=== PATIENT | male | born 1975 | race Caucasian/White ===

== ENCOUNTER 2019-05-01 15:57 | Emergency (ER) | payer MEDICARE, MEDICAID, SELFPAY ==
--- NOTE | 2019-05-01 16:05 | XR_ITS ---
WS: [id number] PORTABLE CHEST HISTORY: cp COMPARISON: 02/21/2019 Large-bore dialysis catheter entering through the RIGHT subclavian vein is similar position as the st udy from 02/22/2019. Tips of the catheter in the proximal to mid SVC. The catheter is retracted but s imilar to the prior study. Lungs are clear and well expanded. No pleural effusion or pneumothorax. Cardiac size: Normal. Mediastinum/Aorta: Normal mediastinum. No osseous abnormality seen. XR/XR chest 1V portable [id number] IMPRESSION: Dialysis catheter terminates in the proximal and mid SVC. No pneumonia.
[2019-05-01 16:11] VITALS: BP 140/74; PULSE 89; RESP 20; TEMP 37.4; O2SAT 91; BMI 41.1
--- NOTE | 2019-05-01 16:26 | ED_ITS ---
Entered by Trinh Fay, acting as scribe for Florencia Null MD May 01, 2019 15:57 HPI - General Adult General: Chief complaint: General Medical Stated complaint: Chest cath problems Time Seen by Provider: 05/01/19 16:10 Source: patient and family Mode of arrival: ambulatory Limitations: no limitations History of Present Illness: HPI narrative: 43-year-old male that states while he was sleeping he broke the hub off of his dialysis catheter in his chest. He states he no longer uses a catheter and uses peritoneal dialysis catheter currently. He states he called his doctor and they recommended to come to have it removed. complaint: need port removed Onset (ago): hour(s) (today) Location: chest Radiation: non-radiation Severity: mild Pain Consistency: constant Relieving factors: none Exacerbating factors: none Associated symptoms: Deny dyspnea, headache(s), nausea, rash or vomiting Treatments prior to arrival: none Review of Systems Const: Denies: fever, chills, body aches or change in appetite Eyes: Denies: blurry vision or eye discomfort ENMT: Denies: throat pain or dental pain Resp: Denies: shortness of breath GI: Denies: abdominal pain, nausea, vomiting or diarrhea : Denies: painful urination Musc: Denies: neck pain or back pain Skin/Breast: Denies: rash Neuro: Denies: headache Psych: Denies: depression Gene/Lymph: Denies: easy bruising All/Imm: Denies: hives PFSH ED PFSH: Statuses (acute, chronic, etc) shown below reflect problem list status as previously entered and may not be historically accurate Social History Smoking and tobacco status: former smoker Physical Exam Const: COMMON NORMALS: no apparent distress, oriented x3 and healthy appearing HENMT: COMMON NORMALS: normocephalic and head/scalp atraumatic HEAD & SCALP: normocephalic and atraumatic Eye: COMMON NORMALS: PERRL and EOMs intact bilaterally PUPIL: Yes PERRL Neck/C-Spine: COMMON NORMALS: full ROM and supple Chest: OTHER: dialysis cathter in place at anterior chest with one hub broken Resp: COMMON NORMALS: normal respiratory effort, no retractions, no use of accessory muscles and clear to auscultation bilaterally AUSCULTATION: clear to auscultation bilaterally Cardio: COMMON NORMALS: regular rate, regular rhythm and no murmurs RATE: regular rate RHYTHM: regular rhythm GI: COMMON NORMALS: normal to inspection, nondistended, normoactive bowel sounds, soft to palpation, non-tender and no masses PALPATION: Yes soft Extremity: COMMON NORMALS: normal to inspection and full ROM Neuro: COMMON NORMALS: oriented x3, moves all extremities and no focal motor deficits Psych: COMMON NORMALS: mental status grossly normal, thought process normal and cooperative THOUGHT PROCESS: normal thought process Skin: COMMON NORMALS: no rashes or lesions noted and no wounds GENERAL SKIN EXAM: no rashes or lesions noted Course ED course: Dialysis catheter right chest was removed. Area was cleaned and 6 cc of lidocaine was used to numb the skin. Hemostats were used to get the cuff of the catheter past the skin and then the catheter was very easily removed. He tolerated the procedure well with no complications. Vital Signs: Vital signs: Vital Signs Temperature 99.3 F 05/01/19 16:11 Pulse Rate 78 05/01/19 16:46 Respiratory Rate 18 05/01/19 16:46 Blood Pressure 158/75 05/01/19 16:46 Pulse Oximetry 98 05/01/19 16:46 MDM - General Adult MDM Narrative: Medical decision making narrative: Patient presents here after breaking the tip off of his dialysis catheter. He has a peritoneal dialysis cath that he now uses and does not need this use anymore. I spoke to Dr. Mcginnis who placed the catheter who recommend just taking it out. I was able to remove without any complications. Patient is well-appearing here and is stable for discharge. Lab Data: Labs: Lab Results 05/01/19 Range/Units 16:26 WBC 11.0 H (4.0-10.0) 10^3/ uL RBC 3.68 L (4.1-5.3) 10^6/u L Hgb 10.4 L (11.7-16.6) g/dL Hct 33.2 L (42.0-52.0) % MCV 90.2 (80-94) fL MCH 28.3 (28.0-34.0) pg MCHC 31.3 (30.0-36.0) g/dL RDW 15.5 H (12.1-15.1) % Plt Count 430 H (130-400) 10^3/c mm MPV 9.2 (7.4-10.4) fL Neut % (Auto) 78.6 % Lymph % (Auto) 7.7 % Early % (Auto) 9.3 % Eos % (Auto) 3.5 % Baso % (Auto) 0.5 % Neut # (Auto) 8.7 H (1.8-7.7) 10^3/u L Lymph # (Auto) 0.9 (0.8-4.8) 10^3/u L Early # (Auto) 1.0 H (0.2-0.9) 10^3/u L Eos # (Auto) 0.4 (0.0-0.8) 10^3/u L Baso # (Auto) 0.1 (0.0-0.1) 10^3/u L Nucleated RBC % (a uto) 0 % Nucleated RBCs # 0.0 /100WBC Imaging Data^: CXR: My impression: no acute abnormality Discharge Plan Discharge Patient Disposition: Home, Self-Care Clinical Impression: Complications, dialysis, catheter, mechanical Qualifiers: Encounter type: initial encounter Qualified Code(s): T82.49XA - Other complication of vascular dialysis catheter, initial encounter Condition: Stable Discharge Orders: Discharge Order (Routine); Ordered 05/01/19 Ordered By: Florencia Null Discharge Diet: Advance as tolerated Discharge Activity: Resume usual activity Patient Instructions: Peritoneal Dialysis Catheter Care (ED) Discharge Date/Time: 05/01/19 16:49 Coding Level of Care Code ED Sport Shoe Spike Assembler for Chg Fwd Exam Problem Focused The documentation recorded by the Sumeet johnson Bridget Annette, accurately reflects the service I personally performed and the decisions made by Tennille blackburn Korby, MD May 01, 2019 15:57
--- NOTE | 2019-05-01 16:29 | XRR_ITS ---
PROCEDURE INFORMATION: Exam: XR Chest, 1 View Exam date and time: 05/01/2019 4:38 PM Age: 43 years old Clinical indication: Device placement; Additional info: Dialysis cath removal TECHNIQUE: Imaging protocol: XR of the chest Views: 1 view. COMPARISON: CR XR chest 1V portable [id number] 05/01/2019 4:07 PM FINDINGS: Lungs: Increased tenting of the right diaphragm with adjacent atelectasis in the right base. The left lung is clear. Pleural space: Unremarkable. No pleural effusion. No pneumothorax. Heart/Mediastinum: Unremarkable. No cardiomegaly. Bones/joints: Unremarkable. XR/XR chest 1V portable [id number] IMPRESSION: Increased right base atelectasis.
[2019-05-01 16:46] VITALS: BP 158/75; PULSE 78; RESP 18; O2SAT 98
[2019-05-01 16:51] LABS: Basophils # 0.1 10^3/uL (0.0-0.1); Basophils % 0.5 %; Eosinophils # 0.4 10^3/uL (0.0-0.8); Eosinophils % 3.5 %; Hematocrit 33.2 % (42.0-52.0); Hemoglobin 10.4 g/dL (11.7-16.6); Lymphocytes # 0.9 10^3/uL (0.8-4.8); Lymphocytes % 7.7 %; Mean Corpuscular HGB Conc 31.3 g/dL (30.0-36.0); Mean Corpuscular Hemoglobin 28.3 pg (28.0-34.0); Mean Corpuscular Volume 90.2 fL (80-94); Mean Platelet Volume 9.2 fL (7.4-10.4); Monocytes % 9.3 %; Neutrophils # 8.7 10^3/uL (1.8-7.7); Neutrophils % 78.6 %; Nucleated Red Blood Cells % 0 %; Platelet Count 430 10^3/cmm (130-400); Red Blood Count 3.68 10^6/uL (4.1-5.3); Red Cell Distribution Width 15.5 % (12.1-15.1)
[2019-05-01 17:44] LABS: Alanine Aminotransferase 18 U/L (0-41); Albumin Level 3.9 g/dL (3.5-5.2); Alkaline Phosphatase 108 IU/L (40-130); Aspartate Amino Transferase 16 U/L (0-40); Blood Urea Nitrogen 77 mg/dL (6-20); Calcium 9.5 mg/dL (8.5-10.5); Carbon Dioxide 23 mmol/L (22-29); Chloride 104 mmol/L (98-107); Globulin 4.1 g/dL (1.3-4.6); Glomerular Filtration Rate 7.8 mL/min (90-130); Glucose 119 mg/dL (74-109); Sodium 141 mmol/L (136-145); Total Bilirubin 0.2 mg/dL (0.15-1.2)
== END 2019-05-01 16:49 | disposition home or self-care (01) ==
PROVIDERS: Emergency Provider Emergency Medicine
DX: T82.49XA Other complication of vascular dialysis catheter, initial encounter (principal); Y84.0 Cardiac catheterization as the cause of abnormal reaction of the patient, or of later complication, without mention of misadventure at the time of the procedure; Z87.891 Personal history of nicotine dependence
CPT/HCPCS: 36415; 71045; 80053; 85025; 99281; 99284

== ENCOUNTER 2019-05-16 11:23 | Outpatient (CLI) | payer MEDICARE, MEDICAID, SELFPAY ==
--- NOTE | 2019-05-16 11:27 | MR_ITS ---
WS: [id number] MRI LEFT KNEE HISTORY: PAIN IN LEFT KNEE COMPARISON: None available. This examination is significantly limited by motion. Patient was unable to remain motionless for this examination. Anterior cruciate ligament: Intact. Posterior cruciate ligament: Intact. Medial collateral ligament: Large amount of fluid surrounding the MCL. No full-thickness tear is iden tified. With this amount of motion partial tear is not excluded. There is more increased fluid at the proximal insertion site which probably represents a partial tear. Posterior lateral corner structures: Intact. Medial menisci: Intact. Normal signal, size and shape. Lateral meniscus: Intact. Normal signal, size and shape. Extensor mechanism: Distal quadriceps tendon and patellar tendons are intact. Fluid and soft tissue: There is a large suprapatellar joint effusion. Mixed signal in the fluid consi stent with hemarthrosis. There is a large amount of soft tissue edema surrounding the knee. No Alonso' s cyst. Osseous and articular structures: Patellofemoral compartment: Patellar is normally positioned. Abnormal signal in the patella. Findings are highly suspicious for patellar fracture without displacement. Abnormal signal extends predominan tly through the inferior medial patella. There is a corresponding marrow signal in the lateral femora l condyle. Patellar retinaculum is torn. Avulsions from the medial surface of the patella. Medial compartment: Small amount of increased signal in the anterior medial femoral condyle. No fract ures. Lateral compartment: Large amount of marrow edema in the lateral femoral condyle extending into the d iaphysis. Additional marrow signal abnormality in the lateral tibial plateau. Cannot exclude fracture involving the lateral tibial plateau based upon the appearance. Also suspicious for cartilage injury . This portion of the knee is significantly limited by motion. MR/MR knee LT wo con* [id number] IMPRESSION: 1. MRI LEFT knee is significantly limited by motion. 2. Marrow edema pattern consistent with transient dislocation of the patella. Acute fracture along the medial inferior patella. 3. Torn medial patellar retinaculum. 4. Suprapatellar hemarthrosis with a large amount of soft tissue edema surroun ding the knee. 5. Large amount of marrow edema in the lateral femoral metaphysis, lateral fem oral condyle and along the tibial plateau surface. 6. Suspicious for fracture involving the lateral tibial plateau with overlying cartilage injury. CT evaluation may be necessary. 7. Partial tear proximal MCL suspected.
== END 2019-05-16 11:24 | disposition home or self-care (01) ==
LOC: RADSHAW 11:23
PROVIDERS: Visit Provider Internal Medicine Nephrology
DX: S82.002A Unspecified fracture of left patella, initial encounter for closed fracture (principal); S83.8X2A Sprain of other specified parts of left knee, initial encounter; X58.XXXA Exposure to other specified factors, initial encounter; R60.9 Edema, unspecified
CPT/HCPCS: 73721

== ENCOUNTER → 2019-06-09 14:53 | Outpatient (BNVA) | payer MEDICARE, MEDICAID, SELFPAY | PROVIDERS: Visit Provider Orthopaedic Surgery | DX: S89.92XA Unspecified injury of left lower leg, initial encounter (principal); X58.XXXA Exposure to other specified factors, initial encounter | CPT/HCPCS: 73560; 73565 ==

== ENCOUNTER 2019-09-08 12:02 | Outpatient (CLI) | payer MEDICARE, MEDICAID, SELFPAY ==
--- NOTE | 2019-09-08 12:12 | XR_ITS ---
WS: [id number] Abdomen series, Flat and upright 09/08/2019 Clinical Data: VISUALIZE PLACEMENT OF PD CATHETER Comparison: None. Findings: No free air is seen beneath the diaphragms. No abnormal intra-abdominal masses or calcifica tions are seen. There is a peritoneal dialysis catheter catheter which appears to be in the central a bdomen. XR/XR abdomen min 2V [id number] Impression: Satisfactory placement of peritoneal dialysis catheter.
== END 2019-09-08 12:03 | disposition home or self-care (01) ==
LOC: RAD 12:06
PROVIDERS: Visit Provider Internal Medicine Nephrology
DX: Z45.2 Encounter for adjustment and management of vascular access device (principal)
CPT/HCPCS: 74019

== ENCOUNTER 2019-09-22 12:06 | Outpatient (CLI) | payer MEDICARE, MEDICAID, SELFPAY ==
--- NOTE | 2019-09-22 12:17 | XRR_ITS ---
PROCEDURE INFORMATION: Exam: XR Abdomen, 2 Views Exam date and time: 09/22/2019 1:12 PM Age: 44 years old Clinical indication: Condition or disease; Kidney or ureter condition; Other: Esrd/dialysis; Prior surgery; Surgery type: Renal dialysis catheter; Additional info: Esrd/dep on renal dialysis/pd catheter obstruction TECHNIQUE: Imaging protocol: XR of the abdomen. Views: 2 Views. COMPARISON: CR XR abdomen min 2V [id number] 09/08/2019 12:19 PM FINDINGS: Gastrointestinal tract: Normal. No bowel dilation. Intraperitoneal space: Normal. No free air. Bones/joints: Unremarkable for age. XR/XR abdomen min 2V [id number] IMPRESSION: No acute findings.
== END 2019-09-22 12:07 | disposition home or self-care (01) ==
LOC: RAD 12:13
PROVIDERS: Visit Provider Internal Medicine Nephrology
DX: Z99.2 Dependence on renal dialysis (principal); T85.691A Other mechanical complication of intraperitoneal dialysis catheter, initial encounter
CPT/HCPCS: 74019

== ENCOUNTER 2019-09-28 08:36 | Day surgery (SDC) | payer MEDICARE, MEDICAID, SELFPAY ==
[2019-09-28] VITALS (12 sets, daily range): BP systolic 120–152; BP diastolic 69–91; PULSE 70–96; RESP 14–22; TEMP 36.2–36.6; O2SAT 92–100
[2019-09-28] MEDS: sodium chloride 0.9% 1,000 ML 30 ML IV (09:03)
--- NOTE | 2019-09-28 09:11 | ANES.PREANE2 ---
Pre-Anesthetic Assessment Pre-Anesthetic Assessment: Height/Weight: Height 1.8 m Weight 120.202 kg Temp Pulse Resp BP Pulse Ox 97.7 F 96 18 120/69 94 09/28/19 08:43 09/28/19 08:43 09/28/19 08:43 09/28/19 08:43 09/28/19 08:43 Preop Diagnosis: Nonfunctioning peritoneal dialysis catheter Proposed Procedure: Operation Date: 09/28/19 09:55 Proposed Procedures p Laparoscopy Diagnostic/17334 [id number] T82.49xa N18.9(Not Applicable) - Jm Mcginnis MD s Peritoneal Catheter Insertion/possible(Not Applicable) - Jm Mcginnis MD s Dialysis Catheter Insertion/possible hemodialysis(Not Applicable) - Jm Mcginnis MD Familial anesthetic complications: None Was Beta Fanny taken within 24 hours: Yes Last intake: Intake Last Liquid Date 09/27/19 Last Liquid Time 23:00 Last Solid Date 09/27/19 Last Solid Time 19:30 Social: Social History: Tobacco and No alcohol Exam: Additional Exam Findings (including area of procedure): wheezes Airway: Cervical ROM: WNL MP: 3 Dentition: Chipped Pulmonary: Pulmonary: None reported CV/HEM: CV/HEM: HTN : : Chronic renal Insufficiency Comments: HTN-induced Hepatic: Hepatic: None reported GI: GI: GERD Metabolic: Metabolic: Morbid obesity Musc/skel: Musc/skel: None reported Neuropsych: Neuropsych: None reported Anesthetic Plan: ASA status: 3 Anesthesia: General Risk of > 500 ml blood loss (7ml/kg in children): No Meds/Allergies Current Medications: Current Medications Generic Name Dose Route Start Last Admin Trade Name Freq PRN Reason Stop Dose Admin Sodium Chloride 1,000 mls @ 30 ml s/hr 09/28/19 08:45 09/28/19 09:03 Sodium Chloride 0.9% IV 09/29/19 08:44 30 mls/hr .Q24H FRANCISCO Administration PFSH Anesthesia PFSH: Medical History (Updated 09/23/19 @ 09:46 by Jm Mcginnis MD) CRF (chronic renal failure) Hypertension Presence of peritoneal dialysis catheter Surgical History (Updated 09/23/19 @ 09:46 by Jm Mcginnis MD) H/O circumcision H/O hand surgery right hand with hardware S/P dialysis catheter insertion Family History Denies family history of Anesthesia complication Bleeding disorder Social History Smoking and tobacco status: former smoker Alcohol intake: never Household members: significant other Marital status: Single Current occupational status: disabled History of recent travel: Yes Details: [place] Out of state: Yes Data Anesthesia Cardiac Studies: No Data to Display
[2019-09-28] MEDS: vancomycin 1,000 MG in sodium chloride 0.9% 250 ML 250 MG IV (09:15)
--- NOTE | 2019-09-28 09:59 | W.PM.OPSUD ---
Surgery/Procedure H&P Update DATE OF PROCEDURE: September 28, 2019 DATE H&P PERFORMED: 09/23/19 H&P UPDATE INFORMATION: I have reviewed H&P completed within last 30 days, I have examined patient prior to procedure and No changes to prior documentation PREOP DIAGNOSIS: Nonfunctioning peritoneal dialysis catheter PLANNED PROCEDURE: Operation Date: 09/28/19 09:55 Proposed Procedures p Laparoscopy Diagnostic/[id number] T82.49xa N18.9(Not Applicable) - Jm Mcginnis MD s Peritoneal Catheter Insertion/possible(Not Applicable) - Jm Mcginnis MD s Dialysis Catheter Insertion/possible hemodialysis(Not Applicable) - Jm Mcgninis MD
[2019-09-28] MEDS: heparin, porcine 1,000 unit/mL INJ 10 mL 1000 UNIT IRRIGATION (11:41)
--- NOTE | 2019-09-28 15:19 | PM.OP ---
Operative Report Date of procedure: September 28, 2019 Pre-op Diagnosis: Nonfunctioning peritoneal dialysis catheter Post-op Diagnosis: Small bowel loop adherent to the peritoneal dialysis catheter resulting in kinking and nonfunctioning of the catheter. Procedure Done: Diagnostic laparoscopy, lysis of adhesions for 40 minutes. Pathology: none sent Surgeon: Jm Mcginnis Anesthesia: MAC and General Estimated blood loss (mL): 25 Condition: stable Disposition: PACU Procedure: The patient was taken the operating room and intubated under general anesthesia after IV antibiotic had been administered. The abdomen was prepped and draped in a sterile manner. Using a 15 blade a 2 cm incision was made in the left upper quadrant and using Veress needle 15 mm of pneumoperitoneum was created. Using Optiview technique the peritoneal cavity was entered, 5 mm port was placed and a 5 mm 30 degrees scope was introduced. 2 separate 5 mm ports were placed in the midclavicular line at the level of the umbilicus and the left lower quadrant under direct visualization. Examination of peritoneal cavity revealed multiple small bowel loops adherent to the peritoneal dialysis catheter as it entered into the peritoneal cavity. Using a combination of laparoscopic scissors and electrocautery, dense adhesions were taken down and small bowel loops were freed up after performing lysis of adhesions for 30 minutes until the catheter was identified. The catheter was dissected free from the surrounding adherent small bowel loops. The catheter was flushed with heparin saline and the small amount of fibrinous material within the catheter which was pushed out using J-wire. After the catheter had been flushed it was attached 100 cc saline bag and there was good inflow and outflow noted. At this point all 3 ports were removed under direct visualization and the skin was closed using 4-0 Monocryl and surgical glue. 0.5% Marcaine was infiltrated at the port sites. The patient was extubated and transferred to recovery room in stable condition.
== END 2019-09-28 13:25 | disposition home or self-care (01) ==
PROVIDERS: Visit Provider Surgery
PROC: (CPT 49320; principal; 2019-09-28 09:55)
DX: T82.49XA Other complication of vascular dialysis catheter, initial encounter (principal); K66.0 Peritoneal adhesions (postprocedural) (postinfection); I10 Essential (primary) hypertension; K21.9 Gastro-esophageal reflux disease without esophagitis; E66.01 Morbid (severe) obesity due to excess calories; Z68.37 Body mass index [BMI] 37.0-37.9, adult; Z87.891 Personal history of nicotine dependence
CPT/HCPCS: 44180; 12345; 94640; 96365; J1644; J2370; J2704; J3010; J3370; J3490; J7030; J7050

== ENCOUNTER 2019-11-08 14:54 | Outpatient (CLI) | payer MEDICARE, MEDICAID, SELFPAY ==
--- NOTE | 2019-11-08 15:00 | XRR_ITS ---
PROCEDURE INFORMATION: Exam: XR Abdomen, 1 View Exam date and time: 11/08/2019 3:19 PM Age: 44 years old Clinical indication: Device placement; Urinary device; Other: Pd catheter obstruction; Patient HX: Unable to obtain history from patient; Additional info: ? Pd catheter obstruction/dependent on renal dialysis TECHNIQUE: Imaging protocol: XR of the abdomen. Views: Frontal supine view of the abdomen. 1 View. COMPARISON: CR XR abdomen min 2V [id number] 09/22/2019 1:00 PM FINDINGS: Tubes, catheters and devices: There is peritoneal dialysis catheter tubing in the right lower abdomen coiled in the pelvis. No disruption or kinking of the tubing is identified. Gastrointestinal tract: Normal. No bowel dilation. Bones/joints: Unremarkable. XR/XR KUB [id number] IMPRESSION: Satisfactory appearance of the peritoneal dialysis catheter tubing.
== END 2019-11-08 14:55 | disposition home or self-care (01) ==
LOC: RAD 14:58
PROVIDERS: Visit Provider Internal Medicine Nephrology
DX: T85.691D Other mechanical complication of intraperitoneal dialysis catheter, subsequent encounter (principal); Z99.2 Dependence on renal dialysis; N18.6 End stage renal disease
CPT/HCPCS: 74018

== ENCOUNTER → 2019-12-05 12:00 | Outpatient (BNVA) | payer MEDICARE, MEDICAID, SELFPAY | PROVIDERS: Visit Provider Internal Medicine | DX: Z11.59 Encounter for screening for other viral diseases (principal) | CPT/HCPCS: 87635 ==

== ENCOUNTER 2019-12-12 08:03 | Day surgery (SDC) | payer MEDICARE, MEDICAID, SELFPAY ==
[2019-12-09 14:20] VITALS: BMI 37.3
[2019-12-12] VITALS (12 sets, daily range): BP systolic 104–220; BP diastolic 63–103; PULSE 54–71; RESP 15–21; TEMP 36.4–37.2; O2SAT 94–100
[2019-12-12] MEDS: sodium chloride 0.9% 1,000 ML 30 ML IV (08:49)
--- NOTE | 2019-12-12 08:50 | W.PM.OPSUD ---
Surgery/Procedure H&P Update DATE OF PROCEDURE: December 12, 2019 DATE H&P PERFORMED: 11/21/19 H&P UPDATE INFORMATION: I have reviewed H&P completed within last 30 days, I have examined patient prior to procedure and No changes to prior documentation PREOP DIAGNOSIS: Nonfunctioning peritoneal dialysis catheter PLANNED PROCEDURE: Operation Date: 12/12/19 09:30 Proposed Procedures p Laparoscopic/open peritoneal dialysis catheter removal(Not Applicable) - Jm Mcginnis MD s Laparoscopic/open peritoneal dialysis catheter placement(Not Applicable) - Jm Mcginnis MD
--- NOTE | 2019-12-12 08:52 | ANES.PREANE2 ---
Pre-Anesthetic Assessment Pre-Anesthetic Assessment: Height/Weight: Height 1.78 m Weight 117.934 kg Temp Pulse Resp BP Pulse Ox 98.9 F 71 16 220/103 98 12/12/19 08:26 12/12/19 08:26 12/12/19 08:26 12/12/19 08:26 12/12/19 08:26 Preop Diagnosis: Nonfunctioning peritoneal dialysis catheter Proposed Procedure: Operation Date: 12/12/19 09:30 Proposed Procedures p Laparoscopic/open peritoneal dialysis catheter removal(Not Applicable) - Jm Mcginnis MD s Laparoscopic/open peritoneal dialysis catheter placement(Not Applicable) - Jm Mcginnis MD Familial anesthetic complications: None Was Beta Fanny taken within 24 hours: Yes Last intake: Intake Last Liquid Date 12/12/19 Last Liquid Time 06:15 Last Solid Date 12/11/19 Last Solid Time 23:30 Social: Social History: Tobacco and No alcohol Exam: Pre-Anes Outpt Exam: alert, oriented x 3, clear to auscultation bilaterally and regular rate & rhythm Airway: Cervical ROM: WNL MP: 4 Dentition: Chipped and Loose (2-3 loose) Additional comments: large neck and tongue CV/HEM: CV/HEM: HTN : : Chronic renal failure GI: GI: GERD Metabolic: Metabolic: DM and Morbid obesity Neuropsych: Neuropsych: None reported Anesthetic Plan: ASA status: 4 Anesthesia: General and MAC Risk of > 500 ml blood loss (7ml/kg in children): No Meds/Allergies Current Medications: Current Medications Generic Name Dose Route Start Last Admin Trade Name Freq PRN Reason Stop Dose Admin Sodium Chloride 1,000 mls @ 30 ml s/hr 12/12/19 08:15 12/12/19 08:49 Sodium Chloride 0.9% IV 12/13/19 08:14 30 mls/hr .Q24H FRANCISCO Administration PFSH Anesthesia PFSH: Medical History (Updated 11/24/19 @ 16:38 by Daly Yeager LPN) CRF (chronic renal failure) Hypertension Presence of peritoneal dialysis catheter Surgical History H/O circumcision H/O hand surgery right hand with hardware S/P dialysis catheter insertion Family History Denies family history of Anesthesia complication Bleeding disorder Social History Smoking and tobacco status: former smoker Alcohol intake: never Household members: significant other Marital status: Single Current occupational status: disabled History of recent travel: Yes Details: [place] Out of state: Yes Data Anesthesia Cardiac Studies: No Data to Display
[2019-12-12 09:48] LABS: Potassium 3.9 mmol/L (3.5-5.1)
[2019-12-12] MEDS: heparin, porcine 1,000 unit/mL INJ 10 mL 10000 UNIT IRRIGATION (11:08)
--- NOTE | 2019-12-12 11:21 | PM.OP ---
Operative Report Date of procedure: December 12, 2019 Pre-op Diagnosis: Nonfunctioning peritoneal dialysis catheter Post-op Diagnosis: Nonfunctioning peritoneal dialysis catheter with significant adhesions around the catheter Procedure Done: Diagnostic laparoscopy with partial removal of existing peritoneal catheter Laparoscopic placement of peritoneal catheter for dialysis Procedure: The patient was taken to the operating room and intubated under general anesthesia after IV antibiotic had been administered. The abdomen was prepped and draped in a sterile manner. Using 15 blade a 1 cm incision was made in the left upper quadrant and a Veress needle introduced to create 15 mm of pneumoperitoneum. Using Optiview technique, a 5 mm port was placed and a 5 mm 30? scope was introduced. Another 5 mm port was placed in the left lower quadrant at the level of the umbilicus and left lower quadrant in the midclavicular line. The existing catheter was noted to be wrapped in omentum and adherent to the colon. Some of the adhesions were taken down but my concern was that it in attempt to free up the catheter there could be small bowel injury and/or bleeding which could result delay restarting his dialysis. The skin incision was therefore extended and the catheter was retracted as much as possible externally and current leaving the distal portion behind. The new pigtail peritoneal dialysis catheter was placed on the abdominal wall and the position marked over the left rectus muscle inferior to the umbilicus, an introducer needle was passed through the abdominal wall to the left of the midline inferior to the umbilicus, guidewire passed through the introducer needle, the needle was removed and a dilator sheath was placed over the guidewire and inner dilator and guidewire was removed. The pigtail catheter was introduced as the peel-away sheath was removed with the tip of the catheter in the pelvis and the cuff within the rectus muscle. The catheter was tunneled proximally to exit in the left upper quadrant. The catheter was attached to a saline bag and there was good inflow and outflow noted. 20 mL of 1:10,000 heparin was injected into the tube. The ports were removed under direct visualization and there was no bleeding from the port sites. The skin at the 5 mm port sites were closed using 4-0 Monocryl and Dermabond. Sterile dressings were applied at the catheter site. The patient was intubated and transferred to recovery room in stable condition.
--- NOTE | 2019-12-12 13:00 | ANE.PACU2 ---
Inpatient post-anesthesia follow up: Airway intact: Yes Vital signs: Temperature 97.7 F Pulse Rate 54 Respiratory Rate 18 Blood Pressure 132/79 Pulse Oximetry 94 Oxygen Delivery Me thod Room Air Oxygen Flow Rate 8 Fraction of Inspir ed Oxygen Hydration adequate: Yes Nausea and vomiting: No Pain level: 3 Mental status: Baseline
== END 2019-12-12 13:20 | disposition home or self-care (01) ==
PROVIDERS: Anesthesiology; Visit Provider Surgery
PROC: (CPT 49324; 2019-12-12 09:30)
PROC: (CPT 49422; 2019-12-12 09:30)
DX: T82.49XA Other complication of vascular dialysis catheter, initial encounter (principal); I12.9 Hypertensive chronic kidney disease with stage 1 through stage 4 chronic kidney disease, or unspecified chronic kidney disease; N18.9 Chronic kidney disease, unspecified; E11.22 Type 2 diabetes mellitus with diabetic chronic kidney disease; E66.01 Morbid (severe) obesity due to excess calories; Z99.2 Dependence on renal dialysis; Z87.891 Personal history of nicotine dependence; Y83.9 Surgical procedure, unspecified as the cause of abnormal reaction of the patient, or of later complication, without mention of misadventure at the time of the procedure; Z68.37 Body mass index [BMI] 37.0-37.9, adult; Z79.82 Long term (current) use of aspirin
CPT/HCPCS: 49324; 12345; 36415; 84132; C1750; J0690; J1644; J2704; J2710; J3010; J3490; J7030

== ENCOUNTER 2020-01-09 08:40 | Emergency (ER) | payer MEDICARE, MEDICAID, SELFPAY ==
[2020-01-09 08:47] VITALS: PULSE 91; RESP 28; TEMP 36.9; BMI 36.0
--- NOTE | 2020-01-09 09:00 | XR_ITS ---
WS: [id number] PORTABLE CHEST HISTORY: syncope COMPARISON: 05/01/2019 Lungs are clear and well expanded. No pleural effusion or pneumothorax. Cardiac size: Normal. Mediastinum/Aorta: Normal mediastinum. No osseous abnormality seen. XR/XR chest 1V portable [id number] IMPRESSION: Unremarkable portable chest.
--- NOTE | 2020-01-09 09:02 | ECG_ITS ---
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 Measurements Intervals [place] Rate: 84 P: 59 NV: 154 QRS: 19 QRSD: 100 T: 145 QT: 411 QTc: 488 Interpretive Statements SINUS RHYTHM MODERATE T-WAVE ABNORMALITY, CONSIDER LATERAL ISCHEMIA [-0.1+ mV T WAVE IN I/aVL/V5/V6] No previous ECG available for comparison Electronically Signed On 01-09-2020 19:49:30 CDT by Qi Brown M.D. [id number]
[2020-01-09 09:06] VITALS: BP 186/105; PULSE 85; RESP 20; O2SAT 95; O2SAT 96
--- NOTE | 2020-01-09 09:06 | W.ED.SOB ---
Documented by User: [email or web address] Fisher 01/09/20 17:17 HPI - SOB/Dyspnea General: Chief Complaint: Shortness of Breath/Dyspnea Stated Complaint: Blood Pressure Time Seen by Provider: 01/09/20 08:56 History of Present Illness: HPI Narrative: 44-year-old male patient presents to the emergency department due to shortness of breath. He reports, panic attack , that started last night. 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 He was sent to the emergency department at the request of his dialysis nurse. Dialysis nurse reports he is noncompliant with peritoneal dialysis, with last peritoneal dialysis treatment 6 weeks ago. Patient states recent peritoneal dialysis replacement approximately 3 weeks ago due to clogging issue. States previous peritoneal dialysis treatment , 01/05/2020. He reports when attempting to hookup to dialysis last night, he developed a panic attack. Denies previous history of anxiety problems, states blood pressure readings at home have ranged 170 over 60s which are normal for him. Patient was hypoxic at time of triage, 88 to 89%. Currently 96% on 2 L nasal cannula. MD elicited complaint: shortness of breath and anxiety Pertinent past history: other (Renal disease) Onset (ago): hour(s) (12) Context: other (Peritoneal dialysis noncompliance) Timing: progressively worsening Severity: moderate Exacerbating factors: lying flat and exertion Relieving factors: rest Known history of: other (Peritoneal dialysis) Associated symptoms: Reports no associated symptoms; Deny abdominal pain, chest congestion, chest pain, diaphoresis, fever(s), hemoptysis, nausea, palpitations or vomiting Treatment prior to arrival: none Review of Systems General: Reports: 10 or more systems reviewed and unremarkable except in HPI and below Const: Reports: fatigue; Denies: fever(s), chills, body aches or diaphoresis Eyes: Denies: blurry vision or eye redness ENMT: Denies: throat pain, dental pain or disequilibrium Card: Denies: chest pain, palpitations or irregular heart rhythm Resp: Reports: dyspnea; Denies: productive cough, non-productive cough, wheezing, pain on inspiration, hemoptysis or chest congestion GI: Denies: abdominal pain, nausea, vomiting or heartburn : Denies: dysuria Musc: Denies: back pain Skin/Breast: Denies: rash or pruritus Neuro: Denies: headache(s), weakness in extremities or behavioral changes Psych: Reports: anxiety and panic attacks (last night); Denies: depression, hopelessness, visual hallucinations, auditory hallucinations, suicidal ideation or homicidal ideation Gene/Lymph: Denies: easy bruising PFSH ED PFSH: Medical History CRF (chronic renal failure) Hypertension Presence of peritoneal dialysis catheter Surgical History H/O circumcision H/O hand surgery right hand with hardware S/P dialysis catheter insertion (12/12/19) Family History Denies family history of Anesthesia complication Bleeding disorder Social History Smoking and tobacco status: former smoker Alcohol intake: never Household members: significant other Marital status: Single Current occupational status: disabled History of recent travel: Yes Details: [place] Out of state: Yes Physical Exam Const: COMMON NORMALS: no acute distress, patient oriented x3, healthy appearing and alert GENERAL APPEARANCE: cooperative, comfortable and well hydrated HENMT: COMMON NORMALS: normocephalic, Normal external nose present and moist oral mucous membranes HEAD & SCALP: normocephalic NOSE: Normal external nose present Eye: COMMON NORMALS: Equal, round and reactive pupils present and EOMs intact bilaterally GENERAL EYE: appearance normal, both eyes and all related structures PUPIL: Yes Equal, round and reactive pupils present Neck/C-Spine: COMMON NORMALS: full ROM and no lymphadenopathy GENERAL: Yes normal visual inspection and Yes trachea midline CERVICAL SPINE: Yes cervical ROM normal Lymph: LYMPHATIC: no lymphadenopathy noted Chest: COMMONS NORMALS: normal inspection of the chest and normal palpation of entire chest wall Resp: COMMON NORMALS: normal respiratory effort and clear to auscultation bilaterally EFFORT & INSPECTION: Yes able to speak in complete sentences AUSCULTATION: clear to auscultation bilaterally Cardio: COMMON NORMALS: regular rate, regular rhythm, S1 normal heart sound present, S2 normal heart sound present and Peripheral pulses 2+ throughout RATE: regular rate RHYTHM: regular rhythm HEART SOUNDS: S1 normal heart sound present and S2 normal heart sound present PERIPHERAL PULSES: Peripheral pulses 2+ throughout GI: COMMON NORMALS: Normal to inspection, nondistended, normoactive bowel sounds present, Soft to palpation and non-tender INSPECTION: Yes normal to inspection PALPATION: Yes Soft to palpation and Yes Other GI palpation findings present (Peritoneal dialysis Catheter located to the left lower quadrant, negative redness, erythema, concerning symptoms of peritonitis) : COMMON NORMALS: Yes no CVA tenderness BLADDER/KIDNEY EXAM: Yes no CVA tenderness Back/Pelvis: COMMON NORMALS: no CVA tenderness and thoracic and lumbar spine normal to inspection Extremity: COMMON NORMALS: normal to inspection and capillary refill normal Neuro: COMMON NORMALS: patient oriented x3 and no focal motor deficits SENSORIUM/ORIENTATION: Yes alert Psych: COMMON NORMALS: mental status grossly normal, Normal thought process present and cooperative APPEARANCE: Yes grossly normal ATTITUDE: Yes calm ACTIVITY/MOTOR BEHAVIOR: Yes appropriate eye contact THOUGHT PROCESS: Normal thought process present THOUGHT CONTENT: Yes Normal thought content present Skin: COMMON NORMALS: no rashes or lesions noted and turgor normal GENERAL SKIN EXAM: no rashes or lesions noted and turgor normal Course Vital Signs: Vital signs: Vital Signs Temperature 98.4 F 01/09/20 08:47 Pulse Rate 83 01/09/20 12:05 Respiratory Rate 19 H 01/09/20 12:05 Blood Pressure 196/98 01/09/20 12:05 Pulse Oximetry 62 L 01/09/20 12:05 MDM - SOB/Dyspnea Lab Data: Labs: Lab Results 01/09/20 01/09/20 01/09/20 Range/Units 09:13 09:13 09:13 WBC 15.0 H (4.0-10.0) 10^3/ uL RBC 3.48 L (4.1-5.3) 10^6/u L Hgb 10.6 L (11.7-16.6) g/dL Hct 33.1 L (42.0-52.0) % MCV 95.1 H (80-94) fL MCH 30.5 (28.0-34.0) pg MCHC 32.0 (30.0-36.0) g/dL RDW 12.7 (12.1-15.1) % Plt Count 439 H (130-400) 10^3/c mm MPV 9.3 (7.4-10.4) fL Neut % (Auto) 81.9 % Lymph % (Auto) 6.6 % [place] % (Auto) 8.4 % Eos % (Auto) 1.7 % Baso % (Auto) 0.6 % Neut # (Auto) 12.30 H (1.8-7.7) 10^3/u L Lymph # (Auto) 1.0 (0.8-4.8) 10^3/u L [place] # (Auto) 1.3 H (0.2-0.9) 10^3/u L Eos # (Auto) 0.3 (0.0-0.8) 10^3/u L Baso # (Auto) 0.1 (0.0-0.1) 10^3/u L Nucleated RBC % (a uto) 0 % Nucleated RBCs # 0.0 /100WBC D-Dimer (0-0.59) ug/mIFE U Specimen Type Sample Site ABG pH (7.35-7.45) ABG pCO2 (35-45) mmHg ABG pO2 (80.0-100.0) mmH g ABG HCO3 (22-26) mmol/L ABG O2 Saturation ABG Base Excess (-2.0-2.0) mmol/ L Shantanu Test A-a O2 Gradient (5-10) mmHg Hematocrit (42-52) % Hgb O2 Saturation (95-100) % Carboxyhemoglobin (0.4-20.1) %THgb Methemoglobin (0.4-1.5) % Total Hemoglobin (14-18) g/dL Ionized Calcium (1.1-1.4) mmol/L O2 Delivery Device O2 Liters/Min % FiO2 % Precision Grinder External ID Sodium 139 (136-145) mmol/L Potassium 4.5 (3.5-5.1) mmol/L Chloride 102 (98-107) mmol/L Carbon Dioxide 20 L (22-29) mmol/L Anion Gap 21.5 H (5-19) BUN 55 H (6-20) mg/dL Creatinine 11.8 H* (0.7-1.2) mg/dL GFR Calculation 4.7 L (90-130) mL/min Glucose 101 (65-115) mg/dL Calculated Osmolal ity 303 H (285-295) mOsm/k g Lactate (0.5-2.2) mmol/L Calcium 9.0 (8.5-10.5) mg/dL Total Bilirubin 0.3 (0.15-1.2) mg/dL AST 10 (0-40) U/L ALT 9 (0-41) U/L Alkaline Phosphata se 99 (40-130) IU/L Troponin T Baselin e 84 H (0-15) ng/L Troponin T [address] [place] (0-15) ng/L Delta Troponin T (0-10) ABS# Total Protein 6.9 (6.6-8.7) g/dL Albumin 3.6 (3.5-5.2) g/dL Globulin 3.3 (1.3-4.6) g/dL Urine Color (Yellow) Urine Appearance (CLEAR) Urine pH (5-7) Ur Specific Gravit y (1.005-1.030) Urine Protein (Negative) Urine Glucose (UA) (Normal) Urine Ketones (Negative) Urine Blood (Negative) Urine Nitrate (Negative) Urine Bilirubin (Negative) Urine Urobilinogen (Negative) mg/dL Ur Leukocyte Juanita ase (Negative) Urine RBC (0-2) /hpf Urine WBC (0-5) /hpf Ur Squamous Epith Cells (0-5) /hpf Amorphous Sediment Urine Bacteria (NONE) /hpf 01/09/20 01/09/20 01/09/20 Range/Units 09:13 09:25 09:39 WBC (4.0-10.0) 10^3/ uL RBC (4.1-5.3) 10^6/u L Hgb (11.7-16.6) g/dL Hct (42.0-52.0) % MCV (80-94) fL MCH (28.0-34.0) pg MCHC (30.0-36.0) g/dL RDW (12.1-15.1) % Plt Count (130-400) 10^3/c mm MPV (7.4-10.4) fL Neut % (Auto) % Lymph % (Auto) % [place] % (Auto) % Eos % (Auto) % Baso % (Auto) % Neut # (Auto) (1.8-7.7) 10^3/u L Lymph # (Auto) (0.8-4.8) 10^3/u L [place] # (Auto) (0.2-0.9) 10^3/u L Eos # (Auto) (0.0-0.8) 10^3/u L Baso # (Auto) (0.0-0.1) 10^3/u L Nucleated RBC % (a uto) % Nucleated RBCs # /100WBC D-Dimer 3.60 H (0-0.59) ug/mIFE U Specimen Type Arterial Sample Site Radial, left ABG pH 7.31 L (7.35-7.45) ABG pCO2 44.4 (35-45) mmHg ABG pO2 73.4 L (80.0-100.0) mmH g ABG HCO3 22.3 (22-26) mmol/L ABG O2 Saturation 96.1 ABG Base Excess -3.9 L (-2.0-2.0) mmol/ L Shantanu Test Pos A-a O2 Gradient 9.1 (5-10) mmHg Hematocrit 32.6 L (42-52) % Hgb O2 Saturation 92.8 L (95-100) % Carboxyhemoglobin 2.3 (0.4-20.1) %THgb Methemoglobin 1.1 (0.4-1.5) % Total Hemoglobin 10.6 L (14-18) g/dL Ionized Calcium 1.2 (1.1-1.4) mmol/L O2 Delivery Device Nc O2 Liters/Min 2.0 % FiO2 28.0 % Precision Grinder External ID Gd Sodium 141.0 (136-145) mmol/L Potassium 4.3 (3.5-5.1) mmol/L Chloride (98-107) mmol/L Carbon Dioxide (22-29) mmol/L Anion Gap (5-19) BUN (6-20) mg/dL Creatinine (0.7-1.2) mg/dL GFR Calculation (90-130) mL/min Glucose 99.0 (65-115) mg/dL Calculated Osmolal ity (285-295) mOsm/k g Lactate 0.5 (0.5-2.2) mmol/L Calcium (8.5-10.5) mg/dL Total Bilirubin (0.15-1.2) mg/dL AST (0-40) U/L ALT (0-41) U/L Alkaline Phosphata se (40-130) IU/L Troponin T Baselin e (0-15) ng/L Troponin T 120 [address] [place] (0-15) ng/L Delta Troponin T (0-10) ABS# Total Protein (6.6-8.7) g/dL Albumin (3.5-5.2) g/dL Globulin (1.3-4.6) g/dL Urine Color (Yellow) Urine Appearance (CLEAR) Urine pH (5-7) Ur Specific Gravit y (1.005-1.030) Urine Protein (Negative) Urine Glucose (UA) (Normal) Urine Ketones (Negative) Urine Blood (Negative) Urine Nitrate (Negative) Urine Bilirubin (Negative) Urine Urobilinogen (Negative) mg/dL Ur Leukocyte Juanita ase (Negative) Urine RBC (0-2) /hpf Urine WBC (0-5) /hpf Ur Squamous Epith Cells (0-5) /hpf Amorphous Sediment Urine Bacteria (NONE) /hpf 01/09/20 01/09/20 Range/Units 10:16 11:20 WBC (4.0-10.0) 10^3/ uL RBC (4.1-5.3) 10^6/u L Hgb (11.7-16.6) g/dL Hct (42.0-52.0) % MCV (80-94) fL MCH (28.0-34.0) pg MCHC (30.0-36.0) g/dL RDW (12.1-15.1) % Plt Count (130-400) 10^3/c mm MPV (7.4-10.4) fL Neut % (Auto) % Lymph % (Auto) % [place] % (Auto) % Eos % (Auto) % Baso % (Auto) % Neut # (Auto) (1.8-7.7) 10^3/u L Lymph # (Auto) (0.8-4.8) 10^3/u L [place] # (Auto) (0.2-0.9) 10^3/u L Eos # (Auto) (0.0-0.8) 10^3/u L Baso # (Auto) (0.0-0.1) 10^3/u L Nucleated RBC % (a uto) % Nucleated RBCs # /100WBC D-Dimer (0-0.59) ug/mIFE U Specimen Type Sample Site ABG pH (7.35-7.45) ABG pCO2 (35-45) mmHg ABG pO2 (80.0-100.0) mmH g ABG HCO3 (22-26) mmol/L ABG O2 Saturation ABG Base Excess (-2.0-2.0) mmol/ L Shantanu Test A-a O2 Gradient (5-10) mmHg Hematocrit (42-52) % Hgb O2 Saturation (95-100) % Carboxyhemoglobin (0.4-20.1) %THgb Methemoglobin (0.4-1.5) % Total Hemoglobin (14-18) g/dL Ionized Calcium (1.1-1.4) mmol/L O2 Delivery Device O2 Liters/Min % FiO2 % Precision Grinder External ID Sodium (136-145) mmol/L Potassium (3.5-5.1) mmol/L Chloride (98-107) mmol/L Carbon Dioxide (22-29) mmol/L Anion Gap (5-19) BUN (6-20) mg/dL Creatinine (0.7-1.2) mg/dL GFR Calculation (90-130) mL/min Glucose (65-115) mg/dL Calculated Osmolal ity (285-295) mOsm/k g Lactate (0.5-2.2) mmol/L Calcium (8.5-10.5) mg/dL Total Bilirubin (0.15-1.2) mg/dL AST (0-40) U/L ALT (0-41) U/L Alkaline Phosphata se (40-130) IU/L Troponin T Baselin e (0-15) ng/L Troponin T [address] [place] 81.79 H (0-15) ng/L Delta Troponin T -2.21 L (0-10) ABS# Total Protein (6.6-8.7) g/dL Albumin (3.5-5.2) g/dL Globulin (1.3-4.6) g/dL Urine Color Yellow (Yellow) Urine Appearance Clear (CLEAR) Urine pH 6 (5-7) Ur Specific Gravit y 1.010 (1.005-1.030) Urine Protein 3+ H (Negative) Urine Glucose (UA) 1+ (Normal) Urine Ketones Negative (Negative) Urine Blood 2+ H (Negative) Urine Nitrate Negative (Negative) Urine Bilirubin Neg (Negative) Urine Urobilinogen Norm (Negative) mg/dL Ur Leukocyte Juanita ase Negative (Negative) Urine RBC Rare (0-2) /hpf Urine WBC 5-10 H (0-5) /hpf Ur Squamous Epith Cells Rare (0-5) /hpf Amorphous Sediment Not Reportable Urine Bacteria 2+ H (NONE) /hpf Imaging Data^: CXR: Radiologist's impression: [address] [address] XRay Report Signed Patient: Venkata Schaefer #: [id number] : 1975Acct#:[id number] Age/Sex: 44 / MADM Date: 01/09/20 Loc: ERRoom/Bed: Attending Dr: Ordering Provider/Ordering MD: Neda More Date of Service: 01/09/20 Procedure(s): XR chest 1V portable [id number] Accession Number(s): [id number] Report Number: [id number] WS: [id number] PORTABLE CHEST HISTORY: syncope COMPARISON: 05/01/2019 Lungs are clear and well expanded. No pleural effusion or pneumothorax. Cardiac size: Normal. Mediastinum/Aorta: Normal mediastinum. No osseous abnormality seen. XR/XR chest 1V portable 52712 IMPRESSION: Unremarkable portable chest. Dictated By:Meagan Mckay DO Signed By:Meagan Mckay DOSigned Date/Time:01/09/20919 DD/ 8 Discharge Plan Discharge Patient Disposition: Left Against Medical Advice Clinical Impression: End stage renal disease, Accelerated hypertension, Suspected 2019-nCoV infection, Hypoxia Condition: Stable Prescriptions: No Action Auryxia 210 mg iron tablet 210 mg PO TID RF: 0 RenaPlex-D 800 mcg-12.5 mg -2,000 unit tablet 1 tab PO DAILY RF: 0 pantoprazole 40 mg tablet,delayed release (DR/EC) 40 mg PO BID RF: 0 metoprolol succinate 50 mg tablet extended release 24 hr 50 mg PO BID RF: 0 nifedipine 60 mg tablet extended release 60 mg PO DAILY RF: 0 escitalopram oxalate 20 mg tablet 20 mg PO BID RF: 0 minoxidil 10 mg tablet 10 mg PO BID RF: 0 furosemide 80 mg tablet 80 mg PO BID RF: 0 metolazone 5 mg Tablet 5 mg PO EVERY OTHER DAY Qty: 0 RF: 0 docusate sodium [Colace] 100 mg capsule 100 mg PO BID Qty: 30 RF: 0 calcitriol 0.5 mcg Capsule 0.5 mcg PO DAILY RF: 0 sodium bicarbonate 650 mg Tablet 1,300 mg PO TID RF: 0 Activity Restrictions/Additional Instructions: You have elected to sign out AMA. Your peritoneal dialysis is no longer working adequately and you require hemodialysis. Additionally you are hypoxic (low oxygen levels). We suspect that you have COVID-19. Recommend that you remain quarantined for the next 14 days. If you worsen you are welcome to return. We have discussed that by refusing to do the recommended cares you are placing your life at risk. These untreated medical conditions may lead to . Discharge Date/Time: 01/09/20 12:06 Coding Level of Care Code ED Windows Consultant for Chg Fwd Exam Comprehensive Documented by User: Edwin Hansen DO 01/09/20 12:07 HPI - SOB/Dyspnea General: Chief Complaint: Shortness of Breath/Dyspnea Stated Complaint: Blood Pressure Time Seen by Provider: 01/09/20 08:56 History of Present Illness: HPI Narrative: 84-year-old male who has end-stage renal disease he evidently is alternated from port peritoneal dialysis and hemodialysis. He felt like he had a hand panic attack today and was dyspneic he did report taking all of his a.m. meds he denies any chest pain or abdominal pain he has had a cough on arrival here he was hypertensive and hypoxic. His hypoxia improved to the mid 90s with 2 L by nasal cannula on room air he was initially in the upper 80s. MD elicited complaint: shortness of breath Pertinent past history: COPD and other (End-stage renal disease hypertension) Onset (ago): hour(s) Severity: moderate Exacerbating factors: exertion Relieving factors: oxygen and rest Known history of: COPD Associated symptoms: Reports chest congestion and cough; Deny abdominal pain, chest pain, diaphoresis, dizziness, extremity pain, fever(s), hemoptysis, lightheadedness, myalgias, nausea, orthopnea, palpitations, paresthesias, polydipsia, polyuria, rash, sense of impending doom, syncope or vomiting Treatment prior to arrival: none Review of Systems Const: Denies: fever(s) or diaphoresis ENMT: Denies: throat pain, ear or mastoid pain, nasal discharge or nasal congestion Card: Denies: chest pain, palpitations, lightheadedness, syncope or orthopnea Resp: Reports: chest congestion; Denies: hemoptysis GI: Denies: abdominal pain, nausea or vomiting : Denies: flank pain, dysuria, urinary frequency or urinary urgency Musc: Denies: extremity pain Skin/Breast: Denies: rash or pruritus Neuro: Denies: dizziness Endo: Denies: polyuria or polydipsia PFSH ED PFSH: Medical History CRF (chronic renal failure) Hypertension Presence of peritoneal dialysis catheter Surgical History H/O circumcision H/O hand surgery right hand with hardware S/P dialysis catheter insertion (12/12/19) Family History Denies family history of Anesthesia complication Bleeding disorder Social History Smoking and tobacco status: former smoker Alcohol intake: never Household members: significant other Marital status: Single Current occupational status: disabled History of recent travel: Yes Details: [place] Out of state: Yes Physical Exam Const: COMMON NORMALS: no acute distress GENERAL APPEARANCE: cooperative and comfortable ORIENTATION/CONSCIOUSNESS: Yes awake, Yes oriented to person, Yes oriented to place and Yes oriented to time HENMT: COMMON NORMALS: normocephalic, atraumatic and hearing grossly normal bilaterally HEAD & SCALP: normocephalic and atraumatic Neck/C-Spine: COMMON NORMALS: no JVD Resp: AUSCULTATION: crackles and diminished lung sounds Cardio: COMMON NORMALS: no JVD, regular rate, regular rhythm and No murmurs present (Cardio) RATE: regular rate RHYTHM: regular rhythm GI: COMMON NORMALS: Soft to palpation and No hepatosplenomegaly present AUSCULTATION: Yes normoactive bowel sounds PALPATION: Yes Soft to palpation, No Tenderness to palpation present (GI), No Guarding due to palpation present (GI) and Yes No hepatosplenomegaly present Extremity: COMMON NORMALS: normal to inspection, capillary refill normal, no clubbing, cyanosis or edema, no calf tenderness and no pedal edema Neuro: SENSORIUM/ORIENTATION: Yes oriented to person, Yes oriented to place and Yes oriented to time Skin: COMMON NORMALS: no rashes or lesions noted GENERAL SKIN EXAM: no rashes or lesions noted Course Vital Signs: Vital signs: Vital Signs Temperature 98.4 F 01/09/20 08:47 Pulse Rate 83 01/09/20 12:05 Respiratory Rate 19 H 01/09/20 12:05 Blood Pressure 196/98 01/09/20 12:05 Pulse Oximetry 62 L 01/09/20 12:05 MDM - SOB/Dyspnea MDM Narrative: Medical decision making narrative: Patient is in acute renal failure and is hypoxic. I recommend that he be admitted for hemodialysis further evaluation of his shortness of breath including the potential for the patient to have COVID-19 infection. Initially both the nurse practitioner and I seen the patient the nurse practitioner had been working him up under my supervision. He was refusing a COVID-19 infection and refusing to be admitted I went to talk to the patient and he continues to refuse. He flat out refuses to listen to any advice that we give him explained to him the rationale for the recommendation. Also explained to him that if he does not get these things treated he may further deteriorate which could lead to he expressed understanding of this and regardless only wishes to have a shot for his blood pressure and wants to leave. Patient will sign out AMA. Lab Data: Labs: Lab Results 01/09/20 01/09/20 01/09/20 Range/Units 09:13 09:13 09:13 WBC 15.0 H (4.0-10.0) 10^3/ uL RBC 3.48 L (4.1-5.3) 10^6/u L Hgb 10.6 L (11.7-16.6) g/dL Hct 33.1 L (42.0-52.0) % MCV 95.1 H (80-94) fL MCH 30.5 (28.0-34.0) pg MCHC 32.0 (30.0-36.0) g/dL RDW 12.7 (12.1-15.1) % Plt Count 439 H (130-400) 10^3/c mm MPV 9.3 (7.4-10.4) fL Neut % (Auto) 81.9 % Lymph % (Auto) 6.6 % [place] % (Auto) 8.4 % Eos % (Auto) 1.7 % Baso % (Auto) 0.6 % Neut # (Auto) 12.30 H (1.8-7.7) 10^3/u L Lymph # (Auto) 1.0 (0.8-4.8) 10^3/u L [place] # (Auto) 1.3 H (0.2-0.9) 10^3/u L Eos # (Auto) 0.3 (0.0-0.8) 10^3/u L Baso # (Auto) 0.1 (0.0-0.1) 10^3/u L Nucleated RBC % (a uto) 0 % Nucleated RBCs # 0.0 /100WBC D-Dimer (0-0.59) ug/mIFE U Specimen Type Sample Site ABG pH (7.35-7.45) ABG pCO2 (35-45) mmHg ABG pO2 (80.0-100.0) mmH g ABG HCO3 (22-26) mmol/L ABG O2 Saturation ABG Base Excess (-2.0-2.0) mmol/ L Shantanu Test A-a O2 Gradient (5-10) mmHg Hematocrit (42-52) % Hgb O2 Saturation (95-100) % Carboxyhemoglobin (0.4-20.1) %THgb Methemoglobin (0.4-1.5) % Total Hemoglobin (14-18) g/dL Ionized Calcium (1.1-1.4) mmol/L O2 Delivery Device O2 Liters/Min % FiO2 % Precision Grinder External ID Sodium 139 (136-145) mmol/L Potassium 4.5 (3.5-5.1) mmol/L Chloride 102 (98-107) mmol/L Carbon Dioxide 20 L (22-29) mmol/L Anion Gap 21.5 H (5-19) BUN 55 H (6-20) mg/dL Creatinine 11.8 H* (0.7-1.2) mg/dL GFR Calculation 4.7 L (90-130) mL/min Glucose 101 (65-115) mg/dL Calculated Osmolal ity 303 H (285-295) mOsm/k g Lactate (0.5-2.2) mmol/L Calcium 9.0 (8.5-10.5) mg/dL Total Bilirubin 0.3 (0.15-1.2) mg/dL AST 10 (0-40) U/L ALT 9 (0-41) U/L Alkaline Phosphata se 99 (40-130) IU/L Troponin T Baselin e 84 H (0-15) ng/L Troponin T [address] [place] (0-15) ng/L Delta Troponin T (0-10) ABS# Total Protein 6.9 (6.6-8.7) g/dL Albumin 3.6 (3.5-5.2) g/dL Globulin 3.3 (1.3-4.6) g/dL Urine Color (Yellow) Urine Appearance (CLEAR) Urine pH (5-7) Ur Specific Gravit y (1.005-1.030) Urine Protein (Negative) Urine Glucose (UA) (Normal) Urine Ketones (Negative) Urine Blood (Negative) Urine Nitrate (Negative) Urine Bilirubin (Negative) Urine Urobilinogen (Negative) mg/dL Ur Leukocyte Juanita ase (Negative) Urine RBC (0-2) /hpf Urine WBC (0-5) /hpf Ur Squamous Epith Cells (0-5) /hpf Amorphous Sediment Urine Bacteria (NONE) /hpf 01/09/20 01/09/20 01/09/20 Range/Units 09:13 09:25 09:39 WBC (4.0-10.0) 10^3/ uL RBC (4.1-5.3) 10^6/u L Hgb (11.7-16.6) g/dL Hct (42.0-52.0) % MCV (80-94) fL MCH (28.0-34.0) pg MCHC (30.0-36.0) g/dL RDW (12.1-15.1) % Plt Count (130-400) 10^3/c mm MPV (7.4-10.4) fL Neut % (Auto) % Lymph % (Auto) % [place] % (Auto) % Eos % (Auto) % Baso % (Auto) % Neut # (Auto) (1.8-7.7) 10^3/u L Lymph # (Auto) (0.8-4.8) 10^3/u L [place] # (Auto) (0.2-0.9) 10^3/u L Eos # (Auto) (0.0-0.8) 10^3/u L Baso # (Auto) (0.0-0.1) 10^3/u L Nucleated RBC % (a uto) % Nucleated RBCs # /100WBC D-Dimer 3.60 H (0-0.59) ug/mIFE U Specimen Type Arterial Sample Site Radial, left ABG pH 7.31 L (7.35-7.45) ABG pCO2 44.4 (35-45) mmHg ABG pO2 73.4 L (80.0-100.0) mmH g ABG HCO3 22.3 (22-26) mmol/L ABG O2 Saturation 96.1 ABG Base Excess -3.9 L (-2.0-2.0) mmol/ L Shantanu Test Pos A-a O2 Gradient 9.1 (5-10) mmHg Hematocrit 32.6 L (42-52) % Hgb O2 Saturation 92.8 L (95-100) % Carboxyhemoglobin 2.3 (0.4-20.1) %THgb Methemoglobin 1.1 (0.4-1.5) % Total Hemoglobin 10.6 L (14-18) g/dL Ionized Calcium 1.2 (1.1-1.4) mmol/L O2 Delivery Device Nc O2 Liters/Min 2.0 % FiO2 28.0 % [employer] External ID Gd Sodium 141.0 (136-145) mmol/L Potassium 4.3 (3.5-5.1) mmol/L Chloride (98-107) mmol/L Carbon Dioxide (22-29) mmol/L Anion Gap (5-19) BUN (6-20) mg/dL Creatinine (0.7-1.2) mg/dL GFR Calculation (90-130) mL/min Glucose 99.0 (65-115) mg/dL Calculated Osmolal ity (285-295) mOsm/k g Lactate 0.5 (0.5-2.2) mmol/L Calcium (8.5-10.5) mg/dL Total Bilirubin (0.15-1.2) mg/dL AST (0-40) U/L ALT (0-41) U/L Alkaline Phosphata se (40-130) IU/L Troponin T Baselin e (0-15) ng/L Troponin T 120 Min [place] (0-15) ng/L Delta Troponin T (0-10) ABS# Total Protein (6.6-8.7) g/dL Albumin (3.5-5.2) g/dL Globulin (1.3-4.6) g/dL Urine Color (Yellow) Urine Appearance (CLEAR) Urine pH (5-7) Ur Specific Gravit y (1.005-1.030) Urine Protein (Negative) Urine Glucose (UA) (Normal) Urine Ketones (Negative) Urine Blood (Negative) Urine Nitrate (Negative) Urine Bilirubin (Negative) Urine Urobilinogen (Negative) mg/dL Ur Leukocyte Juanita ase (Negative) Urine RBC (0-2) /hpf Urine WBC (0-5) /hpf Ur Squamous Epith Cells (0-5) /hpf Amorphous Sediment Urine Bacteria (NONE) /hpf 01/09/20 01/09/20 Range/Units 10:16 11:20 WBC (4.0-10.0) 10^3/ uL RBC (4.1-5.3) 10^6/u L Hgb (11.7-16.6) g/dL Hct (42.0-52.0) % MCV (80-94) fL MCH (28.0-34.0) pg MCHC (30.0-36.0) g/dL RDW (12.1-15.1) % Plt Count (130-400) 10^3/c mm MPV (7.4-10.4) fL Neut % (Auto) % Lymph % (Auto) % [place] % (Auto) % Eos % (Auto) % Baso % (Auto) % Neut # (Auto) (1.8-7.7) 10^3/u L Lymph # (Auto) (0.8-4.8) 10^3/u L [place] # (Auto) (0.2-0.9) 10^3/u L Eos # (Auto) (0.0-0.8) 10^3/u L Baso # (Auto) (0.0-0.1) 10^3/u L Nucleated RBC % (a uto) % Nucleated RBCs # /100WBC D-Dimer (0-0.59) ug/mIFE U Specimen Type Sample Site ABG pH (7.35-7.45) ABG pCO2 (35-45) mmHg ABG pO2 (80.0-100.0) mmH g ABG HCO3 (22-26) mmol/L ABG O2 Saturation ABG Base Excess (-2.0-2.0) mmol/ L Shantanu Test A-a O2 Gradient (5-10) mmHg Hematocrit (42-52) % Hgb O2 Saturation (95-100) % Carboxyhemoglobin (0.4-20.1) %THgb Methemoglobin (0.4-1.5) % Total Hemoglobin (14-18) g/dL Ionized Calcium (1.1-1.4) mmol/L O2 Delivery Device O2 Liters/Min % FiO2 % Precision Grinder External ID Sodium (136-145) mmol/L Potassium (3.5-5.1) mmol/L Chloride (98-107) mmol/L Carbon Dioxide (22-29) mmol/L Anion Gap (5-19) BUN (6-20) mg/dL Creatinine (0.7-1.2) mg/dL GFR Calculation (90-130) mL/min Glucose (65-115) mg/dL Calculated Osmolal ity (285-295) mOsm/k g Lactate (0.5-2.2) mmol/L Calcium (8.5-10.5) mg/dL Total Bilirubin (0.15-1.2) mg/dL AST (0-40) U/L ALT (0-41) U/L Alkaline Phosphata se (40-130) IU/L Troponin T Baselin e (0-15) ng/L Troponin T [address] [place] 81.79 H (0-15) ng/L Delta Troponin T -2.21 L (0-10) ABS# Total Protein (6.6-8.7) g/dL Albumin (3.5-5.2) g/dL Globulin (1.3-4.6) g/dL Urine Color Yellow (Yellow) Urine Appearance Clear (CLEAR) Urine pH 6 (5-7) Ur Specific Gravit y 1.010 (1.005-1.030) Urine Protein 3+ H (Negative) Urine Glucose (UA) 1+ (Normal) Urine Ketones Negative (Negative) Urine Blood 2+ H (Negative) Urine Nitrate Negative (Negative) Urine Bilirubin Neg (Negative) Urine Urobilinogen Norm (Negative) mg/dL Ur Leukocyte Juanita ase Negative (Negative) Urine RBC Rare (0-2) /hpf Urine WBC 5-10 H (0-5) /hpf Ur Squamous Epith Cells Rare (0-5) /hpf Amorphous Sediment Not Reportable Urine Bacteria 2+ H (NONE) /hpf Discharge Plan Discharge Patient Disposition: Left Against Medical Advice Clinical Impression: End stage renal disease, Accelerated hypertension, Suspected 2019-nCoV infection, Hypoxia Condition: Stable Prescriptions: No Action Auryxia 210 mg iron tablet 210 mg PO TID RF: 0 RenaPlex-D 800 mcg-12.5 mg -2,000 unit tablet 1 tab PO DAILY RF: 0 pantoprazole 40 mg tablet,delayed release (DR/EC) 40 mg PO BID RF: 0 metoprolol succinate 50 mg tablet extended release 24 hr 50 mg PO BID RF: 0 nifedipine 60 mg tablet extended release 60 mg PO DAILY RF: 0 escitalopram oxalate 20 mg tablet 20 mg PO BID RF: 0 minoxidil 10 mg tablet 10 mg PO BID RF: 0 furosemide 80 mg tablet 80 mg PO BID RF: 0 metolazone 5 mg Tablet 5 mg PO EVERY OTHER DAY Qty: 0 RF: 0 docusate sodium [Colace] 100 mg capsule 100 mg PO BID Qty: 30 RF: 0 calcitriol 0.5 mcg Capsule 0.5 mcg PO DAILY RF: 0 sodium bicarbonate 650 mg Tablet 1,300 mg PO TID RF: 0 Activity Restrictions/Additional Instructions: You have elected to sign out AMA. Your peritoneal dialysis is no longer working adequately and you require hemodialysis. Additionally you are hypoxic (low oxygen levels). We suspect that you have COVID-19. Recommend that you remain quarantined for the next 14 days. If you worsen you are welcome to return. We have discussed that by refusing to do the recommended cares you are placing your life at risk. These untreated medical conditions may lead to . Discharge Date/Time: 01/09/20 12:06 Coding Level of Care Code ED Windows Consultant for Shilpa Fwd Exam Comprehensive
[2020-01-09 09:34] LABS: Basophils # 0.1 10^3/uL (0.0-0.1); Basophils % 0.6 %; Eosinophils # 0.3 10^3/uL (0.0-0.8); Eosinophils % 1.7 %; Hematocrit 33.1 % (42.0-52.0); Hemoglobin 10.6 g/dL (11.7-16.6); Lymphocytes % 6.6 %; Mean Corpuscular Hemoglobin 30.5 pg (28.0-34.0); Mean Corpuscular Volume 95.1 fL (80-94); Mean Platelet Volume 9.3 fL (7.4-10.4); Monocytes # 1.3 10^3/uL (0.2-0.9); Monocytes % 8.4 %; Neutrophils % 81.9 %; Nucleated Red Blood Cells % 0 %; Platelet Count 439 10^3/cmm (130-400); Red Blood Count 3.48 10^6/uL (4.1-5.3); Red Cell Distribution Width 12.7 % (12.1-15.1)
[2020-01-09 09:39] VITALS: BP 186/105; PULSE 85; RESP 18; O2SAT 95
--- NOTE | 2020-01-09 09:40 | PC.NURSE ---
Lactic drawn from IV site, taken to lab.
[2020-01-09 09:41] LABS: ABG PCO2 44.4 mmHg (35-45); ABG PH Result 7.31 (7.35-7.45); Alveolar-Arterial Oxygen Gradi 9.1 mmHg (5-10); Arterial Blood Gas Hematocrit 32.6 % (42-52); Base Excess ABG -3.9 mmol/L (-2.0-2.0); Blood Gas Allen Test Pos; Blood Gas Operator Identificat GD; Blood Gas Sample Site Radial, left; Blood Gas Sample Type Arterial; Carboxyhemoglobin 2.3 %THgb (0.4-20.1); HCO3 ABG 22.3 mmol/L (22-26); HGB O2 Sat 92.8 % (95-100); Ionized Calcium Level - ABG 1.2 mmol/L (1.1-1.4); Methemoglobin 1.1 % (0.4-1.5); Oxygen Device NC; Oxygen Saturation ABG 96.1; PO2 ABG 73.4 mmHg (80.0-100.0); Potassium Level - ABG 4.3 mmol/L (3.5-5.0); Total Hemoglobin 10.6 g/dL (14-18)
--- NOTE | 2020-01-09 09:41 | PC.NURSE ---
Read and agree with assessment.
[2020-01-09 09:57] LABS: Alanine Aminotransferase 9 U/L (0-41); Albumin Level 3.6 g/dL (3.5-5.2); Alkaline Phosphatase 99 IU/L (40-130); Anion Gap 21.5 (5-19); Aspartate Amino Transferase 10 U/L (0-40); Blood Urea Nitrogen 55 mg/dL (6-20); Carbon Dioxide 20 mmol/L (22-29); Chloride 102 mmol/L (98-107); Globulin 3.3 g/dL (1.3-4.6); Glomerular Filtration Rate 4.7 mL/min (90-130); Glucose 101 mg/dL (65-115); Osmolality Calculated 303 mOsm/kg (285-295); Potassium 4.5 mmol/L (3.5-5.1); Sodium 139 mmol/L (136-145); Total Bilirubin 0.3 mg/dL (0.15-1.2); Total Protein 6.9 g/dL (6.6-8.7)
[2020-01-09 10:00] LABS: Troponin(5th) Baseline 84 ng/L (0-15)
[2020-01-09 10:11] VITALS: BP 172/97; PULSE 79; RESP 18; O2SAT 96
[2020-01-09 10:29] LABS: Lactate (Lactic Acid level) 0.5 mmol/L (0.5-2.2)
--- NOTE | 2020-01-09 11:02 | ECG_ITS ---
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 Measurements Intervals [place] Rate: 80 P: 57 MO: 164 QRS: 22 QRSD: 91 T: 129 QT: 411 QTc: 477 Interpretive Statements SINUS RHYTHM MODERATE T-WAVE ABNORMALITY, CONSIDER LATERAL ISCHEMIA [-0.1+ mV T WAVE IN I/aVL/V5/V6] Compared to ECG 01/09/2020 09:17:39 No significant changes Electronically Signed On 01-09-2020 20:16:43 CDT by Qi Brown M.D. [id number] f
--- NOTE | 2020-01-09 11:04 | PC.NURSE ---
Pt is refusing to be admitted to hospital and COVID swab.
[2020-01-09 11:06] LABS: Bilirubin Urine Neg (Negative); Blood Urine 2+ (Negative); Glucose Urine UA 1+ (Normal); Ketones Urine Negative (Negative); Nitrate Urine Negative (Negative); Protein Urine 3+ (Negative); Urine Appearance Clear (CLEAR); Urine Color Yellow (Yellow); Urobilinogen Urine Norm (Negative); pH Urine 6 (5-7)
[2020-01-09 11:07] LABS: Add Urine Culture? Yes; Add Urine Microscopic? YES; Bacteria Urine 2+ /hpf; Leukocyte Esterase Urine Negative (Negative); RBC Urine RARE /hpf (0-2); Squamous Epithelial Cell Urine RARE /hpf (0-5)
[2020-01-09 11:58] LABS: Troponin 5 2HR 81.79 ng/L (0-15); Troponin 5 2HR Delta -2.21 ABS# (0-10)
[2020-01-09 12:05] VITALS: BP 196/98; PULSE 83; RESP 19; O2SAT 62
== END 2020-01-09 12:06 | disposition left against medical advice (07) ==
PROVIDERS: Nurse Practitioner Family; Emergency Provider Family Medicine
DX: I12.0 Hypertensive chronic kidney disease with stage 5 chronic kidney disease or end stage renal disease (principal); N18.6 End stage renal disease; Z20.828 Contact with and (suspected) exposure to other viral communicable diseases; R09.02 Hypoxemia; Z99.2 Dependence on renal dialysis; Z53.21 Procedure and treatment not carried out due to patient leaving prior to being seen by health care provider
CPT/HCPCS: 12345; 36415; 36600; 71045; 80051; 80053; 81001; 82810; 83605; 83986; 84484; 85025; 85378; 87086; 93005; 99283

== ENCOUNTER → 2020-01-18 13:41 | Outpatient (BNVA) | payer MEDICARE, MEDICAID, SELFPAY | PROVIDERS: Visit Provider Surgery | DX: Z11.59 Encounter for screening for other viral diseases (principal); N18.6 End stage renal disease | CPT/HCPCS: 87635 ==

== ENCOUNTER 2020-01-23 06:33 | Day surgery (SDC) | payer MEDICARE, MEDICAID, SELFPAY ==
--- NOTE | 2020-01-23 | SCC_ITS ---
Procedure Done: Placement of 16 [place]ese 23 cm long AshSplit tunneled hemodialysis catheter in the right internal jugular vein Fluoroscopic guided to the potential for placement of catheter 152.1 seconds of fluoroscopic guidance, for a cumulative dose of - mGy, was provided to Dr. Mcginnis by the radiology department. C-arm images of the chest were saved for the patient's permanent record. [facility]
--- NOTE | 2020-01-23 06:59 | W.PM.OPSUD ---
Surgery/Procedure H&P Update DATE OF PROCEDURE: January 23, 2020 DATE H&P PERFORMED: 01/10/20 H&P UPDATE INFORMATION: I have reviewed H&P completed within last 30 days, I have examined patient prior to procedure and No changes to prior documentation PREOP DIAGNOSIS: End-stage renal disease PLANNED PROCEDURE: Operation Date: 01/23/20 08:15 Proposed Procedures p Hemodialysis Catheter Insertion 68249 N18.6(Not Applicable) - Jm Mcginnis MD
[2020-01-23 07:02] VITALS: BP 209/121; PULSE 74; RESP 16; TEMP 37.4; O2SAT 93
[2020-01-23] MEDS: sodium chloride 0.9% 1,000 ML 30 ML IV ×2 (07:08→11:00)
--- NOTE | 2020-01-23 08:12 | ANES.PREANE2 ---
Pre-Anesthetic Assessment Pre-Anesthetic Assessment: Height/Weight: Height 1.78 m Weight 113.398 kg Temp Pulse Resp BP Pulse Ox 99.4 F 74 16 209/121 93 01/23/20 07:02 01/23/20 07:02 01/23/20 07:02 01/23/20 07:02 01/23/20 07:02 Preop Diagnosis: End-stage renal disease Proposed Procedure: Operation Date: 01/23/20 08:15 Proposed Procedures p Hemodialysis Catheter Insertion [id number] N18.6(Not Applicable) - Jm Mcginnis MD Familial anesthetic complications: None Was Beta Fanny taken within 24 hours: Yes Last intake: Intake Last Liquid Date 01/23/20 Last Liquid Time 05:15 Last Solid Date 01/22/20 Last Solid Time 22:00 Social: Social History: Tobacco and No alcohol Exam: Pre-Anes Outpt Exam: alert, oriented x 3, clear to auscultation bilaterally and regular rate & rhythm Airway: Cervical ROM: WNL MP: 4 Dentition: Loose and Other (missing) Additional comments: large neck CV/HEM: CV/HEM: HTN : : Chronic renal failure GI: GI: GERD Metabolic: Metabolic: DM Anesthetic Plan: ASA status: 4 Anesthesia: MAC Risk of > 500 ml blood loss (7ml/kg in children): No Meds/Allergies Current Medications: Current Medications Generic Name Dose Route Start Last Admin Trade Name Freq PRN Reason Stop Dose Admin Sodium Chloride 1,000 mls @ 30 ml s/hr 01/23/20 07:00 01/23/20 07:08 Sodium Chloride 0.9% IV 01/24/20 06:59 30 mls/hr .Q24H FRANCISCO Administration PFSH Anesthesia PFSH: Medical History (Updated 01/17/20 @ 00:00 by ) CRF (chronic renal failure) Hypertension Presence of peritoneal dialysis catheter Surgical History H/O circumcision H/O hand surgery right hand with hardware S/P dialysis catheter insertion (12/12/19) Family History Denies family history of Anesthesia complication Bleeding disorder Social History Smoking and tobacco status: former smoker Alcohol intake: never Household members: significant other Marital status: Single Current occupational status: disabled History of recent travel: Yes Details: [place] Out of state: Yes Data Anesthesia Cardiac Studies: No Data to Display
--- NOTE | 2020-01-23 09:12 | SC_ITS ---
WS: [id number] Limited AP C-arm image of the right chest is submitted for evaluation. Compared to prior study 2018. A right-sided IJ double lumen dialysis catheter has been placed and probably ends in the expected reg ion of the lower one third of the SVC. The visualized upper right lung appears to be fully expanded. SC/C-arm FL for CVA [id number] IMPRESSION: 1. Right-sided IJ dialysis catheter appearing to be in the expected region of t he lower one third of the SVC.
[2020-01-23] MEDS: vancomycin 1,000 MG in sodium chloride 0.9% 250 ML 250 MG IV (09:21)
[2020-01-23] MEDS: lidocaine 1% INJ 20 mL IM (11:38)
[2020-01-23] MEDS: heparin, porcine 1,000 unit/mL INJ 10 mL 10000 UNIT XX (11:39)
[2020-01-23 11:56] VITALS: BP 131/82; PULSE 73; RESP 16; TEMP 36.3; O2SAT 92
[2020-01-23] MEDS: HYDROcodone-acetaminophen 5-325 mg Tablet 1 TAB PO (12:07)
[2020-01-23 12:10] VITALS: BP 139/88; PULSE 61; RESP 16; TEMP 36.6; O2SAT 94
--- NOTE | 2020-01-23 12:20 | ANE.PACU2 ---
Inpatient post-anesthesia follow up: Airway intact: Yes Vital signs: Temperature 98 F Pulse Rate 61 Respiratory Rate 16 Blood Pressure 139/88 Pulse Oximetry 94 Oxygen Delivery Me thod Room Air Oxygen Flow Rate Fraction of Inspir ed Oxygen Hydration adequate: Yes Nausea and vomiting: No Pain level: 1 Mental status: Baseline
--- NOTE | 2020-01-24 09:10 | PM.OP ---
Operative Report Date of procedure: January 23, 2020 Pre-op Diagnosis: End-stage renal disease requiring hemodialysis Post-op diagnosis: same Procedure Done: Placement of 16 [place] 23 cm long AshSplit tunneled hemodialysis catheter in the right internal jugular vein Fluoroscopic guided to the potential for placement of catheter Ultrasound guidance to access the right internal jugular vein Pathology: none sent Surgeon: Jm Mcginnis Anesthesia: MAC Estimated blood loss (mL): 20 Condition: stable Disposition: PACU Procedure: The patient was taken to the operating room and placed under MAC after IV antibiotic had been administered. The chest and neck were prepped and draped in a sterile manner bilaterally. An ultrasound of the right internal jugular vein revealed patent flow, no thrombus identified. Using introducer needle the internal jugular vein on the right side was accessed and guidewire passed into the right atrium under fluoroscopy. Under fluoroscopy the location for the dialysis catheter was marked. Using 11 blade a skin incision was extended at the vein access site as well as the previously marked location on the right chest wall. The dialysis catheter was attached to the tunneler and passed subcutaneously, exiting at the venous access site. Serial dilators were passed over the guidewire under fluoroscopy. Finally the dilator peel-away sheath was passed over the guidewire and the inner dilator and guidewire was removed and the 23 cm long 16 [place] AshSplit tunneled dialysis catheter was introduced into the right internal jugular vein as the peel-away sheath was removed. The tip of the catheter was noted to be in the right atrium. Both ports of the catheter meri blood and flushed easily. The catheter was sutured to the skin using 2-0 Prolene and the venous access site was closed with 4-0 Monocryl and Dermabond. A total of 5 mL of 1:10,000 heparin was injected into the 2 ports under dialysis catheter. Fluoroscopic guidance and interpretation for passage of guidewire and dilator and placement of catheter in the right atrium.
== END 2020-01-23 12:35 | disposition home or self-care (01) ==
PROVIDERS: Visit Provider Surgery
PROC: (CPT 36558; principal; 2020-01-23 08:15)
DX: N18.6 End stage renal disease (principal); E11.22 Type 2 diabetes mellitus with diabetic chronic kidney disease; I12.0 Hypertensive chronic kidney disease with stage 5 chronic kidney disease or end stage renal disease; K21.9 Gastro-esophageal reflux disease without esophagitis; Z87.891 Personal history of nicotine dependence
CPT/HCPCS: 36558; 12345; 76000; 77001; 96365; C1750; J1644; J2250; J2704; J3370; J3490; J7030; J7050

== ENCOUNTER 2020-04-04 05:33 | Day surgery (SDC) | payer MEDICARE, MEDICAID, SELFPAY ==
[2020-04-03 16:00] VITALS: BMI 33.1
[2020-04-04] VITALS (9 sets, daily range): BP systolic 125–186; BP diastolic 66–87; PULSE 72–77; RESP 15–18; TEMP 37.1–37.6; O2SAT 93–100
[2020-04-04] MEDS: vancomycin 1,000 MG in sodium chloride 0.9% 250 ML 250 MG IV (06:26)
[2020-04-04] MEDS: sodium chloride 0.9% 1,000 ML 30 ML IV (06:27)
--- NOTE | 2020-04-04 06:39 | ANES.PREANE2 ---
Pre-Anesthetic Assessment Pre-Anesthetic Assessment: Height/Weight: Height 1.78 m Weight 104.78 kg Temp Pulse Resp BP Pulse Ox 99.6 F 77 18 186/77 99 04/04/20 06:18 04/04/20 06:18 04/04/20 06:18 04/04/20 06:18 04/04/20 06:18 Preop Diagnosis: nonfunctioning PD catheter Proposed Procedure: Operation Date: 04/04/20 07:10 Proposed Procedures p removal of peritoneal dialysis catheter 75089 n18.9(Not Applicable) - Jm Mcginnis MD Familial anesthetic complications: Anxiety with placement of O2 mask on induction Was Beta Fanny taken within 24 hours: N/A Last intake: Intake Last Liquid Date 04/03/20 Last Liquid Time 20:00 Last Solid Date 04/03/20 Last Solid Time 20:00 Social: Social History: No alcohol and No tobacco Exam: Pre-Anes Outpt Exam: alert, oriented x 3, clear to auscultation bilaterally and regular rate & rhythm Airway: Cervical ROM: WNL MP: 4 Dentition: Chipped, Loose and Other (missing, poor dentition) Additional comments: Very large tongue CV/HEM: CV/HEM: HTN : : Chronic renal failure GI: GI: GERD Metabolic: Metabolic: Morbid obesity Anesthetic Plan: ASA status: 4 Anesthesia: General Risk of > 500 ml blood loss (7ml/kg in children): No Meds/Allergies Current Medications: Current Medications Generic Name Dose Route Start Last Admin Trade Name Freq PRN Reason Stop Dose Admin Vancomycin HCl 1,0 00 mg/ 250 mls @ 250 mls /hr 04/04/20 05:43 04/04/20 06:26 Sodium Chloride IV 04/04/20 06:42 250 mls/hr ONCE ONE Administration Protocol Sodium Chloride 1,000 mls @ 30 ml s/hr 04/04/20 05:45 04/04/20 06:27 Sodium Chloride 0.9% IV 04/05/20 05:44 30 mls/hr .Q24H FRANCISCO Administration PFSH Anesthesia PFSH: Medical History CRF (chronic renal failure) Hypertension Surgical History H/O circumcision H/O hand surgery right hand with hardware Presence of peritoneal dialysis catheter S/P dialysis catheter insertion (12/12/19) Family History Denies family history of Anesthesia complication Bleeding disorder Social History Smoking and tobacco status: former smoker Alcohol intake: never Household members: significant other Marital status: Single Current occupational status: disabled History of recent travel: Yes Details: [place] Out of state: Yes Data Anesthesia Cardiac Studies: No Data to Display
--- NOTE | 2020-04-04 07:00 | P.HP_ITS ---
Same Day Surgery H&P Indication for Procedure/HPI DATE OF PROCEDURE: April 04, 2020 CHIEF COMPLAINT/INDICATIONFOR SURGICAL PROCEDURE: PD catheter removal PREOP DIAGNOSIS: nonfunctioning PD catheter PLANNED PROCEDRUE: Operation Date: 04/04/20 07:10 Proposed Procedures p removal of peritoneal dialysis catheter 99021 n18.9(Not Applicable) - Jm Mcginnis MD Medications/Allergies* Home Medications Medication Instructions Recorded Confirmed Type ferric citrate 210 mg iron tablet 210 mg PO TID 06/09/19 04/04/20 History furosemide 80 mg tablet 80 mg PO BID 06/09/19 04/03/20 History metoprolol succinate 50 mg 50 mg PO BID 06/09/19 04/04/20 History tablet,extended release 24 hr minoxidil 10 mg tablet 10 mg PO BID 06/09/19 04/04/20 History nifedipine 60 mg tablet,extended 60 mg PO DAILY 06/09/19 04/04/20 History release pantoprazole 40 mg tablet,delayed 40 mg PO BID tab 06/09/19 04/03/20 History release vit B,C-folic ac 800 mcg-zinc 12.5 1 tab PO DAILY 06/09/19 04/03/20 History mg-selen-D3 2,000 unit-vit E tablet sodium bicarbonate 1,300 mg PO TID 01/09/20 04/04/20 History ondansetron HCl [Zofran] See Rx Instructions .ROUTE .COMPLEX 01/23/20 04/04/20 History doxazosin 4 mg tablet 4 mg PO DAILY 02/13/20 04/03/20 History lisinopril 40 mg PO DAILY 04/03/20 04/04/20 History Allergies/Adverse Reactions Allergy/AdvReac Type Severity Reaction Status Date / Time Penicillins Allergy ALGY-Hives Verified 04/03/20 15:53 tramadol Allergy ALGY-Hives Verified 04/03/20 15:53 Current Medications: Generic Name Dose Route Start Last Admin Trade Name Freq PRN Reason Stop Dose Admin Sodium Chloride 1,000 mls @ 30 mls/hr 04/04/20 05:45 04/04/20 06:27 Sodium Chloride 0.9% IV 04/05/20 05:44 30 mls/hr .Q24H FRANCISCO Administration Pertinent History/Comorbid Conditions* Medical History (Updated 03/09/20 @ 17:55 by Jm Mcginnis MD) CRF (chronic renal failure) Hypertension Surgical History (Updated 03/09/20 @ 17:55 by Jm Mcginnis MD) H/O circumcision H/O hand surgery right hand with hardware Presence of peritoneal dialysis catheter S/P dialysis catheter insertion (12/12/19) Family History (Updated 09/23/19 @ 09:14 by Daly Yeager LPN) Denies family history of Anesthesia complication Bleeding disorder Social History Smoking and tobacco status: former smoker Alcohol intake: never Household members: significant other Marital status: Single Current occupational status: disabled History of recent travel: Yes Details: [place] Out of state: Yes Pertinent Exam Findings alert, oriented x 3 and regular rate & rhythm Recommendations Surgery/Procedure today Coding Level of Care Code Acute Production Support Developer for Shilpa Phillips
[2020-04-04] MEDS: lidocaine 1% INJ 20 mL IM (07:25)
--- NOTE | 2020-04-04 07:32 | SUR.OPER ---
0728 Dialysis catheter removed entirely and inspected by Dr. Mcginnis. Placed in [facility].
--- NOTE | 2020-04-04 07:52 | PM.OP ---
Operative Report Date of procedure: April 04, 2020 Pre-op Diagnosis: nonfunctioning PD catheter currently on hemodialysis Post-op Findings: Nonfunctioning peritoneal dialysis catheter Procedure Done: Removal of peritoneal dialysis catheter Surgeon: Jm Mcginnis Anesthesia: General Condition: stable Disposition: PACU Procedure: The patient was taken to the operating room and intubated under general anesthesia after IV antibiotic had been administered. The abdomen was prepped and draped in a sterile manner. Using a 15 blade a 2 cm incision was made to the left and inferior to the umbilicus over the left rectus muscle on the existing catheter entry site scar. Subcutaneous tissue was divided using electrocautery and the peritoneal dialysis catheter was identified in the subcutaneous tunnel. Using electrocautery the catheter was dissected from the anterior rectus sheath and the cuff was freed and the distal portion of the catheter was removed from the peritoneal cavity. The catheter was cut at the site of entry into the skin and the tunneled portion was removed after the cuff had been dissected free from the surrounding adhesions. The defect in the anterior rectus sheath was closed using [id number] 0 Vicryl suture. The wound was irrigated with saline and subcutaneous tissues were approximated using interrupted 3-0 Vicryl suture and skin was closed using running subcuticular 4-0 Monocryl suture and surgical glue. The patient was extubated and transferred to recovery room in stable condition.
--- NOTE | 2020-04-04 07:53 | SUR.PHASEI ---
PT TO PACU SLEEPY WITH GOOD RESP NOTED VSS ABD LARGE SOFT WITH EXOFIN TO MID ABD SITE AND BANDAID TO LT LOWER ABD SITE
--- NOTE | 2020-04-04 08:23 | SUR.PHASEI ---
0815 PT TO OPS MORE AWAKE DRINKING COKE WITH NO DIFFICULTY VSS.
[2020-04-04] MEDS: HYDROcodone-acetaminophen 5-325 mg Tablet 1 TAB PO (08:53)
--- NOTE | 2020-04-04 16:08 | ANE.PACU2 ---
Inpatient post-anesthesia follow up: Airway intact: Yes Vital signs: Temperature 99.2 F Pulse Rate 72 Respiratory Rate 18 Blood Pressure 142/78 Pulse Oximetry 94 Oxygen Delivery Me thod Room Air Oxygen Flow Rate 8 Fraction of Inspir ed Oxygen Hydration adequate: Yes Nausea and vomiting: No Pain level: 3 Mental status: Baseline
== END 2020-04-04 09:10 | disposition home or self-care (01) ==
PROVIDERS: Visit Provider Surgery
PROC: (CPT 49422; principal; 2020-04-04 07:00)
DX: T85.611A Breakdown (mechanical) of intraperitoneal dialysis catheter, initial encounter (principal); F41.9 Anxiety disorder, unspecified; I10 Essential (primary) hypertension; K21.9 Gastro-esophageal reflux disease without esophagitis; E66.01 Morbid (severe) obesity due to excess calories; Z68.31 Body mass index [BMI] 31.0-31.9, adult; Z87.891 Personal history of nicotine dependence
CPT/HCPCS: 49422; 12345; J2250; J2704; J3010; J3370; J3490; J7030; J7050

== ENCOUNTER → 2020-08-01 10:46 | Outpatient (BNVA) | payer MEDICARE, MEDICAID, SELFPAY | PROVIDERS: PCP Nurse Practitioner Family; Visit Provider Nurse Practitioner Family | DX: I10 Essential (primary) hypertension (principal); E55.9 Vitamin D deficiency, unspecified; N18.9 Chronic kidney disease, unspecified; Z79.899 Other long term (current) drug therapy; Z13.6 Encounter for screening for cardiovascular disorders | CPT/HCPCS: 80053; 80061; 82306; 83036; 84439; 84443; 85025 ==

== ENCOUNTER → 2020-08-07 14:42 | Outpatient (BNVA) | payer MEDICARE, MEDICAID, SELFPAY | PROVIDERS: PCP Nurse Practitioner Family; Visit Provider Nurse Practitioner Family | DX: J22 Unspecified acute lower respiratory infection (principal); J44.9 Chronic obstructive pulmonary disease, unspecified; R09.02 Hypoxemia; F41.9 Anxiety disorder, unspecified; F32.9 Major depressive disorder, single episode, unspecified | CPT/HCPCS: 71046 ==

== ENCOUNTER → 2020-08-20 14:53 | Outpatient (BNVA) | payer MEDICARE, MEDICAID, SELFPAY | PROVIDERS: PCP Nurse Practitioner Family; Visit Provider Family Medicine | DX: Z01.818 Encounter for other preprocedural examination (principal); I51.7 Cardiomegaly; I10 Essential (primary) hypertension | CPT/HCPCS: 71046; 80053; 83880; 84443; 85025; 85610 ==

== ENCOUNTER → 2020-11-13 10:00 | Outpatient (BNVA) | payer MEDICARE, MEDICAID, SELFPAY | PROVIDERS: PCP Nurse Practitioner Family; Visit Provider Family Medicine | DX: F51.01 Primary insomnia (principal); F41.9 Anxiety disorder, unspecified; F32.9 Major depressive disorder, single episode, unspecified; J44.9 Chronic obstructive pulmonary disease, unspecified; N18.5 Chronic kidney disease, stage 5; I50.30 Unspecified diastolic (congestive) heart failure; I48.91 Unspecified atrial fibrillation; I10 Essential (primary) hypertension | CPT/HCPCS: 85025 ==

== ENCOUNTER → 2020-12-26 11:27 | Outpatient (BNVA) | payer MEDICARE, MEDICAID, SELFPAY | PROVIDERS: PCP Nurse Practitioner Family; Visit Provider Specialist | DX: M25.512 Pain in left shoulder (principal) | CPT/HCPCS: 73030 ==

== ENCOUNTER 2020-12-30 05:12 | Inpatient (IN) | payer MEDICARE, MEDICAID, SELFPAY ==
[2020-12-30] VITALS (60 sets, daily range): BP systolic 138–284; BP diastolic 67–160; PULSE 52–129; RESP 18–37; TEMP 36.5–38.9; O2SAT 15–100; BMI 34.4; BMI 34.1
--- NOTE | 2020-12-30 05:24 | XRR_ITS ---
PROCEDURE INFORMATION: Exam: XR Chest Exam date and time: 12/30/2020 5:24 AM Age: 45 years old Clinical indication: Shortness of breath; Additional info: SOB TECHNIQUE: Imaging protocol: XR of the chest. Views: 1 view. COMPARISON: CR XR chest 2V* [id number] 08/20/2020 3:15 PM FINDINGS: Tubes, catheters and devices: Essentially stable position of right central venous catheter. Lungs: Mild pulmonary vascular congestion. I suspect there is some mild interstitial pulmonary edema. Visible lungs otherwise appear essentially clear. Pleural spaces: No visible pneumothorax. No definite pleural fluid. Heart/Mediastinum: Moderate to severe cardiomegaly, not significantly changed. Bones/joints: No significant acute finding. XR/XR chest 1V portable [id number] IMPRESSION: 1. Mild pulmonary vascular congestion and suspected interstitial pulmonary edema. 2. No definite pneumonia. 3. Other findings discussed above.
--- NOTE | 2020-12-30 05:26 | ECG_ITS ---
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1975 Requested By: Wil Castro Order Number: [id number] Roderick MD: GARRETT JIMENEZ Measurements Intervals [place] Rate: 134 P: NV: QRS: -41 QRSD: 108 T: 94 QT: 288 QTc: 430 Interpretive Statements ATRIAL FIBRILLATION WITH RAPID VENTRICULAR RESPONSE LEFT AXIS DEVIATION [QRS AXIS < -30] ST DEVIATION AND MODERATE T-WAVE ABNORMALITY, CONSIDER LATERAL ISCHEMIA [-0.1+ mV T-WAVE IN I/aVL/V5/V6] Compared to ECG 01/09/2020 11:09:55 Left-axis deviation now present Sinus rhythm no longer present T-wave abnormality still present Possible ischemia still present Electronically Signed On 12-31-2020 20:22:26 CDT by GARRETT JIMENEZ [id number]
[2020-12-30 05:51] LABS: Basophils # 0.2 10^3/uL (0.0-0.1); Eosinophils # 0.3 10^3/uL (0.0-0.8); Eosinophils % 1.8 %; Hematocrit 38.5 % (42.0-52.0); Hemoglobin 11.6 g/dL (11.7-16.6); Lymphocytes # 0.9 10^3/uL (0.8-4.8); Lymphocytes % 5.7 %; Mean Corpuscular HGB Conc 30.1 g/dL (30.0-36.0); Mean Corpuscular Hemoglobin 30.8 pg (28.0-34.0); Mean Corpuscular Volume 102.1 fl (80-94); Mean Platelet Volume 9.1 fL (7.4-10.4); Monocytes # 1.1 10^3/uL (0.2-0.9); Monocytes % 7.1 %; Neutrophils # 13.11 10^3/uL (1.8-7.7); Nucleated Red Blood Cells % 0 %; Platelet Count 388 10^3/cmm (130-400); Red Blood Count 3.77 10^6/uL (4.1-5.3); Red Cell Distribution Width 15.5 % (12.1-15.1); White Blood Count 15.6 10^3/uL (4.0-10.0)
[2020-12-30] MEDS: midazolam 1 mg/mL INJ 2 mL 2 MG IVP (05:52)
[2020-12-30] MEDS: nicardipine 20 MG/200 ML PREMIX 100 MG IV (05:56)
[2020-12-30] MEDS: labetalol 5 mg/mL SDV 20mL 20 MG IVP (05:57)
[2020-12-30 06:02] LABS: ABG PCO2 58.1 mmHg (35-45); ABG PH Result 7.34 (7.35-7.45); Arterial Blood Gas Hematocrit 34.9 % (42-52); Base Excess ABG 4.6 mmol/L (-2.0-2.0); Blood Gas Allen Test Pos; Blood Gas Sample Site Radial, right; Blood Gas Sample Type Arterial; Carboxyhemoglobin 1.9 %THgb (0.4-20.1); HCO3 ABG 31.6 mmol/L (22-26); HGB O2 Sat 97.1 % (95-100); Methemoglobin 0.7 % (0.4-1.5); Oxygen Device NRB; Total Hemoglobin 11.4 g/dL (14-18)
[2020-12-30 06:11] LABS: Lactic Sepsis W/Reflex 1.2 mmol/L (0.5-2.2); Troponin(5th) Baseline 64 ng/L (0-15)
[2020-12-30 06:18] LABS: Alanine Aminotransferase 12 U/L (0-41); Albumin Level 3.8 g/dL (3.5-5.2); Alkaline Phosphatase 119 IU/L (40-130); Anion Gap 20.6 (5-19); Aspartate Amino Transferase 18 U/L (0-40); Blood Urea Nitrogen 33 mg/dL (6-20); Calcium 9.1 mg/dL (8.5-10.5); Carbon Dioxide 28 mmol/L (22-29); Chloride 92 mmol/L (98-107); Globulin 4.7 g/dL (1.3-4.6); Glomerular Filtration Rate 7.6 mL/min (90-130); Glucose 116 mg/dL (65-115); Osmolality Calculated 288 mOsm/kg (285-295); Potassium 5.6 mmol/L (3.5-5.1); Sodium 135 mmol/L (136-145); Total Bilirubin 0.4 mg/dL (0.15-1.2); Total Protein 8.5 g/dL (6.6-8.7)
--- NOTE | 2020-12-30 06:48 | W.ED.SOB ---
HPI - SOB/Dyspnea General: Chief Complaint: Shortness of Breath/Dyspnea Stated Complaint: SOB Time Seen by Provider: 12/30/20 05:17 History of Present Illness: HPI Narrative: 45-year-old male dialysis patient here with acute onset shortness of breath. He notes his blood pressure is always high. He denies fever or increased cough. He had does have some increased leg swelling. He is complaining somewhat of chest pain. His oxygen saturation was 65% on EMS arrival. He refused CPAP and BiPAP. He was placed on oxygen, with improvement in his oxygenation status to some degree. However, he presents with O2 sats in the mid 70s on nasal cannula supplementation with respiratory rate in the 40s. He is diaphoretic. MD elicited complaint: shortness of breath and chest pain Pertinent past history: other Onset (ago): hour(s) Context: other Timing: constant and progressively worsening Severity: severe Exacerbating factors: lying flat and exertion Relieving factors: oxygen Known history of: other Associated symptoms: Reports chest pain, nausea and sense of impending doom; Deny abdominal pain, chest congestion, cough, fever(s) or hemoptysis Treatment prior to arrival: oxygen Review of Systems Const: Denies: fever(s) Card: Reports: chest pain Resp: Denies: hemoptysis or chest congestion GI: Reports: nausea; Denies: abdominal pain PFSH ED PFSH: Medical History Anxiety and depression COPD (chronic obstructive pulmonary disease) CRF (chronic renal failure) Encounter to establish care GERD (gastroesophageal reflux disease) Hypertension Hypertension screen Hypoxia Insomnia Lower respiratory tract infection Sebaceous cyst Vitamin D deficiency Surgical History H/O circumcision H/O hand surgery right hand with hardware S/P dialysis catheter insertion (12/12/19) Removed on 04/04/2020 S/P hemodialysis catheter insertion Family History Denies family history of Anesthesia complication Bleeding disorder Social History Smoking and tobacco status: former smoker Alcohol intake: never Household members: significant other Marital status: Single Current occupational status: disabled History of recent travel: Yes Details: [place] Out of state: Yes Physical Exam Const: GENERAL APPEARANCE: in distress, anxious and ill appearing NUTRITIONAL APPEARANCE: obese ORIENTATION/CONSCIOUSNESS: Yes awake, Yes oriented to person, Yes oriented to place and Yes oriented to time HENMT: COMMON NORMALS: normocephalic and atraumatic HEAD & SCALP: normocephalic and atraumatic Eye: COMMON NORMALS: Equal, round and reactive pupils present and EOMs intact bilaterally PUPIL: Yes Equal, round and reactive pupils present Chest: COMMONS NORMALS: normal inspection of the chest Resp: EFFORT & INSPECTION: Yes tachypneic, Yes respiratory distress, Yes retractions and Yes uses accessory muscles AUSCULTATION: rales and diminished lung sounds Cardio: RATE: tachycardic RHYTHM: abnormal rhythm irregularly irregular GI: COMMON NORMALS: Normal to inspection, nondistended, normoactive bowel sounds present and Soft to palpation PALPATION: Yes Soft to palpation Neuro: SENSORIUM/ORIENTATION: Yes oriented to person, Yes oriented to place and Yes oriented to time Skin: NARRATIVE SKIN EXAM: [facility] Course Consultations: Consultation #1: [place] Time: 07:28 Vital Signs: Vital signs: Vital Signs Temperature 102.1 F H 12/30/20 05:27 Pulse Rate 101 H 12/30/20 06:30 Respiratory Rate 24 H 12/30/20 06:30 Blood Pressure 159/87 12/30/20 06:30 Pulse Oximetry 96 12/30/20 06:30 MDM - SOB/Dyspnea MDM Narrative: Medical decision making narrative: 45-year-old male with a history of atrial fibrillation and end-stage renal disease on dialysis. He presents with acute onset shortness of breath that is severe. He was placed on 100% nonrebreather as he was refusing BiPAP he was given 2 mg of Ativan and 1 mg increments for anxiety. He had an initial blood pressure of 284/160. He was given 20 mg of labetalol and started on a nicardipine drip. His blood pressure is now 165/87. His heart rate is down from the 150s to 92. His oxygen saturation is 95% on 5 L nasal cannula O2. He is feeling much better, and is much more comfortable. He does have a temperature of 102 and a white count of 15.6. Checks x-ray he has the appearance of pulmonary edema without effusions and cardiomegaly. The patient states that he had Covid a month ago. He will need to come in for continued aggressive blood pressure management, diuresis, and oxygen supplementation. He will be covered with vancomycin and cefepime. Lab Data: Labs: Lab Results 12/30/20 12/30/20 12/30/20 05:24 05:30 05:30 WBC 15.6 10^3/uL H 10 ^3/uL (4.0-10.0) RBC 3.77 10^6/uL L 10 ^6/uL (4.1-5.3) Hgb 11.6 g/dL L g/dL (11.7-16.6) Hct 38.5 % L % (42.0-52.0) MCV 102.1 fl H fl (80-94) MCH 30.8 pg pg (28.0-34.0) MCHC 30.1 g/dL g/dL (30.0-36.0) RDW 15.5 % H % (12.1-15.1) Plt Count 388 10^3/cmm 10^3 /cmm (130-400) MPV 9.1 fL fL (7.4-10.4) Neut % (Auto) 84.0 % % Lymph % (Auto) 5.7 % % [place] % (Auto) 7.1 % % Eos % (Auto) 1.8 % % Baso % (Auto) 1.0 % % Neut # (Auto) 13.11 10^3/uL H 1 0^3/uL (1.8-7.7) Lymph # (Auto) 0.9 10^3/uL 10^3/ uL (0.8-4.8) [place] # (Auto) 1.1 10^3/uL H 10^ 3/uL (0.2-0.9) Eos # (Auto) 0.3 10^3/uL 10^3/ uL (0.0-0.8) Baso # (Auto) 0.2 10^3/uL H 10^ 3/uL (0.0-0.1) Nucleated RBC % (a uto) 0 % % Nucleated RBCs # 0.0 /100WBC /100W BC Specimen Type Arterial Sample Site Radial, right ABG pH 7.34 L (7.35-7.45) ABG pCO2 58.1 mmHg H mmHg (35-45) ABG pO2 155.0 mmHg H mmHg (80.0-100.0) ABG HCO3 31.6 mmol/L H mmo l/L (22-26) ABG Base Excess 4.6 mmol/L H mmol /L (-2.0-2.0) Shantanu Test Pos Hematocrit 34.9 % L % (42-52) Hgb O2 Saturation 97.1 % % (95-100) Carboxyhemoglobin 1.9 %THgb %THgb (0.4-20.1) Methemoglobin 0.7 % % (0.4-1.5) Total Hemoglobin 11.4 g/dL L g/dL (14-18) O2 Delivery Device Nrb O2 Liters/Min 15.0 % % Laundry Clerk ID ellpe Sodium 135 mmol/L L mmol /L (136-145) Potassium 5.6 mmol/L H mmol /L (3.5-5.1) Chloride 92 mmol/L L mmol/ L (98-107) Carbon Dioxide 28 mmol/L mmol/L (22-29) Anion Gap 20.6 H (5-19) BUN 33 mg/dL H mg/dL (6-20) Creatinine 7.7 mg/dL H* mg/d L (0.7-1.2) GFR Calculation 7.6 mL/min L mL/m in (90-130) Glucose 116 mg/dL H mg/dL (65-115) Calculated Osmolal ity 288 mOsm/kg mOsm/ kg (285-295) Lactic Acid Calcium 9.1 mg/dL mg/dL (8.5-10.5) Total Bilirubin 0.4 mg/dL mg/dL (0.15-1.2) AST 18 U/L U/L (0-40) ALT 12 U/L U/L (0-41) Alkaline Phosphata se 119 IU/L IU/L (40-130) Troponin T Baselin e NT-Pro-B Natriuret Pep > 56002 pg/mL H p g/mL (0-125) Total Protein 8.5 g/dL g/dL (6.6-8.7) Albumin 3.8 g/dL g/dL (3.5-5.2) Globulin 4.7 g/dL H g/dL (1.3-4.6) Amorphous Sediment 12/30/20 12/30/20 12/30/20 05:30 05:30 06:20 WBC RBC Hgb Hct MCV MCH MCHC RDW Plt Count MPV Neut % (Auto) Lymph % (Auto) [place] % (Auto) Eos % (Auto) Baso % (Auto) Neut # (Auto) Lymph # (Auto) [place] # (Auto) Eos # (Auto) Baso # (Auto) Nucleated RBC % (a uto) Nucleated RBCs # Specimen Type Sample Site ABG pH ABG pCO2 ABG pO2 ABG HCO3 ABG Base Excess Shantanu Test Hematocrit Hgb O2 Saturation Carboxyhemoglobin Methemoglobin Total Hemoglobin O2 Delivery Device O2 Liters/Min Laundry Clerk ID Sodium Potassium Chloride Carbon Dioxide Anion Gap BUN Creatinine GFR Calculation Glucose Calculated Osmolal ity Lactic Acid 1.2 mmol/L mmol/L (0.5-2.2) Calcium Total Bilirubin AST ALT Alkaline Phosphata se Troponin T Baselin e 64 ng/L H ng/L (0-15) NT-Pro-B Natriuret Pep Total Protein Albumin Globulin Amorphous Sediment Not Reportable Critical Care Time Critical Care Time: Critical Care Time: Yes Total Critical Care Time: 40 Attestation: This case had a high probability of a clinically significant, sudden, or life threatening deterioration of this patient's condition which required my full and direct attention, intervention and personal management. Discharge Plan Discharge Patient Disposition: Admitted As Inpatient Clinical Impression: Acute respiratory failure with hypoxia, End stage chronic kidney disease Pulmonary edema Qualifiers: Chronicity: acute Qualified Code(s): J81.0 - Acute pulmonary edema Condition: Stable Coding Level of Care Code ED Stem Assembler for [facility] Fwd Exam Detailed
[2020-12-30 07:09] LABS: NT Pro B Type Natriuretic Pept > 70000 pg/mL (0-125)
--- NOTE | 2020-12-30 07:17 | PC.NURSE ---
PT STATED NEED FOR USE OF RESTROOM. NURSE OFFERED PT BEDSIDE COMMODE TO PROMOTE PT SAFETY. PT STATED I'M NOT USING THAT DAMN THING. ITS EMBARRASSING. YOU CAN BRING IT BUT I WONT USE IT. NURSE ASSISTED PT TO RESTROOM.
[2020-12-30 07:34] LABS: Add Urine Culture? No; Bacteria Urine TRACE /hpf; Bilirubin Urine Neg (Negative); Blood Urine Neg (Negative); Glucose Urine UA 1+ (Normal); Ketones Urine Negative (Negative); Leukocyte Esterase Urine Negative (Negative); Nitrate Urine Negative (Negative); Protein Urine 2+ (Negative); Squamous Epithelial Cell Urine RARE /hpf (0-5); Sulfosalicylic Acid Urine Positive (Negative); Urine Appearance Clear (CLEAR); Urine Color Straw (Yellow); Urobilinogen Urine Norm (Negative); WBC Urine 0-4 /hpf (0-5); pH Urine 9 (5-7)
[2020-12-30 07:48] LABS: D Dimer 3.96 ug/mIFEU (0-0.59)
[2020-12-30] MEDS: cefepime 1,000 MG in sodium chloride 0.9% (plus) 50 ML 100 MG IV (08:04)
[2020-12-30] MEDS: acetaminophen 325 mg Tablet 650 MG PO (08:04)
[2020-12-30 08:16] LABS: Troponin 5 2HR 67.45 ng/L (0-15); Troponin 5 2HR Delta 3.45 ABS# (0-10)
[2020-12-30] MEDS: vancomycin 1,000 MG in sodium chloride 0.9% 250 ML 250 MG IV ×2 (08:40→17:05)
--- NOTE | 2020-12-30 10:51 | PC.NURSE ---
med weaned off for blood pressure , related that he is going home this afternoon even if ama after dyialsis. have told both doctors this am even though dialysis cath is not sutured in place and possible infection understand complications and is going to go anyway
--- NOTE | 2020-12-30 10:53 | PM.CONSULT ---
Providers/Reason For Consult Consulting Physician/Specialty*: Nephrology Reason for Consult*: ESRD Attending Physician: Mukesh Salazar Primary Care Provider: HALEY Grace History of Present Illness History of Present Illness Thank you for consultation. Today I had the pleasure reviewing Mr. Schaefer for evaluation and management of end-stage kidney disease. He presented to the emergency room with increasing shortness of breath and increased leg swelling. His oxygen saturation was 65% on EMS arrival. He appears more stable with nasal cannula. Fevers and chills are noted. Chest x-ray demonstrates pulmonary edema without effusions or cardiomegaly. He has been on dialysis now for a couple of years. He is under the care of Dr. Pillai in [place]. Has dialysis on Thursday, Thursday and Thursday. He has a dialysis catheter in his right chest. No purulent/erythema on the exit site. He is currently informing us that he will sign out AGAINST MEDICAL ADVICE after his dialysis today. He did receive a dose of vancomycin and cefepime. Review of Systems General: Reports: ROS unobtainable due to medical condition and ROS unobtainable due to mental status Meds/Allergies Home Medications and Allergies Home Medications Medication Instructions Recorded Confirmed Last Taken Type vit B,C-folic ac 800 mcg-zinc 12.5 1 tab PO DAILY 06/09/19 12/26/20 04/03/20 History mg-selen-D3 2,000 unit-vit E tablet ondansetron HCl [Zofran] See Rx Instructions .ROUTE .COMPLEX 01/23/20 12/26/20 1 Day Ago History ~04/03/20 ondansetron HCl [Zofran] 4 mg PO Q6H PRN #20 tab 04/04/20 12/30/20 Unknown Rx nifedipine 60 mg tablet,extended 60 mg PO BID tab 08/01/20 12/26/20 Unknown History release Home oxygen #1 ea 08/07/20 12/30/20 Unknown Rx ipratropium 0.5 mg-albuterol 3 mg 3 ml INHALATION Q4H PRN #180 ml 08/07/20 12/26/20 Unknown Rx (2.5 mg base)/3 mL nebulization soln nebulizers #1 ea 08/07/20 12/26/20 Unknown Rx hydroxyzine HCl 25 mg tablet 25 mg PO BID PRN 30 Days #60 tab 08/20/20 12/26/20 Unknown Rx budesonide 0.5 mg/2 mL suspension See Rx Instructions .ROUTE 09/20/20 12/26/20 Unknown Rx for nebulization .COMPLEX #60 vial metoprolol succinate 100 mg 150 mg PO DAILY tab 11/12/20 12/30/20 Unknown History tablet,extended release 24 hr sucroferric oxyhydroxide 500 mg 500 mg PO TID 11/12/20 12/26/20 Unknown History chewable tablet hydralazine 50 mg tablet 50 mg PO TID #90 tab 11/22/20 12/30/20 Unknown Rx nifedipine 90 mg tablet,extended 90 mg PO DAILY #30 tab 11/22/20 12/26/20 Unknown Rx release albuterol sulfate 90 mcg/actuation 1 inh INHALATION Q4H PRN #8.5 g 12/28/20 12/30/20 Unknown Rx aerosol inhaler amitriptyline 25 mg tablet 25 mg PO DAILY 30 Days #30 tab 12/28/20 12/30/20 Unknown Rx budesonide-formoterol HFA 160 2 puff INHALATION BID 30 Days 12/28/20 Unknown Rx mcg-4.5 mcg/actuation aerosol #10.2 g inhaler ramelteon 8 mg tablet 8 mg PO DAILY 30 Days #30 tab 12/28/20 12/30/20 Unknown Rx furosemide 80 mg PO DAILY 12/30/20 12/30/20 Unknown History metolazone 2.5 mg PO DAILY 12/30/20 12/30/20 Unknown History pantoprazole 40 mg PO DAILY 12/30/20 12/30/20 Unknown History Allergies Allergy/AdvReac Type Severity Reaction Status Date / Time Penicillins Allergy ALGY-Hives Verified 12/26/20 11:19 tramadol Allergy ALGY-Hives Verified 12/26/20 11:19 Current Medications Current Medications Generic Name Dose Route Start Last Admin Trade Name Freq PRN Reason Stop Dose Admin Nicardipine/Sodium Chloride 20 mg in 200 mls @ 0 mls/hr 12/30/20 05:45 12/30/20 09:00 Cardene IV Infused .Q0M FRANCISCO Titration Protocol Per Protocol PFSH Acute PFSH: Medical History Anxiety and depression COPD (chronic obstructive pulmonary disease) CRF (chronic renal failure) Encounter to establish care GERD (gastroesophageal reflux disease) Hypertension Hypertension screen Hypoxia Insomnia Lower respiratory tract infection Sebaceous cyst Vitamin D deficiency Surgical History H/O circumcision H/O hand surgery right hand with hardware S/P dialysis catheter insertion (12/12/19) Removed on 04/04/2020 S/P hemodialysis catheter insertion Family History Denies family history of Anesthesia complication Bleeding disorder Social History Smoking and tobacco status: former smoker Alcohol intake: never Household members: significant other Marital status: Single Current occupational status: disabled History of recent travel: Yes Details: [place] Out of state: Yes Vitals/I&O/Wt Last Vital Signs Temp 102.1 F H 12/30/20 05:27 Pulse 68 12/30/20 10:30 Resp 24 H 12/30/20 06:30 BP 169/91 12/30/20 10:30 Pulse Ox 99 12/30/20 10:30 12/29/20 12/30/20 12/30/20 22:59 06:59 14:59 Intake Total 500 / 500 Balance 500 / 500 Weight last 48 hrs Weight 98.883 kg Weight 99.79 kg Physical Exam Narrative: EXAM NARRATIVE: Constitutional: Awake, sleepy HEENT: Wet mucosa, no jvp, non icteric Lungs: Bilaterally rales mostly in the bases CVS: S1 S2, no murmurs Abdo: Soft, BS ok Ext 4: 2+ edema, peripheral perfusion with no cyanosis Neurological: Grossly non-focal Data Micro: Micro: Microbiology 12/30/20 05:45 Blood Culture - Pr eliminary Blood SPECIMEN ALEYDA HURLEY 12/30/20 05:30 Blood Culture - Pr eliminary Blood SPECIMEN ALEYDA HURLEY A&P Additional A&P Information 1. End-stage renal disease Given his hypoxia, vascular congestion seen on chest x-ray we will proceed with hemodialysis today. 2K bath, ultrafiltration of 3-4 L. Evaluate him tomorrow morning for dialysis if he remains in the hospital. Dose medication for GFR less than 15 on dialysis. 2. Shortness of breath Chest x-ray consistent with pulmonary edema, should be helped significantly by dialysis. No evidence of pneumonia Currently on nasal cannula oxygen, do note that he was significantly hypoxic when he came to the hospital. 3. Sepsis Concerning for catheter infection given overt fevers and chills. Blood culture sent and pending. To receive a dose of vancomycin and cefepime. If blood culture is returned positive, we would have to take out the dialysis line. 4. Chronic ESRD issues To be dealt with as an outpatient as part of standard monthly care. Disposition; patient insistent on leaving AGAINST MEDICAL ADVICE after dialysis today. I told him that if he indeed does have a bacterial infection of the blood secondary to his dialysis catheter, that this would be associated with potentially infective endocarditis, septic emboli which could result in severe morbidity as well as . At this time, he started to become hostile, using expletives. Thank you for the consultation as always it is a pleasure to follow these patients with you Matthew Holley MD Nephrology [phone] Patient seen and examined via telemedicine, with the assistance of the bedside RN > 25 min spent in evaluation and mgmt of patient Coding Level of Care Code Acute Airline Mechanic for [facility]
--- NOTE | 2020-12-30 10:55 | CTR_ITS ---
PROCEDURE INFORMATION: Exam: CTA Chest With Contrast Exam date and time: 12/30/2020 10:55 AM Age: 45 years old Clinical indication: Shortness of breath; Additional info: Hypoxia, tachycardia, assess for pe TECHNIQUE: Imaging protocol: Computed tomographic angiography of the chest with contrast. 3D rendering (Not supervised by radiologist): MIP and/or 3D reconstructed images were created by the technologist. Radiation optimization: All CT scans at this facility use at least one of these dose optimization techniques: automated exposure control; mA and/or kV adjustment per patient size (includes targeted exams where dose is matched to clinical indication); or iterative reconstruction. Contrast material: VISI 320; Contrast volume: 82 ml; Contrast route: INTRAVENOUS (IV); COMPARISON: CT chest wo con [id number] 02/21/2019 2:56 AM RADIATION DOSE METRICS: Total DLP (mGy-cm): 515.69 FINDINGS: Pulmonary arteries: No pulmonary embolus or aortic dissection. Aorta: Calcification of the thoracic aorta and/or great vessels consistent with atherosclerotic vessel disease. Lungs: Unremarkable. No consolidation. No masses. Pleural spaces: Small right pleural fluid collection. Heart: Severe calcified coronary artery disease. Lymph nodes: Borderline to mild mediastinal adenopathy which may be reactive. Bones/joints: Unremarkable. No acute fracture. Soft tissues: Bilateral gynecomastia. CT/CT angio chest PE protcl [id number] IMPRESSION: 1. Small right pleural fluid collection. 2. Severe calcified coronary artery disease. 3. Borderline to mild mediastinal adenopathy which may be reactive. 4. No pulmonary embolus or aortic dissection. Radiation Dose CTDIVOL = (mGy): DLP = 515.69 (mGy-cm)
[2020-12-30] MEDS: iodixanol 320 mg/mL 100mL Btl IV (11:23)
--- NOTE | 2020-12-30 11:23 | P.HP_ITS ---
Providers/Chief Complaint Admitting Physician: Mukesh Salazar Primary Care Provider: HALEY Grace Chief Complaint: SOB History of Present Illness Pleasant 45-year-old gentleman with history of ESRD getting hemodialysis MWF via right chest tunneled hemodialysis catheter, is in process of additional vein mapping for left arm fistula, HTN, on and off cigarette smoker, GERD, other chronic conditions is admitted due to progressively feeling more short of breath since yesterday, still reported feeling some orthopnea, mild LE swelling this morning in severe respiratory distress, on arrival to ER saturations low, in the 70s, requiring nonrebreather mask. Noted severely hypertensive, blood pressure 280/160, tachycardic with atrial fibrillation with RVR, received labetalol, s tarted on nicardipine drip with improvement in blood pressure, heart rates as well. He states at home blood pressures do not usually run as high, although was unable to provide any specific numbers. Not normally using oxygen at home, although has it available as needed. Oxygenation gradually improved with treatment, and transition to 5 L nasal cannula. In ER he is also noted to be febrile, febrile 102.1. He states may have had some chills at home, but denies overt fever. Denies nausea vomiting or diarrhea. No headache. Not coughing. Chest x-ray in ER with noted pulmonary vascular congestion, suspected interstitial pulmonary edema. Troponin 64-67.45. EKG A. fib with RVR. Potassium 5.6. ABG 7.34/58.1/155. D-dimer 3.96. Leukocytosis 15.6, fever 102.1 Fahrenheit. Urinalysis unremarkable. Blood cultures collected, but into SPS bottles. Given hemodialysis catheter has been in since March possibility of catheter associated infection considered. Has not had any erythema swelling or drainage from around the catheter. Started on cefepime, vancomycin. With regards to CODE STATUS would not want CPR in case of cardiopulmonary arrest. Would be okay with transient intubation mechanical ventilation in case of respiratory arrest. He reports that he may have to leave the hospital tonight even if he is leaving AMA. Discussed with him the seriousness of his condition, with consideration of pulmonary edema, at this time of unclear etiology, possibly cardiogenic. Discussed with him he will be requiring additional assessment and treatment, including additional hemodialysis, Thursday assessment that may include CT angiogram chest, echocardiogram, all these tests will also take time to come back. In addition with fever discussed with him we are likely dealing with also an infection of yet unknown source. Discussed also possibility of hemodialysis catheter infection, and that we will not have culture results available just yet, if not properly diagnosed or treated, may risk also disseminated infection bacteremia, seeding of infection to other secondary sites. Discussed with him concern for possible undiagnosed condition that may be potentially life- threatening if not diagnosed or treated during the hospital stay. He verbalized understanding. Understands that he is asked to stay, although we cannot hold him here against his will if he decides to leave. Encouraged him to return to the hospital anytime to resume his care if he does end up leaving and otherwise to follow-up as soon as possible with primary provider. Review of Systems Const: Reports: chills; Denies: fever(s), body aches or malaise Eyes: Denies: change in vision or eye redness ENMT: Denies: throat pain, oral sores or ear or mastoid pain Card: Reports: irregular heart rhythm, edema, dyspnea on exertion and orthopnea; Denies: chest pain or pre-syncope Resp: Reports: dyspnea; Denies: productive cough, change in phlegm color or hemoptysis GI: Denies: abdominal pain, nausea, vomiting, diarrhea, constipation, hematochezia or melena : Denies: flank pain, difficulty urinating, urinary frequency or hematuria Musc: Denies: back pain, joint swelling or joint redness Skin/Breast: Denies: rash, sores or new lesions Neuro: Denies: headache(s), numbness in extremities, weakness in extremities, dizziness, confusion or seizure-like activity Endo: Denies: polyuria or polydipsia Gene/Lymph: Denies: easy bleeding or purpura All/Imm: Denies: urticaria, throat swelling or tongue swelling Medications/Allergies Home Medications Medication Instructions Recorded Confirmed Last Taken Type vit B,C-folic ac 800 mcg-zinc 12.5 1 tab PO DAILY 06/09/19 12/30/20 04/03/20 History mg-selen-D3 2,000 unit-vit E tablet ondansetron HCl [Zofran] 4 mg PO Q6H PRN #20 tab 04/04/20 12/30/20 Unknown Rx Home oxygen #1 ea 08/07/20 12/30/20 Unknown Rx nebulizers #1 ea 08/07/20 12/30/20 Unknown Rx budesonide 0.5 mg/2 mL suspension See Rx Instructions .ROUTE 09/20/20 12/30/20 Unknown Rx for nebulization .COMPLEX #60 vial metoprolol succinate 100 mg 150 mg PO DAILY tab 11/12/20 12/30/20 Unknown History tablet,extended release 24 hr sucroferric oxyhydroxide 500 mg 500 mg PO TID 11/12/20 12/30/20 Unknown History chewable tablet hydralazine 50 mg tablet 50 mg PO TID #90 tab 11/22/20 12/30/20 Unknown Rx nifedipine 90 mg tablet,extended 90 mg PO DAILY #30 tab 11/22/20 12/30/20 Unknown Rx release albuterol sulfate 90 mcg/actuation 1 inh INHALATION Q4H PRN #8.5 g 12/28/20 12/30/20 Unknown Rx aerosol inhaler amitriptyline 25 mg tablet 25 mg PO DAILY 30 Days #30 tab 12/28/20 12/30/20 Unknown Rx budesonide-formoterol HFA 160 2 puff INHALATION BID 30 Days 12/28/20 12/30/20 Unknown Rx mcg-4.5 mcg/actuation aerosol #10.2 g inhaler ramelteon 8 mg tablet 8 mg PO DAILY 30 Days #30 tab 12/28/20 12/30/20 Unknown Rx furosemide 80 mg PO BID 12/30/20 12/30/20 Unknown History metolazone 2.5 mg PO DAILY 12/30/20 12/30/20 Unknown History pantoprazole 40 mg PO BID 12/30/20 12/30/20 Unknown History Allergies Allergy/AdvReac Type Severity Reaction Status Date / Time Penicillins Allergy ALGY-Hives Verified 12/26/20 11:19 tramadol Allergy ALGY-Hives Verified 12/26/20 11:19 PFSH Acute PFSH: Medical History Anxiety and depression COPD (chronic obstructive pulmonary disease) CRF (chronic renal failure) Encounter to establish care GERD (gastroesophageal reflux disease) Hypertension Hypertension screen Hypoxia Insomnia Lower respiratory tract infection Sebaceous cyst Vitamin D deficiency Surgical History H/O circumcision H/O hand surgery right hand with hardware S/P dialysis catheter insertion (12/12/19) Removed on 04/04/2020 S/P hemodialysis catheter insertion Family History Other Adopted Denies family history of Anesthesia complication Bleeding disorder Social History (Updated 12/30/20 @ 11:26 by Mukesh Salazar MD) Smoking and tobacco status: current every day smoker cigarettes [ Other cigarette details: On and off quitting and restarting ] Alcohol intake: never Household members: significant other Marital status: Single Current occupational status: disabled History of recent travel: Yes Details: [place] Out of state: Yes Vitals/I&O/Wt Last Vital Signs Temp 102.1 F H 12/30/20 05:27 Pulse 68 12/30/20 10:30 Resp 24 H 12/30/20 06:30 BP 169/91 12/30/20 10:30 Pulse Ox 99 12/30/20 10:30 12/29/20 12/30/20 12/30/20 22:59 06:59 14:59 Intake Total 500 / 500 Balance 500 / 500 Weight last 48 hrs Weight 98.883 kg Weight 99.79 kg Physical Exam Const: COMMON NORMALS: no acute distress, patient oriented x3 and alert NUTRITIONAL APPEARANCE: overweight ORIENTATION/CONSCIOUSNESS: Yes awake HENMT: COMMON NORMALS: oropharynx normal Neck/C-Spine: OTHER: thick short Chest: OTHER: Tunneled HD catheter R chest, no erythema, no drainage Resp: COMMON NORMALS: normal respiratory effort and clear to auscultation bilaterally AUSCULTATION: diminished lung sounds Cardio: COMMON NORMALS: regular rhythm, S1 normal heart sound present, S2 normal heart sound present and No murmurs present (Cardio) RHYTHM: regular rhythm HEART SOUNDS: S1 normal heart sound present and S2 normal heart sound present GI: COMMON NORMALS: Normal to inspection, nondistended, normoactive bowel sounds present, Soft to palpation and non-tender PALPATION: Yes Soft to palpation Extremity: COMMON NORMALS: no joint enlargement GENERAL: Yes edema (1+) Neuro: COMMON NORMALS: patient oriented x3 and moves all extremities Skin: COMMON NORMALS: no rashes or lesions noted GENERAL SKIN EXAM: no rashes or lesions noted Data : 12/30/20 05:30 12/30/20 05:30 Micro: Microbiology 12/30/20 05:45 Blood Culture - Preliminary Blood SPECIMEN COLLECTED 12/30/20 05:30 Blood Culture - Preliminary Blood SPECIMEN COLLECTED A&P Assessment and plan (1) Pulmonary edema: Possibly secondary to hypertensive emergency, however, has been having orthopnea since last night as well. New onset A. fib with RVR, unknown duration, cannot exclude cardiomyopathy, CHF, possibly tachycardia induced. Complete troponin EKG series. Discussed with him will obtain echocardiogram. Continue oxygen support. Additional hemodialysis today. Continue diuretics with Lasix, metolazone. Additionally febrile. Assess rapid and PCR COVID-19 testing. Does not appear to have localized consolidation or other symptoms of bacterial pneumonia. Follow-up blood cultures with possibility of infection of the catheter, discussed with him consideration/concern of possible bacteremia, possible dissemination, secondary infection, endocarditis, etc. Status: Acute Qualifiers: Chronicity: acute Qualified Code(s): J81.0 - Acute pulmonary edema (2) Acute respiratory failure with hypoxia: Secondary to pulmonary vascular congestion/pulmonary edema, A. fib with RVR, assess additionally for possible cardiac event. Check COVID-19. As above. CT angiogram obtained for additional assessment for possible PE. Status: Acute (3) Hypertensive emergency: Received labetalol, started on nicardipine drip. Blood pressures improved, 169/91. Restarting home medicines. Wean nicardipine drip. Reports he has had several episodes before, previously also with altered mental status requiring hospitalization due to hypertensive emergency. Reports that he and his do check blood pressures often at home, usually does not run quite as high. Could not really provide me with any concrete numbers. Resistant hypertension, continue his home medications with nifedipine, metoprolol, hydralazine, diuretics. Additional hemodialysis today. Status: Acute (4) Paroxysmal atrial fibrillation with RVR: Possibly secondary to hypertensive urgency, hypoxic respite failure. Additional cardiac assessment as above. TTE. Check TSH. Potassium is okay. Check magnesium. Consider additional assessment by stress testing for stratification. Consider sleep study for assessment of GIGI. Status: Acute (5) Sepsis: Discussed concern for infection, possibly hemodialysis catheter as otherwise did not have an obvious source at the moment. Some pulmonary edema- like changes on x-ray. No focal consolidation. Blood cultures collected, but into his PSG was. Requested peripheral and hemodialysis catheter cultures. Catheter has been in since March. Continue cefepime, vancomycin. Assess COVID-19 rapid and PCR test. Sepsis with leukocytosis 15.6, fever 102.1, on presentation tachycardia as well. Lactic acid is 1.2. Status: Acute Additional A&P Information COPD Smoking addiction Other medical problems noted Attestations Medical Necessity Statement*: Admission of over 2 midnights can be needed for assessment management of pulmonary vascular congestion, pulmonary edema, hypoxic respite failure, optimization of blood pressure following hypertensive emergency, new A. fib with RVR assessment, assessment treatment of sepsis. Coding Level of Care Code Acute Inside Sales Director for g Fwd Exam Comprehensive Diagnoses Pulmonary edema J81.0 Chronicity: acute Acute respiratory failure with hypoxia J96.01 Hypertensive emergency I16.1 Paroxysmal atrial fibrillation with RVR I48.0 Sepsis A41.9
--- NOTE | 2020-12-30 11:26 | ECG_ITS ---
[facility] Test Date: 2020-12-30 Pat Name: Leopoldo Schaefer Department: Room: ICU12 Gender: Male Circulation Tender: : 1975 Requested By: Wil Castro Order Number: [id number] Roderick MD: GARRETT JIMENEZ Measurements Intervals Teague Rate: 66 P: 48 OR: 180 QRS: 27 QRSD: 97 T: 70 QT: 452 QTc: 475 Interpretive Statements SINUS RHYTHM POSSIBLE LEFT VENTRICULAR HYPERTROPHY [VOLTAGE CRITERIA PLUS LAE OR QRS WIDENING] PROLONGED QT INTERVAL Compared to ECG 12/30/2020 05:29:55 Prolonged QT interval now present Atrial fibrillation no longer present Left-axis deviation no longer present T-wave abnormality no longer present Possible ischemia no longer present Electronically Signed On 12-31-2020 20:24:12 CDT by GARRETT JIMENEZ [email or web address]
[2020-12-30] MEDS: amitriptyline 25 mg Tablet PO (11:51)
[2020-12-30] MEDS: metoprolol succinate ER (24 HR) 100 mg Tablet 150 MG PO (11:51)
[2020-12-30] MEDS: FUROsemide 40 mg Tablet 80 MG PO (11:52)
[2020-12-30] MEDS: metOLazone 5 MG Tablet 2.5 MG PO (11:52)
[2020-12-30] MEDS: pantoprazole DR 40 mg Tablet PO (11:52)
[2020-12-30] MEDS: NIFEdipine ER (24 hr) 30 mg Tablet 90 MG PO (11:52)
[2020-12-30] MEDS: heparin, porcine 1,000 unit/mL INJ 10 mL 10000 UNIT HE (13:03)
[2020-12-30 14:20] LABS: Troponin 5 6HR 70.35 ng/L (0-15); Troponin 5 6HR Delta 6.35 ng/L (0-12)
[2020-12-30 14:35] LABS: Thyroid Stimulating Hormone 2.18 uIU/mL (0.27-4.20)
[2020-12-30 14:36] LABS: Hepatitis A Antibody IgM Non-Reactive (Nonreactive); Hepatitis B Core AB, Total Non-Reactive (Nonreactive); Hepatitis B Surface AB 3.5 (11.5-1000); Hepatitis B Surface Antigen Non-Reactive (Nonreactive); Hepatitis C Virus Antibody Non-Reactive (Nonreactive)
[2020-12-30] MEDS: hyDRALAzine 50 mg Tablet PO ×2 (16:20→20:22)
[2020-12-30] MEDS: enoxaparin 40 mg/0.4 mL Syringe SUBCUT (16:20)
--- NOTE | 2020-12-30 16:52 | PC.HD ---
Pt received with HD cath open to air, no dressing, no sutures securing it. No redness or drainage noted. Site cleaned well with CHG and dressing applied. Arterial port draws sluggishly and AP spiked when BFR at 200 so lines reversed. When pt was asked where he usually does dialysis he replied I don't .
--- NOTE | 2020-12-30 17:02 | PC.HD ---
Shortly after treatment initiated, AP began increasing quickly. Circuit flushed frequently as AP spikes would cause machine to alarm and stop running. As issue escalated, dialyzer flushed to nearly clear showing no visible clots to dialyzer or venous chamber. Reduced BFR was necessary as escalation continued, Dr Holley notified. Within an hour of tx start, BFR was down to 250 and AP was still spiking and stopping pump. Arterial pod was manipulated (air added) with improvement to the point of blood pump running at ordered rate with no further issues for the duration of treatment. Frequent flushing added significantly to dialysis intake so fluid removal goal not met, but ending weight showed a 3kg loss.
[2020-12-30] MEDS: hyDROXYzine 25 mg Capsule PO (21:27)
[2020-12-30] MEDS: nicardipine 20 MG/200 ML PREMIX 50 MG IV (21:38)
[2020-12-31] VITALS (65 sets, daily range): BP systolic 123–184; BP diastolic 59–97; PULSE 55–77; RESP 13–27; TEMP 36.6–36.9; O2SAT 76–99; BMI 34.1
[2020-12-31] MEDS: nicardipine 20 MG/200 ML PREMIX 30 MG IV ×2 (01:40→08:00)
--- NOTE | 2020-12-31 02:50 | PC.NURSE ---
Addendum entered by Moni Owusu RN 12/31/20 06:18: Patient pleasant, oriented and corporative with care throughout the night. Original Note: Shift Note Frequent safety and comfort rounds continue. Orders and/or nursing care completed as indicated. Patient monitored for response to intervention and treatment(s). Education provided includes medications with side effects, fall safety, oxygen safety, S/S to report, hypertension, infection prevention. Patient verbalized understanding of education. Patient's became hypertensive BP 191/91 even after giving PM medication, restarted nicardipine gtt, notified, see new order for increase in hydralazine, first dose next AM. Gtt titrated per protocol. Patient states he wears home O2, 4L prn. Patient was on 5L NC at beginning of shift to maintain SpOX >90%, when patient sleeping SpOx would drop <85% and 8L NC required, able to titrated oxygen back down to 5L NC when awake. Patient denies home CPAP. Will continue to monitor.
[2020-12-31 03:57] LABS: Basophils # 0.1 10^3/uL (0.0-0.1); Eosinophils # 0.5 10^3/uL (0.0-0.8); Eosinophils % 4.7 %; Hematocrit 32.4 % (42.0-52.0); Hemoglobin 9.7 g/dL (11.7-16.6); Lymphocytes # 1.1 10^3/uL (0.8-4.8); Lymphocytes % 9.5 %; Mean Corpuscular HGB Conc 29.9 g/dL (30.0-36.0); Mean Corpuscular Hemoglobin 30.4 pg (28.0-34.0); Mean Corpuscular Volume 101.6 fl (80-94); Monocytes # 1.1 10^3/uL (0.2-0.9); Monocytes % 9.2 %; Neutrophils % 75.3 %; Nucleated Red Blood Cells % 0 %; Platelet Count 338 10^3/cmm (130-400); Red Blood Count 3.19 10^6/uL (4.1-5.3); Red Cell Distribution Width 15.8 % (12.1-15.1); White Blood Count 11.6 10^3/uL (4.0-10.0)
[2020-12-31 04:15] LABS: SARS Covid-2 Antigen Negative (Negative)
[2020-12-31 04:26] LABS: Alanine Aminotransferase 12 U/L (0-41); Albumin Level 3.4 g/dL (3.5-5.2); Alkaline Phosphatase 97 IU/L (40-130); Anion Gap 14.3 (5-19); Aspartate Amino Transferase 17 U/L (0-40); Blood Urea Nitrogen 27 mg/dL (6-20); Carbon Dioxide 30 mmol/L (22-29); Chloride 99 mmol/L (98-107); Globulin 3.6 g/dL (1.3-4.6); Glomerular Filtration Rate 9.6 mL/min (90-130); Glucose 110 mg/dL (65-115); Osmolality Calculated 292 mOsm/kg (285-295); Potassium 5.3 mmol/L (3.5-5.1); Sodium 138 mmol/L (136-145); Total Bilirubin 0.3 mg/dL (0.15-1.2)
[2020-12-31] MEDS: NIFEdipine ER (24 hr) 30 mg Tablet 90 MG PO (08:00)
[2020-12-31] MEDS: FUROsemide 40 mg Tablet 80 MG PO (08:00)
[2020-12-31] MEDS: metoprolol succinate ER (24 HR) 100 mg Tablet 150 MG PO (08:01)
[2020-12-31] MEDS: hyDRALAzine 50 mg Tablet 75 MG PO (08:01)
[2020-12-31] MEDS: metOLazone 5 MG Tablet 2.5 MG PO (08:02)
[2020-12-31] MEDS: pantoprazole DR 40 mg Tablet PO (08:02)
[2020-12-31] MEDS: amitriptyline 25 mg Tablet PO (08:03)
--- NOTE | 2020-12-31 09:01 | PC.NURSE ---
0700 Report received. Assessment completed. AAOx4. VSS. Makes all needs known. Rodrigoene infusing per orders d/t HTN. Denies any other needs at this time. Stated that he wants to hopefully go home today. Will monitor.
[2020-12-31] MEDS: budesonide 0.5 mg/2 mL Neb INHALATION (09:23)
[2020-12-31] MEDS: ipratropium-albuterol 3 mL Neb INHALATION (09:23)
--- NOTE | 2020-12-31 10:04 | PC.NURSE ---
Dr. Holley spoke with pt via ipad, HD scheduled for today. Pt states that he can do everything that I'm doing here at home . He is agreeable to HD while here though. says to leave HD cath until we have positive blood culture from site. Cardene stopped per verbal order from Dr. Pacheco. says to target sys around 160.
--- NOTE | 2020-12-31 10:07 | PC.CHAP ---
Pastoral Care Encounter/Spiritual Assessment Type of Contact [] Declined senior gamemaster visit [] Patient/Family/Request visit [] Outpatient visit [] Follow-up visit [] Physician referral [] Code/Alert [x] Routine visit [] Staff referral [] Actively dying [] Patient sleeping [] Family support [] [] Out of room [] Palliative care [] [] Receiving care in room [] Pre-surgical visit [] Trauma [] Long length of stay [x] ICU visit [x] Other: on phone.. having breakfast Relational/Emotional Strength [] Patient feels connected with others/family/visitors/staff [] Distress [] Loneliness/isolation [] Abandonment Spirituality of Patient [] Person of [place] [] Attends Methodist of their [place] [] Believes in Prayer [] Reads Bible or Moravian materials [] There are Spiritual issues to be addressed Testing Coordinator Interventions [x] Prayer [] Active listening [] Non-anxious presence [] Spiritual/emotional support [] Crisis/trauma care [] Spiritual counseling [] Bereavement support [] Provided bereavement packet [] Provided Bible/devotional materials [] Provided toy/stuffed animal, coloring book to patient or family member [] Provided Communion [] Anointing/[place] [] Salvation [x] Completed spiritual assessment [] Other: Impact on Illness or Injury [] Angry [] Fearful [] Anxious [] Often cries [] Exhaustion [] Unable to work [] Unable to attend episcopalian [] Unable to walk/stand [] Unable to read [] Unable to drive [] Unable to eat/drink [] Unable to sleep [] Unable to be with family [] Patient intubated [] Other: Summary Time spent with patient
[2020-12-31 10:41] LABS: Iron 36 ug/dL (59-158); Percent Saturation 21.4 % (20-50); Total Iron Binding Capacity 168 mcg/dl; Unsaturated Iron Binding 132 ug/dL (112-347)
[2020-12-31 10:48] LABS: Procalcitonin 14.79 ng/mL (0-0.5)
--- NOTE | 2020-12-31 10:49 | PC.NURSE ---
Cardene restarted. O2 increased to 10L NC d/t desats. Pt HOB raised. aware. New orders for lasix, clonidine patch. HD nurse in room at this time.
[2020-12-31] MEDS: heparin 5,000 unit/mL INJ 1 mL 5000 UNIT SUBCUT ×2 (10:52→21:31)
--- NOTE | 2020-12-31 11:00 | USCV_ITS ---
Leopoldo Schaefer Age: 45 Gender: M : 1975 Exam Date: 12/31/2020 09:53 Ordering Phys: Mukesh Salazar MD Technologist: Exam Location: [facility] [place] Indication: CHEST PAIN COVID BP: 135 / 70 HR: 60 Rhythm: Sinus Technical Quality: Adequate MEASUREMENTS (Male / Female) Normal Values 2D ECHO LV Diastolic Diameter PLAX 6.0 cm 4.2 - 5.9 / 3.9 - 5.3 cm LV Systolic Diameter PLAX 3.7 cm IVS Diastolic Thickness 0.9 cm 0.6 - 1.0 / 0.6 - 0.9 cm IVS Systolic Thickness 1.6 cm LVPW Diastolic Thickness 1.2 cm 0.6 - 1.0 / 0.6 - 0.9 cm LVPW Systolic Thickness 1.4 cm LVOT Diameter 2.0 cm LV Ejection Fraction 2D Teich 57.5 % LV Ejection Fraction MOD 2C 76.9 % LV Ejection Fraction 2C AL 77.2 % LA Diameter 5.1 cm LA Width 5.7 cm LA Height 6.9 cm RA Width 6.3 cm RA Height 5.5 cm DOPPLER AV Peak Velocity 184.7 cm/s LVOT Peak Velocity 129.0 cm/s AV Area Cont Eq vti 2.7 cm squared AV Area Cont Eq pk 2.3 cm squared MV Area PHT 2.1 cm squared Mitral E to A Ratio 1.4 MV E' Velocity 61.5 cm/s Mitral E to MV E' Ratio 17.1 Mitral E to LV E' Lateral Ratio 17.3 Mitral E to LV E' Septal Ratio 17.1 TR Peak Velocity 304.8 cm/s TR Peak Gradient 37.1 mmHg TV Peak E Velocity 93.0 cm/s Right Atrial Pressure 3.0 mmHg Pulmonary Artery Systolic Pressu 40.1 mmHg PV Peak Velocity 96.0 cm/s FINDINGS Left Ventricle Normal left ventricular size and systolic function, EF 70 %. No regional wall motion abnormalities. Right Ventricle The right ventricle is normal in size and function. Right Atrium Mildly increased right atrial size. Left Atrium Mildly increased left atrial size. Mitral Valve Mild mitral annular calcification. Aortic Valve Structurally normal aortic valve without significant sclerosis or stenosis. There is no aortic regurgitation. Tricuspid Valve Moderate tricuspid reviewed Pulmonic Valve Pulmonic valve not well visualized. Pericardium Normal pericardium without effusion. Aorta Normal ascending aorta dimension. CONCLUSIONS Normal left ventricular size and systolic function, EF 70 %. No regional wall motion abnormalities. Mild biatrial enlargement. Moderate eccentric tricuspid valve regurgitation. There is no pericardial effusion. There are no intracardiac masses. Estimated pulmonary artery peak systolic pressure of 40 mm Hg. there is no pericardial effusion. There are no intracardiac masses. No previous study is available for comparison. Dr Shanna Sosa MD FACC (Electronically Signed) Final Date: 31 December 2020 23:12 S
[2020-12-31] MEDS: cloNIDine 0.2 mg/24 hr Patch 1 PATCH TRANSDERMA (11:37)
[2020-12-31] MEDS: heparin, porcine 1,000 unit/mL INJ 10 mL 10000 UNIT HE (11:38)
--- NOTE | 2020-12-31 12:59 | P.PN_ITS ---
Subjective Subjective: Interval history: Overall Mr. Schaefer feels a little bit better today. He denies fevers or chills and claims that his breathing is vastly improved from what it was. He received uncomplicated dialysis yesterday afternoon. Cultures were taken given his fever and chills, however all cultures are still no growth to date. He is on oxygen at home at 4 L, he is currently on 6 L here in the hospital. Mild lower extremity edema. No uremic symptoms. Vitals/I&O/Wt Last Vital Signs Temp 98.2 F 12/31/20 12:00 Pulse 61 12/31/20 12:00 Resp 23 H 12/31/20 12:00 BP 173/89 12/31/20 12:00 Pulse Ox 94 12/31/20 11:00 12/30/20 12/31/20 12/31/20 22:59 06:59 14:59 Intake Total 711.333 / 1211.333 345 / 1556.333 769.5 / 769.5 Output Total 3150 / 3150 250 / 250 Balance -2438.667 / -1938.667 345 / -1593.667 519.5 / 519.5 Weight last 48 hrs Weight 98.883 kg Weight 98.883 kg Weight 99.79 kg Physical Exam Narrative: EXAM NARRATIVE: Constitutional: Awake, sleepy HEENT: Wet mucosa, no jvp, non icteric Lungs: Bilaterally rales mostly in the bases CVS: S1 S2, no murmurs Abdo: Soft, BS ok Ext 4: 2+ edema, peripheral perfusion with no cyanosis Neurological: Grossly non-focal Data : 12/31/20 03:22 12/31/20 03:22 Micro: Microbiology 12/30/20 05:45 Blood Culture - Preliminary Blood NEGATIVE TO DATE 12/30/20 05:30 Blood Culture - Preliminary Blood NEGATIVE TO DATE 12/30/20 11:37 Blood Culture - Preliminary Blood SPECIMEN COLLECTED 12/30/20 11:37 Blood Culture - Preliminary Blood SPECIMEN COLLECTED 12/30/20 13:19 Blood Culture - Preliminary Blood SPECIMEN COLLECTED 12/30/20 13:19 Blood Culture - Preliminary Blood SPECIMEN COLLECTED A&P Additional A&P Information 1. End-stage renal disease Given oxygen needs above baseline, will dialyze him again today, 2K bath, 3 L of ultrafiltration. Continue Thursday, Thursday and Thursday schedule. Dose medication for GFR less than 15 on dialysis. 2. Shortness of breath Chest x-ray consistent with pulmonary edema, should be helped significantly by dialysis. No evidence of pneumonia Currently on nasal cannula oxygen Plan for more ultrafiltration today 3. Sepsis Concerning for catheter infection given overt fevers and chills. Blood culture sent and pending. To receive a dose of vancomycin and cefepime. If blood c ulture is returned positive, we would have to take out the dialysis line. NGTD 4. Chronic ESRD issues To be dealt with as an outpatient as part of standard monthly care. Disposition; patient insistent on leaving AGAINST MEDICAL ADVICE after dialysis today. I told him that if he indeed does have a bacterial infection of the blood secondary to his dialysis catheter, that this would be associated with potentially infective endocarditis, septic emboli which could result in severe morbidity as well as . Thank you for the consultation as always it is a pleasure to follow these patients with you Matthew Holley MD Nephrology [phone] Patient seen and examined via telemedicine, with the assistance of the bedside RN > 25 min spent in evaluation and mgmt of patient Attestations Medical Necessity Statement*: Eval for ESRD mgmt Coding Level of Care Code Acute Health And Safety Specialist for g Alan
[2020-12-31 13:46] LABS: Coronavirus Test Green County Not Detected
--- NOTE | 2020-12-31 14:31 | PC.NURSE ---
O2 decreased to 8LNC. Dialysis completed. 4 liters fluid removed. MD aware. Md ordered not to give lasix at this time. Will monitor.
[2020-12-31] MEDS: hyDRALAzine 50 mg Tablet 100 MG PO ×2 (14:47→20:52)
[2020-12-31] MEDS: nicardipine 20 MG/200 ML PREMIX 50 MG IV (14:52)
--- NOTE | 2020-12-31 15:09 | PC.RESP ---
sent smoking cessation and pulmonary rehab information
--- NOTE | 2020-12-31 16:13 | P.PN_ITS ---
Subjective Subjective: Interval history: Hospital course, labs appreciated. Examination lying comfortably in bed. On examination he was on 6 L high flow nasal cannula saturating 92%. During the day his oxygen requirements have gone up to 10 L heated high flow which came down to 6 L post dialysis. On examination patient was on nicardipine drip early in the morning which was stopped and restarted again during the day. Patient Denies of having any chest pain, nausea vomiting, headache. Asking to go home as soon as possible. Has agreed to stay for now and go for another session of dialysis. Vitals/I&O/Wt Last Vital Signs Temp 98.1 F 12/31/20 16:00 Pulse 63 12/31/20 16:00 Resp 21 H 12/31/20 16:00 BP 140/62 12/31/20 16:00 Pulse Ox 95 12/31/20 16:00 12/31/20 12/31/20 12/31/20 06:59 14:59 22:59 Intake Total 345 / 1556.333 906.333 / 906.333 360 / 1266.333 Output Total 250 / 250 Balance 345 / -1593.667 656.333 / 656.333 360 / 1016.333 Weight last 48 hrs Weight 98.883 kg Weight 98.883 kg Weight 99.79 kg Physical Exam Narrative: EXAM NARRATIVE: General: No acute distress, AO x3, on 6 L high flow nasal cannula. HEENT: PERRLA, pupils bilaterally equal and reactive Chest: Normal vesicular breath sounds, no added sounds, equal good air entry bilaterally CVS: S1-S2 regular, no murmurs, no tachycardia, S3 gallop present, no rubs Abdomen: Soft, nontender, no organomegaly, bowel sounds present Neuro: No focal deficits, no facial deformity, AO x3, power 5/5 in all limbs Data : 12/31/20 03:22 12/31/20 03:22 Micro: Microbiology 12/30/20 11:37 Blood Culture - Preliminary Blood NEGATIVE TO DATE 12/30/20 11:37 Blood Culture - Preliminary Blood NEGATIVE TO DATE 12/30/20 13:19 Blood Culture - Preliminary Blood NEGATIVE TO DATE 12/30/20 13:19 Blood Culture - Preliminary Blood NEGATIVE TO DATE 12/30/20 05:45 Blood Culture - Preliminary Blood NEGATIVE TO DATE 12/30/20 05:30 Blood Culture - Preliminary Blood NEGATIVE TO DATE A&P Assessment and plan (1) Pulmonary edema: Status: Acute Qualifiers: Chronicity: acute Qualified Code(s): J81.0 - Acute pulmonary edema (2) Acute respiratory failure with hypoxia: Status: Acute (3) Hypertensive emergency: Status: Acute (4) Paroxysmal atrial fibrillation with RVR: Possibly secondary to hypertensive urgency, hypoxic respiratory failure. TSH normal. Cannot rule out obstructive sleep apnea. Most likely will require a sleep study as an outpatient. Echocardiogram results awaited. Monitor electrolytes including potassium and magnesium. Status: Acute (5) Sepsis: Discussed concern for infection, possibly hemodialysis catheter as otherwise did not have an obvious source at the moment. Some pulmonary edema- like changes on x-ray. No focal consolidation. For now continue with vancomycin and cefepime. If blood cultures remain negative will discontinue antibiotics in next 24 hours and will monitor. Status: Acute (6) End stage chronic kidney disease: Status: Acute (7) Diastolic CHF: Status: Acute Additional A&P Information Hypertensive emergency: Blood pressure is elevated. Currently on Cardene drip. Change metoprolol to Coreg 25 mg twice daily. Continue with home dose of nifedipine. Increase hydralazine to 100 mg 3 times daily, add losartan 100, start on clonidine 0.2 transdermal patch. We will try to wean off Cardene with goal blood pressure of less than 160/90 mmHg which would be 25% of presenting blood pressure. Acute hypoxic respiratory failure: Chronically on 4 L. Most likely secondary to pulmonary edema from hypertensive emergency in setting of CKD. COVID-19 antigen negative. PCR pending. Continue with isolation precautions. CTA done on admission negative for pulmonary embolism or any consolidation. Continue with home dose of metolazone, Lasix 80 mg daily. Echocardiogram results awaited. CKD on maintenance hemodialysis: Discussed with nephrology. Repeat hemodialysis with target net 4 L negative which will also help with hypoxic respiratory failure. COPD Smoking addiction Other medical problems noted Renal dialysis diet. Heparin for DVT prophylaxis. Protonix for PUD prophylaxis. Attestations Medical Necessity Statement*: Requires further hospitalization for management of hypertensive emergency, hypoxic respiratory failure secondary pulmonary edema, CKD on hemodialysis Critical Care Time: The high probability of a clinically significant, sudden or life threatening deterioration of the patient's [pulmonary, cardiac, renal] system(s) required my full and direct attention, intervention and personal management. The critical care time is as shown. This time is in addition to time spent performing any reported procedures but includes the following: [x] Data and vital sign review and interpretation [x] Patient assessment, examination and intervention [x] Documentation [x] Medication orders and management Critical Care Time (min): 90 Coding Level of Care Code Acute [employer] F[employer] Diagnoses Pulmonary edema J81.0 Chronicity: acute Acute respiratory failure with hypoxia J96.01 Hypertensive emergency I16.1 Paroxysmal atrial fibrillation with RVR I48.0 Sepsis A41.9 End stage chronic kidney disease N18.6 Diastolic CHF I50.30
[2020-12-31] MEDS: losartan 50 mg Tablet 100 MG PO (16:22)
--- NOTE | 2020-12-31 18:27 | PC.NURSE ---
Shift Note Frequent safety and comfort rounds continue. Orders and/or nursing care completed as indicated. Patient monitored for response to intervention and treatment(s). Education provided includes treatment plan, medication changes and need for hospitalization. Pt resistant to continued treatment. MD aware and planning dc in AM. VSS. Cardene off, pt removed O2, O2 sat stable. Will continue to monitor.
[2020-12-31] MEDS: hyDROXYzine 25 mg Capsule PO (20:52)
--- NOTE | 2020-12-31 21:36 | PC.NURSE ---
Shift Note Frequent safety and comfort rounds continue. Orders and/or nursing care completed as indicated. Patient monitored for response to intervention and treatment(s). Education provided includes new medications, medication list with med side effects, BP and HR monitoring with goals, fall safety, oxygen safety. Patient and/or loss control representative verbalized understanding of education. Patient's heart rate dropping down to 40's bpm at beginning of shift and ranging 48-68 bpm, education provide to patient on S/S to report. Will continue to monitor.
[2021-01-01] VITALS (44 sets, daily range): BP systolic 128–186; BP diastolic 58–93; PULSE 54–79; RESP 13–25; TEMP 36.4–37; O2SAT 90–99; BMI 33.8
[2021-01-01] MEDS: acetaminophen 325 mg Tablet 650 MG PO (03:25)
[2021-01-01 05:02] LABS: Basophils # 0.1 10^3/uL (0.0-0.1); Basophils % 1.3 %; Eosinophils # 0.7 10^3/uL (0.0-0.8); Eosinophils % 6.9 %; Hematocrit 33.3 % (42.0-52.0); Hemoglobin 10.1 g/dL (11.7-16.6); Lymphocytes # 1.2 10^3/uL (0.8-4.8); Lymphocytes % 11.3 %; Mean Corpuscular HGB Conc 30.3 g/dL (30.0-36.0); Mean Corpuscular Hemoglobin 30.4 pg (28.0-34.0); Mean Corpuscular Volume 100.3 fl (80-94); Mean Platelet Volume 9.1 fL (7.4-10.4); Monocytes # 1.1 10^3/uL (0.2-0.9); Monocytes % 10.6 %; Neutrophils # 7.05 10^3/uL (1.8-7.7); Neutrophils % 68.9 %; Nucleated Red Blood Cells % 0 %; Platelet Count 386 10^3/cmm (130-400); Red Blood Count 3.32 10^6/uL (4.1-5.3); Red Cell Distribution Width 16.1 % (12.1-15.1); White Blood Count 10.2 10^3/uL (4.0-10.0)
[2021-01-01 05:32] LABS: Alanine Aminotransferase 11 U/L (0-41); Albumin Level 3.3 g/dL (3.5-5.2); Alkaline Phosphatase 95 IU/L (40-130); Anion Gap 17.1 (5-19); Aspartate Amino Transferase 11 U/L (0-40); Blood Urea Nitrogen 31 mg/dL (6-20); Carbon Dioxide 27 mmol/L (22-29); Chloride 97 mmol/L (98-107); Globulin 3.9 g/dL (1.3-4.6); Glomerular Filtration Rate 10.1 mL/min (90-130); Glucose 113 mg/dL (65-115); Osmolality Calculated 289 mOsm/kg (285-295); Potassium 5.1 mmol/L (3.5-5.1); Sodium 136 mmol/L (136-145); Total Bilirubin 0.3 mg/dL (0.15-1.2); Total Protein 7.2 g/dL (6.6-8.7)
[2021-01-01 05:37] LABS: Creatinine Clr Calc Pharmacy 16.6065
--- NOTE | 2021-01-01 07:00 | PC.NURSE ---
Report received. Pt resting in bed, assessment completed. AAOx4. Makes all needs known. VSS. Uses urinal. Will monitor.
[2021-01-01] MEDS: metOLazone 5 MG Tablet 2.5 MG PO (07:59)
[2021-01-01] MEDS: NIFEdipine ER (24 hr) 30 mg Tablet 90 MG PO (08:00)
[2021-01-01] MEDS: amitriptyline 25 mg Tablet PO (08:00)
[2021-01-01] MEDS: hyDRALAzine 50 mg Tablet 100 MG PO ×2 (08:00→14:34)
[2021-01-01] MEDS: pantoprazole DR 40 mg Tablet PO (08:00)
[2021-01-01] MEDS: FUROsemide 40 mg Tablet 80 MG PO (08:00)
[2021-01-01] MEDS: losartan 50 mg Tablet 100 MG PO (08:00)
[2021-01-01] MEDS: carvedilol 25 mg Tablet PO (08:01)
--- NOTE | 2021-01-01 08:52 | XR_ITS ---
WS: [id number] XR chest 1V portable [id number] REASON FOR EXAM: sob FINDINGS: The tunneled transverse right jugular dialysis catheter remains in proper position. Apparent interstitial changes in both lower lungs seen on the previous examination of 12/30/2020 have resolved. Right pleural effusion persists. No new abnormal findings. XR/XR chest 1V portable [id number] IMPRESSION: Presumed resolving pulmonary edema.
[2021-01-01] MEDS: budesonide 0.5 mg/2 mL Neb INHALATION (10:04)
[2021-01-01] MEDS: ipratropium-albuterol 3 mL Neb INHALATION (10:04)
[2021-01-01 10:21] LABS: NT Pro B Type Natriuretic Pept > 70000 pg/mL (0-125)
[2021-01-01] MEDS: heparin 5,000 unit/mL INJ 1 mL 5000 UNIT SUBCUT (10:35)
[2021-01-01 11:32] LABS: Charge for UA Resulting for Rev
[2021-01-01 12:16] LABS: Potassium, Radom Urine 6 mmol/L; Urine Creatinine 25 mg/dL (39-259); Urine Random Chloride 58 mmol/L; Urine Random Sodium 112 mmol/L
[2021-01-01 12:21] LABS: Creatinine Urine, Random 26 mg/dL (39-259)
[2021-01-01 12:54] LABS: Urine Appearance Hazy (CLEAR); Urine Color Straw (Yellow); pH Urine 8 (5-7)
[2021-01-01 12:56] LABS: Bilirubin Urine Neg (Negative); Blood Urine Neg (Negative); Glucose Urine UA 1+ (Normal); Ketones Urine Negative (Negative); Leukocyte Esterase Urine Negative (Negative); Nitrate Urine Negative (Negative); Protein Urine 3+ (Negative); Sulfosalicylic Acid Urine Negative (Negative); Urobilinogen Urine Norm (Negative)
[2021-01-01 12:57] LABS: Add Urine Culture? No; Add Urine Microscopic? YES; Bacteria Urine TRACE /hpf; WBC Urine 0-4 /hpf (0-5)
[2021-01-01 13:10] LABS: Microalbum Creatinine Ratio Ur 4846 mg/dL (0-20); Microalbumin Random Urine 126 ug/dL (0-20)
--- NOTE | 2021-01-01 13:20 | PM.DCS ---
Discharge Providers Date of Admission: 12/30/20 07:31 Date of Discharge: January 01, 2021 Attending Provider at Admission: Mukesh Salazar Attending Provider at Discharge: Lionel Day MD Consults: Nephrology: Tele Primary Care Provider: HALEY Grace Diagnoses at Discharge Discharge Diagnosis (1) Pulmonary edema: Status: Acute Qualifiers: Chronicity: acute Qualified Code(s): J81.0 - Acute pulmonary edema (2) Acute respiratory failure with hypoxia: Status: Acute (3) Hypertensive emergency: Status: Acute (4) Paroxysmal atrial fibrillation with RVR: Status: Acute (5) Sepsis: Status: Ruled-out (6) End stage chronic kidney disease: Status: Acute (7) Diastolic CHF: Status: Acute (8) Resistant hypertension: Status: Acute Reason for Visit Reason for Visit: SOB Hospital Course Hospital Course 45-year-old gentleman with history of ESRD getting hemodialysis MWF via right chest tunneled hemodialysis catheter, is in process of additional vein mapping for left arm fistula, HTN, on and off cigarette smoker, GERD, other chronic conditions is admitted due to progressively feeling more short of breath since yesterday, still reported feeling some orthopnea, mild LE swelling this morning in severe respiratory distress, on arrival to ER saturations low, in the 70s, requiring nonrebreather mask. Noted severely hypertensive, blood pressure 280/160, tachycardic with atrial fibrillation with RVR, received labetalol, started on nicardipine drip with improvement in blood pressure, heart rates as well. On admission patient was found to have an episode of fever going up to 102.6 Fahrenheit. Patient was admitted to ICU for management of hypertensive emergency leading to pulmonary edema in setting of end-stage renal disease on hemodialysis. Telemetry nephrology was consulted. Patient underwent 2 extra cycles of hemodialysis during admission. He was started on nicardipine drip on admission which was gradually weaned off. Patient's blood pressures were difficult to control on multiple antihypertensives had to be added and titrated up. Work-up for resistant hypertension has been sent out. Patient's care was difficult with him threatening to leave AGAINST MEDICAL ADVICE multiple times during the hospitalization. On further review of chart and confirmation with patient's caregiver he has been on occasions noncompliant with medications and dialysis as an outpatient sometimes because of financial constraints. During hospitalization patient required high oxygen supplementation with oxygen requirement going as high as 10 L which was managed with extra dialysis session for pulmonary edema. His oxygen requirements were down to his baseline 4 L on the day of discharge. On admission there was concern for sepsis with one episode of fever. Patient was started on broad-spectrum antibiotics and cultures were taken. His cultures remain negative and he was monitored off antibiotic for 24 hours. Patient did not have any further fevers after admission. His imaging was negative for any signs of consolidation or infection. Patient was explained in detail regarding [facility] pharmacy. Medications were arranged for him with next to bed prior to discharge. His antihypertensives have been adjusted. He is advised to follow-up with his primary care provider within the next 7 to 10 days with a blood pressure diary for further adjustment of antihypertensives. Patient is supposed to take hydralazine 100 mg 3 times a day, clonidine 0.2 mg 3 times a day, metoprolol has been changed to carvedilol 25 mg twice daily, nifedipine 90 mg daily has been continued, losartan 100 mg daily has been added to his medication list. Physical Exam Narrative: EXAM NARRATIVE: General: No acute distress, AO x3, on 4 L nasal cannula. HEENT: PERRLA, pupils bilaterally equal and reactive Chest: Normal vesicular breath sounds, no added sounds, equal good air entry bilaterally CVS: S1-S2 regular, no murmurs, no tachycardia, S3 gallop present, no rubs Abdomen: Soft, nontender, no organomegaly, bowel sounds present Neuro: No focal deficits, no facial deformity, AO x3, power 5/5 in all limbs Discharge Data Data Completed and Pending: Completed Studies During Hospitalization Category Date Time Status CT angio chest PE protcl [id number] Stat Cat Scan 12/30/20 10:55 Completed XR chest 1V sully ble [id number] Routine Exams 01/01/21 08:52 Completed XR chest 1V sully ble [id number] Urgent Exams 12/30/20 05:24 Completed CV. echo complete * [id number] Routine Ultrasound 12/31/20 11:00 Completed Pending at discharge Category Date Time Status Aldosterone Routi ne Lab 01/01/21 04:47 Received Blood Culture Sta t Lab 12/30/20 05:45 Results Blood Culture Sta t Lab 12/30/20 11:37 Results Complete Blood Co unt w/Auto AM LABS Lab 01/02/21 04:00 Ordered Comprehensive Met abolic Panel AM LA BS Lab 01/02/21 04:00 Ordered Plasma Renin Acti vity LC/MS/MS Rout ine Lab 01/01/21 04:47 Received Reflex Urine Micr oscopic Routine Lab 01/01/21 11:26 Results Urinalysis Routin e Lab 01/01/21 11:26 Results Urine Eosinophils Routine Lab 01/01/21 11:26 Results Urine Microalbumi n Creat Ratio Rout ine Lab 01/01/21 11:26 Results Labs from last 24 hours 01/01/21 01/01/21 01/01/21 11:26 11:26 04:47 WBC RBC Hgb Hct MCV MCH MCHC RDW Plt Count MPV Neut % (Auto) Lymph % (Auto) [place] % (Auto) Eos % (Auto) Baso % (Auto) Neut # (Auto) Lymph # (Auto) [place] # (Auto) Eos # (Auto) Baso # (Auto) Nucleated RBC % (a uto) Nucleated RBCs # Sodium Potassium Chloride Carbon Dioxide Anion Gap BUN Creatinine GFR Calculation Glucose Calculated Osmolal ity Calcium Total Bilirubin AST ALT Alkaline Phosphata se NT-Pro-B Natriuret Pep Total Protein Albumin Globulin Renin Activity Pending Aldosterone Urine Color Straw Urine Appearance Hazy A Urine pH 8 H Ur Specific Gravit y 1.010 Urine Protein 3+ H Urine Glucose (UA) 1+ H Urine Ketones Negative Urine Blood Neg Urine Nitrate Negative Urine Bilirubin Neg Prot Sulfosalicyli c Acd Negative Urine Urobilinogen Norm Ur Leukocyte Juanita ase Negative Urine RBC Not Reportable Urine WBC 0-4 H Ur Eosinophil Smea r Pending Ur Squamous Epith Cells 5-10 H Amorphous Sediment Not Reportable Urine Bacteria Trace Urine Eosinophils Pending Ur Random Microalb umin 126 H Ur Random Sodium 112 Ur Random Potassiu m 6 Ur Random Chloride 58 Urine Creatinine 25 L 26 L Microalb/Creat Rat io 4846 H Nasal/Oral COVID-1 9 PCR 01/01/21 01/01/21 01/01/21 04:47 04:47 04:47 WBC RBC Hgb Hct MCV MCH MCHC RDW Plt Count MPV Neut % (Auto) Lymph % (Auto) [place] % (Auto) Eos % (Auto) Baso % (Auto) Neut # (Auto) Lymph # (Auto) [place] # (Auto) Eos # (Auto) Baso # (Auto) Nucleated RBC % (a uto) Nucleated RBCs # Sodium 136 Potassium 5.1 Chloride 97 L Carbon Dioxide 27 Anion Gap 17.1 BUN 31 H Creatinine 6.0 H* GFR Calculation 10.1 L Glucose 113 Calculated Osmolal ity 289 Calcium 9.0 Total Bilirubin 0.3 AST 11 ALT 11 Alkaline Phosphata se 95 NT-Pro-B Natriuret Pep > 03814 H Total Protein 7.2 Albumin 3.3 L Globulin 3.9 Renin Activity Aldosterone Pending Urine Color Urine Appearance Urine pH Ur Specific Gravit y Urine Protein Urine Glucose (UA) Urine Ketones Urine Blood Urine Nitrate Urine Bilirubin Prot Sulfosalicyli c Acd Urine Urobilinogen Ur Leukocyte Juanita ase Urine RBC Urine WBC Ur Eosinophil Smea r Ur Squamous Epith Cells Amorphous Sediment Urine Bacteria Urine Eosinophils Ur Random Microalb umin Ur Random Sodium Ur Random Potassiu m Ur Random Chloride Urine Creatinine Microalb/Creat Rat io Nasal/Oral COVID-1 9 PCR 01/01/21 12/30/20 04:47 11:30 WBC 10.2 H RBC 3.32 L Hgb 10.1 L Hct 33.3 L MCV 100.3 H MCH 30.4 MCHC 30.3 RDW 16.1 H Plt Count 386 MPV 9.1 Neut % (Auto) 68.9 Lymph % (Auto) 11.3 [place] % (Auto) 10.6 Eos % (Auto) 6.9 Baso % (Auto) 1.3 Neut # (Auto) 7.05 Lymph # (Auto) 1.2 [place] # (Auto) 1.1 H Eos # (Auto) 0.7 Baso # (Auto) 0.1 Nucleated RBC % (a uto) 0 Nucleated RBCs # 0.0 Sodium Potassium Chloride Carbon Dioxide Anion Gap BUN Creatinine GFR Calculation Glucose Calculated Osmolal ity Calcium Total Bilirubin AST ALT Alkaline Phosphata se NT-Pro-B Natriuret Pep Total Protein Albumin Globulin Renin Activity Aldosterone Urine Color Urine Appearance Urine pH Ur Specific Gravit y Urine Protein Urine Glucose (UA) Urine Ketones Urine Blood Urine Nitrate Urine Bilirubin Prot Sulfosalicyli c Acd Urine Urobilinogen Ur Leukocyte Juanita ase Urine RBC Urine WBC Ur Eosinophil Smea r Ur Squamous Epith Cells Amorphous Sediment Urine Bacteria Urine Eosinophils Ur Random Microalb umin Ur Random Sodium Ur Random Potassiu m Ur Random Chloride Urine Creatinine Microalb/Creat Rat io Nasal/Oral COVID-1 9 PCR Not detected Addt'l Data from Hospital Stay: Laboratory Results WBC 10.2 10^3/uL (4.0 -10.0) H 01/01/21 04:47 RBC 3.32 10^6/uL (4.1 -5.3) L 01/01/21 04:47 Hgb 10.1 g/dL (11.7-1 6.6) L 01/01/21 04:47 Hct 33.3 % (42.0-52.0 ) L 01/01/21 04:47 MCV 100.3 fl (80-94) H 01/01/21 04:47 MCH 30.4 pg (28.0-34. 0) 01/01/21 04:47 MCHC 30.3 g/dL (30.0-3 6.0) 01/01/21 04:47 RDW 16.1 % (12.1-15.1 ) H 01/01/21 04:47 Plt Count 386 10^3/cmm (130 -400) 01/01/21 04:47 MPV 9.1 fL (7.4-10.4) 01/01/21 04:47 Neut % (Auto) 68.9 % 01/01/21 04:47 Lymph % (Auto) 11.3 % 01/01/21 04:47 [place] % (Auto) 10.6 % 01/01/21 04:47 Eos % (Auto) 6.9 % 01/01/21 04:47 Baso % (Auto) 1.3 % 01/01/21 04:47 Neut # (Auto) 7.05 10^3/uL (1.8 -7.7) 01/01/21 04:47 Lymph # (Auto) 1.2 10^3/uL (0.8- 4.8) 01/01/21 04:47 [place] # (Auto) 1.1 10^3/uL (0.2- 0.9) H 01/01/21 04:47 Eos # (Auto) 0.7 10^3/uL (0.0- 0.8) 01/01/21 04:47 Baso # (Auto) 0.1 10^3/uL (0.0- 0.1) 01/01/21 04:47 Nucleated RBC % (a uto) 0 % 01/01/21 04:47 Nucleated RBCs # 0.0 /100WBC 01/01/21 04:47 D-Dimer 3.96 ug/mIFEU (0- 0.59) H 12/30/20 05:30 Specimen Type Arterial 12/30/20 05:24 Sample Site Radial, right 12/30/20 05:24 ABG pH 7.34 (7.35-7.45) L 12/30/20 05:24 ABG pCO2 58.1 mmHg (35-45) H 12/30/20 05:24 ABG pO2 155.0 mmHg (80.0- 100.0) H 12/30/20 05:24 ABG HCO3 31.6 mmol/L (22-2 6) H 12/30/20 05:24 ABG Base Excess 4.6 mmol/L (-2.0- 2.0) H 12/30/20 05:24 Shantanu Test Pos 12/30/20 05:24 Hematocrit 34.9 % (42-52) L 12/30/20 05:24 Hgb O2 Saturation 97.1 % (95-100) 12/30/20 05:24 Carboxyhemoglobin 1.9 %THgb (0.4-20 .1) 12/30/20 05:24 Methemoglobin 0.7 % (0.4-1.5) 12/30/20 05:24 Total Hemoglobin 11.4 g/dL (14-18) L 12/30/20 05:24 O2 Delivery Device Nrb 12/30/20 05:24 O2 Liters/Min 15.0 % 12/30/20 05:24 Envelope Patternmaker ID [email or web address] 12/30/20 05:24 Sodium 136 mmol/L (136-1 45) 01/01/21 04:47 Potassium 5.1 mmol/L (3.5-5 .1) 01/01/21 04:47 Chloride 97 mmol/L (98-107 ) L 01/01/21 04:47 Carbon Dioxide 27 mmol/L (22-29) 01/01/21 04:47 Anion Gap 17.1 (5-19) 01/01/21 04:47 BUN 31 mg/dL (6-20) H 01/01/21 04:47 Creatinine 6.0 mg/dL (0.7-1. 2) H* 01/01/21 04:47 GFR Calculation 10.1 mL/min (90-1 30) L 01/01/21 04:47 Glucose 113 mg/dL (65-115 ) 01/01/21 04:47 Calculated Osmolal ity 289 mOsm/kg (285- 295) 01/01/21 04:47 Lactic Acid 1.2 mmol/L (0.5-2 .2) 12/30/20 05:30 Calcium 9.0 mg/dL (8.5-10 .5) 01/01/21 04:47 Iron 36 ug/dL (59-158) L 12/31/20 03:22 TIBC 168 mcg/dl 12/31/20 03:22 % Saturation 21.4 % (20-50) 12/31/20 03:22 Unsat Iron Binding 132 ug/dL (112-34 7) 12/31/20 03:22 Total Bilirubin 0.3 mg/dL (0.15-1 .2) 01/01/21 04:47 AST 11 U/L (0-40) 01/01/21 04:47 ALT 11 U/L (0-41) 01/01/21 04:47 Alkaline Phosphata se 95 IU/L (40-130) 01/01/21 04:47 Troponin T Baselin e 64 ng/L (0-15) H 12/30/20 05:30 Troponin T 120 Min [place] 67.45 ng/L (0-15) H 12/30/20 07:33 Delta Troponin T 3.45 ABS# (0-10) 12/30/20 07:33 Troponin T Hi Sens 6Hr 70.35 ng/L (0-15) H 12/30/20 13:19 Troponin T Hi Sens 6Hr Delta 6.35 ng/L (0-12) 12/30/20 13:19 NT-Pro-B Natriuret Pep > 78839 pg/mL (0- 125) H 01/01/21 04:47 Total Protein 7.2 g/dL (6.6-8.7 ) 01/01/21 04:47 Albumin 3.3 g/dL (3.5-5.2 ) L 01/01/21 04:47 Globulin 3.9 g/dL (1.3-4.6 ) 01/01/21 04:47 Procalcitonin 14.79 ng/mL (0-0. 5) H 12/31/20 03:22 TSH 2.18 uIU/mL (0.27 -4.20) 12/30/20 13:19 Urine Color Straw (Yellow) 01/01/21 11:26 Urine Appearance Hazy (CLEAR) A 01/01/21 11:26 Urine pH 8 (5-7) H 01/01/21 11:26 Ur Specific Gravit y 1.010 (1.005-1.0 30) 01/01/21 11:26 Urine Protein 3+ (Negative) H 01/01/21 11:26 Urine Glucose (UA) 1+ (Normal) H 01/01/21 11:26 Urine Ketones Negative (Negati ve) 01/01/21 11:26 Urine Blood Neg (Negative) 01/01/21 11:26 Urine Nitrate Negative (Negati ve) 01/01/21 11:26 Urine Bilirubin Neg (Negative) 01/01/21 11:26 Prot Sulfosalicyli c Acd Negative (Negati ve) 01/01/21 11:26 Urine Urobilinogen Norm mg/dL (Negat rosa) 01/01/21 11:26 Ur Leukocyte Juanita ase Negative (Negati ve) 01/01/21 11:26 Urine RBC Not Reportable 01/01/21 11:26 Urine WBC 0-4 /hpf (0-5) H 01/01/21 11:26 Ur Squamous Epith Cells 5-10 /hpf (0-5) H 01/01/21 11:26 Amorphous Sediment Not Reportable 01/01/21 11:26 Urine Bacteria Trace /hpf (NONE) 01/01/21 11:26 Ur Random Microalb umin 126 ug/dL (0-20) H 01/01/21 11:26 Ur Random Sodium 112 mmol/L 01/01/21 11:26 Ur Random Potassiu m 6 mmol/L 01/01/21 11:26 Ur Random Chloride 58 mmol/L 01/01/21 11:26 Urine Creatinine 25 mg/dL (39-259) L 01/01/21 11:26 Urine Creatinine 26 mg/dL (39-259) L 01/01/21 11:26 Microalb/Creat Rat io 4846 mg/dL (0-20) H 01/01/21 11:26 Nasal/Oral COVID-1 9 PCR Not detected 12/30/20 11:30 Hepatitis A IgM Ab Non-reactive (No nreactive) 12/30/20 13:19 Hep Bs Antigen Non-reactive (No nreactive) 12/30/20 13:19 Hep Bs Antibody 3.5 (11.5-1000) L 12/30/20 13:19 Hep B Core Total A b Non-reactive (No nreactive) 12/30/20 13:19 Hepatitis C Antibo dy Non-reactive (No nreactive) 12/30/20 13:19 SARS-CoV-2 Ag (Rap id) Negative (Negati ve) 12/31/20 04:00 Impressions Chest CTA 12/30/20 10:55 IMPRESSION: 1. Small right pleural fluid collection. 2. Severe calcified coronary artery disease. 3. Borderline to mild mediastinal adenopathy which may be reactive. 4. No pulmonary embolus or aortic dissection. Radiation Dose CTDIVOL = (mGy): DLP = 515.69 (mGy-cm) Chest X-Ray 01/01/21 08:52 IMPRESSION: Presumed resolving pulmonary edema. Vitals: Last Vital Signs Temp 97.6 F 01/01/21 12:00 Pulse 59 L 01/01/21 12:00 Resp 23 H 01/01/21 12:00 BP 138/81 01/01/21 12:00 Pulse Ox 97 01/01/21 12:00 Discharge Plan Discharge Patient Disposition: Home Condition: Stable Prescriptions: New losartan 50 mg Tablet 100 mg PO DAILY 30 Days Qty: 60 RF: 0 carvedilol 25 mg Tablet 25 mg PO BID@0900,2100 30 Days Qty: 60 RF: 0 hydralazine 100 mg tablet 100 mg PO TID Qty: 90 RF: 0 clonidine HCl 0.2 mg tablet 0.2 mg PO Q8H Qty: 90 RF: 0 Continued Velphoro 500 mg tablet,chewable 500 mg PO TID RF: 0 RenaPlex-D 800 mcg-12.5 mg -2,000 unit tablet 1 tab PO DAILY RF: 0 (DME) Home oxygen See Rx Instructions .Route .MEDSUPPLY Qty: 1 RF: 0 (DME) nebulizers Misc See Rx Instructions .ROUTE .MEDSUPPLY Qty: 1 RF: 0 budesonide 0.5 mg/2 mL suspension for nebulization See Rx Instructions .ROUTE .COMPLEX Qty: 60 RF: 1 albuterol sulfate [Ventolin HFA] 90 mcg/actuation HFA aerosol inhaler 1 inh inhalation Q4H PRN (Reason: shortness of breath or wheezing) Qty: 8.5 RF: 2 amitriptyline 25 mg tablet 25 mg PO DAILY 30 Days Qty: 30 RF: 1 budesonide-formoterol [Symbicort] 160-4.5 mcg/actuation HFA aerosol inhaler 2 puff inhalation BID 30 Days Qty: 10.2 RF: 2 ramelteon 8 mg tablet 8 mg PO DAILY 30 Days Qty: 30 RF: 0 metolazone 5 mg tablet 2.5 mg PO DAILY RF: 0 furosemide 80 mg tablet 80 mg PO BID RF: 0 pantoprazole 40 mg tablet,delayed release (DR/EC) 40 mg PO BID RF: 0 nifedipine 90 mg tablet extended release 90 mg PO DAILY 30 Days Qty: 30 RF: 2 ondansetron HCl [Zofran] 4 mg tablet 4 mg PO Q6H PRN (Reason: nausea and vomiting) Qty: 20 RF: 0 Discontinued metoprolol succinate [Toprol XL] 100 mg tablet extended release 24 hr 150 mg PO DAILY RF: 0 hydralazine 50 mg tablet 50 mg PO TID Qty: 90 RF: 2 Discharge Orders: Discharge Order (Routine); Ordered 01/01/21 Ordered By: Lionel Day Referrals: LATRICE Harris, [employer]IST[employer]AR [Primary Care Provider] - 7-10 days Discharge Diet: Regular, Cardiac and Diabetic Discharge Activity: Resume usual activity Patient Instructions: Opioid Safety Activity Restrictions/Additional Instructions: Your antihypertensives have been changed. Please take hydralazine 100 mg 3 times a day, losartan 100 mg once daily, clonidine 0.2 3 times a day, metoprolol has been changed to carvedilol 25 mg twice a day, nifedipine is continued at 90 mg daily. Please follow-up with your primary care provider within next 7 to 10 days with a blood pressure diary. Please check your blood pressure twice daily and maintain a blood pressure diary for further adjustment of antihypertensives. Please follow-up with cardiology/Dr. Sosa for further work-up of resistant hypertension. Please continue to follow-up with regular dialysis Thursday, Thursday, Thursday. Discharge Attestations Time Spent in Discharge Care*: greater than 30 min Specific Discharge Activities: educating patient, educating and/or supporting family/caregiver, discussing with pcp/other providers, discussing with human services case manager/social workers/dc planners, documenting/other paperwork and evaluating patient/reviewing data Status at Discharge: Cognitive status at discharge: cognitively intact, Behavioral status at discharge: cooperative, Functional status at discharge: independent ambulation Overall status at discharge: patient is back to baseline Quality Metrics Clinical Quality Measures During this hospital stay, did patient experience: None Coding Level of Care Code Acute Chg FW DC note Diagnoses Pulmonary edema J81.0 Chronicity: acute Acute respiratory failure with hypoxia J96.01 Hypertensive emergency I16.1 Paroxysmal atrial fibrillation with RVR I48.0 Sepsis A41.9 End stage chronic kidney disease N18.6 Diastolic CHF I50.30 Resistant hypertension I10
--- NOTE | 2021-01-01 14:02 | PC.NURSE ---
Pt to discharge home. Spoke with life partner and she would like for us to arrange transportation home. sales agent business services notified and arranging. Pharmacy notified of need for new meds in hand prior to dc. Meds to be delivered prior to dc. Will monitor.
--- NOTE | 2021-01-01 15:03 | PM.PN ---
Subjective Subjective: Interval history: Feels fine, keen to go home Vitals/I&O/Wt Last Vital Signs Temp 97.9 F 01/01/21 14:13 Pulse 65 01/01/21 14:13 Resp 13 01/01/21 14:13 BP 162/81 01/01/21 14:13 Pulse Ox 95 01/01/21 14:13 01/01/21 01/01/21 01/01/21 06:59 14:59 22:59 Intake Total 476 / 2440.666 410 / 410 Output Total 110 / 4813 Balance 366 / -2372.334 410 / 410 Weight last 48 hrs Weight 97.976 kg Weight 93.7 kg Weight 98.883 kg Physical Exam Narrative: EXAM NARRATIVE: Constitutional: Awake, sleepy HEENT: Wet mucosa, no jvp, non icteric Lungs: Bilaterally rales mostly in the bases CVS: S1 S2, no murmurs Abdo: Soft, BS ok Ext 4: 2+ edema, peripheral perfusion with no cyanosis Neurological: Grossly non-focal Data : 01/01/21 04:47 01/01/21 04:47 Micro: Microbiology 12/31/20 11:05 MRSA Culture - Final Nose 12/30/20 11:37 Blood Culture - Preliminary Blood NEGATIVE TO DATE 12/30/20 11:37 Blood Culture - Preliminary Blood NEGATIVE TO DATE 12/30/20 13:19 Blood Culture - Preliminary Blood NEGATIVE TO DATE 12/30/20 13:19 Blood Culture - Preliminary Blood NEGATIVE TO DATE A&P Additional A&P Information 1. End-stage renal disease Dialysis in outpatient clinic tomorrow Dose medication for GFR less than 15 on dialysis. 2. Shortness of breath Better after UF on HD. Back to 4L NC, his baseline O2 needs 3. Sepsis Blood cultures NGTD 4. Chronic ESRD issues To be dealt with as an outpatient as part of standard monthly care. OK for DC home today from my perspective. Thank you for the consultation as always it is a pleasure to follow these patients with you Matthew Holley MD Nephrology [phone] Patient seen and examined via telemedicine, with the assistance of the bedside RN > 25 min spent in evaluation and mgmt of patient Attestations Medical Necessity Statement*: Eval for ESRD mgmt Coding Level of Care Code Acute Instrumentation Supervisor for Chg Alan
--- NOTE | 2021-01-01 15:55 | PC.NURSE ---
PIV's removed, tolerated well. Pt dressing self. Will not wear monitoring but agrees to wear O2 until dc. Awaiting ride at this time, pt dc education provided r/t new meds and f/u appts with dialysis and PCP.
[2021-01-01 17:12] LABS: Eosinophil Urine No Eosinophils Seen
--- NOTE | 2021-01-01 17:51 | PC.NURSE ---
Pt taken to front entrance in w/c. Medications, paperwork in hand. Pt refused to take O2 despite education. Pt transferred to car from w/c with no assist.
--- NOTE | 2021-01-02 09:55 | PC.SOCIAL ---
discharge follow up call, spoke with patient. patient was at dialysis during phone call. patient denies chest pain or sob. patient picked up new medications from the pharmacy and he is taking as prescribed. patient denies any questions or concerns with new medications. patient has follow up appointment with pcp 01-08. nurse will make patient a follow up appointment to see Dr. Sosa. Patient denies questions or concerns.
== END 2021-01-01 17:50 | disposition home or self-care (01) | DRG 304 ==
LOC: ER 06:58 → ICU 07:46
PROVIDERS: Internal Medicine Nephrology; Admitting Provider Internal Medicine; Emergency Provider Emergency Medicine; PCP Nurse Practitioner Family; Visit Provider Student in an Organized Health Care Education/Training Program
DX: I16.1 Hypertensive emergency (principal); J96.01 Acute respiratory failure with hypoxia; N18.6 End stage renal disease; I50.31 Acute diastolic (congestive) heart failure; J81.0 Acute pulmonary edema; I42.9 Cardiomyopathy, unspecified; F41.8 Other specified anxiety disorders; J44.9 Chronic obstructive pulmonary disease, unspecified; I13.2 Hypertensive heart and chronic kidney disease with heart failure and with stage 5 chronic kidney disease, or end stage renal disease; Z99.2 Dependence on renal dialysis; K21.9 Gastro-esophageal reflux disease without esophagitis; F17.210 Nicotine dependence, cigarettes, uncomplicated; I48.0 Paroxysmal atrial fibrillation; Z86.16 Personal history of COVID-19; I25.10 Atherosclerotic heart disease of native coronary artery without angina pectoris; Z79.51 Long term (current) use of inhaled steroids
CPT/HCPCS: 36415; 36600; 71045; 71275; 80053; 81001; 81003; 82044; 82088; 82436; 82570; 82805; 83540; 83550; 83605; 83880; 84133; 84145; 84244; 84300; 84443; 84484; 85025; 85378; 85999; 86705; 86706; 86709; 86803; 87040; 87340; 87426; 87635; 87641; 90935; 93005; 93306; 94640; 94664; 96365; 96367; 96372; 96375; 99291; J0692; J1644; J1650; J1940; J2250; J3370; J3490; J7050; J7626; Q3014; Q9967

== ENCOUNTER 2021-02-15 13:29 | Observation (INO) | payer MEDICARE, MEDICAID, SELFPAY ==
[2021-02-15] VITALS (7 sets, daily range): BP systolic 137–215; BP diastolic 71–117; PULSE 56–80; RESP 14–18; TEMP 36.6; O2SAT 91–98; BMI 30.4
--- NOTE | 2021-02-15 13:38 | XR_ITS ---
WS: [id number] Exam: XR chest 1V portable [id number] Date/Time of Exam: 02/15/2021 1:54 PM Reason For Exam: ams Comparison 01/01/2021. The lungs are clear and fully expanded. Mild cardiac enlargement. A double lumen right subclavian bobo lysis catheter ends in the lower one third of the SVC. Probable pleural effusion in the right posteri or pulmonary gutter. The mediastinum is not widened. There is progressive osseous destruction of the medial one third of the left humeral head. Etiology is undetermined. XR/XR chest 1V portable [id number] IMPRESSION: 1. Right basal pleural effusion. No acute infiltrates. 2. Mild cardiac enlargement unchanged. 3. Progressive osseous destruction involving the medial one third of the left h umeral head. Etiology is undetermined.
--- NOTE | 2021-02-15 13:38 | CT_ITS ---
WS: [id number] CT HEAD NONCONTRAST HISTORY: ams TECHNIQUE: Contiguous axial imaging performed through the brain in 2.5 mm imaging. Bone and soft tiss ue windows. Sagittal and coronal reformats reviewed. All CT scans at [facility] use at least one of these dose optimization techniques: automated exposure control; mA and/or kV adjustment per pa tient size (includes targeted exams where dose is matched to clinical indication); or iterative recon struction. DLP: 953.04 mGy.cm COMPARISON: None available. No acute intracranial hemorrhage, midline shift or mass effect. Mild atrophy. There are numerous small lacunar infarcts. Bilateral thalamic lacunar infarcts in the L EFT caudate head lacunar infarct. There is a small lacunar infarct in the LEFT ran. There is modera te chronic microvascular ischemic type changes throughout the white matter. Ventricles: Normal size with no hydrocephalus. No inferior displacement of cerebellar tonsils. Paranasal sinuses: As visualized are clear. Mastoid air cells: Well pneumatized. Calvarium and scalp: Skull is intact with no soft tissue edema or swelling. Moderate calcification through the cavernous sinuses. There is also extensive calcification in the di stal LEFT vertebral artery. CT/CT head wo con* [id number] IMPRESSION: 1. No acute intracranial hemorrhage or edema. 2. Mild atrophy with moderate chronic microvascular ischemic changes and multi ple small lacunar infarcts as above.
--- NOTE | 2021-02-15 13:40 | ECG_ITS ---
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 Measurements Intervals [place] Rate: 68 P: 67 [place]: 194 QRS: 35 QRSD: 106 T: 77 QT: 444 QTc: 474 Interpretive Statements SINUS RHYTHM WITH SINUS ARRHYTHMIA LEFT VENTRICULAR HYPERTROPHY AND ST-T CHANGE [VOLTAGE CRITERIA PLUS ST/T ABNORMALITY] Compared to ECG 12/30/2020 11:36:40 ST (T wave) deviation now present Prolonged QT interval no longer present Electronically Signed On 02-15-2021 16:02:40 PATTERN HAND by Qi Brown M.D. [id number]
[2021-02-15 14:29] LABS: Basophils # 0.1 10^3/uL (0.0-0.1); Basophils % 0.8 %; Eosinophils # 0.5 10^3/uL (0.0-0.8); Eosinophils % 4.5 %; Hematocrit 31.7 % (42.0-52.0); Hemoglobin 10.3 g/dL (11.7-16.6); Lymphocytes # 1.4 10^3/uL (0.8-4.8); Lymphocytes % 11.7 %; Mean Corpuscular HGB Conc 32.5 g/dL (30.0-36.0); Mean Corpuscular Hemoglobin 30.8 pg (28.0-34.0); Mean Corpuscular Volume 94.9 fl (80-94); Mean Platelet Volume 8.7 fL (7.4-10.4); Monocytes # 1.3 10^3/uL (0.2-0.9); Monocytes % 11.2 %; Neutrophils # 8.33 10^3/uL (1.8-7.7); Neutrophils % 71.5 %; Nucleated Red Blood Cells % 0 %; Platelet Count 288 10^3/cmm (130-400); Red Blood Count 3.34 10^6/uL (4.1-5.3); Red Cell Distribution Width 14.9 % (12.1-15.1); White Blood Count 11.6 10^3/uL (4.0-10.0)
--- NOTE | 2021-02-15 14:32 | ED_ITS ---
HPI - General Adult General: Chief complaint: General Medical Stated complaint: BEHAVIOR CHANGES, DECREASED LOC Time Seen by Provider: 02/15/21 13:34 History of Present Illness: HPI narrative: Patient is a 45-year-old male past medical history of COPD end-stage renal disease on Thursday dialysis. He is here with complaints of altered mental status and high blood pressure. He finished dialysis today when the clinic stated that they felt that he seem to have altered mental status his blood pressure was also very high 200 systolic. He was transported by EMS at the time he was given 0.1 of clonidine. 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 Denies any drug or toxin ingestions as well as any stimulants or any [id number] supplements. Denies Review of Systems General: Reports: 10 or more systems reviewed and unremarkable except in HPI and below PFSH ED PFSH: Medical History Anxiety and depression Atrial fibrillation COPD (chronic obstructive pulmonary disease) CRF (chronic renal failure) Diastolic CHF Encounter to establish care End stage chronic kidney disease GERD (gastroesophageal reflux disease) Hypertension Hypertension screen Hypoxia Insomnia Lower respiratory tract infection Resistant hypertension Sebaceous cyst Vitamin D deficiency Surgical History H/O circumcision H/O hand surgery right hand with hardware Presence of peritoneal dialysis catheter S/P dialysis catheter insertion (12/12/19) Removed on 04/04/2020 S/P hemodialysis catheter insertion Family History Other Adopted Denies family history of Anesthesia complication Bleeding disorder Social History Smoking and tobacco status: current every day smoker cigarettes [ Other cigarette details: On and off quitting and restarting ] Alcohol intake: never Household members: significant other Marital status: Single Current occupational status: disabled History of recent travel: Yes Details: [place] Out of state: Yes Physical Exam Const: COMMON NORMALS: no acute distress, average body habitus and patient oriented x3; negative for alert EXAM LIMITATIONS: altered mental status GENERAL APPEARANCE: cooperative, comfortable, well kempt and well developed; not in distress ORIENTATION/CONSCIOUSNESS: Yes oriented to person, Yes oriented to place and Yes oriented to time HENMT: COMMON NORMALS: normocephalic, atraumatic and hearing grossly normal bilaterally HEAD & SCALP: normocephalic and atraumatic Eye: COMMON NORMALS: Equal, round and reactive pupils present, EOMs intact bilaterally and conjunctivae normal CONJUNCTIVA: Yes conjunctivae normal PUPIL: Yes Equal, round and reactive pupils present Neck/C-Spine: COMMON NORMALS: full ROM, no lymphadenopathy, supple, no meningeal signs and no JVD Resp: COMMON NORMALS: normal respiratory effort, No retractions, No use of accessory muscles and clear to auscultation bilaterally AUSCULTATION: clear to auscultation bilaterally Cardio: COMMON NORMALS: no JVD, regular rate, regular rhythm, S1 normal heart sound present and S2 normal heart sound present RATE: regular rate RHYTHM: regular rhythm HEART SOUNDS: S1 normal heart sound present and S2 normal heart sound present GI: COMMON NORMALS: Normal to inspection, nondistended, normoactive bowel sounds present, Soft to palpation, non-tender, No hepatosplenomegaly present, no masses and no bruits PALPATION: Yes Soft to palpation and Yes No hepatos plenomegaly present Extremity: COMMON NORMALS: normal to inspection, full ROM, capillary refill normal, no joint enlargement and no clubbing, cyanosis or edema Neuro: MAXIM COMA SCALE: document GCS findings Summit coma scale eye opening: To sound Summit coma scale verbal response: Confused Maxim coma scale motor response: Obey commands Summit coma scale total score: 13 COMMON NORMALS: patient oriented x3, CN's II-XII intact bilaterally, moves all extremities, no focal motor deficits and no sensory deficits noted SENSORIUM/ORIENTATION: No alert, Yes oriented to person, Yes oriented to place, Yes oriented to time, Yes Orientation impaired and Yes somnolent MENINGEAL SIGNS: Yes no meningeal signs Psych: COMMON NORMALS: mental status grossly normal, Normal thought process present and cooperative APPEARANCE: Yes well kempt THOUGHT PROCESS: Normal thought process present Skin: COMMON NORMALS: no rashes or lesions noted, no wounds, turgor normal, no jaundice and no petechiae GENERAL SKIN EXAM: no rashes or lesions noted and turgor normal Course ED course: We will start patient on nicardipine drip try to get his blood pressure down to 160 see that changes in mental status. EKG troponin chest x- ray to look for any other signs of is mental status changes. CT on his head as well CT shows multiple bilateral lacunar infarcts discussed with the radiologist to agrees these are probably old. No acute changes. He does have a very very small pleural effusion. Still waiting on labs and initiation of his calcium channel elsy Patient's labs appear to be at baseline. He does have a mild elevation in his troponin so we'll need to get a 2hour delta on night before ultimate disposition. This will also give us a chance to try to titrate his nicardipine. Currently resting comfortably but still hypertensive We are able to wean him off the nicardipine his blood pressure has been anywhere between 145 155. Return to his baseline mental state. Spoke to hospitalist will admit him for overnight observation. Did have a mild elevation in his troponin which mostly likely due to his acute kidney injury but will need to continue that as well. Vital Signs: Vital signs: Vital Signs Temperature 97.9 F 02/15/21 13:39 Pulse Rate 80 02/15/21 19:06 Respiratory Rate 18 02/15/21 19:06 Blood Pressure 137/71 02/15/21 19:06 Pulse Oximetry 97 02/15/21 19:06 MDM - General Adult MDM Narrative: Medical decision making narrative: Patient is a 45-year-old male here with hypertension end-stage renal disease here with hypertension and altered mental status Differential Diagnosis: Differential Diagnosis: Hypertensive encephalopathy, press, hyperuremic encephalopathy, meningitis Medical Records: Attestation: I reviewed the patient's medical records. Lab Data: Attestation: I reviewed the patient's lab results. Labs: Lab Results 02/15/21 02/15/21 02/15/21 14:19 14:19 14:19 WBC 11.6 10^3/uL H 10 ^3/uL (4.0-10.0) RBC 3.34 10^6/uL L 10 ^6/uL (4.1-5.3) Hgb 10.3 g/dL L g/dL (11.7-16.6) Hct 31.7 % L % (42.0-52.0) MCV 94.9 fl H fl (80-94) MCH 30.8 pg pg (28.0-34.0) MCHC 32.5 g/dL g/dL (30.0-36.0) RDW 14.9 % % (12.1-15.1) Plt Count 288 10^3/cmm 10^3 /cmm (130-400) MPV 8.7 fL fL (7.4-10.4) Neut % (Auto) 71.5 % % Lymph % (Auto) 11.7 % % [place] % (Auto) 11.2 % % Eos % (Auto) 4.5 % % Baso % (Auto) 0.8 % % Neut # (Auto) 8.33 10^3/uL H 10 ^3/uL (1.8-7.7) Lymph # (Auto) 1.4 10^3/uL 10^3/ uL (0.8-4.8) [place] # (Auto) 1.3 10^3/uL H 10^ 3/uL (0.2-0.9) Eos # (Auto) 0.5 10^3/uL 10^3/ uL (0.0-0.8) Baso # (Auto) 0.1 10^3/uL 10^3/ uL (0.0-0.1) Nucleated RBC % (a uto) 0 % % Nucleated RBCs # 0.0 /100WBC /100W BC Sodium 134 mmol/L L mmol /L (136-145) Potassium 3.9 mmol/L mmol/L (3.5-5.1) Chloride 89 mmol/L L mmol/ L (98-107) Carbon Dioxide 30 mmol/L H mmol/ L (22-29) Anion Gap 18.9 (5-19) BUN 15 mg/dL mg/dL (6-20) Creatinine 6.0 mg/dL H* mg/d L (0.7-1.2) GFR Calculation 10.1 mL/min L mL/ min (90-130) Glucose 71 mg/dL mg/dL (65-115) Calculated Osmolal ity 277 mOsm/kg L mOs m/kg (285-295) Lactate 0.8 mmol/L mmol/L (0.5-2.2) Calcium 8.7 mg/dL mg/dL (8.5-10.5) Magnesium 1.8 mg/dL mg/dL (1.7-2.3) Total Bilirubin 0.5 mg/dL mg/dL (0.15-1.2) AST 12 U/L U/L (0-40) ALT 8 U/L U/L (0-41) Alkaline Phosphata se 92 IU/L IU/L (40-130) Troponin T Baselin e Troponin T 120 Min [place] Delta Troponin T Total Protein 8.3 g/dL g/dL (6.6-8.7) Albumin 4.1 g/dL g/dL (3.5-5.2) Globulin 4.2 g/dL g/dL (1.3-4.6) TSH 3.17 uIU/mL uIU/m L (0.27-4.20) Salicylates < 0.3 mg/dL L mg/ dL (3-10) Acetaminophen < 5.0 ug/mL L ug/ mL (10-30) Ethyl Alcohol < 10 mg/dL mg/dL (0-10) 02/15/21 02/15/21 14:19 17:02 WBC RBC Hgb Hct MCV MCH MCHC RDW Plt Count MPV Neut % (Auto) Lymph % (Auto) [place] % (Auto) Eos % (Auto) Baso % (Auto) Neut # (Auto) Lymph # (Auto) [place] # (Auto) Eos # (Auto) Baso # (Auto) Nucleated RBC % (a uto) Nucleated RBCs # Sodium Potassium Chloride Carbon Dioxide Anion Gap BUN Creatinine GFR Calculation Glucose Calculated Osmolal ity Lactate Calcium Magnesium Total Bilirubin AST ALT Alkaline Phosphata se Troponin T Baselin e 85 ng/L H ng/L (0-15) Troponin T 120 Min [place] 90.10 ng/L H ng/L (0-15) Delta Troponin T 5.10 ABS# ABS# (0-10) Total Protein Albumin Globulin TSH Salicylates Acetaminophen Ethyl Alcohol EKG Data^: EKG 1: Attestation: I personally reviewed and interpreted this EKG as follows: EKG interpretation date: 02/15/21 EKG interpretation time: 14:55 Interpretation: Normal sinus rhythm rate 68 intervals normal axis normal left ventricular hypertrophy Computer generated interpretation: Chest X-Ray 02/15/21 13:38 IMPRESSION: 1. Right basal pleural effusion. No acute infiltrates. 2. Mild cardiac enlargement unchanged. 3. Progressive osseous destruction involving the medial one third of the left hu meral head. Etiology is undetermined. Head CT 02/15/21 13:38 IMPRESSION: 1. No acute intracranial hemorrhage or edema. 2. Mild atrophy with moderate chronic microvascular ischemic changes and multiple small lacunar infarcts as above. Discharge Plan Discharge Prescriptions: No Action Velphoro 500 mg tablet,chewable See Rx Instructions .ROUTE .COMPLEX RF: 0 Yupelri 175 mcg/3 mL solution for nebulization 175 mcg inhalation DAILY RF: 0 RenaPlex-D 800 mcg-12.5 mg -2,000 unit tablet 1 tab PO DAILY RF: 0 (DME) Home oxygen See Rx Instructions .Route .MEDSUPPLY Qty: 1 RF: 0 (DME) nebulizers Misc See Rx Instructions .ROUTE .MEDSUPPLY Qty: 1 RF: 0 losartan 100 mg tablet 100 mg PO DAILY RF: 0 budesonide-formoterol [Symbicort] 160-4.5 mcg/actuation HFA aerosol inhaler 2 puff inhalation BID 30 Days Qty: 10.2 RF: 2 albuterol sulfate [Ventolin HFA] 90 mcg/actuation HFA aerosol inhaler 2 inh inhalation Q4H PRN (Reason: shortness of breath or wheezing) Qty: 8.5 RF: 2 furosemide 80 mg tablet 80 mg PO BID Qty: 180 RF: 0 metolazone 5 mg tablet 5 mg PO .ON MON,WED,FRI RF: 0 pantoprazole 40 mg tablet,delayed release (DR/EC) 40 mg PO BID RF: 0 hydralazine 100 mg tablet 100 mg PO TID Qty: 90 RF: 0 clonidine HCl 0.2 mg tablet 0.2 mg PO Q8H Qty: 90 RF: 0 ondansetron HCl [Zofran] 4 mg tablet 4 mg PO Q6H PRN (Reason: nausea and vomiting) Qty: 20 RF: 0 Coreg 25 mg Tablet 25 mg PO BID RF: 0 ondansetron HCl 8 mg tablet 8 mg PO Q8H PRN (Reason: Nausea And Vomiting) RF: 0 Tylenol Ex Str Rapid Release 500 mg Tablet 1,000 mg PO Q4H PRN (Reason: Pain) RF: 0 isosorbide mononitrate 120 mg tablet extended release 24 hr 120 mg PO DAILY RF: 0 nifedipine 90 mg tablet extended release 90 mg PO QAM RF: 0 amitriptyline 25 mg tablet 25 mg PO BEDTIME RF: 0 budesonide 0.5 mg/2 mL suspension for nebulization 0.5 mg inhalation BID RF: 0 ramelteon 8 mg tablet 8 mg PO BEDTIME RF: 0 Coding Level of Care Code ED Aircraft Hydraulic Equipment Mechanic for Chg Fwd Exam Comprehensive
[2021-02-15] MEDS: nicardipine 20 MG/200 ML PREMIX 50 MG IV (14:39)
[2021-02-15 14:48] LABS: Lactate (Lactic Acid level) 0.8 mmol/L (0.5-2.2)
[2021-02-15 14:53] LABS: Troponin(5th) Baseline 85 ng/L (0-15)
[2021-02-15 15:02] LABS: Alanine Aminotransferase 8 U/L (0-41); Albumin Level 4.1 g/dL (3.5-5.2); Alkaline Phosphatase 92 IU/L (40-130); Anion Gap 18.9 (5-19); Aspartate Amino Transferase 12 U/L (0-40); Blood Urea Nitrogen 15 mg/dL (6-20); Calcium 8.7 mg/dL (8.5-10.5); Carbon Dioxide 30 mmol/L (22-29); Chloride 89 mmol/L (98-107); Globulin 4.2 g/dL (1.3-4.6); Glomerular Filtration Rate 10.1 mL/min (90-130); Glucose 71 mg/dL (65-115); Magnesium 1.8 mg/dL (1.7-2.3); Osmolality Calculated 277 mOsm/kg (285-295); Potassium 3.9 mmol/L (3.5-5.1); Sodium 134 mmol/L (136-145); Thyroid Stimulating Hormone 3.17 uIU/mL (0.27-4.20); Total Bilirubin 0.5 mg/dL (0.15-1.2); Total Protein 8.3 g/dL (6.6-8.7)
[2021-02-15 15:12] LABS: Acetaminophen < 5.0 ug/mL (10-30); Alcohol Level < 10 mg/dL (0-10); Salicylate < 0.3 mg/dL (3-10)
--- NOTE | 2021-02-15 15:40 | ECG_ITS ---
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 Measurements Intervals [place] Rate: 59 P: 59 LA: 205 QRS: 5 QRSD: 101 T: 81 QT: 467 QTc: 466 Interpretive Statements SINUS BRADYCARDIA NONSPECIFIC T-WAVE ABNORMALITY PROLONGED QT INTERVAL Compared to ECG 02/15/2021 15:59:05 Prolonged QT interval now present Sinus rhythm no longer present T-wave abnormality still present Electronically Signed On 02-16-2021 22:11:55 ADVERTISING SALES CONSULTANT by Shanna Sosa M.D. [email or web address] [id number]
--- NOTE | 2021-02-15 16:39 | PC.PHAR ---
pts verified the pts medications-notes are made in the pharmacy comments
--- NOTE | 2021-02-15 19:40 | ECG_ITS ---
[facility] Test Date: 2021-02-15 Pat Name: Leopoldo Schaefer Department: Room: Gender: Male Detasseler: : 1975 Requested By: Kb Allen Order Number: [id number] Roderick MD: Qi Brown M.D. Measurements Intervals [place] Rate: 79 P: 72 WV: 196 QRS: 38 QRSD: 106 T: 97 QT: 417 QTc: 479 Interpretive Statements SINUS RHYTHM NONSPECIFIC T-WAVE ABNORMALITY Compared to ECG 02/15/2021 14:25:22 T-wave abnormality now present Sinus arrhythmia no longer present Left ventricular hypertrophy no longer present ST (T wave) deviation no longer present Electronically Signed On 02-15-2021 16:14:52 CUFF MAKER by Qi Brown M.D. [id number]
[2021-02-15] MEDS: labetalol 5 mg/mL SDV 20mL 10 MG IVP (20:13)
[2021-02-15 20:59] LABS: Troponin 5 6HR 92.94 ng/L (0-15); Troponin 5 6HR Delta 7.94 ng/L (0-12)
--- NOTE | 2021-02-15 22:00 | PM.HP ---
Providers/Chief Complaint Admitting Physician: Annie Sun MD Primary Care Provider: HALEY Grace Chief Complaint: BEHAVIOR CHANGES, DECREASED LOC History of Present Illness Leopoldo Schaefer is a 45 year old male with a past medical history of COPD, sleep apnea, end-stage renal disease on dialysis Thursday. He was sent over from the dialysis facility due to complaints of high blood pressure in the range of 220 systolic and altered mental status which was described as brief episodes of confusion. He was given 0.1 mg of clonidine in route and sent over to the ER. Initial blood pressure upon arrival was 200/117, transiently was placed on nicardipine drip in the ER after which blood pressure trended down to 130s. CT of the head showed bilateral lacunar infarcts which were chronic appearing in nature. Baseline troponin was mildly elevated. Nicardipine was eventually weaned off of and he is being admitted to the floor in view of hypertensive urgency, transient encephalopathy and elevated troponins. His mentation is currently back to baseline. At the time of my assessment patient is alert awake oriented. Review of Systems General: Reports: 10 or more systems reviewed and unremarkable except in HPI and below Const: Denies: fever(s), chills or body aches Eyes: Denies: change in vision, blurry vision or photophobia ENMT: Reports: hoarseness; Denies: throat pain, enlarged tonsils, odynophagia or nasal congestion Card: Denies: chest pain, palpitations, irregular heart rhythm, edema, swelling of feet/ankles, lightheadedness, pre-syncope, dyspnea on exertion or orthopnea Resp: Denies: dyspnea, productive cough, non-productive cough, wheezing, stridor, pain on inspiration, change in phlegm color, hemoptysis or chest congestion GI: Denies: abdominal pain, nausea, vomiting, hematemesis, coffee ground emesis, dysphagia, heartburn, diarrhea, constipation, GI cramping, change in stool character, hematochezia or melena : Denies: flank pain, dysuria, urinary frequency, urinary urgency, urinary hesitancy or hematuria Musc: Denies: neck pain, back pain, extremity pain, joint swelling, joint warmth or deformity Neuro: Denies: headache(s), numbness in extremities, weakness in extremities, sensory changes, difficulty walking, frequent falls, dizziness, vertigo, behavioral changes, Slurred speech present or seizure-like activity Psych: Denies: anxiety, depression, suicidal ideation or homicidal ideation Endo: Denies: polyuria, polydipsia, tired all the time, cold intolerance or hot flashes Gene/Lymph: Denies: easy bruising or easy bleeding Medications/Allergies Home Medications Medication Instructions Recorded Confirmed Last Taken Type vit B,C-folic ac 800 mcg-zinc 12.5 1 tab PO DAILY 06/09/19 02/15/21 04/03/20 History mg-selen-D3 2,000 unit-vit E tablet ondansetron HCl [Zofran] 4 mg PO Q6H PRN #20 tab 04/04/20 02/15/21 Unknown Rx Home oxygen #1 ea 08/07/20 02/15/21 Unknown Rx nebulizers #1 ea 08/07/20 02/15/21 Unknown Rx sucroferric oxyhydroxide 500 mg See Rx Instructions .ROUTE .COMPLEX 11/12/20 02/15/21 Unknown History chewable tablet budesonide-formoterol HFA 160 2 puff INHALATION BID 30 Days 12/28/20 02/15/21 Unknown Rx mcg-4.5 mcg/actuation aerosol #10.2 g inhaler metolazone 5 mg PO .ON MON,THU,Thu12/30/20 02/15/21 Unknown History pantoprazole 40 mg PO BID 12/30/20 02/15/21 Unknown History clonidine HCl 0.2 mg PO Q8H #90 tab 01/01/21 02/15/21 Unknown Rx hydralazine 100 mg PO TID #90 tab 01/01/21 02/15/21 Unknown Rx losartan 100 mg tablet 100 mg PO DAILY tab 01/08/21 02/15/21 Unknown History revefenacin 175 mcg/3 mL solution 175 mcg INHALATION DAILY 01/16/21 02/15/21 Unknown History for nebulization albuterol sulfate 90 mcg/actuation 2 inh INHALATION Q4H PRN #8.5 g 01/28/21 02/15/21 Unknown Rx aerosol inhaler furosemide 80 mg tablet 80 mg PO BID #180 tab 01/28/21 02/15/21 Unknown Rx acetaminophen [Tylenol Ex Str 1,000 mg PO Q4H PRN 02/15/21 02/15/21 Unknown History Rapid Release] amitriptyline 25 mg PO BEDTIME 02/15/21 02/15/21 Unknown History budesonide 0.5 mg INHALATION BID 02/15/21 02/15/21 Unknown History carvedilol [Coreg] 25 mg PO BID 02/15/21 02/15/21 Unknown History isosorbide mononitrate 120 mg PO DAILY 02/15/21 02/15/21 Unknown History nifedipine 90 mg PO QAM 02/15/21 02/15/21 Unknown History ondansetron HCl 8 mg PO Q8H PRN 02/15/21 02/15/21 Unknown History ramelteon 8 mg PO BEDTIME 02/15/21 02/15/21 Unknown History Allergies Allergy/AdvReac Type Severity Reaction Status Date / Time Penicillins Allergy ALGY-Hives Verified 02/15/21 16:38 tramadol Allergy ALGY-Hives Verified 02/15/21 16:38 PFSH Acute PFSH: Medical History Anxiety and depression Atrial fibrillation COPD (chronic obstructive pulmonary disease) CRF (chronic renal failure) Diastolic CHF Encounter to establish care End stage chronic kidney disease GERD (gastroesophageal reflux disease) Hypertension Hypertension screen Hypoxia Insomnia Lower respiratory tract infection Resistant hypertension Sebaceous cyst Vitamin D deficiency Surgical History H/O circumcision H/O hand surgery right hand with hardware Presence of peritoneal dialysis catheter S/P dialysis catheter insertion (12/12/19) Removed on 04/04/2020 S/P hemodialysis catheter insertion Family History Other Adopted Denies family history of Anesthesia complication Bleeding disorder Social History Smoking and tobacco status: current every day smoker cigarettes [ Other cigarette details: On and off quitting and restarting ] Alcohol intake: never Household members: significant other Marital status: Single Current occupational status: disabled History of recent travel: Yes Details: [place] Out of state: Yes Vitals/I&O/Wt Last Vital Signs Temp 98.7 F 02/16/21 04:00 Pulse 95 11/20/21 04:46 Resp 18 02/16/21 04:46 BP 220/100 02/16/21 04:10 Pulse Ox 97 02/16/21 04:46 02/15/21 02/15/21 02/16/21 14:59 22:59 06:59 Intake Total 200 / 200 Balance 200 / 200 Weight last 48 hrs Weight 90.718 kg Physical Exam Narrative: EXAM NARRATIVE: General: No acute distress, AO x3 HEENT: PERRLA, pupils bilaterally equal and reactive, pallors not present Chest: Normal vesicular breath sounds, no added sounds, equal good air entry bilaterally CVS: S1-S2 regular, no murmurs, no tachycardia, no gallops, no rubs Abdomen: Soft, nontender, no organomegaly, bowel sounds present Neuro: No focal deficits, no facial deformity, AO x3, power 5/5 in all limbs Extremities: Healthy surgical dressing present on the right hip, mild tenderness, soft no erythema. Data : 02/15/21 14:19 02/15/21 14:19 Micro: Microbiology 02/15/21 17:02 Blood Culture - Preliminary Blood SPECIMEN COLLECTED 02/15/21 14:19 Blood Culture - Preliminary Blood SPECIMEN COLLECTED A&P Assessment and plan (1) Resistant hypertension: Patient presenting from his dialysis center today due to elevated blood pressure in the range of 220s systolic. Improved after being given labetalol 10 mg IV and being placed transiently on nicardipine infusion in the ER. Nicardipine was titrated off once blood pressure reached 130 systolic. He was [facility]. Home doses of hydralazine, isosorbide, carvedilol, clonidine, losartan, nifedipine have been resumed. Status: Acute (2) Encephalopathy, hypertensive: Appears patient had transient mental status changes which may be attributable to hypertensive encephalopathy. This appears to be currently improved, patient is back at baseline mentation, alert awake during my assessment. CT head with mild atrophy and chronic microvascular ischemic changes.. Status: Acute (3) Elevated troponin: Likely related to hypertensive urgency. Trending back troponins to 2019, range of 64-84 is noted. Echocardiogram from December 2020 with normal LVEF 70%, no regional wall motion abnormalities, mild biatrial enlargement. No acute ST-T wave changes on EKG. trend at 2 hrs and 6 hrs Status: Acute Attestations Medical Necessity Statement*: Anticipate greater than 2 midnight admission for management of hypertensive urgency, transient encephalopathy, evaluate elevated troponin. Coding Level of Care Code Acute Gummed Tape Press Operator for g Fwd Diagnoses Resistant hypertension I10 Encephalopathy, hypertensive I67.4 Elevated troponin R77.8
[2021-02-15] MEDS: heparin 5,000 unit/mL INJ 1 mL 5000 UNIT SUBCUT (23:11)
[2021-02-15] MEDS: hyDRALAzine 50 mg Tablet 100 MG PO (23:13)
[2021-02-16] VITALS (11 sets, daily range): BP systolic 149–220; BP diastolic 73–101; PULSE 62–107; RESP 17–20; TEMP 36.5–37.1; O2SAT 92–97
[2021-02-16] MEDS: amitriptyline 25 mg Tablet PO (01:46)
[2021-02-16] MEDS: isosorbide mononitrate ER 60 mg Tablet 120 MG PO (05:02)
--- NOTE | 2021-02-16 05:12 | PC.NURSE ---
LUIZA NOTIFIED THIS NURSE OF PATIENT HAVING A SPO2 LEVEL OF 78% ON ROOM AIR WELL A BLOOD PRESSURE OF 218/101 AUTOMATICALLY 220/100 MANUALLY. THIS NURSE PUT PATIENT ON 2 L OF OXYGEN VIA NASAL CANULA AND PATIENTS O2 IMPROVED TO 88%. THIS NURSE THEN INCREASED OXYGEN TO 3L AND PATIENT SATS IMPROVED TO 93%. PATIENT WAS SLEEPING WITH NO APPARENT SIGNS OF DISTRESS. THIS NURSE NOTIFIED RESPIRATORY AND THE HOSPITALIST. RESPIRATORY CAME AND EVALUATED PATIENT, DR. SOLOMON PROVIDED ORDERS OVER THE PHONE FOR BLOOD PRESSURE MEDICATION AND TO REASSESS IN AN HOUR AND TO CALL HER BACK IF NO CHANGE. THIS NURSE WILL CONTINUE TO MONITOR PATIENT, DO FREQUENT ROUNDING, AND REASSESS PATIENT.
[2021-02-16] MEDS: NIFEdipine ER (24 hr) 30 mg Tablet 90 MG PO (06:17)
[2021-02-16 07:01] LABS: Alanine Aminotransferase 7 U/L (0-41); Albumin Level 3.6 g/dL (3.5-5.2); Alkaline Phosphatase 82 IU/L (40-130); Anion Gap 20.1 (5-19); Aspartate Amino Transferase 10 U/L (0-40); Blood Urea Nitrogen 30 mg/dL (6-20); Calcium 8.5 mg/dL (8.5-10.5); Carbon Dioxide 30 mmol/L (22-29); Chloride 93 mmol/L (98-107); Globulin 3.7 g/dL (1.3-4.6); Glomerular Filtration Rate 7.3 mL/min (90-130); Glucose 91 mg/dL (65-115); Osmolality Calculated 292 mOsm/kg (285-295); Potassium 5.1 mmol/L (3.5-5.1); Sodium 138 mmol/L (136-145); Total Bilirubin 0.3 mg/dL (0.15-1.2); Total Protein 7.3 g/dL (6.6-8.7)
[2021-02-16] MEDS: budesonide 0.5 mg/2 mL Neb INHALATION (08:08)
[2021-02-16] MEDS: losartan 50 mg Tablet 100 MG PO (08:23)
[2021-02-16] MEDS: cloNIDine 0.1 mg Tablet 0.2 MG PO (08:23)
[2021-02-16] MEDS: pantoprazole DR 40 mg Tablet PO (08:24)
[2021-02-16] MEDS: hyDRALAzine 50 mg Tablet 100 MG PO (08:24)
[2021-02-16] MEDS: carvedilol 25 mg Tablet PO (08:24)
[2021-02-16] MEDS: FUROsemide 40 mg Tablet 80 MG PO (08:24)
[2021-02-16] MEDS: heparin 5,000 unit/mL INJ 1 mL 5000 UNIT SUBCUT (08:24)
--- NOTE | 2021-02-16 12:24 | PM.DCS ---
Discharge Providers Date of Admission: 02/15/21 20:59 Date of Discharge: February 16, 2021 Attending Provider at Admission: Annie Sun MD Attending Provider at Discharge: Lionel Day MD Primary Care Provider: HALEY Grace Diagnoses at Discharge Discharge Diagnosis (1) Resistant hypertension: Status: Acute (2) Encephalopathy, hypertensive: Status: Acute (3) Elevated troponin: Status: Acute Reason for Visit Reason for Visit: BEHAVIOR CHANGES, DECREASED LOC Hospital Course Hospital Course Leopoldo Schaefer is a 45 year old male with a past medical history of COPD, sleep apnea, end-stage renal disease on dialysis Thursday. He was sent over from the dialysis facility due to complaints of high blood pressure in the range of 220 systolic and altered mental status which was described as brief episodes of confusion. He was given 0.1 mg of clonidine in route and sent over to the ER. Initial blood pressure upon arrival was 200/117, transiently was placed on nicardipine drip in the ER after which blood pressure trended down to 130s. CT of the head showed bilateral lacunar infarcts which were chronic appearing in nature. Baseline troponin was mildly elevated. Nicardipine was eventually weaned off of and he is being admitted to the floor in view of hypertensive urgency, transient encephalopathy and elevated troponins. His antihypertensives were further adjusted. Patient remained chest pain-free during hospitalization. Patient's mentation is back to baseline once his blood pressures were better controlled. He has been discharged in hemodynamically stable condition with advised to continue his dialysis sessions as before. Physical Exam Narrative: EXAM NARRATIVE: General: No acute distress, AO x3 HEENT: PERRLA, pupils bilaterally equal and reactive, pallors not present Chest: Normal vesicular breath sounds, no added sounds, equal good air entry bilaterally CVS: S1-S2 regular, no murmurs, no tachycardia, no gallops, no rubs Abdomen: Soft, nontender, no organomegaly, bowel sounds present Neuro: No focal deficits, no facial deformity, AO x3, power 5/5 in all limbs Extremities: Healthy surgical dressing present on the right hip, mild tenderness, soft no erythema. Discharge Data Data Completed and Pending: Completed Studies During Hospitalization Category Date Time Status CT head wo con* 7 0450 Urgent Cat Scan 02/15/21 13:38 Completed XR chest 1V sully ble [id number] Urgent Exams 02/15/21 13:38 Completed Pending at discharge Category Date Time Status Blood Culture Sta t Lab 02/15/21 17:02 Results Drug Screen, Urin e Stat Lab 02/15/21 13:38 Uncollected Urinalysis Stat Lab 02/15/21 13:38 Uncollected Labs from last 24 hours 02/16/21 02/15/21 02/15/21 06:04 20:19 17:02 WBC RBC Hgb Hct MCV MCH MCHC RDW Plt Count MPV Neut % (Auto) Lymph % (Auto) [place] % (Auto) Eos % (Auto) Baso % (Auto) Neut # (Auto) Lymph # (Auto) [place] # (Auto) Eos # (Auto) Baso # (Auto) Nucleated RBC % (a uto) Nucleated RBCs # Sodium 138 Potassium 5.1 Chloride 93 L Carbon Dioxide 30 H Anion Gap 20.1 H BUN 30 H Creatinine 8.0 H* GFR Calculation 7.3 L Glucose 91 Calculated Osmolal ity 292 Lactate Calcium 8.5 Magnesium Total Bilirubin 0.3 AST 10 ALT 7 Alkaline Phosphata se 82 Troponin T Baselin e Troponin T 120 Min q[place] 90.10 H Delta Troponin T 5.10 Troponin T Hi Sens 6Hr 92.94 H Troponin T Hi Sens 6Hr Delta 7.94 Total Protein 7.3 Albumin 3.6 Globulin 3.7 TSH Salicylates Acetaminophen Ethyl Alcohol 02/15/21 02/15/21 02/15/21 14:19 14:19 14:19 WBC RBC Hgb Hct MCV MCH MCHC RDW Plt Count MPV Neut % (Auto) Lymph % (Auto) [place] % (Auto) Eos % (Auto) Baso % (Auto) Neut # (Auto) Lymph # (Auto) [place] # (Auto) Eos # (Auto) Baso # (Auto) Nucleated RBC % (a uto) Nucleated RBCs # Sodium 134 L Potassium 3.9 Chloride 89 L Carbon Dioxide 30 H Anion Gap 18.9 BUN 15 Creatinine 6.0 H* GFR Calculation 10.1 L Glucose 71 Calculated Osmolal ity 277 L Lactate 0.8 Calcium 8.7 Magnesium 1.8 Total Bilirubin 0.5 AST 12 ALT 8 Alkaline Phosphata se 92 Troponin T Baselin e 85 H Troponin T 120 Min [place] Delta Troponin T Troponin T Hi Sens 6Hr Troponin T Hi Sens 6Hr Delta Total Protein 8.3 Albumin 4.1 Globulin 4.2 TSH 3.17 Salicylates < 0.3 L Acetaminophen < 5.0 L Ethyl Alcohol < 10 02/15/21 14:19 WBC 11.6 H RBC 3.34 L Hgb 10.3 L Hct 31.7 L MCV 94.9 H MCH 30.8 MCHC 32.5 RDW 14.9 Plt Count 288 MPV 8.7 Neut % (Auto) 71.5 Lymph % (Auto) 11.7 [place] % (Auto) 11.2 Eos % (Auto) 4.5 Baso % (Auto) 0.8 Neut # (Auto) 8.33 H Lymph # (Auto) 1.4 [place] # (Auto) 1.3 H Eos # (Auto) 0.5 Baso # (Auto) 0.1 Nucleated RBC % (a uto) 0 Nucleated RBCs # 0.0 Sodium Potassium Chloride Carbon Dioxide Anion Gap BUN Creatinine GFR Calculation Glucose Calculated Osmolal ity Lactate Calcium Magnesium Total Bilirubin AST ALT Alkaline Phosphata se Troponin T Baselin e Troponin T 120 Min [place] Delta Troponin T Troponin T Hi Sens 6Hr Troponin T Hi Sens 6Hr Delta Total Protein Albumin Globulin TSH Salicylates Acetaminophen Ethyl Alcohol Addt'l Data from Hospital Stay: Laboratory Results WBC 11.6 10^3/uL (4.0 -10.0) H 02/15/21 14:19 RBC 3.34 10^6/uL (4.1 -5.3) L 02/15/21 14:19 Hgb 10.3 g/dL (11.7-1 6.6) L 02/15/21 14:19 Hct 31.7 % (42.0-52.0 ) L 02/15/21 14:19 MCV 94.9 fl (80-94) H 02/15/21 14:19 MCH 30.8 pg (28.0-34. 0) 02/15/21 14:19 MCHC 32.5 g/dL (30.0-3 6.0) 02/15/21 14:19 RDW 14.9 % (12.1-15.1 ) 02/15/21 14:19 Plt Count 288 10^3/cmm (130 -400) 02/15/21 14:19 MPV 8.7 fL (7.4-10.4) 02/15/21 14:19 Neut % (Auto) 71.5 % 02/15/21 14:19 Lymph % (Auto) 11.7 % 02/15/21 14:19 [place] % (Auto) 11.2 % 02/15/21 14:19 Eos % (Auto) 4.5 % 02/15/21 14:19 Baso % (Auto) 0.8 % 02/15/21 14:19 Neut # (Auto) 8.33 10^3/uL (1.8 -7.7) H 02/15/21 14:19 Lymph # (Auto) 1.4 10^3/uL (0.8- 4.8) 02/15/21 14:19 [place] # (Auto) 1.3 10^3/uL (0.2- 0.9) H 02/15/21 14:19 Eos # (Auto) 0.5 10^3/uL (0.0- 0.8) 02/15/21 14:19 Baso # (Auto) 0.1 10^3/uL (0.0- 0.1) 02/15/21 14:19 Nucleated RBC % (a uto) 0 % 02/15/21 14:19 Nucleated RBCs # 0.0 /100WBC 02/15/21 14:19 Sodium 138 mmol/L (136-1 45) 02/16/21 06:04 Potassium 5.1 mmol/L (3.5-5 .1) 02/16/21 06:04 Chloride 93 mmol/L (98-107 ) L 02/16/21 06:04 Carbon Dioxide 30 mmol/L (22-29) H 02/16/21 06:04 Anion Gap 20.1 (5-19) H 02/16/21 06:04 BUN 30 mg/dL (6-20) H 02/16/21 06:04 Creatinine 8.0 mg/dL (0.7-1. 2) H* 02/16/21 06:04 GFR Calculation 7.3 mL/min (90-13 0) L 02/16/21 06:04 Glucose 91 mg/dL (65-115) 02/16/21 06:04 Calculated Osmolal ity 292 mOsm/kg (285- 295) 02/16/21 06:04 Lactate 0.8 mmol/L (0.5-2 .2) 02/15/21 14:19 Calcium 8.5 mg/dL (8.5-10 .5) 02/16/21 06:04 Magnesium 1.8 mg/dL (1.7-2. 3) 02/15/21 14:19 Total Bilirubin 0.3 mg/dL (0.15-1 .2) 02/16/21 06:04 AST 10 U/L (0-40) 02/16/21 06:04 ALT 7 U/L (0-41) 02/16/21 06:04 Alkaline Phosphata se 82 IU/L (40-130) 02/16/21 06:04 Troponin T Baselin e 85 ng/L (0-15) H 02/15/21 14:19 Troponin T 120 Min q[place] 90.10 ng/L (0-15) H 02/15/21 17:02 Delta Troponin T 5.10 ABS# (0-10) 02/15/21 17:02 Troponin T Hi Sens 6Hr 92.94 ng/L (0-15) H 02/15/21 20:19 Troponin T Hi Sens 6Hr Delta 7.94 ng/L (0-12) 02/15/21 20:19 Total Protein 7.3 g/dL (6.6-8.7 ) 02/16/21 06:04 Albumin 3.6 g/dL (3.5-5.2 ) 02/16/21 06:04 Globulin 3.7 g/dL (1.3-4.6 ) 02/16/21 06:04 TSH 3.17 uIU/mL (0.27 -4.20) 02/15/21 14:19 Salicylates < 0.3 mg/dL (3-10 ) L 02/15/21 14:19 Acetaminophen < 5.0 ug/mL (10-3 0) L 02/15/21 14:19 Ethyl Alcohol < 10 mg/dL (0-10) 02/15/21 14:19 Impressions Chest X-Ray 02/15/21 13:38 IMPRESSION: 1. Right basal pleural effusion. No acute infiltrates. 2. Mild cardiac enlargement unchanged. 3. Progressive osseous destruction involving the medial one third of the left humeral head. Etiology is undetermined. Head CT 02/15/21 13:38 IMPRESSION: 1. No acute intracranial hemorrhage or edema. 2. Mild atrophy with moderate chronic microvascular ischemic changes and multiple small lacunar infarcts as above. Vitals: Last Vital Signs Temp 97.7 F 02/16/21 11:21 Pulse 62 02/16/21 11:21 Resp 18 02/16/21 11:21 BP 149/73 02/16/21 11:21 Pulse Ox 95 02/16/21 11:21 Discharge Plan Discharge Patient Disposition: Home Condition: Stable Prescriptions: New clonidine HCl 0.3 mg tablet 0.3 mg PO TID Qty: 90 RF: 0 Continued Velphoro 500 mg tablet,chewable See Rx Instructions .ROUTE .COMPLEX RF: 0 Yupelri 175 mcg/3 mL solution for nebulization 175 mcg inhalation DAILY RF: 0 RenaPlex-D 800 mcg-12.5 mg -2,000 unit tablet 1 tab PO DAILY RF: 0 (DME) Home oxygen See Rx Instructions .Route .MEDSUPPLY Qty: 1 RF: 0 (DME) nebulizers Misc See Rx Instructions .ROUTE .MEDSUPPLY Qty: 1 RF: 0 losartan 100 mg tablet 100 mg PO DAILY RF: 0 budesonide-formoterol [Symbicort] 160-4.5 mcg/actuation HFA aerosol inhaler 2 puff inhalation BID 30 Days Qty: 10.2 RF: 2 albuterol sulfate [Ventolin HFA] 90 mcg/actuation HFA aerosol inhaler 2 inh inhalation Q4H PRN (Reason: shortness of breath or wheezing) Qty: 8.5 RF: 2 furosemide 80 mg tablet 80 mg PO BID Qty: 180 RF: 0 metolazone 5 mg tablet 5 mg PO .ON MON,WED,THU RF: 0 pantoprazole 40 mg tablet,delayed release (DR/EC) 40 mg PO BID RF: 0 hydralazine 100 mg tablet 100 mg PO TID Qty: 90 RF: 0 ondansetron HCl [Zofran] 4 mg tablet 4 mg PO Q6H PRN (Reason: nausea and vomiting) Qty: 20 RF: 0 Coreg 25 mg Tablet 25 mg PO BID RF: 0 ondansetron HCl 8 mg tablet 8 mg PO Q8H PRN (Reason: Nausea And Vomiting) RF: 0 Tylenol Ex Str Rapid Release 500 mg Tablet 1,000 mg PO Q4H PRN (Reason: Pain) RF: 0 isosorbide mononitrate 120 mg tablet extended release 24 hr 120 mg PO DAILY RF: 0 nifedipine 90 mg tablet extended release 90 mg PO QAM RF: 0 amitriptyline 25 mg tablet 25 mg PO BEDTIME RF: 0 budesonide 0.5 mg/2 mL suspension for nebulization 0.5 mg inhalation BID RF: 0 ramelteon 8 mg tablet 8 mg PO BEDTIME RF: 0 Discontinued clonidine HCl 0.2 mg tablet 0.2 mg PO Q8H Qty: 90 RF: 0 Discharge Orders: Discharge Order (Routine); Ordered 02/16/21 Ordered By: Lionel Day Referrals: LATRICE Harris, [employer]TY PLANT SUPERVISOR [Primary Care Provider] - 7-10 days Discharge Diet: Cardiac Discharge Activity: Resume usual activity Patient Instructions: Opioid Safety Activity Restrictions/Additional Instructions: Dose of clonidine has been increased to 0.3 mg 3 times a day. Continue with dialysis sessions as before. Discharge Attestations Time Spent in Discharge Care*: greater than 30 min Specific Discharge Activities: educating patient, discussing with pcp/other providers, discussing with employment evaluator/case manager/social workers/dc planners, documenting/other paperwork and evaluating patient/reviewing data Status at Discharge: Cognitive status at discharge: cognitively intact, Behavioral status at discharge: cooperative, Functional status at discharge: independent ambulation Overall status at discharge: patient is back to baseline Quality Metrics Clinical Quality Measures During this hospital stay, did patient experience: None Coding Level of Care Code Acute g FW DC note Diagnoses Resistant hypertension I10 Encephalopathy, hypertensive I67.4 Elevated troponin R77.8
--- NOTE | 2021-02-16 15:38 | PC.NURSE ---
Patient escorted by staff to transport outside main entrance via wheelchair. Patient denies being sob or any pain at this time. IV removed prior to discharge. Patient not in acute distress. All personal belongings taken by patient out of his room. Patient able to ambulate independently from wheelchair to vehicle independently without any assistance or ambulation issues.
--- NOTE | 2021-02-18 17:04 | PC.RESP ---
Smoking Cessation and Pulmonary Rehab information sent to patient.
== END 2021-02-16 15:40 | disposition home or self-care (01) ==
LOC: ER 20:22 → MEDSURG 23:40
PROVIDERS: Admitting Provider Student in an Organized Health Care Education/Training Program; Emergency Provider Family Medicine; PCP Nurse Practitioner Family; Visit Provider Student in an Organized Health Care Education/Training Program
DX: I10 Essential (primary) hypertension (principal); I67.4 Hypertensive encephalopathy; R77.8 Other specified abnormalities of plasma proteins; J44.9 Chronic obstructive pulmonary disease, unspecified; I48.91 Unspecified atrial fibrillation; I12.0 Hypertensive chronic kidney disease with stage 5 chronic kidney disease or end stage renal disease; N18.6 End stage renal disease; F17.210 Nicotine dependence, cigarettes, uncomplicated; K21.9 Gastro-esophageal reflux disease without esophagitis; F41.9 Anxiety disorder, unspecified; F32.A Depression, unspecified; E55.9 Vitamin D deficiency, unspecified; Z99.2 Dependence on renal dialysis
CPT/HCPCS: 36415; 70450; 71045; 80053; 80307; 83605; 83735; 84443; 84484; 85025; 87040; 93005; 94640; 96365; 96372; 96375; 99285; G0378; J1644; J3490; J7626

== ENCOUNTER 2021-03-15 09:00 | Observation (INO) | payer MEDICARE, MEDICAID, SELFPAY ==
[2021-03-15] VITALS (11 sets, daily range): BP systolic 101–188; BP diastolic 55–126; PULSE 88–114; RESP 11–24; TEMP 36.6–36.7; O2SAT 93–99; BMI 30.1
--- NOTE | 2021-03-15 09:03 | ECG_ITS ---
[facility] Test Date: 2021-03-15 Pat Name: Leopoldo Schaefer Department: Room: Gender: Male Mathematics Academic Chair: : 1975 Requested By: Edwin Stevens Order Number: [id number] Roderick MD: Qi Brown M.D. Measurements Intervals [place] Rate: 90 P: CO: QRS: 31 QRSD: 106 T: 66 QT: 396 QTc: 485 Interpretive Statements ATRIAL FIBRILLATION MODERATE ST DEPRESSION [0.05+ mV ST DEPRESSION] Compared to ECG 02/15/2021 21:47:04 ST (T wave) deviation now present Sinus bradycardia no longer present T-wave abnormality no longer present Prolonged QT interval no longer present Electronically Signed On 03-16-2021 7:35:21 MOTOR COACH BUS DRIVER by Qi Brown M.D. [id number]
--- NOTE | 2021-03-15 09:03 | XR_ITS ---
WS: [id number] XR chest 1V portable [id number] REASON FOR EXAM: chest pain FINDINGS: Transverse left jugular vein double-lumen dialysis catheter in proper position with the tip at the ca voatrial junction. Mild cardiomegaly. Mild tortuosity thoracic aorta. No definite active pulmonary parenchymal or pleural disease. No significant abnormality of the bony thorax. XR/XR chest 1V portable [id number] IMPRESSION: No acute abnormality.
[2021-03-15] MEDS: ondansetron 2 mg/ML SDV 2 mL 4 MG IVP (09:10)
[2021-03-15] MEDS: morphine 4 mg/mL SDV 1 mL IVP (09:11)
[2021-03-15] MEDS: nitroglycerin 1 gm/inch oint Pkt 1 INCH TOPICAL (09:11)
[2021-03-15 09:12] LABS: Basophils # 0.1 10^3/uL (0.0-0.1); Basophils % 0.8 %; Eosinophils # 0.7 10^3/uL (0.0-0.8); Eosinophils % 5.9 %; Hematocrit 29.3 % (42.0-52.0); Hemoglobin 9.7 g/dL (11.7-16.6); Lymphocytes % 17.7 %; Mean Corpuscular HGB Conc 33.1 g/dL (30.0-36.0); Mean Corpuscular Hemoglobin 29.9 pg (28.0-34.0); Mean Corpuscular Volume 90.4 fl (80-94); Mean Platelet Volume 8.9 fL (7.4-10.4); Monocytes # 1.3 10^3/uL (0.2-0.9); Monocytes % 11.7 %; Neutrophils # 7.17 10^3/uL (1.8-7.7); Neutrophils % 63.4 %; Nucleated Red Blood Cells % 0 %; Platelet Count 414 10^3/cmm (130-400); Red Blood Count 3.24 10^6/uL (4.1-5.3); Red Cell Distribution Width 14.2 % (12.1-15.1); White Blood Count 11.3 10^3/uL (4.0-10.0)
--- NOTE | 2021-03-15 09:17 | W.ED.CHESTPA ---
HPI - Chest Pain General: Chief Complaint: Chest Pain Stated Complaint: CHEST PAIN Time Seen by Provider: 03/15/21 09:03 History of Present Illness: HPI narrative: 45-year-old male presents emergency room complaining of chest pain that began while he was at dialysis.. He gets hemodialysis through tunneled catheter in the left subclavian area he was 2 hours into 4-1/2-hour run. He began having chest pain he was disconnected and EMS was called he was brought in initially a STEMI alert was called however review of the EKGs in the field and repeat EKG here did not show any ST elevation Dr. Amos was in the department reviewed EKGs as well. Patient is in atrial fibrillation there are some lateral ST depression. Patient is still complaining of chest pain. He has a known history of coronary artery disease he is on apixaban due to atrial fibrillation his initial presenting rhythm is A. fib. He has some mild shortness of breath and nausea with this as well. He localizes the pain to the right of center in the chest. MD complaint: chest pain Associated symptoms: Deny abdominal pain, dyspnea, fever(s), nausea or vomiting Review of Systems Const: Denies: fever(s), chills, body aches, change in appetite, fatigue or malaise ENMT: Denies: throat pain, ear or mastoid pain, nasal discharge or nasal congestion Card: Denies: chest pain, edema, dyspnea on exertion or orthopnea Resp: Denies: dyspnea, productive cough or non-productive cough GI: Denies: abdominal pain, nausea, vomiting, hematemesis, coffee ground emesis, diarrhea, constipation, bloating, hematochezia or melena : Denies: flank pain, dysuria, urinary frequency or urinary urgency Skin/Breast: Denies: rash or pruritus PFS ED PFSH: Medical History Anemia Anxiety and depression Atrial fibrillation Chest pain COPD (chronic obstructive pulmonary disease) Reports he is on 4 L of oxygen at home CRF (chronic renal failure) Diastolic CHF Elevated troponin Encounter to establish care End stage chronic kidney disease GERD (gastroesophageal reflux disease) Hypertension Hypertension screen Hypoxia Insomnia Lower respiratory tract infection Resistant hypertension Sebaceous cyst Vitamin D deficiency Surgical History H/O circumcision H/O hand surgery right hand with hardware Presence of peritoneal dialysis catheter S/P dialysis catheter insertion (12/12/19) Removed on 04/04/2020 S/P hemodialysis catheter insertion Family History Other Adopted Denies family history of Anesthesia complication Bleeding disorder Social History Smoking and tobacco status: never smoked Alcohol intake: never Household members: significant other Marital status: Single Current occupational status: disabled History of recent travel: Yes Details: [place] Out of state: Yes Physical Exam Const: COMMON NORMALS: no acute distress GENERAL APPEARANCE: cooperative and comfortable ORIENTATION/CONSCIOUSNESS: Yes awake, Yes oriented to person, Yes oriented to place and Yes oriented to time HENMT: COMMON NORMALS: normocephalic, atraumatic and hearing grossly normal bilaterally HEAD & SCALP: normocephalic and atraumatic Neck/C-Spine: COMMON NORMALS: no JVD Lymph: LYMPHATIC: no lymphadenopathy noted and no lymphedema noted Resp: COMMON NORMALS: normal respiratory effort, No retractions, No use of accessory muscles and clear to auscultation bilaterally AUSCULTATION: clear to auscultation bilaterally Cardio: COMMON NORMALS: no JVD, regular rate, regular rhythm and No murmurs present (Cardio) RATE: regular rate RHYTHM: regular rhythm GI: COMMON NORMALS: Soft to palpation and No hepatosplenomegaly present AUSCULTATION: Yes normoactive bowel sounds PALPATION: Yes Soft to palpation, No Tenderness to palpation present (GI), No Guarding due to palpation present (GI) and Yes No hepatosplenomegaly present Extremity: COMMON NORMALS: normal to inspection, capillary refill normal, no clubbing, cyanosis or edema and no calf tenderness GENERAL: Yes edema Neuro: SENSORIUM/ORIENTATION: Yes oriented to person, Yes oriented to place and Yes oriented to time Skin: COMMON NORMALS: no rashes or lesions noted GENERAL SKIN EXAM: no rashes or lesions noted Course Vital Signs: Vital signs: Vital Signs Temperature 97.4 F L 03/17/21 10:24 Pulse Rate 68 03/17/21 10:24 Respiratory Rate 15 03/17/21 10:24 Blood Pressure 169/84 03/17/21 10:24 Pulse Oximetry 93 03/17/21 10:24 MDM - Chest Pain MDM Narrative: Medical decision making narrative: Labs imaging and EKGs reviewed. Patient to be admitted started him on a heparin drip. He has EKG changes ST depression in lateral leads that are very concerning conjunction with his chest pain. Discussed with hospitalist orders written Lab Data: Labs: Lab Results 03/15/21 03/15/21 03/15/21 09:00 09:00 09:00 WBC 11.3 10^3/uL H 10 ^3/uL (4.0-10.0) RBC 3.24 10^6/uL L 10 ^6/uL (4.1-5.3) Hgb 9.7 g/dL L g/dL (11.7-16.6) Hct 29.3 % L % (42.0-52.0) MCV 90.4 fl fl (80-94) MCH 29.9 pg pg (28.0-34.0) MCHC 33.1 g/dL g/dL (30.0-36.0) RDW 14.2 % % (12.1-15.1) Plt Count 414 10^3/cmm H 10 ^3/cmm (130-400) MPV 8.9 fL fL (7.4-10.4) Neut % (Auto) 63.4 % % Lymph % (Auto) 17.7 % % [place] % (Auto) 11.7 % % Eos % (Auto) 5.9 % % Baso % (Auto) 0.8 % % Neut # (Auto) 7.17 10^3/uL 10^3 /uL (1.8-7.7) Lymph # (Auto) 2.0 10^3/uL 10^3/ uL (0.8-4.8) [place] # (Auto) 1.3 10^3/uL H 10^ 3/uL (0.2-0.9) Eos # (Auto) 0.7 10^3/uL 10^3/ uL (0.0-0.8) Baso # (Auto) 0.1 10^3/uL 10^3/ uL (0.0-0.1) Nucleated RBC % (a uto) 0 % % Nucleated RBCs # 0.0 /100WBC /100W BC PT 16.00 SECONDS H S ECONDS (12.1-14.9) INR 1.24 H (0.8-1.2) APTT > 250.0 SECONDS H * SECONDS (23.9-36.7) Sodium 135 mmol/L L mmol /L (136-145) Potassium 3.6 mmol/L mmol/L (3.5-5.1) Chloride 92 mmol/L L mmol/ L (98-107) Carbon Dioxide 22 mmol/L mmol/L (22-29) Anion Gap 24.6 H (5-19) BUN 51 mg/dL H mg/dL (6-20) Creatinine 7.4 mg/dL H* mg/d L (0.7-1.2) GFR Calculation 8.0 mL/min L mL/m in (90-130) Glucose 79 mg/dL mg/dL (65-115) Calculated Osmolal ity 293 mOsm/kg mOsm/ kg (285-295) Calcium 8.9 mg/dL mg/dL (8.5-10.5) Total Bilirubin 0.3 mg/dL mg/dL (0.15-1.2) AST 14 U/L U/L (0-40) ALT 10 U/L U/L (0-41) Alkaline Phosphata se 83 IU/L IU/L (40-130) Troponin T Baselin e Total Protein 7.2 g/dL g/dL (6.6-8.7) Albumin 3.9 g/dL g/dL (3.5-5.2) Globulin 3.3 g/dL g/dL (1.3-4.6) TSH 03/15/21 03/15/21 09:00 09:00 WBC RBC Hgb Hct MCV MCH MCHC RDW Plt Count MPV Neut % (Auto) Lymph % (Auto) [place] % (Auto) Eos % (Auto) Baso % (Auto) Neut # (Auto) Lymph # (Auto) [place] # (Auto) Eos # (Auto) Baso # (Auto) Nucleated RBC % (a uto) Nucleated RBCs # PT INR APTT Sodium Potassium Chloride Carbon Dioxide Anion Gap BUN Creatinine GFR Calculation Glucose Calculated Osmolal ity Calcium Total Bilirubin AST ALT Alkaline Phosphata se Troponin T Baselin e 95 ng/L H ng/L (0-15) Total Protein Albumin Globulin TSH 6.20 uIU/mL H uIU /mL (0.27-4.20) Discharge Plan Discharge Patient Disposition: Admitted As Inpatient Admit Provider: Henry Frazier Clinical Impression: Unstable angina pectoris, Anemia, COPD (chronic obstructive pulmonary disease), Atrial fibrillation, ESRD on dialysis Condition: Stable Discharge Diet: Low Salt Discharge Activity: Increase activity as tolerated Coding Level of Care Code ED Manager Produce for Chg Fwd Exam Comprehensive
[2021-03-15 09:31] LABS: Alanine Aminotransferase 10 U/L (0-41); Albumin Level 3.9 g/dL (3.5-5.2); Alkaline Phosphatase 83 IU/L (40-130); Anion Gap 24.6 (5-19); Aspartate Amino Transferase 14 U/L (0-40); Blood Urea Nitrogen 51 mg/dL (6-20); Calcium 8.9 mg/dL (8.5-10.5); Carbon Dioxide 22 mmol/L (22-29); Chloride 92 mmol/L (98-107); Globulin 3.3 g/dL (1.3-4.6); Glucose 79 mg/dL (65-115); Osmolality Calculated 293 mOsm/kg (285-295); Potassium 3.6 mmol/L (3.5-5.1); Sodium 135 mmol/L (136-145); Total Bilirubin 0.3 mg/dL (0.15-1.2); Total Protein 7.2 g/dL (6.6-8.7)
[2021-03-15 09:35] LABS: Troponin(5th) Baseline 95 ng/L (0-15)
[2021-03-15] MEDS: sodium chloride 0.9% 500 ML 999 ML IV (09:55)
[2021-03-15] MEDS: morphine 4 mg/mL SDV 1 mL 2 MG IVP (09:55)
[2021-03-15 10:03] LABS: INR 1.24 (0.8-1.2)
[2021-03-15 10:25] LABS: Partial Thromboplastin Time > 250.0 SECONDS (23.9-36.7)
--- NOTE | 2021-03-15 11:03 | ECG_ITS ---
[facility] Test Date: 2021-03-15 Pat Name: Leopoldo Schaefer Department: Room: Gender: Male Machine Sewer: : 1975 Requested By: Edwin Stevnes Order Number: [id number] Roderick MD: Qi Brown M.D. Measurements Intervals [place] Rate: 104 P: [place]: QRS: 20 QRSD: 96 T: 87 QT: 346 QTc: 456 Interpretive Statements ATRIAL FIBRILLATION WITH RAPID VENTRICULAR RESPONSE ST DEVIATION AND MODERATE T-WAVE ABNORMALITY, CONSIDER LATERAL ISCHEMIA [-0.1+ mV T-WAVE IN I/aVL/V5/V6] Compared to ECG 03/15/2021 09:03:59 T-wave abnormality now present Possible ischemia now present ST (T wave) deviation no longer present Electronically Signed On 03-16-2021 7:40:58 BEAM PRESS OPERATOR by Qi Brown M.D. [id number] f
--- NOTE | 2021-03-15 11:33 | PC.NURSE ---
Addendum entered by Pita Foreman RN 03/15/21 11:39: Pt will wake when spoken to but appears to be very drowsy, pt falling asleep while talking with pt. Original Note: This RN advised by another staff pt is difficult to wake and is falling asleep while staff is talking with him. This RN went and assessed pt, pt appears to be more somnolent, when asked to smile it appeared to this RN there was a very mild left facial droop, pt had difficulty holding left leg up and slight slur with a couple of his words. This RN requested soraya Underwood RN come evaluate pt as well, Dr. Hansen advised and rounded on pt.
[2021-03-15 11:35] LABS: Troponin 5 2HR 94.23 ng/L (0-15)
[2021-03-15 11:36] LABS: Troponin 5 2HR Delta -0.77 ABS# (0-10)
--- NOTE | 2021-03-15 11:55 | PM.HP ---
Providers/Chief Complaint Primary Care Provider: HALEY Grace Chief Complaint: CHEST PAIN History of Present Illness Leopoldo Schaefer is a 45 year old male who was at dialysis today and had chest discomfort start. Patient has just received some morphine for chest discomfort prior to my arrival, and his history is limited. From the emergency department history as well as patient history I gather that during his dialysis run, approximately 2 hours and, he started having chest discomfort substernally and perhaps a little bit on the right. He reports it was very severe but did not qualify it further. Unknown if it radiated. He reported he had never had chest discomfort like this before. There was concern he might be having an ST elevation myocardial infarction, so cardiology has evaluated his EKG and determined no ST elevation myocardial infarction was present. He reports he has a history of Covid for 5 months ago. He is not vaccinated. In the emergency department he received some nitroglycerin ointment, morphine, and some saline. From my understanding he took his aspirin today. Review of Systems General: Reports: 10 or more systems reviewed and unremarkable except in HPI and below Const: Denies: fever(s) Eyes: Denies: change in vision ENMT: Denies: throat pain Card: Reports: chest pain Resp: Reports: dyspnea GI: Denies: abdominal pain : Denies: flank pain Musc: Denies: neck pain Skin/Breast: Denies: rash Neuro: Denies: headache(s) Psych: Denies: anxiety Endo: Denies: polyuria Gene/Lymph: Denies: easy bruising All/Imm: Denies: urticaria Medications/Allergies Home Medications Medication Instructions Recorded Confirmed Last Taken Type vit B,C-folic ac 800 mcg-zinc 12.5 1 tab PO DAILY 06/09/19 03/15/21 04/03/20 History mg-selen-D3 2,000 unit-vit E tablet ondansetron HCl [Zofran] 4 mg PO Q6H PRN #20 tab 04/04/20 03/15/21 Unknown Rx Home oxygen #1 ea 08/07/20 03/15/21 Unknown Rx nebulizers #1 ea 08/07/20 03/15/21 Unknown Rx sucroferric oxyhydroxide 500 mg See Rx Instructions .ROUTE .COMPLEX 11/12/20 03/15/21 Unknown History chewable tablet budesonide-formoterol HFA 160 2 puff INHALATION BID 30 Days 12/28/20 03/15/21 Unknown Rx mcg-4.5 mcg/actuation aerosol #10.2 g inhaler metolazone 5 mg PO .ON MON,THU,Thu12/30/20 03/15/21 Unknown History pantoprazole 40 mg PO BID 12/30/20 03/15/21 Unknown History hydralazine 100 mg PO TID #90 tab 01/01/21 03/15/21 Unknown Rx losartan 100 mg tablet 100 mg PO DAILY tab 01/08/21 03/15/21 Unknown History revefenacin 175 mcg/3 mL solution 175 mcg INHALATION DAILY 01/16/21 03/15/21 Unknown History for nebulization albuterol sulfate 90 mcg/actuation 2 inh INHALATION Q4H PRN #8.5 g 01/28/21 03/15/21 Unknown Rx aerosol inhaler furosemide 80 mg tablet 80 mg PO BID #180 tab 01/28/21 03/15/21 Unknown Rx acetaminophen 1,000 mg PO Q4H PRN 02/15/21 03/15/21 Unknown History budesonide 0.5 mg INHALATION BID 02/15/21 03/15/21 Unknown History carvedilol [Coreg] 25 mg PO BID 02/15/21 03/15/21 Unknown History isosorbide mononitrate 120 mg PO DAILY 02/15/21 03/15/21 Unknown History nifedipine 90 mg PO QAM 02/15/21 03/15/21 Unknown History ondansetron HCl 8 mg PO Q8H PRN 02/15/21 03/15/21 Unknown History ramelteon 8 mg PO BEDTIME 02/15/21 03/15/21 Unknown History clonidine HCl 0.3 mg PO TID #90 tab 02/16/21 03/15/21 Unknown Rx apixaban 5 mg tablet 5 mg PO BID 30 Days #60 tab 02/19/21 03/15/21 Unknown Rx aspirin 81 mg tablet,delayed 81 mg PO DAILY 30 Days #30 tab 02/19/21 03/15/21 Unknown Rx release atorvastatin 40 mg tablet 40 mg PO DAILY 30 Days #30 tab 02/19/21 03/15/21 Unknown Rx citalopram 10 mg tablet 10 mg PO DAILY 30 Days #30 tab 02/19/21 03/15/21 Unknown Rx hydroxyzine HCl 25 mg tablet 25 mg PO BID PRN 30 Days #60 tab 02/19/21 03/15/21 Unknown Rx amitriptyline 25 mg PO DAILY 03/15/21 03/15/21 Unknown History Allergies Allergy/AdvReac Type Severity Reaction Status Date / Time Penicillins Allergy ALGY-Hives Verified 02/19/21 11:01 tramadol Allergy ALGY-Hives Verified 02/19/21 11:01 PFSH Acute PFSH: Medical History (Updated 03/15/21 @ 12:03 by Henry Frazier MD) Anxiety and depression Atrial fibrillation COPD (chronic obstructive pulmonary disease) Reports he is on 4 L of oxygen at home CRF (chronic renal failure) Diastolic CHF Elevated troponin Encounter to establish care End stage chronic kidney disease GERD (gastroesophageal reflux disease) Hypertension Hypertension screen Hypoxia Insomnia Lower respiratory tract infection Resistant hypertension Sebaceous cyst Vitamin D deficiency Surgical History H/O circumcision H/O hand surgery right hand with hardware Presence of peritoneal dialysis catheter S/P dialysis catheter insertion (12/12/19) Removed on 04/04/2020 S/P hemodialysis catheter insertion Family History Other Adopted Denies family history of Anesthesia complication Bleeding disorder Social History Smoking and tobacco status: never smoked Alcohol intake: never Household members: significant other Marital status: Single Current occupational status: disabled History of recent travel: Yes Details: [place] Out of state: Yes Vitals/I&O/Wt Last Vital Signs Temp 98.1 F 03/15/21 09:38 Pulse 113 H 03/15/21 11:38 Resp 11 L 03/15/21 11:38 BP 101/74 03/15/21 11:38 Pulse Ox 97 03/15/21 11:38 03/14/21 03/15/21 03/15/21 22:59 06:59 14:59 Intake Total 500 / 500 Balance 500 / 500 Weight last 48 hrs Weight 95.164 kg Physical Exam Narrative: EXAM NARRATIVE: General exam is a sleepy white male who will wake up to answer some questions and then fall back asleep. HEENT: Atraumatic normocephalic. Pupils equally round. Oropharynx clear. Neck is supple without lymphadenopathy or thyromegaly Cardiovascular irregular, irregular. No obvious murmur Lungs diminished breath sounds at the bases. A few expiratory wheezes. Abdomen is soft, positive bowel sounds. No obvious organomegaly. exam is deferred Extremities no cyanosis clubbing or edema, cap refill brisk Skin no rash Neuro no obvious focal deficits. Data : 03/15/21 09:00 03/15/21 09:00 Other data: EKG demonstrates atrial fibrillation, possibly underlying flutter with normal axis. ST depression is noted V5 and 6. Flipped T waves noted in aVL, which is old. ST changes laterally in V5 and V6 appear to be new. LFTs are normal Troponin at baseline is 95 with repeat of 94 Chest x-ray demonstrates dialysis catheter line left jugular, no infiltrate A&P Assessment and plan (1) Chest pain: Concerning for unstable angina given EKG changes Cardiology consult Heparin drip. Hold Eliquis currently Continue aspirin Continue beta-elsy Monitor blood pressure closely Continue statin Nitroglycerin drip as needed for chest discomfort Hold antihypertensives currently as he is somewhat hypotensive. Morphine for breakthrough pain Last echocardiogram December 2020 demonstrated preserved EF. Will defer to cardiology if they wish to repeat. Status: Acute (2) Atrial fibrillation: Continue carvedilol Hold Eliquis in case procedure is needed. Placed on heparin drip. Check TSH blood in lab Status: Acute (3) Anemia: Stable. No current evidence for ongoing bleeding Status: Acute (4) COPD (chronic obstructive pulmonary disease): Pulmonary toilet Continue patient's home oxygen Status: Acute Qualifiers: COPD type: unspecified COPD Qualified Code(s): J44.9 - Chronic obstructive pulmonary disease, unspecified (5) CRF (chronic renal failure): Nephrology consult. He receives dialysis 3 times weekly. Status: Acute Qualifiers: Chronic kidney disease stage: stage 5 Qualified Code(s): N18.5 - Chronic kidney disease, stage 5 Additional A&P Information Multiple other medical problems as outlined in his past medical history Full code Heparin will suffice for DVT prophylaxis, currently on heparin drip. Attestations Medical Necessity Statement*: Will need less than 2 midnight stay for evaluation treatment of chest discomfort Time Spent in Patient Care: Greater than 35 minutes Coding Level of Care Code Acute Morning Caregiver for Chg Fwd Diagnoses Chest pain R07.9 Atrial fibrillation I48.91 Anemia D64.9 COPD (chronic obstructive pulmonary disease) J44.9 COPD type: unspecified COPD CRF (chronic renal failure) N18.5 Chronic kidney disease stage: stage 5
--- NOTE | 2021-03-15 14:48 | P.CONIM_ITS ---
Providers/Reason For Consult Consulting Physician/Specialty*: Ashwini Mina DO, telenephrology Reason for Consult*: ESRD Primary Care Provider: HALEY Grace History of Present Illness History of Present Illness Leopoldo Schaefer is a 45 year old male developed chest pain 2 hours into hemodialysis today - sent to ER for evaluation. He is very lethargic and unable to provide history. He denies current chest pain. Per [employer], pts reports he has been in and out of hospital since December. Last week in hospital for 5 days for severe hypertension. Review of Systems General: Reports: ROS unobtainable due to mental status Meds/Allergies Home Medications and Allergies Home Medications Medication Instructions Recorded Confirmed Last Taken Type vit B,C-folic ac 800 mcg-zinc 12.5 1 tab PO DAILY 06/09/19 03/15/21 04/03/20 History mg-selen-D3 2,000 unit-vit E tablet ondansetron HCl [Zofran] 4 mg PO Q6H PRN #20 tab 04/04/20 03/15/21 Unknown Rx Home oxygen #1 ea 08/07/20 03/15/21 Unknown Rx nebulizers #1 ea 08/07/20 03/15/21 Unknown Rx sucroferric oxyhydroxide 500 mg See Rx Instructions .ROUTE .COMPLEX 11/12/20 03/15/21 Unknown History chewable tablet budesonide-formoterol HFA 160 2 puff INHALATION BID 30 Days 12/28/20 03/15/21 Unknown Rx mcg-4.5 mcg/actuation aerosol #10.2 g inhaler metolazone 5 mg PO .ON MON,WED,Thu12/30/20 03/15/21 Unknown History pantoprazole 40 mg PO BID 12/30/20 03/15/21 Unknown History hydralazine 100 mg PO TID #90 tab 01/01/21 03/15/21 Unknown Rx losartan 100 mg tablet 100 mg PO DAILY tab 01/08/21 03/15/21 Unknown History revefenacin 175 mcg/3 mL solution 175 mcg INHALATION DAILY 01/16/21 03/15/21 Unknown History for nebulization albuterol sulfate 90 mcg/actuation 2 inh INHALATION Q4H PRN #8.5 g 01/28/21 03/15/21 Unknown Rx aerosol inhaler furosemide 80 mg tablet 80 mg PO BID #180 tab 01/28/21 03/15/21 Unknown Rx acetaminophen 1,000 mg PO Q4H PRN 02/15/21 03/15/21 Unknown History budesonide 0.5 mg INHALATION BID 02/15/21 03/15/21 Unknown History carvedilol [Coreg] 25 mg PO BID 02/15/21 03/15/21 Unknown History isosorbide mononitrate 120 mg PO DAILY 02/15/21 03/15/21 Unknown History nifedipine 90 mg PO QAM 02/15/21 03/15/21 Unknown History ondansetron HCl 8 mg PO Q8H PRN 02/15/21 03/15/21 Unknown History ramelteon 8 mg PO BEDTIME 02/15/21 03/15/21 Unknown History clonidine HCl 0.3 mg PO TID #90 tab 02/16/21 03/15/21 Unknown Rx apixaban 5 mg tablet 5 mg PO BID 30 Days #60 tab 02/19/21 03/15/21 Unknown Rx aspirin 81 mg tablet,delayed 81 mg PO DAILY 30 Days #30 tab 02/19/21 03/15/21 Unknown Rx release atorvastatin 40 mg tablet 40 mg PO DAILY 30 Days #30 tab 02/19/21 03/15/21 Unknown Rx citalopram 10 mg tablet 10 mg PO DAILY 30 Days #30 tab 02/19/21 03/15/21 Unknown Rx hydroxyzine HCl 25 mg tablet 25 mg PO BID PRN 30 Days #60 tab 02/19/21 03/15/21 Unknown Rx amitriptyline 25 mg PO DAILY 03/15/21 03/15/21 Unknown History Allergies Allergy/AdvReac Type Severity Reaction Status Date / Time Penicillins Allergy ALGY-Hives Verified 02/19/21 11:01 tramadol Allergy ALGY-Hives Verified 02/19/21 11:01 PFSH Acute PFSH: Medical History Anxiety and depression Atrial fibrillation COPD (chronic obstructive pulmonary disease) Reports he is on 4 L of oxygen at home CRF (chronic renal failure) Diastolic CHF Elevated troponin Encounter to establish care End stage chronic kidney disease GERD (gastroesophageal reflux disease) Hypertension Hypertension screen Hypoxia Insomnia Lower respiratory tract infection Resistant hypertension Sebaceous cyst Vitamin D deficiency Surgical History H/O circumcision H/O hand surgery right hand with hardware Presence of peritoneal dialysis catheter S/P dialysis catheter insertion (12/12/19) Removed on 04/04/2020 S/P hemodialysis catheter insertion Family History Other Adopted Denies family history of Anesthesia complication Bleeding disorder Social History Smoking and tobacco status: never smoked Alcohol intake: never Household members: significant other Marital status: Single Current occupational status: disabled History of recent travel: Yes Details: [place] Out of state: Yes Vitals/I&O/Wt Last Vital Signs Temp 98.1 F 03/15/21 09:38 Pulse 113 H 03/15/21 11:38 Resp 11 L 03/15/21 11:38 BP 101/74 03/15/21 11:38 Pulse Ox 97 03/15/21 11:38 03/14/21 03/15/21 03/15/21 22:59 06:59 14:59 Intake Total 500 / 500 Balance 500 / 500 Weight last 48 hrs Weight 95.164 kg Physical Exam Const: GENERAL APPEARANCE: lethargic ORIENTATION/CONSCIOUSNESS: Yes lethargic Eye: COMMON NORMALS: no scleral icterus Neck/C-Spine: OTHER: tunneled IJ HD catheter Extremity: GENERAL: No edema Neuro: SENSORIUM/ORIENTATION: Yes lethargic Data Imaging^: CXR: Radiologist's impression: Transverse left jugular vein double-lumen dialysis catheter in proper position with the tip at the cavoatrial junction. Mild cardiomegaly. Mild tortuosity thoracic aorta. No definite active pulmonary parenchymal or pleural disease. No significant abnormality of the bony thorax. A&P Additional A&P Information 1. ESRD 2. Unstable angina, Hypertension, tachycardia - per cardiology 3. Chronic atrial fibrillation, COPD, home O2 4. Lethargy Recommendation: ABG ordered (history of CO2 retention). Will assess for need for hemodialysis tomorrow. Consult Attestations Medical Necessity Statement: per primary service Time Spent in Patient Care: 16 - 35 minutes Coding Level of Care Code Acute Email Marketing Assistant for Chg Alan
--- NOTE | 2021-03-15 15:01 | PC.NURSE ---
Addendum entered by Pita Foreman RN 03/15/21 15:03: Hospitalist talking with pt via Tele[employer], advised hospitalist of concern and information that was relayed to this RN about recent hospitalizations. Per pt has been hospitalized 5-6 times since beginning of December. Original Note: Returning call to pts , states that pt was just discharged from [facility] this past Thursday after being admitted for a week for SOB and HTN, with consistant BP readings of 200s/100s. given update, left phone number to call with any questions. [place]; [phone]
--- NOTE | 2021-03-15 15:03 | ECG_ITS ---
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 Measurements Intervals [place] Rate: 102 P: MD: QRS: 14 QRSD: 106 T: 68 QT: 360 QTc: 469 Interpretive Statements ATRIAL FIBRILLATION WITH RAPID VENTRICULAR RESPONSE NONSPECIFIC T-WAVE ABNORMALITY Compared to ECG 03/15/2021 13:47:59 Possible ischemia no longer present T-wave abnormality still present Electronically Signed On 03-16-2021 7:40:33 FARM HAND by Qi Brown M.D. [email or web address]
[2021-03-15 15:55] LABS: ABG PCO2 46.6 mmHg (35-45); Alveolar-Arterial Oxygen Gradi 11.5 mmHg (5-10); Base Excess ABG 3.6 mmol/L (-2.0-2.0); Blood Gas Allen Test Pos; Blood Gas Operator Identificat AMH; Blood Gas Sample Site Radial, right; Blood Gas Sample Type Arterial; Carboxyhemoglobin 2.4 %THgb (0.4-20.1); HCO3 ABG 28.9 mmol/L (22-26); HGB O2 Sat 93.2 % (95-100); Ionized Calcium Level - ABG 1.2 mmol/L (1.1-1.4); Methemoglobin 1.2 % (0.4-1.5); Oxygen Device NC; Oxygen Saturation ABG 96.6; PO2 ABG 81.5 mmHg (80.0-100.0); Potassium Level - ABG 4.7 mmol/L (3.5-5.0); Total Hemoglobin 9.8 g/dL (14-18)
[2021-03-15 16:20] LABS: Troponin 5 6HR 123.6 ng/L (0-15); Troponin 5 6HR Delta 28.6 ng/L (0-12)
[2021-03-15] MEDS: heparin drip 25,000 UNIT/500 ML PREMIX 26.65 UNIT IV (17:25)
--- NOTE | 2021-03-15 18:57 | P.CONIM_ITS ---
Providers/Reason For Consult Consulting Physician/Specialty*: Cardiology Reason for Consult*: Non-ST elevation MA Attending Physician: Henry Frazier MD Primary Care Provider: HALEY Grace History of Present Illness History of Present Illness Leopoldo Schaefer is a 45 year old male past medical history chronic significant for kidney disease on dialysis uncontrolled hypertension continuous tobacco abuse presented with chest pain during dialysis mostly towards the right side according to the patient it was pretty constant and intense initial troponin was 94 with 6-hour he was started on heparin and loaded with Plavix. He takes apixaban, he has history of diastolic heart failure on metolazone and Lasix. Twelve-lead EKG skin atrial fibrillation without significant ST changes. Initially ST elevation MA was called which was aborted upon seeing the EKG. Currently he is chest pain-free. Review of Systems General: Reports: 10 or more systems reviewed and unremarkable except in HPI and below and ROS unobtainable due to mental status Const: Denies: fever(s), chills, body aches, change in appetite, fatigue or m alaise Eyes: Denies: change in vision or photophobia ENMT: Denies: throat pain, enlarged tonsils, ear or mastoid pain, nasal discharge or nasal congestion Card: Reports: chest pain; Denies: edema, dyspnea on exertion or orthopnea Resp: Reports: dyspnea; Denies: productive cough or non-productive cough GI: Denies: abdominal pain, nausea, vomiting, hematemesis, coffee ground emesis, diarrhea, constipation, bloating, hematochezia or melena : Denies: flank pain, dysuria, urinary frequency or urinary urgency Musc: Denies: neck pain or joint warmth Skin/Breast: Denies: rash or pruritus Neuro: Denies: headache(s) Psych: Denies: anxiety Endo: Denies: polyuria Gene/Lymph: Denies: easy bruising All/Imm: Denies: urticaria Meds/Allergies Home Medications and Allergies Home Medications Medication Instructions Recorded Confirmed Last Taken Type vit B,C-folic ac 800 mcg-zinc 12.5 1 tab PO DAILY 06/09/19 03/15/21 04/03/20 History mg-selen-D3 2,000 unit-vit E tablet ondansetron HCl [Zofran] 4 mg PO Q6H PRN #20 tab 04/04/20 03/15/21 Unknown Rx Home oxygen #1 ea 08/07/20 03/15/21 Unknown Rx nebulizers #1 ea 08/07/20 03/15/21 Unknown Rx sucroferric oxyhydroxide 500 mg See Rx Instructions .ROUTE .COMPLEX 11/12/20 03/15/21 Unknown History chewable tablet budesonide-formoterol HFA 160 2 puff INHALATION BID 30 Days 12/28/20 03/15/21 Unknown Rx mcg-4.5 mcg/actuation aerosol #10.2 g inhaler metolazone 5 mg PO .ON MON,WED,FRI 12/30/20 03/15/21 Unknown History pantoprazole 40 mg PO BID 12/30/20 03/15/21 Unknown History hydralazine 100 mg PO TID #90 tab 01/01/21 03/15/21 Unknown Rx losartan 100 mg tablet 100 mg PO DAILY tab 01/08/21 03/15/21 Unknown History revefenacin 175 mcg/3 mL solution 175 mcg INHALATION DAILY 01/16/21 03/15/21 Unknown History for nebulization albuterol sulfate 90 mcg/actuation 2 inh INHALATION Q4H PRN #8.5 g 01/28/21 03/15/21 Unknown Rx aerosol inhaler furosemide 80 mg tablet 80 mg PO BID #180 tab 01/28/21 03/15/21 Unknown Rx acetaminophen 1,000 mg PO Q4H PRN 02/15/21 03/15/21 Unknown History budesonide 0.5 mg INHALATION BID 02/15/21 03/15/21 Unknown History carvedilol [Coreg] 25 mg PO BID 02/15/21 03/15/21 Unknown History isosorbide mononitrate 120 mg PO DAILY 02/15/21 03/15/21 Unknown History nifedipine 90 mg PO QAM 02/15/21 03/15/21 Unknown History ondansetron HCl 8 mg PO Q8H PRN 02/15/21 03/15/21 Unknown History ramelteon 8 mg PO BEDTIME 02/15/21 03/15/21 Unknown History clonidine HCl 0.3 mg PO TID #90 tab 02/16/21 03/15/21 Unknown Rx apixaban 5 mg tablet 5 mg PO BID 30 Days #60 tab 02/19/21 03/15/21 Unknown Rx aspirin 81 mg tablet,delayed 81 mg PO DAILY 30 Days #30 tab 02/19/21 03/15/21 Unknown Rx release atorvastatin 40 mg tablet 40 mg PO DAILY 30 Days #30 tab 02/19/21 03/15/21 Unknown Rx citalopram 10 mg tablet 10 mg PO DAILY 30 Days #30 tab 02/19/21 03/15/21 Unknown Rx hydroxyzine HCl 25 mg tablet 25 mg PO BID PRN 30 Days #60 tab 02/19/21 03/15/21 Unknown Rx amitriptyline 25 mg PO DAILY 03/15/21 03/15/21 Unknown History Allergies Allergy/AdvReac Type Severity Reaction Status Date / Time Penicillins Allergy ALGY-Hives Verified 02/19/21 11:01 tramadol Allergy ALGY-Hives Verified 02/19/21 11:01 Current Medications Current Medications Generic Name Dose Route Start Last Admin Trade Name Freq PRN Reason Stop Dose Admin Heparin Sodium/Sodium Chloride 25,000 unit in 500 mls @ 0 mls/hr 03/15/21 12:15 03/15/21 17:25 Heparin Drip IV 14 unit/kg/hr .Q0M FRANCISCO 26.65 mls/hr Administration Protocol Per Protocol PFSH Acute PFSH: Medical History Anxiety and depression Atrial fibrillation COPD (chronic obstructive pulmonary disease) Reports he is on 4 L of oxygen at home CRF (chronic renal failure) Diastolic CHF Elevated troponin Encounter to establish care End stage chronic kidney disease GERD (gastroesophageal reflux disease) Hypertension Hypertension screen Hypoxia Insomnia Lower respiratory tract infection Resistant hypertension Sebaceous cyst Vitamin D deficiency Surgical History H/O circumcision H/O hand surgery right hand with hardware Presence of peritoneal dialysis catheter S/P dialysis catheter insertion (12/12/19) Removed on 04/04/2020 S/P hemodialysis catheter insertion Family History Other Adopted Denies family history of Anesthesia complication Bleeding disorder Social History Smoking and tobacco status: never smoked Alcohol intake: never Household members: significant other Marital status: Single Current occupational status: disabled History of recent travel: Yes Details: [place] Out of state: Yes Dietary Habits: Current diet type/program: regular Vitals/I&O/Wt Last Vital Signs Temp 98.1 F 03/15/21 09:38 Pulse 113 H 03/15/21 11:38 Resp 11 L 03/15/21 11:38 BP 101/74 03/15/21 11:38 Pulse Ox 97 03/15/21 11:38 03/15/21 03/15/21 03/15/21 06:59 14:59 22:59 Intake Total 500 / 500 Balance 500 / 500 Weight last 48 hrs Weight 209 lb 12.8 oz Physical Exam Narrative: EXAM NARRATIVE: GENERAL: Patient is alert, awake and oriented x3. NECK: No jugular vein distension. HEENT: No cyanosis. No icterus. No pallor. HEART: Regular S1 and S2. No murmur, rub or gallop. LUNGS: Clear to auscultate bilaterally. ABDOMEN: Soft, nontender and nondistended. Positive bowel sounds. No guarding, rebound or tenderness. CENTRAL NERVOUS SYSTEM: Grossly nonfocal. EXTREMITIES: Lower extremities without edema bilaterally. A&P Assessment and plan (1) Non-ST elevation MA (NSTEMI): Patient is moderate to high risk for acute coronary syndrome, he has history of uncontrolled hypertension continuous tobacco abuse. Chest pain with elevated cardiac markers may need to be assessed further with left heart cath versus stress test. Since he is high risk and because affect is the weekend and we cannot get stress test for him we will proceed with left heart cath over next 24 to 48 hours since he is stable. Status: Acute (2) Atrial fibrillation: Rate controlled continue current regimen Status: Acute Qualifiers: Atrial fibrillation type: unspecified Qualified Code(s): I48.91 - Unspecified atrial fibrillation (3) Diastolic CHF: Continue diuretics, appeared well compensated Status: Acute Qualifiers: Heart failure chronicity: chronic Qualified Code(s): I50.32 - Chronic diastolic (congestive) heart failure (4) Hypertension: Blood pressure is elevated systolic blood pressure around 180/90 I will resume blood pressure medicine with some changes for now since he was hypotensive when he presented. Status: Acute Qualifiers: Hypertension type: essential hypertension Qualified Code(s): I10 - Essential (primary) hypertension (5) CRF (chronic renal failure): Patient is already on dialysis. Will follow nephrology assessment and plan Status: Acute Qualifiers: Chronic kidney disease stage: stage 5 Qualified Code(s): N18.5 - Chronic kidney disease, stage 5 Consult Attestations Medical Necessity Statement: Patient require continuation hospitalization for above defined care. 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
--- NOTE | 2021-03-15 20:04 | PC.NURSE ---
Floor called, report given to SHAWNA Hoover.
--- NOTE | 2021-03-15 21:29 | PC.NURSE ---
Nitro drip ordered for chest discomfort. Patient is not currently having any chest pain. Will start nitro drip per order/protocol if patient begins having chest pain.
--- NOTE | 2021-03-15 21:32 | PC.NURSE ---
Dr. Amos at bedside. Blood pressure 191/136. Ordered 10 mg IV Hydrazine.
--- NOTE | 2021-03-15 21:44 | PC.NURSE ---
Patient states that he has not been taking his Eliquis at home. When viewing his extrernal medication history, it shows that he has been filling his Eliquis. When asking patient about this, he states, oh, I have? Patient gave phone number for [facility] and stated that she would know. Called [facility]. Asuncion stated that he filled the Eliquis, but he has not been taking it for a long time.
[2021-03-15] MEDS: hyDRALAzine 20 mg/mL INJ 1 mL 10 MG IVP (21:50)
--- NOTE | 2021-03-15 21:51 | PC.NURSE ---
Dr. Amos ordered to start nitro drip if systolic blood pressure is still greater than 160 at midnight.
[2021-03-15] MEDS: clopidogrel 300 mg Tablet PO (22:57)
[2021-03-15] MEDS: carvedilol 25 mg Tablet PO (22:57)
[2021-03-15] MEDS: losartan 50 mg Tablet 25 MG PO (22:58)
[2021-03-15] MEDS: pantoprazole DR 40 mg Tablet PO (22:58)
[2021-03-15] MEDS: budesonide 0.5 mg/2 mL Neb INHALATION (23:49)
[2021-03-16] VITALS (81 sets, daily range): BP systolic 93–176; BP diastolic 66–124; PULSE 55–117; RESP 7–40; TEMP 36.8–37; O2SAT 84–99
[2021-03-16 00:07] LABS: Partial Thromboplastin Time 63.9 SECONDS (23.9-36.7)
--- NOTE | 2021-03-16 01:10 | PC.NURSE ---
OUTSIDE SALES REPRESENTATIVE went to prep pt for heart cath in the morning. Pt refused to let OUTSIDE SALES REPRESENTATIVE shave groin stating No. They are not going through my groin . Pt was educated that it was precautionary, but still refused to let OUTSIDE SALES REPRESENTATIVE shave groin.
[2021-03-16 05:09] LABS: Basophils # 0.1 10^3/uL (0.0-0.1); Basophils % 0.9 %; Eosinophils # 0.5 10^3/uL (0.0-0.8); Eosinophils % 6.2 %; Hematocrit 29.4 % (42.0-52.0); Hemoglobin 9.6 g/dL (11.7-16.6); Lymphocytes # 1.3 10^3/uL (0.8-4.8); Lymphocytes % 16.1 %; Mean Corpuscular HGB Conc 32.7 g/dL (30.0-36.0); Mean Corpuscular Hemoglobin 30.3 pg (28.0-34.0); Mean Corpuscular Volume 92.7 fl (80-94); Mean Platelet Volume 9.1 fL (7.4-10.4); Monocytes % 12.5 %; Neutrophils # 4.96 10^3/uL (1.8-7.7); Neutrophils % 63.9 %; Nucleated Red Blood Cells % 0 %; Platelet Count 363 10^3/cmm (130-400); Red Blood Count 3.17 10^6/uL (4.1-5.3); Red Cell Distribution Width 14.2 % (12.1-15.1); White Blood Count 7.8 10^3/uL (4.0-10.0)
[2021-03-16 05:36] LABS: Anion Gap 23.2 (5-19); Blood Urea Nitrogen 65 mg/dL (6-20); Calcium 8.8 mg/dL (8.5-10.5); Carbon Dioxide 22 mmol/L (22-29); Chloride 96 mmol/L (98-107); Glomerular Filtration Rate 5.8 mL/min (90-130); Glucose 94 mg/dL (65-115); Magnesium 1.7 mg/dL (1.7-2.3); Osmolality Calculated 300 mOsm/kg (285-295); Potassium 5.2 mmol/L (3.5-5.1); Sodium 136 mmol/L (136-145)
[2021-03-16] MEDS: ondansetron 2 mg/ML SDV 2 mL 4 MG IVP (07:45)
[2021-03-16 08:15] LABS: Partial Thromboplastin Time 69.4 SECONDS (23.9-36.7)
[2021-03-16] MEDS: budesonide 0.5 mg/2 mL Neb INHALATION (08:38)
[2021-03-16] MEDS: losartan 50 mg Tablet 25 MG PO (09:06)
[2021-03-16] MEDS: isosorbide mononitrate ER 60 mg Tablet 120 MG PO (09:07)
[2021-03-16] MEDS: FUROsemide 40 mg Tablet 80 MG PO ×2 (09:07→20:54)
[2021-03-16] MEDS: aspirin 81 mg EC Tablet PO (09:07)
[2021-03-16] MEDS: carvedilol 25 mg Tablet PO ×2 (09:07→20:53)
[2021-03-16] MEDS: amitriptyline 25 mg Tablet PO (09:07)
[2021-03-16] MEDS: citalopram 20 mg Tablet 10 MG PO (09:08)
[2021-03-16] MEDS: cloNIDine 0.1 mg Tablet 0.3 MG PO ×2 (09:08→20:53)
[2021-03-16] MEDS: atorvastatin 40 mg Tablet PO (09:10)
[2021-03-16] MEDS: pantoprazole DR 40 mg Tablet PO ×2 (09:10→20:55)
--- NOTE | 2021-03-16 12:00 | PM.PN ---
Subjective Subjective: Interval history: Visit performed via telehealth with bedside assistance of RN Denies chest pain, dyspnea. Again falling asleep during conversation, but quickly arouses and answers questions appropriately Medications: Reviewed: Yes Vitals/I&O/Wt Last Vital Signs Temp 98.3 F 03/16/21 03:33 Pulse 86 03/16/21 11:23 Resp 21 H 03/16/21 11:23 BP 173/92 03/16/21 11:23 Pulse Ox 94 03/16/21 11:23 03/15/21 03/16/21 03/16/21 22:59 06:59 14:59 Intake Total 220 / 720 Balance 220 / 720 Weight last 48 hrs Weight 95.141 kg Weight 95.164 kg Physical Exam Const: COMMON NORMALS: no acute distress Data : 03/16/21 04:40 03/16/21 04:40 ABG Interpretation 1: 7.40/46 A&P Additional A&P Information 1. NSTEMI - plan for cardiac catheterization today followed by dialysis 2. ESRD 3. Hypertension 4. Anemia 5. Chronic atrial fibrillation, COPD (O2 dependent) Will defer blood pressure management to cardiology Attestations Medical Necessity Statement*: see above Time Spent in Patient Care: 16 - 35 minutes Coding Level of Care Code Acute Lead Nuclear Medicine Technologist for Shilpa Phillips
--- NOTE | 2021-03-16 12:05 | PM.PN ---
Subjective Subjective: Interval history: Patient is awaiting angiogram, no active chest pain, hypertensive, asked nurse to give his p.o. morning meds he still n.p.o. If stays hypertensive can start nitro drip Vitals/I&O/Wt Last Vital Signs Temp 98.3 F 03/16/21 03:33 Pulse 86 03/16/21 11:23 Resp 21 H 03/16/21 11:23 BP 173/92 03/16/21 11:23 Pulse Ox 94 03/16/21 11:23 03/15/21 03/16/21 03/16/21 22:59 06:59 14:59 Intake Total 220 / 720 Balance 220 / 720 Weight last 48 hrs Weight 95.141 kg Weight 95.164 kg Physical Exam Narrative: EXAM NARRATIVE: Was sitting in his bed No active chest pain No shortness of breath Saturating well on room air Does not look clinically fluid overloaded S1, S2 Mild crackles at the base of the lungs Lower extremity no edema EOMI, PERRLA nonfocal neuro exam Data : 03/16/21 04:40 03/16/21 04:40 A&P Assessment and plan (1) Non-ST elevation OK (NSTEMI): Status: Acute (2) Chest pain: Status: Acute (3) Anemia: Status: Acute (4) Resistant hypertension: Status: Acute Additional A&P Information NSTEMI Currently on heparin drip Plan for angiogram as per cardiology, will follow up with their further recommendations No active chest pain Hypertensive urgency: Asked nurse to give p.o. morning meds and if stays hypertensive can start nitro drip End-stage renal disease Thursday, nephrology on board A. fib without RVR heart rate in 70 to 80s Anemia of chronic disease hemoglobin stable DVT prophylaxis covered with heparin N.p.o. Full code Attestations Medical Necessity Statement*: Awaiting angiogram Time Spent in Patient Care: less than 15 minutes Coding Level of Care Code Acute Patrol Community Service Officer for g Fwd Diagnoses Non-ST elevation OK (NSTEMI) I21.4 Chest pain R07.9 Anemia D64.9 Resistant hypertension I10
--- NOTE | 2021-03-16 12:23 | W.PM.OPSUD ---
Surgery/Procedure H&P Update DATE OF PROCEDURE: March 16, 2021 DATE H&P PERFORMED: 03/15/21 H&P UPDATE INFORMATION: I have reviewed H&P completed within last 30 days, I have examined patient prior to procedure and No changes to prior documentation PREOP DIAGNOSIS: Non-STEMI PATIENT REASSESSED PRIOR TO SEDATION, WITH NO CHANGE NOTED: Yes PHYSICAL EXAM: alert, oriented x 3 and clear to auscultation bilaterally AIRWAY EVAL/ANESTHESIA PLAN: ASA II and Risks, benefits & alternatives of sedation and/or procedure discussed ADDITIONAL INFORMATION: Patient has been explained all risk benefit and alternative for the procedure. He understand risk for major minor bleed contrast-induced nephropathy with worsening of renal function he already had chronic kidney disease end-stage on dialysis, he understand risk for bleeding diathesis major minor bleed he understand risk for urgent emergent CABG stent thrombosis vascular injury pseudoaneurysm. He understand risk for hematoma due to platelet dysfunction and being on antiplatelet therapy. He would like to proceed with it
--- NOTE | 2021-03-16 12:28 | XACV_ITS ---
Exam Room: [facility] Ht: 178 cm Wt: 95 kg BSA: 2.19 m2 Gender: Male : 1975 Any Known Allergies: Other Exam Priority: Routine Procedure(s): Procedure Description: Diagnostic procedure Procedure Description: Coronary Angiography MARY, Bette; Diagnostic Findings * Left Main has no disease. * Left Anterior Descending has no disease. * Circumflex has no disease. * Mid Right Coronary Artery: luminal irregularities 20% stenosis, ALFRED: 3 flow. * Coronary angiography shows right dominance. Conclusions 1. There is luminal irregularities coronary artery disease with one vessel disease. Recommendations * Continue current medical management and risk factor modification. Diagnostic RX Recommendation: medical therapy and/or counseling Pressures Phase:Rest AO : 77 / 59 ( 68 ) @ 10:56:00 AM 75 / 59 ( 68 ) @ 11:00:00 AM Clinical Evaluation EBL: 5mL-10mL Procedural Details Pre-Procedure Time Out. Identified patient by full name and date of as verbalized by the patient/guarantor. Does the consent match the physician's order: Yes. Accurate & Complete Informed Consent: Yes. Inpatient/Outpatient History & Physical on Chart: Yes. If H&P is completed, is and addenduem needed: No; If yes, is the addendum complete: N/A. Visualize and Verify Site with Patient/Guarantor: N/A. Relevant Radiology Images available: Yes. Pre-op teaching completed and patient verbalized understanding. The risks, benefits, and alternatives of sedation and/or procedure were discussed by physician. The patient agrees to continue. Procedure started. [facility] Clinical Fraility Score: 4: Vulnerable. Circular Tank Cooper Indications: ACS > 24 hours. Chest Pain Symptom Assessment: Typical Angina Symptoms. Correct patient, site and procedure confirmed by cath team. PERRLA. Strong, equal hand pressing department supervisor bilaterally. Lungs clear x 5 lobes. IV Site on Arrival: 18 gauge in the right anticubital. IV Fluids: 0.9% NaCl at KVO. 0 mL infused prior to director of cath lab. Pre Procedural Pulses: right radial was 3+. Oxygen started at 2liters/min via nasal canula. right radial was prepped with chloroprep then draped in the usual sterile fashion. Baseline sample Acquired. HR: 67 BPM. Physician notified. Physician arrived. Current Diagnosis : NSTEMI. Physician scrubbed in. Immediate Pre-Procedure Time Out. Correct Patient: Yes; Correct Procedure: Yes; Correct Site: Yes; Correct Patient Position: Yes; Correct Supplies: Yes; Dried Flammable Prep: Yes; Blood Products Available: N/A;. Cyndee Nguyen RN circulating. Dr. Brown scrubbing in. Lidocaine 1% infiltrated to the right radial by Dr. Brown. Arterial access obtained by Dr. Brown. A 5 welsh TIG catheter in over wire. Multiple views taken of left coronary artery. Catheter redirected to the RCA. Multiple views taken of right coronary artery. Catheter removed over the exchange wire. A TR Band was successful obtaining hemostatsis at the Right Radial artery insertion site. Post Procedure: Pulses reassessed and unchanged. PERRLA. Strong, equal hand pressing department supervisor bilaterally. No VTE prophylaxis required. Medication's Wasted: Lidocaine 1% = 18 mL. Medication's Wasted: Nitro = 49.8 mg. Total IV fluids: 37 mL. Contrast type used: Visipaque 320 mgI/mL, 500 mL bottle. Complications: None. Vital chart was stopped. Estimated blood loss: 5mL-10mL. Responsiveness - Normal response to verbal stimuli; alert and oriented, PERRLA. Airway - Unaffected, no intervention required; spontaneous ventilation. Circulation: W/N/L, pulses unchanged. Nausea/Vomiting: No. Procedure completed. Patient transferred by bed to 1st floor. Access Site Site: Right Radial artery Sheath Size: 6 Fr Hemostasis Method: TR Band Hemostasis Success: Successful Procedure Medications Start: 12:44 PM Stop: 12:44 PM Medication: Versed Amount: 1 mg Route: I.V. Start: 12:44 PM Stop: 12:44 PM Medication: Versed Amount: 1 mg Route: I.V. Start: 12:44 PM Stop: 12:44 PM Medication: Fentanyl Amount: 50 mcg Route: I.V. Start: 12:51 PM Stop: 12:51 PM Medication: Nitrogylcerin Amount: 200 mcg Route: I.A. I, the attending physician, have reviewed and verified all procedure medications. Yes, all medications given per verbal order History/Risk Factors Dyslipidemia: No Peripheral Arterial Disease (PAD): No Myocardial Infarction (MD): No Obesity: No Renal Disease: No Prior Interventions PCI: No CABG: No Valve Surgery: No Report Signatures Finalized by Paulino Amos MD on 03/19/2021 08:30 PM
--- NOTE | 2021-03-16 13:07 | PM.PN ---
Subjective Subjective: Interval history: Patient underwent coronary angiogram which did not show significant stenosis, mild luminal irregularities of the vessel noted. Most likely chest pain could be pericardial Medications: Reviewed: Yes Vitals/I&O/Wt Last Vital Signs Temp 98.3 F 03/16/21 03:33 Pulse 86 03/16/21 11:23 Resp 21 H 03/16/21 11:23 BP 173/92 03/16/21 11:23 Pulse Ox 94 03/16/21 11:23 03/15/21 03/16/21 03/16/21 22:59 06:59 14:59 Intake Total 220 / 720 Balance 220 / 720 Weight last 48 hrs Weight 209 lb 12 oz Weight 209 lb 12.8 oz Physical Exam Narrative: EXAM NARRATIVE: GENERAL: Patient is alert, awake and oriented x3. NECK: No jugular vein distension. HEENT: No cyanosis. No icterus. No pallor. HEART: Regular S1 and S2. No murmur, rub or gallop. LUNGS: Clear to auscultate bilaterally. ABDOMEN: Soft, nontender and nondistended. Positive bowel sounds. No guarding, rebound or tenderness. CENTRAL NERVOUS SYSTEM: Grossly nonfocal. EXTREMITIES: Lower extremities without edema bilaterally. Const: COMMON NORMALS: alert Resp: COMMON NORMALS: clear to auscultation bilaterally AUSCULTATION: clear to auscultation bilaterally Neuro: SENSORIUM/ORIENTATION: Yes alert Data : 03/16/21 04:40 03/16/21 04:40 A&P Assessment and plan (1) Non-ST elevation DC (NSTEMI): Patient underwent left heart cath noted to have nonobstructive coronary artery disease with mild luminal irregularities without significant stenosis. Most likely troponin leak could be hypertensive urgency/myopericarditis. Continue optimal medical management continue to control the blood pressure. Status: Acute (2) Atrial fibrillation: Rate controlled continue current regimen Status: Acute Qualifiers: Atrial fibrillation type: unspecified Qualified Code(s): I48.91 - Unspecified atrial fibrillation (3) Diastolic CHF: Continue diuretics, appeared well compensated, continue dialysis Status: Acute Qualifiers: Heart failure chronicity: chronic Qualified Code(s): I50.32 - Chronic diastolic (congestive) heart failure (4) Hypertension: Blood pressure is much better we'll optimize further medicine to keep it below 130/80. Status: Acute Qualifiers: Hypertension type: essential hypertension Qualified Code(s): I10 - Essential (primary) hypertension (5) CRF (chronic renal failure): Patient is on dialysis continue dialysis. Status: Acute Qualifiers: Chronic kidney disease stage: stage 5 Qualified Code(s): N18.5 - Chronic kidney disease, stage 5 Attestations Medical Necessity Statement*: From cardiovascular perspective over next 12 to 24 hours after stabilizing blood pressure and dialysis patient can be discharged home Coding Level of Care Code Established Pt Acute Insurance Billing Specialist for g Fwd Patient Type Established History Detailed Exam Detailed Medical Decision Making Moderate Complexity Diagnoses Non-ST elevation DC (NSTEMI) I21.4 Atrial fibrillation I48.91 Atrial fibrillation type: unspecified Diastolic CHF I50.32 Heart failure chronicity: chronic Hypertension I10 Hypertension type: essential hypertension CRF (chronic renal failure) N18.5 Chronic kidney disease stage: stage 5
--- NOTE | 2021-03-16 13:30 | PC.NURSE ---
Pt returned from label stamper at approximately 1320. Pt had TR Band on right wrist no swelling, hematoma, or bleeding noted. Pt had no c/o pain or discomfort at the present time. Call light in reach. Will continue to monitor.
[2021-03-16 14:17] LABS: Hepatitis B Surface Antigen Non-Reactive (Nonreactive); Hepatitis C Virus Antibody Non-Reactive (Nonreactive)
--- NOTE | 2021-03-16 15:15 | PC.NURSE ---
Pts TR Band removed at approximately 1500. No swelling, hematoma, or bleeding noted. Pt tolerated well. Drsg dry and in place. No c/o pain or discomfort at the present time. Call light in reach. Will cont to monitor.
[2021-03-17] VITALS (16 sets, daily range): BP systolic 115–192; BP diastolic 56–102; PULSE 58–73; RESP 10–22; TEMP 36.3; O2SAT 90–98
[2021-03-17 03:21] LABS: Basophils # 0.1 10^3/uL (0.0-0.1); Basophils % 1.6 %; Eosinophils # 0.5 10^3/uL (0.0-0.8); Eosinophils % 7.1 %; Hematocrit 27.1 % (42.0-52.0); Hemoglobin 8.8 g/dL (11.7-16.6); Lymphocytes # 0.9 10^3/uL (0.8-4.8); Lymphocytes % 14.3 %; Mean Corpuscular HGB Conc 32.5 g/dL (30.0-36.0); Mean Corpuscular Hemoglobin 30.8 pg (28.0-34.0); Mean Corpuscular Volume 94.8 fl (80-94); Monocytes # 0.9 10^3/uL (0.2-0.9); Monocytes % 14.3 %; Neutrophils # 4.01 10^3/uL (1.8-7.7); Neutrophils % 62.1 %; Nucleated Red Blood Cells % 0 %; Platelet Count 310 10^3/cmm (130-400); Red Blood Count 2.86 10^6/uL (4.1-5.3); Red Cell Distribution Width 14.5 % (12.1-15.1); White Blood Count 6.5 10^3/uL (4.0-10.0)
[2021-03-17 03:40] LABS: Anion Gap 18.8 (5-19); Blood Urea Nitrogen 33 mg/dL (6-20); Calcium 8.6 mg/dL (8.5-10.5); Carbon Dioxide 26 mmol/L (22-29); Chloride 98 mmol/L (98-107); Glomerular Filtration Rate 8.8 mL/min (90-130); Glucose 109 mg/dL (65-115); Osmolality Calculated 294 mOsm/kg (285-295); Potassium 4.8 mmol/L (3.5-5.1); Sodium 138 mmol/L (136-145)
--- NOTE | 2021-03-17 06:41 | PC.NURSE ---
Frequent safety and comfort rounds continue. Orders and/or nursing care completed as indicated. Patient monitored for response to intervention and treatment(s). Education provided includes leaving leads and on for proper monitoring. Patient and/or wine sales representative verbalizes understanding but states the leads fall off when he turns over. Will continue to monitor.
[2021-03-17] MEDS: losartan 50 mg Tablet 25 MG PO (07:57)
[2021-03-17] MEDS: atorvastatin 40 mg Tablet PO (07:58)
[2021-03-17] MEDS: FUROsemide 40 mg Tablet 80 MG PO (07:59)
[2021-03-17] MEDS: hyDROXYzine 25 mg Capsule PO (07:59)
[2021-03-17] MEDS: aspirin 81 mg EC Tablet PO (07:59)
[2021-03-17] MEDS: carvedilol 25 mg Tablet PO (07:59)
[2021-03-17] MEDS: pantoprazole DR 40 mg Tablet PO (08:00)
[2021-03-17] MEDS: isosorbide mononitrate ER 60 mg Tablet 120 MG PO (08:00)
[2021-03-17] MEDS: cloNIDine 0.1 mg Tablet 0.3 MG PO (08:02)
[2021-03-17] MEDS: amitriptyline 25 mg Tablet PO (08:06)
[2021-03-17] MEDS: citalopram 20 mg Tablet 10 MG PO (08:09)
--- NOTE | 2021-03-17 10:07 | P.DS_ITS ---
Discharge Providers Date of Admission: 03/15/21 10:08 Date of Discharge: March 17, 2021 Attending Provider at Admission: Henry Frazier MD Attending Provider at Discharge: Paulino Benavidez MD Primary Care Provider: HALEY Grace Diagnoses at Discharge Discharge Diagnosis (1) Non-ST elevation HI (NSTEMI): Status: Acute (2) Atrial fibrillation: Status: Acute Qualifiers: Atrial fibrillation type: unspecified Qualified Code(s): I48.91 - Unspecified atrial fibrillation (3) Diastolic CHF: Status: Acute Qualifiers: Heart failure chronicity: chronic Qualified Code(s): I50.32 - Chronic diastolic (congestive) heart failure (4) Hypertension: Status: Acute Qualifiers: Hypertension type: essential hypertension Qualified Code(s): I10 - Essential (primary) hypertension (5) CRF (chronic renal failure): Status: Acute Qualifiers: Chronic kidney disease stage: stage 5 Qualified Code(s): N18.5 - Chronic kidney disease, stage 5 Reason for Visit Reason for Visit: CHEST PAIN Hospital Course Hospital Course History of Present Illness by by Dr. Frazier Leopoldo Schaefer is a 45 year old male who was at dialysis today and had chest discomfort start. Patient has just received some morphine for chest discomfort prior to my arrival, and his history is limited. From the emergency department history as well as patient history I gather that during his dialysis run, approximately 2 hours and, he started having chest discomfort substernally and perhaps a little bit on the right. He reports it was very severe but did not qualify it further. Unknown if it radiated. He reported he had never had chest discomfort like this before. There was concern he might be having an ST elevation myocardial infarction, so cardiology has evaluated his EKG and determined no ST elevation myocardial infarction was present. He reports he has a history of Covid for 5 months ago. He is not vaccinated. In the emergency department he received some nitroglycerin ointment, morphine, and some saline. Hospital course Patient was admitted for management of NSTEMI, Dr. Katz was consulted, he went for angiogram which revealed nonobstructive coronary artery disease, on 03/17 patient was chest pain-free, asymptomatic, he does have resistant hypertension for which she is requiring multiple antihypertensive medications, this morning his blood pressure improved after getting p.o. meds, blood pressure 169/84 mmHg at the time of discharge, patient was discharged on his home medications, he was instructed to take anti-inflammatory medications and follow-up with his dialysis regimen Thursday. Dr. Amos cleared him to be discharged on 03/17. Counseling was done for smoking cessation. Recent echo showed EF 70% with biatrial enlargement. Physical Exam Narrative: EXAM NARRATIVE: Was laying comfortably in his bed No active chest pain No shortness of breath Saturating well on room air Does not look clinically fluid overloaded S1, S2 Mild crackles at the base of the lungs Lower extremity no edema EOMI, PERRLA nonfocal neuro exam Discharge Data Data Completed and Pending: Completed Studies During Hospitalization Category Date Time Status XR chest 1V sully ble [id number] Stat Exams 03/15/21 09:03 Completed Pending at discharge Category Date Time Status MANUFACTURING ENGINEER SUPERVISOR request for service Routin e Exams 03/16/21 12:28 Ordered Platelet Count Q2 D Lab 03/19/21 04:00 Ordered Labs from last 24 hours 03/17/21 03/17/21 03/16/21 03:06 03:06 13:22 WBC 6.5 RBC 2.86 L Hgb 8.8 L Hct 27.1 L MCV 94.8 H MCH 30.8 MCHC 32.5 RDW 14.5 Plt Count 310 MPV 9.0 Neut % (Auto) 62.1 Lymph % (Auto) 14.3 Hood % (Auto) 14.3 Eos % (Auto) 7.1 Baso % (Auto) 1.6 Neut # (Auto) 4.01 Lymph # (Auto) 0.9 Hood # (Auto) 0.9 Eos # (Auto) 0.5 Baso # (Auto) 0.1 Nucleated RBC % (a uto) 0 Nucleated RBCs # 0.0 Sodium 138 Potassium 4.8 Chloride 98 Carbon Dioxide 26 Anion Gap 18.8 BUN 33 H Creatinine 6.8 H* GFR Calculation 8.8 L Glucose 109 Calculated Osmolal ity 294 Calcium 8.6 Hep Bs Antigen Non-reactive Hepatitis C Antibo dy Non-reactive Vitals: Last Vital Signs Temp 97.4 F L 03/17/21 10:00 Pulse 68 03/17/21 10:00 Resp 15 03/17/21 10:00 BP 169/84 03/17/21 10:00 Pulse Ox 93 03/17/21 10:00 Discharge Plan Discharge Patient Disposition: Home Condition: Stable Prescriptions: New ibuprofen 200 mg capsule 200 mg PO Q8H Qty: 10 RF: 0 Continued Velphoro 500 mg tablet,chewable See Rx Instructions .ROUTE .COMPLEX RF: 0 Eliquis 5 mg tablet 5 mg PO BID 30 Days Qty: 60 RF: 0 atorvastatin 40 mg tablet 40 mg PO DAILY 30 Days Qty: 30 RF: 0 aspirin 81 mg tablet,delayed release (DR/EC) 81 mg PO DAILY 30 Days Qty: 30 RF: 0 citalopram [Celexa] 10 mg tablet 10 mg PO DAILY 30 Days Qty: 30 RF: 0 hydroxyzine HCl 25 mg tablet 25 mg PO BID PRN (Reason: itching) 30 Days Qty: 60 RF: 0 Yupelri 175 mcg/3 mL solution for nebulization 175 mcg inhalation DAILY RF: 0 RenaPlex-D 800 mcg-12.5 mg -2,000 unit tablet 1 tab PO DAILY RF: 0 (DME) Home oxygen See Rx Instructions .Route .MEDSUPPLY Qty: 1 RF: 0 (DME) nebulizers Misc See Rx Instructions .ROUTE .MEDSUPPLY Qty: 1 RF: 0 losartan 100 mg tablet 100 mg PO DAILY RF: 0 budesonide-formoterol [Symbicort] 160-4.5 mcg/actuation HFA aerosol inhaler 2 puff inhalation BID 30 Days Qty: 10.2 RF: 2 albuterol sulfate [Ventolin HFA] 90 mcg/actuation HFA aerosol inhaler 2 inh inhalation Q4H PRN (Reason: shortness of breath or wheezing) Qty: 8.5 RF: 2 furosemide 80 mg tablet 80 mg PO BID Qty: 180 RF: 0 metolazone 5 mg tablet 5 mg PO .ON MON,WED,FRI RF: 0 pantoprazole 40 mg tablet,delayed release (DR/EC) 40 mg PO BID RF: 0 hydralazine 100 mg tablet 100 mg PO TID Qty: 90 RF: 0 ondansetron HCl [Zofran] 4 mg tablet 4 mg PO Q6H PRN (Reason: nausea and vomiting) Qty: 20 RF: 0 ondansetron HCl 8 mg tablet 8 mg PO Q8H PRN (Reason: Nausea And Vomiting) RF: 0 acetaminophen 500 mg Tablet 1,000 mg PO Q4H PRN (Reason: Pain) RF: 0 isosorbide mononitrate 120 mg tablet extended release 24 hr 120 mg PO DAILY RF: 0 nifedipine 90 mg tablet extended release 90 mg PO QAM RF: 0 budesonide 0.5 mg/2 mL suspension for nebulization 0.5 mg inhalation BID RF: 0 ramelteon 8 mg tablet 8 mg PO BEDTIME RF: 0 clonidine HCl 0.3 mg tablet 0.3 mg PO TID Qty: 90 RF: 0 amitriptyline 25 mg Tablet 25 mg PO DAILY RF: 0 Changed Coreg 25 mg Tablet 50 mg PO BID Qty: 60 RF: 0 Discharge Orders: Discharge Order (Routine); Ordered 03/17/21 Ordered By: Paulino Benavidez Discharge Diet: Low Salt Discharge Activity: Increase activity as tolerated Patient Instructions: Heart Attack (DC), Heart Failure (DC), Chronic Hypertension (ED), Opioid Safety Discharge Attestations Time Spent in Discharge Care*: less than 30 min Status at Discharge: Cognitive status at discharge: cognitively intact , Behavioral status at discharge: cooperative , Quality Metrics Clinical Quality Measures During this hospital stay, did patient experience: None Coding Level of Care Code Acute Chg FW DC note Diagnoses Non-ST elevation HI (NSTEMI) I21.4 Atrial fibrillation I48.91 Atrial fibrillation type: unspecified Diastolic CHF I50.32 Heart failure chronicity: chronic Hypertension I10 Hypertension type: essential hypertension CRF (chronic renal failure) N18.5 Chronic kidney disease stage: stage 5
--- NOTE | 2021-03-17 14:00 | P.PN_ITS ---
Subjective Subjective: Interval history: Status post coronary angiogram yesterday without significant disease. Remains stable with blood pressure has improved after medications. He is awaiting for right to go home Medications: Reviewed: Yes Vitals/I&O/Wt Last Vital Signs Temp 97.4 F L 03/17/21 10:24 Pulse 68 03/17/21 10:24 Resp 15 03/17/21 10:24 BP 169/84 03/17/21 10:24 Pulse Ox 93 03/17/21 10:24 03/16/21 03/17/21 03/17/21 22:59 06:59 14:59 Intake Total 600 / 600 600 / 600 Output Total 2300 / 2300 225 / 2525 190 / 190 Balance -1700 / -1700 -225 / -1925 410 / 410 Weight last 48 hrs Weight 208 lb 15.971 oz Weight 209 lb 12 oz Physical Exam Narrative: EXAM NARRATIVE: GENERAL: Patient is alert, awake and oriented x3. NECK: No jugular vein distension. HEENT: No cyanosis. No icterus. No pallor. HEART: Regular S1 and S2. No murmur, rub or gallop. LUNGS: Clear to auscultate bilaterally. ABDOMEN: Soft, nontender and nondistended. Positive bowel sounds. No guarding, rebound or tenderness. CENTRAL NERVOUS SYSTEM: Grossly nonfocal. EXTREMITIES: Lower extremities without edema bilaterally. Const: COMMON NORMALS: alert Resp: COMMON NORMALS: clear to auscultation bilaterally AUSCULTATION: clear to auscultation bilaterally Neuro: SENSORIUM/ORIENTATION: Yes alert Data : 03/17/21 03:06 03/17/21 03:06 A&P Assessment and plan (1) Non-ST elevation OR (NSTEMI): Patient underwent left heart cath noted to have nonobstructive coronary artery disease with mild luminal irregularities without significant stenosis. Most likely troponin leak could be hypertensive urgency/myopericarditis. Continue optimal medical management continue to control the blood pressure. 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 Continue current regimen, left heart cath did not show significant coronary artery disease. Status: Acute (2) Atrial fibrillation: Rate controlled continue current regimen Status: Acute Qualifiers: Atrial fibrillation type: unspecified Qualified Code(s): I48.91 - Unspecified atrial fibrillation (3) Diastolic CHF: Continue diuretics, appeared well compensated, continue dialysis, continue diuretics Status: Acute Qualifiers: Heart failure chronicity: chronic Qualified Code(s): I50.32 - Chronic diastolic (congestive) heart failure (4) Hypertension: Improved blood pressure continue to optimize medications as an outpatient Status: Acute Qualifiers: Hypertension type: essential hypertension Qualified Code(s): I10 - Essential (primary) hypertension (5) CRF (chronic renal failure): Patient is on dialysis continue dialysis. Status: Acute Qualifiers: Chronic kidney disease stage: stage 5 Qualified Code(s): N18.5 - Chronic kidney disease, stage 5 Attestations Medical Necessity Statement*: Patient can be discharged home from a cardiovascular perspective Coding Level of Care Code Acute Video Production Intern for [facility] Fwd Diagnoses Non-ST elevation OR (NSTEMI) I21.4 Atrial fibrillation I48.91 Atrial fibrillation type: unspecified Diastolic CHF I50.32 Heart failure chronicity: chronic Hypertension I10 Hypertension type: essential hypertension CRF (chronic renal failure) N18.5 Chronic kidney disease stage: stage 5
--- NOTE | 2021-03-17 14:54 | PC.NURSE ---
Patient asleep on bed. Fully dressed. Waiting for ride.
== END 2021-03-17 16:30 | disposition home or self-care (01) ==
LOC: ER 09:44 → ER IP 16:49 → CSU 03-16 00:35
PROVIDERS: Internal Medicine; Internal Medicine Cardiovascular Disease; Internal Medicine Nephrology; Admitting Provider Internal Medicine; Emergency Provider Family Medicine; PCP Nurse Practitioner Family; Visit Provider Internal Medicine
DX: I21.4 Non-ST elevation (NSTEMI) myocardial infarction (principal); I48.91 Unspecified atrial fibrillation; I50.32 Chronic diastolic (congestive) heart failure; N18.5 Chronic kidney disease, stage 5; I13.0 Hypertensive heart and chronic kidney disease with heart failure and stage 1 through stage 4 chronic kidney disease, or unspecified chronic kidney disease; J44.9 Chronic obstructive pulmonary disease, unspecified; D64.9 Anemia, unspecified; Z79.01 Long term (current) use of anticoagulants; I25.10 Atherosclerotic heart disease of native coronary artery without angina pectoris; Z99.2 Dependence on renal dialysis; Z99.81 Dependence on supplemental oxygen
CPT/HCPCS: 36415; 36600; 71045; 80048; 80051; 80053; 82330; 82805; 83735; 84443; 84484; 85025; 85610; 85730; 86803; 87340; 93005; 93454; 94640; 94667; 96365; 96366; 96375; 96376; 99291; C1769; C1887; C1894; G0378; J0360; J1644; J2250; J2270; J2405; J3010; J3490; J3535; J7040; J7626; Q3014; Q9967

== ENCOUNTER 2021-04-03 07:00 | Observation (INO) | payer MEDICARE, MEDICAID, SELFPAY ==
[2021-04-03] VITALS (18 sets, daily range): BP systolic 165–213; BP diastolic 87–126; PULSE 76–93; RESP 16–18; TEMP 36.7–37.1; O2SAT 90–96; BMI 28.5
--- NOTE | 2021-04-03 07:06 | PC.NURSE ---
324 mg ASA given, had DC last month, BS 91, oxygen at home on room air with EMS, at dialysis no treatment, wanted to be seen prior to treatment d/t SOB
--- NOTE | 2021-04-03 07:11 | XR_ITS ---
WS: [id number] PORTABLE CHEST HISTORY: Chest pain. COMPARISON: 02/13/2021 LEFT subclavian dialysis catheter with tips overlying the RIGHT atrium. Lungs are hyperexpanded. Mild diffuse haziness and interstitial thickening. No focal area of consolid ation. No pleural effusion or pneumothorax. Cardiac size: Mildly enlarged cardiac silhouette. Mediastinum/Aorta: Mild atherosclerosis aorta. Osteopenia. Erosion or destructive process involving the medial LEFT humeral head. Similar to the estefanía or study. Chronic erosive changes at the LEFT glenohumeral joint. Very similar to prior examinations. Initially seen on a prior study of 08/07/2020 with progression since then. XR/XR chest 1V portable [id number] IMPRESSION: 1. Chronic emphysema with mild pulmonary edema. 2. No pneumonia. 3. Destructive lytic/erosive changes at the LEFT glenohumeral joint. These adrian nges have been present on several prior examinations with mild progression sinc e 08/07/2020. Inflammatory arthropathy or chronic osteomyelitis should be consid ered. These findings have been previously imaged.
--- NOTE | 2021-04-03 07:11 | ECG_ITS ---
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 Measurements Intervals [place] Rate: 80 P: -19 IN: 189 QRS: -7 QRSD: 105 T: 86 QT: 401 QTc: 465 Interpretive Statements SINUS RHYTHM NONSPECIFIC T-WAVE ABNORMALITY Compared to ECG 03/15/2021 18:08:41 Atrial fibrillation no longer present T-wave abnormality still present Electronically Signed On 04-04-2021 20:37:05 BURGLARY INVESTIGATOR by Qi Brown M.D. [email or web address] [facility] center[facility] Mobile/store/OM/[id number]
--- NOTE | 2021-04-03 07:13 | W.ED.CHESTPA ---
HPI - Chest Pain General: Chief Complaint: Shortness of Breath/Dyspnea Stated Complaint: CHEST HEAVINESS/ SOB Time Seen by Provider: 04/03/21 07:05 History of Present Illness: HPI narrative: 45-year-old male history of CAD CKD on dialysis presents with chest pain. States this started this morning right before he was scheduled for his Thursday dialysis. Last dialysis was Thursday and was uneventful. States this feels similar to previous episode of chest pain that he had that is pressure-like central and does not radiate. Recently had cardiac cath in February without stents being placed. In addition had unremarkable CTA for similar chest pain without signs of PE back in December. Denies lower extremity pain or swelling. Denies pain around catheter insertion site. Denies fevers chills nausea or vomiting. Review of Systems Narrative: - CONSTITUTIONAL: Denies weight loss, fever and chills. - HEENT: Denies changes in vision and hearing. - RESPIRATORY: Endorses shortness of breath. - CV: As above - GI: Denies abdominal pain, nausea, vomiting and diarrhea. - : Denies dysuria and urinary frequency. - MSK: Denies myalgia and joint pain. - SKIN: Denies rash and pruritus. - NEUROLOGICAL: Denies headache, weakness, numbness and syncope. - PSYCHIATRIC: Denies suicidal ideation PFSH ED PFSH: Medical History Anemia Anxiety and depression Atrial fibrillation Chest pain COPD (chronic obstructive pulmonary disease) Reports he is on 4 L of oxygen at home CRF (chronic renal failure) Diastolic CHF Elevated troponin Encounter to establish care End stage chronic kidney disease GERD (gastroesophageal reflux disease) Hypertension Hypertension screen Hypoxia Insomnia Lower respiratory tract infection Resistant hypertension Sebaceous cyst Vitamin D deficiency Surgical History H/O circumcision H/O hand surgery right hand with hardware Presence of peritoneal dialysis catheter S/P dialysis catheter insertion (12/12/19) Removed on 04/04/2020 S/P hemodialysis catheter insertion Family History Other Adopted Denies family history of Anesthesia complication Bleeding disorder Social History Smoking and tobacco status: never smoked Alcohol intake: never Household members: significant other Marital status: Single Current occupational status: disabled History of recent travel: Yes Details: [place] Out of state: Yes Physical Exam Narrative: EXAM NARRATIVE: - GENERAL: Alert and oriented x 3. No acute distress. Well-nourished. - EYES: EOMI. Anicteric. - HENT: Atraumatic, no C-spine tenderness. Moist mucous membranes. No scleral icterus. No cervical lymphadenopathy. - LUNGS: Clear to auscultation bilaterally. No accessory muscle use. Equal lung sounds bilaterally. No respiratory distress. - CARDIOVASCULAR: Regular rate and rhythm. No murmur. No JVD. Left upper chest dialysis catheter without erythema or tenderness. - ABDOMEN: Soft, non-tender and non-distended. Negative CVA tenderness bilaterally, no rebound or guarding, negative Madden sign. No palpable masses. - EXTREMITIES: No edema. Non-tender. - SKIN: No rashes or lesions. Warm. - NEUROLOGIC: No meningismus or focal neurological deficits. CN II-XII grossly intact. - PSYCHIATRIC: Cooperative. Appropriate mood and affect. Course Vital Signs: Vital signs: Vital Signs Temperature 98.8 F 04/03/21 07:10 Pulse Rate 93 04/03/21 08:17 Respiratory Rate 16 04/03/21 08:17 Blood Pressure 174/99 04/03/21 08:17 Pulse Oximetry 93 04/03/21 08:17 MDM - Chest Pain MDM Narrative: Medical decision making narrative: 45-year-old presents chest pain shortness of breath. He is a chronic dialysis patient. Physical exam unremarkable. However EKG does reveal peaked T waves and potassium is elevated 5.7. This is concerning for hyperkalemic change. Calcium and insulin drip initiated. Otherwise however EKG does not reveal any sign of acute ischemia or other acute abnormality. High-sensitivity troponin elevated 60s but repeat is downtrending. Remainder of lab work unremarkable except for elevated creatinine. Of note he had recent unremarkable cardiac catheter as well as recent CT scan without evidence of PE. Nephrology consulted. Remainder of lab work and imaging reviewed. Discussed with hospitalist and they agreed patient would benefit from admission. Patient admitted in stable condition. Further evaluation management per hospitalist team. Lab Data: Labs: Lab Results 04/03/21 04/03/21 04/03/21 07:28 07:28 07:28 WBC 8.9 10^3/uL 10^3/ uL (4.0-10.0) RBC 3.65 10^6/uL L 10 ^6/uL (4.1-5.3) Hgb 11.2 g/dL L g/dL (11.7-16.6) Hct 36.4 % L % (42.0-52.0) MCV 99.7 fl H fl (80-94) MCH 30.7 pg pg (28.0-34.0) MCHC 30.8 g/dL g/dL (30.0-36.0) RDW 15.2 % H % (12.1-15.1) Plt Count 260 10^3/cmm 10^3 /cmm (130-400) MPV 9.4 fL fL (7.4-10.4) Neut % (Auto) 65.6 % % Lymph % (Auto) 10.3 % % [place] % (Auto) 12.7 % % Eos % (Auto) 9.8 % % Baso % (Auto) 1.3 % % Neut # (Auto) 5.85 10^3/uL 10^3 /uL (1.8-7.7) Lymph # (Auto) 0.9 10^3/uL 10^3/ uL (0.8-4.8) [place] # (Auto) 1.1 10^3/uL H 10^ 3/uL (0.2-0.9) Eos # (Auto) 0.9 10^3/uL H 10^ 3/uL (0.0-0.8) Baso # (Auto) 0.1 10^3/uL 10^3/ uL (0.0-0.1) Nucleated RBC % (a uto) 0 % % Nucleated RBCs # 0.0 /100WBC /100W BC PT INR APTT Sodium 138 mmol/L mmol/L (136-145) Potassium 5.7 mmol/L H mmol /L (3.5-5.1) Chloride 95 mmol/L L mmol/ L (98-107) Carbon Dioxide 28 mmol/L mmol/L (22-29) Anion Gap 20.7 H (5-19) BUN 47 mg/dL H mg/dL (6-20) Creatinine 10.0 mg/dL H* mg/ dL (0.7-1.2) GFR Calculation 5.6 mL/min L mL/m in (90-130) Glucose 71 mg/dL mg/dL (65-115) POC Glucose Calculated Osmolal ity 297 mOsm/kg H mOs m/kg (285-295) Calcium 9.4 mg/dL mg/dL (8.5-10.5) Total Bilirubin 0.4 mg/dL mg/dL (0.15-1.2) AST 20 U/L U/L (0-40) ALT 12 U/L U/L (0-41) Alkaline Phosphata se 79 IU/L IU/L (40-130) Troponin T Baselin e 69 ng/L H ng/L (0-15) Troponin T 120 Min [place] Troponin T Total Protein 7.0 g/dL g/dL (6.6-8.7) Albumin 3.7 g/dL g/dL (3.5-5.2) Globulin 3.3 g/dL g/dL (1.3-4.6) Lipase 100 U/L H U/L (13-60) 04/03/21 04/03/21 04/03/21 09:24 09:24 09:24 WBC RBC Hgb Hct MCV MCH MCHC RDW Plt Count MPV Neut % (Auto) Lymph % (Auto) [place] % (Auto) Eos % (Auto) Baso % (Auto) Neut # (Auto) Lymph # (Auto) [place] # (Auto) Eos # (Auto) Baso # (Auto) Nucleated RBC % (a uto) Nucleated RBCs # PT 13.80 SECONDS SEC ONDS (12.1-14.9) INR 1.03 (0.8-1.2) APTT 37.2 SECONDS H SE CONDS (23.9-36.7) Sodium Potassium Chloride Carbon Dioxide Anion Gap BUN Creatinine GFR Calculation Glucose POC Glucose 68 mg/dL L mg/dL (70-110) Calculated Osmolal ity Calcium Total Bilirubin AST ALT Alkaline Phosphata se Troponin T Baselin e Troponin T 120 Min [place] 64.80 ng/L H ng/L (0-15) Delta Troponin T -4.20 ABS# L ABS# (0-10) Total Protein Albumin Globulin Lipase 04/03/21 10:23 WBC RBC Hgb Hct MCV MCH MCHC RDW Plt Count MPV Neut % (Auto) Lymph % (Auto) [place] % (Auto) Eos % (Auto) Baso % (Auto) Neut # (Auto) Lymph # (Auto) [place] # (Auto) Eos # (Auto) Baso # (Auto) Nucleated RBC % (a uto) Nucleated RBCs # PT INR APTT Sodium Potassium Chloride Carbon Dioxide Anion Gap BUN Creatinine GFR Calculation Glucose POC Glucose 86 mg/dL mg/dL (70-110) Calculated Osmolal ity Calcium Total Bilirubin AST ALT Alkaline Phosphata se Troponin T Baselin e Troponin T 120 Min [place] Troponin T Total Protein Albumin Globulin Lipase EKG Data^: EKG 1: Other EKG comments: Sinus rhythm at a rate of 80, T wave inversion in aVL, no sign of acute ischemia or other acute abnormality. Critical Care Time Critical Care Time: Critical Care Time: Yes Total Critical Care Time: 45 Attestation: This case had a high probability of a clinically significant, sudden, or life threatening deterioration of this patient's condition which required my full and direct attention, intervention and personal management. Discharge Plan Discharge Prescriptions: No Action Velphoro 500 mg tablet,chewable See Rx Instructions .ROUTE .COMPLEX RF: 0 hydroxyzine HCl 25 mg tablet 25 mg PO BID PRN (Reason: itching) 30 Days Qty: 60 RF: 0 Yupelri 175 mcg/3 mL solution for nebulization 175 mcg inhalation DAILY RF: 0 RenaPlex-D 800 mcg-12.5 mg -2,000 unit tablet 1 tab PO DAILY RF: 0 (DME) Home oxygen See Rx Instructions .Route .MEDSUPPLY Qty: 1 RF: 0 (DME) nebulizers Misc See Rx Instructions .ROUTE .MEDSUPPLY Qty: 1 RF: 0 budesonide-formoterol [Symbicort] 160-4.5 mcg/actuation HFA aerosol inhaler 2 puff inhalation BID 30 Days Qty: 10.2 RF: 2 albuterol sulfate [Ventolin HFA] 90 mcg/actuation HFA aerosol inhaler 2 inh inhalation Q4H PRN (Reason: shortness of breath or wheezing) Qty: 8.5 RF: 2 furosemide 80 mg tablet 80 mg PO BID Qty: 180 RF: 0 metolazone 5 mg tablet 5 mg PO .ON MON,WED,FRI RF: 0 pantoprazole 40 mg tablet,delayed release (DR/EC) 40 mg PO BID RF: 0 ondansetron HCl 8 mg tablet 8 mg PO Q8H PRN (Reason: Nausea And Vomiting) RF: 0 acetaminophen 500 mg Tablet 1,000 mg PO Q4H PRN (Reason: Pain) RF: 0 isosorbide mononitrate 120 mg tablet extended release 24 hr 120 mg PO DAILY RF: 0 budesonide 0.5 mg/2 mL suspension for nebulization 0.5 mg inhalation BID PRN (Reason: states only uses prn) RF: 0 nifedipine 60 mg tablet extended release 24hr 60 mg PO QAM RF: 0 atorvastatin 40 mg tablet 40 mg PO QAM RF: 0 Coreg 25 mg tablet See Rx Instructions .ROUTE .COMPLEX RF: 0 Celexa 10 mg tablet 10 mg PO QAM RF: 0 clonidine HCl 0.3 mg tablet See Rx Instructions .ROUTE .COMPLEX RF: 0 aspirin 81 mg tablet,delayed release (DR/EC) 81 mg PO QAM RF: 0 hydralazine 100 mg tablet 50 - 100 mg PO TID RF: 0 Eliquis 5 mg tablet 5 mg PO .NOT TAKEN 3 WEEKS RF: 0 Coding Level of Care Code ED Senior Database Programmer for [facility]
[2021-04-03 07:44] LABS: Basophils # 0.1 10^3/uL (0.0-0.1); Basophils % 1.3 %; Eosinophils # 0.9 10^3/uL (0.0-0.8); Eosinophils % 9.8 %; Hematocrit 36.4 % (42.0-52.0); Hemoglobin 11.2 g/dL (11.7-16.6); Lymphocytes # 0.9 10^3/uL (0.8-4.8); Lymphocytes % 10.3 %; Mean Corpuscular HGB Conc 30.8 g/dL (30.0-36.0); Mean Corpuscular Hemoglobin 30.7 pg (28.0-34.0); Mean Corpuscular Volume 99.7 fl (80-94); Mean Platelet Volume 9.4 fL (7.4-10.4); Monocytes # 1.1 10^3/uL (0.2-0.9); Monocytes % 12.7 %; Neutrophils # 5.85 10^3/uL (1.8-7.7); Neutrophils % 65.6 %; Nucleated Red Blood Cells % 0 %; Platelet Count 260 10^3/cmm (130-400); Red Blood Count 3.65 10^6/uL (4.1-5.3); Red Cell Distribution Width 15.2 % (12.1-15.1); White Blood Count 8.9 10^3/uL (4.0-10.0)
[2021-04-03] MEDS: labetalol 5 mg/mL SDV 20mL 10 MG IVP (07:53)
[2021-04-03 08:06] LABS: Alanine Aminotransferase 12 U/L (0-41); Albumin Level 3.7 g/dL (3.5-5.2); Alkaline Phosphatase 79 IU/L (40-130); Aspartate Amino Transferase 20 U/L (0-40); Blood Urea Nitrogen 47 mg/dL (6-20); Calcium 9.4 mg/dL (8.5-10.5); Carbon Dioxide 28 mmol/L (22-29); Chloride 95 mmol/L (98-107); Globulin 3.3 g/dL (1.3-4.6); Glomerular Filtration Rate 5.6 mL/min (90-130); Glucose 71 mg/dL (65-115); Lipase 100 U/L (13-60); Osmolality Calculated 297 mOsm/kg (285-295); Sodium 138 mmol/L (136-145); Total Bilirubin 0.4 mg/dL (0.15-1.2)
[2021-04-03 08:08] LABS: Troponin(5th) Baseline 69 ng/L (0-15)
[2021-04-03 08:18] LABS: Anion Gap 20.7 (5-19); Potassium 5.7 mmol/L (3.5-5.1)
--- NOTE | 2021-04-03 09:11 | ECG_ITS ---
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 Measurements Intervals [place] Rate: 84 P: -26 [place]: 244 QRS: -21 QRSD: 112 T: 87 QT: 394 QTc: 468 Interpretive Statements SINUS RHYTHM WITH FIRST DEGREE AV BLOCK BORDERLINE LEFT AXIS DEVIATION [QRS AXIS < -20] MODERATE INTRAVENTRICULAR CONDUCTION DELAY [110+ ms QRS DURATION] ST ELEVATION, PROBABLY EARLY REPOLARIZATION TALL T-WAVES, SUGGESTS HYPERKALEMIA Compared to ECG 03/15/2021 18:08:41 First degree AV block now present Intraventricular conduction delay now present ST (T wave) deviation now present Early repolarization now present Atrial fibrillation no longer present T-wave abnormality no longer present Electronically Signed On 04-04-2021 22:05:13 SUPERVISOR LITHARGE by Qi Brown M.D. [id number]
[2021-04-03 09:27] LABS: Glucose Point of Care 68 mg/dL (70-110)
--- NOTE | 2021-04-03 09:40 | PC.NURSE ---
Spoke with Dr Farooq regarding insulin gtt, advised dr Farooq that current blood sugar is 68, advised to continue, calculated dose at 0.24 units and hour, advised the pumps are not able to do this, Dr Farooq states to talk with pharmacy, called pharmacy explained the situation and transfer to Dr Farooq to make decisions regarding the therapy for hyperkalemia. spoke with Dr Farooq after call with pharmacy, advised that pharmacy is placing new orders. spoke with pharmacy- they are entering new order per protocol, this RN will give calcium when the additional medications are available.
[2021-04-03 09:46] LABS: INR 1.03 (0.8-1.2)
[2021-04-03 09:47] LABS: Partial Thromboplastin Time 37.2 SECONDS (23.9-36.7)
[2021-04-03] MEDS: insulin regular-human 100 units/1 mL 10 UNIT IVP (09:49)
[2021-04-03] MEDS: calcium gluconate 0.1 gm/mL 10% SDV 10mL 1 GM IVP (09:52)
[2021-04-03] MEDS: dextrose 50% syringe 50 mL IVP ×2 (09:52→11:15)
[2021-04-03 10:26] LABS: Glucose Point of Care 86 mg/dL (70-110)
--- NOTE | 2021-04-03 10:27 | PC.PHAR ---
Addendum entered by Corry Amaro 04/03/21 10:28: pts states the pt hasnt taken eliquis in 3 weeks [address] she thought Dr.Khan fritz ext med history shows last filled 02/20/21 30d/s Original Note: pt states his takes care if his medications- pts seb [phone] verified pts medications-notes are made in the pharmacy comments
[2021-04-03 11:14] LABS: Glucose Point of Care 38 mg/dL (70-110)
--- NOTE | 2021-04-03 11:14 | PM.HP ---
Providers/Chief Complaint Chief Complaint: CHEST HEAVINESS/ SOB History of Present Illness Leopoldo Schaefer is a 45 year old male who presents to the emergency department with complaints of shortness of breath after presenting dialysis. He reports he has not felt well all day. He has had some chest pressure off and on for a year. He states he felt a little febrile today, although did not take his temperature. He has been coughing a little bit. He has trouble keeping awake given during the interview and reports that he is very tired. No nausea vomiting, diarrhea. States he had COVID maybe about a year ago. Not vaccinated. In the emergency department he was found to be hyperkalemic, and he received insulin and glucose, calcium gluconate. He also received labetalol presumably for his blood pressure. Previous hospital stay he was evaluated with angiogram for chronic chest discomfort and found to have nonobstructive coronary disease. Review of Systems General: Reports: 10 or more systems reviewed and unremarkable except in HPI and below Const: Reports: fever(s) and fatigue; Denies: chills Eyes: Denies: change in vision ENMT: Denies: throat pain Card: Denies: chest pain Resp: Reports: dyspnea and non-productive cough GI: Denies: abdominal pain : Denies: flank pain Musc: Denies: neck pain Skin/Breast: Denies: rash Neuro: Denies: headache(s) Psych: Reports: sleeping more; Denies: anxiety Endo: Denies: polyuria Gene/Lymph: Denies: easy bruising All/Imm: Denies: urticaria Medications/Allergies Home Medications Medication Instructions Recorded Confirmed Last Taken Type vit B,C-folic ac 800 mcg-zinc 12.5 1 tab PO DAILY 06/09/19 04/03/21 04/02/21 History mg-selen-D3 2,000 unit-vit E tablet Home oxygen #1 ea 08/07/20 04/03/21 Unknown Rx nebulizers #1 ea 08/07/20 04/03/21 Unknown Rx sucroferric oxyhydroxide 500 mg See Rx Instructions .ROUTE .COMPLEX 11/12/20 04/03/21 Unknown History chewable tablet budesonide-formoterol HFA 160 2 puff INHALATION BID 30 Days 12/28/20 04/03/21 Unknown Rx mcg-4.5 mcg/actuation aerosol #10.2 g inhaler metolazone 5 mg PO .ON MON,THU,Thu12/30/20 04/03/21 04/03/21 05:30 History pantoprazole 40 mg PO BID 12/30/20 04/03/21 04/03/21 05:30 History revefenacin 175 mcg/3 mL solution 175 mcg INHALATION DAILY 01/16/21 04/03/21 Unknown History for nebulization albuterol sulfate 90 mcg/actuation 2 inh INHALATION Q4H PRN #8.5 g 01/28/21 04/03/21 Unknown Rx aerosol inhaler furosemide 80 mg tablet 80 mg PO BID #180 tab 01/28/21 04/03/21 04/03/21 05:30 Rx acetaminophen 1,000 mg PO Q4H PRN 02/15/21 04/03/21 Unknown History budesonide 0.5 mg INHALATION BID PRN 02/15/21 04/03/21 Unknown History isosorbide mononitrate 120 mg PO DAILY 02/15/21 04/03/21 04/03/21 05:30 History ondansetron HCl 8 mg PO Q8H PRN 02/15/21 04/03/21 Unknown History hydroxyzine HCl 25 mg tablet 25 mg PO BID PRN 30 Days #60 tab 02/19/21 04/03/21 Unknown Rx Celexa 10 mg PO QAM 04/03/21 04/03/21 04/03/21 05:30 History Coreg See Rx Instructions .ROUTE .COMPLEX 04/03/21 04/03/21 04/02/21 History Eliquis 5 mg PO .NOT TAKEN 3 WEEKS 04/03/21 04/03/21 Unknown History aspirin 81 mg PO QAM 04/03/21 04/03/21 04/03/21 05:30 History atorvastatin 40 mg PO QAM 04/03/21 04/03/21 04/03/21 05:30 History clonidine HCl See Rx Instructions .ROUTE .COMPLEX 04/03/21 04/03/21 04/02/21 History hydralazine 50 - 100 mg PO TID 04/03/21 04/03/21 04/03/21 05:30 History 100 mg nifedipine 60 mg PO QAM 04/03/21 04/03/21 04/03/21 05:30 History Allergies Allergy/AdvReac Type Severity Reaction Status Date / Time Penicillins Allergy ALGY-Hives Verified 04/03/21 09:54 tramadol Allergy ALGY-Hives Verified 04/03/21 09:54 PFSH Acute PFSH: Medical History (Updated 04/03/21 @ 11:22 by Henry Frazier MD) Anemia Anxiety and depression Atrial fibrillation Chest pain COPD (chronic obstructive pulmonary disease) Reports he is on 4 L of oxygen at home CRF (chronic renal failure) Diastolic CHF Elevated troponin Encounter to establish care End stage chronic kidney disease GERD (gastroesophageal reflux disease) Hypertension Hypertension screen Hypoxia Insomnia Lower respiratory tract infection Resistant hypertension Sebaceous cyst Vitamin D deficiency Surgical History H/O circumcision H/O hand surgery right hand with hardware Presence of peritoneal dialysis catheter S/P dialysis catheter insertion (12/12/19) Removed on 04/04/2020 S/P hemodialysis catheter insertion Family History Other Adopted Denies family history of Anesthesia complication Bleeding disorder Social History Smoking and tobacco status: never smoked Alcohol intake: never Household members: significant other Marital status: Single Current occupational status: disabled History of recent travel: Yes Details: [place] Out of state: Yes Vitals/I&O/Wt Last Vital Signs Temp 98.8 F 04/03/21 07:10 Pulse 93 04/03/21 08:17 Resp 16 04/03/21 08:17 BP 174/99 04/03/21 08:17 Pulse Ox 93 04/03/21 08:17 Weight last 48 hrs Weight 92.986 kg Physical Exam Narrative: EXAM NARRATIVE: General exam wakes up, answer some questions and falls back asleep HEENT: Pupils equally round. Oropharynx clear. Neck is supple no lymphadenopathy or thyromegaly Cardiovascular regular rate and rhythm without murmur Lungs clear, diminished breath sounds bilaterally Abdomen soft, positive bowel sounds. No obvious organomegaly exam is deferred Extremities no cyanosis clubbing or edema Skin no rash Neuro no focal deficits. Data : 04/03/21 07:28 04/03/21 07:28 Other data: LFTs normal Troponin 69 with repeat of 64 Lipase of 100 Chest x-ray dialysis catheter noted on the left. Some interstitial changes, possible pulmonary edema. EKG demonstrates sinus rhythm, left axis deviation, peaked T waves anterior precordial leads, intraventricular conduction delay. Troponin 69, repeat 65 A&P Assessment and plan (1) Dyspnea: This may be secondary to pulmonary edema, from fluid overload in this dialysis patient. Cannot rule out a component of his chronic COPD although he does not appear to be having an exacerbation currently. Certainly he is falling asleep during our conversation which may be concerning for elevated CO2. He states he has refused to wear any kind of CPAP or BiPAP in the past. I will check an ABG. Secondary to his complaints of fever, fatigue, cough influenza and Covid testing will be performed. He has had a recent angiogram, and he did not have obstructive coronary disease. Status: Acute (2) Hyperkalemia: Multiple measures given in the emergency department Nephrology has been consulted for possible dialysis. Status: Acute (3) Hypertension: Continue home medications, adjust as needed for blood pressure control. Will defer in part this for nephrology as he is likely going to undergo dialysis today It is not ideal to continue ARB, although it appears he is already off of this, secondary to his hyperkalemia and the fact he still makes urine. Clonidine could be contributing to his tiredness and fatigue. This would not be ideal but obviously was added secondary to patient's marked hypertension. Status: Acute Qualifiers: Hypertension type: essential hypertension Qualified Code(s): I10 - Essential (primary) hypertension (4) COPD (chronic obstructive pulmonary disease): No evidence of exacerbation DuoNeb as needed Budesonide Check ABG Status: Acute (5) Paroxysmal atrial fibrillation with RVR: Continue chronic medications, Coreg, According to patient's family he has been taken off Eliquis recently as he no longer has atrial fibrillation following ablation. Status: Acute (6) End stage chronic kidney disease: Nephrology consultation Status: Acute Additional A&P Information Multiple other medical problems as outlined in his past medical history Full code Eliquis for DVT prophylaxis Attestations Medical Necessity Statement*: Will need less than 2 midnight stay for evaluation of hyperkalemia and dyspnea in this patient with end-stage renal disease. Time Spent in Patient Care: Greater than 35 minutes Coding Level of Care Code Acute Electric Motor Rebuilder for Chg Fwd Diagnoses Dyspnea R06.00 Hyperkalemia E87.5 Hypertension I10 Hypertension type: essential hypertension COPD (chronic obstructive pulmonary disease) J44.9 Paroxysmal atrial fibrillation with RVR I48.0 End stage chronic kidney disease N18.6
[2021-04-03] MEDS: dextrose 5 % 500 ML 100 ML IV (11:28)
[2021-04-03 11:36] LABS: ABG PCO2 47.6 mmHg (35-45); ABG PH Result 7.42 (7.35-7.45); Arterial Blood Gas Hematocrit 31.7 % (42-52); Base Excess ABG 5.4 mmol/L (-2.0-2.0); Blood Gas Allen Test Pos; Blood Gas Operator Identificat AMH; Blood Gas Sample Site Radial, right; Blood Gas Sample Type Arterial; HCO3 ABG 30.7 mmol/L (22-26); Oxygen Device NC; PO2 ABG 75.8 mmHg (80.0-100.0)
--- NOTE | 2021-04-03 12:05 | PC.NURSE ---
physician on telemedicine
--- NOTE | 2021-04-03 12:22 | P.CONIM_ITS ---
Providers/Reason For Consult Consulting Physician/Specialty*: Nephrology Reason for Consult*: Eval for ESRD History of Present Illness History of Present Illness Thank you for consultation, I am familiar with Mr. Schaefer from prior hospitalizations. He is a long-term dialysis patient. Last have dialysis on Thursday, was sent to the emergency room today with chest pain, shortness of colt th. Potassium level slightly elevated at 5.7, received some temporizing therapy for this, glucose level now on the low side. Breathing comfortably with nasal cannula, has some chronic extremity edema, not unusual for Mr. Schaefer. Otherwise no new acute presenting symptoms. Troponin low positive, no EKG changes. No acute abnormality seen on chest x-ray either. Review of Systems Narrative: ROS - 12 point review of systems completed per HPI and subjective assessment, this includes Constitutional: No weakness, fatigue Respiratory: SOB on exertion, comfortable at rest CardioVasc: chest pain, no palpitations Gastrointestinal: No nausea, no vomiting Neurological: No seizures, no AMS Derm: No new rashes, lesions or wounds Immunological: No seasonal and no food allergies Meds/Allergies Home Medications and Allergies Home Medications Medication Instructions Recorded Confirmed Last Taken Type vit B,C-folic ac 800 mcg-zinc 12.5 1 tab PO DAILY 06/09/19 04/03/21 04/02/21 History mg-selen-D3 2,000 unit-vit E tablet Home oxygen #1 ea 08/07/20 04/03/21 Unknown Rx nebulizers #1 ea 08/07/20 04/03/21 Unknown Rx sucroferric oxyhydroxide 500 mg See Rx Instructions .ROUTE .COMPLEX 11/12/20 04/03/21 Unknown History chewable tablet budesonide-formoterol HFA 160 2 puff INHALATION BID 30 Days 12/28/20 04/03/21 Unknown Rx mcg-4.5 mcg/actuation aerosol #10.2 g inhaler metolazone 5 mg PO .ON MON,THU,Thu12/30/20 04/03/21 04/03/21 05:30 History pantoprazole 40 mg PO BID 12/30/20 04/03/21 04/03/21 05:30 History revefenacin 175 mcg/3 mL solution 175 mcg INHALATION DAILY 01/16/21 04/03/21 Unknown History for nebulization albuterol sulfate 90 mcg/actuation 2 inh INHALATION Q4H PRN #8.5 g 01/28/21 04/03/21 Unknown Rx aerosol inhaler furosemide 80 mg tablet 80 mg PO BID #180 tab 01/28/21 04/03/21 04/03/21 05:30 Rx acetaminophen 1,000 mg PO Q4H PRN 02/15/21 04/03/21 Unknown History budesonide 0.5 mg INHALATION BID PRN 02/15/21 04/03/21 Unknown History isosorbide mononitrate 120 mg PO DAILY 02/15/21 04/03/21 04/03/21 05:30 History ondansetron HCl 8 mg PO Q8H PRN 02/15/21 04/03/21 Unknown History hydroxyzine HCl 25 mg tablet 25 mg PO BID PRN 30 Days #60 tab 02/19/21 04/03/21 Unknown Rx Celexa 10 mg PO QAM 04/03/21 04/03/21 04/03/21 05:30 History Coreg See Rx Instructions .ROUTE .COMPLEX 04/03/21 04/03/21 04/02/21 History Eliquis 5 mg PO .NOT TAKEN 3 WEEKS 04/03/21 04/03/21 Unknown History aspirin 81 mg PO QAM 04/03/21 04/03/21 04/03/21 05:30 History atorvastatin 40 mg PO QAM 04/03/21 04/03/21 04/03/21 05:30 History clonidine HCl See Rx Instructions .ROUTE .COMPLEX 04/03/21 04/03/21 04/02/21 History hydralazine 50 - 100 mg PO TID 04/03/21 04/03/21 04/03/21 05:30 History 100 mg nifedipine 60 mg PO QAM 04/03/21 04/03/21 04/03/21 05:30 History Allergies Allergy/AdvReac Type Severity Reaction Status Date / Time Penicillins Allergy ALGY-Hives Verified 04/03/21 09:54 tramadol Allergy ALGY-Hives Verified 04/03/21 09:54 Current Medications Current Medications Generic Name Dose Route Start Last Admin Trade Name Freq PRN Reason Stop Dose Admin Dextrose 50 ml 04/03/21 08:27 04/03/21 11:15 Dextrose 50% Syringe 50 Ml IVP 50 ml PRN PRN Administration hypoglycemia protocol Protocol Dextrose 500 mls @ 100 mls/hr 04/03/21 08:27 04/03/21 11:28 D5w IV 100 mls/hr ONCE PRN Administration Adult Acute Hypoglycemia Prot Protocol PFSH Acute PFSH: Medical History (Updated 04/03/21 @ 11:22 by Henry Frazier MD) Anemia Anxiety and depression Atrial fibrillation Chest pain COPD (chronic obstructive pulmonary disease) Reports he is on 4 L of oxygen at home CRF (chronic renal failure) Diastolic CHF Elevated troponin Encounter to establish care End stage chronic kidney disease GERD (gastroesophageal reflux disease) Hypertension Hypertension screen Hypoxia Insomnia Lower respiratory tract infection Resistant hypertension Sebaceous cyst Vitamin D deficiency Surgical History H/O circumcision H/O hand surgery right hand with hardware Presence of peritoneal dialysis catheter S/P dialysis catheter insertion (12/12/19) Removed on 04/04/2020 S/P hemodialysis catheter insertion Family History Other Adopted Denies family history of Anesthesia complication Bleeding disorder Social History Smoking and tobacco status: never smoked Alcohol intake: never Household members: significant other Marital status: Single Current occupational status: disabled History of recent travel: Yes Details: [place] Out of state: Yes Vitals/I&O/Wt Last Vital Signs Temp 98.8 F 04/03/21 07:10 Pulse 93 04/03/21 08:17 Resp 16 04/03/21 08:17 BP 174/99 04/03/21 08:17 Pulse Ox 93 04/03/21 08:17 Weight last 48 hrs Weight 92.986 kg Physical Exam Narrative: EXAM NARRATIVE: Constitutional: Awake, comfortable HEENT: Wet mucosa, no jvp, non icteric Lungs: Bilaterally clear without discernible wheeze, rales in all lung zones CVS: S1 S2, no murmurs Abdo: Soft, BS ok Ext 4: Minimal edema, peripheral perfusion with no cyanosis Neurological: Grossly non-focal A&P Additional A&P Information 1. ESRD We will plan dialysis today, 2K bath, ultrafiltration 3-4 L Continue M, W, F schedule. We will evaluate tomorrow morning for additional dialysis needs. 2. Chest pain, shortness of breath Management per medical team, ACS rule out, dialysis may help any element of congestive heart disease as well. 3. Hemodynamics Blood pressure little elevated, no acute treatment for this pending ultrafil tration with dialysis today. We will continue to monitor hemodynamics, continue home medications 4. Chronic ESRD issues Continue outpatient medications including Auryxia that he takes for phosphorus binder therapy. Thank you for consultation, as always a pleasure to follow these patients with you Matthew Holley MD Nephrology [phone] Patient seen and examined via telemedicine, with the assistance of the bedside RN > 25 min spent in evaluation and mgmt of patient Coding Level of Care Code Acute Train Reservation Clerk for Shilpa Phillips
--- NOTE | 2021-04-03 13:11 | ECG_ITS ---
[facility] Test Date: 2021-04-03 Pat Name: Leopoldo Schaefer Department: Room: 271 Gender: Male Claim Adjuster: : 1975 Requested By: Leopoldo Farooq Order Number: [id number] Vaughn MD: Qi Brown M.D. Measurements Intervals [place] Rate: 78 P: 72 WV: 183 QRS: 5 QRSD: 105 T: 86 QT: 394 QTc: 450 Interpretive Statements SINUS RHYTHM TALL T-WAVES, SUGGESTS HYPERKALEMIA Compared to ECG 04/03/2021 09:14:36 First degree AV block no longer present Intraventricular conduction delay no longer present ST (T wave) deviation no longer present Early repolarization no longer present Electronically Signed On 04-04-2021 22:02:20 RENAL SOCIAL WORKER by Qi Brown M.D. [id number]
[2021-04-03 13:26] LABS: Adenovirus Not Detected (NOT DETECT); Chlamydia Pneumoniae Not Detected (NOT DETECT); Coronavirus 229E,HKU1,NL63,OC4 Not Detected (NOT DETECT); Human Metapneumovirus Not Detected (NOT DETECT); Human Rhinovirus/Enterovirus Not Detected (NOT DETECT); Influenza A Not Detected (NOT DETECT); Influenza A H1 Not Detected (NOT DETECT); Influenza A H1-2009 Not Detected (NOT DETECT); Influenza A H3 Not Detected (NOT DETECT); Influenza B Not Detected (NOT DETECT); Mycoplasma Pneumoniae Not Detected (NOT DETECT); Parainfluenza Virus Type 1 Not Detected (NOT DETECT); Parainfluenza Virus Type 2 Not Detected (NOT DETECT); Parainfluenza Virus Type 3 Not Detected (NOT DETECT); Parainfluenza Virus Type 4 Not Detected (NOT DETECT); Respiratory Syncytial Virus A Not Detected (NOT DETECT); Respiratory Syncytial Virus B Not Detected (NOT DETECT); SARS-COV-2 Not Detected (NOT DETECT)
--- NOTE | 2021-04-03 13:26 | PC.NURSE ---
attempted to call report to [facility] x2
[2021-04-03 13:28] LABS: Glucose Point of Care 76 mg/dL (70-110)
[2021-04-03] MEDS: heparin 5,000 unit/mL INJ 1 mL 5000 UNIT SUBCUT ×2 (13:32→23:35)
[2021-04-03 13:37] LABS: Influenza A Not Detected (NOT DETECT); Influenza A H1 Not Detected (NOT DETECT); Influenza A H1-2009 Not Detected (NOT DETECT); Influenza A H3 Not Detected (NOT DETECT); Influenza B Not Detected (NOT DETECT)
[2021-04-03 13:38] LABS: Results from Genmark
[2021-04-03 13:49] LABS: Blood Urea Nitrogen 50 mg/dL (6-20); Carbon Dioxide 24 mmol/L (22-29); Chloride 95 mmol/L (98-107); Glomerular Filtration Rate 5.6 mL/min (90-130); Glucose 72 mg/dL (65-115); Osmolality Calculated 290 mOsm/kg (285-295); Sodium 134 mmol/L (136-145)
[2021-04-03 13:54] LABS: Anion Gap 20.3 (5-19); Potassium 5.3 mmol/L (3.5-5.1)
--- NOTE | 2021-04-03 13:57 | PC.NURSE ---
report given to [facility] on [facility]
--- NOTE | 2021-04-03 14:16 | PC.NURSE ---
patient taken to med surg 271 via wheelchair, all belongings are with patient
[2021-04-03 14:18] LABS: Troponin 5 6HR 66.55 ng/L (0-15)
[2021-04-03 14:21] LABS: Troponin 5 6HR Delta -2.45 ng/L (0-12)
[2021-04-03] MEDS: hyDRALAzine 50 mg Tablet 100 MG PO ×2 (15:16→21:15)
[2021-04-03] MEDS: metOLazone 5 MG Tablet PO (15:16)
[2021-04-03] MEDS: carvedilol 25 mg Tablet 50 MG PO (15:16)
[2021-04-03] MEDS: pantoprazole DR 40 mg Tablet PO (17:18)
[2021-04-03] MEDS: FUROsemide 40 mg Tablet 80 MG PO (17:18)
[2021-04-03] MEDS: ondansetron 2 mg/ML SDV 2 mL 4 MG IVP (17:28)
[2021-04-03 17:36] LABS: Glucose Point of Care 90 mg/dL (70-110)
[2021-04-03 17:36] LABS: Glucose Point of Care 112 mg/dL (70-110)
[2021-04-03 20:03] LABS: Glucose Point of Care 87 mg/dL (70-110)
[2021-04-03 20:46] LABS: Glucose Point of Care 93 mg/dL (70-110)
[2021-04-03] MEDS: NIFEdipine 10 mg Capsule 20 MG PO (21:26)
[2021-04-03 22:58] LABS: Glucose Point of Care 94 mg/dL (70-110)
[2021-04-04] VITALS (12 sets, daily range): BP systolic 150–199; BP diastolic 75–98; PULSE 76–93; RESP 18–20; TEMP 36.7–37.3; O2SAT 83–96
[2021-04-04 03:11] LABS: Glucose Point of Care 92 mg/dL (70-110)
[2021-04-04] MEDS: NIFEdipine ER (24 hr) 30 mg Tablet 60 MG PO (05:24)
[2021-04-04] MEDS: atorvastatin 40 mg Tablet PO (05:24)
[2021-04-04] MEDS: citalopram 20 mg Tablet 10 MG PO (05:24)
[2021-04-04] MEDS: aspirin 81 mg EC Tablet PO (05:25)
[2021-04-04 06:38] LABS: Basophils # 0.1 10^3/uL (0.0-0.1); Basophils % 1.5 %; Eosinophils # 0.8 10^3/uL (0.0-0.8); Eosinophils % 10.7 %; Hematocrit 35.8 % (42.0-52.0); Hemoglobin 11.2 g/dL (11.7-16.6); Lymphocytes # 1.1 10^3/uL (0.8-4.8); Lymphocytes % 15.5 %; Mean Corpuscular HGB Conc 31.3 g/dL (30.0-36.0); Mean Corpuscular Volume 99.2 fl (80-94); Mean Platelet Volume 9.2 fL (7.4-10.4); Monocytes # 1.1 10^3/uL (0.2-0.9); Monocytes % 14.5 %; Neutrophils % 57.7 %; Nucleated Red Blood Cells % 0 %; Platelet Count 250 10^3/cmm (130-400); Red Blood Count 3.61 10^6/uL (4.1-5.3); Red Cell Distribution Width 15.1 % (12.1-15.1); White Blood Count 7.3 10^3/uL (4.0-10.0)
[2021-04-04 06:40] LABS: Glucose Point of Care 86 mg/dL (70-110)
[2021-04-04] MEDS: budesonide 0.5 mg/2 mL Neb INHALATION (08:12)
[2021-04-04] MEDS: ipratropium-albuterol 3 mL Neb INHALATION (08:12)
[2021-04-04] MEDS: FUROsemide 40 mg Tablet 80 MG PO ×2 (09:19→17:58)
[2021-04-04] MEDS: isosorbide mononitrate ER 60 mg Tablet 120 MG PO (09:19)
[2021-04-04] MEDS: pantoprazole DR 40 mg Tablet PO ×2 (09:20→17:58)
[2021-04-04] MEDS: hyDRALAzine 50 mg Tablet 100 MG PO ×2 (09:20→16:13)
[2021-04-04] MEDS: cloNIDine 0.1 mg Tablet 0.3 MG PO ×2 (09:21→16:13)
--- NOTE | 2021-04-04 09:48 | PM.PN ---
Subjective Subjective: Interval history: Mr. Schaefer is relatively symptom-free this morning. Falling asleep on my interview again. Denies chest pain, no shortness of breath. Dialysis went well yesterday. Hemodynamics reviewed and remained stable. Blood pressure is a little on the high side. Vitals/I&O/Wt Last Vital Signs Temp 98.2 F 04/04/21 08:00 Pulse 86 04/04/21 08:20 Resp 20 H 04/04/21 08:20 BP 184/98 04/04/21 09:21 Pulse Ox 96 04/04/21 08:20 04/03/21 04/04/21 04/04/21 22:59 06:59 14:59 Intake Total 920 / 920 260 / 1180 480 / 480 Output Total 5300 / 5300 Balance -4380 / -4380 260 / -4120 480 / 480 Weight last 48 hrs Weight 94.619 kg Weight 92.986 kg Weight 92.986 kg Physical Exam Narrative: EXAM NARRATIVE: Constitutional: Awake, comfortable HEENT: Wet mucosa, no jvp, non icteric Lungs: Bilaterally clear without discernible wheeze, rales in all lung zones CVS: S1 S2, no murmurs Abdo: Soft, BS ok Ext 4: Minimal edema, peripheral perfusion with no cyanosis Neurological: Grossly non-focal Data : 04/04/21 04:54 04/03/21 13:17 Micro: Microbiology 04/03/21 13:20 Blood Culture - Preliminary Blood SPECIMEN COLLECTED 04/03/21 13:17 Blood Culture - Preliminary Blood SPECIMEN COLLECTED A&P Additional A&P Information 1. ESRD We will plan dialysis tomorrow, 2K bath, ultrafiltration 3-4 L Continue M, W, F schedule. 2. Chest pain, shortness of breath Symptom free now, mgmt per medical team 3. Hemodynamics Blood pressure little elevated prior to meds. Would drive down dry weight prior to up-titrating his meds. Will UF 4-5L with dialysis tomorrow f note there are no Bp goals for ESRD patients 4. Chronic ESRD issues Continue outpatient medications including Auryxia that he takes for phosphorus binder therapy. Thank you for consultation, as always a pleasure to follow these patients with you Matthew Holley MD Nephrology [phone] Patient seen and examined via telemedicine, with the assistance of the bedside RN > 25 min spent in evaluation and mgmt of patient Attestations Medical Necessity Statement*: Eval for ESRD Coding Level of Care Code Acute Journeyman Wireman for Chg Alan
[2021-04-04 10:46] LABS: Anion Gap 22.4 (5-19); Blood Urea Nitrogen 39 mg/dL (6-20); Calcium 10.1 mg/dL (8.5-10.5); Carbon Dioxide 24 mmol/L (22-29); Chloride 95 mmol/L (98-107); Glomerular Filtration Rate 8.8 mL/min (90-130); Glucose 95 mg/dL (65-115); Osmolality Calculated 291 mOsm/kg (285-295); Potassium 5.4 mmol/L (3.5-5.1); Sodium 136 mmol/L (136-145)
--- NOTE | 2021-04-04 11:06 | PM.DCS ---
Discharge Providers Date of Admission: 04/03/21 11:26 Date of Discharge: April 04, 2021 Attending Provider at Admission: Henry Frazier MD Attending Provider at Discharge: Henry Frazier MD Diagnoses at Discharge Discharge Diagnosis (1) Dyspnea: Status: Acute (2) Hyperkalemia: Status: Acute (3) Hypertension: Status: Acute Qualifiers: Hypertension type: essential hypertension Qualified Code(s): I10 - Essential (primary) hypertension (4) COPD (chronic obstructive pulmonary disease): Status: Acute (5) Paroxysmal atrial fibrillation with RVR: Status: Acute (6) End stage chronic kidney disease: Status: Acute Reason for Visit Reason for Visit: CHEST HEAVINESS/ SOB Hospital Course Hospital Course Leopoldo presented to the hospital feeling a little bit more short of breath than normal. He states he is normally on about 3 L of oxygen. He reported his chest discomfort was unchanged. He had a recent angiogram demonstrating no obstructive coronary disease. Chest x-ray suggested some element of pulmonary edema. He was placed in the hospital, Covid testing as well as influenza testing was done and negative. Chest x-ray showed pulmonary edema, no obvious pneumonia. Dialysis was performed, and over 4 L were removed. The following day the patient was feeling much better, reporting his symptomatology is gone away. I discussed this case with nephrology who reported that he was stable from their standpoint for discharge and he will contact his outpatient skeins yarn examiner for discussion regarding lowering dry weight. He will have dialysis through his outpatient skeins yarn examiner tomorrow. Secondary to mild elevation of potassium of 5.4 he was given Kayexalate prior to discharge. Martha was taken off of his medicine discharge list as his reported cardiology has stopped this after clinic visit. He has not had atrial fibrillation in quite some time since an ablation occurred in [place]. Physical Exam Narrative: EXAM NARRATIVE: General exam no distress, reporting he feels better and more alert. Refuses any consideration of CPAP/BiPAP Neck is supple Cardiovascular regular rate and rhythm Lungs clear Abdomen soft Extremities no cyanosis clubbing or edema Discharge Data Data Completed and Pending: Completed Studies During Hospitalization Category Date Time Status XR chest 1V sully ble [id number] Stat Exams 04/03/21 07:11 Completed Pending at discharge Category Date Time Status Blood Culture Sta t Lab 04/03/21 13:20 Results Labs from last 24 hours 04/04/21 04/04/21 04/04/21 10:16 06:29 04:54 WBC 7.3 RBC 3.61 L Hgb 11.2 L Hct 35.8 L MCV 99.2 H MCH 31.0 MCHC 31.3 RDW 15.1 Plt Count 250 MPV 9.2 Neut % (Auto) 57.7 Lymph % (Auto) 15.5 [place] % (Auto) 14.5 Eos % (Auto) 10.7 Baso % (Auto) 1.5 Neut # (Auto) 4.20 Lymph # (Auto) 1.1 [place] # (Auto) 1.1 H Eos # (Auto) 0.8 Baso # (Auto) 0.1 Nucleated RBC % (a uto) 0 Nucleated RBCs # 0.0 Specimen Type Sample Site ABG pH ABG pCO2 ABG pO2 ABG HCO3 ABG Base Excess Shantanu Test Hematocrit O2 Delivery Device O2 Liters/Min FiO2 [employer] Principal ID Sodium 136 Potassium 5.4 H Chloride 95 L Carbon Dioxide 24 Anion Gap 22.4 H BUN 39 H Creatinine 6.8 H* GFR Calculation 8.8 L Glucose 95 POC Glucose 86 Calculated Osmolal ity 291 Calcium 10.1 Troponin T Hi Sens 6Hr Troponin T Hi Sens 6Hr Delta Nasal Influ A H1 2 009 PCR Coronavirus 229E ( PCR) Influenza A (H1) P CR Influenza A (H3) P CR Influenza Type A A g Influenza Type A ( PCR) Influenza Type B A g Influenza Type B ( PCR) SARS-CoV-2 (PCR) 04/04/21 04/03/21 04/03/21 02:56 22:53 20:41 WBC RBC Hgb Hct MCV MCH MCHC RDW Plt Count MPV Neut % (Auto) Lymph % (Auto) [place] % (Auto) Eos % (Auto) Baso % (Auto) Neut # (Auto) Lymph # (Auto) [place] # (Auto) Eos # (Auto) Baso # (Auto) Nucleated RBC % (a uto) Nucleated RBCs # Specimen Type Sample Site ABG pH ABG pCO2 ABG pO2 ABG HCO3 ABG Base Excess [place] Test Hematocrit O2 Delivery Device O2 Liters/Min FiO2 [employer] Principal ID Sodium Potassium Chloride Carbon Dioxide Anion Gap BUN Creatinine GFR Calculation Glucose POC Glucose 92 94 93 Calculated Osmolal ity Calcium Troponin T Hi Sens 6Hr Troponin T Hi Sens 6Hr Delta Nasal Influ A H1 2 009 PCR Coronavirus 229E ( PCR) Influenza A (H1) P CR Influenza A (H3) P CR Influenza Type A A g Influenza Type A ( PCR) Influenza Type B A g Influenza Type B ( PCR) SARS-CoV-2 (PCR) 04/03/21 04/03/21 04/03/21 19:24 16:50 15:18 WBC RBC Hgb Hct MCV MCH MCHC RDW Plt Count MPV Neut % (Auto) Lymph % (Auto) [place] % (Auto) Eos % (Auto) Baso % (Auto) Neut # (Auto) Lymph # (Auto) [place] # (Auto) Eos # (Auto) Baso # (Auto) Nucleated RBC % (a uto) Nucleated RBCs # Specimen Type Sample Site ABG pH ABG pCO2 ABG pO2 ABG HCO3 ABG Base Excess [place] Test Hematocrit O2 Delivery Device O2 Liters/Min FiO2 [employer] Principal ID Sodium Potassium Chloride Carbon Dioxide Anion Gap BUN Creatinine GFR Calculation Glucose POC Glucose 87 112 H 90 Calculated Osmolal ity Calcium Troponin T Hi Sens 6Hr Troponin T Hi Sens 6Hr Delta Nasal Influ A H1 2 009 PCR Coronavirus 229E ( PCR) Influenza A (H1) P CR Influenza A (H3) P CR Influenza Type A A g Influenza Type A ( PCR) Influenza Type B A g Influenza Type B ( PCR) SARS-CoV-2 (PCR) 04/03/21 04/03/21 04/03/21 13:19 13:17 13:17 WBC RBC Hgb Hct MCV MCH MCHC RDW Plt Count MPV Neut % (Auto) Lymph % (Auto) [place] % (Auto) Eos % (Auto) Baso % (Auto) Neut # (Auto) Lymph # (Auto) [place] # (Auto) Eos # (Auto) Baso # (Auto) Nucleated RBC % (a uto) Nucleated RBCs # Specimen Type Sample Site ABG pH ABG pCO2 ABG pO2 ABG HCO3 ABG Base Excess [place] Test Hematocrit O2 Delivery Device O2 Liters/Min FiO2 [employer] Principal ID Sodium 134 L Potassium 5.3 H Chloride 95 L Carbon Dioxide 24 Anion Gap 20.3 H BUN 50 H Creatinine 10.0 H* GFR Calculation 5.6 L Glucose 72 POC Glucose 76 Calculated Osmolal ity 290 Calcium 9.0 Troponin T Hi Sens 6Hr 66.55 H Troponin T Hi Sens 6Hr Delta -2.45 L Nasal Influ A H1 2 009 PCR Coronavirus 229E ( PCR) Influenza A (H1) P CR Influenza A (H3) P CR Influenza Type A A g Influenza Type A ( PCR) Influenza Type B A g Influenza Type B ( PCR) SARS-CoV-2 (PCR) 04/03/21 04/03/21 04/03/21 11:45 11:38 11:25 WBC RBC Hgb Hct MCV MCH MCHC RDW Plt Count MPV Neut % (Auto) Lymph % (Auto) [place] % (Auto) Eos % (Auto) Baso % (Auto) Neut # (Auto) Lymph # (Auto) [place] # (Auto) Eos # (Auto) Baso # (Auto) Nucleated RBC % (a uto) Nucleated RBCs # Specimen Type Arterial Sample Site Radial, right ABG pH 7.42 ABG pCO2 47.6 H ABG pO2 75.8 L ABG HCO3 30.7 H ABG Base Excess 5.4 H Shantanu Test Pos Hematocrit 31.7 L O2 Delivery Device Nc O2 Liters/Min 3.0 FiO2 32.0 [employer] Principal ID Amh Sodium Potassium Chloride Carbon Dioxide Anion Gap BUN Creatinine GFR Calculation Glucose POC Glucose Calculated Osmolal ity Calcium Troponin T Hi Sens 6Hr Troponin T Hi Sens 6Hr Delta Nasal Influ A H1 2 009 PCR Not detected Coronavirus 229E ( PCR) Not detected Influenza A (H1) P CR Not detected Influenza A (H3) P CR Not detected Influenza Type A A g Cancelled Influenza Type A ( PCR) Not detected Influenza Type B A g Cancelled Influenza Type B ( PCR) Not detected SARS-CoV-2 (PCR) Not detected 04/03/21 11:09 WBC RBC Hgb Hct MCV MCH MCHC RDW Plt Count MPV Neut % (Auto) Lymph % (Auto) [place] % (Auto) Eos % (Auto) Baso % (Auto) Neut # (Auto) Lymph # (Auto) [place] # (Auto) Eos # (Auto) Baso # (Auto) Nucleated RBC % (a uto) Nucleated RBCs # Specimen Type Sample Site ABG pH ABG pCO2 ABG pO2 ABG HCO3 ABG Base Excess Sh[place]anu Test Hematocrit O2 Delivery Device O2 Liters/Min FiO2 [employer] Principal ID Sodium Potassium Chloride Carbon Dioxide Anion Gap BUN Creatinine GFR Calculation Glucose POC Glucose 38 L* Calculated Osmolal ity Calcium Troponin T Hi Sens 6Hr Troponin T Hi Sens 6Hr Delta Nasal Influ A H1 2 009 PCR Coronavirus 229E ( PCR) Influenza A (H1) P CR Influenza A (H3) P CR Influenza Type A A g Influenza Type A ( PCR) Influenza Type B A g Influenza Type B ( PCR) SARS-CoV-2 (PCR) Vitals: Last Vital Signs Temp 98.2 F 04/04/21 08:00 Pulse 86 04/04/21 08:20 Resp 20 H 04/04/21 08:20 BP 184/98 04/04/21 09:21 Pulse Ox 87 L 04/04/21 10:22 Discharge Plan Discharge Patient Disposition: Home Condition: Stable Prescriptions: Continued Velphoro 500 mg tablet,chewable See Rx Instructions .ROUTE .COMPLEX RF: 0 hydroxyzine HCl 25 mg tablet 25 mg PO BID PRN (Reason: itching) 30 Days Qty: 60 RF: 0 Yupelri 175 mcg/3 mL solution for nebulization 175 mcg inhalation DAILY RF: 0 RenaPlex-D 800 mcg-12.5 mg -2,000 unit tablet 1 tab PO DAILY RF: 0 (DME) Home oxygen See Rx Instructions .Route .MEDSUPPLY Qty: 1 RF: 0 (DME) nebulizers Misc See Rx Instructions .ROUTE .MEDSUPPLY Qty: 1 RF: 0 budesonide-formoterol [Symbicort] 160-4.5 mcg/actuation HFA aerosol inhaler 2 puff inhalation BID 30 Days Qty: 10.2 RF: 2 albuterol sulfate [Ventolin HFA] 90 mcg/actuation HFA aerosol inhaler 2 inh inhalation Q4H PRN (Reason: shortness of breath or wheezing) Qty: 8.5 RF: 2 furosemide 80 mg tablet 80 mg PO BID Qty: 180 RF: 0 metolazone 5 mg tablet 5 mg PO .ON MON,WED,FRI RF: 0 pantoprazole 40 mg tablet,delayed release (DR/EC) 40 mg PO BID RF: 0 ondansetron HCl 8 mg tablet 8 mg PO Q8H PRN (Reason: Nausea And Vomiting) RF: 0 acetaminophen 500 mg Tablet 1,000 mg PO Q4H PRN (Reason: Pain) RF: 0 isosorbide mononitrate 120 mg tablet extended release 24 hr 120 mg PO DAILY RF: 0 budesonide 0.5 mg/2 mL suspension for nebulization 0.5 mg inhalation BID PRN (Reason: states only uses prn) RF: 0 nifedipine 60 mg tablet extended release 24hr 60 mg PO QAM RF: 0 atorvastatin 40 mg tablet 40 mg PO QAM RF: 0 Coreg 25 mg tablet See Rx Instructions .ROUTE .COMPLEX RF: 0 Celexa 10 mg tablet 10 mg PO QAM RF: 0 clonidine HCl 0.3 mg tablet See Rx Instructions .ROUTE .COMPLEX RF: 0 aspirin 81 mg tablet,delayed release (DR/EC) 81 mg PO QAM RF: 0 hydralazine 100 mg tablet 50 - 100 mg PO TID RF: 0 Discontinued Eliquis 5 mg tablet 5 mg PO .NOT TAKEN 3 WEEKS RF: 0 Discharge Orders: Discharge Order (Routine); Ordered 04/04/21 Ordered By: Henry Frazier Referrals: Handy Pillai MD [Referring] - 1-3 days (Keep appointment for dialysis tomorrow to revisit overall fluid status.) Discharge Diet: Usual diet Discharge Activity: Increase activity as tolerated Patient Instructions: Opioid Safety Activity Restrictions/Additional Instructions: Renal diet Follow-up with nephrology regular dialysis appointments, trying to drive dry weight down Return for any concerns Oxygen 3 L per nasal cannula Arrange for follow-up by primary care provider in 3 to 4 days. Discharge Attestations Time Spent in Discharge Care*: greater than 30 min Status at Discharge: Cognitive status at discharge: cognitively intact, Behavioral status at discharge: cooperative, Quality Metrics Clinical Quality Measures During this hospital stay, did patient experience: None Coding Level of Care Code Acute Chg FW DC note Diagnoses Dyspnea R06.00 Hyperkalemia E87.5 Hypertension I10 Hypertension type: essential hypertension COPD (chronic obstructive pulmonary disease) J44.9 Paroxysmal atrial fibrillation with RVR I48.0 End stage chronic kidney disease N18.6
[2021-04-04] MEDS: heparin 5,000 unit/mL INJ 1 mL 5000 UNIT SUBCUT (11:19)
[2021-04-04] MEDS: sodium polystyrene sulfonate 15 gm/60 mL Btl PO (11:19)
== END 2021-04-04 19:00 | disposition home or self-care (01) ==
LOC: ER 07:23 → MEDSURG 14:10
PROVIDERS: Admitting Provider Internal Medicine; Emergency Provider Emergency Medicine; Visit Provider Internal Medicine
DX: R06.00 Dyspnea, unspecified (principal); E87.5 Hyperkalemia; J44.9 Chronic obstructive pulmonary disease, unspecified; I48.0 Paroxysmal atrial fibrillation; Z99.81 Dependence on supplemental oxygen; I13.2 Hypertensive heart and chronic kidney disease with heart failure and with stage 5 chronic kidney disease, or end stage renal disease; N18.6 End stage renal disease; I50.30 Unspecified diastolic (congestive) heart failure; K21.9 Gastro-esophageal reflux disease without esophagitis; Z99.2 Dependence on renal dialysis; Z79.01 Long term (current) use of anticoagulants; Z79.82 Long term (current) use of aspirin
CPT/HCPCS: 36416; 36600; 71045; 80048; 80053; 82803; 82962; 83690; 84484; 85025; 85610; 85730; 87040; 87631; 87635; 93005; 94640; 96365; 96366; 96372; 96375; 99285; G0378; J0610; J1644; J1815; J2405; J3490; J7626

== ENCOUNTER 2021-05-03 19:25 | Inpatient (IN) | payer MEDICARE, MEDICAID, SELFPAY ==
--- NOTE | 2021-05-03 19:28 | XRR_ITS ---
PROCEDURE INFORMATION: Exam: XR Chest Exam date and time: 05/03/2021 7:28 PM Age: 45 years old Clinical indication: Shortness of breath; Additional info: SOB TECHNIQUE: Imaging protocol: XR of the chest. Views: 1 view. COMPARISON: CR XR chest 1V portable [id number] 04/03/2021 7:45 AM FINDINGS: Tubes, catheters and devices: Left-sided dialysis catheter terminates in the right atrium. Lungs: Mildly hyperexpanded lungs. Hazy opacification adjacent to the effusions, likely atelectasis. Increased interstitial lung markings suggestive of interstitial pulmonary edema. Pleural spaces: Small volume pleural effusions. No pneumothorax. Heart/Mediastinum: Mild cardiomegaly with central pulmonary vascular congestion. Bones/joints: Visualized osseous structures are intact. XR/XR chest 1V portable [id number] IMPRESSION: Mild cardiomegaly and central pulmonary vascular congestion. Small volume bilateral pleural effusions. Hazy opacification adjacent to the pleural effusions, most likely corresponding atelectasis. Increased interstitial lung markings suggestive of interstitial pulmonary edema.
--- NOTE | 2021-05-03 19:28 | ECG_ITS ---
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 Measurements Intervals [place] Rate: 103 P: 61 NC: 197 QRS: -7 QRSD: 117 T: 97 QT: 345 QTc: 453 Interpretive Statements SINUS TACHYCARDIA LEFT VENTRICULAR HYPERTROPHY AND ST-T CHANGE [VOLTAGE CRITERIA PLUS ST/T ABNORMALITY] LATERAL MYOCARDIAL INFARCTION , AGE INDETERMINATE Compared to ECG 04/03/2021 13:23:57 Left ventricular hypertrophy now present ST (T wave) deviation now present Myocardial infarct finding now present Sinus rhythm no longer present Electronically Signed On 05-04-2021 0:43:48 ASSISTANT PROFESSOR OF BIOCHEMISTRY by Lane Lloyd M.D. [email or web address]
--- NOTE | 2021-05-03 19:51 | ED_ITS ---
HPI - SOB/Dyspnea General: Chief Complaint: ER Hold Stated Complaint: SOB/ MISSED DIALYSIS Time Seen by Provider: 05/03/21 19:50 History of Present Illness: HPI Narrative: Mr. Schaefer is a 45-year-old gentleman with history of hypertension, hyperlipidemia, atrial fibrillation, end-stage renal disease on dialysis typically receiving dialysis Thursday through Thursday through a left tunneled catheter who presents emergency department shortness of breath and missing dialysis. He reports due to weather his dialysis treatments were canceled Thursday and Thursday (today). He underwent a normal run of dialysis on Thursday and has not had any missed any last week. He endorses progressive onset shortness of breath. Denies other change in health. This is typical of how he feels when he is volume overloaded. Does not require oxygen at baseline and is now requiring oxygen. Overall the course of symptoms has worsened. Intensity is severe. No other changes in health, exacerbating, relieving factors identified. Pertinent past history: congestive heart failure and other Onset (ago): day(s) Context: other Timing: progressively worsening Severity: severe Exacerbating factors: lying flat and exertion Relieving factors: nothing Known history of: congestive heart failure and other Review of Systems General: Reports: 10 or more systems reviewed and unremarkable except in HPI and below PFSH ED PFSH: Medical History Anemia Anxiety and depression Atrial fibrillation Chest pain COPD (chronic obstructive pulmonary disease) Reports he is on 4 L of oxygen at home CRF (chronic renal failure) Diastolic CHF Elevated troponin Encounter to establish care End stage chronic kidney disease GERD (gastroesophageal reflux disease) Hypertension Hypertension screen Hypoxia Insomnia Lower respiratory tract infection Resistant hypertension Sebaceous cyst Vitamin D deficiency Surgical History H/O circumcision H/O hand surgery right hand with hardware Presence of peritoneal dialysis catheter S/P dialysis catheter insertion (12/12/19) Removed on 04/04/2020 S/P hemodialysis catheter insertion Family History Other Adopted Denies family history of Anesthesia complication Bleeding disorder Social History Smoking and tobacco status: current every day smoker (1ppd X26 years) cigarettes [ Other cigarette details: On and off quitting and restarting] Alcohol intake: never Household members: significant other Marital status: Single Current occupational status: disabled History of recent travel: Yes Details: [place] Out of state: Yes Physical Exam Const: COMMON NORMALS: alert GENERAL APPEARANCE: cooperative, well developed, in distress and ill appearing NUTRITIONAL APPEARANCE: overweight HENMT: COMMON NORMALS: normocephalic and atraumatic HEAD & SCALP: normocephalic and atraumatic THROAT: posterior oropharynx normal Eye: COMMON NORMALS: conjunctivae normal CONJUNCTIVA: Yes conjunctivae normal SCLERA: sclerae normal Neck/C-Spine: COMMON NORMALS: supple GENERAL: Yes trachea midline Chest: OTHER: Dialysis tunneled catheter present Resp: COMMON NORMALS: normal respiratory effort EFFORT & INSPECTION: Yes tachypneic and Yes respiratory distress AUSCULTATION: crackles Laterality: bilateral Cardio: COMMON NORMALS: regular rhythm RATE: tachycardic RHYTHM: regular rhythm OTHER: Low extremity edema GI: COMMON NORMALS: Soft to palpation PALPATION: Yes Soft to palpation and No Tenderness to palpation present (GI) PERCUSSION: normal to percussion Extremity: GENERAL: Yes normal exam except as noted and No edema Neuro: COMMON NORMALS: moves all extremities SENSORIUM/ORIENTATION: Yes alert and No Orientation impaired Psych: COMMON NORMALS: mental status grossly normal and Normal thought process present THOUGHT PROCESS: Normal thought process present Course ED course: - Patient was seen and evaluated by me at bedside - Patient placed on cardiac monitors, IV access obtained - Initial evaluation notable for, respiratory distress - Based on EKG with peaked T waves empiric calcium ordered for membrane stabilization. Will plan to discuss with nephrology regarding how quickly we will be able to get dialysis before deciding additional hyperkalemia treatment - Nephrology consulted and will evaluate the patient for emergent dialysis - Labs notable for leukocytosis which is likely reactive. Metabolic panel with hyperkalemia, elevated BUN. BNP markedly elevated. - Imaging notable for pulmonary vascular congestion and bilateral effusions - - Upon serial reexamination after treatment the patient was similar, moved to ED room with capability to perform bedside dialysis. - Based on patient history, evaluation, labs, and imaging as interpreted the most likely cause of the patient's condition is acute hypoxic respiratory failure secondary to volume overload, pulmonary edema, hyperkalemia likely secondary to missed dialysis requiring acute intervention given EKG changes - The results of ED evaluation were discussed with the patient including plan for admission due to requirement for level of care not available if discharged to prevent significant worsening/deterioration. - Admitting service was contacted and Dr Romero with the hospitalist service agreed to admit the patient - Patient was admitted without further deterioration or significant events. Note: Click bubbles or prepopulated borrero in note writing are used for assistance with data collection and billing and are inherently more limited than narrative and other text portions of this note. Please use narrative for additional clinical history and defer to narrative/free test for any case of contradictory information. If information appears in only free text or click bubble it should be considered present or absent as reported. Please contact note greeting card writer for clarifications of clinical information or contradictory information. MDM is a brief summary, contradictory or erroneous seeming information should be clarified and full note should be reviewed. Vital Signs: Vital signs: Vital Signs Temperature 98.4 F 05/05/21 15:55 Pulse Rate 68 05/05/21 15:55 Respiratory Rate 18 05/05/21 15:55 Blood Pressure 137/74 05/05/21 15:55 Pulse Oximetry 97 05/05/21 15:55 MDM - SOB/Dyspnea Medical Decision Making 45-year-old gentleman with history of end-stage renal disease presenting with missed dialysis secondary to weather. Patient in distress with evidence of respiratory distress and volume overload. Patient found to be hyperkalemic and emergent nephrology consult with emergent dialysis performed. Patient admitted for likely repeat dialysis in the morning. Medical Records I reviewed the patient's medical records. Lab Data I reviewed the patient's lab results. : 05/05/21 06:31 05/05/21 06:31 Labs/Radiology: Radiology Impressions Chest X-Ray 05/03/21 19:28 IMPRESSION: Mild cardiomegaly and central pulmonary vascular congestion. Small volume bilateral pleural effusions. Hazy opacification adjacent to the pleural effusions, most likely corresponding atelectasis. Increased interstitial lung markings suggestive of interstitial pulmonary edema. Laboratory Results WBC 15.9 10^3/uL (4.0-10.0) H 05/03/21 20:23 RBC 3.95 10^6/uL (4.1-5.3) L 05/03/21 20:23 Hgb 12.3 g/dL (11.7-16.6) 05/03/21 20: Hct 38.5 % (42.0-52.0) L 05/03/21 20: MCV 97.5 fl (80-94) H 05/03/21 20: MCH 31.1 pg (28.0-34.0) 05/03/21: MCHC 31.9 g/dL (30.0-36.0) 05/03/21: RDW 15.0 % (12.1-15.1) 05/03/21: Plt Count 347 10^3/cmm (130-400) 05/03/21 20: MPV 8.5 fL (7.4-10.4) 05/03/21: Neut % (Auto) 83.6 % 05/03/21: Lymph % (Auto) 4.5 % 05/03/21: [place] % (Auto) 5.5 % 05/03/21: Eos % (Auto) 5.2 % 05/03/21: Baso % (Auto) 0.8 % 05/03/21: Neut # (Auto) 13.29 10^3/uL (1.8-7.7) H 05/03/21: Lymph # (Auto) 0.7 10^3/uL (0.8-4.8) L 05/03/21: [place] # (Auto) 0.9 10^3/uL (0.2-0.9) 05/03/21: Eos # (Auto) 0.8 10^3/uL (0.0-0.8) 05/03/21: Baso # (Auto) 0.1 10^3/uL (0.0-0.1) 05/03/21: Nucleated RBC % (auto) 0 % 05/03/21: Nucleated RBCs # 0.0 /100WBC 05/03/21 20: Sodium 136 mmol/L (136-145) 05/03/21 20: Potassium 6.8 mmol/L (3.5-5.1) H* 05/03/21 20: Chloride 93 mmol/L (98-107) L 05/03/21 20:23 Carbon Dioxide 21 mmol/L (22-29) L 05/03/21 20: Anion Gap 29.7 (5-19) H 05/03/21 20:23 BUN 83 mg/dL (6-20) H* D 05/03/21 20: Creatinine 13.4 mg/dL (0.7-1.2) H* 05/03/21 20:23 GFR Calculation 4.0 mL/min (90-130) L 05/03/21 20: Glucose 86 mg/dL (65-115) 05/03/21 20: Calculated Osmolality 306 mOsm/kg (285-295) H 05/03/21 20: Calcium 9.2 mg/dL (8.5-10.5) 05/03/21 20: Total Bilirubin 0.3 mg/dL (0.15-1.2) 05/03/21 20: AST 15 U/L (0-40) 05/03/21 20: ALT 9 U/L (0-41) 05/03/21 20: Alkaline Phosphatase 92 IU/L (40-130) 05/03/21 20:23 NT-Pro-B Natriuret Pep 65630 pg/mL (0-125) H 05/03/21 20: Total Protein 7.7 g/dL (6.6-8.7) 05/03/21 20: Albumin 4.0 g/dL (3.5-5.2) 05/03/21 20: Globulin 3.7 g/dL (1.3-4.6) 05/03/21 20:23 EKG Data EKG 1: I personally reviewed and interpreted this EKG as follows: EKG Interpretation Date: 05/03/21 EKG interpretation time: 20:08 Interpretation: Twelve-lead EKG shows a regular rhythm at a rate of 103. UT interval 197, QRS duration 117, QTc 405 Borderline left axis deviation Interpretation: Sinus tachycardia. Peaked T waves consistent with acute hyperkalemia given clinical history Critical Care Time Critical Care Time: Critical Care Time: Yes Total Critical Care Time: 40 Attestation: Due to a high probability of clinically significant, possibly life threatening deterioration, the patient required my highest level of attention and preparedness to intervene emergently and I personally spent this critical care time directly and personally managing the patient. This critical care time included obtaining a history; examining the patient; pulse oximetry; ordering and review of laboratory and imaging studies; arranging urgent treatment with development of a management plan; evaluation of patient's response to treatment; frequent reassessment; and, discussions with other providers as applicable. It was exclusive of separately billable procedures. Discharge Plan Discharge Patient Disposition: Placed in Observation Admit Provider: Donnie Romero Clinical Impression: Acute respiratory failure with hypoxia, Pulmonary edema, End stage chronic kidney disease, Hypertension, Hyperkalemia, Abnormal ECG Discharge Diet: Usual diet Discharge Activity: Resume usual activity Coding Level of Care Code ED Mba Intern for Shilpa Phillips
[2021-05-03 19:54] VITALS: BP 263/112; PULSE 106; RESP 22; TEMP 36.8; O2SAT 94; BMI 29.2
[2021-05-03] MEDS: calcium gluconate 0.9% NaCL 1 GM/50 ML PREMIX IV ×2 (20:25→23:38)
[2021-05-03 20:32] LABS: Basophils # 0.1 10^3/uL (0.0-0.1); Basophils % 0.8 %; Eosinophils # 0.8 10^3/uL (0.0-0.8); Eosinophils % 5.2 %; Hematocrit 38.5 % (42.0-52.0); Hemoglobin 12.3 g/dL (11.7-16.6); Lymphocytes # 0.7 10^3/uL (0.8-4.8); Lymphocytes % 4.5 %; Mean Corpuscular HGB Conc 31.9 g/dL (30.0-36.0); Mean Corpuscular Hemoglobin 31.1 pg (28.0-34.0); Mean Corpuscular Volume 97.5 fl (80-94); Mean Platelet Volume 8.5 fL (7.4-10.4); Monocytes # 0.9 10^3/uL (0.2-0.9); Monocytes % 5.5 %; Neutrophils # 13.29 10^3/uL (1.8-7.7); Neutrophils % 83.6 %; Nucleated Red Blood Cells % 0 %; Platelet Count 347 10^3/cmm (130-400); Red Blood Count 3.95 10^6/uL (4.1-5.3); White Blood Count 15.9 10^3/uL (4.0-10.0)
--- NOTE | 2021-05-03 20:44 | P.CONIM_ITS ---
Providers/Reason For Consult Consulting Physician/Specialty*: Nephrology Reason for Consult*: Eval for dialysis Primary Care Provider: Ricardo Stack MD History of Present Illness History of Present Illness Thank for consultation, today had the pleasure reviewing this 45-year-old gentleman that I know well from prior hospitalizations. He had dialysis on Thursday, however, skipped Thursday and Thursday due to weather prohibiting his transportation to his dialysis clinic. This afternoon he became overtly short of breath, and subsequently presented to the emergency room requesting dialysis. He denies any other additional symptoms at this time. He has a catheter in his right chest, this has been working well with no difficulty recently. Minimal extremity edema. No other uremic symptoms. Blood pressures overtly elevated at 260/120. Review of Systems Narrative: ROS - 12 point review of systems completed per HPI and subjective assessment, this includes Constitutional: Weakness, fatigue Respiratory: No SOB on exertion, comfortable at rest CardioVasc: No chest pain, palpitations Gastrointestinal: No nausea, no vomiting Neurological: No seizures, no AMS Derm: No new rashes, lesions or wounds Immunological: No seasonal and no food allergies Medications/Allergies Home Medications Medication Instructions Recorded Confirmed Last Taken Type vit B,C-folic ac 800 mcg-zinc 12.5 1 tab PO DAILY 06/09/19 04/03/21 04/02/21 History mg-selen-D3 2,000 unit-vit E tablet (RenaPlex-D) Home oxygen #1 ea 08/07/20 04/03/21 Unknown Rx nebulizers #1 ea 08/07/20 04/03/21 Unknown Rx sucroferric oxyhydroxide 500 mg See Rx Instructions .ROUTE .COMPLEX 11/12/20 04/03/21 Unknown History chewable tablet (Velphoro) budesonide-formoterol HFA 160 2 puff INHALATION BID 30 Days 12/28/20 04/03/21 Unknown Rx mcg-4.5 mcg/actuation aerosol #10.2 g inhaler (Symbicort) metolazone 5 mg tablet 5 mg PO .ON MON,WED,Thu12/30/20 04/03/21 04/03/21 05:30 History pantoprazole 40 mg tablet,delayed 40 mg PO BID 12/30/20 04/03/21 04/03/21 05:30 History release revefenacin 175 mcg/3 mL solution 175 mcg INHALATION DAILY 01/16/21 04/03/21 Unknown History for nebulization (Yupelri) albuterol sulfate 90 mcg/actuation 2 inh INHALATION Q4H PRN #8.5 g 01/28/21 04/03/21 Unknown Rx aerosol inhaler (Ventolin HFA) furosemide 80 mg tablet 80 mg PO BID #180 tab 01/28/21 04/03/21 04/03/21 05:30 Rx acetaminophen 500 mg tablet 1,000 mg PO Q4H PRN 02/15/21 04/03/21 Unknown History budesonide 0.5 mg/2 mL suspension 0.5 mg INHALATION BID PRN 02/15/21 04/03/21 Unknown History for nebulization isosorbide mononitrate 120 mg 120 mg PO DAILY 02/15/21 04/03/21 04/03/21 05:30 History tablet,extended release 24 hr ondansetron HCl 8 mg tablet 8 mg PO Q8H PRN 02/15/21 04/03/21 Unknown History hydroxyzine HCl 25 mg tablet 25 mg PO BID PRN 30 Days #60 tab 02/19/21 04/03/21 Unknown Rx aspirin 81 mg tablet,delayed 81 mg PO QAM 04/03/21 04/03/21 04/03/21 05:30 History release atorvastatin 40 mg tablet 40 mg PO QAM 04/03/21 04/03/21 04/03/21 05:30 History carvedilol 25 mg tablet (Coreg) See Rx Instructions .ROUTE .COMPLEX 04/03/21 04/03/21 04/02/21 History citalopram 10 mg tablet (Celexa) 10 mg PO QAM 04/03/21 04/03/21 04/03/21 05:30 History clonidine HCl 0.3 mg tablet See Rx Instructions .ROUTE .COMPLEX 04/03/21 04/03/21 04/02/21 History hydralazine 100 mg tablet 50 - 100 mg PO TID 04/03/21 04/03/21 04/03/21 05:30 History 100 mg nifedipine 60 mg tablet,extended 60 mg PO QAM 04/03/21 04/03/21 04/03/21 05:30 History release 24 hr Allergies Allergy/AdvReac Type Severity Reaction Status Date / Time Penicillins Allergy ALGY-Hives Verified 04/03/21 09:54 tramadol Allergy ALGY-Hives Verified 04/03/21 09:54 PFSH Acute PFSH: Medical History Anemia Anxiety and depression Atrial fibrillation Chest pain COPD (chronic obstructive pulmonary disease) Reports he is on 4 L of oxygen at home CRF (chronic renal failure) Diastolic CHF Elevated troponin Encounter to establish care End stage chronic kidney disease GERD (gastroesophageal reflux disease) Hypertension Hypertension screen Hypoxia Insomnia Lower respiratory tract infection Resistant hypertension Sebaceous cyst Vitamin D deficiency Surgical History H/O circumcision H/O hand surgery right hand with hardware Presence of peritoneal dialysis catheter S/P dialysis catheter insertion (12/12/19) Removed on 04/04/2020 S/P hemodialysis catheter insertion Family History Other Adopted Denies family history of Anesthesia complication Bleeding disorder Social History Smoking and tobacco status: current every day smoker (1ppd X26 years) cigarettes [ Other cigarette details: On and off quitting and restarting] Alcohol intake: never Household members: significant other Marital status: Single Current occupational status: disabled History of recent travel: Yes Details: [place] Out of state: Yes Vitals/I&O/Wt Last Vital Signs Temp 98.2 F 05/03/21 19:54 Pulse 106 H 05/03/21 19:54 Resp 22 H 05/03/21 19:54 BP 263/112 05/03/21 19:54 Pulse Ox 94 05/03/21 19:54 05/03/21 05/03/21 05/03/21 06:59 14:59 22:59 Intake Total 50 / 50 Balance 50 / 50 Weight last 48 hrs Weight 95.254 kg Physical Exam Narrative: EXAM NARRATIVE: Constitutional: Awake, comfortable HEENT: Wet mucosa, no jvp, non icteric Lungs: Bilaterally clear without discernible wheeze or rales in all lung zones CVS: S1 S2, no murmurs Abdo: Soft, BS ok Ext 4: Minimal edema, peripheral perfusion with no cyanosis Neurological: Grossly non-focal Data : 05/03/21 20:23 05/03/21 20:23 A&P Assessment and plan (1) End stage chronic kidney disease: 1. ESRD Skipped dialysis, now overtly short of breath, potassium pending but will like the dialysis this evening. We will likely run 2K, UF 4L over 3.5hrs A.m. labs, evaluation for dialysis tomorrow morning as well Continue Thursday, Thursday, Thursday schedule Dose medication for GFR less than 15 on dialysis 2. Hypertension Continue home medications, continue to monitor hemodynamics after dialysis this evening with effective ultrafiltration 3. Labs are currently pending 4. Disposition As long as his shortness of breath is subjectively improved after dialysis, should be of discharge in the morning Thank you for consultation, it is a pleasure to follow these cases with you Exam and interview performed with aid of bedside RN using telemedicine Time spent 20 min inc > 50% of time in face to face counseling Matthew Holley MD [facility] [phone] Status: Acute Consult Attestations Medical Necessity Statement: eval for ESRD Coding Level of Care Code Acute Gear Cutting Machine Operator for Shilpa Fwjose manuel Diagnoses End stage chronic kidney disease N18.6
[2021-05-03 20:58] LABS: Chloride 93 mmol/L (98-107); Sodium 136 mmol/L (136-145)
[2021-05-03 20:59] LABS: Potassium 6.8 mmol/L (3.5-5.1)
[2021-05-03 21:21] LABS: Alanine Aminotransferase 9 U/L (0-41); Alkaline Phosphatase 92 IU/L (40-130); Anion Gap 29.7 (5-19); Aspartate Amino Transferase 15 U/L (0-40); Calcium 9.2 mg/dL (8.5-10.5); Carbon Dioxide 21 mmol/L (22-29); Globulin 3.7 g/dL (1.3-4.6); Glucose 86 mg/dL (65-115); Osmolality Calculated 306 mOsm/kg (285-295); Total Bilirubin 0.3 mg/dL (0.15-1.2); Total Protein 7.7 g/dL (6.6-8.7)
[2021-05-03 21:22] LABS: Blood Urea Nitrogen 83 mg/dL (6-20)
--- NOTE | 2021-05-03 22:34 | P.HP_ITS ---
Providers/Chief Complaint Primary Care Provider: Donnie Romero MD Chief Complaint: SOB/ MISSED DIALYSIS History of Present Illness Leopoldo Schaefer is a 45 year old male with a past medical history of COPD, sleep apnea, end-stage renal disease on dialysis Thursday, Atrial fibrillation,Diastolic CHF, Resistant hypertension , came in with chief complaint of worsening shortness of breath going on for the last 2 days, he is complaining of orthopnea and PND, denies any chest pain , cough , fever , chills , nausea ,vomiting , abdominal pain. He has missed dialysis on Thursday. Upon arrival in the ER he was worked up for above-mentioned complaint. Pertinent imaging studies: X-ray chest: Suggestive of pulmonary vascular congestion, ?Small volume bilateral pleural effusions. Hazy opacification adjacent to the pleural effusions, most likely corresponding atelectasis. Increased interstitial lung markings suggestive of interstitial pulmonary edema. EKG: Peaked T waves, sinus tachycardia.LVH Pertinent labs: WBC 15.9 H&H 12.3/ 38.5 , PLT : 347 , serum sodium 136 serum potassium 6.8, BUN serum creatinine 83 / 13.4 Random blood glucose 86, proBNP: 48093 , Nephrology was consulted by the ER physician for: Plan was to dialyze him overnight. He also received calcium gluconate in the ER. Review of Systems General: Reports: 10 or more systems reviewed and unremarkable except in HPI and below Const: Denies: fever(s), chills, body aches, change in appetite or diaphoresis Card: Denies: palpitations or swelling of feet/ankles Resp: Denies: wheezing or pain on inspiration GI: Denies: abdominal pain, nausea, vomiting, diarrhea or constipation : Denies: flank pain or difficulty urinating Musc: Denies: back pain, extremity pain or extremity swelling Neuro: Denies: headache(s), difficulty walking or confusion Medications/Allergies Home Medications Medication Instructions Recorded Confirmed Last Taken Type vit B,C-folic ac 800 mcg-zinc 12.5 1 tab PO DAILY 06/09/19 04/03/21 04/02/21 History mg-selen-D3 2,000 unit-vit E tablet (RenaPlex-D) Home oxygen #1 ea 08/07/20 04/03/21 Unknown Rx nebulizers #1 ea 08/07/20 04/03/21 Unknown Rx sucroferric oxyhydroxide 500 mg See Rx Instructions .ROUTE .COMPLEX 11/12/20 04/03/21 Unknown History chewable tablet (Velphoro) budesonide-formoterol HFA 160 2 puff INHALATION BID 30 Days 12/28/20 04/03/21 Unknown Rx mcg-4.5 mcg/actuation aerosol #10.2 g inhaler (Symbicort) metolazone 5 mg tablet 5 mg PO .ON MON,THU,Thu12/30/20 04/03/21 04/03/21 05:30 History pantoprazole 40 mg tablet,delayed 40 mg PO BID 12/30/20 04/03/21 04/03/21 05:30 History release revefenacin 175 mcg/3 mL solution 175 mcg INHALATION DAILY 01/16/21 04/03/21 Unknown History for nebulization (Yupelri) albuterol sulfate 90 mcg/actuation 2 inh INHALATION Q4H PRN #8.5 g 01/28/21 04/03/21 Unknown Rx aerosol inhaler (Ventolin HFA) furosemide 80 mg tablet 80 mg PO BID #180 tab 01/28/21 04/03/21 04/03/21 05:30 Rx acetaminophen 500 mg tablet 1,000 mg PO Q4H PRN 02/15/21 04/03/21 Unknown History budesonide 0.5 mg/2 mL suspension 0.5 mg INHALATION BID PRN 02/15/21 04/03/21 Unknown History for nebulization isosorbide mononitrate 120 mg 120 mg PO DAILY 02/15/21 04/03/21 04/03/21 05:30 History tablet,extended release 24 hr ondansetron HCl 8 mg tablet 8 mg PO Q8H PRN 02/15/21 04/03/21 Unknown History hydroxyzine HCl 25 mg tablet 25 mg PO BID PRN 30 Days #60 tab 02/19/21 04/03/21 Unknown Rx aspirin 81 mg tablet,delayed 81 mg PO QAM 04/03/21 04/03/21 04/03/21 05:30 History release atorvastatin 40 mg tablet 40 mg PO QAM 04/03/21 04/03/21 04/03/21 05:30 History carvedilol 25 mg tablet (Coreg) See Rx Instructions .ROUTE .COMPLEX 04/03/21 04/03/21 04/02/21 History citalopram 10 mg tablet (Celexa) 10 mg PO QAM 04/03/21 04/03/21 04/03/21 05:30 History clonidine HCl 0.3 mg tablet See Rx Instructions .ROUTE .COMPLEX 04/03/2104/0304/02/21 History hydralazine 100 mg tablet 50 - 100 mg PO TID 04/03/21 04/03/21 04/03/21 05:30 History 100 mg nifedipine 60 mg tablet,extended 60 mg PO QAM 04/03/21 04/03/21 04/03/21 05:30 History release 24 hr Allergies Allergy/AdvReac Type Severity Reaction Status Date / Time Penicillins Allergy ALGY-Hives Verified 04/03/21 09:54 tramadol Allergy ALGY-Hives Verified 04/03/21 09:54 PFSH Acute PFSH: Medical History Anemia Anxiety and depression Atrial fibrillation Chest pain COPD (chronic obstructive pulmonary disease) Reports he is on 4 L of oxygen at home CRF (chronic renal failure) Diastolic CHF Elevated troponin Encounter to establish care End stage chronic kidney disease GERD (gastroesophageal reflux disease) Hypertension Hypertension screen Hypoxia Insomnia Lower respiratory tract infection Resistant hypertension Sebaceous cyst Vitamin D deficiency Surgical History H/O circumcision H/O hand surgery right hand with hardware Presence of peritoneal dialysis catheter S/P dialysis catheter insertion (12/12/19) Removed on 04/04/2020 S/P hemodialysis catheter insertion Family History Other Adopted Denies family history of Anesthesia complication Bleeding disorder Social History Smoking and tobacco status: current every day smoker (1ppd X26 years) cigarettes [ Other cigarette details: On and off quitting and restarting] Alcohol intake: never Household members: significant other Marital status: Single Current occupational status: disabled History of recent travel: Yes Details: [place] Out of state: Yes Vitals/I&O/Wt Last Vital Signs Temp 98.2 F 05/03/21 19:54 Pulse 106 H 05/03/21 19:54 Resp 22 H 05/03/21 19:54 BP 263/112 05/03/21 19:54 Pulse Ox 94 05/03/21 19:54 05/03/21 05/03/21 05/03/21 06:59 14:59 22:59 Intake Total 50 / 50 Balance 50 / 50 Weight last 48 hrs Weight 95.254 kg Physical Exam Const: COMMON NORMALS: patient oriented x3 HENMT: COMMON NORMALS: normocephalic and atraumatic HEAD & SCALP: normocephalic and atraumatic EXTERNAL EAR: Yes external ears normal Eye: COMMON NORMALS: no scleral icterus GENERAL EYE: appearance normal, both eyes and all related structures Chest: COMMONS NORMALS: normal inspection of the chest and normal palpation of entire chest wall CHEST: Yes Symmetrical chest wall rise Resp: COMMON NORMALS: normal respiratory effort, No retractions, No use of accessory muscles and clear to auscultation bilaterally EFFORT & INSPECTION: Yes symmetric chest movement AUSCULTATION: clear to auscultation bilaterally Cardio: COMMON NORMALS: regular rate, regular rhythm, S1 normal heart sound present, S2 normal heart sound present, No gallops present (Cardio), No murmurs present (Cardio), No rub (Cardio) and Peripheral pulses 2+ throughout RATE: regular rate RHYTHM: regular rhythm HEART SOUNDS: S1 normal heart sound present and S2 normal heart sound present PERIPHERAL PULSES: Peripheral pulses 2+ throughout GI: COMMON NORMALS: Normal to inspection, nondistended, normoactive bowel sounds present, Soft to palpation, non-tender, No hepatosplenomegaly present and no masses AUSCULTATION: Yes normoactive bowel sounds PALPATION: Yes Soft to palpation and Yes No hepatosplenomegaly present RECTAL EXAM: Yes deferred Extremity: COMMON NORMALS: no clubbing, cyanosis or edema and no pedal edema Neuro: COMMON NORMALS: patient oriented x3 Data : 05/04/21 04:50 05/04/21 04:50 A&P Assessment and plan (1) Hypertension: Status: Acute (2) Hyperkalemia: Status: Acute (3) COPD (chronic obstructive pulmonary disease): Status: Acute (4) Atrial fibrillation: Status: Acute (5) ESRD on dialysis: Status: Acute (6) Volume overload: Status: Acute (7) Hypertensive emergency: Status: Acute Plan Assessment #Hypertensive emergency #Shortness of breath secondary to volume overload secondary to missed dialysis #COPD #End-stage renal disease dialysis dependent Thursday #History of paroxysmal atrial fibrillation not on anticoagulation #Hyperkalemia #Leukocytosis Plan: #Resume routine hemodialysis, appreciate renal input #Continue home antihypertensive medication (hydralazine clonidine carvedilol, nifedipine) #Continue budesonide and albuterol inhaler #Follow repeat BMP #Heparin for DVT prophylaxis CODE STATUS: Full code Attestations Medical Necessity Statement*: Patient needs to be in hospital for management shortness of breath secondary to volume overload missed dialysis. Anticipated length of stay greater than 2 midnights. Time Spent in Patient Care: Greater than 35 minutes (>than 50% of time spent in counselling and/or direct pt care on unit) . 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
[2021-05-03 23:13] VITALS: BP 263/145
[2021-05-03] MEDS: cloNIDine 0.1 mg Tablet 0.3 MG PO (23:13)
[2021-05-03] MEDS: hyDRALAzine 50 mg Tablet 100 MG PO (23:14)
[2021-05-03] MEDS: heparin 5,000 unit/mL INJ 1 mL 5000 UNIT SUBCUT (23:19)
[2021-05-03 23:27] VITALS: BP 247/153; PULSE 110; RESP 24; O2SAT 95
[2021-05-03] MEDS: dextrose 50% syringe 50 mL 25 ML IVP (23:56)
[2021-05-04] VITALS (27 sets, daily range): BP systolic 111–257; BP diastolic 56–144; PULSE 62–109; RESP 15–27; TEMP 36.6; O2SAT 90–99
[2021-05-04 00:14] LABS: Glucose Point of Care 86 mg/dL (70-110)
[2021-05-04 01:20] LABS: Glucose Point of Care 79 mg/dL (70-110)
[2021-05-04] MEDS: dextrose 50% syringe 50 mL (01:23)
[2021-05-04] MEDS: nicardipine 20 MG/200 ML PREMIX 50 MG IV (03:00)
--- NOTE | 2021-05-04 03:50 | PC.NURSE ---
Pt. nicardapine drip stopped. Pt. blood pressure at 136/98.
[2021-05-04 05:16] LABS: Basophils # 0.1 10^3/uL (0.0-0.1); Basophils % 0.8 %; Eosinophils # 0.5 10^3/uL (0.0-0.8); Eosinophils % 3.7 %; Hematocrit 34.9 % (42.0-52.0); Hemoglobin 11.2 g/dL (11.7-16.6); Lymphocytes # 0.7 10^3/uL (0.8-4.8); Lymphocytes % 4.9 %; Mean Corpuscular HGB Conc 32.1 g/dL (30.0-36.0); Mean Corpuscular Volume 96.7 fl (80-94); Mean Platelet Volume 8.7 fL (7.4-10.4); Monocytes % 7.1 %; Neutrophils # 11.16 10^3/uL (1.8-7.7); Neutrophils % 83.1 %; Nucleated Red Blood Cells % 0 %; Platelet Count 353 10^3/cmm (130-400); Red Blood Count 3.61 10^6/uL (4.1-5.3); Red Cell Distribution Width 15.1 % (12.1-15.1); White Blood Count 13.4 10^3/uL (4.0-10.0)
[2021-05-04 05:51] LABS: Anion Gap 24.1 (5-19); Blood Urea Nitrogen 53 mg/dL (6-20); Calcium 8.8 mg/dL (8.5-10.5); Carbon Dioxide 23 mmol/L (22-29); Chloride 95 mmol/L (98-107); Glomerular Filtration Rate 5.5 mL/min (90-130); Glucose 71 mg/dL (65-115); Osmolality Calculated 295 mOsm/kg (285-295); Potassium 6.1 mmol/L (3.5-5.1); Sodium 136 mmol/L (136-145)
[2021-05-04] MEDS: aspirin 81 mg EC Tablet PO (06:55)
[2021-05-04] MEDS: atorvastatin 40 mg Tablet PO (06:55)
[2021-05-04] MEDS: nicardipine 20 MG/200 ML PREMIX 75 MG IV (09:03)
[2021-05-04] MEDS: carvedilol 25 mg Tablet 50 MG PO ×2 (09:06→18:27)
[2021-05-04] MEDS: isosorbide mononitrate ER 60 mg Tablet 120 MG PO (09:06)
[2021-05-04] MEDS: hyDRALAzine 50 mg Tablet 100 MG PO ×2 (09:08→14:28)
[2021-05-04] MEDS: cloNIDine 0.1 mg Tablet 0.3 MG PO ×3 (09:08→21:47)
--- NOTE | 2021-05-04 10:24 | P.PN_ITS ---
Subjective Subjective: Interval history: Drowsy today but otherwise comfortable. Breathing with the use of nasal O2. Dialysis went well yesterday although only a 2hr treatment. Slight improvement in edema and no other hypervolemic Sx. No uremic Sx. On Nicardipine infusion, pending oral meds Vitals/I&O/Wt Last Vital Signs Temp 98.2 F 05/03/21 19:54 Pulse 72 05/04/21 10:13 Resp 18 05/04/21 10:13 BP 111/56 05/04/21 09:38 Pulse Ox 95 05/04/21 10:13 05/03/21 05/04/21 05/04/21 22:59 06:59 14:59 Intake Total 50 / 50 32.5 / 82.5 211.25 / 211.25 Balance 50 / 50 32.5 / 82.5 211.25 / 211.25 Weight last 48 hrs Weight 95.254 kg Physical Exam Narrative: EXAM NARRATIVE: Constitutional: Awake, comfortable HEENT: Wet mucosa, no jvp, non icteric Lungs: Bilaterally clear without discernible wheeze or rales in all lung zones CVS: S1 S2, no murmurs Abdo: Soft, BS ok Ext 4: Minimal edema, peripheral perfusion with no cyanosis Neurological: Grossly non-focal Data : 05/04/21 04:50 05/04/21 04:50 A&P Assessment and plan (1) End stage chronic kidney disease: 1. ESRD Dialysis again today, 2K, UF 3L Continue Thursday, Thursday, Thursday schedule Dose medication for GFR less than 15 on dialysis 2. Hypertension Nicardipine infusion being tapered and UF will help to bring this down 3. Disposition Likely to be ok for DC later today if stable after dialysis Thank you for consultation, it is a pleasure to follow these cases with you Exam and interview performed with aid of bedside RN using telemedicine Time spent 20 min inc > 50% of time in face to face counseling Matthew Holley MD [facility] [phone] Status: Acute Attestations Medical Necessity Statement*: eval for ESRD Coding Level of Care Code Acute Classification Case Manager for Chg Fwd Diagnoses End stage chronic kidney disease N18.6
--- NOTE | 2021-05-04 10:30 | ECG_ITS ---
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 Measurements Intervals [place] Rate: 68 P: 34 TX: 194 QRS: 17 QRSD: 111 T: 63 QT: 424 QTc: 454 Interpretive Statements SINUS RHYTHM LEFT VENTRICULAR HYPERTROPHY AND ST-T CHANGE [VOLTAGE CRITERIA PLUS ST/T ABNORMALITY] Compared to ECG 05/03/2021 20:05:43 Sinus tachycardia no longer present Myocardial infarct finding no longer present ST (T wave) deviation still present Electronically Signed On 05-06-2021 8:56:26 CIVILIAN JAIL OFFICER by Qi Brown M.D. [id number]
[2021-05-04 11:02] LABS: Glucose Point of Care 135 mg/dL (70-110)
[2021-05-04] MEDS: NIFEdipine ER (24 hr) 30 mg Tablet 60 MG PO (11:03)
--- NOTE | 2021-05-04 11:05 | PC.NURSE ---
Pt o2 titrated down to 1L via NC currently. SpO2 at 94%
--- NOTE | 2021-05-04 13:01 | PM.PN ---
Subjective Subjective: Interval history: Patient was seen this morning he has received emergency dialysis overnight, he tells me he feels a lot better, eating breakfast, currently on 2 L, does not use oxygen at home, is actively wheezing, tells me that he stopped smoking roughly a month ago, has not received COVID vaccinations, has not received flu vaccinations, no fevers, has a nonproductive cough, he tells me he missed dialysis for the last few days due to the weather Vitals/I&O/Wt Last Vital Signs Temp 98.2 F 05/03/21 19:54 Pulse 72 05/04/21 10:13 Resp 18 05/04/21 10:13 BP 111/56 05/04/21 09:38 Pulse Ox 95 05/04/21 10:13 05/03/21 05/04/21 05/04/21 22:59 06:59 14:59 Intake Total 50 / 50 32.5 / 82.5 271.667 / 271.667 Balance 50 / 50 32.5 / 82.5 271.667 / 271.667 Weight last 48 hrs Weight 95.254 kg Physical Exam Const: COMMON NORMALS: no acute distress and patient oriented x3 Resp: COMMON NORMALS: normal respiratory effort, No retractions and No use of accessory muscles AUSCULTATION: wheezes Cardio: COMMON NORMALS: regular rate, regular rhythm, S1 normal heart sound present and S2 normal heart sound present RATE: regular rate RHYTHM: regular rhythm HEART SOUNDS: S1 normal heart sound present and S2 normal heart sound present GI: COMMON NORMALS: Normal to inspection, nondistended, normoactive bowel sounds present, Soft to palpation, non-tender and No hepatosplenomegaly present PALPATION: Yes Soft to palpation and Yes No hepatosplenomegaly present Extremity: COMMON NORMALS: no pedal edema Neuro: COMMON NORMALS: patient oriented x3 Psych: COMMON NORMALS: mental status grossly normal Data : 05/04/21 04:50 05/04/21 04:50 A&P Assessment and plan (1) Hypertension: Status: Acute (2) Hyperkalemia: Status: Acute (3) COPD (chronic obstructive pulmonary disease): Status: Acute (4) Atrial fibrillation: Status: Acute (5) ESRD on dialysis: Status: Acute (6) Volume overload: Status: Acute (7) Hypertensive emergency: Status: Acute (8) COPD exacerbation: Status: Acute (9) Diastolic CHF: Status: Acute Qualifiers: Heart failure chronicity: chronic Qualified Code(s): I50.32 - Chronic diastolic (congestive) heart failure (10) Pulmonary edema: Status: Acute (11) Abnormal ECG: Status: Acute (12) Acute respiratory failure with hypoxia: Status: Acute Plan Assessment #Hypertensive emergency #Shortness of breath secondary to volume overload secondary to missed dialysis #COPD #End-stage renal disease dialysis dependent Thursday #History of paroxysmal atrial fibrillation not on anticoagulation #Hyperkalemia #Leukocytosis Acute hypoxic respiratory failure -Requiring 2 L nasal cannula -Secondary to fluid overload from missed dialysis pulmonary edema -Underlying COPD exacerbation, wheezing on exam -Elevated leukocytosis, concerning for underlying possible pneumonia Plan -Will require CSU bed -We will receive another round of dialysis this afternoon -Budesonide, ipratropium, Solu-Medrol -Start azithromycin -Sputum cultures, blood cultures -Not vaccinated for COVID, will do flu and Covid testing -Monitor respiratory status -Full code -Heparin for DVT prophylaxis Hyperkalemia, no chest pain complaints, resistant to dialysis, and will give 10 units insulin, D50, calcium gluconate, as EKG shows ST depressions, will receive another round of dialysis this afternoon History of atrial fibrillation, status post ablation, currently in normal sinus rhythm, continue Coreg, anticoagulation was discontinued due to bleeding and anemia Hypertensive urgency, wean off Cardene drip, continue home clonidine, Coreg, Imdur, hydralazine, nifedipine COPD, as above, in exacerbation End-stage renal disease on dialysis, missed dialysis due to weather CODE STATUS: Full code Attestations Medical Necessity Statement*: Patient requires hospitalization for fluid overload, hyperkalemia, COPD exacerbation Coding Level of Care Code Acute 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
[2021-05-04 13:46] LABS: C Reactive Protein 151.2 mg/L (0.0-4.9)
[2021-05-04 13:53] LABS: Procalcitonin 2.81 ng/mL (0-0.5)
[2021-05-04] MEDS: acetaminophen 325 mg Tablet 650 MG PO (14:27)
[2021-05-04] MEDS: heparin 5,000 unit/mL INJ 1 mL 5000 UNIT SUBCUT ×2 (14:30→21:47)
[2021-05-04] MEDS: ipratropium-albuterol 3 mL Neb INHALATION ×2 (16:17→19:34)
[2021-05-04] MEDS: calcium gluconate 0.9% NaCL 1 GM/50 ML PREMIX IV ×2 (17:12→17:51)
[2021-05-04] MEDS: insulin regular-human 100 units/1 mL 10 UNIT IVP (17:13)
[2021-05-04] MEDS: dextrose 50% syringe 50 mL IVP (17:21)
--- NOTE | 2021-05-04 17:35 | PC.NURSE ---
Dialysis nurse reported 2850 of fluid removed. States she was unable to complete full treatment due to hypotensive event.
--- NOTE | 2021-05-04 17:38 | PC.HD ---
Pt dialyzed in ED, unable to weigh pt due to being on stretcher.
[2021-05-04] MEDS: azithromycin 500 MG in sodium chloride 0.9% 250 ML 250 MG IV (18:28)
[2021-05-04] MEDS: pantoprazole DR 40 mg Tablet PO (18:28)
--- NOTE | 2021-05-04 19:10 | PC.HD ---
Clarification - dialysis treatment was completed today, but the fluid removal goal of 3500 was not met due to hypotension after pt ate lunch.
[2021-05-04] MEDS: budesonide 0.5 mg/2 mL Neb INHALATION (19:34)
[2021-05-04 20:27] LABS: Influenza A by IFA Negative (Negative); Influenza B by IFA Negative (Negative); SARS Covid-2 Antigen Negative (Negative)
[2021-05-04 21:32] LABS: Adenovirus Not Detected (NOT DETECT); Chlamydia Pneumoniae Not Detected (NOT DETECT); Coronavirus 229E,HKU1,NL63,OC4 Not Detected (NOT DETECT); Human Metapneumovirus Not Detected (NOT DETECT); Human Rhinovirus/Enterovirus Not Detected (NOT DETECT); Influenza A Not Detected (NOT DETECT); Influenza A H1 Not Detected (NOT DETECT); Influenza A H1-2009 Not Detected (NOT DETECT); Influenza A H3 Not Detected (NOT DETECT); Influenza B Not Detected (NOT DETECT); Mycoplasma Pneumoniae Not Detected (NOT DETECT); Parainfluenza Virus Type 1 Not Detected (NOT DETECT); Parainfluenza Virus Type 2 Not Detected (NOT DETECT); Parainfluenza Virus Type 3 Not Detected (NOT DETECT); Parainfluenza Virus Type 4 Not Detected (NOT DETECT); Respiratory Syncytial Virus A Not Detected (NOT DETECT); Respiratory Syncytial Virus B Not Detected (NOT DETECT); SARS-COV-2 Not Detected (NOT DETECT)
--- NOTE | 2021-05-04 23:01 | PC.NURSE ---
Dr. Romero notified at 2139 for clarification of BP medication, BP was 141/72 and he was scheduled to get clonidine 0.3mg and 100mg of hydralazine, Dr. Romero said to give the clonidine but hold the hydralazine for now, recheck BP later and if it is high go ahead and give he hydralazine at that time.
[2021-05-05] VITALS (11 sets, daily range): BP systolic 137–164; BP diastolic 65–82; PULSE 68–87; RESP 16–19; TEMP 36.7–37.6; O2SAT 93–97
[2021-05-05] MEDS: hyDRALAzine 50 mg Tablet 100 MG PO ×3 (01:01→14:11)
--- NOTE | 2021-05-05 01:51 | PC.NURSE ---
This nurse gave patient his 2100 hydralazine at 0100 per orders of BP was high, BP was 159/82
[2021-05-05] MEDS: citalopram 20 mg Tablet 10 MG PO (05:38)
[2021-05-05] MEDS: atorvastatin 40 mg Tablet PO (05:38)
[2021-05-05] MEDS: aspirin 81 mg EC Tablet PO (05:38)
[2021-05-05] MEDS: NIFEdipine ER (24 hr) 30 mg Tablet 60 MG PO (05:39)
[2021-05-05 06:30] LABS: Glucose Point of Care 154 mg/dL (70-110)
[2021-05-05 06:58] LABS: Basophils % 0.2 %; Lymphocytes # 0.3 10^3/uL (0.8-4.8); Lymphocytes % 2.7 %; Mean Corpuscular HGB Conc 31.4 g/dL (30.0-36.0); Mean Corpuscular Hemoglobin 31.3 pg (28.0-34.0); Mean Corpuscular Volume 99.7 fl (80-94); Mean Platelet Volume 9.1 fL (7.4-10.4); Monocytes # 0.1 10^3/uL (0.2-0.9); Monocytes % 0.8 %; Neutrophils # 10.73 10^3/uL (1.8-7.7); Neutrophils % 95.9 %; Nucleated Red Blood Cells % 0 %; Platelet Count 342 10^3/cmm (130-400); Red Blood Count 3.51 10^6/uL (4.1-5.3); White Blood Count 11.2 10^3/uL (4.0-10.0)
[2021-05-05 07:40] LABS: Anion Gap 22.5 (5-19); Blood Urea Nitrogen 55 mg/dL (6-20); Calcium 9.6 mg/dL (8.5-10.5); Carbon Dioxide 22 mmol/L (22-29); Chloride 95 mmol/L (98-107); Glomerular Filtration Rate 6.8 mL/min (90-130); Glucose 168 mg/dL (65-115); Osmolality Calculated 297 mOsm/kg (285-295); Potassium 5.5 mmol/L (3.5-5.1); Sodium 134 mmol/L (136-145)
[2021-05-05] MEDS: ipratropium-albuterol 3 mL Neb INHALATION ×2 (07:59→11:04)
[2021-05-05] MEDS: budesonide 0.5 mg/2 mL Neb INHALATION (08:02)
--- NOTE | 2021-05-05 08:36 | PM.PN ---
Subjective Subjective: Interval history: Feels fine, no new issues. Somewhat disgruntled at the lack of taste of a renal diet. Dialysis went well yesterday. No Sx of hypervolemia High K noted today Vitals/I&O/Wt Last Vital Signs Temp 98.1 F 05/05/21 07:10 Pulse 85 05/05/21 08:11 Resp 16 05/05/21 08:11 BP 164/82 05/05/21 07:10 Pulse Ox 94 05/05/21 08:11 05/04/21 05/05/21 05/05/21 22:59 06:59 14:59 Intake Total 650 / 946.013 5545 / 2041.667 Output Total 3162 / 3162 Balance -2512 / -2240.333 1120 / -1120.333 Weight last 48 hrs Weight 94.461 kg Weight 0 g Weight 95.254 kg Physical Exam Narrative: EXAM NARRATIVE: Constitutional: Awake, comfortable HEENT: Wet mucosa, no jvp, non icteric Lungs: Bilaterally clear without discernible wheeze or rales in all lung zones CVS: S1 S2, no murmurs Abdo: Soft, BS ok Ext 4: Minimal edema, peripheral perfusion with no cyanosis Neurological: Grossly non-focal Data : 05/05/21 06:31 05/05/21 06:31 Micro: Microbiology 05/04/21 13:30 Blood Culture - Preliminary Blood SPECIMEN COLLECTED 05/04/21 12:54 Blood Culture - Preliminary Blood SPECIMEN COLLECTED A&P Assessment and plan (1) End stage chronic kidney disease: 1. ESRD Dialysis tomorrow 2K, UF 3L K still high and I suspect a significant element of recirculation Will give a dose of kayexalate today Continue Thursday, Thursday, Thursday schedule Dose medication for GFR less than 15 on dialysis 2. Hypertension Better controlled, still a little high prior to meds today, rec decreasing his dry weight as an outpatient 3. Disposition ok for DC today Thank you for consultation, it is a pleasure to follow these cases with you Exam and interview performed with aid of bedside RN using telemedicine Time spent 20 min inc > 50% of time in face to face counseling Matthew Holley MD [facility] [phone] Status: Acute Attestations Medical Necessity Statement*: Eval for ESRD Coding Level of Care Code Acute Tipping Machine Operator Automatic for Chg Fwd Diagnoses End stage chronic kidney disease N18.6
[2021-05-05] MEDS: pantoprazole DR 40 mg Tablet PO (08:57)
[2021-05-05] MEDS: isosorbide mononitrate ER 60 mg Tablet 120 MG PO (08:57)
[2021-05-05] MEDS: carvedilol 25 mg Tablet 50 MG PO (08:57)
[2021-05-05] MEDS: cloNIDine 0.1 mg Tablet 0.3 MG PO ×2 (08:57→14:11)
[2021-05-05] MEDS: acetaminophen 325 mg Tablet 650 MG PO (09:02)
[2021-05-05] MEDS: heparin 5,000 unit/mL INJ 1 mL 5000 UNIT SUBCUT (11:19)
--- NOTE | 2021-05-05 12:26 | P.DS_ITS ---
Discharge Providers Date of Admission: 05/03/21 22:26 Date of Discharge: May 05, 2021 Attending Provider at Admission: Donnie Romero MD Attending Provider at Discharge: Lionel Day MD Consults: Telemetry nephrology Primary Care Provider: Ricardo Stack MD Diagnoses at Discharge Discharge Diagnosis (1) End stage chronic kidney disease: Status: Acute (2) Hypertensive emergency: Status: Acute (3) Volume overload: Status: Acute (4) Hypertension: Status: Acute (5) Hyperkalemia: Status: Acute (6) Diastolic CHF: Status: Acute Qualifiers: Heart failure chronicity: chronic Qualified Code(s): I50.32 - Chronic diastolic (congestive) heart failure Reason for Visit Reason for Visit: SOB/ MISSED DIALYSIS Hospital Course Hospital Course History as per H&P: Leopoldo Schaefer is a 45 year old male with a past medical history of COPD, sleep apnea, end-stage renal disease on dialysis Thursday, Atrial fibrillation,Diastolic CHF, Resistant hypertension , came in with chief complaint of worsening shortness of breath going on for the last 2 days, he is complaining of orthopnea and PND, denies any chest pain , cough , fever ,? chills , nausea ,vomiting , abdominal pain.? He has missed dialysis on Thursday. Hospital course: Patient admitted to hospital for management of hypertensive urgency, congestive heart failure secondary to missed hemodialysis session. Nephrology was consulted. He underwent 2 extra sessions of hemodialysis. Patient continued to have mild difficulty in breathing. He was started on steroid taper for possible COPD exacerbation. Pneumonia was ruled out with negative consolidation on imaging. Currently he is on room air. His blood pressures are better controlled though still elevated. His blood pressures in the past have also been uncontrolled. He is been discharged hemodynamically stable condition advised to follow-up with his primary care provider within next 1 week, follow-up on next hemodialysis session on Thursday. He is advised to continue doing hemodialysis as before on Thursday, Thursday, Thursday. He has been cleared to discharge from nephrology. His antihypertensives have been adjusted. He is to take hydralazine 100 mg 3 times a day and nifedipine has been increased to 90 mg daily. He is going home on prednisone for 5 days along with doxycycline for next 3 days. Physical Exam Const: COMMON NORMALS: no acute distress and patient oriented x3 HENMT: COMMON NORMALS: normocephalic, atraumatic and external ears normal HEAD & SCALP: normocephalic and atraumatic EXTERNAL EAR: Yes external ears normal Eye: COMMON NORMALS: no scleral icterus GENERAL EYE: appearance normal, both eyes and all related structures Chest: COMMONS NORMALS: normal inspection of the chest and normal palpation of entire chest wall CHEST: Yes Symmetrical chest wall rise Resp: COMMON NORMALS: normal respiratory effort, No retractions, No use of accessory muscles and clear to auscultation bilaterally EFFORT & INSPECTION: Yes symmetric chest movement AUSCULTATION: clear to auscultation bilaterally and wheezes Cardio: COMMON NORMALS: regular rate, regular rhythm, S1 normal heart sound present, S2 normal heart sound present, No gallops present (Cardio), No murmurs present (Cardio), No rub (Cardio) and Peripheral pulses 2+ throughout RATE: regular rate RHYTHM: regular rhythm HEART SOUNDS: S1 normal heart sound present and S2 normal heart sound present PERIPHERAL PULSES: Peripheral puls es 2+ throughout GI: COMMON NORMALS: Normal to inspection, nondistended, normoactive bowel sounds present, Soft to palpation, non-tender, No hepatosplenomegaly present and no masses AUSCULTATION: Yes normoactive bowel sounds PALPATION: Yes Soft to palpation and Yes No hepatosplenomegaly present RECTAL EXAM: Yes deferred Extremity: COMMON NORMALS: no clubbing, cyanosis or edema and no pedal edema Neuro: COMMON NORMALS: patient oriented x3 Psych: COMMON NORMALS: mental status grossly normal Discharge Data Studies Completed and Pending Completed Studies During Hospitalization Category Date Time Status XR chest 1V portable [id number] Urgent Exams 05/03/21 19:28 Completed Pending at discharge Category Date Time Status Basic Metabolic Panel AM LABS Lab 05/06/21 04:00 Ordered Blood Culture Stat Lab 05/04/21 13:30 Results Complete Blood Count w/Auto AM LABS Lab 05/06/21 04:00 Ordered Sputum Culture and Gram Stain Stat Lab 05/04/21 09:46 Uncollected Radiology Impressions Chest X-Ray 05/03/21 19:28 IMPRESSION: Mild cardiomegaly and central pulmonary vascular congestion. Small volume bilateral pleural effusions. Hazy opacification adjacent to the pleural effusions, most likely corresponding atelectasis. Increased interstitial lung markings suggestive of interstitial pulmonary edema. Laboratory Results WBC 11.2 10^3/uL (4.0-10.0) H 05/05/21 06:31 RBC 3.51 10^6/uL (4.1-5.3) L 05/05/21 06:31 Hgb 11.0 g/dL (11.7-16.6) L 05/05/21 06:31 Hct 35.0 % (42.0-52.0) L 05/05/21 06:31 MCV 99.7 fl (80-94) H 05/05/21 06:31 MCH 31.3 pg (28.0-34.0) 05/05/21 06: MCHC 31.4 g/dL (30.0-36.0) 05/05/21 06: RDW 15.0 % (12.1-15.1) 05/05/21 06:31 Plt Count 342 10^3/cmm (130-400) 05/05/21 06:31 MPV 9.1 fL (7.4-10.4) 05/05/21 06:31 Neut % (Auto) 95.9 % 05/05/21 06:31 Lymph % (Auto) 2.7 % 05/05/21 06:31 [place] % (Auto) 0.8 % 05/05/21 06:31 Eos % (Auto) 0.0 % 05/05/21 06:31 Baso % (Auto) 0.2 % 05/05/21 06:31 Neut # (Auto) 10.73 10^3/uL (1.8-7.7) H 05/05/21 06:31 Lymph # (Auto) 0.3 10^3/uL (0.8-4.8) L 05/05/21 06:31 [place] # (Auto) 0.1 10^3/uL (0.2-0.9) L 05/05/21 06:31 Eos # (Auto) 0.0 10^3/uL (0.0-0.8) 05/05/21 06:31 Baso # (Auto) 0.0 10^3/uL (0.0-0.1) 05/05/21 06:31 Nucleated RBC % (auto) 0 % 05/05/21 06: Nucleated RBCs # 0.0 /100WBC 05/05/21 06:31 Sodium 134 mmol/L (136-145) L 05/05/21 06:31 Potassium 5.5 mmol/L (3.5-5.1) H 05/05/21 06:31 Chloride 95 mmol/L (98-107) L 05/05/21 06:31 Carbon Dioxide 22 mmol/L (22-29) 05/05/21 06:31 Anion Gap 22.5 (5-19) H 05/05/21 06:31 BUN 55 mg/dL (6-20) H 05/05/21 06:31 Creatinine 8.5 mg/dL (0.7-1.2) H* 05/05/21 06:31 GFR Calculation 6.8 mL/min (90-130) L 05/05/21 06:31 Glucose 168 mg/dL (65-115) H 05/05/21 06:31 POC Glucose 154 mg/dL (70-110) H 05/05/21 06:25 Calculated Osmolality 297 mOsm/kg (285-295) H 05/05/21 06:31 Calcium 9.6 mg/dL (8.5-10.5) 05/05/21 06:31 Total Bilirubin 0.3 mg/dL (0.15-1.2) 05/03/21 20:23 AST 15 U/L (0-40) 05/03/21 20:23 ALT 9 U/L (0-41) 05/03/21 20:23 Alkaline Phosphatase 92 IU/L (40-130) 05/03/21 20:23 C-Reactive Protein 151.2 mg/L (0.0-4.9) H 05/04/21 12:54 NT-Pro-B Natriuret Pep 43591 pg/mL (0-125) H 05/03/21 20:23 Total Protein 7.7 g/dL (6.6-8.7) 05/03/21 20:23 Albumin 4.0 g/dL (3.5-5.2) 05/03/21 20:23 Globulin 3.7 g/dL (1.3-4.6) 05/03/21 20:23 Procalcitonin 2.81 ng/mL (0-0.5) H 05/04/21 12:54 Coronavirus 229E (PCR) Not detected (NOT DETECT) 05/04/21 17:54 Influenza Type A Ag Negative (Negative) 05/04/21 17:54 Influenza Type B Ag Negative (Negative) 05/04/21 17:54 SARS-CoV-2 (PCR) Not detected (NOT DETECT) 05/04/21 17:54 SARS-CoV-2 Ag (Rapid) Negative (Negative) 05/04/21 17:54 Vitals Last Vital Signs Temp 98.1 F 05/05/21 07:10 Pulse 85 05/05/21 11:10 Resp 16 05/05/21 11:10 BP 164/82 05/05/21 08:57 Pulse Ox 96 05/05/21 11:10 Discharge Plan Discharge Patient Disposition: Home Condition: Stable Prescriptions: New prednisone 50 mg tablet 50 mg PO DAILY 5 Days Qty: 5 0RF doxycycline hyclate 100 mg tablet 100 mg PO BID 3 Days Qty: 6 0RF Continued Velphoro 500 mg tablet,chewable See Rx Instructions .ROUTE .COMPLEX 0RF Rx Instructions: 3 tabs po with meals and 2-3 tabs po with snacks hydroxyzine HCl 25 mg tablet 25 mg PO BID PRN (Reason: itching) 30 Days Qty: 60 0RF Yupelri 175 mcg/3 mL solution for nebulization 175 mcg inhalation DAILY 0RF RenaPlex-D 800 mcg-12.5 mg -2,000 unit tablet 1 tab PO DAILY 0RF (DME) Home oxygen See Rx Instructions .Route .MEDSUPPLY Qty: 1 0RF Rx Instructions: As directed (DME) nebulizers [facility] [place] See Rx Instructions .ROUTE .MEDSUPPLY Qty: 1 0RF Rx Instructions: As directed budesonide-formoterol [Symbicort] 160-4.5 mcg/actuation HFA aerosol inhaler 2 puff inhalation BID 30 Days Qty: 10.2 2RF albuterol sulfate [Ventolin HFA] 90 mcg/actuation HFA aerosol inhaler 2 inh inhalation Q4H PRN (Reason: shortness of breath or wheezing) Qty: 8.5 2RF furosemide 80 mg tablet 80 mg PO BID Qty: 180 0RF metolazone 5 mg tablet 5 mg PO .ON MON,WED,FRI 0RF pantoprazole 40 mg tablet,delayed release (DR/EC) 40 mg PO BID 0RF ondansetron HCl 8 mg tablet 8 mg PO Q8H PRN (Reason: Nausea And Vomiting) 0RF acetaminophen 500 mg Tablet 1,000 mg PO Q4H PRN (Reason: Pain) 0RF isosorbide mononitrate 120 mg tablet extended release 24 hr 120 mg PO DAILY 0RF budesonide 0.5 mg/2 mL suspension for nebulization 0.5 mg inhalation BID PRN (Reason: states only uses prn) 0RF Rx Instructions: Rinse mouth after treatment atorvastatin 40 mg tablet 40 mg PO QAM 0RF carvedilol [Coreg] 25 mg tablet See Rx Instructions .ROUTE .COMPLEX 0RF Rx Instructions: 50 mg orally twice a day except on dialysis days (thu,thu,thu) takes 50mg daily citalopram [Celexa] 10 mg tablet 10 mg PO QAM 0RF clonidine HCl 0.3 mg tablet See Rx Instructions .ROUTE .COMPLEX 0RF Rx Instructions: 0.3 mg orally three times a day except on dialysis days (thu,thu,thu) take 0.3mg twice a day aspirin 81 mg tablet,delayed release (DR/EC) 81 mg PO QAM 0RF Changed hydralazine 100 mg tablet 100 mg PO TID Qty: 0 0RF nifedipine 60 mg tablet extended release 24hr 90 mg PO QAM Qty: 0 0RF Discharge Orders: Discharge Order (Routine); Ordered 05/05/21 Ordered By: Lionle Day Referrals: Ricardo Stack MD [Primary Care Provider] - Discharge Diet: Usual diet Discharge Activity: Resume usual activity Patient Instructions: Opioid Safety Activity Restrictions/Additional Instructions: Follow-up with your primary care provider within next 1 week. Please continue doing your dialysis as scheduled on Thursday, Thursday, Thursday. Take hydralazine 600 mg 3 times a day. Dose of nifedipine has been increased to 90 mg. Take prednisone for 5 days. Take doxycycline for next 3 days. Discharge Attestations Time Spent in Discharge Care*: greater than 30 min Specific Discharge Activities: educating patient, discussing with pcp/other providers, discussing with social work case manager/social workers/dc planners, documenting/other paperwork and evaluating patient/reviewing data Status at Discharge: Cognitive status at discharge: cognitively intact , Behavioral status at discharge: cooperative , Functional status at discharge: independent ambulation , Overall status at discharge: patient is back to baseline Quality Metrics Clinical Quality Measures [ No reported AMI, CVA or VTE this stay] Coding Level of Care Code Acute Chg FW DC note Exam Comprehensive Diagnoses End stage chronic kidney disease N18.6 Hypertensive emergency I16.1 Volume overload E87.70 Hypertension I10 Hyperkalemia E87.5 Diastolic CHF I50.32 Heart failure chronicity: chronic
[2021-05-05] MEDS: sodium polystyrene sulfonate 15 gm/60 mL Btl PO (12:27)
[2021-05-05] MEDS: famotidine 20 mg Tablet PO (13:03)
== END 2021-05-05 15:57 | disposition home or self-care (01) | DRG 304 ==
LOC: ER 05-04 01:52 → ER IP 05-04 16:03 → MEDSURG 05-04 16:04
PROVIDERS: Emergency Medicine; Family Medicine; Admitting Provider Internal Medicine; Emergency Provider Emergency Medicine; PCP Radiology Diagnostic Radiology; Visit Provider Student in an Organized Health Care Education/Training Program
DX: I16.0 Hypertensive urgency (principal); N18.6 End stage renal disease; I50.32 Chronic diastolic (congestive) heart failure; J44.1 Chronic obstructive pulmonary disease with (acute) exacerbation; I13.2 Hypertensive heart and chronic kidney disease with heart failure and with stage 5 chronic kidney disease, or end stage renal disease; R06.03 Acute respiratory distress; I48.0 Paroxysmal atrial fibrillation; E87.5 Hyperkalemia; D72.829 Elevated white blood cell count, unspecified; F17.210 Nicotine dependence, cigarettes, uncomplicated; R94.31 Abnormal electrocardiogram [ECG] [EKG]; Z99.2 Dependence on renal dialysis; Z95.828 Presence of other vascular implants and grafts; Z79.82 Long term (current) use of aspirin
CPT/HCPCS: 36415; 36416; 71045; 80048; 80053; 82962; 83880; 84145; 85025; 86140; 87040; 87426; 87635; 87804; 93005; 94640; 94664; 96372; 99285; J0456; J0610; J1644; J1815; J2920; J7050; J7626; Q3014

== ENCOUNTER 2021-05-10 11:37 | Emergency (ER) | payer MEDICARE, MEDICAID, SELFPAY ==
[2021-05-10 11:40] VITALS: BP 147/102; PULSE 122; RESP 18; TEMP 36.6; O2SAT 94; BMI 28.7
--- NOTE | 2021-05-10 11:43 | ED_ITS ---
HPI - Seizure General: Chief Complaint: General Medical Stated Complaint: SEIZURE LIKE ACTIVITY Time Seen by Provider: 05/10/21 11:38 History of Present Illness: HPI Narrative: Mr. Schaefer is a 45-year-old gentleman with complex past medical history including hypertension, hyperlipidemia, COPD, paroxysmal A. fib, end-stage renal disease on hemodialysis Thursday who presents from dialysis for seizure-like episode. The patient himself does not have specific recollection of event however per EMS report after he completed his treatment the dialysis nurse witnessed a staring spell associated with loss of muscle tone holding a cup. The patient has some twitching at baseline which she says is unchanged. He denies recent changes in health. He was hospitalized from 05/03 through 05/05 with missed dialysis with acute respiratory failure with hypoxia, hypertensive emergency, and hyperkalemia with volume overload. He reports since that time he has not missed any dialysis. He denies other recent changes in health. When present symptom intensity was unclear. He reports similar episodes in the past. No other specific exacerbating or relieving factors identified. Onset (ago): minute(s) Description of Episode: other Witnessed: Yes - by Other Trauma: No Seizure History: No (Questionable spells and history) Possible Precipitating Event: other (Dialysis) Associated symptoms: Reports no associated symptoms Review of Systems General: Reports: 10 or more systems reviewed and unremarkable except in HPI and below PFSH ED PFSH: Medical History Acute respiratory failure with hypoxia Anemia Anxiety and depression Atrial fibrillation Atrial fibrillation Chest pain COPD (chronic obstructive pulmonary disease) Reports he is on 4 L of oxygen at home COPD (chronic obstructive pulmonary disease) CRF (chronic renal failure) Diastolic CHF Elevated troponin Encounter to establish care End stage chronic kidney disease ESRD on dialysis GERD (gastroesophageal reflux disease) Hypertension Hypertension Hypertension screen Hypoxia Insomnia Lower respiratory tract infection Resistant hypertension Sebaceous cyst Vitamin D deficiency Surgical History H/O circumcision H/O hand surgery right hand with hardware Presence of peritoneal dialysis catheter S/P dialysis catheter insertion (12/12/19) Removed on 04/04/2020 S/P hemodialysis catheter insertion Family History Other Adopted Denies family history of Anesthesia complication Bleeding disorder Social History Smoking and tobacco status: current every day smoker (1ppd X26 years) cigarettes [ Other cigarette details: On and off quitting and restarting] Alcohol intake: never Household members: significant other Marital status: Single Current occupational status: disabled History of recent travel: Yes Details: [place] Out of state: Yes Physical Exam Const: COMMON NORMALS: patient oriented x3 and alert GENERAL APPEARANCE: cooperative and well developed HENMT: COMMON NORMALS: normocephalic and atraumatic HEAD & SCALP: normoce phalic and atraumatic Eye: COMMON NORMALS: conjunctivae normal CONJUNCTIVA: Yes conjunctivae normal SCLERA: sclerae normal Neck/C-Spine: COMMON NORMALS: supple GENERAL: Yes trachea midline Resp: COMMON NORMALS: normal respiratory effort EFFORT & INSPECTION: Yes able to speak in complete sentences AUSCULTATION: diminished lung sounds Cardio: RATE: tachycardic RHYTHM: abnormal rhythm irregularly irregular OTHER: Normal peripheral perfusion, no significant peripheral edema GI: COMMON NORMALS: Soft to palpation PALPATION: Yes Soft to palpation and No Tenderness to palpation present (GI) PERCUSSION: normal to percussion Extremity: GENERAL: Yes normal exam except as noted and No edema Neuro: COMMON NORMALS: patient oriented x3, CN's II-XII intact bilaterally, moves all extremities, no focal motor deficits and no sensory deficits noted SENSORIUM/ORIENTATION: Yes alert and No Orientation impaired OTHER: The patient does have intermittent upper and lower extremity single twitches, at times his eyes rolled back associated with these however there is no obvious other neurologic abnormality and no associated postictal period. He reports this is normal for him. Psych: COMMON NORMALS: mental status grossly normal and Normal thought process present THOUGHT PROCESS: Normal thought process present Course ED course: - Patient was seen and evaluated by me at bedside - Patient placed on cardiac monitors, IV access obtained - Initial evaluation notable for no focal neurologic deficits, exam as above - Labs notable for mild leukocytosis. Metabolic panel with no acute need for repeat dialysis. Delta troponin is negative. - Imaging notable for no acute abnormality to explain the patient's seizure or neurologic event - Metoprolol given for rate control of atrial fibrillation. - Upon serial reexamination after treatment the patient was similar. He tolerated p.o. intake well. - Based on patient history, evaluation, labs, and imaging as interpreted the most likely cause of the patient's condition is syncopal episode versus seizure- like episode for which the patient reports a history of similar - The results of ED evaluation were discussed with the patient including hospital disposition options. I offered admission which she declined. I discussed prescriptions and/or symptomatic cares (if applicable) including appropriate and responsible use, followup plan, and return precautions. Additionally I did discuss the patient's current atrial fibrillation, he has had conversations with cardiology previously and has elected to not be on anticoagulation given history of bleeding. I discussed seizure precautions. The patient verbalized understanding and felt safe for discharge. - Patient discharged in satisfactory condition. Note: Click bubbles or prepopulated borrero in note writing are used for assistance with data collection and billing and are inherently more limited than narrative and other text portions of this note. Please use narrative for additional clinical history and defer to narrative/free test for any case of contradictory information. If information appears in only free text or click bubble it should be considered present or absent as reported. Please contact note typewriter assembler for clarifications of clinical information or contradictory information. MDM is a brief summary, contradictory or erroneous seeming information should be clarified and full note should be reviewed. Vital Signs: Vital signs: Vital Signs Temperature 97.8 F 05/10/21 11:40 Pulse Rate 122 H 05/10/21 11:40 Respiratory Rate 18 05/10/21 11:40 Blood Pressure 147/102 05/10/21 11:40 Pulse Oximetry 94 05/10/21 11:40 MDM - Seizure MDM Narrative Medical decision making narrative: 45-year-old gentleman with complex past medical history including end-stage renal disease presenting with abnormal neurologic event. Exact etiology of symptoms is unclear though the patient is adamant that he has had similar episodes in the past. Most likely etiology is more syncopal/fluid shift related to dialysis. No focal neurologic deficits on clinical exam and no recurrence of seizure-like episode. Patient is in atrial fibrillation with RVR though rate improved with metoprolol. Patient adamantly declines admission as he does not feel that admission would provide any benefit and he has had similar episodes in the past which have not been fully explained. Satisfactory for outpatient fadi marion and follow-up. Medical Records Attestation: I reviewed the patient's medical records. Lab Data Attestation: I reviewed the patient's lab results. Result diagrams: 05/10/21 12:05 05/10/21 12:05 Labs: Radiology Impressions Chest X-Ray 05/10/21 11:55 IMPRESSION: 1. Cardiomegaly. 2. Near complete resolution of the pulmonary edema since 05/03/2021. 3. Resolved or nearly resolved RIGHT pleural effusion. Head CT 05/10/21 11:55 IMPRESSION: 1. No acute intracranial hemorrhage or edema. 2. Extensive bilateral and symmetric chronic white matter ischemic disease. More than expected for the patient's age. Similar to 02/15/2021. 3. Extensive calcification in the distal LEFT vertebral artery and in the intracranial carotid arteries. Laboratory Results WBC 13.3 10^3/uL (4.0-10.0) H 05/10/21 12:05 RBC 4.11 10^6/uL (4.1-5.3) 05/10/21 12:05 Hgb 12.9 g/dL (11.7-16.6) 05/10/21 12:05 Hct 39.3 % (42.0-52.0) L 05/10/21 12:05 MCV 95.6 fl (80-94) H 05/10/21 12:05 MCH 31.4 pg (28.0-34.0) 05/10/21 12:05 MCHC 32.8 g/dL (30.0-36.0) 05/10/21 12:05 RDW 15.2 % (12.1-15.1) H 05/10/21 12:05 Plt Count 483 10^3/cmm (130-400) H 05/10/21 12:05 MPV 9.2 fL (7.4-10.4) 05/10/21 12:05 Neut % (Auto) 89.6 % 05/10/21 12:05 Lymph % (Auto) 6.9 % 05/10/21 12:05 [place]quois % (Auto) 2.5 % 05/10/21 12:05 Eos % (Auto) 0.1 % 05/10/21 12:05 Baso % (Auto) 0.1 % 05/10/21 12:05 Neut # (Auto) 11.88 10^3/uL (1.8-7.7) H 05/10/21 12:05 Lymph # (Auto) 0.9 10^3/uL (0.8-4.8) 05/10/21 12:05 [place] # (Auto) 0.3 10^3/uL (0.2-0.9) 05/10/21 12:05 Eos # (Auto) 0.0 10^3/uL (0.0-0.8) 05/10/21 12:05 Baso # (Auto) 0.0 10^3/uL (0.0-0.1) 05/10/21 12:05 Nucleated RBC % (auto) 0.2 % 05/10/21 12:05 Nucleated RBCs # 0.0 /100WBC 05/10/21 12:05 Sodium 132 mmol/L (136-145) L 05/10/21 12:05 Potassium 3.8 mmol/L (3.5-5.1) 05/10/21 12:05 Chloride 88 mmol/L (98-107) L 05/10/21 12:05 Carbon Dioxide 29 mmol/L (22-29) 05/10/21 12:05 Anion Gap 18.8 (5-19) 05/10/21 12:05 BUN 28 mg/dL (6-20) H 05/10/21 12:05 Creatinine 4.9 mg/dL (0.7-1.2) H 05/10/21 12:05 GFR Calculation 12.8 mL/min (90-130) L 05/10/21 12:05 Glucose 141 mg/dL (65-115) H 05/10/21 12:05 Calculated Osmolality 282 mOsm/kg (285-295) L 05/10/21 12:05 Calcium 9.7 mg/dL (8.5-10.5) 05/10/21 12:05 Phosphorus 3.0 mg/dL (2.5-4.5) 05/10/21 12:05 Magnesium 1.9 mg/dL (1.7-2.3) 05/10/21 12:05 Total Bilirubin 0.2 mg/dL (0.15-1.2) 05/10/21 12:05 AST 11 U/L (0-40) 05/10/21 12:05 ALT 10 U/L (0-41) 05/10/21 12:05 Alkaline Phosphatase 74 IU/L (40-130) 05/10/21 12:05 Troponin T Baseline 63 ng/L (0-15) H 05/10/21 12:05 Troponin T 120 Minute 61.47 ng/L (0-15) H 05/10/21 15:13 Delta Troponin T -1.53 ABS# (0-10) L 05/10/21 15:13 NT-Pro-B Natriuret Pep > 57935 pg/mL (0-125) H 05/10/21 12:05 Total Protein 7.9 g/dL (6.6-8.7) 05/10/21 12:05 Albumin 4.1 g/dL (3.5-5.2) 05/10/21 12:05 Globulin 3.8 g/dL (1.3-4.6) 05/10/21 12:05 EKG Data EKG 1: Attestation: I personally reviewed and interpreted this EKG as follows: EKG interpretation date: 05/10/21 EKG interpretation time: 12:01 Interpretation: Twelve-lead EKG shows an irregular rhythm at a rate of 108. No NE interval, QRS duration 106, QTc 353. Normal axis. Interpretation: Atrial fibrillation with rapid ventricular response. Nonspecific ST segment abnormalities. Discharge Plan Discharge Patient Disposition: Home Clinical Impression: Seizure-like activity, Leukocytosis, ESRD on dialysis, Atrial fibrillation Condition: Stable Prescriptions: No Action Velphoro 500 mg tablet,chewable See Rx Instructions .ROUTE .COMPLEX 0RF Rx Instructions: 3 tabs po with meals and 2-3 tabs po with snacks hydroxyzine HCl 25 mg tablet 25 mg PO BID PRN (Reason: itching) 30 Days Qty: 60 0RF Yupelri 175 mcg/3 mL solution for nebulization 175 mcg inhalation DAILY 0RF RenaPlex-D 800 mcg-12.5 mg -2,000 unit tablet 1 tab PO DAILY 0RF (DME) Home oxygen See Rx Instructions .Route .MEDSUPPLY Qty: 1 0RF Rx Instructions: As directed (DME) nebulizers Misc See Rx Instructions .ROUTE .MEDSUPPLY Qty: 1 0RF Rx Instructions: As directed budesonide-formoterol [Symbicort] 160-4.5 mcg/actuation HFA aerosol inhaler 2 puff inhalation BID 30 Days Qty: 10.2 2RF albuterol sulfate [Ventolin HFA] 90 mcg/actuation HFA aerosol inhaler 2 inh inhalation Q4H PRN (Reason: shortness of breath or wheezing) Qty: 8.5 2RF atorvastatin 40 mg tablet 40 mg PO QAM Qty: 90 1RF carvedilol [Coreg] 25 mg tablet See Rx Instructions .ROUTE .COMPLEX Qty: 180 1RF Rx Instructions: 50 mg orally twice a day except on dialysis days (thu,thu,thu) takes 50mg daily furosemide 80 mg tablet 80 mg PO BID Qty: 180 1RF hydralazine 100 mg tablet 100 mg PO TID Qty: 270 1RF isosorbide mononitrate 120 mg tablet extended release 24 hr 120 mg PO DAILY Qty: 90 1RF nifedipine 60 mg tablet extended release 24hr 90 mg PO QAM Qty: 135 1RF pantoprazole 40 mg tablet,delayed release (DR/EC) 40 mg PO BID Qty: 180 1RF metolazone 5 mg tablet 5 mg PO .ON THU,THU,FRI 0RF ondansetron HCl 8 mg tablet 8 mg PO Q8H PRN (Reason: Nausea And Vomiting) 0RF acetaminophen 500 mg Tablet 1,000 mg PO Q4H PRN (Reason: Pain) 0RF budesonide 0.5 mg/2 mL suspension for nebulization 0.5 mg inhalation BID PRN (Reason: states only uses prn) 0RF Rx Instructions: Rinse mouth after treatment citalopram [Celexa] 10 mg tablet 10 mg PO QAM 0RF clonidine HCl 0.3 mg tablet See Rx Instructions .ROUTE .COMPLEX 0RF Rx Instructions: 0.3 mg orally three times a day except on dialysis days (thu,thu,thu) take 0.3mg twice a day aspirin 81 mg tablet,delayed release (DR/EC) 81 mg PO QAM 0RF Discharge Orders: Discharge ED (Routine); Ordered 05/10/21 Ordered By: Timothy Ivan Referrals: Ricardo Stack MD [Primary Care Provider] - Discharge Diet: Usual diet Discharge Activity: Resume usual activity Patient Instructions: A-fib (Atrial Fibrillation) (ED), Seizures Activity Restrictions/Additional Instructions: Thank you for visiting the emergency department. You were seen and evaluated for a seizure-like episode. The exact cause of this is unclear. You were found to be in atrial fibrillation with improved heart rate after medications. Please continue to take your home medications. Please follow-up with your primary care provider and label press operator. Please return to the emergency department for worsening symptoms, recurrent seizure, any neurologic symptoms, or anything else that you are concerned about and feel needs emergency department evaluation. I am unsure if this was a seizure. Typical seizure precautions include no driving for 6 months until seizure-free, do not swim or bathe in bathtub alone, do not cook over open flame or be around fire, or anything else that would put you at risk if you were to have another event. Coding Level of Care Code ED Computer Salesperson Retail for Shilpa Fwjose manuel Exam Comprehensive
--- NOTE | 2021-05-10 11:46 | ECG_ITS ---
[facility] Test Date: 2021-05-10 Pat Name: Leopoldo Schaefer Department: Room: Gender: Male Top Precipitator Operator: : 1975 Requested By: Timothy Ivan Order Number: [id number] Roderick MD: GARRETT JIMENEZ Measurements Intervals [place] Rate: 108 P: MT: QRS: 11 QRSD: 106 T: 123 QT: 353 QTc: 473 Interpretive Statements ATRIAL FIBRILLATION WITH RAPID VENTRICULAR RESPONSE POSSIBLE LEFT VENTRICULAR HYPERTROPHY [VOLTAGE CRITERIA PLUS LAE OR QRS WIDENING] MODERATE T-WAVE ABNORMALITY, CONSIDER LATERAL ISCHEMIA [-0.1+ mV T-WAVE IN I/aVL/V5/V6] Compared to ECG 05/04/2021 10:55:42 T-wave abnormality now present Possible ischemia now present Sinus rhythm no longer present ST (T wave) deviation no longer present Electronically Signed On 05-10-2021 22:54:46 SHREDDED FILLER MACHINE WRAPPER LAYER by GARRETT JIMENEZ [email or web address]
--- NOTE | 2021-05-10 11:55 | XR_ITS ---
WS: [id number] PORTABLE CHEST HISTORY: afib rvr COMPARISON: 05/03/2021 LEFT subclavian dialysis catheter. The tip is projected over the RIGHT heart. No change in position. Improved pulmonary venous congestion since the prior study. RIGHT pleural effusion has probably resol lexi. The costophrenic angle was not included in its entirety. Cardiac size: Mildly enlarged cardiac silhouette. Mediastinum/Aorta: Mild atherosclerosis aorta. Severe degenerative changes at the LEFT glenohumeral joint. XR/XR chest 1V portable [id number] IMPRESSION: 1. Cardiomegaly. 2. Near complete resolution of the pulmonary edema since 05/03/2021. 3. Resolved or nearly resolved RIGHT pleural effusion.
--- NOTE | 2021-05-10 11:55 | CT_ITS ---
WS: [id number] CT HEAD NONCONTRAST HISTORY: seizure like episode TECHNIQUE: Contiguous axial imaging performed through the brain in 2.5 mm imaging. Bone and soft tiss ue windows. Sagittal and coronal reformats reviewed. All CT scans at [facility] use at least one of these dose optimization techniques: automated exposure control; mA and/or kV adjustment per pa tient size (includes targeted exams where dose is matched to clinical indication); or iterative recon struction. DLP: 808.35 mGy.cm COMPARISON: 02/15/2021 No acute intracranial hemorrhage, midline shift or mass effect. Very mild atrophy. There is extensive low-attenuation throughout the white matter. Decreased attenuat ion is symmetric bilaterally and extends from the vertex around the ventricles. Small lacunar infarct in the LEFT caudate head and in the LEFT lentiform nucleus. These changes are more advanced than exp ected for the patient's age but similar to the prior examination. Tiny lacunar infarct also noted wit hin the RIGHT thalamus. Ventricles: Normal size with no hydrocephalus. There is extensive calcification within the intracranial carotid arteries. There is also heavy calcif ication in the distal LEFT vertebral artery. Paranasal sinuses: As visualized are clear. Mastoid air cells: Well pneumatized. Calvarium and scalp: Skull is intact with no soft tissue edema or swelling. CT/CT head wo con* [id number] IMPRESSION: 1. No acute intracranial hemorrhage or edema. 2. Extensive bilateral and symmetric chronic white matter ischemic disease. Mo re than expected for the patient's age. Similar to 02/15/2021. 3. Extensive calcification in the distal LEFT vertebral artery and in the intr acranial carotid arteries.
[2021-05-10 12:13] LABS: Basophils % 0.1 %; Eosinophils % 0.1 %; Hematocrit 39.3 % (42.0-52.0); Hemoglobin 12.9 g/dL (11.7-16.6); Lymphocytes # 0.9 10^3/uL (0.8-4.8); Lymphocytes % 6.9 %; Mean Corpuscular HGB Conc 32.8 g/dL (30.0-36.0); Mean Corpuscular Hemoglobin 31.4 pg (28.0-34.0); Mean Corpuscular Volume 95.6 fl (80-94); Mean Platelet Volume 9.2 fL (7.4-10.4); Monocytes # 0.3 10^3/uL (0.2-0.9); Monocytes % 2.5 %; Neutrophils # 11.88 10^3/uL (1.8-7.7); Neutrophils % 89.6 %; Nucleated Red Blood Cells % 0.2 %; Platelet Count 483 10^3/cmm (130-400); Red Blood Count 4.11 10^6/uL (4.1-5.3); Red Cell Distribution Width 15.2 % (12.1-15.1); White Blood Count 13.3 10^3/uL (4.0-10.0)
[2021-05-10 12:39] LABS: Troponin(5th) Baseline 63 ng/L (0-15)
[2021-05-10 12:47] LABS: Alanine Aminotransferase 10 U/L (0-41); Albumin Level 4.1 g/dL (3.5-5.2); Alkaline Phosphatase 74 IU/L (40-130); Anion Gap 18.8 (5-19); Aspartate Amino Transferase 11 U/L (0-40); Blood Urea Nitrogen 28 mg/dL (6-20); Calcium 9.7 mg/dL (8.5-10.5); Carbon Dioxide 29 mmol/L (22-29); Chloride 88 mmol/L (98-107); Globulin 3.8 g/dL (1.3-4.6); Glomerular Filtration Rate 12.8 mL/min (90-130); Glucose 141 mg/dL (65-115); Magnesium 1.9 mg/dL (1.7-2.3); Osmolality Calculated 282 mOsm/kg (285-295); Potassium 3.8 mmol/L (3.5-5.1); Sodium 132 mmol/L (136-145); Total Bilirubin 0.2 mg/dL (0.15-1.2); Total Protein 7.9 g/dL (6.6-8.7)
[2021-05-10 13:28] LABS: NT Pro B Type Natriuretic Pept > 70000 pg/mL (0-125)
[2021-05-10] MEDS: sodium chloride 0.9% 500 ML IV (14:25)
[2021-05-10] MEDS: metoprolol tartrate 1 mg/1 mL SDV 5 mL 5 MG IVP ×2 (14:27→16:45)
[2021-05-10 15:53] LABS: Troponin 5 2HR 61.47 ng/L (0-15)
[2021-05-10 15:56] LABS: Troponin 5 2HR Delta -1.53 ABS# (0-10)
== END 2021-05-10 16:55 | disposition home or self-care (01) ==
PROVIDERS: Emergency Provider Emergency Medicine; PCP Radiology Diagnostic Radiology
DX: R56.9 Unspecified convulsions (principal); D72.829 Elevated white blood cell count, unspecified; I48.91 Unspecified atrial fibrillation; I13.2 Hypertensive heart and chronic kidney disease with heart failure and with stage 5 chronic kidney disease, or end stage renal disease; N18.6 End stage renal disease; I50.30 Unspecified diastolic (congestive) heart failure; Z99.2 Dependence on renal dialysis; J44.9 Chronic obstructive pulmonary disease, unspecified; F17.210 Nicotine dependence, cigarettes, uncomplicated; Z79.82 Long term (current) use of aspirin; Z99.81 Dependence on supplemental oxygen
CPT/HCPCS: 70450; 71045; 80053; 83735; 83880; 84100; 84484; 85025; 93005; 96361; 96374; 96376; 99283; J3490; J7040

== ENCOUNTER 2021-05-25 05:46 | Inpatient (IN) | payer MEDICARE, MEDICAID, SELFPAY ==
[2021-05-25] VITALS (20 sets, daily range): BP systolic 136–196; BP diastolic 83–114; PULSE 75–150; RESP 18–26; TEMP 36.5–37.2; O2SAT 91–96; BMI 29.5
--- NOTE | 2021-05-25 05:49 | XRR_ITS ---
PROCEDURE INFORMATION: Exam: XR Chest Exam date and time: 05/25/2021 5:49 AM Age: 46 years old Clinical indication: Shortness of breath; Additional info: SOB TECHNIQUE: Imaging protocol: XR of the chest. Views: 1 view. COMPARISON: CR XR chest 1V portable [id number] 05/10/2021 12:04 PM FINDINGS: Tubes, catheters and devices: A dialysis catheter is present with tip projecting in the SVC. Lungs: There is patchy right basilar consolidation and atelectasis. Pleural spaces: There is a small right pleural effusion. No pneumothorax. Heart/Mediastinum: The cardiac silhouette is enlarged but unchanged. Bones/joints: Unremarkable. XR/XR chest 1V portable [id number] IMPRESSION: There is patchy right basilar consolidation and atelectasis with small effusion. This could be due to volume overload and right basilar edema. A superimposed pneumonia is not excluded.
--- NOTE | 2021-05-25 06:05 | ECG_ITS ---
[facility] Test Date: 2021-05-25 Pat Name: Leopoldo Schaefer Department: Room: Gender: Male Residential Supervisor: : 1975 Requested By: Wil Castro Order Number: [id number] Reading MD: Willard Vigil M.D. Measurements Intervals [place] Rate: 150 P: MO: QRS: 20 QRSD: 94 T: 98 QT: 272 QTc: 430 Interpretive Statements ATRIAL FLUTTER/TACHYCARDIA WITH RAPID VENTRICULAR RESPONSE MODERATE T-WAVE ABNORMALITY, CONSIDER LATERAL ISCHEMIA [-0.1+ mV T-WAVE IN I/aVL/V5/V6] CRITICAL TEST RESULT Compared to ECG 05/10/2021 11:53:42 Atrial fibrillation no longer present T-wave abnormality still present Possible ischemia still present Electronically Signed On 05-25-2021 7:00:05 MANAGER STRATEGY by Willard Vigil M.D. [id number]
[2021-05-25 06:12] LABS: ABG PCO2 31.3 mmHg (35-45); Arterial Blood Gas Hematocrit 32.6 % (42-52); Base Excess ABG 8.2 mmol/L (-2.0-2.0); Blood Gas Allen Test Pos; Blood Gas LPM 1.5 %; Blood Gas Sample Site Radial, right; Blood Gas Sample Type Arterial; Carboxyhemoglobin 1.9 %THgb (0.4-20.1); HCO3 ABG 30.1 mmol/L (22-26); HGB O2 Sat 93.3 % (95-100); Methemoglobin 0.6 % (0.4-1.5); Oxygen Device NC; PO2 ABG 64.2 mmHg (80.0-100.0); Total Hemoglobin 10.6 g/dL (14-18)
[2021-05-25 06:14] LABS: ABG PH Result 7.59 (7.35-7.45)
[2021-05-25 06:15] LABS: Basophils # 0.1 10^3/uL (0.0-0.1); Basophils % 0.5 %; Eosinophils # 0.1 10^3/uL (0.0-0.8); Eosinophils % 0.5 %; Hematocrit 34.2 % (42.0-52.0); Hemoglobin 10.9 g/dL (11.7-16.6); Lymphocytes % 6.7 %; Mean Corpuscular HGB Conc 31.9 g/dL (30.0-36.0); Mean Corpuscular Hemoglobin 30.8 pg (28.0-34.0); Mean Corpuscular Volume 96.6 fl (80-94); Mean Platelet Volume 8.8 fL (7.4-10.4); Monocytes % 6.5 %; Neutrophils # 12.68 10^3/uL (1.8-7.7); Neutrophils % 85.4 %; Nucleated Red Blood Cells % 0 %; Platelet Count 360 10^3/cmm (130-400); Red Blood Count 3.54 10^6/uL (4.1-5.3); Red Cell Distribution Width 15.2 % (12.1-15.1); White Blood Count 14.9 10^3/uL (4.0-10.0)
[2021-05-25 06:28] LABS: Lactic Sepsis W/Reflex 1.1 mmol/L (0.5-2.2)
[2021-05-25 06:31] LABS: Troponin(5th) Baseline 89 ng/L (0-15)
[2021-05-25 06:40] LABS: Alanine Aminotransferase 9 U/L (0-41); Albumin Level 4.2 g/dL (3.5-5.2); Alkaline Phosphatase 96 IU/L (40-130); Anion Gap 24.2 (5-19); Aspartate Amino Transferase 10 U/L (0-40); Blood Urea Nitrogen 53 mg/dL (6-20); Calcium 9.9 mg/dL (8.5-10.5); Carbon Dioxide 27 mmol/L (22-29); Chloride 88 mmol/L (98-107); Creatine Phosphokinase 20 U/L (39-308); Globulin 2.9 g/dL (1.3-4.6); Glomerular Filtration Rate 4.7 mL/min (90-130); Glucose 93 mg/dL (65-115); Osmolality Calculated 292 mOsm/kg (285-295); Potassium 5.2 mmol/L (3.5-5.1); Sodium 134 mmol/L (136-145); Total Bilirubin 0.4 mg/dL (0.15-1.2); Total Protein 7.1 g/dL (6.6-8.7)
--- NOTE | 2021-05-25 06:49 | W.ED.ARRPALP ---
HPI - Arrhythmia/Palpitations General: Chief Complaint: Shortness of Breath/Dyspnea Stated Complaint: sob Time Seen by Provider: 05/25/21 05:58 History of Present Illness: 46-year-old male presents to the emergency room with complaints of rapid heart rate and shortness of breath difficulty breathing and cough that began for last night. He is noticed increasing heart rate he had turned his oxygen up normally he only uses oxygen at 2 L/min of ROS an as-needed basis he is feeling more short of breath he had a turned up to 4 L when he arrived here he is in respiratory alkalosis we titrated it down his sats remained at 93% and the A. fib flutter at 1-1/2 L. Patient denies any fever sweats or chills any nausea vomiting or diarrhea is not previously had COVID. He has had a moderately productive cough. Patient is end-stage renal disease has a tunneled dialysis catheter in left subclavian he was scheduled for dialysis yesterday but was canceled because of weather related issues he was rescheduled for 1030 this morning. He denies any chest pain at this time. MD complaint: rapid heart beat, heart racing , palpitations and irregular heart beat Onset (ago): hour(s) Duration: constant Severity: moderate Context: occurred during rest Arrhythmia history: atrial fibrillation Associated symptoms: Reports anxiety, cough, diaphoresis and short of breath; Deny muscle cramps, nausea, paresthesias, pre-syncope, sense of impending doom, syncope or vomiting Review of Systems Const: Reports: diaphoresis ENMT: Denies: throat pain, ear or mastoid pain, nasal discharge or nasal congestion Card: Denies: syncope or pre-syncope Resp: Denies: dyspnea, productive cough or non-productive cough GI: Denies: nausea or vomiting : Denies: flank pain, dysuria, urinary frequency or urinary urgency Musc: Denies: muscle cramps Skin/Breast: Denies: rash or pruritus Psych: Reports: anxiety PFSH ED PFSH: Medical History Acute respiratory failure with hypoxia Anemia Anxiety and depression Atrial fibrillation Atrial fibrillation Chest pain COPD (chronic obstructive pulmonary disease) Reports he is on 4 L of oxygen at home COPD (chronic obstructive pulmonary disease) CRF (chronic renal failure) Diastolic CHF Elevated troponin Encounter to establish care End stage chronic kidney disease ESRD on dialysis GERD (gastroesophageal reflux disease) Hypertension Hypertension Hypertension screen Hypoxia Insomnia Lower respiratory tract infection Resistant hypertension Sebaceous cyst Vitamin D deficiency Surgical History H/O circumcision H/O hand surgery right hand with hardware Presence of peritoneal dialysis catheter S/P dialysis catheter insertion (12/12/19) Removed on 04/04/2020 S/P hemodialysis catheter insertion Family History Other Adopted Denies family history of Anesthesia complication Bleeding disorder Social History Smoking and tobacco status: current every day smoker (1ppd X26 years) cigarettes [ Other cigarette details: On and off quitting and restarting] Alcohol intake: never Household members: significant other Marital status: Single Current occupational status: disabled History of recent travel: Yes Details: [place] Out of state: Yes Physical Exam Const: COMMON NORMALS: no acute distress GENERAL APPEARANCE: cooperative and comfortable ORIENTATION/CONSCIOUSNESS: Yes awake, Yes oriented to person, Yes oriented to place and Yes oriented to time HENMT: COMMON NORMALS: normocephalic, atraumatic and hearing grossly normal bilaterally HEAD & SCALP: normocephalic and atraumatic Neck/C-Spine: COMMON NORMALS: no JVD Resp: COMMON NORMALS: normal respiratory effort, No retractions, No use of accessory muscles and clear to auscultation bilaterally AUSCULTATION: clear to auscultation bilaterally Cardio: COMMON NORMALS: no JVD and No murmurs present (Cardio) RATE: tachycardic RHYTHM: abnormal rhythm irregularly irregular GI: COMMON NORMALS: Soft to palpation and No hepatosplenomegaly present AUSCULTATION: Yes normoactive bowel sounds PALPATION: Yes Soft to palpation, No Tenderness to palpation present (GI), No Guarding due to palpation present (GI) and Yes No hepatosplenomegaly present Extremity: COMMON NORMALS: normal to inspection, capillary refill normal, no clubbing, cyanosis or edema, no calf tenderness and no pedal edema Neuro: SENSORIUM/ORIENTATION: Yes oriented to person, Yes oriented to place and Yes oriented to time Skin: COMMON NORMALS: no rashes or lesions noted GENERAL SKIN EXAM: no rashes or lesions noted Course Vital Signs: Vital signs: Vital Signs Temperature 98.3 F 05/25/21 05:47 Pulse Rate 107 H 05/25/21 07:23 Respiratory Rate 18 05/25/21 07:23 Blood Pressure 173/99 05/25/21 07:23 Pulse Oximetry 94 05/25/21 07:23 MDM - Arrhythmia/Palpitations Medical Decision Making Patient has A. fib flutter with a right lower lobe pneumonia. We will start him on Cardizem initial bolus given drip was not available so patient was rebolus and drip was started is being titrated up he is feeling better we are able to titrate his oxygen down to 1-1/2 L. He has some mild hyperkalemia given calcium chloride and Kayexalate for this consult nephrology for dialysis which she is due for today discussed with Dr. Gongora will admit for A. fib flutter with for rate control as well as for treating his pneumonia. Medical Records I reviewed the patient's medical records. Lab Data I reviewed the patient's lab results. : 05/25/21 06:00 05/25/21 06:00 Laboratory Results WBC 14.9 10^3/uL (4.0-10.0) H 05/25/21 06:00 RBC 3.54 10^6/uL (4.1-5.3) L 05/25/21 06:00 Hgb 10.9 g/dL (11.7-16.6) L 05/25/21 06:00 Hct 34.2 % (42.0-52.0) L 05/25/21 06:00 MCV 96.6 fl (80-94) H 05/25/21 06:00 MCH 30.8 pg (28.0-34.0) 05/25/21 06:00 MCHC 31.9 g/dL (30.0-36.0) 05/25/21 06:00 RDW 15.2 % (12.1-15.1) H 05/25/21 06:00 Plt Count 360 10^3/cmm (130-400) 05/25/21 06:00 MPV 8.8 fL (7.4-10.4) 05/25/21 06:00 Neut % (Auto) 85.4 % 05/25/21 06:00 Lymph % (Auto) 6.7 % 05/25/21 06:00 Haakon % (Auto) 6.5 % 05/25/21 06:00 Eos % (Auto) 0.5 % 05/25/21 06:00 Baso % (Auto) 0.5 % 05/25/21 06:00 Neut # (Auto) 12.68 10^3/uL (1.8-7.7) H 05/25/21 06:00 Lymph # (Auto) 1.0 10^3/uL (0.8-4.8) 05/25/21 06:00 Haakon # (Auto) 1.0 10^3/uL (0.2-0.9) H 05/25/21 06:00 Eos # (Auto) 0.1 10^3/uL (0.0-0.8) 05/25/21 06:00 Baso # (Auto) 0.1 10^3/uL (0.0-0.1) 05/25/21 06:00 Nucleated RBC % (auto) 0 % 05/25/21 06:00 Nucleated RBCs # 0.0 /100WBC 05/25/21 06:00 Specimen Type Arterial 05/25/21 06:00 Sample Site Radial, right 05/25/21 06:00 ABG pH 7.59 (7.35-7.45) H* 05/25/21 06:00 ABG pCO2 31.3 mmHg (35-45) L 05/25/21 06:00 ABG pO2 64.2 mmHg (80.0-100.0) L 05/25/21 06:00 ABG HCO3 30.1 mmol/L (22-26) H 05/25/21 06:00 ABG Base Excess 8.2 mmol/L (-2.0-2.0) H 05/25/21 06:00 Shantanu Test Pos 05/25/21 06:00 Hematocrit 32.6 % (42-52) L 05/25/21 06:00 Hgb O2 Saturation 93.3 % (95-100) L 05/25/21 06:00 Carboxyhemoglobin 1.9 %THgb (0.4-20.1) 05/25/21 06:00 Methemoglobin 0.6 % (0.4-1.5) 05/25/21 06:00 Total Hemoglobin 10.6 g/dL (14-18) L 05/25/21 06:00 O2 Delivery Device Nc 05/25/21 06:00 O2 Liters/Min 1.5 % 05/25/21 06:00 Receivables Specialist ID Tania 05/25/21 06:00 Sodium 134 mmol/L (136-145) L 05/25/21 06:00 Potassium 5.2 mmol/L (3.5-5.1) H 05/25/21 06:00 Chloride 88 mmol/L (98-107) L 05/25/21 06:00 Carbon Dioxide 27 mmol/L (22-29) 05/25/21 06:00 Anion Gap 24.2 (5-19) H 05/25/21 06:00 BUN 53 mg/dL (6-20) H 05/25/21 06:00 Creatinine 11.6 mg/dL (0.7-1.2) H* 05/25/21 06:00 GFR Calculation 4.7 mL/min (90-130) L 05/25/21 06:00 Glucose 93 mg/dL (65-115) 05/25/21 06:00 Calculated Osmolality 292 mOsm/kg (285-295) 05/25/21 06:00 Lactic Acid 1.1 mmol/L (0.5-2.2) 05/25/21 06:00 Calcium 9.9 mg/dL (8.5-10.5) 05/25/21 06:00 Total Bilirubin 0.4 mg/dL (0.15-1.2) 05/25/21 06:00 AST 10 U/L (0-40) 05/25/21 06:00 ALT 9 U/L (0-41) 05/25/21 06:00 Alkaline Phosphatase 96 IU/L (40-130) 05/25/21 06:00 Creatine Kinase 20 U/L (39-308) L 05/25/21 06:00 Troponin T Baseline 89 ng/L (0-15) H 05/25/21 06:00 NT-Pro-B Natriuret Pep > 34943 pg/mL (0-125) H 05/25/21 06:00 Total Protein 7.1 g/dL (6.6-8.7) 05/25/21 06:00 Albumin 4.2 g/dL (3.5-5.2) 05/25/21 06:00 Globulin 2.9 g/dL (1.3-4.6) 05/25/21 06:00 Discharge Plan Discharge Patient Disposition: Admitted As Inpatient Clinical Impression: Atrial fibrillation/flutter, Hypertensive emergency, Hyperkalemia, Volume overload, ESRD on dialysis, Pneumonia, Acute hyperkalemia Condition: Stable Prescriptions: No Action Velphoro 500 mg tablet,chewable See Rx Instructions .ROUTE .COMPLEX 0RF Rx Instructions: 3 tabs po with meals and 2-3 tabs po with snacks hydroxyzine HCl 25 mg tablet 25 mg PO BID PRN (Reason: itching) 30 Days Qty: 60 0RF Yupelri 175 mcg/3 mL solution for nebulization 175 mcg inhalation DAILY 0RF RenaPlex-D 800 mcg-12.5 mg -2,000 unit tablet 1 tab PO DAILY 0RF (DME) Home oxygen See Rx Instructions .Route .MEDSUPPLY Qty: 1 0RF Rx Instructions: As directed (DME) nebulizers [facility] [place] See Rx Instructions .ROUTE .MEDSUPPLY Qty: 1 0RF Rx Instructions: As directed lisinopril 10 mg tablet 10 mg PO DAILY 30 Days Qty: 30 0RF budesonide-formoterol [Symbicort] 160-4.5 mcg/actuation HFA aerosol inhaler 2 puff inhalation BID 30 Days Qty: 10.2 2RF albuterol sulfate [Ventolin HFA] 90 mcg/actuation HFA aerosol inhaler 2 inh inhalation Q4H PRN (Reason: shortness of breath or wheezing) Qty: 8.5 2RF atorvastatin 40 mg tablet 40 mg PO QAM Qty: 90 1RF carvedilol [Coreg] 25 mg tablet See Rx Instructions .ROUTE .COMPLEX Qty: 180 1RF Rx Instructions: 50 mg orally twice a day except on dialysis days (mon,wed,fri) takes 50mg daily furosemide 80 mg tablet 80 mg PO BID Qty: 180 1RF hydralazine 100 mg tablet 100 mg PO TID Qty: 270 1RF isosorbide mononitrate 120 mg tablet extended release 24 hr 120 mg PO DAILY Qty: 90 1RF nifedipine 60 mg tablet extended release 24hr 90 mg PO QAM Qty: 135 1RF pantoprazole 40 mg tablet,delayed release (DR/EC) 40 mg PO BID Qty: 180 1RF metolazone 5 mg tablet 5 mg PO .ON THU,THU,THU 0RF ondansetron HCl 8 mg tablet 8 mg PO Q8H PRN (Reason: Nausea And Vomiting) 0RF acetaminophen 500 mg Tablet 1,000 mg PO Q4H PRN (Reason: Pain) 0RF budesonide 0.5 mg/2 mL suspension for nebulization 0.5 mg inhalation BID PRN (Reason: states only uses prn) 0RF Rx Instructions: Rinse mouth after treatment citalopram [Celexa] 10 mg tablet 10 mg PO QAM 0RF clonidine HCl 0.3 mg tablet See Rx Instructions .ROUTE .COMPLEX 0RF Rx Instructions: 0.3 mg orally three times a day except on dialysis days (thu,thu,thu) take 0.3mg twice a day aspirin 81 mg tablet,delayed release (DR/EC) 81 mg PO QAM 0RF Referrals: Ricardo Stack MD [Primary Care Provider] - Coding Level of Care Code ED Radiation Protection Technician for Chg Fwd Exam Comprehensive
[2021-05-25 07:02] LABS: NT Pro B Type Natriuretic Pept > 70000 pg/mL (0-125)
[2021-05-25] MEDS: calcium chloride 10% Syr 10 mL 1 GM IVP (07:59)
--- NOTE | 2021-05-25 08:05 | ECG_ITS ---
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 Measurements Intervals [place] Rate: 75 P: [place]: QRS: 13 QRSD: 106 T: 64 QT: 368 QTc: 413 Interpretive Statements ATRIAL FLUTTER/TACHYCARDIA LEFT VENTRICULAR HYPERTROPHY AND ST-T CHANGE [VOLTAGE CRITERIA PLUS ST/T ABNORMALITY] Compared to ECG 05/25/2021 06:01:34 Left ventricular hypertrophy now present ST (T wave) deviation now present T-wave abnormality no longer present Possible ischemia no longer present Electronically Signed On 05-25-2021 18:09:05 WOOD AND HARDWARE OUTFITTER by Shanna Sosa M.D. [email or web address]
[2021-05-25] MEDS: sodium polystyrene sulfonate 15 gm/60 mL Btl PO (08:08)
[2021-05-25] MEDS: levofloxacin-dextrose 5 % 500 MG/100 ML PREMIX 100 MG IV (08:43)
[2021-05-25] MEDS: vancomycin 1,000 MG in sodium chloride 0.9% 250 ML 250 MG IV ×2 (08:43→17:08)
[2021-05-25 09:11] LABS: Troponin 5 2HR 92.28 ng/L (0-15)
[2021-05-25 10:03] LABS: Adenovirus Not Detected (NOT DETECT); Chlamydia Pneumoniae Not Detected (NOT DETECT); Coronavirus 229E,HKU1,NL63,OC4 Not Detected (NOT DETECT); Human Metapneumovirus Not Detected (NOT DETECT); Human Rhinovirus/Enterovirus Not Detected (NOT DETECT); Influenza A Not Detected (NOT DETECT); Influenza A H1 Not Detected (NOT DETECT); Influenza A H1-2009 Not Detected (NOT DETECT); Influenza A H3 Not Detected (NOT DETECT); Influenza B Not Detected (NOT DETECT); Mycoplasma Pneumoniae Not Detected (NOT DETECT); Parainfluenza Virus Type 1 Not Detected (NOT DETECT); Parainfluenza Virus Type 2 Not Detected (NOT DETECT); Parainfluenza Virus Type 3 Not Detected (NOT DETECT); Parainfluenza Virus Type 4 Not Detected (NOT DETECT); Respiratory Syncytial Virus A Not Detected (NOT DETECT); Respiratory Syncytial Virus B Not Detected (NOT DETECT); SARS-COV-2 Not Detected (NOT DETECT)
[2021-05-25 10:08] LABS: Troponin 5 2HR Delta 3.28 ABS# (0-10)
--- NOTE | 2021-05-25 10:15 | PM.HP ---
Providers/Chief Complaint Admitting Physician: Nish Stack MD Primary Care Provider: Ricardo Stack MD Chief Complaint: sob History of Present Illness Leopoldo Schaefer is a 46 year old male with a past medical history of COPD, end-stage renal disease on dialysis, sleep apnea, atrial fibrillation, history of anemia and bleeding.on anticoagulation, diastolic CHF, resistant hypertension, history of noncompliance with dialysis, who presents [facility] due to worsening shortness of breath, cough, no fevers, has not been vaccinated for Covid. He tells me that he went to dialysis on Thursday and Thursday. However he did not go to dialysis on Thursday due to the weather. He is bending experiencing increased shortness of breath at rest with exertion, productive cough, no chills, no fevers, no sick contacts, has been hospitalized multiple times for CHF exacerbation secondary to noncompliance with dialysis. Does report bilateral extremity edema. No chest pain. Review of Systems Const: Denies: fever(s), fatigue or malaise Eyes: Denies: blurry vision ENMT: Denies: nasal congestion GI: Denies: abdominal pain, nausea, vomiting, hematemesis, diarrhea, hematochezia or melena : Denies: dysuria Musc: Denies: neck pain or back pain Skin/Breast: Denies: rash Neuro: Denies: headache(s), dizziness or vertigo Medications/Allergies Home Medications Medication Instructions Recorded Confirmed Last Taken Type vit B,C-folic ac 800 mcg-zinc 12.5 1 tab PO DAILY 06/09/19 05/25/21 05/24/21 History mg-selen-D3 2,000 unit-vit E tablet (RenaPlex-D) Home oxygen #1 ea 08/07/20 05/25/21 Unknown Rx nebulizers #1 ea 08/07/20 05/25/21 Unknown Rx sucroferric oxyhydroxide 500 mg See Rx Instructions .ROUTE .COMPLEX 11/12/20 05/25/21 05/24/21 History chewable tablet (Velphoro) budesonide-formoterol HFA 160 2 puff INHALATION BID 30 Days 12/28/20 05/25/21 05/24/21 Rx mcg-4.5 mcg/actuation aerosol #10.2 g inhaler (Symbicort) metolazone 5 mg tablet 5 mg PO .ON MON,THU,Thu12/30/20 05/25/21 05/24/21 History revefenacin 175 mcg/3 mL solution 175 mcg INHALATION DAILY 01/16/21 05/25/21 Unknown History for nebulization (Yupelri) albuterol sulfate 90 mcg/actuation 2 inh INHALATION Q4H PRN #8.5 g 01/28/21 05/25/21 Unknown Rx aerosol inhaler (Ventolin HFA) acetaminophen 500 mg tablet 1,000 mg PO Q4H PRN 02/15/21 05/25/21 Unknown History budesonide 0.5 mg/2 mL suspension 0.5 mg INHALATION BID PRN 02/15/21 05/25/21 Unknown History for nebulization ondansetron HCl 8 mg tablet 8 mg PO Q8H PRN 02/15/21 05/25/21 Unknown History hydroxyzine HCl 25 mg tablet 25 mg PO BID PRN 30 Days #60 tab 02/19/21 05/25/21 Unknown Rx aspirin 81 mg tablet,delayed 81 mg PO QAM 04/03/21 05/25/21 05/24/21 History release citalopram 10 mg tablet (Celexa) 10 mg PO QAM 04/03/21 05/25/21 05/24/21 History clonidine HCl 0.3 mg tablet See Rx Instructions .ROUTE .COMPLEX 04/03/21 05/25/21 05/24/21 History atorvastatin 40 mg tablet 40 mg PO QAM #90 tab 05/09/21 05/25/21 05/24/21 Rx carvedilol 25 mg tablet (Coreg) See Rx Instructions .ROUTE 05/09/21 05/25/21 05/24/21 Rx .COMPLEX #180 tab furosemide 80 mg tablet 80 mg PO BID #180 tab 05/09/21 05/25/21 05/24/21 Rx hydralazine 100 mg tablet 100 mg PO TID #270 tab 05/09/21 05/25/21 05/24/21 Rx isosorbide mononitrate 120 mg 120 mg PO DAILY #90 tab 05/09/21 05/25/21 05/24/21 Rx tablet,extended release 24 hr nifedipine 60 mg tablet,extended 90 mg PO QAM #135 tab 05/09/21 05/25/21 05/24/21 Rx release 24 hr pantoprazole 40 mg tablet,delayed 40 mg PO BID #180 tab 05/09/21 05/25/21 05/24/21 Rx release fluticasone propionate 50 1 spray INTRANASAL DAILY PRN 05/25/21 05/25/21 Unknown History mcg/actuation nasal spray,suspension trazodone 50 mg tablet 50 mg PO BEDTIME 05/25/21 05/25/21 05/24/21 History Allergies Allergy/AdvReac Type Severity Reaction Status Date / Time Penicillins Allergy ALGY-Hives Verified 04/03/21 09:54 tramadol Allergy ALGY-Hives Verified 04/03/21 09:54 PFSH Acute PFSH: Medical History Acute respiratory failure with hypoxia Anemia Anxiety and depression Atrial fibrillation Atrial fibrillation Chest pain COPD (chronic obstructive pulmonary disease) Reports he is on 4 L of oxygen at home COPD (chronic obstructive pulmonary disease) CRF (chronic renal failure) Diastolic CHF Elevated troponin Encounter to establish care End stage chronic kidney disease ESRD on dialysis GERD (gastroesophageal reflux disease) Hypertension Hypertension Hypertension screen Hypoxia Insomnia Lower respiratory tract infection Resistant hypertension Sebaceous cyst Vitamin D deficiency Surgical History H/O circumcision H/O hand surgery right hand with hardware Presence of peritoneal dialysis catheter S/P dialysis catheter insertion (12/12/19) Removed on 04/04/2020 S/P hemodialysis catheter insertion Family History Other Adopted Denies family history of Anesthesia complication Bleeding disorder Social History Smoking and tobacco status: current every day smoker (1ppd X26 years) cigarettes [ Other cigarette details: On and off quitting and restarting] Alcohol intake: never Household members: significant other Marital status: Single Current occupational status: disabled History of recent travel: Yes Details: [place] Out of state: Yes Vitals/I&O/Wt Last Vital Signs Temp 98.3 F 05/25/21 05:47 Pulse 130 H 05/25/21 09:17 Resp 25 H 05/25/21 09:17 BP 196/112 05/25/21 09:17 Pulse Ox 95 05/25/21 09:17 05/24/21 05/25/21 05/25/21 22:59 06:59 14:59 Intake Total 15.875 / 15.875 Balance 15.875 / 15.875 Weight last 48 hrs Weight 93.44 kg Physical Exam Const: COMMON NORMALS: no acute distress and patient oriented x3 HENMT: COMMON NORMALS: normocephalic HEAD & SCALP: normocephalic Neck/C-Spine: COMMON NORMALS: no JVD Lymph: LYMPHATIC: no lymphadenopathy noted Resp: COMMON NORMALS: normal respiratory effort, No retractions, No use of accessory muscles and clear to auscultation bilaterally AUSCULTATION: crackles Cardio: COMMON NORMALS: no JVD, regular rate, regular rhythm, S1 normal heart sound present and S2 normal heart sound present RATE: regular rate RHYTHM: regular rhythm HEART SOUNDS: S1 normal heart sound present and S2 normal heart sound present GI: COMMON NORMALS: Normal to inspection, nondistended, normoactive bowel sounds present, Soft to palpation, non-tender, No hepatosplenomegaly present, no masses and no bruits PALPATION: Yes Soft to palpation and Yes No hepatosplenomegaly present Extremity: COMMON NORMALS: capillary refill normal, no clubbing, cyanosis or edema and no calf tenderness NARRATIVE EXTREMITY EXAM: Bilateral 1+ pitting edema Neuro: COMMON NORMALS: patient oriented x3 Psych: COMMON NORMALS: mental status grossly normal Data : 05/25/21 06:00 05/25/21 06:00 Micro: Microbiology 05/25/21 06:15 Blood Culture - Preliminary Blood SPECIMEN COLLECTED 05/25/21 06:04 Blood Culture - Preliminary Blood SPECIMEN COLLECTED A&P Assessment and plan (1) Atrial fibrillation/flutter: Status: Acute (2) ESRD on dialysis: Status: Acute (3) Healthcare-associated pneumonia: Status: Acute (4) Acute hyperkalemia: Status: Acute (5) COPD exacerbation: Status: Acute (6) Pulmonary edema: Status: Acute (7) Hypertension: Status: Acute Qualifiers: Hypertension type: essential hypertension Qualified Code(s): I10 - Essential (primary) hypertension (8) Paroxysmal atrial fibrillation with RVR: Status: Acute (9) Anemia: Status: Acute (10) Anxiety and depression: Status: Acute Plan A. fib with RVR -Continue Cardizem drip -Continue home Coreg -Transition to p.o. Cardizem -Full dose anticoagulation relatively contraindicated given history of anemia and GI bleed -Lovenox for DVT prophylaxis -Full code Fluid overload, pulmonary edema, exacerbation of diastolic CHF -We will get dialysis today -Nephrology on consult Healthcare associated pneumonia -Right lower lobe -Sputum cultures, blood cultures, urine bacterial antigens -Continue vancomycin, Primaxin -Monitor respiratory status closely Hypertension -Continue home medications COPD, not in exacerbation, no acute wheezing End-stage renal disease on dialysis, missed dialysis due to weather, will receive dialysis Hyperkalemia, will receive dialysis Attestations Medical Necessity Statement*: Patient requires hospitalization, inpatient, greater than 2 midnights, for A. fib with RVR for acute diastolic CHF exacerbation, fluid overload, healthcare associated pneumonia Coding Level of Care Code Acute Artillery Or Naval Gunfire Observer for g Fwd Diagnoses Atrial fibrillation/flutter ESRD on dialysis N18.6; Z99.2 Healthcare-associated pneumonia J18.9 Acute hyperkalemia E87.5 COPD exacerbation J44.1 Pulmonary edema J81.1 Hypertension I10 Hypertension type: essential hypertension Paroxysmal atrial fibrillation with RVR I48.0 Anemia D64.9 Anxiety and depression F41.9; F32.9
--- NOTE | 2021-05-25 10:35 | PC.CHAP ---
Pastoral Care Encounter/Spiritual Assessment Type of Contact [] Declined associate project manager visit [] Patient/Family/Request visit [] Outpatient visit [] Follow-up visit [] Physician referral [] Code/Alert [X] Routine visit [] Staff referral [] Actively dying [] Patient sleeping [] Family support [] [] Out of room [] Palliative care [] [X] Receiving care in room [] Pre-surgical visit [] Trauma [] Long length of stay [] ICU visit [X] Other: Pt just arrived from ED; staff in room Relational/Emotional Strength [] Patient feels connected with others/family/visitors/staff [] Distress [] Loneliness/isolation [] Abandonment Spirituality of Patient [] Person of Manjula [] Attends Catholic of their Manjula [] Believes in Prayer [] Reads Bible or Protestant materials [] There are Spiritual issues to be addressed Clinical Academic Allergist Interventions [] Prayer [] Active listening [] Non-anxious presence [] Spiritual/emotional support [] Crisis/trauma care [] Spiritual counseling [] Bereavement support [] Provided bereavement packet [] Provided Bible/devotional materials [] Provided toy/stuffed animal, coloring book to patient or family member [] Provided Communion [] Anointing/[place] [] Salvation [] Completed spiritual assessment [] Other: Impact on Illness or Injury [] Angry [] Fearful [] Anxious [] Often cries [] Exhaustion [] Unable to work [] Unable to attend samaritan [] Unable to walk/stand [] Unable to read [] Unable to drive [] Unable to eat/drink [] Unable to sleep [] Unable to be with family [] Patient intubated [] Other: Summary Time spent with patient
[2021-05-25 11:09] LABS: Hepatitis B Surface Antigen Non-Reactive (Nonreactive); Hepatitis C Virus Antibody Non-Reactive (Nonreactive)
--- NOTE | 2021-05-25 12:05 | ECG_ITS ---
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 Measurements Intervals [place] Rate: 92 P: 24 [place]: 196 QRS: -17 QRSD: 101 T: 81 QT: 372 QTc: 461 Interpretive Statements SINUS RHYTHM LEFT VENTRICULAR HYPERTROPHY AND ST-T CHANGE [VOLTAGE CRITERIA PLUS ST/T ABNORMALITY] Compared to ECG 05/25/2021 10:50:10 Atrial flutter no longer present ST (T wave) deviation still present Electronically Signed On 05-25-2021 18:09:24 LASTEX THREAD WINDER by Shanna Sosa M.D. [id number]
[2021-05-25 12:31] LABS: Hepatitis B Surface AB < 3.5 (11.5-1000)
--- NOTE | 2021-05-25 13:08 | P.CONIM_ITS ---
Providers/Reason For Consult Consulting Physician/Specialty*: Ashwini Mina DO, telenephrology Reason for Consult*: ESRD Requesting Physician: Nish Stack MD Attending Physician: Nish Stack MD Primary Care Provider: Ricardo Stack MD History of Present Illness History of Present Illness Leopoldo Schaefer is a 46 year old male missed HD yesterday, came to ER with CC of shortness of breath. + Afib RVR States he has been on HD x > 2 years. Does not have AVF or AVG Medications/Allergies Home Medications Medication Instructions Recorded Confirmed Last Taken Type vit B,C-folic ac 800 mcg-zinc 12.5 1 tab PO DAILY 06/09/19 05/25/21 05/24/21 History mg-selen-D3 2,000 unit-vit E tablet (RenaPlex-D) Home oxygen #1 ea 08/07/20 05/25/21 Unknown Rx nebulizers #1 ea 08/07/20 05/25/21 Unknown Rx sucroferric oxyhydroxide 500 mg See Rx Instructions .ROUTE .COMPLEX 11/12/20 05/25/21 05/24/21 History chewable tablet (Velphoro) budesonide-formoterol HFA 160 2 puff INHALATION BID 30 Days 12/28/20 05/25/21 05/24/21 Rx mcg-4.5 mcg/actuation aerosol #10.2 g inhaler (Symbicort) metolazone 5 mg tablet 5 mg PO .ON MON,WED,FRI 12/30/20 05/25/21 05/24/21 History revefenacin 175 mcg/3 mL solution 175 mcg INHALATION DAILY 01/16/21 05/25/21 Unknown History for nebulization (Yupelri) albuterol sulfate 90 mcg/actuation 2 inh INHALATION Q4H PRN #8.5 g 01/28/21 05/25/21 Unknown Rx aerosol inhaler (Ventolin HFA) acetaminophen 500 mg tablet 1,000 mg PO Q4H PRN 02/15/21 05/25/21 Unknown History budesonide 0.5 mg/2 mL suspension 0.5 mg INHALATION BID PRN 02/15/21 05/25/21 Unknown History for nebulization ondansetron HCl 8 mg tablet 8 mg PO Q8H PRN 02/15/21 05/25/21 Unknown History hydroxyzine HCl 25 mg tablet 25 mg PO BID PRN 30 Days #60 tab 02/19/21 05/25/21 Unknown Rx aspirin 81 mg tablet,delayed 81 mg PO QAM 04/03/21 05/25/21 05/24/21 History release citalopram 10 mg tablet (Celexa) 10 mg PO QAM 04/03/21 05/25/21 05/24/21 History clonidine HCl 0.3 mg tablet See Rx Instructions .ROUTE .COMPLEX 04/03/21 05/25/21 05/24/21 History atorvastatin 40 mg tablet 40 mg PO QAM #90 tab 05/09/21 05/25/21 05/24/21 Rx carvedilol 25 mg tablet (Coreg) See Rx Instructions .ROUTE 05/09/21 05/25/21 05/24/21 Rx .COMPLEX #180 tab furosemide 80 mg tablet 80 mg PO BID #180 tab 05/09/21 05/25/21 05/24/21 Rx hydralazine 100 mg tablet 100 mg PO TID #270 tab 05/09/21 05/25/21 05/24/21 Rx isosorbide mononitrate 120 mg 120 mg PO DAILY #90 tab 05/09/21 05/25/21 05/24/21 Rx tablet,extended release 24 hr nifedipine 60 mg tablet,extended 90 mg PO QAM #135 tab 05/09/21 05/25/21 05/24/21 Rx release 24 hr pantoprazole 40 mg tablet,delayed 40 mg PO BID #180 tab 05/09/21 05/25/21 05/24/21 Rx release fluticasone propionate 50 1 spray INTRANASAL DAILY PRN 05/25/21 05/25/21 Unknown History mcg/actuation nasal spray,suspension trazodone 50 mg tablet 50 mg PO BEDTIME 05/25/21 05/25/21 05/24/21 History Allergies Allergy/AdvReac Type Severity Reaction Status Date / Time Penicillins Allergy ALGY-Hives Verified 04/03/21 09:54 tramadol Allergy ALGY-Hives Verified 04/03/21 09:54 Current Medications Generic Name Dose Route Start Last Admin Trade Name Freq PRN Reason Stop Dose Admin Diltiazem HCl 125 mg/ Sodium 125 mls @ 0 mls/hr 05/25/21 06:15 05/25/21 09:06 Chloride IV 15 mg/hr .Q0M FRANCISCO 15 mls/hr Titration Protocol Per Protocol PFSH Acute PFSH: Medical History Acute respiratory failure with hypoxia Anemia Anxiety and depression Atrial fibrillation Atrial fibrillation Chest pain COPD (chronic obstructive pulmonary disease) Reports he is on 4 L of oxygen at home COPD (chronic obstructive pulmonary disease) CRF (chronic renal failure) Diastolic CHF Elevated troponin Encounter to establish care End stage chronic kidney disease ESRD on dialysis GERD (gastroesophageal reflux disease) Hypertension Hypertension Hypertension screen Hypoxia Insomnia Lower respiratory tract infection Resistant hypertension Sebaceous cyst Vitamin D deficiency Surgical History H/O circumcision H/O hand surgery right hand with hardware Presence of peritoneal dialysis catheter S/P dialysis catheter insertion (12/12/19) Removed on 04/04/2020 S/P hemodialysis catheter insertion Family History Other Adopted Denies family history of Anesthesia complication Bleeding disorder Social History Smoking and tobacco status: current every day smoker (1ppd X26 years) cigarettes [ Other cigarette details: On and off quitting and restarting] Alcohol intake: never Household members: significant other Marital status: Single Current occupational status: disabled History of recent travel: Yes Details: [place] Out of state: Yes Vitals/I&O/Wt Last Vital Signs Temp 99.0 F 05/25/21 12:23 Pulse 101 H 05/25/21 12:23 Resp 18 05/25/21 12:23 BP 136/84 05/25/21 12:23 Pulse Ox 95 05/25/21 11:00 05/24/21 05/25/21 05/25/21 22:59 06:59 14:59 Intake Total 465.875 / 465.875 Balance 465.875 / 465.875 Weight last 48 hrs Weight 93.44 kg Physical Exam Const: COMMON NORMALS: no acute distress Neck/C-Spine: OTHER: tunneled IJ catheter Resp: AUSCULTATION: rhonchi Cardio: RHYTHM: abnormal rhythm Extremity: NARRATIVE EXTREMITY EXAM: + bilateral LE edema Data : 05/25/21 06:00 05/25/21 06:00 Other Labs: BNP > 46461 7.59/37/64 1.5L NC Ca 9.9 HepBsAg neg, COVID PCR neg Micro: Microbiology 05/25/21 06:15 Blood Culture - Preliminary Blood SPECIMEN COLLECTED 05/25/21 06:04 Blood Culture - Preliminary Blood SPECIMEN COLLECTED CXR: Radiologist's impression: Tubes, catheters and devices: A dialysis catheter is present with tip projecting in the SVC. Lungs: There is patchy right basilar consolidation and atelectasis. Pleural spaces: There is a small right pleural effusion. No pneumothorax. Heart/Mediastinum: The cardiac silhouette is enlarged but unchanged. Bones/joints: Unremarkable. A&P Assessment and plan (1) Hyponatremia: Status: Acute Plan Seen and examined at bedside via telemedicine with assistance of RN 1. ESRD 2. Volume overload 3. Possible pneumonia 4. A fib 5. Mild anemia, hyperkalemia, hyponatremia Plan: HD today, 4h, 2L UF, heparin 1000 u bolus. 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
--- NOTE | 2021-05-25 13:31 | PC.NURSE ---
pt off floor recieving dialysis. on tele, dialysis nurse aware that pt is on cardizem gtt and instructed to call if hr 60 or below or bp drops.
[2021-05-25 13:49] LABS: Troponin 5 6HR 91.58 ng/L (0-15)
[2021-05-25 14:01] LABS: Troponin 5 6HR Delta 2.58 ng/L (0-12)
[2021-05-25 14:25] LABS: Thyroid Stimulating Hormone 1.36 uIU/mL (0.27-4.20)
[2021-05-25] MEDS: carvedilol 25 mg Tablet 50 MG PO (14:39)
[2021-05-25] MEDS: pantoprazole DR 40 mg Tablet PO ×2 (14:39→17:10)
[2021-05-25] MEDS: hyDRALAzine 50 mg Tablet 100 MG PO ×2 (14:39→20:05)
[2021-05-25] MEDS: lisinopril 10 mg Tablet PO (14:40)
[2021-05-25] MEDS: dilTIAZem 60 mg Tablet PO ×2 (14:40→20:05)
[2021-05-25] MEDS: heparin 5,000 unit/mL INJ 1 mL 5000 UNIT SUBCUT (17:09)
[2021-05-25] MEDS: HYDROcodone-acetaminophen 5-325 mg Tablet 1 TAB PO (17:24)
[2021-05-25] MEDS: trazodone 50 mg Tablet PO (21:10)
[2021-05-25] MEDS: ipratropium-albuterol 3 mL Neb INHALATION (21:26)
[2021-05-25] MEDS: nicotine 21 mg Patch 1 PATCH TRANSDERMA (22:58)
[2021-05-26] VITALS (22 sets, daily range): BP systolic 126–178; BP diastolic 59–81; PULSE 67–94; RESP 16–26; TEMP 36.6–37.1; O2SAT 91–98
[2021-05-26] MEDS: heparin 5,000 unit/mL INJ 1 mL 5000 UNIT SUBCUT ×2 (00:26→12:23)
[2021-05-26] MEDS: dilTIAZem 60 mg Tablet PO ×4 (00:26→18:19)
--- NOTE | 2021-05-26 05:17 | PC.NURSE ---
Addendum entered by Eloina Amaro RN 05/26/21 05:31: Patient educated on importance of knowing lab values by primary RN and is still refusing. Original Note: Patient refusing lab draws at this time. Phlebotimist states to me that patient states, I can't take being stuck anymore.
[2021-05-26] MEDS: atorvastatin 40 mg Tablet PO (05:46)
[2021-05-26] MEDS: citalopram 20 mg Tablet 10 MG PO (05:46)
[2021-05-26] MEDS: aspirin 81 mg EC Tablet PO (05:47)
[2021-05-26] MEDS: ipratropium-albuterol 3 mL Neb INHALATION ×6 (07:18→23:55)
[2021-05-26] MEDS: hyDRALAzine 50 mg Tablet 100 MG PO ×3 (08:22→20:00)
[2021-05-26] MEDS: carvedilol 25 mg Tablet 50 MG PO ×2 (08:22→18:19)
[2021-05-26] MEDS: pantoprazole DR 40 mg Tablet PO ×2 (08:22→18:19)
--- NOTE | 2021-05-26 08:26 | PM.PN ---
Subjective Subjective: no new complaints Medications: Reviewed: Yes Vitals/I&O/Wt Last Vital Signs Temp 98.5 F 05/26/21 07:49 Pulse 90 05/26/21 07:49 Resp 20 H 05/26/21 07:49 BP 178/81 05/26/21 07:49 Pulse Ox 98 05/26/21 07:49 05/25/21 05/26/21 05/26/21 22:59 06:59 14:59 Intake Total 1349.375 / 1900.000 426 / 2326.000 Output Total 2310 / 2310 Balance -960.625 / -410.000 426 / 16.000 Weight last 48 hrs Weight 96.3 kg Weight 93.44 kg Physical Exam Const: COMMON NORMALS: no acute distress Extremity: COMMON NORMALS: no pedal edema Data : 05/25/21 06:00 05/25/21 06:00 Micro: Microbiology 05/25/21 06:15 Blood Culture - Preliminary Blood NEGATIVE TO DATE 05/25/21 06:04 Blood Culture - Preliminary Blood NEGATIVE TO DATE 05/25/21 20:50 Legionella Urinary Antigen - Final Urine,Voided 05/25/21 08:11 Gram Stain - Final Sputum - Expectorated Sputum A&P Assessment and plan (1) ESRD on dialysis: Status: Acute Plan Seen and examined at bedside via telemedicine with assistance of RN 1. ESRD 2. Volume overload 3. Possible pneumonia 4. A fib 5. Mild anemia, hyperkalemia, hyponatremia Plan: Next scheduled HD Thursday05/27/21 Attestations Medical Necessity Statement*: per primary service Coding Level of Care Code Acute Open Source Developer for g Fwd Exam Expanded Problem Focused Diagnoses ESRD on dialysis N18.6; Z99.2
--- NOTE | 2021-05-26 10:19 | PC.NURSE ---
Vancomycin not given per order stating to give after dialysis treatment. Pt is not having dialysis today. Verified with pharmacy.
--- NOTE | 2021-05-26 10:32 | PC.CHAP ---
Pastoral Care Encounter/Spiritual Assessment Type of Contact [] Declined lighting adviser visit [] Patient/Family/Request visit [] Outpatient visit [] Follow-up visit [] Physician referral [] Code/Alert [X] Routine visit [] Staff referral [] Actively dying [] Patient sleeping [] Family support [] [] Out of room [] Palliative care [] [] Receiving care in room [] Pre-surgical visit [] Trauma [] Long length of stay [] ICU visit [] Other: Relational/Emotional Strength [] Patient feels connected with others/family/visitors/staff [X] Distress [] Loneliness/isolation [X] Abandonment Spirituality of Patient [] Person of Manjula [] Attends Hindu of their Manjula [] Believes in Prayer [] Reads Bible or Pentecostal materials [X] There are Spiritual issues to be addressed Lifestyle Block Farmer Interventions [X] Prayer [X] Active listening [X] Non-anxious presence [X] Spiritual/emotional support [] Crisis/trauma care [] Spiritual counseling [] Bereavement support [] Provided bereavement packet [] Provided Bible/devotional materials [] Provided toy/stuffed animal, coloring book to patient or family member [] Provided Communion [] Anointing/[place] [] Salvation [X] Completed spiritual assessment [X] Other: advocacy - secondary social studies teacher referral Impact on Illness or Injury [X] Angry [] Fearful [X] Anxious [] Often cries [] Exhaustion [X] Unable to work [] Unable to attend zoroastrianism [] Unable to walk/stand [] Unable to read [] Unable to drive [] Unable to eat/drink [] Unable to sleep [] Unable to be with family [] Patient intubated [] Other: Summary: Pt self describes his soul as . In addition to all of the medical diagnoses of the past 3 years, the pt has a long history of losses, many life challenges, and broken relationships. Through childhood and early adult years, pt attended mormonism and has had multiple baptisms per respective mormonism doctrines. However, in the past couple of decades, pt's manjula has depleted and is essentially nonexistent today. Lifestyle Block Farmer and pt read scripture, prayed, and discussed how God remains present and loves Leopoldo. Also, Leopoldo is in need of housing so lighting adviser referred him to secondary social studies teacher. Pt advised that chaplains are available upon request. Time spent with patient: 30 mins
[2021-05-26] MEDS: HYDROcodone-acetaminophen 5-325 mg Tablet 1 TAB PO ×2 (11:09→19:01)
[2021-05-26] MEDS: predniSONE 20 mg Tablet 40 MG PO (12:23)
[2021-05-26] MEDS: isosorbide mononitrate ER 60 mg Tablet 120 MG PO (12:23)
--- NOTE | 2021-05-26 12:40 | P.PN_ITS ---
Subjective Subjective: Patient was seen this morning, he sitting up beside the bed, complaining of shortness of breath currently on 4 L, he did tell me that he felt better with dialysis, I discussed repeating dialysis today, however he declines, he tells me that he wants to wait till tomorrow, advised of my worry about his worsening respiratory status, does have wheezing on exam, however he declines dialysis today, wants to do it tomorrow, he also refused blood draws this mor discussed my concerns for worsening respiratory failure, worsening pulmonary edema, he voiced understanding, all questions answered, declined dialysis for today, does not urinate much with his end-stage renal disease Vitals/I&O/Wt Last Vital Signs Temp 98.8 F 05/26/21 11:19 Pulse 82 05/26/21 11:59 Resp 18 05/26/21 11:59 BP 146/75 05/26/21 11:19 Pulse Ox 95 05/26/21 11:59 05/25/21 05/26/21 05/26/21 22:59 06:59 14:59 Intake Total 1349.375 / 1900.000 426 / 2326.000 240 / 240 Output Total 2310 / 2310 Balance -960.625 / -410.000 426 / 16.000 240 / 240 Weight last 48 hrs Weight 96.3 kg Weight 93.44 kg Physical Exam Const: COMMON NORMALS: no acute distress and patient oriented x3 Resp: COMMON NORMALS: normal respiratory effort, No retractions and No use of accessory muscles AUSCULTATION: crackles Cardio: COMMON NORMALS: regular rate, regular rhythm, S1 normal heart sound p resent and S2 normal heart sound present RATE: regular rate RHYTHM: regular rhythm HEART SOUNDS: S1 normal heart sound present and S2 normal heart sound present GI: COMMON NORMALS: Normal to inspection, nondistended, normoactive bowel sounds present, Soft to palpation, non-tender, No hepatosplenomegaly present and no masses PALPATION: Yes Soft to palpation and Yes No hepatosplenomegaly present Extremity: COMMON NORMALS: no pedal edema Neuro: COMMON NORMALS: patient oriented x3 Data : 05/25/21 06:00 05/25/21 06:00 Micro: Microbiology 05/25/21 08:11 Gram Stain - Final Sputum - Expectorated Sputum Sputum Culture - Preliminary 05/25/21 20:50 Bacterial Antigens - Final Urine,Clean Catch 05/25/21 06:15 Blood Culture - Preliminary Blood NEGATIVE TO DATE 05/25/21 06:04 Blood Culture - Preliminary Blood NEGATIVE TO DATE 05/25/21 20:50 Legionella Urinary Antigen - Final Urine,Voided A&P Assessment and plan (1) Atrial fibrillation/flutter: Status: Acute (2) ESRD on dialysis: Status: Acute (3) Healthcare-associated pneumonia: Status: Acute (4) Acute hyperkalemia: Status: Acute (5) COPD exacerbation: Status: Acute (6) Pulmonary edema: Status: Acute (7) Hypertension: Status: Acute Qualifiers: Hypertension type: essential hypertension Qualified Code(s): I10 - Essential (primary) hypertension (8) Paroxysmal atrial fibrillation with RVR: Status: Acute (9) Anemia: Status: Acute (10) Anxiety and depression: Status: Acute Plan A. fib with RVR -Off Cardizem drip, on p.o. Cardizem -Continue home Coreg -Full dose anticoagulation relatively contraindicated given history of anemia and GI bleed -Heparin for DVT prophylaxis -Full code Fluid overload, pulmonary edema, exacerbation of diastolic CHF -Refusing dialysis today -Agreeable for dialysis tomorrow, fluid restriction 1200 cc -Nephrology on consult Healthcare associated pneumonia -Right lower lobe -Sputum cultures, blood cultures, urine bacterial antigens -Continue vancomycin, Primaxin -Monitor respiratory status closely Hypertension -Continue home medications COPD, Has evidence of COPD exacerbation, prednisone 40 mg daily, ipratropium, budesonide End-stage renal disease on dialysis, missed dialysis due to weather, will re ceive dialysis Hyperkalemia, resolving Attestations Medical Necessity Statement*: Patient requires hospitalization for acute respiratory failure, pneumonia, pulmonary edema Coding Level of Care Code 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
[2021-05-26] MEDS: budesonide 0.5 mg/2 mL Neb INHALATION ×2 (15:33→20:04)
[2021-05-26] MEDS: trazodone 50 mg Tablet PO (20:00)
[2021-05-26] MEDS: nicotine 21 mg Patch 1 PATCH TRANSDERMA (20:00)
[2021-05-27] VITALS (18 sets, daily range): BP systolic 151–178; BP diastolic 67–84; PULSE 61–81; RESP 16–24; TEMP 36.6–36.8; O2SAT 85–98
[2021-05-27] MEDS: dilTIAZem 60 mg Tablet PO ×2 (01:24→05:50)
[2021-05-27] MEDS: heparin 5,000 unit/mL INJ 1 mL 5000 UNIT SUBCUT (01:25)
[2021-05-27] MEDS: ipratropium-albuterol 3 mL Neb INHALATION ×4 (03:02→15:15)
[2021-05-27 03:35] LABS: Lactate (Lactic Acid level) 0.4 mmol/L (0.5-2.2)
[2021-05-27 03:45] LABS: Procalcitonin 2.65 ng/mL (0-0.5)
[2021-05-27 03:58] LABS: Alanine Aminotransferase 7 U/L (0-41); Albumin Level 2.9 g/dL (3.5-5.2); Alkaline Phosphatase 84 IU/L (40-130); Anion Gap 19.9 (5-19); Aspartate Amino Transferase 7 U/L (0-40); Blood Urea Nitrogen 50 mg/dL (6-20); C Reactive Protein 162.3 mg/L (0.0-4.9); Calcium 9.7 mg/dL (8.5-10.5); Carbon Dioxide 20 mmol/L (22-29); Chloride 95 mmol/L (98-107); Globulin 3.6 g/dL (1.3-4.6); Glomerular Filtration Rate 6.4 mL/min (90-130); Glucose 148 mg/dL (65-115); Osmolality Calculated 286 mOsm/kg (285-295); Phosphorus 3.9 mg/dL (2.5-4.5); Potassium 4.9 mmol/L (3.5-5.1); Sodium 130 mmol/L (136-145); Total Bilirubin 0.3 mg/dL (0.15-1.2); Total Protein 6.5 g/dL (6.6-8.7)
[2021-05-27 04:04] LABS: INR 1.26 (0.8-1.2)
[2021-05-27] MEDS: citalopram 20 mg Tablet 10 MG PO (05:48)
[2021-05-27] MEDS: atorvastatin 40 mg Tablet PO (05:49)
[2021-05-27] MEDS: aspirin 81 mg EC Tablet PO (05:49)
--- NOTE | 2021-05-27 07:53 | PC.NURSE ---
pt is transported to med surg for his dialysis
--- NOTE | 2021-05-27 10:55 | P.PN_ITS ---
Subjective Subjective: Mr. Schaefer is seen and examined on hemodialysis today. Feeling well. Hemodynamics reviewed, remain stable. Minimal extremity edema. Breathing comfortably now. Enjoying his breakfast. Vitals/I&O/Wt Last Vital Signs Temp 98.3 F 05/27/21 07:00 Pulse 75 05/27/21 07:00 Resp 20 H 05/27/21 07:00 BP 161/84 05/27/21 07:00 Pulse Ox 97 05/27/21 07:00 05/26/21 05/27/21 05/27/21 22:59 06:59 14:59 Intake Total 577 / 937 Output Total 50 / 50 Balance 527 / 887 Weight last 48 hrs Weight 96.3 kg Physical Exam Narrative: Constitutional: Awake, comfortable HEENT: Wet mucosa, no jvp, non icteric Lungs: Bilaterally clear without discernible wheeze, rales in all lung zones CVS: S1 S2, no murmurs Abdo: Soft, BS ok Ext 4: Minimal edema, peripheral perfusion with no cyanosis Neurological: Grossly non-focal Data : 05/25/21 06:00 05/27/21 02:30 Micro: Microbiology 05/25/21 08:11 Gram Stain - Final Sputum - Expectorated Sputum Sputum Culture - Final 05/25/21 20:50 Bacterial Antigens - Final Urine,Clean Catch 05/25/21 06:15 Blood Culture - Preliminary Blood NEGATIVE TO DATE 05/25/21 06:04 Blood Culture - Preliminary Blood NEGATIVE TO DATE A&P Assessment and plan (1) ESRD on dialysis: Status: Acute Plan 1. ESRD Seen and examined on hemodialysis today, tolerating this well. Next dialysis planned for Thursday if he remains in the hospital Dose medication for GFR less than 15 on dialysis 2. Hemodynamics Admission with atrial fibrillation with RVR, hemodynamics now appears stable. Management per medical team, remains on diltiazem. 3. Chemistry Noncritical minor aberration. Should correct with dialysis 4. Chronic ESRD issues To be managed as outpatient as part of standard monthly care. Okay for discharge from my perspective, defer to medical team. Matthew Holley MD Nephrology [phone] Patient seen and examined via telemedicine, with the assistance of the bedside RN > 25 min spent in evaluation and mgmt of patient Attestations Medical Necessity Statement*: ESRD Coding Level of Care Code Acute Rn Interventional for Timurg Fwd Diagnoses ESRD on dialysis N18.6; Z99.2
[2021-05-27] MEDS: lisinopril 10 mg Tablet PO (12:11)
[2021-05-27] MEDS: predniSONE 20 mg Tablet 40 MG PO (12:11)
[2021-05-27] MEDS: isosorbide mononitrate ER 60 mg Tablet 120 MG PO (12:12)
[2021-05-27] MEDS: pantoprazole DR 40 mg Tablet PO (12:12)
[2021-05-27] MEDS: carvedilol 25 mg Tablet 50 MG PO (12:12)
[2021-05-27] MEDS: hyDRALAzine 50 mg Tablet 100 MG PO (12:13)
[2021-05-27] MEDS: vancomycin 1,000 MG in sodium chloride 0.9% 250 ML 250 MG IV (13:20)
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
--- NOTE | 2021-05-27 14:36 | PC.NURSE ---
meds to bed called collaborated with case mgt regarding his dme: oxygen and nebulizer and transport.
--- NOTE | 2021-05-27 18:20 | PC.NURSE ---
discharge to home w/[facility]. pt stated that he is out of coreg. notified dr. arnold on a refill. called [facility] pharmacy and they said they can't refill it due to pt insurance paid a refill on at [facility] w[facility]c [facility]. verified [facility] and they said it is ready to be picked up. pt stated he wont be able to get it until thursday due to him not driving and will come to [place] during his dialysis days. notified pt that he has his coreg ready to be picked up at [facility]. New RX called at [facility] pharmacy and it is delivered as meds to bed. informed case mgt that pt did not get his neb machine as ordered, just delivered a kit. Adalgisa updated the pt regrding the reason he is not getting a mireille machine. waiting for his ride. darnell brought his portable oxygen. dispense coreg of 25 mg #6 tabs in pyxis for pt to take for tonight and tomorrow.
--- NOTE | 2021-05-27 18:30 | PC.NURSE ---
called logistic care ride raul due to delay trip # called for follow-up when is the time his ride going to pick him up. they said they will call for an available staff locally to transport him.
== END 2021-05-27 21:30 | disposition home health service (06) | DRG 291 ==
LOC: ER 07:48 → CSU 09:23
PROVIDERS: Emergency Medicine; Internal Medicine; Admitting Provider Family Medicine; Emergency Provider Family Medicine; PCP Radiology Diagnostic Radiology; Visit Provider Internal Medicine
DX: I13.2 Hypertensive heart and chronic kidney disease with heart failure and with stage 5 chronic kidney disease, or end stage renal disease (principal); N18.6 End stage renal disease; J18.9 Pneumonia, unspecified organism; E87.1 Hypo-osmolality and hyponatremia; I16.1 Hypertensive emergency; J44.1 Chronic obstructive pulmonary disease with (acute) exacerbation; I50.32 Chronic diastolic (congestive) heart failure; Z99.2 Dependence on renal dialysis; G47.33 Obstructive sleep apnea (adult) (pediatric); E87.70 Fluid overload, unspecified; E87.5 Hyperkalemia; Z86.73 Personal history of transient ischemic attack (TIA), and cerebral infarction without residual deficits; Z99.81 Dependence on supplemental oxygen; F17.210 Nicotine dependence, cigarettes, uncomplicated; Z79.82 Long term (current) use of aspirin; D63.1 Anemia in chronic kidney disease; I48.0 Paroxysmal atrial fibrillation; Z91.15 Patient's noncompliance with renal dialysis; F41.9 Anxiety disorder, unspecified; F32.A Depression, unspecified
CPT/HCPCS: 36415; 36600; 71045; 80053; 82550; 82805; 83605; 83735; 83880; 84100; 84145; 84443; 84484; 85025; 85610; 86140; 86403; 86706; 86803; 87040; 87070; 87205; 87340; 87449; 87635; 93005; 94640; 94664; 96365; 96366; 96367; 96372; 96375; 99285; J0743; J1644; J1956; J3370; J3490; J7050; J7512; J7626; Q3014

== ENCOUNTER 2021-06-13 09:38 | Inpatient (IN) | payer MEDICARE, MEDICAID, SELFPAY ==
[2021-06-13] VITALS (42 sets, daily range): BP systolic 124–219; BP diastolic 66–110; PULSE 77–98; RESP 5–30; TEMP 36.5–37.3; O2SAT 89–98; BMI 30.1
--- NOTE | 2021-06-13 09:53 | XR_ITS ---
WS: [id number] XR chest 1V portable [id number] REASON FOR EXAM: wheezing FINDINGS: Left internal jugular dialysis catheter with the tip at the atrial level. Alteration of the right costophrenic angle and hemidiaphragmatic contour compatible with pleural effu steff and pleural thickening. This abnormality appears to be progressive compared to the examination o f 05/25/2021. Ill-defined opacities in both lower lungs predominating on the right. These findings have not changed significantly compared to the previous study. No new findings. XR/XR chest 1V portable [id number] IMPRESSION: Abnormal chest with possibly and increase in the right pleural effusion.
--- NOTE | 2021-06-13 09:54 | ECG_ITS ---
[facility] Test Date: 2021-06-13 Pat Name: Leopoldo Schaefer Department: Room: Gender: Male Patient Educator: : 1975 Requested By: Enmanuel Luna Order Number: [id number] Roderick MD: Shanna Sosa M.D. Measurements Intervals [place] Rate: 78 P: 64 LA: 190 QRS: 3 QRSD: 96 T: 92 QT: 385 QTc: 441 Interpretive Statements SINUS RHYTHM POSSIBLE LEFT ATRIAL ENLARGEMENT [-0.1mV P-WAVE IN V1/V2] POSSIBLE LEFT VENTRICULAR HYPERTROPHY [VOLTAGE CRITERIA PLUS LAE OR QRS WIDENING] NONSPECIFIC T-WAVE ABNORMALITY WARNING: DATA QUALITY MAY AFFECT INTERPRETATION Compared to ECG 05/25/2021 12:50:21 T-wave abnormality now present ST (T wave) deviation no longer present Electronically Signed On 06-13-2021 21:45:29 CDT by Shanna Sosa M.D. [id number]
--- NOTE | 2021-06-13 09:55 | W.ED.SOB ---
HPI - SOB/Dyspnea General: Chief Complaint: Shortness of Breath/Dyspnea Stated Complaint: DIFFICULTY BREATHING Time Seen by Provider: 06/13/21 09:44 History of Present Illness: HPI Narrative: 46-year-old male presents emergency department chief complaint of having progressive shortness of breath and difficulty breathing. Patient reports of a known history of congestive heart failure as well as COPD reports no prior history of any cardiac stenting or open heart surgery. The patient reports he has had progressive shortness of breath and difficulty breathing has been ongoing for the last couple of days he reports he normally is on home oxygen. He reports he had a recent pneumonia in the last 2 to 3 weeks which he had a course of Levaquin for. The patient does not report any having any chest pain with shortness of breath or palpitations reporting no additional swelling or edema in his legs reporting no other associated symptoms. Patient does report he is a hemodialysis patient last dialysis was done yesterday reports she is unsure of his dry weight reports he does not believe this is related to his renal issues. Associated symptoms: Deny abdominal pain, chest pain, extremity pain, fever(s), nausea, palpitations or vomiting Review of Systems General: Reports: 10 or more systems reviewed and unremarkable except in HPI and below Const: Denies: fever(s), chills, fatigue or malaise Eyes: Denies: change in vision or blurry vision Card: Denies: chest pain or palpitations Resp: Reports: dyspnea, productive cough and wheezing GI: Denies: abdominal pain, nausea or vomiting : Denies: flank pain Musc: Denies: extremity pain or extremity swelling Skin/Breast: Denies: rash or pruritus Neuro: Denies: headache(s) Psych: Denies: anxiety or depression Gene/Lymph: Denies: easy bleeding All/Imm: Denies: urticaria, throat swelling or facial swelling PFSH ED PFSH: Medical History Acute respiratory failure with hypoxia Anemia Anxiety and depression Atrial fibrillation Atrial fibrillation Chest pain COPD (chronic obstructive pulmonary disease) Reports he is on 4 L of oxygen at home COPD (chronic obstructive pulmonary disease) CRF (chronic renal failure) Diastolic CHF Elevated troponin Encounter to establish care End stage chronic kidney disease ESRD on dialysis GERD (gastroesophageal reflux disease) Hypertension Hypertension Hypertension screen Hypoxia Insomnia Lower respiratory tract infection Resistant hypertension Sebaceous cyst Vitamin D deficiency Surgical History H/O circumcision H/O hand surgery right hand with hardware Presence of peritoneal dialysis catheter S/P dialysis catheter insertion (12/12/19) Removed on 04/04/2020 S/P hemodialysis catheter insertion Family History Other Adopted Denies family history of Anesthesia complication Bleeding disorder Social History Smoking and tobacco status: current every day smoker (1ppd X26 years) cigarettes [ Other cigarette details: On and off quitting and restarting] Alcohol intake: never Household members: significant other Marital status: Single Current occupational status: disabled History of recent travel: Yes Details: [place] Out of state: Yes Physical Exam Narrative: EXAM NARRATIVE: Patient appears to be in mild respiratory distress moderate expiratory wheezing noted bilaterally no wheeze crackles or rhonchi rales noted moderate tachypnea apparent respiratory rates in the high 20s Const: COMMON NORMALS: patient oriented x3 and healthy appearing HENMT: COMMON NORMALS: normocephalic and atraumatic HEAD & SCALP: normocephalic and atraumatic Eye: COMMON NORMALS: Equal, round and reactive pupils present and EOMs intact bilaterally PUPIL: Yes Equal, round and reactive pupils present Neck/C-Spine: COMMON NORMALS: full ROM, supple and no JVD Lymph: LYMPHATIC: no lymphadenopathy noted Chest: COMMONS NORMALS: normal inspection of the chest and normal palpation of entire chest wall Resp: COMMON NORMALS: normal respiratory effort and No retractions EFFORT & INSPECTION: Yes able to speak in complete sentences and Yes symmetric chest movement AUSCULTATION: wheezes and bronchial breath sounds Cardio: COMMON NORMALS: no JVD, regular rate and regular rhythm RATE: regular rate RHYTHM: regular rhythm GI: COMMON NORMALS: Normal to inspection, nondistended, normoactive bowel sounds present, Soft to palpation and non-tender INSPECTION: Yes normal to inspection PALPATION: Yes Soft to palpation : COMMON NORMALS: Yes no CVA tenderness BLADDER/KIDNEY EXAM: Yes no CVA tenderness Back/Pelvis: COMMON NORMALS: no CVA tenderness Extremity: COMMON NORMALS: normal to inspection and full ROM Neuro: COMMON NORMALS: patient oriented x3, CN's II-XII intact bilaterally, moves all extremities and no focal motor deficits Psych: COMMON NORMALS: mental status grossly normal, Normal thought process present, cooperative and normal affect THOUGHT PROCESS: Normal thought process present Skin: COMMON NORMALS: no rashes or lesions noted GENERAL SKIN EXAM: no rashes or lesions noted Course Vital Signs: Vital signs: Vital Signs Temperature 99.1 F 06/13/21 09:44 Pulse Rate 83 06/13/21 10:19 Respiratory Rate 20 H 06/13/21 10:13 Blood Pressure 219/110 06/13/21 15:37 Pulse Oximetry 96 06/13/21 10:13 MDM - SOB/Dyspnea Medical Decision Making Due to the patient's symptoms and condition lab work and imaging will be obtained we will continue to follow nebulizer treatment will be provided as well as steroids in light concerns of COPD exacerbation versus acute bronchitis versus CHF exacerbation are prominent. Lab Data : 06/13/21 10:23 06/13/21 12:26 Labs/Radiology: Radiology Impressions Chest X-Ray 06/13/21 09:53 IMPRESSION: Abnormal chest with possibly and increase in the right pleural effusion. Laboratory Results WBC 11.8 10^3/uL (4.0-10.0) H 06/13/21 10:23 RBC 3.55 10^6/uL (4.1-5.3) L 06/13/21 10:23 Hgb 10.9 g/dL (11.7-16.6) L 06/13/21 10:23 Hct 35.2 % (42.0-52.0) L 06/13/21 10:23 MCV 99.2 fl (80-94) H 06/13/21 10:23 MCH 30.7 pg (28.0-34.0) 06/13/21 10:23 MCHC 31.0 g/dL (30.0-36.0) 06/13/21 10:23 RDW 16.4 % (12.1-15.1) H 06/13/21 10:23 Plt Count 325 10^3/cmm (130-400) 06/13/21 10:23 MPV 9.6 fL (7.4-10.4) 06/13/21 10:23 Neut % (Auto) 76.8 % 06/13/21 10:23 Lymph % (Auto) 8.5 % 06/13/21 10:23 [place] % (Auto) 10.8 % 06/13/21 10:23 Eos % (Auto) 2.7 % 06/13/21 10:23 Baso % (Auto) 0.9 % 06/13/21 10:23 Neut # (Auto) 9.06 10^3/uL (1.8-7.7) H 06/13/21 10:23 Lymph # (Auto) 1.0 10^3/uL (0.8-4.8) 06/13/21 10:23 [place] # (Auto) 1.3 10^3/uL (0.2-0.9) H 06/13/21 10:23 Eos # (Auto) 0.3 10^3/uL (0.0-0.8) 06/13/21 10:23 Baso # (Auto) 0.1 10^3/uL (0.0-0.1) 06/13/21 10:23 Nucleated RBC % (auto) 0 % 06/13/21 10:23 Nucleated RBCs # 0.0 /100WBC 06/13/21 10:23 Sodium 138 mmol/L (136-145) 06/13/21 12:26 Potassium 5.2 mmol/L (3.5-5.1) H 06/13/21 12:26 Chloride 94 mmol/L (98-107) L 06/13/21 12:26 Carbon Dioxide 27 mmol/L (22-29) 06/13/21 12:26 Anion Gap 22.2 (5-19) H 06/13/21 12:26 BUN 40 mg/dL (6-20) H 06/13/21 12:26 Creatinine 7.3 mg/dL (0.7-1.2) H* 06/13/21 12:26 GFR Calculation 8.0 mL/min (90-130) L 06/13/21 12:26 Glucose 87 mg/dL (65-115) 06/13/21 12:26 POC Glucose 84 mg/dL (70-110) 06/13/21 10:14 Calculated Osmolality 295 mOsm/kg (285-295) 06/13/21 12:26 Lactic Acid 0.5 mmol/L (0.5-2.2) 06/13/21 12:26 Calcium 9.4 mg/dL (8.5-10.5) 06/13/21 12:26 Total Bilirubin 0.4 mg/dL (0.15-1.2) 06/13/21 12:26 AST 13 U/L (0-40) 06/13/21 12:26 ALT 11 U/L (0-41) 06/13/21 12:26 Alkaline Phosphatase 96 IU/L (40-130) 06/13/21 12:26 Troponin T Baseline 72 ng/L (0-15) H 06/13/21 12:26 Troponin T 120 Minute 67.16 ng/L (0-15) H 06/13/21 14:50 Delta Troponin T -4.84 ABS# (0-10) L 06/13/21 14:50 NT-Pro-B Natriuret Pep 20466 pg/mL (0-125) H 06/13/21 12:26 Total Protein 7.3 g/dL (6.6-8.7) 06/13/21 12:26 Albumin 4.2 g/dL (3.5-5.2) 06/13/21 12: Globulin 3.1 g/dL (1.3-4.6) 06/13/21 12:26 Influenza Type A Ag Negative (Negative) 06/13/21 10:23 Influenza Type B Ag Negative (Negative) 06/13/21 10:23 Discharge Plan Discharge Condition: Stable Prescriptions: No Action Velphoro 500 mg tablet,chewable See Rx Instructions .ROUTE .COMPLEX 0RF Rx Instructions: 3 tabs po with meals and 2-3 tabs po with snacks hydroxyzine HCl 25 mg tablet 25 mg PO BID PRN (Reason: itching) 30 Days Qty: 60 0RF Yupelri 175 mcg/3 mL solution for nebulization 175 mcg inhalation DAILY 0RF RenaPlex-D 800 mcg-12.5 mg -2,000 unit tablet 1 tab PO DAILY 0RF (DME) Home oxygen See Rx Instructions .Route .MEDSUPPLY Qty: 1 0RF Rx Instructions: As directed budesonide-formoterol [Symbicort] 160-4.5 mcg/actuation HFA aerosol inhaler 2 puff inhalation BID 30 Days Qty: 10.2 2RF albuterol sulfate [Ventolin HFA] 90 mcg/actuation HFA aerosol inhaler 2 inh inhalation Q4H PRN (Reason: shortness of breath or wheezing) Qty: 8.5 2RF atorvastatin 40 mg tablet 40 mg PO QAM Qty: 90 1RF isosorbide mononitrate 120 mg tablet extended release 24 hr 120 mg PO DAILY Qty: 90 1RF pantoprazole 40 mg tablet,delayed release (DR/EC) 40 mg PO BID Qty: 180 1RF citalopram [Celexa] 10 mg tablet 10 mg PO QAM Qty: 30 0RF trazodone 50 mg tablet 50 mg PO BEDTIME 0RF fluticasone propionate 50 mcg/actuation spray,suspension 1 spray INTRANASAL DAILY PRN (Reason: Allergy Symptoms) 0RF diltiazem HCl 240 mg capsule,extended release 24hr 240 mg PO DAILY Qty: 90 0RF ipratropium-albuterol 0.5 mg-3 mg(2.5 mg base)/3 mL solution for nebulization 3 ml inhalation Q8H PRN (Reason: shortness of breath or wheezing) Qty: 90 2RF carvedilol [Coreg] 25 mg tablet See Rx Instructions .ROUTE .COMPLEX Qty: 180 1RF Rx Instructions: 50 mg orally twice a day except on dialysis days (thu,thu,thu) takes 50mg daily hydralazine 100 mg tablet 100 mg PO TID 0RF nicotine 21 mg/24 hr patch 24 hour 1 patch transdermal BEDTIME PRN (Reason: Smoking Cessation) 0RF ondansetron HCl 8 mg tablet 8 mg PO Q8H PRN (Reason: Nausea And Vomiting) 0RF acetaminophen 500 mg Tablet 1,000 mg PO Q4H PRN (Reason: Pain) 0RF budesonide 0.5 mg/2 mL suspension for nebulization 0.5 mg inhalation BID PRN (Reason: unknown) 0RF Rx Instructions: Rinse mouth after treatment clonidine HCl 0.3 mg tablet See Rx Instructions .ROUTE .COMPLEX 0RF Rx Instructions: 0.3 mg orally three times a day except on dialysis days (thu,thu,thu) take 0.3mg twice a day aspirin 81 mg tablet,delayed release (DR/EC) 81 mg PO QAM 0RF Referrals: Ricardo Stack MD [Primary Care Provider] - Coding Level of Care Code ED Site Supervising Technical Operator for Chg Fwd Exam Comprehensive
[2021-06-13] MEDS: ipratropium-albuterol 3 mL Neb INHALATION (10:11)
--- NOTE | 2021-06-13 10:22 | PC.NURSE ---
pt is on continuous spo2, nibp, and cm.
[2021-06-13] MEDS: sodium chloride 0.9% 500 ML 999 ML IV (10:23)
[2021-06-13 10:35] LABS: Glucose Point of Care 84 mg/dL (70-110)
[2021-06-13 10:39] LABS: Basophils # 0.1 10^3/uL (0.0-0.1); Basophils % 0.9 %; Eosinophils # 0.3 10^3/uL (0.0-0.8); Eosinophils % 2.7 %; Hematocrit 35.2 % (42.0-52.0); Hemoglobin 10.9 g/dL (11.7-16.6); Lymphocytes % 8.5 %; Mean Corpuscular Hemoglobin 30.7 pg (28.0-34.0); Mean Corpuscular Volume 99.2 fl (80-94); Mean Platelet Volume 9.6 fL (7.4-10.4); Monocytes # 1.3 10^3/uL (0.2-0.9); Monocytes % 10.8 %; Neutrophils # 9.06 10^3/uL (1.8-7.7); Neutrophils % 76.8 %; Nucleated Red Blood Cells % 0 %; Platelet Count 325 10^3/cmm (130-400); Red Blood Count 3.55 10^6/uL (4.1-5.3); Red Cell Distribution Width 16.4 % (12.1-15.1); White Blood Count 11.8 10^3/uL (4.0-10.0)
--- NOTE | 2021-06-13 10:52 | PC.NURSE ---
WHILE AT BEDSIDE PT IS RESTING IN BED SUPINE AND HAS SONOROUS BREATHING WITH O2 SATS ON 4 L AT 86%. PT AROUSED VIA LIGHT PHYSICAL STIMULI PT INCREASED SPO2 TO 6L VIA NC SPO2 INCREASED TO 91% INFORMED DR. LINARES VERBALIZED UNDERSTANDING NO FURTHER ORDERS.
[2021-06-13 10:57] LABS: Influenza A by IFA Negative (Negative); Influenza B by IFA Negative (Negative)
--- NOTE | 2021-06-13 11:54 | ECG_ITS ---
[facility] Test Date: 2021-06-13 Pat Name: Leopoldo Schaefer Department: Room: Gender: Male Configuration Management Consultant: : 1975 Requested By: Enmanuel Luna Order Number: [id number] Roderick MD: Shanna Sosa M.D. Measurements Intervals [place] Rate: P: RI: QRS: QRSD: T: QT: QTc: Interpretive Statements Normal sinus rhythm. Right bundle branch block pattern. Nonspecific T wave changes ATYPICAL ECG WARNING: DATA QUALITY MAY AFFECT INTERPRETATION Nonspecific T wave changes Compared to ECG 06/13/2021 09:04:34 Sinus rhythm no longer present T-wave abnormality no longer present Electronically Signed On 06-13-2021 22:03:58 CDT by Shanna Sosa M.D. [id number]
[2021-06-13 13:08] LABS: Troponin(5th) Baseline 72 ng/L (0-15)
[2021-06-13 13:09] LABS: Lactic Sepsis W/Reflex 0.5 mmol/L (0.5-2.2)
[2021-06-13 13:15] LABS: Alanine Aminotransferase 11 U/L (0-41); Albumin Level 4.2 g/dL (3.5-5.2); Alkaline Phosphatase 96 IU/L (40-130); Anion Gap 22.2 (5-19); Aspartate Amino Transferase 13 U/L (0-40); Blood Urea Nitrogen 40 mg/dL (6-20); Calcium 9.4 mg/dL (8.5-10.5); Carbon Dioxide 27 mmol/L (22-29); Chloride 94 mmol/L (98-107); Globulin 3.1 g/dL (1.3-4.6); Glucose 87 mg/dL (65-115); Osmolality Calculated 295 mOsm/kg (285-295); Potassium 5.2 mmol/L (3.5-5.1); Sodium 138 mmol/L (136-145); Total Bilirubin 0.4 mg/dL (0.15-1.2); Total Protein 7.3 g/dL (6.6-8.7)
[2021-06-13 13:42] LABS: NT Pro B Type Natriuretic Pept 35102 pg/mL (0-125)
[2021-06-13] MEDS: hyDRALAzine 20 mg/mL INJ 1 mL 10 MG IVP (14:14)
--- NOTE | 2021-06-13 14:21 | PC.NURSE ---
WHILE AT BEDSIDE PROVIDED PT WITH FOOD PER PT REQUEST AND DR. VIJAY AMEZCUA. HE DENIES ANY FURTHER NEEDS AT THIS TIME.
--- NOTE | 2021-06-13 14:23 | PC.PHAR ---
pts verified the pts medication-pts states the pts lasix and metolazone was dced last week by -pts states the pts lisinopril,nifedipine and eliquis were all dced a while ago-
[2021-06-13 15:32] LABS: Troponin 5 2HR 67.16 ng/L (0-15)
[2021-06-13 15:34] LABS: Troponin 5 2HR Delta -4.84 ABS# (0-10)
[2021-06-13] MEDS: cloNIDine 0.1 mg Tablet PO (15:37)
[2021-06-13] MEDS: labetalol 5 mg/mL SDV 20mL 20 MG IVP (15:38)
--- NOTE | 2021-06-13 15:54 | ECG_ITS ---
[facility] Test Date: 2021-06-13 Pat Name: Leopoldo Schaefer Department: Room: Gender: Male Digital Program Manager: : 1975 Requested By: Enmanuel Luna Order Number: [id number] Roderick MD: Shanna Sosa M.D. Measurements Intervals [place] Rate: 84 P: 58 [place]: 216 QRS: 4 QRSD: 102 T: 82 QT: 388 QTc: 461 Interpretive Statements SINUS RHYTHM WITH FIRST DEGREE AV BLOCK LEFT VENTRICULAR HYPERTROPHY AND ST-T CHANGE [VOLTAGE CRITERIA PLUS ST/T ABNORMALITY] WARNING: DATA QUALITY MAY AFFECT INTERPRETATION Compared to ECG 06/13/2021 10:45:29 First degree AV block now present Left ventricular hypertrophy now present ST (T wave) deviation now present Electronically Signed On 06-13-2021 22:06:01 CDT by Shanna Sosa M.D. [id number]
--- NOTE | 2021-06-13 17:02 | PC.NURSE ---
informed dr. bui of bp of 221/113 he verbalized understanding no further orders.
--- NOTE | 2021-06-13 18:40 | PC.NURSE ---
notified richi of pt bp of 233/112 vo to resume nicardipine drip.
[2021-06-13] MEDS: nicardipine 20 MG/200 ML PREMIX 50 MG IV (18:53)
[2021-06-13 19:00] LABS: Troponin 5 6HR 61.53 ng/L (0-15)
[2021-06-13 19:02] LABS: Troponin 5 6HR Delta -10.47 ng/L (0-12)
--- NOTE | 2021-06-13 19:03 | PC.NURSE ---
report given to issa rn assumed care.
[2021-06-13] MEDS: nicardipine 20 MG/200 ML PREMIX 75 MG IV (19:18)
--- NOTE | 2021-06-13 19:21 | PM.HP ---
Providers/Chief Complaint Primary Care Provider: Ricardo Stack MD Chief Complaint: DIFFICULTY BREATHING History of Present Illness Leopoldo Schaefer is a 46 year old male ?with past medical history of COPD, sleep apnea, end-stage renal disease on dialysis Thursday, Atrial fibrillation,Diastolic CHF, Resistant hypertension , came in with chief complaint of worsening shortness of breath started this morning, he was also complaining of chest tightness denies any cough , fever ,? chills , nausea ,vomiting , abdominal pain.? Last dialysis on Thursday. Upon arrival in the ER he was found to be hypertensive urgency: With systolic blood pressure in 220s as well as diastolic blood pressure In 110s. Upon arrival in the ER he was worked up for above-mentioned complaint. Pertinent imaging studies: X-ray chest: Ill-defined opacities in both lower lungs predominating on the right.? EKG: Sinus rhythm with first-degree AV block Pertinent labs: WBC 11.8, H&H 10.9/ 35.2 , plt : 325 , serum sodium 138 serum potassium 5.2, BUN 40, serum creatinine :7.3 , Baseline troponin 72, 2-hour troponin 67, 2-hour delta : - 4.84 , 6-hour troponin 61 , proBNP 56328 Patient was given hydralazine 10 mg IV, labetalol 20 mg IV, clonidine 0.1 mg He was placed on nicardipine drip. Review of Systems General: Reports: 10 or more systems reviewed and unremarkable except in HPI and below Const: Denies: fever(s), chills, body aches, change in appetite or diaphoresis Card: Denies: palpitations, edema or leg pain with exertion Resp: Denies: productive cough, wheezing or pain on inspiration GI: Denies: abdominal pain, nausea, vomiting, diarrhea or constipation : Denies: flank pain or difficulty urinating Musc: Denies: back pain, extremity pain or extremity swelling Neuro: Denies: headache(s), difficulty walking or confusion Medications/Allergies Home Medications Medication Instructions Recorded Confirmed Last Taken Type vit B,C-folic ac 800 mcg-zinc 12.5 1 tab PO DAILY 06/09/19 06/13/21 05/24/21 History mg-selen-D3 2,000 unit-vit E tablet (RenaPlex-D) Home oxygen #1 ea 08/07/20 06/13/21 Unknown Rx sucroferric oxyhydroxide 500 mg See Rx Instructions .ROUTE .COMPLEX 11/12/20 06/13/21 05/24/21 History chewable tablet (Velphoro) budesonide-formoterol HFA 160 2 puff INHALATION BID 30 Days 12/28/20 06/13/21 05/24/21 Rx mcg-4.5 mcg/actuation aerosol #10.2 g inhaler (Symbicort) revefenacin 175 mcg/3 mL solution 175 mcg INHALATION DAILY 01/16/21 06/13/21 Unknown History for nebulization (Yupelri) albuterol sulfate 90 mcg/actuation 2 inh INHALATION Q4H PRN #8.5 g 01/28/21 06/13/21 Unknown Rx aerosol inhaler (Ventolin HFA) acetaminophen 500 mg tablet 1,000 mg PO Q4H PRN 02/15/21 06/13/21 Unknown History budesonide 0.5 mg/2 mL suspension 0.5 mg INHALATION BID PRN 02/15/21 06/13/21 Unknown History for nebulization ondansetron HCl 8 mg tablet 8 mg PO Q8H PRN 02/15/21 06/13/21 Unknown History hydroxyzine HCl 25 mg tablet 25 mg PO BID PRN 30 Days #60 tab 02/19/21 06/13/21 Unknown Rx aspirin 81 mg tablet,delayed 81 mg PO QAM 04/03/21 06/13/21 05/24/21 History release clonidine HCl 0.3 mg tablet See Rx Instructions .ROUTE .COMPLEX 04/03/21 06/13/21 06/12/21 History atorvastatin 40 mg tablet 40 mg PO QAM #90 tab 05/09/21 06/13/21 05/24/21 Rx isosorbide mononitrate 120 mg 120 mg PO DAILY #90 tab 05/09/21 06/13/21 05/24/21 Rx tablet,extended release 24 hr pantoprazole 40 mg tablet,delayed 40 mg PO BID #180 tab 05/09/21 06/13/21 05/24/21 Rx release fluticasone propionate 50 1 spray INTRANASAL DAILY PRN 05/25/21 06/13/21 Unknown History mcg/actuation nasal spray,suspension trazodone 50 mg tablet 50 mg PO BEDTIME 05/25/21 06/13/21 05/24/21 History carvedilol 25 mg tablet (Coreg) See Rx Instructions .ROUTE 05/27/21 06/13/21 Unknown Rx .COMPLEX #180 tab diltiazem HCl 240 mg 240 mg PO DAILY #90 cap 05/27/21 06/13/21 Unknown Rx capsule,extended release 24 hr ipratropium 0.5 mg-albuterol 3 mg 3 ml INHALATION Q8H PRN #90 ml 05/27/21 06/13/21 Unknown Rx (2.5 mg base)/3 mL nebulization soln citalopram 10 mg tablet (Celexa) 10 mg PO QAM #30 tab 06/10/21 06/13/21 Unknown Rx hydralazine 100 mg tablet 100 mg PO TID 06/13/21 06/13/21 Unknown History nicotine 21 mg/24 hr daily 1 patch TRANSDERMAL BEDTIME PRN 06/13/21 06/13/21 06/12/21 History transdermal patch Allergies Allergy/AdvReac Type Severity Reaction Status Date / Time lisinopril Allergy swelling Verified 06/13/21 13:47 Penicillins Allergy ALGY-Hives Verified 06/11/21 15:25 tramadol Allergy ALGY-Hives Verified 06/11/21 15:25 PFSH Acute PFSH: Medical History Acute respiratory failure with hypoxia Anemia Anxiety and depression Atrial fibrillation Atrial fibrillation Chest pain COPD (chronic obstructive pulmonary disease) Reports he is on 4 L of oxygen at home COPD (chronic obstructive pulmonary disease) CRF (chronic renal failure) Diastolic CHF Elevated troponin Encounter to establish care End stage chronic kidney disease ESRD on dialysis GERD (gastroesophageal reflux disease) Hypertension Hypertension Hypertension screen Hypoxia Insomnia Lower respiratory tract infection Resistant hypertension Sebaceous cyst Vitamin D deficiency Surgical History H/O circumcision H/O hand surgery right hand with hardware Presence of peritoneal dialysis catheter S/P dialysis catheter insertion (12/12/19) Removed on 04/04/2020 S/P hemodialysis catheter insertion Family History Other Adopted Denies family history of Anesthesia complication Bleeding disorder Social History (Reviewed 06/13/21 @ 09:57 by Enmanuel Monge Smoking and tobacco status: current every day smoker (1ppd X26 years) cigarettes [ Other cigarette details: On and off quitting and restarting] Alcohol intake: never Household members: significant other Marital status: Single Current occupational status: disabled History of recent travel: Yes Details: [place] Out of state: Yes Vitals/I&O/Wt Last Vital Signs Temp 99.1 F 06/13/21 09:44 Pulse 83 06/13/21 10:19 Resp 20 H 06/13/21 10:13 BP 219/110 06/13/21 15:37 Pulse Ox 96 06/13/21 10:13 06/13/21 06/13/21 06/13/21 06:59 14:59 22:59 Intake Total 20.833 / 20.833 Balance 20.833 / 20.833 Weight last 48 hrs Weight 95.254 kg Physical Exam Const: COMMON NORMALS: patient oriented x3 HENMT: COMMON NORMALS: normocephalic and atraumatic HEAD & SCALP: normocephalic and atraumatic Chest: COMMONS NORMALS: normal inspection of the chest and normal palpation of entire chest wall CHEST: Yes Symmetrical chest wall rise Resp: COMMON NORMALS: normal respiratory effort, No retractions, No use of accessory muscles and clear to auscultation bilaterally EFFORT & INSPECTION: Yes symmetric chest movement AUSCULTATION: clear to auscultation bilaterally Cardio: COMMON NORMALS: regular rate, regular rhythm, S1 normal heart sound present, S2 normal heart sound present, No gallops present (Cardio), No murmurs present (Cardio), No rub (Cardio) and Peripheral pulses 2+ throughout RATE: regular rate RHYTHM: regular rhythm HEART SOUNDS: S1 normal heart sound present and S2 normal heart sound present PERIPHERAL PULSES: Peripheral pulses 2+ throughout GI: COMMON NORMALS: Normal to inspection, nondistended, normoactive bowel sounds present, Soft to palpation, non-tender, No hepatosplenomegaly present and no masses AUSCULTATION: Yes normoactive bowel sounds PALPATION: Yes Soft to palpation and Yes No hepatosplenomegaly present RECTAL EXAM: Yes deferred Extremity: COMMON NORMALS: no clubbing, cyanosis or edema and no pedal edema Neuro: COMMON NORMALS: patient oriented x3 Data : 06/13/21 10:23 06/13/21 12:26 A&P Assessment and plan (1) Hypertensive urgency: Status: Acute (2) ESRD (end stage renal disease): Status: Acute (3) Atrial fibrillation/flutter: Status: Acute (4) Acute hyperkalemia: Status: Acute (5) COPD (chronic obstructive pulmonary disease): Status: Acute (6) Elevated troponin: Status: Acute Plan 46 year old male ?with past medical history of COPD, sleep apnea, end-stage renal disease on dialysis Thursday, Atrial fibrillation,Diastolic CHF, Resistant hypertension , came in with chief complaint of worsening shortness of breath started this morning, Assessment: Hypertensive urgency: Patient is currently on nicardipine drip, Will resume home medication, clonidine, hydralazine, diltiazem, Continue to monitor blood pressure Telemetry monitoring #COPD: Currently on exacerbation Continue albuterol inhaler as needed Continue Advair inhaler Supplemental oxygen as needed #End-stage renal disease D/D Thursday We will consult nephrology in the morning for routine hemodialysis #History of paroxysmal atrial fibrillation Currently in sinus Continue diltiazem Patient is not on anticoagulation #History of HFpEF : Currently compensated #DVT prophylaxis: On heparin #CODE STATUS: Full code Attestations Medical Necessity Statement*: Patient needs to be in hospital for the management of hypertensive urgency. Anticipated length of stay greater than 2 midnights. Time Spent in Patient Care: Greater than 35 minutes (>than 50% of time spent in counselling and/or direct pt care on unit). Coding Level of Care Code Acute Manifest/Order Organizer Print Orders for Shilpa Phillips Diagnoses Hypertensive urgency I16.0 ESRD (end stage renal disease) N18.6 Atrial fibrillation/flutter Acute hyperkalemia E87.5 COPD (chronic obstructive pulmonary disease) J44.9 Elevated troponin R77.8
[2021-06-13] MEDS: minoxidil 10 mg Tablet 5 MG PO (19:57)
[2021-06-13] MEDS: heparin 5,000 unit/mL INJ 1 mL 5000 UNIT SUBCUT (19:58)
--- NOTE | 2021-06-13 20:44 | PC.NURSE ---
Pt. arrived to room ICU 8 from ER. Pt. is comfortable with no complaints or needs expressed at this time.
[2021-06-13] MEDS: hyDRALAzine 50 mg Tablet 100 MG PO (21:17)
[2021-06-13] MEDS: cloNIDine 0.1 mg Tablet 0.3 MG PO (21:18)
[2021-06-13] MEDS: trazodone 50 mg Tablet PO (21:18)
[2021-06-13] MEDS: hyDROXYzine 25 mg Capsule PO (21:19)
[2021-06-13] MEDS: nicardipine 20 MG/200 ML PREMIX 150 MG IV (23:00)
--- NOTE | 2021-06-13 23:11 | ECG_ITS ---
[facility] Test Date: 2021-06-13 Pat Name: Leopoldo Schaefer Department: Room: ICU08 Gender: Male Repairer Kiln Car: : 1975 Requested By: Mukesh Salazar Order Number: [id number] Roderick MD: Lane Lloyd M.D. Measurements Intervals [place] Rate: 87 P: 63 [place]: 194 QRS: 8 QRSD: 102 T: 97 QT: 383 QTc: 462 Interpretive Statements SINUS RHYTHM ST DEVIATION AND MODERATE T-WAVE ABNORMALITY, CONSIDER LATERAL ISCHEMIA [-0.1+ mV T-WAVE IN I/aVL/V5/V6] Compared to ECG 06/13/2021 15:04:28 T-wave abnormality now present Possible ischemia now present First degree AV block no longer present Left ventricular hypertrophy no longer present ST (T wave) deviation no longer present Electronically Signed On 06-14-2021 20:09:[address] Lloyd M.D. [id number] f
--- NOTE | 2021-06-13 23:17 | PC.NURSE ---
Pt. complained of 6/10 chest pain that went up to base of neck. EKG obtained per RT. Called Dr. Salazar and informed of patient status. Recieved orders and will implement
[2021-06-13] MEDS: morphine 4 mg/mL SDV 1 mL 2 MG IVP (23:28)
[2021-06-14] VITALS (77 sets, daily range): BP systolic 126–191; BP diastolic 65–116; PULSE 83–115; RESP 12–35; TEMP 36.4–37.2; O2SAT 69–96
[2021-06-14] MEDS: ondansetron 2 mg/ML SDV 2 mL 4 MG IVP (01:25)
[2021-06-14] MEDS: nicardipine 20 MG/200 ML PREMIX 50 MG IV (01:25)
[2021-06-14 04:54] LABS: Basophils % 0.1 %; Hematocrit 31.8 % (42.0-52.0); Hemoglobin 9.9 g/dL (11.7-16.6); Lymphocytes # 0.5 10^3/uL (0.8-4.8); Lymphocytes % 2.6 %; Mean Corpuscular HGB Conc 31.1 g/dL (30.0-36.0); Mean Corpuscular Hemoglobin 30.7 pg (28.0-34.0); Mean Corpuscular Volume 98.5 fl (80-94); Monocytes # 0.6 10^3/uL (0.2-0.9); Monocytes % 3.3 %; Neutrophils % 93.4 %; Nucleated Red Blood Cells % 0 %; Platelet Count 335 10^3/cmm (130-400); Red Blood Count 3.23 10^6/uL (4.1-5.3); Red Cell Distribution Width 15.9 % (12.1-15.1); White Blood Count 18.6 10^3/uL (4.0-10.0)
[2021-06-14 05:16] LABS: Alanine Aminotransferase 9 U/L (0-41); Albumin Level 3.7 g/dL (3.5-5.2); Alkaline Phosphatase 79 IU/L (40-130); Anion Gap 20.1 (5-19); Aspartate Amino Transferase 10 U/L (0-40); Blood Urea Nitrogen 63 mg/dL (6-20); Calcium 9.5 mg/dL (8.5-10.5); Carbon Dioxide 30 mmol/L (22-29); Chloride 93 mmol/L (98-107); Globulin 3.6 g/dL (1.3-4.6); Glomerular Filtration Rate 6.4 mL/min (90-130); Glucose 112 mg/dL (65-115); Osmolality Calculated 303 mOsm/kg (285-295); Potassium 6.1 mmol/L (3.5-5.1); Sodium 137 mmol/L (136-145); Total Bilirubin 0.3 mg/dL (0.15-1.2); Total Protein 7.3 g/dL (6.6-8.7)
[2021-06-14] MEDS: heparin 5,000 unit/mL INJ 1 mL 5000 UNIT SUBCUT ×2 (07:37→20:10)
[2021-06-14] MEDS: aspirin 81 mg EC Tablet PO (08:01)
[2021-06-14] MEDS: cloNIDine 0.1 mg Tablet 0.3 MG PO ×2 (08:01→20:14)
[2021-06-14] MEDS: b-complex-vitamin c Tablet 1 EACH PO (08:01)
[2021-06-14] MEDS: isosorbide mononitrate ER 60 mg Tablet 120 MG PO (08:01)
[2021-06-14] MEDS: atorvastatin 40 mg Tablet PO (08:01)
[2021-06-14] MEDS: citalopram 20 mg Tablet 10 MG PO (08:02)
[2021-06-14] MEDS: hyDRALAzine 50 mg Tablet 100 MG PO ×2 (08:02→18:02)
[2021-06-14] MEDS: hyDROXYzine 25 mg Capsule PO ×2 (08:03→20:10)
[2021-06-14] MEDS: pantoprazole DR 40 mg Tablet PO ×2 (08:03→18:02)
--- NOTE | 2021-06-14 08:07 | PM.PN ---
Subjective Subjective: Patient was seen and examined this morning, currently off nicardipine drip, received routine hemodialysis today, Blood pressure is fairly well controlled, no other acute events. Medications: Medication Review Details: Generic Name Dose Route Start Last Admin Trade Name Staci PRN Reason Stop Dose Admin Aspirin 81 mg 06/14/21 09:00 06/14/21 08:01 Aspirin 81 Mg Ec Tablet PO 81 mg DAILY FRANCISCO Administration Atorvastatin Calci um 40 mg 06/14/21 09:00 06/14/21 08:01 Atorvastatin 40 Mg Tablet PO 40 mg DAILY FRANCISCO Administration Citalopram Hydrobr omide 10 mg 06/14/21 09:00 06/14/21 08:02 Citalopram 20 Mg Tablet PO 10 mg DAILY FRANCISCO Administration Clonidine HCl 0.3 mg 06/13/21 21:00 06/14/21 08:01 Clonidine 0.1 Mg Tablet PO 0.3 mg TID FRANCISCO Administration Heparin Sodium (Po rcine) 5,000 unit 06/13/21 20:00 06/14/21 07:37 Heparin 5,000 Un it/Ml Inj 1 Ml SUBCUT 5,000 unit Q12H FRANCISCO Administration Hydralazine HCl 100 mg 06/13/21 21:00 06/14/21 08:02 Hydralazine 50 M g Tablet PO 100 mg TID FRANCISCO Administration Hydroxyzine [place] 25 mg 06/13/21 21:00 06/14/21 08:03 Hydroxyzine 25 M g Capsule PO 25 mg BID@0900,2100 FRANCISCO Administration Nicardipine/Sodium Chloride 20 mg in 200 mls @ 0 mls/hr 06/13/21 15:15 06/14/21 03:00 Cardene IV 0 mg/hr .Q0M FRANCISCO 0 mls/hr Titration Protocol Per Protocol Isosorbide Mononit rate 120 mg 06/14/21 09:00 06/14/21 08:01 Isosorbide [place] itrate Er 60 Mg Ta blet PO 120 mg DAILY FRANCISCO Administration Morphine Sulfate 2 mg 06/13/21 23:23 06/13/21 23:28 Morphine 4 Mg/Ml Sdv 1 Ml IVP 2 mg Q4H PRN Administration SEVERE PAIN Multivitamins 1 each 06/14/21 09:00 06/14/21 08:01 I-[id number]-Ymuwbx n C Tablet PO 1 each DAILY FRANCISCO Administration Ondansetron HCl 4 mg 06/13/21 19:13 06/14/21 01:25 Ondansetron 2 Mg /Ml Sdv 2 Ml IVP 4 mg Q8H PRN Administration vomiting, or N/V if npo Pantoprazole Sodiu m 40 mg 06/14/21 09:00 06/14/21 08:[address] 40 Mg Tablet PO 40 mg BID FRANCISCO Administration Fluticasone/Salmet alejandro 1 puff 06/14/21 08:00 06/14/21 07:55 Fluticasone-Salm eterol 250-50 Disk us INHALATION 1 puff BID.RESPIRATORY S [facility] Administration Trazodone HCl 50 mg 06/13/21 21:00 06/13/21 21:18 Trazodone 50 Mg Tablet PO 50 mg BEDTIME FRANCISCO Administration Vitals/I&O/Wt Last Vital Signs Temp 98.7 F 06/14/21 05:50 Pulse 91 06/14/21 07:57 Resp 20 H 06/14/21 07:56 BP 183/91 06/14/21 08:01 Pulse Ox 94 06/14/21 07:56 06/13/21 06/14/21 06/14/21 22:59 06:59 14:59 Intake Total 220.833 / 220.833 279.167 / 500.000 Balance 220.833 / 220.833 279.167 / 500.000 Weight last 48 hrs Weight 95.254 kg Physical Exam Const: COMMON NORMALS: patient oriented x3 HENMT: COMMON NORMALS: normocephalic and atraumatic HEAD & SCALP: normocephalic and atraumatic Chest: COMMONS NORMALS: normal inspection of the chest and normal palpation of entire chest wall CHEST: Yes Symmetrical chest wall rise Resp: COMMON NORMALS: normal respiratory effort, No retractions, No use of accessory muscles and clear to auscultation bilaterally EFFORT & INSPECTION: Yes symmetric chest movement AUSCULTATION: clear to auscultation bilaterally Cardio: COMMON NORMALS: regular rate, regular rhythm, S1 normal heart sound present, S2 normal heart sound present, No gallops present (Cardio), No murmurs present (Cardio), No rub (Cardio) and Peripheral pulses 2+ throughout RATE: regular rate RHYTHM: regular rhythm HEART SOUNDS: S1 normal heart sound present and S2 normal heart sound present PERIPHERAL PULSES: Peripheral pulses 2+ throughout GI: COMMON NORMALS: Normal to inspection, nondistended, normoactive bowel sounds present, Soft to palpation, non-tender, No hepatosplenomegaly present and no masses AUSCULTATION: Yes normoactive bowel sounds PALPATION: Yes Soft to palpation and Yes No hepatosplenomegaly present RECTAL EXAM: Yes deferred Extremity: COMMON NORMALS: no clubbing, cyanosis or edema and no pedal edema Neuro: COMMON NORMALS: patient oriented x3 Data : 06/14/21 04:30 06/14/21 04:30 A&P Assessment and plan (1) Hypertensive urgency: Status: Acute (2) ESRD (end stage renal disease): Status: Acute (3) Atrial fibrillation/flutter: Status: Acute (4) Acute hyperkalemia: Status: Acute (5) COPD (chronic obstructive pulmonary disease): Status: Acute (6) Elevated troponin: Status: Acute Plan 46 year old male ?with past medical history of COPD, sleep apnea, end-stage renal disease on dialysis Thursday, Atrial fibrillation,Diastolic CHF, Resistant hypertension , came in with chief complaint of worsening shortness of breath started this morning, Assessment: Hypertensive urgency: Patient is currently on nicardipine drip, Will resume home medication, clonidine, hydralazine, diltiazem, Continue to monitor blood pressure Telemetry monitoring #COPD: Currently on exacerbation Continue albuterol inhaler as needed Continue Advair inhaler Supplemental oxygen as needed #End-stage renal disease D/D Thursday We will consult nephrology in the morning for routine hemodialysis #History of paroxysmal atrial fibrillation Currently in sinus Continue diltiazem Patient is not on anticoagulation #History of HFpEF : Currently compensated #DVT prophylaxis: On heparin #CODE STATUS: Full code Attestations Medical Necessity Statement*: Patient is to be in hospital for management of above-defined problems. Time Spent in Patient Care: Greater than 35 minutes (>than 50% of time spent in counselling and/or direct pt care on unit). Coding Level of Care Code Acute Laminating Machine Feeder for [facility] Fwd Exam Detailed Diagnoses Hypertensive urgency I16.0 ESRD (end stage renal disease) N18.6 Atrial fibrillation/flutter Acute hyperkalemia E87.5 COPD (chronic obstructive pulmonary disease) J44.9 Elevated troponin R77.8
--- NOTE | 2021-06-14 10:10 | PC.NURSE ---
Dr. Romero at bedside, this nurse asked about k being 6.1, Dr. Romero advised nephrology has been consulted and transfer orders to the med surg will be put in
--- NOTE | 2021-06-14 10:30 | PC.CHAP ---
Pastoral Care Encounter/Spiritual Assessment Type of Contact [] Declined network associate visit [] Patient/Family/Request visit [] Outpatient visit [] Follow-up visit [] Physician referral [] Code/Alert [x] Routine visit [] Staff referral [] Actively dying [x] Patient sleeping [] Family support [] [] Out of room [] Palliative care [] [] Receiving care in room [] Pre-surgical visit [] Trauma [] Long length of stay [x] ICU visit [] Other: Relational/Emotional Strength [] Patient feels connected with others/family/visitors/staff [] Distress [] Loneliness/isolation [] Abandonment Spirituality of Patient [] Person of Manjula [] Attends Gnosticism of their [place] [] Believes in Prayer [] Reads Bible or Tenriism materials [] There are Spiritual issues to be addressed Felt Hanger Interventions [x] Prayer [] Active listening [] Non-anxious presence [] Spiritual/emotional support [] Crisis/trauma care [] Spiritual counseling [] Bereavement support [] Provided bereavement packet [] Provided Bible/devotional materials [] Provided toy/stuffed animal, coloring book to patient or family member [] Provided Communion [] Anointing/[place] [] Salvation [x] Completed spiritual assessment [] Other: Impact on Illness or Injury [] Angry [] Fearful [] Anxious [] Often cries [] Exhaustion [] Unable to work [] Unable to attend rastafari [] Unable to walk/stand [] Unable to read [] Unable to drive [] Unable to eat/drink [] Unable to sleep [] Unable to be with family [] Patient intubated [] Other: Summary Time spent with patient
--- NOTE | 2021-06-14 11:44 | PC.NURSE ---
Report called to [facility]
--- NOTE | 2021-06-14 13:17 | PM.CONSULT ---
Providers/Reason For Consult Consulting Physician/Specialty*: Nehphrology Reason for Consult*: Eval for ESRD Attending Physician: Donnie Romero MD Primary Care Provider: Ricardo Stack MD History of Present Illness History of Present Illness Thank for consultation, Mr. Schaefer is well-known to us from numerous previous hospitalizations. Came in yesterday with some chest discomfort, shortness of breath, elevated blood pressure. Did well overnight with parenteral medications including nicardipine drip. Now transition to the medical floor. Did have dialysis on Thursday. Currently on Thursday, Thursday, Thursday schedule. Mild global edema, no shortness of breath at rest. No issues with his access. No uremic symptoms. Otherwise feels well. Medications/Allergies Home Medications Medication Instructions Recorded Confirmed Last Taken Type vit B,C-folic ac 800 mcg-zinc 12.5 1 tab PO DAILY 06/09/19 06/13/21 05/24/21 History mg-selen-D3 2,000 unit-vit E tablet (RenaPlex-D) Home oxygen #1 ea 08/07/20 06/13/21 Unknown Rx sucroferric oxyhydroxide 500 mg See Rx Instructions .ROUTE .COMPLEX 11/12/20 06/13/21 05/24/21 History chewable tablet (Velphoro) budesonide-formoterol HFA 160 2 puff INHALATION BID 30 Days 12/28/20 06/13/21 05/24/21 Rx mcg-4.5 mcg/actuation aerosol #10.2 g inhaler (Symbicort) revefenacin 175 mcg/3 mL solution 175 mcg INHALATION DAILY 01/16/21 06/13/21 Unknown History for nebulization (Yupelri) albuterol sulfate 90 mcg/actuation 2 inh INHALATION Q4H PRN #8.5 g 01/28/21 06/13/21 Unknown Rx aerosol inhaler (Ventolin HFA) acetaminophen 500 mg tablet 1,000 mg PO Q4H PRN 02/15/21 06/13/21 Unknown History budesonide 0.5 mg/2 mL suspension 0.5 mg INHALATION BID PRN 02/15/21 06/13/21 Unknown History for nebulization ondansetron HCl 8 mg tablet 8 mg PO Q8H PRN 02/15/21 06/13/21 Unknown History hydroxyzine HCl 25 mg tablet 25 mg PO BID PRN 30 Days #60 tab 02/19/21 06/13/21 Unknown Rx aspirin 81 mg tablet,delayed 81 mg PO QAM 04/03/21 06/13/21 05/24/21 History release clonidine HCl 0.3 mg tablet See Rx Instructions .ROUTE .COMPLEX 04/03/21 06/13/21 06/12/21 History atorvastatin 40 mg tablet 40 mg PO QAM #90 tab 05/09/21 06/13/21 05/24/21 Rx isosorbide mononitrate 120 mg 120 mg PO DAILY #90 tab 05/09/21 06/13/21 05/24/21 Rx tablet,extended release 24 hr pantoprazole 40 mg tablet,delayed 40 mg PO BID #180 tab 05/09/21 06/13/21 05/24/21 Rx release fluticasone propionate 50 1 spray INTRANASAL DAILY PRN 05/25/21 06/13/21 Unknown History mcg/actuation nasal spray,suspension trazodone 50 mg tablet 50 mg PO BEDTIME 05/25/21 06/13/21 05/24/21 History carvedilol 25 mg tablet (Coreg) See Rx Instructions .ROUTE 05/27/21 06/13/21 Unknown Rx .COMPLEX #180 tab diltiazem HCl 240 mg 240 mg PO DAILY #90 cap 05/27/21 06/13/21 Unknown Rx capsule,extended release 24 hr ipratropium 0.5 mg-albuterol 3 mg 3 ml INHALATION Q8H PRN #90 ml 05/27/21 06/13/21 Unknown Rx (2.5 mg base)/3 mL nebulization soln citalopram 10 mg tablet (Celexa) 10 mg PO QAM #30 tab 06/10/21 06/13/21 Unknown Rx hydralazine 100 mg tablet 100 mg PO TID 06/13/21 06/13/21 Unknown History nicotine 21 mg/24 hr daily 1 patch TRANSDERMAL BEDTIME PRN 06/13/21 06/13/21 06/12/21 History transdermal patch Allergies Allergy/AdvReac Type Severity Reaction Status Date / Time lisinopril Allergy swelling Verified 06/13/21 13:47 Penicillins Allergy ALGY-Hives Verified 06/11/21 15:25 tramadol Allergy ALGY-Hives Verified 06/11/21 15:25 Current Medications Generic Name Dose Route Start Last Admin Trade Name Staci PRN Reason Stop Dose Admin Aspirin 81 mg 06/14/21 09:00 06/14/21 08:01 Aspirin 81 Mg Ec Tablet PO 81 mg DAILY FRANCISCO Administration Atorvastatin Calcium 40 mg 06/14/21 09:00 06/14/21 08:01 Atorvastatin 40 Mg Tablet PO 40 mg DAILY FRANCISCO Administration Citalopram Hydrobromide 10 mg 06/14/21 09:00 06/14/21 08:02 Citalopram 20 Mg Tablet PO 10 mg DAILY FRANCISCO Administration Clonidine HCl 0.3 mg 06/13/21 21:00 06/14/21 08:01 Clonidine 0.1 Mg Tablet PO 0.3 mg TID FRANCISCO Administration Heparin Sodium (Porcine) 5,000 unit 06/13/21 20:00 06/14/21 07:37 Heparin 5,000 Unit/Ml Inj 1 Ml SUBCUT 5,000 unit Q12H FRANCISCO Administration Hydralazine HCl 100 mg 06/13/21 21:00 06/14/21 08:02 Hydralazine 50 Mg Tablet PO 100 mg TID FRANCISCO Administration Hydroxyzine Pamoate 25 mg 06/13/21 21:00 06/14/21 08:03 Hydroxyzine 25 Mg Capsule PO 25 mg BID@0900,2100 FRANCISCO Administration Nicardipine/Sodium Chloride 20 mg in 200 mls @ 0 mls/hr 06/13/21 15:15 06/14/21 03:00 Cardene IV 0 mg/hr .Q0M FRANCISCO 0 mls/hr Titration Protocol Per Protocol Isosorbide Mononitrate 120 mg 06/14/21 09:00 06/14/21 08:01 Isosorbide Mononitrate Er 60 Mg Tablet PO 120 mg DAILY FRANCISCO Administration Morphine Sulfate 2 mg 06/13/21 23:23 06/13/21 23:28 Morphine 4 Mg/Ml Sdv 1 Ml IVP 2 mg Q4H PRN Administration SEVERE PAIN Multivitamins 1 each 06/14/21 09:00 06/14/21 08:01 Q-Uklitmw-Ehsqlzf C Tablet PO 1 each DAILY FRANCISCO Administration Ondansetron HCl 4 mg 06/13/21 19:13 06/14/21 01:25 Ondansetron 2 Mg/Ml Sdv 2 Ml IVP 4 mg Q8H PRN Administration vomiting, or N/V if npo Pantoprazole Sodium 40 mg 06/14/21 09:00 06/14/21 08:[address] 40 Mg Tablet PO 40 mg BID FRANCISCO Administration Fluticasone/Salmeterol 1 puff 06/14/21 08:00 06/14/21 07:55 Fluticasone-Salmeterol 250-50 Diskus INHALATION 1 puff BID.RESPIRATORY FRANCISCO Administration Trazodone HCl 50 mg 06/13/21 21:00 06/13/21 21:18 Trazodone 50 Mg Tablet PO 50 mg BEDTIME FRANCISCO Administration PFSH Acute PFSH: Medical History Acute respiratory failure with hypoxia Anemia Anxiety and depression Atrial fibrillation Atrial fibrillation Chest pain COPD (chronic obstructive pulmonary disease) Reports he is on 4 L of oxygen at home COPD (chronic obstructive pulmonary disease) CRF (chronic renal failure) Diastolic CHF Elevated troponin Encounter to establish care End stage chronic kidney disease ESRD on dialysis GERD (gastroesophageal reflux disease) Hypertension Hypertension Hypertension screen Hypoxia Insomnia Lower respiratory tract infection Resistant hypertension Sebaceous cyst Vitamin D deficiency Surgical History H/O circumcision H/O hand surgery right hand with hardware Presence of peritoneal dialysis catheter S/P dialysis catheter insertion (12/12/19) Removed on 04/04/2020 S/P hemodialysis catheter insertion Family History Other Adopted Denies family history of Anesthesia complication Bleeding disorder Social History Smoking and tobacco status: current every day smoker (1ppd X26 years) cigarettes [ Other cigarette details: On and off quitting and restarting] Alcohol intake: never Household members: significant other Marital status: Single Current occupational status: disabled History of recent travel: Yes Details: [place] Out of state: Yes Vitals/I&O/Wt Last Vital Signs Temp 98.7 F 06/14/21 05:50 Pulse 93 06/14/21 08:00 Resp 20 H 06/14/21 07:56 BP 183/91 06/14/21 08:01 Pulse Ox 94 06/14/21 08:00 0306/14/21 06/14/21 22:59 06:59 14:59 Intake Total 220.833 / 220.833 279.167 / 500.000 150 / 150 Balance 220.833 / 220.833 279.167 / 500.000 150 / 150 Weight last 48 hrs Weight 95.254 kg Physical Exam Narrative: Constitutional: Awake, comfortable HEENT: Wet mucosa, no jvp, non icteric Lungs: Bilaterally clear without discernible wheeze, rales in all lung zones CVS: S1 S2, no murmurs Abdo: Soft, BS ok Ext 4: 2-3+ edema, peripheral perfusion with no cyanosis Neurological: Grossly non-focal Data : 06/14/21 04:30 06/14/21 04:30 A&P Assessment and plan (1) ESRD (end stage renal disease): 1. ESRD Dialysis today, 2K bath, ultrafiltration 4 L dose medication for GFR less than 15 on dialysis 2. Hemodynamics Hypertensive urgency to use of fluid overload. We will take a full liters today, he should have his dry weight brought down over the next few weeks as an outpatient. 3. Chemistry Hyperkalemia, should correct with dialysis 4. Chronic ESRD issues To be managed as outpatient as part of standard monthly care. Okay for discharge from my perspective after dialysis today. Matthew Holley MD Nephrology [phone] Patient seen and examined via telemedicine, with the assistance of the bedside RN > 25 min spent in evaluation and mgmt of patient Status: Acute Coding Level of Care Code Acute Radiographer Mammographer for [facility] Fwd Diagnoses ESRD (end stage renal disease) N18.6
--- NOTE | 2021-06-14 15:22 | PC.NURSE ---
Pt refusing telemetry. Educated on importance of telemetry reguarding 6.2 K.
--- NOTE | 2021-06-14 18:05 | PC.NURSE ---
Verbal orders to hold clonidine d/t 120/80's blood pressure at this time.
[2021-06-14] MEDS: hyDRALAzine 50 mg Tablet PO (20:05)
[2021-06-14] MEDS: trazodone 50 mg Tablet PO (20:10)
[2021-06-14] MEDS: dilTIAZem ER (24HR) 240 mg Capsule PO (20:10)
[2021-06-15] VITALS: BP 111/56; PULSE 110; RESP 17; TEMP 37.6; O2SAT 96
[2021-06-15 04:00] VITALS: BP 149/81; PULSE 112; RESP 20; TEMP 37.4; O2SAT 92
[2021-06-15 05:56] LABS: Basophils # 0.1 10^3/uL (0.0-0.1); Basophils % 0.5 %; Eosinophils # 0.1 10^3/uL (0.0-0.8); Eosinophils % 0.7 %; Hematocrit 31.1 % (42.0-52.0); Hemoglobin 9.3 g/dL (11.7-16.6); Lymphocytes # 1.7 10^3/uL (0.8-4.8); Lymphocytes % 13.4 %; Mean Corpuscular HGB Conc 29.9 g/dL (30.0-36.0); Mean Corpuscular Hemoglobin 30.9 pg (28.0-34.0); Mean Corpuscular Volume 103.3 fl (80-94); Monocytes # 1.1 10^3/uL (0.2-0.9); Monocytes % 8.7 %; Neutrophils # 9.78 10^3/uL (1.8-7.7); Neutrophils % 76.4 %; Nucleated Red Blood Cells % 0 %; Platelet Count 305 10^3/cmm (130-400); Red Blood Count 3.01 10^6/uL (4.1-5.3); Red Cell Distribution Width 15.8 % (12.1-15.1); White Blood Count 12.8 10^3/uL (4.0-10.0)
[2021-06-15 06:21] LABS: Alanine Aminotransferase 9 U/L (0-41); Albumin Level 3.4 g/dL (3.5-5.2); Alkaline Phosphatase 76 IU/L (40-130); Anion Gap 20.8 (5-19); Aspartate Amino Transferase 11 U/L (0-40); Blood Urea Nitrogen 50 mg/dL (6-20); Calcium 9.5 mg/dL (8.5-10.5); Carbon Dioxide 28 mmol/L (22-29); Chloride 95 mmol/L (98-107); Globulin 3.4 g/dL (1.3-4.6); Glomerular Filtration Rate 7.9 mL/min (90-130); Glucose 88 mg/dL (65-115); Osmolality Calculated 299 mOsm/kg (285-295); Potassium 5.8 mmol/L (3.5-5.1); Sodium 138 mmol/L (136-145); Total Bilirubin 0.2 mg/dL (0.15-1.2); Total Protein 6.8 g/dL (6.6-8.7)
[2021-06-15 07:56] VITALS: BP 152/107; PULSE 119; RESP 16; TEMP 36.7; O2SAT 94
[2021-06-15 08:04] VITALS: PULSE 109; RESP 20; O2SAT 94
[2021-06-15] MEDS: isosorbide mononitrate ER 60 mg Tablet 120 MG PO (11:15)
[2021-06-15] MEDS: aspirin 81 mg EC Tablet PO (11:16)
[2021-06-15] MEDS: hyDROXYzine 25 mg Capsule PO (11:16)
[2021-06-15] MEDS: b-complex-vitamin c Tablet 1 EACH PO (11:16)
[2021-06-15] MEDS: dilTIAZem ER (24HR) 240 mg Capsule PO (11:16)
[2021-06-15] MEDS: pantoprazole DR 40 mg Tablet PO (11:17)
[2021-06-15] MEDS: hyDRALAzine 50 mg Tablet 100 MG PO (11:17)
[2021-06-15] MEDS: atorvastatin 40 mg Tablet PO (11:17)
[2021-06-15] MEDS: cloNIDine 0.1 mg Tablet 0.3 MG PO (11:17)
[2021-06-15] MEDS: citalopram 20 mg Tablet 10 MG PO (11:18)
[2021-06-15] MEDS: heparin 5,000 unit/mL INJ 1 mL 5000 UNIT SUBCUT (11:18)
--- NOTE | 2021-06-15 11:35 | PM.DCS ---
Discharge Providers Date of Admission: 06/13/21 19:13 Date of Discharge: June 15, 2021 Attending Provider at Admission: Donnie Romero MD Attending Provider at Discharge: Donnie Romero MD Primary Care Provider: Ricardo Stack MD Diagnoses at Discharge Discharge Diagnosis (1) Hypertensive urgency: Status: Acute (2) ESRD (end stage renal disease): Status: Acute (3) Atrial fibrillation/flutter: Status: Acute (4) Acute hyperkalemia: Status: Acute (5) COPD (chronic obstructive pulmonary disease): Status: Acute (6) Elevated troponin: Status: Acute Reason for Visit Reason for Visit: DIFFICULTY BREATHING Hospital Course Hospital Course HPI : Leopoldo Schaefer is a 46 year old male ?with past medical history of COPD, sleep apnea, end-stage renal disease on dialysis Thursday, Atrial fibrillation,Diastolic CHF, Resistant hypertension , came in with chief complaint of worsening shortness of breath started this morning, he was also complaining of chest tightness denies any? cough , fever ,? chills , nausea ,vomiting , abdominal pain.? Last dialysis on Thursday. Upon arrival in the ER he was found to be hypertensive urgency: With systolic blood pressure in 220s as well as diastolic blood pressure In 110s. Upon arrival in the ER he was worked up for above-mentioned complaint. Pertinent imaging studies: X-ray chest:?Ill-defined opacities in both lower lungs predominating on the right.? EKG: Sinus rhythm with first-degree AV block Pertinent labs: WBC 11.8, H&H 10.9/ 35.2 , plt : 325 , serum sodium 138 serum potassium 5.2, BUN 40, serum creatinine :7.3 , Baseline troponin 72, 2-hour troponin 67, 2-hour delta : - 4.84 , 6-hour troponin 61 , proBNP 50830. Hospital course Patient was admitted for the management of hypertensive urgency, patient was placed on nicardipine drip, his home antihypertensive medications were resumed, patient was continued on routine hemodialysis, he responded well to these medical management, at the time of discharge his blood pressure was well controlled, he was saturating well on room air denied any shortness of breath. Patient responded well to above medical management and is being discharged in stable condition to home.He will continue with his routine hemodialysis, has been asked to be compliant with his antihypertensive medications. Physical Exam Const: COMMON NORMALS: patient oriented x3 HENMT: COMMON NORMALS: normocephalic and atraumatic HEAD & SCALP: normocephalic and atraumatic Chest: COMMONS NORMALS: normal inspection of the chest and normal palpation of entire chest wall CHEST: Yes Symmetrical chest wall rise Resp: COMMON NORMALS: normal respiratory effort, No retractions, No use of accessory muscles and clear to auscultation bilaterally EFFORT & INSPECTION: Yes symmetric chest movement AUSCULTATION: clear to auscultation bilaterally Cardio: COMMON NORMALS: regular rate, regular rhythm, S1 normal heart sound present, S2 normal heart sound present, No gallops present (Cardio), No murmurs present (Cardio), No rub (Cardio) and Peripheral pulses 2+ throughout RATE: regular rate RHYTHM: regular rhythm HEART SOUNDS: S1 normal heart sound present and S2 normal heart sound present PERIPHERAL PULSES: Peripheral pulses 2+ throughout GI: COMMON NORMALS: Normal to inspection, nondistended, normoactive bowel sounds present, Soft to palpation, non-tender, No hepatosplenomegaly present and no masses AUSCULTATION: Yes normoactive bowel sounds PALPATION: Yes Soft to palpation and Yes No hepatosplenomegaly present RECTAL EXAM: Yes deferred Extremity: COMMON NORMALS: no clubbing, cyanosis or edema and no pedal edema Neuro: COMMON NORMALS: patient oriented x3 Discharge Data Studies Completed and Pending Completed Studies During Hospitalization Category Date Time Status XR chest 1V portable [id number] Urgent Exams 06/13/21 09:53 Completed Pending at discharge Category Date Time Status Complete Blood Count w/Auto AM LABS Lab 06/16/21 04:00 Ordered Comprehensive Metabolic Panel AM LABS Lab 06/16/21 04:00 Ordered Radiology Impressions Chest X-Ray 06/13/21 09:53 IMPRESSION: Abnormal chest with possibly and increase in the right pleural effusion. Laboratory Results WBC 12.8 10^3/uL (4.0-10.0) H 06/15/21 05:19 RBC 3.01 10^6/uL (4.1-5.3) L 06/15/21 05:19 Hgb 9.3 g/dL (11.7-16.6) L 06/15/21 05:19 Hct 31.1 % (42.0-52.0) L 06/15/21 05:19 MCV 103.3 fl (80-94) H 06/15/21 05:19 MCH 30.9 pg (28.0-34.0) 06/15/21 05:19 MCHC 29.9 g/dL (30.0-36.0) L 06/15/21 05:19 RDW 15.8 % (12.1-15.1) H 06/15/21 05:19 Plt Count 305 10^3/cmm (130-400) 06/15/21 05:19 MPV 9.0 fL (7.4-10.4) 06/15/21 05:19 Neut % (Auto) 76.4 % 06/15/21 05:19 Lymph % (Auto) 13.4 % 06/15/21 05:19 [place] % (Auto) 8.7 % 06/15/21 05:19 Eos % (Auto) 0.7 % 06/15/21 05:19 Baso % (Auto) 0.5 % 06/15/21 05:19 Neut # (Auto) 9.78 10^3/uL (1.8-7.7) H 06/15/21 05:19 Lymph # (Auto) 1.7 10^3/uL (0.8-4.8) 06/15/21 05:19 [place] # (Auto) 1.1 10^3/uL (0.2-0.9) H 06/15/21 05:19 Eos # (Auto) 0.1 10^3/uL (0.0-0.8) 06/15/21 05:19 Baso # (Auto) 0.1 10^3/uL (0.0-0.1) 06/15/21 05:19 Nucleated RBC % (auto) 0 % 06/15/21 05:19 Nucleated RBCs # 0.0 /100WBC 06/15/21 05:19 Sodium 138 mmol/L (136-145) 06/15/21 05:19 Potassium 5.8 mmol/L (3.5-5.1) H 06/15/21 05:19 Chloride 95 mmol/L (98-107) L 06/15/21 05:19 Carbon Dioxide 28 mmol/L (22-29) 06/15/21 05:19 Anion Gap 20.8 (5-19) H 06/15/21 05:19 BUN 50 mg/dL (6-20) H 06/15/21 05:19 Creatinine 7.4 mg/dL (0.7-1.2) H* 06/15/21 05:19 GFR Calculation 7.9 mL/min (90-130) L 06/15/21 05:19 Glucose 88 mg/dL (65-115) 06/15/21 05:19 POC Glucose 84 mg/dL (70-110) 06/13/21 10:14 Calculated Osmolality 299 mOsm/kg (285-295) H 06/15/21 05:19 Lactic Acid 0.5 mmol/L (0.5-2.2) 06/13/21 12:26 Calcium 9.5 mg/dL (8.5-10.5) 06/15/21 05:19 Total Bilirubin 0.2 mg/dL (0.15-1.2) 06/15/21 05:19 AST 11 U/L (0-40) 06/15/21 05:19 ALT 9 U/L (0-41) 06/15/21 05:19 Alkaline Phosphatase 76 IU/L (40-130) 06/15/21 05:19 Troponin T Baseline 72 ng/L (0-15) H 06/13/21 12:26 Troponin T 120 Minute 67.16 ng/L (0-15) H 06/13/21 14:50 Delta Troponin T -4.84 ABS# (0-10) L 06/13/21 14:50 Troponin T Hi Sens 6Hr 61.53 ng/L (0-15) H 06/13/21 18:30 Troponin T Hi Sens 6Hr Delta -10.47 ng/L (0-12) L 06/13/21 18:30 NT-Pro-B Natriuret Pep 80247 pg/mL (0-125) H 06/13/21 12:26 Total Protein 6.8 g/dL (6.6-8.7) 06/15/21 05:19 Albumin 3.4 g/dL (3.5-5.2) L 06/15/21 05:19 Globulin 3.4 g/dL (1.3-4.6) 06/15/21 05:19 Influenza Type A Ag Negative (Negative) 06/13/21 10:23 Influenza Type B Ag Negative (Negative) 06/13/21 10:23 Vitals Last Vital Signs Temp 98.1 F 06/15/21 07:56 Pulse 109 H 06/15/21 08:04 Resp 20 H 06/15/21 08:04 BP 152/107 06/15/21 07:56 Pulse Ox 94 06/15/21 08:04 Discharge Plan Discharge Patient Disposition: Home Condition: Stable Prescriptions: Continued Velphoro 500 mg tablet,chewable See Rx Instructions .ROUTE .COMPLEX 0RF Rx Instructions: 3 tabs po with meals and 2-3 tabs po with snacks hydroxyzine HCl 25 mg tablet 25 mg PO BID PRN (Reason: itching) 30 Days Qty: 60 0RF Yupelri 175 mcg/3 mL solution for nebulization 175 mcg inhalation DAILY 0RF RenaPlex-D 800 mcg-12.5 mg -2,000 unit tablet 1 tab PO DAILY 0RF (DME) Home oxygen See Rx Instructions .Route .MEDSUPPLY Qty: 1 0RF Rx Instructions: As directed budesonide-formoterol [Symbicort] 160-4.5 mcg/actuation HFA aerosol inhaler 2 puff inhalation BID 30 Days Qty: 10.2 2RF albuterol sulfate [Ventolin HFA] 90 mcg/actuation HFA aerosol inhaler 2 inh inhalation Q4H PRN (Reason: shortness of breath or wheezing) Qty: 8.5 2RF atorvastatin 40 mg tablet 40 mg PO QAM Qty: 90 1RF isosorbide mononitrate 120 mg tablet extended release 24 hr 120 mg PO DAILY Qty: 90 1RF pantoprazole 40 mg tablet,delayed release (DR/EC) 40 mg PO BID Qty: 180 1RF citalopram [Celexa] 10 mg tablet 10 mg PO QAM Qty: 30 0RF trazodone 50 mg tablet 50 mg PO BEDTIME 0RF fluticasone propionate 50 mcg/actuation spray,suspension 1 spray INTRANASAL DAILY PRN (Reason: Allergy Symptoms) 0RF diltiazem HCl 240 mg capsule,extended release 24hr 240 mg PO DAILY Qty: 90 0RF ipratropium-albuterol 0.5 mg-3 mg(2.5 mg base)/3 mL solution for nebulization 3 ml inhalation Q8H PRN (Reason: shortness of breath or wheezing) Qty: 90 2RF carvedilol [Coreg] 25 mg tablet See Rx Instructions .ROUTE .COMPLEX Qty: 180 1RF Rx Instructions: 50 mg orally twice a day except on dialysis days (thu,thu,thu) takes 50mg daily hydralazine 100 mg tablet 100 mg PO TID 0RF nicotine 21 mg/24 hr patch 24 hour 1 patch transdermal BEDTIME PRN (Reason: Smoking Cessation) 0RF ondansetron HCl 8 mg tablet 8 mg PO Q8H PRN (Reason: Nausea And Vomiting) 0RF acetaminophen 500 mg Tablet 1,000 mg PO Q4H PRN (Reason: Pain) 0RF budesonide 0.5 mg/2 mL suspension for nebulization 0.5 mg inhalation BID PRN (Reason: unknown) 0RF Rx Instructions: Rinse mouth after treatment clonidine HCl 0.3 mg tablet See Rx Instructions .ROUTE .COMPLEX 0RF Rx Instructions: 0.3 mg orally three times a day except on dialysis days (thu,thu,thu) take 0.3mg twice a day aspirin 81 mg tablet,delayed release (DR/EC) 81 mg PO QAM 0RF Discharge Orders: Discharge Order (Routine); Ordered 06/15/21 Ordered By: Donnie Romero Referrals: Nish Stack MD [Hospitalist] - (Should call thursday06/17/21 with appointment info ) Ricardo Stack MD [Primary Care Provider] - Discharge Activity: Resume usual activity Patient Instructions: COPD (Chronic Obstructive Pulmonary Disease) (GEN), End Stage Kidney Disease (GEN), High Troponin Levels (GEN), Opioid Safety Discharge Attestations Time Spent in Discharge Care*: less than 30 min Status at Discharge: Cognitive status at discharge: cognitively intact, Behavioral status at discharge: cooperative, Quality Metrics Clinical Quality Measures [ No reported AMI, CVA or VTE this stay] Coding Level of Care Code Acute Chg FW DC note Exam Detailed Diagnoses Hypertensive urgency I16.0 ESRD (end stage renal disease) N18.6 Atrial fibrillation/flutter Acute hyperkalemia E87.5 COPD (chronic obstructive pulmonary disease) J44.9 Elevated troponin R77.8
[2021-06-15 11:48] VITALS: BP 156/78; PULSE 99; RESP 16; TEMP 36.6; O2SAT 97
--- NOTE | 2021-06-15 11:53 | P.PN_ITS ---
Subjective Subjective: Mr. Schaefer is doing well today with no new issues. Dialysis went well yesterday. Tolerated treatment well. He feels pretty good today. Keen to go home. Medications: Medication Review Details: Generic Name Dose Route Start Last Admin Trade Name Staci PRN Reason Stop Dose Admin Aspirin 81 mg 06/14/21 09:00 06/14/21 08:01 Aspirin 81 Mg Ec Tablet PO 81 mg DAILY FRANCISCO Administration Atorvastatin Calci um 40 mg 06/14/21 09:00 06/14/21 08:01 Atorvastatin 40 Mg Tablet PO 40 mg DAILY FRANCISCO Administration Citalopram Hydrobr omide 10 mg 06/14/21 09:00 06/14/21 08:02 Citalopram 20 Mg Tablet PO 10 mg DAILY FRANCISCO Administration Clonidine HCl 0.3 mg 06/13/21 21:00 06/14/21 08:01 Clonidine 0.1 Mg Tablet PO 0.3 mg TID FRANCISCO Administration Heparin Sodium (Po rcine) 5,000 unit 06/13/21 20:00 06/14/21 07:37 Heparin 5,000 Un it/Ml Inj 1 Ml SUBCUT 5,000 unit Q12H FRANCISCO Administration Hydralazine HCl 100 mg 06/13/21 21:00 06/14/21 08:02 Hydralazine 50 M g Tablet PO 100 mg TID FRANCISCO Administration Hydroxyzine Pamoat e 25 mg 06/13/21 21:00 06/14/21 08:03 Hydroxyzine 25 M g Capsule PO 25 mg BID@0900,2100 FRANCISCO Administration Nicardipine/Sodium Chloride 20 mg in 200 mls @ 0 mls/hr 06/13/21 15:15 06/14/21 03:00 Cardene IV 0 mg/hr .Q0M FRANCISCO 0 mls/hr Titration Protocol Per Protocol Isosorbide Mononit rate 120 mg 06/14/21 09:00 06/14/21 08:01 Isosorbide [place] itrate Er 60 Mg Ta blet PO 120 mg DAILY FRANCISCO Administration Morphine Sulfate 2 mg 06/13/21 23:23 06/13/21 23:28 Morphine 4 Mg/Ml Sdv 1 Ml IVP 2 mg Q4H PRN Administration SEVERE PAIN Multivitamins 1 each 06/14/21 09:00 06/14/21 08:01 L-Dicjhpj-Xyxsoe n C Tablet PO 1 each DAILY FRANCISCO Administration Ondansetron HCl 4 mg 06/13/21 19:13 06/14/21 01:25 Ondansetron 2 Mg /Ml Sdv 2 Ml IVP 4 mg Q8H PRN Administration vomiting, or N/V if npo Pantoprazole Sodiu m 40 mg 06/14/21 09:00 06/14/21 08:[address] 40 Mg Tablet PO 40 mg BID FRANCISCO Administration Fluticasone/Salmet alejandro 1 puff 06/14/21 08:00 06/14/21 07:55 Fluticasone-Salm eterol 250-50 Disk us INHALATION 1 puff BID.RESPIRATORY S CH Administration Trazodone HCl 50 mg 06/13/21 21:00 06/13/21 21:18 Trazodone 50 Mg Tablet PO 50 mg BEDTIME FRANCISCO Administration Vitals/I&O/Wt Last Vital Signs Temp 97.8 F 06/15/21 11:48 Pulse 99 06/15/21 11:48 Resp 16 06/15/21 11:48 BP 156/78 06/15/21 11:48 Pulse Ox 97 06/15/21 11:48 06/14/21 06/15/21 06/15/21 22:59 06:59 14:59 Intake Total 490 / 640 2260 / 2900 240 / 240 Output Total 400 / 400 Balance 490 / 640 1860 / 2500 240 / 240 Physical Exam Narrative: Constitutional: Awake, comfortable HEENT: Wet mucosa, no jvp, non icteric Lungs: Bilaterally clear without discernible wheeze, rales in all lung zones CVS: S1 S2, no murmurs Abdo: Soft, BS ok Ext 4: 2-3+ edema, peripheral perfusion with no cyanosis Neurological: Grossly non-focal Data : 06/15/21 05:19 06/15/21 05:19 A&P Assessment and plan (1) ESRD (end stage renal disease): 1. ESRD HD planned for Thursday 2K bath, ultrafiltration 4 L dose medication for GFR less than 15 on dialysis 2. Hemodynamics More controlled with more aggressive UF 3. Chemistry Hyperkalemia, should correct with dialysis 4. Chronic ESRD issues To be managed as outpatient as part of standard monthly care. Okay for discharge from my perspective Matthew Holley MD Nephrology [phone] Patient seen and examined via telemedicine, with the assistance of the bedside RN > 25 min spent in evaluation and mgmt of patient Status: Acute Attestations Medical Necessity Statement*: esrd Coding Level of Care Code Acute Information Systems Planner for Shilpa Phillips Diagnoses ESRD (end stage renal disease) N18.6
[2021-06-15 14:04] VITALS: BP 156/78; PULSE 99; RESP 16; TEMP 36.6; O2SAT 97
--- NOTE | 2021-06-18 08:32 | PC.SOCIAL ---
Asked to follow up with patient post discharge to schedule appt for primary care with Dr Stack at [facility]. Called pt and he has scheduled this appt for next 06/27/2021 at 10:30am. Pt indicates he has no questions or needs at this time.
== END 2021-06-15 13:40 | disposition home or self-care (01) | DRG 304 ==
LOC: ER 19:36 → ICU 20:13 → MEDSURG 06-14 11:48
PROVIDERS: Admitting Provider Internal Medicine; Emergency Provider Emergency Medicine; PCP Radiology Diagnostic Radiology; Visit Provider Internal Medicine
DX: I16.0 Hypertensive urgency (principal); N18.6 End stage renal disease; I48.92 Unspecified atrial flutter; J44.1 Chronic obstructive pulmonary disease with (acute) exacerbation; I50.32 Chronic diastolic (congestive) heart failure; I13.2 Hypertensive heart and chronic kidney disease with heart failure and with stage 5 chronic kidney disease, or end stage renal disease; I48.0 Paroxysmal atrial fibrillation; E87.5 Hyperkalemia; G47.33 Obstructive sleep apnea (adult) (pediatric); F17.210 Nicotine dependence, cigarettes, uncomplicated; F41.9 Anxiety disorder, unspecified; F32.A Depression, unspecified; K21.9 Gastro-esophageal reflux disease without esophagitis; Z99.2 Dependence on renal dialysis; Z79.82 Long term (current) use of aspirin; Z99.81 Dependence on supplemental oxygen
CPT/HCPCS: 36415; 36416; 71045; 80053; 82962; 83605; 83880; 84484; 85025; 87804; 93005; 94640; 96372; 96374; 96375; 99285; J0360; J1644; J2270; J2405; J2930; J3490; J7040; Q3014

== ENCOUNTER → 2021-07-16 13:33 | Outpatient (BNVA) | payer MEDICARE, MEDICAID, SELFPAY | PROVIDERS: PCP Radiology Diagnostic Radiology; Visit Provider Podiatrist Foot & Ankle Surgery | DX: L60.8 Other nail disorders (principal); L60.3 Nail dystrophy; B35.1 Tinea unguium; F17.210 Nicotine dependence, cigarettes, uncomplicated | CPT/HCPCS: 99214 ==

== ENCOUNTER → 2021-08-20 10:13 | Outpatient (BNVA) | payer MEDICARE, MEDICAID, SELFPAY | PROVIDERS: PCP Radiology Diagnostic Radiology; Visit Provider Family Medicine | DX: R50.9 Fever, unspecified (principal); F41.9 Anxiety disorder, unspecified; F32.A Depression, unspecified; G47.00 Insomnia, unspecified; L23.9 Allergic contact dermatitis, unspecified cause; J22 Unspecified acute lower respiratory infection; I10 Essential (primary) hypertension | CPT/HCPCS: 87400; 87635 ==

== ENCOUNTER 2021-10-14 06:13 | Observation (INO) | payer MEDICARE, MEDICAID, SELFPAY ==
[2021-10-14] VITALS (46 sets, daily range): BP systolic 119–235; BP diastolic 67–128; PULSE 63–86; RESP 13–28; TEMP 36.6–37; O2SAT 92–99; BMI 27.9
--- NOTE | 2021-10-14 06:29 | ECG_ITS ---
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 Measurements Intervals Addy Rate: 82 P: 55 WV: 191 QRS: -16 QRSD: 125 T: 85 QT: 391 QTc: 458 Interpretive Statements SINUS RHYTHM SEPTAL MYOCARDIAL INFARCTION , OF INDETERMINATE AGE [40+ ms Q WAVE IN V1/V2] POSSIBLE LATERAL MYOCARDIAL INFARCTION , OF INDETERMINATE AGE [30 ms Q WAVE IN I/aVL/V5/V6] Compared to ECG 06/13/2021 23:16:48 Myocardial infarct finding now present T-wave abnormality no longer present Possible ischemia no longer present Electronically Signed On 10-14-2021 8:08:[address] Lloyd M.D. [email or web address]
[2021-10-14 06:33] LABS: Glucose Point of Care 81 mg/dL (70-110)
[2021-10-14 06:38] LABS: Basophils # 0.1 10^3/uL (0.0-0.1); Basophils % 0.5 %; Eosinophils # 0.2 10^3/uL (0.0-0.8); Eosinophils % 1.7 %; Hematocrit 37.1 % (42.0-52.0); Hemoglobin 12.2 g/dL (11.7-16.6); Lymphocytes # 0.7 10^3/uL (0.8-4.8); Lymphocytes % 4.9 %; Mean Corpuscular HGB Conc 32.9 g/dL (30.0-36.0); Mean Corpuscular Hemoglobin 32.4 pg (28.0-34.0); Mean Corpuscular Volume 98.4 fl (80-94); Mean Platelet Volume 9.5 fL (7.4-10.4); Monocytes # 1.3 10^3/uL (0.2-0.9); Monocytes % 9.2 %; Neutrophils # 11.27 10^3/uL (1.8-7.7); Neutrophils % 83.2 %; Nucleated Red Blood Cells % 0 %; Platelet Count 327 10^3/cmm (130-400); Red Blood Count 3.77 10^6/uL (4.1-5.3); Red Cell Distribution Width 15.4 % (12.1-15.1); White Blood Count 13.6 10^3/uL (4.0-10.0)
[2021-10-14] MEDS: cloNIDine 0.1 mg Tablet 0.3 MG PO (06:48)
[2021-10-14] MEDS: isosorbide mononitrate ER 60 mg Tablet 120 MG PO (06:49)
[2021-10-14] MEDS: carvedilol 12.5 mg Tablet PO (06:49)
[2021-10-14] MEDS: dilTIAZem ER (24HR) 240 mg Capsule PO (06:49)
[2021-10-14] MEDS: metoprolol tartrate 1 mg/1 mL SDV 5 mL 5 MG IVP (06:51)
[2021-10-14] MEDS: ondansetron 2 mg/ML SDV 2 mL 4 MG IVP (06:51)
[2021-10-14] MEDS: calcium chloride 10% Syr 10 mL 1 GM IVP (06:52)
--- NOTE | 2021-10-14 06:52 | ED_ITS ---
HPI - Nausea/Vomiting/Diarrhea General: Chief complaint: Nausea/Vomiting/Diarrhea Stated complaint: N/V/SOB Time Seen by Provider: 10/14/21 06:22 Source: patient Mode of arrival: EMS Limitations: no limitations History of Present Illness: 46-year-old male presents emergency room via EMS. Patient is in dialysis for end-stage renal disease he refuses to have a fistula placed so he continues to get through a left subclavian port he has had for the last 3 years. This morning he had nausea vomiting and diarrhea he had some shortness of breath as well he does usually use oxygen at home on occasion he states he normally has 4 L/min EMS reported his sats were 88% on room air. On 4 L when he arrives here he is at 96 to 97%. He has not taken his morning medications blood pressure markedly elevated. EKG sent to us prior to arrival showed peaked T waves. He did receive all of his dialysis last week and he denies any recent medication changes. He denies any chest or abdominal pain at this time. He is due for dialysis today normally receives dialysis Thursday he is not on any anticoagulants. MD elicited complaint: nausea and vomiting Pertinent past history: other (End-stage renal disease on hemodialysis) Onset (ago): hour(s) Description of vomiting: watery Associated nausea: Yes Associated abdominal pain: No Location of pain: None Exacerbating factors: none Relieving factors: none Associated symtoms: Reports fatigue, malaise and nausea; Denies chest pain or palpitations Review of Systems Const: Reports: fatigue and malaise; Denies: fever(s), chills, body aches or change in appetite ENMT: Denies: throat pain, ear or mastoid pain, nasal discharge or nasal congestion Card: Reports: swelling of feet/ankles; Denies: chest pain, palpitations, irregular heart rhythm, edema, dyspnea on exertion or orthopnea Resp: Denies: dyspnea, productive cough or non-productive cough GI: Reports: nausea; Denies: abdominal pain : Denies: flank pain Musc: Denies: neck pain or back pain Skin/Breast: Denies: rash or pruritus PFS ED PFSH: Medical History Allergic dermatitis Anemia Anxiety and depression Atrial fibrillation/flutter Chest pain COPD (chronic obstructive pulmonary disease) Reports he is on 4 L of oxygen at home CRF (chronic renal failure) Dialysis patient Diastolic CHF Elevated troponin Encounter to establish care End stage chronic kidney disease ESRD (end stage renal disease) GERD (gastroesophageal reflux disease) Hypertension Hypertensive emergency Hypoxia Insomnia Lower respiratory tract infection Obstructive sleep apnea Paroxysmal atrial fibrillation with RVR Pleural effusion Resistant hypertension Sebaceous cyst Vitamin D deficiency Surgical History H/O circumcision H/O hand surgery right hand with hardware Presence of peritoneal dialysis catheter S/P dialysis catheter insertion (12/12/19) Removed on 04/04/2020 S/P hemodialysis catheter insertion Family History Other Adopted Denies family history of Anesthesia complication Bleeding disorder Social History Smoking and tobacco status: current every day smoker (1ppd X26 years) cigarettes [ Other cigarette details: On and off quitting and restarting] Alcohol intake: never Household members: significant other Marital status: Single Current occupational status: disabled History of recent travel: Yes Details: [place] Out of state: Yes Physical Exam Const: GENERAL APPEARANCE: cooperative and comfortable ORIENTATION/CO NSCIOUSNESS: Yes awake, Yes oriented to person, Yes oriented to place and Yes oriented to time HENMT: COMMON NORMALS: normocephalic, atraumatic and hearing grossly normal bilaterally HEAD & SCALP: normocephalic and atraumatic Resp: COMMON NORMALS: normal respiratory effort, No retractions, No use of accessory muscles and clear to auscultation bilaterally AUSCULTATION: clear to auscultation bilaterally Cardio: COMMON NORMALS: regular rate, regular rhythm and No murmurs present (Cardio) RATE: regular rate RHYTHM: regular rhythm GI: COMMON NORMALS: Soft to palpation and No hepatosplenomegaly present AUSCULTATION: Yes normoactive bowel sounds PALPATION: Yes Soft to palpation, No Tenderness to palpation present (GI), No Guarding due to palpation present (GI) and Yes No hepatosplenomegaly present Extremity: COMMON NORMALS: normal to inspection, capillary refill normal and no calf tenderness GENERAL: Yes edema (lower extremities) Neuro: SENSORIUM/ORIENTATION: Yes oriented to person, Yes oriented to place and Yes oriented to time Skin: COMMON NORMALS: no rashes or lesions noted GENERAL SKIN EXAM: no rashes or lesions noted Course Vital Signs: Vital signs: Vital Signs Temperature 98.6 F 10/14/21 06:20 Pulse Rate 66 10/14/21 13:45 Respiratory Rate 16 10/14/21 10:00 Blood Pressure 144/80 10/14/21 14:00 Pulse Oximetry 97 10/14/21 13:45 MDM - Nausea/Vomiting/Diarrhea Medical Decision Making Accelerated hypertension initially treated with his regular medicines and some IV push we ended up starting a nicardipine drip on his blood pressure did begin to improve and able to DC that. He is acutely hyperkalemic he was given treatment here and we will admit start on dialysis. Discussed with hospitalist orders written Medical Records I reviewed the patient's medical records. Lab Data I reviewed the patient's lab results. : 10/14/21 06:20 10/14/21 06:20 Radiology Impressions Chest X-Ray 10/14/21 09:09 IMPRESSION: 1. Mild pulmonary venous congestion, slightly worsened since the prior study. 2. Small RIGHT pleural effusion with RIGHT basilar atelectasis. Opacification at the RIGHT lung base is probably due to the pleural fluid and atelectasis. 3. Moderate cardiomegaly. Laboratory Results WBC 13.6 10^3/uL (4.0-10.0) H 10/14/21 06:20 RBC 3.77 10^6/uL (4.1-5.3) L 10/14/21 06:20 Hgb 12.2 g/dL (11.7-16.6) 10/14/21 06:20 Hct 37.1 % (42.0-52.0) L 10/14/21 06:20 MCV 98.4 fl (80-94) H 10/14/21 06:20 MCH 32.4 pg (28.0-34.0) 10/14/21 06:20 MCHC 32.9 g/dL (30.0-36.0) 10/14/21 06:20 RDW 15.4 % (12.1-15.1) H 10/14/21 06:20 Plt Count 327 10^3/cmm (130-400) 10/14/21 06:20 MPV 9.5 fL (7.4-10.4) 10/14/21 06:20 Neut % (Auto) 83.2 % 10/14/21 06:20 Lymph % (Auto) 4.9 % 10/14/21 06:20 [place] % (Auto) 9.2 % 10/14/21 06:20 Eos % (Auto) 1.7 % 10/14/21 06:20 Baso % (Auto) 0.5 % 10/14/21 06:20 Neut # (Auto) 11.27 10^3/uL (1.8-7.7) H 10/14/21 06:20 Lymph # (Auto) 0.7 10^3/uL (0.8-4.8) L 10/14/21 06:20 [place] # (Auto) 1.3 10^3/uL (0.2-0.9) H 10/14/21 06:20 Eos # (Auto) 0.2 10^3/uL (0.0-0.8) 10/14/21 06:20 Baso # (Auto) 0.1 10^3/uL (0.0-0.1) 10/14/21 06:20 Nucleated RBC % (auto) 0 % 10/14/21 06:20 Nucleated RBCs # 0.0 /100WBC 10/14/21 06:20 Specimen Type Arterial 10/14/21 08:04 Sample Site Radial, right 10/14/21 08:04 ABG pH 7.33 (7.35-7.45) L 10/14/21 08:04 ABG pCO2 38.9 mmHg (35-45) 10/14/21 08:04 ABG pO2 81.3 mmHg (80.0-100.0) 10/14/21 08:04 ABG HCO3 20.5 mmol/L (22-26) L 10/14/21 08:04 ABG O2 Saturation 96.4 10/14/21 08:04 ABG Base Excess -5.0 mmol/L (-2.0-2.0) L 10/14/21 08:04 Shantanu Test Pos 10/14/21 08:04 A-a O2 Gradient 9.0 mmHg (5-10) 10/14/21 08:04 Hematocrit 37.9 % (42-52) L 10/14/21 08:04 Hgb O2 Saturation 93.8 % (95-100) L 10/14/21 08:04 Carboxyhemoglobin 2.1 %THgb (0.4-20.1) 10/14/21 08:04 Methemoglobin 0.6 % (0.4-1.5) 10/14/21 08:04 Total Hemoglobin 12.4 g/dL (14-18) L 10/14/21 08:04 Sodium 135.0 mmol/L (131-143) 10/14/21 08:04 Potassium 6.0 mmol/L (3.5-5.0) H 10/14/21 08:04 Glucose 80.0 mg/dL (70-115) 10/14/21 08:04 Ionized Calcium 1.3 mmol/L (1.1-1.4) 10/14/21 08:04 O2 Delivery Device Nc 10/14/21 08:04 O2 Liters/Min 2.0 % 10/14/21 08:04 FiO2 28.0 % 10/14/21 08:04 Grocery Shopper ID glc 10/14/21 08:04 Sodium 136 mmol/L (136-145) 10/14/21 06:20 Potassium 5.4 mmol/L (3.5-5.1) H 10/14/21 06:20 Chloride 95 mmol/L (98-107) L 10/14/21 06:20 Carbon Dioxide 20 mmol/L (22-29) L 10/14/21 06:20 Anion Gap 26.4 (5-19) H 10/14/21 06:20 BUN 60 mg/dL (6-20) H 10/14/21 06:20 Creatinine 11.7 mg/dL (0.7-1.2) H* 10/14/21 06:20 GFR Calculation 4.7 mL/min (90-130) L 10/14/21 06:20 Glucose 73 mg/dL (65-115) 10/14/21 06:20 POC Glucose 81 mg/dL (70-110) 10/14/21 06:30 Calculated Osmolality 297 mOsm/kg (285-295) H 10/14/21 06:20 Calcium 9.4 mg/dL (8.5-10.5) 10/14/21 06:20 Magnesium 2.1 mg/dL (1.7-2.3) 10/14/21 06:20 Total Bilirubin 0.4 mg/dL (0.15-1.2) 10/14/21 06:20 AST 17 U/L (0-40) 10/14/21 06:20 ALT 12 U/L (0-41) 10/14/21 06:20 Alkaline Phosphatase 96 IU/L (40-130) 10/14/21 06:20 Troponin T Baseline 66 ng/L (0-15) H 10/14/21 06:20 Troponin T 120 Minute 57.51 ng/L (0-15) H 10/14/21 08:36 Delta Troponin T -8.49 ABS# (0-10) L 10/14/21 08:36 Total Protein 7.7 g/dL (6.6-8.7) 10/14/21 06:20 Albumin 4.0 g/dL (3.5-5.2) 10/14/21 06:20 Globulin 3.7 g/dL (1.3-4.6) 10/14/21 06:20 Coronavirus 229E (PCR) Not detected (NOT DETECT) 10/14/21 10:00 SARS-CoV-2 (PCR) Not detected (NOT DETECT) 10/14/21 10:00 Discharge Plan Discharge Patient Disposition: Admitted As Inpatient Admit Provider: Henry Frazier Clinical Impression: Nausea & vomiting, Hypertensive urgency, End stage renal disease, Hyperkalemia Condition: Stable Coding Level of Care Code ED Water Pollution Control Inspector for [place] Fwd Exam Detailed
[2021-10-14 07:12] LABS: Alanine Aminotransferase 12 U/L (0-41); Alkaline Phosphatase 96 IU/L (40-130); Anion Gap 26.4 (5-19); Aspartate Amino Transferase 17 U/L (0-40); Blood Urea Nitrogen 60 mg/dL (6-20); Calcium 9.4 mg/dL (8.5-10.5); Carbon Dioxide 20 mmol/L (22-29); Chloride 95 mmol/L (98-107); Globulin 3.7 g/dL (1.3-4.6); Glomerular Filtration Rate 4.7 mL/min (90-130); Glucose 73 mg/dL (65-115); Magnesium 2.1 mg/dL (1.7-2.3); Osmolality Calculated 297 mOsm/kg (285-295); Potassium 5.4 mmol/L (3.5-5.1); Sodium 136 mmol/L (136-145); Total Bilirubin 0.4 mg/dL (0.15-1.2); Total Protein 7.7 g/dL (6.6-8.7); Troponin(5th) Baseline 66 ng/L (0-15)
--- NOTE | 2021-10-14 07:27 | PC.NURSE ---
notified dr. dubois of bp of 236/121 no further orders.
[2021-10-14] MEDS: levalbuterol 1.25 mg/3 mL Neb 10 MG INHALATION (07:38)
[2021-10-14 08:14] LABS: ABG PCO2 38.9 mmHg (35-45); ABG PH Result 7.33 (7.35-7.45); Arterial Blood Gas Hematocrit 37.9 % (42-52); Blood Gas Allen Test Pos; Blood Gas Operator Identificat glc; Blood Gas Sample Site Radial, right; Blood Gas Sample Type Arterial; Carboxyhemoglobin 2.1 %THgb (0.4-20.1); HCO3 ABG 20.5 mmol/L (22-26); HGB O2 Sat 93.8 % (95-100); Ionized Calcium Level - ABG 1.3 mmol/L (1.1-1.4); Methemoglobin 0.6 % (0.4-1.5); Oxygen Device NC; Oxygen Saturation ABG 96.4; PO2 ABG 81.3 mmHg (80.0-100.0); Total Hemoglobin 12.4 g/dL (14-18)
[2021-10-14] MEDS: hyDRALAzine 20 mg/mL INJ 1 mL IVP (08:22)
[2021-10-14] MEDS: nicardipine 20 MG/200 ML PREMIX 50 MG IV (08:24)
--- NOTE | 2021-10-14 08:29 | ECG_ITS ---
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 Measurements Intervals [place] Rate: 80 P: 64 [place]: 194 QRS: -8 QRSD: 127 T: 82 QT: 408 QTc: 471 Interpretive Statements SINUS RHYTHM POSSIBLE LATERAL MYOCARDIAL INFARCTION , OF INDETERMINATE AGE [30 ms Q WAVE IN I/aVL/V5/V6] Compared to ECG 10/14/2021 06:16:09 No significant changes Electronically Signed On 10-14-2021 18:09:[address] Lloyd M.D. [id number]
--- NOTE | 2021-10-14 08:50 | P.HP_ITS ---
Providers/Chief Complaint Admitting Physician: Henry Frazier MD, Hospitalist Primary Care Provider: Ricardo Stack MD Chief Complaint: N/V/SOB History of Present Illness Leopoldo Schaefer is a 46 year old male with underlying end-stage renal disease on hemodialysis who presents to the emergency department with nausea and vomiting, particularly after eating, for the last 3 days. He reports he is vomiting about 3-4 times a day. He denies any diarrhea. There has been no blood in his stools or black or tarry stools. He has been taking his medication, with the exception of his binders. He believes he is keeping most of this down. Last week he attended all of his dialysis sessions, and reports that none of them were run short. He does not know if he has had any fevers, but had chills on occasion. He reports an occasional cough. No headache. No chest discomfort. History is somewhat difficult as when he is not stimulated, he goes back to sleep. He was markedly elevated on arrival to the emergency room at 235/115. He was placed on a nicardipine drip, and received calcium chloride, carvedilol, clonidine, diltiazem, hydralazine, Imdur, a breathing treatment, metoprolol IV. Last hospital stay was in May when he was admitted with hypertensive urgency, and there was concern at that time regarding noncompliance with blood pressure medication. Review of Systems General: Reports: 10 or more systems reviewed and unremarkable except in HPI and below Const: Reports: chills, fatigue and malaise; Denies: fever(s) Eyes: Denies: change in vision ENMT: Denies: throat pain Card: Denies: chest pain Resp: Reports: non-productive cough GI: Reports: nausea and vomiting; Denies: hematochezia or melena : Denies: flank pain Musc: Denies: neck pain Skin/Breast: Denies: rash Neuro: Denies: headache(s) Psych: Denies: anxiety or depression Endo: Denies: polyuria Gene/Lymph: Denies: easy bruising All/Imm: Denies: urticaria Medications/Allergies Home Medications Medication Instructions Recorded Confirmed Last Taken Type vit B,C-folic ac 800 mcg-zinc 12.5 1 tab PO DAILY 06/09/19 08/20/21 05/24/21 His tory mg-selen-D3 2,000 unit-vit E tablet (RenaPlex-D) Home oxygen #1 ea 08/07/20 08/20/21 Unknown Rx sucroferric oxyhydroxide 500 mg See Rx Instructions .ROUTE .COMPLEX 11/12/20 08/20/21 05/24/21 History chewable tablet (Velphoro) acetaminophen 500 mg tablet 1,000 mg PO Q4H PRN 02/15/21 08/20/21 Unknown History ondansetron HCl 8 mg tablet 8 mg PO Q8H PRN 02/15/21 08/20/21 Unknown History hydroxyzine HCl 25 mg tablet 25 mg PO BID PRN 30 Days #60 tab 02/19/21 08/20/21 Unknown Rx aspirin 81 mg tablet,delayed 81 mg PO QAM 04/03/21 08/20/21 05/24/21 History release fluticasone propionate 50 1 spray INTRANASAL DAILY PRN 05/25/21 08/20/21 Unknown History mcg/actuation nasal spray,suspension carvedilol 25 mg tablet (Coreg) See Rx Instructions .ROUTE 05/27/21 08/20/21 Unknown Rx .COMPLEX #180 tab hydralazine 100 mg tablet 100 mg PO TID 06/13/21 08/20/21 Unknown History triamcinolone acetonide 0.025 % 1 applic TOPICAL TID PRN 14 Days 06/27/21 08/20/21 Unknown Rx topical ointment #454 g terbinafine HCl 250 mg tablet 250 mg PO DAILY 90 Days #30 tab 07/16/21 08/20/21 Unknown Rx albuterol sulfate 90 mcg/actuation 2 inh INHALATION Q4H PRN #8.5 g 08/20/21 08/20/21 Unknown Rx aerosol inhaler (Ventolin HFA) budesonide-formoterol HFA 160 2 puff INHALATION BID 30 Days 08/20/21 08/20/21 Unknown Rx mcg-4.5 mcg/actuation aerosol #10.2 g inhaler (Symbicort) ipratropium 0.5 mg-albuterol 3 mg 3 ml INHALATION Q8H PRN #90 ml 08/20/21 08/20/21 Unknown Rx (2.5 mg base)/3 mL nebulization soln pantoprazole 40 mg tablet,delayed 40 mg PO BID #180 tab 09/09/21 Unknown Rx release atorvastatin 40 mg tablet 40 mg PO QAM #90 tab 09/13/21 Unknown Rx isosorbide mononitrate 120 mg 120 mg PO DAILY #90 tab 09/13/21 Unknown Rx tablet,extended release 24 hr citalopram 20 mg tablet 20 mg PO QAM 10/14/21 10/14/21 Unknown History clonidine HCl 0.3 mg tablet 0.15 mg PO BID 10/14/21 10/14/21 Unknown History diltiazem HCl 240 mg 240 mg PO QAM 10/14/21 10/14/21 Unknown History capsule,extended release 24 hr trazodone 150 mg tablet 150 mg PO BEDTIME PRN 10/14/21 10/14/21 Unknown History Allergies Allergy/AdvReac Type Severity Reaction Status Date / Time lisinopril Allergy swelling Verified 10/14/21 09:31 Penicillins Allergy ALGY-Hives Verified 10/14/21 09:31 tramadol Allergy ALGY-Hives Verified 10/14/21 09:31 PFSH Acute PFSH: Medical History (Updated 10/14/21 @ 09:13 by Henry Frazier MD) Allergic dermatitis Anemia Anxiety and depression Atrial fibrillation/flutter Chest pain COPD (chronic obstructive pulmonary disease) Reports he is on 4 L of oxygen at home CRF (chronic renal failure) Dialysis patient Diastolic CHF Elevated troponin Encounter to establish care End stage chronic kidney disease ESRD (end stage renal disease) GERD (gastroesophageal reflux disease) Hypertension Hypertensive emergency Hypoxia Insomnia Lower respiratory tract infection Obstructive sleep apnea Paroxysmal atrial fibrillation with RVR Pleural effusion Resistant hypertension Sebaceous cyst Vitamin D deficiency Surgical History H/O circumcision H/O hand surgery right hand with hardware Presence of peritoneal dialysis catheter S/P dialysis catheter insertion (12/12/19) Removed on 04/04/2020 S/P hemodialysis catheter insertion Family History Other Adopted Denies family history of Anesthesia complication Bleeding disorder Social History Smoking and tobacco status: current every day smoker (1ppd X26 years) cigarettes [ Other cigarette details: On and off quitting and restarting] Alcohol intake: never Household members: significant other Marital status: Single Current occupational status: disabled History of recent travel: Yes Details: [place] Out of state: Yes Vitals/I&O/Wt Last Vital Signs Temp 98.6 F 10/14/21 06:20 Pulse 84 10/14/21 08:40 Resp 28 H 10/14/21 08:40 BP 143/87 10/14/21 08:40 Pulse Ox 95 10/14/21 08:40 Weight last 48 hrs Weight 88.451 kg Physical Exam Narrative: General exam is a white male, who when stimulated answers questions appropriately. When not stimulated he goes back to sleep. HEENT: Pupils equally round. Oropharynx clear. Neck is supple no lymphadenopathy or thyromegaly Cardiovascular regular rate and rhythm without murmur. Chest demonstrates dialysis catheter left chest without overlying erythema Lungs clear no wheezes or crackles Abdomen is soft with positive bowel sounds. No obvious organomegaly exam is deferred Extremities no cyanosis clubbing or edema Skin no rash Neuro no focal deficits, quickly goes back to sleep without stimulation Data : 10/14/21 06:20 10/14/21 06:20 Other Labs: ABG demonstrates a pH of 7.33, PCO2 of 39, PO2 of 81 presumably on 2 to 4 L of oxygen. Calcium 9.4, magnesium 2.1 Troponin 66 at baseline LFTs normal Urinalysis ordered and COVID PCR ordered EKG demonstrates sinus rhythm, left axis deviation, flipped T waves laterally, poor R wave progression. Last echocardiogram 01/17 showed ejection fraction of 70%, biatrial enlargement, moderate tricuspid valve regurgitation, estimated pulmonary artery pressure 40. A&P Assessment and plan (1) Vomiting: Patient reports vomiting over the last 2 to 3 days. Etiology at this point is not known, but abdomen appears benign. LFTs are normal. Will get blood pressure under control, and see if this resolves. Check urinalysis, COVID PCR Nausea control Protonix IV, 40 mg every 12 hours For any diarrhea presents, which patient currently denies, consider further evaluation Status: Acute (2) Hypertensive urgency: Patient with markedly elevated blood pressure upon arrival He reports he has been compliant with his medication lately, but with vomiting it is unknown how effective this is been Blood pressure is now improved, after medication given in the emergency department as well as nicardipine drip. He is to have routine dialysis today per his schedule. Will consult nephrology Continue his home medication Taper off nicardipine as tolerated Goal systolic blood pressure currently 160 over the next 12 hours. Status: Acute (3) Elevated troponin: Patient appears to have chronically elevated troponin Will trend Status: Acute (4) End stage chronic kidney disease: Patient on hemodialysis. Consult nephrology Status: Acute (5) Cough: Patient reports slight cough. Check COVID PCR, chest x-ray Nebs as needed Status: Acute Plan Leukocytosis. Check blood culture. Check urinalysis if urine is still produced. Hyperkalemia, should resolve with dialysis Multiple other medical problems as outlined in past medical history Full code currently Heparin for DVT prophylaxis Attestations Medical Necessity Statement*: Will require less than 2 midnight stay for evaluation and treatment of hypertensive urgency. Coding Level of Care Code Acute Conversion Developer for [facility] Fwd Diagnoses Vomiting R11.10 Hypertensive urgency I16.0 Elevated troponin R77.8 End stage chronic kidney disease N18.6 Cough R05.9
--- NOTE | 2021-10-14 09:09 | XR_ITS ---
WS: [id number] PORTABLE CHEST HISTORY: cough COMPARISON: 06/13/2021 LEFT subclavian dialysis catheter with tips extending over the RIGHT heart. Similar to the prior stud ies. Mild volume loss RIGHT thorax. Small layering RIGHT pleural effusion. Mild pleural thickening and par tial obscuration of the RIGHT diaphragm. There is mild pulmonary venous congestion. Hazy opacificatio n over the lateral RIGHT thorax is probably due to atelectasis in the fluid. Similar to prior studies dating back to 05/25/2021. No pneumothorax. Cardiac size: Moderately enlarged cardiac silhouette. Mediastinum/Aorta: Mild atherosclerosis aorta. Chronic deformity of the LEFT humeral head. Glenohumeral joint erosive destructive changes are noted on prior studies also. This is not an acute finding. XR/XR chest 1V portable [id number] IMPRESSION: 1. Mild pulmonary venous congestion, slightly worsened since the prior study. 2. Small RIGHT pleural effusion with RIGHT basilar atelectasis. Opacification at the RIGHT lung base is probably due to the pleural fluid and atelectasis. 3. Moderate cardiomegaly.
[2021-10-14 09:17] LABS: Troponin 5 2HR 57.51 ng/L (0-15)
[2021-10-14 09:34] LABS: Troponin 5 2HR Delta -8.49 ABS# (0-10)
--- NOTE | 2021-10-14 09:34 | PC.PHAR ---
pt unable to verify medications-pt brought in med bottles and pts verified pts medications-pts states she has been giving the pt clonidine 0.3mg tabs takes 0.15mg po bid-ext med history shows on 10/09/21 0.1mg tid hold am of dialysis [id number]- pts states not able to warehouse order picker the 0.1mg tab from pharmacy-rx bottle brought in had 0.3 mg orally three times a day except on dialysis days (thu,thu,thu) take 0.3mg twice a day filled 07/26/21 30d/s- coreg rx filled 07/29/21 30d/s rx bottle has coreg 50 mg orally twice a day except on dialysis days (thu,thu,thu) takes 50mg daily-pts states the pt takes 50 mg orally twice a day except on dialysis days (thu,thu,thu) takes 50mg at noon and bedtime states the pt is still taking bid just at different times-notes are made in the pharmacy comments
--- NOTE | 2021-10-14 09:53 | PC.NURSE ---
REPORT CALLED TO MAIKEL AMTOS IN ICU.
--- NOTE | 2021-10-14 10:19 | PM.CONSULT ---
Providers/Reason For Consult Consulting Physician/Specialty*: Ashwini Mina DO, telenephrology Reason for Consult*: ESRD Attending Physician: Henry Frazier MD Primary Care Provider: Ricardo Stack MD History of Present Illness History of Present Illness Leopoldo Schaefer is a 46 year old male presented to ER for evaluation of nausea and vomiting. Medications/Allergies Home Medications Medication Instructions Recorded Confirmed Last Taken Type vit B,C-folic ac 800 mcg-zinc 12.5 1 tab PO DAILY 06/09/19 10/14/21 05/24/21 History mg-selen-D3 2,000 unit-vit E tablet (RenaPlex-D) Home oxygen #1 ea 08/07/20 10/14/21 Unknown Rx sucroferric oxyhydroxide 500 mg See Rx Instructions .ROUTE .COMPLEX 11/12/20 10/14/21 05/24/21 History chewable tablet (Velphoro) acetaminophen 500 mg tablet 1,000 mg PO Q4H PRN 02/15/21 10/14/21 Unknown History ondansetron HCl 8 mg tablet 8 mg PO Q8H PRN 02/15/21 10/14/21 10/12/21 History hydroxyzine HCl 25 mg tablet 25 mg PO BID PRN 30 Days #60 tab 02/19/21 10/14/21 Unknown Rx aspirin 81 mg tablet,delayed 81 mg PO QAM 04/03/21 10/14/21 05/24/21 History release fluticasone propionate 50 1 - 2 spray INTRANASAL DAILY PRN 05/25/21 10/14/21 Unknown History mcg/actuation nasal spray,suspension carvedilol 25 mg tablet (Coreg) See Rx Instructions .ROUTE 05/27/21 10/14/21 Unknown Rx .COMPLEX #180 tab hydralazine 100 mg tablet 100 mg PO TID 06/13/21 10/14/21 Unknown History triamcinolone acetonide 0.025 % 1 applic TOPICAL TID PRN 14 Days 06/27/21 10/14/21 Unknown Rx topical ointment #454 g terbinafine HCl 250 mg tablet 250 mg PO DAILY 90 Days #30 tab 07/16/21 10/14/21 Unknown Rx albuterol sulfate 90 mcg/actuation 2 inh INHALATION Q4H PRN #8.5 g 08/20/21 10/14/21 Unknown Rx aerosol inhaler (Ventolin HFA) budesonide-formoterol HFA 160 2 puff INHALATION BID 30 Days 08/20/21 10/14/21 Unknown Rx mcg-4.5 mcg/actuation aerosol #10.2 g inhaler (Symbicort) ipratropium 0.5 mg-albuterol 3 mg 3 ml INHALATION Q8H PRN #90 ml 08/20/21 10/14/21 Unknown Rx (2.5 mg base)/3 mL nebulization soln pantoprazole 40 mg tablet,delayed 40 mg PO BID #180 tab 09/09/21 10/14/21 Unknown Rx release atorvastatin 40 mg tablet 40 mg PO QAM #90 tab 09/13/21 10/14/21 Unknown Rx isosorbide mononitrate 120 mg 120 mg PO DAILY #90 tab 09/13/21 10/14/21 Unknown Rx tablet,extended release 24 hr citalopram 20 mg tablet 20 mg PO QAM 10/14/21 10/14/21 Unknown History clonidine HCl 0.3 mg tablet 0.15 mg PO BID 10/14/21 10/14/21 Unknown History diltiazem HCl 240 mg 240 mg PO QAM 10/14/21 10/14/21 Unknown History capsule,extended release 24 hr trazodone 150 mg tablet 150 mg PO BEDTIME PRN 10/14/21 10/14/21 Unknown History Allergies Allergy/AdvReac Type Severity Reaction Status Date / Time lisinopril Allergy swelling Verified 10/14/21 09:31 Penicillins Allergy ALGY-Hives Verified 10/14/21 09:31 tramadol Allergy ALGY-Hives Verified 10/14/21 09:31 Current Medications Generic Name Dose Route Start Last Admin Trade Name Freq PRN Reason Stop Dose Admin Nicardipine/Sodium Chloride 20 mg in 200 mls @ 0 mls/hr 10/14/21 08:15 10/14/21 09:41 Cardene IV 0 mg/hr .Q0M FRANCISCO 0 mls/hr Titration Protocol Per Protocol PFSH Acute PFSH: Medical History Allergic dermatitis Anemia Anxiety and depression Atrial fibrillation/flutter Chest pain COPD (chronic obstructive pulmonary disease) Reports he is on 4 L of oxygen at home CRF (chronic renal failure) Dialysis patient Diastolic CHF Elevated troponin Encounter to establish care End stage chronic kidney disease ESRD (end stage renal disease) GERD (gastroesophageal reflux disease) Hypertension Hypertensive emergency Hypoxia Insomnia Lower respiratory tract infection Obstructive sleep apnea Paroxysmal atrial fibrillation with RVR Pleural effusion Resistant hypertension Sebaceous cyst Vitamin D deficiency Surgical History H/O circumcision H/O hand surgery right hand with hardware Presence of peritoneal dialysis catheter S/P dialysis catheter insertion (12/12/19) Removed on 04/04/2020 S/P hemodialysis catheter insertion Family History Other Adopted Denies family history of Anesthesia complication Bleeding disorder Social History Smoking and tobacco status: current every day smoker (1ppd X26 years) cigarettes [ Other cigarette details: On and off quitting and restarting] Alcohol intake: never Household members: significant other Marital status: Single Current occupational status: disabled History of recent travel: Yes Details: [place] Out of state: Yes Vitals/I&O/Wt Last Vital Signs Temp 98.6 F 10/14/21 06:20 Pulse 83 10/14/21 09:15 Resp 18 10/14/21 09:45 BP 125/74 10/14/21 09:45 Pulse Ox 92 10/14/21 09:45 10/13/21 10/14/21 10/14/21 22:59 06:59 14:59 Intake Total 64.167 / 64.167 Balance 64.167 / 64.167 Weight last 48 hrs Weight 88.451 kg Data : 10/14/21 06:20 10/14/21 06:20 Micro: Microbiology 10/14/21 09:22 Blood Culture - Preliminary Blood SPECIMEN COLLECTED 10/14/21 09:20 Blood Culture - Preliminary Blood SPECIMEN COLLECTED CXR: Radiologist's impression: 1.? Mild pulmonary venous congestion, slightly worsened since the prior study. 2.? Small RIGHT pleural effusion with RIGHT basilar atelectasis. Opacification at the RIGHT lung base is probably due to the pleural fluid and atelectasis. 3.? Moderate cardiomegaly. A&P Assessment and plan (1) End stage chronic kidney disease: Status: Acute Plan 1. ESRD HD MWF 2. Mild volume overload and hyperkalemia 3. Hypertension Recommend: HD today. 4h, 3.5L UF, 2K bath. Coding Level of Care Code Acute Coppersmith Apprentice for [facility] Fwd Diagnoses End stage chronic kidney disease N18.6
[2021-10-14 12:20] LABS: Adenovirus Not Detected (NOT DETECT); Chlamydia Pneumoniae Not Detected (NOT DETECT); Coronavirus 229E,HKU1,NL63,OC4 Not Detected (NOT DETECT); Human Metapneumovirus Not Detected (NOT DETECT); Human Rhinovirus/Enterovirus Not Detected (NOT DETECT); Influenza A Not Detected (NOT DETECT); Influenza A H1 Not Detected (NOT DETECT); Influenza A H1-2009 Not Detected (NOT DETECT); Influenza A H3 Not Detected (NOT DETECT); Influenza B Not Detected (NOT DETECT); Mycoplasma Pneumoniae Not Detected (NOT DETECT); Parainfluenza Virus Type 1 Not Detected (NOT DETECT); Parainfluenza Virus Type 2 Not Detected (NOT DETECT); Parainfluenza Virus Type 3 Not Detected (NOT DETECT); Parainfluenza Virus Type 4 Not Detected (NOT DETECT); Respiratory Syncytial Virus A Not Detected (NOT DETECT); Respiratory Syncytial Virus B Not Detected (NOT DETECT); SARS-COV-2 Not Detected (NOT DETECT)
[2021-10-14] MEDS: heparin 5,000 unit/mL INJ 1 mL 5000 UNIT SUBCUT ×2 (13:09→22:48)
[2021-10-14] MEDS: pantoprazole 40 mg SDV IVP ×2 (13:09→22:39)
[2021-10-14 13:55] LABS: Troponin 5 6HR 50.48 ng/L (0-15)
[2021-10-14 14:39] LABS: Hepatitis B Surface Antigen Non-Reactive (Nonreactive); Hepatitis C Virus Antibody Non-Reactive (Nonreactive)
[2021-10-14] MEDS: ipratropium-albuterol 3 mL Neb INHALATION ×2 (15:40→20:33)
[2021-10-14] MEDS: hyDRALAzine 50 mg Tablet 100 MG PO ×2 (18:06→22:46)
[2021-10-14] MEDS: budesonide 0.5 mg/2 mL Neb INHALATION (20:32)
[2021-10-14] MEDS: trazodone 150 mg Tablet PO (22:47)
[2021-10-15] VITALS (11 sets, daily range): BP systolic 141–176; BP diastolic 72–87; PULSE 60–83; RESP 16–18; TEMP 36.6–37.1; O2SAT 93–99
[2021-10-15] MEDS: ipratropium-albuterol 3 mL Neb INHALATION ×3 (02:51→14:39)
[2021-10-15 05:59] LABS: Basophils % 0.2 %; Hematocrit 32.7 % (42.0-52.0); Hemoglobin 11.2 g/dL (11.7-16.6); Lymphocytes # 0.8 10^3/uL (0.8-4.8); Lymphocytes % 4.7 %; Mean Corpuscular HGB Conc 34.3 g/dL (30.0-36.0); Mean Corpuscular Hemoglobin 32.5 pg (28.0-34.0); Mean Corpuscular Volume 94.8 fl (80-94); Mean Platelet Volume 9.4 fL (7.4-10.4); Monocytes # 1.2 10^3/uL (0.2-0.9); Monocytes % 7.4 %; Neutrophils # 14.18 10^3/uL (1.8-7.7); Neutrophils % 87.1 %; Nucleated Red Blood Cells % 0 %; Platelet Count 318 10^3/cmm (130-400); Red Blood Count 3.45 10^6/uL (4.1-5.3); Red Cell Distribution Width 15.4 % (12.1-15.1); White Blood Count 16.3 10^3/uL (4.0-10.0)
[2021-10-15 06:34] LABS: Alanine Aminotransferase 8 U/L (0-41); Alkaline Phosphatase 81 IU/L (40-130); Anion Gap 20.7 (5-19); Aspartate Amino Transferase 10 U/L (0-40); Blood Urea Nitrogen 56 mg/dL (6-20); Calcium 9.3 mg/dL (8.5-10.5); Carbon Dioxide 27 mmol/L (22-29); Chloride 93 mmol/L (98-107); Globulin 3.1 g/dL (1.3-4.6); Glomerular Filtration Rate 6.7 mL/min (90-130); Glucose 123 mg/dL (65-115); Magnesium 2.1 mg/dL (1.7-2.3); Osmolality Calculated 297 mOsm/kg (285-295); Potassium 5.7 mmol/L (3.5-5.1); Sodium 135 mmol/L (136-145); Total Bilirubin 0.2 mg/dL (0.15-1.2); Total Protein 7.1 g/dL (6.6-8.7)
[2021-10-15] MEDS: dilTIAZem ER (24HR) 240 mg Capsule PO (06:58)
[2021-10-15] MEDS: atorvastatin 40 mg Tablet PO (06:58)
[2021-10-15] MEDS: citalopram 20 mg Tablet PO (06:58)
[2021-10-15] MEDS: aspirin 81 mg EC Tablet PO (06:58)
--- NOTE | 2021-10-15 08:01 | P.PN_ITS ---
Subjective Subjective: still sob but improved. no n/v/f/c/snyder/d. is weak Medications: Medication Review Details: Current Medications Acetaminophen (Acetaminophen 325 Mg Tablet) 650 mg PO Q6H PRN PRN Reason: MILD PAIN Albuterol/Ipratropium (Ipratropium-Albuterol 3 Ml Neb) 3 ml INHALATION Q6H.RESPIRATORY [facility] Last Admin: 10/15/21 02:51 Dose: 3 ml Documented by: Aspirin (Aspirin 81 Mg Ec Tablet) 81 mg PO QAM [facility] Last Admin: 10/15/21 06:58 Dose: 81 mg Documented by: Atorvastatin Calcium ([facility]atin 40 Mg Tablet) [facility] [place] Last Admin: 10/15/21 06:58 Dose: 40 mg Documented by: Budesonide (Budesonide 0.5 Mg/2 Ml Neb) 0.5 mg INHALATION BID.RESPIRATORY [facility] Last Admin: 10/14/21 20:32 Dose: 0.5 mg Documented by: Carvedilol (Carvedilol 25 Mg Tablet) 50 mg PO BID [facility] Citalopram Hydrobromide (Citalopram 20 Mg Tablet) 20 mg PO QAM [facility] Last Admin: 10/15/21 06:58 Dose: 20 mg Documented by: Clonidine HCl (Clonidine 0.1 Mg Tablet) 0.1 mg PO TID [facility] Diltiazem HCl (Diltiazem Er (24hr) 240 Mg Capsule) 240 mg PO QAM [facility] Last Admin: 10/15/21 06:58 Dose: 240 mg Documented by: Doxycycline Monohydrate (Doxycycline 100 Mg Tablet) 100 mg PO BID [facility]; Protocol Heparin Sodium (Porcine) (Heparin 5,000 Unit/Ml Inj 1 Ml) 5,000 unit SUBCUT Q12H [facility] Last Admin: 10/14/21 22:48 Dose: 5,000 unit Documented by: Hydralazine HCl (Hydralazine 50 Mg Tablet) 100 mg PO TID [facility] Last Admin: 10/14/21 22:46 Dose: 100 mg Documented by: Sodium Chloride (Sodium Chloride 0.9%) 1,000 mls @ 0 mls/hr IV .Q0M PRN PRN Reason: hypotension or symptomatic Isosorbide Mononitrate (Isosorbide Mononitrate Er 60 Mg Tablet) 120 mg PO DAILY [facility] Non-Formulary Medication (Sucroferric Oxyhydroxide [Velphoro]) 1,000 mg PO TIDWM [facility] Last Admin: 10/14/21 17:26 Dose: Not Given Documented by: Ondansetron HCl (Ondansetron 2 Mg/Ml Sdv 2 Ml) 4 mg IVP Q6H PRN PRN Reason: NAUSEA AND VOMITING Pantoprazole Sodium (Pantoprazole 40 Mg Sdv) 40 mg IVP Q12H [facility] Last Admin: 10/14/21 22:39 Dose: 40 mg Documented by: Trazodone HCl (Trazodone 150 Mg Tablet) 150 mg PO BEDTIME PRN PRN Reason: Sleep Last Admin: 10/14/21 22:47 Dose: 150 mg Documented by: Vitals/I&O/Wt Last Vital Signs Temp 98.3 F 10/15/21 04:00 Pulse 74 10/15/21 04:00 Resp 17 10/15/21 04:00 BP 146/80 10/15/21 04:00 Pulse Ox 97 10/15/21 04:00 10/14/21 10/15/21 10/15/21 22:59 06:59 14:59 Intake Total 1020 / 1084.167 135.833 / 1220.000 Output Total 3800 / 3800 Balance -2780 / -2715.833 135.833 / -2580.000 Weight last 48 hrs Weight 95.254 kg Weight 93.2 kg Weight 88.451 kg Physical Exam Narrative: examined w/ RN- NARD vs noted heent- nc/at, eomi neck supple lungs clear heart reg abd soft, nt, nd, + bs ext no edema access- left sided dialysis catheter neuro- a,a, o x3 Data : 10/15/21 05:41 10/15/21 05:41 Micro: Microbiology 10/14/21 09:22 Blood Culture - Preliminary Blood SPECIMEN COLLECTED 10/14/21 09:20 Blood Culture - Preliminary Blood SPECIMEN COLLECTED A&P Assessment and plan (1) End stage renal disease: 46 yr old man 1. eSRD- remains hyperkalemic- extra HD today 3 hr, remove 2.5l, 2k bath 2. HTN -improving 3. hgb okay 4. leukocytosis per medicine seen and examine dw/ rN- telehealth visit time spent 25 min Status: Acute Plan see above Attestations Medical Necessity Statement*: per medicine Time Spent in Patient Care: 16 - 35 minutes (>than 50% of time spent in counselling and/or direct pt care on unit) . Coding Level of Care Code Acute Tipple Mechanic for Shilpa Phillips Diagnoses End stage renal disease N18.6
[2021-10-15] MEDS: isosorbide mononitrate ER 60 mg Tablet 120 MG PO (08:24)
[2021-10-15] MEDS: carvedilol 25 mg Tablet 50 MG PO (08:24)
[2021-10-15] MEDS: pantoprazole 40 mg SDV IVP (08:24)
[2021-10-15] MEDS: doxycycline 100 mg Tablet PO (08:24)
[2021-10-15] MEDS: hyDRALAzine 50 mg Tablet PO (08:35)
[2021-10-15] MEDS: budesonide 0.5 mg/2 mL Neb INHALATION (09:04)
--- NOTE | 2021-10-15 12:47 | P.DS_ITS ---
Discharge Providers Date of Admission: 10/14/21 10:53 Date of Discharge: October 15, 2021 Attending Provider at Admission: Henry Frazier MD Attending Provider at Discharge: Henry Frazier MD Primary Care Provider: Ricardo Stack MD Diagnoses at Discharge Discharge Diagnosis (1) End stage renal disease: Status: Acute Reason for Visit Reason for Visit: N/V/SOB Hospital Course Hospital Course Mr. Schaefer presented to the hospital with shortness of breath, vomiting, markedly elevated blood pressure, and evidence of some heart failure and fluid overload. He reported that he had not recently missed any dialysis. He had had previous hospitalizations with similar presentations. He had not recently had a fever, but had had a cough. He was tested for COVID which was negative. Dialysis was initiated on admission, and the following day. With dialysis blood pressure markedly improved. He did require nicardipine briefly at initiation of hospitalization. By October 15 it was thought he could be discharged home. At that point he reported his shortness of breath was at baseline, he had no swelling, and was able to eat and drink without difficulty with no recurrent nausea and vomiting. Secondary to an elevated white count, and some obscuration of the left hemidiaphragm costophrenic angle he was placed on doxycycline for 7 days. He will follow-up with his primary care provider, as well as nephrology. Blood cultures were obtained on admission, and negative at time of discharge. Physical Exam Narrative: General exam is no distress Neck is supple Cardiovascular regular rate and rhythm without murmur Lungs clear Abdomen is soft with positive bowel sounds Extremities no cyanosis clubbing or edema Discharge Data Studies Completed and Pending Completed Studies During Hospitalization Category Date Time Status XR chest 1V portable [id number] Routine Exams 10/14/21 09:09 Completed Pending at discharge Category Date Time Status Blood Culture Stat Lab 10/14/21 09:22 Results Urinalysis Stat Lab 10/14/21 06:25 Uncollected Radiology Impressions Chest X-Ray 10/14/21 09:09 IMPRESSION: 1. Mild pulmonary venous congestion, slightly worsened since the prior study. 2. Small RIGHT pleural effusion with RIGHT basilar atelectasis. Opacification at the RIGHT lung base is probably due to the pleural fluid and atelectasis. 3. Moderate cardiomegaly. Laboratory Results WBC 16.3 10^3/uL (4.0-10.0) H 10/15/21 05:41 RBC 3.45 10^6/uL (4.1-5.3) L 10/15/21 05:41 Hgb 11.2 g/dL (11.7-16.6) L 10/15/21 05:41 Hct 32.7 % (42.0-52.0) L 10/15/21 05:41 MCV 94.8 fl (80-94) H 10/15/21 05:41 MCH 32.5 pg (28.0-34.0) 10/15/21 05:41 MCHC 34.3 g/dL (30.0-36.0) 10/15/21 05:41 RDW 15.4 % (12.1-15.1) H 10/15/21 05:41 Plt Count 318 10^3/cmm (130-400) 10/15/21 05:41 MPV 9.4 fL (7.4-10.4) 10/15/21 05:41 Neut % (Auto) 87.1 % 10/15/21 05:41 Lymph % (Auto) 4.7 % 10/15/21 05:41 [place] % (Auto) 7.4 % 10/15/21 05:41 Eos % (Auto) 0.0 % 10/15/21 05:41 Baso % (Auto) 0.2 % 10/15/21 05:41 Neut # (Auto) 14.18 10^3/uL (1.8-7.7) H 10/15/21 05:41 Lymph # (Auto) 0.8 10^3/uL (0.8-4.8) 10/15/21 05:41 [place] # (Auto) 1.2 10^3/uL (0.2-0.9) H 10/15/21 05:41 Eos # (Auto) 0.0 10^3/uL (0.0-0.8) 10/15/21 05:41 Baso # (Auto) 0.0 10^3/uL (0.0-0.1) 10/15/21 05:41 Nucleated RBC % (auto) 0 % 10/15/21 05:41 Nucleated RBCs # 0.0 /100WBC 10/15/21 05:41 Specimen Type Arterial 10/14/21 08:04 Sample Site Radial, right 10/14/21 08:04 ABG pH 7.33 (7.35-7.45) L 10/14/21 08:04 ABG pCO2 38.9 mmHg (35-45) 10/14/21 08:04 ABG pO2 81.3 mmHg (80.0-100.0) 10/14/21 08:04 ABG HCO3 20.5 mmol/L (22-26) L 10/14/21 08:04 ABG O2 Saturation 96.4 10/14/21 08:04 ABG Base Excess -5.0 mmol/L (-2.0-2.0) L 10/14/21 08:04 Shantanu Test Pos 10/14/21 08:04 A-a O2 Gradient 9.0 mmHg (5-10) 10/14/21 08:04 Hematocrit 37.9 % (42-52) L 10/14/21 08:04 Hgb O2 Saturation 93.8 % (95-100) L 10/14/21 08:04 Carboxyhemoglobin 2.1 %THgb (0.4-20.1) 10/14/21 08:04 Methemoglobin 0.6 % (0.4-1.5) 10/14/21 08:04 Total Hemoglobin 12.4 g/dL (14-18) L 10/14/21 08:04 Sodium 135.0 mmol/L (131-143) 10/14/21 08:04 Potassium 6.0 mmol/L (3.5-5.0) H 10/14/21 08:04 Glucose 80.0 mg/dL (70-115) 10/14/21 08:04 Ionized Calcium 1.3 mmol/L (1.1-1.4) 10/14/21 08:04 O2 Delivery Device Nc 10/14/21 08:04 O2 Liters/Min 2.0 % 10/14/21 08:04 FiO2 28.0 % 10/14/21 08:04 Call Taker ID glc 10/14/21 08:04 Sodium 135 mmol/L (136-145) L 10/15/21 05:41 Potassium 5.7 mmol/L (3.5-5.1) H 10/15/21 05:41 Chloride 93 mmol/L (98-107) L 10/15/21 05:41 Carbon Dioxide 27 mmol/L (22-29) 10/15/21 05:41 Anion Gap 20.7 (5-19) H 10/15/21 05:41 BUN 56 mg/dL (6-20) H 10/15/21 05:41 Creatinine 8.5 mg/dL (0.7-1.2) H* 10/15/21 05:41 GFR Calculation 6.7 mL/min (90-130) L 10/15/21 05:41 Glucose 123 mg/dL (65-115) H 10/15/21 05:41 POC Glucose 81 mg/dL (70-110) 10/14/21 06:30 Calculated Osmolality 297 mOsm/kg (285-295) H 10/15/21 05:41 Calcium 9.3 mg/dL (8.5-10.5) 10/15/21 05:41 Magnesium 2.1 mg/dL (1.7-2.3) 10/15/21 05:41 Total Bilirubin 0.2 mg/dL (0.15-1.2) 10/15/21 05:41 AST 10 U/L (0-40) 10/15/21 05:41 ALT 8 U/L (0-41) 10/15/21 05:41 Alkaline Phosphatase 81 IU/L (40-130) 10/15/21 05:41 Troponin T Baseline 66 ng/L (0-15) H 10/14/21 06:20 Troponin T 120 Minute 57.51 ng/L (0-15) H 10/14/21 08:36 Delta Troponin T -8.49 ABS# (0-10) L 10/14/21 08:36 Troponin T Hi Sens 6Hr 50.48 ng/L (0-15) H 10/14/21 13:30 Troponin T Hi Sens 6Hr Delta -15.52 ng/L (0-12) L 10/14/21 13:30 Total Protein 7.1 g/dL (6.6-8.7) 10/15/21 05:41 Albumin 4.0 g/dL (3.5-5.2) 10/15/21 05:41 Globulin 3.1 g/dL (1.3-4.6) 10/15/21 05:41 Coronavirus 229E (PCR) Not detected (NOT DETECT) 10/14/21 10:00 Hep Bs Antigen Non-reactive (Nonreactive) 10/14/21 13:30 Hepatitis C Antibody Non-reactive (Nonreactive) 10/14/21 13:30 SARS-CoV-2 (PCR) Not detected (NOT DETECT) 10/14/21 10:00 Vitals Last Vital Signs Temp 97.8 F 10/15/21 12:00 Pulse 60 10/15/21 12:00 Resp 16 10/15/21 12:00 BP 141/73 10/15/21 12:00 Pulse Ox 99 10/15/21 08:57 Discharge Plan Discharge Patient Disposition: Home Condition: Stable Prescriptions: New doxycycline monohydrate 100 mg Tablet 100 mg PO BID Qty: 13 0RF Continued Velphoro 500 mg tablet,chewable See Rx Instructions .ROUTE .COMPLEX 0RF Rx Instructions: 3 tabs po with meals and 2-3 tabs po with snacks hydroxyzine HCl 25 mg tablet 25 mg PO BID PRN (Reason: itching) 30 Days Qty: 60 0RF terbinafine HCl 250 mg tablet 250 mg PO DAILY 90 Days Qty: 30 2RF RenaPlex-D 800 mcg-12.5 mg -2,000 unit tablet 1 tab PO DAILY 0RF (DME) Home oxygen See Rx Instructions .Route .MEDSUPPLY Qty: 1 0RF Rx Instructions: As directed albuterol sulfate [Ventolin HFA] 90 mcg/actuation HFA aerosol inhaler 2 inh inhalation Q4H PRN (Reason: shortness of breath or wheezing) Qty: 8.5 2RF budesonide-formoterol [Symbicort] 160-4.5 mcg/actuation HFA aerosol inhaler 2 puff inhalation BID 30 Days Qty: 10.2 2RF ipratropium-albuterol 0.5 mg-3 mg(2.5 mg base)/3 mL solution for nebulization 3 ml inhalation Q8H PRN (Reason: shortness of breath or wheezing) Qty: 90 2RF triamcinolone acetonide 0.025 % ointment 1 applic topical TID PRN (Reason: allergic reaction) 14 Days Qty: 454 1RF pantoprazole 40 mg tablet,delayed release (DR/EC) 40 mg PO BID Qty: 180 1RF atorvastatin 40 mg tablet 40 mg PO QAM Qty: 90 1RF isosorbide mononitrate 120 mg tablet extended release 24 hr 120 mg PO DAILY Qty: 90 1RF fluticasone propionate 50 mcg/actuation spray,suspension 1 - 2 spray INTRANASAL DAILY PRN (Reason: Allergy Symptoms) 0RF carvedilol [Coreg] 25 mg tablet See Rx Instructions .ROUTE .COMPLEX Qty: 180 1RF Rx Instructions: 50 mg orally twice a day except on dialysis days (mon,wed,fri) takes 50mg at noon and bedtime hydralazine 100 mg tablet 100 mg PO TID 0RF ondansetron HCl 8 mg tablet 8 mg PO Q8H PRN (Reason: Nausea And Vomiting) 0RF acetaminophen 500 mg Tablet 1,000 mg PO Q4H PRN (Reason: Pain) 0RF aspirin 81 mg tablet,delayed release (DR/EC) 81 mg PO QAM 0RF diltiazem HCl 240 mg capsule,extended release 24hr 240 mg PO QAM 0RF citalopram 20 mg tablet 20 mg PO QAM 0RF trazodone 150 mg tablet 150 mg PO BEDTIME PRN (Reason: Sleep) 0RF clonidine HCl 0.3 mg tablet 0.15 mg PO BID 0RF Discharge Orders: Discharge Order (Routine); Ordered 10/15/21 Ordered By: Henry Frazier Referrals: Handy Pillai MD [Referring] - 4-7 days Nish Stack MD [Hospitalist] - 4-7 days Ricardo Stack MD [Primary Care Provider] - Discharge Diet: Usual diet Discharge Activity: Increase activity as tolerated Patient Instructions: Opioid Safety Activity Restrictions/Additional Instructions: Resume your home oxygen at 4 L/day Keep regular dialysis follow-ups Follow renal dialysis diet Follow-up with your 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 Finish course of antibiotic as prescribed. May discharge following dialysis. Discharge Attestations Time Spent in Discharge Care*: greater than 30 min Status at Discharge: Cognitive status at discharge: cognitively intact , Behavioral status at discharge: cooperative , Quality Metrics Clinical Quality Measures [ No reported AMI, CVA or VTE this stay] Coding Level of Care Code Acute Chg FW DC note Diagnoses End stage renal disease N18.6
--- NOTE | 2021-10-15 13:06 | PC.SOCIAL ---
[employer] note Medicaid ride set up with oxygen. Per Marta patient does not need oxygen for ride home. Trip Id [id number]
--- NOTE | 2021-10-15 16:51 | PC.SOCIAL ---
Update Called to check on patient's ride with [facility], ride was escalated and they asked CM to call back in 30 min. CM spoke with Myrna on [employer] and gave her the trip number, instructed to call in 30 min.
--- NOTE | 2021-10-15 18:16 | PC.NURSE ---
dc'd pts piv. dialysis completed today, complications. follow up appointments made, rx sent to pharmacy. pt left ambulating per his request to private vehicle. all belongings sent and medications grabbed from [facility]
== END 2021-10-15 18:16 | disposition home or self-care (01) ==
LOC: ER 07:01 → ICU 14:36 → MEDSURG 15:31
PROVIDERS: Internal Medicine; Admitting Provider Internal Medicine; Emergency Provider Family Medicine; PCP Radiology Diagnostic Radiology; Visit Provider Internal Medicine
DX: I13.2 Hypertensive heart and chronic kidney disease with heart failure and with stage 5 chronic kidney disease, or end stage renal disease (principal); N18.6 End stage renal disease; I50.30 Unspecified diastolic (congestive) heart failure; Z99.2 Dependence on renal dialysis; R11.10 Vomiting, unspecified; I16.0 Hypertensive urgency; R77.8 Other specified abnormalities of plasma proteins; I48.91 Unspecified atrial fibrillation; G47.33 Obstructive sleep apnea (adult) (pediatric); F17.210 Nicotine dependence, cigarettes, uncomplicated
CPT/HCPCS: 36415; 36416; 36600; 71045; 80051; 80053; 82330; 82805; 82962; 83735; 84484; 85025; 86803; 87040; 87340; 87635; 93005; 94640; 96372; 96374; 96375; 99285; C9113; G0378; J0360; J1644; J2405; J3490; J7614; J7626; Q3014

== ENCOUNTER 2021-10-28 05:59 | Observation (INO) | payer MEDICARE, MEDICAID, SELFPAY ==
[2021-10-28] VITALS (14 sets, daily range): BP systolic 116–238; BP diastolic 72–114; PULSE 73–96; RESP 14–24; TEMP 36.4–36.9; O2SAT 3–99; BMI 30.1; BMI 29.3
--- NOTE | 2021-10-28 06:26 | XRR_ITS ---
PROCEDURE INFORMATION: Exam: XR Chest Exam date and time: 10/28/2021 6:38 AM Age: 46 years old Clinical indication: Shortness of breath; Patient HX: SOB since yesterday TECHNIQUE: Imaging protocol: Radiologic exam of the chest. Views: 1 view. COMPARISON: CR XR chest 1V portable [id number] 10/14/2021 9:24 AM FINDINGS: Tubes, catheters and devices: Large bore left-sided central venous line noted with the distal tip in the right atrium. Lungs: Consolidation in the mid and lower right lung again noted. The left lung remains clear. Mildly prominent interstitial markings. Pleural spaces: Small right-sided pleural effusion again noted. Heart/Mediastinum: Stable cardiomegaly. Bones/joints: Unremarkable. XR/XR chest 1V portable [id number] IMPRESSION: 1. Stable cardiomegaly. 2. Right-sided pleural effusion. 3. Consolidation in the right lower lung may be consistent with pulmonary edema versus pneumonia.
--- NOTE | 2021-10-28 06:28 | ECG_ITS ---
[facility] Test Date: 2021-10-28 Pat Name: Leopoldo Schaefer Department: Room: Gender: Male Historical Interpreter: : 1975 Requested By: Wil Castro Order Number: [id number] Roderick MD: Willard Vigil M.D. Measurements Intervals [place] Rate: 87 P: 57 MS: 226 QRS: -2 QRSD: 100 T: 99 QT: 358 QTc: 431 Interpretive Statements SINUS RHYTHM WITH FIRST DEGREE AV BLOCK MODERATE T-WAVE ABNORMALITY, CONSIDER LATERAL ISCHEMIA [-0.1+ mV T-WAVE IN I/aVL/V5/V6] Compared to ECG 10/14/2021 08:34:24 First degree AV block now present T-wave abnormality now present Possible ischemia now present Myocardial infarct finding no longer present Electronically Signed On 10-28-2021 9:32:45 CDT by Willard Vigil M.D. [id number]
--- NOTE | 2021-10-28 06:45 | PC.NURSE ---
Report received from SHAWNA Dumont. In report Julia stated all orders had been completed.
[2021-10-28 06:46] LABS: Basophils # 0.1 10^3/uL (0.0-0.1); Basophils % 0.4 %; Eosinophils # 0.1 10^3/uL (0.0-0.8); Eosinophils % 0.9 %; Hematocrit 30.7 % (42.0-52.0); Hemoglobin 9.7 g/dL (11.7-16.6); Lymphocytes # 0.5 10^3/uL (0.8-4.8); Lymphocytes % 3.9 %; Mean Corpuscular HGB Conc 31.6 g/dL (30.0-36.0); Mean Corpuscular Hemoglobin 32.2 pg (28.0-34.0); Mean Platelet Volume 9.5 fL (7.4-10.4); Monocytes # 1.1 10^3/uL (0.2-0.9); Monocytes % 8.7 %; Neutrophils # 11.23 10^3/uL (1.8-7.7); Neutrophils % 85.7 %; Nucleated Red Blood Cells % 0 %; Platelet Count 230 10^3/cmm (130-400); Red Blood Count 3.01 10^6/uL (4.1-5.3); Red Cell Distribution Width 13.5 % (12.1-15.1); White Blood Count 13.1 10^3/uL (4.0-10.0)
--- NOTE | 2021-10-28 06:50 | W.ED.SOB ---
HPI - SOB/Dyspnea General: Chief Complaint: Shortness of Breath/Dyspnea Stated Complaint: SOB Time Seen by Provider: 10/28/21 06:15 Source: patient Mode of arrival: EMS Limitations: no limitations History of Present Illness: HPI Narrative: 46-year-old male presents emergency room complaining of shortness of breath dizziness orthopnea patient is chronically on 4 L by nasal cannula and he is remaining on 4 L now. Patient is end-stage renal disease on hemodialysis missed his dialysis 2 days ago. States he was unable to get a ride. This has been a recurrent problem for him he lives quite a distance from the dialysis out of town and is unable to get friends family or anyone else to give him a ride into town. He states that when he misses dialysis. He was in2 weeks ago under similar conditions and was admitted overnight for dialysis. He denies any chest pain. He states he has had this slight shortness of breath and cough is pretty much at his baseline. No abdominal pain noted vomiting or diarrhea. MD elicited complaint: shortness of breath Pertinent past history: other Context: other (End-stage renal disease) Timing: constant Severity: mild Exacerbating factors: nothing Relieving factors: nothing Associated symptoms: Deny abdominal pain, chest congestion, chest pain, cough, diaphoresis, dizziness, extremity pain, fever(s), hemoptysis, lightheadedness, myalgias, nausea, orthopnea, palpitations, paresthesias, polydipsia, polyuria, rash, sense of impending doom, syncope or vomiting Treatment prior to arrival: bronchodilator Review of Systems Const: Reports: fatigue; Denies: fever(s), chills, malaise or diaphoresis ENMT: Denies: throat pain, ear or mastoid pain, nasal discharge or nasal congestion Card: Denies: chest pain, palpitations, lightheadedness, syncope or orthopnea Resp: Reports: dyspnea and non-productive cough; Denies: productive cough, hemoptysis or chest congestion GI: Denies: abdominal pain, nausea or vomiting : Denies: flank pain, difficulty urinating, dysuria, urinary frequency or urinary urgency Musc: Denies: neck pain, back pain or extremity pain Skin/Breast: Denies: rash or pruritus Neuro: Denies: dizziness Endo: Denies: polyuria or polydipsia PFS ED PFSH: Medical History (Updated 10/28/21 @ 08:47 by Edwin Hansen DO) Allergic dermatitis Anemia Anxiety and depression Atrial fibrillation/flutter Chest pain COPD (chronic obstructive pulmonary disease) Reports he is on 4 L of oxygen at home CRF (chronic renal failure) Dialysis patient Diastolic CHF Elevated troponin Encounter to establish care End stage chronic kidney disease ESRD (end stage renal disease) GERD (gastroesophageal reflux disease) Hypertension Hypertensive emergency Hypoxia Insomnia Lower respiratory tract infection Obstructive sleep apnea Paroxysmal atrial fibrillation with RVR Pleural effusion Resistant hypertension Sebaceous cyst Vitamin D deficiency Surgical History H/O circumcision H/O hand surgery right hand with hardware Presence of peritoneal dialysis catheter S/P dialysis catheter insertion (12/12/19) Removed on 04/04/2020 S/P hemodialysis catheter insertion Family History Other Adopted Denies family history of Anesthesia complication Bleeding disorder Social History Smoking and tobacco status: current every day smoker (1ppd X26 years) cigarettes [ Other cigarette details: On and off quitting and restarting] Alcohol intake: never Household members: significant other Marital status: Single Current occupational status: disabled History of recent travel: Yes Details: [place] Out of state: Yes Physical Exam Const: GENERAL APPEARANCE: cooperative and comfortable ORIENTATION/CONSCIOUSNESS: Yes awake, Yes oriented to person, Yes oriented to place and Yes oriented to time HENMT: COMMON NORMALS: normocephalic, atraumatic and hearing grossly normal bilaterally HEAD & SCALP: normocephalic and atraumatic Resp: COMMON NORMALS: normal respiratory effort, No retractions, No use of accessory muscles and clear to auscultation bilaterally AUSCULTATION: clear to auscultation bilaterally Cardio: COMMON NORMALS: regular rate, regular rhythm and No murmurs present (Cardio) RATE: regular rate RHYTHM: regular rhythm GI: COMMON NORMALS: Soft to palpation and No hepatosplenomegaly present AUSCULTATION: Yes normoactive bowel sounds PALPATION: Yes Soft to palpation, No Tenderness to palpation present (GI), No Guarding due to palpation present (GI) and Yes No hepatosplenomegaly present Extremity: GENERAL: Yes edema Neuro: SENSORIUM/ORIENTATION: Yes oriented to person, Yes oriented to place and Yes oriented to time Skin: COMMON NORMALS: no rashes or lesions noted GENERAL SKIN EXAM: no rashes or lesions noted Course Vital Signs: Vital signs: Vital Signs Temperature 98.4 F 10/28/21 06:04 Pulse Rate 93 10/28/21 08:30 Respiratory Rate 18 10/28/21 08:30 Blood Pressure 238/114 10/28/21 08:30 Pulse Oximetry 93 10/28/21 08:30 Oxygen Delivery Me thod 10/28/21 08:30 Oxygen Flow Rate 4 10/28/21 08:08 MDM - SOB/Dyspnea Medical Decision Making End-stage renal disease with elevated potassium and markedly worsening creatinine due to noncompliance with his dialysis regimen. He has increased shortness of breath asymptomatic. He is maintaining his oxygen sats on his usual oxygen supplement of 4 lpm. Medical Records I reviewed the patient's medical records. Lab Data I reviewed the patient's lab results. : 10/28/21 06:22 10/28/21 06:22 Labs/Radiology: Radiology Impressions Chest X-Ray 10/28/21 06:26 IMPRESSION: 1. Stable cardiomegaly. 2. Right-sided pleural effusion. 3. Consolidation in the right lower lung may be consistent with pulmonary edema versus pneumonia. Laboratory Results WBC 13.1 10^3/uL (4.0-10.0) H 10/28/21 06:22 RBC 3.01 10^6/uL (4.1-5.3) L 10/28/21 06:22 Hgb 9.7 g/dL (11.7-16.6) L 10/28/21 06:22 Hct 30.7 % (42.0-52.0) L 10/28/21 06:22 MCV 102.0 fl (80-94) H 10/28/21 06:22 MCH 32.2 pg (28.0-34.0) 10/28/21 06:22 MCHC 31.6 g/dL (30.0-36.0) 10/28/21 06:22 RDW 13.5 % (12.1-15.1) 10/28/21 06:22 Plt Count 230 10^3/cmm (130-400) 10/28/21 06:22 MPV 9.5 fL (7.4-10.4) 10/28/21 06:22 Neut % (Auto) 85.7 % 10/28/21 06:22 Lymph % (Auto) 3.9 % 10/28/21 06:22 [place] % (Auto) 8.7 % 10/28/21 06:22 Eos % (Auto) 0.9 % 10/28/21 06:22 Baso % (Auto) 0.4 % 10/28/21 06:22 Neut # (Auto) 11.23 10^3/uL (1.8-7.7) H 10/28/21 06:22 Lymph # (Auto) 0.5 10^3/uL (0.8-4.8) L 10/28/21 06:22 [place] # (Auto) 1.1 10^3/uL (0.2-0.9) H 10/28/21 06:22 Eos # (Auto) 0.1 10^3/uL (0.0-0.8) 10/28/21 06:22 Baso # (Auto) 0.1 10^3/uL (0.0-0.1) 10/28/21 06:22 Nucleated RBC % (auto) 0 % 10/28/21 06:22 Nucleated RBCs # 0.0 /100WBC 10/28/21 06:22 Sodium 133 mmol/L (136-145) L 10/28/21 06:22 Potassium 6.4 mmol/L (3.5-5.1) H 10/28/21 06:22 Chloride 98 mmol/L (98-107) 10/28/21 06:22 Carbon Dioxide 19 mmol/L (22-29) L 10/28/21 06:22 Anion Gap 22.4 (5-19) H 10/28/21 06:22 BUN 84 mg/dL (6-20) H* 10/28/21 06:22 Creatinine 15.4 mg/dL (0.7-1.2) H* 10/28/21 06:22 GFR Calculation 3.4 mL/min (90-130) L 10/28/21 06:22 Glucose 93 mg/dL (65-115) 10/28/21 06:22 Calculated Osmolality 301 mOsm/kg (285-295) H 10/28/21 06:22 Lactate 0.6 mmol/L (0.5-2.2) 10/28/21 06:22 Calcium 9.2 mg/dL (8.5-10.5) 10/28/21 06:22 Phosphorus 4.0 mg/dL (2.5-4.5) 10/28/21 06:22 Magnesium 2.0 mg/dL (1.7-2.3) 10/28/21 06:22 Total Bilirubin 0.4 mg/dL (0.15-1.2) 10/28/21 06:22 AST 7 U/L (0-40) 10/28/21 06:22 ALT 8 U/L (0-41) 10/28/21 06:22 Alkaline Phosphatase 73 IU/L (40-130) 10/28/21 06:22 C-Reactive Protein 90.1 mg/L (0.0-4.9) H 10/28/21 06:22 Total Protein 6.7 g/dL (6.6-8.7) 10/28/21 06:22 Albumin 3.5 g/dL (3.5-5.2) 10/28/21 06:22 Globulin 3.2 g/dL (1.3-4.6) 10/28/21 06:22 Discharge Plan Discharge Patient Disposition: Admitted As Inpatient Clinical Impression: End stage renal disease, COPD (chronic obstructive pulmonary disease), Hyperkalemia, Non-compliance with renal dialysis Condition: Stable Prescriptions: No Action Velphoro 500 mg tablet,chewable See Rx Instructions .ROUTE .COMPLEX Rx Instructions: 3 tabs po with meals and 2-3 tabs po with snacks hydroxyzine HCl 25 mg tablet 25 mg PO BID PRN (Reason: itching) 30 Days Qty: 60 0RF terbinafine HCl 250 mg tablet 250 mg PO DAILY 90 Days Qty: 30 2RF RenaPlex-D 800 mcg-12.5 mg -2,000 unit tablet 1 tab PO DAILY (DME) Home oxygen See Rx Instructions .Route .MEDSUPPLY Qty: 1 0RF Rx Instructions: As directed albuterol sulfate [Ventolin HFA] 90 mcg/actuation HFA aerosol inhaler 2 inh inhalation Q4H PRN (Reason: shortness of breath or wheezing) Qty: 8.5 2RF budesonide-formoterol [Symbicort] 160-4.5 mcg/actuation HFA aerosol inhaler 2 puff inhalation BID 30 Days Qty: 10.2 2RF ipratropium-albuterol 0.5 mg-3 mg(2.5 mg base)/3 mL solution for nebulization 3 ml inhalation Q8H PRN (Reason: shortness of breath or wheezing) Qty: 90 2RF triamcinolone acetonide 0.025 % ointment 1 applic topical TID PRN (Reason: allergic reaction) 14 Days Qty: 454 1RF pantoprazole 40 mg tablet,delayed release (DR/EC) 40 mg PO BID Qty: 180 1RF atorvastatin 40 mg tablet 40 mg PO QAM Qty: 90 1RF fluticasone propionate 50 mcg/actuation spray,suspension 1 - 2 spray INTRANASAL DAILY PRN (Reason: Allergy Symptoms) carvedilol [Coreg] 25 mg tablet See Rx Instructions .ROUTE .COMPLEX Qty: 180 1RF Rx Instructions: 50 mg orally twice a day except on dialysis days (mon,wed,fri) takes 50mg at noon and bedtime hydralazine 100 mg tablet 100 mg PO TID ondansetron HCl 8 mg tablet 8 mg PO Q8H PRN (Reason: Nausea And Vomiting) acetaminophen 500 mg Tablet 1,000 mg PO Q4H PRN (Reason: Pain) aspirin 81 mg tablet,delayed release (DR/EC) 81 mg PO QAM diltiazem HCl 240 mg capsule,extended release 24hr 240 mg PO QAM citalopram 20 mg tablet 20 mg PO QAM trazodone 150 mg tablet 150 mg PO BEDTIME PRN (Reason: Sleep) clonidine HCl 0.3 mg tablet 0.15 mg PO BID doxycycline monohydrate 100 mg Tablet 100 mg PO BID Qty: 13 0RF Rx Instructions: PT DIDNT START MEDICATION isosorbide mononitrate 120 mg tablet extended release 24 hr 120 mg PO QAM Referrals: Ricardo Stack MD [Primary Care Provider] - Coding Level of Care Code ED Breast Surgeon for Chg Fwd Exam Detailed
[2021-10-28 06:57] LABS: Alanine Aminotransferase 8 U/L (0-41); Albumin Level 3.5 g/dL (3.5-5.2); Alkaline Phosphatase 73 IU/L (40-130); Anion Gap 22.4 (5-19); Aspartate Amino Transferase 7 U/L (0-40); C Reactive Protein 90.1 mg/L (0.0-4.9); Calcium 9.2 mg/dL (8.5-10.5); Carbon Dioxide 19 mmol/L (22-29); Chloride 98 mmol/L (98-107); Creatinine Clr Calc Pharmacy 6.7956; Globulin 3.2 g/dL (1.3-4.6); Glomerular Filtration Rate 3.4 mL/min (90-130); Glucose 93 mg/dL (65-115); Osmolality Calculated 301 mOsm/kg (285-295); Potassium 6.4 mmol/L (3.5-5.1); Sodium 133 mmol/L (136-145); Total Bilirubin 0.4 mg/dL (0.15-1.2); Total Protein 6.7 g/dL (6.6-8.7)
[2021-10-28 06:58] LABS: Lactate (Lactic Acid level) 0.6 mmol/L (0.5-2.2)
[2021-10-28 07:17] LABS: Blood Urea Nitrogen 84 mg/dL (6-20)
[2021-10-28] MEDS: isosorbide mononitrate ER 60 mg Tablet 120 MG PO (07:53)
[2021-10-28] MEDS: hyDRALAzine 20 mg/mL INJ 1 mL IVP (07:57)
[2021-10-28] MEDS: sodium polystyrene sulfonate 15 gm/60 mL Btl 30 GM PO (08:00)
[2021-10-28] MEDS: sodium bicarbonate 8.4% 1 mEq/mL 50mL Syr 100 MEQ IVP (08:00)
--- NOTE | 2021-10-28 08:00 | PM.HP ---
Providers/Chief Complaint Admitting Physician: Henry Frazier MD, hospitalist Primary Care Provider: Ricardo Stack MD Chief Complaint: SOB History of Present Illness Leopoldo Schaefer is a 46 year old male who presents to the emergency department complaining of some shortness of breath. He reports he did not receive his regular dialysis on Thursday, secondary to transportation issues. He reported he got a full run on Thursday without any difficulty. Today, as he was short of breath he did not go to dialysis but instead presented to the emergency department. He denies any fevers, nausea, vomiting, cough. He reports he frequently has transportation issues to dialysis. He denies any homicidal ideation or suicidal ideation. Denies any chest discomfort. Review of Systems General: Reports: 10 or more systems reviewed and unremarkable except in HPI and below Const: Denies: fever(s) Eyes: Denies: change in vision ENMT: Denies: throat pain Card: Reports: orthopnea; Denies: chest pain Resp: Reports: dyspnea GI: Denies: abdominal pain, nausea or vomiting : Denies: flank pain Musc: Denies: neck pain Skin/Breast: Denies: rash Neuro: Denies: headache(s) Psych: Denies: anxiety or depression Endo: Denies: polyuria Gene/Lymph: Denies: easy bruising All/Imm: Denies: urticaria Medications/Allergies Home Medications Medication Instructions Recorded Confirmed Last Taken Type vit B,C-folic ac 800 mcg-zinc 12.5 1 tab PO DAILY 06/09/19 10/14/21 05/24/21 History mg-selen-D3 2,000 unit-vit E tablet (RenaPlex-D) Home oxygen #1 ea 08/07/20 10/14/21 Unknown Rx sucroferric oxyhydroxide 500 mg See Rx Instructions .Route .COMPLEX 11/12/20 10/14/21 05/24/21 History chewable tablet (Velphoro) acetaminophen 500 mg tablet 1,000 mg PO Q4H PRN Pain 02/15/21 10/14/21 Unknown History ondansetron HCl 8 mg tablet 8 mg PO Q8H PRN Nausea And Vomiting 02/15/21 10/14/21 10/12/21 History hydroxyzine HCl 25 mg tablet 25 mg PO BID PRN itching 30 days 02/19/21 10/14/21 Unknown Rx #60 tabs aspirin 81 mg tablet,delayed 81 mg PO QAM 04/03/21 10/14/21 05/24/21 History release fluticasone propionate 50 1 - 2 spray intranasal DAILY PRN 05/25/21 10/14/21 Unknown History mcg/actuation nasal Allergy Symptoms spray,suspension carvedilol 25 mg tablet (Coreg) See Rx Instructions .Route 05/27/21 10/14/21 Unknown Rx .COMPLEX #180 tabs hydralazine 100 mg tablet 100 mg PO TID 06/13/21 10/14/21 Unknown History triamcinolone acetonide 0.025 % 1 applic topical TID PRN allergic 06/27/21 10/14/21 Unknown Rx topical ointment reaction 14 days #454 grams terbinafine HCl 250 mg tablet 250 mg PO DAILY 90 days #30 tabs 07/16/21 10/14/21 Unknown Rx albuterol sulfate 90 mcg/actuation 2 inh inhalation Q4H PRN shortness 08/20/21 10/14/21 Unknown Rx aerosol inhaler (Ventolin HFA) of breath or wheezing #8.5 grams budesonide-formoterol HFA 160 2 puff inhalation BID 30 days 08/20/21 10/14/21 Unknown Rx mcg-4.5 mcg/actuation aerosol #10.2 grams inhaler (Symbicort) ipratropium 0.5 mg-albuterol 3 mg 3 ml inhalation Q8H PRN shortness 08/20/21 10/14/21 Unknown Rx (2.5 mg base)/3 mL nebulization of breath or wheezing #90 mL soln pantoprazole 40 mg tablet,delayed 40 mg PO BID #180 tabs 09/09/21 10/14/21 Unknown Rx release atorvastatin 40 mg tablet 40 mg PO QAM #90 tabs 09/13/21 10/14/21 Unknown Rx citalopram 20 mg tablet 20 mg PO QAM 10/14/21 10/14/21 Unknown History clonidine HCl 0.3 mg tablet 0.15 mg PO BID 10/14/21 10/14/21 Unknown History diltiazem HCl 240 mg 240 mg PO QAM 10/14/21 10/14/21 Unknown History capsule,extended release 24 hr trazodone 150 mg tablet 150 mg PO BEDTIME PRN Sleep 10/14/21 10/14/21 Unknown History doxycycline monohydrate 100 mg 100 mg PO BID #13 tabs 10/15/21 Unknown Rx tablet isosorbide mononitrate 120 mg 120 mg PO QAM 10/28/21 10/28/21 10/27/21 History tablet,extended release 24 hr Allergies Allergy/AdvReac Type Severity Reaction Status Date / Time lisinopril Allergy swelling Verified 10/28/21 07:56 Penicillins Allergy ALGY-Hives Verified 10/28/21 07:56 tramadol Allergy ALGY-Hives Verified 10/28/21 07:56 PFSH Acute PFSH: Medical History (Updated 10/28/21 @ 08:08 by Henry Frazier MD) Allergic dermatitis Anemia Anxiety and depression Atrial fibrillation/flutter Chest pain COPD (chronic obstructive pulmonary disease) Reports he is on 4 L of oxygen at home CRF (chronic renal failure) Dialysis patient Diastolic CHF Elevated troponin Encounter to establish care End stage chronic kidney disease ESRD (end stage renal disease) GERD (gastroesophageal reflux disease) Hypertension Hypertensive emergency Hypoxia Insomnia Lower respiratory tract infection Obstructive sleep apnea Paroxysmal atrial fibrillation with RVR Pleural effusion Resistant hypertension Sebaceous cyst Vitamin D deficiency Surgical History H/O circumcision H/O hand surgery right hand with hardware Presence of peritoneal dialysis catheter S/P dialysis catheter insertion (12/12/19) Removed on 04/04/2020 S/P hemodialysis catheter insertion Family History Other Adopted Denies family history of Anesthesia complication Bleeding disorder Social History Smoking and tobacco status: current every day smoker (1ppd X26 years) cigarettes [ Other cigarette details: On and off quitting and restarting] Alcohol intake: never Household members: significant other Marital status: Single Current occupational status: disabled History of recent travel: Yes Details: [place] Out of state: Yes Vitals/I&O/Wt Last Vital Signs Temp 98.4 F 10/28/21 06:04 Pulse 90 10/28/21 06:58 Resp 20 H 10/28/21 06:58 BP 227/98 08/01/22 06:58 Pulse Ox 93 10/28/21 06:58 O2 Del Method 10/28/21 06:58 O2 Flow Rate 4 10/28/21 06:58 Weight last 48 hrs Weight 95.254 kg Physical Exam Narrative: [place] a white male, in no apparent distress, alert and oriented. We had an extensive discussion, and he would not want to be intubated no matter what, even if this meant he would . He reports he would want all other measures. Blood pressure markedly elevated on admission HEENT: Pupils equally round. Oropharynx clear. Atraumatic and normocephalic Neck is supple no lymphadenopathy or thyromegaly Cardiovascular regular rate and rhythm without murmur, no S3 or S4, dialysis catheter is present left chest Lungs a faint bilateral expiratory wheeze. No crackles Abdomen is soft nontender positive bowel sounds. No obvious organomegaly exam is deferred Extremities no cyanosis clubbing or edema, cap refill brisk. Skin no rash Neuro no obvious focal deficits. Data : 10/28/21 06:22 10/28/21 06:22 Other Labs: LFTs are normal. Calcium and phosphorus are normal. Magnesium is normal. Chest x-ray by my read demonstrate some pulmonary edema, right pleural effusion. Dialysis catheter is noted. Sinus rhythm, borderline left axis deviation, flipped T waves laterally which is an old change. No significant acute changes. A&P Assessment and plan (1) Diastolic CHF: Presents with evidence of acute diastolic congestive heart failure, secondary to missed dialysis from noncompliance with appointments. He reports transportation is an issue. He missed dialysis Thursday, and felt too ill with shortness of breath to attend today so came to the emergency department. Secondary to missed dialysis blood pressure is markedly elevated consistent with hypertensive emergency, however this should correct quickly with him receiving his home medications and receiving hemodialysis. Nephrology consolidation for dialysis Continue home medications No need for echocardiogram. Tele Status: Acute Qualifiers: Heart failure chronicity: chronic Qualified Code(s): I50.32 - Chronic diastolic (congestive) heart failure (2) Hypertensive emergency: See above Status: Acute (3) Hyperkalemia: Sodium bicarb, and Kayexalate given in the emergency department. Calcium chloride given in the emergency department. Will be receiving acute dialysis. Status: Acute (4) End stage chronic kidney disease: Has end-stage renal disease, on hemodialysis. Has access with tunneled catheter left chest. Nephrology consultation Status: Acute (5) COPD (chronic obstructive pulmonary disease): DuoNeb every 6 hours, budesonide. No evidence of acute exacerbation currently. Continue his home oxygen. Currently in the ER he is requiring 3-1/2 L. Status: Acute Qualifiers: COPD type: unspecified COPD Qualified Code(s): J44.9 - Chronic obstructive pulmonary disease, unspecified Plan Multiple other medical problems as outlined by past medical history Reports he wants to be a limited code, all interventions okay with the exception of intubation. Heparin for DVT prophylaxis Attestations Medical Necessity Statement*: Will require less than 2 midnight stay for initiation of dialysis secondary to noncompliance Coding Level of Care Code Acute [facility] Sander for [facility] Fwd Diagnoses Diastolic CHF I50.32 Heart failure chronicity: chronic Hypertensive emergency I16.1 Hyperkalemia E87.5 End stage chronic kidney disease N18.6 COPD (chronic obstructive pulmonary disease) J44.9 COPD type: unspecified COPD
[2021-10-28] MEDS: calcium chloride 10% Syr 10 mL 2 GM IVP (08:06)
--- NOTE | 2021-10-28 08:13 | PC.NURSE ---
RN attempted to get patient in a gown and patient refused to put the gown on. Allergy band placed on patient.
--- NOTE | 2021-10-28 08:16 | PM.CONSULT ---
Providers/Reason For Consult Consulting Physician/Specialty*: deep goodwin md/ telenephrology Reason for Consult*: 46 yr old male ESRD, HTN, obesity, COPD, GIGI, a fib. pt has difficult time getting to dialysis. pt missed dialysis yesterday. he presents now w/ sob, hgtn, weakness, nausea. he has similiar presentation 2 weeks ago that improved w/ dialysis. Requesting Physician: Dr Stack, Dr Benavidez Primary Care Provider: Ricardo Stack MD History of Present Illness History of Present Illness Leopoldo Schaefer is a 46 year old male ESRD, htn, dm, copd, a fib. pt here w/ snyder, sob, weakness, edema after missing HD. pt has difficulty getting to dialysis center, which causes him to miss dialysis and frequent hospitalizations. Review of Systems Narrative: weak, swollen, sob, snyder, nausea, edema. rest negative Medications/Allergies Home Medications Medication Instructions Recorded Confirmed Last Taken Type vit B,C-folic ac 800 mcg-zinc 12.5 1 tab PO DAILY 06/09/19 10/28/21 10/27/21 History mg-selen-D3 2,000 unit-vit E tablet (RenaPlex-D) Home oxygen #1 ea 08/07/20 10/28/21 Unknown Rx sucroferric oxyhydroxide 500 mg See Rx Instructions .Route .COMPLEX 11/12/20 10/28/21 05/24/21 History chewable tablet (Velphoro) acetaminophen 500 mg tablet 1,000 mg PO Q4H PRN Pain 02/15/21 10/28/21 Unknown History ondansetron HCl 8 mg tablet 8 mg PO Q8H PRN Nausea And Vomiting 02/15/21 10/28/21 10/12/21 History hydroxyzine HCl 25 mg tablet 25 mg PO BID PRN itching 30 days 02/19/21 10/28/21 Unknown Rx #60 tabs aspirin 81 mg tablet,delayed 81 mg PO QAM 04/03/21 10/28/21 10/27/21 History release fluticasone propionate 50 1 - 2 spray intranasal DAILY PRN 05/25/21 10/28/21 Unknown History mcg/actuation nasal Allergy Symptoms spray,suspension carvedilol 25 mg tablet (Coreg) See Rx Instructions .Route 05/27/21 10/28/21 10/27/21 Rx .COMPLEX #180 tabs hydralazine 100 mg tablet 100 mg PO TID 06/13/21 10/28/21 10/27/21 History triamcinolone acetonide 0.025 % 1 applic topical TID PRN allergic 06/27/21 10/28/21 Unknown Rx topical ointment reaction 14 days #454 grams terbinafine HCl 250 mg tablet 250 mg PO DAILY 90 days #30 tabs 07/16/21 10/28/21 10/27/21 Rx albuterol sulfate 90 mcg/actuation 2 inh inhalation Q4H PRN shortness 08/20/21 10/28/21 10/28/21 Rx aerosol inhaler (Ventolin HFA) of breath or wheezing #8.5 grams budesonide-formoterol HFA 160 2 puff inhalation BID 30 days 08/20/21 10/28/21 10/28/21 04:30 Rx mcg-4.5 mcg/actuation aerosol #10.2 grams inhaler (Symbicort) ipratropium 0.5 mg-albuterol 3 mg 3 ml inhalation Q8H PRN shortness 08/20/21 10/28/21 Unknown Rx (2.5 mg base)/3 mL nebulization of breath or wheezing #90 mL soln pantoprazole 40 mg tablet,delayed 40 mg PO BID #180 tabs 09/09/21 10/28/21 10/27/21 Rx release atorvastatin 40 mg tablet 40 mg PO QAM #90 tabs 09/13/21 10/28/21 10/27/21 Rx citalopram 20 mg tablet 20 mg PO QAM 10/14/21 10/28/21 10/27/21 History clonidine HCl 0.3 mg tablet 0.15 mg PO BID 10/14/21 10/28/21 10/27/21 History diltiazem HCl 240 mg 240 mg PO QAM 10/14/21 10/28/21 10/27/21 History capsule,extended release 24 hr trazodone 150 mg tablet 150 mg PO BEDTIME PRN Sleep 10/14/21 10/28/21 Unknown History doxycycline monohydrate 100 mg 100 mg PO BID #13 tabs 10/15/21 10/28/21 Unknown Rx tablet isosorbide mononitrate 120 mg 120 mg PO QAM 10/28/21 10/28/21 10/27/21 History tablet,extended release 24 hr Allergies Allergy/AdvReac Type Severity Reaction Status Date / Time lisinopril Allergy swelling Verified 10/28/21 07:56 Penicillins Allergy ALGY-Hives Verified 10/28/21 07:56 tramadol Allergy ALGY-Hives Verified 10/28/21 07:56 PFSH Acute PFSH: Medical History (Updated 10/28/21 @ 08:08 by Henry Frazier MD) Allergic dermatitis Anemia Anxiety and depression Atrial fibrillation/flutter Chest pain COPD (chronic obstructive pulmonary disease) Reports he is on 4 L of oxygen at home CRF (chronic renal failure) Dialysis patient Diastolic CHF Elevated troponin Encounter to establish care End stage chronic kidney disease ESRD (end stage renal disease) GERD (gastroesophageal reflux disease) Hypertension Hypertensive emergency Hypoxia Insomnia Lower respiratory tract infection Obstructive sleep apnea Paroxysmal atrial fibrillation with RVR Pleural effusion Resistant hypertension Sebaceous cyst Vitamin D deficiency Surgical History H/O circumcision H/O hand surgery right hand with hardware Presence of peritoneal dialysis catheter S/P dialysis catheter insertion (12/12/19) Removed on 04/04/2020 S/P hemodialysis catheter insertion Family History Other Adopted Denies family history of Anesthesia complication Bleeding disorder Social History Smoking and tobacco status: current every day smoker (1ppd X26 years) cigarettes [ Other cigarette details: On and off quitting and restarting] Alcohol intake: never Household members: significant other Marital status: Single Current occupational status: disabled History of recent travel: Yes Details: [place] Out of state: Yes Vitals/I&O/Wt Last Vital Signs Temp 98.4 F 10/28/21 06:04 Pulse 96 10/28/21 08:08 Resp 14 10/28/21 08:08 BP 235/109 10/28/21 08:08 Pulse Ox 93 10/28/21 08:08 O2 Del Method 10/28/21 08:08 O2 Flow Rate 4 10/28/21 08:08 Weight last 48 hrs Weight 95.254 kg Physical Exam Narrative: obese, swollen, sob in bed vs noted- bp elevated heent- nc/at, eomi, anicteric neck supple lungs crackles b/l heart irreg abd softr, nt, nd, + bs ext b/l edema access left permacath neuro- a,a, o x 3 Data : 10/28/21 06:22 08 06:22 A&P Assessment and plan (1) End stage renal disease: 46 yr old man 1. ESRD- hyperkalemia, sob, htn- hd today and tomorrow 2. hyperkalemia- was treated medically. monitor w/ HD 3. htn- monitor w/ dialysis 4. monitor hgb 5. monitor phos seen and examinedw/ RN- telehealth visit informed consent for telehealth and HD obtained from pt time spent 40+ min Status: Acute Plan see above Consult Attestations Medical Necessity Statement: esrd, htn urgency, hyperkalemia, acute on chronic diastolic dysfunction Time Spent in Patient Care: Greater than 35 minutes (>than 50% of time spent in counselling and/or direct pt care on unit). Coding Level of Care Code Acute Developmental Behavioral Physician for Shilpa Phillips Diagnoses End stage renal disease N18.6
--- NOTE | 2021-10-28 08:18 | PC.PHAR ---
[employer]NER NANNETTE VERIFIED THE PTS MEDICATIONS-NOTES ARE MADE IN THE PHARMACY COMMENTS ON THE COREG,CLONIDINE, AND VELPHORO-[facility] [employer] PARTNER NANNETTE STATES THE PT NEVER STARTED THE DOXYCYCLINE 100MG BID WRITTEN ON 10/15/21 FROM STATES THEY DIDNT HAVE A RIDE TO THE PHARMACY-STATES THEY WOULD LIKE TO DO THE MEDS TO BEDS WHEN PT IS DISCHARGED
--- NOTE | 2021-10-28 08:26 | DCPLANNER ---
ER physician asked case management associate to speak with patient about missing his dialysis appointments due to not having any transportation. Patient has medicaid, that will transport patient back and forth to his appointments. benefits manager spoke with patient about his transportation issues. benefits manager asked patient if he was aware of medicaid transportation that would take him to his appointment and take him home. Patient stated that he knew all about medicaid transportation and that he had the number to call but that it would not have helped him last week. benefits manager expressed the importance of patient attending all of his appointments throughout the week. Patient stated that he was aware of that. benefits manager updated Dr. Hansen that case management associate offered the phone number to medicaid to patient to arrange his rides, but that patient already knew the phone number and was aware of medicaid transportation.
[2021-10-28] MEDS: labetalol 5 mg/mL SDV 20mL 10 MG IVP (08:33)
--- NOTE | 2021-10-28 09:30 | PC.NURSE ---
Patient report was called from the ER and patient was taken straight to Dialysis from there.
[2021-10-28 12:16] LABS: Hepatitis B Surface AB 3.5 (11.5-1000); Hepatitis B Surface Antigen Non-Reactive (Nonreactive); Hepatitis C Virus Antibody Non-Reactive (Nonreactive)
[2021-10-28] MEDS: hyDRALAzine 50 mg Tablet 100 MG PO ×2 (14:54→21:19)
[2021-10-28] MEDS: pantoprazole DR 40 mg Tablet PO ×2 (14:55→21:19)
[2021-10-28] MEDS: ipratropium-albuterol 3 mL Neb INHALATION ×2 (15:42→20:13)
--- NOTE | 2021-10-28 18:49 | PC.NURSE ---
pt refused tele and gown at this time education given
[2021-10-28] MEDS: cloNIDine 0.1 mg Tablet 0.15 MG PO (19:35)
[2021-10-28 20:13] LABS: Uric Acid 8.5 mg/dL (3.4-7.0)
[2021-10-28] MEDS: budesonide 0.5 mg/2 mL Neb INHALATION (20:13)
[2021-10-28] MEDS: carvedilol 25 mg Tablet 50 MG PO (21:19)
[2021-10-28] MEDS: NON-FORMULARY MEDICATION (Vit B,C-Fa-Zinc-Selen-Vit D3-E [Renaplex-D] 800 mcg-12.5 mg -2,0 1 EACH PO (21:20)
[2021-10-28] MEDS: trazodone 150 mg Tablet PO (21:20)
[2021-10-29] VITALS (7 sets, daily range): BP systolic 133–176; BP diastolic 70–84; PULSE 0–84; RESP 16–20; TEMP 36.8–36.9; O2SAT 93–96
[2021-10-29 02:18] LABS: Basophils % 0.4 %; Eosinophils # 0.2 10^3/uL (0.0-0.8); Eosinophils % 1.6 %; Hematocrit 27.6 % (42.0-52.0); Hemoglobin 9.4 g/dL (11.7-16.6); Lymphocytes # 0.8 10^3/uL (0.8-4.8); Lymphocytes % 8.9 %; Mean Corpuscular HGB Conc 34.1 g/dL (30.0-36.0); Mean Corpuscular Hemoglobin 32.3 pg (28.0-34.0); Mean Corpuscular Volume 94.8 fl (80-94); Mean Platelet Volume 9.5 fL (7.4-10.4); Monocytes % 10.3 %; Neutrophils # 7.31 10^3/uL (1.8-7.7); Neutrophils % 78.6 %; Nucleated Red Blood Cells % 0 %; Platelet Count 242 10^3/cmm (130-400); Red Blood Count 2.91 10^6/uL (4.1-5.3); Red Cell Distribution Width 13.4 % (12.1-15.1); White Blood Count 9.3 10^3/uL (4.0-10.0)
[2021-10-29 02:36] LABS: Calcium 8.7 mg/dL (8.5-10.5)
[2021-10-29 02:40] LABS: Alanine Aminotransferase 8 U/L (0-41); Albumin Level 3.3 g/dL (3.5-5.2); Alkaline Phosphatase 67 IU/L (40-130); Anion Gap 17.7 (5-19); Aspartate Amino Transferase 8 U/L (0-40); Blood Urea Nitrogen 45 mg/dL (6-20); Calcium 8.9 mg/dL (8.5-10.5); Carbon Dioxide 28 mmol/L (22-29); Chloride 96 mmol/L (98-107); Globulin 3.1 g/dL (1.3-4.6); Glomerular Filtration Rate 6.6 mL/min (90-130); Glucose 121 mg/dL (65-115); Iron 28 ug/dL (59-158); Osmolality Calculated 297 mOsm/kg (285-295); Percent Saturation 18.6 % (20-50); Phosphorus 3.5 mg/dL (2.5-4.5); Potassium 4.7 mmol/L (3.5-5.1); Sodium 137 mmol/L (136-145); Total Bilirubin 0.3 mg/dL (0.15-1.2); Total Iron Binding Capacity 150 mcg/dl; Total Protein 6.4 g/dL (6.6-8.7); Unsaturated Iron Binding 122 ug/dL (112-347)
[2021-10-29 02:44] LABS: Parathyroid Hormone 177.9 pg/mL (15-65)
[2021-10-29 02:53] LABS: Ferritin 1380 ng/mL (30-400)
[2021-10-29] MEDS: heparin 5,000 unit/mL INJ 1 mL 5000 UNIT SUBCUT (03:41)
[2021-10-29] MEDS: fluticasone nasal spray 16gm Btl NASAL (03:41)
[2021-10-29] MEDS: atorvastatin 40 mg Tablet PO (05:14)
[2021-10-29] MEDS: dilTIAZem ER (24HR) 240 mg Capsule PO (05:14)
[2021-10-29] MEDS: aspirin 81 mg EC Tablet PO (05:14)
[2021-10-29] MEDS: citalopram 20 mg Tablet PO (05:14)
[2021-10-29] MEDS: isosorbide mononitrate ER 60 mg Tablet 120 MG PO (05:15)
--- NOTE | 2021-10-29 08:01 | P.PN_ITS ---
Subjective Subjective: less sob. depressed. seen on dialysis. more awake. has some edema Medications: Reviewed: Yes Medication Review Details: Current Medications Acetaminophen (Acetaminophen 325 Mg Tablet) 650 mg PO Q6H PRN PRN Reason: Mild/Mod Pain Or Temp >/= 101 Albuterol/Ipratropium (Ipratropium-Albuterol 3 Ml Neb) 3 ml INHALATION Q6H.RESP [facility] Last Admin: 10/29/21 03:02 Dose: Not Given Aspirin (Aspirin 81 Mg Ec Tablet) 81 mg PO QAM [facility] Last Admin: 10/29/21 05:14 Dose: 81 mg Atorvastatin Calcium (At[facility]vastatin 40 Mg Tablet) [facility] [place] Last Admin: 10/29/21 05:14 Dose: 40 mg Budesonide (Budesonide 0.5 Mg/2 Ml Neb) 0.5 mg INHALATION BID.RESPIRATORY [facility] Last Admin: 10/28/21 20:13 Dose: 0.5 mg Carvedilol (Carvedilol 25 Mg Tablet) 50 mg PO BID@0900,2100 [facility] Last Admin: 10/28/21 21:19 Dose: 50 mg Citalopram Hydrobromide (Citalopram 20 Mg Tablet) 20 mg PO [facility] Last Admin: 10/29/21 05:14 Dose: 20 mg Clonidine HCl (Clonidine 0.1 Mg Tablet) 0.15 mg PO BID [facility] Last Admin: 10/28/21 19:35 Dose: 0.15 mg Diltiazem HCl (Diltiazem Er (24hr) 240 Mg Capsule) 240 [facility] [place] Last Admin: 10/29/21 05:14 Dose: 240 mg Fluticasone Propionate (Fluticasone Nasal Winnie 16gm Btl) 0 spray NASAL DAILY PRN PRN Reason: ALLERGIES Last Admin: 10/29/21 03:41 Dose: 2 spray Heparin Sodium (Porcine) (Heparin 5,000 Unit/Ml Inj 1 Ml) 5,000 unit SUBCUT Q12H [facility] Last Admin: 10/29/21 03:41 Dose: 5,000 unit Hydralazine HCl (Hydralazine 50 Mg Tablet) 100 mg PO TID [facility] Last Admin: 10/28/21 21:19 Dose: 100 mg Isosorbide Mononitrate (Isosorbide Mononitrate Er 60 Mg Tablet) 120 mg PO QAM [facility] Last Admin: 10/29/21 05:15 Dose: 120 mg Non-Formulary Medication (Sucroferric Oxyhydroxide [Velphoro]) 0 mg PO DIRECTED [facility] Non-Formulary Medication (Vit B,W-Ch-Hqhd-Selen-Vit D3-E [Renaplex-D]) 1 tab PO DAILY [facility] Last Admin: 10/28/21 21:20 Dose: 1 tab Ondansetron HCl (Ondansetron 2 Mg/Ml Sdv 2 Ml) 4 mg IVP Q8H PRN PRN Reason: vomiting, or N/V if npo Pantoprazole Sodium (Pantoprazole Dr 40 Mg Tablet) 40 mg PO BID [facility] Last Admin: 10/28/21 21:19 Dose: 40 mg Trazodone HCl (Trazodone 150 Mg Tablet) 150 mg PO BEDTIME PRN PRN Reason: Sleep Last Admin: 10/28/21 21:20 Dose: 150 mg Vitals/I&O/Wt Last Vital Signs Temp 98.3 F 10/29/21 04:00 Pulse 84 10/29/21 04:00 Resp 18 10/29/21 04:00 BP 167/84 10/29/21 04:00 Pulse Ox 96 10/29/21 04:00 O2 Del Method 10/28/21 20:13 O2 Flow Rate 2 10/28/21 20:13 10/28/21 10/29/21 10/29/21 22:59 06:59 14:59 Intake Total 240 / 240 1800 / 2040 Output Total 0 / 0 Balance 240 / 240 1800 / 2040 Weight last 48 hrs Weight 92.76 kg Weight 95.254 kg Physical Exam Narrative: obese, more comfortable, on dialysis vs noted- bp elevated heent- nc/at, eomi, anicteric neck supple lungs - dull bases, dec crackles b/l heart irreg abd softr, nt, nd, + bs ext b/l edema access left permacath neuro- a,a, o x 3 Data : 10/29/21 01:56 10/29/21 01:56 A&P Assessment and plan (1) End stage renal disease: 46 yr old man 1. ESRD- potassium improved w/ dialysis yesterday -repeat HD now - 4 hrs, 3.5 l 2. htn- monitor w/ dialysis and home meds 3. monitor hgb -high ferritin- RAYMUNDO as an outpt we discussed importance of going to dialysis and not missing it. seen and examined w/ RN- telehealth visit informed consent for telehealth and HD obtained from pt time spent 25 min Status: Acute Plan see above Attestations Medical Necessity Statement*: per medicine- if stable post hd can d/c home Time Spent in Patient Care: 16 - 35 minutes (>than 50% of time spent in counselling and/or direct pt care on unit) . Coding Level of Care Code Acute Athletic Agent for Shilpa Phillips Diagnoses End stage renal disease N18.6
--- NOTE | 2021-10-29 08:16 | PC.NURSE ---
0800 Patient in dialysis.
--- NOTE | 2021-10-29 09:23 | P.DS_ITS ---
Discharge Providers Date of Admission: 10/28/21 08:15 Date of Discharge: October 29, 2021 Attending Provider at Admission: Henry Frazier MD Attending Provider at Discharge: Henry Frazier MD Primary Care Provider: Riacrdo Stack MD Diagnoses at Discharge Discharge Diagnosis (1) End stage renal disease: Status: Acute Reason for Visit Reason for Visit: SOB Hospital Course Hospital Course Leopoldo is a 46-year-old white male who presented to the hospital with some shortness of breath. He reports that this is likely he has he skipped dialysis on Thursday last week and had not had it since then. He reported he had issues with transportation. He denied any significant cough, fever, or other issues. During his hospital stay nephrology was consulted acutely for his hyperkalemia for which she received emergent treatment in the ER. He was then given dialysis on day of admission, and the following day on October 29. Hyperkalemia had resolved, he was less short of breath, and was on oxygen less than his baseline. It was thought he was stable at this time and could go home. Discharge planning was consulted to make sure he had transportation to dialysis. He was encouraged to keep his dialysis appointments, and never miss. He is to see his silver steward and primary care provider this week, and to receive dialysis again tomorrow. Patient was agreeable to discharge, and was given the opportunity to ask questions. Physical Exam Narrative: General exam no distress Neck is supple Cardiovascular regular in rhythm without murmur Lungs clear no wheezing or crackles Abdomen is soft with positive bowel sounds Extremities trace edema bilaterally Skin without rash Discharge Data Studies Completed and Pending Completed Studies During Hospitalization Category Date Time Status XR chest 1V portable [id number] Urgent Exams 10/28/21 06:26 Completed Pending at discharge Category Date Time Status Comprehensive Metabolic Panel AM LABS Lab 10/30/21 04:00 Ordered Comprehensive Metabolic Panel AM LABS Lab 10/31/21 04:00 Ordered Magnesium AM LABS Lab 10/30/21 04:00 Ordered Magnesium AM LABS Lab 10/31/21 04:00 Ordered Phosphorus AM LABS Lab 10/30/21 04:00 Ordered Phosphorus AM LABS Lab 10/31/21 04:00 Ordered Radiology Impressions Chest X-Ray 10/28/21 06:26 IMPRESSION: 1. Stable cardiomegaly. 2. Right-sided pleural effusion. 3. Consolidation in the right lower lung may be consistent with pulmonary edema versus pneumonia. Laboratory Results WBC 9.3 10^3/uL (4.0-10.0) 10/29/21 01:56 RBC 2.91 10^6/uL (4.1-5.3) L 10/29/21 01:56 Hgb 9.4 g/dL (11.7-16.6) L 10/29/21 01:56 Hct 27.6 % (42.0-52.0) L 10/29/21 01:56 MCV 94.8 fl (80-94) H D 10/29/21 01:56 MCH 32.3 pg (28.0-34.0) 10/29/21 01:56 MCHC 34.1 g/dL (30.0-36.0) D 10/29/21 01:56 RDW 13.4 % (12.1-15.1) 10/29/21 01:56 Plt Count 242 10^3/cmm (130-400) 10/29/21 01:56 MPV 9.5 fL (7.4-10.4) 10/29/21 01:56 Neut % (Auto) 78.6 % 10/29/21 01:56 Lymph % (Auto) 8.9 % 10/29/21 01:56 [place] % (Auto) 10.3 % 10/29/21 01:56 Eos % (Auto) 1.6 % 10/29/21 01:56 Baso % (Auto) 0.4 % 10/29/21 01:56 Neut # (Auto) 7.31 10^3/uL (1.8-7.7) 10/29/21 01:56 Lymph # (Auto) 0.8 10^3/uL (0.8-4.8) 10/29/21 01:56 [place] # (Auto) 1.0 10^3/uL (0.2-0.9) H 10/29/21 01:56 Eos # (Auto) 0.2 10^3/uL (0.0-0.8) 10/29/21 01:56 Baso # (Auto) 0.0 10^3/uL (0.0-0.1) 10/29/21 01:56 Nucleated RBC % (auto) 0 % 10/29/21 01:56 Nucleated RBCs # 0.0 /100WBC 10/29/21 01:56 Sodium 137 mmol/L (136-145) 10/29/21 01:56 Potassium 4.7 mmol/L (3.5-5.1) 10/29/21 01:56 Chloride 96 mmol/L (98-107) L 10/29/21 01:56 Carbon Dioxide 28 mmol/L (22-29) 10/29/21 01:56 Anion Gap 17.7 (5-19) 10/29/21 01:56 BUN 45 mg/dL (6-20) H 10/29/21 01:56 Creatinine 8.7 mg/dL (0.7-1.2) H* 10/29/21 01:56 GFR Calculation 6.6 mL/min (90-130) L 10/29/21 01:56 Glucose 121 mg/dL (65-115) H 10/29/21 01:56 Calculated Osmolality 297 mOsm/kg (285-295) H 10/29/21 01:56 Lactate 0.6 mmol/L (0.5-2.2) 10/28/21 06:22 Uric Acid 8.5 mg/dL (3.4-7.0) H 10/28/21 06:22 Calcium 8.9 mg/dL (8.5-10.5) 10/29/21 01:56 Phosphorus 3.5 mg/dL (2.5-4.5) 10/29/21 01:56 Magnesium 2.0 mg/dL (1.7-2.3) 10/29/21 01:56 Iron 28 ug/dL (59-158) L 10/29/21 01:56 TIBC 150 mcg/dl 10/29/21 01:56 % Saturation 18.6 % (20-50) L 10/29/21 01:56 Unsat Iron Binding 122 ug/dL (112-347) 10/29/21 01:56 Ferritin 1380 ng/mL (30-400) H 10/29/21 01:56 Total Bilirubin 0.3 mg/dL (0.15-1.2) 10/29/21 01:56 AST 8 U/L (0-40) 10/29/21 01:56 ALT 8 U/L (0-41) 10/29/21 01:56 Alkaline Phosphatase 67 IU/L (40-130) 10/29/21 01:56 C-Reactive Protein 90.1 mg/L (0.0-4.9) H 10/28/21 06:22 Total Protein 6.4 g/dL (6.6-8.7) L 10/29/21 01:56 Albumin 3.3 g/dL (3.5-5.2) L 10/29/21 01:56 Globulin 3.1 g/dL (1.3-4.6) 10/29/21 01:56 PTH Intact 177.9 pg/mL (15-65) H 10/29/21 01:56 Calcium (PTH Intact) 8.7 mg/dL (8.5-10.5) 10/29/21 01:56 Hep Bs Antigen Non-reactive (Nonreactive) 10/28/21 06:22 Hep Bs Antibody 3.5 (11.5-1000) L 10/28/21 06:22 Hepatitis C Antibody Non-reactive (Nonreactive) 10/28/21 06:22 Vitals Last Vital Signs Temp 98.3 F 10/29/21 04:00 Pulse 84 10/29/21 04:00 Resp 18 10/29/21 04:00 BP 167/84 10/29/21 04:00 Pulse Ox 96 10/29/21 04:00 O2 Del Method 10/28/21 20:13 O2 Flow Rate 2 10/28/21 20:13 Discharge Plan Discharge Patient Disposition: Home Condition: Stable Prescriptions: Continued Velphoro 500 mg tablet,chewable See Rx Instructions .ROUTE .COMPLEX Rx Instructions: 3 tabs po with meals and 2-3 tabs po with snacks hydroxyzine HCl 25 mg tablet 25 mg PO BID PRN (Reason: itching) 30 Days Qty: 60 0RF terbinafine HCl 250 mg tablet 250 mg PO DAILY 90 Days Qty: 30 2RF RenaPlex-D 800 mcg-12.5 mg -2,000 unit tablet 1 tab PO DAILY (DME) Home oxygen See Rx Instructions .Route .MEDSUPPLY Qty: 1 0RF Rx Instructions: As directed albuterol sulfate [Ventolin HFA] 90 mcg/actuation HFA aerosol inhaler 2 inh inhalation Q4H PRN (Reason: shortness of breath or wheezing) Qty: 8.5 2RF budesonide-formoterol [Symbicort] 160-4.5 mcg/actuation HFA aerosol inhaler 2 puff inhalation BID 30 Days Qty: 10.2 2RF ipratropium-albuterol 0.5 mg-3 mg(2.5 mg base)/3 mL solution for nebulization 3 ml inhalation Q8H PRN (Reason: shortness of breath or wheezing) Qty: 90 2RF triamcinolone acetonide 0.025 % ointment 1 applic topical TID PRN (Reason: allergic reaction) 14 Days Qty: 454 1RF pantoprazole 40 mg tablet,delayed release (DR/EC) 40 mg PO BID Qty: 180 1RF atorvastatin 40 mg tablet 40 mg PO QAM Qty: 90 1RF fluticasone propionate 50 mcg/actuation spray,suspension 1 - 2 spray INTRANASAL DAILY PRN (Reason: Allergy Symptoms) carvedilol [Coreg] 25 mg tablet See Rx Instructions .ROUTE .COMPLEX Qty: 180 1RF Rx Instructions: 50 mg orally twice a day except on dialysis days (mon,wed,fri) takes 50mg at noon and bedtime hydralazine 100 mg tablet 100 mg PO TID ondansetron HCl 8 mg tablet 8 mg PO Q8H PRN (Reason: Nausea And Vomiting) acetaminophen 500 mg Tablet 1,000 mg PO Q4H PRN (Reason: Pain) aspirin 81 mg tablet,delayed release (DR/EC) 81 mg PO QAM diltiazem HCl 240 mg capsule,extended release 24hr 240 mg PO QAM citalopram 20 mg tablet 20 mg PO QAM trazodone 150 mg tablet 150 mg PO BEDTIME PRN (Reason: Sleep) clonidine HCl 0.3 mg tablet 0.15 mg PO BID isosorbide mononitrate 120 mg tablet extended release 24 hr 120 mg PO QAM Discontinued doxycycline monohydrate 100 mg Tablet 100 mg PO BID Qty: 13 0RF Rx Instructions: PT DIDNT START MEDICATION Discharge Orders: Discharge Order (Routine); Ordered 10/29/21 Ordered By: Henry Frazier Referrals: Nish Stack MD [Hospitalist] - 4-7 days Ricardo Stack MD [Primary Care Provider] - Discharge Diet: Usual diet Discharge Activity: Increase activity as tolerated Patient Instructions: Opioid Safety Activity Restrictions/Additional Instructions: Renal dialysis diet. Return for any concerns Make sure you do not miss any dialysis Follow-up with your primary in 3 to 5 days Follow-up with nephrology this week. Keep your dialysis appointment tomorrow. Discharge Attestations Time Spent in Discharge Care*: greater than 30 min Status at Discharge: Cognitive status at discharge: cognitively intact , Behavioral status at discharge: cooperative , Quality Metrics Clinical Quality Measures [ No reported AMI, CVA or VTE this stay] Coding Level of Care Code Acute g TAINA note Diagnoses End stage renal disease N18.6
--- NOTE | 2021-10-29 09:36 | PC.CHAP ---
Pastoral Care Encounter/Spiritual Assessment Type of Contact [] Declined mold sheet cleaner visit [] Patient/Family/Request visit [] Outpatient visit [] Follow-up visit [] Physician referral [] Code/Alert [x] Routine visit [] Staff referral [] Actively dying [x] Patient sleeping [] Family support [] [] Out of room [] Palliative care [] [] Receiving care in room [] Pre-surgical visit [] Trauma [] Long length of stay [] ICU visit [] Other: Relational/Emotional Strength [] Patient feels connected with others/family/visitors/staff [] Distress [] Loneliness/isolation [] Abandonment Spirituality of Patient [] Person of Manjula [] Attends Buddhist of their Manjula [] Believes in Prayer [] Reads Bible or Adventist materials [] There are Spiritual issues to be addressed Credit Review Officer Interventions [] Prayer [] Active listening [] Non-anxious presence [] Spiritual/emotional support [] Crisis/trauma care [] Spiritual counseling [] Bereavement support [] Provided bereavement packet [] Provided Bible/devotional materials [] Provided toy/stuffed animal, coloring book to patient or family member [] Provided Communion [] Anointing/Ashley [] Salvation [] Completed spiritual assessment [] Other: Impact on Illness or Injury [] Angry [] Fearful [] Anxious [] Often cries [] Exhaustion [] Unable to work [] Unable to attend buddhism [] Unable to walk/stand [] Unable to read [] Unable to drive [] Unable to eat/drink [] Unable to sleep [] Unable to be with family [] Patient intubated [] Other: Summary Time spent with patient
[2021-10-29] MEDS: carvedilol 25 mg Tablet 50 MG PO (11:44)
[2021-10-29] MEDS: cloNIDine 0.1 mg Tablet 0.15 MG PO (11:45)
[2021-10-29] MEDS: pantoprazole DR 40 mg Tablet PO (11:46)
[2021-10-29] MEDS: hyDRALAzine 50 mg Tablet 100 MG PO ×2 (11:46→14:54)
[2021-10-29] MEDS: NON-FORMULARY MEDICATION (Vit B,C-Fa-Zinc-Selen-Vit D3-E [Renaplex-D] 800 mcg-12.5 mg -2,0 1 EACH PO (11:46)
--- NOTE | 2021-10-29 16:03 | PC.NURSE ---
Patient's home meds returned to patient. Discharge instructions and follow up appointments reviewed with patient. Patient is awaiting ride at this time.
== END 2021-10-29 16:59 | disposition home or self-care (01) ==
LOC: ER 08:47 → MEDSURG 09:01
PROVIDERS: Emergency Medicine; Internal Medicine Nephrology; Admitting Provider Internal Medicine; Emergency Provider Family Medicine; PCP Radiology Diagnostic Radiology; Visit Provider Internal Medicine
DX: N18.6 End stage renal disease (principal); E11.22 Type 2 diabetes mellitus with diabetic chronic kidney disease; I13.2 Hypertensive heart and chronic kidney disease with heart failure and with stage 5 chronic kidney disease, or end stage renal disease; Z99.2 Dependence on renal dialysis; Z91.15 Patient's noncompliance with renal dialysis; I50.32 Chronic diastolic (congestive) heart failure; J44.9 Chronic obstructive pulmonary disease, unspecified; E66.9 Obesity, unspecified; Z68.29 Body mass index [BMI] 29.0-29.9, adult; G47.33 Obstructive sleep apnea (adult) (pediatric); I48.91 Unspecified atrial fibrillation; F17.210 Nicotine dependence, cigarettes, uncomplicated
CPT/HCPCS: 36415; 71045; 80053; 82310; 82728; 83540; 83550; 83605; 83735; 83970; 84100; 84550; 85025; 86140; 86706; 86803; 87340; 93005; 94640; 96372; 96374; 96375; 99285; G0378; J0360; J1644; J3490; J7626

== ENCOUNTER 2021-11-25 00:02 | Inpatient (IN) | payer MEDICARE, MEDICAID, SELFPAY ==
[2021-11-25] VITALS (182 sets, daily range): BP systolic 106–253; BP diastolic 55–120; PULSE 63–87; RESP 10–34; TEMP 36.5–37.6; O2SAT 77–99; BMI 28.7; BMI 29.0
--- NOTE | 2021-11-25 00:11 | ECG_ITS ---
[facility] Test Date: 2021-11-25 Pat Name: Leopoldo Schaefer Department: Room: Gender: Male Drug Clerk: : 1975 Requested By: Nish Stack Order Number: [id number] Roderick MD: Willard Vigil M.D. Measurements Intervals [place] Rate: 80 P: 59 DE: 181 QRS: -20 QRSD: 106 T: 95 QT: 393 QTc: 455 Interpretive Statements SINUS RHYTHM LEFT VENTRICULAR HYPERTROPHY AND ST-T CHANGE [VOLTAGE CRITERIA PLUS ST/T ABNORMALITY] Compared to ECG 10/28/2021 06:11:50 Left ventricular hypertrophy now present ST (T wave) deviation now present First degree AV block no longer present T-wave abnormality no longer present Possible ischemia no longer present Electronically Signed On 11-25-2021 7:26:40 CDT by Willard Vigil M.D. [email or web address]
--- NOTE | 2021-11-25 00:28 | XRR_ITS ---
PROCEDURE INFORMATION: Exam: XR Chest Exam date and time: 11/25/2021 12:48 AM Age: 46 years old Clinical indication: Shortness of breath; Additional info: SOB TECHNIQUE: Imaging protocol: Radiologic exam of the chest. Views: 1 view. COMPARISON: CR (CHEST, ) 10/28/2021 6:38 AM FINDINGS: Tubes, catheters and devices: The left IJ central venous catheter is stable in position. Lungs: Mild pulmonary edema is appreciated. Pleural spaces: A small right pleural effusion is noted. No pneumothorax. Heart/Mediastinum: Unremarkable. No cardiomegaly. Bones/joints: No acute fracture. XR/XR chest 1V portable [id number] IMPRESSION: Mild pulmonary edema and small right pleural effusion.
[2021-11-25 00:48] LABS: Basophils # 0.1 10^3/uL (0.0-0.1); Basophils % 0.6 %; Eosinophils # 0.3 10^3/uL (0.0-0.8); Hematocrit 31.2 % (42.0-52.0); Hemoglobin 9.6 g/dL (11.7-16.6); Lymphocytes # 0.7 10^3/uL (0.8-4.8); Lymphocytes % 5.5 %; Mean Corpuscular HGB Conc 30.8 g/dL (30.0-36.0); Mean Corpuscular Hemoglobin 31.7 pg (28.0-34.0); Mean Platelet Volume 9.1 fL (7.4-10.4); Monocytes # 1.1 10^3/uL (0.2-0.9); Monocytes % 8.8 %; Neutrophils # 10.42 10^3/uL (1.8-7.7); Neutrophils % 82.7 %; Nucleated Red Blood Cells % 0 %; Platelet Count 319 10^3/cmm (130-400); Red Blood Count 3.03 10^6/uL (4.1-5.3); Red Cell Distribution Width 13.2 % (12.1-15.1); White Blood Count 12.6 10^3/uL (4.0-10.0)
[2021-11-25] MEDS: nitroglycerin 1 gm/inch oint Pkt 2 INCH TOPICAL (00:50)
[2021-11-25] MEDS: amlodipine 10 mg Tablet PO (00:51)
[2021-11-25] MEDS: labetalol 5 mg/mL SDV 20mL 20 MG IVP (00:51)
[2021-11-25 00:54] LABS: Lactic Sepsis W/Reflex 0.8 mmol/L (0.5-2.2)
[2021-11-25 01:03] LABS: C Reactive Protein 39.4 mg/L (0.0-4.9); Phosphorus 6.6 mg/dL (2.5-4.5)
--- NOTE | 2021-11-25 01:17 | W.ED.SOB ---
HPI - SOB/Dyspnea General: Chief Complaint: Shortness of Breath/Dyspnea Stated Complaint: SOB Time Seen by Provider: 11/25/21 00:05 History of Present Illness: HPI Narrative: 46-year-old male with a history of hypertension and end-stage renal disease on dialysis. He presents short of breath. He notes he has been getting short of breath since Thursday. He has been coughing, with clear sputum. He states that he has had some chills. No overt fever. He says he is always cold though. He was supposed to go to dialysis on Thursday, but did not make it. His last dialysis was Thursday. No known sick contacts. No vomiting or diarrhea. He has been using his oxygen at home without much relief. He was given a breathing treatment on the way here with some improvement. MD elicited complaint: shortness of breath and cough Onset (ago): day(s) Timing: constant and progressively worsening Severity: moderate Exacerbating factors: lying flat and exertion Relieving factors: nothing Known history of: COPD, congestive heart failure and other Associated symptoms: Reports chest congestion, cough, nausea and orthopnea; Deny abdominal pain, chest pain, diaphoresis, fever(s) or vomiting Treatment prior to arrival: oxygen and bronchodilator Review of Systems Const: Denies: fever(s) or diaphoresis Eyes: Denies: change in vision Card: Reports: orthopnea; Denies: chest pain Resp: Reports: dyspnea, productive cough, wheezing and chest congestion GI: Reports: nausea; Denies: abdominal pain or vomiting Neuro: Denies: headache(s) [facility] ED PFSH: Medical History Allergic dermatitis Anemia Anxiety and depression Atrial fibrillation/flutter Chest pain COPD (chronic obstructive pulmonary disease) Reports he is on 4 L of oxygen at home CRF (chronic renal failure) Dialysis patient Diastolic CHF Elevated troponin Encounter to establish care End stage chronic kidney disease ESRD (end stage renal disease) GERD (gastroesophageal reflux disease) Hypertension Hypertensive emergency Hypoxia Insomnia Lower respiratory tract infection Obstructive sleep apnea Paroxysmal atrial fibrillation with RVR Pleural effusion Resistant hypertension Sebaceous cyst Vitamin D deficiency Surgical History H/O circumcision H/O hand surgery right hand with hardware Presence of peritoneal dialysis catheter S/P dialysis catheter insertion (12/12/19) Removed on 04/04/2020 S/P hemodialysis catheter insertion Family History Other Adopted Denies family history of Anesthesia complication Bleeding disorder Social History Smoking and tobacco status: current every day smoker (1ppd X26 years) cigarettes [ Other cigarette details: On and off quitting and restarting] Alcohol intake: never Household members: significant other Marital status: Single Current occupational status: disabled History of recent travel: Yes Details: [place] Out of state: Yes Physical Exam Const: GENERAL APPEARANCE: cooperative and ill appearing; not frail appearing HENMT: COMMON NORMALS: normocephalic, atraumatic and Normal external nose present HEAD & SCALP: normocephalic and atraumatic FACE & SINUS: normal facial exam and face symmetric NOSE: Normal external nose present Eye: COMMON NORMALS: Equal, round and reactive pupils present and EOMs intact bilaterally PUPIL: Yes Equal, round and reactive pupils present Neck/C-Spine: GENERAL: Yes trachea midline Chest: CHEST: Yes Symmetrical chest wall rise Resp: EFFORT & INSPECTION: Yes tachypneic, Yes respiratory distress (Mild) and Yes uses accessory muscles AUSCULTATION: rales and rhonchi Cardio: COMMON NORMALS: regular rate and regular rhythm RATE: regular rate RHYTHM: regular rhythm GI: COMMON NORMALS: Normal to inspection, nondistended, normoactive bowel sounds present Extremity: COMMON NORMALS: no pedal edema Neuro: MAXIM COMA SCALE: document GCS findings Maxim coma scale eye opening: Spontaneous [place] coma scale verbal response: Orientated Maxim coma scale motor response: Obey commands [place] coma scale total score: 15 SENSORY EXAM: Yes extremities (intact) Psych: COMMON NORMALS: speech normal SPEECH: Yes normal speech Skin: COMMON NORMALS: no rashes or lesions noted GENERAL SKIN EXAM: no rashes or lesions noted Course Vital Signs: Vital signs: Vital Signs Temperature 99.7 F H 11/25/21 00:08 Pulse Rate 87 11/25/21 00:08 Respiratory Rate 22 H 11/25/21 00:08 Blood Pressure 253/116 11/25/21 00:08 Pulse Oximetry 93 11/25/21 00:08 Oxygen Delivery Me thod 11/25/21 00:08 Oxygen Flow Rate 6 11/25/21 00:08 MDM - SOB/Dyspnea Medical Decision Making 46-year-old gentleman with end-stage renal disease, COPD, hypertension. He presents with essentially flash pulmonary edema. He is on 4 L at home, and was very short of breath despite this. After albuterol treatment in route, as well as increasing his oxygen to 6 L, he is much improved. White blood cell count is 12.6. Hemoglobin is 9.6. His creatinine is 14. His BUN is 61. However his electrolytes appear to be stable. His pressures have been significantly elevated, in the 230s systolic. He did not respond significantly to 20 mg of labetalol, amlodipine, and 2 inches of Nitropaste. Because of this, esmolol drip was hung. Left to go to the ICU. He will need dialysis later this morning. Lab Data : 11/25/21 00:15 11/25/21 00:15 Labs/Radiology: Radiology Impressions Chest X-Ray 11/25/21 00:28 IMPRESSION: Mild pulmonary edema and small right pleural effusion. Laboratory Results WBC 12.6 10^3/uL (4.0-10.0) H 11/25/21 00:15 RBC 3.03 10^6/uL (4.1-5.3) L 11/25/21 00:15 Hgb 9.6 g/dL (11.7-16.6) L 11/25/21 00:15 Hct 31.2 % (42.0-52.0) L 11/25/21 00:15 MCV 103.0 fl (80-94) H 11/25/21 00:15 MCH 31.7 pg (28.0-34.0) 11/25/21 00:15 MCHC 30.8 g/dL (30.0-36.0) 11/25/21 00:15 RDW 13.2 % (12.1-15.1) 11/25/21 00:15 Plt Count 319 10^3/cmm (130-400) 11/25/21 00:15 MPV 9.1 fL (7.4-10.4) 11/25/21 00:15 Neut % (Auto) 82.7 % 11/25/21 00:15 Lymph % (Auto) 5.5 % 11/25/21 00:15 [place] % (Auto) 8.8 % 11/25/21 00:15 Eos % (Auto) 2.0 % 11/25/21 00:15 Baso % (Auto) 0.6 % 11/25/21 00:15 Neut # (Auto) 10.42 10^3/uL (1.8-7.7) H 11/25/21 00:15 Lymph # (Auto) 0.7 10^3/uL (0.8-4.8) L 11/25/21 00:15 [place] # (Auto) 1.1 10^3/uL (0.2-0.9) H 11/25/21 00:15 Eos # (Auto) 0.3 10^3/uL (0.0-0.8) 11/25/21 00:15 Baso # (Auto) 0.1 10^3/uL (0.0-0.1) 11/25/21 00:15 Nucleated RBC % (auto) 0 % 11/25/21 00:15 Nucleated RBCs # 0.0 /100WBC 11/25/21 00:15 Sodium 142 mmol/L (136-145) 11/25/21 00:15 Potassium 4.6 mmol/L (3.5-5.1) 11/25/21 00:15 Chloride 101 mmol/L (98-107) 11/25/21 00:15 Carbon Dioxide 23 mmol/L (22-29) 11/25/21 00:15 Anion Gap 22.6 (5-19) H 11/25/21 00:15 BUN 61 mg/dL (6-20) H 11/25/21 00:15 Creatinine 14.1 mg/dL (0.7-1.2) H* 11/25/21 00:15 GFR Calculation 3.8 mL/min (90-130) L 11/25/21 00:15 Glucose 106 mg/dL (65-115) 11/25/21 00:15 Calculated Osmolality 312 mOsm/kg (285-295) H 11/25/21 00:15 Lactic Acid 0.8 mmol/L (0.5-2.2) 11/25/21 00:15 Calcium 8.9 mg/dL (8.5-10.5) 11/25/21 00:15 Phosphorus 6.6 mg/dL (2.5-4.5) H 11/25/21 00:15 Magnesium 2.0 mg/dL (1.7-2.3) 11/25/21 00:15 Total Bilirubin 0.3 mg/dL (0.15-1.2) 11/25/21 00:15 AST 12 U/L (0-40) 11/25/21 00:15 ALT 9 U/L (0-41) 11/25/21 00:15 Alkaline Phosphatase 82 U/L (40-130) 11/25/21 00:15 C-Reactive Protein 39.4 mg/L (0.0-4.9) H 11/25/21 00:15 NT-Pro-B Natriuret Pep > 24223 pg/mL (0-125) H 11/25/21 00:15 Total Protein 6.8 g/dL (6.6-8.7) 11/25/21 00:15 Albumin 3.4 g/dL (3.5-5.2) L 11/25/21 00:15 Globulin 3.4 g/dL (1.3-4.6) 11/25/21 00:15 Critical Care Time Critical Care Time: Critical Care Time: Yes Total Critical Care Time: 35 Attestation: This case had a high probability of a clinically significant, sudden, or life threatening deterioration of this patient's condition which required my full and direct attention, intervention and personal management. Discharge Plan Discharge Patient Disposition: Admitted As Inpatient Clinical Impression: Pulmonary edema, End stage kidney disease, Hypertensive emergency Condition: Fair Coding Level of Care Code ED Customer Specialist for [place] Fwd Exam Comprehensive
[2021-11-25 01:28] LABS: NT Pro B Type Natriuretic Pept > 70000 pg/mL (0-125)
[2021-11-25 01:39] LABS: Alanine Aminotransferase 9 U/L (0-41); Albumin Level 3.4 g/dL (3.5-5.2); Alkaline Phosphatase 82 U/L (40-130); Aspartate Amino Transferase 12 U/L (0-40); Blood Urea Nitrogen 61 mg/dL (6-20); Calcium 8.9 mg/dL (8.5-10.5); Carbon Dioxide 23 mmol/L (22-29); Chloride 101 mmol/L (98-107); Globulin 3.4 g/dL (1.3-4.6); Glomerular Filtration Rate 3.8 mL/min (90-130); Glucose 106 mg/dL (65-115); Osmolality Calculated 312 mOsm/kg (285-295); Sodium 142 mmol/L (136-145); Total Bilirubin 0.3 mg/dL (0.15-1.2); Total Protein 6.8 g/dL (6.6-8.7)
[2021-11-25 01:44] LABS: Anion Gap 22.6 (5-19); Potassium 4.6 mmol/L (3.5-5.1)
[2021-11-25] MEDS: esmolol drip 2,500 MG/250 ML PREMIX 27.22 MG IV (02:25)
--- NOTE | 2021-11-25 02:47 | P.HP_ITS ---
Providers/Chief Complaint Primary Care Provider: Ricardo Stack MD Chief Complaint: SOB History of Present Illness Leopoldo Schaefer is a 46 year old male with a past medical history of end-stage renal disease on dialysis, history of systolic diastolic CHF, history of COPD, current smoker, history of CAD, hypertension, history of multiple hospitalizations for missed dialysis, fluid overload, pulm edema. Who presents to [facility] as on Thursday he missed dialysis, developed increasing shortness of breath, he also reports wheezing, also reports chest tightness and chest pressure, reports increased shortness of breath, no fevers, no chills, does have a cough, no sick contacts, recent travel, denies any calf pain, calf swelling, no lower extremity edema edema, Review of Systems Card: Reports: chest pain Resp: Reports: dyspnea and non-productive cough GI: Denies: abdominal pain Medications/Allergies Home Medications Medication Instructions Recorded Confirmed Last Taken Type vit B,C-folic ac 800 mcg-zinc 12.5 1 tab PO DAILY 06/09/19 10/28/21 10/27/21 History mg-selen-D3 2,000 unit-vit E tablet (RenaPlex-D) Home oxygen #1 ea 08/07/20 10/28/21 Unknown Rx sucroferric oxyhydroxide 500 mg See Rx Instructions .Route .COMPLEX 11/12/20 10/28/21 05/24/21 History chewable tablet (Velphoro) acetaminophen 500 mg tablet 1,000 mg PO Q4H PRN Pain 02/15/21 10/28/21 Unknown History ondansetron HCl 8 mg tablet 8 mg PO Q8H PRN Nausea And Vomiting 02/15/21 10/28/21 10/12/21 History hydroxyzine HCl 25 mg tablet 25 mg PO BID PRN itching 30 days 02/19/21 10/28/21 Unknown Rx #60 tabs aspirin 81 mg tablet,delayed 81 mg PO QAM 04/03/21 10/28/21 10/27/21 History release fluticasone propionate 50 1 - 2 spray intranasal DAILY PRN 05/25/21 10/28/21 Unknown History mcg/actuation nasal Allergy Symptoms spray,suspension carvedilol 25 mg tablet (Coreg) See Rx Instructions .Route 05/27/21 10/28/21 10/27/21 Rx .COMPLEX #180 tabs triamcinolone acetonide 0.025 % 1 applic topical TID PRN allergic 06/27/21 10/28/21 Unknown Rx topical ointment reaction 14 days #454 grams terbinafine HCl 250 mg tablet 250 mg PO DAILY 90 days #30 tabs 07/16/21 10/28/21 10/27/21 Rx budesonide-formoterol HFA 160 2 puff inhalation BID 30 days 08/20/21 10/28/21 10/28/21 04:30 Rx mcg-4.5 mcg/actuation aerosol #10.2 grams inhaler (Symbicort) ipratropium 0.5 mg-albuterol 3 mg 3 ml inhalation Q8H PRN shortness 08/20/21 10/28/21 Unknown Rx (2.5 mg base)/3 mL nebulization of breath or wheezing #90 mL soln pantoprazole 40 mg tablet,delayed 40 mg PO BID #180 tabs 09/09/21 10/28/21 10/27/21 Rx release atorvastatin 40 mg tablet 40 mg PO QAM #90 tabs 09/13/21 10/28/21 10/27/21 Rx citalopram 20 mg tablet 20 mg PO QAM 10/14/21 10/28/21 10/27/21 History clonidine HCl 0.3 mg tablet 0.15 mg PO BID 10/14/21 10/28/21 10/27/21 History diltiazem HCl 240 mg 240 mg PO QAM 10/14/21 10/28/21 10/27/21 History capsule,extended release 24 hr trazodone 150 mg tablet 150 mg PO BEDTIME PRN Sleep 10/14/21 10/28/21 Unknown History isosorbide mononitrate 120 mg 120 mg PO QAM 10/28/21 10/28/21 10/27/21 History tablet,extended release 24 hr albuterol sulfate 90 mcg/actuation See Rx Instructions .Route 11/13/21 Unknown Rx aerosol inhaler .COMPLEX #8.5 ea hydralazine 100 mg tablet 100 mg PO TID #90 tabs 11/13/21 Unknown Rx Allergies Allergy/AdvReac Type Severity Reaction Status Date / Time lisinopril Allergy swelling Verified 10/28/21 07:56 Penicillins Allergy ALGY-Hives Verified 10/28/21 07:56 tramadol Allergy ALGY-Hives Verified 10/28/21 07:56 PFSH Acute PFSH: Medical History Allergic dermatitis Anemia Anxiety and depression Atrial fibrillation/flutter Chest pain COPD (chronic obstructive pulmonary disease) Reports he is on 4 L of oxygen at home CRF (chronic renal failure) Dialysis patient Diastolic CHF Elevated troponin Encounter to establish care End stage chronic kidney disease ESRD (end stage renal disease) GERD (gastroesophageal reflux disease) Hypertension Hypertensive emergency Hypoxia Insomnia Lower respiratory tract infection Obstructive sleep apnea Paroxysmal atrial fibrillation with RVR Pleural effusion Resistant hypertension Sebaceous cyst Vitamin D deficiency Surgical History H/O circumcision H/O hand surgery right hand with hardware Presence of peritoneal dialysis catheter S/P dialysis catheter insertion (12/12/19) Removed on 04/04/2020 S/P hemodialysis catheter insertion Family History Other Adopted Denies family history of Anesthesia complication Bleeding disorder Social History Smoking and tobacco status: current every day smoker (1ppd X26 years) cigarettes [ Other cigarette details: On and off quitting and restarting] Alcohol intake: never Household members: significant other Marital status: Single Current occupational status: disabled History of recent travel: Yes Details: [place] Out of state: Yes Vitals/I&O/Wt Last Vital Signs Temp 99.7 F H 11/25/21 00:08 Pulse 87 11/25/21 00:08 Resp 22 H 11/25/21 00:08 BP 253/116 11/25/21 00:08 Pulse Ox 93 11/25/21 00:08 O2 Del Method 11/25/21 00:08 O2 Flow Rate 6 11/25/21 00:08 Weight last 48 hrs Weight 90.718 kg Physical Exam Const: COMMON NORMALS: no acute distress and patient oriented x3 HENMT: COMMON NORMALS: normocephalic HEAD & SCALP: normocephalic Eye: COMMON NORMALS: Equal, round and reactive pupils present and EOMs intact bilaterally Neck/C-Spine: COMMON NORMALS: no JVD Chest: OTHER: Left chest dialysis catheter in place Resp: COMMON NORMALS: normal respiratory effort, No retractions and No use of accessory muscles AUSCULTATION: crackles Cardio: COMMON NORMALS: no JVD, regular rate, regular rhythm, S1 normal heart sound present and S2 normal heart sound present RATE: regular rate RHYTHM: regular rhythm HEART SOUNDS: S1 normal heart sound present and S2 normal heart sound present GI: COMMON NORMALS: Normal to inspection, nondistended, normoactive bowel sounds present, Soft to palpation, non-tender, No hepatosplenomegaly present, no masses and no bruits PALPATION: Yes Soft to palpation and Yes No hepatosplenomegaly present Extremity: COMMON NORMALS: capillary refill normal, no clubbing, cyanosis or edema, no calf tenderness and no pedal edema Neuro: COMMON NORMALS: patient oriented x3, CN's II-XII intact bilaterally, mo ves all extremities and no focal motor deficits Psych: COMMON NORMALS: mental status grossly normal Data : 11/25/21 00:15 11/25/21 00:15 Micro: Microbiology 11/25/21 01:21 Blood Culture - Preliminary Blood SPECIMEN COLLECTED A&P Assessment and plan (1) Non-compliance with renal dialysis: Status: Acute (2) Pulmonary edema: Status: Acute (3) End stage kidney disease: Status: Acute (4) Hypertensive emergency: Status: Acute (5) COPD (chronic obstructive pulmonary disease): Status: Acute (6) Diastolic CHF: Status: Acute Qualifiers: Heart failure chronicity: chronic Qualified Code(s): I50.32 - Chronic diastolic (congestive) heart failure (7) Acute hypoxemic respiratory failure: Status: Acute (8) Chest pain: Status: Acute Plan Hypertensive emergency -We will start on esmolol drip -Stop insulin systolic less than 160, diastolic less than 90 -Continue home blood pressure medications -Requires ICU admission -Heparin for DVT prophylaxis -DNR/DNI Chest pressure -Likely secondary to hypertensive emergency -Serial EKGs, surgical echo telemetry monitoring -Continue aspirin, statin, beta-elsy -Telemetry monitoring Acute hypoxic respiratory failure -Likely secondary to pulm edema, does have wheezing, potentially COPD exacerbation -Will consult nephrology in a.m. for dialysis, no urgent need for dialysis at this point -Does not urinate -Solu-Medrol, DuoNeb, budesonide Hypertension, continue home medications End-stage renal disease, missed dialysis, Attestations Medical Necessity Statement*: Patient requires position, inpatient, greater than 2 midnights, for acute hypoxic respiratory failure, pulmonary edema, hypertensive emergency, chest pain Coding Level of Care Code Acute Postal Service Clerk for Chg Fwd Diagnoses Non-compliance with renal dialysis Z91.15 Pulmonary edema J81.1 End stage kidney disease N18.6 Hypertensive emergency I16.1 COPD (chronic obstructive pulmonary disease) J44.9 Diastolic CHF I50.32 Heart failure chronicity: chronic Acute hypoxemic respiratory failure J96.01 Chest pain R07.9
[2021-11-25 03:17] LABS: Procalcitonin 1.13 ng/mL (0-0.5)
[2021-11-25 04:00] LABS: Troponin(5th) Baseline 80 ng/L (0-15)
--- NOTE | 2021-11-25 06:10 | PC.NURSE ---
Transfer Note Patient transferred to ICU from ER via stretcher. Handoff received from SHAWNA Fuentes. Patient oriented to environment and equipment. Covering service notified. Orders reviewed and will continue to monitor. Patient alert/oriented x4 on 6LNC at time of transfer. Patient belongings include shirt, shorts, socks, shoes, home medications, phone, phone music cataloguer & wallet all placed at bedside.
[2021-11-25 06:19] LABS: Troponin 5 2HR 85.23 ng/L (0-15)
[2021-11-25 06:20] LABS: Troponin 5 2HR Delta 5.23 ABS# (0-10)
[2021-11-25] MEDS: heparin 5,000 unit/mL INJ 1 mL 5000 UNIT SUBCUT ×2 (06:34→17:01)
[2021-11-25 06:35] LABS: Thyroid Stimulating Hormone 1.53 uIU/mL (0.27-4.20)
[2021-11-25] MEDS: pantoprazole 40 mg SDV IVP (06:37)
[2021-11-25] MEDS: dilTIAZem ER (24HR) 240 mg Capsule PO (06:40)
[2021-11-25] MEDS: atorvastatin 40 mg Tablet PO (06:40)
[2021-11-25] MEDS: isosorbide mononitrate ER 60 mg Tablet 120 MG PO (06:40)
[2021-11-25] MEDS: aspirin 81 mg EC Tablet PO (06:40)
[2021-11-25] MEDS: citalopram 20 mg Tablet PO (06:41)
--- NOTE | 2021-11-25 06:50 | PM.CONSULT ---
Providers/Reason For Consult Consulting Physician/Specialty*: deep goodwin md/ telenephrology Reason for Consult*: ESRD care Requesting Physician: Dr Kanchan Stack Attending Physician: Nish Stack MD Primary Care Provider: Ricardo Stack MD History of Present Illness History of Present Illness Leopoldo Schaefer is a 46 year old male with a past medical history of end-stage renal disease on dialysis MWF, history of systolic diastolic CHF, history of COPD, current smoker, history of CAD, hypertension, a fib. Pt has difficulkty getting to HD center. He has a history of multiple hospitalizations for missed dialysis, fluid overload, pulm edema.? The pt presented to [facility] w/ increasing shortness of breath, chest tightness and chest pressure. He was admitted to ICU and renal called to consult for ESRD care and for help w/ hypertensive emergency- on esmolol drip.. Review of Systems Narrative: SOB, weak, headache, wheezing, edema, nausea. Medications/Allergies Home Medications Medication Instructions Recorded Confirmed Last Taken Type vit B,C-folic ac 800 mcg-zinc 12.5 1 tab PO DAILY 06/09/19 10/28/21 10/27/21 History mg-selen-D3 2,000 unit-vit E tablet (RenaPlex-D) Home oxygen #1 ea 08/07/20 10/28/21 Unknown Rx sucroferric oxyhydroxide 500 mg See Rx Instructions .Route .COMPLEX 11/12/20 10/28/21 05/24/21 History chewable tablet (Velphoro) acetaminophen 500 mg tablet 1,000 mg PO Q4H PRN Pain 02/15/21 10/28/21 Unknown History ondansetron HCl 8 mg tablet 8 mg PO Q8H PRN Nausea And Vomiting 02/15/21 10/28/21 10/12/21 History hydroxyzine HCl 25 mg tablet 25 mg PO BID PRN itching 30 days 02/19/21 10/28/21 Unknown Rx #60 tabs aspirin 81 mg tablet,delayed 81 mg PO QAM 04/03/21 10/28/21 10/27/21 History release fluticasone propionate 50 1 - 2 spray intranasal DAILY PRN 05/25/21 10/28/21 Unknown History mcg/actuation nasal Allergy Symptoms spray,suspension carvedilol 25 mg tablet (Coreg) See Rx Instructions .Route 05/27/21 10/28/21 10/27/21 Rx .COMPLEX #180 tabs triamcinolone acetonide 0.025 % 1 applic topical TID PRN allergic 06/27/21 10/28/21 Unknown Rx topical ointment reaction 14 days #454 grams terbinafine HCl 250 mg tablet 250 mg PO DAILY 90 days #30 tabs 07/16/21 10/28/21 10/27/21 Rx budesonide-formoterol HFA 160 2 puff inhalation BID 30 days 08/20/21 10/28/21 10/28/21 04:30 Rx mcg-4.5 mcg/actuation aerosol #10.2 grams inhaler (Symbicort) ipratropium 0.5 mg-albuterol 3 mg 3 ml inhalation Q8H PRN shortness 08/20/21 10/28/21 Unknown Rx (2.5 mg base)/3 mL nebulization of breath or wheezing #90 mL soln pantoprazole 40 mg tablet,delayed 40 mg PO BID #180 tabs 09/09/21 10/28/21 10/27/21 Rx release atorvastatin 40 mg tablet 40 mg PO QAM #90 tabs 09/13/21 10/28/21 10/27/21 Rx citalopram 20 mg tablet 20 mg PO QAM 10/14/21 10/28/21 10/27/21 History clonidine HCl 0.3 mg tablet 0.15 mg PO BID 10/14/21 10/28/21 10/27/21 History diltiazem HCl 240 mg 240 mg PO QAM 10/14/21 10/28/21 10/27/21 History capsule,extended release 24 hr trazodone 150 mg tablet 150 mg PO BEDTIME PRN Sleep 10/14/21 10/28/21 Unknown History isosorbide mononitrate 120 mg 120 mg PO QAM 10/28/21 10/28/21 10/27/21 History tablet,extended release 24 hr albuterol sulfate 90 mcg/actuation See Rx Instructions .Route 11/13/21 Unknown Rx aerosol inhaler .COMPLEX #8.5 ea hydralazine 100 mg tablet 100 mg PO TID #90 tabs 11/13/21 Unknown Rx Allergies Allergy/AdvReac Type Severity Reaction Status Date / Time lisinopril Allergy swelling Verified 10/28/21 07:56 Penicillins Allergy ALGY-Hives Verified 10/28/21 07:56 tramadol Allergy ALGY-Hives Verified 10/28/21 07:56 Current Medications Generic Name Dose Route Start Last Admin Trade Name Freq PRN Reason Stop Dose Admin Aspirin 81 mg 11/25/21 06:00 11/25/21 06:40 Aspirin 81 Mg Ec Tablet PO 81 mg QAM FRANCISCO Administration Atorvastatin Calcium 40 mg 11/25/21 06:00 11/25/21 06:40 Atorvastatin 40 Mg Tablet PO 40 mg QAM FRANCISCO Administration Citalopram Hydrobromide 20 mg 11/25/21 06:00 11/25/21 06:41 Citalopram 20 Mg Tablet PO 20 mg QAM FRANCISCO Administration Diltiazem HCl 240 mg 11/25/21 06:00 11/25/21 06:40 Diltiazem Er (24hr) 240 Mg Capsule PO 240 mg QAM FRANCISCO Administration Heparin Sodium (Porcine) 5,000 unit 11/25/21 05:49 11/25/21 06:34 Heparin 5,000 Unit/Ml Inj 1 Ml SUBCUT 5,000 unit Q12H FRANCISCO Administration Esmolol HCl 2,500 mg in 250 mls @ 0 mls/hr 11/25/21 02:15 11/25/21 05:32 Brevibloc Drip IV 125 mcg/kg/min .Q0M FRANCISCO 68.04 mls/hr Titration Protocol Per Protocol Isosorbide Mononitrate 120 mg 11/25/21 06:00 11/25/21 06:40 Isosorbide Mononitrate Er 60 Mg Tablet PO 120 mg QAM FRANCISCO Administration Pantoprazole Sodium 40 mg 11/25/21 05:49 11/25/21 06:37 Pantoprazole 40 Mg Sdv IVP 40 mg Q24H FRANCISCO Administration PFSH Acute PFSH: Medical History Allergic dermatitis Anemia Anxiety and depression Atrial fibrillation/flutter Chest pain COPD (chronic obstructive pulmonary disease) Reports he is on 4 L of oxygen at home CRF (chronic renal failure) Dialysis patient Diastolic CHF Elevated troponin Encounter to establish care End stage chronic kidney disease ESRD (end stage renal disease) GERD (gastroesophageal reflux disease) Hypertension Hypertensive emergency Hypoxia Insomnia Lower respiratory tract infection Obstructive sleep apnea Paroxysmal atrial fibrillation with RVR Pleural effusion Resistant hypertension Sebaceous cyst Vitamin D deficiency Surgical History H/O circumcision H/O hand surgery right hand with hardware Presence of peritoneal dialysis catheter S/P dialysis catheter insertion (12/12/19) Removed on 04/04/2020 S/P hemodialysis catheter insertion Family History Other Adopted Denies family history of Anesthesia complication Bleeding disorder Social History Smoking and tobacco status: current every day smoker (1ppd X26 years) cigarettes [ Other cigarette details: On and off quitting and restarting] Alcohol intake: never Household members: significant other Marital status: Single Current occupational status: disabled History of recent travel: Yes Details: [place] Out of state: Yes Vitals/I&O/Wt Last Vital Signs Temp 98.5 F 11/25/21 06:10 Pulse 80 11/25/21 06:10 Resp 16 11/25/21 06:10 BP 207/117 11/25/21 04:58 Pulse Ox 89 L 11/25/21 06:10 O2 Del Method 11/25/21 06:10 O2 Flow Rate 6 11/25/21 06:10 11/24/21 11/24/21 11/25/21 14:59 22:59 06:59 Intake Total 102.748 / 102.748 Balance 102.748 / 102.748 Weight last 48 hrs Weight 90.718 kg Physical Exam Narrative: SOB uncomfortable in bed vs noted- bp elevated heent- nc/st, eomi, anicteric neck supple lungs crackles, wheezing and dull bases b/l heart reg, +KEVIN abd soft, nt, nd, + bs ext + edema access- left Ant chest wall permacath neuro a,a, o x 3 Data : 11/25/21 00:15 11/25/21 00:15 Micro: Microbiology 11/25/21 01:21 Blood Culture - Preliminary Blood SPECIMEN COLLECTED A&P Assessment and plan (1) End stage kidney disease: [address] [address] Consult Note Signed Patient: Leopoldo Schaefer MR#: [id number] : 1975 Age/Sex: 46 / M ADM Date: 10/28/21 Loc: ER? Room/Bed: Encounter Date: 10/28/[address]:? Report Number: [id number] Providers/Reason For Consult Consulting Physician/Specialty*:?? deep goodwin md/ telenephrology Reason for Consult*:?? 46 yr old male ESRD, HTN, obesity, COPD, GIGI, a fib.? pt has difficult time getting to dialysis.? pt missed dialysis yesterday.? he presents now w/ sob, hgtn, weakness, nausea.? he has similiar presentation 2 weeks ago that improved w/ dialysis. Requesting Physician:?? Dr Stack, Dr Benavidez Primary Care Provider:?? Ricardo Stack MD ? History of Present Illness History of Present Illness Leopoldo Schaefer is a 46 year old male ESRD, htn, dm, copd, a fib.? pt here w/ snyder, sob, weakness, edema after missing HD. ? pt has difficulty getting to dialysis center, which causes him to miss dialysis and frequent hospitalizations. Review of Systems Narrative:?? weak, swollen, sob, snyder, nausea, edema.? rest negative Medications/Allergies Home Medications ?Medication ?Instructions ?Recorded ?Confirmed ?Last Taken ?Type vit B,C-folic ac 800 mcg-zinc 12.5 1 tab PO DAILY 06/09/19 10/28/21 10/27/21 History mg-selen-D3 2,000 unit-vit E ? tablet (RenaPlex-D) ? Home oxygen #1 ea 08/07/20 10/28/21 Unknown Rx sucroferric oxyhydroxide 500 mg See Rx Instructions .Route .COMPLEX 11/12/20 10/28/21 05/24/21 History chewable tablet (Velphoro) ? acetaminophen 500 mg tablet 1,000 mg PO Q4H PRN Pain 02/15/21 10/28/21 Unknown History ondansetron HCl 8 mg tablet 8 mg PO Q8H PRN Nausea And Vomiting 02/15/21 10/28/21 10/12/21 History hydroxyzine HCl 25 mg tablet 25 mg PO BID PRN itching 30 days 02/19/21 10/28/21 Unknown Rx ? #60 tabs ? aspirin 81 mg tablet,delayed 81 mg PO QAM 04/03/21 10/28/21 10/27/21 History release ? fluticasone propionate 50 1 - 2 spray intranasal DAILY PRN 05/25/21 10/28/21 Unknown History mcg/actuation nasal Allergy Symptoms ? spray,suspension ? carvedilol 25 mg tablet (Coreg) See Rx Instructions .Route 05/27/21 10/28/21 10/27/21 Rx ? .COMPLEX #180 tabs ? hydralazine 100 mg tablet 100 mg PO TID 06/13/21 10/28/21 10/27/21 History triamcinolone acetonide 0.025 % 1 applic topical TID PRN allergic 06/27/21 10/28/21 Unknown Rx topical ointment reaction 14 days #454 grams ? terbinafine HCl 250 mg tablet 250 mg PO DAILY 90 days #30 tabs 07/16/21 10/28/21 10/27/21 Rx albuterol sulfate 90 mcg/actuation 2 inh inhalation Q4H PRN shortness 08/20/21 10/28/21 10/28/21 Rx aerosol inhaler (Ventolin HFA) of breath or wheezing #8.5 grams ? budesonide-formoterol HFA 160 2 puff inhalation BID 30 days 08/20/21 10/28/21 10/28/21 04:30 Rx mcg-4.5 mcg/actuation aerosol #10.2 grams ? inhaler (Symbicort) ? ipratropium 0.5 mg-albuterol 3 mg 3 ml inhalation Q8H PRN shortness 08/20/21 10/28/21 Unknown Rx (2.5 mg base)/3 mL nebulization of breath or wheezing #90 mL ? soln ? pantoprazole 40 mg tablet,delayed 40 mg PO BID #180 tabs 09/09/21 10/28/21 10/27/21 Rx release ? atorvastatin 40 mg tablet 40 mg PO QAM #90 tabs 09/13/21 10/28/21 10/27/21 Rx citalopram 20 mg tablet 20 mg PO QAM 10/14/21 10/28/21 10/27/21 History clonidine HCl 0.3 mg tablet 0.15 mg PO BID 10/14/21 10/28/21 10/27/21 History diltiazem HCl 240 mg 240 mg PO QAM 10/14/21 10/28/21 10/27/21 History capsule,extended release 24 hr ? trazodone 150 mg tablet 150 mg PO BEDTIME PRN Sleep 10/14/21 10/28/21 Unknown History doxycycline monohydrate 100 mg 100 mg PO BID #13 tabs 10/15/21 10/28/21 Unknown Rx tablet ? isosorbide mononitrate 120 mg 120 mg PO QAM 10/28/21 10/28/21 10/27/21 History tablet,extended release 24 hr ? Allergies Allergy/AdvReac Type Severity Reaction Status Date / Time lisinopril Allergy ? swelling Verified 10/28/21 07:56 Penicillins Allergy ? ALGY-Hives Verified 10/28/21 07:56 tramadol Allergy ? ALGY-Hives Verified 10/28/21 07:56 PFSH Acute PFSH:?? Medical History?(Updated 10/28/21 @ 08:08 by Henry Frazier MD) Allergic dermatitis Anemia Anxiety and depression Atrial fibrillation/flutter Chest pain COPD (chronic obstructive pulmonary disease) Reports he is on 4 L of oxygen at homeCRF (chronic renal failure) Dialysis patient Diastolic CHF Elevated troponin Encounter to establish care End stage chronic kidney disease ESRD (end stage renal disease) GERD (gastroesophageal reflux disease) Hypertension Hypertensive emergency Hypoxia Insomnia Lower respiratory tract infection Obstructive sleep apnea Paroxysmal atrial fibrillation with RVR Pleural effusion Resistant hypertension Sebaceous cyst Vitamin D deficiency ? Surgical History? H/O circumcision H/O hand surgery right hand with hardwarePresence of peritoneal dialysis catheter S/P dialysis catheter insertion (12/12/19) Removed on 1S/P hemodialysis catheter insertion ??Family History? Other Adopted Denies family history of Anesthesia complicationBleeding disorder ? Social History? Smoking and tobacco status:? current every day smoker (1ppd X26 years) cigarettes [ Other cigarette details: On and off quitting and restarting] Alcohol intake:? never Household members:? significant other Marital status:? Single Current occupational status:? disabled History of recent travel:? Yes Details: [place] Out of state: Yes ? Vitals/I&O/Wt Last Vital Signs Temp ?98.4 F ?10/28/21 06:04 Pulse ?96 ?10/28/21 08:08 Resp ?14 ?10/28/21 08:08 BP ?235/109 ?10/28/21 08:08 Pulse Ox ?93 ?10/28/21 08:08 O2 Del Method ? ?10/28/21 08:08 O2 Flow Rate ?4 ?10/28/21 08:08 Weight last 48 hrs Weight? 95.254 kg ? Physical Exam Narrative:?? obese, swollen, sob in bed vs noted- bp elevated heent- nc/at, eomi, anicteric neck supple lungs crackles b/l heart irreg abd softr, nt, nd, + bs ext b/l edema access left permacath neuro- a,a, o x 3 Data : 10/28/21 06:22? 10/28/21 06:22? A&P Assessment and plan (1) End stage renal disease: 46 yr old man 1. ESRD- sob, htn-? hd today and tomorrow 2. anemia- high ferritin. start RAYMUNDO when BP improves 3. htn- monitor w/ dialysis and outpt meds. attempt to wean off of esmolol 4. +trop, cp- monitor w/ fluid removal and improvement in BP 5. monitor phos- sytart a binder seen and examined w/ RN- telehealth visit informed consent for telehealth and HD obtained from pt time spent 50 + min Status: Acute Plan emergency HD now. Consult Attestations Medical Necessity Statement: esrd, volume overload, sob, cp Time Spent in Patient Care: Greater than 35 minutes (>than 50% of time spent in counselling and/or direct pt care on unit). Coding Level of Care Code Acute Procurement Manager for Shilpa Phillips Diagnoses End stage kidney disease N18.6
[2021-11-25] MEDS: esmolol drip 2,500 MG/250 ML PREMIX 81.65 MG IV (07:42)
[2021-11-25] MEDS: ipratropium-albuterol 3 mL Neb INHALATION ×2 (08:07→15:38)
[2021-11-25] MEDS: budesonide 0.5 mg/2 mL Neb INHALATION (08:07)
--- NOTE | 2021-11-25 08:13 | PC.NURSE ---
Shift Note Frequent safety and comfort rounds continue. Orders and/or nursing care completed as indicated. Patient monitored for response to intervention and treatment(s). Education provided includes medication. Patient verbalized understanding of teaching. Patient remains on 6LNC, alert/oriented x4. Esmolol gtt infusing per protocol, please see MAR for infusion rates. Will continue to monitor.
[2021-11-25] MEDS: cloNIDine 0.1 mg Tablet 0.15 MG PO ×2 (08:26→17:01)
[2021-11-25] MEDS: hyDRALAzine 50 mg Tablet 100 MG PO ×3 (08:27→20:07)
[2021-11-25] MEDS: NON-FORMULARY MEDICATION (Vit B,C-Fa-Zinc-Selen-Vit D3-E [Renaplex-D] 800 mcg-12.5 mg -2,0 1 EACH PO (08:27)
--- NOTE | 2021-11-25 08:38 | ECG_ITS ---
[facility] Test Date: 2021-11-25 Pat Name: Leopoldo Schaefer Department: Room: ICU10 Gender: Male [address] Streetcar: : 1975 Requested By: Nish Stack Order Number: [id number] Roderick MD: Willard Vigil M.D. Measurements Intervals [place] Rate: 77 P: 4 ND: 161 QRS: -9 QRSD: 108 T: 108 QT: 431 QTc: 490 Interpretive Statements SINUS RHYTHM WITH SINUS ARRHYTHMIA MODERATE T-WAVE ABNORMALITY, CONSIDER LATERAL ISCHEMIA [-0.1+ mV T-WAVE IN I/aVL/V5/V6] WARNING: DATA QUALITY MAY AFFECT INTERPRETATION Compared to ECG 11/25/2021 00:11:45 T-wave abnormality now present Possible ischemia now present Left ventricular hypertrophy no longer present ST (T wave) deviation no longer present Electronically Signed On 11-25-2021 14:01:47 CDT by Willard Vigil M.D. [email or web address]
[2021-11-25 10:12] LABS: Troponin 5 6HR 71.08 ng/L (0-15)
[2021-11-25 10:25] LABS: Hepatitis B Surface AB 3.5 (11.5-1000); Hepatitis B Surface Antigen Non-Reactive (Nonreactive); Hepatitis C Virus Antibody Non-Reactive (Nonreactive)
--- NOTE | 2021-11-25 10:46 | PM.PN ---
Subjective Subjective: Leopoldo reports he feels like his breathing is little bit better. He does not think he is fluid overloaded as his weight is okay. He thinks he just has pneumonia. He does not think skipping dialysis contributed much to his breathing difficulty. History and physical reviewed. Medications: Reviewed: Yes Vitals/I&O/Wt Last Vital Signs Temp 98.6 F 11/25/21 10:13 Pulse 85 11/25/21 10:13 Resp 10 L 11/25/21 10:13 BP 137/75 11/25/21 10:13 Pulse Ox 91 11/25/21 08:35 O2 Del Method 11/25/21 08:35 O2 Flow Rate 4 11/25/21 08:35 11/24/21 11/25/21 11/25/21 22:59 06:59 14:59 Intake Total 102.748 / 102.748 731.418 / 731.418 Balance 102.748 / 102.748 731.418 / 731.418 Weight last 48 hrs Weight 91.767 kg Weight 90.718 kg Physical Exam Narrative: General exam is a white male, no distress Neck is supple Cardiovascular regular rate and rhythm without murmur Lungs few expiratory wheezes Abdomen is soft with positive bowel sounds Extremities no cyanosis clubbing. Trace edema is noted. Data : 11/25/21 00:15 11/25/21 00:15 Micro: Microbiology 11/25/21 01:21 Blood Culture - Preliminary Blood SPECIMEN COLLECTED A&P Assessment and plan (1) Non-compliance with renal dialysis: Patient with multiple episodes of noncompliance, due to transportation issues. He reports his vehicle broke down and he could not make dialysis on Thursday. Status: Acute (2) Diastolic CHF: Acute fluid overload secondary to noncompliance with dialysis Nephrology consultation for dialysis Status: Acute Qualifiers: Heart failure chronicity: chronic Qualified Code(s): I50.32 - Chronic diastolic (congestive) heart failure (3) Hypertensive emergency: Secondary to noncompliance with dialysis Initially placed on an esmolol drip Wean off as tolerated, home medication started Reinitiation of dialysis should improve patient significantly Status: Acute (4) COPD exacerbation: Continue prednisone Pulmonary toilet Encouraged him to stop smoking Baseline oxygen requirement is 4 L. Status: Acute (5) Acute hypoxemic respiratory failure: Secondary to COPD, acute diastolic heart failure. This is already improving. Status: Acute Plan End-stage renal disease on hemodialysis. Appreciate nephrology consultation Full code Heparin for DVT prophylaxis Attestations Medical Necessity Statement*: Needs continued hospitalization secondary to fluid overload from noncompliance with dialysis. Coding Level of Care Code Acute Machine Deicer Element Winder for Shilpa Phillips Diagnoses Non-compliance with renal dialysis Z91.15 Diastolic CHF I50.32 Heart failure chronicity: chronic Hypertensive emergency I16.1 COPD exacerbation J44.1 Acute hypoxemic respiratory failure J96.01
--- NOTE | 2021-11-25 13:08 | PC.CHAP ---
Pastoral Care Encounter/Spiritual Assessment Type of Contact [] Declined director health visit [] Patient/Family/Request visit [] Outpatient visit [] Follow-up visit [] Physician referral [] Code/Alert [x] Routine visit [] Staff referral [] Actively dying [] Patient sleeping [] Family support [] [] Out of room [] Palliative care [] [] Receiving care in room [] Pre-surgical visit [] Trauma [] Long length of stay [x] ICU visit [] Other: Relational/Emotional Strength [] Patient feels connected with others/family/visitors/staff [] Distress [] Loneliness/isolation [] Abandonment Spirituality of Patient [] Person of Manjula [] Attends Gnosticist of their Manjula [] Believes in Prayer [] Reads Bible or Gnosticism materials [] There are Spiritual issues to be addressed Pharmacy Cashier Interventions [x] Prayer [] Active listening [] Non-anxious presence [] Spiritual/emotional support [] Crisis/trauma care [] Spiritual counseling [] Bereavement support [] Provided bereavement packet [] Provided Bible/devotional materials [] Provided toy/stuffed animal, coloring book to patient or family member [] Provided Communion [] Anointing/[place] [] Salvation [x] Completed spiritual assessment [] Other: Impact on Illness or Injury [] Angry [] Fearful [] Anxious [] Often cries [] Exhaustion [] Unable to work [] Unable to attend hindu [] Unable to walk/stand [] Unable to read [] Unable to drive [] Unable to eat/drink [] Unable to sleep [] Unable to be with family [] Patient intubated [] Other: Summary Time spent with patient
--- NOTE | 2021-11-25 20:28 | PC.NURSE ---
Transfer Note Patient transferred to med-surg room 250-2 from ICU via bed on 4LNC. Patient alert/oriented x4 at time of transfer & denies pain. Handoff report given to SHAWNA Duvall. Patient oriented to environment and equipment. Covering service notified. Orders reviewed and will continue to monitor.
--- NOTE | 2021-11-25 20:36 | PC.NURSE ---
Patient is drowsy, but arousable to touch. Per report from INDUSTRIAL RELATIONS MANAGER, this is not new for patient.
--- NOTE | 2021-11-25 20:55 | PC.NURSE ---
Patient drowsy, arousable via sternal rub. Dr. Benavidez notified.
[2021-11-25 21:03] LABS: Glucose Point of Care 137 mg/dL (70-110)
--- NOTE | 2021-11-25 22:38 | PC.NURSE ---
Patient now awake sitting on the side of the bed. Patient notified that earlier he was difficult to awaken. Patient states I didn't want to wake up.
[2021-11-26] VITALS (18 sets, daily range): BP systolic 152–173; BP diastolic 72–81; PULSE 68–88; RESP 16–18; TEMP 36.6–37; O2SAT 91–98
[2021-11-26] MEDS: isosorbide mononitrate ER 60 mg Tablet 120 MG PO (03:43)
[2021-11-26] MEDS: citalopram 20 mg Tablet PO (03:43)
[2021-11-26] MEDS: pantoprazole 40 mg SDV IVP (03:43)
[2021-11-26] MEDS: trazodone 150 mg Tablet PO ×2 (03:43→19:41)
[2021-11-26] MEDS: aspirin 81 mg EC Tablet PO (03:43)
[2021-11-26] MEDS: dilTIAZem ER (24HR) 240 mg Capsule PO (03:43)
[2021-11-26] MEDS: atorvastatin 40 mg Tablet PO (03:43)
[2021-11-26] MEDS: heparin 5,000 unit/mL INJ 1 mL 5000 UNIT SUBCUT ×2 (03:44→17:06)
[2021-11-26 05:05] LABS: Basophils % 0.1 %; Hemoglobin 8.3 g/dL (11.7-16.6); Lymphocytes # 0.6 10^3/uL (0.8-4.8); Lymphocytes % 3.5 %; Mean Corpuscular HGB Conc 30.7 g/dL (30.0-36.0); Mean Corpuscular Hemoglobin 31.8 pg (28.0-34.0); Mean Corpuscular Volume 103.4 fl (80-94); Mean Platelet Volume 9.4 fL (7.4-10.4); Monocytes % 5.8 %; Neutrophils # 14.79 10^3/uL (1.8-7.7); Neutrophils % 90.1 %; Nucleated Red Blood Cells % 0 %; Platelet Count 305 10^3/cmm (130-400); Red Blood Count 2.61 10^6/uL (4.1-5.3); Red Cell Distribution Width 13.1 % (12.1-15.1); White Blood Count 16.4 10^3/uL (4.0-10.0)
[2021-11-26 05:39] LABS: Alanine Aminotransferase < 5 U/L (0-41); Albumin Level 3.3 g/dL (3.5-5.2); Alkaline Phosphatase 74 U/L (40-130); Anion Gap 17.6 (5-19); Aspartate Amino Transferase 9 U/L (0-40); Blood Urea Nitrogen 50 mg/dL (6-20); Calcium 9.1 mg/dL (8.5-10.5); Carbon Dioxide 29 mmol/L (22-29); Chloride 97 mmol/L (98-107); Globulin 3.1 g/dL (1.3-4.6); Glomerular Filtration Rate 5.5 mL/min (90-130); Glucose 138 mg/dL (65-115); Magnesium 1.8 mg/dL (1.7-2.3); Osmolality Calculated 304 mOsm/kg (285-295); Phosphorus 5.1 mg/dL (2.5-4.5); Potassium 4.6 mmol/L (3.5-5.1); Sodium 139 mmol/L (136-145); Total Bilirubin 0.2 mg/dL (0.15-1.2); Total Protein 6.4 g/dL (6.6-8.7)
--- NOTE | 2021-11-26 06:04 | PC.NURSE ---
Dr. Benavidez notified of patient asking for something for a cough.
--- NOTE | 2021-11-26 07:51 | P.PN_ITS ---
Subjective Subjective: seen and examined w/ RN- telehealth visit feels better. dec sob. no n/v/f/c/snyder/d Medications: Reviewed: Yes Medication Review Details: Current Medications Acetaminophen (Acetaminophen 325 Mg Tablet) 650 mg PO Q6H PRN PRN Reason: Mild/Mod Pain Or Temp >/= 101 Albuterol/Ipratropium (Ipratropium-Albuterol 3 Ml Neb) 3 ml INHALATION QID.RESPIRATORY [facility] Last Admin: 11/25/21 15:38 Dose: 3 ml Aspirin (Aspirin 81 Mg Ec Tablet) 81 mg PO QAM [facility] Last Admin: 11/26/21 03:43 Dose: 81 mg Atorvastatin Calcium (Atorvastatin 40 Mg Tablet) [facility] Last Admin: 11/26/21 03:43 Dose: 40 mg Budesonide (Budesonide 0.5 Mg/2 Ml Neb) 0.5 mg INHALATION BID.RESPIRATORY [facility] Last Admin: 11/25/21 08:07 Dose: 0.5 mg Carvedilol (Carvedilol 25 Mg Tablet) 50 mg PO SuTuTh@1200,2100 [facility] Citalopram Hydrobromide (Citalopram 20 Mg Tablet) 20 mg PO [facility]ATHE [facility] Last Admin: 11/26/21 03:43 Dose: 20 mg Clonidine HCl (Clonidine 0.1 Mg Tablet) 0.15 mg PO BID [facility] Last Admin: 11/25/21 17:01 Dose: 0.15 mg Diltiazem HCl (Diltiazem Er (24hr) 240 Mg Capsule) 240 mg PO [facility]ATHE [facility] Last Admin: 11/26/21 03:43 Dose: 240 mg Heparin Sodium (Porcine) (Heparin 5,000 Unit/Ml Inj 1 Ml) 5,000 unit SUBCUT Q12H [facility] Last Admin: 11/26/21 03:44 Dose: 5,000 unit Hydralazine HCl (Hydralazine 50 Mg Tablet) 100 mg PO TID [facility] Last Admin: 11/25/21 20:07 Dose: 100 mg Isosorbide Mononitrate (Isosorbide Mononitrate Er 60 Mg Tablet) 120 mg PO QAM [facility] Last Admin: 11/26/21 03:43 Dose: 120 mg Naloxone HCl (Naloxone 0.4 Mg/Ml Sdv) 0.1 mg IVP Q2M PRN PRN Reason: OPIATERV Non-Formulary Medication (Sucroferric Oxyhydroxide [Velphoro]) 0 tab PO DIRECTED [facility] Non-Formulary Medication (Vit B,L-Df-Tjjf-Selen-Vit D3-E [Renaplex-D]) 1 tab PO DAILY [facility] Last Admin: 11/25/21 08:27 Dose: 1 tab Ondansetron HCl (Ondansetron 2 Mg/Ml Sdv 2 Ml) 4 mg IVP Q8H PRN PRN Reason: vomiting, or N/V if npo Pantoprazole Sodium (Pantoprazole 40 Mg Sdv) 40 mg IVP Q24H [facility] Last Admin: 11/26/21 03:43 Dose: 40 mg Prednisone (Prednisone 20 Mg Tablet) 40 mg PO DAILY [facility] Trazodone HCl (Trazodone 150 Mg Tablet) 150 mg PO BEDTIME PRN PRN Reason: Sleep Last Admin: 11/26/21 03:43 Dose: 150 mg Vitals/I&O/Wt Last Vital Signs Temp 98.6 F 11/26/21 07:22 Pulse 77 11/26/21 07:22 Resp 18 11/26/21 07:22 BP 157/74 11/26/21 07:22 Pulse Ox 94 11/26/21 07:22 O2 Del Method 11/26/21 07:22 O2 Flow Rate 3.5 11/26/21 03:23 11/25/21 11/26/21 11/26/21 22:59 06:59 14:59 Intake Total 222 / 5451.716 7312 / 3545.723 Balance 222 / -3505.544 9681 / 45.723 Weight last 48 hrs Weight 90 kg Weight 91.767 kg Weight 90.718 kg Physical Exam Narrative: more comfortable in bed vs noted- bp improved heent- nc/st, eomi, anicteric neck supple lungs -improved. dec wheezing b/l heart reg, +KEVIN abd soft, nt, nd, + bs ext - dec b/l edema access- left Ant chest wall permacath neuro a,a, o x 3 Data : 11/26/21 04:10 11/26/21 04:10 Micro: Microbiology 11/25/21 01:21 Blood Culture - Preliminary Blood NEGATIVE TO DATE A&P Assessment and plan (1) End stage kidney disease: 46 yr old man 1. ESRD- HD MWF 2. htn improving 3.anemia- high ferritin- give dolly 4. leukocytosis- monitor for infection per medicine 5. paulinas quinten seen and examined w/ rN- telehealth visit Status: Acute Plan see above Attestations Medical Necessity Statement*: per medicine Time Spent in Patient Care: 16 - 35 minutes (>than 50% of time spent in counselling and/or direct pt care on unit) . Coding Level of Care Code Acute Coding Technician for Shilpa Phillips Diagnoses End stage kidney disease N18.6
[2021-11-26] MEDS: ipratropium-albuterol 3 mL Neb INHALATION ×5 (08:41→23:54)
[2021-11-26] MEDS: budesonide 0.5 mg/2 mL Neb INHALATION ×2 (08:41→21:06)
--- NOTE | 2021-11-26 08:41 | PM.PN ---
Subjective Subjective: Leopoldo reports he feels terrible. States he still wheezing. Does not feel like he has any energy. Reports he does not feel as short of breath. Occasional cough. Medications: Reviewed: Yes Vitals/I&O/Wt Last Vital Signs Temp 98.6 F 11/26/21 07:22 Pulse 76 11/26/21 08:38 Resp 18 11/26/21 08:38 BP 157/74 11/26/21 07:22 Pulse Ox 95 11/26/21 08:38 O2 Del Method 11/26/21 08:38 O2 Flow Rate 4 11/26/21 08:38 11/25/21 11/26/21 11/26/21 22:59 06:59 14:59 Intake Total 222 / 8526.158 8710 / 3545.723 Balance 222 / -3190.395 5718 / 45.72 Weight last 48 hrs Weight 90 kg Weight 91.767 kg Weight 90.718 kg Physical Exam Narrative: General exam is a white male, no distress Neck is supple Cardiovascular regular rate and rhythm without murmur Lungs few expiratory wheezes Abdomen is soft with positive bowel sounds Extremities no cyanosis clubbing. Trace edema is noted. Data : 11/26/21 04:10 11/26/21 04:10 Micro: Microbiology 11/25/21 01:21 Blood Culture - Preliminary Blood NEGATIVE TO DATE A&P Assessment and plan (1) Non-compliance with renal dialysis: Patient with multiple episodes of noncompliance, due to transportation issues. He reports his vehicle broke down and he could not make dialysis on Thursday. Status: Acute (2) Diastolic CHF: Acute fluid overload secondary to noncompliance with dialysis Nephrology consultation for dialysis. This was initiated yesterday and he did well. Down to 4 L nasal cannula which is his baseline. Status: Acute Qualifiers: Heart failure chronicity: chronic Qualified Code(s): I50.32 - Chronic diastolic (congestive) heart failure (3) Hypertensive emergency: Secondary to noncompliance with dialysis Initially placed on an esmolol drip This has been weaned off and his home medicine has been restarted. Doses adjusted per nephrology. Blood pressure is improved. Status: Acute (4) COPD exacerbation: Continue prednisone Pulmonary toilet, change DuoNeb to every 4 hours scheduled Encouraged him to stop smoking Baseline oxygen requirement is 4 L. Add doxycycline Elevated white blood cell count likely secondary to steroids. No evidence of pneumonia on chest x-ray. Status: Acute (5) Acute hypoxemic respiratory failure: Secondary to COPD, acute diastolic heart failure. Improved. Has witnessed apnea consistent with sleep apnea. He refuses BiPAP in the hospital as well as at home. Discussed with him today. Status: Acute Plan End-stage renal disease on hemodialysis. Appreciate nephrology consultation Full code Heparin for DVT prophylaxis Attestations Medical Necessity Statement*: Needs continued hospitalization for pulmonary toilet, close monitoring for COPD exacerbation. High likelihood of readmission later today to the emergency department if discharged at this time. Coding Level of Care Code Acute Television Repairer for Shilpa Fwjose manuel Diagnoses Non-compliance with renal dialysis Z91.15 Diastolic CHF I50.32 Heart failure chronicity: chronic Hypertensive emergency I16.1 COPD exacerbation J44.1 Acute hypoxemic respiratory failure J96.01
[2021-11-26] MEDS: hyDRALAzine 50 mg Tablet PO ×3 (09:00→19:41)
[2021-11-26] MEDS: cloNIDine 0.1 mg Tablet PO ×2 (09:00→17:06)
[2021-11-26] MEDS: predniSONE 20 mg Tablet 40 MG PO (09:01)
[2021-11-26] MEDS: doxycycline 100 mg Tablet PO ×2 (09:02→17:06)
--- NOTE | 2021-11-26 10:55 | PC.CHAP ---
Pastoral Care Encounter/Spiritual Assessment Type of Contact [] Declined coil inspector visit [] Patient/Family/Request visit [] Outpatient visit [] Follow-up visit [] Physician referral [] Code/Alert [x] Routine visit [] Staff referral [] Actively dying [x] Patient sleeping [] Family support [] [] Out of room [] Palliative care [] [] Receiving care in room [] Pre-surgical visit [] Trauma [] Long length of stay [] ICU visit [] Other: Relational/Emotional Strength [] Patient feels connected with others/family/visitors/staff [] Distress [] Loneliness/isolation [] Abandonment Spirituality of Patient [] Person of Manjula [] Attends Christianity of their [place] [] Believes in Prayer [] Reads Bible or Jain materials [] There are Spiritual issues to be addressed Vp Public Relations Interventions [] Prayer [] Active listening [] Non-anxious presence [] Spiritual/emotional support [] Crisis/trauma care [] Spiritual counseling [] Bereavement support [] Provided bereavement packet [] Provided Bible/devotional materials [] Provided toy/stuffed animal, coloring book to patient or family member [] Provided Communion [] Anointing/[place] [] Salvation [] Completed spiritual assessment [] Other: Impact on Illness or Injury [] Angry [] Fearful [] Anxious [] Often cries [] Exhaustion [] Unable to work [] Unable to attend judaism [] Unable to walk/stand [] Unable to read [] Unable to drive [] Unable to eat/drink [] Unable to sleep [] Unable to be with family [] Patient intubated [] Other: Summary Time spent with patient
[2021-11-26] MEDS: epoetin alfa 10,000 unit/mL INJ 10000 UNIT SUBCUT (12:41)
[2021-11-26] MEDS: carvedilol 25 mg Tablet 50 MG PO ×2 (12:42→19:41)
--- NOTE | 2021-11-26 23:49 | PC.NURSE ---
Patient refusing to wear telemetry.
[2021-11-27] VITALS (13 sets, daily range): BP systolic 164–207; BP diastolic 79–124; PULSE 65–87; RESP 16–22; TEMP 36.3–36.7; O2SAT 92–96
[2021-11-27] MEDS: ipratropium-albuterol 3 mL Neb INHALATION ×3 (03:52→11:46)
[2021-11-27] MEDS: isosorbide mononitrate ER 60 mg Tablet 120 MG PO (04:14)
[2021-11-27] MEDS: aspirin 81 mg EC Tablet PO (04:15)
[2021-11-27] MEDS: dilTIAZem ER (24HR) 240 mg Capsule PO (04:15)
[2021-11-27] MEDS: atorvastatin 40 mg Tablet PO (04:15)
[2021-11-27] MEDS: pantoprazole 40 mg SDV IVP (04:15)
[2021-11-27] MEDS: heparin 5,000 unit/mL INJ 1 mL 5000 UNIT SUBCUT ×2 (04:15→17:10)
[2021-11-27] MEDS: citalopram 20 mg Tablet PO (04:15)
[2021-11-27 04:40] LABS: Basophils % 0.1 %; Hematocrit 28.6 % (42.0-52.0); Hemoglobin 8.8 g/dL (11.7-16.6); Lymphocytes # 0.7 10^3/uL (0.8-4.8); Lymphocytes % 4.2 %; Mean Corpuscular HGB Conc 30.8 g/dL (30.0-36.0); Mean Corpuscular Hemoglobin 31.8 pg (28.0-34.0); Mean Corpuscular Volume 103.2 fl (80-94); Mean Platelet Volume 9.4 fL (7.4-10.4); Monocytes % 6.2 %; Neutrophils # 13.97 10^3/uL (1.8-7.7); Nucleated Red Blood Cells % 0.1 %; Platelet Count 283 10^3/cmm (130-400); Red Blood Count 2.77 10^6/uL (4.1-5.3); Red Cell Distribution Width 13.2 % (12.1-15.1); White Blood Count 15.9 10^3/uL (4.0-10.0)
[2021-11-27 05:13] LABS: Alanine Aminotransferase 7 U/L (0-41); Albumin Level 3.4 g/dL (3.5-5.2); Alkaline Phosphatase 71 U/L (40-130); Aspartate Amino Transferase 7 U/L (0-40); Calcium 9.6 mg/dL (8.5-10.5); Carbon Dioxide 27 mmol/L (22-29); Chloride 94 mmol/L (98-107); Globulin 2.9 g/dL (1.3-4.6); Glomerular Filtration Rate 4.4 mL/min (90-130); Glucose 150 mg/dL (65-115); Magnesium 1.9 mg/dL (1.7-2.3); Osmolality Calculated 313 mOsm/kg (285-295); Phosphorus 4.6 mg/dL (2.5-4.5); Sodium 138 mmol/L (136-145); Total Bilirubin 0.2 mg/dL (0.15-1.2); Total Protein 6.3 g/dL (6.6-8.7)
[2021-11-27 05:38] LABS: Blood Urea Nitrogen 81 mg/dL (6-20)
--- NOTE | 2021-11-27 06:29 | P.PN_ITS ---
Subjective Subjective: weak, less sob. no n/v/f/c/snyder/d. has trace edema Medications: Reviewed: Yes Medication Review Details: Current Medications Acetaminophen (Acetaminophen 325 Mg Tablet) 650 mg PO Q6H PRN PRN Reason: Mild/Mod Pain Or Temp >/= 101 Albuterol/Ipratropium (Ipratropium-Albuterol 3 Ml Neb) 3 ml INHALATION Q4H [facility] Last Admin: 11/27/21 03:52 Dose: 3 ml Aspirin (Aspirin 81 Mg Ec Tablet) [facility] Last Admin: 11/27/21 04:15 Dose: 81 mg Atorvastatin Calcium (Atorvastatin 40 Mg Tablet) 40 mg PO QAM [facility] Last Admin: 11/27/21 04:15 Dose: 40 mg Budesonide (Budesonide 0.5 Mg/2 Ml Neb) 0.5 mg INHALATION BID.RESPIRATORY [facility] Last Admin: 11/26/21 21:06 Dose: 0.5 mg Carvedilol (Carvedilol 25 Mg Tablet) 50 mg PO SuTuThSa@1200,2100 [facility] Last Admin: 11/26/21 19:41 Dose: 50 mg Citalopram Hydrobromide (Citalopram 20 Mg Tablet) [facility] [place] Last Admin: 11/27/21 04:15 Dose: 20 mg Clonidine HCl (Clonidine 0.1 Mg Tablet) 0.1 mg PO BID [facility] Last Admin: 11/26/21 17:06 Dose: 0.1 mg Diltiazem HCl (Diltiazem Er (24hr) 240 Mg Capsule) [facility] [place] Last Admin: 11/27/21 04:15 Dose: 240 mg Doxycycline Monohydrate (Doxycycline 100 Mg Tablet) 100 mg PO BID [facility]; Protocol Last Admin: 11/26/21 17:06 Dose: 100 mg Heparin Sodium (Porcine) (Heparin 5,000 Unit/Ml Inj 1 Ml) 5,000 unit SUBCUT Q12H [facility] Last Admin: 11/27/21 04:15 Dose: 5,000 unit Hydralazine HCl (Hydralazine 50 Mg Tablet) 50 mg PO TID [facility] Last Admin: 11/26/21 19:41 Dose: 50 mg Isosorbide Mononitrate (Isosorbide Mononitrate Er 60 Mg Tablet) 120 mg PO QAM [facility] Last Admin: 11/27/21 04:14 Dose: 120 mg Naloxone HCl (Naloxone 0.4 Mg/Ml Sdv) 0.1 mg IVP Q2M PRN PRN Reason: OPIATERV Non-Formulary Medication (Sucroferric Oxyhydroxide [Velphoro]) 0 tab PO DIRECTED [facility] Non-Formulary Medication (Vit B,S-En-Ibod-Selen-Vit D3-E [Renaplex-D]) 1 tab PO DAILY [facility] Last Admin: 11/26/21 09:16 Dose: Not Given Ondansetron HCl (Ondansetron 2 Mg/Ml Sdv 2 Ml) 4 mg IVP Q8H PRN PRN Reason: vomiting, or N/V if npo Pantoprazole Sodium (Pantoprazole 40 Mg Sdv) 40 mg IVP Q24H [facility] Last Admin: 11/27/21 04:15 Dose: 40 mg Prednisone (Prednisone 20 Mg Tablet) 40 mg PO DAILY [facility] Last Admin: 11/26/21 09:01 Dose: 40 mg Trazodone HCl (Trazodone 150 Mg Tablet) 150 mg PO BEDTIME PRN PRN Reason: Sleep Last Admin: 11/26/21 19:41 Dose: 150 mg Vitals/I&O/Wt Last Vital Signs Temp 98.0 F 11/27/21 03:43 Pulse 87 11/27/21 03:53 Resp 22 H 11/27/21 03:53 BP 164/79 11/27/21 03:43 Pulse Ox 92 11/27/21 03:53 O2 Del Method 11/27/21 03:53 O2 Flow Rate 4 11/27/21 03:53 11/26/21 11/26/21 11/27/21 14:59 22:59 06:59 Intake Total 840 / 840 680 / 1520 1400 / 2920 Balance 840 / 840 680 / 1520 1400 / 2920 Weight last 48 hrs Weight 90 kg Physical Exam Narrative: uncomfortable in bed vs noted- bp improved heent- nc/at, eomi, anicteric neck supple lungs -improved. dec wheezing b/l heart reg, +KEVIN abd soft, nt, nd, + bs ext - dec b/l edema access- left Ant chest wall permacath neuro a,a, o x 3 Data : 11/27/21 04:03 11/27/21 04:03 A&P Assessment and plan (1) End stage kidney disease: 46 yr old man 1. ESRD- HD MWF -hd now 3.5 hr 2k, remove 3l, 2. htn improving 3.anemia- high ferritin- give dolly 4. leukocytosis- monitor for infection per medicine 5. phos improved, can dec binder seen and examined w/ rN- telehealth visit Status: Acute Plan see above Attestations Medical Necessity Statement*: per medicine for esrd and sob Time Spent in Patient Care: 16 - 35 minutes (>than 50% of time spent in counselling and/or direct pt care on unit) . Coding Level of Care Code Acute Wool Mixer for Shilpa Phillips Diagnoses End stage kidney disease N18.6
[2021-11-27] MEDS: predniSONE 20 mg Tablet 40 MG PO (08:32)
[2021-11-27] MEDS: doxycycline 100 mg Tablet PO ×2 (08:32→20:40)
[2021-11-27] MEDS: cloNIDine 0.1 mg Tablet PO ×2 (08:32→15:58)
[2021-11-27] MEDS: FUROsemide 10 mg/mL SDV 10mL 80 MG IVP (08:33)
[2021-11-27] MEDS: hyDRALAzine 50 mg Tablet PO ×3 (08:33→20:40)
[2021-11-27] MEDS: budesonide 0.5 mg/2 mL Neb INHALATION (08:36)
--- NOTE | 2021-11-27 09:33 | P.DS_ITS ---
Discharge Providers Date of Admission: 11/25/21 05:49 Date of Discharge: November 27, 2021 Attending Provider at Admission: Nish Stack MD Attending Provider at Discharge: Henry Frazier MD Primary Care Provider: Ricardo Stack MD Diagnoses at Discharge Discharge Diagnosis (1) End stage kidney disease: Status: Acute Reason for Visit Reason for Visit: SOB Hospital Course Hospital Course Leopoldo presented to the hospital, with shortness of breath and wheezing secondary to pulmonary edema and fluid overload from noncompliance with dialysis, after he missed a treatment on Thursday. He was admitted to the ICU initially secondary to hypertensive emergency requiring IV medication. Dialysis was initiated, with removal of fluid with improvement in symptoms. Secondary to concern of COPD exacerbation he was also treated with steroids, pulmonary toilet, and doxycycline. With repeat dialysis he improved to a degree he could be discharged on November 27. He will be discharged on 3 days of prednisone, doxycycline, his routine medications and a follow-up with his primary care provider as well as nephrology. Patient was given an opportunity to ask questions and agrees with the treatment plan. Physical Exam Narrative: General exam no distress Neck is supple Cardiovascular regular rate and rhythm without murmur Lungs clear Abdomen is soft positive bowel sounds Extremities no cyanosis clubbing. Trace edema present. Discharge Data Studies Completed and Pending Completed Studies During Hospitalization Category Date Time Status XR chest 1V portable [id number] Stat Exams 11/25/21 00:28 Completed Pending at discharge Category Date Time Status Blood Culture Stat Lab 11/25/21 01:21 Results Complete Blood Count w/Auto AM LABS Lab 11/28/21 04:00 Ordered Comprehensive Metabolic Panel AM LABS Lab 11/28/21 04:00 Ordered Magnesium AM LABS Lab 11/28/21 04:00 Ordered Phosphorus AM LABS Lab 11/28/21 04:00 Ordered Sputum Culture and Gram Stain Stat Lab 11/25/21 02:43 Uncollected Radiology Impressions Chest X-Ray 11/25/21 00:28 IMPRESSION: Mild pulmonary edema and small right pleural effusion. Laboratory Results WBC 15.9 10^3/uL (4.0-10.0) H 11/27/21 04:03 RBC 2.77 10^6/uL (4.1-5.3) L 11/27/21 04:03 Hgb 8.8 g/dL (11.7-16.6) L 11/27/21 04:03 Hct 28.6 % (42.0-52.0) L 11/27/21 04:03 MCV 103.2 fl (80-94) H 11/27/21 04:03 MCH 31.8 pg (28.0-34.0) 11/27/21 04:03 MCHC 30.8 g/dL (30.0-36.0) 11/27/21 04:03 RDW 13.2 % (12.1-15.1) 11/27/21 04:03 Plt Count 283 10^3/cmm (130-400) 11/27/21 04:03 MPV 9.4 fL (7.4-10.4) 11/27/21 04:03 Neut % (Auto) 88.0 % 11/27/21 04:03 Lymph % (Auto) 4.2 % 11/27/21 04:03 [place] % (Auto) 6.2 % 11/27/21 04:03 Eos % (Auto) 0.0 % 11/27/21 04:03 Baso % (Auto) 0.1 % 11/27/21 04:03 Neut # (Auto) 13.97 10^3/uL (1.8-7.7) H 11/27/21 04:03 Lymph # (Auto) 0.7 10^3/uL (0.8-4.8) L 11/27/21 04:03 [place] # (Auto) 1.0 10^3/uL (0.2-0.9) H 11/27/21 04:03 Eos # (Auto) 0.0 10^3/uL (0.0-0.8) 11/27/21 04:03 Baso # (Auto) 0.0 10^3/uL (0.0-0.1) 11/27/21 04:03 Nucleated RBC % (auto) 0.1 % 11/27/21 04:03 Nucleated RBCs # 0.0 /100WBC 11/27/21 04:03 Sodium 138 mmol/L (136-145) 11/27/21 04:03 Potassium 5.0 mmol/L (3.5-5.1) 11/27/21 04:03 Chloride 94 mmol/L (98-107) L 11/27/21 04:03 Carbon Dioxide 27 mmol/L (22-29) 11/27/21 04:03 Anion Gap 22.0 (5-19) H 11/27/21 04:03 BUN 81 mg/dL (6-20) H D 11/27/21 04:03 Creatinine 12.2 mg/dL (0.7-1.2) H* 11/27/21 04:03 GFR Calculation 4.4 mL/min (90-130) L 11/27/21 04:03 Glucose 150 mg/dL (65-115) H 11/27/21 04:03 POC Glucose 137 mg/dL (70-110) H 11/25/21 21:00 Calculated Osmolality 313 mOsm/kg (285-295) H 11/27/21 04:03 Lactic Acid 0.8 mmol/L (0.5-2.2) 11/25/21 00:15 Calcium 9.6 mg/dL (8.5-10.5) 11/27/21 04:03 Phosphorus 4.6 mg/dL (2.5-4.5) H 11/27/21 04:03 Magnesium 1.9 mg/dL (1.7-2.3) 11/27/21 04:03 Total Bilirubin 0.2 mg/dL (0.15-1.2) 11/27/21 04:03 AST 7 U/L (0-40) 11/27/21 04:03 ALT 7 U/L (0-41) 11/27/21 04:03 Alkaline Phosphatase 71 U/L (40-130) 11/27/21 04:03 Troponin T Baseline 80 ng/L (0-15) H 11/25/21 03:28 Troponin T 120 Minute 85.23 ng/L (0-15) H 11/25/21 05:50 Delta Troponin T 5.23 ABS# (0-10) 11/25/21 05:50 Troponin T Hi Sens 6Hr 71.08 ng/L (0-15) H 11/25/21 09:43 Troponin T Hi Sens 6Hr Delta -8.92 ng/L (0-12) L 11/25/21 09:43 C-Reactive Protein 39.4 mg/L (0.0-4.9) H 11/25/21 00:15 C-Reactive Protein Cancelled 11/25/21 00:15 NT-Pro-B Natriuret Pep > 15427 pg/mL (0-125) H 11/25/21 00:15 Total Protein 6.3 g/dL (6.6-8.7) L 11/27/21 04:03 Albumin 3.4 g/dL (3.5-5.2) L 11/27/21 04:03 Globulin 2.9 g/dL (1.3-4.6) 11/27/21 04:03 Procalcitonin 1.13 ng/mL (0-0.5) H 11/25/21 00:15 TSH 1.53 uIU/mL (0.27-4.20) 11/25/21 05:50 Hep Bs Antigen Non-reactive (Nonreactive) 11/25/21 09:43 Hep Bs Antibody 3.5 (11.5-1000) L 11/25/21 09:43 Hepatitis C Antibody Non-reactive (Nonreactive) 11/25/21 09:43 Vitals Last Vital Signs Temp 98.0 F 11/27/21 03:43 Pulse 67 11/27/21 08:42 Resp 22 H 11/27/21 08:36 BP 173/88 11/27/21 08:32 Pulse Ox 94 11/27/21 08:36 O2 Del Method 11/27/21 08:36 O2 Flow Rate 4 11/27/21 08:36 Discharge Plan Discharge Patient Disposition: Home Condition: Stable Prescriptions: New prednisone 20 mg Tablet 40 mg PO DAILY Qty: 6 0RF doxycycline monohydrate 100 mg Tablet 100 mg PO BID Qty: 16 0RF Continued Velphoro 500 mg tablet,chewable See Rx Instructions .ROUTE .COMPLEX Rx Instructions: 3 tabs po with meals and 2-3 tabs po with snacks terbinafine HCl 250 mg tablet 250 mg PO DAILY 90 Days Qty: 30 2RF RenaPlex-D 800 mcg-12.5 mg -2,000 unit tablet 1 tab PO DAILY (DME) Home oxygen See Rx Instructions .Route .MEDSUPPLY Qty: 1 0RF Rx Instructions: As directed budesonide-formoterol [Symbicort] 160-4.5 mcg/actuation HFA aerosol inhaler 2 puff inhalation BID 30 Days Qty: 10.2 2RF ipratropium-albuterol 0.5 mg-3 mg(2.5 mg base)/3 mL solution for nebulization 3 ml inhalation Q8H PRN (Reason: shortness of breath or wheezing) Qty: 90 2RF triamcinolone acetonide 0.025 % ointment 1 applic topical TID PRN (Reason: allergic reaction) 14 Days Qty: 454 1RF pantoprazole 40 mg tablet,delayed release (DR/EC) 40 mg PO BID Qty: 180 1RF atorvastatin 40 mg tablet 40 mg PO QAM Qty: 90 1RF hydralazine 100 mg tablet 100 mg PO TID Qty: 90 1RF Rx Instructions: MUST have follow-up with new provider for further refills fluticasone propionate 50 mcg/actuation spray,suspension 1 - 2 spray INTRANASAL DAILY PRN (Reason: Allergy Symptoms) carvedilol [Coreg] 25 mg tablet See Rx Instructions .ROUTE .COMPLEX Qty: 180 1RF Rx Instructions: 50 mg orally twice a day except on dialysis days (mon,wed,fri) takes 50mg at noon and bedtime ondansetron HCl 8 mg tablet 8 mg PO Q8H PRN (Reason: Nausea And Vomiting) acetaminophen 500 mg Tablet 1,000 mg PO Q4H PRN (Reason: Pain) aspirin 81 mg tablet,delayed release (DR/EC) 81 mg PO QAM diltiazem HCl 240 mg capsule,extended release 24hr 240 mg PO QAM citalopram 20 mg tablet 20 mg PO QAM trazodone 150 mg tablet 150 mg PO BEDTIME clonidine HCl 0.1 mg tablet 0.2 mg PO TID albuterol sulfate 90 mcg/actuation HFA aerosol inhaler 2 puff INHALATION Q4H PRN (Reason: Shortness Of Breath) isosorbide mononitrate 120 mg tablet extended release 24 hr 120 mg PO QAM Discharge Orders: Discharge Order (Routine); Ordered 11/27/21 Ordered By: Henry Frazier Referrals: Nish Stack MD [Hospitalist] - 12/03/21 1:00 pm (WITH DARRELL ROSS @ [facility]) Ricardo Stack MD [Primary Care Provider] - Discharge Diet: Usual diet Discharge Activity: Increase activity as tolerated Patient Instructions: Opioid Safety Activity Restrictions/Additional Instructions: Renal dialysis diet Take all medicine as prescribed Follow-up with nephrology at dialysis on Thursday Follow-up with primary care provider 3 to 5 days Discharge Attestations Time Spent in Discharge Care*: greater than 30 min Status at Discharge: Cognitive status at discharge: cognitively intact , Behavioral status at discharge: cooperative , Quality Metrics Clinical Quality Measures [ No reported AMI, CVA or VTE this stay] Coding Level of Care Code Acute Chg FW DC note Diagnoses End stage kidney disease N18.6
--- NOTE | 2021-11-27 20:55 | PC.NURSE ---
Discharge Note: Pt in dialysis at shift change and has orders to discharge afterwards. Evening medications given after dialysis, IV removed, home medications given from pyxis, discharge instructions goven and questions answered. Pt is is now waiting in the lobby across from the nurses desk for his to pick him up.
--- NOTE | 2021-11-27 22:02 | PC.NURSE ---
Discharge The patient was waiting in the Med Surg waiting room for his ride. The patient approached the nurses' station and asked this nurse if I could assist him down to the emergency room. This nurse asked the patient if his ride was almost here, and the patient stated just about. The patient refused to be wheeled down and assisted on walking. The patient had his home oxygen tank with him, but was not wearing his nasal canula. This nurse asked the patient if he could make the walk without his oxygen and he stated he could and his tank was empty either way. This nurse rolled the patient's oxygen down for him. This nurse asked the patient if he needed to stop throughout the walk. The patient made the walk and had to stop about twenty feet from the ER North Entrance due to being slightly short of breath. When the patient caught his breath, he continued the walk. Upon exiting the facility, this nurse asked the patient again, if his ride was almost here. The patient stated, just about, probably in [place]. The patient stated he lived in [place] when asked. The patient stated he just wanted some fresh air. This nurse informed that patient that he could come inside and sit in the ER waiting room if he became tired of standing. The patient stated he could just sit in the wheelchair that was already waiting outside.
== END 2021-11-27 22:00 | disposition home or self-care (01) | DRG 291 ==
LOC: ER 02:30 → ICU 06:20 → MEDSURG 20:39
PROVIDERS: Internal Medicine Nephrology; Admitting Provider Family Medicine; Emergency Provider Emergency Medicine; PCP Radiology Diagnostic Radiology; Visit Provider Internal Medicine
DX: I13.2 Hypertensive heart and chronic kidney disease with heart failure and with stage 5 chronic kidney disease, or end stage renal disease (principal); J96.01 Acute respiratory failure with hypoxia; N18.6 End stage renal disease; J44.1 Chronic obstructive pulmonary disease with (acute) exacerbation; I16.1 Hypertensive emergency; I50.32 Chronic diastolic (congestive) heart failure; Z99.2 Dependence on renal dialysis; Z91.15 Patient's noncompliance with renal dialysis; F17.210 Nicotine dependence, cigarettes, uncomplicated; I25.10 Atherosclerotic heart disease of native coronary artery without angina pectoris; D63.1 Anemia in chronic kidney disease; F41.8 Other specified anxiety disorders; I48.91 Unspecified atrial fibrillation; Z99.81 Dependence on supplemental oxygen; K21.9 Gastro-esophageal reflux disease without esophagitis; G47.33 Obstructive sleep apnea (adult) (pediatric); I48.0 Paroxysmal atrial fibrillation; Z79.51 Long term (current) use of inhaled steroids; Z79.891 Long term (current) use of opiate analgesic
CPT/HCPCS: 36415; 36416; 71045; 80053; 82962; 83605; 83735; 83880; 84100; 84145; 84443; 84484; 85025; 86140; 86706; 86803; 87040; 87340; 93005; 94640; 96365; 96366; 96372; 96375; 99285; C9113; J1644; J1940; J2930; J3490; J7512; J7626; Q3014; Q4081

== ENCOUNTER 2021-11-29 06:37 | Emergency (ER) | payer MEDICARE, MEDICAID, SELFPAY ==
[2021-11-29 06:39] VITALS: BP 185/103; PULSE 76; RESP 20; TEMP 36.8; O2SAT 92; BMI 29.4
--- NOTE | 2021-11-29 06:44 | XR_ITS ---
WS: [id number] Exam: XR chest 1V portable [id number] Date/Time of Exam: 11/29/2021 6:58 AM Reason For Exam: chest pain Comparison 11/25/2021. There is cardiac enlargement with diffuse interstitial infiltrate suggesting that of pulmonary edema. Small right pleural effusion. The lungs are fully expanded. Left subclavian double lumen dialysis ca theter ends in the right atrium. Little change since previous study. The mediastinum is normal in con tour. Bony structures are intact. XR/XR chest 1V portable [id number] IMPRESSION: 1. Mild cardiac enlargement. 2. Diffuse interstitial infiltrate that may represent pulmonary edema or inters titial pneumonia. Small right basal pleural effusion unchanged.
--- NOTE | 2021-11-29 06:47 | ED_ITS ---
HPI - SOB/Dyspnea General: Chief Complaint: Chest Pain Stated Complaint: SOB Time Seen by Provider: 11/29/21 06:43 Source: patient Mode of arrival: EMS History of Present Illness: HPI Narrative: 46-year-old male with end-stage renal disease multiple hospitalizations for noncompliance on his renal dialysis. Presents via EMS with complaint of shortness of breath and chest discomfort. He was at his dialysis appointment and EMS. Patient has a history of diabetes mellitus he has end-stage renal disease he has mild coronary artery disease had an angiogram on March 16, 2021 that showed 20% lesion in his RCA with good flow. Patient states he did have his usual runs of dialysis prior to today. He is due for dialysis today. Patient is normally on oxygen he is on his usual 2 to 3 L at this time satting in the mid to upper 90s. MD elicited complaint: shortness of breath Pertinent past history: congestive heart failure Onset (ago): hour(s) Timing: constant Severity: mild Exacerbating factors: nothing Associated symptoms: Reports chest pain; Deny abdominal pain, chest congestion, cough, diaphoresis, dizziness, extremity pain, fever(s), hemoptysis, lightheadedness, myalgias, nausea, orthopnea, palpitations, paresthesias, polydipsia, polyuria, rash, sense of impending doom, syncope or vomiting Treatment prior to arrival: oxygen Review of Systems Const: Denies: fever(s), chills, fatigue, malaise or diaphoresis ENMT: Denies: throat pain, ear or mastoid pain, nasal discharge or nasal congestion Card: Reports: chest pain; Denies: palpitations, lightheadedness, syncope or orthopnea Resp: Denies: hemoptysis or chest congestion GI: Denies: abdominal pain, nausea or vomiting : Denies: flank pain, dysuria, urinary frequency or urinary urgency Musc: Denies: extremity pain Skin/Breast: Denies: rash or pruritus Neuro: Denies: dizziness Endo: Denies: polyuria or polydipsia PFS ED PFSH: Medical History (Updated 11/29/21 @ 14:07 by Henry Frazier MD) Allergic dermatitis Anemia Anxiety and depression Atrial fibrillation/flutter Chest pain COPD (chronic obstructive pulmonary disease) Reports he is on 4 L of oxygen at home CRF (chronic renal failure) Dialysis patient Diastolic CHF Elevated troponin Encounter to establish care End stage chronic kidney disease ESRD (end stage renal disease) GERD (gastroesophageal reflux disease) Hypertension Hypertensive emergency Hypoxia Insomnia Lower respiratory tract infection Obstructive sleep apnea Paroxysmal atrial fibrillation with RVR Pleural effusion Resistant hypertension Sebaceous cyst Vitamin D deficiency Surgical History H/O circumcision H/O hand surgery right hand with hardware Presence of peritoneal dialysis catheter S/P dialysis catheter insertion (12/12/19) Removed on 04/04/2020 S/P hemodialysis catheter insertion Family History Other Adopted Denies family history of Anesthesia complication Bleeding disorder Social History Smoking and tobacco status: current every day smoker (1ppd X26 years) cigarettes [ Other cigarette details: On and off quitting and restarting] Alcohol intake: never Household members: significant other Marital status: Single Current occupational status: disabled History of recent travel: Yes Details: [place] Out of state: Yes Physical Exam Const: GENERAL APPEARANCE: cooperative and comfortable ORIENTATION/CONSCIOUSNESS: Yes awake, Yes oriented to person, Yes oriented to place and Yes oriented to time HENMT: COMMON NORMALS: normocephalic, atraumatic and hearing grossly normal bilaterally HEAD & SCALP: normocephalic and atraumatic Resp: COMMON NORMALS: normal respiratory effort, No retractions, No use of accessory muscles and clear to auscultation bilaterally AUSCULTATION: clear to auscultation bilaterally Cardio: COMMON NORMALS: regular rate, regular rhythm and No murmurs present (Cardio) RATE: regular rate RHYTHM: regular rhythm GI: COMMON NORMALS: Soft to palpation and No hepatosplenomegaly present AUSCULTATION: Yes normoactive bowel sounds PALPATION: Yes Soft to palpation, No Tenderness to palpation present (GI), No Guarding due to palpation present (GI) and Yes No hepatosplenomegaly present Extremity: COMMON NORMALS: normal to inspection, capillary refill normal, no clubbing, cyanosis or edema, no calf tenderness and no pedal edema Neuro: SENSORIUM/ORIENTATION: Yes oriented to person, Yes oriented to place and Yes oriented to time Skin: COMMON NORMALS: no rashes or lesions noted GENERAL SKIN EXAM: no rashes or lesions noted Course Vital Signs: Vital signs: Vital Signs Temperature 98.2 F 11/29/21 06:39 Pulse Rate 71 11/29/21 10:00 Respiratory Rate 17 11/29/21 10:00 Blood Pressure 166/98 11/29/21 10:00 Pulse Oximetry 99 11/29/21 10:00 Oxygen Delivery Me thod 11/29/21 10:00 Oxygen Flow Rate 2 11/29/21 10:00 MDM - SOB/Dyspnea Medical Decision Making Initial EKG shows sinus rhythm with LVH but no acute ST changes. Second EKG showed some inversion of lateral T waves look like it was more misplacement of leads after closer review repeat EKG with close attention to lead placement showed it looked identical to initial. We will go ahead and discharge patient to his outpatient dialysis as scheduled today. I did review with Dr. Flores he concurred on treatment plan. Medical Records I reviewed the patient's medical records. Lab Data I reviewed the patient's lab results. : 11/29/21 06:50 11/29/21 06:50 Labs/Radiology: Radiology Impressions Chest X-Ray 11/29/21 06:44 IMPRESSION: 1. Mild cardiac enlargement. 2. Diffuse interstitial infiltrate that may represent pulmonary edema or interstitial pneumonia. Small right basal pleural effusion unchanged. Laboratory Results WBC 9.5 10^3/uL (4.0-10.0) 11/29/21 06:50 RBC 2.85 10^6/uL (4.1-5.3) L 11/29/21 06:50 Hgb 9.1 g/dL (11.7-16.6) L 11/29/21 06:50 Hct 28.8 % (42.0-52.0) L 11/29/21 06:50 MCV 101.1 fl (80-94) H 11/29/21 06:50 MCH 31.9 pg (28.0-34.0) 11/29/21 06:50 MCHC 31.6 g/dL (30.0-36.0) 11/29/21 06:50 RDW 13.1 % (12.1-15.1) 11/29/21 06:50 Plt Count 249 10^3/cmm (130-400) 11/29/21 06:50 MPV 8.5 fL (7.4-10.4) 11/29/21 06:50 Neut % (Auto) 74.5 % 11/29/21 06:50 Lymph % (Auto) 7.3 % 11/29/21 06:50 [place] % (Auto) 14.6 % 11/29/21 06:50 Eos % (Auto) 0.8 % 11/29/21 06:50 Baso % (Auto) 0.2 % 11/29/21 06:50 Neut # (Auto) 7.04 10^3/uL (1.8-7.7) 11/29/21 06:50 Lymph # (Auto) 0.7 10^3/uL (0.8-4.8) L 11/29/21 06:50 [place] # (Auto) 1.4 10^3/uL (0.2-0.9) H 11/29/21 06:50 Eos # (Auto) 0.1 10^3/uL (0.0-0.8) 11/29/21 06:50 Baso # (Auto) 0.0 10^3/uL (0.0-0.1) 11/29/21 06:50 Nucleated RBC % (auto) 0.2 % 11/29/21 06:50 Nucleated RBCs # 0.0 /100WBC 11/29/21 06:50 Sodium 139 mmol/L (136-145) 11/29/21 06:50 Potassium 4.8 mmol/L (3.5-5.1) 11/29/21 06:50 Chloride 96 mmol/L (98-107) L 11/29/21 06:50 Carbon Dioxide 28 mmol/L (22-29) 11/29/21 06:50 Anion Gap 19.8 (5-19) H 11/29/21 06:50 BUN 56 mg/dL (6-20) H 11/29/21 06:50 Creatinine 9.4 mg/dL (0.7-1.2) H* 11/29/21 06:50 GFR Calculation 6.0 mL/min (90-130) L 11/29/21 06:50 Glucose 93 mg/dL (65-115) 11/29/21 06:50 Calculated Osmolality 303 mOsm/kg (285-295) H 11/29/21 06:50 Calcium 9.7 mg/dL (8.5-10.5) 11/29/21 06:50 Total Bilirubin 0.3 mg/dL (0.15-1.2) 11/29/21 06:50 AST 8 U/L (0-40) 11/29/21 06:50 ALT 7 U/L (0-41) 11/29/21 06:50 Alkaline Phosphatase 68 U/L (40-130) 11/29/21 06:50 Troponin T Baseline 81 ng/L (0-15) H 11/29/21 06:50 Troponin T 120 Minute 73.08 ng/L (0-15) H 11/29/21 08:40 Delta Troponin T -7.92 ABS# (0-10) L 11/29/21 08:40 Total Protein 6.2 g/dL (6.6-8.7) L 11/29/21 06:50 Albumin 3.4 g/dL (3.5-5.2) L 11/29/21 06:50 Globulin 2.8 g/dL (1.3-4.6) 11/29/21 06:50 Discharge Plan Discharge Patient Disposition: Home Clinical Impression: End stage renal disease, Hypertension, Sleep apnea Condition: Stable Prescriptions: No Action Velphoro 500 mg tablet,chewable See Rx Instructions .ROUTE .COMPLEX Rx Instructions: 3 tabs po with meals and 2-3 tabs po with snacks terbinafine HCl 250 mg tablet 250 mg PO DAILY 90 Days Qty: 30 2RF RenaPlex-D 800 mcg-12.5 mg -2,000 unit tablet 1 tab PO DAILY (DME) Home oxygen See Rx Instructions .Route .MEDSUPPLY Qty: 1 0RF Rx Instructions: As directed budesonide-formoterol [Symbicort] 160-4.5 mcg/actuation HFA aerosol inhaler 2 puff inhalation BID 30 Days Qty: 10.2 2RF ipratropium-albuterol 0.5 mg-3 mg(2.5 mg base)/3 mL solution for nebulization 3 ml inhalation Q8H PRN (Reason: shortness of breath or wheezing) Qty: 90 2RF pantoprazole 40 mg tablet,delayed release (DR/EC) 40 mg PO BID Qty: 180 1RF hydralazine 100 mg tablet 100 mg PO TID Qty: 90 1RF Rx Instructions: MUST have follow-up with new provider for further refills carvedilol [Coreg] 25 mg tablet See Rx Instructions .ROUTE .COMPLEX Qty: 180 1RF Rx Instructions: 50 mg orally twice a day except on dialysis days (mon,wed,fri) takes 50mg at noon and bedtime acetaminophen 500 mg Tablet 1,000 mg PO Q4H PRN (Reason: Pain) aspirin 81 mg tablet,delayed release (DR/EC) 81 mg PO QAM diltiazem HCl 240 mg capsule,extended release 24hr 240 mg PO QAM citalopram 20 mg tablet 20 mg PO QAM trazodone 150 mg tablet 150 mg PO BEDTIME clonidine HCl 0.1 mg tablet 0.2 mg PO TID albuterol sulfate 90 mcg/actuation HFA aerosol inhaler 2 puff INHALATION Q4H PRN (Reason: Shortness Of Breath) prednisone 20 mg Tablet 40 mg PO DAILY Qty: 6 0RF doxycycline monohydrate 100 mg Tablet 100 mg PO BID Qty: 16 0RF atorvastatin 40 mg tablet 40 mg PO BEDTIME isosorbide mononitrate 120 mg tablet extended release 24 hr 120 mg PO QAM Discharge Orders: Discharge ED (Routine); Ordered 11/29/21 Ordered By: Edwin Hansen Referrals: Ricardo Stack MD [Primary Care Provider] - Activity Restrictions/Additional Instructions: Discharged from the ER proceed directly to dialysis for your routine dialysis. EKG and laboratory studies today were normal. Your blood pressure was elevated initially and improved you are given an extra dose of blood pressure medications. Coding Level of Care Code ED Research And Development Engineer for Chg Fwd Exam Detailed
[2021-11-29 06:57] LABS: Basophils % 0.2 %; Eosinophils # 0.1 10^3/uL (0.0-0.8); Eosinophils % 0.8 %; Hematocrit 28.8 % (42.0-52.0); Hemoglobin 9.1 g/dL (11.7-16.6); Lymphocytes # 0.7 10^3/uL (0.8-4.8); Lymphocytes % 7.3 %; Mean Corpuscular HGB Conc 31.6 g/dL (30.0-36.0); Mean Corpuscular Hemoglobin 31.9 pg (28.0-34.0); Mean Corpuscular Volume 101.1 fl (80-94); Mean Platelet Volume 8.5 fL (7.4-10.4); Monocytes # 1.4 10^3/uL (0.2-0.9); Monocytes % 14.6 %; Neutrophils # 7.04 10^3/uL (1.8-7.7); Neutrophils % 74.5 %; Nucleated Red Blood Cells % 0.2 %; Platelet Count 249 10^3/cmm (130-400); Red Blood Count 2.85 10^6/uL (4.1-5.3); Red Cell Distribution Width 13.1 % (12.1-15.1); White Blood Count 9.5 10^3/uL (4.0-10.0)
[2021-11-29 07:20] LABS: Alanine Aminotransferase 7 U/L (0-41); Albumin Level 3.4 g/dL (3.5-5.2); Alkaline Phosphatase 68 U/L (40-130); Anion Gap 19.8 (5-19); Aspartate Amino Transferase 8 U/L (0-40); Blood Urea Nitrogen 56 mg/dL (6-20); Calcium 9.7 mg/dL (8.5-10.5); Carbon Dioxide 28 mmol/L (22-29); Chloride 96 mmol/L (98-107); Globulin 2.8 g/dL (1.3-4.6); Glucose 93 mg/dL (65-115); Osmolality Calculated 303 mOsm/kg (285-295); Potassium 4.8 mmol/L (3.5-5.1); Sodium 139 mmol/L (136-145); Total Bilirubin 0.3 mg/dL (0.15-1.2); Total Protein 6.2 g/dL (6.6-8.7)
[2021-11-29 07:21] LABS: Troponin(5th) Baseline 81 ng/L (0-15)
[2021-11-29 07:41] VITALS: BP 182/93; PULSE 71; RESP 16; O2SAT 91
--- NOTE | 2021-11-29 08:44 | ECG_ITS ---
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 Measurements Intervals [place] Rate: 67 P: -10 IA: 164 QRS: 3 QRSD: 105 T: -1 QT: 431 QTc: 458 Interpretive Statements SINUS RHYTHM WITH SINUS ARRHYTHMIA ST DEVIATION AND MODERATE T-WAVE ABNORMALITY, CONSIDER LATERAL ISCHEMIA [-0.1+ mV T-WAVE IN I/aVL/V5/V6] Compared to ECG 11/29/2021 06:43:40 T-wave abnormality now present Possible ischemia now present Left-axis deviation no longer present Left ventricular hypertrophy no longer present ST (T wave) deviation no longer present Electronically Signed On 11-29-2021 15:55:04 CDT by Shanna Sosa M.D. [id number]
[2021-11-29 09:14] LABS: Troponin 5 2HR 73.08 ng/L (0-15)
[2021-11-29 09:17] LABS: Troponin 5 2HR Delta -7.92 ABS# (0-10)
[2021-11-29] MEDS: nitroglycerin 1 gm/inch oint Pkt 1 INCH TOPICAL (09:21)
--- NOTE | 2021-11-29 09:45 | ECG_ITS ---
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 Measurements Intervals [place] Rate: 75 P: 0 MD: 176 QRS: 0 QRSD: 108 T: 80 QT: 424 QTc: 475 Interpretive Statements SINUS RHYTHM WITH SINUS ARRHYTHMIA LEFT VENTRICULAR HYPERTROPHY AND ST-T CHANGE [VOLTAGE CRITERIA PLUS ST/T ABNORMALITY] Compared to ECG 11/29/2021 09:09:32 Left ventricular hypertrophy now present ST (T wave) deviation now present T-wave abnormality no longer present Possible ischemia no longer present Electronically Signed On 11-29-2021 15:40:24 CDT by Shanna Sosa M.D. [id number]
[2021-11-29 10:00] VITALS: BP 166/98; PULSE 71; RESP 17; O2SAT 99
--- NOTE | 2021-11-29 10:18 | DCPLANNER ---
vaccine manager was asked to arrange for transportation for patient to his dialysis appointment today at 11:20. vaccine manager received approval from Dr. Hansen for [facility] to pay for the trip. vaccine manager called [facility] was quoted 6.00 for ruth barahona was 8.00. [facility]cos will pick patient up and take to his dialysis appointment.
[2021-11-29] MEDS: hyDRALAzine 25 mg Tablet 100 MG PO (10:20)
--- NOTE | 2021-11-29 10:38 | PC.NURSE ---
Patient had taken his blood pressure medication this morning, ordered medication not given.
--- NOTE | 2021-11-29 12:44 | ECG_ITS ---
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 Measurements Intervals [place] Rate: 80 P: -3 DE: 177 QRS: -31 QRSD: 109 T: 95 QT: 414 QTc: 478 Interpretive Statements SINUS RHYTHM LEFT AXIS DEVIATION [QRS AXIS < -30] LEFT VENTRICULAR HYPERTROPHY AND ST-T CHANGE [VOLTAGE CRITERIA PLUS ST/T ABNORMALITY] Compared to ECG 11/25/2021 08:17:42 Left-axis deviation now present Left ventricular hypertrophy now present ST (T wave) deviation now present Sinus arrhythmia no longer present T-wave abnormality no longer present Possible ischemia no longer present Electronically Signed On 11-29-2021 15:54:23 CDT by Shanna Sosa M.D. [id number]
--- NOTE | 2021-11-29 13:57 | PM.CONSULT ---
Providers/Reason For Consult Consulting Physician/Specialty*: Henry Frazier MD, Hospitalist. Reason for Consult*: Chest pain. Requesting Physician: Dr. Hansen Primary Care Provider: Nish Stack MD History of Present Illness History of Present Illness Leopoldo Schaefer is a 46 year old male who presented to the emergency department from dialysis with complaints of chest pain. Patient reports to me he had some chest discomfort started last night. He reports it has been constant since then and and relating that to the staff at dialysis he was referred to the emergency department. He reports he has chest pain on occasion. He states he cannot really tell me what it feels like but if pressed for an answer he states it is sharp and then dull and then pressure. He reports his shortness of breath is chronic and about the same. He continues to smoke. He produces some sputum that is clear, but never bloody. When asked, he does report the chest discomfort hurts more when he moves around, and reports it hurts worse when I press on it. He has had multiple previous admissions for noncompliance with dialysis, marked hypertension. He has had an angiogram March 16, 2021, approximately 9 months ago, with no significant flow-limiting disease. He is currently on some doxycycline and prednisone for COPD exacerbation. Review of Systems General: Reports: 10 or more systems reviewed and unremarkable except in HPI and below Const: Reports: fatigue; Denies: fever(s) or chills Eyes: Denies: change in vision ENMT: Denies: throat pain Card: Reports: chest pain Resp: Reports: dyspnea GI: Denies: abdominal pain : Denies: flank pain Musc: Denies: back pain Skin/Breast: Denies: rash Neuro: Denies: headache(s) Psych: Denies: anxiety or depression Endo: Denies: polyuria Gene/Lymph: Denies: easy bruising All/Imm: Denies: urticaria Medications/Allergies Home Medications Medication Instructions Recorded Confirmed Last Taken Type vit B,C-folic ac 800 mcg-zinc 12.5 1 tab PO DAILY 06/09/19 11/29/21 11/29/21 History mg-selen-D3 2,000 unit-vit E tablet (RenaPlex-D) Home oxygen #1 ea 08/07/20 11/29/21 Unknown Rx sucroferric oxyhydroxide 500 mg See Rx Instructions .Route .COMPLEX 11/12/20 11/29/21 05/24/21 History chewable tablet (Velphoro) acetaminophen 500 mg tablet 1,000 mg PO Q4H PRN Pain 02/15/21 11/29/21 Unknown History aspirin 81 mg tablet,delayed 81 mg PO QAM 04/03/21 11/29/21 11/29/21 History release carvedilol 25 mg tablet (Coreg) See Rx Instructions .Route 05/27/21 11/29/21 11/29/21 Rx .COMPLEX #180 tabs terbinafine HCl 250 mg tablet 250 mg PO DAILY 90 days #30 tabs 07/16/21 11/29/21 11/16/21 Rx budesonide-formoterol HFA 160 2 puff inhalation BID 30 days 08/20/21 11/29/21 11/29/21 Rx mcg-4.5 mcg/actuation aerosol #10.2 grams inhaler (Symbicort) ipratropium 0.5 mg-albuterol 3 mg 3 ml inhalation Q8H PRN shortness 08/20/21 11/29/21 Unknown Rx (2.5 mg base)/3 mL nebulization of breath or wheezing #90 mL soln pantoprazole 40 mg tablet,delayed 40 mg PO BID #180 tabs 09/09/21 11/29/21 11/29/21 Rx release citalopram 20 mg tablet 20 mg PO QAM 10/14/21 11/29/21 11/29/21 History diltiazem HCl 240 mg 240 mg PO QAM 10/14/21 11/29/21 11/29/21 History capsule,extended release 24 hr trazodone 150 mg tablet 150 mg PO BEDTIME 10/14/21 11/29/21 11/28/21 History isosorbide mononitrate 120 mg 120 mg PO QAM 10/28/21 11/29/21 10/27/21 History tablet,extended release 24 hr hydralazine 100 mg tablet 100 mg PO TID #90 tabs 11/13/21 11/29/21 11/29/21 Rx albuterol sulfate 90 mcg/actuation 2 puff inhalation Q4H PRN 11/25/21 11/29/21 Unknown History aerosol inhaler Shortness Of Breath clonidine HCl 0.1 mg tablet 0.2 mg PO TID 11/25/21 11/29/21 11/29/21 History doxycycline monohydrate 100 mg 100 mg PO BID #16 tabs 11/27/21 11/29/21 11/29/21 Rx tablet prednisone 20 mg tablet 40 mg PO DAILY #6 tabs 11/27/21 11/29/21 11/29/21 Rx atorvastatin 40 mg tablet 40 mg PO BEDTIME 11/29/21 11/29/21 11/28/21 History Allergies Allergy/AdvReac Type Severity Reaction Status Date / Time lisinopril Allergy swelling Verified 11/29/21 07:50 Penicillins Allergy ALGY-Hives Verified 11/29/21 07:50 tramadol Allergy ALGY-Hives Verified 11/29/21 07:50 PFSH Acute PFSH: Medical History (Updated 11/29/21 @ 14:07 by Henry Frazier MD) Allergic dermatitis Anemia Anxiety and depression Atrial fibrillation/flutter Chest pain COPD (chronic obstructive pulmonary disease) Reports he is on 4 L of oxygen at home CRF (chronic renal failure) Dialysis patient Diastolic CHF Elevated troponin Encounter to establish care End stage chronic kidney disease ESRD (end stage renal disease) GERD (gastroesophageal reflux disease) Hypertension Hypertensive emergency Hypoxia Insomnia Lower respiratory tract infection Obstructive sleep apnea Paroxysmal atrial fibrillation with RVR Pleural effusion Resistant hypertension Sebaceous cyst Vitamin D deficiency Surgical History H/O circumcision H/O hand surgery right hand with hardware Presence of peritoneal dialysis catheter S/P dialysis catheter insertion (12/12/19) Removed on 04/04/2020 S/P hemodialysis catheter insertion Family History Other Adopted Denies family history of Anesthesia complication Bleeding disorder Social History Smoking and tobacco status: current every day smoker (1ppd X26 years) cigarettes [ Other cigarette details: On and off quitting and restarting] Alcohol intake: never Household members: significant other Marital status: Single Current occupational status: disabled History of recent travel: Yes Details: [place] Out of state: Yes Vitals/I&O/Wt Last Vital Signs Temp 98.2 F 11/29/21 06:39 Pulse 71 11/29/21 10:00 Resp 17 11/29/21 10:00 BP 166/98 11/29/21 10:00 Pulse Ox 99 11/29/21 10:00 O2 Del Method 11/29/21 10:00 O2 Flow Rate 2 11/29/21 10:00 Weight last 48 hrs Weight 92.986 kg Physical Exam Narrative: General exam is a white male, reporting he has chest discomfort, in no obvious distress HEENT: Pupils equally round. Oropharynx clear. Neck is supple no lymphadenopathy or thyromegaly Cardiovascular regular rate and rhythm without murmur. Chest pain is present on palpation. Left chest dialysis catheter noted Lungs occasional expiratory wheeze. No crackles. Abdomen is soft with positive bowel sounds. No obvious organomegaly Extremities no cyanosis clubbing or edema, refill brisk Skin no rash Neuro no obvious focal deficits Data : 11/29/21 06:50 11/29/21 06:50 Other Labs: Chest x-ray demonstrates diffuse infiltrates similar to that seen before likely consistent with pulmonary edema with a small right pleural effusion. EKG demonstrates sinus rhythm, LVH, flipped T waves 3, V5 and V6. Flipped T waves have been noted on previous EKGs at least back as far as 2019. They have been intermittent. Repeat EKG demonstrates the flipped T wave is changed to aVL, which I suspect was lead placement. Persistent flipped T/T wave flattening noted in V6. Note that these EKGs had lead placement rearranged on each one Troponin is 81 with repeat of 73. These numbers are consistent with his chronic elevation of troponin. A&P Assessment and plan (1) Chest pain: Troponin does not show any significant positive delta variance. Patient had angiogram 9 months ago without significant flow-limiting disease ST segment changes are likely related to lead placement. However, these can also be seen with LVH as the patient demonstrates. On exam the patient has pain to palpation, and his discomfort has been constant since last night which is not typical for unstable angina or non-ST elevation PA where increasing troponin is expected No further cardiac work-up is needed at this time Pulmonary embolism was considered, but thought unlikely as he does not have significant tachycardia, oxygen saturations are improved compared to last hospital stay when he was on 4 L of oxygen. Note that he is on 2 L in the ER with an O2 sat of 99%. He has not had any hemoptysis. At this point it appears he is safe for discharge home, use of Tylenol for what appears to be musculoskeletal discomfort, and presentation to dialysis clinic today so he does not get worsening pulmonary edema and fluid overload. Status: Acute (2) Pulmonary edema: Patient has noncompliance with renal diet, fluid intake, and dialysis itself. Encourage compliance with dialysis, and emergency department is arranging transport back to dialysis today. Status: Acute (3) COPD exacerbation: Finished prednisone and doxycycline course that he was recently prescribed Status: Acute (4) Non-compliance with renal dialysis: Encourage compliance with dialysis Status: Acute Plan Multiple other medical problems as outlined in his past medical history Allow natural Thank you for this consultation Consult Attestations Medical Necessity Statement: Not applicable Coding Level of Care Code Acute Pipe F[employer] for Shilpa Phillips Diagnoses Chest pain R07.9 Pulmonary edema J81.1 COPD exacerbation J44.1 Non-compliance with renal dialysis Z91.15
== END 2021-11-29 10:30 | disposition home or self-care (01) ==
PROVIDERS: Emergency Provider Family Medicine; PCP Radiology Diagnostic Radiology
DX: I13.2 Hypertensive heart and chronic kidney disease with heart failure and with stage 5 chronic kidney disease, or end stage renal disease (principal); N18.6 End stage renal disease; I50.30 Unspecified diastolic (congestive) heart failure; G47.30 Sleep apnea, unspecified; Z79.82 Long term (current) use of aspirin; F17.210 Nicotine dependence, cigarettes, uncomplicated; J44.9 Chronic obstructive pulmonary disease, unspecified
CPT/HCPCS: 36415; 71045; 80053; 84484; 85025; 93005; 99285

== ENCOUNTER 2021-12-16 10:55 | Emergency (ER) | payer MEDICARE, MEDICAID, SELFPAY ==
[2021-12-16 11:16] VITALS: BP 151/77; PULSE 69; RESP 18; TEMP 37; O2SAT 97
--- NOTE | 2021-12-16 11:29 | XRR_ITS ---
PROCEDURE INFORMATION: Exam: XR Chest Exam date and time: 12/16/2021 11:37 AM Age: 46 years old Clinical indication: Cough TECHNIQUE: Imaging protocol: Radiologic exam of the chest. Views: 1 view. COMPARISON: CR XR chest 1V portable [id number] 11/29/2021 7:01 AM FINDINGS: Tubes, catheters and devices: A dialysis catheter is present with the tip near the junction of the SVC and right atrium. Lungs: Mild right basilar atelectasis. Pleural spaces: Small right pleural effusion. No pneumothorax. Heart/Mediastinum: Unremarkable. No cardiomegaly. Bones/joints: Severe chronic degenerative changes in the left shoulder. XR/XR chest 1V portable [id number] IMPRESSION: Small right pleural effusion with mild right basilar atelectasis.
--- NOTE | 2021-12-16 11:31 | ED_ITS ---
HPI - General Adult General: Chief complaint: General Medical Stated complaint: LETHARGY/ AMS Time Seen by Provider: 12/16/21 11:24 History of Present Illness: 46-year-old male presents because he is tired reports he just did not sleep last night. Patient states he really does not have a reason why he is here. He does state that he has pneumonia and wants that checked out. Patient reports declines any labs. He has no other complaints and very limited in his HPI. Associated symptoms: Deny chest pain, headache(s), nausea, rash, palpitations or vomiting Review of Systems Const: Reports: fatigue and other (Please see HPI); Denies: fever(s) or chills Eyes: Denies: change in vision Card: Denies: chest pain or palpitations Resp: Reports: other (Please see HPI) GI: Denies: abdominal pain, nausea or vomiting Musc: Denies: neck pain or back pain Skin/Breast: Denies: rash or pruritus Neuro: Denies: headache(s) PFS ED PFSH: Medical History (Updated 12/16/21 @ 11:51 by Dustin Cook DO) Allergic dermatitis Anemia Anxiety and depression Atrial fibrillation/flutter Chest pain COPD (chronic obstructive pulmonary disease) Reports he is on 4 L of oxygen at home CRF (chronic renal failure) Dialysis patient Diastolic CHF Elevated troponin Encounter to establish care End stage chronic kidney disease ESRD (end stage renal disease) GERD (gastroesophageal reflux disease) Hypertension Hypertensive emergency Hypoxia Insomnia Lower respiratory tract infection Obstructive sleep apnea Paroxysmal atrial fibrillation with RVR Pleural effusion Resistant hypertension Sebaceous cyst Vitamin D deficiency Surgical History H/O circumcision H/O hand surgery right hand with hardware Presence of peritoneal dialysis catheter S/P dialysis catheter insertion (12/12/19) Removed on 04/04/2020 S/P hemodialysis catheter insertion Family History Other Adopted Denies family history of Anesthesia complication Bleeding disorder Social History Smoking and tobacco status: current every day smoker (1ppd X26 years) cigarettes [ Other cigarette details: On and off quitting and restarting] Alcohol intake: never Household members: significant other Marital status: Single Current occupational status: disabled History of recent travel: Yes Details: [place] Out of state: Yes Physical Exam Const: COMMON NORMALS: no acute distress, patient oriented x3 and no limitations GENERAL APPEARANCE: disheveled HENMT: COMMON NORMALS: normocephalic and hearing grossly normal bilaterally HEAD & SCALP: normocephalic Resp: EFFORT & INSPECTION: Yes able to speak in complete sentences AUSCULTATION: no wheezes Cardio: COMMON NORMALS: regular rate and regular rhythm RATE: regular rate RHYTHM: regular rhythm Extremity: COMMON NORMALS: full ROM Neuro: COMMON NORMALS: patient oriented x3 and no focal motor deficits Psych: COMMON NORMALS: mental status grossly normal Course Vital Signs: Vital signs: Vital Signs Temperature 98.6 F 12/16/21 11:16 Pulse Rate 69 12/16/21 11:16 Respiratory Rate 18 12/16/21 11:16 Blood Pressure 151/77 12/16/21 11:16 Pulse Oximetry 97 12/16/21 11:16 Oxygen Delivery Me thod 12/16/21 11:16 MDM - General Adult Medical Decision Making EMS reports that they believe patient came in just because he went to get away from dialysis center because the ride company would but not provide him a ride home because he was tired. Patient's x-ray shows no significant findings. Patient stable and discharged home Discharge Plan Discharge Patient Disposition: Home Clinical Impression: Difficulty sleeping Condition: Stable Prescriptions: No Action Velphoro 500 mg tablet,chewable See Rx Instructions .ROUTE .COMPLEX Rx Instructions: 3 tabs po with meals and 2-3 tabs po with snacks terbinafine HCl 250 mg tablet 250 mg PO DAILY 90 Days Qty: 30 2RF RenaPlex-D 800 mcg-12.5 mg -2,000 unit tablet 1 tab PO DAILY (DME) Home oxygen See Rx Instructions .Route .MEDSUPPLY Qty: 1 0RF Rx Instructions: As directed budesonide-formoterol [Symbicort] 160-4.5 mcg/actuation HFA aerosol inhaler 2 puff inhalation BID 30 Days Qty: 10.2 2RF ipratropium-albuterol 0.5 mg-3 mg(2.5 mg base)/3 mL solution for nebulization 3 ml inhalation Q8H PRN (Reason: shortness of breath or wheezing) Qty: 90 2RF pantoprazole 40 mg tablet,delayed release (DR/EC) 40 mg PO BID Qty: 180 1RF hydralazine 100 mg tablet 100 mg PO TID Qty: 90 1RF Rx Instructions: MUST have follow-up with new provider for further refills carvedilol [Coreg] 25 mg tablet See Rx Instructions .ROUTE .COMPLEX Qty: 180 1RF Rx Instructions: 50 mg orally twice a day except on dialysis days (mon,wed,fri) takes 50mg at noon and bedtime acetaminophen 500 mg Tablet 1,000 mg PO Q4H PRN (Reason: Pain) aspirin 81 mg tablet,delayed release (DR/EC) 81 mg PO QAM diltiazem HCl 240 mg capsule,extended release 24hr 240 mg PO QAM citalopram 20 mg tablet 20 mg PO QAM trazodone 150 mg tablet 150 mg PO BEDTIME clonidine HCl 0.1 mg tablet 0.2 mg PO TID albuterol sulfate 90 mcg/actuation HFA aerosol inhaler 2 puff INHALATION Q4H PRN (Reason: Shortness Of Breath) prednisone 20 mg Tablet 40 mg PO DAILY Qty: 6 0RF doxycycline monohydrate 100 mg Tablet 100 mg PO BID Qty: 16 0RF atorvastatin 40 mg tablet 40 mg PO BEDTIME isosorbide mononitrate 120 mg tablet extended release 24 hr 120 mg PO QAM Discharge Orders: Discharge ED (Routine); Ordered 12/16/21 Ordered By: Dustin Cook Referrals: Ricardo Stack MD [Primary Care Provider] - Discharge Diet: Usual diet Discharge Activity: Increase activity as tolerated Patient Instructions: Opioid Safety, Pain Management, Sleep Activity Restrictions/Additional Instructions: Keep your already scheduled appointment today with your primary care provider. Coding Level of Care Code ED Target Aircraft Controller for Chg Fwd Exam Detailed
== END 2021-12-16 12:01 | disposition home or self-care (01) ==
PROVIDERS: Emergency Provider Student in an Organized Health Care Education/Training Program; PCP Radiology Diagnostic Radiology
DX: G47.9 Sleep disorder, unspecified (principal); Z79.82 Long term (current) use of aspirin; F17.210 Nicotine dependence, cigarettes, uncomplicated; J44.9 Chronic obstructive pulmonary disease, unspecified; Z99.81 Dependence on supplemental oxygen; I13.2 Hypertensive heart and chronic kidney disease with heart failure and with stage 5 chronic kidney disease, or end stage renal disease; N18.6 End stage renal disease; I50.9 Heart failure, unspecified
CPT/HCPCS: 71045; 99283

== ENCOUNTER 2023-09-14 03:45 | Inpatient (IN) | payer MEDICARE, SELFPAY ==
[2023-09-14] VITALS (244 sets, daily range): BP systolic 106–198; BP diastolic 58–155; PULSE 76–146; RESP 12–45; TEMP 36.5–37.3; O2SAT 77–100; BMI 26.0
[2023-09-14 04:18] LABS: Glucose Point of Care 77 mg/dL (70-110)
[2023-09-14] MEDS: dextrose 10% 250 ML 1000 ML IV (04:48)
[2023-09-14] MEDS: glucagon 1 mg/mL KIT 1 mL IM (04:52)
[2023-09-14] MEDS: metoprolol tartrate 1 mg/1 mL SDV 5 mL 5 MG IVP (05:06)
[2023-09-14] MEDS: FUROsemide 10 mg/mL SDV 4mL 40 MG IVP (05:06)
[2023-09-14] MEDS: dextrose 10% 1,000 ML 50 ML (05:12)
--- NOTE | 2023-09-14 05:19 | P.HP_ITS ---
Providers/Chief Complaint Admitting Physician: Annie Sun MD Primary Care Provider: Ricardo Stack MD Chief Complaint: CP Renal Failure, Dialysis History of Present Illness Leopoldo Schaefer is a 48 year old male with a past medical history of CKD, on dialysis Thursday, history of atrial fibrillation, who presented to [facility] with chief complaints of chest pain. EKG did not show any acute ST-T wave changes changes, however he was found to be in A-fib with RVR with heart rate of 140. Troponins were negative. Chest x-ray showed pulmonary vascular congestion. He received diltiazem 10 mg IV. He was also noted to be hyperkalemic with a potassium of 7 upon arrival. He received insulin and calcium gluconate. Subsequent potassium checked prior to his transfer here was at 5.8. He was transferred here due to lack of nephrology services at [facility], patient needing dialysis. He developed hypoglycemia, with sugar in the 40s for which she received 50% dextrose at the outside hospital. En route from [facility], he developed hypoglycemia during transport, he received 10% dextrose. Upon arrival patient was alert awake oriented able to answer all questions appropriately for nursing staff. He was able to use the bathroom. He was speaking in full sentences. Shortly afterwards he became lethargic, more somnolent. Blood sugar at the time was 70. He has since received glucagon 1 mg IM, 10% dextrose bolus and has been started on 10% dextrose at 50 cc an hour. 30 minutes later he is slightly more awake, able to answer basic questions like name age whereabouts current date. He has no focal motor deficits on exam. He is provide prefers to sleep at this time. He was hypertensive with blood pressure up to 190 systolic, noted to be in A-fib with RVR with a heart rate between 120 to 140 bpm. I do not see any anticoagulation listed on his list of home medications. Review of Systems General: Reports: ROS unobtainable due to medical condition Medications/Allergies Home Medications Medication Instructions Recorded Confirmed Last Taken Type vit B,C-folic ac 800 mcg-zinc 12.5 1 tab PO DAILY 06/09/19 08/05/22 11/29/21 History mg-selen-D3 2,000 unit-vit E tablet (RenaPlex-D) Home oxygen #1 ea 08/07/20 08/05/22 Unknown Rx sucroferric oxyhydroxide 500 mg See Rx Instructions .Route .COMPLEX 11/12/20 08/05/22 05/24/21 History chewable tablet (Velphoro) acetaminophen 500 mg tablet 1,000 mg PO Q4H PRN Pain 02/15/21 08/05/22 Unknown History aspirin 81 mg tablet,delayed 81 mg PO QAM 04/03/21 08/05/22 11/29/21 History release terbinafine HCl 250 mg tablet 250 mg PO DAILY 90 days #30 tabs 07/16/21 08/05/22 11/16/21 Rx ipratropium 0.5 mg-albuterol 3 mg 3 ml inhalation Q8H PRN shortness 08/20/21 08/05/22 Unknown Rx (2.5 mg base)/3 mL nebulization of breath or wheezing #90 mL soln diltiazem HCl 240 mg 240 mg PO QAM 10/14/21 08/05/22 11/29/21 History capsule,extended release 24 hr ondansetron 4 mg disintegrating 4 mg PO Q8H PRN nausea and 04/16/22 08/05/22 Unknown Rx tablet vomiting #30 tabs atorvastatin 40 mg tablet 40 mg PO BEDTIME #30 tabs 05/16/22 08/05/22 Unknown Rx budesonide-formoterol HFA 160 2 puff inhalation BID 30 days 05/16/22 08/05/22 Unknown Rx mcg-4.5 mcg/actuation aerosol #10.2 grams inhaler (Symbicort) carvedilol 25 mg tablet (Coreg) See Rx Instructions .Route 05/16/22 08/05/22 Unknown Rx .COMPLEX #180 tabs clonidine HCl 0.1 mg tablet 0.2 mg (2 x 0.1 mg) PO TID #90 tabs 05/16/22 08/05/22 Unknown Rx furosemide 40 mg tablet 40 mg PO BID #60 tabs 05/16/22 08/05/22 Unknown Rx hydralazine 100 mg tablet 100 mg PO TID #90 tabs 05/16/22 08/05/22 Unknown Rx isosorbide mononitrate 120 mg 120 mg PO QAM #30 tabs 05/16/22 08/05/22 Unknown Rx tablet,extended release 24 hr pantoprazole 40 mg tablet,delayed 40 mg PO BID #180 tabs 05/16/22 08/05/22 Unknown Rx release albuterol sulfate 90 mcg/actuation 2 puff inhalation Q4H PRN 06/16/22 08/05/22 Unknown Rx aerosol inhaler Shortness Of Breath #6.7 grams doxycycline hyclate 100 mg capsule 100 mg PO BID 7 days #14 caps 08/05/22 08/05/22 Unknown Rx citalopram 20 mg tablet 20 mg PO QAM #30 tabs 09/08/22 Unknown Rx trazodone 150 mg tablet 150 mg PO BEDTIME #90 tabs 09/08/22 Unknown Rx Allergies Allergy/AdvReac Type Severity Reaction Status Date / Time lisinopril Allergy swelling Verified 08/05/22 15:12 Penicillins Allergy ALGY-Hives Verified 08/05/22 15:12 tramadol Allergy ALGY-Hives Verified 08/05/22 15:12 PFSH Acute PFSH: Medical History Obstructive sleep apnea Allergic dermatitis ESRD (end stage renal disease) Pleural effusion Dialysis patient Hypertensive emergency Atrial fibrillation/flutter Chest pain Elevated troponin Resistant hypertension Paroxysmal atrial fibrillation with RVR End stage chronic kidney disease Anemia Diastolic CHF Sebaceous cyst GERD (gastroesophageal reflux disease) Insomnia COPD (chronic obstructive pulmonary disease) Reports he is on 4 L of oxygen at home Hypoxia Anxiety and depression Lower respiratory tract infection Encounter to establish care Vitamin D deficiency Hypertension CRF (chronic renal failure) Surgical History S/P hemodialysis catheter insertion H/O hand surgery right hand with hardware H/O circumcision Presence of peritoneal dialysis catheter S/P dialysis catheter insertion (12/12/19) Removed on 04/04/2020 Family History Other Adopted Denies family history of Anesthesia complication Bleeding disorder Social History Smoking and tobacco/nicotine status: current every day tobacco/nicotine user (1ppd X26 years) cigarettes [ Other cigarette details: On and off quitting and restarting] Alcohol intake: never Substance/Drug Use: never Household members: significant other Marital status: Single Current occupational status: disabled Vitals/I&O/Wt Last Vital Signs O2 Del Method Nasal Cannula 09/14/23 04:16 09/13/23 09/13/23 09/14/23 14:59 22:59 06:59 Intake Total 250 / 250 Balance 250 / 250 Weight last 48 hrs Weight 82.418 kg Physical Exam Narrative: General: No acute distress, somnolent HEENT: PERRLA, pupils bilaterally equal and reactive, pallors not present Chest: Normal vesicular breath sounds, no added sounds, equal good air entry bilaterally CVS: S1-S2 regular, no murmurs, no tachycardia, no gallops, no rubs Abdomen: Soft, nontender, no organomegaly, bowel sounds present Neuro: No focal deficits, no facial deformity, AO x3, somonlent likely related to hypoglycemia Data Other Labs: From outside hospital. Hemoglobin 10.9, platelet 377, wbc 12.1 INR 1.2 Magnesium 1.9 BUN 60, creatinine 12 sodium 139 potassium 7 bicarb 25 T. bili 0.7, AST 20, ALT 10, alk phos 111 Troponin 0.04 Chest x-ray cardiomegaly with interstitial edema and small bilateral pleural effusions BNP 55,000 A&P Assessment and plan (1) End stage renal disease: End-stage renal disease on dialysis Thursday Reports having had last dialysis on Thursday Currently showing signs of fluid overload, hyperkalemia. Will need dialysis today. Nephrology consulted. (2) Pulmonary edema: Pulmonary edema, volume overload likely as a result of known CKD Hemodialysis ordered. Patient typically also takes Lasix at home, states he still makes some urine. Lasix 40 mg IV now. (3) Atrial fibrillation with RVR: Known past history of A-fib with RVR Currently heart rate ranging between 1 20-1 40, systolic blood pressure between 1 60-1 90. Metoprolol 5 mg IV x 1 now. Previously received diltiazem 10 mg IV at outside hospital. After metoprolol his heart rate is now between 90-100. Resume home dose of carvedilol, currently would use as 60 mg every 6 hours instead of sustained-release version while he is inpatient. I am uncertain as to why patient is not on anticoagulation long-term. Will need to verify his home medications once he is more awake. (4) Hyperkalemia: Potassium initially on arrival at [facility] was at 7. He received insulin dextrose following which last potassium was at 5.8 prior to transfer. Check stat CMP now. (5) Hypoglycemia: Hypoglycemia, likely from having received insulin earlier. Patient is not a known diabetic. He has received 50% dextrose bolus at outside hospital. Additionally received 10% dextrose while being transferred via EMS. Initially alert awake oriented upon arrival thereafter became more somnolent and blood sugar was in the 70s. Suspect increased somnolence related to his hypoglycemia. Glucagon 1 mg IM now 10% dextrose bolus as we do not have 50% or 25% on formulary. Start D10 infusion at 50 cc an hour Reassess mental status with improvement in hypoglycemia. Currently no focal deficits on neuroexam. (6) Uncontrolled hypertension: Continue home dose, hydralazine 100 mg p.o. 3 times daily Home medication list needs to be verified following which clonidine and Imdur can be resumed based on blood pressure response. Plan DVT prophylaxis: Heparin 5000 subcutaneous every 12 hours Full code Attestations Medical Necessity Statement*: > 2 midnight admission is anticipated , needs dialysis, control of blood sugar. electrolytes, Control BP , HR Diagnoses End stage renal disease N18.6 Pulmonary edema J81.1 Atrial fibrillation with RVR I48.91 Hyperkalemia E87.5 Hypoglycemia E16.2 Uncontrolled hypertension I10
--- NOTE | 2023-09-14 05:47 | ECG_ITS ---
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 Measurements Intervals [place] Rate: 113 P: 0 KS: 0 QRS: 45 QRSD: 90 T: 7 QT: 333 QTc: 457 Interpretive Statements ATRIAL FIBRILLATION WITH RAPID VENTRICULAR RESPONSE WITH ABERRANT CONDUCTION OR VENTRICULAR PREMATURE COMPLEXES Compared to ECG 11/29/2021 09:45:43 Ventricular premature complex(es) now present Aberrant conduction of supraventricular beat(s) now present Sinus rhythm no longer present Sinus arrhythmia no longer present Left ventricular hypertrophy no longer present ST (T wave) deviation no longer present Electronically Signed On 09-14-2023 8:31:[address] Lloyd M.D. [id number]
[2023-09-14] MEDS: hyDRALAzine 20 mg/mL INJ 1 mL 10 MG IVP (05:54)
[2023-09-14 06:12] LABS: Basophils # 0.1 10^3/uL (0.0-0.1); Basophils % 0.7 %; Eosinophils # 0.4 10^3/uL (0.0-0.8); Eosinophils % 2.9 %; Hematocrit 32.4 % (37-53); Lymphocytes # 0.9 10^3/uL (0.8-4.8); Lymphocytes % 7.5 %; Mean Corpuscular HGB Conc 31.2 g/dL (30-55); Mean Corpuscular Hemoglobin 31.5 pg (27-33); Mean Corpuscular Volume 100.9 fl (82-101); Mean Platelet Volume 9.1 fL (7.4-10.4); Monocytes # 0.9 10^3/uL (0.2-0.9); Monocytes % 7.6 %; Neutrophils # 9.93 10^3/uL (1.8-7.7); Neutrophils % 80.9 %; Nucleated Red Blood Cells % 0 %; Platelet Count 305 10^3/cmm (157-399); Red Blood Count 3.21 10^6/uL (3.85-5.65); Red Cell Distribution Width 15.8 % (12.1-15.1); White Blood Count 12.28 10^3/uL (3.29-11.43)
[2023-09-14 06:25] LABS: ABG PCO2 36.7 mmHg (35-45); ABG PH Result 7.41 (7.35-7.45); Base Excess ABG -1.1 mmol/L (-2.0-2.0); Blood Gas Allen Test Pos; Blood Gas Sample Site Radial, right; Blood Gas Sample Type Arterial; HCO3 ABG 23.3 mmol/L (22-26); Oxygen Device NC; PO2 ABG 74.1 mmHg (80.0-100.0)
[2023-09-14 06:44] LABS: Hepatitis B Surface Antigen Non-Reactive (Nonreactive)
[2023-09-14 06:48] LABS: Hepatitis B Surface AB 18.5 (11.5-1000)
[2023-09-14 06:58] LABS: Alanine Aminotransferase 6 U/L (0-41); Albumin Level 3.4 g/dL (3.5-5.2); Alkaline Phosphatase 122 U/L (40-130); Aspartate Amino Transferase 7 U/L (0-40); Blood Urea Nitrogen 58 mg/dL (6-20); Calcium 8.5 mg/dL (8.5-10.5); Carbon Dioxide 24 mmol/L (22-29); Chloride 96 mmol/L (98-107); Creatinine Clr Calc Pharmacy 7.9833; Globulin 3.3 g/dL (1.3-4.6); Glomerular Filtration Rate 4.5 mL/min (90-130); Glucose 134 mg/dL (65-115); Magnesium 1.9 mg/dL (1.7-2.3); Osmolality Calculated 308 mOsm/kg (285-295); Sodium 140 mmol/L (136-145); Total Bilirubin 0.4 mg/dL (0.15-1.2); Total Protein 6.7 g/dL (6.6-8.7)
[2023-09-14 07:02] LABS: Troponin T (5th) Once 101 ng/L (0-15)
--- NOTE | 2023-09-14 07:10 | P.CONIM_ITS ---
Providers/Reason For Consult 2 Consulting Physician/Specialty*: kommanA/nEPHROLOGY Reason for Consult*: ESRD Attending Physician: Annie Sun MD Primary Care Provider: Ras Joy History of Present Illness History of Present Illness Leopoldo Schaefer is a 48 year old male Review of Systems 2 Narrative: Other ROS negative Medications/Allergies Home Medications Medication Instructions Recorded Confirmed Last Taken Type vit B,C-folic ac 800 mcg-zinc 12.5 1 tab PO DAILY 06/09/19 08/05/22 11/29/21 History mg-selen-D3 2,000 unit-vit E tablet (RenaPlex-D) Home oxygen #1 ea 08/07/20 08/05/22 Unknown Rx sucroferric oxyhydroxide 500 mg See Rx Instructions .Route .COMPLEX 11/12/20 08/05/22 05/24/21 History chewable tablet (Velphoro) acetaminophen 500 mg tablet 1,000 mg PO Q4H PRN Pain 02/15/21 08/05/22 Unknown History aspirin 81 mg tablet,delayed 81 mg PO QAM 04/03/21 08/05/22 11/29/21 History release terbinafine HCl 250 mg tablet 250 mg PO DAILY 90 days #30 tabs 07/16/21 08/05/22 11/16/21 Rx ipratropium 0.5 mg-albuterol 3 mg 3 ml inhalation Q8H PRN shortness 08/20/21 08/05/22 Unknown Rx (2.5 mg base)/3 mL nebulization of breath or wheezing #90 mL soln diltiazem HCl 240 mg 240 mg PO QAM 10/14/21 08/05/22 11/29/21 History capsule,extended release 24 hr ondansetron 4 mg disintegrating 4 mg PO Q8H PRN nausea and 04/16/22 08/05/22 Unknown Rx tablet vomiting #30 tabs atorvastatin 40 mg tablet 40 mg PO BEDTIME #30 tabs 05/16/22 08/05/22 Unknown Rx budesonide-formoterol HFA 160 2 puff inhalation BID 30 days 05/16/22 08/05/22 Unknown Rx mcg-4.5 mcg/actuation aerosol #10.2 grams inhaler (Symbicort) carvedilol 25 mg tablet (Coreg) See Rx Instructions .Route 05/16/22 08/05/22 Unknown Rx .COMPLEX #180 tabs clonidine HCl 0.1 mg tablet 0.2 mg (2 x 0.1 mg) PO TID #90 tabs 05/16/22 08/05/22 Unknown Rx furosemide 40 mg tablet 40 mg PO BID #60 tabs 05/16/22 08/05/22 Unknown Rx hydralazine 100 mg tablet 100 mg PO TID #90 tabs 05/16/22 08/05/22 Unknown Rx isosorbide mononitrate 120 mg 120 mg PO QAM #30 tabs 05/16/22 08/05/22 Unknown Rx tablet,extended release 24 hr pantoprazole 40 mg tablet,delayed 40 mg PO BID #180 tabs 05/16/22 08/05/22 Unknown Rx release albuterol sulfate 90 mcg/actuation 2 puff inhalation Q4H PRN 06/16/22 08/05/22 Unknown Rx aerosol inhaler Shortness Of Breath #6.7 grams doxycycline hyclate 100 mg capsule 100 mg PO BID 7 days #14 caps 08/05/22 08/05/22 Unknown Rx citalopram 20 mg tablet 20 mg PO QAM #30 tabs 09/08/22 Unknown Rx trazodone 150 mg tablet 150 mg PO BEDTIME #90 tabs 09/08/22 Unknown Rx Allergies Allergy/AdvReac Type Severity Reaction Status Date / Time lisinopril Allergy swelling Verified 08/05/22 15:12 Penicillins Allergy ALGY-Hives Verified 08/05/22 15:12 tramadol Allergy ALGY-Hives Verified 08/05/22 15:12 Current Medications Generic Name Dose Route Start Last Admin Trade Name Freq PRN Reason Stop Dose Admin Hydralazine HCl 10 mg 09/14/23 05:01 09/14/23 05:54 Hydralazine 20 Mg/Ml Inj 1 Ml IVP 10 mg Q4H PRN Administration SBP > 160 Dextrose 250 mls @ 1,000 mls/hr 09/14/23 04:39 09/14/23 05:17 D10w IV Infused PRN PRN Infusion HYPOGLYCEMIA Metoprolol Tartrate 5 mg 09/14/23 04:51 09/14/23 05:06 Metoprolol Tartrate 1 Mg/1 Ml Sdv 5 Ml IVP 5 mg Q6H PRN Administration HR > 130 PFSH Acute 2 PFSH: Medical History Obstructive sleep apnea Allergic dermatitis ESRD (end stage renal disease) Pleural effusion Dialysis patient Hypertensive emergency Atrial fibrillation/flutter Chest pain Elevated troponin Resistant hypertension Paroxysmal atrial fibrillation with RVR End stage chronic kidney disease Anemia Diastolic CHF Sebaceous cyst GERD (gastroesophageal reflux disease) Insomnia COPD (chronic obstructive pulmonary disease) Reports he is on 4 L of oxygen at home Hypoxia Anxiety and depression Lower respiratory tract infection Encounter to establish care Vitamin D deficiency Hypertension CRF (chronic renal failure) Surgical History S/P hemodialysis catheter insertion H/O hand surgery right hand with hardware H/O circumcision Presence of peritoneal dialysis catheter S/P dialysis catheter insertion (12/12/19) Removed on 04/04/2020 Family History Other Adopted Denies family history of Anesthesia complication Bleeding disorder Social History Smoking and tobacco/nicotine status: current every day tobacco/nicotine user (1ppd X26 years) cigarettes [ Other cigarette details: On and off quitting and restarting] Alcohol intake: never Substance/Drug Use: never Household members: significant other Marital status: Single Current occupational status: disabled Vitals/I&O/Wt Last Vital Signs Temp 99.1 F 09/14/23 04:05 Pulse 115 H 09/14/23 06:30 Resp 24 H 09/14/23 06:30 BP 155/89 09/14/23 06:30 Pulse Ox 97 09/14/23 06:30 O2 Del Method Nasal Cannula 09/14/23 04:16 09/13/23 09/14/23 09/14/23 22:59 06:59 14:59 Intake Total 250 / 250 Balance 250 / 250 Weight last 48 hrs Weight 82.1 kg Weight 82.1 kg Weight 82.418 kg Physical Exam 2 Narrative: Patient is awake alert no distress crackles bilaterally per report Irregular rate and rhythm Has pedal edema Data 09/14/23 05:40 09/14/23 05:40 A&P Assessment and plan (1) End stage renal disease: 1. End-stage renal disease: On MWF schedule as outpatient, now presented with hyperkalemia and pulmonary edema. Plan for HD today, ultrafiltration as tolerated 2. Hyperkalemia: Low potassium diet and HD as above 3. Volume overload/pulmonary edema: Low sodiumdiet , Fluid restriction - 1500 ml/day ,HD as above 4. Rapid A fib 5. Anemia Patient evaluated Consult Attestations 2 Medical Necessity Statement: per leo Coding Level of Care Code Acute Code for Chg Fwd Diagnoses End stage renal disease N18.6
--- NOTE | 2023-09-14 07:11 | ECG_ITS ---
[facility] Test Date: 2023-09-14 Pat Name: Leopoldo Schaefer Department: Room: ICU07 Gender: Male Acid Mixer: : 1975 Requested By: Annie Sun Order Number: [id number] Roderick MD: Lane Lloyd M.D. Measurements Intervals [place] Rate: 125 P: 0 DE: 0 QRS: 85 QRSD: 93 T: -37 QT: 307 QTc: 444 Interpretive Statements ATRIAL FIBRILLATION WITH RAPID VENTRICULAR RESPONSE WITH ABERRANT CONDUCTION OR VENTRICULAR PREMATURE COMPLEXES ST DEVIATION AND MODERATE T-WAVE ABNORMALITY, CONSIDER INFERIOR ISCHEMIA [-0.1+ mV T-WAVE IN II/aVF] Compared to ECG 09/14/2023 06:17:19 T-wave abnormality now present Possible ischemia now present Electronically Signed On 09-14-2023 8:26:[address] Lloyd M.D. [id number]
[2023-09-14] MEDS: ipratropium-albuterol 3 mL Neb INHALATION ×3 (07:55→20:11)
[2023-09-14] MEDS: dilTIAZem 60 mg Tablet PO ×3 (08:21→17:19)
[2023-09-14] MEDS: pantoprazole DR 40 mg Tablet PO ×2 (08:21→17:09)
[2023-09-14] MEDS: hyDRALAzine 50 mg Tablet 100 MG PO ×2 (08:21→17:09)
[2023-09-14] MEDS: heparin 5,000 unit/mL INJ 1 mL 5000 UNIT SUBCUT ×2 (08:21→17:09)
[2023-09-14] MEDS: aspirin 81 mg EC Tablet PO (08:21)
[2023-09-14 08:44] LABS: Glucose Point of Care 73 mg/dL (70-110)
--- NOTE | 2023-09-14 09:21 | USCV_ITS ---
Leopoldo Schaefer Age: 48 Gender: M : 1975 Exam Date: 09/14/2023 19:09 Ordering Phys: Paulino Benavidez MD Technologist: ANDREW [place]am [place] [facility] [place] Indication: UA, no history available, other than nurse states he has coded twice recently. BP: 135 / 96 HR: 77 Rhythm: Atrial fibrillation Technical Quality: Adequate MEASUREMENTS (Male / Female) Normal Values 2D ECHO LV Diastolic Diameter PLAX 3.8 cm 4.2 - 5.9 / 3.9 - 5.3 cm IVS Diastolic Thickness 2.4 cm 0.6 - 1.0 / 0.6 - 0.9 cm IVS Systolic Thickness 2.4 cm LVPW Diastolic Thickness 2.0 cm 0.6 - 1.0 / 0.6 - 0.9 cm LVPW Systolic Thickness 2.4 cm LVOT Diameter 2.3 cm LV Ejection Fraction 2D Teich 59.9 % LV Ejection Fraction MOD 2C 76.6 % LV Ejection Fraction 2C AL 59.0 % LA Diameter 5.6 cm Aorta at Sinotubular Diameter 2.1 cm IVC Diameter 2.3 cm M-MODE LA Ao Ratio MM 1.5 AV Cusp Separation MM 2.2 cm DOPPLER AV Peak Velocity 121.0 cm/s LVOT Peak Velocity 94.0 cm/s AV Area Cont Eq vti 3.2 cm squared AV Area Cont Eq pk 3.2 cm squared MV Peak Velocity 161.0 cm/s MV Area PHT 3.1 cm squared Mitral E to A Ratio 304.3 TV Peak Velocity 314.0 cm/s TR Peak Velocity 319.0 cm/s TR Peak Gradient 40.7 mmHg TV Peak E Velocity 46.0 cm/s Right Atrial Pressure 10.0 mmHg Pulmonary Artery Systolic Pressu 50.7 mmHg PV Peak Velocity 88.0 cm/s FINDINGS Left Ventricle Normal left ventricular size, systolic function . Left ventricular ejection fraction is estimated at 60 %. Moderate wall thickness, no regional wall motion abnormalities..Grade I/IV diastolic dysfunction (abnormal relaxation filling pattern), normal to mildly elevated filling pressures. Right Ventricle The right ventricle is normal in size and function. Right Atrium The right atrium is normal in size. Left Atrium The left atrium is normal in size. Mitral Valve Severe mitral annular calcification. Moderately thickened mitral valve. Aortic Valve Structurally normal aortic valve without significant sclerosis or stenosis. There is mild aortic regurgitation. Tricuspid Valve Structurally normal tricuspid valve without significant stenosis, Moderate regurgitation. Pulmonary artery systolic pressure is normal. Pulmonic Valve Structurally normal pulmonic valve without significant stenosis. There is no pulmonic regurgitation. Pericardium Normal pericardium without effusion. Aorta Normal ascending aorta dimension. IVC The inferior vena cava appears normal. CONCLUSIONS 1-Normal left ventricular size, systolic function . Left ventricular ejection fraction is estimated at 60 %. Moderate wall thickness, no regional wall motion abnormalities..Grade I/IV diastolic dysfunction (abnormal relaxation filling pattern), normal to mildly elevated filling pressures. 2-Severe mitral annular calcification. Moderately thickened mitral valve. 3-Structurally normal tricuspid valve without significant stenosis, Moderate regurgitation. Pulmonary artery systolic pressure is normal. 4-There is no pericardial effusion. 5-Right atrial pressure is around 5 mm of mercury. Paulino Amos MD (Electronically Signed) Final Date: 15 September 2023 19:59 S
[2023-09-14 09:25] LABS: Glucose Point of Care 116 mg/dL (70-110)
--- NOTE | 2023-09-14 09:50 | ECG_ITS ---
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 Measurements Intervals [place] Rate: 119 P: 0 SD: 0 QRS: 48 QRSD: 95 T: -45 QT: 320 QTc: 451 Interpretive Statements ATRIAL FIBRILLATION WITH RAPID VENTRICULAR RESPONSE WITH ABERRANT CONDUCTION OR VENTRICULAR PREMATURE COMPLEXES NONSPECIFIC ST & T-WAVE ABNORMALITY Compared to ECG 09/14/2023 08:03:59 Possible ischemia no longer present T-wave abnormality still present Electronically Signed On 09-14-2023 10:02:[address] Lloyd M.D. [id number]
[2023-09-14 11:20] LABS: Glucose Point of Care 72 mg/dL (70-110)
[2023-09-14 11:20] LABS: Glucose Point of Care 123 mg/dL (70-110)
[2023-09-14 11:20] LABS: Glucose Point of Care 187 mg/dL (70-110)
[2023-09-14 14:01] LABS: Troponin 5 6HR Delta 7 ng/L (0-12)
--- NOTE | 2023-09-14 14:24 | PM.MISC ---
Miscellaneous Note Note: Patient is drowsy however very difficult to communicate with Stating that he uses 2 to 3 L of oxygen 20/10 He also smokes 1 pack/day Stating that he takes Eliquis 2.5 mg twice daily And is stating that he has chest pain which gets worse on deep breathing As per the nursing staff since cardiac arrest patient has been experiencing chest pain, Signs of fluid overload present Due for dialysis Blood pressure and hyperkalemia has improved Demand ischemia versus non-STEMI requested echo
[2023-09-14] MEDS: apixaban 5 mg Tablet 2.5 MG PO (17:08)
[2023-09-14] MEDS: acetaminophen 325 mg Tablet 650 MG PO (17:08)
[2023-09-14] MEDS: carvedilol 6.25 mg Tablet PO (17:09)
[2023-09-14] MEDS: heparin, porcine 1,000 unit/mL INJ 10 mL 10000 UNIT INTRACATH (17:44)
[2023-09-14] MEDS: heparin, porcine 1,000 unit/mL INJ 10 mL 1000 UNIT IV (17:45)
--- NOTE | 2023-09-14 17:56 | PC.HD ---
Dialysis cath cuff is exposed at the skin and sutures no longer in place. Pt came into the hospital with a bandaid covering it and states he does not like dressings. Tried to explain the risk of unsecured cath without dressing to help stabilize, pt not receptive but allowed dressing to be placed here. Dr Fischer and pt's RN ntfd.
[2023-09-14] MEDS: trazodone 150 mg Tablet PO (20:26)
[2023-09-14] MEDS: atorvastatin 40 mg Tablet PO (20:27)
[2023-09-14 20:34] LABS: Glucose Point of Care 122 mg/dL (70-110)
--- NOTE | 2023-09-14 21:03 | PC.NURSE ---
biomedical equipment technician had entered pt room to do echo. Patient was heard yelling for tech to get out of room. Upon this nurse entering pt was flailing in the bed (full ROM of both upper ext) and demanding that tech leave stating that tech had hurt his broken shoulder . Pt was cursing and demanding to be transferred to another hospital because he didn't ask to be put in this shit hole . Stated he was fucking leaving and demanded his phone. This nurse offered to get his phone and reminded him that he is not incapacitated and is within his rights to refuse treatment and was allowed to leave but it would be against medical advice as his condition was not stable at this time and he needed further testing and treatment. Following verbl de-escalation by this nurse, was able to explain that since he had cardiac arrest reported within the year without a cardiac workup we needed to do one as that could potentially be adding to his fluid overload. Pt. then stated he did not want that particular tech to do his ultrasound and again stated he was not going to allow it to be done. Was agreeable to having it done if this nurse assisted with positioning and stayed in room during ultrasound. During ultrasound patient fell asleep and had no further behaviors.
--- NOTE | 2023-09-14 21:20 | PC.NURSE ---
Patient requested a turkey sandwich and a coke to drink. Explained those items would not be friendly to a renal diet, especially the coke with the phosphorous content. Patient stated, yeah they have told me that since I started this dialysis stuff five years ago. I'm not going to be miserable, so I'll eat whatever I want. I know it's no good for me, so get me a sandwich and a coke. Offered a sprite and pt stated those taste like shit. I want a coke. Items provided and patient responded with a polite thank you .
--- NOTE | 2023-09-14 23:19 | PC.NURSE ---
Spoke with Dr. Solomon regarding 100 mg Hydralazine due 2100. Blood pressures consistently 110-120/70's, has not had pressures to support medication since dialysis. New order received to decrease Hydralazine to 25 mg TID.
[2023-09-15] VITALS (188 sets, daily range): BP systolic 100–184; BP diastolic 54–107; PULSE 72–128; RESP 12–42; TEMP 36.8–37.6; O2SAT 79–100
[2023-09-15] MEDS: dilTIAZem 60 mg Tablet PO ×4 (01:48→20:34)
[2023-09-15] MEDS: acetaminophen 325 mg Tablet 650 MG PO (03:29)
--- NOTE | 2023-09-15 04:04 | ECG_ITS ---
[facility] Test Date: 2023-09-15 Pat Name: Leopoldo Schaefer Department: Room: ICU07 Gender: Male Licensed Mortician: : 1975 Requested By: Pramod Solomon Order Number: [id number] Vaughn MD: Willard Vigil M.D. Measurements Intervals [place] Rate: 102 P: 0 [place]: 0 QRS: 35 QRSD: 92 T: 60 QT: 332 QTc: 432 Interpretive Statements ATRIAL FIBRILLATION WITH RAPID VENTRICULAR RESPONSE ABNORMAL RHYTHM ECG INTERPRETATION BASED ON A DEFAULT AGE OF 40 YEARS Compared to ECG 09/14/2023 09:50:05 Aberrant conduction of supraventricular beat(s) no longer present Ventricular premature complex(es) no longer present T-wave abnormality no longer present Electronically Signed On 09-18-2023 13:48:16 CDT by Willard Vigil M.D. [id number]
--- NOTE | 2023-09-15 04:11 | PC.NURSE ---
Called to pt room, complained of discomfort to ribs and left shoulder. Stated he was unable to sleep. PRN tylenol administered. Approx 30 min later pt called this nurse back to room stating that the left side of his chest hurt differently . Described the pain to left side of chest as stabbing and stated he also had pain in left elbow. EKG performed, VS unchanged, and pt repositioned. Stated he was unable to sleep in any position besides right side due to previously broken ribs and humerous fx. Placed on back with HOB elevated 30 degrees and pt resting at this time.
[2023-09-15 04:50] LABS: Basophils # 0.1 10^3/uL (0.0-0.1); Basophils % 0.6 %; Eosinophils # 0.2 10^3/uL (0.0-0.8); Eosinophils % 2.5 %; Hematocrit 34.3 % (37-53); Lymphocytes # 0.7 10^3/uL (0.8-4.8); Lymphocytes % 7.7 %; Mean Corpuscular Hemoglobin 31.4 pg (27-33); Mean Corpuscular Volume 104.6 fl (82-101); Mean Platelet Volume 9.2 fL (7.4-10.4); Monocytes # 0.9 10^3/uL (0.2-0.9); Monocytes % 10.3 %; Neutrophils # 6.81 10^3/uL (1.8-7.7); Neutrophils % 78.6 %; Nucleated Red Blood Cells % 0 %; Platelet Count 312 10^3/cmm (157-399); Red Blood Count 3.28 10^6/uL (3.85-5.65); Red Cell Distribution Width 15.9 % (12.1-15.1); White Blood Count 8.67 10^3/uL (3.29-11.43)
[2023-09-15 05:20] LABS: Blood Urea Nitrogen 39 mg/dL (6-20); Calcium 8.8 mg/dL (8.5-10.5); Carbon Dioxide 25 mmol/L (22-29); Chloride 99 mmol/L (98-107); Glomerular Filtration Rate 7.4 mL/min (90-130); Glucose 86 mg/dL (65-115); Osmolality Calculated 297 mOsm/kg (285-295); Sodium 139 mmol/L (136-145)
[2023-09-15 05:27] LABS: Creatinine Clr Calc Pharmacy 12.2094
[2023-09-15] MEDS: isosorbide mononitrate ER 60 mg Tablet 120 MG PO (05:45)
[2023-09-15] MEDS: citalopram 20 mg Tablet PO (05:46)
[2023-09-15] MEDS: heparin 5,000 unit/mL INJ 1 mL 5000 UNIT SUBCUT (05:46)
[2023-09-15] MEDS: aspirin 81 mg EC Tablet PO (05:46)
[2023-09-15] MEDS: ipratropium-albuterol 3 mL Neb INHALATION ×2 (08:00→20:23)
[2023-09-15] MEDS: pantoprazole DR 40 mg Tablet PO ×2 (08:27→20:34)
[2023-09-15] MEDS: apixaban 5 mg Tablet 2.5 MG PO ×2 (08:27→20:35)
[2023-09-15] MEDS: carvedilol 6.25 mg Tablet PO ×2 (08:27→20:35)
[2023-09-15] MEDS: hyDRALAzine 25 mg Tablet PO ×3 (08:27→21:48)
--- NOTE | 2023-09-15 09:05 | P.PN_ITS ---
Subjective 2 Subjective: no new complaints Medications: Reviewed: Yes Vitals/I&O/Wt Last Vital Signs Temp 98.2 F 09/15/23 06:00 Pulse 95 09/15/23 08:09 Resp 17 09/15/23 08:00 BP 156/100 09/15/23 06:15 Pulse Ox 94 09/15/23 08:00 O2 Del Method Nasal Cannula 09/15/23 08:00 O2 Flow Rate 2 09/15/23 08:00 09/14/23 09/15/23 09/15/23 22:59 06:59 14:59 Intake Total 1130 / 1580 240 / 1820 Output Total 3528 / 3528 Balance -2398 / -1948 240 / -1708 Weight last 48 hrs Weight 80.966 kg Weight 80.966 kg Weight 81.6 kg Weight 82.1 kg Weight 82.1 kg Weight 82.418 kg Physical Exam 2 Narrative: Patient is awake alert no distress crackles bilaterally per report Irregular rate and rhythm Has pedal edema Data 09/15/23 04:27 09/15/23 04:27 A&P Assessment and plan (1) End stage renal disease: 1. End-stage renal disease: On MWF schedule as outpatient, now presented with hyperkalemia and pulmonary edema. s/p HD yesterday and HD today, ultrafiltration as tolerated 2. Hyperkalemia: Low potassium diet and HD as above 3. Volume overload/pulmonary edema: Low sodiumdiet , Fluid restriction - 1500 ml/day ,HD as above 4. Rapid A fib 5. Anemia Patient evaluated Attestations 2 Medical Necessity Statement*: per leo Coding Level of Care Code Acute Code for Chg Fwd Diagnoses End stage renal disease N18.6
--- NOTE | 2023-09-15 09:26 | XRR_ITS ---
PROCEDURE INFORMATION: Exam: XR Chest Exam date and time: 09/15/2023 9:39 AM Age: 48 years old Clinical indication: Device placement; Other: Dialysis catheter; Additional info: Dialysis catheter placement verification TECHNIQUE: Imaging protocol: Radiologic exam of the chest. Views: 1 view. COMPARISON: CR XR chest 1V portable [id number] 12/16/2021 11:37 AM FINDINGS: Tubes, catheters and devices: Dialysis catheter terminates in the SVC. Lungs: Mild chronic interstitial prominence. Mild infiltrate or atelectasis at the left lung base. Pleural spaces: Unremarkable. No pleural effusion. No pneumothorax. Heart/Mediastinum: See Vasculature finding. Vasculature: Borderline cardiomegaly and uncoiling of the thoracic aorta each accentuated by the AP positioning. Bones/joints: Unremarkable. XR/XR chest 1V portable [id number] IMPRESSION: 1. Minimal opacity on the left. 2. Dialysis catheter.
--- NOTE | 2023-09-15 13:44 | P.PN_ITS ---
Subjective 2 Subjective: Patient this morning is more communicative as compared to yesterday Stating that his fianc?e will pick him up tomorrow if we discharge him Plan for dialysis today On 2 L nasal cannula Blood pressure stable Patient had a BM as well Vitals/I&O/Wt Last Vital Signs Temp 98.6 F 09/15/23 09:40 Pulse 78 09/15/23 10:55 Resp 18 09/15/23 10:55 BP 123/80 09/15/23 10:55 Pulse Ox 94 09/15/23 10:55 O2 Del Method Nasal Cannula 09/15/23 08:00 O2 Flow Rate 2 09/15/23 08:00 09/14/23 09/15/23 09/15/23 22:59 06:59 14:59 Intake Total 1130 / 1580 240 / 1820 200 / 200 Output Total 3528 / 3528 Balance -2398 / -1948 240 / -1708 200 / 200 Weight last 48 hrs Weight 80.966 kg Weight 80.966 kg Weight 81.6 kg Weight 82.1 kg Weight 82.1 kg Weight 82.418 kg Physical Exam 2 Narrative: No sign of fluid overload Mild crackles and rhonchi Currently on 2 L Hemodynamically stable Lower extremity no edema S1, S2 Cooperative, Data 09/15/23 04:27 09/15/23 04:27 A&P Assessment and plan (1) Anxiety and depression: (2) Uncontrolled hypertension: (3) Atrial fibrillation with RVR: (4) End stage renal disease: (5) Non-compliance with renal dialysis: (6) Pulmonary edema: (7) Pneumonia: (8) COPD exacerbation: Plan Patient can be transferred out of ICU to [facility] Plan for another session of dialysis Pulm edema improving gradually Currently on 2 L At baseline oxygen requirement Plan to discharge him by tomorrow Potassium still high Need another session of dialysis Continue antibiotics for pneumonia Patient takes Eliquis and antiplatelet therapy, has history of A-fib, A-fib RVR has improved Had a bowel movement yesterday Pleuritic chest pain Echo report is pending Patient complaining of pleuritic pain, active smoker, Attestations 2 Medical Necessity Statement*: For discharge tomorrow Diagnoses Anxiety and depression F41.9; F32.A Uncontrolled hypertension I10 Atrial fibrillation with RVR I48.91 End stage renal disease N18.6 Non-compliance with renal dialysis Z91.15 Pulmonary edema J81.1 Pneumonia J18.9 COPD exacerbation J44.1
--- NOTE | 2023-09-15 17:09 | PC.NURSE ---
Pt transferred up from ICU. Goes directly into hemodialysis.
[2023-09-15] MEDS: heparin, porcine 1,000 unit/mL INJ 10 mL 1000 UNIT IV (17:23)
[2023-09-15] MEDS: heparin, porcine 1,000 unit/mL INJ 10 mL 10000 UNIT INTRACATH (17:27)
--- NOTE | 2023-09-15 17:51 | PC.NURSE ---
1800 meds held until after dialysis is over.
[2023-09-15] MEDS: atorvastatin 40 mg Tablet PO (20:34)
[2023-09-15 20:47] LABS: Glucose Point of Care 116 mg/dL (70-110)
[2023-09-15] MEDS: trazodone 150 mg Tablet PO (21:05)
[2023-09-16] VITALS: BP 121/78; PULSE 84; RESP 18; TEMP 36.9; O2SAT 98
[2023-09-16] MEDS: dilTIAZem 60 mg Tablet PO ×2 (01:22→09:42)
[2023-09-16 02:08] VITALS: PULSE 89; O2SAT 98
[2023-09-16] MEDS: aspirin 81 mg EC Tablet PO (05:07)
[2023-09-16] MEDS: isosorbide mononitrate ER 60 mg Tablet 120 MG PO (05:07)
[2023-09-16] MEDS: citalopram 20 mg Tablet PO (05:07)
[2023-09-16 08:00] VITALS: BP 120/76; PULSE 92; PULSE 97; RESP 17; RESP 18; TEMP 36.6; O2SAT 94; O2SAT 98
[2023-09-16] MEDS: ipratropium-albuterol 3 mL Neb INHALATION (08:09)
--- NOTE | 2023-09-16 09:02 | P.PN_ITS ---
Subjective 2 Subjective: no new complaints Medications: Reviewed: Yes Vitals/I&O/Wt Last Vital Signs Temp 98.5 F 09/16/23 00:00 Pulse 92 09/16/23 08:00 Resp 18 09/16/23 08:00 BP 121/78 09/16/23 00:00 Pulse Ox 98 09/16/23 08:00 O2 Del Method Nasal Cannula 09/16/23 08:00 O2 Flow Rate 4 09/16/23 08:00 09/15/23 09/16/23 09/16/23 22:59 06:59 14:59 Intake Total 740 / 940 500 / 1440 Output Total 3502 / 3502 Balance -2762 / -2562 500 / -2062 Weight last 48 hrs Weight 78.018 kg Weight 78.018 kg Weight 77.4 kg Weight 80.966 kg Weight 80.966 kg Weight 81.6 kg Physical Exam 2 Narrative: Patient is awake alert no distress crackles bilaterally per report Irregular rate and rhythm Has pedal edema Data 09/15/23 04:27 09/16/23 11:04 A&P Assessment and plan (1) End stage renal disease: 1. End-stage renal disease: On MWF schedule as outpatient, now presented with hyperkalemia and pulmonary edema. s/p HD yesterday ultrafiltration as tolerated 2. Hyperkalemia: Low potassium diet and HD as above 3. Volume overload/pulmonary edema: Low sodiumdiet , Fluid restriction - 1500 ml/day ,HD as above 4. Rapid A fib 5. Anemia Patient evaluated Attestations 2 Medical Necessity Statement*: per leo Coding Level of Care Code Acute Code for Chg Fwd Diagnoses End stage renal disease N18.6
[2023-09-16] MEDS: apixaban 5 mg Tablet 2.5 MG PO (09:41)
[2023-09-16] MEDS: hyDRALAzine 25 mg Tablet PO (09:41)
[2023-09-16] MEDS: carvedilol 6.25 mg Tablet PO (09:41)
--- NOTE | 2023-09-16 11:07 | PC.SOCIAL ---
IMM Update pg 2 of IMM updated and reviewed w/ patient. Copy provided and copy dated, initialed and placed in chart.
--- NOTE | 2023-09-16 11:53 | P.DS_ITS ---
Discharge Providers Date of Admission: 09/14/23 03:45 Date of Discharge: September 16, 2023 Attending Provider at Admission: Annie Sun MD Attending Provider at Discharge: Paulino Benavidez MD Primary Care Provider: Ras Joy Diagnoses at Discharge Discharge Diagnosis (1) End stage renal disease: Status: Acute Reason for Visit Reason for Visit: CP Renal Failure, Dialysis Hospital Course Hospital Course 48 male with history of chronic kidney disease anterior disease Thursday dialysis dependent, A-fib on Eliquis 2.5 mg twice daily presented to the hospital with fluid overloaded condition he was requiring oxygen up to 3 L for secondary to pulm edema, he was put on BiPAP, he was dialyzed on 2 consecutive days in the hospital, his symptoms improved significantly, patient is an active smoker, uses 3 to 4 L of oxygen at baseline, for A-fib RVR Coreg dose was increased to 6.25 mg twice daily, patient was hypotensive after dialysis his blood pressure improved as well. He is being discharged with stable hemodynami cs. Of note, patient has a very difficult personality, takes a lot of effort to get him to answer all questions, however he does answer questions appropriately. Physical Exam Narrative: Currently on 4 L Hemodynamically stable GCS 15 Nonfocal neuroexam Discharge Data Studies Completed and Pending Completed Studies During Hospitalization Category Date Time Status XR chest 1V portable [id number] Routine Exams 09/15/23 09:26 Completed CV. echo complete* [id number] Routine Ultrasound 09/14/23 09:21 Completed Pending at discharge Category Date Time Status Basic Metabolic Panel AM LABS Lab 09/16/23 11:04 Received Radiology Impressions Chest X-Ray 09/15/23 09:26 IMPRESSION: 1. Minimal opacity on the left. 2. Dialysis catheter. Laboratory Results WBC 8.67 10^3/uL (3.29-11.43) 09/15/23 04:27 RBC 3.28 10^6/uL (3.85-5.65) L 09/15/23 04:27 Hgb 10.30 g/dL (11.27-16.99) L 09/15/23 04:27 Hct 34.3 % (37-53) L 09/15/23 04:27 MCV 104.6 fl (82-101) H 09/15/23 04:27 MCH 31.4 pg (27-33) 09/15/23 04:27 MCHC 30.0 g/dL (30-55) 09/15/23 04:27 RDW 15.9 % (12.1-15.1) H 09/15/23 04:27 Plt Count 312 10^3/cmm (157-399) 09/15/23 04:27 MPV 9.2 fL (7.4-10.4) 09/15/23 04:27 Neut % (Auto) 78.6 % 09/15/23 04:27 Lymph % (Auto) 7.7 % 09/15/23 04:27 Hart % (Auto) 10.3 % 09/15/23 04:27 Eos % (Auto) 2.5 % 09/15/23 04:27 Baso % (Auto) 0.6 % 09/15/23 04:27 Neut # (Auto) 6.81 10^3/uL (1.8-7.7) 09/15/23 04:27 Lymph # (Auto) 0.7 10^3/uL (0.8-4.8) L 09/15/23 04:27 [place] # (Auto) 0.9 10^3/uL (0.2-0.9) 09/15/23 04:27 Eos # (Auto) 0.2 10^3/uL (0.0-0.8) 09/15/23 04:27 Baso # (Auto) 0.1 10^3/uL (0.0-0.1) 09/15/23 04:27 Nucleated RBC % (auto) 0 % 09/15/23 04:27 Nucleated RBCs # 0.0 /100WBC 09/15/23 04:27 Specimen Type Arterial 09/14/23 06:20 Sample Site Radial, right 09/14/23 06:20 ABG pH 7.41 (7.35-7.45) 09/14/23 06:20 ABG pCO2 36.7 mmHg (35-45) 09/14/23 06:20 ABG pO2 74.1 mmHg (80.0-100.0) L 09/14/23 06:20 ABG HCO3 23.3 mmol/L (22-26) 09/14/23 06:20 ABG Base Excess -1.1 mmol/L (-2.0-2.0) 09/14/23 06:20 Shantanu Test Pos 09/14/23 06:20 Hematocrit 33.0 % (42-52) L 09/14/23 06:20 O2 Delivery Device Nc 09/14/23 06:20 O2 Liters/Min 3.0 % 09/14/23 06:20 Ferris Wheel Attendant ID [email or web address] 09/14/23 06:20 Sodium 139 mmol/L (136-145) 09/15/23 04:27 Potassium 6.0 mmol/L (3.5-5.1) H 09/15/23 04:27 Chloride 99 mmol/L (98-107) 09/15/23 04:27 Carbon Dioxide 25 mmol/L (22-29) 09/15/23 04:27 Anion Gap 21.0 (5-19) H 09/15/23 04:27 BUN 39 mg/dL (6-20) H 09/15/23 04:27 Creatinine 7.8 mg/dL (0.7-1.2) H* 09/15/23 04:27 GFR Calculation 7.4 mL/min (90-130) L 09/15/23 04:27 Glucose 86 mg/dL (65-115) 09/15/23 04:27 POC Glucose 116 mg/dL (70-110) H 09/15/23 11:58 Calculated Osmolality 297 mOsm/kg (285-295) H 09/15/23 04:27 Calcium 8.8 mg/dL (8.5-10.5) 09/15/23 04:27 Magnesium 1.9 mg/dL (1.7-2.3) 09/14/23 05:40 Total Bilirubin 0.4 mg/dL (0.15-1.2) 09/14/23 05:40 AST 7 U/L (0-40) 09/14/23 05:40 ALT 6 U/L (0-41) 09/14/23 05:40 Alkaline Phosphatase 122 U/L (40-130) 09/14/23 05:40 Troponin T 5th Gen ng/L 101 ng/L (0-15) H* 09/14/23 05:40 Troponin T Hi Sens 6Hr 108.0 ng/L (0-15) H 09/14/23 13:07 Troponin T Hi Sens 6Hr Delta 7 ng/L (0-12) 09/14/23 13:07 Total Protein 6.7 g/dL (6.6-8.7) 09/14/23 05:40 Albumin 3.4 g/dL (3.5-5.2) L 09/14/23 05:40 Globulin 3.3 g/dL (1.3-4.6) 09/14/23 05:40 Hep Bs Antigen Non-reactive (Nonreactive) 09/14/23 05:40 Hep Bs Antibody 18.5 (11.5-1000) 09/14/23 05:40 Vitals Last Vital Signs Temp 97.8 F 09/16/23 08:00 Pulse 97 09/16/23 08:00 Resp 17 09/16/23 08:00 BP 120/76 09/16/23 08:00 Pulse Ox 94 09/16/23 08:00 O2 Del Method Nasal Cannula 09/16/23 08:00 O2 Flow Rate 4 09/16/23 08:00 Discharge Plan Discharge Patient Disposition: Home Condition: Stable Prescriptions: New hydralazine 25 mg Tablet 25 mg PO TID Qty: 90 3RF Continued RenaPlex-D 800 mcg-12.5 mg -2,000 unit tablet 1 tab PO DAILY (DME) Home oxygen See Rx Instructions .Route .MEDSUPPLY Qty: 1 0RF Rx Instructions: As directed ondansetron 4 mg tablet,disintegrating 4 mg PO Q8H PRN (Reason: nausea and vomiting) Qty: 30 1RF atorvastatin 40 mg tablet 40 mg PO BEDTIME Qty: 30 0RF isosorbide mononitrate 120 mg tablet extended release 24 hr 120 mg PO QAM Qty: 30 0RF pantoprazole 40 mg tablet,delayed release (DR/EC) 40 mg PO BID Qty: 180 1RF hydralazine 100 mg tablet 100 mg PO TID Qty: 90 1RF budesonide-formoterol [Symbicort] 160-4.5 mcg/actuation HFA aerosol inhaler 2 puff inhalation BID 30 Days Qty: 10.2 2RF trazodone 150 mg tablet 150 mg PO BEDTIME Qty: 90 3RF citalopram 20 mg tablet 20 mg PO QAM Qty: 30 5RF acetaminophen 500 mg Tablet 1,000 mg PO Q4H PRN (Reason: Pain) diltiazem HCl 240 mg capsule,extended release 24hr 240 mg PO QAM carvedilol 6.25 mg tablet 6.25 mg PO BID furosemide 80 mg tablet 80 mg PO BID Eliquis 5 mg tablet 2.5 mg PO BID Discharge Orders: Discharge Order (Routine); Ordered 09/16/23 Ordered By: Paulino Benavidez Discharge Diet: Low Salt Discharge Activity: Increase activity as tolerated Patient Instructions: Dialysis Diet (DC), Hemodialysis (DC), Opioid Safety Discharge Attestations Time Spent in Discharge Care*: greater than 30 min Status at Discharge: Cognitive status at discharge: cognitively intact , Behavioral status at discharge: cooperative , Quality Metrics Clinical Quality Measures [ No reported AMI, CVA or VTE this stay] Coding Level of Care Code Acute Code for Chg Fwd Diagnoses End stage renal disease N18.6
[2023-09-16 12:11] LABS: Anion Gap 19.4 (5-19); Blood Urea Nitrogen 30 mg/dL (6-20); Calcium 8.6 mg/dL (8.5-10.5); Carbon Dioxide 26 mmol/L (22-29); Chloride 98 mmol/L (98-107); Creatinine Clr Calc Pharmacy 14.8824; Glomerular Filtration Rate 9.5 mL/min (90-130); Glucose 117 mg/dL (65-115); Osmolality Calculated 293 mOsm/kg (285-295); Potassium 5.4 mmol/L (3.5-5.1); Sodium 138 mmol/L (136-145)
== END 2023-09-16 15:32 | disposition home or self-care (01) | DRG 640 ==
LOC: ICU 09-15 06:29 → MEDSURG 09-15 16:49
PROVIDERS: Hospitalist; Admitting Provider Student in an Organized Health Care Education/Training Program; PCP Family Medicine; Visit Provider Internal Medicine
DX: E87.70 Fluid overload, unspecified (principal); J18.9 Pneumonia, unspecified organism; N18.6 End stage renal disease; I13.2 Hypertensive heart and chronic kidney disease with heart failure and with stage 5 chronic kidney disease, or end stage renal disease; I50.32 Chronic diastolic (congestive) heart failure; J44.0 Chronic obstructive pulmonary disease with (acute) lower respiratory infection; J44.1 Chronic obstructive pulmonary disease with (acute) exacerbation; F17.210 Nicotine dependence, cigarettes, uncomplicated; Z99.2 Dependence on renal dialysis; Z91.158 Patient's noncompliance with renal dialysis for other reason; I48.0 Paroxysmal atrial fibrillation; G47.33 Obstructive sleep apnea (adult) (pediatric); Z99.81 Dependence on supplemental oxygen; K21.9 Gastro-esophageal reflux disease without esophagitis; F41.9 Anxiety disorder, unspecified; F32.A Depression, unspecified; D63.1 Anemia in chronic kidney disease; E87.5 Hyperkalemia; E16.2 Hypoglycemia, unspecified; Z79.01 Long term (current) use of anticoagulants
CPT/HCPCS: 36415; 36416; 36600; 71045; 80048; 80053; 82803; 82962; 83735; 84484; 85025; 86706; 87340; 90935; 93005; 93306; 94640; 96372; 96376; J0360; J1610; J1644; J1940; J3490; J7799

== ENCOUNTER 2023-10-21 11:44 | Inpatient (IN) | payer MEDICARE, SELFPAY ==
[2023-10-21] VITALS (10 sets, daily range): BP systolic 110–200; BP diastolic 55–147; PULSE 54–132; RESP 20–22; TEMP 36.7–37.7; O2SAT 93–98; BMI 26.5
--- NOTE | 2023-10-21 11:47 | XRR_ITS ---
PROCEDURE INFORMATION: Exam: XR Chest Exam date and time: 10/21/2023 11:53 AM Age: 48 years old Clinical indication: Other: Dialysis catheter issue; Prior surgery; Surgery date: 6+ months TECHNIQUE: Imaging protocol: Radiologic exam of the chest. Views: 1 view. COMPARISON: CR XR chest 1V portable [id number] 09/15/2023 9:39 AM FINDINGS: Lungs: Unremarkable. No consolidation. Pleural spaces: Unremarkable. No pleural effusion. No pneumothorax. Heart/Mediastinum: Unremarkable. No cardiomegaly. Bones/joints: Unremarkable. Right central line is in the SVC. Similar findings are seen comparing to prior examination XR/XR chest 1V portable [id number] IMPRESSION: No acute findings. Right central line in the SVC
--- NOTE | 2023-10-21 12:00 | ECG_ITS ---
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 Measurements Intervals [place] Rate: 121 P: 0 [place]: 0 QRS: 43 QRSD: 107 T: 73 QT: 332 QTc: 473 Interpretive Statements ATRIAL FIBRILLATION WITH RAPID VENTRICULAR RESPONSE WITH ABERRANT CONDUCTION OR VENTRICULAR PREMATURE COMPLEXES NONSPECIFIC T-WAVE ABNORMALITY Compared to ECG 09/15/2023 04:04:17 Aberrant conduction of supraventricular beat(s) now present Ventricular premature complex(es) now present T-wave abnormality now present Electronically Signed On 10-21-2023 15:56:[address] Lloyd M.D. [id number] f
--- NOTE | 2023-10-21 12:18 | W.ED.GENADLT ---
HPI - General Adult General: Chief complaint: General Medical Stated complaint: dialysis cath displaced Time Seen by Provider: 10/21/23 11:46 Source: patient and EMS Mode of arrival: EMS Limitations: no limitations History of Present Illness: 48-year-old male has a history of end-stage renal disease on dialysis he was at dialysis today and his stitches came out of his dialysis catheter in his right chest and it is falling out they did do 2 hours of dialysis on him today he has a history of A-fib with RVR he is in A-fib here with heart rate 138 is a low-grade fever he has no other complaints at this time denies any pain or weakness Associated symptoms: Deny chest pain, dyspnea, headache(s), nausea, rash or vomiting Review of Systems Const: Denies: fever(s), chills, body aches or change in appetite ENMT: Denies: throat pain or dental pain Card: Denies: chest pain Resp: Denies: dyspnea GI: Denies: abdominal pain, nausea, vomiting or diarrhea Musc: Denies: neck pain or back pain Skin/Breast: Denies: rash Neuro: Denies: headache(s) PFSH ED PFSH: Medical History Uncontrolled hypertension Hypoglycemia Atrial fibrillation with RVR COPD exacerbation Pulmonary edema Non-compliance with renal dialysis End stage renal disease Anxiety and depression Pneumonia Obstructive sleep apnea Allergic dermatitis ESRD (end stage renal disease) Pleural effusion Dialysis patient Hypertensive emergency Atrial fibrillation/flutter Chest pain Elevated troponin Resistant hypertension Paroxysmal atrial fibrillation with RVR End stage chronic kidney disease Anemia Diastolic CHF Sebaceous cyst GERD (gastroesophageal reflux disease) Insomnia COPD (chronic obstructive pulmonary disease) Reports he is on 4 L of oxygen at home Hypoxia Anxiety and depression Lower respiratory tract infection Encounter to establish care Vitamin D deficiency Hypertension CRF (chronic renal failure) Surgical History S/P hemodialysis catheter insertion H/O hand surgery right hand with hardware H/O circumcision Presence of peritoneal dialysis catheter S/P dialysis catheter insertion (12/12/19) Removed on 04/04/2020 Family History Other Adopted Denies family history of Anesthesia complication Bleeding disorder Social History Smoking and tobacco/nicotine status: current every day tobacco/nicotine user (1ppd X26 years) cigarettes [ Other cigarette details: On and off quitting and restarting] Alcohol intake: never Substance/Drug Use: never Household members: significant other Marital status: Single Current occupational status: disabled Physical Exam Const: COMMON NORMALS: patient oriented x3 HENMT: COMMON NORMALS: normocephalic and atraumatic HEAD & SCALP: normocephalic and atraumatic Eye: COMMON NORMALS: Equal, round and reactive pupils present and EOMs intact bilaterally PUPIL: Yes Equal, round and reactive pupils present Neck/C-Spine: COMMON NORMALS: full ROM and supple Chest: COMMONS NORMALS: normal inspection of the chest Resp: COMMON NORMALS: normal respiratory effort, No retractions, No use of accessory muscles and clear to auscultation bilaterally AUSCULTATION: clear to auscultation bilaterally Cardio: COMMON NORMALS: No murmurs present (Cardio) RATE: tachycardic RHYTHM: abnormal rhythm irregularly irregular GI: COMMON NORMALS: Normal to inspection, nondistended, normoactive bowel sounds present, Soft to palpation, non-tender and no masses PALPATION: Yes Soft to palpation Extremity: COMMON NORMALS: normal to inspection and full ROM Neuro: COMMON NORMALS: patient oriented x3, moves all extremities and no focal motor deficits Psych: COMMON NORMALS: mental status grossly normal, Normal thought process present and cooperative THOUGHT PROCESS: Normal thought process present Skin: COMMON NORMALS: no rashes or lesions noted and no wounds GENERAL SKIN EXAM: no rashes or lesions noted Course Vital Signs: Vital signs: Vital Signs Temperature 98.5 F 10/21/23 12:26 Pulse Rate 123 H 10/21/23 12:26 Respiratory Rate 22 H 10/21/23 11:50 Blood Pressure 184/147 10/21/23 12:26 Pulse Oximetry 98 10/21/23 12:26 Oxygen Delivery Me thod Room Air 10/21/23 12:26 Oxygen Flow Rate 4 10/21/23 11:50 MDM - General Adult Medical Decision Making Patient presents here with A-fib with RVR patient is on a Cardizem drip at this time he also has a displaced dialysis catheter spoke to the hospitalist will admit I spoke to surgery who is consulted to place a new dialysis catheter he is not hyperkalemic Medical Records I reviewed the patient's medical records. Lab Data I reviewed the patient's lab results. 10/21/23 12:10 10/21/23 12:10 Radiology Impressions Chest X-Ray 10/21/23 11:47 IMPRESSION: No acute findings. Right central line in the SVC Laboratory Results WBC 7.69 10^3/uL (3.29-11.43) 10/21/23 12:10 RBC 3.42 10^6/uL (3.85-5.65) L 10/21/23 12:10 Hgb 10.60 g/dL (11.27-16.99) L 10/21/23 12:10 Hct 34.1 % (37-53) L 10/21/23 12:10 MCV 99.7 fl (82-101) 10/21/23 12:10 MCH 31.0 pg (27-33) 10/21/23 12:10 MCHC 31.1 g/dL (30-55) 10/21/23 12:10 RDW 15.3 % (12.1-15.1) H 10/21/23 12:10 Plt Count 344 10^3/cmm (157-399) 10/21/23 12:10 MPV 9.4 fL (7.4-10.4) 10/21/23 12:10 Neut % (Auto) 72.3 % 10/21/23 12:10 Lymph % (Auto) 9.6 % 10/21/23 12:10 [place] % (Auto) 12.4 % 10/21/23 12:10 Eos % (Auto) 4.4 % 10/21/23 12:10 Baso % (Auto) 0.9 % 10/21/23 12:10 Neut # (Auto) 5.56 10^3/uL (1.8-7.7) 10/21/23 12:10 Lymph # (Auto) 0.7 10^3/uL (0.8-4.8) L 10/21/23 12:10 [place] # (Auto) 1.0 10^3/uL (0.2-0.9) H 10/21/23 12:10 Eos # (Auto) 0.3 10^3/uL (0.0-0.8) 10/21/23 12:10 Baso # (Auto) 0.1 10^3/uL (0.0-0.1) 10/21/23 12:10 Nucleated RBC % (auto) 0 % 10/21/23 12:10 Nucleated RBCs # 0.0 /100WBC 10/21/23 12:10 Sodium 140 mmol/L (136-145) 10/21/23 12:10 Potassium 5.0 mmol/L (3.5-5.1) 10/21/23 12:10 Chloride 100 mmol/L (98-107) 10/21/23 12:10 Carbon Dioxide 27 mmol/L (22-29) 10/21/23 12:10 Anion Gap 18.0 (5-19) 10/21/23 12:10 BUN 37 mg/dL (6-20) H 10/21/23 12:10 Creatinine 7.2 mg/dL (0.7-1.2) H* 10/21/23 12:10 GFR Calculation 8.1 mL/min (90-130) L 10/21/23 12:10 Glucose 79 mg/dL (65-115) 10/21/23 12:10 Calculated Osmolality 298 mOsm/kg (285-295) H 10/21/23 12:10 Lactic Acid 0.6 mmol/L (0.5-2.2) 10/21/23 12:10 Calcium 8.5 mg/dL (8.5-10.5) 10/21/23 12:10 Total Bilirubin 0.3 mg/dL (0.15-1.2) 10/21/23 12:10 AST 10 U/L (0-40) 10/21/23 12:10 ALT 8 U/L (0-41) 10/21/23 12:10 Alkaline Phosphatase 140 U/L (40-130) H 10/21/23 12:10 Total Protein 7.5 g/dL (6.6-8.7) 10/21/23 12:10 Albumin 4.0 g/dL (3.5-5.2) 10/21/23 12:10 Globulin 3.5 g/dL (1.3-4.6) 10/21/23 12:10 All radiology interpretation(s) finalized by discharge EKG Data EKG 1: I personally reviewed and interpreted this EKG as follows: EKG interpretation date: 10/21/23 EKG interpretation time: 11:59 Interpretation: afib with rvr hr [address] elevation qrs 107 qtc 404 Computer generated interpretation: Chest X-Ray 10/21/23 11:47 IMPRESSION: No acute findings. Right central line in the SVC Discharge Plan Discharge Patient Disposition: Admitted As Inpatient Clinical Impression: Atrial fibrillation with RVR, Displacement of vascular dialysis catheter Condition: Stable Coding Level of Care Code ED Quality Audit Representative for Shilpa Phillips
[2023-10-21 12:29] LABS: Basophils # 0.1 10^3/uL (0.0-0.1); Basophils % 0.9 %; Eosinophils # 0.3 10^3/uL (0.0-0.8); Eosinophils % 4.4 %; Hematocrit 34.1 % (37-53); Lymphocytes # 0.7 10^3/uL (0.8-4.8); Lymphocytes % 9.6 %; Mean Corpuscular HGB Conc 31.1 g/dL (30-55); Mean Corpuscular Volume 99.7 fl (82-101); Mean Platelet Volume 9.4 fL (7.4-10.4); Monocytes % 12.4 %; Neutrophils # 5.56 10^3/uL (1.8-7.7); Neutrophils % 72.3 %; Nucleated Red Blood Cells % 0 %; Platelet Count 344 10^3/cmm (157-399); Red Blood Count 3.42 10^6/uL (3.85-5.65); Red Cell Distribution Width 15.3 % (12.1-15.1); White Blood Count 7.69 10^3/uL (3.29-11.43)
[2023-10-21 12:43] LABS: Alanine Aminotransferase 8 U/L (0-41); Alkaline Phosphatase 140 U/L (40-130); Aspartate Amino Transferase 10 U/L (0-40); Blood Urea Nitrogen 37 mg/dL (6-20); Calcium 8.5 mg/dL (8.5-10.5); Carbon Dioxide 27 mmol/L (22-29); Chloride 100 mmol/L (98-107); Creatinine Clr Calc Pharmacy 13.4316; Globulin 3.5 g/dL (1.3-4.6); Glomerular Filtration Rate 8.1 mL/min (90-130); Glucose 79 mg/dL (65-115); Lactic Sepsis W/Reflex 0.6 mmol/L (0.5-2.2); Osmolality Calculated 298 mOsm/kg (285-295); Sodium 140 mmol/L (136-145); Total Bilirubin 0.3 mg/dL (0.15-1.2); Total Protein 7.5 g/dL (6.6-8.7)
[2023-10-21] MEDS: acetaminophen 325 mg Tablet 650 MG PO (12:58)
[2023-10-21] MEDS: dilTIAZem 100 MG in sodium chloride 0.9% (add-van) 100 ML IV (12:59)
[2023-10-21] MEDS: dilTIAZem 5 mg/mL SDV 5 mL 15 MG IVP (13:35)
[2023-10-21] MEDS: dilTIAZem 60 mg Tablet 90 MG PO ×2 (15:10→20:41)
[2023-10-21] MEDS: carvedilol 6.25 mg Tablet PO (15:11)
--- NOTE | 2023-10-21 16:20 | PC.NURSE ---
Patient presented to [facility] from ED via a bed with cardizem running ag 5ml/hr.
--- NOTE | 2023-10-21 16:37 | P.HP_ITS ---
Providers/Chief Complaint 2 Admitting Physician: Lionel Day MD Primary Care Provider: Ras Joy Chief Complaint: dialysis cath displaced History of Present Illness Leopoldo Schaefer is a 48 year old male with past medical history of hypertension, atrial fibrillation, CKD on hemodialysis Thursday, Thursday, Thursday was sent to the ER from hemodialysis center today because of displacement of HD catheter. In the ER he was found to have A-fib with RVR hence was placed on Cardizem drip. On seeing the patient he was on Cardizem drip at 7.5 with heart rate running in high 90s with blood pressure of 200 systolic. Patient was given his home oral dose of medications. As per patient his blood pressures usually run over 200 at home. He denies any chest pain, nausea counting difficulty in breathing for now. Review of Systems 2 General: Reports: 10 or more systems reviewed and unremarkable except in HPI and below Const: Denies: fever(s), chills, body aches, change in appetite, change in weight, malaise, night sweats, diaphoresis, change in sleep pattern, daytime sleepiness or snoring Eyes: Denies: change in vision, blurry vision, photophobia, eye discomfort or eye discharge ENMT: Denies: throat pain, enlarged tonsils, hoarseness, mouth pain, oral sores, dry mouth, tinnitus, nasal congestion or post nasal drip Card: Denies: chest pain, palpitations, irregular heart rhythm, edema, swelling of feet/ankles, lightheadedness, syncope, pre-syncope, dyspnea on exertion, orthopnea, leg pain with exertion or acrocyanosis Resp: Denies: dyspnea, productive cough, non-productive cough, wheezing, stridor, pain on inspiration, change in phlegm color, hemoptysis or chest congestion GI: Denies: abdominal pain, nausea, vomiting, hematemesis, coffee ground emesis, dysphagia, heartburn, diarrhea, constipation, bloating, GI cramping, change in bowel habits, pain on defecation, hematochezia or melena : Denies: flank pain, difficulty urinating, dysuria, urinary frequency, urinary urgency, urinary hesitancy, urinary dribbling, difficulty starting urination, change in urine stream, nocturia or hematuria Musc: Denies: neck pain, back pain, extremity pain, joint pain, joint swelling, joint redness, joint stiffness or limited range of motion Neuro: Denies: headache(s), numbness in extremities, weakness in extremities, sensory changes, lack of coordination, difficulty walking, frequent falls, dizziness, vertigo, confusion, Slurred speech present, difficulty communicating thoughts or seizure-like activity Psych: Denies: anxiety, depression, mood swings, panic attacks, hopelessness or irritability Endo: Denies: polyuria, polydipsia, tired all the time, cold intolerance, excessive sweating, flushing or heat intolerance Gene/Lymph: Denies: easy bruising or easy bleeding All/Imm: Denies: tongue swelling, facial swelling or acute wheezing Medications/Allergies Home Medications Medication Instructions Recorded Confirmed Last Taken Type vit B,C-folic ac 800 mcg-zinc 12.5 1 tab PO DAILY 06/09/19 09/14/23 11/29/21 History mg-selen-D3 2,000 unit-vit E tablet (RenaPlex-D) Home oxygen #1 ea 08/07/20 09/14/23 Unknown Rx acetaminophen 500 mg tablet 1,000 mg PO Q4H PRN Pain 02/15/21 09/14/23 Unknown History diltiazem HCl 240 mg 240 mg PO QAM 10/14/21 09/14/23 11/29/21 History capsule,extended release 24 hr ondansetron 4 mg disintegrating 4 mg PO Q8H PRN nausea and 04/16/22 09/14/23 Unknown Rx tablet vomiting #30 tabs atorvastatin 40 mg tablet 40 mg PO BEDTIME #30 tabs 05/16/22 09/14/23 Unknown Rx budesonide-formoterol HFA 160 2 puff inhalation BID 30 days 05/16/22 09/14/23 Unknown Rx mcg-4.5 mcg/actuation aerosol #10.2 grams inhaler (Symbicort) hydralazine 100 mg tablet 100 mg PO TID #90 tabs 05/16/22 09/14/23 Unknown Rx isosorbide mononitrate 120 mg 120 mg PO QAM #30 tabs 05/16/22 09/14/23 Unknown Rx tablet,extended release 24 hr pantoprazole 40 mg tablet,delayed 40 mg PO BID #180 tabs 05/16/22 09/14/23 Unknown Rx release citalopram 20 mg tablet 20 mg PO QAM #30 tabs 09/08/22 09/14/23 Unknown Rx trazodone 150 mg tablet 150 mg PO BEDTIME #90 tabs 09/08/22 09/14/23 Unknown Rx apixaban 5 mg tablet (Eliquis) 2.5 mg PO BID 09/14/23 09/14/23 Unknown History carvedilol 6.25 mg tablet 6.25 mg PO BID 09/14/23 09/14/23 Unknown History furosemide 80 mg tablet 80 mg PO BID 09/14/23 09/14/23 Unknown History hydralazine 25 mg tablet 25 mg PO TID #90 tabs 09/16/23 Unknown Rx Allergies Allergy/AdvReac Type Severity Reaction Status Date / Time lisinopril Allergy swelling Verified 08/05/22 15:12 Penicillins Allergy ALGY-Hives Verified 08/05/22 15:12 tramadol Allergy ALGY-Hives Verified 08/05/22 15:12 PFSH Acute 2 PFSH: Medical History (Updated 10/21/23 @ 16:42 by Lionel Day MD) Uncontrolled hypertension Hypoglycemia Atrial fibrillation with RVR COPD exacerbation Pulmonary edema Non-compliance with renal dialysis End stage renal disease Anxiety and depression Pneumonia Obstructive sleep apnea Allergic dermatitis ESRD (end stage renal disease) Pleural effusion Dialysis patient Hypertensive emergency Atrial fibrillation/flutter Chest pain Elevated troponin Resistant hypertension Paroxysmal atrial fibrillation with RVR End stage chronic kidney disease Anemia Diastolic CHF Sebaceous cyst GERD (gastroesophageal reflux disease) Insomnia COPD (chronic obstructive pulmonary disease) Reports he is on 4 L of oxygen at home Hypoxia Anxiety and depression Lower respiratory tract infection Encounter to establish care Vitamin D deficiency Hypertension CRF (chronic renal failure) Surgical History S/P hemodialysis catheter insertion H/O hand surgery right hand with hardware H/O circumcision Presence of peritoneal dialysis catheter S/P dialysis catheter insertion (12/12/19) Removed on 04/04/2020 Family History Other Adopted Denies family history of Anesthesia complication Bleeding disorder Social History Smoking and tobacco/nicotine status: current every day tobacco/nicotine user (1ppd X26 years) cigarettes [ Other cigarette details: On and off quitting and restarting] Alcohol intake: never Substance/Drug Use: never Household members: significant other Marital status: Single Current occupational status: disabled Vitals/I&O/Wt Last Vital Signs Temp 98.5 F 10/21/23 12:26 Pulse 85 10/21/23 15:24 Resp 22 H 10/21/23 11:50 BP 188/120 10/21/23 15:24 Pulse Ox 94 10/21/23 15:24 O2 Del Method Nasal Cannula 10/21/23 15:24 O2 Flow Rate 3 10/21/23 15:24 Weight last 48 hrs Weight 83.098 kg Weight 83.915 kg Physical Exam 2 Narrative: General: No acute distress, AO x3 HEENT: PERRLA, pupils bilaterally equal and reactive Chest: Normal vesicular breath sounds, no added sounds, fine Giurgius bilateral lower zone CVS: S1-S2 irregularly irregular, pansystolic murmur at left intercostal space retrosternal, no tachycardia, no gallops, no rubs Abdomen: Soft, nontender, no organomegaly, bowel sounds present Neuro: No focal deficits, no facial deformity, AO x3, power 5/5 in all limbs Data 10/21/23 12:10 10/21/23 12:10 Micro: Microbiology 10/21/23 13:45 Blood Culture - Preliminary Blood SPECIMEN COLLECTED A&P Assessment and plan (1) Uncontrolled hypertension: Goal blood pressure less than 140/90 mmHg with mean over 65. Restart home dose of hydralazine 100 mg 3 times daily, Imdur 120 mg oral daily. For better heart rate control switch from Coreg to metoprolol 50 mg twice daily. Cardizem 90 mg every 6 hourly. Will uptitrate as for goal blood pressures. (2) Displacement of vascular dialysis catheter: Surgery has been consulted from the ER. Hold off on Eliquis. (3) End stage chronic kidney disease: (4) Atrial fibrillation with RVR: Currently on Cardizem drip. Wean with heart rate below 100. Oral Cardizem 90 mg every 6 hourly. Metoprolol as above. Plan Full code Renal dialysis diet, n.p.o. after midnight Protonix for PUD prophylaxis SCDs for DVT prophylaxis, once dialysis catheter is in place Eliquis 2.5 mg twice daily. Attestations 2 Medical Necessity Statement*: Admission for more than 2 midnights for management of A-fib with RVR, uncontrolled hypertension, displaced HD catheter Diagnoses Uncontrolled hypertension I10 Displacement of vascular dialysis catheter T82.42XA End stage chronic kidney disease N18.6 Atrial fibrillation with RVR I48.91
[2023-10-21] MEDS: hyDRALAzine 20 mg/mL INJ 1 mL 10 MG IVP (16:57)
[2023-10-21] MEDS: pantoprazole DR 40 mg Tablet PO (16:58)
[2023-10-21] MEDS: famotidine 20 mg Tablet PO (16:58)
--- NOTE | 2023-10-21 17:06 | PC.NURSE ---
Patient goes to dialysis on Thursday - Thursday - Thursday. Last dialysis was today at 0600.
[2023-10-21 17:22] LABS: Procalcitonin 0.85 ng/mL (0-0.5); Thyroid Stimulating Hormone 1.64 uIU/mL (0.27-4.20); Vitamin B12 411 pg/mL (232-1245)
[2023-10-21 17:41] LABS: Iron 34 ug/dL (59-158); Percent Saturation 17.7 % (20-50); Total Iron Binding Capacity 192 mcg/dl; Unsaturated Iron Binding 158 ug/dL (112-347)
[2023-10-21] MEDS: hyDRALAzine 50 mg Tablet 100 MG PO (20:42)
[2023-10-21] MEDS: metoprolol tartrate 50 mg Tablet PO (20:43)
[2023-10-21] MEDS: hyDRALAzine 25 mg Tablet PO (20:43)
[2023-10-21] MEDS: trazodone 150 mg Tablet PO (20:44)
--- NOTE | 2023-10-21 22:50 | PC.NURSE ---
patient is refusing to wear telemetry at this time, but has agree to leave on pulse ox for monitoring
[2023-10-22] VITALS (23 sets, daily range): BP systolic 90–157; BP diastolic 50–110; PULSE 49–90; RESP 16–20; TEMP 36.1–37; O2SAT 89–100
[2023-10-22 04:16] LABS: Basophils # 0.1 10^3/uL (0.0-0.1); Basophils % 0.9 %; Eosinophils # 0.5 10^3/uL (0.0-0.8); Eosinophils % 5.2 %; Hematocrit 33.9 % (37-53); Lymphocytes # 0.8 10^3/uL (0.8-4.8); Lymphocytes % 9.1 %; Mean Corpuscular HGB Conc 30.7 g/dL (30-55); Mean Corpuscular Hemoglobin 31.4 pg (27-33); Mean Corpuscular Volume 102.4 fl (82-101); Mean Platelet Volume 9.5 fL (7.4-10.4); Monocytes # 0.9 10^3/uL (0.2-0.9); Monocytes % 9.8 %; Neutrophils % 74.5 %; Nucleated Red Blood Cells % 0 %; Platelet Count 355 10^3/cmm (157-399); Red Blood Count 3.31 10^6/uL (3.85-5.65); Red Cell Distribution Width 15.6 % (12.1-15.1); White Blood Count 8.86 10^3/uL (3.29-11.43)
[2023-10-22 04:35] LABS: Alanine Aminotransferase 7 U/L (0-41); Albumin Level 3.5 g/dL (3.5-5.2); Alkaline Phosphatase 131 U/L (40-130); Anion Gap 21.1 (5-19); Aspartate Amino Transferase 9 U/L (0-40); Blood Urea Nitrogen 52 mg/dL (6-20); Calcium 8.6 mg/dL (8.5-10.5); Carbon Dioxide 24 mmol/L (22-29); Chloride 98 mmol/L (98-107); Creatinine Clr Calc Pharmacy 10.7625; Globulin 3.6 g/dL (1.3-4.6); Glomerular Filtration Rate 6.3 mL/min (90-130); Glucose 88 mg/dL (65-115); Magnesium 1.8 mg/dL (1.7-2.3); Osmolality Calculated 295 mOsm/kg (285-295); Phosphorus 6.3 mg/dL (2.5-4.5); Sodium 136 mmol/L (136-145); Total Bilirubin 0.4 mg/dL (0.15-1.2); Total Protein 7.1 g/dL (6.6-8.7)
[2023-10-22 04:37] LABS: Chol HDL Ratio 2.22 mg/dL (1.0-5.00); Cholesterol 100 mg/dL (0-200); HDL Cholesterol 45 mg/dL (60-100); LDL Cholesterol Calculated 46 mg/dL (50-129); LDL HDL Ratio 1.02 RATIO (0.00-3.22); Triglycerides 43 mg/dL (0-150)
[2023-10-22 04:38] LABS: Estmated Average Glucose 85; Hemoglobin A1C 4.6 % (4.0-6.0)
[2023-10-22 04:49] LABS: Potassium 7.1 mmol/L (3.5-5.1)
--- NOTE | 2023-10-22 05:06 | PC.NURSE ---
Called to confirm with telepharmacy to use bag of 250ml D10 over 15min in place of amp of d50.
[2023-10-22] MEDS: calcium gluconate 0.9% NaCL 1 GM/50 ML PREMIX IV (05:17)
[2023-10-22] MEDS: dextrose 10% 250 ML 1000 ML IV (05:47)
[2023-10-22] MEDS: insulin regular-human 10 UNIT in SYRINGE 1 EACH IVP (05:48)
[2023-10-22] MEDS: isosorbide mononitrate ER 60 mg Tablet 120 MG PO (06:02)
[2023-10-22] MEDS: citalopram 20 mg Tablet PO (06:02)
[2023-10-22 06:23] LABS: Glucose Point of Care 165 mg/dL (70-110)
--- NOTE | 2023-10-22 06:34 | PC.NURSE ---
patient refused to get ready for surgery at 0545, to get changed into gown and be prepped for surgery this AM, at 0615 outpatient surgery called saying his surgery is scheduled for 0700 and that nurse is almost coming to get the patient it allowed to get changed into a gown but nothing else and refused to take off his shorts for surgery. the nurse from surgery took him with his shorts on to go to preop.
--- NOTE | 2023-10-22 06:43 | SC_ITS ---
WS: [id number] C-ARM RADIOGRAPHS CHEST; 2 IMAGES HISTORY: intra-op COMPARISON: None available. Intraoperative imaging during dialysis catheter placement. Dialysis catheter enters through the RIGHT subclavian vein. SC/C-arm FL for CVA [id number] IMPRESSION: Intraoperative imaging during dialysis catheter placement.
--- NOTE | 2023-10-22 06:52 | P.ANESASSM_ITS ---
Pre-Anesthetic Assessment Height/Weight: Height 1.78 m Weight 82.072 kg Temp Pulse Resp BP Pulse Ox O2 Del Method O2 Flow Rate 98.1 F 60 17 127/84 94 Room Air 3 10/22/23 06:33 10/22/23 06:33 10/22/23 06:33 10/22/23 06:33 10/22/23 06:33 10/22/23 06:33 10/22/23 03:44 Operation Date: 10/22/23 07:00 Proposed Procedures p Dialysis Catheter Insertion(Not Applicable) - Alcides Alicia DO Familial anesthetic complications: None Was Beta Fanny taken within 24 hours: Yes Was Clonidine taken within 24 hours: Yes Last intake: > 8h rs Social Tobacco and No alcohol Exam alert, oriented x 3, clear to auscultation bilaterally and regular rate & rhythm Airway Mallampati: Class IV Dentition: chipped Pulmonary Chronic Obstructive Pulmonary Disease (4 L NC) and Sleep Apnea CV/HEM Atrial Fibrillation EF 60% mod TVR Chronic Renal Failure On Hemodialysis, catheter malfunction so missed session hyperkalemic this morning treated with calcium gluconate and Insulin bolus Anesthetic Plan ASA status: 4E Anesthesia: MAC Risk of > 500 ml blood loss (7ml/kg in children): No Medications/Allergies Home Medications Medication Instructions Recorded Confirmed Last Taken Type vit B,C-folic ac 800 mcg-zinc 12.5 1 tab PO DAILY 06/09/19 10/22/23 1 Day Ago History mg-selen-D3 2,000 unit-vit E ~10/21/23 tablet (RenaPlex-D) Home oxygen #1 ea 08/07/20 10/22/23 Unknown Rx acetaminophen 500 mg tablet 1,000 mg PO Q4H PRN Pain 02/15/21 10/21/23 Unknown History diltiazem HCl 240 mg 240 mg PO QAM 10/14/21 10/21/23 10/21/23 History capsule,extended release 24 hr ondansetron 4 mg disintegrating 4 mg PO Q8H PRN nausea and 04/16/22 10/22/23 Unknown Rx tablet vomiting #30 tabs atorvastatin 40 mg tablet 40 mg PO BEDTIME #30 tabs 05/16/22 10/21/23 1 Day Ago Rx ~10/20/23 budesonide-formoterol HFA 160 2 puff inhalation BID 30 days 05/16/22 10/21/23 Unknown Rx mcg-4.5 mcg/actuation aerosol #10.2 grams inhaler (Symbicort) hydralazine 100 mg tablet 100 mg PO TID #90 tabs 05/16/22 10/22/23 1 Day Ago Rx ~10/21/23 isosorbide mononitrate 120 mg 120 mg PO QAM #30 tabs 05/16/22 10/22/23 1 Day Ago Rx tablet,extended release 24 hr ~10/21/23 pantoprazole 40 mg tablet,delayed 40 mg PO BID #180 tabs 05/16/22 10/22/23 1 Day Ago Rx release ~10/21/23 citalopram 20 mg tablet 20 mg PO QAM #30 tabs 09/08/22 10/21/23 10/21/23 Rx trazodone 150 mg tablet 150 mg PO BEDTIME #90 tabs 09/08/22 10/22/23 2 Days Ago Rx ~10/20/23 apixaban 5 mg tablet (Eliquis) 2.5 mg PO BID 09/14/23 10/21/23 10/21/23 History carvedilol 6.25 mg tablet 6.25 mg PO BID 09/14/23 10/21/23 1 Day Ago History ~10/20/23 furosemide 80 mg tablet 80 mg PO BID 09/14/23 10/21/23 1 Day Ago History ~10/20/23 hydralazine 25 mg tablet 25 mg PO TID #90 tabs 09/16/23 10/21/23 1 Day Ago Rx ~10/20/23 Allergies Allergy/AdvReac Type Severity Reaction Status Date / Time lisinopril Allergy swelling Verified 08/05/22 15:12 Penicillins Allergy ALGY-Hives Verified 08/05/22 15:12 tramadol Allergy ALGY-Hives Verified 08/05/22 15:12 Current Medications Generic Name Dose Route Start Last Admin Trade Name Jhoanq PRN Reason Stop Dose Admin Citalopram Hydrobromide 20 mg 10/22/23 06:00 10/22/23 06:02 Citalopram 20 Mg Tablet PO 20 mg QAM FRANCISCO Administration Diltiazem HCl 90 mg 10/21/23 15:00 10/22/23 04:15 Diltiazem 60 Mg Tablet PO Not Given Q6H FRANCISCO Famotidine 20 mg 10/21/23 18:00 10/21/23 16:58 Famotidine 20 Mg Tablet PO 20 mg BID FRANCISCO Administration Hydralazine HCl 100 mg 10/21/23 21:00 10/21/23 20:42 Hydralazine 50 Mg Tablet PO 100 mg TID FRANCISCO Administration Hydralazine HCl 25 mg 10/21/23 21:00 10/21/23 20:43 Hydralazine 25 Mg Tablet PO 25 mg TID FRANCISCO Administration Hydralazine HCl 10 mg 10/21/23 16:28 10/21/23 16:57 Hydralazine 20 Mg/Ml Inj 1 Ml IVP 10 mg Q4H PRN Administration SBP More than 160 mmhg Diltiazem HCl 100 mg/ Sodium 100 mls @ 0 mls/hr 10/21/23 12:30 10/21/23 22:53 Chloride IV Infused .Q0M FRANCISCO Titration Protocol Per Protocol Isosorbide Mononitrate 120 mg 10/22/23 06:00 10/22/23 06:02 Isosorbide Mononitrate Er 60 Mg Tablet PO 120 mg QAM FRANCISCO Administration Metoprolol Tartrate 50 mg 10/21/23 21:00 10/21/23 20:43 Metoprolol Tartrate 50 Mg Tablet PO 50 mg BID@0900,2100 FRANCISCO Administration Pantoprazole Sodium 40 mg 10/21/23 18:00 10/21/23 16:[address] 40 Mg Tablet PO 40 mg BID FRANCISCO Administration Trazodone HCl 150 mg 10/21/23 21:00 10/21/23 20:44 Trazodone 150 Mg Tablet PO 150 mg BEDTIME FRANCISCO Administration [facility] Anesthesia Medical History (Updated 10/21/23 @ 16:42 by Lionel Day MD) Uncontrolled hypertension Hypoglycemia Atrial fibrillation with RVR COPD exacerbation Pulmonary edema Non-compliance with renal dialysis End stage renal disease Anxiety and depression Pneumonia Obstructive sleep apnea Allergic dermatitis ESRD (end stage renal disease) Pleural effusion Dialysis patient Hypertensive emergency Atrial fibrillation/flutter Chest pain Elevated troponin Resistant hypertension Paroxysmal atrial fibrillation with RVR End stage chronic kidney disease Anemia Diastolic CHF Sebaceous cyst GERD (gastroesophageal reflux disease) Insomnia COPD (chronic obstructive pulmonary disease) Reports he is on 4 L of oxygen at home Hypoxia Anxiety and depression Lower respiratory tract infection Encounter to establish care Vitamin D deficiency Hypertension CRF (chronic renal failure) Surgical History S/P hemodialysis catheter insertion H/O hand surgery right hand with hardware H/O circumcision Presence of peritoneal dialysis catheter S/P dialysis catheter insertion (12/12/19) Removed on 04/04/2020 Family History Other Adopted Denies family history of Anesthesia complication Bleeding disorder Social History Smoking and tobacco/nicotine status: current every day tobacco/nicotine user (1ppd X26 years) cigarettes [ Other cigarette details: On and off quitting and restarting] Alcohol intake: never Substance/Drug Use: never Household members: significant other Marital status: Single Current occupational status: disabled Data Anesthesia 10/22/23 03:43 10/22/23 03:43 Short CBC 10/21/23 10/22/23 Range/Units 12:10 03:43 WBC 7.69 8.86 (3.29-11.43) 10^3/uL Hgb 10.60 L 10.40 L (11.27-16.99) g/dL Hct 34.1 L 33.9 L (37-53) % MCV 99.7 102.4 H (82-101) fl Plt Count 344 355 (157-399) 10^3/cmm Neut % (Auto) 72.3 74.5 % Neut # (Auto) 5.56 6.60 (1.8-7.7) 10^3/uL BMP 10/21/23 10/22/23 12:10 03:43 Sodium 140 136 Potassium 5.0 7.1 H* D Chloride 100 98 Carbon Dioxide 27 24 BUN 37 H 52 H Creatinine 7.2 H* 8.9 H* Glucose 79 88 Calcium 8.5 8.6 Liver Function 10/21/23 10/22/23 Range/Units 12:10 03:43 Total Bilirubin 0.3 0.4 (0.15-1.2) mg/dL AST 10 9 (0-40) U/L ALT 8 7 (0-41) U/L Alkaline Phosphatase 140 H 131 H (40-130) U/L Albumin 4.0 3.5 (3.5-5.2) g/dL Microbiology 10/21/23 18:40 Blood Culture - Preliminary Blood SPECIMEN COLLECTED 10/21/23 13:45 Blood Culture - Preliminary Blood SPECIMEN COLLECTED Cardiac Studies: 2 Echocardiogram 09/14/23
--- NOTE | 2023-10-22 06:57 | P.CONIM_ITS ---
Providers/Reason For Consult 2 Consulting Physician/Specialty*: Dr. Alcides Alicia, DO/General surgery Reason for Consult*: Permacath replacement Attending Physician: Lionel Day MD Primary Care Provider: Ras Joy History of Present Illness History of Present Illness Leopoldo Schaefer is a 48 year old male with past medical history of hypertension, atrial fibrillation, CKD on hemodialysis Thursday, Thursday, Thursday was sent to the ER from hemodialysis center today because of displacement of HD catheter. He was found to be in A-fib with RVR in the ER and put on a Cardizem drip. This morning he is very hard to wake up. He denies any pain, nausea and/or emesis. He is on low-dose Eliquis, 2.5 mg, which she last took yesterday morning. Review of Systems 2 General: Reports: 10 or more systems reviewed and unremarkable except in HPI and below Medications/Allergies Home Medications Medication Instructions Recorded Confirmed Last Taken Type vit B,C-folic ac 800 mcg-zinc 12.5 1 tab PO DAILY 06/09/19 10/22/23 1 Day Ago History mg-selen-D3 2,000 unit-vit E ~10/21/23 tablet ([facility]-D) Home oxygen #1 ea 08/07/20 10/22/23 Unknown Rx acetaminophen 500 mg tablet 1,000 mg PO Q4H PRN Pain 02/15/21 10/21/23 Unknown History diltiazem HCl 240 mg 240 mg PO QAM 10/14/21 10/21/23 10/21/23 History capsule,extended release 24 hr ondansetron 4 mg disintegrating 4 mg PO Q8H PRN nausea and 04/16/22 10/22/23 Unknown Rx tablet vomiting #30 tabs atorvastatin 40 mg tablet 40 mg PO BEDTIME #30 tabs 05/16/22 10/21/23 1 Day Ago Rx ~10/20/23 budesonide-formoterol HFA 160 2 puff inhalation BID 30 days 05/16/22 10/21/23 Unknown Rx mcg-4.5 mcg/actuation aerosol #10.2 grams inhaler (Symbicort) hydralazine 100 mg tablet 100 mg PO TID #90 tabs 05/16/22 10/22/23 1 Day Ago Rx ~10/21/23 isosorbide mononitrate 120 mg 120 mg PO QAM #30 tabs 05/16/22 10/22/23 1 Day Ago Rx tablet,extended release 24 hr ~10/21/23 pantoprazole 40 mg tablet,delayed 40 mg PO BID #180 tabs 05/16/22 10/22/23 1 Day Ago Rx release ~10/21/23 citalopram 20 mg tablet 20 mg PO QAM #30 tabs 09/08/22 10/21/23 10/21/23 Rx trazodone 150 mg tablet 150 mg PO BEDTIME #90 tabs 09/08/22 10/22/23 2 Days Ago Rx ~10/20/23 apixaban 5 mg tablet (Eliquis) 2.5 mg PO BID 09/14/23 10/21/23 10/21/23 History carvedilol 6.25 mg tablet 6.25 mg PO BID 09/14/23 10/21/23 1 Day Ago History ~10/20/23 furosemide 80 mg tablet 80 mg PO BID 09/14/23 10/21/23 1 Day Ago History ~10/20/23 hydralazine 25 mg tablet 25 mg PO TID #90 tabs 09/16/23 10/21/23 1 Day Ago Rx ~10/20/23 Allergies Allergy/AdvReac Type Severity Reaction Status Date / Time lisinopril Allergy swelling Verified 08/05/22 15:12 Penicillins Allergy ALGY-Hives Verified 08/05/22 15:12 tramadol Allergy ALGY-Hives Verified 08/05/22 15:12 Current Medications Generic Name Dose Route Start Last Admin Trade Name Staci PRN Reason Stop Dose Admin Citalopram Hydrobromide 20 mg 10/22/23 06:00 10/22/23 06:02 Citalopram 20 Mg Tablet PO 20 mg QAM FRANCISCO Administration Diltiazem HCl 90 mg 10/21/23 15:00 10/22/23 04:15 Diltiazem 60 Mg Tablet PO Not Given Q6H FRANCISCO Famotidine 20 mg 10/21/23 18:00 10/21/23 16:58 Famotidine 20 Mg Tablet PO 20 mg BID FRANCISCO Administration Hydralazine HCl 100 mg 10/21/23 21:00 10/21/23 20:42 Hydralazine 50 Mg Tablet PO 100 mg TID FRANCISCO Administration Hydralazine HCl 25 mg 10/21/23 21:00 10/21/23 20:43 Hydralazine 25 Mg Tablet PO 25 mg TID FRANCISCO Administration Hydralazine HCl 10 mg 10/21/23 16:28 10/21/23 16:57 Hydralazine 20 Mg/Ml Inj 1 Ml IVP 10 mg Q4H PRN Administration SBP More than 160 mmhg Diltiazem HCl 100 mg/ Sodium 100 mls @ 0 mls/hr 10/21/23 12:30 10/21/23 22:53 Chloride IV Infused .Q0M FRANCISCO Titration Protocol Per Protocol Isosorbide Mononitrate 120 mg 10/22/23 06:00 10/22/23 06:02 Isosorbide Mononitrate Er 60 Mg Tablet PO 120 mg QAM FRANCISCO Administration Metoprolol Tartrate 50 mg 10/21/23 21:00 10/21/23 20:43 Metoprolol Tartrate 50 Mg Tablet PO 50 mg BID@0900,2100 FRANCISCO Administration Pantoprazole Sodium 40 mg 10/21/23 18:00 10/21/23 16:[address] 40 Mg Tablet PO 40 mg BID FRANCISCO Administration Trazodone HCl 150 mg 10/21/23 21:00 10/21/23 20:44 Trazodone 150 Mg Tablet PO 150 mg BEDTIME FRANCISCO Administration PFSH Acute 2 PFSH: Medical History Uncontrolled hypertension Hypoglycemia Atrial fibrillation with RVR COPD exacerbation Pulmonary edema Non-compliance with renal dialysis End stage renal disease Anxiety and depression Pneumonia Obstructive sleep apnea Allergic dermatitis ESRD (end stage renal disease) Pleural effusion Dialysis patient Hypertensive emergency Atrial fibrillation/flutter Chest pain Elevated troponin Resistant hypertension Paroxysmal atrial fibrillation with RVR End stage chronic kidney disease Anemia Diastolic CHF Sebaceous cyst GERD (gastroesophageal reflux disease) Insomnia COPD (chronic obstructive pulmonary disease) Reports he is on 4 L of oxygen at home Hypoxia Anxiety and depression Lower respiratory tract infection Encounter to establish care Vitamin D deficiency Hypertension CRF (chronic renal failure) Surgical History S/P hemodialysis catheter insertion H/O hand surgery right hand with hardware H/O circumcision Presence of peritoneal dialysis catheter S/P dialysis catheter insertion (12/12/19) Removed on 04/04/2020 Family History Other Adopted Denies family history of Anesthesia complication Bleeding disorder Social History Smoking and tobacco/nicotine status: current every day tobacco/nicotine user (1ppd X26 years) cigarettes [ Other cigarette details: On and off quitting and restarting] Alcohol intake: never Substance/Drug Use: never Household members: significant other Marital status: Single Current occupational status: disabled Vitals/I&O/Wt Last Vital Signs Temp 98.1 F 10/22/23 06:33 Pulse 60 10/22/23 06:33 Resp 17 10/22/23 06:33 BP 127/84 10/22/23 06:33 Pulse Ox 94 10/22/23 06:33 O2 Del Method Room Air 10/22/23 06:33 O2 Flow Rate 3 10/22/23 03:44 10/21/23 10/21/23 10/22/23 14:59 22:59 06:59 Intake Total 944.041 / 944.041 300.1 / 1244.141 Balance 944.041 / 944.041 300.1 / 1244.141 Weight last 48 hrs Weight 180 lb 15 oz Weight 183 lb 3.2 oz Weight 185 lb Physical Exam 2 Narrative: General : Patient is well developed , no acute distress, oriented x3 Head : Normal cephalic, a-traumatic. Ears : Pinnae and external canal are normal. Hearing is normal. Eyes : PERRLA, Sclera and injection are normal. No conjunctival discharge. Nose : Mucous membranes are without erythema. Throat : buccal mucosa is normal, gums are without significant recession or hypertrophy. Lungs : Equal chest rise bilaterally, no use of accessory muscles, trachea is midline. Cor : Rate and rhythm are normal. Abdomen : Soft, ND, NT, no g/r/m Extremities : No edema, no cyanosis or clubbing, dorsalis pedis pulses are present bilaterally, non-tender to palpation of calves. Upper extremities are normal bilaterally. Back : non-tender to palpation, no CVA tenderness. Neuro : CN II - XII intact, Upper and lower extremities have equal and full strength Data 10/22/23 03:43 10/22/23 03:43 Micro: Microbiology 10/21/23 18:40 Blood Culture - Preliminary Blood SPECIMEN COLLECTED 10/21/23 13:45 Blood Culture - Preliminary Blood SPECIMEN COLLECTED A&P Assessment and plan (1) Displacement of vascular dialysis catheter: (2) End stage chronic kidney disease: Plan Permacath removal and permacath placement The risks and benefits of the procedure, including but not limited to, bleeding, infection, infection requiring Mediport removal antibiotic therapy and repeat surgery, damage to surrounding structures, scar, numbness, pain, pneumothorax requiring thoracostomy tube, were explained to the patient. He/She is understanding of the risks and wishes to proceed. Coding Level of Care Code 40695 Diagnoses Displacement of vascular dialysis catheter T82.42XA End stage chronic kidney disease N18.6
[2023-10-22] MEDS: sodium chloride 0.9% 1,000 ML 30 ML IV (07:04)
[2023-10-22 07:05] LABS: Glucose Point of Care 26 mg/dL (70-110)
[2023-10-22 07:05] LABS: Glucose Point of Care 26 mg/dL (70-110)
[2023-10-22] MEDS: dextrose 50% syringe 50 mL (07:05)
[2023-10-22 07:17] LABS: Glucose Point of Care 124 mg/dL (70-110)
--- NOTE | 2023-10-22 07:21 | PC.NURSE ---
Patient currently off the floor in surgery for dialysis catheter replacement.
[2023-10-22 07:25] LABS: Anion Gap 20.2 (5-19); Blood Urea Nitrogen 52 mg/dL (6-20); Calcium 8.6 mg/dL (8.5-10.5); Carbon Dioxide 25 mmol/L (22-29); Chloride 98 mmol/L (98-107); Creatinine Clr Calc Pharmacy 10.8848; Glomerular Filtration Rate 6.4 mL/min (90-130); Osmolality Calculated 297 mOsm/kg (285-295); Potassium 5.2 mmol/L (3.5-5.1); Sodium 138 mmol/L (136-145)
[2023-10-22 07:27] LABS: Glucose 35 mg/dL (65-115)
[2023-10-22] MEDS: vancomycin 1,500 MG/300 ML PIGGYBACK 200 MG IV (07:33)
--- NOTE | 2023-10-22 08:00 | PC.NURSE ---
pt was brought over from [facility] to prepare for surgery at 0630. Pt was awake but tired and verbally responsive to questions asked of him. Vital signs were collected IV was flushed and was patent. Dr. Almodovar ordered a repeat Bmp due to an elevated potassium level 10ml was drawn and wasted from the IV located in right AC then the 10ml was collected for BMP. Dr Almodovar consented the patient for anesthesia he was sleepy but verbalized he understood what he was consenting to. Dr Alicia came to see the patient and consent him for the procedure at this time 0555 the patient was arousable to verbal a physical touch. Pt agreed to the procedure and signed consent. This nurse then proceeded to finish up prep for surgery when it was observed that the patient was sweating profusely and was having difficulty staying awake. This nurse then asked another nurse to take a blood glucose on the patient the reading showed 26 on the left hand then another blood glucose was performed on the right side with another reading of 26. Dr. Almodovar was notified and she gave a verbal order for D50 a full ampul. The D50 was pulled at 0704 and administered to the patient. At 0713 a recheck was done and the blood glucose was 124 at that time. Patient continued to be arousable to verbal and physical touch. Pt sent to surgery at 0730.
[2023-10-22] MEDS: heparin, porcine 1,000 unit/mL INJ 10 mL 10000 UNIT IRRIGATION (08:01)
[2023-10-22] MEDS: lidocaine-epi 2% PF 1:200,000 20 mL SDV XX (08:01)
--- NOTE | 2023-10-22 08:19 | XR_ITS ---
WS: [id number] XR chest 1V portable [id number] REASON FOR EXAM: post op FINDINGS: Compared to 10/21/2023, there has been replacement/exchange of the dual-lumen right subclavian dialysi s catheter. The current catheter is positioned in the distal SVC. There are no kinks identified along the course of the catheter. Chronic interstitial lung opacities. No acute chest abnormality. XR/XR chest 1V portable [id number] IMPRESSION: Replacement/exchange of dialysis catheter as above.
[2023-10-22] MEDS: dextrose 50% syringe 50 mL IVP (08:45)
--- NOTE | 2023-10-22 08:48 | PM.OP ---
Operative Report Date of procedure: October 22, 2023 Pre-op diagnosis: PermCath malfunction Post-op diagnosis: same Procedure done: PermCath removal Permacath insertion Intraoperative interpretation of fluoroscopy Implants: 23 cm PermCath Specimens removed/disposition: None Surgeon: Alcides Alicia DO Anesthesia: MAC and Local Estimated blood loss (mL): 5 Complications: None apparent Brief History: This is a 48-year-old gentleman who presented to the hospital after pulling his PermCath partially out. He was sent to the hospital from the dialysis center. PermCath removal and PermCath insertion was indicated. The risks and benefits were explained and documented. Informed consent was obtained. Procedure: Patient was taken to the operating room and placed supine on the operating room table. All bony prominences were padded. He was given IV sedation and monitored throughout the case by the anesthesia personnel. SCDs were placed and turned on. The arms were tucked to the side. Patient received Vancomycin preoperatively IV. Patient was placed into Trendelenburg and under Valsalva, the existing PermCath was removed with steady constant traction. Pressure was held over the internal jugular insertion site for 5 minutes. The bilateral chest wall was prepped and draped in usual sterile fashion using chlorhexidine base prep. Sterile drapes were applied. We did procedure pause prior to beginning. An 18 gauge needle was placed in the right internal jugular vein under ultrasound guidance. Dark, nonpulsatile blood was aspirated. Multiple attempts were made to pass the guidewire into the internal jugular vein without success. Decision was then made to switch to right subclavian access. While in Trendelenburg, the 18-gauge needle was used to access the subclavian vein. Dark red nonpulsatile blood was returned. A guidewire was placed through the needle centrally toward the atrial/vena caval junction. Fluoroscopy visualized good placement. The needle was removed and the guidewire was clipped to the drape with a hemostat. Further local anesthetic was infiltrated in the soft tissues of the right chest wall and a #15 blade was used to make a vertical skin incision. A #15 blade was used to make a small skin erma around the guidewire insertion area. The permacath tubing was tunneled through the subcutaneous tissues up to the needle insertion location. Serial dilators were used to serially dilate over the guidewire . A dilator with a peel-away sheath was placed over the guidewire and placed centrally. The guidewire was removed as well as the dilator and the permacath was fed into the split sheath. The split sheath was removed. Both ports were aspirated to reveal dark blood and were flushed with saline only as the patient has a heparin allergy. Final fluoroscopy visualization showed no kink in the catheter and the tip of the permacath tubing in the right atrium. There was no obvious pneumothorax.. Both skin incisions were thoroughly irrigated and suctioned dry. Meticulous hemostasis noted. The subclavian vein access site was closed with 4-0 Monocryl in a subcuticular fashion. The skin overlying the permacath was closed in a similar manner. The permacath was then sutured into place using 2-0 nylon in a simple interrupted fashion. skin glue was applied as a topical dressing. This was allowed to dry. Patient was awakened from anesthesia and transferred via her cart to the recovery room in stable condition. All needle, sponge, and instrument counts were correct per the operating personnel x2 counts.
--- NOTE | 2023-10-22 09:00 | ANE.PACU2 ---
Inpatient post-anesthesia follow up: Airway intact: Yes Vital signs: Temperature 98.4 F Pulse Rate 90 Respiratory Rate 17 Blood Pressure 105/80 Pulse Oximetry 90 Oxygen Delivery Me thod Simple Mask Oxygen Flow Rate 8 Fraction of Inspir ed Oxygen Hydration adequate: Yes Nausea and vomiting: No Pain level: 1 Mental status: Baseline
--- NOTE | 2023-10-22 09:17 | PC.NURSE ---
Per Dr. Crespo the pt is stable to transfer to room on [facility] and proceed with dialysis.
[2023-10-22 09:21] LABS: Glucose Point of Care 175 mg/dL (70-110)
[2023-10-22 09:21] LABS: Glucose Point of Care 47 mg/dL (70-110)
--- NOTE | 2023-10-22 09:21 | PC.NURSE ---
Addendum entered by Jodi Bella RN 10/22/23 09:23: Patient refusing to have telemetry in place at this time. BP is being monitored. Original Note: Received patient from PACU. Patient resting with eyes closed. Opens spontaneously to verbal stimuli. Assisted patient to comfortable position. OR site looks good. No s/s of bleeding or hematoma formation observed.
--- NOTE | 2023-10-22 09:43 | PC.CHAP ---
Pastoral Care Encounter/Spiritual Assessment Type of Contact [] Declined outpatient scheduler visit [] Patient/Family/Request visit [] Outpatient visit [] Follow-up visit [] Physician referral [] Code/Alert [] Routine visit [] Staff referral [] Actively dying [] Patient sleeping [] Family support [] [x] Out of room [] Palliative care [] [] Receiving care in room [] Pre-surgical visit [] Trauma [] Long length of stay [] ICU visit [] Other: Relational/Emotional Strength [] Patient feels connected with others/family/visitors/staff [] Distress [] Loneliness/isolation [] Abandonment Spirituality of Patient [] Person of Manjula [] Attends Sikhism of their Manjula [] Believes in Prayer [] Reads Bible or Druze materials [] There are Spiritual issues to be addressed Family Practice Doctor Interventions [] Prayer [] Active listening [] Non-anxious presence [] Spiritual/emotional support [] Crisis/trauma care [] Spiritual counseling [] Bereavement support [] Provided bereavement packet [] Provided Bible/devotional materials [] Provided toy/stuffed animal, coloring book to patient or family member [] Provided Communion [] Anointing/[place] [] Salvation [] Completed spiritual assessment [] Other: Impact on Illness or Injury [] Angry [] Fearful [] Anxious [] Often cries [] Exhaustion [] Unable to work [] Unable to attend lutheran [] Unable to walk/stand [] Unable to read [] Unable to drive [] Unable to eat/drink [] Unable to sleep [] Unable to be with family [] Patient intubated [] Other: Summary Time spent with patient
[2023-10-22 09:52] LABS: Glucose Point of Care 85 mg/dL (70-110)
--- NOTE | 2023-10-22 11:23 | PC.NURSE ---
Verified orders for both Protonix and Pepcid with Dr Day. Received order to discontinue Pepcid at this time. RBVO
[2023-10-22 11:28] LABS: Glucose Point of Care 75 mg/dL (70-110)
[2023-10-22 11:28] LABS: Glucose Point of Care 344 mg/dL (70-110)
--- NOTE | 2023-10-22 11:45 | PC.NURSE ---
BS for 1053 is not for this patient. IT is an INACCURATE measurement.
--- NOTE | 2023-10-22 12:25 | P.PN_ITS ---
Subjective 2 Subjective: Patient underwent dialysis catheter placement today morning. Patient did have hypoglycemia today morning after he received D10 and insulin for hyperkalemia. Blood pressures have been on the softer side since today morning. Cardizem drip was switched off last night for rate control. Vitals/I&O/Wt Last Vital Signs Temp 98.4 F 10/22/23 11:53 Pulse 90 10/22/23 11:53 Resp 17 10/22/23 11:53 BP 105/80 10/22/23 11:53 Pulse Ox 90 10/22/23 11:53 O2 Del Method Simple Mask 10/22/23 08:55 O2 Flow Rate 8 10/22/23 08:55 10/21/23 10/22/23 10/22/23 22:59 06:59 14:59 Intake Total 944.041 / 944.041 300.1 / 1244.141 441.5 / 441.5 Output Total 2 / 2 Balance 944.041 / 944.041 300.1 / 1244.141 439.5 / 439.5 Weight last 48 hrs Weight 83.143 kg Weight 82.072 kg Weight 83.098 kg Weight 83.915 kg Physical Exam 2 Narrative: General: No acute distress, drowsy postoperatively, following directions HEENT: PERRLA, pupils bilaterally equal and reactive Chest: Normal vesicular breath sounds, no added sounds, fine crackles bilateral lower zone CVS: S1-S2 irregularly irregular, pansystolic murmur at left intercostal space retrosternal, no tachycardia, no gallops, no rubs Abdomen: Soft, nontender, no organomegaly, bowel sounds present Neuro: No focal deficits, no facial deformity, AO x3, power 5/5 in all limbs Data 10/22/23 03:43 10/22/23 06:52 Micro: Microbiology 10/21/23 18:40 Blood Culture - Preliminary Blood SPECIMEN COLLECTED 10/21/23 13:45 Blood Culture - Preliminary Blood SPECIMEN COLLECTED A&P Assessment and plan (1) Uncontrolled hypertension: Goal blood pressure less than 140/90 mmHg with mean over 65. Labile blood pressures. Not sure of compliance at home. At home patient is supposed to be on hydralazine 100 mg 3 times daily, Imdur 120 mg oral daily, Coreg 6.25 mg twice daily. Given soft blood pressures for now we will hold off on antihypertensive other than rate controlling medications. Will restart medications keeping blood pressure in goal. (2) Displacement of vascular dialysis catheter: Dialysis catheter replaced. Restart Eliquis. (3) End stage chronic kidney disease: Nephrology consulted. Usual dialysis Thursday, redness, sliding (4) Atrial fibrillation with RVR: Rate controlled. For now continue with metoprolol 50 mg twice daily, change Cardizem dose to 60 mg 3 times daily. Plan Full code Renal dialysis diet, Protonix for PUD prophylaxis DVT prophylaxis: Eliquis 2.5 mg twice daily. Attestations 2 Medical Necessity Statement*: Requires further hospitalization for management of labile blood pressures in a patient who underwent dialysis catheter placement because of displaced vascular access, end-stage renal disease on chronic hemodialysis Diagnoses Uncontrolled hypertension I10 Displacement of vascular dialysis catheter T82.42XA End stage chronic kidney disease N18.6 Atrial fibrillation with RVR I48.91
[2023-10-22] MEDS: hyDRALAzine 50 mg Tablet PO ×2 (15:02→20:11)
[2023-10-22] MEDS: dilTIAZem 60 mg Tablet PO ×2 (15:02→20:13)
[2023-10-22] MEDS: apixaban 5 mg Tablet 2.5 MG PO (17:11)
[2023-10-22] MEDS: pantoprazole DR 40 mg Tablet PO (17:12)
[2023-10-22 17:25] LABS: Glucose Point of Care 127 mg/dL (70-110)
[2023-10-22] MEDS: acetaminophen 325 mg Tablet 650 MG PO (19:28)
--- NOTE | 2023-10-22 19:32 | P.CONIM_ITS ---
Providers/Reason For Consult 2 Consulting Physician/Specialty*: kommana/Nephrology Reason for Consult*: ESRD Attending Physician: Lionel Day MD Primary Care Provider: Ras Joy History of Present Illness History of Present Illness Leopoldo Schaefer is a 48 year old male Patient is a 48-year-old male with past medical history of hypertension, A-fib, end-stage renal disease on dialysis per Thursday schedule presented to the emergency department due to HD catheter malfunction with cuff exposure. Patient was also found to be in rapid A-fib and was placed on Cardizem drip. P HD catheter was replaced. Patient currently denies any complaints. Review of Systems 2 Narrative: Negative Medications/Allergies Home Medications Medication Instructions Recorded Confirmed Last Taken Type vit B,C-folic ac 800 mcg-zinc 12.5 1 tab PO DAILY 06/09/19 10/22/23 1 Day Ago History mg-selen-D3 2,000 unit-vit E ~10/21/23 tablet (RenaPlex-D) Home oxygen #1 ea 08/07/20 10/22/23 Unknown Rx acetaminophen 500 mg tablet 1,000 mg PO Q4H PRN Pain 02/15/21 10/21/23 Unknown History diltiazem HCl 240 mg 240 mg PO QAM 10/14/21 10/21/23 10/21/23 History capsule,extended release 24 hr ondansetron 4 mg disintegrating 4 mg PO Q8H PRN nausea and 04/16/22 10/22/23 Unknown Rx tablet vomiting #30 tabs atorvastatin 40 mg tablet 40 mg PO BEDTIME #30 tabs 05/16/22 10/21/23 1 Day Ago Rx ~10/20/23 budesonide-formoterol HFA 160 2 puff inhalation BID 30 days 05/16/22 10/21/23 Unknown Rx mcg-4.5 mcg/actuation aerosol #10.2 grams inhaler (Symbicort) hydralazine 100 mg tablet 100 mg PO TID #90 tabs 05/16/22 10/22/23 1 Day Ago Rx ~10/21/23 isosorbide mononitrate 120 mg 120 mg PO QAM #30 tabs 05/16/22 10/22/23 1 Day Ago Rx tablet,extended release 24 hr ~10/21/23 pantoprazole 40 mg tablet,delayed 40 mg PO BID #180 tabs 05/16/22 10/22/23 1 Day Ago Rx release ~10/21/23 citalopram 20 mg tablet 20 mg PO QAM #30 tabs 09/08/22 10/21/23 10/21/23 Rx trazodone 150 mg tablet 150 mg PO BEDTIME #90 tabs 09/08/22 10/22/23 2 Days Ago Rx ~10/20/23 apixaban 5 mg tablet (Eliquis) 2.5 mg PO BID 09/14/23 10/21/23 10/21/23 History carvedilol 6.25 mg tablet 6.25 mg PO BID 09/14/23 10/21/23 1 Day Ago History ~10/20/23 furosemide 80 mg tablet 80 mg PO BID 09/14/23 10/21/23 1 Day Ago History ~10/20/23 hydralazine 25 mg tablet 25 mg PO TID #90 tabs 09/16/23 10/21/23 1 Day Ago Rx ~10/20/23 Allergies Allergy/AdvReac Type Severity Reaction Status Date / Time lisinopril Allergy swelling Verified 08/05/22 15:12 Penicillins Allergy ALGY-Hives Verified 08/05/22 15:12 tramadol Allergy ALGY-Hives Verified 08/05/22 15:12 Current Medications Generic Name Dose Route Start Last Admin Trade Name Staci PRN Reason Stop Dose Admin Acetaminophen 650 mg 10/21/23 16:24 10/22/23 19:28 Acetaminophen 325 Mg Tablet PO 650 mg Q6H PRN Administration Mild/Mod Pain Or Temp >/= 101 Apixaban 2.5 mg 10/22/23 18:00 10/22/23 17:11 Apixaban 5 Mg Tablet PO 2.5 mg BID FRANCISCO Administration Citalopram Hydrobromide 20 mg 10/22/23 06:00 10/22/23 06:02 Citalopram 20 Mg Tablet PO 20 mg QAM FRANCISCO Administration Diltiazem HCl 60 mg 10/22/23 15:00 10/22/23 15:02 Diltiazem 60 Mg Tablet PO 60 mg TID FRANCISCO Administration Hydralazine HCl 100 mg 10/21/23 21:00 10/21/23 20:42 Hydralazine 50 Mg Tablet PO 100 mg TID FRANCISCO Administration Hydralazine HCl 10 mg 10/21/23 16:28 10/21/23 16:57 Hydralazine 20 Mg/Ml Inj 1 Ml IVP 10 mg Q4H PRN Administration SBP More than 160 mmhg Hydralazine HCl 50 mg 10/22/23 15:00 10/22/23 15:02 Hydralazine 50 Mg Tablet PO 50 mg TID FRANCISCO Administration Isosorbide Mononitrate 120 mg 10/22/23 06:00 10/22/23 06:02 Isosorbide Mononitrate Er 60 Mg Tablet PO 120 mg QAM FRANCISCO Administration Metoprolol Tartrate 50 mg 10/21/23 21:00 10/21/23 20:43 Metoprolol Tartrate 50 Mg Tablet PO 50 mg BID@0900,2100 FRANCISCO Administration Pantoprazole Sodium 40 mg 10/21/23 18:00 10/22/23 17:[address] 40 Mg Tablet PO 40 mg BID FRANCISCO Administration PFSH Acute 2 PFSH: Medical History Uncontrolled hypertension Hypoglycemia Atrial fibrillation with RVR COPD exacerbation Pulmonary edema Non-compliance with renal dialysis End stage renal disease Anxiety and depression Pneumonia Obstructive sleep apnea Allergic dermatitis ESRD (end stage renal disease) Pleural effusion Dialysis patient Hypertensive emergency Atrial fibrillation/flutter Chest pain Elevated troponin Resistant hypertension Paroxysmal atrial fibrillation with RVR End stage chronic kidney disease Anemia Diastolic CHF Sebaceous cyst GERD (gastroesophageal reflux disease) Insomnia COPD (chronic obstructive pulmonary disease) Reports he is on 4 L of oxygen at home Hypoxia Anxiety and depression Lower respiratory tract infection Encounter to establish care Vitamin D deficiency Hypertension CRF (chronic renal failure) Surgical History S/P hemodialysis catheter insertion H/O hand surgery right hand with hardware H/O circumcision Presence of peritoneal dialysis catheter S/P dialysis catheter insertion (12/12/19) Removed on 04/04/2020 Family History Other Adopted Denies family history of Anesthesia complication Bleeding disorder Social History Smoking and tobacco/nicotine status: current every day tobacco/nicotine user (1ppd X26 years) cigarettes [ Other cigarette details: On and off quitting and restarting] Alcohol intake: never Substance/Drug Use: never Household members: significant other Marital status: Single Current occupational status: disabled Vitals/I&O/Wt Last Vital Signs Temp 98.6 F 10/22/23 16:00 Pulse 84 10/22/23 16:00 Resp 16 10/22/23 16:00 BP 157/110 10/22/23 16:00 Pulse Ox 96 10/22/23 16:00 O2 Del Method Simple Mask 10/22/23 08:55 O2 Flow Rate 8 10/22/23 08:55 10/22/23 10/22/23 10/22/23 06:59 14:59 22:59 Intake Total 300.1 / 1244.141 921.5 / 921.5 480 / 1401.5 Output Total 2 / 2 0 / 2 Balance 300.1 / 1244.141 919.5 / 919.5 480 / 1399.5 Weight last 48 hrs Weight 83.143 kg Weight 82.072 kg Weight 83.098 kg Weight 83.915 kg Physical Exam 2 Narrative: Patient is awake alert, no distress HEENT S1-S2 regular rate and rhythm per report Lungs clear per report No pedal edema Data 10/22/23 03:43 10/22/23 06:52 Micro: Microbiology 10/21/23 18:40 Blood Culture - Preliminary Blood NEGATIVE TO DATE 10/21/23 13:45 Blood Culture - Preliminary Blood NEGATIVE TO DATE A&P Assessment and plan (1) End stage kidney disease: Plan 1. End-stage renal disease: On HD per MWF schedule, no indication for HD today, plan for HD tomorrow, ultrafiltration as tolerated. Patient has aVF which is not ready to use yet, now has tunneled catheter 2. HD catheter malfunction: Catheter replaced 3. Rapid A-fib 4. Anemia: Hemoglobin 10.4, monitor 5. Hypertension, blood pressure controlled Patient evaluated using audiovisual cart. Time spent 40 minutes. Consult Attestations 2 Medical Necessity Statement: Per medicine team Coding Level of Care Code Acute Code for Chg Fwd Diagnoses End stage kidney disease N18.6
[2023-10-22] MEDS: metoprolol tartrate 50 mg Tablet PO (20:11)
[2023-10-22] MEDS: HYDROcodone-acetaminophen 7.5-325 mg Tablet 1 TAB PO (20:12)
[2023-10-22] MEDS: trazodone 100 mg Tablet PO (20:12)
[2023-10-22 20:20] LABS: Glucose Point of Care 91 mg/dL (70-110)
[2023-10-23] MEDS: HYDROcodone-acetaminophen 7.5-325 mg Tablet 1 TAB PO ×2 (01:53→10:20)
[2023-10-23 03:50] VITALS: BP 132/80; PULSE 63; RESP 20; TEMP 36.6; O2SAT 93
--- NOTE | 2023-10-23 04:27 | PC.NURSE ---
patient removed dressing over new permacath placement early this shift, this nurse informed on the infection risk it posed. Patient me place a new dressing it is still on at this time. Patient also refused morning labs this AM. Stated he is not getting poked again while he is here, stated that he is going home today and they do not need blood.
[2023-10-23] MEDS: citalopram 20 mg Tablet PO (05:07)
--- NOTE | 2023-10-23 07:06 | PC.NURSE ---
Patient has refused labs multiple times this morning stating, I am going home today you do not need to poke me anymore. Instructed patient on need and plans for dialysis today. Patient verbalized understanding but continues to refuse.
[2023-10-23 07:18] VITALS: BP 153/100; PULSE 63; RESP 16; TEMP 36.4; O2SAT 99
[2023-10-23 08:00] VITALS: PULSE 69; O2SAT 98
[2023-10-23] MEDS: apixaban 5 mg Tablet 2.5 MG PO (08:34)
[2023-10-23] MEDS: b-complex-vitamin c Tablet 1 EACH PO (08:34)
[2023-10-23] MEDS: pantoprazole DR 40 mg Tablet PO (08:34)
[2023-10-23] MEDS: hyDRALAzine 50 mg Tablet PO (08:34)
[2023-10-23] MEDS: dilTIAZem 60 mg Tablet PO (08:34)
[2023-10-23] MEDS: metoprolol tartrate 50 mg Tablet PO (08:36)
--- NOTE | 2023-10-23 08:47 | PC.SOCIAL ---
IMM Update Pg. 2 of IMM updated; copy provided to patient at bedside.
--- NOTE | 2023-10-23 09:44 | PM.DCS ---
Discharge Providers Date of Admission: 10/21/23 16:12 Date of Discharge: October 23, 2023 Attending Provider at Admission: Lionel Day MD Attending Provider at Discharge: Lionel Day MD Consults: Telemetry nephrology Surgery: Dr. Alicia Primary Care Provider: Ras Joy Diagnoses at Discharge Discharge Diagnosis (1) End stage kidney disease: Status: Acute Reason for Visit Reason for Visit: dialysis cath displaced Hospital Course Hospital Course Leopoldo Schaefer is a 48 year old male with past medical history of hypertension, atrial fibrillation, CKD on hemodialysis Thursday, Thursday, Thursday was sent to the ER from hemodialysis center today because of displacement of HD catheter. In the ER he was found to have A-fib with RVR hence was placed on Cardizem drip. On seeing the patient he was on Cardizem drip at 7.5 with heart rate running in high 90s with blood pressure of 200 systolic. Patient was given his home oral dose of medications. As per patient his blood pressures usually run over 200 at home. He denies any chest pain, nausea counting difficulty in breathing for now. Patient was admitted to the hospital further evaluation and management. On admission was started on Cardizem drip which was later transitioned to oral Cardizem. Surgery was consulted and he underwent replacement of dialysis catheter on 10/21. During hospitalization he was found to have labile blood pressures for which his antihypertensives were adjusted. He has been discharged in hemodynamically stable condition after dialysis on 10/22 on adjusted antihypertensive with Cardizem to 40 mg oral daily, metoprolol 50 mg twice daily, hydralazine 75 mg twice daily with advised to take Imdur 120 mg daily as needed for systolic blood pressure more than 150 mmHg. He is to continue with hemodialysis sessions as before. Physical Exam Narrative: General: No acute distress, drowsy postoperatively, following directions HEENT: PERRLA, pupils bilaterally equal and reactive Chest: Normal vesicular breath sounds, no added sounds, fine crackles bilateral lower zone CVS: S1-S2 irregularly irregular, pansystolic murmur at left intercostal space retrosternal, no tachycardia, no gallops, no rubs Abdomen: Soft, nontender, no organomegaly, bowel sounds present Neuro: No focal deficits, no facial deformity, AO x3, power 5/5 in all limbs Discharge Data Studies Completed and Pending Completed Studies During Hospitalization Category Date Time Status CXRP [XR chest 1V portable [id number]] Stat Exams 10/21/23 11:47 Completed XR chest 1V portable [id number] Routine Exams 10/22/23 08:19 Completed Pending at discharge Category Date Time Status C-arm Fluoroscopy [id number] Routine Exams 10/22/23 06:43 Taken Blood Culture Stat Lab 10/21/23 18:40 Results Hepatitis B Surface AB Routine Lab 10/23/23 06:23 Received Hepatitis B Surface Antigen Routine Lab 10/23/23 06:23 Received Urinalysis Routine Lab 10/21/23 16:24 Uncollected Radiology Impressions Chest X-Ray 10/22/23 08:19 IMPRESSION: Replacement/exchange of dialysis catheter as above. Laboratory Results WBC 8.86 10^3/uL (3.29-11.43) 10/22/23 03:43 RBC 3.31 10^6/uL (3.85-5.65) L 10/22/23 03:43 Hgb 10.40 g/dL (11.27-16.99) L 10/22/23 03:43 Hct 33.9 % (37-53) L 10/22/23 03:43 MCV 102.4 fl (82-101) H 10/22/23 03:43 MCH 31.4 pg (27-33) 10/22/23 03:43 MCHC 30.7 g/dL (30-55) 10/22/23 03:43 RDW 15.6 % (12.1-15.1) H 10/22/23 03:43 Plt Count 355 10^3/cmm (157-399) 10/22/23 03:43 MPV 9.5 fL (7.4-10.4) 10/22/23 03:43 Neut % (Auto) 74.5 % 10/22/23 03:43 Lymph % (Auto) 9.1 % 10/22/23 03:43 [place] % (Auto) 9.8 % 10/22/23 03:43 Eos % (Auto) 5.2 % 10/22/23 03:43 Baso % (Auto) 0.9 % 10/22/23 03:43 Neut # (Auto) 6.60 10^3/uL (1.8-7.7) 10/22/23 03:43 Lymph # (Auto) 0.8 10^3/uL (0.8-4.8) 10/22/23 03:43 [place] # (Auto) 0.9 10^3/uL (0.2-0.9) 10/22/23 03:43 Eos # (Auto) 0.5 10^3/uL (0.0-0.8) 10/22/23 03:43 Baso # (Auto) 0.1 10^3/uL (0.0-0.1) 10/22/23 03:43 Nucleated RBC % (auto) 0 % 10/22/23 03:43 Nucleated RBCs # 0.0 /100WBC 10/22/23 03:43 Sodium 138 mmol/L (136-145) 10/22/23 06:52 Potassium 5.2 mmol/L (3.5-5.1) H 10/22/23 06:52 Chloride 98 mmol/L (98-107) 10/22/23 06:52 Carbon Dioxide 25 mmol/L (22-29) 10/22/23 06:52 Anion Gap 20.2 (5-19) H 10/22/23 06:52 BUN 52 mg/dL (6-20) H 10/22/23 06:52 Creatinine 8.8 mg/dL (0.7-1.2) H* 10/22/23 06:52 GFR Calculation 6.4 mL/min (90-130) L 10/22/23 06:52 Glucose 35 mg/dL (65-115) L* 10/22/23 06:52 POC Glucose 91 mg/dL (70-110) 10/22/23 20:13 Estimat Average Glucose 85 10/22/23 03:43 Hemoglobin A1c 4.6 % (4.0-6.0) 10/22/23 03:43 Calculated Osmolality 297 mOsm/kg (285-295) H 10/22/23 06:52 Lactic Acid 0.6 mmol/L (0.5-2.2) 10/21/23 12:10 Calcium 8.6 mg/dL (8.5-10.5) 10/22/23 06:52 Phosphorus 6.3 mg/dL (2.5-4.5) H 10/22/23 03:43 Magnesium 1.8 mg/dL (1.7-2.3) 10/22/23 03:43 Iron 34 ug/dL (59-158) L 10/21/23 12:10 TIBC 192 mcg/dl 10/21/23 12:10 % Saturation 17.7 % (20-50) L 10/21/23 12:10 Unsat Iron Binding 158 ug/dL (112-347) 10/21/23 12:10 Total Bilirubin 0.4 mg/dL (0.15-1.2) 10/22/23 03:43 AST 9 U/L (0-40) 10/22/23 03:43 ALT 7 U/L (0-41) 10/22/23 03:43 Alkaline Phosphatase 131 U/L (40-130) H 10/22/23 03:43 Total Protein 7.1 g/dL (6.6-8.7) 10/22/23 03:43 Albumin 3.5 g/dL (3.5-5.2) 10/22/23 03:43 Globulin 3.6 g/dL (1.3-4.6) 10/22/23 03:43 Triglycerides 43 mg/dL (0-150) 10/22/23 03:43 Cholesterol 100 mg/dL (0-200) 10/22/23 03:43 LDL Cholesterol, Calc 46 mg/dL (50-129) L 10/22/23 03:43 HDL Cholesterol 45 mg/dL (60-100) L 10/22/23 03:43 LDL/HDL Ratio 1.02 RATIO (0.00-3.22) 10/22/23 03:43 Cholesterol/HDL Ratio 2.22 mg/dL (1.0-5.00) 10/22/23 03:43 Vitamin B12 411 pg/mL (232-1245) 10/21/23 12:10 Folate 5.0 ng/mL (4.5-32.2) 10/22/23 03:43 Procalcitonin 0.85 ng/mL (0-0.5) H 10/21/23 12:10 TSH 1.64 uIU/mL (0.27-4.20) 10/21/23 12:10 Vitals Last Vital Signs Temp 97.5 F L 10/23/23 07:18 Pulse 69 10/23/23 08:00 Resp 16 10/23/23 07:18 BP 153/100 10/23/23 07:18 Pulse Ox 98 10/23/23 08:00 O2 Del Method Nasal Cannula 10/23/23 08:00 O2 Flow Rate 2.5 10/23/23 08:00 Discharge Plan Discharge Patient Disposition: Home Condition: Stable Prescriptions: New metoprolol tartrate 50 mg Tablet 50 mg PO BID@0900,2100 30 Days Qty: 60 0RF Continued RenaPlex-D 800 mcg-12.5 mg -2,000 unit tablet 1 tab PO DAILY (DME) Home oxygen See Rx Instructions .Route .MEDSUPPLY Qty: 1 0RF Rx Instructions: As directed ondansetron 4 mg tablet,disintegrating 4 mg PO Q8H PRN (Reason: nausea and vomiting) Qty: 30 1RF atorvastatin 40 mg tablet 40 mg PO BEDTIME Qty: 30 0RF pantoprazole 40 mg tablet,delayed release (DR/EC) 40 mg PO BID Qty: 180 1RF budesonide-formoterol [Symbicort] 160-4.5 mcg/actuation HFA aerosol inhaler 2 puff inhalation BID 30 Days Qty: 10.2 2RF trazodone 150 mg tablet 150 mg PO BEDTIME Qty: 90 3RF citalopram 20 mg tablet 20 mg PO QAM Qty: 30 5RF acetaminophen 500 mg Tablet 1,000 mg PO Q4H PRN (Reason: Pain) diltiazem HCl 240 mg capsule,extended release 24hr 240 mg PO QAM furosemide 80 mg tablet 80 mg PO BID Eliquis 5 mg tablet 2.5 mg PO BID Changed hydralazine 25 mg Tablet 75 mg PO TID Qty: 90 3RF isosorbide mononitrate 120 mg tablet extended release 24 hr 120 mg PO QAM PRN (Reason: Sbp more than 150 mmhg) Qty: 30 0RF Discontinued hydralazine 100 mg tablet 100 mg PO TID Qty: 90 1RF carvedilol 6.25 mg tablet 6.25 mg PO BID Discharge Orders: Discharge Order (Routine); Ordered 10/23/23 Ordered By: Lionel Day Referrals: Ras Joy [Primary Care Provider] - 10/26/23 10:00 am (Your follow up appointment is at the [facility], [facility]. ) Discharge Diet: Regular Discharge Activity: Resume usual activity and Increase activity as tolerated Patient Instructions: Metoprolol (By mouth) (Lopressor, Toprol XL), Acute Wound Care (DC), Opioid Safety, Post Anesthesia Care Activity Restrictions/Additional Instructions: Check blood pressure daily at home continue to pressure diary. Blood pressure less than 140/90 mmHg. Send medication doses have been changed. Hydralazine dose has been changed to 75 mg 3 times a day. Instead of Coreg take metoprolol 50 mg twice daily. Take Imdur 120 mg daily as needed for systolic blood pressure of more than 150 mmHg. Discharge Attestations Time Spent in Discharge Care*: greater than 30 min Specific Discharge Activities: educating patient, discussing with pcp/other providers, discussing with case finisher/social workers/dc planners, documenting/other paperwork and evaluating patient/reviewing data Status at Discharge: Cognitive status at discharge: cognitively intact, Behavioral status at discharge: cooperative, Functional status at discharge: uses cane/walker, Overall status at discharge: patient is back to baseline Quality Metrics Clinical Quality Measures [ No reported AMI, CVA or VTE this stay] Coding Level of Care Code 94331 Total time (in minutes) for Discharge: 60 Diagnoses End stage kidney disease N18.6
[2023-10-23 10:13] LABS: Hepatitis B Surface Antigen Non-Reactive (Nonreactive)
--- NOTE | 2023-10-23 10:35 | PC.NURSE ---
Patient taken to dialysis by bed.
--- NOTE | 2023-10-23 10:49 | PC.CHAP ---
Pastoral Care Encounter/Spiritual Assessment Type of Contact [] Declined cake former visit [] Patient/Family/Request visit [] Outpatient visit [] Follow-up visit [] Physician referral [] Code/Alert [] Routine visit [] Staff referral [] Actively dying [x] Patient sleeping [] Family support [] [] Out of room [] Palliative care [] [] Receiving care in room [] Pre-surgical visit [] Trauma [] Long length of stay [] ICU visit [] Other: Relational/Emotional Strength [] Patient feels connected with others/family/visitors/staff [] Distress [] Loneliness/isolation [] Abandonment Spirituality of Patient [] Person of [place] [] Attends Jewish of their [place] [] Believes in Prayer [] Reads Bible or Restoration materials [] There are Spiritual issues to be addressed [employer] Judge Interventions [] Prayer [] Active listening [] Non-anxious presence [] Spiritual/emotional support [] Crisis/trauma care [] Spiritual counseling [] Bereavement support [] Provided bereavement packet [] Provided Bible/devotional materials [] Provided toy/stuffed animal, coloring book to patient or family member [] Provided Communion [] Anointing/[place] [] Salvation [] Completed spiritual assessment [] Other: Impact on Illness or Injury [] Angry [] Fearful [] Anxious [] Often cries [] Exhaustion [] Unable to work [] Unable to attend nondenominational [] Unable to walk/stand [] Unable to read [] Unable to drive [] Unable to eat/drink [] Unable to sleep [] Unable to be with family [] Patient intubated [] Other: Summary Time spent with patient
[2023-10-23 11:37] VITALS: BP 163/105; PULSE 72; RESP 19; TEMP 35.9
--- NOTE | 2023-10-23 11:40 | PC.HD ---
On arrival to pt's room, dialysis catheter found without dressing. Pt's nurse states he won't keep a dressing on and this was the case on his last hospital admission as well. After transport to dialysis room site was cleaned with CHG, Skin Prep applied and allowed to dry, and SAE and Covaderm dressing applied. Pt re-educated on the need to keep dressing on and clean.
[2023-10-23 12:23] VITALS: PULSE 72; RESP 19; TEMP 35.9
--- NOTE | 2023-10-23 15:18 | P.PN_ITS ---
Subjective 2 Subjective: getting HD Medications: Reviewed: Yes Vitals/I&O/Wt Last Vital Signs Temp 96.6 F L 10/23/23 12:23 Pulse 72 10/23/23 12:23 Resp 19 H 10/23/23 12:23 BP 163/105 10/23/23 11:37 Pulse Ox 98 10/23/23 08:00 O2 Del Method Nasal Cannula 10/23/23 08:00 O2 Flow Rate 2.5 10/23/23 08:00 10/23/23 10/23/23 10/23/23 06:59 14:59 22:59 Intake Total 220 / 1.5 120 / 120 Output Total 0 / 2 Balance 220 / 9.5 120 / 120 Weight last 48 hrs Weight 86.273 kg Weight 86.137 kg Weight 83.143 kg Weight 82.072 kg Weight 83.098 kg Physical Exam 2 Narrative: Patient is awake alert, no distress HEENT S1-S2 regular rate and rhythm per report Lungs clear per report No pedal edema Data 10/22/23 03:43 10/22/23 06:52 Micro: Microbiology 10/21/23 18:40 Blood Culture - Preliminary Blood NEGATIVE TO DATE 10/21/23 13:45 Blood Culture - Preliminary Blood NEGATIVE TO DATE A&P Assessment and plan (1) End stage kidney disease: Plan 1. End-stage renal disease: On HD per MW schedule, HD today, ultrafiltration as tolerated. Patient has aVF which is not ready to use yet, now has tunneled catheter 2. HD catheter malfunction: Catheter replaced 3. Rapid A-fib 4. Anemia: Hemoglobin 10.4, monitor 5. Hypertension, blood pressure controlled Patient evaluated using audiovisual cart. Time spent 40 minutes. Attestations 2 Medical Necessity Statement*: per leo Coding Level of Care Code Acute Code for Chg Fwd Diagnoses End stage kidney disease N18.6
[2023-10-23 15:36] VITALS: BP 191/101; PULSE 95; RESP 18; TEMP 36
--- NOTE | 2023-10-23 15:36 | PC.NURSE ---
Patient discharged to home. Instruction provided. Patient refused to follow instructions until he speaks with his primary MD stating, every time they change something up and it sends me here. [facility] provided portable oxygen for discharge. Patient left ambulatory to [facility] ride with [facility].
== END 2023-10-23 15:38 | disposition home or self-care (01) | DRG 698 ==
LOC: ER 13:39 → CSU 15:23
PROVIDERS: Hospitalist; Internal Medicine; Surgery; Admitting Provider Student in an Organized Health Care Education/Training Program; Emergency Provider Emergency Medicine; PCP Family Medicine; Visit Provider Student in an Organized Health Care Education/Training Program
PROC: 05PYX3Z Removal of Infusion Device from Upper Vein, External Approach (ICD-10-PCS; principal; 2023-10-22 07:00)
DX: T82.42XA Displacement of vascular dialysis catheter, initial encounter (principal); N18.6 End stage renal disease; J81.1 Chronic pulmonary edema; I50.32 Chronic diastolic (congestive) heart failure; I13.2 Hypertensive heart and chronic kidney disease with heart failure and with stage 5 chronic kidney disease, or end stage renal disease; I48.20 Chronic atrial fibrillation, unspecified; Y99.9 Unspecified external cause status; Z99.81 Dependence on supplemental oxygen; Z79.01 Long term (current) use of anticoagulants; J44.9 Chronic obstructive pulmonary disease, unspecified; F41.9 Anxiety disorder, unspecified; F32.A Depression, unspecified; G47.33 Obstructive sleep apnea (adult) (pediatric); D63.1 Anemia in chronic kidney disease; K21.9 Gastro-esophageal reflux disease without esophagitis; F17.210 Nicotine dependence, cigarettes, uncomplicated; Z99.2 Dependence on renal dialysis; E87.5 Hyperkalemia; E16.2 Hypoglycemia, unspecified
CPT/HCPCS: 36415; 36416; 71045; 76000; 77001; 80048; 80053; 80061; 82607; 82746; 82962; 83036; 83540; 83550; 83605; 83735; 84100; 84145; 84443; 85025; 86706; 87040; 87340; 90935; 93005; 94664; 96365; 96375; 99285; C1750; G0378; J0360; J0612; J1644; J1815; J2704; J3370; J3490; J7030; J7799; Q3014

== ENCOUNTER 2023-11-08 14:00 | Emergency (ER) | payer MEDICARE, SELFPAY ==
--- NOTE | 2023-11-08 14:05 | XRR_ITS ---
PROCEDURE INFORMATION: Exam: XR Chest Exam date and time: 11/08/2023 2:28 PM Age: 48 years old Clinical indication: Dyspnea; Additional info: SOB TECHNIQUE: Imaging protocol: Radiologic exam of the chest. Views: 1 view. COMPARISON: CR XR chest 1V portable [id number] 10/22/2023 8:39 AM FINDINGS: Tubes, catheters and devices: A right-sided tunneled central venous dialysis catheter is in good position. Lungs: Both lungs demonstrate prominent diffuse interstitial fibrosis but I see no dense consolidation or mass. Chronic pleural thickening involves both lung bases. Pleural spaces: See Lungs finding. Heart/Mediastinum: Moderate cardiomegaly is noted. Bones/joints: Unremarkable. XR/XR chest 1V portable [id number] IMPRESSION: 1. No acute findings. 2. Cardiomegaly with chronic lung and pleural changes again noted
[2023-11-08 14:19] VITALS: BP 200/127; PULSE 130; RESP 20; TEMP 36.6; O2SAT 97; BMI 26.5
--- NOTE | 2023-11-08 14:20 | ED_ITS ---
HPI - General Adult 2 General: Chief complaint: Shortness of Breath/Dyspnea Stated complaint: RESP. DISTRESS Time Seen by Provider: 11/08/23 14:01 Source: patient and EMS Mode of arrival: EMS Limitations: no limitations History of Present Illness: 48-year-old male with a history of end-s tage renal disease along with hypertension and A-fib with RVR. He states that he received dialysis yesterday and feels like they did not remove enough and he wants more dialysis. Patient refused IV initially refused IV here states that he just want dialysis in the ER explained to him that we cannot just do dialysis ER not needed to check blood work. He is able speak full senses here he is in A-fib with RVR heart rate in 130s he wears 6 L oxygen at all times he is in no increased distress here speaking full sentences. Associated symptoms: Reports dyspnea; Deny chest pain, headache(s), nausea, rash or vomiting Related Data Home Medications Medication Instructions Recorded Confirmed vit B,C-folic ac 800 mcg-zinc 12.5 1 tab PO DAILY 06/09/19 10/22/23 mg-selen-D3 2,000 unit-vit E tablet (RenaPlex-D) acetaminophen 500 mg tablet 1,000 mg PO Q4H PRN Pain 02/15/21 10/21/23 diltiazem HCl 240 mg 240 mg PO QAM 10/14/21 10/21/23 capsule,extended release 24 hr apixaban 5 mg tablet (Eliquis) 2.5 mg PO BID 09/14/23 10/21/23 furosemide 80 mg tablet 80 mg PO BID 09/14/23 10/21/23 Previous Rx's Medication Instructions Recorded Home oxygen #1 ea 08/07/20 ondansetron 4 mg disintegrating 4 mg PO Q8H PRN nausea and 04/16/22 tablet vomiting #30 tabs atorvastatin 40 mg tablet 40 mg PO BEDTIME #30 tabs 05/16/22 budesonide-formoterol HFA 160 2 puff inhalation BID 30 days 05/16/22 mcg-4.5 mcg/actuation aerosol #10.2 grams inhaler (Symbicort) pantoprazole 40 mg tablet,delayed 40 mg PO BID #180 tabs 05/16/22 release citalopram 20 mg tablet 20 mg PO QAM #30 tabs 09/08/22 trazodone 150 mg tablet 150 mg PO BEDTIME #90 tabs 09/08/22 hydralazine 25 mg tablet 75 mg (3 x 25 mg) PO TID #90 tabs 10/23/23 isosorbide mononitrate 120 mg 120 mg PO QAM PRN Sbp more than 10/23/23 tablet,extended release 24 hr 150 mmhg #30 tabs metoprolol tartrate 50 mg tablet 50 mg PO BID@0900,2100 30 days #60 10/23/23 tabs Allergies Allergy/AdvReac Type Severity Reaction Status Date / Time lisinopril Allergy swelling Verified 08/05/22 15:12 Penicillins Allergy ALGY-Hives Verified 08/05/22 15:12 tramadol Allergy ALGY-Hives Verified 08/05/22 15:12 Review of Systems 2 Const: Denies: fever(s), chills, body aches or change in appetite ENMT: Denies: throat pain or dental pain Card: Denies: chest pain Resp: Reports: dyspnea GI: Denies: abdominal pain, nausea, vomiting or diarrhea Musc: Denies: neck pain or back pain Skin/Breast: Denies: rash Neuro: Denies: headache(s) PFSH ED 2 PFSH: Medical History Uncontrolled hypertension Hypoglycemia Atrial fibrillation with RVR COPD exacerbation Pulmonary edema Non-compliance with renal dialysis End stage renal disease Anxiety and depression Pneumonia Obstructive sleep apnea Allergic dermatitis ESRD (end stage renal disease) Pleural effusion Dialysis patient Hypertensive emergency Atrial fibrillation/flutter Chest pain Elevated troponin Resistant hypertension Paroxysmal atrial fibrillation with RVR End stage chronic kidney disease Anemia Diastolic CHF Sebaceous cyst GERD (gastroesophageal reflux disease) Insomnia COPD (chronic obstructive pulmonary disease) Reports he is on 4 L of oxygen at home Hypoxia Anxiety and depression Lower respiratory tract infection Encounter to establish care Vitamin D deficiency Hypertension CRF (chronic renal failure) Surgical History S/P hemodialysis catheter insertion H/O hand surgery right hand with hardware H/O circumcision Presence of peritoneal dialysis catheter S/P dialysis catheter insertion (12/12/19) Removed on 04/04/2020 Family History Other Adopted Denies family history of Anesthesia complication Bleeding disorder Social History Smoking and tobacco/nicotine status: current every day tobacco/nicotine user (1ppd X26 years) cigarettes [ Other cigarette details: On and off quitting and restarting] Alcohol intake: never Substance/Drug Use: never Household members: significant other Marital status: Single Current occupational status: disabled Physical Exam 2 Const: COMMON NORMALS: patient oriented x3 HENMT: COMMON NORMALS: normocephalic and atraumatic HEAD & SCALP: n ormocephalic and atraumatic Eye: COMMON NORMALS: Equal, round and reactive pupils present and EOMs intact bilaterally PUPIL: Yes Equal, round and reactive pupils present Neck/C-Spine: COMMON NORMALS: full ROM and supple Chest: COMMONS NORMALS: normal inspection of the chest Resp: COMMON NORMALS: normal respiratory effort, No retractions, No use of accessory muscles and clear to auscultation bilaterally AUSCULTATION: clear to auscultation bilaterally Cardio: RATE: tachycardic RHYTHM: abnormal rhythm irregularly irregular Extremity: COMMON NORMALS: normal to inspection and full ROM Neuro: COMMON NORMALS: patient oriented x3, moves all extremities and no focal motor deficits Psych: COMMON NORMALS: mental status grossly normal, Normal thought process present and cooperative THOUGHT PROCESS: Normal thought process present Skin: COMMON NORMALS: no rashes or lesions noted and no wounds GENERAL SKIN EXAM: no rashes or lesions noted Course 2 Vital Signs: Vital signs: Vital Signs Temperature 97.8 F 11/08/23 17:26 Pulse Rate 92 11/08/23 17:26 Respiratory Rate 20 H 11/08/23 17:26 Blood Pressure 166/118 11/08/23 17:26 Pulse Oximetry 97 11/08/23 17:26 Oxygen Delivery Me thod Nasal Cannula 11/08/23 17:17 Oxygen Flow Rate 6 11/08/23 15:08 [facility] - General Adult Medical Decision Making Patient presents with hypertension all A-fib he also has end-stage renal disease he has no signs of being fluid overloaded here he is 100% on his 6 L of oxygen his blood pressure and heart rates improved. He gets dialysis tomorrow I feel he is stable for discharge until his dialysis tomorrow return if worsening he understands agrees to plan Medical Records I reviewed the patient's medical records. Lab Data I reviewed the patient's lab results. 11/08/23 14:15 11/08/23 14:15 Radiology Impressions Chest X-Ray 11/08/23 14:05 IMPRESSION: 1. No acute findings. 2. Cardiomegaly with chronic lung and pleural changes again noted Laboratory Results WBC 7.26 10^3/uL (3.29-11.43) 11/08/23 14:15 RBC 3.27 10^6/uL (3.85-5.65) L 11/08/23 14:15 Hgb 10.10 g/dL (11.27-16.99) L 11/08/23 14:15 Hct 32.8 % (37-53) L 11/08/23 14:15 MCV 100.3 fl (82-101) 11/08/23 14:15 MCH 30.9 pg (27-33) 11/08/23 14:15 MCHC 30.8 g/dL (30-55) 11/08/23 14:15 RDW 14.7 % (12.1-15.1) 11/08/23 14:15 Plt Count 258 10^3/cmm (157-399) 11/08/23 14:15 MPV 9.2 fL (7.4-10.4) 11/08/23 14:15 Neut % (Auto) 76.1 % 11/08/23 14:15 Lymph % (Auto) 8.7 % 11/08/23 14:15 [place] % (Auto) 11.8 % 11/08/23 14:15 Eos % (Auto) 2.3 % 11/08/23 14:15 Baso % (Auto) 1.0 % 11/08/23 14:15 Neut # (Auto) 5.52 10^3/uL (1.8-7.7) 11/08/23 14:15 Lymph # (Auto) 0.6 10^3/uL (0.8-4.8) L 11/08/23 14:15 [place] # (Auto) 0.9 10^3/uL (0.2-0.9) 11/08/23 14:15 Eos # (Auto) 0.2 10^3/uL (0.0-0.8) 11/08/23 14:15 Baso # (Auto) 0.1 10^3/uL (0.0-0.1) 11/08/23 14:15 Nucleated RBC % (auto) 0 % 11/08/23 14:15 Nucleated RBCs # 0.0 /100WBC 11/08/23 14:15 PT 14.30 SECONDS (12.1-14.9) 11/08/23 14:15 INR 1.07 (0.8-1.2) 11/08/23 14:15 Sodium 137 mmol/L (136-145) 11/08/23 14:15 Potassium 5.9 mmol/L (3.5-5.1) H 11/08/23 14:15 Chloride 94 mmol/L (98-107) L 11/08/23 14:15 Carbon Dioxide 26 mmol/L (22-29) 11/08/23 14:15 Anion Gap 22.9 (5-19) H 11/08/23 14:15 BUN 61 mg/dL (6-20) H 11/08/23 14:15 Creatinine 9.0 mg/dL (0.7-1.2) H* 11/08/23 14:15 GFR Calculation 6.3 mL/min (90-130) L 11/08/23 14:15 Glucose 96 mg/dL (65-115) 11/08/23 14:15 Calculated Osmolality 301 mOsm/kg (285-295) H 11/08/23 14:15 Calcium 9.2 mg/dL (8.5-10.5) 11/08/23 14:15 Total Bilirubin 0.3 mg/dL (0.15-1.2) 11/08/23 14:15 AST 12 U/L (0-40) 11/08/23 14:15 ALT 9 U/L (0-41) 11/08/23 14:15 Alkaline Phosphatase 149 U/L (40-130) H 11/08/23 14:15 NT-Pro-B Natriuret Pep > 70339 pg/mL (0-125) H 11/08/23 14:15 Total Protein 7.7 g/dL (6.6-8.7) 11/08/23 14:15 Albumin 3.9 g/dL (3.5-5.2) 11/08/23 14:15 Globulin 3.8 g/dL (1.3-4.6) 11/08/23 14:15 All radiology interpretation(s) finalized by discharge Discharge Plan Discharge Patient Disposition: Home Clinical Impression: Atrial fibrillation with RVR, Hypertension, End stage kidney disease Condition: Stable Prescriptions: No Action RenaPlex-D 800 mcg-12.5 mg -2,000 unit tablet 1 tab PO DAILY (DME) Home oxygen See Rx Instructions .Route .MEDSUPPLY Qty: 1 0RF Rx Instructions: As directed ondansetron 4 mg tablet,disintegrating 4 mg PO Q8H PRN (Reason: nausea and vomiting) Qty: 30 1RF atorvastatin 40 mg tablet 40 mg PO BEDTIME Qty: 30 0RF pantoprazole 40 mg tablet,delayed release (DR/EC) 40 mg PO BID Qty: 180 1RF budesonide-formoterol [Symbicort] 160-4.5 mcg/actuation HFA aerosol inhaler 2 puff inhalation BID 30 Days Qty: 10.2 2RF trazodone 150 mg tablet 150 mg PO BEDTIME Qty: 90 3RF citalopram 20 mg tablet 20 mg PO QAM Qty: 30 5RF acetaminophen 500 mg Tablet 1,000 mg PO Q4H PRN (Reason: Pain) diltiazem HCl 240 mg capsule,extended release 24hr 240 mg PO QAM furosemide 80 mg tablet 80 mg PO BID Eliquis 5 mg tablet 2.5 mg PO BID metoprolol tartrate 50 mg Tablet 50 mg PO BID@0900,2100 30 Days Qty: 60 0RF hydralazine 25 mg Tablet 75 mg PO TID Qty: 90 3RF isosorbide mononitrate 120 mg tablet extended release 24 hr 120 mg PO QAM PRN (Reason: Sbp more than 150 mmhg) Qty: 30 0RF Discharge Orders: Discharge ED (Routine); Ordered 11/08/23 Ordered By: Florencia Null Referrals: Ras Joy [Primary Care Provider] - Discharge Diet: Advance as tolerated Discharge Activity: Resume usual activity Patient Instructions: A-fib (Atrial Fibrillation) (ED), Hypertension (ED) Coding Level of Care Code ED Medical Instrument Cable Fabricator for Shilpa Phillips
[2023-11-08 14:24] LABS: Basophils # 0.1 10^3/uL (0.0-0.1); Eosinophils # 0.2 10^3/uL (0.0-0.8); Eosinophils % 2.3 %; Hematocrit 32.8 % (37-53); Lymphocytes # 0.6 10^3/uL (0.8-4.8); Lymphocytes % 8.7 %; Mean Corpuscular HGB Conc 30.8 g/dL (30-55); Mean Corpuscular Hemoglobin 30.9 pg (27-33); Mean Corpuscular Volume 100.3 fl (82-101); Mean Platelet Volume 9.2 fL (7.4-10.4); Monocytes # 0.9 10^3/uL (0.2-0.9); Monocytes % 11.8 %; Neutrophils # 5.52 10^3/uL (1.8-7.7); Neutrophils % 76.1 %; Nucleated Red Blood Cells % 0 %; Platelet Count 258 10^3/cmm (157-399); Red Blood Count 3.27 10^6/uL (3.85-5.65); Red Cell Distribution Width 14.7 % (12.1-15.1); White Blood Count 7.26 10^3/uL (3.29-11.43)
[2023-11-08] MEDS: dilTIAZem 5 mg/mL SDV 5 mL 20 MG IVP (14:27)
[2023-11-08 14:36] LABS: INR 1.07 (0.8-1.2)
[2023-11-08] MEDS: labetalol 5 mg/mL SDV 20mL 10 MG IVP ×2 (14:41→15:10)
--- NOTE | 2023-11-08 14:43 | PC.NURSE ---
SPOKE WITH PATIENT AND EDUCATED ON IV AND EKG NEED. PATIENT AGREED TO COOPERATE AT THIS TIME. PATIENT PREVIOUSLY DECLINED IV AND EKG WITH EMS WELL FOR US. DR. PEÑA ALSO SPOKE WITH PATIENT ABOUT NEED FOR ACCESS AND PROTOCOL.
[2023-11-08 14:56] LABS: Alanine Aminotransferase 9 U/L (0-41); Albumin Level 3.9 g/dL (3.5-5.2); Alkaline Phosphatase 149 U/L (40-130); Anion Gap 22.9 (5-19); Aspartate Amino Transferase 12 U/L (0-40); Blood Urea Nitrogen 61 mg/dL (6-20); Calcium 9.2 mg/dL (8.5-10.5); Carbon Dioxide 26 mmol/L (22-29); Chloride 94 mmol/L (98-107); Globulin 3.8 g/dL (1.3-4.6); Glomerular Filtration Rate 6.3 mL/min (90-130); Glucose 96 mg/dL (65-115); Osmolality Calculated 301 mOsm/kg (285-295); Potassium 5.9 mmol/L (3.5-5.1); Sodium 137 mmol/L (136-145); Total Bilirubin 0.3 mg/dL (0.15-1.2); Total Protein 7.7 g/dL (6.6-8.7)
[2023-11-08] MEDS: hyDRALAzine 20 mg/mL INJ 1 mL 10 MG IVP (15:02)
[2023-11-08 15:08] VITALS: BP 182/127; PULSE 87; O2SAT 100
--- NOTE | 2023-11-08 15:09 | ECG_ITS ---
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 Measurements Intervals [place] Rate: 86 P: 0 [place]: 0 QRS: 26 QRSD: 101 T: 90 QT: 386 QTc: 464 Interpretive Statements ATRIAL FIBRILLATION WITH ABERRANT CONDUCTION OR VENTRICULAR PREMATURE COMPLEXES Compared to ECG 10/21/2023 11:59:59 T-wave abnormality no longer present Electronically Signed On 11-08-2023 19:41:[address] Lloyd M.D. [id number]
[2023-11-08 15:16] LABS: Creatinine Clr Calc Pharmacy 10.7453
[2023-11-08 15:55] LABS: NT Pro B Type Natriuretic Pept > 70000 pg/mL (0-125)
--- NOTE | 2023-11-08 16:53 | PC.NURSE ---
PATIENT CALLED FOR RIDE FROM FAMILY MEMBER. AWAITING RIDE AT THIS TIME. DC PAPERWORK SIGNED
--- NOTE | 2023-11-08 17:04 | PC.NURSE ---
PATIENT ADVISED NOT TO TAKE OFF LEADS AND MONITORING CORDS UNTIL PATIENT LEAVES. PATIENT REFUSED AND TOOK OFF LEADS AND IS AWAITING RIDE.
[2023-11-08] MEDS: labetalol 5 mg/mL SDV 20mL 20 MG IVP (17:16)
[2023-11-08 17:17] VITALS: BP 166/118; PULSE 92; O2SAT 97
[2023-11-08 17:26] VITALS: BP 166/118; PULSE 92; RESP 20; TEMP 36.6; O2SAT 97
== END 2023-11-08 17:24 | disposition home or self-care (01) ==
PROVIDERS: Emergency Provider Emergency Medicine; PCP Family Medicine
DX: I48.20 Chronic atrial fibrillation, unspecified (principal); I13.2 Hypertensive heart and chronic kidney disease with heart failure and with stage 5 chronic kidney disease, or end stage renal disease; N18.6 End stage renal disease; I50.30 Unspecified diastolic (congestive) heart failure; Z99.2 Dependence on renal dialysis; J44.9 Chronic obstructive pulmonary disease, unspecified; F17.210 Nicotine dependence, cigarettes, uncomplicated
CPT/HCPCS: 71045; 80053; 83880; 85025; 85610; 93005; 96374; 96375; 96376; 99285; J0360; J3490

== ENCOUNTER 2024-01-17 06:06 | Observation (INO) | payer MEDICARE, SELFPAY ==
[2024-01-17] VITALS (13 sets, daily range): BP systolic 162–215; BP diastolic 105–145; PULSE 79–139; RESP 14–27; TEMP 36.4–36.9; O2SAT 91–99; BMI 27.2; BMI 29.2; BMI 29.5
--- NOTE | 2024-01-17 06:09 | ECG_ITS ---
[facility] Date: 2024-01-17 Pat Name: Leopoldo Schaefer Department: Room: Gender: Male Bryologist: : 1975 Requested By: Florencia Null Order Number: [id number] Roderick MD: GARRETT JIMENEZ Measurements Intervals [place] Rate: 137 P: 0 [place]: 0 QRS: 19 QRSD: 95 T: 75 QT: 279 QTc: 422 Interpretive Statements ATRIAL FIBRILLATION WITH RAPID VENTRICULAR RESPONSE LOW QRS VOLTAGE IN EXTREMITY LEADS [QRS DEFLECTION < 0.5 mV IN LIMB LEADS] MODERATE ST DEPRESSION [0.05+ mV ST DEPRESSION] Compared to ECG 11/08/2023 15:09:37 Low QRS voltage now present ST (T wave) deviation now present Ventricular premature complex(es) no longer present Aberrant conduction of supraventricular beat(s) no longer present Electronically Signed On 01-19-2024 21:04:17 CDT by GARRETT JIMENEZ [id number]
--- NOTE | 2024-01-17 06:18 | XRR_ITS ---
PROCEDURE INFORMATION: Exam: XR Chest Exam date and time: 01/17/2024 6:21 AM Age: 48 years old Clinical indication: Shortness of breath; Additional info: SOB TECHNIQUE: Imaging protocol: Radiologic exam of the chest. Views: 1 view. COMPARISON: CR XR chest 1V portable [id number] 11/08/2023 2:28 PM FINDINGS: Tubes, catheters and devices: Dialysis access catheter terminates at the cavoatrial junction. Lungs: Severe chronic interstitial lung disease is again evident. No acute airspace consolidation is identified. Pleural spaces: No significant pleural fluid. No pneumothorax detected. Heart/Mediastinum: Stable cardiac enlargement without evidence of acute vascular congestion. Bones/joints: Bones appear osteopenic. Chronic deformity of left glenohumeral joint. XR/XR chest 1V portable [id number] IMPRESSION: Severe chronic pulmonary fibrosis.
--- NOTE | 2024-01-17 06:18 | ED_ITS ---
HPI - Arrhythmia/Palpitations 2 General: Chief Complaint: Arrhythmia/Palpitations Stated Complaint: CP & SOB Time Seen by Provider: 01/17/24 06:07 Source: patient and EMS Mode of arrival: EMS Limitations: no limitations History of Present Illness: 48-year-old male has a history of end-st age renal disease he is on dialysis also has COPD CHF A-fib with RVR. He states he did receive dialysis on Thursday but states that he woke up this morning states he still feels fluid overloaded states he is feeling short of breath having chest pain. He states he is also been having shortness of breath he denies any fever denies any vomiting or diarrhea Associated symptoms: Deny nausea or vomiting Related Data Home Medications Medication Instructions Recorded Confirmed vit B,C-folic ac 800 mcg-zinc 12.5 1 tab PO DAILY 06/09/19 10/22/23 mg-selen-D3 2,000 unit-vit E tablet (RenaPlex-D) acetaminophen 500 mg tablet 1,000 mg PO Q4H PRN Pain 02/15/21 10/21/23 diltiazem HCl 240 mg 240 mg PO QAM 10/14/21 10/21/23 capsule,extended release 24 hr apixaban 5 mg tablet (Eliquis) 2.5 mg PO BID 09/14/23 10/21/23 furosemide 80 mg tablet 80 mg PO BID 09/14/23 10/21/23 Previous Rx's Medication Instructions Recorded Home oxygen #1 ea 08/07/20 ondansetron 4 mg disintegrating 4 mg PO Q8H PRN nausea and 04/16/22 tablet vomiting #30 tabs atorvastatin 40 mg tablet 40 mg PO BEDTIME #30 tabs 05/16/22 budesonide-formoterol HFA 160 2 puff inhalation BID 30 days 05/16/22 mcg-4.5 mcg/actuation aerosol #10.2 grams inhaler (Symbicort) pantoprazole 40 mg tablet,delayed 40 mg PO BID #180 tabs 05/16/22 release citalopram 20 mg tablet 20 mg PO QAM #30 tabs 09/08/22 trazodone 150 mg tablet 150 mg PO BEDTIME #90 tabs 09/08/22 hydralazine 25 mg tablet 75 mg (3 x 25 mg) PO TID #90 tabs 10/23/23 isosorbide mononitrate 120 mg 120 mg PO QAM PRN Sbp more than 10/23/23 tablet,extended release 24 hr 150 mmhg #30 tabs Allergies Allergy/AdvReac Type Severity Reaction Status Date / Time lisinopril Allergy swelling Verified 08/05/22 15:12 Penicillins Allergy ALGY-Hives Verified 08/05/22 15:12 tramadol Allergy ALGY-Hives Verified 08/05/22 15:12 Review of Systems 2 Const: Denies: fever(s), chills, body aches or change in appetite ENMT: Denies: throat pain or dental pain Card: Reports: chest pain Resp: Reports: dyspnea GI: Denies: abdominal pain, nausea, vomiting or diarrhea Musc: Denies: neck pain or back pain Skin/Breast: Denies: rash Neuro: Denies: headache(s) PFSH ED 2 PFSH: Medical History Uncontrolled hypertension Hypoglycemia Atrial fibrillation with RVR COPD exacerbation Pulmonary edema Non-compliance with renal dialysis End stage renal disease Anxiety and depression Pneumonia Obstructive sleep apnea Allergic dermatitis ESRD (end stage renal disease) Pleural effusion Dialysis patient Hypertensive emergency Atrial fibrillation/flutter Chest pain Elevated troponin Resistant hypertension Paroxysmal atrial fibrillation with RVR End stage chronic kidney disease Anemia Diastolic CHF Sebaceous cyst GERD (gastroesophageal reflux disease) Insomnia COPD (chronic obstructive pulmonary disease) Reports he is on 4 L of oxygen at home Hypoxia Anxiety and depression Lower respiratory tract infection Encounter to establish care Vitamin D deficiency Hypertension CRF (chronic renal failure) Surgical History S/P hemodialysis catheter insertion H/O hand surgery right hand with hardware H/O circumcision Presence of peritoneal dialysis catheter S/P dialysis catheter insertion (12/12/19) Removed on 04/04/2020 Family History Other Adopted Denies family history of Anesthesia complication Bleeding disorder Social History Smoking and tobacco/nicotine status: current every day tobacco/nicotine user (1ppd X26 years) cigarettes [ Other cigarette details: On and off quitting and restarting] Alcohol intake: never Substance/Drug Use: never Household members: significant other Marital status: Single Current occupational status: disabled Physical Exam 2 Const: COMMON NORMALS: patient oriented x3 GENERAL APPEARANCE: ill appearing HENMT: COMMON NORMALS: normocephalic and atraumatic HEAD & SCALP: n ormocephalic and atraumatic Eye: COMMON NORMALS: conjunctivae normal CONJUNCTIVA: Yes conjunctivae normal Neck/C-Spine: COMMON NORMALS: full ROM and supple Chest: COMMONS NORMALS: normal inspection of the chest Resp: EFFORT & INSPECTION: Yes tachypneic AUSCULTATION: wheezes Cardio: COMMON NORMALS: No murmurs present (Cardio) RATE: tachycardic R HYTHM: abnormal rhythm irregularly irregular GI: COMMON NORMALS: Normal to inspection, nondistended, normoactive bowel sounds present, Soft to palpation, non-tender and no masses PALPATION: Yes Soft to palpation Extremity: COMMON NORMALS: normal to inspection and full ROM Neuro: COMMON NORMALS: patient oriented x3, moves all extremities and no focal motor deficits Psych: COMMON NORMALS: mental status grossly normal, Normal thought process present and cooperative THOUGHT PROCESS: Normal thought process present Skin: COMMON NORMALS: no rashes or lesions noted and no wounds GENERAL SKIN EXAM: no rashes or lesions noted Course 2 Vital Signs: Vital signs: Vital Signs Temperature 98.4 F 01/17/24 06:09 Pulse Rate 124 H 01/17/24 06:45 Respiratory Rate 22 H 01/17/24 06:45 Blood Pressure 215/144 01/17/24 06:09 Pulse Oximetry 98 01/17/24 06:45 Oxygen Delivery Me thod Nasal Cannula 01/17/24 06:45 Oxygen Flow Rate 2 01/17/24 06:45 MDM - Arrhythmia/Palpitations Medical Decision Making 48-year-old male presented here with A-fib with RVR along with hypertension along with chest pain shortness of breath his pain here is improved he is on a Cardizem drip spoke to hospitalist will admit to cardiac stepdown this time Medical Records I reviewed the patient's medical records. Lab Data I reviewed the patient's lab results. 01/17/24 06:15 01/17/24 06:15 Radiology Impressions Chest X-Ray 01/17/24 06:18 IMPRESSION: Severe chronic pulmonary fibrosis. Laboratory Results WBC 8.67 10^3/uL (3.29-11.43) 01/17/24 06:15 RBC 3.95 10^6/uL (3.85-5.65) 01/17/24 06:15 Hgb 12.10 g/dL (11.27-16.99) 01/17/24 06:15 Hct 39.1 % (37-53) 01/17/24 06:15 MCV 99.0 fl (82-101) 01/17/24 06:15 MCH 30.6 pg (27-33) 01/17/24 06:15 MCHC 30.9 g/dL (30-55) 01/17/24 06:15 RDW 14.8 % (12.1-15.1) 01/17/24 06:15 Plt Count 203 10^3/cmm (157-399) 01/17/24 06:15 MPV 9.9 fL (7.4-10.4) 01/17/24 06:15 Neut % (Auto) 77.7 % 01/17/24 06:15 Lymph % (Auto) 5.3 % 01/17/24 06:15 [place] % (Auto) 14.8 % 01/17/24 06:15 Eos % (Auto) 1.2 % 01/17/24 06:15 Baso % (Auto) 0.5 % 01/17/24 06:15 Neut # (Auto) 6.75 10^3/uL (1.8-7.7) 01/17/24 06:15 Lymph # (Auto) 0.5 10^3/uL (0.8-4.8) L 01/17/24 06:15 [place] # (Auto) 1.3 10^3/uL (0.2-0.9) H 01/17/24 06:15 Eos # (Auto) 0.1 10^3/uL (0.0-0.8) 01/17/24 06:15 Baso # (Auto) 0.0 10^3/uL (0.0-0.1) 01/17/24 06:15 Nucleated RBC % (auto) 0 % 01/17/24 06:15 Nucleated RBCs # 0.0 /100WBC 01/17/24 06:15 Sodium 135 mmol/L (136-145) L 01/17/24 06:15 Potassium 4.9 mmol/L (3.5-5.1) 01/17/24 06:15 Chloride 93 mmol/L (98-107) L 01/17/24 06:15 Carbon Dioxide 23 mmol/L (22-29) 01/17/24 06:15 Anion Gap 23.9 (5-19) H 01/17/24 06:15 BUN 90 mg/dL (6-20) H* 01/17/24 06:15 Creatinine 10.2 mg/dL (0.7-1.2) H* 01/17/24 06:15 GFR Calculation 5.4 mL/min (90-130) L 01/17/24 06:15 Glucose 88 mg/dL (65-115) 01/17/24 06:15 Calculated Osmolality 307 mOsm/kg (285-295) H 01/17/24 06:15 Calcium 8.3 mg/dL (8.5-10.5) L 01/17/24 06:15 Troponin T Baseline 105 ng/L (0-15) H* 01/17/24 06:15 All radiology interpretation(s) finalized by discharge EKG Data EKG 1: I personally reviewed and interpreted this EKG as follows: EKG interpretation date: 01/17/24 EKG interpretation time: 06:10 Interpretation: afib with rvr hr [address] elevation qrs 98 qtc 359 Other EKG comments: Chest X-Ray 01/17/24 06:18 IMPRESSION: Severe chronic pulmonary fibrosis. Critical Care Time 2 Critical Care Time: Critical Care Time: Yes Total Critical Care Time: 40 Attestation: The high probability of a clinically significant, sudden or life threatening deterioration of the patient's cv system(s) required my full and direct attention, intervention and personal management. The critical care time is as shown. This time is in addition to time spent performing any reported procedures but includes the following: [x] Data and vital sign review and interpretation [x] Patient assessment, examination and intervention [x] Documentation [x] Medication orders and management Discharge Plan Discharge Patient Disposition: Admitted As Inpatient Clinical Impression: Atrial fibrillation with RVR, Uncontrolled hypertension, COPD (chronic obstructive pulmonary disease), End stage kidney disease Condition: Stable Prescriptions: No Action RenaPlex-D 800 mcg-12.5 mg -2,000 unit tablet 1 tab PO DAILY (DME) Home oxygen See Rx Instructions .Route .MEDSUPPLY Qty: 1 0RF Rx Instructions: As directed ondansetron 4 mg tablet,disintegrating 4 mg PO Q8H PRN (Reason: nausea and vomiting) Qty: 30 1RF atorvastatin 40 mg tablet 40 mg PO BEDTIME Qty: 30 0RF pantoprazole 40 mg tablet,delayed release (DR/EC) 40 mg PO BID Qty: 180 1RF budesonide-formoterol [Symbicort] 160-4.5 mcg/actuation HFA aerosol inhaler 2 puff inhalation BID 30 Days Qty: 10.2 2RF trazodone 150 mg tablet 150 mg PO BEDTIME Qty: 90 3RF citalopram 20 mg tablet 20 mg PO QAM Qty: 30 5RF acetaminophen 500 mg Tablet 1,000 mg PO Q4H PRN (Reason: Pain) diltiazem HCl 240 mg capsule,extended release 24hr 240 mg PO QAM furosemide 80 mg tablet 80 mg PO BID Eliquis 5 mg tablet 2.5 mg PO BID hydralazine 25 mg Tablet 75 mg PO TID Qty: 90 3RF isosorbide mononitrate 120 mg tablet extended release 24 hr 120 mg PO QAM PRN (Reason: Sbp more than 150 mmhg) Qty: 30 0RF Referrals: Ras Joy [Primary Care Provider] - Coding Level of Care Code ED Fashion Adviser for Shilpa Phillips
[2024-01-17] MEDS: dilTIAZem 5 mg/mL SDV 5 mL 20 MG IVP (06:25)
[2024-01-17] MEDS: methylPREDNISolone sod succ 125 mg/2 mL INJ IVP (06:26)
[2024-01-17] MEDS: dilTIAZem 100 MG in sodium chloride 0.9% (add-van) 100 ML IV ×2 (06:28→17:47)
[2024-01-17 06:33] LABS: Basophils % 0.5 %; Eosinophils # 0.1 10^3/uL (0.0-0.8); Eosinophils % 1.2 %; Hematocrit 39.1 % (37-53); Lymphocytes # 0.5 10^3/uL (0.8-4.8); Lymphocytes % 5.3 %; Mean Corpuscular HGB Conc 30.9 g/dL (30-55); Mean Corpuscular Hemoglobin 30.6 pg (27-33); Mean Platelet Volume 9.9 fL (7.4-10.4); Monocytes # 1.3 10^3/uL (0.2-0.9); Monocytes % 14.8 %; Neutrophils # 6.75 10^3/uL (1.8-7.7); Neutrophils % 77.7 %; Nucleated Red Blood Cells % 0 %; Platelet Count 203 10^3/cmm (157-399); Red Blood Count 3.95 10^6/uL (3.85-5.65); Red Cell Distribution Width 14.8 % (12.1-15.1); White Blood Count 8.67 10^3/uL (3.29-11.43)
[2024-01-17 06:46] LABS: Troponin(5th) Baseline 105 ng/L (0-15)
[2024-01-17 06:53] LABS: Anion Gap 23.9 (5-19); Calcium 8.3 mg/dL (8.5-10.5); Carbon Dioxide 23 mmol/L (22-29); Chloride 93 mmol/L (98-107); Glomerular Filtration Rate 5.4 mL/min (90-130); Glucose 88 mg/dL (65-115); Osmolality Calculated 307 mOsm/kg (285-295); Potassium 4.9 mmol/L (3.5-5.1); Sodium 135 mmol/L (136-145)
[2024-01-17 06:57] LABS: Blood Urea Nitrogen 90 mg/dL (6-20); Creatinine Clr Calc Pharmacy 9.5923
[2024-01-17] MEDS: dilTIAZem 5 mg/mL SDV 5 mL 10 MG IVP (07:06)
[2024-01-17] MEDS: labetalol 5 mg/mL SDV 20mL 10 MG IVP (07:56)
[2024-01-17] MEDS: ondansetron 2 mg/ML SDV 2 mL 4 MG IVP ×2 (07:58→17:46)
[2024-01-17] MEDS: morphine 4 mg/mL SDV 1 mL IVP (08:00)
[2024-01-17 08:25] LABS: NT Pro B Type Natriuretic Pept > 70000 pg/mL (0-125)
[2024-01-17 08:49] LABS: Troponin 5 2HR Delta -1.9 ABS# (0-10)
[2024-01-17 08:50] LABS: Troponin 5 2HR 103.1 ng/L (0-15)
--- NOTE | 2024-01-17 11:43 | P.HP_ITS ---
Providers/Chief Complaint 2 Admitting Physician: Paulino Benavidez MD Primary Care Provider: Ras Joy Chief Complaint: CP & SOB History of Present Illness Leopoldo Schaefer is a 48 year old male with history of end-stage renal disease, A-fib, presented with chief complaint of worsening of shortness of breath. Patient is stating that today he started experiencing shortness of breath, normally he wears 6 L of oxygen, at the time of evaluation he is on 4 L, he is watching a show on his phone, not in neck active chest pain, patient is stating that he was main concern was shortness of breath. She was diagnosed with A-fib RVR required Cardizem drip, heart rate is around 90s at the time of evaluation. His last session of dialysis was on Thursday, patient is hypertensive, no active chest pain, no active shortness of breath, A-fib without RVR currently on 4 L Review of Systems 2 Const: Denies: fever(s) Eyes: Denies: change in vision ENMT: Denies: throat pain Card: Denies: chest pain Resp: Reports: dyspnea Medications/Allergies Home Medications Medication Instructions Recorded Confirmed Last Taken Type vit B,C-folic ac 800 mcg-zinc 12.5 1 tab PO DAILY 06/09/19 01/17/24 1 Day Ago History mg-selen-D3 2,000 unit-vit E ~10/21/23 tablet ([facility]-D) Home oxygen #1 ea 08/07/20 01/17/24 Unknown Rx acetaminophen 500 mg tablet 1,000 mg PO Q4H PRN Pain 02/15/21 01/17/24 Unknown History diltiazem HCl 240 mg 240 mg PO QAM 10/14/21 01/17/24 10/21/23 History capsule,extended release 24 hr ondansetron 4 mg disintegrating 4 mg PO Q8H PRN nausea and 04/16/22 01/17/24 Unknown Rx tablet vomiting #30 tabs atorvastatin 40 mg tablet 40 mg PO BEDTIME #30 tabs 05/16/22 01/17/24 01/11/24 Rx 40 pantoprazole 40 mg tablet,delayed 40 mg PO BID #180 tabs 05/16/22 01/17/24 1 Day Ago Rx release ~10/21/23 citalopram 20 mg tablet 20 mg PO QAM #30 tabs 09/08/22 01/17/24 01/09/24 Rx 20 apixaban 5 mg tablet (Eliquis) 2.5 mg PO BID 09/14/23 01/17/24 01/10/24 History 2.5 furosemide 80 mg tablet 80 mg PO BID 09/14/23 01/17/24 1 Day Ago History ~10/20/23 hydralazine 25 mg tablet 75 mg (3 x 25 mg) PO TID #90 tabs 10/23/23 01/17/24 1 Day Ago Rx ~10/20/23 isosorbide mononitrate 120 mg 120 mg PO QAM PRN Sbp more than 10/23/23 01/17/24 1 Day Ago Rx tablet,extended release 24 hr 150 mmhg #30 tabs ~10/21/23 aspirin 81 mg capsule 81 mg PO DAILY 01/17/24 01/17/24 Unknown History carvedilol 6.25 mg tablet 6.25 mg PO BID 01/17/24 01/17/24 Unknown History cyanocobalamin (vitamin B-12) 1,000 mcg PO DAILY 01/17/24 01/17/24 Unknown History 1,000 mcg tablet doxycycline hyclate 100 mg 100 mg PO DAILY 01/17/24 01/17/24 Unknown History capsule,delayed release famotidine 40 mg tablet 40 mg PO BID 01/17/24 01/17/24 Unknown History hydralazine 100 mg tablet 100 mg PO TID 01/17/24 01/17/24 Unknown History ipratropium 18 mcg-albuterol 103 18 - 103 spray inhalation 01/17/24 01/17/24 Unknown History mcg/actuation aerosol inhaler DIRECTED levetiracetam 500 mg tablet 500 mg PO BID 01/17/24 01/17/24 Unknown History Allergies Allergy/AdvReac Type Severity Reaction Status Date / Time lisinopril Allergy swelling Verified 08/05/22 15:12 Penicillins Allergy ALGY-Hives Verified 08/05/22 15:12 tramadol Allergy ALGY-Hives Verified 08/05/22 15:12 PFSH Acute 2 PFSH: Medical History Uncontrolled hypertension Hypoglycemia Atrial fibrillation with RVR COPD exacerbation Pulmonary edema Non-compliance with renal dialysis End stage renal disease Anxiety and depression Pneumonia Obstructive sleep apnea Allergic dermatitis ESRD (end stage renal disease) Pleural effusion Dialysis patient Hypertensive emergency Atrial fibrillation/flutter Chest pain Elevated troponin Resistant hypertension Paroxysmal atrial fibrillation with RVR End stage chronic kidney disease Anemia Diastolic CHF Sebaceous cyst GERD (gastroesophageal reflux disease) Insomnia COPD (chronic obstructive pulmonary disease) Reports he is on 4 L of oxygen at home Hypoxia Anxiety and depression Lower respiratory tract infection Encounter to establish care Vitamin D deficiency Hypertension CRF (chronic renal failure) Surgical History S/P hemodialysis catheter insertion H/O hand surgery right hand with hardware H/O circumcision Presence of peritoneal dialysis catheter S/P dialysis catheter insertion (12/12/19) Removed on 04/04/2020 Family History Other Adopted Denies family history of Anesthesia complication Bleeding disorder Social History Smoking and tobacco/nicotine status: current every day tobacco/nicotine user (1ppd X26 years) cigarettes [ Other cigarette details: On and off quitting and restarting] Alcohol intake: never Substance/Drug Use: never Household members: significant other Marital status: Single Current occupational status: disabled Vitals/I&O/Wt Last Vital Signs Temp 98.4 F 01/17/24 06:09 Pulse 96 01/17/24 09:39 Resp 14 01/17/24 09:00 BP 162/105 01/17/24 09:39 Pulse Ox 93 01/17/24 09:39 O2 Del Method Nasal Cannula 01/17/24 07:00 O2 Flow Rate 6 01/17/24 07:00 01/16/24 01/17/24 01/17/24 22:59 06:59 14:59 Intake Total 1.417 / 1.417 47.292 / 47.292 Balance 1.417 / 1.417 47.292 / 47.292 Weight last 48 hrs Weight 86.183 kg Physical Exam 2 Narrative: -Signs of fluid overload Noted has been Currently on hold if needed Discomfort Seen at the bedside A-fib without RVR 90s Patient was initially on his home Distended nontender abdomen S1, S2 variable Data 01/17/24 06:15 01/17/24 06:15 A&P Assessment and plan (1) Uncontrolled hypertension: (2) Diastolic CHF: Qualifiers: Heart failure chronicity: chronic Qualified Code(s): I50.32 - Chronic diastolic (congestive) heart failure (3) Atrial fibrillation with RVR: (4) End stage kidney disease: (5) End stage chronic kidney disease: (6) COPD (chronic obstructive pulmonary disease): Plan Hypertensive urgency:?Will optimize antihypertensive regimen End-stage renal disease: Last dialysis session was on Thursday, next could be on Thursday of dialysis A-fib RVR wean off Cardizem drip and continue home regimen of Coreg diltiazem and Eliquis Patient is full code Will request nephro consultation to dialysis on Thursday Patient at baseline requires 6 L currently doing well on 4 Attestations 2 Medical Necessity Statement*: Discharge by tomorrow Diagnoses Uncontrolled hypertension I10 Chronic diastolic congestive heart failure I50.32 Heart failure chronicity: chronic Atrial fibrillation with RVR I48.91 End stage kidney disease N18.6 End stage chronic kidney disease N18.6 Chronic obstructive pulmonary disease, unspecified COPD type J44.9
--- NOTE | 2024-01-17 11:52 | ECG_ITS ---
[facility] Date: 2024-01-17 Pat Name: Leopoldo Schaefer Department: Room: 105 Gender: Male Operational Communication Chief: : 1975 Requested By: Florencia Null Order Number: [id number] Reading MD: GARRETT JIMENEZ Measurements Intervals [place] Rate: 80 P: 0 LA: 0 QRS: 30 QRSD: 101 T: 48 QT: 391 QTc: 454 Interpretive Statements ATRIAL FIBRILLATION LOW QRS VOLTAGE IN EXTREMITY LEADS [QRS DEFLECTION < 0.5 mV IN LIMB LEADS] ABNORMAL RHYTHM ECG Compared to ECG 01/17/2024 06:10:07 ST (T wave) deviation no longer present Electronically Signed On 01-19-2024 21:22:02 CDT by GARRETT JIMENEZ [email or web address]
[2024-01-17 13:08] LABS: Troponin 5 6HR 95.11 ng/L (0-15); Troponin 5 6HR Delta -9.89 ng/L (0-12)
[2024-01-17] MEDS: hyDRALAzine 50 mg Tablet 100 MG PO ×2 (15:51→20:42)
--- NOTE | 2024-01-17 15:51 | PC.NURSE ---
Patient had two orders for hydralazine, Dr Benavidez notified and order to give 100mg dose given.
[2024-01-17] MEDS: hyDRALAzine 25 mg Tablet 75 MG PO ×2 (17:48→20:42)
[2024-01-17] MEDS: apixaban 5 mg Tablet 2.5 MG PO (18:27)
[2024-01-17] MEDS: carvedilol 6.25 mg Tablet PO (18:27)
[2024-01-17] MEDS: famotidine 20 mg Tablet 40 MG PO (18:27)
[2024-01-17] MEDS: levETIRAcetam 500 mg Tablet PO (18:27)
[2024-01-17] MEDS: pantoprazole DR 40 mg Tablet PO (18:27)
--- NOTE | 2024-01-17 20:15 | PC.NURSE ---
contacted Dr Day about patient having two hydraulizine orders (100 mg and 75 mg) with bp 184/130 and received order to give both
[2024-01-17] MEDS: atorvastatin 40 mg Tablet PO (20:42)
--- NOTE | 2024-01-17 21:24 | PC.NURSE ---
patient called admissions nurse light that he was having sob and 7/10 chest pressure, patient had labored breathing that improved with sitting up, stated he felt like he had a bull sitting on his chest but denied radiation anywhere, bp 179/122, hr 80, sat 100% on 4L, lungs diminished, notified Dr Day and received order for nitro paste X1
[2024-01-17] MEDS: nitroglycerin 1 gm/inch oint Pkt 1 INCH TOPICAL (21:47)
[2024-01-18] VITALS (7 sets, daily range): BP systolic 144–169; BP diastolic 96–108; PULSE 74–91; RESP 16–24; TEMP 36.5–37.1; O2SAT 91–98
[2024-01-18] MEDS: hyDRALAzine 20 mg/mL INJ 1 mL 10 MG IVP (01:29)
[2024-01-18 06:43] LABS: Anion Gap 23.7 (5-19); Calcium 8.3 mg/dL (8.5-10.5); Carbon Dioxide 21 mmol/L (22-29); Chloride 89 mmol/L (98-107); Creatinine Clr Calc Pharmacy 8.7919; Glomerular Filtration Rate 4.7 mL/min (90-130); Glucose 148 mg/dL (65-115); Osmolality Calculated 300 mOsm/kg (285-295); Sodium 127 mmol/L (136-145)
[2024-01-18 06:58] LABS: Blood Urea Nitrogen 106 mg/dL (6-20); Potassium 6.7 mmol/L (3.5-5.1)
[2024-01-18] MEDS: dilTIAZem ER (24HR) 240 mg Capsule PO (07:11)
[2024-01-18] MEDS: cyanocobalamin 1,000 mcg Tablet 1000 MCG PO (07:35)
[2024-01-18] MEDS: hyDRALAzine 50 mg Tablet 100 MG PO (07:35)
[2024-01-18] MEDS: pantoprazole DR 40 mg Tablet PO (07:35)
[2024-01-18] MEDS: apixaban 5 mg Tablet 2.5 MG PO (07:35)
[2024-01-18] MEDS: levETIRAcetam 500 mg Tablet PO (07:35)
[2024-01-18] MEDS: hyDRALAzine 25 mg Tablet 75 MG PO (07:35)
[2024-01-18] MEDS: carvedilol 6.25 mg Tablet PO (07:36)
[2024-01-18] MEDS: famotidine 20 mg Tablet 40 MG PO (07:36)
[2024-01-18 09:08] LABS: Hepatitis B Surface AB < 3.5 (11.5-1000); Hepatitis B Surface Antigen Non-Reactive (Nonreactive)
--- NOTE | 2024-01-18 10:35 | PC.CHAP ---
Pastoral Care Encounter/Spiritual Assessment Type of Contact [] Declined real estate loan officer visit [] Patient/Family/Request visit [] Outpatient visit [] Follow-up visit [] Physician referral [] Code/Alert [x] Routine visit [] Staff referral [] Actively dying [x] Patient sleeping [] Family support [] [] Out of room [] Palliative care [] [] Receiving care in room [] Pre-surgical visit [] Trauma [] Long length of stay [] ICU visit [] Other: Relational/Emotional Strength [] Patient feels connected with others/family/visitors/staff [] Distress [] Loneliness/isolation [] Abandonment Spirituality of Patient [] Person of [place] [] Attends Shinto of their [place] [] Believes in Prayer [] Reads Bible or Spiritism materials [] There are Spiritual issues to be addressed Lead [employer] Developer Interventions [x] Prayer [] Active listening [] Non-anxious presence [] Spiritual/emotional support [] Crisis/trauma care [] Spiritual counseling [] Bereavement support [] Provided bereavement packet [] Provided Bible/devotional materials [] Provided toy/stuffed animal, coloring book to patient or family member [] Provided Communion [] Anointing/[place] [] Salvation [] Completed spiritual assessment [] Other: Impact on Illness or Injury [] Angry [] Fearful [] Anxious [] Often cries [] Exhaustion [] Unable to work [] Unable to attend mu-ism [] Unable to walk/stand [] Unable to read [] Unable to drive [] Unable to eat/drink [] Unable to sleep [] Unable to be with family [] Patient intubated [] Other: Summary Time spent with patient
--- NOTE | 2024-01-18 10:39 | PC.HD ---
Upon arrival to dialysis room, catheter site was noted to be covered with an ill-fitting, dirty Band-Aid which was covered in hair. Catheter insertion site noted to be reddened, but no gross s/s of infection noted. Area was scrubbed with Chloraprep and triple antibiotic ointment was applied to catheter insertion site. Patient refused application of Covaderm dressing per protocol and insisted on another Band-Aid. Patient was educated regarding need to completely cover catheter site to help prevent central line infection. Patient voiced understanding but continued to refuse Covaderm. Two Band-Aids were placed on catheter insertion site and prepared foods supervisor was notified.
--- NOTE | 2024-01-18 11:06 | P.CONIM_ITS ---
Providers/Reason For Consult 2 Consulting Physician/Specialty*: [facility]/nephrology Reason for Consult*: ESRD Attending Physician: Paulino Benavidez MD Primary Care Provider: Ras Joy History of Present Illness History of Present Illness Leopoldo Schaefer is a 50 year old male 48-year-old male with past medical history of end-stage renal disease on dialysis per Thursday, A-fib, presented with complaint of shortness of breath. He was on 6 L at home oxygen,. He was found to be in A-fib with RVR was briefly placed on Cardizem drip. Patient currently getting dialysis. Also noted to have high blood pressures and resumed home meds currently. Review of Systems 2 Narrative: NEGATIVE Medications/Allergies Home Medications Medication Instructions Recorded Confirmed Last Taken Type vit B,C-folic ac 800 mcg-zinc 12.5 1 tab PO DAILY 06/09/19 01/17/24 1 Day Ago History mg-selen-D3 2,000 unit-vit E ~10/21/23 tablet ([facility]-D) Home oxygen #1 ea 08/07/20 01/17/24 Unknown Rx acetaminophen 500 mg tablet 1,000 mg PO Q4H PRN Pain 02/15/21 01/17/24 Unknown History diltiazem HCl 240 mg 240 mg PO QAM 10/14/21 01/17/24 10/21/23 History capsule,extended release 24 hr ondansetron 4 mg disintegrating 4 mg PO Q8H PRN nausea and 04/16/22 01/17/24 Unknown Rx tablet vomiting #30 tabs atorvastatin 40 mg tablet 40 mg PO BEDTIME #30 tabs 05/16/22 01/17/24 01/11/24 Rx 40 pantoprazole 40 mg tablet,delayed 40 mg PO BID #180 tabs 05/16/22 01/17/24 1 Day Ago Rx release ~10/21/23 citalopram 20 mg tablet 20 mg PO QAM #30 tabs 09/08/22 01/17/24 01/09/24 Rx 20 apixaban 5 mg tablet (Eliquis) 2.5 mg PO BID 09/14/23 01/17/24 01/10/24 History 2.5 furosemide 80 mg tablet 80 mg PO BID 09/14/23 01/17/24 1 Day Ago History ~10/20/23 hydralazine 25 mg tablet 75 mg (3 x 25 mg) PO TID #90 tabs 10/23/23 01/17/24 1 Day Ago Rx ~10/20/23 isosorbide mononitrate 120 mg 120 mg PO QAM PRN Sbp more than 10/23/23 01/17/24 1 Day Ago Rx tablet,extended release 24 hr 150 mmhg #30 tabs ~10/21/23 aspirin 81 mg capsule 81 mg PO DAILY 01/17/24 01/17/24 Unknown History carvedilol 6.25 mg tablet 6.25 mg PO BID 01/17/24 01/17/24 Unknown History cyanocobalamin (vitamin B-12) 1,000 mcg PO DAILY 01/17/24 01/17/24 Unknown History 1,000 mcg tablet doxycycline hyclate 100 mg 100 mg PO DAILY 01/17/24 01/17/24 Unknown History capsule,delayed release famotidine 40 mg tablet 40 mg PO BID 01/17/24 01/17/24 Unknown History hydralazine 100 mg tablet 100 mg PO TID 01/17/24 01/17/24 Unknown History ipratropium 18 mcg-albuterol 103 18 - 103 spray inhalation 01/17/24 01/17/24 Unknown History mcg/actuation aerosol inhaler DIRECTED levetiracetam 500 mg tablet 500 mg PO BID 01/17/24 01/17/24 Unknown History trazodone 150 mg tablet 150 mg PO BEDTIME 01/17/24 01/17/24 Unknown History clonidine HCl 0.1 mg tablet 0.1 mg PO Q6H PRN bp>200/110mmhg 01/18/24 Unknown Rx #20 tabs Allergies Allergy/AdvReac Type Severity Reaction Status Date / Time lisinopril Allergy swelling Verified 08/05/22 15:12 Penicillins Allergy ALGY-Hives Verified 08/05/22 15:12 tramadol Allergy ALGY-Hives Verified 08/05/22 15:12 Current Medications Generic Name Dose Route Start Last Admin Trade Name Freq PRN Reason Stop Dose Admin Apixaban 2.5 mg 01/17/24 18:00 01/18/24 07:35 Apixaban 5 Mg Tablet PO 2.5 mg BID FRANCISCO Administration Atorvastatin Calcium 40 mg 01/17/24 21:00 01/17/24 20:42 Atorvastatin 40 Mg Tablet PO 40 mg BEDTIME FRANCISCO Administration Cyanocobalamin 1,000 mcg 01/18/24 09:00 01/18/24 07:35 Cyanocobalamin 1,000 Mcg Tablet PO 1,000 mcg DAILY FRANCISCO Administration Diltiazem HCl 240 mg 01/18/24 06:00 01/18/24 07:11 Diltiazem Er (24hr) 240 Mg Capsule PO 240 mg QAM FRANCISCO Administration Famotidine 40 mg 01/17/24 18:00 01/18/24 07:36 Famotidine 20 Mg Tablet PO 40 mg BID FRANCISCO Administration Hydralazine HCl 75 mg 01/17/24 15:00 01/18/24 07:35 Hydralazine 25 Mg Tablet PO 75 mg TID FRANCISCO Administration Hydralazine HCl 100 mg 01/17/24 15:00 01/18/24 07:35 Hydralazine 50 Mg Tablet PO 100 mg TID FRANCISCO Administration Diltiazem HCl 100 mg/ Sodium 100 mls @ 0 mls/hr 01/17/24 06:30 01/18/24 07:29 Chloride IV 0 mg/hr .Q0M FRANCISCO 0 mls/hr Titration Protocol Per Protocol Levetiracetam 500 mg 01/17/24 18:00 01/18/24 07:35 Levetiracetam 500 Mg Tablet PO 500 mg BID FRANCISCO Administration Ondansetron HCl 4 mg 01/17/24 11:58 01/17/24 17:46 Ondansetron 2 Mg/Ml Sdv 2 Ml IVP 4 mg Q6H PRN Administration NAUSEA AND VOMITING Pantoprazole Sodium 40 mg 01/17/24 18:00 01/18/24 07:[address] 40 Mg Tablet PO 40 mg BID FRANCISCO Administration PFSH Acute 2 PFSH: Medical History Uncontrolled hypertension Hypoglycemia Atrial fibrillation with RVR COPD exacerbation Pulmonary edema Non-compliance with renal dialysis End stage renal disease Anxiety and depression Pneumonia Obstructive sleep apnea Allergic dermatitis ESRD (end stage renal disease) Pleural effusion Dialysis patient Hypertensive emergency Atrial fibrillation/flutter Chest pain Elevated troponin Resistant hypertension Paroxysmal atrial fibrillation with RVR End stage chronic kidney disease Anemia Diastolic CHF Sebaceous cyst GERD (gastroesophageal reflux disease) Insomnia COPD (chronic obstructive pulmonary disease) Reports he is on 4 L of oxygen at home Hypoxia Anxiety and depression Lower respiratory tract infection Encounter to establish care Vitamin D deficiency Hypertension CRF (chronic renal failure) Surgical History S/P hemodialysis catheter insertion H/O hand surgery right hand with hardware H/O circumcision Presence of peritoneal dialysis catheter S/P dialysis catheter insertion (12/12/19) Removed on 04/04/2020 Family History Other Adopted Denies family history of Anesthesia complication Bleeding disorder Social History Smoking and tobacco/nicotine status: current every day tobacco/nicotine user (1ppd X26 years) cigarettes [ Other cigarette details: On and off quitting and restarting] Alcohol intake: never Substance/Drug Use: never Household members: significant other Marital status: Single Current occupational status: disabled Vitals/I&O/Wt Last Vital Signs Temp 98.8 F 01/18/24 10:37 Pulse 85 01/18/24 10:37 Resp 18 01/18/24 10:37 BP 166/96 01/18/24 10:37 Pulse Ox 91 01/18/24 07:41 O2 Del Method Nasal Cannula 01/18/24 07:41 O2 Flow Rate 4 01/18/24 07:41 01/17/24 01/18/24 01/18/24 22:59 06:59 14:59 Intake Total 137.625 / 664.917 64.75 / 64.75 Output Total 900 / 900 0 / 900 Balance -762.375 / -235.083 0 / -235.083 64.75 / 64.75 Weight last 48 hrs Weight 92.714 kg Weight 92.5 kg Weight 93.4 kg Weight 86.183 kg Physical Exam 2 Narrative: Awake, alert no distress, on 4 L O2 HEENT S1-S2 regular rate and rhythm per report Lungs Clear per report No pedal edema Data 01/17/24 06:15 01/18/24 14:02 A&P Assessment and plan (1) End stage kidney disease: Plan 1. End-stage renal disease: On HD per MWF schedule, HD today, ultrafiltration as tolerated. Patient has aVF which is not ready to use yet, now has tunneled catheter 3. Rapid A-fib 4. Anemia: Hemoglobin at goal, monitor 5. Hypertension, blood pressure controlled Patient evaluated using audiovisual cart. Time spent 40 minutes. Coding Level of Care Code Acute Code for Chg Fwd Diagnoses End stage kidney disease N18.6
--- NOTE | 2024-01-18 11:07 | P.DS_ITS ---
Discharge Providers Date of Admission: 01/17/24 07:50 Date of Discharge: January 18, 2024 Attending Provider at Admission: Paulino Benavidez MD Attending Provider at Discharge: Paulino Benavidez MD Primary Care Provider: Ras Joy Diagnoses at Discharge Discharge Diagnosis (1) Uncontrolled hypertension: Status: Acute (2) Diastolic CHF: Status: Acute Qualifiers: Heart failure chronicity: chronic Qualified Code(s): I50.32 - Chronic diastolic (congestive) heart failure (3) Atrial fibrillation with RVR: Status: Acute (4) End stage kidney disease: Status: Acute (5) End stage chronic kidney disease: Status: Acute (6) COPD (chronic obstructive pulmonary disease): Status: Acute Permanent problem details: Reports he is on 4 L of oxygen at home Reason for Visit Reason for Visit: CP & SOB Hospital Course Hospital Course 48-year-old male with history of A-fib, end-stage renal disease, chronic hypoxia, uses up to 6 L of oxygen at home, presented with shortness of breath, he was diagnosed with A-fib RVR required Cardizem drip, we were able to switch him to p.o. Cardizem within 6 to 8 hours of his admission, patient remained stable on 4 L, remained afebrile, he did not complain of chest pain, however his baseline troponin seems to be very high considering underlying chronic kidney disease, he did not complain of any shortness of breath or chest pain during hospitalization, we optimized his antihypertensive regimen, I have requested hris specialist to recommend further medications at the time of discharge, on Thursday he will be dialysis and then discharged home, will repeat BMP after dialysis, his chest x-ray is consistent with chronic fibrotic changes with underlying fluid overload, I am anticipating he will do better if he stay compliant with his dialysis schedule at this point I will only add doxycycline for next 3 days. Physical Exam Narrative: Patient doing well on 4 L cannula Awake and alert Mild sign of fluid overload Pleasant cooperative Abdomen soft Discharge Data Studies Completed and Pending Completed Studies During Hospitalization Category Date Time Status CXRP [XR chest 1V portable [id number]] Stat Exams 01/17/24 06:18 Completed Radiology Impressions Chest X-Ray 01/17/24 06:18 IMPRESSION: Severe chronic pulmonary fibrosis. Laboratory Results WBC 8.67 10^3/uL (3.29-11.43) 01/17/24 06:15 RBC 3.95 10^6/uL (3.85-5.65) 01/17/24 06:15 Hgb 12.10 g/dL (11.27-16.99) 01/17/24 06:15 Hct 39.1 % (37-53) 01/17/24 06:15 MCV 99.0 fl (82-101) 01/17/24 06:15 MCH 30.6 pg (27-33) 01/17/24 06:15 MCHC 30.9 g/dL (30-55) 01/17/24 06:15 RDW 14.8 % (12.1-15.1) 01/17/24 06:15 Plt Count 203 10^3/cmm (157-399) 01/17/24 06:15 MPV 9.9 fL (7.4-10.4) 01/17/24 06:15 Neut % (Auto) 77.7 % 01/17/24 06:15 Lymph % (Auto) 5.3 % 01/17/24 06:15 [place] % (Auto) 14.8 % 01/17/24 06:15 Eos % (Auto) 1.2 % 01/17/24 06:15 Baso % (Auto) 0.5 % 01/17/24 06:15 Neut # (Auto) 6.75 10^3/uL (1.8-7.7) 01/17/24 06:15 Lymph # (Auto) 0.5 10^3/uL (0.8-4.8) L 01/17/24 06:15 [place] # (Auto) 1.3 10^3/uL (0.2-0.9) H 01/17/24 06:15 Eos # (Auto) 0.1 10^3/uL (0.0-0.8) 01/17/24 06:15 Baso # (Auto) 0.0 10^3/uL (0.0-0.1) 01/17/24 06:15 Nucleated RBC % (auto) 0 % 01/17/24 06:15 Nucleated RBCs # 0.0 /100WBC 01/17/24 06:15 Sodium 127 mmol/L (136-145) L 01/18/24 05:55 Potassium 6.7 mmol/L (3.5-5.1) H* D 01/18/24 05:55 Chloride 89 mmol/L (98-107) L 01/18/24 05:55 Carbon Dioxide 21 mmol/L (22-29) L 01/18/24 05:55 Anion Gap 23.7 (5-19) H 01/18/24 05:55 BUN 106 mg/dL (6-20) H* 01/18/24 05:55 Creatinine 11.5 mg/dL (0.7-1.2) H* 01/18/24 05:55 GFR Calculation 4.7 mL/min (90-130) L 01/18/24 05:55 Glucose 148 mg/dL (65-115) H 01/18/24 05:55 Calculated Osmolality 300 mOsm/kg (285-295) H 01/18/24 05:55 Calcium 8.3 mg/dL (8.5-10.5) L 01/18/24 05:55 Magnesium 2.0 mg/dL (1.7-2.3) 01/18/24 05:55 Troponin T Baseline 105 ng/L (0-15) H* 01/17/24 06:15 Troponin T 120 Minute 103.1 ng/L (0-15) H 01/17/24 08:21 Delta Troponin T -1.9 ABS# (0-10) L 01/17/24 08:21 Troponin T Hi Sens 6Hr 95.11 ng/L (0-15) H 01/17/24 12:21 Troponin T Hi Sens 6Hr Delta -9.89 ng/L (0-12) L 01/17/24 12:21 NT-Pro-B Natriuret Pep > 85966 pg/mL (0-125) H 01/17/24 06:15 Hep Bs Antigen Non-reactive (Nonreactive) 01/18/24 05:55 Hep Bs Antibody < 3.5 (11.5-1000) L 01/18/24 05:55 Vitals Last Vital Signs Temp 98.8 F 01/18/24 10:37 Pulse 85 01/18/24 10:37 Resp 18 01/18/24 10:37 BP 166/96 01/18/24 10:37 Pulse Ox 91 01/18/24 07:41 O2 Del Method Nasal Cannula 01/18/24 07:41 O2 Flow Rate 4 10/21/24 07:41 Discharge Plan Discharge Patient Disposition: Home Condition: Stable Prescriptions: New clonidine HCl 0.1 mg tablet 0.1 mg PO Q6H PRN (Reason: bp>200/110mmhg) Qty: 20 0RF Rx Instructions: do not exceed 5 doses per 24 hrs Continued RenaPlex-D 800 mcg-12.5 mg -2,000 unit tablet 1 tab PO DAILY (DME) Home oxygen See Rx Instructions .Route .MEDSUPPLY Qty: 1 0RF Rx Instructions: As directed ondansetron 4 mg tablet,disintegrating 4 mg PO Q8H PRN (Reason: nausea and vomiting) Qty: 30 1RF atorvastatin 40 mg tablet 40 mg PO BEDTIME Qty: 30 0RF pantoprazole 40 mg tablet,delayed release (DR/EC) 40 mg PO BID Qty: 180 1RF citalopram 20 mg tablet 20 mg PO QAM Qty: 30 5RF acetaminophen 500 mg Tablet 1,000 mg PO Q4H PRN (Reason: Pain) diltiazem HCl 240 mg capsule,extended release 24hr 240 mg PO QAM furosemide 80 mg tablet 80 mg PO BID Eliquis 5 mg tablet 2.5 mg PO BID hydralazine 25 mg Tablet 75 mg PO TID Qty: 90 3RF isosorbide mononitrate 120 mg tablet extended release 24 hr 120 mg PO QAM PRN (Reason: Sbp more than 150 mmhg) Qty: 30 0RF carvedilol 6.25 mg Tablet 6.25 mg PO BID Rx Instructions: must administer with a meal/food levetiracetam 500 mg Tablet 500 mg PO BID doxycycline hyclate 100 mg Capsule,Delayed Release(Dr/Ec) 100 mg PO DAILY famotidine 40 mg Tablet 40 mg PO BID cyanocobalamin (vitamin B-12) 1,000 mcg Tablet 1,000 mcg PO DAILY hydralazine 100 mg Tablet 100 mg PO TID ipratropium-albuterol 18-103 mcg/actuation Aerosol 18 - 103 spray INHALATION DIRECTED aspirin 81 mg Capsule 81 mg PO DAILY trazodone 150 mg tablet 150 mg PO BEDTIME Discharge Orders: Discharge Order (Routine); Ordered 01/18/24 Ordered By: Paulino Benavidez Referrals: Ras Joy [Primary Care Provider] - Discharge Diet: Cardiac and Low Salt Discharge Activity: Increase activity as tolerated Patient Instructions: Opioid Safety Discharge Attestations Time Spent in Discharge Care*: greater than 30 min Status at Discharge: Cognitive status at discharge: cognitively intact , Behavioral status at discharge: [facility] , Quality Metrics Clinical Quality Measures [ No reported AMI, CVA or VTE this stay] Coding Level of Care Code Acute Code for Chg Fwd Diagnoses Uncontrolled hypertension I10 Chronic diastolic congestive heart failure I50.32 Heart failure chronicity: chronic Atrial fibrillation with RVR I48.91 End stage kidney disease N18.6 End stage chronic kidney disease N18.6 Chronic obstructive pulmonary disease, unspecified COPD type J44.9
--- NOTE | 2024-01-18 11:37 | PC.NURSE ---
Patient currently in dialysis
[2024-01-18 14:52] LABS: Chloride 90 mmol/L (98-107); Potassium 3.9 mmol/L (3.5-5.1); Sodium 134 mmol/L (136-145)
--- NOTE | 2024-01-18 15:04 | PC.NURSE ---
Patient received from dialysis.
[2024-01-18 15:24] LABS: Anion Gap 20.8 (5-19); Blood Urea Nitrogen 50 mg/dL (6-20); Calcium 8.7 mg/dL (8.5-10.5); Carbon Dioxide 27 mmol/L (22-29); Glucose 102 mg/dL (65-115); Osmolality Calculated 296 mOsm/kg (285-295)
[2024-01-18 15:25] LABS: Creatinine Clr Calc Pharmacy 14.9697
--- NOTE | 2024-01-18 16:00 | PC.NURSE ---
Patient discharged to home. Instruction provided regarding follow up appointment and new medication. Patient verbalized complete understanding. Patient had home o2 at bedside. Patient taken by wheelchair to private vehicle.
== END 2024-01-18 15:30 | disposition home or self-care (01) ==
LOC: ER 07:58 → CSU 08:04
PROVIDERS: Hospitalist; Admitting Provider Internal Medicine; Emergency Provider Emergency Medicine; PCP Family Medicine; Visit Provider Internal Medicine
DX: I48.0 Paroxysmal atrial fibrillation (principal); I13.0 Hypertensive heart and chronic kidney disease with heart failure and stage 1 through stage 4 chronic kidney disease, or unspecified chronic kidney disease; N18.6 End stage renal disease; I50.32 Chronic diastolic (congestive) heart failure; J44.9 Chronic obstructive pulmonary disease, unspecified; R09.02 Hypoxemia; Z99.81 Dependence on supplemental oxygen; G47.33 Obstructive sleep apnea (adult) (pediatric); Z86.711 Personal history of pulmonary embolism; K21.9 Gastro-esophageal reflux disease without esophagitis; F17.210 Nicotine dependence, cigarettes, uncomplicated
CPT/HCPCS: 36415; 71045; 80048; 83735; 83880; 84484; 85025; 86706; 87340; 90935; 93005; 96365; 96366; 96367; 96375; 96376; 99285; G0378; J0360; J2270; J2405; J2919; J3490

== ENCOUNTER 2024-01-25 23:57 | Emergency (ER) | payer MEDICARE, SELFPAY ==
[2024-01-25 23:59] VITALS: BP 168/119; PULSE 125; RESP 20; TEMP 36.7; O2SAT 92; BMI 27.2
[2024-01-26] VITALS (24 sets, daily range): BP systolic 119–169; BP diastolic 82–127; PULSE 10–125; RESP 13–27; O2SAT 94–100
--- NOTE | 2024-01-26 00:01 | XRR_ITS ---
PROCEDURE INFORMATION: Exam: XR Chest Exam date and time: 01/26/2024 12:18 AM Age: 48 years old Clinical indication: Shortness of breath; Prior surgery; Surgery date: 6+ months; Surgery type: Dialysis catheter TECHNIQUE: Imaging protocol: Radiologic exam of the chest. Views: 1 view. COMPARISON: CR (CHEST, ) 01/17/2024 6:21 AM FINDINGS: Tubes, catheters and devices: Right chest wall tunneled hemodialysis catheter. Lungs: Resolution of interstitial prominence likely representing decreased pulmonary edema. Probable mild residual edema. Pleural spaces: Trace bilateral pleural effusions. No pneumothorax. Heart/Mediastinum: Mild cardiomegaly. Heart size is suboptimally evaluated due to patient rotation. Vasculature: Atherosclerotic calcifications of the aorta are noted. Bones/joints: Stable erosive change of the left humeral head. XR/XR chest 1V portable [id number] IMPRESSION: 1. Trace bilateral pleural effusions. 2. Decreased interstitial prominence compared to prior study likely representing improving pulmonary edema.
--- NOTE | 2024-01-26 00:04 | ECG_ITS ---
[employer] Test Date: 2024-01-26 Pat Name: Leopoldo Schaefer Department: Room: Gender: Male Card Lacer: : 1975 Requested By: Cecy Stevens Order Number: [id number] Vaughn MD: Shanna Sosa M.D. Measurements Intervals [place] Rate: 121 P: 0 [place]: 0 QRS: 54 QRSD: 105 T: 68 QT: 322 QTc: 457 Interpretive Statements ATRIAL FIBRILLATION WITH RAPID VENTRICULAR RESPONSE NONSPECIFIC T-WAVE ABNORMALITY ABNORMAL RHYTHM ECG Compared to ECG 01/17/2024 11:52:09 T-wave abnormality now present Electronically Signed On 01-26-2024 00:47:51 CDT by Shanna Sosa M.D. [email or web address]
[2024-01-26] MEDS: albuterol 2.5 mg/3 mL Neb INHALATION (00:10)
[2024-01-26] MEDS: ipratropium-albuterol 3 mL Neb INHALATION (00:10)
[2024-01-26] MEDS: methylPREDNISolone sod succ 125 mg/2 mL INJ IVP (00:12)
--- NOTE | 2024-01-26 00:17 | ED_ITS ---
HPI - SOB/Dyspnea 2 General: Chief Complaint: Shortness of Breath/Dyspnea Stated Complaint: Resp distress Time Seen by Provider: 01/26/24 00:01 History of Present Illness: HPI Narrative: 48-year-old man with end-stage renal dis ease on dialysis who did go to dialysis earlier today, chronic hypoxemic respiratory failure on 6 L nasal cannula he says, atrial fibrillation, chronic anticoagulation on Eliquis, anemia, CHF, COPD, who presents to the emergency room with shortness of breath. He says it started a few hours ago. Apparently electricity was out of the house so his concentrator was not working. He was off his oxygen momentarily whenever EMS arrived. Related Data Home Medications Medication Instructions Recorded Confirmed vit B,C-folic ac 800 mcg-zinc 12.5 1 tab PO DAILY 06/09/19 01/17/24 mg-selen-D3 2,000 unit-vit E tablet (RenaPlex-D) acetaminophen 500 mg tablet 1,000 mg PO Q4H PRN Pain 02/15/21 01/17/24 diltiazem HCl 240 mg 240 mg PO QAM 10/14/21 01/17/24 capsule,extended release 24 hr apixaban 5 mg tablet (Eliquis) 2.5 mg PO BID 09/14/23 01/17/24 furosemide 80 mg tablet 80 mg PO BID 09/14/23 01/17/24 aspirin 81 mg capsule 81 mg PO DAILY 01/17/24 01/17/24 carvedilol 6.25 mg tablet 6.25 mg PO BID 01/17/24 01/17/24 cyanocobalamin (vitamin B-12) 1,000 mcg PO DAILY 01/17/24 01/17/24 1,000 mcg tablet doxycycline hyclate 100 mg 100 mg PO DAILY 01/17/24 01/17/24 capsule,delayed release famotidine 40 mg tablet 40 mg PO BID 01/17/24 01/17/24 hydralazine 100 mg tablet 100 mg PO TID 01/17/24 01/17/24 ipratropium 18 mcg-albuterol 103 18 - 103 spray inhalation 01/17/24 01/17/24 mcg/actuation aerosol inhaler DIRECTED levetiracetam 500 mg tablet 500 mg PO BID 01/17/24 01/17/24 trazodone 150 mg tablet 150 mg PO BEDTIME 01/17/24 01/17/24 Previous Rx's Medication Instructions Recorded Home oxygen #1 ea 08/07/20 ondansetron 4 mg disintegrating 4 mg PO Q8H PRN nausea and 04/16/22 tablet vomiting #30 tabs atorvastatin 40 mg tablet 40 mg PO BEDTIME #30 tabs 05/16/22 pantoprazole 40 mg tablet,delayed 40 mg PO BID #180 tabs 05/16/22 release citalopram 20 mg tablet 20 mg PO QAM #30 tabs 09/08/22 hydralazine 25 mg tablet 75 mg (3 x 25 mg) PO TID #90 tabs 10/23/23 isosorbide mononitrate 120 mg 120 mg PO QAM PRN Sbp more than 10/23/23 tablet,extended release 24 hr 150 mmhg #30 tabs clonidine HCl 0.1 mg tablet 0.1 mg PO Q6H PRN bp>200/110mmhg 01/18/24 #20 tabs Allergies Allergy/AdvReac Type Severity Reaction Status Date / Time lisinopril Allergy swelling Verified 01/26/24 00:02 Penicillins Allergy ALGY-Hives Verified 01/26/24 00:02 tramadol Allergy ALGY-Hives Verified 01/26/24 00:02 Review of Systems 2 Narrative: Constitutional symptoms: Negative except as documented in HPI. Skin symptoms: Negative except as documented in HPI. Eye symptoms: Negative except as documented in HPI. ENMT symptoms: Negative except as documented in HPI. Respiratory symptoms: Negative except as documented in HPI. Cardiovascular symptoms: Negative except as documented in HPI. Gastrointestinal symptoms: Negative except as documented in HPI. Genitourinary symptoms: Negative except as documented in HPI. Musculoskeletal symptoms: Negative except as documented in HPI. Neurologic symptoms: Negative except as documented in HPI. Psychiatric symptoms: Negative except as documented in HPI. Endocrine symptoms: Negative except as documented in HPI. PFSH ED 2 PFSH: Medical History Uncontrolled hypertension Hypoglycemia Atrial fibrillation with RVR COPD exacerbation Pulmonary edema Non-compliance with renal dialysis End stage renal disease Anxiety and depression Pneumonia Obstructive sleep apnea Allergic dermatitis ESRD (end stage renal disease) Pleural effusion Dialysis patient Hypertensive emergency Atrial fibrillation/flutter Chest pain Elevated troponin Resistant hypertension Paroxysmal atrial fibrillation with RVR End stage chronic kidney disease Anemia Diastolic CHF Sebaceous cyst GERD (gastroesophageal reflux disease) Insomnia COPD (chronic obstructive pulmonary disease) Reports he is on 4 L of oxygen at home Hypoxia Anxiety and depression Lower respiratory tract infection Encounter to establish care Vitamin D deficiency Hypertension CRF (chronic renal failure) Surgical History S/P hemodialysis catheter insertion H/O hand surgery right hand with hardware H/O circumcision Presence of peritoneal dialysis catheter S/P dialysis catheter insertion (12/12/19) Removed on 04/04/2020 Family History Other Adopted Denies family history of Anesthesia complication Bleeding disorder Social History Smoking and tobacco/nicotine status: current every day tobacco/nicotine user (1ppd X26 years) cigarettes [ Other cigarette details: On and off quitting and restarting] Alcohol intake: never Substance/Drug Use: never Household members: significant other Marital status: Single Current occupational status: disabled Physical Exam 2 Narrative: EXAM NARRATIVE: General: Alert, no acute distress. Skin: Warm, dry. Head: Normocephalic, atraumatic. Neck: Supple, trachea midline. Eye: Extraocular movements are intact. Ears, nose, mouth and throat: mucosa moist. Cardiovascular: Irregularly irregular, tachycardic,, Normal peripheral perfusion. Respiratory: Lungs are clear to auscultation, respirations are non-labored, breath sounds are equal, Symmetrical chest wall expansion. Gastrointestinal: Soft, Nontender, Non distended Musculoskeletal: Normal ROM, no deformity. Neurological: Alert and oriented, No focal neurological deficit observed. Psychiatric: Cooperative, appropriate mood & affect. Course 2 Vital Signs: Vital signs: Vital Signs Temperature 98.1 F 01/25/24 23:59 Pulse Rate 95 01/26/24 02:34 Respiratory Rate 14 01/26/24 02:34 Blood Pressure 131/92 01/26/24 02:34 Pulse Oximetry 95 01/26/24 02:34 Oxygen Delivery Me thod Nasal Cannula 01/26/24 02:34 Oxygen Flow Rate 3 01/26/24 02:34 MDM - SOB/Dyspnea Medical Decision Making Differential diagnosis for patient with shortness of breath includes but is not limited to and based on the above HPI, review of systems and physical exam: Pneumonia. Bronchitis. Asthma or COPD with acute exacerbation. Acute coronary syndrome / CA. Pulmonary embolism. Anxiety. Congestive heart failure. Viral infections including influenza and Covid-19. Atrial fibrillation. Anxiety. Pleural effusion. Pneumothorax. Orders placed to evaluate differential diagnosis based on the above differential, HPI and physical exam EKG: Time 12:04 AM. Rate 121. Atrial fibrillation with rapid ventricular response, No ST-T changes, no ectopy, This was reviewed and interpreted by myself the ER physician at12 06 AM Repeat EKG: Time 1:58 AM. Rate 91. PVCs. Atrial fibrillation with controlled rate, No ST-T changes, This was reviewed and interpreted by myself the ER physician at 2:02 AM. Rate has decreased by about 30 bpm Chest x-ray: Cardiomegaly, possible early congestive heart failure. This was reviewed and interpreted by myself the emergency room physician. I also reviewed the radiology report. Lab Review: Laboratory results were reviewed and interpreted by myself the emergency room physician. No leukocytosis. Hemoglobin 10.3. Potassium is normal at 4.7. BUN and creatinine are elevated at 37 and 6.5 which would be expected in this dialysis patient. Second troponin was around 120. No change. This is likely his baseline from being on dialysis I reviewed the patient's medical record. Reexamination: Patient has remained in A-fib. Heart rates jumped around from the 80s to the 1 teens. Stable on 2 to 3 L nasal cannula. No altered mental status. No focal motor deficits. Consultation: I spoke to the hospitalist about possible admission to observation since patient does not have oxygen at home. He does not feel the patient qualifies for admission. He recommends a hotel. I did bring up the fact that he does not have his concentrator here and if he cannot pay his electric bill he likely cannot afford a hotel this morning. Either way I guess we will just watch him here in the emergency room until he can get oxygen at home. Assessment and plan: Chronic hypoxemic respiratory failure A-fib with RVR ?It appears that the shortness of breath was secondary to the patient not being on his oxygen. No overt acute findings that would suggest otherwise. - Discharged home - Discussed plan with patient. Answered any questions. - Evaluation and treatment of this problem were appropriate in the emergency setting. Lab Data 01/26/24 00:33 01/26/24 00:33 Labs/Radiology: Radiology Impressions Chest X-Ray 01/26/24: IMPRESSION: 1. Trace bilateral pleural effusions. 2. Decreased interstitial prominence compared to prior study likely representing improving pulmonary edema. Laboratory Results WBC 6.23 10^3/uL (3.29-11.43) 01/26/24: RBC 3.34 10^6/uL (3.85-5.65) L 01/26/24 00: Hgb 10.30 g/dL (11.27-16.99) L 01/26/24 00: Hct 33.0 % (37-53) L 01/26/24: MCV 98.8 fl (82-101) 01/26/24 00: MCH 30.8 pg (27-33) 01/26/24: MCHC 31.2 g/dL (30-55) 01/26/24 00: RDW 14.5 % (12.1-15.1) 01/26/24 00: Plt Count 225 10^3/cmm (157-399) 01/26/24 00: MPV 9.3 fL (7.4-10.4) 01/26/24 00: Neut % (Auto) 69.3 % 01/26/24 00: Lymph % (Auto) 14.1 % 01/26/24 00: [place] % (Auto) 12.2 % 01/26/24: Eos % (Auto) 3.5 % 01/26/24: Baso % (Auto) 0.6 % 01/26/24 00: Neut # (Auto) 4.31 10^3/uL (1.8-7.7) 01/26/24 00: Lymph # (Auto) 0.9 10^3/uL (0.8-4.8) 01/26/24 00: [place] # (Auto) 0.8 10^3/uL (0.2-0.9) 01/26/24 00: Eos # (Auto) 0.2 10^3/uL (0.0-0.8) 01/26/24 00:33 Baso # (Auto) 0.0 10^3/uL (0.0-0.1) 01/26/24 00:33 Nucleated RBC % (auto) 0 % 01/26/24 00:33 Nucleated RBCs # 0.0 /100WBC 01/26/24 00:33 Specimen Type Arterial 01/26/24 00:12 Sample Site Radial, left 01/26/24 00:12 ABG pH 7.43 (7.35-7.45) 01/26/24 00:12 ABG pCO2 48.0 mmHg (35-45) H 01/26/24 00:12 ABG pO2 70.6 mmHg (80.0-100.0) L 01/26/24 00:12 ABG HCO3 31.6 mmol/L (22-26) H 01/26/24 00:12 ABG O2 Saturation 94.9 01/26/24 00:12 ABG Base Excess 6.4 mmol/L (-2.0-2.0) H 01/26/24 00:12 Shantanu Test Pos 01/26/24 00:12 A-a O2 Gradient 2.6 mmHg (5-10) L 01/26/24 00:12 Hematocrit 32.5 % (42-52) L 01/26/24 00:12 Hgb O2 Saturation 92.3 % (95-100) L 01/26/24 00:12 Carboxyhemoglobin 1.5 %THgb (0.4-20.1) 01/26/24 00:12 Methemoglobin 1.4 % (0.4-1.5) 01/26/24 00:12 Total Hemoglobin 10.6 g/dL (14-18) L 01/26/24 00:12 Sodium 139.0 mmol/L (131-143) 01/26/24 00:12 Potassium 4.4 mmol/L (3.5-5.0) 01/26/24 00:12 Glucose 77.0 mg/dL (70-115) 01/26/24 00:12 Ionized Calcium 1.1 mmol/L (1.1-1.4) 01/26/24 00:12 O2 Delivery Device Nc 01/26/24 00:12 O2 Liters/Min 2.0 % 01/26/24 00:12 Printed Forms Proofreader ID [email or web address] 01/26/24 00:12 Sodium 138 mmol/L (136-145) 01/26/24 00:33 Potassium 4.7 mmol/L (3.5-5.1) 01/26/24 00:33 Chloride 96 mmol/L (98-107) L 01/26/24 00:33 Carbon Dioxide 30 mmol/L (22-29) H 01/26/24 00:33 Anion Gap 16.7 (5-19) 01/26/24 00:33 BUN 37 mg/dL (6-20) H 01/26/24 00:33 Creatinine 6.5 mg/dL (0.7-1.2) H* 01/26/24 00:33 GFR Calculation 9.1 mL/min (90-130) L 01/26/24 00:33 Glucose 81 mg/dL (65-115) 01/26/24 00:33 Calculated Osmolality 294 mOsm/kg (285-295) 01/26/24 00:33 Lactic Acid 0.6 mmol/L (0.5-2.2) 01/26/24 00:33 Calcium 8.4 mg/dL (8.5-10.5) L 01/26/24 00:33 Total Bilirubin 0.4 mg/dL (0.15-1.2) 01/26/24 00:33 AST 15 U/L (0-40) 01/26/24 00:33 ALT 14 U/L (0-41) 01/26/24 00:33 Alkaline Phosphatase 134 U/L (40-130) H 01/26/24 00:33 Troponin T Baseline 122 ng/L (0-15) H* 01/26/24 00:33 Troponin T 120 Minute 120.8 ng/L (0-15) H 01/26/24 02:45 Delta Troponin T -1.2 ABS# (0-10) L 01/26/24 02:45 Total Protein 6.2 g/dL (6.6-8.7) L 01/26/24 00:33 Albumin 3.8 g/dL (3.5-5.2) 01/26/24 00:33 Globulin 2.4 g/dL (1.3-4.6) 01/26/24 00:33 All radiology interpretation(s) finalized by discharge Discharge Plan Discharge Patient Disposition: Home Clinical Impression: Chronic hypoxemic respiratory failure, Atrial fibrillation with rapid ventricular response Condition: Stable Prescriptions: No Action RenaPlex-D 800 mcg-12.5 mg -2,000 unit tablet 1 tab PO DAILY (DME) Home oxygen See Rx Instructions .Route .MEDSUPPLY Qty: 1 0RF Rx Instructions: As directed ondansetron 4 mg tablet,disintegrating 4 mg PO Q8H PRN (Reason: nausea and vomiting) Qty: 30 1RF atorvastatin 40 mg tablet 40 mg PO BEDTIME Qty: 30 0RF pantoprazole 40 mg tablet,delayed release (DR/EC) 40 mg PO BID Qty: 180 1RF citalopram 20 mg tablet 20 mg PO QAM Qty: 30 5RF acetaminophen 500 mg Tablet 1,000 mg PO Q4H PRN (Reason: Pain) diltiazem HCl 240 mg capsule,extended release 24hr 240 mg PO QAM furosemide 80 mg tablet 80 mg PO BID Eliquis 5 mg tablet 2.5 mg PO BID hydralazine 25 mg Tablet 75 mg PO TID Qty: 90 3RF isosorbide mononitrate 120 mg tablet extended release 24 hr 120 mg PO QAM PRN (Reason: Sbp more than 150 mmhg) Qty: 30 0RF carvedilol 6.25 mg Tablet 6.25 mg PO BID Rx Instructions: must administer with a meal/food levetiracetam 500 mg Tablet 500 mg PO BID doxycycline hyclate 100 mg Capsule,Delayed Release(Dr/Ec) 100 mg PO DAILY famotidine 40 mg Tablet 40 mg PO BID cyanocobalamin (vitamin B-12) 1,000 mcg Tablet 1,000 mcg PO DAILY hydralazine 100 mg Tablet 100 mg PO TID ipratropium-albuterol 18-103 mcg/actuation Aerosol 18 - 103 spray INHALATION DIRECTED aspirin 81 mg Capsule 81 mg PO DAILY trazodone 150 mg tablet 150 mg PO BEDTIME clonidine HCl 0.1 mg tablet 0.1 mg PO Q6H PRN (Reason: bp>200/110mmhg) Qty: 20 0RF Rx Instructions: do not exceed 5 doses per 24 hrs Discharge Orders: Discharge ED (Routine); Ordered 01/26/24 Ordered By: Cecy Anderson Referrals: Ras Joy [Primary Care Provider] - Discharge Diet: Usual diet Discharge Activity: Increase activity as tolerated Patient Instructions: Chronic Respiratory Failure (DC) Activity Restrictions/Additional Instructions: Thank you for choosing [facility] for your healthcare needs today. Please realize this is an emergency room and that we are providing you with a medical screening exam and this may not be complete and all inclusive of all the testing and or work up that you may need to determine your ailment or severity of your illness. You have been screened and evaluated and felt safe for discharge. Health conditions do change or evolve sometimes and as such it is important that you follow up with your Primary Doctor to be re checked, 3-5 days is a general good time frame for follow up. You are always welcome to return to the ED for re assessment if your symptoms are worsening or you have new concerns Coding Level of Care Code ED Information Technology Technician for Shilpa Phillips
[2024-01-26 00:25] LABS: ABG PH Result 7.43 (7.35-7.45); Alveolar-Arterial Oxygen Gradi 2.6 mmHg (5-10); Arterial Blood Gas Hematocrit 32.5 % (42-52); Base Excess ABG 6.4 mmol/L (-2.0-2.0); Blood Gas Allen Test Pos; Blood Gas Sample Site Radial, left; Blood Gas Sample Type Arterial; Carboxyhemoglobin 1.5 %THgb (0.4-20.1); HCO3 ABG 31.6 mmol/L (22-26); HGB O2 Sat 92.3 % (95-100); Ionized Calcium Level - ABG 1.1 mmol/L (1.1-1.4); Methemoglobin 1.4 % (0.4-1.5); Oxygen Device NC; Oxygen Saturation ABG 94.9; PO2 ABG 70.6 mmHg (80.0-100.0); Potassium Level - ABG 4.4 mmol/L (3.5-5.0); Total Hemoglobin 10.6 g/dL (14-18)
[2024-01-26 00:42] LABS: Basophils % 0.6 %; Eosinophils # 0.2 10^3/uL (0.0-0.8); Eosinophils % 3.5 %; Lymphocytes # 0.9 10^3/uL (0.8-4.8); Lymphocytes % 14.1 %; Mean Corpuscular HGB Conc 31.2 g/dL (30-55); Mean Corpuscular Hemoglobin 30.8 pg (27-33); Mean Corpuscular Volume 98.8 fl (82-101); Mean Platelet Volume 9.3 fL (7.4-10.4); Monocytes # 0.8 10^3/uL (0.2-0.9); Monocytes % 12.2 %; Neutrophils # 4.31 10^3/uL (1.8-7.7); Neutrophils % 69.3 %; Nucleated Red Blood Cells % 0 %; Platelet Count 225 10^3/cmm (157-399); Red Blood Count 3.34 10^6/uL (3.85-5.65); Red Cell Distribution Width 14.5 % (12.1-15.1); White Blood Count 6.23 10^3/uL (3.29-11.43)
[2024-01-26] MEDS: labetalol 5 mg/mL SDV 20mL 20 MG IVP (00:56)
[2024-01-26 01:02] LABS: Lactic Sepsis W/Reflex 0.6 mmol/L (0.5-2.2)
[2024-01-26 01:03] LABS: Albumin Level 3.8 g/dL (3.5-5.2); Potassium 4.7 mmol/L (3.5-5.1); Sodium 138 mmol/L (136-145)
[2024-01-26 01:10] LABS: Troponin(5th) Baseline 122 ng/L (0-15)
[2024-01-26 01:23] LABS: Alanine Aminotransferase 14 U/L (0-41); Alkaline Phosphatase 134 U/L (40-130); Aspartate Amino Transferase 15 U/L (0-40); Blood Urea Nitrogen 37 mg/dL (6-20); Calcium 8.4 mg/dL (8.5-10.5); Carbon Dioxide 30 mmol/L (22-29); Creatinine Clr Calc Pharmacy 15.0525; Globulin 2.4 g/dL (1.3-4.6); Glomerular Filtration Rate 9.1 mL/min (90-130); Glucose 81 mg/dL (65-115); Osmolality Calculated 294 mOsm/kg (285-295); Total Bilirubin 0.4 mg/dL (0.15-1.2); Total Protein 6.2 g/dL (6.6-8.7)
[2024-01-26 01:24] LABS: Anion Gap 16.7 (5-19); Chloride 96 mmol/L (98-107)
--- NOTE | 2024-01-26 02:02 | ECG_ITS ---
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 Measurements Intervals [place] Rate: 91 P: 0 CT: 0 QRS: 47 QRSD: 105 T: 67 QT: 390 QTc: 480 Interpretive Statements ATRIAL FIBRILLATION WITH ABERRANT CONDUCTION OR VENTRICULAR PREMATURE COMPLEXES ABNORMAL RHYTHM ECG Compared to ECG 01/26/2024 00:04:54 Ventricular premature complex(es) now present Aberrant conduction of supraventricular beat(s) now present, OTHERWISE NO CHANGE Electronically Signed On 01-26-2024 11:14:30 CDT by Rosemarie Duong M.D. [id number]
[2024-01-26 03:13] LABS: Troponin 5 2HR Delta -1.2 ABS# (0-10)
[2024-01-26 03:15] LABS: Troponin 5 2HR 120.8 ng/L (0-15)
--- NOTE | 2024-01-26 08:02 | ECG_ITS ---
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 Measurements Intervals [place] Rate: 102 P: 0 ND: 0 QRS: 21 QRSD: 112 T: 82 QT: 359 QTc: 468 Interpretive Statements ATRIAL FIBRILLATION WITH RAPID VENTRICULAR RESPONSE WITH ABERRANT CONDUCTION OR VENTRICULAR PREMATURE COMPLEXES POSSIBLE LEFT VENTRICULAR HYPERTROPHY [VOLTAGE CRITERIA PLUS LAE OR QRS WIDENING] Compared to ECG 01/26/2024 01:58:41, A fib rate is increased . Otherwise no significant changes Electronically Signed On 01-26-2024 11:10:37 CDT by Rosemarie Duong M.D. [id number]
--- NOTE | 2024-01-26 09:25 | PC.SOCIAL ---
Electricity DOLLY called [employer] at [phone] and spoke with Natalee. She reports that patient's electric is on. She states that someone made a payment to account last night and it is turned back on. She states that patient signed up for prepay and they have to keep money on the account or it gets shut off. DOLLY alerted her that he requires oxygen 24/7, and asked that she note that on his account so that it is not shut off in the future. She states, we don't fall under public guideline, we try to follow but we can't guarantee it won't be shut off. She states that use is $1.49/day as a flat rate, and then their usage fees. She states that patient will need to make a payment again soon, or he will be at risk of shut off again. Copy of the pulse and community resources provided to patient to reach out to for assistance if needed.
== END 2024-01-26 19:25 | disposition home or self-care (01) ==
PROVIDERS: Emergency Provider Emergency Medicine; PCP Family Medicine
DX: J96.11 Chronic respiratory failure with hypoxia (principal); I48.20 Chronic atrial fibrillation, unspecified; Z79.01 Long term (current) use of anticoagulants; Z99.81 Dependence on supplemental oxygen; Z79.82 Long term (current) use of aspirin; I13.2 Hypertensive heart and chronic kidney disease with heart failure and with stage 5 chronic kidney disease, or end stage renal disease; N18.6 End stage renal disease; I50.30 Unspecified diastolic (congestive) heart failure; F17.210 Nicotine dependence, cigarettes, uncomplicated; I1A.0 Resistant hypertension; J44.1 Chronic obstructive pulmonary disease with (acute) exacerbation
CPT/HCPCS: 36415; 36600; 71045; 80051; 80053; 82330; 82805; 83605; 84484; 85025; 93005; 94640; 96374; 96375; 99285; J2919; J3490; J7613

== ENCOUNTER 2024-03-15 22:42 | Inpatient (IN) | payer MEDICARE, SELFPAY ==
[2024-03-15 22:43] VITALS: BP 177/122; PULSE 111; RESP 20; TEMP 37.3; O2SAT 99; BMI 26.5
--- NOTE | 2024-03-15 22:46 | XRR_ITS ---
PROCEDURE INFORMATION: Exam: XR Chest Exam date and time: 03/15/2024 11:19 PM Age: 48 years old Clinical indication: Shortness of breath; Prior surgery; Surgery date: 6+ months; Surgery type: Dialysis port TECHNIQUE: Imaging protocol: Radiologic exam of the chest. Views: 1 view. COMPARISON: CR XR chest 1V portable [id number] 01/26/2024 12:18 AM FINDINGS: Tubes, catheters and devices: Right central venous catheter at the SVC level Lungs: Increased right basilar infiltrate versus atelectasis with small right effusion. No left lung consolidation. Pleural spaces: Small right effusion. No left pleural effusion. No pneumothorax. Heart/Mediastinum: Cardiomegaly. Bones/joints: Unremarkable. XR/XR chest 1V portable [id number] IMPRESSION: 1. Increased right basilar infiltrate versus atelectasis with small right effusion 2. Cardiomegaly.
--- NOTE | 2024-03-15 22:46 | ECG_ITS ---
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 Measurements Intervals [place] Rate: 109 P: 0 SD: 0 QRS: -14 QRSD: 107 T: 85 QT: 331 QTc: 447 Interpretive Statements ATRIAL FIBRILLATION WITH RAPID VENTRICULAR RESPONSE LOW QRS VOLTAGE IN EXTREMITY LEADS [QRS DEFLECTION < 0.5 mV IN LIMB LEADS] ABNORMAL RHYTHM ECG Compared to ECG 01/26/2024 08:02:33 Low QRS voltage now present Aberrant conduction of supraventricular beat(s) no longer present Ventricular premature complex(es) no longer present Electronically Signed On 03-16-2024 21:21:53 COTTON BUYER by Shanna Sosa M.D. [id number]
--- NOTE | 2024-03-15 22:54 | ED_ITS ---
HPI - SOB/Dyspnea 2 General: Chief Complaint: Shortness of Breath/Dyspnea Stated Complaint: SOB Time Seen by Provider: 03/15/24 22:43 History of Present Illness: HPI Narrative: 48-year-old man with end-stage renal dis ease on dialysis who has missed dialysis since last Thursday, chronic hypoxemic respiratory failure on 6 L nasal cannula he says, atrial fibrillation, chronic anticoagulation on Eliquis, anemia, CHF, COPD, who presents to the emergency room with shortness of breath. EMS reports A-fib with RVR and he received diltiazem on the way here. Also breathing treatment. He reports no chest pain at this time. He is hypertensive on presentation and tachycardic at around 111. No new cough. He does state the breathing treatments helped some. He tells me he does not have a ride to dialysis and he will have 1 tomorrow either. Related Data Home Medications Medication Instructions Recorded Confirmed vit B,C-folic ac 800 mcg-zinc 12.5 1 tab PO DAILY 06/09/19 01/17/24 mg-selen-D3 2,000 unit-vit E tablet (RenaPlex-D) acetaminophen 500 mg tablet 1,000 mg PO Q4H PRN Pain 02/15/21 01/17/24 diltiazem HCl 240 mg 240 mg PO QAM 10/14/21 01/17/24 capsule,extended release 24 hr apixaban 5 mg tablet (Eliquis) 2.5 mg PO BID 09/14/23 01/17/24 furosemide 80 mg tablet 80 mg PO BID 09/14/23 01/17/24 aspirin 81 mg capsule 81 mg PO DAILY 01/17/24 01/17/24 carvedilol 6.25 mg tablet 6.25 mg PO BID 01/17/24 01/17/24 cyanocobalamin (vitamin B-12) 1,000 mcg PO DAILY 01/17/24 01/17/24 1,000 mcg tablet doxycycline hyclate 100 mg 100 mg PO DAILY 01/17/24 01/17/24 capsule,delayed release famotidine 40 mg tablet 40 mg PO BID 01/17/24 01/17/24 hydralazine 100 mg tablet 100 mg PO TID 01/17/24 01/17/24 ipratropium 18 mcg-albuterol 103 18 - 103 spray inhalation 01/17/24 01/17/24 mcg/actuation aerosol inhaler DIRECTED levetiracetam 500 mg tablet 500 mg PO BID 01/17/24 01/17/24 trazodone 150 mg tablet 150 mg PO BEDTIME 01/17/24 01/17/24 Previous Rx's Medication Instructions Recorded Home oxygen #1 ea 08/07/20 ondansetron 4 mg disintegrating 4 mg PO Q8H PRN nausea and 04/16/22 tablet vomiting #30 tabs atorvastatin 40 mg tablet 40 mg PO BEDTIME #30 tabs 05/16/22 pantoprazole 40 mg tablet,delayed 40 mg PO BID #180 tabs 05/16/22 release citalopram 20 mg tablet 20 mg PO QAM #30 tabs 09/08/22 hydralazine 25 mg tablet 75 mg (3 x 25 mg) PO TID #90 tabs 10/23/23 isosorbide mononitrate 120 mg 120 mg PO QAM PRN Sbp more than 10/23/23 tablet,extended release 24 hr 150 mmhg #30 tabs clonidine HCl 0.1 mg tablet 0.1 mg PO Q6H PRN bp>200/110mmhg 01/18/24 #20 tabs Allergies Allergy/AdvReac Type Severity Reaction Status Date / Time lisinopril Allergy swelling Verified 03/15/24 22:51 Penicillins Allergy ALGY-Hives Verified 03/15/24 22:51 tramadol Allergy ALGY-Hives Verified 03/15/24 22:51 Review of Systems 2 Narrative: Constitutional symptoms: Negative except as documented in HPI. Skin symptoms: Negative except as documented in HPI. Eye symptoms: Negative except as documented in HPI. ENMT symptoms: Negative except as documented in HPI. Respiratory symptoms: Negative except as documented in HPI. Cardiovascular symptoms: Negative except as documented in HPI. Gastrointestinal symptoms: Negative except as documented in HPI. Genitourinary symptoms: Negative except as documented in HPI. Musculoskeletal symptoms: Negative except as documented in HPI. Neurologic symptoms: Negative except as documented in HPI. Psychiatric symptoms: Negative except as documented in HPI. Endocrine symptoms: Negative except as documented in HPI. PFSH ED 2 PFSH: Medical History Uncontrolled hypertension Hypoglycemia Atrial fibrillation with RVR COPD exacerbation Pulmonary edema Non-compliance with renal dialysis End stage renal disease Anxiety and depression Pneumonia Obstructive sleep apnea Allergic dermatitis ESRD (end stage renal disease) Pleural effusion Dialysis patient Hypertensive emergency Atrial fibrillation/flutter Chest pain Elevated troponin Resistant hypertension Paroxysmal atrial fibrillation with RVR End stage chronic kidney disease Anemia Diastolic CHF Sebaceous cyst GERD (gastroesophageal reflux disease) Insomnia COPD (chronic obstructive pulmonary disease) Reports he is on 4 L of oxygen at home Hypoxia Anxiety and depression Lower respiratory tract infection Encounter to establish care Vitamin D deficiency Hypertension CRF (chronic renal failure) Surgical History S/P hemodialysis catheter insertion H/O hand surgery right hand with hardware H/O circumcision Presence of peritoneal dialysis catheter S/P dialysis catheter insertion (12/12/19) Removed on 04/04/2020 Family History Other Adopted Denies family history of Anesthesia complication Bleeding disorder Social History Smoking and tobacco/nicotine status: current every day tobacco/nicotine user (1ppd X26 years) cigarettes [ Other cigarette details: On and off quitting and restarting] Alcohol intake: never Substance/Drug Use: never Household members: significant other Marital status: Single Current occupational status: disabled Physical Exam 2 Narrative: EXAM NARRATIVE: General: Alert, no acute distress. Skin: Warm, dry. Head: Normocephalic, atraumatic. Neck: Supple, trachea midline. Eye: Extraocular movements are intact. Ears, nose, mouth and throat: Oral mucosa moist. Cardiovascular: Irregularly irregular, tachycardic, Normal peripheral perfusion. Respiratory: coarse, scattered wheeze, mild increased wob. tachypnea, breath sounds are equal, Symmetrical chest wall expansion. Gastrointestinal: Soft, Nontender, Non distended, Normal bowel sounds. Musculoskeletal: Normal ROM, no deformity. Neurological: Alert and oriented to person, place, time, and situation, No focal neurological deficit observed. Psychiatric: Cooperative, appropriate mood & affect. Course 2 Vital Signs: Vital signs: Vital Signs Temperature 99.2 F 03/15/24 22:43 Pulse Rate 132 H 03/16/24 00:45 Respiratory Rate 25 H 03/16/24 00:45 Blood Pressure 191/132 03/16/24 00:45 Pulse Oximetry 98 03/16/24 00:30 Oxygen Delivery Me thod Nasal Cannula 03/16/24 00:05 Oxygen Flow Rate 6 03/16/24 00:05 MDM - SOB/Dyspnea Medical Decision Making Differential diagnosis for patient with shortness of breath includes but is not limited to and based on the above HPI, review of systems and physical exam: Pneumonia. Bronchitis. Asthma or COPD with acute exacerbation. Acute coronary syndrome / OH. Pulmonary embolism. Anxiety. Congestive heart failure. Viral infections including influenza and Covid-19. Atrial fibrillation. Anxiety. Pleural effusion. Pneumothorax. Orders placed to evaluate differential diagnosis based on the above differential, HPI and physical exam EKG: Time 2247. Rate 109. Atrial fibrillation with rapid ventricular response, No ST-T changes, no ectopy, This was reviewed and interpreted by myself the ER physician at 2250. Chest x-ray: Increased right basilar infiltrate versus small right effusion. Cardiomegaly. This was reviewed and interpreted by myself the emergency room physician. I also reviewed the radiology report. Lab Review: Laboratory results were reviewed and interpreted by myself the emergency room physician. No leukocytosis. Stable anemia. Potassium is elevated at 7. I reviewed the patient's medical record. Reexamination: Patient has become a bit more tachycardic so diltiazem drip and bolus are being given and hopefully this will help with his blood pressure as well. No altered mental status. No focal motor deficits. He tells me he will be able to get to dialysis tomorrow. Consultation: I spoke with Dr. Stack who is on-call for the hospitalist service. He agrees to admission to cardiac stepdown unit. Consultation: I spoke with Dr. Mcdowell who is on-call for nephrology who will evaluate the patient. Assessment and plan: Medical noncompliance End-stage renal disease on dialysis Accelerated hypertension Dyspnea Hyperkalemia Chronic hypoxemic respiratory failure COPD with acute exacerbation ?Nephrology consultation. ?Insulin, D10 bolus and calcium gluconate. ?Diltiazem and diltiazem drip initiated ? Methylprednisolone, updrafts and doxycycline and Rocephin given. ?Currently he is stable on 6 L which is his home oxygen. -I discussed the patient with the hospitalist on-call who is admitting the patient. - Discussed findings and plan with patient. Answered any questions. - All laboratory values were reviewed and interpreted personally by myself, the ER physician - All imaging was reviewed and interpreted personally by myself, the ER physician. - Evaluation and treatment of this problem were appropriate in the emergency setting Lab Data 03/15/24 23:20 03/15/24 23:20 Labs/Radiology: Radiology Impressions Chest X-Ray 03/15/24 22:46 IMPRESSION: 1. Increased right basilar infiltrate versus atelectasis with small right effusion 2. Cardiomegaly. Laboratory Results WBC 8.46 10^3/uL (3.29-11.43) 03/15/24 23:20 RBC 3.45 10^6/uL (3.85-5.65) L 03/15/24 23:20 Hgb 10.30 g/dL (11.27-16.99) L 03/15/24 23:20 Hct 34.3 % (37-53) L 03/15/24 23:20 MCV 99.4 fl (82-101) 03/15/24 23:20 MCH 29.9 pg (27-33) 03/15/24 23:20 MCHC 30.0 g/dL (30-55) 03/15/24 23:20 RDW 15.6 % (12.1-15.1) H 03/15/24 23:20 Plt Count 284 10^3/cmm (157-399) 03/15/24 23:20 MPV 9.2 fL (7.4-10.4) 03/15/24 23:20 Neut % (Auto) 76.1 % 03/15/24 23:20 Lymph % (Auto) 9.8 % 03/15/24 23:20 Irion % (Auto) 10.9 % 03/15/24 23:20 Eos % (Auto) 2.1 % 03/15/24 23:20 Baso % (Auto) 0.9 % 03/15/24 23:20 Neut # (Auto) 6.43 10^3/uL (1.8-7.7) 03/15/24 23:20 Lymph # (Auto) 0.8 10^3/uL (0.8-4.8) 03/15/24 23:20 [place]ion # (Auto) 0.9 10^3/uL (0.2-0.9) 03/15/24 23:20 Eos # (Auto) 0.2 10^3/uL (0.0-0.8) 03/15/24 23:20 Baso # (Auto) 0.1 10^3/uL (0.0-0.1) 03/15/24 23:20 Nucleated RBC % (auto) 0 % 03/15/24 23:20 Nucleated RBCs # 0.0 /100WBC 03/15/24 23:20 Specimen Type Arterial 03/15/24 23:00 Sample Site Brachial, right 03/15/24 23:00 ABG pH 7.33 (7.35-7.45) L 03/15/24 23:00 ABG pCO2 34.2 mmHg (35-45) L 03/15/24 23:00 ABG pO2 80.9 mmHg (80.0-100.0) 03/15/24 23:00 ABG HCO3 17.9 mmol/L (22-26) L 03/15/24 23:00 ABG O2 Saturation 95.0 03/15/24 23:00 ABG Base Excess -7.2 mmol/L (-2.0-2.0) L 03/15/24 23:00 Shantanu Test N/a 03/15/24 23:00 A-a O2 Gradient 3.4 mmHg (5-10) L 03/15/24 23:00 Hematocrit 32.7 % (42-52) L 03/15/24 23:00 Hgb O2 Saturation 92.6 % (95-100) L 03/15/24 23:00 Carboxyhemoglobin 1.4 %THgb (0.4-20.1) 03/15/24 23:00 Methemoglobin 1.2 % (0.4-1.5) 03/15/24 23:00 Total Hemoglobin 10.7 g/dL (14-18) L 03/15/24 23:00 Sodium 135.0 mmol/L (131-143) 03/15/24 23:00 Potassium 6.7 mmol/L (3.5-5.0) H 03/15/24 23:00 Glucose 96.0 mg/dL (70-115) 03/15/24 23:00 Ionized Calcium 1.1 mmol/L (1.1-1.4) 03/15/24 23:00 O2 Delivery Device Nc 03/15/24 23:00 O2 Liters/Min 6.0 % 03/15/24 23:00 Restaurant Lead ID [email or web address] 03/15/24 23:00 Sodium 134 mmol/L (136-145) L 03/15/24 23:20 Potassium 7.0 mmol/L (3.5-5.1) H* 03/15/24 23:20 Chloride 94 mmol/L (98-107) L 03/15/24 23:20 Carbon Dioxide 18 mmol/L (22-29) L 03/15/24 23:20 Anion Gap 29.0 (5-19) H 03/15/24 23:20 BUN 108 mg/dL (6-20) H* D 03/15/24 23:20 Creatinine 11.7 mg/dL (0.7-1.2) H* 03/15/24 23:20 GFR Calculation 4.6 mL/min (90-130) L 03/15/24 23:20 Glucose 97 mg/dL (65-115) 03/15/24 23:20 Calculated Osmolality 312 mOsm/kg (285-295) H 03/15/24 23:20 Lactic Acid 1.0 mmol/L (0.5-2.2) 03/15/24 23:20 Calcium 9.0 mg/dL (8.5-10.5) 03/15/24 23:20 Total Bilirubin 0.4 mg/dL (0.15-1.2) 03/15/24 23:20 AST 13 U/L (0-40) 03/15/24 23:20 ALT 10 U/L (0-41) 03/15/24 23:20 Alkaline Phosphatase 159 U/L (40-130) H 03/15/24 23:20 Troponin T Baseline 116 ng/L (0-15) H* 03/15/24 23:20 C-Reactive Protein 46.6 mg/L (0.0-4.9) H 03/15/24 23:20 NT-Pro-B Natriuret Pep > 11102 pg/mL (0-125) H 03/15/24 23:20 Total Protein 7.1 g/dL (6.6-8.7) 03/15/24 23:20 Albumin 3.8 g/dL (3.5-5.2) 03/15/24 23:20 Globulin 3.3 g/dL (1.3-4.6) 03/15/24 23:20 Coronavirus (PCR) Negative (Negative) 03/16/24 00:29 Influenza A (PCR) Negative (Negative) 03/16/24 00:29 Influenza Type B (PCR) Negative (Negative) 03/16/24 00:29 RSV (PCR) Negative (Negative) 03/16/24 00:29 All radiology interpretation(s) finalized by discharge Discharge Plan Discharge Patient Disposition: Admitted As Inpatient Admit Provider: Nish Stack Clinical Impression: End stage renal disease on dialysis, Atrial fibrillation with rapid ventricular response, Accelerated hypertension, Medical non-compliance, Chronic hypoxemic respiratory failure, Fluid overload, Chronic anticoagulation Condition: Stable Coding Level of Care Code ED Rail Car Repairman for Shilpa Phillips
[2024-03-15 23:11] LABS: ABG PCO2 34.2 mmHg (35-45); ABG PH Result 7.33 (7.35-7.45); Alveolar-Arterial Oxygen Gradi 3.4 mmHg (5-10); Arterial Blood Gas Hematocrit 32.7 % (42-52); Base Excess ABG -7.2 mmol/L (-2.0-2.0); Blood Gas Sample Site Brachial, right; Blood Gas Sample Type Arterial; Carboxyhemoglobin 1.4 %THgb (0.4-20.1); HCO3 ABG 17.9 mmol/L (22-26); HGB O2 Sat 92.6 % (95-100); Ionized Calcium Level - ABG 1.1 mmol/L (1.1-1.4); Methemoglobin 1.2 % (0.4-1.5); Oxygen Device NC; PO2 ABG 80.9 mmHg (80.0-100.0); Potassium Level - ABG 6.7 mmol/L (3.5-5.0); Total Hemoglobin 10.7 g/dL (14-18)
[2024-03-15 23:40] LABS: Basophils # 0.1 10^3/uL (0.0-0.1); Basophils % 0.9 %; Eosinophils # 0.2 10^3/uL (0.0-0.8); Eosinophils % 2.1 %; Hematocrit 34.3 % (37-53); Lymphocytes # 0.8 10^3/uL (0.8-4.8); Lymphocytes % 9.8 %; Mean Corpuscular Hemoglobin 29.9 pg (27-33); Mean Corpuscular Volume 99.4 fl (82-101); Mean Platelet Volume 9.2 fL (7.4-10.4); Monocytes # 0.9 10^3/uL (0.2-0.9); Monocytes % 10.9 %; Neutrophils # 6.43 10^3/uL (1.8-7.7); Neutrophils % 76.1 %; Nucleated Red Blood Cells % 0 %; Platelet Count 284 10^3/cmm (157-399); Red Blood Count 3.45 10^6/uL (3.85-5.65); Red Cell Distribution Width 15.6 % (12.1-15.1); White Blood Count 8.46 10^3/uL (3.29-11.43)
[2024-03-15 23:56] VITALS: BP 197/128
[2024-03-16] VITALS (284 sets, daily range): BP systolic 105–213; BP diastolic 66–157; PULSE 53–143; RESP 9–38; TEMP 36.2–36.9; O2SAT 73–100; BMI 28.8
[2024-03-16 00:01] LABS: Alanine Aminotransferase 10 U/L (0-41); Albumin Level 3.8 g/dL (3.5-5.2); Alkaline Phosphatase 159 U/L (40-130); Aspartate Amino Transferase 13 U/L (0-40); C Reactive Protein 46.6 mg/L (0.0-4.9); Carbon Dioxide 18 mmol/L (22-29); Chloride 94 mmol/L (98-107); Creatinine Clr Calc Pharmacy 8.2656; Globulin 3.3 g/dL (1.3-4.6); Glomerular Filtration Rate 4.6 mL/min (90-130); Glucose 97 mg/dL (65-115); Osmolality Calculated 312 mOsm/kg (285-295); Sodium 134 mmol/L (136-145); Total Bilirubin 0.4 mg/dL (0.15-1.2); Total Protein 7.1 g/dL (6.6-8.7)
[2024-03-16 00:02] LABS: Blood Urea Nitrogen 108 mg/dL (6-20); Troponin(5th) Baseline 116 ng/L (0-15)
[2024-03-16] MEDS: albuterol 2.5 mg/3 mL Neb INHALATION (00:05)
[2024-03-16] MEDS: methylPREDNISolone sod succ 125 mg/2 mL INJ IVP (00:27)
[2024-03-16 00:31] LABS: NT Pro B Type Natriuretic Pept > 70000 pg/mL (0-125)
--- NOTE | 2024-03-16 00:46 | ECG_ITS ---
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 Measurements Intervals [place] Rate: 109 P: 0 TN: 0 QRS: -14 QRSD: 107 T: 85 QT: 331 QTc: 447 Interpretive Statements ATRIAL FIBRILLATION WITH RAPID VENTRICULAR RESPONSE LOW QRS VOLTAGE IN EXTREMITY LEADS [QRS DEFLECTION < 0.5 mV IN LIMB LEADS] ABNORMAL RHYTHM ECG Compared to ECG 01/26/2024 08:02:33 Low QRS voltage now present Aberrant conduction of supraventricular beat(s) no longer present Ventricular premature complex(es) no longer present Electronically Signed On 03-16-2024 21:43:22 FOAMITE MIXER by Sahnna Sosa M.D. [id number]
[2024-03-16 01:15] LABS: Covid PCR NEGATIVE (Negative); Influenza A NEGATIVE (Negative); Influenza B NEGATIVE (Negative); Respiratory Syncytial Virus Ce NEGATIVE (Negative)
--- NOTE | 2024-03-16 01:19 | P.CONIM_ITS ---
Providers/Reason For Consult 2 Consulting Physician/Specialty*: deep goodwin md/ telenephrology Reason for Consult*: esrd, hyperkalemia, htn Requesting Physician: DR Anderson Primary Care Provider: Ras Joy History of Present Illness History of Present Illness Leopoldo Schaefer is a 48 year old male History of atrial fibrillation, ESRD, heart failure. The patient presents after missing dialysis on Thursday, March 14, 2024 as he was feeling weak in his 4 drug to dialysis. The patient today had significant shortness of breath chest pressure and not feeling well came to the emergency room where he was found to have hypertension and A-fib with RVR. Renal was called as his potassium 7 he is volume overloaded and to help with dialysis. Review of Systems 2 Narrative: Weak, headache, shortness of breath, palpitations, chest pain, cough not feeling well minimal urine output no nausea or vomiting or diarrhea. No change in bowel movements. Rest review of systems within normal limits overall feels weak lethargic short of breath and palpitations Medications/Allergies Home Medications Medication Instructions Recorded Confirmed Last Taken Type vit B,C-folic ac 800 mcg-zinc 12.5 1 tab PO DAILY 06/09/19 01/17/24 1 Day Ago History mg-selen-D3 2,000 unit-vit E ~10/21/23 tablet ([facility]-D) Home oxygen #1 ea 08/07/20 01/17/24 Unknown Rx acetaminophen 500 mg tablet 1,000 mg PO Q4H PRN Pain 02/15/21 01/17/24 Unknown History diltiazem HCl 240 mg 240 mg PO QAM 10/14/21 01/17/24 10/21/23 History capsule,extended release 24 hr ondansetron 4 mg disintegrating 4 mg PO Q8H PRN nausea and 04/16/22 01/17/24 Unknown Rx tablet vomiting #30 tabs atorvastatin 40 mg tablet 40 mg PO BEDTIME #30 tabs 05/16/22 01/17/24 01/11/24 Rx 40 pantoprazole 40 mg tablet,delayed 40 mg PO BID #180 tabs 05/16/22 01/17/24 1 Day Ago Rx release ~10/21/23 citalopram 20 mg tablet 20 mg PO QAM #30 tabs 09/08/22 01/17/24 01/09/24 Rx 20 apixaban 5 mg tablet (Eliquis) 2.5 mg PO BID 09/14/23 01/17/24 01/10/24 History 2.5 furosemide 80 mg tablet 80 mg PO BID 09/14/23 01/17/24 1 Day Ago History ~10/20/23 hydralazine 25 mg tablet 75 mg (3 x 25 mg) PO TID #90 tabs 10/23/23 01/17/24 1 Day Ago Rx ~10/20/23 isosorbide mononitrate 120 mg 120 mg PO QAM PRN Sbp more than 10/23/23 01/17/24 1 Day Ago Rx tablet,extended release 24 hr 150 mmhg #30 tabs ~10/21/23 aspirin 81 mg capsule 81 mg PO DAILY 01/17/24 01/17/24 Unknown History carvedilol 6.25 mg tablet 6.25 mg PO BID 01/17/24 01/17/24 Unknown History cyanocobalamin (vitamin B-12) 1,000 mcg PO DAILY 01/17/24 01/17/24 Unknown History 1,000 mcg tablet doxycycline hyclate 100 mg 100 mg PO DAILY 01/17/24 01/17/24 Unknown History capsule,delayed release famotidine 40 mg tablet 40 mg PO BID 01/17/24 01/17/24 Unknown History hydralazine 100 mg tablet 100 mg PO TID 01/17/24 01/17/24 Unknown History ipratropium 18 mcg-albuterol 103 18 - 103 spray inhalation 01/17/24 01/17/24 Unknown History mcg/actuation aerosol inhaler DIRECTED levetiracetam 500 mg tablet 500 mg PO BID 01/17/24 01/17/24 Unknown History trazodone 150 mg tablet 150 mg PO BEDTIME 01/17/24 01/17/24 Unknown History clonidine HCl 0.1 mg tablet 0.1 mg PO Q6H PRN bp>200/110mmhg 01/18/24 Unknown Rx #20 tabs Allergies Allergy/AdvReac Type Severity Reaction Status Date / Time lisinopril Allergy swelling Verified 03/15/24 22:51 Penicillins Allergy ALGY-Hives Verified 03/15/24 22:51 tramadol Allergy ALGY-Hives Verified 03/15/24 22:51 PFSH Acute 2 PFSH: Medical History Uncontrolled hypertension Hypoglycemia Atrial fibrillation with RVR COPD exacerbation Pulmonary edema Non-compliance with renal dialysis End stage renal disease Anxiety and depression Pneumonia Obstructive sleep apnea Allergic dermatitis ESRD (end stage renal disease) Pleural effusion Dialysis patient Hypertensive emergency Atrial fibrillation/flutter Chest pain Elevated troponin Resistant hypertension Paroxysmal atrial fibrillation with RVR End stage chronic kidney disease Anemia Diastolic CHF Sebaceous cyst GERD (gastroesophageal reflux disease) Insomnia COPD (chronic obstructive pulmonary disease) Reports he is on 4 L of oxygen at home Hypoxia Anxiety and depression Lower respiratory tract infection Encounter to establish care Vitamin D deficiency Hypertension CRF (chronic renal failure) Surgical History S/P hemodialysis catheter insertion H/O hand surgery right hand with hardware H/O circumcision Presence of peritoneal dialysis catheter S/P dialysis catheter insertion (12/12/19) Removed on 04/04/2020 Family History Other Adopted Denies family history of Anesthesia complication Bleeding disorder Social History Smoking and tobacco/nicotine status: current every day tobacco/nicotine user (1ppd X26 years) cigarettes [ Other cigarette details: On and off quitting and restarting] Alcohol intake: never Substance/Drug Use: never Household members: significant other Marital status: Single Current occupational status: disabled Vitals/I&O/Wt Last Vital Signs Temp 99.2 F 03/15/24 22:43 Pulse 132 H 03/16/24 00:45 Resp 25 H 03/16/24 00:45 BP 191/132 03/16/24 00:45 Pulse Ox 98 03/16/24 00:30 O2 Del Method Nasal Cannula 03/16/24 00:05 O2 Flow Rate 6 03/16/24 00:05 Weight last 48 hrs Weight 83.915 kg Physical Exam 2 Narrative: In bed vital signs noted. Hypertensive, tachycardic irregular heartbeat. Using nasal cannula oxygen. HEENT normocephalic atraumatic. Neck is supple. Lungs have rhonchi. Heart irregularly irregular with systolic murmur positive tachycardia positive S1-S2. Abdomen is soft nontender nondistended positive bowel sounds. Extremities 1+ edema. Patient has a right IJ permacath for dialysis. Neuro awake alert oriented x 3. Data 03/15/24 23:20 03/15/24 23:20 Micro: Microbiology 03/15/24 23:25 Blood Culture - Preliminary Blood SPECIMEN COLLECTED 03/15/24 23:20 Blood Culture - Preliminary Blood SPECIMEN COLLECTED A&P Assessment and plan (1) End stage renal disease on dialysis: 48-year-old man history of heart failure preserved EF, A-fib, hypertension, ESRD on dialysis Thursday and Thursday. Patient has not had dialysis since Monday, March 11, 2024. Patient presents with hyperkalemia volume overload hypertension atrial fibrillation with RVR and not feeling well. 1. A-fib with RVR as per medicine and cardiology patient has been on diltiazem in the past. 2. ESRD volume overload hyperkalemia and hypertension we will do dialysis tonight for 3 hours on a 2K bath and attempt to remove 3 L. Will monitor the patient along with you. 3. Anemia hemoglobin appears appropriate. 4. Can check PTH. 5. TSH in the summer was normal. 6. May consider social work consult as patient lives 75 miles from his dialysis center as he no longer goes to the nearby for sending a center and goes [facility]. 1 may consider doing home hemodialysis or a closer center. The patient was seen and examined using audiovisual equipment with the aid of a nurse. The patient consented to hemodialysis and to telehealth. Thank you for this interesting consult we will follow along with you. Plan esrd, htn, hyperkalemia, emergency hd Consult Attestations 2 Medical Necessity Statement: emergency hd for hyperkalemia Time Spent in Patient Care: Greater than 35 minutes (>than 50% of time spent in counselling and/or direct pt care on unit) . Coding Level of Care Code Acute Code for Chg Fwd Diagnoses End stage renal disease on dialysis N18.6; Z99.2
[2024-03-16] MEDS: dextrose 10% 250 ML 1000 ML IV ×2 (01:30→03:20)
[2024-03-16] MEDS: insulin regular-human 100 units/1 mL 10 UNIT IVP (01:31)
[2024-03-16] MEDS: calcium gluconate 0.1 gm/mL 10% SDV 10mL 1 GM IVP (01:35)
[2024-03-16 01:49] LABS: Troponin 5 2HR Delta 3.6 ABS# (0-10)
[2024-03-16] MEDS: dilTIAZem 5 mg/mL SDV 5 mL 20 MG IVP (01:49)
[2024-03-16 01:55] LABS: Troponin 5 2HR 119.6 ng/L (0-15)
[2024-03-16] MEDS: cefTRIAXone 1,000 mg SDV 1000 MG IVP (01:59)
[2024-03-16 02:01] LABS: Estmated Average Glucose 88; Hemoglobin A1C 4.7 % (4.0-6.0)
[2024-03-16 02:09] LABS: Procalcitonin 1.53 ng/mL (0-0.5); Thyroid Stimulating Hormone 3.26 uIU/mL (0.27-4.20)
--- NOTE | 2024-03-16 02:12 | PM.HP ---
Providers/Chief Complaint Admitting Physician: Nish Stack MD Primary Care Provider: Ras Joy Chief Complaint: SOB History of Present Illness Leopoldo Schaefer is a 48 year old male with a past medical history of end-stage renal disease on dialysis, CHF, atrial fibrillation, history of hypertension, COPD, who presents to [facility] due to shortness of breath, missing dialysis on Thursday. Currently patient is alert oriented x 3, following all commands, currently on 6 L, blood pressure 177/123, heart rates in the low 100s, atrial fibrillation with rapid ventricular response, on a Cardizem drip. Patient tells me that he missed dialysis on Thursday, he has been short of breath, increasingly short of breath with exertion, no lower extremity edema, did report 1 episode of chest pain, he does report a productive cough, no fevers, no chills, Review of Systems Const: Denies: fever(s) or chills Card: Reports: chest pain Resp: Reports: dyspnea GI: Denies: abdominal pain : Denies: flank pain Medications/Allergies Home Medications Medication Instructions Recorded Confirmed Last Taken Type vit B,C-folic ac 800 mcg-zinc 12.5 1 tab PO DAILY 06/09/19 01/17/24 1 Day Ago History mg-selen-D3 2,000 unit-vit E ~10/21/23 tablet ([facility]-D) Home oxygen #1 ea 08/07/20 01/17/24 Unknown Rx acetaminophen 500 mg tablet 1,000 mg PO Q4H PRN Pain 02/15/21 01/17/24 Unknown History diltiazem HCl 240 mg 240 mg PO QAM 10/14/21 01/17/24 10/21/23 History capsule,extended release 24 hr ondansetron 4 mg disintegrating 4 mg PO Q8H PRN nausea and 04/16/22 01/17/24 Unknown Rx tablet vomiting #30 tabs atorvastatin 40 mg tablet 40 mg PO BEDTIME #30 tabs 05/16/22 01/17/24 01/11/24 Rx 40 pantoprazole 40 mg tablet,delayed 40 mg PO BID #180 tabs 05/16/22 01/17/24 1 Day Ago Rx release ~10/21/23 citalopram 20 mg tablet 20 mg PO QAM #30 tabs 09/08/22 01/17/24 01/09/24 Rx 20 apixaban 5 mg tablet (Eliquis) 2.5 mg PO BID 09/14/23 01/17/24 01/10/24 History 2.5 furosemide 80 mg tablet 80 mg PO BID 09/14/23 01/17/24 1 Day Ago History ~10/20/23 hydralazine 25 mg tablet 75 mg (3 x 25 mg) PO TID #90 tabs 10/23/23 01/17/24 1 Day Ago Rx ~10/20/23 isosorbide mononitrate 120 mg 120 mg PO QAM PRN Sbp more than 10/23/23 01/17/24 1 Day Ago Rx tablet,extended release 24 hr 150 mmhg #30 tabs ~10/21/23 aspirin 81 mg capsule 81 mg PO DAILY 01/17/24 01/17/24 Unknown History carvedilol 6.25 mg tablet 6.25 mg PO BID 01/17/24 01/17/24 Unknown History cyanocobalamin (vitamin B-12) 1,000 mcg PO DAILY 01/17/24 01/17/24 Unknown History 1,000 mcg tablet doxycycline hyclate 100 mg 100 mg PO DAILY 01/17/24 01/17/24 Unknown History capsule,delayed release famotidine 40 mg tablet 40 mg PO BID 01/17/24 01/17/24 Unknown History hydralazine 100 mg tablet 100 mg PO TID 01/17/24 01/17/24 Unknown History ipratropium 18 mcg-albuterol 103 18 - 103 spray inhalation 01/17/24 01/17/24 Unknown History mcg/actuation aerosol inhaler DIRECTED levetiracetam 500 mg tablet 500 mg PO BID 01/17/24 01/17/24 Unknown History trazodone 150 mg tablet 150 mg PO BEDTIME 01/17/24 01/17/24 Unknown History clonidine HCl 0.1 mg tablet 0.1 mg PO Q6H PRN bp>200/110mmhg 01/18/24 Unknown Rx #20 tabs Allergies Allergy/AdvReac Type Severity Reaction Status Date / Time lisinopril Allergy swelling Verified 03/15/24 22:51 Penicillins Allergy ALGY-Hives Verified 03/15/24 22:51 tramadol Allergy ALGY-Hives Verified 03/15/24 22:51 PFSH Acute PFSH: Medical History (Updated 03/16/24 @ 02:26 by Nish Stack MD) Pneumonia Atrial fibrillation with RVR End stage kidney disease Uncontrolled hypertension Hypoglycemia Atrial fibrillation with RVR COPD exacerbation Pulmonary edema Non-compliance with renal dialysis End stage renal disease Anxiety and depression Obstructive sleep apnea Allergic dermatitis ESRD (end stage renal disease) Pleural effusion Dialysis patient Hypertensive emergency Atrial fibrillation/flutter Chest pain Elevated troponin Resistant hypertension Paroxysmal atrial fibrillation with RVR End stage chronic kidney disease Anemia Diastolic CHF Sebaceous cyst GERD (gastroesophageal reflux disease) Insomnia COPD (chronic obstructive pulmonary disease) Reports he is on 4 L of oxygen at home Hypoxia Anxiety and depression Lower respiratory tract infection Encounter to establish care Vitamin D deficiency Hypertension CRF (chronic renal failure) Surgical History S/P hemodialysis catheter insertion H/O hand surgery right hand with hardware H/O circumcision Presence of peritoneal dialysis catheter S/P dialysis catheter insertion (12/12/19) Removed on 04/04/2020 Family History Other Adopted Denies family history of Anesthesia complication Bleeding disorder Social History Smoking and tobacco/nicotine status: current every day tobacco/nicotine user (1ppd X26 years) cigarettes [ Other cigarette details: On and off quitting and restarting] Alcohol intake: never Substance/Drug Use: never Household members: significant other Marital status: Single Current occupational status: disabled Vitals/I&O/Wt Last Vital Signs Temp 99.2 F 03/15/24 22:43 Pulse 118 H 03/16/24 02:00 Resp 31 H 03/16/24 02:00 BP 168/134 03/16/24 01:45 Pulse Ox 95 03/16/24 02:00 O2 Del Method Nasal Cannula 03/16/24 00:05 O2 Flow Rate 6 03/16/24 00:05 03/15/24 03/15/24 03/16/24 14:59 22:59 06:59 Intake Total 250 / 250 Balance 250 / 250 Weight last 48 hrs Weight 83.915 kg Physical Exam Const: COMMON NORMALS: no acute distress and patient oriented x3 HENMT: COMMON NORMALS: normocephalic HEAD & SCALP: normocephalic Eye: COMMON NORMALS: Equal, round and reactive pupils present Neck/C-Spine: COMMON NORMALS: no JVD Resp: COMMON NORMALS: normal respiratory effort, No retractions, No use of accessory muscles and clear to auscultation bilaterally AUSCULTATION: clear to auscultation bilaterally Cardio: COMMON NORMALS: regular rate, regular rhythm, S1 normal heart sound present and S2 normal heart sound present RATE: regular rate RHYTHM: regular rhythm HEART SOUNDS: S1 normal heart sound present and S2 normal heart sound present GI: COMMON NORMALS: Normal to inspection, nondistended, normoactive bowel sounds present, Soft to palpation and non-tender Extremity: COMMON NORMALS: no calf tenderness and no pedal edema Neuro: COMMON NORMALS: patient oriented x3, CN's II-XII intact bilaterally and moves all extremities Psych: COMMON NORMALS: mental status grossly normal Data 03/15/24 23:20 03/15/24 23:20 Micro: Microbiology 03/15/24 23:25 Blood Culture - Preliminary Blood SPECIMEN COLLECTED 03/15/24 23:20 Blood Culture - Preliminary Blood SPECIMEN COLLECTED A&P Assessment and plan (1) Accelerated hypertension: (2) Atrial fibrillation with rapid ventricular response: (3) Acute hypoxic respiratory failure: (4) Systolic CHF, acute: (5) Pneumonia: (6) Hyperkalemia: (7) Non-ST elevation VA (NSTEMI): Plan Acute hypoxic respiratory failure ? Secondary to systolic and diastolic CHF exacerbation, fluid overload, missed dialysis ? Findings concerning for pneumonia, right basilar infiltrate, elevated Pro-Shay, CRP, productive cough -COPD exacerbation ? Plan ? Nephrology consulted for dialysis ? Continue Rocephin ? Continue Zithromycin ? Continue prednisone -DuoNeb, budesonide ? Sputum culture, blood cultures ? CODE STATUS, patient is DNR/DNI, confirmed with him multiple times ? Eliquis for DVT prophylaxis Atrial fibrillation with rapid ventricular response -Continue Cardizem drip Hypertensive urgency ? Continue Cardizem drip exodus continue home p.o. blood pressure medications Chest pain, with NSTEMI # Complaints of chest discomfort ? Serial EKGs, serial troponins, telemetry monitoring # History of cath in 2020, RCA showed 20% stenosis # Continue Eliquis, aspirin, statin, beta-elsy Hyperkalemia # Has received insulin, D50, calcium gluconate # Will receive dialysis # Recheck BMP this morning End-stage renal disease, missed dialysis, nephrology consulted for dialysis Attestations Medical Necessity Statement*: Patient requires hospitalization, inpatient, greater than 2 midnights, for acute hypoxic respiratory failure secondary to pneumonia, CHF, missed dialysis, hyperkalemia, NSTEMI Diagnoses Accelerated hypertension I10 Atrial fibrillation with rapid ventricular response I48.91 Acute hypoxic respiratory failure J96.01 Systolic CHF, acute I50.21 Pneumonia J18.9 Hyperkalemia E87.5 Non-ST elevation VA (NSTEMI) I21.4
[2024-03-16 02:20] LABS: C Reactive Protein 48.2 mg/L (0.0-4.9)
[2024-03-16] MEDS: dilTIAZem 100 MG in sodium chloride 0.9% (add-van) 100 ML IV (03:10)
[2024-03-16] MEDS: AZITHROMYCIN ADD-Vantage 500 MG in 0.9% NaCl ADD-Vantage 250 ML 250 MG IV (03:45)
[2024-03-16] MEDS: heparin, porcine 1,000 unit/mL INJ 10 mL 1000 UNIT IV (03:47)
[2024-03-16 03:49] LABS: Glucose Point of Care 49 mg/dL (70-110)
[2024-03-16 03:49] LABS: Glucose Point of Care 142 mg/dL (70-110)
--- NOTE | 2024-03-16 03:56 | PC.NURSE ---
Pt arrived from ED at 0234, upon arrival was pleasant, talkative, verbalized no complaints. Shortly thereafter pt stated he felt hot , color was pale, skin clammy and diaphoretic, and had decreased LOC. Blood sugar checked and was 48, 250 ml bolus of D10 administered, rechecked and blood sugar increased to 142. Contacted Dr. Stack and made aware, no new orders.
[2024-03-16 04:04] LABS: Glucose Point of Care 129 mg/dL (70-110)
--- NOTE | 2024-03-16 04:05 | ECG_ITS ---
[facility] Date: 2024-03[facility]16 Pat Name: Leopoldo Schaefer Department: Room: ICU07 Gender: Male Pantomimist: : 1975 Requested By: Cecy Stevens Order Number: [id number] Vaughn MD: Shanna Sosa M.D. Measurements Intervals [place] Rate: 110 P: 0 WV: 0 QRS: -9 QRSD: 105 T: 85 QT: 345 QTc: 467 Interpretive Statements ATRIAL FIBRILLATION WITH RAPID VENTRICULAR RESPONSE LOW QRS VOLTAGE IN EXTREMITY LEADS [QRS DEFLECTION < 0.5 mV IN LIMB LEADS] MINIMAL ST DEPRESSION [0.025+ mV ST DEPRESSION] ABNORMAL RHYTHM ECG Compared to ECG 03/15/2024 22:47:28 ST (T wave) deviation now present Electronically Signed On 03-16-2024 21:43:25 [employer] OFFICER by Shanna Sosa M.D. [email or web address]
--- NOTE | 2024-03-16 04:12 | PC.HD ---
During HD catheter dressing change, a solitary, very soiled Band-Aid was noted to be covering catheter insertion site. Every hospitalization, patient receives education regarding importance of using a clean dressing which completely covers the insertion site for infection prevention; however, patient refuses to comply, although he expresses understanding. No s/s of infection noted. Area cleansed thoroughly with Chloraprep, triple antibiotic ointment applied, and site covered with a Covaderm dressing.
[2024-03-16] MEDS: doxycycline 100 MG in sodium chloride 0.9% (plus) 100 ML IV ×2 (04:45)
[2024-03-16 05:29] LABS: Basophils % 0.4 %; Eosinophils % 0.2 %; Hematocrit 33.6 % (37-53); Lymphocytes # 0.2 10^3/uL (0.8-4.8); Lymphocytes % 2.1 %; Mean Corpuscular Hemoglobin 29.8 pg (27-33); Mean Corpuscular Volume 96.3 fl (82-101); Mean Platelet Volume 9.5 fL (7.4-10.4); Monocytes # 0.1 10^3/uL (0.2-0.9); Monocytes % 1.5 %; Neutrophils # 9.03 10^3/uL (1.8-7.7); Neutrophils % 95.4 %; Nucleated Red Blood Cells % 0 %; Platelet Count 275 10^3/cmm (157-399); Red Blood Count 3.49 10^6/uL (3.85-5.65); Red Cell Distribution Width 15.5 % (12.1-15.1); White Blood Count 9.47 10^3/uL (3.29-11.43)
[2024-03-16 05:54] LABS: Calcium 9.4 mg/dL (8.5-10.5)
[2024-03-16 06:00] LABS: Alanine Aminotransferase 10 U/L (0-41); Albumin Level 3.7 g/dL (3.5-5.2); Alkaline Phosphatase 163 U/L (40-130); Anion Gap 25.3 (5-19); Aspartate Amino Transferase 12 U/L (0-40); Blood Urea Nitrogen 77 mg/dL (6-20); Calcium 9.2 mg/dL (8.5-10.5); Carbon Dioxide 19 mmol/L (22-29); Chloride 95 mmol/L (98-107); Creatinine Clr Calc Pharmacy 11.0165; Globulin 4.1 g/dL (1.3-4.6); Glomerular Filtration Rate 6.2 mL/min (90-130); Glucose 107 mg/dL (65-115); Osmolality Calculated 301 mOsm/kg (285-295); Phosphorus 5.3 mg/dL (2.5-4.5); Potassium 5.3 mmol/L (3.5-5.1); Sodium 134 mmol/L (136-145); Total Bilirubin 0.3 mg/dL (0.15-1.2); Total Protein 7.8 g/dL (6.6-8.7); Uric Acid 6.2 mg/dL (3.4-7.0)
[2024-03-16 06:02] LABS: Hepatitis B Surface AB < 3.5 (11.5-1000); Hepatitis B Surface Antigen Non-Reactive (Nonreactive); Hepatitis C Virus Antibody Non-Reactive (Nonreactive)
[2024-03-16 06:03] LABS: Lactic Sepsis W/Reflex 1.1 mmol/L (0.5-2.2)
[2024-03-16 06:15] LABS: Troponin 5 6HR 107.3 ng/L (0-15); Troponin 5 6HR Delta -8.7 ng/L (0-12)
[2024-03-16 06:29] LABS: Iron 30 ug/dL (59-158); Percent Saturation 13.2 % (20-50); Total Iron Binding Capacity 227 mcg/dl; Unsaturated Iron Binding 197 ug/dL (112-347)
[2024-03-16] MEDS: pantoprazole 40 mg SDV IVP (06:30)
[2024-03-16 06:41] LABS: Ferritin 1575 ng/mL (30-400)
[2024-03-16 06:45] LABS: 25 Hydroxy Vitamin D 21 ng/mL (30-100)
[2024-03-16] MEDS: carvedilol 6.25 mg Tablet PO ×2 (08:33→17:43)
[2024-03-16] MEDS: pantoprazole DR 40 mg Tablet PO ×2 (08:33→17:43)
[2024-03-16] MEDS: b-complex-vitamin c Tablet 1 EACH PO (08:33)
[2024-03-16] MEDS: FUROsemide 40 mg Tablet 80 MG PO (08:33)
[2024-03-16] MEDS: aspirin 81 mg EC Tablet PO (08:33)
[2024-03-16] MEDS: cyanocobalamin 1,000 mcg Tablet 1000 MCG PO (08:33)
[2024-03-16] MEDS: levETIRAcetam 500 mg Tablet PO ×2 (08:33→17:43)
[2024-03-16] MEDS: hyDRALAzine 25 mg Tablet 75 MG PO (08:33)
[2024-03-16] MEDS: FUROsemide 10 mg/mL SDV 10mL 100 MG IVP (08:34)
[2024-03-16] MEDS: citalopram 20 mg Tablet PO (08:34)
[2024-03-16] MEDS: apixaban 5 mg Tablet 2.5 MG PO (08:34)
[2024-03-16] MEDS: ipratropium-albuterol 3 mL Neb INHALATION ×3 (08:45→19:58)
[2024-03-16] MEDS: budesonide 0.5 mg/2 mL Neb INHALATION ×2 (08:45→19:58)
--- NOTE | 2024-03-16 09:47 | CTR_ITS ---
PROCEDURE INFORMATION: Exam: CTA Chest With Contrast Exam date and time: 03/16/2024 10:52 AM Age: 48 years old Clinical indication: Shortness of breath; Additional info: SOB TECHNIQUE: Imaging protocol: Computed tomographic angiography of the chest with contrast. Exam focused on the arteries. 3D rendering (Not supervised by radiologist): MIP and/or 3D reconstructed images were created by the technologist. Radiation optimization: All CT scans at this facility use at least one of these dose optimization techniques: automated exposure control; mA and/or kV adjustment per patient size (includes targeted exams where dose is matched to clinical indication); or iterative reconstruction. Contrast material: OMNI 350; Contrast volume: 100 ml; Contrast route: INTRAVENOUS (IV); COMPARISON: CT angio chest PE protcl [id number] 12/30/2020 11:20 AM RADIATION DOSE METRICS: Total DLP (mGy-cm): 524.34 FINDINGS: Tubes, catheters and devices: A right-sided tunneled central venous dialysis catheter is in good position. Pulmonary arteries: Normal. No pulmonary emboli. Aorta: Unremarkable. No aortic aneurysm. No aortic dissection. Lungs: Both lungs demonstrate diffuse patchy ground-glass density. No dense consolidation or mass noted. Mild atelectasis also involves both lung bases. Pleural spaces: Small bilateral pleural effusions are noted. Heart: Moderate cardiomegaly is noted. Lymph nodes: Mildly prominent lymph nodes are noted throughout the mediastinum. The largest node measures 2.5 cm in diameter within the right paratracheal space. Bones/joints: Unremarkable. No acute fracture. Soft tissues: Unremarkable. CT/CT angio chest PE protcl [id number] IMPRESSION: 1. Cardiomegaly with ground-glass density involving both lungs. Most likely represents some degree of congestive heart failure 2. Small bilateral pleural effusions with mild bibasilar atelectasis 3. Stable mediastinal adenopathy
--- NOTE | 2024-03-16 09:59 | PC.PHAR ---
Addendum entered by Yulisa Appiah 03/16/24 11:40: Phoned [facility] twice and have yet to get pt medication list. Will follow up as soon as I get a good list. Entered last fill dates on the medications we have. Original Note: Pt unresponsive to us when in room. Mariana Montoya is faxing current med list.
[2024-03-16] MEDS: dilTIAZem 60 mg Tablet PO ×2 (10:39→15:48)
[2024-03-16] MEDS: iohexol 350 mg/mL 500 mL Btl (per mL) IV (10:58)
[2024-03-16 12:58] LABS: Glucose Point of Care 175 mg/dL (70-110)
[2024-03-16 12:58] LABS: Glucose Point of Care 102 mg/dL (70-110)
[2024-03-16 12:58] LABS: Glucose Point of Care 91 mg/dL (70-110)
--- NOTE | 2024-03-16 15:29 | P.PN_ITS ---
Subjective 2 Subjective: Admitted last night. H&P labs appreciated. Today morning patient laying comfortably in bed. Down to baseline 5 to 6 L of oxygen supplementation. Saturating well over 90%. Continues to remain on Cardizem drip of 10 with heart rate running in low 100s. States his breathing is better. Vitals/I&O/Wt Last Vital Signs Temp 97.7 F 03/16/24 08:59 Pulse 97 03/16/24 13:15 Resp 16 03/16/24 13:15 BP 165/113 03/16/24 13:00 Pulse Ox 95 03/16/24 13:15 O2 Del Method Nasal Cannula 03/16/24 13:15 O2 Flow Rate 3 03/16/24 13:15 03/16/24 03/16/24 03/16/24 06:59 14:59 22:59 Intake Total 750 / 750 1074.5 / 1074.5 Output Total 3500 / 3500 Balance 750 / 750 -2425.5 / -2425.5 Weight last 48 hrs Weight 88.5 kg Weight 90.718 kg Weight 91 kg Weight 83.915 kg Physical Exam 2 Const: COMMON NORMALS: no acute distress and patient oriented x3 HENMT: COMMON NORMALS: normocephalic HEAD & SCALP: normocephalic Eye: COMMON NORMALS: Equal, round and reactive pupils present PUPIL: Yes Equal, round and reactive pupils present Neck/C-Spine: COMMON NORMALS: no JVD Resp: COMMON NORMALS: normal respiratory effort, No retractions, No use of accessory muscles and clear to auscultation bilaterally AUSCULTATION: clear to auscultation bilaterally Cardio: COMMON NORMALS: no JVD, regular rhythm, S1 normal heart sound present and S2 normal heart sound present RATE: Other RHYTHM: regular rhythm H EART SOUNDS: S1 normal heart sound present and S2 normal heart sound present GI: COMMON NORMALS: Normal to inspection, nondistended, normoactive bowel sounds present, Soft to palpation and non-tender PALPATION: Yes Soft to palpation Extremity: COMMON NORMALS: no calf tenderness and no pedal edema Neuro: COMMON NORMALS: patient oriented x3, CN's II-XII intact bilaterally and moves all extremities Psych: COMMON NORMALS: mental status grossly normal Data 03/16/24 04:57 03/16/24 04:57 Micro: Microbiology 03/15/24 23:25 Blood Culture - Preliminary Blood SPECIMEN COLLECTED 03/15/24 23:20 Blood Culture - Preliminary Blood SPECIMEN COLLECTED A&P Assessment and plan (1) Acute hypoxic respiratory failure: (2) Accelerated hypertension: (3) Atrial fibrillation with rapid ventricular response: (4) Systolic CHF, acute: (5) Pneumonia: (6) Hyperkalemia: (7) Non-ST elevation MA (NSTEMI): Plan Acute hypoxic respiratory failure: Most likely in setting of congestive heart failure in setting of hypertensive urgency and missed dialysis session. Oxygen supplementation keeping saturation over 90%. Mild concerns for pneumonia overnight. Check respiratory viral panel. Trend procalcitonin Check sputum culture. For now continue with treatment for pulmonary acquired pneumonia with IV Rocephin and azithromycin. Started on prednisone 40 mg daily overnight. For now we will continue to finish a 5-day course. Check CTA to rule out consolidation versus PE. Patient received emergent dialysis overnight for respiratory failure and hyperkalemia. Resolving today. A-fib with RVR: Currently on Cardizem drip. Start on oral Cardizem 60 mg every 6 hourly. Continue with home dose of Eliquis. Last echocardiogram from August 2023 showed an EF of 60%, moderate LVH, no regional wall motion anticoagulated with diastolic dysfunction, thickened mitral valve. Hypertensive urgency: Goal blood pressure less than 140/90 mmHg. Continue with home dose of Coreg 6.25 mg twice daily, Cardizem as above, increase hydralazine to 100 mg 3 times daily. Will plan to start on Imdur 60 mg oral daily as needed for systolic blood pressure of more than 160 mmHg. Elevated troponin: Chest pain on admission. Resolved now. Could be in setting of hypertensive urgency. Troponins trending down. For now hold off on heparin drip given low concerns for ACS. End-stage renal disease on hemodialysis: Appreciate nephrology recommendations. Continue with home schedule of dialysis. Plan for repeat dialysis in a.m. DNR/DNI Renal cardiac diet Protonix OPD prophylaxis Eliquis to be sufficient for DVT prophylaxis Transfer to [facility]. Attestations 2 Medical Necessity Statement*: Requires further hospitalization for management of acute hypoxic respiratory failure in setting of congestive heart failure, hypertensive urgency in a patient with end-stage renal disease on hemodialysis with concerns for left dialysis, A-fib with RVR Diagnoses Acute hypoxic respiratory failure J96.01 Accelerated hypertension I10 Atrial fibrillation with rapid ventricular response I48.91 Systolic CHF, acute I50.21 Pneumonia J18.9 Hyperkalemia E87.5 Non-ST elevation MA (NSTEMI) I21.4
[2024-03-16] MEDS: hyDRALAzine 25 mg Tablet 100 MG PO ×2 (15:48→22:14)
[2024-03-16] MEDS: apixaban 5 mg Tablet PO (17:43)
[2024-03-16 18:16] LABS: Adenovirus Not Detected (NOT DETECT); Chlamydia Pneumoniae Not Detected (NOT DETECT); Coronavirus 229E,HKU1,NL63,OC4 Not Detected (NOT DETECT); Human Metapneumovirus Not Detected (NOT DETECT); Human Rhinovirus/Enterovirus Not Detected (NOT DETECT); Influenza A Not Detected (NOT DETECT); Influenza A H1 Not Detected (NOT DETECT); Influenza A H1-2009 Not Detected (NOT DETECT); Influenza A H3 Not Detected (NOT DETECT); Influenza B Not Detected (NOT DETECT); Mycoplasma Pneumoniae Not Detected (NOT DETECT); Parainfluenza Virus Type 1 Not Detected (NOT DETECT); Parainfluenza Virus Type 2 Not Detected (NOT DETECT); Parainfluenza Virus Type 3 Not Detected (NOT DETECT); Parainfluenza Virus Type 4 Not Detected (NOT DETECT); Respiratory Syncytial Virus A Not Detected (NOT DETECT); Respiratory Syncytial Virus B Not Detected (NOT DETECT); SARS-COV-2 Not Detected (NOT DETECT)
[2024-03-16] MEDS: atorvastatin 40 mg Tablet PO (22:15)
[2024-03-16] MEDS: trazodone 150 mg Tablet PO (22:15)
--- NOTE | 2024-03-16 23:03 | PC.NURSE ---
Pt remains in a fib, rate variable but maintains mostly in lower 60's, as low as 54. Spoke with Dr. Stack before administering Cardizem. Ordered to hold 2200 dose and give next dose.
[2024-03-17] VITALS (103 sets, daily range): BP systolic 103–147; BP diastolic 66–102; PULSE 67–105; RESP 5–33; TEMP 34.6–36.8; O2SAT 86–99; BMI 28.4
[2024-03-17] MEDS: cefTRIAXone 1,000 mg SDV 1000 MG IVP (01:40)
[2024-03-17] MEDS: ipratropium-albuterol 3 mL Neb INHALATION ×2 (02:12→08:53)
[2024-03-17] MEDS: dilTIAZem 60 mg Tablet PO ×3 (04:29→15:56)
[2024-03-17 04:31] LABS: Hematocrit 32.3 % (37-53); Lymphocytes # 0.4 10^3/uL (0.8-4.8); Lymphocytes % 3.3 %; Mean Corpuscular HGB Conc 30.3 g/dL (30-55); Mean Corpuscular Hemoglobin 29.3 pg (27-33); Mean Corpuscular Volume 96.7 fl (82-101); Mean Platelet Volume 9.5 fL (7.4-10.4); Monocytes # 0.6 10^3/uL (0.2-0.9); Monocytes % 5.9 %; Neutrophils # 9.76 10^3/uL (1.8-7.7); Neutrophils % 90.3 %; Nucleated Red Blood Cells % 0 %; Platelet Count 244 10^3/cmm (157-399); Red Blood Count 3.34 10^6/uL (3.85-5.65); Red Cell Distribution Width 15.4 % (12.1-15.1); White Blood Count 10.81 10^3/uL (3.29-11.43)
[2024-03-17 04:57] LABS: Alanine Aminotransferase 7 U/L (0-41); Albumin Level 3.4 g/dL (3.5-5.2); Alkaline Phosphatase 131 U/L (40-130); Anion Gap 19.5 (5-19); Aspartate Amino Transferase 10 U/L (0-40); Blood Urea Nitrogen 70 mg/dL (6-20); Calcium 8.8 mg/dL (8.5-10.5); Carbon Dioxide 24 mmol/L (22-29); Chloride 95 mmol/L (98-107); Creatinine Clr Calc Pharmacy 10.7609; Globulin 3.9 g/dL (1.3-4.6); Glomerular Filtration Rate 6.1 mL/min (90-130); Glucose 130 mg/dL (65-115); Magnesium 2.1 mg/dL (1.7-2.3); Osmolality Calculated 296 mOsm/kg (285-295); Sodium 132 mmol/L (136-145); Total Bilirubin 0.3 mg/dL (0.15-1.2); Total Protein 7.3 g/dL (6.6-8.7)
[2024-03-17 05:40] LABS: Potassium 6.5 mmol/L (3.5-5.1)
[2024-03-17] MEDS: citalopram 20 mg Tablet PO (06:31)
[2024-03-17] MEDS: calcium gluconate 0.1 gm/mL 10% SDV 10mL 1 GM IVP (06:32)
[2024-03-17] MEDS: insulin regular-human 100 units/1 mL 10 UNIT IVP (07:37)
[2024-03-17] MEDS: heparin, porcine 1,000 unit/mL INJ 10 mL 1000 UNIT IV (07:39)
[2024-03-17] MEDS: dextrose 10% 250 ML 1000 ML IV (07:42)
[2024-03-17 08:27] LABS: Glucose Point of Care 162 mg/dL (70-110)
[2024-03-17] MEDS: budesonide 0.5 mg/2 mL Neb INHALATION (08:52)
[2024-03-17] MEDS: apixaban 5 mg Tablet PO (09:22)
[2024-03-17] MEDS: cyanocobalamin 1,000 mcg Tablet 1000 MCG PO (09:22)
[2024-03-17] MEDS: aspirin 81 mg EC Tablet PO (09:22)
[2024-03-17] MEDS: predniSONE 20 mg Tablet 40 MG PO (09:22)
[2024-03-17] MEDS: b-complex-vitamin c Tablet 1 EACH PO (09:22)
[2024-03-17] MEDS: pantoprazole DR 40 mg Tablet PO (09:22)
[2024-03-17] MEDS: carvedilol 6.25 mg Tablet PO (09:22)
[2024-03-17] MEDS: azithromycin 250 mg Tablet 500 MG PO (09:22)
[2024-03-17] MEDS: levETIRAcetam 500 mg Tablet PO (09:22)
--- NOTE | 2024-03-17 10:21 | PM.PN ---
Subjective Subjective: seen and examined on dialysis. feels better. no n/v/f/c/snyder/d/sob. Medications: Reviewed: Yes Medication Review Details: Current Medications Acetaminophen (Acetaminophen 325 Mg Tablet) 650 mg PO Q6H PRN PRN Reason: Mild/Mod Pain Or Temp >/= 101 Albuterol/Ipratropium (Ipratropium-Albuterol 3 Ml Neb) 3 ml INHALATION Q6H.RESP [facility] Last Admin: 03/17/24 08:53 Dose: 3 ml Albuterol/Ipratropium (Ipratropium-Albuterol 3 Ml Neb) 3 ml INHALATION Q4H.RESPIRATORY PRN PRN Reason: SHORTNESS OF BREATH Apixaban (Apixaban 5 Mg Tablet) 5 mg PO BID [facility] Last Admin: 03/17/24 09:22 Dose: 5 mg Aspirin (Aspirin 81 Mg Ec Tablet) 81 mg PO DAILY [facility] Last Admin: 03/17/24 09:22 Dose: 81 mg Atorvastatin Calcium (Atorvastatin 40 Mg Tablet) 40 mg PO BEDTIME [facility] Last Admin: 03/16/24 22:15 Dose: 40 mg Azithromycin (Azithromycin 250 Mg Tablet) 500 mg PO DAILY [facility]; Protocol Stop: 03/19/24 08:59 Last Admin: 03/17/24 09:22 Dose: 500 mg Budesonide (Budesonide 0.5 Mg/2 Ml Neb) 0.5 mg INHALATION BID.RESPIRATORY [facility] Last Admin: 03/17/24 08:52 Dose: 0.5 mg Carvedilol (Carvedilol 6.25 Mg Tablet) 6.25 mg PO BID [facility] Last Admin: 03/17/24 09:22 Dose: 6.25 mg Ceftriaxone Sodium (Ceftriaxone 1,000 Mg Sdv) 1,000 mg IVP Q24H [facility]; Protocol Stop: 03/22/24 01:59 Last Admin: 03/17/24 01:40 Dose: 1,000 mg Citalopram Hydrobromide (Citalopram 20 Mg Tablet) 20 mg PO QAM [facility] Last Admin: 03/17/24 06:31 Dose: 20 mg Cyanocobalamin (Cyanocobalamin 1,000 Mcg Tablet) 1,000 mcg PO DAILY [facility] Last Admin: 03/17/24 09:22 Dose: 1,000 mcg Diltiazem HCl (Diltiazem 60 Mg Tablet) 60 mg PO Q6H [facility] Last Admin: 03/17/24 09:22 Dose: 60 mg Hydralazine HCl (Hydralazine 20 Mg/Ml Inj 1 Ml) 10 mg IVP Q4H PRN PRN Reason: SBP More than 160 mmhg Diltiazem HCl 100 mg/ Sodium (Chloride) 100 mls @ 0 mls/hr IV .Q0M [facility]; Protocol Last Titration: 03/16/24 16:00 Dose: 0 mg/hr, 0 mls/hr Dextrose (D10w) 250 mls @ 1,000 mls/hr IV PRN PRN PRN Reason: HYPOGLYCEMIA Last Admin: 03/17/24 07:42 Dose: 1,000 mls/hr Levetiracetam (Levetiracetam 500 Mg Tablet) 500 mg PO BID [facility] Last Admin: 03/17/24 09:22 Dose: 500 mg Multivitamins (L-Vxdmvcj-Dlapble C Tablet) 1 each PO DAILY [facility] Last Admin: 03/17/24 09:22 Dose: 1 each Ondansetron HCl (Ondansetron 2 Mg/Ml Sdv 2 Ml) 4 mg IVP Q8H PRN PRN Reason: vomiting, or N/V if npo Pantoprazole Sodium (Pantoprazole Dr 40 Mg Tablet) 40 mg PO BID [facility] Last Admin: 03/17/24 09:22 Dose: 40 mg Prednisone (Prednisone 20 Mg Tablet) 40 mg PO DAILY [facility] Last Admin: 03/17/24 09:22 Dose: 40 mg Trazodone HCl (Trazodone 150 Mg Tablet) 150 mg PO BEDTIME [facility] Last Admin: 03/16/24 22:15 Dose: 150 mg Vitals/I&O/Wt Last Vital Signs Temp 98.3 F 03/17/24 08:45 Pulse 90 03/17/24 08:45 Resp 21 H 03/17/24 08:45 BP 103/76 03/17/24 08:45 Pulse Ox 98 03/17/24 08:45 O2 Del Method Nasal Cannula 03/17/24 08:45 O2 Flow Rate 4 03/17/24 08:45 03/16/24 03/17/24 03/17/24 22:59 06:59 14:59 Intake Total 12.333 / 1086.833 Balance 12.333 / -2413.167 Weight last 48 hrs Weight 90 kg Weight 88.5 kg Weight 90.718 kg Weight 91 kg Weight 83.915 kg Physical Exam Narrative: In bed vital signs noted. BP low, irregular heartbeat. HEENT normocephalic atraumatic. Neck is supple. Lungs -decreased b/l rhonchi. Heart irregularly irregular with systolic murmur positive tachycardia positive S1-S2. Abdomen is soft nontender nondistended positive bowel sounds. Extremities 1+ edema. Patient has a right IJ permacath for dialysis. Neuro awake alert oriented x 3. Data 03/17/24 03:50 03/17/24 03:50 Micro: Microbiology 03/15/24 23:25 Blood Culture - Preliminary Blood NEGATIVE TO DATE 03/15/24 23:20 Blood Culture - Preliminary Blood NEGATIVE TO DATE A&P Assessment and plan (1) End stage renal disease on dialysis: 48-year-old man history of heart failure preserved EF, A-fib, hypertension, ESRD on dialysis Thursday and Thursday. Patient has not had dialysis since Monday, March 11, 2024. Patient presents with hyperkalemia volume overload hypertension atrial fibrillation with RVR and not feeling well. 1. A-fib with RVR as per medicine and cardiology patient has been on diltiazem in the past. 2. ESRD -repeat HD now. assess again for dialysis tomorrow. he is usually a MWF HD pt. 3. BP much improved- lower meds. i wonder if he takes all of his meds at home 4. Anemia hemoglobin under 10, tsat 13%, ferritin 1575- weekly epo 5. phos binders - PTH 1911- start sensipar, if possible maybe zemplar when phos improves. replace vit d 5. TSH in the summer was normal. 6. May consider social work consult as patient lives 75 miles from his dialysis center as he no longer goes to the nearby for sending a center and goes to [facility]. 1 may consider doing home hemodialysis or a closer center. The patient was seen and examined using audiovisual equipment with the aid of a nurse. The patient consented to hemodialysis and to telehealth. Thank you for this interesting consult we will follow along with you. Plan esrd, htn, hyperkalemia, hd Attestations Medical Necessity Statement*: hyperkalemia, esrd, Time Spent in Patient Care: 16 - 35 minutes (>than 50% of time spent in counselling and/or direct pt care on unit). Coding Level of Care Code Acute Code for Chg Fwd Diagnoses End stage renal disease on dialysis N18.6; Z99.2
[2024-03-17] MEDS: epoetin alfa 20,000 unit/mL MDV (ESRD) 10000 UNIT SUBCUT (11:01)
--- NOTE | 2024-03-17 12:38 | PM.DCS ---
Discharge Providers Date of Admission: 03/16/24 00:59 Date of Discharge: March 17, 2024 Attending Provider at Admission: Nish Stack MD Attending Provider at Discharge: Lionel Day MD Consults: Telemetry nephrology Primary Care Provider: Ras Joy Diagnoses at Discharge Discharge Diagnosis (1) End stage renal disease on dialysis: Status: Acute Reason for Visit Reason for Visit: SOB Brief History: History as per HPI: Leopoldo Schaefer is a 48 year old male with a past medical history of end-stage renal disease on dialysis, CHF, atrial fibrillation, history of hypertension, COPD, who presents to [facility] due to shortness of breath, missing dialysis on Thursday. Currently patient is alert oriented x 3, following all commands, currently on 6 L, blood pressure 177/123, heart rates in the low 100s, atrial fibrillation with rapid ventricular response, on a Cardizem drip. Patient tells me that he missed dialysis on Thursday, he has been short of breath, increasingly short of breath with exertion, no lower extremity edema, did report 1 episode of chest pain, he does report a productive cough, no fevers, no chills, Hospital Course Hospital Course Patient was admitted to the hospital for evaluation management of acute on chronic hypoxic respiratory failure in setting of congestive heart failure due to uncontrolled hypertension in setting of missed dialysis in a patient with history of end-stage renal disease on hemodialysis. Nephrology was consulted in the ER and he was started on emergent dialysis. His antihypertensives were adjusted after which his blood pressures became more stable. He required 2 sessions of dialysis during hospitalization after which his oxygenation has been back to its baseline. CTA was done which ruled out pneumonia or pulmonary embolism. On admission he was in A-fib with RVR for which she was started on Cardizem drip and was later transitioned to his home dose of Cardizem. He is been discharged home in hemodynamically stable condition on adjusted oral antihypertensive. His goal blood pressures are less than 140/90 mmHg with mean over 65. He is to continue following up as an outpatient with his dialysis as before. His dose of Eliquis has been changed from 2.5 mg twice daily to 5 mg twice daily. Physical Exam Const: COMMON NORMALS: no acute distress and patient oriented x3 HENMT: COMMON NORMALS: normocephalic HEAD & SCALP: normocephalic Eye: COMMON NORMALS: Equal, round and reactive pupils present PUPIL: Yes Equal, round and reactive pupils present Neck/C-Spine: COMMON NORMALS: no JVD Resp: COMMON NORMALS: normal respiratory effort, No retractions, No use of accessory muscles and clear to auscultation bilaterally AUSCULTATION: clear to auscultation bilaterally Cardio: COMMON NORMALS: no JVD, regular rhythm, S1 normal heart sound present and S2 normal heart sound present RATE: Other RHYTHM: regular rhythm HEART SOUNDS: S1 normal heart sound present and S2 normal heart sound present GI: COMMON NORMALS: Normal to inspection, nondistended, normoactive bowel sounds present, Soft to palpation and non-tender PALPATION: Yes Soft to palpation Extremity: COMMON NORMALS: no calf tenderness and no pedal edema Neuro: COMMON NORMALS: patient oriented x3, CN's II-XII intact bilaterally and moves all extremities Psych: COMMON NORMALS: mental status grossly normal Discharge Data Studies Completed and Pending Completed Studies During Hospitalization Category Date Time Status CTA chest [CT angio chest PE protcl [id number]] Routine Cat Scan 03/16/24 09:47 Completed XR chest 1V portable [id number] Stat Exams 03/15/24 22:46 Completed Pending at discharge Category Date Time Status Blood Culture Stat Lab 03/15/24 23:25 Results Complete Blood Count w/Auto AM LABS Lab 03/18/24 04:00 Ordered Complete Blood Count w/Auto AM LABS Lab 03/19/24 04:00 Ordered Comprehensive Metabolic Panel AM LABS Lab 03/18/24 04:00 Ordered Comprehensive Metabolic Panel AM LABS Lab 03/19/24 04:00 Ordered Magnesium AM LABS Lab 03/18/24 04:00 Ordered Magnesium AM LABS Lab 03/19/24 04:00 Ordered Phosphorus AM LABS Lab 03/18/24 04:00 Ordered Phosphorus AM LABS Lab 03/19/24 04:00 Ordered Sputum Culture and Gram Stain Stat Lab 03/16/24 15:36 Uncollected Radiology Impressions Chest X-Ray 03/15/24 22:46 IMPRESSION: 1. Increased right basilar infiltrate versus atelectasis with small right effusion 2. Cardiomegaly. Chest CTA 03/16/24 09:47 IMPRESSION: 1. Cardiomegaly with ground-glass density involving both lungs. Most likely represents some degree of congestive heart failure 2. Small bilateral pleural effusions with mild bibasilar atelectasis 3. Stable mediastinal adenopathy Laboratory Results WBC 10.81 10^3/uL (3.29-11.43) 03/17/24 03:50 RBC 3.34 10^6/uL (3.85-5.65) L 03/17/24 03:50 Hgb 9.80 g/dL (11.27-16.99) L 03/17/24 03:50 Hct 32.3 % (37-53) L 03/17/24 03:50 MCV 96.7 fl (82-101) 03/17/24 03:50 MCH 29.3 pg (27-33) 03/17/24 03:50 MCHC 30.3 g/dL (30-55) 03/17/24 03:50 RDW 15.4 % (12.1-15.1) H 03/17/24 03:50 Plt Count 244 10^3/cmm (157-399) 03/17/24 03:50 MPV 9.5 fL (7.4-10.4) 03/17/24 03:50 Neut % (Auto) 90.3 % 03/17/24 03:50 Lymph % (Auto) 3.3 % 03/17/24 03:50 [place] % (Auto) 5.9 % 03/17/24 03:50 Eos % (Auto) 0.0 % 03/17/24 03:50 Baso % (Auto) 0.0 % 03/17/24 03:50 Neut # (Auto) 9.76 10^3/uL (1.8-7.7) H 03/17/24 03:50 Lymph # (Auto) 0.4 10^3/uL (0.8-4.8) L 03/17/24 03:50 [place] # (Auto) 0.6 10^3/uL (0.2-0.9) 03/17/24 03:50 Eos # (Auto) 0.0 10^3/uL (0.0-0.8) 03/17/24 03:50 Baso # (Auto) 0.0 10^3/uL (0.0-0.1) 03/17/24 03:50 Nucleated RBC % (auto) 0 % 03/17/24 03:50 Nucleated RBCs # 0.0 /100WBC 03/17/24 03:50 Specimen Type Arterial 03/15/24 23:00 Sample Site Brachial, right 03/15/24 23:00 ABG pH 7.33 (7.35-7.45) L 03/15/24 23:00 ABG pCO2 34.2 mmHg (35-45) L 03/15/24 23:00 ABG pO2 80.9 mmHg (80.0-100.0) 03/15/24 23:00 ABG HCO3 17.9 mmol/L (22-26) L 03/15/24 23:00 ABG O2 Saturation 95.0 03/15/24 23:00 ABG Base Excess -7.2 mmol/L (-2.0-2.0) L 03/15/24 23:00 Shantanu Test N/a 03/15/24 23:00 A-a O2 Gradient 3.4 mmHg (5-10) L 03/15/24 23:00 Hematocrit 32.7 % (42-52) L 03/15/24 23:00 Hgb O2 Saturation 92.6 % (95-100) L 03/15/24 23:00 Carboxyhemoglobin 1.4 %THgb (0.4-20.1) 03/15/24 23:00 Methemoglobin 1.2 % (0.4-1.5) 03/15/24 23:00 Total Hemoglobin 10.7 g/dL (14-18) L 03/15/24 23:00 Sodium 135.0 mmol/L (131-143) 03/15/24 23:00 Potassium 6.7 mmol/L (3.5-5.0) H 03/15/24 23:00 Glucose 96.0 mg/dL (70-115) 03/15/24 23:00 Ionized Calcium 1.1 mmol/L (1.1-1.4) 03/15/24 23:00 O2 Delivery Device Nc 03/15/24 23:00 O2 Liters/Min 6.0 % 03/15/24 23:00 Justice Professor ID [email or web address] 03/15/24 23:00 Sodium 132 mmol/L (136-145) L 03/17/24 03:50 Potassium 6.5 mmol/L (3.5-5.1) H* D 03/17/24 03:50 Chloride 95 mmol/L (98-107) L 03/17/24 03:50 Carbon Dioxide 24 mmol/L (22-29) 03/17/24 03:50 Anion Gap 19.5 (5-19) H 03/17/24 03:50 BUN 70 mg/dL (6-20) H 03/17/24 03:50 Creatinine 9.2 mg/dL (0.7-1.2) H* 03/17/24 03:50 GFR Calculation 6.1 mL/min (90-130) L 03/17/24 03:50 Glucose 130 mg/dL (65-115) H 03/17/24 03:50 POC Glucose 162 mg/dL (70-110) H 03/17/24 08:23 Estimat Average Glucose 88 03/16/24 01:24 Hemoglobin A1c 4.7 % (4.0-6.0) 03/16/24 01:24 Calculated Osmolality 296 mOsm/kg (285-295) H 03/17/24 03:50 Lactic Acid 1.1 mmol/L (0.5-2.2) 03/16/24 04:57 Uric Acid 6.2 mg/dL (3.4-7.0) 03/16/24 04:57 Calcium 8.8 mg/dL (8.5-10.5) 03/17/24 03:50 Phosphorus 8.0 mg/dL (2.5-4.5) H* D 03/17/24 03:50 Magnesium 2.1 mg/dL (1.7-2.3) 03/17/24 03:50 Iron 30 ug/dL (59-158) L 03/16/24 04:57 TIBC 227 mcg/dl 03/16/24 04:57 % Saturation 13.2 % (20-50) L 03/16/24 04:57 Unsat Iron Binding 197 ug/dL (112-347) 03/16/24 04:57 Ferritin 1575 ng/mL (30-400) H 03/16/24 04:57 Total Bilirubin 0.3 mg/dL (0.15-1.2) 03/17/24 03:50 AST 10 U/L (0-40) 03/17/24 03:50 ALT 7 U/L (0-41) 12/19/24 03:50 Alkaline Phosphatase 131 U/L (40-130) H 03/17/24 03:50 Troponin T Baseline 116 ng/L (0-15) H* 03/15/24 23:20 Troponin T 120 Minute 119.6 ng/L (0-15) H 03/16/24 01:24 Delta Troponin T 3.6 ABS# (0-10) 03/16/24 01:24 Troponin T Hi Sens 6Hr 107.3 ng/L (0-15) H 03/16/24 04:57 Troponin T Hi Sens 6Hr Delta -8.7 ng/L (0-12) L 03/16/24 04:57 C-Reactive Protein 48.2 mg/L (0.0-4.9) H 03/16/24 01:24 NT-Pro-B Natriuret Pep > 02164 pg/mL (0-125) H 03/15/24 23:20 Total Protein 7.3 g/dL (6.6-8.7) 03/17/24 03:50 Albumin 3.4 g/dL (3.5-5.2) L 03/17/24 03:50 Globulin 3.9 g/dL (1.3-4.6) 03/17/24 03:50 25-OH Vitamin D Total 21 ng/mL (30-100) L 03/16/24 04:57 Procalcitonin 1.53 ng/mL (0-0.5) H 03/16/24 01:24 TSH 3.26 uIU/mL (0.27-4.20) 03/16/24 01:24 PTH Intact 1911.0 pg/mL (15-65) H 03/16/24 04:57 Calcium (PTH Intact) 9.4 mg/dL (8.5-10.5) 03/16/24 04:57 Adenovirus (PCR) Not detected (NOT DETECT) 03/16/24 15:55 C. pneumoniae DNA (PCR) Not detected (NOT DETECT) 03/16/24 15:55 Coronavirus (PCR) Negative (Negative) 03/16/24 00:29 Coronavirus 229E (PCR) Not detected (NOT DETECT) 03/16/24 15:55 Hep Bs Antigen Non-reactive (Nonreactive) 03/16/24 04:57 Hep Bs Antibody < 3.5 (11.5-1000) L 03/16/24 04:57 Hepatitis C Antibody Non-reactive (Nonreactive) 03/16/24 04:57 Human Metapneumovir PCR Not detected (NOT DETECT) 03/16/24 15:55 Influenza A (H1) PCR Not detected (NOT DETECT) 03/16/24 15:55 Influenza A (PCR) Negative (Negative) 03/16/24 00:29 Influ A (H1/09) PCR Not detected (NOT DETECT) 03/16/24 15:55 Influenza A (H3) PCR Not detected (NOT DETECT) 03/16/24 15:55 Influenza Type A (PCR) Not detected (NOT DETECT) 03/16/24 15:55 Influenza Type B (PCR) Not detected (NOT DETECT) 03/16/24 15:55 M. pneumoniae (PCR) Not detected (NOT DETECT) 03/16/24 15:55 Parainfluenza 1 (PCR) Not detected (NOT DETECT) 03/16/24 15:55 Parainfluenza 2 (PCR) Not detected (NOT DETECT) 03/16/24 15:55 Parainfluenza 3 (PCR) Not detected (NOT DETECT) 03/16/24 15:55 Parainfluenza 4 (PCR) Not detected (NOT DETECT) 03/16/24 15:55 RSV (PCR) Negative (Negative) 03/16/24 00:29 RSV Type A (PCR) Not detected (NOT DETECT) 03/16/24 15:55 RSV Type B (PCR) Not detected (NOT DETECT) 03/16/24 15:55 Entero/Rhino (PCR) Not detected (NOT DETECT) 03/16/24 15:55 SARS-CoV-2 (PCR) Not detected (NOT DETECT) 03/16/24 15:55 Vitals Last Vital Signs Temp 97.3 F L 03/17/24 11:22 Pulse 83 03/17/24 12:15 Resp 24 H 03/17/24 12:15 BP 116/70 03/17/24 12:15 Pulse Ox 97 03/17/24 12:15 O2 Del Method Nasal Cannula 03/17/24 12:15 O2 Flow Rate 4 03/17/24 08:45 Discharge Plan Discharge Patient Disposition: Home Condition: Stable Prescriptions: New isosorbide mononitrate 30 mg tablet extended release 24 hr 30 mg PO DAILY Qty: 30 0RF prednisone 20 mg Tablet 40 mg PO DAILY 5 Days Qty: 10 0RF Continued (DME) Home oxygen See Rx Instructions .Route .MEDSUPPLY Qty: 1 0RF Rx Instructions: As directed atorvastatin 40 mg tablet 40 mg PO BEDTIME Qty: 30 0RF citalopram 20 mg tablet 20 mg PO QAM Qty: 30 5RF acetaminophen 500 mg Tablet 1,000 mg PO Q4H PRN (Reason: Pain) diltiazem HCl 240 mg capsule,extended release 24hr 240 mg PO QAM furosemide 80 mg tablet 80 mg PO BID isosorbide mononitrate 120 mg tablet extended release 24 hr 120 mg PO QAM PRN (Reason: Sbp more than 150 mmhg) Qty: 30 0RF carvedilol 6.25 mg Tablet 6.25 mg PO BID levetiracetam 500 mg Tablet 500 mg PO BID famotidine 40 mg Tablet 40 mg PO BID cyanocobalamin (vitamin B-12) 1,000 mcg Tablet 1,000 mcg PO DAILY ipratropium-albuterol 18-103 mcg/actuation Aerosol 18 - 103 spray INHALATION DIRECTED trazodone 150 mg tablet 150 mg PO BEDTIME clonidine HCl 0.1 mg tablet 0.1 mg PO Q6H PRN (Reason: bp>200/110mmhg) Qty: 20 0RF Rx Instructions: do not exceed 5 doses per 24 hrs aspirin 81 mg tablet,delayed release (DR/EC) 81 mg PO DAILY ipratropium-albuterol 0.5 mg-3 mg(2.5 mg base)/3 mL solution for nebulization 3 ml INHALATION Q6H PRN (Reason: Shortness Of Breath) budesonide-formoterol [Symbicort] 160-4.5 mcg/actuation HFA aerosol inhaler 2 puff INHALATION BID hydralazine 25 mg Tablet 75 mg PO TID 30 Days Qty: 90 3RF Changed Eliquis 5 mg tablet 5 mg PO BID 30 Days Qty: 60 0RF Discharge Orders: Discharge Order (Routine); Ordered 03/17/24 Ordered By: Lionel Day Referrals: Ras Joy [Primary Care Provider] - 7-10 days Discharge Diet: Usual diet Discharge Activity: Resume usual activity and Increase activity as tolerated Patient Instructions: Opioid Safety Activity Restrictions/Additional Instructions: Please continue with dialysis sessions as before. Please continue taking your antihypertensives as before. Goal blood pressures less than 140/90 mmHg. Isosorbide 30 mg has been added to your medication list on a daily basis for your high blood pressures along with all the other antihypertensive including hydralazine, Coreg and Cardizem. Dose of Eliquis has been changed to 5 mg twice daily. Discharge Attestations Time Spent in Discharge Care*: greater than 30 min Specific Discharge Activities: educating patient, discussing with pcp/other providers, discussing with case assistant/social workers/dc planners, documenting/other paperwork and evaluating patient/reviewing data Status at Discharge: Cognitive status at discharge: cognitively intact, Behavioral status at discharge: cooperative, Functional status at discharge: other assisted ambulation, Overall status at discharge: patient is back to baseline Quality Metrics Clinical Quality Measures [ No reported AMI, CVA or VTE this stay] Coding Level of Care Code 53186 Total time (in minutes) for Discharge: 60 Diagnoses End stage renal disease on dialysis N18.6; Z99.2
[2024-03-17] MEDS: sevelamer 800 mg Tablet 1600 MG PO (15:56)
--- NOTE | 2024-03-17 16:21 | PC.NURSE ---
Patient's IV was discontinued. All discharge instructions along with new medication information were given to the patient. Patient did not want the medications to be delivered at bedside but wanted them to be sent to their preferred pharmacy. Patient was stable upon discharge.
== END 2024-03-17 16:19 | disposition home or self-care (01) | DRG 291 ==
LOC: ER 03-16 01:14 → ICU 03-16 01:35
PROVIDERS: Internal Medicine Nephrology; Admitting Provider Family Medicine; Emergency Provider Emergency Medicine; PCP Family Medicine; Visit Provider Student in an Organized Health Care Education/Training Program
DX: I13.2 Hypertensive heart and chronic kidney disease with heart failure and with stage 5 chronic kidney disease, or end stage renal disease (principal); I50.43 Acute on chronic combined systolic (congestive) and diastolic (congestive) heart failure; J18.9 Pneumonia, unspecified organism; N18.6 End stage renal disease; J96.21 Acute and chronic respiratory failure with hypoxia; J44.0 Chronic obstructive pulmonary disease with (acute) lower respiratory infection; J44.1 Chronic obstructive pulmonary disease with (acute) exacerbation; Z99.2 Dependence on renal dialysis; Z91.158 Patient's noncompliance with renal dialysis for other reason; I48.0 Paroxysmal atrial fibrillation; I16.0 Hypertensive urgency; E87.5 Hyperkalemia; I25.10 Atherosclerotic heart disease of native coronary artery without angina pectoris; E55.9 Vitamin D deficiency, unspecified; F41.9 Anxiety disorder, unspecified; F32.A Depression, unspecified; K21.9 Gastro-esophageal reflux disease without esophagitis; G47.33 Obstructive sleep apnea (adult) (pediatric); F17.210 Nicotine dependence, cigarettes, uncomplicated; D64.9 Anemia, unspecified; Z99.81 Dependence on supplemental oxygen; Z79.01 Long term (current) use of anticoagulants
CPT/HCPCS: 0241U; 36415; 36416; 36600; 71045; 71275; 80051; 80053; 82306; 82310; 82330; 82728; 82805; 82962; 83036; 83540; 83550; 83605; 83735; 83880; 83970; 84100; 84145; 84443; 84484; 84550; 85025; 86140; 86706; 86803; 87040; 87340; 87486; 87581; 87633; 90935; 93005; 94640; 94664; 96365; 96375; 99285; J0456; J0612; J0696; J1644; J1815; J1940; J2470; J2919; J3490; J7050; J7512; J7613; J7626; J7799; Q0144; Q3014; Q4081

== ENCOUNTER 2024-05-19 15:26 | Inpatient (IN) | payer MEDICARE, SELFPAY ==
[2024-05-19] VITALS (14 sets, daily range): BP systolic 108–210; BP diastolic 67–147; PULSE 80–139; RESP 18–22; TEMP 36.4–36.5; O2SAT 92–100
--- NOTE | 2024-05-19 15:31 | XR_ITS ---
WS: [id number] Exam: XR chest 1V portable [id number] Date/Time of Exam: 05/19/2024 3:35 PM Reason For Exam: sob Comparison 03/15/2024. The lungs are fully expanded. No consolidating infiltrates. Chronic interstitial changes noted bilaterally. Small RIGHT basal pleural effusion and plaque atelectasis in the RIGHT base. A RIGHT subclavian double lumen dialysis catheter in place ending near the cavoatrial junction. The heart is enlarged but unchanged in size. The mediastinum is normal in contour. Degenerative change of the LEFT glenohumeral joint and deformity of the left humeral head. XR/XR chest 1V portable [id number] IMPRESSION: 1. Small RIGHT basal pleural effusion and plaque atelectasis in the RIGHT lung base. No consolidated infiltrates. 2. Cardiac enlargement unchanged. 3. Chronic interstitial changes.
--- NOTE | 2024-05-19 15:31 | ECG_ITS ---
[facility] Test Date: 2024-05-19 Pat Name: Leopoldo Schaefer Department: Room: Gender: Male [employer]er Machine: : [id number] Requested By: Florencia Null Order Number: [id number] Vaughn MD: Lane Lloyd M.D. Measurements Intervals Braxton Rate: 114 P: 0 RI: 0 QRS: 20 QRSD: 97 T: 88 QT: 318 QTc: 439 Interpretive Statements ATRIAL FIBRILLATION WITH RAPID VENTRICULAR RESPONSE WITH ABERRANT CONDUCTION OR VENTRICULAR PREMATURE COMPLEXES Compared to ECG 03/25/2024 17:15:39 Ventricular premature complex(es) now present Aberrant conduction of supraventricular beat(s) now present Sinus bradycardia no longer present Electronically Signed On 05-19-2024 17:49:[address] Lloyd M.D. [email or web address] [id number]
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
[2024-05-19 16:36] LABS: Basophils # 0.1 10^3/uL (0.0-0.1); Basophils % 1.1 %; Eosinophils # 0.2 10^3/uL (0.0-0.8); Eosinophils % 3.4 %; Hematocrit 37.6 % (37-53); Lymphocytes # 0.6 10^3/uL (0.8-4.8); Lymphocytes % 10.9 %; Mean Corpuscular HGB Conc 31.4 g/dL (30-55); Mean Corpuscular Hemoglobin 30.8 pg (27-33); Mean Corpuscular Volume 98.2 fl (82-101); Mean Platelet Volume 9.4 fL (7.4-10.4); Monocytes # 0.7 10^3/uL (0.2-0.9); Monocytes % 11.9 %; Neutrophils # 4.07 10^3/uL (1.8-7.7); Neutrophils % 72.5 %; Nucleated Red Blood Cells % 0 %; Platelet Count 163 10^3/cmm (157-399); Red Blood Count 3.83 10^6/uL (3.85-5.65); Red Cell Distribution Width 14.8 % (12.1-15.1); White Blood Count 5.61 10^3/uL (3.29-11.43)
[2024-05-19 16:53] LABS: INR 1.12 (0.8-1.2)
[2024-05-19 17:16] LABS: Alanine Aminotransferase 15 U/L (0-41); Albumin Level 3.9 g/dL (3.5-5.2); Alkaline Phosphatase 184 U/L (40-130); Anion Gap 23.1 (5-19); Aspartate Amino Transferase 14 U/L (0-40); Blood Urea Nitrogen 77 mg/dL (6-20); Calcium 9.1 mg/dL (8.5-10.5); Carbon Dioxide 25 mmol/L (22-29); Chloride 99 mmol/L (98-107); Creatinine Clr Calc Pharmacy 9.3276; Globulin 3.2 g/dL (1.3-4.6); Glucose 89 mg/dL (65-115); Osmolality Calculated 314 mOsm/kg (285-295); Potassium 6.1 mmol/L (3.5-5.1); Sodium 141 mmol/L (136-145); Total Bilirubin 0.4 mg/dL (0.15-1.2); Total Protein 7.1 g/dL (6.6-8.7)
[2024-05-19] MEDS: dilTIAZem 5 mg/mL SDV 5 mL 20 MG IVP (17:31)
[2024-05-19] MEDS: hyDRALAzine 20 mg/mL INJ 1 mL 10 MG IVP (17:32)
[2024-05-19 17:45] LABS: NT Pro B Type Natriuretic Pept > 70000 pg/mL (0-125)
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
[2024-05-19] MEDS: insulin regular-human 100 units/1 mL 10 UNIT IVP (19:16)
[2024-05-19] MEDS: dilTIAZem 100 MG in sodium chloride 0.9% (add-van) 100 ML IV (19:21)
--- NOTE | 2024-05-19 19:22 | PC.NURSE ---
This nurse went into patient's room to verify cardizem drip. When this nurse attempted to place cardiac leads on patient, patient asked, Why are you doing that? This nurse attempted to educate the patient on the importance of cardiac leads while on cardiac medication, to which the patient stated Don't put those on me. I'll just tear them off again. Cardiac leads remain off at this time.
[2024-05-19 19:23] LABS: Glucose Point of Care 79 mg/dL (70-110)
[2024-05-19] MEDS: trazodone 50 mg Tablet 150 MG PO (20:29)
[2024-05-19] MEDS: dilTIAZem 30 mg Tablet 90 MG PO (20:29)
[2024-05-19] MEDS: carvedilol 6.25 mg Tablet PO (20:30)
[2024-05-19] MEDS: hyDRALAzine 50 mg Tablet 100 MG PO (20:30)
--- NOTE | 2024-05-19 20:33 | PC.NURSE ---
pt continues to refuse cardiac monitoring.
[2024-05-19] MEDS: pantoprazole 40 mg SDV IVP (20:36)
[2024-05-19] MEDS: atorvastatin 40 mg Tablet PO (20:36)
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
--- NOTE | 2024-05-19 22:13 | PC.NURSE ---
principal associate collected pt for Dialysis at 2200.
--- NOTE | 2024-05-19 22:36 | PC.HD ---
Patient arrived to dialysis room with no dressing on his catheter, which is usual for him. As with every other encounter, patient was educated on the importance of keeping a clean dressing on his catheter site; however, patient refuses to keep dressings on. No s/s of infection noted. Area was cleansed with Chloraprep. Triple antibiotic ointment applied to catheter insertion site and a sterile Covaderm was applied.
[2024-05-19 23:14] LABS: Hepatitis B Surface AB < 3.5 (11.5-1000); Hepatitis B Surface Antigen Non-Reactive (Nonreactive)
[2024-05-19 23:15] LABS: Hepatitis C Virus Antibody Non-Reactive (Nonreactive)
[2024-05-20] VITALS (12 sets, daily range): BP systolic 114–160; BP diastolic 64–134; PULSE 53–85; RESP 15–18; TEMP 36.4–36.6; O2SAT 92–100; BMI 29.5
--- NOTE | 2024-05-20 00:58 | PC.NURSE ---
patient arrived back to unit @0050.
[2024-05-20] MEDS: dilTIAZem 30 mg Tablet 90 MG PO ×4 (01:30→20:48)
--- NOTE | 2024-05-20 05:31 | PC.NURSE ---
Patient refused celexa this morning. Patient states he hasnt taken this medication in years and states I'm not depressed .
[2024-05-20 05:39] LABS: Basophils # 0.1 10^3/uL (0.0-0.1); Eosinophils # 0.2 10^3/uL (0.0-0.8); Eosinophils % 3.7 %; Hematocrit 35.9 % (37-53); Lymphocytes # 0.8 10^3/uL (0.8-4.8); Lymphocytes % 12.9 %; Mean Corpuscular Hemoglobin 31.7 pg (27-33); Mean Corpuscular Volume 98.9 fl (82-101); Mean Platelet Volume 9.4 fL (7.4-10.4); Monocytes # 0.9 10^3/uL (0.2-0.9); Monocytes % 14.7 %; Neutrophils # 3.97 10^3/uL (1.8-7.7); Neutrophils % 67.4 %; Nucleated Red Blood Cells % 0 %; Platelet Count 167 10^3/cmm (157-399); Red Blood Count 3.63 10^6/uL (3.85-5.65); Red Cell Distribution Width 14.8 % (12.1-15.1)
[2024-05-20 06:00] LABS: Alanine Aminotransferase 13 U/L (0-41); Albumin Level 3.6 g/dL (3.5-5.2); Alkaline Phosphatase 168 U/L (40-130); Anion Gap 21.8 (5-19); Aspartate Amino Transferase 13 U/L (0-40); Blood Urea Nitrogen 59 mg/dL (6-20); Carbon Dioxide 25 mmol/L (22-29); Chloride 94 mmol/L (98-107); Creatinine Clr Calc Pharmacy 11.3989; Globulin 3.2 g/dL (1.3-4.6); Glomerular Filtration Rate 6.3 mL/min (90-130); Glucose 108 mg/dL (65-115); Osmolality Calculated 299 mOsm/kg (285-295); Phosphorus 6.4 mg/dL (2.5-4.5); Potassium 4.8 mmol/L (3.5-5.1); Sodium 136 mmol/L (136-145); Total Bilirubin 0.3 mg/dL (0.15-1.2); Total Protein 6.8 g/dL (6.6-8.7)
--- NOTE | 2024-05-20 09:56 | PC.NURSE ---
This HS/RN received a call from Dr Day regarding new orders. Order included decreasing pt's O2 down from 5L and sustaining him above 90%. Pt currently on 5L sating 98%. RN attempted to decrease O2 from 5L to 3L, and patient verbally disagreed. RN was able to titrate O2 down with patient compliance. Currently pt sating 95% on 3L
[2024-05-20] MEDS: pantoprazole 40 mg SDV IVP ×2 (09:59→19:48)
[2024-05-20] MEDS: FUROsemide 40 mg Tablet 80 MG PO ×2 (10:02→18:10)
[2024-05-20] MEDS: apixaban 5 mg Tablet PO ×2 (10:03→18:09)
[2024-05-20] MEDS: carvedilol 6.25 mg Tablet PO ×2 (10:09→18:09)
[2024-05-20] MEDS: hyDRALAzine 50 mg Tablet 100 MG PO ×3 (10:09→20:48)
--- NOTE | 2024-05-20 10:39 | PC.NURSE ---
PT REFUSED DOCUSATE, STATES I DONT TAKE THAT SHIT AT HOME, IM NOT TAKING IT HERE
--- NOTE | 2024-05-20 11:57 | P.PN_ITS ---
Subjective 2 Subjective: No acute events overnight. Patient has remained hemodynamically stable and afebrile. Underwent emergent dialysis yesterday. Cardizem drip weaned off. Saturating well on 5 L. Plan to wean off. Vitals/I&O/Wt Last Vital Signs Temp 97.9 F 05/20/24 00:35 Pulse 53 L 05/20/24 10:10 Resp 17 05/20/24 04:00 BP 134/79 05/20/24 10:10 Pulse Ox 92 05/20/24 10:10 O2 Del Method Nasal Cannula 05/20/24 10:10 O2 Flow Rate 5 05/20/24 04:00 05/19/24 05/20/24 05/20/24 22:59 06:59 14:59 Intake Total 5.833 / 5.833 561.208 / 567.041 Output Total 3000 / 3000 Balance 5.833 / 5.833 -2438.792 / -2432.959 Weight last 48 hrs Weight 93.4 kg Weight 95.708 kg Physical Exam 2 Narrative: General: No acute distress, AO x3, chronic sick appearing HEENT: PERRLA, pupils bilaterally equal and reactive Chest: Normal vesicular breath sounds, fine crackles bilaterally up to mid lungs equal good air entry bilaterally CVS: S1-S2 regular, no murmurs, no tachycardia, no gallops, no rubs Abdomen: Soft, nontender, no organomegaly, bowel sounds present Neuro: No focal deficits, no facial deformity, AO x3, power 5/5 in all limbs Data 05/20/24 05:27 05/20/24 05:27 A&P Assessment and plan (1) End stage renal disease on dialysis: (2) Missed dialysis: (3) Accelerated hypertension: (4) Atrial fibrillation with rapid ventricular response: (5) Systolic CHF, acute: (6) Hyperkalemia: Plan 48-year-old with history of end-stage renal disease presents to the ER after missing dialysis because found to be in hypertensive urgency and a-fib with rvr along with symptoms concerning for congestive heart failure requiring up to 5 l of oxygen supplementation. End-stage renal disease: Admits dialysis: Hyperkalemia: Will consult nephrology for urgent dialysis. Medical reconciliation done for nephrotoxic drugs. Treated for hyperkalemia with dextrose and insulin. Getting dialysis. Will recheck in AM. Hypertensive urgency: Goal blood pressure less than 140/90 mmHg. Currently more than 200. Restart home Coreg 6.25 mg, changed to Cardizem to 90 every 6, hydralazine 100 mg 3 times daily. IV hydralazine 10 mg every 6 hours as needed for systolic blood pressure more than 160 mmHg. Hoping for blood pressure control after dialysis. A-fib with RVR: Most likely in setting of congestive heart failure. Currently on Cardizem drip. Wean keeping heart rate below 100. Restart Cardizem at 90 mg every 6 hours. Eliquis to be continued for anticoagulation. Hypoxic respiratory failure: Most likely in setting of diastolic heart failure from hypertensive urgency due to missed dialysis. Continue with IV Lasix. Fluid restriction to less than 1500 cc. Getting emergent dialysis. Full code Renal dialysis diet Protonix OPD prophylaxis Home dose of Eliquis will be sufficient for DVT prophylaxis. Plan for the day: Continue with current antihypertensives including Coreg 6.25 mg twice daily, Cardizem 90 every 6 hours, hydralazine 100 3 times daily. Plan for repeat dialysis in a.m. Monitor electrolytes. Cardizem drip weaned off. Continue with telemetry. Can transfer to [facility] floor. PDMP PDMP Reviewed: Not Reviewed Attestations 2 Medical Necessity Statement*: Requires further hospitalization for management of hypertensive urgency, A-fib with RVR, congestive heart failure in setting of missed dialysis in a patient with end-stage renal disease on hemodialysis. Diagnoses End stage renal disease on dialysis N18.6; Z99.2 Missed dialysis Accelerated hypertension I10 Atrial fibrillation with rapid ventricular response I48.91 Systolic CHF, acute I50.21 Hyperkalemia E87.5
[2024-05-20] MEDS: morphine 4 mg/mL SDV 1 mL 2 MG IVP (15:30)
--- NOTE | 2024-05-20 20:40 | PC.NURSE ---
Patient refused telemetry. This nurse educated patient on importance of wearing telemetry so we can monitor his rhythm with him having afib with rvr history.
[2024-05-20] MEDS: atorvastatin 40 mg Tablet PO (20:48)
[2024-05-20] MEDS: trazodone 50 mg Tablet 150 MG PO (20:48)
--- NOTE | 2024-05-20 21:30 | P.PN_ITS ---
Subjective 2 Subjective: no new c/o Medications: Reviewed: Yes Vitals/I&O/Wt Last Vital Signs Temp 97.8 F 05/20/24 19:55 Pulse 68 05/20/24 19:55 Resp 17 05/20/24 19:55 BP 123/69 05/20/24 19:55 Pulse Ox 99 05/20/24 19:55 O2 Del Method Nasal Cannula 05/20/24 19:55 O2 Flow Rate 4 05/20/24 15:32 05/20/24 05/20/24 05/20/24 06:59 14:59 22:59 Intake Total 561.208 / 567.041 512.959 / 512.959 Output Total 3000 / 3000 Balance -2438.792 / -2432.959 512.959 / 512.959 Weight last 48 hrs Weight 93.398 kg Weight 93.4 kg Weight 95.708 kg Physical Exam 2 Narrative: awake , alert PEERLA S1S2 RRR per report Lungs -+ crackes per report No edema Data 05/20/24 05:27 05/20/24 05:27 A&P Assessment and plan (1) End stage renal disease on dialysis: 1. End-stage renal disease: Patient now presented with volume overload and hyperkalemia, missed dialysis on Thursday. s/p Plan for emergent HD yesterday , plan for HD again tomorrow 2. Hyperkalemia: improved , low K diet 3. Volume overload: HD as above 4. Acute on chronic respiratory failure: Multifactorial in the setting of CHF and COPD, HD as above 5. Anemia: Hemoglobin at goal, monitor PDMP PDMP Reviewed: Not Reviewed Attestations 2 Medical Necessity Statement*: per leo Coding Level of Care Code Acute Code for Chg Fwd Diagnoses End stage renal disease on dialysis N18.6; Z99.2
[2024-05-21] VITALS (7 sets, daily range): BP systolic 104–164; BP diastolic 65–92; PULSE 43–68; RESP 14–18; TEMP 35.2–36.5; O2SAT 95–100
[2024-05-21] MEDS: dilTIAZem 30 mg Tablet 90 MG PO (02:44)
[2024-05-21 04:48] LABS: Basophils # 0.1 10^3/uL (0.0-0.1); Basophils % 0.9 %; Eosinophils # 0.3 10^3/uL (0.0-0.8); Eosinophils % 4.3 %; Hematocrit 40.7 % (37-53); Lymphocytes # 0.6 10^3/uL (0.8-4.8); Lymphocytes % 9.2 %; Mean Corpuscular HGB Conc 30.2 g/dL (30-55); Mean Corpuscular Hemoglobin 30.7 pg (27-33); Mean Corpuscular Volume 101.5 fl (82-101); Mean Platelet Volume 9.8 fL (7.4-10.4); Monocytes # 0.9 10^3/uL (0.2-0.9); Monocytes % 13.8 %; Neutrophils # 4.68 10^3/uL (1.8-7.7); Neutrophils % 71.5 %; Nucleated Red Blood Cells % 0 %; Platelet Count 192 10^3/cmm (157-399); Red Blood Count 4.01 10^6/uL (3.85-5.65); Red Cell Distribution Width 15.1 % (12.1-15.1); White Blood Count 6.54 10^3/uL (3.29-11.43)
[2024-05-21 05:19] LABS: Alanine Aminotransferase 13 U/L (0-41); Albumin Level 3.7 g/dL (3.5-5.2); Alkaline Phosphatase 175 U/L (40-130); Anion Gap 21.4 (5-19); Aspartate Amino Transferase 14 U/L (0-40); Blood Urea Nitrogen 75 mg/dL (6-20); Calcium 9.3 mg/dL (8.5-10.5); Carbon Dioxide 23 mmol/L (22-29); Chloride 93 mmol/L (98-107); Creatinine Clr Calc Pharmacy 9.3271; Globulin 3.2 g/dL (1.3-4.6); Glucose 104 mg/dL (65-115); Magnesium 2.1 mg/dL (1.7-2.3); Osmolality Calculated 295 mOsm/kg (285-295); Potassium 6.4 mmol/L (3.5-5.1); Sodium 131 mmol/L (136-145); Total Bilirubin 0.4 mg/dL (0.15-1.2); Total Protein 6.9 g/dL (6.6-8.7)
[2024-05-21 05:26] LABS: Phosphorus 7.6 mg/dL (2.5-4.5)
[2024-05-21] MEDS: citalopram 20 mg Tablet PO (06:38)
[2024-05-21] MEDS: FUROsemide 40 mg Tablet 80 MG PO (09:54)
[2024-05-21] MEDS: carvedilol 6.25 mg Tablet PO (09:54)
[2024-05-21] MEDS: apixaban 5 mg Tablet PO (09:54)
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
--- NOTE | 2024-05-21 20:10 | P.PN_ITS ---
Subjective 2 Subjective: getting HD Medications: Reviewed: Yes Vitals/I&O/Wt Last Vital Signs Temp 95.7 F L 05/21/24 15:39 Pulse 68 05/21/24 15:39 Resp 16 05/21/24 15:39 BP 164/92 05/21/24 15:39 Pulse Ox 95 05/21/24 15:39 O2 Del Method Nasal Cannula 05/21/24 11:32 O2 Flow Rate 4 05/21/24 11:30 05/21/24 05/21/24 05/21/24 06:59 14:59 22:59 Intake Total 500 / 1252.959 860 / 860 Output Total 4000 / 4000 Balance 500 / 1252.959 -3140 / -3140 Weight last 48 hrs Weight 93.3 kg Weight 96.116 kg Weight 93.398 kg Weight 93.4 kg Physical Exam 2 Narrative: awake , alert PEERLA S1S2 RRR per report Lungs -+ crackes per report No edema Data 05/21/24 04:19 05/21/24 04:19 A&P Assessment and plan (1) End stage renal disease on dialysis: 1. End-stage renal disease: Patient now presented with volume overload and hyperkalemia, missed dialysis on Thursday. s/p Plan for emergent HD yesterday , plan for HD again today 2. Hyperkalemia: improved , low K diet 3. Volume overload: HD as above 4. Acute on chronic respiratory failure: Multifactorial in the setting of CHF and COPD, HD as above 5. Anemia: Hemoglobin at goal, monitor PDMP PDMP Reviewed: Not Reviewed Attestations 2 Medical Necessity Statement*: per leo Coding Level of Care Code Acute Code for Chg Fwd Diagnoses End stage renal disease on dialysis N18.6; Z99.2
== END 2024-05-21 14:40 | disposition home or self-care (01) | DRG 291 ==
LOC: ER 17:31 → ER IP 18:48 → NP 20:22 → ER IP 20:25 → ICU 05-20 06:56 → ER IP 05-20 07:35 → MEDSURG 05-20 16:45
PROVIDERS: Hospitalist; Admitting Provider Student in an Organized Health Care Education/Training Program; Emergency Provider Emergency Medicine; PCP Family Medicine; Visit Provider Student in an Organized Health Care Education/Training Program
DX: I13.2 Hypertensive heart and chronic kidney disease with heart failure and with stage 5 chronic kidney disease, or end stage renal disease (principal); I50.23 Acute on chronic systolic (congestive) heart failure; N18.6 End stage renal disease; J96.21 Acute and chronic respiratory failure with hypoxia; Z99.2 Dependence on renal dialysis; Z91.158 Patient's noncompliance with renal dialysis for other reason; E87.5 Hyperkalemia; E87.70 Fluid overload, unspecified; J44.9 Chronic obstructive pulmonary disease, unspecified; D63.1 Anemia in chronic kidney disease; I48.0 Paroxysmal atrial fibrillation; I16.0 Hypertensive urgency; Z79.891 Long term (current) use of opiate analgesic; Z79.01 Long term (current) use of anticoagulants; F41.9 Anxiety disorder, unspecified; F32.A Depression, unspecified; F17.210 Nicotine dependence, cigarettes, uncomplicated; E55.9 Vitamin D deficiency, unspecified; G47.00 Insomnia, unspecified; L72.3 Sebaceous cyst; G47.33 Obstructive sleep apnea (adult) (pediatric)
CPT/HCPCS: 36415; 36416; 71045; 80053; 82962; 83735; 83880; 84100; 85025; 85610; 86706; 86803; 87340; 90935; 93005; 94664; 96365; 96375; 99285; J0360; J1815; J2270; J2470; J3490

== ENCOUNTER 2024-09-21 11:33 | Inpatient (IN) | payer MEDICARE, SELFPAY ==
[2024-09-21] VITALS (13 sets, daily range): BP systolic 109–153; BP diastolic 87–117; PULSE 89–119; RESP 18–23; TEMP 36.3–36.8; O2SAT 90–99
--- NOTE | 2024-09-21 11:52 | XR_ITS ---
WS: [id number] Exam: XR chest 1V portable [id number] Date/Time of Exam: 09/21/2024 11:52 AM Reason For Exam: Shortness of breath Comparison 05/19/2024. Mild bibasal infiltrates are noted suspicious for developing pneumonia. Mild cardiac enlargement unchanged. No pneumothorax or pleural effusion. A RIGHT subclavian double-lumen dialysis catheter ends at the cavoatrial junction. Bony structures are intact. There is bony erosion of the medial proximal left humerus. XR/XR chest 1V portable [id number] IMPRESSION: 1. Mild bibasal pulmonary infiltrates which may indicate developing pneumonia. 2. Slight cardiac enlargement unchanged.
--- NOTE | 2024-09-21 11:52 | ECG_ITS ---
[employer] [facility] Test Date: 2024-09-21 Pat Name: Leopoldo Schaefer Department: Room: Gender: Male [employer] Coordinator: : 1975 Requested By: Cecy Stevens Order Number: [id number] Vaughn MD: Lane Lloyd M.D. Measurements Intervals [place] Rate: 111 P: 0 FL: 0 QRS: 68 QRSD: 98 T: 82 QT: 327 QTc: 446 Interpretive Statements ATRIAL FIBRILLATION WITH RAPID VENTRICULAR RESPONSE Compared to ECG 05/19/2024 15:51:13 Ventricular premature complex(es) no longer present Aberrant conduction of supraventricular beat(s) no longer present Electronically Signed On 09-29-2024 09:28:[address] Lloyd M.D. [email or web address]
--- NOTE | 2024-09-21 12:00 | W.ED.SOB ---
HPI - SOB/Dyspnea General: Chief Complaint: Shortness of Breath/Dyspnea Stated Complaint: SOB Time Seen by Provider: 09/21/24 11:50 History of Present Illness: HPI Narrative: 49-year-old man with a history of end-stage renal disease on dialysis MWF, COPD, chronic hypoxemic respiratory failure on 6 L nasal cannula at all times, atrial fibrillation, chronic anticoagulation on Eliquis who reports to the emergency room with shortness of breath. EMS reports he has breathing treatments and inhalers at home but had not taken any. He said they gave him some albuterol and it helped some. O2 sats in the mid 90s on 6 L. He says he just cannot catch his breath and he feels like his potassium is high. He did go to dialysis this morning. Related Data Home Medications ?Medication ?Instructions ?Recorded ?Confirmed diltiazem HCl 240 mg 240 mg PO QAM 10/14/21 05/19/24 capsule,extended release 24 hr furosemide 80 mg tablet 80 mg PO BID 09/14/23 05/19/24 carvedilol 6.25 mg tablet 6.25 mg PO BID 01/17/24 05/19/24 famotidine 40 mg tablet 40 mg PO BID 01/17/24 05/19/24 trazodone 150 mg tablet 150 mg PO BEDTIME 01/17/24 05/19/24 budesonide-formoterol HFA 160 2 puff inhalation BID 03/16/24 05/19/24 mcg-4.5 mcg/actuation aerosol inhaler (Symbicort) hydralazine 100 mg tablet 100 mg PO TID 05/19/24 05/19/24 Previous Rx's ?Medication ?Instructions ?Recorded atorvastatin 40 mg tablet 40 mg PO BEDTIME #30 tabs 05/16/22 citalopram 20 mg tablet 20 mg PO QAM #30 tabs 09/08/22 isosorbide mononitrate 120 mg 120 mg PO QAM PRN Sbp more than 10/23/23 tablet,extended release 24 hr 150 mmhg #30 tabs apixaban 5 mg tablet (Eliquis) 5 mg PO BID 30 days #60 tabs 03/17/24 Allergies Allergy/AdvReac Type Severity Reaction Status Date / Time lisinopril Allergy swelling Verified 03/15/24 22:51 Penicillins Allergy ALGY-Hives Verified 03/15/24 22:51 tramadol Allergy ALGY-Hives Verified 03/15/24 22:51 Review of Systems Narrative: Constitutional symptoms: Negative except as documented in HPI. Skin symptoms: Negative except as documented in HPI. Eye symptoms: Negative except as documented in HPI. ENMT symptoms: Negative except as documented in HPI. Respiratory symptoms: Negative except as documented in HPI. Cardiovascular symptoms: Negative except as documented in HPI. Gastrointestinal symptoms: Negative except as documented in HPI. Genitourinary symptoms: Negative except as documented in HPI. Musculoskeletal symptoms: Negative except as documented in HPI. Neurologic symptoms: Negative except as documented in HPI. Psychiatric symptoms: Negative except as documented in HPI. Endocrine symptoms: Negative except as documented in HPI. PFS ED PFSH: Medical History (Updated 09/21/24 @ 13:23 by Cecy Anderson MD) Atrial fibrillation with RVR End stage kidney disease Uncontrolled hypertension Hypoglycemia Atrial fibrillation with RVR COPD exacerbation Pulmonary edema Non-compliance with renal dialysis End stage renal disease Anxiety and depression Obstructive sleep apnea Allergic dermatitis ESRD (end stage renal disease) Pleural effusion Dialysis patient Hypertensive emergency Atrial fibrillation/flutter Chest pain Elevated troponin Resistant hypertension Paroxysmal atrial fibrillation with RVR End stage chronic kidney disease Anemia Diastolic CHF Sebaceous cyst GERD (gastroesophageal reflux disease) Insomnia COPD (chronic obstructive pulmonary disease) Reports he is on 4 L of oxygen at home Hypoxia Anxiety and depression Lower respiratory tract infection Encounter to establish care Vitamin D deficiency Hypertension CRF (chronic renal failure) Surgical History S/P hemodialysis catheter insertion H/O hand surgery right hand with hardware H/O circumcision Presence of peritoneal dialysis catheter S/P dialysis catheter insertion (12/12/19) Removed on 04/04/2020 Family History Other Adopted Denies family history of Anesthesia complication Bleeding disorder Social History Smoking and tobacco/nicotine status: current every day tobacco/nicotine user (1ppd X26 years) cigarettes [ Other cigarette details: On and off quitting and restarting] Alcohol intake: never Substance/Drug Use: never Household members: significant other Marital status: Single Current occupational status: disabled Physical Exam Narrative: EXAM NARRATIVE: General: Alert, no acute distress. Skin: Warm, dry. Head: Normocephalic, atraumatic. Neck: Supple, trachea midline. Eye: Extraocular movements are intact. Ears, nose, mouth and throat: mucosa moist. Cardiovascular: Regular, tachycardic, normal peripheral perfusion. Respiratory: Lungs are clear to auscultation, respirations are non-labored, breath sounds are equal, Symmetrical chest wall expansion. Gastrointestinal: Soft, Nontender, Non distended Musculoskeletal: Normal ROM, no deformity. Neurological: Alert and oriented, No focal neurological deficit observed. Psychiatric: Cooperative, appropriate mood & affect. Course Vital Signs: Vital signs: Vital Signs Temperature 98.2 F 09/21/24 11:49 Pulse Rate 112 H 09/21/24 12:51 Respiratory Rate 20 H 09/21/24 11:49 Blood Pressure 123/89 09/21/24 12:51 Pulse Oximetry 91 09/21/24 12:51 Oxygen Delivery Me thod Nasal Cannula 09/21/24 11:49 Oxygen Flow Rate 6 09/21/24 11:49 MDM - SOB/Dyspnea Medical Decision Making Differential diagnosis for patient with shortness of breath includes but is not limited to and based on the above HPI, review of systems and physical exam: Pneumonia. Bronchitis. Asthma or COPD with acute exacerbation. Acute coronary syndrome / HI. Pulmonary embolism. Anxiety. Congestive heart failure. Viral infections including influenza and Covid-19. Atrial fibrillation. Anxiety. Pleural effusion. Pneumothorax. Orders placed to evaluate differential diagnosis based on the above differential, HPI and physical exam EKG: Time 12:06 AM. Rate 111. Atrial fibrillation with rapid ventricular response, No ST-T changes, no ectopy, This was reviewed and interpreted by myself the ER physician at 12:10 AM Lab Review: Laboratory results were reviewed and interpreted by myself the emergency room physician. No leukocytosis. No anemia. BUN/creatinine are 55 and 8.6. A little high for someone who had gotten dialysis today. Potassium is normal at 4.6. Chest x-ray: Pulmonary infiltrates which likely indicate a developing pneumonia given patient's symptoms of cough shortness of breath and worsening dyspnea. This was reviewed and interpreted by myself the emergency room physician. I also reviewed the radiology report. I reviewed the patient's medical record. Reexamination: Patient remained stable. No altered mental status. No focal motor deficits. Still with some increased respiratory effort. Sats in the upper 80s and low 90s on 6 L nasal cannula. Discussed findings with patient and wait options of going home and being admitted he feels like he needs to be admitted. Consultation: I spoke with Dr. Cho who is on-call for the hospitalist service who agrees to admission. Assessment and plan: Community-acquired pneumonia End-stage renal disease on dialysis Chronic hypoxemic respiratory failure COPD with acute exacerbation ?Breathing treatment in the ambulance. IV Rocephin and azithromycin here. IV Solu-Medrol -I discussed the patient with the hospitalist on-call who is admitting the patient. - Discussed findings and plan with patient. Answered any questions. - All laboratory values were reviewed and interpreted personally by myself, the ER physician - All imaging was reviewed and interpreted personally by myself, the ER physician. - Evaluation and treatment of this problem were appropriate in the emergency setting Lab Data 09/21/24 12:01 09/21/24 12:01 Labs/Radiology: Radiology Impressions Chest X-Ray 09/21/24 11:52 IMPRESSION: 1. Mild bibasal pulmonary infiltrates which may indicate developing pneumonia. 2. Slight cardiac enlargement unchanged. Laboratory Results WBC 9.80 10^3/uL (3.29-11.43) 09/21/24 12:01 RBC 3.77 10^6/uL (3.85-5.65) L 09/21/24 12:01 Hgb 11.90 g/dL (11.27-16.99) 09/21/24 12:01 Hct 38.2 % (37-53) 09/21/24 12:01 MCV 101.3 fl (82-101) H 09/21/24 12:01 MCH 31.6 pg (27-33) 09/21/24 12:01 MCHC 31.2 g/dL (30-55) 09/21/24 12:01 RDW 13.3 % (12.1-15.1) 09/21/24 12:01 Plt Count 251 10^3/cmm (157-399) 09/21/24 12:01 MPV 8.7 fL (7.4-10.4) 09/21/24 12:01 Neut % (Auto) 80.9 % 09/21/24 12:01 Lymph % (Auto) 6.1 % 09/21/24 12:01 [place] % (Auto) 10.2 % 09/21/24 12:01 Eos % (Auto) 1.5 % 09/21/24 12:01 Baso % (Auto) 0.3 % 09/21/24 12:01 Neut # (Auto) 7.92 10^3/uL (1.8-7.7) H 09/21/24 12:01 Lymph # (Auto) 0.6 10^3/uL (0.8-4.8) L 09/21/24 12:01 [place] # (Auto) 1.0 10^3/uL (0.2-0.9) H 09/21/24 12:01 Eos # (Auto) 0.2 10^3/uL (0.0-0.8) 09/21/24 12:01 Baso # (Auto) 0.0 10^3/uL (0.0-0.1) 09/21/24 12:01 Nucleated RBC % (auto) 0 % 09/21/24 12:01 Nucleated RBCs # 0.0 /100WBC 09/21/24 12:01 Sodium 136 mmol/L (136-145) 09/21/24 12:01 Potassium 4.6 mmol/L (3.5-5.1) 09/21/24 12:01 Chloride 92 mmol/L (98-107) L 09/21/24 12:01 Carbon Dioxide 27 mmol/L (22-29) 09/21/24 12:01 Anion Gap 21.6 (5-19) H 09/21/24 12:01 BUN 55 mg/dL (6-20) H 09/21/24 12:01 Creatinine 8.6 mg/dL (0.7-1.2) H* 09/21/24 12:01 GFR Calculation 6.6 mL/min (90-130) L 09/21/24 12:01 Glucose 91 mg/dL (65-115) 09/21/24 12:01 Calculated Osmolality 297 mOsm/kg (285-295) H 09/21/24 12:01 Calcium 8.8 mg/dL (8.5-10.5) 09/21/24 12:01 Phosphorus 4.1 mg/dL (2.5-4.5) 09/21/24 12:01 Total Bilirubin 0.4 mg/dL (0.15-1.2) 09/21/24 12:01 AST 10 U/L (0-40) 09/21/24 12:01 ALT 9 U/L (0-41) 09/21/24 12:01 Alkaline Phosphatase 238 U/L (40-130) H 09/21/24 12:01 Troponin T Baseline 76 ng/L (0-15) H 09/21/24 12:01 Total Protein 7.2 g/dL (6.6-8.7) 09/21/24 12:01 Albumin 3.7 g/dL (3.5-5.2) 09/21/24 12:01 Globulin 3.5 g/dL (1.3-4.6) 09/21/24 12:01 All radiology interpretation(s) finalized by discharge Discharge Plan Discharge Patient Disposition: Admitted As Inpatient Clinical Impression: Community acquired pneumonia, Chronic hypoxemic respiratory failure, ESRD on dialysis, COPD with acute exacerbation Condition: Stable Coding Level of Care Code ED Crack Off Person for Shilpa Phillips
[2024-09-21 12:06] LABS: Basophils % 0.3 %; Eosinophils # 0.2 10^3/uL (0.0-0.8); Eosinophils % 1.5 %; Hematocrit 38.2 % (37-53); Lymphocytes # 0.6 10^3/uL (0.8-4.8); Lymphocytes % 6.1 %; Mean Corpuscular HGB Conc 31.2 g/dL (30-55); Mean Corpuscular Hemoglobin 31.6 pg (27-33); Mean Corpuscular Volume 101.3 fl (82-101); Mean Platelet Volume 8.7 fL (7.4-10.4); Monocytes % 10.2 %; Neutrophils # 7.92 10^3/uL (1.8-7.7); Neutrophils % 80.9 %; Nucleated Red Blood Cells % 0 %; Platelet Count 251 10^3/cmm (157-399); Red Blood Count 3.77 10^6/uL (3.85-5.65); Red Cell Distribution Width 13.3 % (12.1-15.1)
--- OUTSIDE RECORDS SUMMARY | 2024-09-21 12:15 | XMS_ITS | Clinical Summary ---
Author Organization [facility] Address [address] [place]: Epic Prelude ADT [place] [address] Care Team Providers Care Software Validation Engineer Name Role Phone Ras Joy MD Primary Care Provider [phone] Allergies Active Allergy Reactions Criticality Noted Date Comments Lisinopril Swelling Low 08/20/2021 Penicillins Rash,Itching,Other (See Comments) Low 0 05/12/2018 Tramadol Itching Low 05/03/2019 Medications sucroferric oxyhydroxide (Velphoro) 500 mg Tablet, Chewable Take 1,500 mg by mouth 3 times daily. If he has a snack he will take 2-[address] Pillai Active vit B,Z-GN-piab-selen-v it D3-E (RenaPlex-D) 800 mcg-12.5 mg -2,000 unit Tablet Take 1 Tablet by mouth daily. On treatment day he takes it after his dialysis (Thursday, Thursday and Thursday) Active portable oxygen Face to Face completed within 30 days: Length of Need: months By: Nasal Cannula Continuously at 3-4L/min. Active pantoprazole (PROTONIX) 40 mg Tablet, Delayed Release (E.C.) Take 40 mg by mouth 2 times daily. 05/03/19 20 Active calcitrioL 0.5 mcg capsule Take 1 Capsule by mouth daily. Active isosorbide mononitrate (IMDUR) 120 mg Extended Release 24 hour tabletIndications:H ypertensive heart and renal disease 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 ([facility]) Take 1 Tablet (120 mg) by mouth daily in the morning. 90 Tablet 1 03/04/20 23 Active ondansetron (ZOFRAN) 4 mg TabletIndications:E SRD (end stage renal disease) ([facility]) TAKE 1 TABLET BY MOUTH EVERY 4-6 HOURS NEEDED FOR NAUSEA 60 Tablet 03/04/20 Active Additional Information Patient not taking.Reported on 03/11/2024 ferrous sulfate 325 mg (65 mg iron) tabletIndications:E SRD (end stage renal disease) ([facility]) Take 65 mg by mouth daily with breakfast. Active ipratropium-albuter oL (DUONEB) 0.5 mg-3 mg(2.5 mg base)/3 mL Solution for NebulizationIndicat ions:Panlobular emphysema ([facility]) Take 3 mL by inhalation every 6 hours as needed for Shortness of Breath, Wheezing or Respiration. 90 mL 03/04/20 Active oxygen home deliveryIndications :Chronic respiratory failure with hypoxia ([facility]),Panlobula r emphysema ([facility]) Home Oxygen Concentrator yes at 3 L/M Rest, 4 L/M Activity, 4 L/M Sleep, Delivery Device: Nasal Cannula Portability: yes, 3 L/M Rest, 4 L/M Activity, May provide device best for patient needs(E system,home fill, conserving device) Length of Need: 99 months 1 Each 03/04/20 23 Active famotidine (PEPCID) 40 mg tabletIndications:G astroesophageal reflux disease without esophagitis take 1 tablet by mouth 2 times daily 200 Tablet 1 09/04/19 24 Active atorvastatin (LIPITOR) 40 mg tabletIndications:C hronic diastolic heart failure ([facility]),History of hemorrhagic cerebrovascular accident (CVA) without residual deficits take 1 tablet by mouth every day 100 Tablet 1 09/15/19 24 Active citalopram (CeleXA) 20 mg tablet Take 1 Tablet by mouth daily. 11/26/19 24 Active albuterol sulfate HFA 90 mcg/actuation aerosol inhaler Take 4 Puffs by inhalation. 11/25/19 24 Active selexipag (UPTRAVI) 200 mcg TabletIndications:P anlobular emphysema (CMS/HCC) Take 1 Tablet (200 mcg) by mouth 2 times daily. 60 Tablet 03/11/20 24 Active Additional Information Patient not taking.Reported on 04/22/2024 apixaban (Eliquis) 2.5 mg tabletIndications:L ongstanding persistent atrial fibrillation (CMS/HCC) Take 1 Tablet (2.5 mg) by mouth 2 times daily. 60 Tablet 3 04/22/19 25 Active carvediloL (COREG) 6.25 mg tabletIndications:P rimary hypertension Take 1 Tablet (6.25 mg) by mouth 2 times daily with meals. 60 Tablet 11 04/22/19 25 026 Active hydrALAZINE (APRESOLINE) 100 mg Tablet tabletIndications:H ypertensive heart and renal disease 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 (CMS/HCC) Take 1 Tablet (100 mg) by mouth 3 times daily. 300 Tablet 1 04/22/19 25 Active furosemide (LASIX) 80 mg tabletIndications:C hronic diastolic heart failure (CMS/HCC) Take 1 Tablet (80 mg) by mouth 2 times daily. 90 Tablet 1 04/22/19 25 Active traZODone (DESYREL) 150 mg tabletIndications:R ecurrent major depressive disorder, in partial remission Take 1 Tablet (150 mg) by mouth daily at bedtime. 100 Tablet 3 05/02/19 25 Active budesonide-formoter oL (SYMBICORT) 160-4.5 mcg/actuation HFA Aerosol InhalerIndications: Panlobular emphysema (CMS/HCC) Take 2 Puffs by inhalation 2 times daily. 10.2 Gram 11 08/04/19 25 Active Active Problems Problem Noted Date Diagnosed Date Acute confusional state 03/06/2024 Tricuspid valve regurgitation 12/09/2023 Recurrent major depressive disorder, in partial remission 08/04/2023 Rheumatic mitral stenosis 07/14/2023 Tobacco use 03/04/2023 Chronic respiratory failure with hypoxia 023 Dependence on renal dialysis 03/04/2023 Secondary hyperparathyroidism of renal origin History of hemorrhagic cereb rovascular accident (CVA) without residual deficits 03/04/2023 Gastroesophageal reflux disease without esophagi tis 03/04/2023 Hypertensive heart and renal disease 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 11/11/2022 Chronic diastolic heart failure 01/22/2021 Atrial fibrillation 11/27/2020 Closed patellar dislocation, left, initial encou nter 05/29/2020 Closed posterior dislocation of left shoulder ESRD (end stage renal disease) Overview (11/05/2021): started dialysis in 2019 Hyperlipidemia HTN (hypertension) Emphysema of lung Resolved Problems Problem Noted Date Diagnosed Date Resolved Date Angina pectoris 03/04/2023 12/09/2023 Recurrent major depressive d isorder, in partial remission 03/04/2023 10/09/2023 Encounters Date Type Department Care Team Description 09/16/[address] [facility] [address] [place] [address] Amanda Molina NP Hospital Follow Up 09/05/[address] [facility] [address] [place] [address] Ras Joy MD Hospital Follow Up 08/30/2024 External Device Data [facility] ABSTRACTION Provider, Abstract 08/30/2024 External Device Data [facility] ABSTRACTION Provider, Abstract 08/30/2024 External Device Data [facility] ABSTRACTION Provider, Abstract 08/29/[address] [facility] [address] [address] Ras Joy MD Ed Follow-up 08/28/2024 12:24 AM CDT - 08/28/2024 5:54 AM CDT Emergency [facility] Emergency Medicine [address] [address] Kb Gonzalez MD Dyspnea, unspecified type (Primary Dx) Discharge Disposition: Home or Self Care 08/28/2024 Travel 08/27/2024 - 08/27/2024 11:59 PM CDT Hospital Encounter [facility] [place] [address] [phone] Ambulance, [facility] Discharge Disposition: Home or Self Care 08/26/[address] [facility] [address] [place] [phone] Amanda Molina NP rescheduling appt 08/18/2024 External Device Data [facility] ABSTRACTION Provider, Abstract 08/03/[address] [facility] [address] [place] [address] Ras Joy MD Panlobular emphysema (CMS/HCC) 07/12/2024 External Device Data [facility] ABSTRACTION Provider, Abstract 07/12/2024 External Device Data [facility] ABSTRACTION Provider, Abstract 07/02/2024 - 07/02/2024 11:59 PM CDT Hospital Encounter [facility] [place] [address] [facility] [address] [place] [phone] Ambulance, [place] Discharge Disposition: Home or Self Care from Last 3 Months Immunizations Immunization Administration Dates Next Due INFLUENZA VACCINE QUADRIVALENT 6 MOS UP IM 01/29 Influenza Seasonal Unspecified Formulation IM ,12/28/2020 PNEUMOVAX (PPSV23) pneumococ atul polysaccharide 23-valent Vaccine 12/28/2021 Social History Tobacco Use Types Packs/Day Years Used Date Smoking Tobacco: Former Cigarettes 1 25 Passive Smoke Exposure: Current Smokeless Tobacco: Never Tobacco Cessation:Counseling Given: Not Answered Comments:less turner 1 ppd 10.21.21 Alcohol Use Standard Drinks/Week Comments Not Currently 0 (1 standard drink = 0.6 oz pur e alcohol) Financial Resource Strain Answer Date R ecorded How hard is it for you to pa y for the very basics like food, housing, medical care, and heating? Very hard 02/22/2022 Food Insecurity Answer Date Recorded In the past 12 months, have you worried that your food would run out before you had money to buy more? Often true 2021 In the past 12 months, did y ou run out of food and didn't have money to buy more? Sometimes true 02/22/2022 Transportation Needs Answer Date Record ed In the past 12 months, has l ack of transportation kept you from medical appointments or from getting medications? Yes 02/22/2022 Lack of Transportation (Non-Medical) Not on file 02/22/2022 Feeling Safe Answer Date Recorded Are you in a relationship wi th someone who hurts you emotionally and/or physically? No 08/28/2024 Sex and Gender Information Value Date Recorded Sex Assigned at Not on file Legal Sex Male 1:24 PM [employer] Gender Identity Not on file Sexual Orientation Not on file Last Filed Vital Signs Vital Sign Reading Time Taken Comments Blood Pressure 166/102 08/28/2024 3:00 AM CDT Pulse 97 08/28/2024 3:15 AM CDT Temperature 36.8 C (98.3 F) 08/28/2024 12:27 AM CDT Respiratory Rate 27 08/28/2024 3:15 AM CDT Oxygen Saturation 100% 08/28/2024 3:15 AM CDT Inhaled Oxygen Concentration - - Weight 88.5 kg (195 lb) 08/28/2024 12:27 AM CDT Height 177.8 cm (5' 10 ) 08/28/2024 12:27 AM CDT Body Mass Index 27.98 08/28/2024 12:27 AM CDT Plan of Treatment Upcoming Encounters Date Type Department Care Team (Late st Contact Info) Description 12/21/2024 1:40 PM CDT Office Visit [facility] [address] [place] [phone] Ras Joy MD [address] [facility] [address] [place] [phone] Health Maintenance Due Date Last Done Comments FIT/ DNA Q 3 YEARS (AUTO ORDER) 1991 FIT/FOBT Q 1 YEAR (AUTO ORDER) 1991 FLEX SIG/CT COLONOGRAPHY Q 5 YEARS (AUTO ORDER) 1991 DTAP/TDAP/TD VACCINES (1 - Tdap) 1992 HEPATITIS B VACCINES (1 of 3 - Risk Dialysis 4-dose series) 1993 COLORECTAL CANCER SCREENING (AUTO ORDER) 2018 COLORECTAL SCREENING 2018 Colorectal Cancer Screening (AUTO ORDER) 2018 Colorectal Cancer Screening 2018 FIT-DNA Q 3 years 2018 FIT/FOBT Q 1 year 2018 Flex Sig/CT Colonography Q 5 years 2018 Pre-Diabetes and Diabetes Screening 01/10/2022 01/10/2019, 06/01/2017 ZOSTER VACCINE (1 of 2) 2023 Medicare Ad[place]age ([place]) Preventative Visit/Annual Wellness Visit 03/30/2024 02/24/2022 Abdominal Aortic Aneurysm (A AA) Screening Completed 08/02/2023 INFLUENZA VACCINE Completed 12/09/2023, , 12/28/2021, Additional history exists Medical Devices Implanted Type Area Vp Product Management Device Identifier Shelf Expiration Date Model / Serial / Lot Catheter Catheter Chest Cath Dialysis Glidepath 14.5fr 27cm Std [id number] Implanted:Qty : 1 on 02/25/2021 by Raffi Mckinnon MD Catheter Left: Chest CR [employer] 06/27/2022 [id number] / / [id number] Procedures Procedure Name Priority Date/Time Associated Diagnosis Comments TROPONIN 2 HR, 5TH GEN Timed Study 08/28/2024 2:32 AM CDT EKG 12-LEAD Stat 08/28/2024 1:55 AM CDT XR CHEST PA OR AP 1 VW Stat 08/28/2024 1:15 AM CDT BRAIN NATRIURETIC PEPTIDE, BNP OR PROBNP Stat 08/28/2024 12:32 AM CDT D-DIMER Stat 08/28/2024 12:32 AM CDT TROPONIN BASELINE, 5TH GEN Stat 08/28/2024 12:32 AM CDT COMPREHENSIVE METABOLIC PANEL Stat 08/28/2024 12:32 AM CDT CBC WITH DIFFERENTIAL Stat 08/28/2024 12:32 AM CDT HEMOGLOBIN A1C Routine 01/10/2019 9:33 PM CDT from Last 3 Months or Most Recently Relevant to Health Maintenance Results * (ABNORMAL) TROPONIN 2 HR, 5TH GEN (08/28/2024 2:32 AM CDT) TROPONIN T, 2 HR 5TH GEN 69(H) <=15 ng/L 08/28/2024 3:00 AM CDT [facility] DELTA 2HR TROPONIN T -2 See Interp. 08/28/2024 3:00 AM CDT [facility] Blood Venipuncture / Unknown 08/28/2024 2:32 AM CDT 08/28/2024 2:43 AM CDT Narrative [facility] - 08/28/2024 3:00 AM CDT Troponin elevated. Delta not changing. us Kb Gonzalez MD CHEMISTRY ORDERABLES Final Result [facility] CLIA # [id number] [address] [place] [address] * EKG 12 lead (08/28/2024 1:55 AM CDT) Narrative Kb Gonzalez MD - 08/28/2024 1:55 AM CDT Kb Gonzalez MD 08/28/2024 3:24 AM EKG 12 lead Date/Time: 08/28/2024 1:55 AM Performed by: Kb Gonzalez MD Authorized by: Kb Gonzalez MD ECG interpreted by ED Physician in the absence of a meat stock clerk: yes Rate: ECG rate assessment: age appropriate Rhythm: Rhythm Origin: atrial Rhythm morphology: fibrillation Ectopy: Ectopy origin: PVCs [place]: QRS axis: Right Hypertrophy: LVH Comments: EKG shows atrial fibrillation with PVCs no evidence of ischemia or infarct right right-sided deviation us Kb Gonzalez MD ECG ORDERABLES Final Result * XR CHEST PA OR AP 1 VW (08/28/2024 1:15 AM CDT) Anatomical Region Laterality Modality Chest Computed Radiogr aphy 08/28/2024 1:10 AM CDT Impressions 08/28/2024 7:22 AM CDT IMPRESSION: No acute pulmonary process. Narrative 08/28/2024 7:22 AM CDT Exam: XR CHEST PA OR AP 1 VW Date/Time of Exam: 08/28/2024 1:15 AM Reason For Exam: COPD. Diagnosis: See Reason for Exam. Comparison: 02/04/2024. Findings: A dialysis catheter remains in place terminating in the distribution of the cavoatrial junction. The cardiac silhouette is enlarged. There is a mild degree of patchy linear scar versus atelectasis without focal consolidation. There is no appreciable pleural fluid or pneumothorax. No acute bony pathology is appreciated. Procedure Note Endy Cobian, DO - 08/28/2024 Exam: XR CHEST PA OR AP 1 VW Date/Time of Exam: 08/28/2024 1:15 AM Reason For Exam: COPD. Diagnosis: See Reason for Exam. Comparison: 02/04/2024. Findings: A dialysis catheter remains in place terminating in the distribution of the cavoatrial junction. The cardiac silhouette is enlarged. There is a mild degree of patchy linear scar versus atelectasis without focal consolidation. There is no appreciable pleural fluid or pneumothorax. No acute bony pathology is appreciated. IMPRESSION: No acute pulmonary process. us Kb Gonzalez MD DIAGNOSTIC IMAGING OR DERABLES Final Result * (ABNORMAL) TROPONIN BASELINE, 5TH GEN (08/28/2024 12:32 AM CDT) TROPONIN T, BASELINE 5TH GEN 71(H) <=15 ng/L 08/28/2024 1:00 AM CDT [facility] Blood BLOOD SPECIMEN / Unknown Collection / Unknown 08/28/2024 12:32 AM CDT 08/28/2024 12:42 AM CDT Narrative [facility] - 08/28/2024 1:00 AM CDT Troponin elevated. us Kb Gonzalez MD CHEMISTRY ORDERABLES Final Result [facility] CLIA # [id number] [address] [place] [address] * (ABNORMAL) CBC WITH DIFFERENTIAL (08/28/2024 12:32 AM T) [facility] WBC 7.1 4.2 - 9.1 K/uL 08/28/2024 12:45 AM [facility] RBC 3.82(L) 4.63 - 6.08 M/uL 08/28/2024 12:45 AM [facility] HEMOGLOBIN 12.4(L) 13.7 - 17.5 g/dL 08/28/2024 12:45 AM [facility] HEMATOCRIT 38.5(L) 40.1 - 51.0 % 08/28/2024 12:45 AM [facility] MCV 100.8(H) 79.0 - 92.2 fL 08/28/2024 12:45 AM [facility] MCH 32.5(H) 25.7 - 32.2 pg 08/28/2024 12:45 AM [facility] MCHC 32.2(L) 32.3 - 36.5 g/dL 08/28/2024 12:45 AM [facility] RDW 14.2 11.0 - 14.5 % 08/28/2024 12:45 AM [facility] RDW-STDEV 52.0 36.9 - 56.9 fL 08/28/2024 12:45 AM [facility] PLATELETS 239 130 - 400 K/uL 08/28/2024 12:45 AM [facility] MPV 9.7(L) 10.0 - 14.8 fL 08/28/2024 12:45 AM [facility] NEUTROPHILS 64 34 - 68 % 08/28/2024 12:45 AM [facility] LYMPHOCYTES 16(L) 22 - 53 % 08/28/2024 12:45 AM [facility] MONOCYTES 12 5 - 12 % 08/28/2024 12:45 AM [facility] EOSINOPHILS 7 1 - 7 % 08/28/2024 12:45 AM T [facility] BASOPHILS 1 0 - 1 % 08/28/2024 12:45 AM T [facility] IMMATURE GRANULOCYTES 0 % 08/28/2024 12:45 AM [facility] NEUTROPHIL ABSOLUTE 4.57 1.78 - 5.38 K/uL 08/28/2024 12:45 AM [facility] LYMPHOCYTE ABSOLUTE 1.15(L) 1.20 - 3.40 K/uL 08/28/2024 12:45 AM T [facility] MONOCYTE ABSOLUTE 0.84(H) 0.30 - 0.82 K/uL 08/28/2024 12:45 AM [facility] EOSINOPHIL ABSOLUTE 0.46 0.04 - 0.54 K/uL 08/28/2024 12:45 AM [facility] BASOPHILS ABSOLUTE 0.07 0.01 - 0.08 K/uL 08/28/2024 12:45 AM [facility] IMMATURE GRANULOCYTES ABSOLUTE 0.01 K/uL 08/28/2024 12:45 AM [facility] Blood BLOOD SPECIMEN / Unknown Collection / Unknown 08/28/2024 12:32 AM CDT 08/28/2024 12:42 AM CDT us Kb Gonzalez MD HEMATOLOGY ORDERABLES Final [id number] [address] [place] [id number] * (ABNORMAL) D-DIMER (08/28/2024 12:32 AM CDT) D-DIMER QUANT 1.64(H) <0.50 ug/mL FEU 08/28/2024 1:00 AM T [facility] Blood BLOOD SPECIMEN / Unknown Collection / Unknown 08/28/2024 12:32 AM CDT 08/28/2024 12:42 AM CDT Narrative [facility] - 08/28/2024 1:00 AM CDT D-Dimer assay cutoff value for exclusion of DVT and/or PE is <0.50 ug/mL FEU. As D-Dimer levels increase naturally with age, age stratification for patients over 50 is potentially more appropriate in determining whether a patient should undergo further evaluation for DVT and/or PE than a general cutoff of 0.50 ug/mL FEU. Clinical consideration is recommended. Age Stratified Cutoff Values: 50-60 years: 0.50-0.60 ug/mL FEU 61-70 years: 0.61-0.70 ug/mL FEU 71-80 years: 0.71-0.80 ug/mL FEU us Kb Gonzalez MD HEMATOLOGY ORDERABLES Final Result [facility] CLIA # [id number] [address] [place] [address] * (ABNORMAL) BRAIN NATRIURETIC PEPTIDE, BNP OR PROBNP (08/28/2024 12:32 AM CDT) [facility] PROBNP, N TERMINAL 48,180(H) 0 - 125 pg/mL 08/28/2024 1:16 AM CDT [facility] Comment: INTERPRETIVE COMMENT based on diagnosis: Diagnostic NT pro-BNP cutoffs for Heart Failure in the absence of renal failure is suggested for the following ranges <75 years: <125 pg/mL >=75 years: <450 pg/mL Exclusionary rule out cut-point for Acute Decompensated Heart Failure(ADHF) All ages: <300 pg/mL Diagnostic NT pro-BNP cutoffs for Acute Decompensated Heart Failure(ADHF) in the absence of renal failure is suggested for the following ages <50 years: > 450 pg/mL 50-75 years: > 900 pg/mL >75 years: >1800 pg/mL Blood BLOOD SPECIMEN / Unknown Collection / Unknown 08/28/2024 12:32 AM CDT 08/28/2024 12:51 AM CDT us Kb Gonzalez MD CHEMISTRY ORDERABLES Final Result [facility] CLIA # [id number] [address] [place] [address] [id number] * (ABNORMAL) COMPREHENSIVE METABOLIC PANEL (08/28/2024 12:32 AM [facility]) SODIUM 139 136 - 145 mmol/L 08/28/2024 1:00 AM [facility] POTASSIUM 4.8 3.5 - 5.1 mmol/L 08/28/2024 1:00 AM [facility] CHLORIDE 97(L) 98 - 107 mmol/L 08/28/2024 1:00 AM [facility] CO2 27 22 - 29 mmol/L 08/28/2024 1:00 AM [facility] CALCIUM 9.1 8.6 - 10.0 mg/dL 08/28/2024 1:00 AM [facility] BUN 48(H) 6 - 20 mg/dL 08/28/2024 1:00 AM [facility] CREATININE 7.55(H) 0.67 - 1.17 mg/dL 08/28/2024 1:00 AM [facility] GLUCOSE 71(L) 74 - 99 mg/dL 08/28/2024 1:00 AM [facility] TOTAL PROTEIN 7.2 6.6 - 8.7 g/dL 08/28/2024 1:00 AM [facility] ALBUMIN 4.0 3.5 - 5.2 g/dL 08/28/2024 1:00 AM [facility] BILIRUBIN TOTAL 0.4 0.0 - 1.2 mg/dL 08/28/2024 1:00 AM [facility] ALKALINE PHOSPHATASE 214(H) 40 - 129 U/L 08/28/2024 1:00 AM [facility] AST 19 0 - 50 U/L 08/28/2024 1:00 AM [facility] ALT 12 0 - 50 U/L 08/28/2024 1:00 AM [facility] GFR 8(L) >=60 mL/min/1.7 3 sq meter 08/28/2024 1:00 AM CDT [facility] Comment:eGFR calculated with 2020 CKD-EPI equation. Vegetarian diet, extremely high or low muscle mass, and may affect results. Cystatin C with Glomerular Filtration Rate is a suitable alternative for these patients. ANION GAP 15 5 - 20 mmol/L 08/28/2024 1:00 AM CDT [facility] Blood BLOOD SPECIMEN / Unknown Collection / Unknown 08/28/2024 12:32 AM CDT 08/28/2024 12:42 AM CDT us Kb Gonzalez MD CHEMISTRY ORDERABLES Final Result Performing Organization Address [facility] Co de Phone Number [facility] CLIA # [id number] [address] [place] [address] * HEMOGLOBIN A1C (01/10/2019 9:33 PM CDT) HEMOGLOBIN A1C 5.4 <=5.6 % 01/11/2019 12:59 AM CDT [facility] EST. AVG GLUCOSE, A1C 108 mg/dL 01/11/2019 12:59 AM CDT [facility] Blood Collection / Unknown 01/10/2019 9:33 PM CDT 01/11/2019 12:05 AM CDT Narrative [facility] - 01/11/2019 12:59 AM CDT HGB A1C INTERPRETATION NORMAL: <5.7% PRE-DIABETES: 5.7 - 6.4% DIABETES: 6.5% OR GREATER us Ras Joy MD CHEMISTRY ORDERABLES Nancy l Result Performing Organization Address City/[facility]/ZIP Co de Phone Number [facility] CLIA # [id number] [address] [place] [address] [facility] CLIA # [id number] [address] [place] [id number] from Last 3 Months or Most Recently Relevant to Health Maintenance Insurance [facility] DUAL COMPLETE PPO [facility] [id number] Advance Directives For more information, please contact: [phone] * NO CPR (In Event of Cardiopulmonary Arrest) (Latest Code Status on File) Date Activated Date Inactivated Comments 12/09/2023 12:43 PM 01/14/2024 3:03 PM Question Answer Comments Mechanical Ventilation (for respiratory distress) - Invasive (i.e. intubation): No Mechanical Ventilation (for respiratory distress) - Non-Invasive (i.e. BiPAP, CPAP): Yes Care Teams Software Validation Engineer Relationship Specialty Start Date End Date Ras Joy MD [address] [address] PCP - General Family Practice 03/04/23
--- OUTSIDE RECORDS SUMMARY | 2024-09-21 12:15 | XMS_ITS | Encounter Summary ---
Author Organization [facility] Address [address] [place] [address] Care Team Providers Care Press Clipper Name Role Phone Ras Joy MD Primary Care Provider [phone] Reason for Visit * Reason Comments Hospital Follow Up Encounter Details Date Type Department Care Team (Late st Contact Info) Description 09/16/2024 Telephone [facility] [address] [place] [address] Amanda Molina NP [address] [place] [address] Hospital Follow Up Social History Tobacco Use Types Packs/Day Years Used Date Smoking Tobacco: Former Cigarettes 1 25 Passive Smoke Exposure: Current Smokeless Tobacco: Never Comments:less turner 1 ppd 10.2 1.21 Alcohol Use Standard Drinks/Week Comments Not Currently [...] on file 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 Topic: Reschedule/Cancel Appointment/Late Arrival >> Sep 16, 2024 9:03 AM Cleopatra Hall wrote: Caller is requesting to reschedule/cancel a hospital follow up. Caller Name: Asuncion, significant other, on [facility] Callback Number: Telephone Information: Call Notes: patient was taken to hospital in [place] this morning. Is patient requesting to schedule? No documented in this encounter Plan of Treatment Upcoming Encounters Date Type Department Care Team (Late st Contact Info) Description 12/21/2024 1:40 PM CDT Office Visit [address] [address] Ras Joy MD [address] [address] documented as of this encounter Visit Diagnoses Not on filedocumented in this encounter Care Teams Press Clipper Relationship Specialty Start Date End Date Ras Joy MD [address] [address] PCP - General Family Practice 03/04/23 documented as of this encounter
[2024-09-21 12:33] LABS: Troponin(5th) Baseline 76 ng/L (0-15)
[2024-09-21 12:58] LABS: Alanine Aminotransferase 9 U/L (0-41); Albumin Level 3.7 g/dL (3.5-5.2); Alkaline Phosphatase 238 U/L (40-130); Anion Gap 21.6 (5-19); Aspartate Amino Transferase 10 U/L (0-40); Blood Urea Nitrogen 55 mg/dL (6-20); Calcium 8.8 mg/dL (8.5-10.5); Carbon Dioxide 27 mmol/L (22-29); Chloride 92 mmol/L (98-107); Globulin 3.5 g/dL (1.3-4.6); Glomerular Filtration Rate 6.6 mL/min (90-130); Glucose 91 mg/dL (65-115); Osmolality Calculated 297 mOsm/kg (285-295); Phosphorus 4.1 mg/dL (2.5-4.5); Potassium 4.6 mmol/L (3.5-5.1); Sodium 136 mmol/L (136-145); Total Bilirubin 0.4 mg/dL (0.15-1.2); Total Protein 7.2 g/dL (6.6-8.7)
[2024-09-21] MEDS: cefTRIAXone 1,000 mg SDV 1000 MG IVP (13:35)
[2024-09-21] MEDS: methylPREDNISolone sod succ 125 mg/2 mL INJ IVP (13:39)
[2024-09-21] MEDS: AZITHROMYCIN ADD-Vantage 500 MG in 0.9% NaCl ADD-Vantage 250 ML 250 MG IV (13:39)
[2024-09-21 13:51] LABS: NT Pro B Type Natriuretic Pept > 70000 pg/mL (0-125)
--- NOTE | 2024-09-21 14:09 | PC.PHAR ---
Patient had a Methylprednisone dose pack and a cefdinir 300 Script called into [facility] on 09/16/24 and Patient did not pick it up. stated they couldn't afford it . Patient also had a Levofloxacin 250 and a Sodium Polystyrene sulfonate powder called in on 09/13/24 also not picked up . Couldn't afford it.
--- NOTE | 2024-09-21 14:14 | CT_ITS ---
WS: [id number] CT CHEST ANGIOGRAPHY WITH REFORMATS HISTORY: shortness of breath TECHNIQUE: Contiguous axial images are obtained through the chest during arterial injection of intravenous contrast. Images are reconstructed to evaluate the pulmonary arteries. MIP imaging also reviewed. All CT scans at [facility] use at least one of these dose optimization techniques: automated exposure control; mA and/or kV adjustment per patient size (includes targeted exams where dose is matched to clinical indication); or iterative reconstruction. CONTRAST: Omnipaque 350; 100 mL IV. DLP: 519.32 mGy.cm COMPARISON: 03/16/2024 Dilated pulmonary artery with good contrast opacification. No pulmonary embolism is evident. Moderate atherosclerosis aorta. No aortic dilatation or aneurysm. Moderate cardiomegaly. Tricuspid regurgitation. There are a few scattered pulmonary opacifications throughout both lungs. Greater distribution in the lower lung borrero. No significant pleural effusions. No dense areas of consolidation. Linear atelectasis at the RIGHT lung base. Numerous mediastinal and hilar lymph nodes. These nodes have increased in size and number since 03/16/2024. Largest lymph node subcarinal measuring 2.6 cm. Similar lymph nodes were noted on the prior CT also. No pericardial or pleural effusion. Advanced suprarenal aortic calcifications. Calcifications continue into the mesenteric arteries. Hepatic steatosis. Cirrhotic liver. The entire spleen is not included but does appear to be enlarged. No adrenal mass. Superior poles of each kidney are atrophy and lobulated. Patient has known renal failure. Mild increase in thoracic kyphosis. New scattered lytic changes within the thoracic vertebral bodies. These may be Schmorl's nodes due to their position along the endplates. CT/CT angio chest PE protcl [id number] IMPRESSION: 1. No pulmonary embolism. 2. Pulmonary hypertension. 3. Moderate atherosclerosis aorta. 4. New scattered irregular subsolid opacifications throughout both lungs. Like ly infectious or inflammatory. Recommend follow-up to resolution. 5. New lytic lesions within the thoracic spine since 03/16/2024. Recommend fol low-up MRI thoracic spine with and without contrast to exclude metastatic disea se. 6. Numerous mediastinal and hilar lymph nodes. This may be reactive adenopathy but neoplastic adenopathy cannot be excluded. 7. Cardiomegaly. 8. Cirrhotic liver.
--- NOTE | 2024-09-21 14:19 | PC.PHAR ---
[facility] is faxing a current med list .
[2024-09-21 14:30] LABS: Troponin 5 2HR 67.87 ng/L (0-15)
[2024-09-21 14:33] LABS: Troponin 5 2HR Delta -8.13 ABS# (0-10)
--- NOTE | 2024-09-21 14:33 | PM.HP ---
Providers/Chief Complaint Primary Care Provider: Ras Joy Chief Complaint: SOB History of Present Illness Leopoldo Schaefer is a 49 year old male with past medical history of end-stage renal disease on dialysis Thursday, history of atrial fibrillation, COPD, CHF, who presents [facility] for shortness of breath. Patient reports shortness of breath a lot over the last few days, he tells me whenever he gets hot and humid outside he becomes short of breath, he did go to dialysis today, he denies him pulling any fluid off of him, he is chronically on 6 L, he is on 6 L here, denies any nausea, no vomiting, no abdominal pain, no chest pain, does have a cough, is smoking Review of Systems Const: Denies: fever(s) or chills Card: Denies: chest pain Resp: Reports: dyspnea and non-productive cough Medications/Allergies Home Medications ?Medication ?Instructions ?Recorded ?Confirmed ?Last Taken ?Type atorvastatin 40 mg tablet 40 mg PO BEDTIME #30 tabs 05/16/22 05/19/24 05/18/24 Rx furosemide 80 mg tablet 80 mg PO BID 09/14/23 09/21/24 09/21/24 History carvedilol 6.25 mg tablet 6.25 mg PO BID 01/17/24 09/21/24 09/21/24 History trazodone 150 mg tablet 150 mg PO BEDTIME 01/17/24 09/21/24 09/20/24 20:00 History Allergies Allergy/AdvReac Type Severity Reaction Status Date / Time lisinopril Allergy swelling Verified 03/15/24 22:51 Penicillins Allergy ALGY-Hives Verified 03/15/24 22:51 tramadol Allergy ALGY-Hives Verified 03/15/24 22:51 PFSH Acute PFSH: Medical History (Updated 09/21/24 @ 13:23 by Cecy Anderson MD) Atrial fibrillation with RVR End stage kidney disease Uncontrolled hypertension Hypoglycemia Atrial fibrillation with RVR COPD exacerbation Pulmonary edema Non-compliance with renal dialysis End stage renal disease Anxiety and depression Obstructive sleep apnea Allergic dermatitis ESRD (end stage renal disease) Pleural effusion Dialysis patient Hypertensive emergency Atrial fibrillation/flutter Chest pain Elevated troponin Resistant hypertension Paroxysmal atrial fibrillation with RVR End stage chronic kidney disease Anemia Diastolic CHF Sebaceous cyst GERD (gastroesophageal reflux disease) Insomnia COPD (chronic obstructive pulmonary disease) Reports he is on 4 L of oxygen at home Hypoxia Anxiety and depression Lower respiratory tract infection Encounter to establish care Vitamin D deficiency Hypertension CRF (chronic renal failure) Surgical History S/P hemodialysis catheter insertion H/O hand surgery right hand with hardware H/O circumcision Presence of peritoneal dialysis catheter S/P dialysis catheter insertion (12/12/19) Removed on 04/04/2020 Family History Other Adopted Denies family history of Anesthesia complication Bleeding disorder Social History Smoking and tobacco/nicotine status: current every day tobacco/nicotine user (1ppd X26 years) cigarettes [ Other cigarette details: On and off quitting and restarting] Alcohol intake: never Substance/Drug Use: never Household members: significant other Marital status: Single Current occupational status: disabled Vitals/I&O/Wt Last Vital Signs Temp 98.2 F 09/21/24 11:49 Pulse 112 H 09/21/24 12:51 Resp 20 H 09/21/24 11:49 BP 123/89 09/21/24 12:51 Pulse Ox 91 09/21/24 12:51 O2 Del Method Nasal Cannula 09/21/24 11:49 O2 Flow Rate 6 09/21/24 11:49 Weight last 48 hrs Weight 83.915 kg Physical Exam Const: COMMON NORMALS: no acute distress and patient oriented x3 Resp: EFFORT & INSPECTION: Yes able to speak in complete sentences, Yes tachypneic and Yes Actively coughing OTHER: Nasal flaring, mild suprasternal retractions, with intercostal retractions, tachypnea, tachycardia Cardio: COMMON NORMALS: no JVD, regular rate, regular rhythm, S1 normal heart sound present and S2 normal heart sound present RATE: regular rate RHYTHM: regular rhythm HEART SOUNDS: S1 normal heart sound present and S2 normal heart sound present GI: COMMON NORMALS: Normal to inspection, nondistended, normoactive bowel sounds present, Soft to palpation and non-tender Extremity: COMMON NORMALS: no pedal edema Neuro: COMMON NORMALS: patient oriented x3, CN's II-XII intact bilaterally and moves all extremities Psych: COMMON NORMALS: mental status grossly normal Data 09/21/24 12:01 09/21/24 12:01 Micro: Microbiology 09/21/24 12:01 Blood Culture - Preliminary Blood SPECIMEN COLLECTED A&P Assessment and plan (1) ESRD on dialysis: (2) Acute hypoxic respiratory failure: (3) Community acquired pneumonia: (4) COPD with acute exacerbation: Plan Acute hypoxic respiratory failure - Multifactorial from COPD exacerbation - Pneumonia - With underlying diastolic CHF - End-stage renal disease on dialysis Plan - Monitor respiratory status closely - CT angiogram of the chest - Pro-Shay, CRP - Solu-Medrol 125 followed by 40 mg IV every 8 hours - DuoNeb - Budesonide - Rocephin - Azithromycin -History of atrial fibrillation, continue home Eliquis, switch to metoprolol -Telemetry monitoring -Serial EKGs, serial troponins, telemetry monitoring - Nephrology consulted, does not look fluid overloaded today had dialysis today plan on dialysis tomorrow - Continue Eliquis for DVT prophylaxis - Full code PDMP PDMP Reviewed: Not Reviewed Attestations Medical Necessity Statement*: Patient requires hospitalization, inpatient, greater than 2 midnights for acute hypoxic respiratory failure multifactorial from COPD, pneumonia Diagnoses ESRD on dialysis N18.6; Z99.2 Acute hypoxic respiratory failure J96.01 Community acquired pneumonia J18.9 COPD with acute exacerbation J44.1
[2024-09-21] MEDS: iohexol 350 mg/mL 500 mL Btl (per mL) IV (14:46)
[2024-09-21 14:49] LABS: Lactic Sepsis W/Reflex 0.6 mmol/L (0.5-2.2)
[2024-09-21 14:59] LABS: Procalcitonin 2.72 ng/mL (0-0.5); Thyroid Stimulating Hormone 1.89 uIU/mL (0.27-4.20)
[2024-09-21 15:11] LABS: C Reactive Protein 82.9 mg/L (0.0-4.9)
[2024-09-21 15:12] LABS: ABG PCO2 58.6 mmHg (35-45); ABG PH Result 7.27 (7.35-7.45); Arterial Blood Gas Hematocrit 39.1 % (42-52); Base Excess ABG -1.1 mmol/L (-2.0-2.0); Blood Gas Allen Test Pos; Blood Gas Operator Identificat glc; Blood Gas Sample Site Radial, left; Blood Gas Sample Type Arterial; HCO3 ABG 26.9 mmol/L (22-26); Oxygen Device NC; PO2 ABG 72.3 mmHg (80.0-100.0); PO2 FiO2 Ratio Arterial Blood 180
[2024-09-21] MEDS: ipratropium-albuterol 3 mL Neb INHALATION ×2 (15:34→19:29)
--- NOTE | 2024-09-21 16:13 | ECG_ITS ---
[facility] Date: 2024-09-21 Pat Name: Leopoldo Schaefer Department: Room: 105 Gender: Male Inside Outside Sales Representative: : 1975 Requested By: Cecy Stevens Order Number: [id number] Vaughn MD: Lane Lloyd M.D. Measurements Intervals [place] Rate: 107 P: 0 VA: 0 QRS: 62 QRSD: 99 T: 74 QT: 359 QTc: 479 Interpretive Statements ATRIAL FIBRILLATION WITH RAPID VENTRICULAR RESPONSE Compared to ECG 09/21/2024 14:17:29 ST (T wave) deviation no longer present Electronically Signed On 09-29-2024 09:45:[address] Lloyd M.D. [email or web address]
[2024-09-21 17:10] LABS: Estmated Average Glucose 85; Hemoglobin A1C 4.6 % (4.0-6.0)
--- NOTE | 2024-09-21 17:52 | ECG_ITS ---
[employer] Test Date: 2024-09-21 Pat Name: Leopoldo Schaefer Department: Room: Gender: Male Drop Count Associate: : 1975 Requested By: Cecy Stevens Order Number: [id number] Vaughn MD: Lane Lloyd M.D. Measurements Intervals [place] Rate: 115 P: 0 DE: 0 QRS: 72 QRSD: 110 T: 71 QT: 330 QTc: 457 Interpretive Statements ATRIAL FIBRILLATION WITH RAPID VENTRICULAR RESPONSE MINIMAL ST DEPRESSION [0.025+ mV ST DEPRESSION] Compared to ECG 09/21/2024 12:06:45 ST (T wave) deviation now present Electronically Signed On 09-29-2024 09:45:[address] Lloyd M.D. [id number]
[2024-09-21 18:01] LABS: ABG PCO2 60.8 mmHg (35-45); ABG PH Result 7.29 (7.35-7.45); Alveolar-Arterial Oxygen Gradi 16.6 mmHg (5-10); Arterial Blood Gas Hematocrit 35.9 % (42-52); Base Excess ABG 1.3 mmol/L (-2.0-2.0); Blood Gas Allen Test Pos; Blood Gas Sample Site Radial, right; Blood Gas Sample Type Arterial; Carboxyhemoglobin 1.4 %THgb (0.4-20.1); HCO3 ABG 29.1 mmol/L (22-26); HGB O2 Sat 93.9 % (95-100); Ionized Calcium Level - ABG 1.2 mmol/L (1.1-1.4); Methemoglobin 1.1 % (0.4-1.5); Oxygen Device BIPAP; Oxygen Saturation ABG 96.3; PO2 ABG 84.4 mmHg (80.0-100.0); PO2 FiO2 Ratio Arterial Blood 211; Total Hemoglobin 11.7 g/dL (14-18)
[2024-09-21 18:30] LABS: Troponin 5 6HR 68.33 ng/L (0-15); Troponin 5 6HR Delta -7.67 ng/L (0-12)
[2024-09-21] MEDS: budesonide 0.5 mg/2 mL Neb INHALATION (19:29)
[2024-09-21] MEDS: atorvastatin 40 mg Tablet PO (20:49)
[2024-09-21] MEDS: apixaban 5 mg Tablet PO (20:49)
[2024-09-21] MEDS: pantoprazole 40 mg SDV IVP (20:49)
[2024-09-21] MEDS: metoprolol tartrate 25 mg Tablet PO (20:49)
[2024-09-22] VITALS (12 sets, daily range): BP systolic 125–159; BP diastolic 81–107; PULSE 70–119; RESP 15–22; TEMP 36.6–37; O2SAT 92–99
[2024-09-22 03:40] LABS: Base Excess VBG -0.2 mmol/L (-3.0-3.0); Blood Gas Sample Site Not specified; Blood Gas Sample Type Venous; HCO3 VBG 28.3 mmol/L (24-28); Oxygen Device NC; PCO2 VBG 63.8 mmHg (41-51); PO2 VBG 40.7 mmHg (25-40); Venous Blood Gas Hematocrit 37.6 % (42-52); pH VBG 7.26 (7.32-7.42)
[2024-09-22 04:28] LABS: Basophils % 0.3 %; Hematocrit 38.3 % (37-53); Lymphocytes # 0.2 10^3/uL (0.8-4.8); Lymphocytes % 3.5 %; Mean Corpuscular HGB Conc 31.1 g/dL (30-55); Mean Corpuscular Hemoglobin 31.7 pg (27-33); Mean Corpuscular Volume 102.1 fl (82-101); Mean Platelet Volume 9.3 fL (7.4-10.4); Monocytes # 0.2 10^3/uL (0.2-0.9); Monocytes % 2.2 %; Nucleated Red Blood Cells % 0 %; Platelet Count 267 10^3/cmm (157-399); Red Blood Count 3.75 10^6/uL (3.85-5.65); Red Cell Distribution Width 13.2 % (12.1-15.1); White Blood Count 6.88 10^3/uL (3.29-11.43)
[2024-09-22 04:52] LABS: Alanine Aminotransferase 8 U/L (0-41); Albumin Level 3.2 g/dL (3.5-5.2); Alkaline Phosphatase 215 U/L (40-130); Aspartate Amino Transferase 9 U/L (0-40); Blood Urea Nitrogen 67 mg/dL (6-20); Calcium 8.9 mg/dL (8.5-10.5); Carbon Dioxide 27 mmol/L (22-29); Chloride 93 mmol/L (98-107); Globulin 4.1 g/dL (1.3-4.6); Glomerular Filtration Rate 5.9 mL/min (90-130); Glucose 136 mg/dL (65-115); Magnesium 2.5 mg/dL (1.7-2.3); Osmolality Calculated 303 mOsm/kg (285-295); Phosphorus 5.1 mg/dL (2.5-4.5); Sodium 136 mmol/L (136-145); Total Bilirubin 0.3 mg/dL (0.15-1.2); Total Protein 7.3 g/dL (6.6-8.7)
[2024-09-22 04:53] LABS: Anion Gap 21.3 (5-19); Potassium 5.3 mmol/L (3.5-5.1)
[2024-09-22] MEDS: methylPREDNISolone sod succ 40 mg/mL INJ IVP ×2 (05:51→19:59)
[2024-09-22 06:02] LABS: NT Pro B Type Natriuretic Pept > 70000 pg/mL (0-125)
[2024-09-22] MEDS: ipratropium-albuterol 3 mL Neb INHALATION ×3 (07:36→21:42)
[2024-09-22] MEDS: budesonide 0.5 mg/2 mL Neb INHALATION ×2 (07:36→21:42)
[2024-09-22] MEDS: metoprolol tartrate 25 mg Tablet PO ×2 (08:19→20:00)
--- NOTE | 2024-09-22 08:26 | PC.NURSE ---
Patient refusing to take eliquis this morning stating, I have not taken that in a while. The doctor told me to stop taking it. Informed Dr Stack of patient's refusal.
--- NOTE | 2024-09-22 09:29 | PM.CONSULT ---
Providers/Reason For Consult Consulting Physician/Specialty*: deep goodwin md / telenephrology Reason for Consult*: ESRD care Requesting Physician: Dr Kanchan Stack Attending Physician: Nish Stack MD Primary Care Provider: Ras Joy History of Present Illness History of Present Illness Leopoldo Schaefer is a 49 year old male history of ESRD on dialysis Thursday and Thursday, A-fib, COPD, heart failure preserved EF. Patient was admitted to the hospital with volume overload and severe shortness of breath yesterday. Patient has secondary hyperparathyroidism The patient yesterday was treated with steroids antibiotics CT scan and we were asked to see the patient for extra dialysis today. Review of Systems Narrative: Short of breath palpitations nausea weakness dyspnea on exertion cough denies fevers denies chills denies diarrhea. Good appetite. Positive headaches poor vision. Leg pains and swellings. Rest review of systems within normal limits Medications/Allergies Home Medications ?Medication ?Instructions ?Recorded ?Confirmed ?Last Taken ?Type furosemide 80 mg tablet 80 mg PO BID 09/14/23 09/21/24 09/21/24 History carvedilol 6.25 mg tablet 6.25 mg PO BID 01/17/24 09/21/24 09/21/24 History trazodone 150 mg tablet 150 mg PO BEDTIME 01/17/24 09/21/24 09/20/24 20:00 History cefdinir 300 mg capsule 200 mg PO BID 09/21/24 09/21/24 Unknown History levofloxacin 250 mg tablet 250 mg PO DAILY 09/21/24 09/21/24 Unknown History methylprednisolone 4 mg tablets in See Rx Instructions .Route .COMPLEX 09/21/24 09/21/24 Unknown History a dose pack sodium polystyrene sulfonate 30 g PO Q7D 09/21/24 09/21/24 Unknown History Allergies Allergy/AdvReac Type Severity Reaction Status Date / Time lisinopril Allergy swelling Verified 03/15/24 22:51 Penicillins Allergy ALGY-Hives Verified 03/15/24 22:51 tramadol Allergy ALGY-Hives Verified 03/15/24 22:51 Current Medications Generic Name Dose Route Start Last Admin Trade Name Freq PRN Reason Stop Dose Admin Albuterol/Ipratropium 3 ml 09/21/24 16:00 09/22/24 07:36 Ipratropium-Albuterol 3 Ml Neb INHALATION 3 ml QID.RESPIRATORY FRANCISCO Administration Apixaban 5 mg 09/21/24 21:00 09/22/24 08:24 Apixaban 5 Mg Tablet PO Not Given BID@0900,2100 FRANCISCO Atorvastatin Calcium 40 mg 09/21/24 21:00 09/21/24 20:49 Atorvastatin 40 Mg Tablet PO 40 mg BEDTIME FRANCISCO Administration Budesonide 0.5 mg 09/21/24 20:00 09/22/24 07:36 Budesonide 0.5 Mg/2 Ml Neb INHALATION 0.5 mg BID.RESPIRATORY FRANCISCO Administration Methylprednisolone Sodium Succinate 40 mg 09/22/24 04:00 09/22/24 05:51 Methylprednisolone Sod Succ 40 Mg/Ml Inj IVP 40 mg Q8H FRANCISCO Administration Metoprolol Tartrate 25 mg 09/21/24 21:00 09/22/24 08:19 Metoprolol Tartrate 25 Mg Tablet PO 25 mg BID@0900,2100 FRANCISCO Administration Pantoprazole Sodium 40 mg 09/21/24 14:15 09/21/24 20:49 Pantoprazole 40 Mg Sdv IVP 40 mg Q24H FRANCISCO Administration Trazodone HCl 150 mg 09/21/24 21:00 09/21/24 21:02 Trazodone 150 Mg Tablet PO Not Given BEDTIME FRANCISCO PFSH Acute PFSH: Medical History (Updated 09/21/24 @ 13:23 by Cecy Anderson MD) Atrial fibrillation with RVR End stage kidney disease Uncontrolled hypertension Hypoglycemia Atrial fibrillation with RVR COPD exacerbation Pulmonary edema Non-compliance with renal dialysis End stage renal disease Anxiety and depression Obstructive sleep apnea Allergic dermatitis ESRD (end stage renal disease) Pleural effusion Dialysis patient Hypertensive emergency Atrial fibrillation/flutter Chest pain Elevated troponin Resistant hypertension Paroxysmal atrial fibrillation with RVR End stage chronic kidney disease Anemia Diastolic CHF Sebaceous cyst GERD (gastroesophageal reflux disease) Insomnia COPD (chronic obstructive pulmonary disease) Reports he is on 4 L of oxygen at home Hypoxia Anxiety and depression Lower respiratory tract infection Encounter to establish care Vitamin D deficiency Hypertension CRF (chronic renal failure) Surgical History S/P hemodialysis catheter insertion H/O hand surgery right hand with hardware H/O circumcision Presence of peritoneal dialysis catheter S/P dialysis catheter insertion (12/12/19) Removed on 04/04/2020 Family History Other Adopted Denies family history of Anesthesia complication Bleeding disorder Social History Smoking and tobacco/nicotine status: current every day tobacco/nicotine user (1ppd X26 years) cigarettes [ Other cigarette details: On and off quitting and restarting] Alcohol intake: never Substance/Drug Use: never Household members: significant other Marital status: Single Current occupational status: disabled Vitals/I&O/Wt Last Vital Signs Temp 98 F 09/22/24 05:02 Pulse 70 09/22/24 07:41 Resp 18 09/22/24 07:41 BP 150/107 09/22/24 05:02 Pulse Ox 95 09/22/24 07:41 O2 Del Method Nasal Cannula 09/22/24 07:41 O2 Flow Rate 5 09/22/24 07:41 FiO2 35 09/22/24 04:00 09/21/24 09/22/24 09/22/24 22:59 06:59 14:59 Intake Total 250 / 250 240 / 240 Balance 250 / 250 240 / 240 Weight last 48 hrs Weight 93.5 kg Weight 83.915 kg Physical Exam Narrative: Obese man in bed vital signs noted, he is using nasal cannula O2. HEENT normocephalic atraumatic neck is supple Anterior chest wall permacath lungs have crackles bilaterally heart positive S1-S2 Abdomen is soft positive bowel Extremities no edema Neuro awake alert oriented x 3 Data 09/22/24 03:26 09/22/24 03:26 Micro: Microbiology 09/21/24 14:33 Blood Culture - Preliminary Blood SPECIMEN COLLECTED 09/21/24 12:01 Blood Culture - Preliminary Blood SPECIMEN COLLECTED A&P Assessment and plan (1) ESRD on dialysis: 49-year-old man history of COPD history of heart failure I am not able to see the echo I see above creatinine is preserved and reduced EF, atrial fibrillation hypertension. Patient presented yesterday with volume overload. Patient is short of breath and was given steroids antibiotics. Patient had dialysis yesterday we will repeat dialysis today to see if extra dialysis helps with his breathing. Will monitor blood pressure with dialysis. hyercapneic acidoss to use BiPAP anemia- his Hemoglobin is okay at 11.9 acceptable for ESRD patient phosphorus is improving normal tsh 1.89 meds reviewed The patient was seen and examined using audiovisual appointment with the aid of a nurse with a telehealth visit. The patient consented to telehealth and to dialysis. We will follow the patient along with you. Thank you for allowing us to participate in the care of this patient Plan Hemodialysis and monitoring blood pressure. PDMP PDMP Reviewed: Not Reviewed Consult Attestations Medical Necessity Statement: Severe shortness of breath hypercapnic respiratory acidosis, ESRD, heart failure Time Spent in Patient Care: Greater than 35 minutes (>than 50% of time spent in counselling and/or direct pt care on unit). Coding Level of Care Code Acute Code for Chg Fwd Diagnoses ESRD on dialysis N18.6; Z99.2
--- NOTE | 2024-09-22 11:57 | PC.NURSE ---
Patient currently off the floor in dialysis
[2024-09-22 13:29] LABS: Staphylococcus epidermidis Detected (NOT DETECT); mecA Detected (NOT DETECT)
--- NOTE | 2024-09-22 13:42 | P.PN_ITS ---
Subjective 2 Subjective: Patient was seen this morning, he reports his shortness of breath is improving, he is down to 5 L, denies any fevers, no chills, no cough, no nausea, no vomiting Vitals/I&O/Wt Last Vital Signs Temp 98.2 F 09/22/24 11:13 Pulse 111 H 09/22/24 11:13 Resp 22 H 09/22/24 11:13 BP 159/101 09/22/24 11:13 Pulse Ox 98 09/22/24 11:13 O2 Del Method Nasal Cannula 09/22/24 11:13 O2 Flow Rate 5 09/22/24 10:47 FiO2 35 09/22/24 04:00 09/21/24 09/22/24 09/22/24 22:59 06:59 14:59 Intake Total 250 / 250 240 / 240 Balance 250 / 250 240 / 240 Weight last 48 hrs Weight 93.5 kg Weight 83.915 kg Physical Exam 2 Const: COMMON NORMALS: no acute distress and patient oriented x3 Resp: COMMON NORMALS: normal respiratory effort, No retractions, No use of accessory muscles and clear to auscultation bilaterally AUSCULTATION: clear to auscultation bilaterally Cardio: COMMON NORMALS: regular rate, regular rhythm, S1 normal heart sound present and S2 normal heart sound present RATE: regular rate RHYTHM: r egular rhythm HEART SOUNDS: S1 normal heart sound present and S2 normal heart sound present GI: COMMON NORMALS: Normal to inspection, nondistended, normoactive bowel sounds present and non-tender Extremity: COMMON NORMALS: no pedal edema Neuro: COMMON NORMALS: patient oriented x3 Psych: COMMON NORMALS: mental status grossly normal Data 09/22/24 03:26 09/22/24 03:26 Micro: Microbiology 09/21/24 14:33 Blood Culture - Preliminary Blood Staphylococcus epidermidis 09/21/24 12:01 Blood Culture - Preliminary Blood SPECIMEN COLLECTED A&P Assessment and plan (1) ESRD on dialysis: (2) Acute hypoxic respiratory failure: (3) Community acquired pneumonia: (4) COPD with acute exacerbation: Plan Acute hypoxic respiratory failure - Multifactorial from COPD exacerbation - Pneumonia - With underlying diastolic CHF - End-stage renal disease on dialysis CT/CT angio chest PE protcl [id number] IMPRESSION: 1. No pulmonary embolism. 2. Pulmonary hypertension. 3. Moderate atherosclerosis aorta. 4. New scattered irregular subsolid opacifications throughout both lungs. Likely infectious or inflammatory. Recommend follow-up to resolution. 5. New lytic lesions within the thoracic spine since 03/16/2024. Recommend follow-up MRI thoracic spine with and without contrast to exclude metastatic disease. 6. Numerous mediastinal and hilar lymph nodes. This may be reactive adenopathy but neoplastic adenopathy cannot be excluded. 7. Cardiomegaly. 8. Cirrhotic liver. Plan - Monitor respiratory status closely - Solu-Medrol 125 followed by 40 mg IV every 8 hours - DuoNeb - Budesonide - Rocephin - Azithromycin -History of atrial fibrillation, continue home Eliquis, switch to metoprolol -Telemetry monitoring -Serial EKGs, serial troponins, telemetry monitoring - Nephrology consulted, plan on dialysis today - Continue Eliquis for DVT prophylaxis - Full code 1 out of 4 blood cultures positive for Staph epidermidis - Likely contamination, however cannot rule out infection -Repeat blood cultures PDMP PDMP Reviewed: Not Reviewed Attestations 2 Medical Necessity Statement*: Patient hospitalization for acute hypoxic respiratory failure send from COPD, pneumonia, diastolic CHF, end-stage renal disease on dialysis Diagnoses ESRD on dialysis N18.6; Z99.2 Acute hypoxic respiratory failure J96.01 Community acquired pneumonia J18.9 COPD with acute exacerbation J44.1
[2024-09-22] MEDS: heparin, porcine 1,000 unit/mL INJ 10 mL 10000 UNIT INTRACATH (16:44)
[2024-09-22] MEDS: heparin, porcine 1,000 unit/mL INJ 10 mL 1000 UNIT IV (16:45)
[2024-09-22] MEDS: AZITHROMYCIN ADD-Vantage 500 MG in 0.9% NaCl ADD-Vantage 250 ML 250 MG IV (17:06)
[2024-09-22] MEDS: cefTRIAXone 1,000 mg SDV 1000 MG IVP (17:06)
--- NOTE | 2024-09-22 18:00 | PC.RESP ---
this therapist was busy in er, treatment not given.
--- NOTE | 2024-09-22 19:38 | PC.NURSE ---
Patient is refusing telemetry and O2 sensor. Patient was educated on the importance of telemetry and O2 sats. Patient states that he can not stand to have wires on him.
[2024-09-22] MEDS: trazodone 150 mg Tablet PO (20:00)
[2024-09-22] MEDS: atorvastatin 40 mg Tablet PO (20:00)
[2024-09-22] MEDS: pantoprazole 40 mg SDV IVP (20:00)
[2024-09-22 22:18] LABS: Hepatitis A Antibody IgM Non-Reactive (Nonreactive); Hepatitis B Core IgM Non-Reactive (Nonreactive); Hepatitis B Surface Antigen Non-Reactive (Nonreactive); Hepatitis C Virus Antibody Non-Reactive (Nonreactive)
[2024-09-23] VITALS (10 sets, daily range): BP systolic 128–167; BP diastolic 87–100; PULSE 72–115; RESP 16–22; TEMP 36.6–36.8; O2SAT 90–99
[2024-09-23 03:55] LABS: Basophils % 0.1 %; Hematocrit 39.7 % (37-53); Lymphocytes # 0.3 10^3/uL (0.8-4.8); Lymphocytes % 2.8 %; Mean Corpuscular HGB Conc 31.2 g/dL (30-55); Mean Corpuscular Hemoglobin 31.6 pg (27-33); Monocytes # 0.3 10^3/uL (0.2-0.9); Monocytes % 2.7 %; Neutrophils # 11.16 10^3/uL (1.8-7.7); Neutrophils % 92.6 %; Nucleated Red Blood Cells % 0 %; Platelet Count 298 10^3/cmm (157-399); Red Blood Count 3.93 10^6/uL (3.85-5.65); Red Cell Distribution Width 13.2 % (12.1-15.1); White Blood Count 12.05 10^3/uL (3.29-11.43)
[2024-09-23 04:10] LABS: Alanine Aminotransferase 9 U/L (0-41); Albumin Level 3.4 g/dL (3.5-5.2); Alkaline Phosphatase 215 U/L (40-130); Anion Gap 17.2 (5-19); Aspartate Amino Transferase 9 U/L (0-40); Blood Urea Nitrogen 45 mg/dL (6-20); Calcium 8.6 mg/dL (8.5-10.5); Carbon Dioxide 27 mmol/L (22-29); Chloride 97 mmol/L (98-107); Globulin 4.2 g/dL (1.3-4.6); Glomerular Filtration Rate 7.4 mL/min (90-130); Glucose 156 mg/dL (65-115); Magnesium 2.3 mg/dL (1.7-2.3); Osmolality Calculated 297 mOsm/kg (285-295); Phosphorus 4.7 mg/dL (2.5-4.5); Potassium 5.2 mmol/L (3.5-5.1); Sodium 136 mmol/L (136-145); Total Bilirubin 0.3 mg/dL (0.15-1.2); Total Protein 7.6 g/dL (6.6-8.7)
[2024-09-23] MEDS: methylPREDNISolone sod succ 40 mg/mL INJ IVP (04:33)
[2024-09-23] MEDS: ipratropium-albuterol 3 mL Neb INHALATION (07:29)
[2024-09-23] MEDS: budesonide 0.5 mg/2 mL Neb INHALATION (07:29)
--- NOTE | 2024-09-23 07:30 | P.PN_ITS ---
Subjective 2 Subjective: seen and examined. remaisn sob on nc02. weak, poor diet. Medications: Reviewed: Yes Medication Review Details: Current Medications Acetaminophen (Acetaminophen 325 Mg Tablet) 650 mg PO Q6H PRN PRN Reason: Mild/Mod Pain Or Temp >/= 101 Albuterol/Ipratropium (Ipratropium-Albuterol 3 Ml Neb) 3 ml INHALATION QID.RESPIRATORY FRANCISCO Last Admin: 09/23/24 07:29 Dose: 3 ml Atorvastatin Calcium (Atorvastatin 40 Mg Tablet) 40 mg PO BEDTIME FRANCISCO Last Admin: 09/22/24 20:00 Dose: 40 mg Budesonide (Budesonide 0.5 Mg/2 Ml Neb) 0.5 mg INHALATION BID.RESPIRATORY FRANCISCO Last Admin: 09/23/24 07:29 Dose: 0.5 mg Ceftriaxone Sodium (Ceftriaxone 1,000 Mg Sdv) 1,000 mg IVP Q24H FRANCISCO; Protocol Last Admin: 09/22/24 17:06 Dose: 1,000 mg Azithromycin 500 mg/ Sodium (Chloride) 250 mls @ 250 mls/hr IV Q24H FRANCISCO; Protocol Last Infusion: 09/22/24 18:09 Dose: Infused Sodium Chloride (Sodium Chloride 0.9%) 1,000 mls @ 0 mls/hr IV .Q0M PRN PRN Reason: hypotension or symptomatic Albumin Human (Albumin) 12.5 gm in 50 mls @ 60 mls/hr IV PRN PRN PRN Reason: Hypotension and/or symptomatic Methylprednisolone Sodium Succinate (Methylprednisolone Sod Succ 40 Mg/Ml Inj) 40 mg IVP Q8H FRANCISCO Last Admin: 09/23/24 04:33 Dose: 40 mg Metoprolol Tartrate (Metoprolol Tartrate 25 Mg Tablet) 25 mg PO BID@0900,2100 [facility] Last Admin: 09/22/24 20:00 Dose: 25 mg Naloxone HCl (Naloxone 0.4 Mg/Ml Sdv) 0.1 mg IVP Q2M PRN PRN Reason: OPIATERV Ondansetron HCl (Ondansetron 2 Mg/Ml Sdv 2 Ml) 4 mg IVP Q8H PRN PRN Reason: vomiting, or N/V if npo Pantoprazole Sodium (Pantoprazole 40 Mg Sdv) 40 mg IVP Q24H FRANCISCO Last Admin: 09/22/24 20:00 Dose: 40 mg Trazodone HCl (Trazodone 150 Mg Tablet) 150 mg PO BEDTIME FRANCISCO Last Admin: 09/22/24 20:00 Dose: 150 mg Vitals/I&O/Wt Last Vital Signs Temp 97.8 F 09/23/24 04:00 Pulse 96 09/23/24 04:00 Resp 20 H 09/23/24 04:00 BP 155/92 09/23/24 04:00 Pulse Ox 99 09/23/24 04:00 O2 Del Method Nasal Cannula 09/23/24 04:00 O2 Flow Rate 5 09/22/24 16:00 FiO2 35 09/22/24 20:00 09/22/24 09/23/24 09/23/24 22:59 06:59 14:59 Intake Total 1160 / 1640 480 / 2120 Output Total 4000 / 4000 0 / 4000 Balance -2840 / -2360 480 / -1880 Weight last 48 hrs Weight 94.5 kg Weight 93.5 kg Weight 93.5 kg Weight 83.915 kg Physical Exam 2 Narrative: Obese man in bed, vital signs noted, he is using nasal cannula O2. HEENT normocephalic atraumatic neck is supple Anterior chest wall permacath lungs have crackles bilaterally heart positive S1-S2 Abdomen is soft positive bowel Extremities no edema Neuro awake alert oriented x 3 Data 09/23/24 03:26 09/23/24 03:26 Micro: Microbiology 09/23/24 03:26 Blood Culture - Preliminary Blood SPECIMEN COLLECTED 09/23/24 03:30 Blood Culture - Preliminary Blood SPECIMEN COLLECTED 09/21/24 12:01 Blood Culture - Preliminary Blood NEGATIVE TO DATE 09/21/24 14:33 Blood Culture - Preliminary Blood Staphylococcus epidermidis A&P Assessment and plan (1) ESRD on dialysis: 49-year-old man history of COPD history of heart failure I am not able to see the echo. per notes he has CHF, atrial fibrillation hypertension. Patient presented with volume overload. Patient was given steroids antibiotics. Patient had dialysis yesterday we will repeat dialysis today to see if dialysis helps with his breathing. Will monitor blood pressure with dialysis. hyercapneic acidoss to use BiPAP anemia- his Hemoglobin is okay at 11.9 acceptable for ESRD patient phosphorus is improving normal tsh 1.89 meds reviewed The patient was seen and examined using audiovisual appointment with the aid of a nurse with a telehealth visit. The patient consented to telehealth and to dialysis. We will follow the patient along with you. Thank you for allowing us to participate in the care of this patient Plan Hemodialysis and monitoring blood pressure. PDMP PDMP Reviewed: Not Reviewed Attestations 2 Medical Necessity Statement*: esrd, sob, htn, volume overload, hypercapneic resp acidosis Time Spent in Patient Care: 16 - 35 minutes Coding Level of Care Code Acute Code for Chg Fwd Diagnoses ESRD on dialysis N18.6; Z99.2
[2024-09-23] MEDS: metoprolol tartrate 25 mg Tablet PO (08:37)
[2024-09-23] MEDS: heparin, porcine 1,000 unit/mL INJ 10 mL 2000 UNIT IV (08:37)
--- NOTE | 2024-09-23 09:51 | PC.SOCIAL ---
IMM Updated Updated pt on IMM. No questions voiced. Provided pt a copy. Initialed, dated, & timed a copy & placed in chart.
--- NOTE | 2024-09-23 11:46 | PC.HD ---
With one hour of dialysis left, patient stated, You've got to cut me loose, I'm done. Patient signed electronic AMA, printed and placed in patient chart. UF goal was 3000; net fluid removal 7.
--- NOTE | 2024-09-23 12:54 | P.DS_ITS ---
Discharge Providers Date of Admission: 09/21/24 14:36 Date of Discharge: September 23, 2024 Attending Provider at Admission: Nish Stack MD Attending Provider at Discharge: Nish Stack MD Primary Care Provider: Ras Joy Diagnoses at Discharge Discharge Diagnosis (1) ESRD on dialysis: Status: Acute Reason for Visit Reason for Visit: SOB Hospital Course Hospital Course Leopoldo Schaefer is a 49 year old male with past medical history of end-stage renal disease on dialysis Thursday, history of atrial fibrillation, COPD, CHF, who presents [facility] for shortness of breath. Patient reports shortness of breath a lot over the last few days, he tells me whenever he gets hot and humid outside he becomes short of breath, he did go to dialysis today, he denies him pulling any fluid off of him, he is chr onically on 6 L, he is on 6 L here, denies any nausea, no vomiting, no abdominal pain, no chest pain, does have a cough, is smoking Patient presented to [facility] for acute hypoxic respiratory failure secondary to COPD exacerbation, community-acquired pneumonia, end-stage renal disease on dialysis with fluid overload, diastolic CHF For community-acquired pneumonia, patient received broad-spectrum antibiotic therapy, remains afebrile, blood cultures remain unremarkable, clinically improving, discharged on p.o. antibiotics For his diastolic CHF, end-stage renal disease on dialysis, fluid overload, received inpatient dialysis, dialyzed over 3 L negative, discharged with instructions to limit fluid intake to 1 L a day, continue with his regular dialysis Discussed smoking cessation counseling in detail Patient was found to have numerous mediastinal and hilar lymph nodes, he also was found to have new lytic lesions in thoracic spine, with new scattered irregular subsolid opacifications throughout both lungs - Will have him follow-up with oncology as outpatient for consideration of further imaging and/or PET scan Patient was found to have 2 out of 4 blood cultures positive for Staphylococcus epidermidis, same set - He does have a dialysis catheter in place in right chest, area looks clean and dry -His right chest dialysis catheter was replaced about a year ago due to malfunction no history of infection in the past - Remains afebrile - Repeat blood cultures pending, - Discussed with patient contamination versus real infection - Discussed with patient that as he is clinically improved we will continue to monitor his repeat blood cultures - If his repeat blood cultures are positive he will have to come back to the hospital, likely need his dialysis catheter removed or replaced, as there is a possibility for dialysis catheter related infection - If he has any fevers, chills, lightheadedness to immediately go to the emergency room - Nonetheless I am going to discharge him on Zyvox For his atrial fibrillation - He is CHADS2 Vasc 2 - Discussed risk and benefits of anticoagulant therapy - He used to be on Eliquis therapy, however Eliquis therapy he tells me was stopped due to bleeding from his dialysis catheter site - Patient does not want to be put back on Eliquis therapy - Discussed morbidity and mortality associated, he voiced understanding, all que stions answered, shared decision making, declined for now - Agreeable to aspirin 81 mg - Continue metoprolol Physical Exam Const: COMMON NORMALS: no acute distress and patient oriented x3 Resp: COMMON NORMALS: normal respiratory effort, No retractions, No use of accessory muscles and clear to auscultation bilaterally AUSCULTATION: clear to auscultation bilaterally Cardio: COMMON NORMALS: regular rate, regular rhythm, S1 normal heart sound present and S2 normal heart sound present RATE: regular rate RHYTHM: regular rhythm HEART SOUNDS: S1 normal heart sound present and S2 normal heart sound present GI: COMMON NORMALS: Normal to inspection, nondistended, normoactive bowel sounds present and non-tender Extremity: COMMON NORMALS: no pedal edema Neuro: COMMON NORMALS: patient oriented x3 Psych: COMMON NORMALS: mental status grossly normal Discharge Data Studies Completed and Pending Completed Studies During Hospitalization Category Date Time Status CT angio chest PE protcl [id number] Stat Cat Scan 09/21/24 14:14 Completed XR chest 1V portable [id number] Stat Exams 09/21/24 11:52 Completed Pending at discharge Category Date Time Status Blood Culture AM LABS Lab 09/23/24 03:26 Results Blood Culture Stat Lab 09/21/24 14:33 Results Complete Blood Count w/Auto AM LABS Lab 09/24/24 04:00 Ordered Comprehensive Metabolic Panel AM LABS Lab 09/24/24 04:00 Ordered Magnesium AM LABS Lab 09/24/24 04:00 Ordered Phosphorus AM LABS Lab 09/24/24 04:00 Ordered Sputum Culture and Gram Stain Stat Lab 09/21/24 16:59 Uncollected Urinalysis Routine Lab 09/21/24 14:14 Uncollected Radiology Impressions Chest X-Ray 09/21/24 11:52 IMPRESSION: 1. Mild bibasal pulmonary infiltrates which may indicate developing pneumonia. 2. Slight cardiac enlargement unchanged. Chest CTA 09/21/24 14:14 IMPRESSION: 1. No pulmonary embolism. 2. Pulmonary hypertension. 3. Moderate atherosclerosis aorta. 4. New scattered irregular subsolid opacifications throughout both lungs. Likely infectious or inflammatory. Recommend follow-up to resolution. 5. New lytic lesions within the thoracic spine since 03/16/2024. Recommend follow-up MRI thoracic spine with and without contrast to exclude metastatic disease. 6. Numerous mediastinal and hilar lymph nodes. This may be reactive adenopathy but neoplastic adenopathy cannot be excluded. 7. Cardiomegaly. 8. Cirrhotic liver. Laboratory Results WBC 12.05 10^3/uL (3.29-11.43) H 09/23/24 03:26 RBC 3.93 10^6/uL (3.85-5.65) 09/23/24 03:26 Hgb 12.40 g/dL (11.27-16.99) 09/23/24 03:26 Hct 39.7 % (37-53) 09/23/24 03:26 MCV 101.0 fl (82-101) 09/23/24 03:26 MCH 31.6 pg (27-33) 09/23/24 03:26 MCHC 31.2 g/dL (30-55) 09/23/24 03:26 RDW 13.2 % (12.1-15.1) 09/23/24 03:26 Plt Count 298 10^3/cmm (157-399) 09/23/24 03:26 MPV 9.0 fL (7.4-10.4) 09/23/24 03:26 Neut % (Auto) 92.6 % 09/23/24 03:26 Lymph % (Auto) 2.8 % 09/23/24 03:26 Mcdowell % (Auto) 2.7 % 09/23/24 03:26 Eos % (Auto) 0.0 % 09/23/24 03:26 Baso % (Auto) 0.1 % 09/23/24 03:26 Neut # (Auto) 11.16 10^3/uL (1.8-7.7) H 09/23/24 03:26 Lymph # (Auto) 0.3 10^3/uL (0.8-4.8) L 09/23/24 03:26 Mcdowell # (Auto) 0.3 10^3/uL (0.2-0.9) 09/23/24 03:26 Eos # (Auto) 0.0 10^3/uL (0.0-0.8) 09/23/24 03: Baso # (Auto) 0.0 10^3/uL (0.0-0.1) 09/23/24 03: Nucleated RBC % (auto) 0 % 09/23/24 03: Nucleated RBCs # 0.0 /100WBC 09/23/24 03:26 Specimen Type Venous 09/22/24 03: Sample Site Not specified 09/22/24 03:26 ABG pH 7.29 (7.35-7.45) L 09/21/24 17:50 ABG pCO2 60.8 mmHg (35-45) H* 09/21/24 17:50 ABG pO2 84.4 mmHg (80.0-100.0) 09/21/24 17:50 ABG PO2/FiO2 Ratio 211 09/21/24 17:50 ABG HCO3 29.1 mmol/L (22-26) H 09/21/24 17:50 ABG O2 Saturation 96.3 09/21/24 17:50 ABG Base Excess 1.3 mmol/L (-2.0-2.0) 09/21/24 17:50 Shantanu Test N/a 09/22/24 03: VBG pH 7.26 (7.32-7.42) L 09/22/24 03: VBG pCO2 63.8 mmHg (41-51) H* 09/22/24 03: VBG pO2 40.7 mmHg (25-40) H 09/22/24 03: VBG HCO3 28.3 mmol/L (24-28) H 09/22/24 03: VBG Base Excess -0.2 mmol/L (-3.0-3.0) 09/22/24 03: VBG Hematocrit 37.6 % (42-52) L 09/22/24 03:26 A-a O2 Gradient 16.6 mmHg (5-10) H 09/21/24 17:50 Hematocrit 35.9 % (42-52) L 09/21/24 17:50 Hgb O2 Saturation 93.9 % (95-100) L 09/21/24 17:50 Carboxyhemoglobin 1.4 %THgb (0.4-20.1) 09/21/24 17:50 Methemoglobin 1.1 % (0.4-1.5) 09/21/24 17:50 Total Hemoglobin 11.7 g/dL (14-18) L 09/21/24 17:50 Sodium 135.0 mmol/L (131-143) 09/21/24 17:50 Potassium 5.0 mmol/L (3.5-5.0) 09/21/24 17:50 Glucose 114.0 mg/dL (70-115) 09/21/24 17:50 Ionized Calcium 1.2 mmol/L (1.1-1.4) 09/21/24 17:50 O2 Delivery Device Nc 09/22/24 03:26 O2 Liters/Min 5.0 % 09/22/24 03:26 FiO2 40.0 % 09/21/24 17:50 Survey Methodologist ID [email or web address] 09/22/24 03:26 Sodium 136 mmol/L (136-145) 09/23/24 03:26 Potassium 5.2 mmol/L (3.5-5.1) H 09/23/24 03:26 Chloride 97 mmol/L (98-107) L 09/23/24 03:26 Carbon Dioxide 27 mmol/L (22-29) 09/23/24 03:26 Anion Gap 17.2 (5-19) 09/23/24 03:26 BUN 45 mg/dL (6-20) H 09/23/24 03:26 Creatinine 7.8 mg/dL (0.7-1.2) H* 09/23/24 03:26 GFR Calculation 7.4 mL/min (90-130) L 09/23/24 03:26 Glucose 156 mg/dL (65-115) H 09/23/24 03:26 Estimat Average Glucose 85 09/21/24 12:01 Hemoglobin A1c 4.6 % (4.0-6.0) 09/21/24 12:01 Calculated Osmolality 297 mOsm/kg (285-295) H 09/23/24 03:26 Lactic Acid 0.6 mmol/L (0.5-2.2) 09/21/24 12:01 Calcium 8.6 mg/dL (8.5-10.5) 09/23/24 03:26 Phosphorus 4.7 mg/dL (2.5-4.5) H 09/23/24 03:26 Magnesium 2.3 mg/dL (1.7-2.3) 09/23/24 03: Total Bilirubin 0.3 mg/dL (0.15-1.2) 09/23/24 03:26 AST 9 U/L (0-40) 09/23/24 03: ALT 9 U/L (0-41) 09/23/24 03:26 Alkaline Phosphatase 215 U/L (40-130) H 09/23/24 03:26 Troponin T Baseline 76 ng/L (0-15) H 09/21/24 12:01 Troponin T 120 Minute 67.87 ng/L (0-15) H 09/21/24 14:02 Delta Troponin T -8.13 ABS# (0-10) L 09/21/24 14:02 Troponin T Hi Sens 6Hr 68.33 ng/L (0-15) H 09/21/24 17:51 Troponin T Hi Sens 6Hr Delta -7.67 ng/L (0-12) L 09/21/24 17:51 C-Reactive Protein 82.9 mg/L (0.0-4.9) H 09/21/24 12:01 NT-Pro-B Natriuret Pep > 00523 pg/mL (0-125) H 09/22/24 03:26 Total Protein 7.6 g/dL (6.6-8.7) 09/23/24 03: Albumin 3.4 g/dL (3.5-5.2) L 09/23/24 03: Globulin 4.2 g/dL (1.3-4.6) 09/23/24 03:26 Procalcitonin 2.72 ng/mL (0-0.5) H 09/21/24 12:01 TSH 1.89 uIU/mL (0.27-4.20) 09/21/24 12:01 Hepatitis A IgM Ab Non-reactive (Nonreactive) 09/22/24 03:26 Hep Bs Antigen Non-reactive (Nonreactive) 09/22/24 03:26 Hep B Core IgM Ab Non-reactive (Nonreactive) 09/22/24 03:26 Hepatitis C Antibody Non-reactive (Nonreactive) 09/22/24 03:26 Vitals Last Vital Signs Temp 98.1 F 09/23/24 12:00 Pulse 115 H 09/23/24 12:00 Resp 16 09/23/24 12:00 BP 158/96 09/23/24 12:00 Pulse Ox 90 09/23/24 12:00 O2 Del Method Nasal Cannula 09/23/24 12:00 O2 Flow Rate 5 09/23/24 07:36 FiO2 35 09/22/24 20:00 Discharge Plan Discharge Patient Disposition: Home Condition: Stable Prescriptions: New atorvastatin 40 mg Tablet 40 mg PO BEDTIME 30 Days Qty: 30 0RF metoprolol tartrate 25 mg Tablet 25 mg PO BID@0900,2100 30 Days Qty: 60 0RF prednisone 20 mg tablet 20 mg PO BID 5 Days Qty: 10 0RF aspirin 81 mg tablet 81 mg PO DAILY 30 Days Qty: 30 0RF levofloxacin 250 mg tablet 250 mg PO DAILY 5 Days Qty: 5 0RF albuterol sulfate [Ventolin HFA] 90 mcg/actuation HFA aerosol inhaler 1 inh inhalation Q6H PRN (Reason: shortness of breath or wheezing) Qty: 8.5 0RF fluticasone propion-salmeterol [Advair Diskus] 250-50 mcg/dose blister with device 1 inh inhalation BID Qty: 60 0RF linezolid [Zyvox] 600 mg tablet 600 mg PO BID 7 Days Qty: 14 0RF Continued furosemide 80 mg tablet 80 mg PO BID trazodone 150 mg tablet 150 mg PO BEDTIME sodium polystyrene sulfonate Powder 30 g PO Q7D Rx Instructions: on thursday Discontinued carvedilol 6.25 mg Tablet 6.25 mg PO BID levofloxacin 250 mg tablet 250 mg PO DAILY methylprednisolone 4 mg tablets,dose pack See Rx Instructions .ROUTE .COMPLEX Rx Instructions: as directed cefdinir 300 mg capsule 200 mg PO BID Discharge Orders: Discharge Order (Routine); Ordered 09/23/24 Ordered By: Nish Stack Referrals: Chris Brunson MD [Physician, Pulmonology] - 2 weeks Paulino Amos MD [Physician, Cardiology] - 1 month Referral Note: Ras Jon [Primary Care Provider, Family Practice] - 10/03/24 4:20 pm Sandeep Guerra MD [Hospitalist, Oncology] - 2 weeks Referral Note: medistainal lymph node, lytic lesion thoracic spince Discharge Diet: Cardiac Discharge Activity: Resume usual activity Patient Instructions: COPD Stoplight, Opioid Safety, Patient Portal & Ramonita Instructions Activity Restrictions/Additional Instructions: - Please continue regular dialysis MWF - Please limit fluid intake to 1L a day - Please follow-up with Dr. Amos - Please follow-up with floor coverings salesperson here at [facility] in about 2 weeks - For your mediastinal lymph nodes, and your lytic lesions in thoracic spine please follow-up with oncology at [facility] - If any fevers or chills please come back to the emergency room - If your repeat blood cultures grow Staphylococcus epidermidis please go to emergency room Discharge Attestations Time Spent in Discharge Care*: greater than 30 min Status at Discharge: Cognitive status at discharge: cognitively intact , Behavioral status at discharge: cooperative , Quality Metrics Clinical Quality Measures [ No reported AMI, CVA or VTE this stay] Coding Level of Care Code 14499 Total time (in minutes) for Discharge: 45 Diagnoses ESRD on dialysis N18.6; Z99.2
--- NOTE | 2024-09-23 13:08 | PC.NURSE ---
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
--- NOTE | 2024-09-23 15:17 | PC.NURSE ---
[facility] jun will be here to picker/puller pt at 5 pm per transport.
== END 2024-09-23 17:51 | disposition home or self-care (01) | DRG 193 ==
LOC: ER 13:24 → CSU 14:41
PROVIDERS: Internal Medicine; Internal Medicine Nephrology; Admitting Provider Family Medicine; Emergency Provider Emergency Medicine; PCP Family Medicine; Visit Provider Family Medicine
DX: J18.9 Pneumonia, unspecified organism (principal); I50.33 Acute on chronic diastolic (congestive) heart failure; N18.6 End stage renal disease; J96.01 Acute respiratory failure with hypoxia; I13.2 Hypertensive heart and chronic kidney disease with heart failure and with stage 5 chronic kidney disease, or end stage renal disease; J44.1 Chronic obstructive pulmonary disease with (acute) exacerbation; J44.0 Chronic obstructive pulmonary disease with (acute) lower respiratory infection; N25.81 Secondary hyperparathyroidism of renal origin; E87.29 Other acidosis; Z99.2 Dependence on renal dialysis; I48.91 Unspecified atrial fibrillation; F17.210 Nicotine dependence, cigarettes, uncomplicated
CPT/HCPCS: 36415; 36600; 71045; 71275; 80051; 80053; 80074; 82330; 82803; 82805; 83036; 83605; 83735; 83880; 84100; 84145; 84443; 84484; 85025; 86140; 87040; 87077; 87150; 87186; 87205; 90935; 93005; 94640; 94660; 94664; 96365; 96375; 96376; 99285; J0456; J0696; J1644; J2470; J2919; J7050; J7626; J9999; Q3014

== ENCOUNTER 2024-10-15 06:09 | Inpatient (IN) | payer MEDICARE, SELFPAY ==
[2024-10-15] VITALS (59 sets, daily range): BP systolic 130–193; BP diastolic 88–141; PULSE 83–134; RESP 10–35; TEMP 36.5–36.8; O2SAT 70–100; BMI 29.5; BMI 14.8
--- NOTE | 2024-10-15 06:10 | ECG_ITS ---
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 Measurements Intervals Register Rate: 123 P: 0 LA: 0 QRS: 77 QRSD: 98 T: 61 QT: 310 QTc: 445 Interpretive Statements ATRIAL FIBRILLATION WITH RAPID VENTRICULAR RESPONSE LOW QRS VOLTAGE IN EXTREMITY LEADS [QRS DEFLECTION < 0.5 mV IN LIMB LEADS] ABNORMAL RHYTHM ECG Compared to ECG 09/21/2024 16:13:32 Low QRS voltage now present Electronically Signed On 10-15-2024 14:05:22 CDT by Shanna Sosa M.D. [email or web address]
--- NOTE | 2024-10-15 06:17 | XRR_ITS ---
PROCEDURE INFORMATION: Exam: XR Chest Exam date and time: 10/15/2024 6:30 AM Age: 49 years old Clinical indication: Cough and shortness of breath; Prior surgery; Surgery date: 6+ months; Surgery type: Dialysis cath; Cough with SOB. History of chf. ; Additional info: Dyspnea/cough TECHNIQUE: Imaging protocol: Radiologic exam of the chest. Views: 1 view. COMPARISON: CT angio chest PE prot [id number] 09/21/2024 2:42 PM FINDINGS: Tubes, catheters and devices: Stable right-sided dual lumen dialysis catheter. Lungs: Moderate central pulmonary vasculature congestive changes. Pleural spaces: No sizable pleural effusion or pneumothorax. Heart/Mediastinum: Cardiomegaly. Bones/joints: Unremarkable. XR/XR chest 1V portable [id number] IMPRESSION: As above.
--- OUTSIDE RECORDS SUMMARY | 2024-10-15 06:18 | XMS_ITS | Clinical Summary ---
Author Organization [facility] Address [address] [address] Phone Care Team Providers Care Fly Raiser Lockstitch Name Role Phone Ras Joy MD Primary Care Provider [phone] Allergies Active Allergy Reactions Criticality Noted Date Comments Lisinopril Swelling Medium 08/20/2021 Extremity swelling Penicillins Hives,Itching,Rash,Other High 05/12/2018 Tramadol Itching Medium 05/03/2019 Medications hydrALAZINE (Apresoline) 100 mg tablet Take 100 mg by mouth 3 (three) times a day. Active isosorbide mononitrate ER (Imdur) 120 mg 24 hr tablet Take 1 tablet (120 mg total) by mouth 1 (one) time each day. Do not crush or chew. 30 tablet 01/28/20 21 Active Additional Information Patient not taking.Informant: Spouse/Significant Other, Self, Reported on 09/16/2024 traZODone (Desyrel) 150 mg tablet Take 150 mg by mouth every night. Active furosemide (Lasix) 80 mg tablet Take 80 mg by mouth 2 (two) times a day. 03/30/19 24 Active carvediloL (Coreg) 6.25 mg tablet Take 1 tablet (6.25 mg total) by mouth 2 (two) times a day with meals. 60 tablet 11 07/15/19 24 Active dilTIAZem CD (Cardizem CD) 240 mg 24 hr capsule Take 1 capsule (240 mg total) by mouth 1 (one) time each day. 30 capsule 08/06/19 24 Active Additional Information Patient not taking.Informant: Spouse/Significant Other, Self, Reported on 09/16/2024 apixaban (Eliquis) 5 mg tablet Take 0.5 tablets (2.5 mg total) by mouth 2 (two) times a day. 30 tablet 08/18/19 24 Active Additional Information Patient not taking.Informant: Spouse/Significant Other, Self, Reported on 09/16/2024 levETIRAcetam (Keppra) 500 mg tablet Take 1 tablet (500 mg total) by mouth 2 (two) times a day. 60 tablet 11 10/06/19 24 Active Additional Information Patient not taking.Informant: Spouse/Significant Other, Self, Reported on 09/16/2024 ipratropium-albut Reymundo (Duo-Neb) 0.5-2.5 mg/3 mL nebulizer solution Take 3 mL by nebulization every 6 (six) hours. 4320 mL 11/25/19 24 Active Additional Information Patient not taking.Informant: Spouse/Significant Other, Self, Reported on 09/16/2024 Symbicort 160-4.5 mcg/actuation inhalerIndication s:Pulmonary emphysema, unspecified emphysema type (CMS/HCC) Inhale 2 puffs 2 (two) times a day. 10.2 g 3 05/27/19 25 Active Additional Information Patient not taking.Informant: Self, Reported on 09/16/2024 atorvastatin (Lipitor) 40 mg tablet Take 40 mg by mouth 1 (one) time each day in the morning. Patient takes this medication at night on days. Discontinu ed(Entered in Error) vit B,W-ZK-vgtj-selen -vit D3-E (RenaPlex-D) 800 mcg-12.5 mg -2,000 unit tablet Take 1 tablet by mouth every night. Discontinu ed(Entered in Error) pantoprazole (ProtoNix) 40 mg EC tablet Take 40 mg by mouth 2 (two) times a day. 11/22/19 22 Discontinu ed(Entered in Error) ondansetron ODT (Zofran-ODT) 4 mg disintegrating tablet Take 4 mg by mouth every 8 (eight) hours if needed for nausea or vomiting. 05/29/19 24 06/20/2 025 Discontinu ed(Entered in Error) citalopram (CeleXA) 20 mg tablet Take 20 mg by mouth every night. 09/04/19 24 025 Discontinu ed(Entered in Error) famotidine (Pepcid) 40 mg tablet Take 40 mg by mouth in the morning and 40 mg in the evening. 09/04/19 24 025 Discontinu ed(Entered in Error) cefdinir (Omnicef) 300 mg capsule Take 1 capsule (300 mg total) by mouth 2 (two) times a day for 10 days. 20 capsule 09/17/19 25 025 methylPREDNISolon e (Medrol Dospak) 4 mg tablets Follow schedule on package instructions 21 tablet 09/17/19 025 Hospital, Clinic, or Other Facility Administered Medication Ordered Dose Route Frequency Start Date End Date Status albuterol (Proventil;Ventolin) 90 mcg/actuation inhaler 4 puffIndications:COPD (chronic obstructive pulmonary disease) (CMS/HCC) 4 puff inhl Once 11/25/2023 Active albuterol (Proventil;Ventolin) 90 mcg/actuation inhaler 4 puffIndications:Pulmonary emphysema, unspecified emphysema type (CMS/HCC),Former smoker 4 puff inhl Once 05/27/2024 A ctive Active Problems Problem Noted Date Diagnosed Date Hypoglycemia 01/07/2024 Seizure 10/05/2023 Atrial fibrillation 08/30/2023 Atrial fibrillation with rapid ventricular respo nse 08/30/2023 Acute respiratory failure with hypoxia Depression 08/04/2023 Adjustment disorder 08/04/2023 Elevated troponin 07/30/2023 History of CVA (cerebrovascular accident) 2023 Benign hypertensive kidney d isease with chronic kidney disease 07/14/2023 Rheumatic mitral stenosis 07/14/2023 Atrial fibrillation with RVR 07/12/2023 PONV (postoperative nausea and vomiting) 023 Central line complication 03/27/2023 Sepsis 03/22/2023 End-stage renal disease on hemodialysis 03/21/20 23 A-fib 02/23/2023 COPD (chronic obstructive pulmonary disease) Hypertensive heart and renal disease 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 11/11/2022 Noncardiac pulmonary edema 04/24/2022 Non-cardiogenic pulmonary edema 04/24/2022 Acute on chronic diastolic heart failure 021 Benign hypertensive heart an d kidney disease without heart failure and with chronic kidney disease stage V or end stage renal disease(404.12) 01/22/2021 SOB (shortness of breath) 01/22/2021 Hyperkalemia 01/21/2021 Resolved Problems Problem Noted Date Diagnosed Date Resolved Date Syncope and collapse 08/17/2023 024 NSTEMI (non-ST elevated myoc ardial infarction) 11/10/2022 11/13/2022 Chest pain 11/10/2022 11/13/2022 Hyperkalemia 09/10/2022 04/22/2023 Cerebrovascular accident (CVA) 09/02/2022 07/16/2023 Hypertensive crisis 01/22/2021 11/14/19 23 Encounters Date Type Department Care Team Description 09/16/2024 6:00 AM CDT - 09/16/2024 11:00 AM CDT Emergency [facility] Emergency Department [address] [address] Kb Briggs MD Dyspnea, unspecified type (Primary Dx); COPD exacerbation (CMS/FORMERLY [facility]) Discharge Disposition: Discharged to Home or Self Care (Routine Discharge) from Last 3 Months Family History Medical History Relation Comments No Known Problems Brother Arrhythmia Father Heart failure Father Hypertension Father Lung cancer Father No Known Problems Father's Brother No Known Problems Father's Sister No Known Problems Maternal Grandfather No Known Problems Maternal Grandmother No Known Problems Mother No Known Problems Mother's Brother No Known Problems Mother's Sister No Known Problems Paternal Grandfather No Known Problems Paternal Grandmother No Known Problems Sister Relation Status Comments Brother Father Father's Brother Father's Sister Maternal Grandfather Maternal Grandmother Mother Alive Mother's Brother Mother's Sister Paternal Grandfather Paternal Grandmother Sister Social History Tobacco Use Types Packs/Day Years Used Date Smoking Tobacco: Former Cigarettes 1.5 30 0 05/14/1992 - 05/14/2022 Smokeless Tobacco: Never Tobacco Cessation:Counseling Given: Not Answered Alcohol Use Standard Drinks/Week Comments Not Currently 0 (1 standard drink = 0.6 oz pur e alcohol) B1300 Health Literacy Answer Date Recor ded How often do you need to hav e someone help you when you read instructions, pamphlets, or other written material from your doctor or pharmacy? Patient declines to respond 10/06/2023 [facility] Utilities Answer Date Recorded In the past 12 months has e [employer], gas, oil, or water company threatened to shut off services in your home? No 01/08/2024 Humiliation, Afraid, Rape, and Kick questionnair e Answer Date Recorded Within the last year, have y ou been afraid of your partner or ex-partner? No 01/08/2024 Within the last year, have y ou been humiliated or emotionally abused in other ways by your partner or ex-partner? No Within the last year, have y ou been kicked, hit, slapped, or otherwise physically hurt by your partner or ex-partner? No 01/08/2024 Within the last year, have y ou been raped or forced to have any kind of sexual activity by your partner or ex-partner? No 01/08/2024 Social Connection and Isolation Panel [NHANES] A nswer Date Recorded In a typical week, how many times do you talk on the phone with family, friends, or neighbors? Patient declined 10/06/2023 How often do you get togethe r with friends or relatives? Patient declined 10/06/2023 How often do you attend zoroastrian or catholic serv ices? Patient declined 10/06/2023 Do you belong to any clubs o r organizations such as zoroastrian groups, unions, fraternal or athletic groups, or school groups? Patient declined 10/06/2023 How often do you attend meet ings of the clubs or organizations you belong to? Patient declined 10/06/2023 Are you , , di vorced, , never , or living with a partner? Patient declined 10/06/2023 AUDIT-C Answer Date Recorded Q1: How often do you have a drink containing alcohol? Never 05/27/2024 Q2: How many drinks containi ng alcohol do you have on a typical day when you are drinking? Patient does not drink Q3: How often do you have si x or more drinks on one occasion? Never 05/27/2024 Overall Financial Resource Strain (CARDIA) Answe r Date Recorded How hard is it for you to pa y for the very basics like food, housing, medical care, and heating? Not hard at all 01/08/2024 PHQ-2 Answer Date Recorded Patient Health Questionnaire-2 Score 2 05/27/2024 [facility] Occupational Stress Questionnaire Answer Date Recorded Do you feel stress - tense, restless, nervous, or anxious, or unable to sleep at night because your mind is troubled all the time - these days? Patient declined 10/06/2023 Exercise Vital Sign Answer Date Recorde d On average, how many days pe r week do you engage in moderate to strenuous exercise (like a brisk walk)? Patient declined On average, how many minutes do you engage in exercise at this level? Patient declined 10/06/2023 Hunger Vital Sign Answer Date Recorded Within the past 12 months, y ou worried that your food would run out before you got the money to buy more. Never true 01/08/20 24 Within the past 12 months, t he food you bought just didn't last and you didn't have money to get more. Never true 01/08/2024 [facility] - Transportation Answer Date Re corded In the past 12 months, has l ack of transportation kept you from medical appointments or from getting medications? No 12/28 In the past 12 months, has l ack of transportation kept you from meetings, work, or from getting things needed for daily living? No 01/08/2024 Housing Stability Vital Sign Answer Miguel Angel e Recorded In the last 12 months, was t here a time when you were not able to pay the mortgage or rent on time? No 08/30/2023 In the last 12 months, how many places have you lived? 1 08/30/2023 In the last 12 months, was t here a time when you did not have a steady place to sleep or slept in a halfway (including now)? No 08/30/2023 Housing Stability Vital Sign Answer Miguel Angel e Recorded In the last 12 months, was t here a time when you were not able to pay the mortgage or rent on time? No 01/08/2024 In the past 12 months, how m any times have you moved where you were living? 0 01/08/2024 At any time in the past 12 m [facility], were you homeless or living in a halfway (including now)? No 01/08/2024 [facility] - Mental Health Answer Date Recorde d Little interest or pleasure in doing things Sweta ral days 05/27/2024 Feeling down, depressed, or hopeless Several day s 05/27/2024 Feeling of Stress Not on file 05/27/2024 Sex and Gender Information Value Date Recorded Sex Assigned at Not on file Legal Sex Male 5:49 AM CDT Gender Identity Male 01/22/2021 8:09 AM CDT Sexual Orientation Not on file Last Filed Vital Signs Vital Sign Reading Time Taken Comments Blood Pressure 141/82 09/16/2024 10:59 AM CDT Pulse 101 09/16/2024 10:59 AM CDT Temperature 36.8 C (98.3 F) 09/16/2024 7:10 AM CDT Respiratory Rate 26 09/16/2024 10:59 AM CDT Oxygen Saturation 98% 09/16/2024 10:59 AM CDT Inhaled Oxygen Concentration - - Weight 91.2 kg (201 lb) 05/27/2024 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 Height 175.3 cm (5' 9 ) 09/16/2024 6:07 AM CDT Body Mass Index 29.68 05/27/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 Plan of Treatment Upcoming Encounters Date Type Department Care Team (Late st Contact Info) Description 11/24/2024 10:30 AM CDT Office Visit [facility] [address] [place] [id number] Guy Davenport MD [address], [address] [place], [place] [id number] Health Maintenance Due Date Last Done Comments CT Colonography 1973 Colonoscopy 1973 Colorectal Cancer Screening 1973 FIT-DNA 1973 FIT 1973 FOBT 1973 Sigmoidoscopy 1973 MMR Vaccines (1 of 1 - Standard series) 1974 DTaP,Tdap,and Td Vaccines (1 - Tdap) 1980 Varicella Vaccines (1 of 2 - 13+ 2-dose series) 1986 Social Drivers of Health (SDoH) 1991 Hepatitis B Vaccines (1 of 3 - 19+ 3-dose series) 1992 Medicare Initial AWV [id number] 03/30/2020 [facility] Lung Cancer Screening Shared Decision Making 2023 Zoster Vaccines (1 of 2) 2023 COVID-19 Vaccine (1 - season) 2023 Echocardiogram 07/14/2024 07/15/2023, 10/28, 09/02/2022, Additional history exists Influenza Vaccine (#1) 2024 , 12/28/2021, 12/28/2020 Diabetes Screening 01/06/2025 01/07/2024 Depression Screening 05/28/2025 05/27/2024 Creatinine Level 09/16/2025 09/16/2024, , 01/09/2024, Additional history exists Potassium Level 09/16/2025 09/16/2024, 12/28, 01/10/2024, Additional history exists Pneumococcal Vaccine: 50+ Years (4 of 4 - PCV20 or PCV21) 12/28/2026 12/28/2021, 04/05/2019, 02/02/2019 Pneumococcal Vaccine (4 of 4 - PCV20 or PCV21) 12/28/2026 12/28/2021, 04/05/2019, 02/02/2019 Lipid Panel 01/08/2029 01/09/2024, 09/02/2022 RSV Vaccines (1 - 1-dose 75+ series) 2048 HIB Vaccines Aged Out No longer eligi ble based on patient's age to complete this topic HPV Vaccines Aged Out No longer eligi ble based on patient's age to complete this topic Hepatitis A Vaccines Aged Out No long er eligible based on patient's age to complete this topic IPV Vaccines Aged Out No longer eligi ble based on patient's age to complete this topic Meningococcal B Vaccine Aged Out No l onger eligible based on patient's age to complete this topic Meningococcal Vaccine Aged Out No davion irvin eligible based on patient's age to complete this topic Rotavirus Vaccines Aged Out No longer eligible based on patient's age to complete this topic Medical Devices Implanted Type Area Lobby Attendant Device Identifier Shelf Expiration Date Model / Serial / Lot Catheter Catheter Right: Subclavian Screw Screw Right: Hand Procedures Procedure Name Priority Date/Time Associated Diagnosis Comments ECG 12-LEAD STAT 09/16/2024 1:22 PM CDT Dyspnea, unspecified type BLOOD CULTURE Routine 09/16/2024 8:56 AM CDT BLOOD CULTURE Routine 09/16/2024 8:53 AM CDT RAPID INFLUENZA A/B STAT 09/16/2024 8 :34 AM CDT SARS-COV-2 VIK STAT 09/16/2024 8:[address] HEAD WO IV CONTRAST STAT 09/16/2024 8:[address] ANGIOGRAM CHEST PULMONARY EMBOLISM W IV CONTRAST STAT 09/16/2024 8:24 AM CDT POCT VENOUS BLOOD GAS Routine 09/16/2024 7:40 AM CDT OXYGEN THERAPY Routine 09/16/2024 7:37 AM CDT XR CHEST 1 VIEW STAT 09/16/2024 7:25 AM CDT AMMONIA Add-On 09/16/2024 7:00 AM CDT ETHANOL Add-On 09/16/2024 7:00 AM CDT CBC WITH AUTO DIFFERENTIAL STAT 09/16/2024 7:00 AM CDT PÉREZ TOP Routine 09/16/2024 7:00 AM CDT COMPREHENSIVE METABOLIC PANEL STAT 09/16/2024 7:00 AM CDT CBC AND AUTO DIFFERENTIAL STAT 09/16/2024 7:00 AM CDT RED TOP Routine 09/16/2024 6:59 AM CDT LIGHT BLUE TOP Routine 09/16/2024 6:59 AM CDT HIGH SENSITIVITY TROPONIN I STAT 09/16/2024 6:59 AM CDT RAINBOW DRAW Routine 09/16/2024 6:59 AM CDT LIPID PANEL Pending Discharge 01/09/2024 5:51 AM CDT HEMOGLOBIN A1C Add-On 01/07/2024 5:20 PM CDT TRANSTHORACIC ECHO (TTE) COMPLETE W/ COLOR AND DOPPLER Routine 07/15/2023 4:12 PM CDT from Last 3 Months or Most Recently Relevant to Health Maintenance Results * ECG 12 lead (09/16/2024 1:22 PM CDT) 09/16/2024 1:22 PM CDT Narrative [facility] - 09/16/2024 1:22 PM CDT Interpretive Statements Atrial fibrillation Electronically Signed On 09-16-2024 13:22:52 CDT by Gurpreet Lafleur MD Procedure Note Gurpreet Lafleur MD - 09/16/2024 Interpretive Statements Atrial fibrillation Electronically Signed On 09-16-2024 13:22:52 CDT by Gurpreet Lafleur MD us Kb Briggs MD ECG ORDERABLES Edited Result - Final [facility] [address] [place] [address] * Blood culture (09/16/2024 8:56 AM CDT) Only the most recent of2 resultswithin the time period is included. Blood Culture No growth at 5 days 09/21/2024 10:00 AM CDT [facility] Blood Venous blood specimen / Unknown Venipuncture / Unknown 09/16/2024 8:56 AM CDT 09/16/2024 9:02 AM CDT Kb Briggs MD LAB MICROBIOLOGY - GENERAL OR DERABLES Final Result Performing Organization Address [facility] Co de Phone Number [facility] [address] [place] [phone] * SARS-COV-2 VIK (09/16/2024 8:34 AM CDT) SARS COV-2 Negative Negative, Invalid 09/16/2024 9:01 AM CDT [facility] Swab Nasopharyngeal structure / Unknown Non-blood Collection / Unknown 09/16/2024 8:34 AM CDT 09/16/2024 8:38 AM CDT Narrative [facility] - 09/16/2024 9:01 AM CDT Negative results should be treated as presumptive and, if inconsistent with clinical signs and symptoms or necessary for patient management, should be tested with an alternative molecular assay. A negative result does not rule out co-infections with other pathogens. This assay is for in vitro diagnostic use under FDA emergency use authorization only. Kb Briggs MD LAB MICROBIOLOGY - GENERAL OR DERABLES Final Result Performing Organization Address [facility] Co de Phone Number [facility] [address] [place] [phone] * Rapid influenza A/B (09/16/2024 8:34 AM CDT) Influenza A, VIK Negative Negative 09/16/2024 9:02 AM CDT [facility] Influenza B, VIK Negative Negative 09/16/2024 9:02 AM CDT [facility] Swab Nasopharyngeal structure / Unknown Non-blood Collection / Unknown 09/16/2024 8:34 AM CDT 09/16/2024 8:38 AM CDT Kb Briggs MD LAB MICROBIOLOGY - GENERAL OR DERABLES Final Result [facility] [address] [address] * CT head wo IV contrast (09/16/2024 8:25 AM CDT) Anatomical Region Laterality Modality Head and Neck Computed Tomogra phy 09/16/2024 8:26 AM CDT Narrative 09/16/2024 8:32 AM CDT EXAMINATION: CT head without contrast HISTORY: Altered mental status. TECHNIQUE: CT of the head was performed with images acquired from skull base to vertex without intravenous contrast. COMPARISON: Head CT dated 01/07/2024. FINDINGS: Study is limited by motion. There is no acute intracranial hemorrhage. Ventricles are of normal size and morphology. No mass effect or midline shift is present. The day-white matter differentiation is normal. There is a large area of encephalomalacia and adjacent gliosis in the right frontoparietal area, unchanged. There is moderate, patchy hypoattenuation in the bihemispheric white matter, also unchanged. There is an old lacunar infarct in the ran. The visualized portions of the orbits are normal. The visualized portions of the mastoids are normal. There is a mucous retention cyst in the left frontal sinus and there is mucosal thickening in the bilateral ethmoid and maxillary sinuses. There is complete opacification of the bilateral mastoids and middle ears. There are calcifications in the left distal vertebral artery and bilateral cavernous carotid arteries No fractures are identified. IMPRESSION: 1. No acute intracranial process. 2. Stable chronic ischemic changes. 3. Complete opacification of the mastoids and middle ears. Correlate for otomastoiditis Electronically signed on 09/16/2024 8:32 AM by: Atul Arevalo MD Procedure Note Atul Arevalo MD - 09/16/2024 EXAMINATION: CT head without contrast HISTORY: Altered mental status. TECHNIQUE: CT of the head was performed with images acquired from skullbase to vertex without intravenous contrast. COMPARISON: Head CT dated 01/07/2024. FINDINGS: Study is limited by motion. There is no acute intracranial hemorrhage.Ventricles are of normal size and morphology. No mass effect or midlineshift is present. The day-white matter differentiation is normal. Thereis a large area of encephalomalacia and adjacent gliosis in the rightfrontoparietal area, unchanged. There is moderate, patchy hypoattenuationin the bihemispheric white matter, also unchanged. There is an old lacunarinfarct in the ran. The visualized portions of the orbits are normal. The visualized portionsof the mastoids are normal. There is a mucous retention cyst in the leftfrontal sinus and there is mucosal thickening in the bilateral ethmoid andmaxillary sinuses. There is complete opacification of the bilateralmastoids and middle ears. There are calcifications in the left distalvertebral artery and bilateral cavernous carotid arteries No fractures areidentified. IMPRESSION: 1. No acute intracranial process. 2. Stable chronic ischemic changes. 3. Complete opacification of the mastoids and middle ears. Correlate forotomastoiditis Electronically signed on 09/16/2024 8:32 AM by: Atul Arevalo MD Kb Briggs MD IMG CT PROCEDURES Final Resul t * CT angiogram chest pulmonary embolism w IV contrast (09/16/2024 8:24 AM CDT) Anatomical Region Laterality Modality Body Computed Tomogra phy 09/16/2024 8:33 AM CDT Narrative 09/16/2024 8:44 AM CDT EXAMINATION: CT ANGIOGRAM CHEST PULMONARY EMBOLISM W IV CONTRAST TECHNIQUE: Computed Tomographic images were acquired using a Chest Angiographic protocol optimized for pulmonary embolism. Contrast enhanced transaxial images were obtained following the intravenous administration of 100 ml of nonionic contrast. Multiplanar reformatted images and three-dimensional images were obtained on the 3-D workstation and sent to the PACS archival system. HISTORY: Evaluate for PE. Difficulty breathing. COMPARISON: Chest CT dated 01/07/2024. FINDINGS: There is no pulmonary embolus. There is mild atelectasis in the lung bases and in the lingula. There is mild emphysema. There is no focal consolidation or pneumothorax. Mild mediastinal and hilar lymphadenopathy is stable to increased slightly. For example, a subcarinal lymph node measures 2.5 x 1.8 cm, compared with 2.1 x 1.6 cm. A paratracheal lymph node measures 1.9 x 1.4 cm, unchanged. Heart is mildly enlarged. There are coronary artery and mitral annulus calcifications. No pericardial effusion. The aorta is calcified. There is CT imaging evidence of right heart strain: No Limited evaluation of the upper abdomen demonstrates atrophy of the [place] kidneys. There are diffuse arterial calcifications. There is severe stenosis of the proximal SMA. Evaluation of the bones demonstrates diffuse sclerosis, in keeping with end-stage renal disease. IMPRESSION: 1. No pulmonary embolism. No acute findings in the chest. 2. Mild thoracic lymphadenopathy is stable to slightly increased compared with the prior study. Consider PET CT for further evaluation. The CT scan was performed using dose optimization techniques, as appropriate, including automated exposure control, adjustment of the mA and/or kV according to patient size, and/or iterative reconstruction technique. Electronically signed on 09/16/2024 8:44 AM by: Atul Arevalo MD Procedure Note Atul Arevalo MD - 09/16/2024 EXAMINATION: CT ANGIOGRAM CHEST PULMONARY EMBOLISM W IV CONTRAST TECHNIQUE: Computed Tomographic images were acquired using a ChestAngiographic protocol optimized for pulmonary embolism. Contrast enhancedtransaxial images were obtained following the intravenous administrationof 100 ml of nonionic contrast. Multiplanar reformatted images andthree-dimensional images were obtained on the 3-D workstation and sent tothe PACS archival system. HISTORY: Evaluate for PE. Difficulty breathing. COMPARISON: Chest CT dated 01/07/2024. FINDINGS: There is no pulmonary embolus. There is mild atelectasis in thelung bases and in the lingula. There is mild emphysema. There is no focalconsolidation or pneumothorax. Mild mediastinal and hilar lymphadenopathyis stable to increased slightly. For example, a subcarinal lymph nodemeasures 2.5 x 1.8 cm, compared with 2.1 x 1.6 cm. A paratracheal lymphnode measures 1.9 x 1.4 cm, unchanged. Heart is mildly enlarged. There arecoronary artery and mitral annulus calcifications. No pericardialeffusion. The aorta is calcified. There is CT imaging evidence of right heart strain: No Limited evaluation of the upper abdomen demonstrates atrophy of the nativekidneys. There are diffuse arterial calcifications. There is severestenosis of the proximal SMA. Evaluation of the bones demonstrates diffusesclerosis, in keeping with end- stage renal disease. IMPRESSION: 1. No pulmonary embolism. No acute findings in the chest. 2. Mild thoracic lymphadenopathy is stable to slightly increased comparedwith the prior study. Consider PET CT for further evaluation. The CT scan was performed using dose optimization techniques, asappropriate, including automated exposure control, adjustment of the mAand/or kV according to patient size, and/or iterative reconstructiontechnique. Electronically signed on 09/16/2024 8:44 AM by: Atul Arevalo MD Kb Briggs MD IMG CT PROCEDURES Final Resul t * (ABNORMAL) POCT venous blood gas docked device (09/16/2024 7:40 AM CDT) SODIUM VENOUS (POC) 134(L) 135 - 145 mmol/L 09/16/2024 7:43 AM CDT [facility] Hemoglobin, Venous 11.6(L) 13.7 - 17.5 g/dL 09/16/2024 7:43 AM CDT [facility] Hematocrit, Venous 34.0(L) 40.1 - 51.0 % 09/16/2024 7:43 AM CDT [facility] Potassium, Venous 5.8(H) 3.6 - 5.0 mmol/L 09/16/2024 7:43 AM CDT [facility] pCO2, Venous 46 41 - 51 mm Hg 09/16/2024 7:43 AM CDT [facility] pO2, Venous 85(H) 30 - 50 mm Hg 09/16/2024 7:43 AM CDT [facility] TCO2, Venous 27 23 - 27 mmol/L 09/16/2024 7:43 AM CDT [facility] HCO3, Venous 25 22 - 28 mmol/L 09/16/2024 7:43 AM CDT [facility] Base Excess, Venous -1 >-2 - <2 mmol/L 09/16/2024 7:43 AM CDT [facility] Site R Brachial 09/16/2024 7:43 AM CDT [facility] pH, Glenn 7.35 7.35 - 7.45 09/16/2024 7:43 AM CDT [facility] O2 DELIVERY SYSTEM NC 09/16/2024 7:43 AM CDT [facility] LPM 6 09/16/2024 7:43 AM CDT [facility] MODIFIED ROCK'S TEST Not Applicable 09/16/2024 7:43 AM CDT [facility] Blood Venous blood specimen / Unknown 09/16/2024 7:40 AM CDT 09/16/2024 7:43 AM CDT us Kb Briggs MD LAB POINT OF CARE TE ST DOCKED DEVICE UNSOLICITED RESULTS Final Result [facility] [address] [id number] * XR chest 1 view (09/16/2024 7:25 AM CDT) Anatomical Region Laterality Modality Body Digital Radiogra phy 09/16/2024 7:27 AM CDT Narrative 09/16/2024 7:30 AM CDT EXAMINATION: Chest, single view.. DATE: 09/16/2024. HISTORY: dyspnea COMPARISON: Chest radiographs dated 01/09/2024. FINDINGS: Lungs are clear. There is no effusion, edema, or pneumothorax. Heart is enlarged. Mediastinal contour is normal. There is a right jugular approach dialysis catheter. Tip is at the superior cavoatrial junction. IMPRESSION: No acute findings. Electronically signed on 09/16/2024 7:30 AM by: Atul Arevalo MD Procedure Note Atul Arevalo MD - 09/16/2024 EXAMINATION: Chest, single view.. DATE: 09/16/2024. HISTORY: dyspnea COMPARISON: Chest radiographs dated 01/09/2024. FINDINGS: Lungs are clear. There is no effusion, edema, or pneumothorax.Heart is enlarged. Mediastinal contour is normal. There is a right jugularapproach dialysis catheter. Tip is at the superior cavoatrial junction. IMPRESSION: No acute findings. Electronically signed on 09/16/2024 7:30 AM by: Atul Arevalo MD us Kb Briggs MD IMG XR PROCEDURES Final Resul t * (ABNORMAL) CBC auto differential (09/16/2024 7:00 AM CDT) Pathologist [facility] White Blood Count 10.8 4.0 - 11.4 K/mm3 09/16/2024 7:46 AM [facility] Red Blood Count 3.53(L) 4.63 - 6.08 M/mm3 09/16/2024 7:46 AM [facility] Hemoglobin 11.6(L) 13.7 - 17.5 g/dL 09/16/2024 7:46 AM [facility] Hematocrit 34.2(L) 40.1 - 51.0 % 09/16/2024 7:46 AM [facility] Mean Cell Volume 97.0(H) 80.7 - 94.9 fL 09/16/2024 7:46 AM [facility] MEAN CORPUSCULAR HEMOGLOBIN 32.8 26.7 - 32.8 pg 09/16/2024 7:46 AM [facility] Mean Corpuscular Hemoglobin Concentration 33.9 31.6 - 36.0 g/dL 09/16/2024 7:46 AM [facility] RED CELL DISTRIBUTION WIDTH-SD 52.9(H) 35.6 - 49.5 fl 09/16/2024 7:46 AM [facility] Platelet Count 222 150 - 450 K/mm3 09/16/2024 7:46 AM [facility] Mean Platelet Volume 7.5 7.0 - 10.2 fL 09/16/2024 7:46 AM [facility] ANC (AUTOMATED) 9.0 2.0 - 9.8 K/ul 09/16/2024 7:46 AM [facility] Lymphocytes % 2.9(L) 10.1 - 46.5 % 09/16/2024 7:46 AM [facility] Monocytes % 10.9 3.2 - 12.9 % 09/16/2024 7:46 AM [facility] Neutrophils % 83.9(H) 40.6 - 81.1 % 09/16/2024 7:46 AM [facility] Eosinophils % 1.2 0.0 - 4.2 % 09/16/2024 7:46 AM [facility] Basophils % 1.1 0.0 - 1.1 % 09/16/2024 7:46 AM [facility] Lymphocytes Absolute 0.3(L) 0.6 - 3.6 K/uL 09/16/2024 7:46 AM CDT [facility] Monocytes Absolute 1.2(H) 0.3 - 1.1 K/uL 09/16/2024 7:46 AM CDT [facility] Neutrophils Absolute 9.0 2.0 - 9.8 K/uL 09/16/2024 7:46 AM CDT [facility] Eosinophils Absolute 0.10 0.00 - 0.60 K/uL 09/16/2024 7:46 AM CDT [facility] Basophils Absolute 0.1 0.0 - 0.1 1000/uL 09/16/2024 7:46 AM CDT [facility] Nucleated RBC % 0.0 0.0 - 0.2 % 09/16/2024 7:46 AM CDT [facility] Nucleated RBC Absolute 0.00 0.00 - 0.03 K/ul 09/16/2024 7:46 AM CDT [facility] Monocyte Distribution Width 20.09(H) <=20 09/16/2024 7:46 AM CDT [facility] Comment:MDW values greater t jane 20.0 should be interpreted in association with other clinical information and diagnostic testing, as a proportion of patients without sepsis may have an elevated MDW value at baseline. Blood Venous blood specimen / Unknown Existing Catheter / Unknown 09/16/2024 7:00 AM CDT 09/16/2024 7:05 AM CDT [facility] - 09/16/2024 7:46 AM CDT This is an appended report. These results have been appended to a previously verified report. us Kb Briggs MD LAB BLOOD ORDERABLES Final Re sult [facility] [address] [address] * Pérez Top (09/16/2024 7:00 AM CDT) Extra Tube Hold for add-ons. 09/16/2024 12:02 PM CDT [facility] Comment:Auto resulted. Blood Venous blood specimen / Unknown Existing Catheter / Unknown 09/16/2024 7:00 AM CDT 09/16/2024 7:06 AM CDT us Kb Briggs MD LAB BLOOD ORDERABLES Final Re sult Performing Organization Address [facility] Co de Phone Number [facility] [address] [id number] * Ammonia (09/16/2024 7:00 AM CDT) Ammonia 45 19 - 54 ug/dL LAB CHEMISTRY METHOD 09/16/2024 8:06 AM CDT [facility] Blood Venous blood specimen / Unknown Existing Catheter / Unknown 09/16/2024 7:00 AM CDT 09/16/2024 7:06 AM CDT Kb Briggs MD LAB BLOOD ORDERABLES Final Re sult Performing Organization Address [facility] de Phone Number [facility] [address] [place] [phone] * Ethanol (09/16/2024 7:00 AM CDT) Ethanol, Plasma <10 <=299 mg/dL LAB CHEMISTRY METHOD 09/16/2024 7:52 AM CDT [facility] Blood Venous blood specimen / Unknown Existing Catheter / Unknown 09/16/2024 7:00 AM CDT 09/16/2024 7:06 AM CDT Narrative [facility] - 09/16/2024 7:52 AM CDT To convert mg/dL to % divide result by 1000. Plasma ethanol is intended for medical use only and should not be used for legal or forensic purposes. The pharmacological response to plasma ethyl alcohol level is subject to considerable individual variation. us Kb Briggs MD LAB BLOOD ORDERABLES Final Re sult Performing Organization Address [facility] de Phone Number [facility] [address] [phone] * (ABNORMAL) Comprehensive metabolic panel (09/16/2024 7:00 AM CDT) Glucose 90 70 - 100 mg/dL LAB CHEMISTRY METHOD 09/16/2024 7:33 AM CDT [facility] BUN 68(H) 9 - 20 mg/dL LAB CHEMISTRY METHOD 09/16[facility]2024 7:[facility] Creatinine 9.82(H) 0.66 - 1.25 mg/dl LAB CHEMISTRY METHOD 09/16/2024 7:33 AM [facility] BUN/Creatinine Ratio 7(L) 12 - 17 LAB CHEMISTRY METHOD 09/16/2024 7:33 AM [facility] Sodium 132(L) 135 - 145 mmol/L LAB CHEMISTRY METHOD 09/16/2024 7:33 AM [facility] Potassium 5.4(H) 3.6 - 5.0 mmol/L LAB CHEMISTRY METHOD 09/16/2024 7:33 AM [facility] Chloride 98(L) 101 - 111 mmol/L LAB CHEMISTRY METHOD 09/16/2024 7:33 AM [facility] Total Carbon Dioxide 27 22 - 30 mmol/L LAB CHEMISTRY METHOD 09/16/2024 7:33 AM [facility] Anion Gap 12 9 - 17 mmol/L LAB CHEMISTRY METHOD 09/16/2024 7:33 AM [facility] Calcium 9.1 8.2 - 10.2 mg/dL LAB CHEMISTRY METHOD 09/16/2024 7:33 AM [facility] Total Protein, Serum 7.4 5.6 - 8.5 g/dL LAB CHEMISTRY METHOD 09/16/2024 7:33 AM [facility] Albumin 3.1(L) 3.5 - 5.2 g/dL LAB CHEMISTRY METHOD 09/16/2024 7:33 AM [facility] GLOBULIN 4.3(H) 2.1 - 3.8 g/dL LAB CHEMISTRY METHOD 09/16/2024 7:33 [facility] A/G Ratio 0.7(L) 1.4 - 1.7 LAB CHEMISTRY METHOD 09/16/2024 7:33 [facility] Bilirubin, Total 0.8 0.1 - 1.3 mg/dL LAB CHEMISTRY METHOD 09/16/2024 7:33 AM CDT [facility] Alkaline Phosphatase 248(H) 45 - 117 U/L LAB CHEMISTRY METHOD 09/16/2024 7:33 AM CDT [facility] ALT (SGPT) 13 11 - 58 U/L LAB CHEMISTRY METHOD 09/16/2024 7:33 AM CDT [facility] AST (SGOT) 9 9 - 55 U/L LAB CHEMISTRY METHOD 09/16/2024 7:33 AM CDT [facility] eGFR 6(L) >=60 mL/min/1. 73 m2 LAB CHEMISTRY METHOD 09/16/2024 7:33 AM CDT [facility] Comment:High Risk of Kidney Failure Blood Venous blood specimen / Unknown Existing Catheter / Unknown 09/16/2024 7:00 AM CDT 09/16/2024 7:06 AM CDT us Kb Briggs MD LAB BLOOD ORDERABLES Final Re sult Performing Organization Address City/[facility]/ZIP Co de Phone Number [facility] [address] [address] * High Sensitivity Troponin (09/16/2024 6:59 AM CDT) High Sensitivity Troponin I 35 3 - 79 ng/L ng/L LAB CHEMISTRY METHOD 09/16/2024 7:33 AM CDT [facility] Blood Venous blood specimen / Unknown Existing Catheter / Unknown 09/16/2024 6:59 AM CDT 09/16/2024 7:06 AM CDT us Kb Briggs MD LAB BLOOD ORDERABLES Final Re sult Performing Organization Address City/[facility]/ZIP Co de Phone Number [facility] [address] [address] * Red Top (09/16/2024 6:59 AM CDT) Extra Tube Hold for add-ons. 09/16/2024 12:02 PM CDT [facility] Comment:Auto resulted. Blood Venous blood specimen / Unknown Existing Catheter / Unknown 09/16/2024 6:59 AM CDT 09/16/2024 7:05 AM CDT us Kb Briggs MD LAB BLOOD ORDERABLES Final Re sult Performing Organization Address City/[facility]/ZIP Co de Phone Number [facility] [address] [address] * Light Blue Top (09/16/2024 6:59 AM CDT) Extra Tube Hold for add-ons. 09/16/2024 12:02 PM CDT [facility] Comment:Auto resulted. Blood Venous blood specimen / Unknown Existing Catheter / Unknown 09/16/2024 6:59 AM CDT 09/16/2024 7:06 AM CDT Kb Briggs MD LAB BLOOD ORDERABLES Final Re sult Performing Organization Address City/[facility] Co de Phone Number [facility] [address] [address] * Lipid Panel (01/09/2024 5:51 AM CDT) Cholesterol, Total 94 0 - 200 mg/dL LAB CHEMISTRY METHOD 01/09/2024 6:43 AM CDT [facility] Comment: NCEP guidelines: Adults (older than 19 yrs) Desirable: Less than 200 mg/dL Borderline-High: 200 - 239 mg/dL High: Greater than or equal to 240 mg/dL Triglycerides 35 0 - 150 mg/dL LAB CHEMISTRY METHOD 01/09/2024 6:43 AM CDT [facility] Comment: NCEP guidelines: Normal: 10 - 150 mg/dL Borderline-High: 150 - 199 mg/dL High: 200 - 499 mg/dL Very High: Greater than 500 mg/dL High-Density Lipoprotein 46 40 - 60 mg/dL LAB CHEMISTRY METHOD 01/09/2024 6:43 AM CDT [facility] Comment: NCEP guidelines: Low: Less than 40 mg/dL Normal: 40 - 60 mg/dL High: Greater than 60 mg/dL LDL 41 0 - 130 mg/dL LAB CHEMISTRY METHOD 01/09/2024 6:43 AM CDT [facility] Blood Venous blood specimen / Unknown Venipuncture / Unknown 01/09/2024 5:51 AM CDT 01/09/2024 6:10 AM CDT Michele Cage MD LAB BLOOD ORDERABLES F inal Result Performing Organization Address [facility] Co de Phone Number [facility] [address] [place] [phone] * Hemoglobin A1c (01/07/2024 5:20 PM CDT) Hemoglobin A1c 4.7 % 01/08/2024 10:47 AM CDT [facility] Estimated Average Glucose 88 mg/dL 01/08/2024 10:47 AM CDT [facility] Blood Venous blood specimen / Unknown Existing Catheter / Unknown 01/07/2024 5:20 PM CDT 01/07/2024 5:28 PM CDT Narrative [facility] - 01/08/2024 10:47 AM CDT HgbA1C ranges recommended by the [place] [employer] (ADA): >6.5% Diabetic 5.7-6.4% Pre-Diabetic <5.7% Non-Diabetic Oumar Angulo MD LAB BLOOD ORDERABLES Final Resul t Performing Organization Address [facility] Co de Phone Number [facility] [address] [place] [phone] * TRANSTHORACIC ECHO (TTE) COMPLETE W/ COLOR AND DOPPLER (07/15/2023 4:12 PM CDT) Anatomical Region Laterality Modality Echocardiography 07/15/2023 3:34 PM CDT Narrative 07/15/2023 4:49 PM CDT Demographics Patient name: BALAJI VAZQUEZ Gender: Male Age: 48 year(s) Date of : 1975 BMI: 27.13 kg/m^2 Height: 177 cm BSA: 2.02 m^2 Weight: 85 kg Ethnicity: None Race: Procedure Information Procedure type: Echo Proc. sub type: TTE procedure: Transthoracic Echo (TTE) Complete. Start date time: 07/15/2023 3:34 PM Accession no: [id number] Patient status: Routine Visit no: [id number] HR: 115 bpm Study location: Portable In/Out patient: Inpatient Technical quality: Adequate Blood pressure: 120 / 77 mmHg Room no: 254N Procedure Staff Referring Physician: Declan Castrejon M.D. Business Developer: Michelle Bundy [facility] RVT Interpreting physician: Declan Castrejon M.D. Physician Conclusions Summary: 1. Normal left ventricular size and function with an estimated LVEF of 55-60%. 2. Moderate left ventricular hypertrophy. 3. Indeterminate diastolic function. 4. Normal left atrial size with a left atrial volume index of 22 ml/m2. 5. Normal right ventricular size and function. 6. Mild right atrial enlargement. 7. Aortic sclerosis without stenosis. Mild aortic regurgitation. 8. Mitral annular calcification. Trivial mitral regurgitation which could be underestimated due to mitral annular calcification. 9. Mild mitral valve stenosis is present with a mean gradient of 3.9 mmHg. Mitral valve area by pressure half time method is 2.72-3.28 cm2. 10. Mild tricuspid regurgitation. 11. Normal estimated right ventricular systolic pressure (RVSP) of 35 mmHg. 12. The ascending aorta and descending aorta were normal size. 13. The IVC is normal in size and collapses normal with inspiration. 14. No evidence of pericardial effusion. As compared to study dated 11/11/2022: Mild left ventricular hypertrophy now appears severe. Left atrial size appears within normal limits on today's study. Pulmonary hypertension is not present on today's study. Indications Congestive heart failure. Findings Left ventricle Normal left ventricular size and function with an estimated LVEF of 55-60%. summary: Moderate left ventricular hypertrophy. Indeterminate diastolic function. The septal e prime is 0.110 m/s, the lateral e prime is 0.133 m/s, and the left atrial volume index is 22 ml/m2. Right ventricle Normal right ventricular size and function. summary: Left atrium summary: Normal left atrial size with a left atrial volume index of 22 ml/m2. Right atrium summary: Mild right atrial enlargement. Aortic valve summary: Aortic sclerosis without stenosis. Mild aortic regurgitation. Mitral valve summary: Mitral annular calcification. Trivial mitral regurgitation which could be underestimated due to mitral annular calcification. Possible mild mitral valve stenosis is present with a mean gradient of 3.9 mmHg. Mitral valve area by pressure half time method is 2.72-3.28 cm2. Tricuspid valve Structurally normal tricuspid valve. summary: Mild tricuspid regurgitation. Normal estimated right ventricular systolic pressure (RVSP) of 35 mmHg. No evidence of tricuspid stenosis. Pulmonic valve Not well visualized. summary: No evidence of pulmonic regurgitation. No evidence of stenosis. Aorta/Great vessels The ascending aorta and descending aorta were normal size. summary: The IVC is normal in size and collapses normal with inspiration. Pericardial summary: No evidence of pericardial effusion. Pleural summary: No evidence of pleural effusion. Left Ventricle Diastolic dimension: 4.05 cm (4.2 - 5.8 cm) Systolic dimension: 2.98 cm FS: 26 % 2D septum diastolic: 1.82 cm (0.6 - 1.0 cm) CO: 10.61 l/min 2D post wall diastolic: 1.82 cm (0.6 - 1 cm) CI: 5.25 l/min/m^2 LV mass (ASE formula): 323.69 g (88 - 224 g) LV mass index: 159.95 g/m^2 (49 - 115 g/m^2) RWT: 0.9 LV M-Mode LV Ejection Fraction LVEDV : 188.5 ml (62 - 150 ml) LVESV : 82 ml (21 - 61 ml) LVEDVI Teichholz: 93.15 ml/m^2 (34 - 74 ml/m^2) LVESVI Teichholz: 40.52 ml/m^2 (11 - 31 ml/m^2) EF : 56 % LV 3D/Strain Global strain: 11 % Right Ventricle Diastolic dimension: 3.55 cm Systolic pressure: 35.49 mmHg TAPSE: 1.63 cm (> 1.69 cm) Left Atrium LA diameter (2D): 3.98 cm LA/Aorta (2D): 1.03 Right Atrium RA area: 20.49 cm^2 RA area index: 10.13 cm^2/m^2 Aortic Valve Peak velocity: 179 cm/s Mean velocity: 141 cm/s Peak gradient: 12.82 mmHg Mean gradient: 8.1 mmHg Area (cont VTI): 2.93 cm^2 Acceleration time: 40 ms AV VTI: 31.51 cm Mean velocity: 98 cm/s Peak gradient: 8.1 mmHg Mean gradient: 4.2 mmHg LVOT diameter: 2.29 cm LVOT VTI: 22.41 cm Mitral Valve Peak E-wave: 134 cm/s Peak A-wave: 78 cm/s PHT: 76 ms E/A ratio: 1.72 Mean velocity: 81 cm/s Peak gradient: 7.18 mmHg Mean gradient: 2.9 mmHg E' lateral velocity: 13.3 cm/s Area (PHT): 2.89 cm^2 E/E' lateral: 10.08 MV PSV: 125 cm/s E/E' average: 11.13 E' septal velocity: 11 cm/s E/E' septal: 12.18 Tricuspid Valve Estimated RVSP: 35 mmHg Estimated RAP: 3 mmHg TR velocity: 285 cm/s TR gradient: 32.4 mmHg Mean velocity: 43.6 cm/s Mean gradient: 0.8 mmHg Pulmonic Valve Peak velocity: 110 cm/s Peak gradient: 4.84 mmHg Mean velocity: 70 cm/s Mean gradient: 2.2 mmHg Pv vti: 13.44 cm Estimated PASP: 35.49 mmHg Aorta/Great Vessels Aortic root (2D): 3.86 cm Descending aorta: 1.98 cm Ascending aorta: 3.6 cm LVOT diameter: 2.29 cm Procedure Note Declan Castrejon MD - 07/15/2023 Demographics Patient name: BALAJI VAZQUEZPatient ID: [id number] Gender: MaleAge: 48 year(s) Date of : 1975BMI: 27.13 kg/m^2 Height: 177 cmBSA: 2.02 m^2 Weight: 85 kgEthnicity: None Race: Procedure Information Procedure type: Echo Proc. sub type: TTE procedure: Transthoracic Echo (TTE)Complete. Start date time: 07/15/2023 3:34 PMAccession no: [id number] Patient status: RoutineVisit no: [id number] HR: 115 bpmStudy location: Portable In/Out patient: InpatientTechnical quality: Adequate Blood pressure: 120 / 77 mmHg Room no: 254N Procedure Staff Referring Physician: Declan Castrejon M.D. Business Developer: Michelle Bundy RD RVT Interpreting physician: Declan Castrejon M.D. Physician Conclusions Summary: 1. Normal left ventricular size and functionwith an estimated LVEF of 55-60%. 2. Moderate left ventricular hypertrophy. 3. Indeterminate diastolic function. 4. Normal left atrial size with a left atrialvolume index of 22 ml/m2. 5. Normal right ventricular size andfunction. 6. Mild right atrial enlargement. 7. Aortic sclerosis without stenosis. Mildaortic regurgitation. 8. Mitral annular calcification. Trivialmitral regurgitation which could be underestimated due to mitral annular calcification. 9. Mild mitral valve stenosis is present witha mean gradient of 3.9 mmHg. Mitral valve area by pressure half time method is 2.72-3.28 cm2. 10. Mild tricuspid regurgitation. 11. Normal estimated right ventricularsystolic pressure (RVSP) of 35 mmHg. 12. The ascending aorta and descending aortawere normal size. 13. The IVC is normal in size and collapsesnormal with inspiration. 14. No evidence of pericardial effusion. As compared to study dated 11/11/2022: Mild left ventricular hypertrophy now appearssevere. Left atrial size appears within normal limitson today's study. Pulmonary hypertension is not present ontoday's study. Indications Congestive heart failure. Electronically signed by Declan Castrejon M.D. (Interpreting physician)on 07/15/2023 at 4:49 PM Findings Left ventricle Normal left ventricular size and function withan estimated LVEF of 55-60%. summary: Moderate left ventricular hypertrophy. Indeterminate diastolic function. The septal e prime is 0.110 m/s, the lateral eprime is 0.133 m/s, and the left atrial volume index is 22 ml/m2. Right ventricle Normal right ventricular size and function. summary: Left atrium summary: Normal left atrial size with a left atrialvolume index of 22 ml/m2. Right atrium summary: Mild right atrial enlargement. Aortic valve summary: Aortic sclerosis without stenosis. Mild aortic regurgitation. Mitral valve summary: Mitral annular calcification. Trivial mitral regurgitation which could beunderestimated due to mitral annular calcification. Possible mild mitral valve stenosis is present witha mean gradient of 3.9 mmHg. Mitral valve area by pressure half time method is 2.72-3.28 cm2. Tricuspid valve Structurally normal tricuspid valve. summary: Mild tricuspid regurgitation. Normal estimated right ventricular systolicpressure (RVSP) of 35 mmHg. No evidence of tricuspid stenosis. Pulmonic valve Not well visualized. summary: No evidence of pulmonic regurgitation. No evidence of stenosis. Aorta/Great vessels The ascending aorta and descending aorta werenormal size. summary: The IVC is normal in size and collapses normalwith inspiration. Pericardial summary: No evidence of pericardial effusion. Pleural summary: No evidence of pleural effusion. Left Ventricle Diastolic dimension: 4.05 cm (4.2 - 5.8 cm)Systolic dimension: 2.98 cm FS:26 % 2D septum diastolic: 1.82 cm (0.6 - 1.0 cm) CO:10.61 l/min 2D post wall diastolic: 1.82 cm (0.6 - 1 cm) CI:5.25 l/min/m^2 LV mass (ASE formula): 323.69 g (88 - 224 g) LV mass index: 159.95 g/m^2 (49 - 115 g/m^2) RWT: 0.9 LV M-Mode LV Ejection Fraction LVEDV : 188.5 ml (62 - 150 ml) LVESV: 82 ml (21 - 61 ml) LVEDVI Teichholz: 93.15 ml/m^2 (34 - 74 ml/m^2) LVESVITeichholz: 40.52 ml/m^2 (11 - 31 ml/m^2) EF : 56 % LV 3D/Strain Globalstrain: 11 % Right Ventricle Diastolic dimension: 3.55 cmSystolic pressure: 35.49 mmHg TAPSE:1.63 cm (> 1.69 cm) Left Atrium LA diameter (2D): 3.98 cmLA/Aorta (2D): 1.03 Right Atrium RA area: 20.49 cm^2 RA area index: 10.13cm^2/m^2 Aortic Valve Peak velocity: 179 cm/s Mean velocity: 141 cm/s Peak gradient: 12.82 mmHg Mean gradient: 8.1 mmHg Area (cont VTI): 2.93 cm^2 Acceleration time: 40 ms AV VTI: 31.51 cm Mean velocity: 98 cm/s Peak gradient: 8.1 mmHg Mean gradient: 4.2 mmHg LVOT diameter: 2.29 cm LVOT VTI: 22.41 cm Mitral Valve Peak E-wave: 134 cm/s Peak A-wave: 78 cm/s PHT: 76 ms E/A ratio: 1.72 Mean velocity: 81 cm/s Peak gradient: 7.18mmHg Mean gradient: 2.9 mmHg E' lateral velocity: 13.3cm/s Area (PHT): 2.89 cm^2 E/E' lateral: 10.08 MV PSV: 125 cm/s E/E' average: 11.13 E' septal velocity: 11 cm/s E/E' septal: 12.18 Tricuspid Valve Estimated RVSP: 35 mmHg Estimated RAP: 3 mmHg TR velocity: 285 cm/s TR gradient: 32.4 mmHg Mean velocity: 43.6 cm/s Mean gradient: 0.8 mmHg Pulmonic Valve Peak velocity: 110 cm/s Peak gradient: 4.84 mmHg Mean velocity: 70 cm/s Mean gradient: 2.2 mmHg Pv vti: 13.44 cm Estimated PASP: 35.49 mmHg Aorta/Great Vessels Aortic root (2D): 3.86 cm Descending aorta: 1.98 cm Ascending aorta: 3.6 cm LVOT diameter: 2.29 cm us Declan Castrejon MD CV ECHO PROCEDURES Final Res ult from Last 3 Months or Most Recently Relevant to Health Maintenance Additional Health Concerns Infection Onset Date Last Indicated MRSA Comment:01/08/24: MRSA PCR + 03/22/2023 01/08/2024 Insurance [employer] MEDICARE Advance Directives For more information, please contact: [phone] (7:30 AM - 5PM [facility], 7 days a week) Documents on File Type Date Recorded Patient Bar Manager Expl anation Advance Directives and Livin g Will 08/17/2023 9:41 AM DNR * Full Code (Latest Code Status on File) Date Activated Date Inactivated Comments 01/07/2024 11:20 PM 01/10/2024 5:52 PM * Full Code Date Activated Date Inactivated Comments 10/05/2023 4:45 PM 10/06/2023 3:05 PM * DNR Date Activated Date Inactivated Comments 08/30/2023 7:19 PM 09/03/2023 7:17 PM * Full Code Date Activated Date Inactivated Comments 08/30/2023 11:19 AM 08/30/2023 7:19 PM * Full Code Date Activated Date Inactivated Comments 08/19/2023 11:40 PM 08/20/2023 10:44 PM Care Teams Fly Raiser Lockstitch Relationship Specialty Start Date End Date Ras Joy MD [address] [place] [phone] PCP - General Family Medicine 05/04/23
--- OUTSIDE RECORDS SUMMARY | 2024-10-15 06:18 | XMS_ITS | Clinical Summary ---
Author Organization [facility] Address [address] [place]: Epic Prelude ADT [address] [place] [address] Care Team Providers Care Tax Record Clerk Name Role Phone Ras Joy MD Primary Care Provider [phone] Allergies Active Allergy Reactions Criticality Noted Date Comments Lisinopril Swelling Low 08/20/2021 Penicillins Rash,Itching,Other (See Comments) Low 0 05/12/2018 Tramadol Itching Low 05/03/2019 Medications sucroferric oxyhydroxide (Velphoro) 500 mg Tablet, Chewable Take 1,500 mg by mouth 3 times daily. If he has a snack he will take 2-[address] Pillai Active vit B,L-SQ-mhew-selen-v it D3-E (RenaPlex-D) 800 mcg-12.5 mg -2,000 [...] heart failure and end stage renal disease ([facility]) Take 1 Tablet (120 mg) by mouth daily in the morning. 90 Tablet 1 03/04/20 23 Active ondansetron (ZOFRAN) 4 mg TabletIndications:E SRD (end stage renal disease) ([facility]) TAKE 1 TABLET BY MOUTH EVERY 4-6 HOURS NEEDED FOR NAUSEA 60 Tablet 03/04/20 Active Additional Information Patient not taking.Reported on 03/11/2024 ferrous sulfate 325 mg (65 mg iron) tabletIndications:E SRD (end stage renal disease) ([facility]) Take 65 mg by mouth daily with breakfast. Active ipratropium-albuter oL (DUONEB) 0.5 mg-3 mg(2.5 mg base)/3 mL Solution for NebulizationIndicat ions:Panlobular emphysema ([facility]) Take 3 mL by inhalation every 6 hours as needed for Shortness of Breath, Wheezing or Respiration. 90 mL 03/04/20 Active oxygen home deliveryIndications :Chronic respiratory failure with hypoxia ([facility]),Panlobula r emphysema ([facility]) Home Oxygen Concentrator yes at 3 L/M [...] 40 mg tabletIndications:C hronic diastolic heart failure ([facility]),History of hemorrhagic cerebrovascular accident (CVA) without residual [...] Encounters Date Type Department Care Team Description 09/27/2024 External Device Data [facility]STRACTION Provider, Abstract 09/27/2024 External Device Data [facility]CTION Provider, Abstract 09/22/[address] [phone] Ras Joy MD Information 09/21/2024 7:00 AM CDT - 09/21/2024 11:59 PM CDT Hospital Encounter [facility] Emergency Medical Services [place] [address] [phone] Ambulance, [facility] Discharge Disposition: Home or Self Care 09/21/2024 Orders Only [facility] Health Information Management [place] [address] [place] [address] Provider, Abstract 09/16/2024 Telephone [facility] [address] [place] [address] Amanda Molina NP Hospital Follow Up 09/05/2024 Telephone [facility] [address] [place] [address] Ras Joy MD Hospital Follow Up 08/30/2024 External Device Data [facility] Provider, Abstract 08/30/2024 External Device Data [facility] Provider, Abstract 08/30/2024 External Device Data [facility] Provider, Abstract 08/29/2024 Telephone [facility] [address] [address] Ras Joy MD Ed Follow-up 08/28/2024 12:24 AM CDT - 08/28/2024 5:54 AM CDT Emergency [facility] Emergency Medicine [address] [facility] [address] [place] [address] Kb Gonzalez MD Dyspnea, unspecified type (Primary Dx) Discharge Disposition: Home or Self Care 08/28/2024 Travel 08/27/2024 - 08/27/2024 11:59 PM CDT Hospital Encounter [facility] Emergency Medical Services [place] [address] [facility] [address] [place] [phone] Ambulance, [facility] Discharge Disposition: [facility] 08/26/2024 Telephone [facility] [address] [phone] Amanda Molina NP rescheduling appt 08/18/2024 External Device Data [facility] Provider, Abstract 08/03/2024 Refill [facility] [address] [place] [address] Ras Joy MD Panlobular emphysema (CMS/HCC) from Last 3 Months Immunizations Immunization Administration [...] drink = 0.6 oz pur e alcohol) Sex and Gender Information Value Date Recorded Sex Assigned at Not on file 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 Gender Identity Not on file Sexual Orientation [...] Description 12/21/2024 1:40 PM CDT Office Visit [address] [phone] Ras Joy MD [address] [phone] Health Maintenance Due Date Last Done Comments [...] VACCINE (1 of 2) 2023 Medicare [place]age [place]) Preventative Visit/Annual Wellness Visit 03/30/2024 02/24/2022 INFLUENZA VACCINE (#1) 2024 , 01/29/2023, 12/28/2021, Additional history exists Abdominal Aortic Aneurysm (A AA) Screening Completed 08/02/2023 Medical Devices Implanted Type Area Director Of Revenue Device Identifier Shelf Expiration Date Model / Serial / Lot Catheter Catheter Chest Cath Dialysis Gl[employer]path 14.5fr 27cm Std [id number] Implanted:Qty : 1 on 02/25/2021 by Raffi Mckinnon MD Catheter Left: Chest CR [employer] 06/27/2022 [id number] / / [id number] Procedures Procedure Name Priority Date/Time Associated Diagnosis Comments COMPREHENSIVE METABOLIC PANEL Routine 09/21/2024 2:04 PM CDT TROPONIN 2 HR, 5TH GEN Timed Study [...] Recently Relevant to Health Maintenance Results * COMPREHENSIVE METABOLIC PANEL (09/21/2024 2:04 PM CDT) Only the most recent of2 resultswithin the time period is included. Blood us Abstract Provider CHEMISTRY ORDERABLES Final Res ult * (ABNORMAL) TROPONIN 2 HR, 5TH GEN (08/28/2024 2:32 AM CDT) TROPONIN T, 2 HR 5TH GEN 69(H) <=15 ng/L 08/28/2024 3:00 AM CDT [facility] DELTA 2HR TROPONIN T -2 See Interp. 08/28/2024 3:00 AM CDT [facility] Blood Venipuncture / Unknown 08/28/2024 2:32 AM CDT 08/28/2024 2:43 AM CDT Narrative [facility] - 08/28/2024 3:00 AM CDT Troponin elevated. Delta not changing. us Kb Gonzalez MD CHEMISTRY ORDERABLES Final Result [facility] CLIA # [id number] [address] [place] [address] * EKG 12 lead (08/28/2024 1:55 AM CDT) Narrative Kb Gonzalez MD - 08/28/2024 1:55 AM CDT Kb Gonzalez MD 08/28/2024 3:24 AM EKG 12 lead Date/Time: 08/28/2024 1:55 AM Performed by: Kb Gonzalez MD Authorized by: Kb Gonzalez MD ECG interpreted by ED Physician in the absence of a machine i cutter: yes Rate: ECG rate assessment: age appropriate Rhythm: Rhythm Origin: atrial Rhythm morphology: fibrillation Ectopy: Ectopy origin: PVCs [place]: QRS axis: Right Hypertrophy: LVH Comments: EKG [...] pathology is appreciated. Procedure Note Endy Cobian, - 08/28/2024 Exam: XR CHEST PA OR [...] 71(H) <=15 ng/L 08/28/2024 1:00 AM CDT [facility] Blood BLOOD SPECIMEN / Unknown Collection / Unknown 08/28/2024 12:32 AM CDT 08/28/2024 12:42 AM CDT Narrative [facility] - 08/28/2024 1:00 AM CDT Troponin elevated. us Kb Gonzalez MD CHEMISTRY ORDERABLES Final Result [facility] CLIA # [id number] [address] [place] [address] * (ABNORMAL) CBC WITH DIFFERENTIAL (08/28/2024 12:32 AM CDT) WBC 7.1 4.2 - 9.1 K/uL 08/28/2024 12:45 AM [facility] RBC 3.82(L) 4.63 - 6.08 M/uL 08/28/2024 12:45 AM [facility] HEMOGLOBIN 12.4(L) 13.7 - 17.5 g/dL 08/28/2024 12:45 AM [facility] HEMATOCRIT 38.5(L) 40.1 - 51.0 % 08/28/2024 12:45 AM [facility] MCV 100.8(H) 79.0 - 92.2 fL 08/28/2024 12:45 AM [facility] MCH 32.5(H) 25.7 - 32.2 pg 08/28/2024 12:45 AM [facility] MCHC 32.2(L) 32.3 - 36.5 g/dL 08/28/2024 12:45 AM [facility] RDW 14.2 11.0 - 14.5 % 08/28/2024 12:45 AM [facility] RDW-STDEV 52.0 36.9 - 56.9 fL 08/28/2024 12:45 AM [facility] PLATELETS 239 130 - 400 K/uL 08/28/2024 12:45 AM [facility] MPV 9.7(L) 10.0 - 14.8 fL 08/28/2024 12:45 AM [facility] NEUTROPHILS 64 34 - 68 % 08/28/2024 12:45 AM [facility] LYMPHOCYTES 16(L) 22 - 53 % 08/28/2024 12:45 AM [facility] MONOCYTES 12 5 - 12 % 08/28/2024 12:45 AM [facility] EOSINOPHILS 7 1 - 7 % 08/28/2024 12:45 AM [facility] BASOPHILS 1 0 - 1 % 08/28/2024 12:45 AM [facility] IMMATURE GRANULOCYTES 0 % 08/28/2024 12:45 AM [facility] NEUTROPHIL ABSOLUTE 4.57 1.78 - 5.38 K/uL 08/28/2024 12:45 AM [facility] LYMPHOCYTE ABSOLUTE 1.15(L) 1.20 - 3.40 K/uL 08/28/2024 12:45 AM [facility] MONOCYTE ABSOLUTE 0.84(H) 0.30 - 0.82 K/uL 08/28/2024 12:45 AM [facility] EOSINOPHIL ABSOLUTE 0.46 0.04 - 0.54 K/uL 08/28/2024 12:45 AM [facility] BASOPHILS ABSOLUTE 0.07 0.01 - 0.08 K/uL 08/28/2024 12:45 AM [facility] IMMATURE GRANULOCYTES ABSOLUTE 0.01 K/uL 08/28/2024 12:45 AM [facility] Blood BLOOD SPECIMEN / Unknown Collection / Unknown 08/28/2024 12:32 AM CDT 08/28/2024 12:42 AM CDT Kb Gonzalez MD HEMATOLOGY ORDERABLES Final Result [facility] CLIA # [id number] [address] [place] [address] * (ABNORMAL) D-DIMER (08/28/2024 12:32 AM CDT) D-DIMER QUANT 1.64(H) <0.50 ug/mL FEU 08/28/2024 1:00 AM T [facility] Blood BLOOD SPECIMEN / Unknown Collection / Unknown 08/28/2024 12:32 AM CDT 08/28/2024 12:42 AM CDT Narrative [facility] - 08/28/2024 1:00 AM CDT D-Dimer assay [...] ug/mL FEU 71-80 years: 0.71-0.80 ug/mL FEU Kb Gonzalez MD HEMATOLOGY ORDERABLES Final Result [facility] CLIA # [id number] [address] [place] [address] * (ABNORMAL) BRAIN NATRIURETIC PEPTIDE, BNP OR PROBNP (08/28/2024 12:32 AM CDT) PROBNP, N TERMINAL 48,180(H) 0 - 125 pg/mL 08/28/2024 1:16 AM CDT [facility] Comment: INTERPRETIVE COMMENT based on diagnosis: Diagnostic [...] 12:32 AM CDT 08/28/2024 12:51 AM CDT Kb Gonzalez MD CHEMISTRY ORDERABLES Final Result Performing Organization Address City/[facility] Co de Phone Number [facility] CLIA # [id number] [address] [place] [address] * HEMOGLOBIN A1C (01/10/2019 9:33 PM CDT) HEMOGLOBIN A1C 5.4 <=5.6 % 01/11/2019 12:59 AM CDT [facility] EST. AVG GLUCOSE, A1C 108 mg/dL 01/11/2019 12:59 AM CDT [facility] Blood Collection / Unknown 01/10/2019 9:33 PM CDT 01/11/2019 12:05 AM CDT Narrative [facility] - 01/11/2019 12:59 AM CDT HGB A1C INTERPRETATION NORMAL: <5.7% PRE-DIABETES: 5.7 - 6.4% DIABETES: 6.5% OR GREATER Ras Joy MD CHEMISTRY ORDERABLES Nancy l Result Performing Organization Address [facility] Co de Phone Number [facility] CLIA # [id number] [address] [place] [address] [facility] CLIA # [id number] [address] [place] [address] from Last 3 Months or Most Recently Relevant to Health Maintenance Insurance [employer] DUAL COMPLETE PPO DSNP [facility] [id number] Advance Directives For more information, please contact: [phone] * NO CPR (In Event of Cardiopulmonary Arrest) (Latest Code Status on File) Date Activated Date Inactivated Comments 12/09/2023 12:43 PM 01/14/2024 3:03 PM Question Answer Comments Mechanical Ventilation (for respiratory distress) - Invasive (i.e. intubation): No Mechanical Ventilation (for respiratory distress) - Non-Invasive (i.e. BiPAP, CPAP): Yes Care Teams Tax Record Clerk Relationship Specialty Start Date End Date Ras Joy MD [address] [address] PCP - General Family Practice 03/04/23
--- OUTSIDE RECORDS SUMMARY | 2024-10-15 06:20 | XMS_ITS | Encounter Summary ---
Author Organization [facility] Address [address] [place] [address] Phone Care Team Providers Care Real Estate Services Administrator Name Role Phone Lida Woods MD Primary Care Provider UnaRas Uriarte MD Primary Care Provider [phone] Reason for Visit * Reason Onset Date Comments Med Refill 10/27/2022 Encounter Details Date Type Department Care Team (Late st Contact Info) Description 10/27/2022 Refill MED TELE [address] [place] [phone] Michele Cage MD [address] [place] [address] [phone] Social History Tobacco Use Types Packs/Day Years Used Date Smoking Tobacco: Every Day Cigarettes Smokeless Tobacco: Never Alcohol Use Standard Drinks/Week Comments Never 0 (1 standard drink = 0.6 oz pur e alcohol) Sex and Gender Information Value Date Recorded Sex Assigned at Not on file Legal Sex Male 5:49 AM CDT Gender Identity Male 01/22/2021 8:09 AM CDT Sexual Orientation Not on file documented as of this encounter Functional Status * Are you deaf or do you have serious difficulty hearing? Answer Date of Assessment Author No 09/10/2022 9:22 AM CDT Belia Mcgarry BSN,RN * Are you blind or do you have serious difficulty seeing, even when wearing glasses? Answer Date of Assessment Author No 09/10/2022 9:22 AM Belia Daly BSN,RN * Do you have serious difficulty walking or climbing stairs? Answer Date of Assessment Author No 09/10/2022 9:22 AM Belia Daly BSN, RN * Do you have serious difficulty dressing or bathing? Answer Date of Assessment Author No 09/10/2022 9:22 AM Belia Daly BSN, RN * Because of a physical, mental, or emotional condition, do you have serious difficulty doing errandsalone such as visiting the doctor? Answer Date of Assessment Author No 09/10/2022 9:22 AM Belia Daly BSN, RN documented as of this encounter Mental Status * Because of a physical, mental, or emotional condition, do you have serious difficulty concentrating, remembering, or making decisions? (5 years old or older) Answer Entry Date Author No 09/10/2022 9:22 AM Belia Daly BSN, RN documented in this encounter Plan of Treatment Upcoming Encounters Date Type Department Care Team (Late st Contact Info) Description 11/24/2024 10:30 AM CDT Office Visit [facility] [address] [place], [place] [phone] Guy Davenport MD [address] [place] [address], [address] [place] [address] documented as of this encounter Visit Diagnoses Not on filedocumented in this encounter Additional Health Concerns Infection Onset Date Last Indicated Resolved Time COVID-19 Rule-Out 11/10/2022 11/10/2022 11/10/2022 11:49 AM CDT COVID-19 Rule-Out 02/23/2023 02/23/2023 02/23/2023 6:24 AM CLINICAL TRAINING SPECIALIST COVID-19 Rule-Out 02/23/2023 02/23/2023 02/23/2023 8:27 AM CLINICAL TRAINING SPECIALIST MRSA Comment:01/08/24: MRSA PCR + 03/22/2023 01/08/2024 COVID-19 Rule-Out 07/12/2023 07/12/2023 07/12/2023 6:24 AM CDT COVID-19 Rule-Out 07/30/2023 07/30/2023 07/30/2023 12:45 AM CDT COVID-19 Rule-Out 07/31/2023 07/31/2023 07/31/2023 3:26 PM CDT COVID-19 Rule-Out 01/07/2024 01/07/2024 01/07/2024 6:10 PM CDT COVID-19 Rule-Out 09/16/2024 09/16/2024 09/16/2024 9:01 AM CDT documented as of this encounter Care Teams Real Estate Services Administrator Relationship Specialty Start Date End Date Lida Woods MD [address] [address] PCP - General Family Medicine 09/02/22 Ras Joy MD [address] [address] PCP - General Family Medicine 05/04/23 documented as of this encounter
--- OUTSIDE RECORDS SUMMARY | 2024-10-15 06:20 | XMS_ITS ---
Author Organization [facility] ([facility]) Address [address] [address] Care Team Providers Care Crew Member Name Role Phone Unavailable Unavailable Unavailable Allergies, Adverse Reactions, Alerts Allergy Name Allergy Type Status Severity Reaction(s) Onset Date Inactive Date Treating Clinician Comments Tramadol Allergy Active Moderate Allergy 2021-12 19:53:1 8 LIsinopril Allergy Active Moderate Allergy 2021-12 19:52:4 9 Penicillin G Allergy Active Moderate Allergy 2021-12 19:51:5 3 Medications Ordered Medication Name Filled Medication Name Start Date Stop Date Current Medication? Ordering Clinician Indication Dosage Frequency Signature (SIG) Comments Components calcitriol 09-20 19:54: 31 Yes [id number] Number of Repeats Allowed: Frequency: Three times a week Mircera 09-17 05:00: 00 Yes [id number] Number of Repeats Allowed: Frequency: RAYMUNDO dosing, every four weeks Venofer 09-12 10:02: 51 Yes [id number] Number of Repeats Allowed: Frequency: One time a weekDosesO rdered: Maintenanc e Dose 50 Milligram Route: Intravenou s ONS [facility] 08-03 19:15: 47 Yes [id number] Number of Repeats Allowed: Frequency: Every Dialysis Treatment cinacalcet hydrochlori de 07-28 05:00: 00 Yes [id number] Number of Repeats Allowed: Frequency: Three times a week heparin sodium, porcine 2021-03 17:20: 53 Yes [id number] Number of Repeats Allowed: Frequency: Every Dialysis TreatmentD osesOrdere d: Post CVC Instillati on 2000 Units 1:1000 Units/mLRo [place]: Intracathe terDosesOr dered: Post CVC Instillati on 2000 Units 1:1000 Units/mLRo [place]: Intracathe ter Normal Saline Solution 0.9% NaCl 2021-03 21:47: 22 Yes [id number] Number of Repeats Allowed: Frequency: As needed Nitrostat 2021-03 21:47: 07 Yes [id number] Number of Repeats Allowed: Frequency: Every 5 minutes as needed ondansetron hydrochlori de 2021-03 21:46: 43 Yes [id number] Number of Repeats Allowed: Frequency: Every 4 hours as needed loperamide hydrochlori de 2021-03 21:46: 11 Yes [id number] Number of Repeats Allowed: Frequency: Every 4 hours as needed diphenhydra mine hydrochlori de 2021-03 21:45: 38 Yes [id number] Number of Repeats Allowed: Frequency: Every 30 minutes as needed clonidine 2021-03 21:43: 54 Yes [id number] Number of Repeats Allowed: Frequency: Every 4 hours as needed acetaminoph en 2021-03 21:42: 34 Yes [id number] Number of Repeats Allowed: Frequency: Every 4 hours as needed Oxygen 2021-03 21:41: 42 Yes [id number] Number of Repeats Allowed: Frequency: As needed Normal Saline Solution 0.9% NaCl 2021-03 21:39: 28 Yes [id number] Number of Repeats Allowed: Frequency: Post-dialy sisDosesOr dered: Arterial Lumen 10 mL Route: Intracathe terDosesOr dered: Venous Lumen 10 mL Route: Intracathe ter Normal Saline Solution 0.9% NaCl 2021-03 21:39: 04 Yes [id number] Number of Repeats Allowed: Frequency: Pre-dialys isDosesOrd ered: Arterial Lumen 10 mL Route: Intracathe terDosesOr dered: Venous Lumen 10 mL Route: Intracathe ter heparin sodium, porcine 2021-03 21:38: 40 Yes [id number] Number of Repeats Allowed: Frequency: Every Dialysis TreatmentD osesOrdere d: Loading Dose 2000 Units 1:1000 Units/mLRo [place]: Intravenou s heparin sodium, porcine 2021-03 017 21:38: 39 Yes [id number] Number of Repeats Allowed: Frequency: Every Dialysis TreatmentD osesOrdere d: Hourly Dose 500 Units/Hr 1:1000 Units/mLRo [place]: Intravenou s Problems This patient has no known problems. Procedures Procedure Date / Time Performed Performing Clinician Roopa kelvin Details Central Venous Catheter (CVC) 2023-10-22 05:00:00 Access Site Chest (Right) Access Use Start Date 2023-10-26 05:00:0 0 Access Use End Date 2023-10-23 05:00:00 Central Venous Catheter (CVC)2023-10-22 05:00:00 Access Site Chest (Right) Access Use Start Date 2023-10-26 05:00:0 0 Central Venous Catheter (CVC)2023-03-27 06:00:00 Access Site Chest (Right) Access Use Start Date 2023-03-30 06:00:0 0 Access Use End Date 2023-10-22 05:00:00 Central Venous Catheter (CVC)2021-11-28 05:00:00 Access Site Other Access Use End Date 2023-03-27 06:00:00 DIALYSIS TREATMENT INFORMATION Conventional Hemodialysis Date Type Treatment Start Date Treatment End Date Pre-Treatment Vitals Post-Treatment Vitals Weight Gain BFR DFR Actual UF Dialysis Access October 12, 2024 In-Ce nter Hemod ialys is Treat ment 2024-10-12 T10:53:05. 000Z 2024-10-12 T12:53:00. 000Z BP Sitting (Pre-Dialysis) 163/129 mmHg BP Sitting (Post-D ialysis ) 167/ 117 mmHg Sitting Heart Rate Pre-Dialysis 120 BPM Sitting H eart Rate Post-Dialysis 101 BPM Temperature Pre-Dialysis 98.1 degF Temperature Post -Dialysis 97 degF October 10, 2024 In-Center Hemodialysis Treatment 9201-35-73P59:41:38.000Z 7691-83-41R31:00:58.000Z BP Sitting (Pre-Dialysis) 177/126 mmHg BP Sitting (Post-Dialysis) 178/113 mmHg Concurrent Access: falseCentral Venous Catheter (CVC) Chest (Right) Arterial Sitting Heart Rate Pre-Dialysis 69 BPM Sitting H eart Rate Post-Dialysis 86 BPM Temperature Pre-Dialysis 98.1 degF October 07, 2024 In-Center Hemodialysis Treatment 9399-76-98L56:51:21.000Z 6587-10-89O06:39:12.000Z BP Sitting (Pre-Dialysis) 137/109 mmHg BP Sitting (Post-Dialysis) 164/115 mmHg Concurrent Access: falseCentral Venous Catheter (CVC) Chest (Right) Arterial Sitting Heart Rate Pre-Dialysis 96 BPM Sitting H eart Rate Post-Dialysis 87 BPM Temperature Pre-Dialysis 97.7 degF Temperature Post -Dialysis 97.7 degF October 05, 2024 In-Center Hemodialysis Treatment 4215-65-43V30:43:48.000Z 7293-94-75H68:36:33.000Z BP Sitting (Pre-Dialysis) 165/126 mmHg BP Sitting (Post-Dialysis) 121/105 mmHg Concurrent Access: falseCentral Venous Catheter (CVC) Chest (Right) Arterial Sitting Heart Rate Pre-Dialysis 94 BPM Sitting H eart Rate Post-Dialysis 113 BPM Temperature Pre-Dialysis 97.7 degF Temperature Post -Dialysis 97.3 degF September 30, 2024 In-Center Hemodialysis Treatment 6688-87-31X40:53:59.000Z 2104-46-24B73:45:04.000Z BP Sitting (Pre-Dialysis) 99/82 mmHg BP Sitting (Post-Dialysis) 162/117 mmHg Concurrent Access: falseCentral Venous Catheter (CVC) Chest (Right) Arterial Sitting Heart Rate Pre-Dialysis 87 BPM Sitting H eart Rate Post-Dialysis 77 BPM Temperature Pre-Dialysis 97.5 degF Temperature Post -Dialysis 97 degF September 28, 2024 In-Center Hemodialysis Treatment 3618-25-42I02:47:50.000Z 9785-06-15K49:05:50.000Z BP Sitting (Pre-Dialysis) 155/125 mmHg BP Sitting (Post-Dialysis) 161/101 mmHg Concurrent Access: falseCentral Venous Catheter (CVC) Chest (Right) Arterial Sitting Heart Rate Pre-Dialysis 146 BPM Sitting H eart Rate Post-Dialysis 86 BPM Temperature Pre-Dialysis 97.2 degF Temperature Post -Dialysis 97.3 degF September 26, 2024 In-Center Hemodialysis Treatment 4338-86-19X61:49:54.000Z 3681-51-20V28:59:44.000Z BP Sitting (Pre-Dialysis) 87/46 mmHg BP Sitting (Post-Dialysis) 188/139 mmHg Concurrent Access: falseCentral Venous Catheter (CVC) Chest (Right) Arterial Sitting Heart Rate Pre-Dialysis 87 BPM Sitting H eart Rate Post-Dialysis 113 BPM Temperature Pre-Dialysis 97.3 degF Temperature Post -Dialysis 97.2 degF September 21, 2024 In-Center Hemodialysis Treatment 1088-79-40Q03:48:33.000Z 2279-23-60S61:27:19.000Z BP Sitting (Pre-Dialysis) 183/136 mmHg BP Sitting (Post-Dialysis) 188/109 mmHg Concurrent Access: falseCentral Venous Catheter (CVC) Chest (Right) Arterial Sitting Heart Rate Pre-Dialysis 127 BPM Sitting H eart Rate Post-Dialysis 133 BPM Temperature Pre-Dialysis 98.3 degF Temperature Post -Dialysis 97.2 degF September 19, 2024 In-Center Hemodialysis Treatment 8622-46-72S93:53:47.000Z 9545-94-36Y28:56:24.000Z BP Sitting (Pre-Dialysis) 127/94 mmHg BP Sitting (Post-Dialysis) 158/105 mmHg Concurrent Access: falseCentral Venous Catheter (CVC) Chest (Right) Arterial Sitting Heart Rate Pre-Dialysis 106 BPM Sitting H eart Rate Post-Dialysis 100 BPM Temperature Pre-Dialysis 97.2 degF Temperature Post -Dialysis 97.6 degF September 16, 2024 In-Center Hemodialysis Treatment 0561-41-22H89:49:39.000Z 1319-06-88X03:38:09.000Z BP Sitting (Pre-Dialysis) 166/103 mmHg BP Sitting (Post-Dialysis) 153/107 mmHg Concurrent Access: falseCentral Venous Catheter (CVC) Chest (Right) Arterial Sitting Heart Rate Pre-Dialysis 108 BPM Sitting H eart Rate Post-Dialysis 94 BPM Temperature Pre-Dialysis 98.1 degF Temperature Post -Dialysis 97 degF September 14, 2024 In-Center Hemodialysis Treatment 8290-30-02O78:48:13.000Z 4298-14-68O72:40:38.000Z BP Sitting (Pre-Dialysis) 131/90 mmHg BP Sitting (Post-Dialysis) 136/115 mmHg Concurrent Access: falseCentral Venous Catheter (CVC) Chest (Right) Arterial Sitting Heart Rate Pre-Dialysis 130 BPM Sitting H eart Rate Post-Dialysis 99 BPM Temperature Pre-Dialysis 96.8 degF Temperature Post -Dialysis 96.6 degF September 12, 2024 In-Center Hemodialysis Treatment 2112-82-40H92:14:24.000Z 7782-94-03Y03:04:15.000Z BP Sitting (Pre-Dialysis) 157/117 mmHg BP Sitting (Post-Dialysis) 171/98 mmHg Concurrent Access: falseCentral Venous Catheter (CVC) Chest (Right) Arterial Sitting Heart Rate Pre-Dialysis 106 BPM Sitting H eart Rate Post-Dialysis 106 BPM Temperature Pre-Dialysis 99.1 degF Temperature Post -Dialysis 98.2 degF September 09, 2024 In-Center Hemodialysis Treatment 0283-84-72L10:44:02.000Z 0149-75-12O32:23:32.000Z BP Sitting (Pre-Dialysis) 166/94 mmHg BP Sitting (Post-Dialysis) 117/84 mmHg Concurrent Access: falseCentral Venous Catheter (CVC) Chest (Right) Arterial Sitting Heart Rate Pre-Dialysis 113 BPM Sitting H eart Rate Post-Dialysis 85 BPM Temperature Pre-Dialysis 98 degF Temperature Post -Dialysis 96.9 degF September 05, 2024 In-Center Hemodialysis Treatment 4080-84-12H39:42:50.000Z 9826-99-59V98:31:46.000Z BP Sitting (Pre-Dialysis) 157/125 mmHg BP Sitting (Post-Dialysis) 111/66 mmHg Concurrent Access: falseCentral Venous Catheter (CVC) Chest (Right) Arterial Sitting Heart Rate Pre-Dialysis 127 BPM Sitting H eart Rate Post-Dialysis 103 BPM Temperature Pre-Dialysis 97.4 degF Temperature Post -Dialysis 97.2 degF September 02, 2024 In-Center Hemodialysis Treatment 7840-00-80A66:57:46.000Z 4198-11-77L20:51:16.000Z BP Sitting (Pre-Dialysis) 97/61 mmHg BP Sitting (Post-Dialysis) 131/84 mmHg Concurrent Access: falseCentral Venous Catheter (CVC) Chest (Right) Arterial Sitting Heart Rate Pre-Dialysis 95 BPM Sitting H eart Rate Post-Dialysis 95 BPM Temperature Pre-Dialysis 97.5 degF Temperature Post -Dialysis 97.2 degF August 31, 2024 In-Center Hemodialysis Treatment 6247-57-61J39:50:10.000Z 3327-22-17P37:27:10.000Z BP Sitting (Pre-Dialysis) 138/115 mmHg BP Sitting (Post-Dialysis) 137/99 mmHg Concurrent Access: falseCentral Venous Catheter (CVC) Chest (Right) Arterial Sitting Heart Rate Pre-Dialysis 99 BPM Sitting H eart Rate Post-Dialysis 95 BPM Temperature Pre-Dialysis 97.4 degF Temperature Post -Dialysis 97.3 degF August 29, 2024 In-Center Hemodialysis Treatment 7004-52-05Y68:33:07.000Z 6189-68-79K77:51:34.000Z BP Sitting (Pre-Dialysis) 123/91 mmHg BP Sitting (Post-Dialysis) 127/80 mmHg Concurrent Access: falseCentral Venous Catheter (CVC) Chest (Right) Arterial Sitting Heart Rate Pre-Dialysis 125 BPM Sitting H eart Rate Post-Dialysis 100 BPM Temperature Pre-Dialysis 97.2 degF Temperature Post -Dialysis 97.2 degF August 26, 2024 In-Center Hemodialysis Treatment 2363-56-08Z99:48:45.000Z 0085-35-69L64:36:45.000Z BP Sitting (Pre-Dialysis) 125/96 mmHg BP Sitting (Post-Dialysis) 126/87 mmHg Concurrent Access: falseCentral Venous Catheter (CVC) Chest (Right) Arterial Sitting Heart Rate Pre-Dialysis 108 BPM Sitting H eart Rate Post-Dialysis 104 BPM Temperature Pre-Dialysis 96.9 degF Temperature Post -Dialysis 97.4 degF August 24, 2024 In-Center Hemodialysis Treatment 8185-22-83W78:39:48.000Z 6886-15-57K32:14:08.000Z BP Sitting (Pre-Dialysis) 125/104 mmHg BP Sitting (Post-Dialysis) 104/70 mmHg Concurrent Access: falseCentral Venous Catheter (CVC) Chest (Right) Arterial Sitting Heart Rate Pre-Dialysis 138 BPM Sitting H eart Rate Post-Dialysis 104 BPM Temperature Pre-Dialysis 97.3 degF Temperature Post -Dialysis 97.3 degF August 22, 2024 In-Center Hemodialysis Treatment 1558-01-35P38:53:42.000Z 6239-17-68I37:41:12.000Z BP Sitting (Pre-Dialysis) 144/119 mmHg BP Sitting (Post-Dialysis) 197/124 mmHg Concurrent Access: falseCentral Venous Catheter (CVC) Chest (Right) Arterial Sitting Heart Rate Pre-Dialysis 120 BPM Sitting H eart Rate Post-Dialysis 120 BPM Temperature Pre-Dialysis 97 degF Temperature Post -Dialysis 96.9 degF August 19, 2024 In-Center Hemodialysis Treatment 8300-20-72W61:36:55.000Z 5114-90-48Y64:24:21.000Z BP Sitting (Pre-Dialysis) 160/110 mmHg BP Sitting (Post-Dialysis) 118/97 mmHg Concurrent Access: falseCentral Venous Catheter (CVC) Chest (Right) Arterial Sitting Heart Rate Pre-Dialysis 120 BPM Sitting H eart Rate Post-Dialysis 106 BPM Temperature Pre-Dialysis 96.7 degF Temperature Post -Dialysis 96.9 degF August 17, 2024 In-Center Hemodialysis Treatment 5853-29-10V37:43:39.000Z 2903-13-66Y78:31:40.000Z BP Sitting (Pre-Dialysis) 177/114 mmHg BP Sitting (Post-Dialysis) 133/99 mmHg Concurrent Access: falseCentral Venous Catheter (CVC) Chest (Right) Arterial Sitting Heart Rate Pre-Dialysis 105 BPM Sitting H eart Rate Post-Dialysis 104 BPM Temperature Pre-Dialysis 97.6 degF Temperature Post -Dialysis 97.1 degF August 15, 2024 In-Center Hemodialysis Treatment 4305-87-85K70:50:37.000Z 8126-09-60L29:53:03.000Z BP Sitting (Pre-Dialysis) 130/105 mmHg BP Sitting (Post-Dialysis) 116/86 mmHg Concurrent Access: falseCentral Venous Catheter (CVC) Chest (Right) Arterial Sitting Heart Rate Pre-Dialysis 140 BPM Sitting H eart Rate Post-Dialysis 112 BPM Temperature Pre-Dialysis 97 degF Temperature Post -Dialysis 97 degF August 12, 2024 In-Center Hemodialysis Treatment 0044-28-39O60:46:47.000Z 4581-50-74B76:38:47.000Z BP Sitting (Pre-Dialysis) 166/130 mmHg BP Sitting (Post-Dialysis) 165/91 mmHg Concurrent Access: falseCentral Venous Catheter (CVC) Chest (Right) Arterial Sitting Heart Rate Pre-Dialysis 139 BPM Sitting H eart Rate Post-Dialysis 114 BPM Temperature Pre-Dialysis 97 degF August 10, 2024 In-Center Hemodialysis Treatment 3942-17-29V99:10:08.000Z 8759-18-56U39:56:33.000Z BP Sitting (Pre-Dialysis) 133/108 mmHg BP Sitting (Post-Dialysis) 103/82 mmHg Concurrent Access: falseCentral Venous Catheter (CVC) Chest (Right) Arterial Sitting Heart Rate Pre-Dialysis 128 BPM Sitting H eart Rate Post-Dialysis 87 BPM Temperature Pre-Dialysis 96.9 degF Temperature Post -Dialysis 97 degF August 08, 2024 In-Center Hemodialysis Treatment 1018-55-17F13:40:27.000Z 4333-73-30Y82:31:17.000Z BP Sitting (Pre-Dialysis) 172/105 mmHg BP Sitting (Post-Dialysis) 106/83 mmHg Concurrent Access: falseCentral Venous Catheter (CVC) Chest (Right) Arterial Sitting Heart Rate Pre-Dialysis 120 BPM Sitting H eart Rate Post-Dialysis 98 BPM Temperature Pre-Dialysis 97.7 degF Temperature Post -Dialysis 98.7 degF August 05, 2024 In-Center Hemodialysis Treatment 8200-65-94J92:44:29.000Z 1986-71-04X30:34:59.000Z BP Sitting (Pre-Dialysis) 118/89 mmHg BP Sitting (Post-Dialysis) 126/112 mmHg Concurrent Access: falseCentral Venous Catheter (CVC) Chest (Right) Arterial Sitting Heart Rate Pre-Dialysis 104 BPM Sitting H eart Rate Post-Dialysis 101 BPM Temperature Pre-Dialysis 97.2 degF Temperature Post -Dialysis 97 degF August 03, 2024 In-Center Hemodialysis Treatment 4750-73-26Q46:43:42.000Z 4012-90-61K86:46:43.000Z BP Sitting (Pre-Dialysis) 139/101 mmHg BP Sitting (Post-Dialysis) 137/109 mmHg Concurrent Access: falseCentral Venous Catheter (CVC) Chest (Right) Arterial Sitting Heart Rate Pre-Dialysis 157 BPM Sitting H eart Rate Post-Dialysis 111 BPM Temperature Pre-Dialysis 97.1 degF Temperature Post -Dialysis 97 degF August 01, 2024 In-Center Hemodialysis Treatment 4142-04-78S60:57:35.000Z 7208-53-42Q16:46:05.000Z BP Sitting (Pre-Dialysis) 117/85 mmHg BP Sitting (Post-Dialysis) 145/102 mmHg Concurrent Access: falseCentral Venous Catheter (CVC) Chest (Right) Arterial Sitting Heart Rate Pre-Dialysis 128 BPM Sitting H eart Rate Post-Dialysis 98 BPM Temperature Pre-Dialysis 97 degF Temperature Post -Dialysis 97 degF July 29, 2024 In-Center Hemodialysis Treatment 4467-67-33R34:45:50.000Z 8852-87-93E04:30:20.000Z BP Sitting (Pre-Dialysis) 164/110 mmHg BP Sitting (Post-Dialysis) 144/113 mmHg Concurrent Access: falseCentral Venous Catheter (CVC) Chest (Right) Arterial Sitting Heart Rate Pre-Dialysis 120 BPM Sitting H eart Rate Post-Dialysis 117 BPM Temperature Pre-Dialysis 97.5 degF July 27, 2024 In-Center Hemodialysis Treatment 1204-00-05O15:52:33.000Z 5693-47-32T01:43:34.000Z BP Sitting (Pre-Dialysis) 131/87 mmHg BP Sitting (Post-Dialysis) 161/112 mmHg Concurrent Access: falseCentral Venous Catheter (CVC) Chest (Right) Arterial Sitting Heart Rate Pre-Dialysis 129 BPM Sitting H eart Rate Post-Dialysis 108 BPM Temperature Pre-Dialysis 97.5 degF Temperature Post -Dialysis 97.1 degF July 25, 2024 In-Center Hemodialysis Treatment 7545-91-35J11:45:00.000Z 4310-43-14F72:35:01.000Z BP Sitting (Pre-Dialysis) 132/81 mmHg BP Sitting (Post-Dialysis) 145/98 mmHg Concurrent Access: falseCentral Venous Catheter (CVC) Chest (Right) Arterial Sitting Heart Rate Pre-Dialysis 127 BPM Sitting H eart Rate Post-Dialysis 116 BPM Temperature Pre-Dialysis 97 degF Temperature Post -Dialysis 97.6 degF July 22, 2024 In-Center Hemodialysis Treatment 6750-46-33C29:49:27.000Z 1529-05-11I02:37:27.000Z BP Sitting (Pre-Dialysis) 124/91 mmHg BP Sitting (Post-Dialysis) 121/74 mmHg Concurrent Access: falseCentral Venous Catheter (CVC) Chest (Right) Arterial Sitting Heart Rate Pre-Dialysis 120 BPM Sitting H eart Rate Post-Dialysis 112 BPM Temperature Pre-Dialysis 98.1 degF Temperature Post -Dialysis 97.3 degF July 20, 2024 In-Center Hemodialysis Treatment 6707-48-72O62:34:37.000Z 6256-79-04G42:21:52.000Z BP Sitting (Pre-Dialysis) 151/124 mmHg BP Sitting (Post-Dialysis) 127/95 mmHg Concurrent Access: falseCentral Venous Catheter (CVC) Chest (Right) Arterial Sitting Heart Rate Pre-Dialysis 120 BPM Sitting H eart Rate Post-Dialysis 106 BPM Temperature Pre-Dialysis 98 degF Temperature Post -Dialysis 97.3 degF July 18, 2024 In-Center Hemodialysis Treatment 2487-31-58Q47:46:22.000Z 6933-53-12X85:34:58.000Z BP Sitting (Pre-Dialysis) 153/117 mmHg BP Sitting (Post-Dialysis) 176/102 mmHg Concurrent Access: falseCentral Venous Catheter (CVC) Chest (Right) Arterial Sitting Heart Rate Pre-Dialysis 120 BPM Sitting H eart Rate Post-Dialysis 110 BPM Temperature Pre-Dialysis 98.8 degF July 15, 2024 In-Center Hemodialysis Treatment 2547-09-02U98:41:49.000Z 6801-17-81Z33:29:50.000Z BP Sitting (Pre-Dialysis) 131/86 mmHg BP Sitting (Post-Dialysis) 149/98 mmHg Concurrent Access: falseCentral Venous Catheter (CVC) Chest (Right) Arterial Sitting Heart Rate Pre-Dialysis 65 BPM Sitting H eart Rate Post-Dialysis 106 BPM Temperature Pre-Dialysis 97.9 degF Temperature Post -Dialysis 97.5 degF July 13, 2024 In-Center Hemodialysis Treatment 7588-53-91T02:44:15.000Z 2473-31-11S83:41:43.000Z BP Sitting (Pre-Dialysis) 139/93 mmHg BP Sitting (Post-Dialysis) 138/102 mmHg Concurrent Access: falseCentral Venous Catheter (CVC) Chest (Right) Arterial Sitting Heart Rate Pre-Dialysis 102 BPM Sitting H eart Rate Post-Dialysis 96 BPM Temperature Pre-Dialysis 97.2 degF Temperature Post -Dialysis 97.1 degF July 11, 2024 In-Center Hemodialysis Treatment 1996-16-13N92:57:26.000Z 6232-64-32R95:47:07.000Z BP Sitting (Pre-Dialysis) 143/109 mmHg BP Sitting (Post-Dialysis) 169/133 mmHg Concurrent Access: falseCentral Venous Catheter (CVC) Chest (Right) Arterial Sitting Heart Rate Pre-Dialysis 120 BPM Sitting H eart Rate Post-Dialysis 80 BPM Temperature Pre-Dialysis 97.5 degF Temperature Post -Dialysis 97.5 degF July 08, 2024 In-Center Hemodialysis Treatment 1314-72-78U75:43:04.000Z 6313-96-21W94:30:34.000Z BP Sitting (Pre-Dialysis) 123/111 mmHg BP Sitting (Post-Dialysis) 145/101 mmHg Concurrent Access: falseCentral Venous Catheter (CVC) Chest (Right) Arterial Sitting Heart Rate Pre-Dialysis 110 BPM Sitting H eart Rate Post-Dialysis 120 BPM Temperature Pre-Dialysis 97.9 degF Temperature Post -Dialysis 97.5 degF July 06, 2024 In-Center Hemodialysis Treatment 1176-03-44S51:06:20.000Z 7604-76-67Y17:55:30.000Z BP Sitting (Pre-Dialysis) 117/97 mmHg BP Sitting (Post-Dialysis) 181/115 mmHg Concurrent Access: falseCentral Venous Catheter (CVC) Chest (Right) Arterial Sitting Heart Rate Pre-Dialysis 129 BPM Sitting H eart Rate Post-Dialysis 96 BPM Temperature Pre-Dialysis 97.4 degF Temperature Post -Dialysis 97.9 degF July 04, 2024 In-Center Hemodialysis Treatment 1867-97-30X01:48:29.000Z 9351-41-82W78:36:09.000Z BP Sitting (Pre-Dialysis) 171/136 mmHg BP Sitting (Post-Dialysis) 119/84 mmHg Concurrent Access: falseCentral Venous Catheter (CVC) Chest (Right) Arterial Sitting Heart Rate Pre-Dialysis 120 BPM Sitting H eart Rate Post-Dialysis 120 BPM Temperature Pre-Dialysis 96.8 degF Temperature Post -Dialysis 96.9 degF July 01, 2024 In-Center Hemodialysis Treatment 3753-99-76E23:43:53.000Z 5597-50-06F04:33:23.000Z BP Sitting (Pre-Dialysis) 117/96 mmHg BP Sitting (Post-Dialysis) 108/83 mmHg Concurrent Access: falseCentral Venous Catheter (CVC) Chest (Right) Arterial Sitting Heart Rate Pre-Dialysis 107 BPM Sitting H eart Rate Post-Dialysis 120 BPM Temperature Pre-Dialysis 97.1 degF Temperature Post -Dialysis 97 degF June 27, 2024 In-Center Hemodialysis Treatment 3278-31-25V56:42:10.000Z 7006-43-10I51:30:31.000Z BP Sitting (Pre-Dialysis) 200/138 mmHg BP Sitting (Post-Dialysis) 122/87 mmHg Concurrent Access: falseCentral Venous Catheter (CVC) Chest (Right) Arterial Sitting Heart Rate Pre-Dialysis 166 BPM Sitting H eart Rate Post-Dialysis 92 BPM Temperature Pre-Dialysis 97.1 degF Temperature Post -Dialysis 97 degF June 24, 2024 In-Center Hemodialysis Treatment 0015-68-31D05:37:43.000Z 7169-78-68J70:25:49.000Z BP Sitting (Pre-Dialysis) 103/80 mmHg BP Sitting (Post-Dialysis) 145/83 mmHg Concurrent Access: falseCentral Venous Catheter (CVC) Chest (Right) Arterial Sitting Heart Rate Pre-Dialysis 109 BPM BP Standing (Post-Dialysis) 150/86 mmHg Temperature Pre-Dialysis 97.5 degF Sitting Heart Ra te Post-Dialysis 102 BPM Standing Heart Rate Post-May lysis 100 BPM Temperature Post-Dialysis 98 .4 degF June 22, 2024 In-Center Hemodialysis Treatment 3323-99-66N78:52:17.000Z 9668-15-56J95:27:18.000Z BP Sitting (Pre-Dialysis) 151/118 mmHg BP Sitting (Post-Dialysis) 146/101 mmHg Concurrent Access: falseCentral Venous Catheter (CVC) Chest (Right) Arterial Sitting Heart Rate Pre-Dialysis 73 BPM Sitting H eart Rate Post-Dialysis 114 BPM Temperature Pre-Dialysis 98.1 degF Temperature Post -Dialysis 98.1 degF June 20, 2024 In-Center Hemodialysis Treatment 8727-94-72W57:29:43.000Z 4551-02-75M97:20:08.000Z BP Sitting (Pre-Dialysis) 179/132 mmHg BP Sitting (Post-Dialysis) 149/98 mmHg Concurrent Access: falseCentral Venous Catheter (CVC) Chest (Right) Arterial Sitting Heart Rate Pre-Dialysis 133 BPM Sitting H eart Rate Post-Dialysis 113 BPM Temperature Pre-Dialysis 98.1 degF June 17, 2024 In-Center Hemodialysis Treatment 2121-50-91T37:38:48.000Z 5167-21-36N51:23:03.000Z BP Sitting (Pre-Dialysis) 194/126 mmHg BP Sitting (Post-Dialysis) 123/89 mmHg Concurrent Access: falseCentral Venous Catheter (CVC) Chest (Right) Arterial Sitting Heart Rate Pre-Dialysis 120 BPM Sitting H eart Rate Post-Dialysis 103 BPM Temperature Pre-Dialysis 98.1 degF June 15, 2024 In-Center Hemodialysis Treatment 5456-43-60U53:40:42.000Z 0750-74-68B40:29:37.000Z BP Sitting (Pre-Dialysis) 188/145 mmHg BP Sitting (Post-Dialysis) 153/118 mmHg Concurrent Access: falseCentral Venous Catheter (CVC) Chest (Right) Arterial Sitting Heart Rate Pre-Dialysis 120 BPM Sitting H eart Rate Post-Dialysis 106 BPM Temperature Pre-Dialysis 97.3 degF Temperature Post -Dialysis 97.4 degF June 13, 2024 In-Center Hemodialysis Treatment 6259-60-99Z94:39:33.000Z 8847-72-78A39:28:58.000Z BP Sitting (Pre-Dialysis) 205/160 mmHg BP Sitting (Post-Dialysis) 116/111 mmHg Concurrent Access: falseCentral Venous Catheter (CVC) Chest (Right) Arterial Sitting Heart Rate Pre-Dialysis 120 BPM Sitting H eart Rate Post-Dialysis 120 BPM Temperature Pre-Dialysis 97 degF Temperature Post -Dialysis 97 degF June 10, 2024 In-Center Hemodialysis Treatment 6095-67-60I78:45:00.000Z 1370-05-64X44:33:42.000Z BP Sitting (Pre-Dialysis) 98/66 mmHg BP Sitting (Post-Dialysis) 108/80 mmHg Concurrent Access: falseCentral Venous Catheter (CVC) Chest (Right) Arterial Sitting Heart Rate Pre-Dialysis 120 BPM Sitting H eart Rate Post-Dialysis 107 BPM Temperature Pre-Dialysis 97.1 degF Temperature Post -Dialysis 97.3 degF June 08, 2024 In-Center Hemodialysis Treatment 3644-45-32F01:38:09.000Z 9524-89-37I49:29:09.000Z BP Sitting (Pre-Dialysis) 147/98 mmHg BP Sitting (Post-Dialysis) 117/94 mmHg Concurrent Access: falseCentral Venous Catheter (CVC) Chest (Right) Arterial BP Standing (Pre-Dialysis) 173/117 mmHg Sitti ng Heart Rate Post-Dialysis 82 BPM Sitting Heart Rate Pre-Dialysis 120 BPM Temperatu re Post-Dialysis 97.4 degF Standing Heart Rate Pre-Dialysis 88 BPM Temperature Pre-Dialysis 96.7 degF June 06, 2024 In-Center Hemodialysis Treatment 9316-98-01H64:42:14.000Z 7123-55-41T29:31:35.000Z BP Sitting (Pre-Dialysis) 150/109 mmHg BP Sitting (Post-Dialysis) 123/81 mmHg Concurrent Access: falseCentral Venous Catheter (CVC) Chest (Right) Arterial BP Standing (Pre-Dialysis) 168/140 mmHg Sitti ng Heart Rate Post-Dialysis 112 BPM Sitting Heart Rate Pre-Dialysis 120 BPM Temperatu re Post-Dialysis 97.9 degF Standing Heart Rate Pre-Dialysis 112 BPM Temperature Pre-Dialysis 97.9 degF June 03, 2024 In-Center Hemodialysis Treatment 6729-90-25Y81:33:10.000Z 4939-29-29T59:21:10.000Z BP Sitting (Pre-Dialysis) 96/66 mmHg BP Sitting (Post-Dialysis) 118/80 mmHg Concurrent Access: falseCentral Venous Catheter (CVC) Chest (Right) Arterial Sitting Heart Rate Pre-Dialysis 99 BPM Sitting H eart Rate Post-Dialysis 120 BPM Temperature Pre-Dialysis 97.9 degF June 01, 2024 In-Center Hemodialysis Treatment 5580-58-73G76:51:46.000Z 7438-36-56Y57:38:32.000Z BP Sitting (Pre-Dialysis) 138/97 mmHg BP Sitting (Post-Dialysis) 165/123 mmHg Concurrent Access: falseCentral Venous Catheter (CVC) Chest (Right) Arterial Sitting Heart Rate Pre-Dialysis 104 BPM Sitting H eart Rate Post-Dialysis 120 BPM Temperature Pre-Dialysis 97.4 degF Temperature Post -Dialysis 97.3 degF May 30, 2024 In-Center Hemodialysis Treatment 8809-47-35U77:49:19.000Z 3227-98-45H04:36:50.000Z BP Sitting (Pre-Dialysis) 156/126 mmHg BP Sitting (Post-Dialysis) 143/113 mmHg Concurrent Access: falseCentral Venous Catheter (CVC) Chest (Right) Arterial Sitting Heart Rate Pre-Dialysis 145 BPM Sitting H eart Rate Post-Dialysis 107 BPM Temperature Pre-Dialysis 97.7 degF May 27, 2024 In-Center Hemodialysis Treatment 9309-21-72P04:41:52.000Z 6374-09-82E50:25:52.000Z BP Sitting (Pre-Dialysis) 156/113 mmHg BP Sitting (Post-Dialysis) 146/102 mmHg Concurrent Access: falseCentral Venous Catheter (CVC) Chest (Right) Arterial Sitting Heart Rate Pre-Dialysis 137 BPM Sitting H eart Rate Post-Dialysis 103 BPM Temperature Pre-Dialysis 97.2 degF Temperature Post -Dialysis 97.3 degF May 25, 2024 In-Center Hemodialysis Treatment 4627-70-31M64:37:50.000Z 0731-39-73Z20:28:21.000Z BP Sitting (Pre-Dialysis) 134/93 mmHg BP Sitting (Post-Dialysis) 145/103 mmHg Concurrent Access: falseCentral Venous Catheter (CVC) Chest (Right) Arterial Sitting Heart Rate Pre-Dialysis 127 BPM Sitting H eart Rate Post-Dialysis 120 BPM Temperature Pre-Dialysis 97.2 degF Temperature Post -Dialysis 97 degF May 23, 2024 In-Center Hemodialysis Treatment 7312-73-43T03:00:40.000Z 8408-35-47F92:53:26.000Z BP Sitting (Pre-Dialysis) 180/145 mmHg BP Sitting (Post-Dialysis) 149/101 mmHg Concurrent Access: falseCentral Venous Catheter (CVC) Chest (Right) Arterial Sitting Heart Rate Pre-Dialysis 107 BPM Sitting H eart Rate Post-Dialysis 106 BPM Temperature Pre-Dialysis 96.3 degF Temperature Post -Dialysis 97.3 degF May 16, 2024 In-Center Hemodialysis Treatment 6472-43-11T79:43:33.000Z 7359-90-25B01:31:38.000Z BP Sitting (Pre-Dialysis) 161/119 mmHg BP Sitting (Post-Dialysis) 174/123 mmHg Concurrent Access: falseCentral Venous Catheter (CVC) Chest (Right) Arterial Sitting Heart Rate Pre-Dialysis 134 BPM Sitting H eart Rate Post-Dialysis 126 BPM Temperature Pre-Dialysis 96.8 degF Temperature Post -Dialysis 97 degF May 13, 2024 In-Center Hemodialysis Treatment 2887-89-54X46:47:51.000Z 3960-83-15Y68:34:52.000Z BP Sitting (Pre-Dialysis) 131/108 mmHg BP Sitting (Post-Dialysis) 130/98 mmHg Concurrent Access: falseCentral Venous Catheter (CVC) Chest (Right) Arterial Sitting Heart Rate Pre-Dialysis 104 BPM BP Standing (Post-Dialysis) 131/79 mmHg Temperature Pre-Dialysis 96.9 degF Sitting Heart Ra te Post-Dialysis 120 BPM Standing Heart Rate Post-May lysis 99 BPM Temperature Post-Dialysis 97 degF May 11, 2024 In-Center Hemodialysis Treatment 6462-04-21I65:52:54.000Z 4911-59-43X95:42:49.000Z BP Sitting (Pre-Dialysis) 201/145 mmHg BP Sitting (Post-Dialysis) 185/145 mmHg Concurrent Access: falseCentral Venous Catheter (CVC) Chest (Right) Arterial Sitting Heart Rate Pre-Dialysis 100 BPM Sitting H eart Rate Post-Dialysis 97 BPM Temperature Pre-Dialysis 97.3 degF Temperature Post -Dialysis 97.2 degF May 09, 2024 In-Center Hemodialysis Treatment 9217-92-74X58:43:26.000Z 8842-60-26R66:29:26.000Z BP Sitting (Pre-Dialysis) 133/102 mmHg BP Sitting (Post-Dialysis) 147/99 mmHg Concurrent Access: falseCentral Venous Catheter (CVC) Chest (Right) Arterial Sitting Heart Rate Pre-Dialysis 120 BPM Sitting H eart Rate Post-Dialysis 137 BPM Temperature Pre-Dialysis 96.9 degF Temperature Post -Dialysis 97.3 degF May 06, 2024 In-Center Hemodialysis Treatment 1412-18-10F38:37:35.000Z 2256-61-10X29:04:51.000Z BP Sitting (Pre-Dialysis) 116/83 mmHg BP Sitting (Post-Dialysis) 132/95 mmHg Concurrent Access: falseCentral Venous Catheter (CVC) Chest (Right) Arterial BP Standing (Pre-Dialysis) 185/165 mmHg Sitti ng Heart Rate Post-Dialysis 120 BPM Sitting Heart Rate Pre-Dialysis 147 BPM Standing Heart Rate Pre-Dialysis 137 BPM Temperature Pre-Dialysis 97.5 degF May 04, 2024 In-Center Hemodialysis Treatment 5785-59-44U88:40:04.000Z 8662-01-25N22:30:00.000Z BP Sitting (Pre-Dialysis) 120/83 mmHg BP Sitting (Post-Dialysis) 121/78 mmHg Concurrent Access: falseCentral Venous Catheter (CVC) Chest (Right) Arterial BP Standing (Pre-Dialysis) 106/86 mmHg Sitti ng Heart Rate Post-Dialysis 126 BPM Sitting Heart Rate Pre-Dialysis 139 BPM Temperatu re Post-Dialysis 98.1 degF Standing Heart Rate Pre-Dialysis 138 BPM Temperature Pre-Dialysis 97.1 degF May 02, 2024 In-Center Hemodialysis Treatment 9275-43-78Z72:42:54.000Z 5257-55-32Q83:28:25.000Z BP Sitting (Pre-Dialysis) 176/146 mmHg BP Sitting (Post-Dialysis) 161/103 mmHg Concurrent Access: falseCentral Venous Catheter (CVC) Chest (Right) Arterial Sitting Heart Rate Pre-Dialysis 117 BPM Sitting H eart Rate Post-Dialysis 87 BPM Temperature Pre-Dialysis 97 degF Temperature Post -Dialysis 97 degF April 29, 2024 In-Center Hemodialysis Treatment 9373-87-14K02:51:21.000Z 1664-60-69L73:59:46.000Z BP Sitting (Pre-Dialysis) 174/124 mmHg BP Sitting (Post-Dialysis) 137/102 mmHg Concurrent Access: falseCentral Venous Catheter (CVC) Chest (Right) Arterial Sitting Heart Rate Pre-Dialysis 125 BPM Sitting H eart Rate Post-Dialysis 117 BPM Temperature Pre-Dialysis 97.4 degF Temperature Post -Dialysis 97.3 degF April 25, 2024 In-Center Hemodialysis Treatment 3965-70-80R49:53:08.000Z 6012-94-16C06:23:33.000Z BP Sitting (Pre-Dialysis) 120/103 mmHg BP Sitting (Post-Dialysis) 113/63 mmHg Concurrent Access: falseCentral Venous Catheter (CVC) Chest (Right) Arterial Sitting Heart Rate Pre-Dialysis 120 BPM Sitting H eart Rate Post-Dialysis 80 BPM Temperature Pre-Dialysis 97.2 degF Temperature Post -Dialysis 97 degF April 22, 2024 In-Center Hemodialysis Treatment 3224-13-85W49:33:43.000Z 5915-97-14Z96:15:42.000Z BP Sitting (Pre-Dialysis) 172/119 mmHg BP Sitting (Post-Dialysis) 138/95 mmHg Concurrent Access: falseCentral Venous Catheter (CVC) Chest (Right) Arterial Sitting Heart Rate Pre-Dialysis 126 BPM Sitting H eart Rate Post-Dialysis 62 BPM Temperature Pre-Dialysis 96.9 degF Temperature Post -Dialysis 96.6 degF April 20, 2024 In-Center Hemodialysis Treatment 3879-91-61Q47:51:05.000Z 0286-85-76V93:15:30.000Z BP Sitting (Pre-Dialysis) 111/98 mmHg BP Sitting (Post-Dialysis) 123/76 mmHg Concurrent Access: falseCentral Venous Catheter (CVC) Chest (Right) Arterial Sitting Heart Rate Pre-Dialysis 138 BPM Sitting H eart Rate Post-Dialysis 90 BPM Temperature Pre-Dialysis 97.3 degF Temperature Post -Dialysis 97.3 degF April 18, 2024 In-Center Hemodialysis Treatment 0954-06-95P57:53:02.000Z 0013-12-15K81:43:52.000Z BP Sitting (Pre-Dialysis) 118/87 mmHg BP Sitting (Post-Dialysis) 132/96 mmHg Concurrent Access: falseCentral Venous Catheter (CVC) Chest (Right) Arterial Sitting Heart Rate Pre-Dialysis 120 BPM Sitting H eart Rate Post-Dialysis 128 BPM Temperature Pre-Dialysis 97.3 degF Temperature Post -Dialysis 97.2 degF April 15, 2024 In-Center Hemodialysis Treatment 6099-91-50J54:45:42.000Z 4302-23-81N24:34:43.000Z BP Sitting (Pre-Dialysis) 150/103 mmHg BP Sitting (Post-Dialysis) 133/108 mmHg Concurrent Access: falseCentral Venous Catheter (CVC) Chest (Right) Arterial Sitting Heart Rate Pre-Dialysis 117 BPM Sitting H eart Rate Post-Dialysis 105 BPM Temperature Pre-Dialysis 97 degF Temperature Post -Dialysis 97 degF April 13, 2024 In-Center Hemodialysis Treatment 7995-82-33Z81:51:18.000Z 8343-66-48U42:53:43.000Z BP Sitting (Pre-Dialysis) 138/119 mmHg BP Sitting (Post-Dialysis) 143/126 mmHg Concurrent Access: falseCentral Venous Catheter (CVC) Chest (Right) Arterial Sitting Heart Rate Pre-Dialysis 120 BPM Sitting H eart Rate Post-Dialysis 105 BPM Temperature Pre-Dialysis 96.9 degF Temperature Post -Dialysis 96.9 degF April 11, 2024 In-Center Hemodialysis Treatment 6966-24-34T60:01:27.000Z 6205-70-11K96:48:00.000Z BP Sitting (Pre-Dialysis) 159/122 mmHg BP Sitting (Post-Dialysis) 161/140 mmHg Concurrent Access: falseCentral Venous Catheter (CVC) Chest (Right) Arterial Sitting Heart Rate Pre-Dialysis 117 BPM Sitting H eart Rate Post-Dialysis 108 BPM Temperature Pre-Dialysis 97.3 degF Temperature Post -Dialysis 97.2 degF April 07, 2024 In-Center Hemodialysis Treatment 8443-58-99H51:11:00.000Z 1244-88-68T29:59:11.000Z BP Sitting (Pre-Dialysis) 133/96 mmHg BP Sitting (Post-Dialysis) 155/104 mmHg Concurrent Access: falseCentral Venous Catheter (CVC) Chest (Right) Arterial Sitting Heart Rate Pre-Dialysis 120 BPM BP Standing (Post-Dialysis) 163/131 mmHg Temperature Pre-Dialysis 97.5 degF Sitting Heart Ra te Post-Dialysis 105 BPM Standing Heart R ate Post-Dialysis 111 BPM Temperature Post-Dialysis 97 .4 degF April 05, 2024 In-Center Hemodialysis Treatment 7540-93-20I38:06:00.000Z 7729-24-08H63:52:58.000Z BP Sitting (Pre-Dialysis) 117/82 mmHg BP Sitting (Post-Dialysis) 146/87 mmHg Concurrent Access: falseCentral Venous Catheter (CVC) Chest (Right) Arterial Sitting Heart Rate Pre-Dialysis 141 BPM Sitting H eart Rate Post-Dialysis 93 BPM Temperature Pre-Dialysis 97.2 degF Temperature Post -Dialysis 97.1 degF April 01, 2024 In-Center Hemodialysis Treatment 9900-20-65J58:48:10.000Z 9368-75-85V46:36:01.000Z BP Sitting (Pre-Dialysis) 145/113 mmHg BP Sitting (Post-Dialysis) 110/95 mmHg Concurrent Access: falseCentral Venous Catheter (CVC) Chest (Right) Arterial Sitting Heart Rate Pre-Dialysis 139 BPM BP Standi ng (Post-Dialysis) 145/99 mmHg Temperature Pre-Dialysis 98 degF Sitting Heart Ra te Post-Dialysis 86 BPM Standing Heart Rate Post-May lysis 138 BPM Temperature Post-Dialysis 97 .5 degF March 30, 2024 In-Center Hemodialysis Treatment 7956-15-58D01:50:12.000Z 6310-51-64O00:00:18.000Z BP Sitting (Pre-Dialysis) 201/162 mmHg BP Sitting (Post-Dialysis) 161/125 mmHg Concurrent Access: falseCentral Venous Catheter (CVC) Chest (Right) Arterial Sitting Heart Rate Pre-Dialysis 120 BPM BP Standing (Post-Dialysis) 210/168 mmHg Temperature Pre-Dialysis 97.7 degF Sitting Heart Ra te Post-Dialysis 105 BPM Standing Heart R ate Post-Dialysis 101 BPM Temperature Post-Dialysis 96 .8 degF March 28, 2024 In-Center Hemodialysis Treatment 4390-07-09T63:33:41.000Z 2055-53-26J55:16:36.000Z BP Sitting (Pre-Dialysis) 198/149 mmHg BP Sitting (Post-Dialysis) 181/129 mmHg Concurrent Access: falseCentral Venous Catheter (CVC) Chest (Right) Arterial Sitting Heart Rate Pre-Dialysis 103 BPM Sitting H eart Rate Post-Dialysis 94 BPM Temperature Pre-Dialysis 97.1 degF Temperature Post -Dialysis 97 degF March 25, 2024 In-Center Hemodialysis Treatment 1300-81-37F84:49:36.000Z 9032-11-48O07:45:36.000Z BP Sitting (Pre-Dialysis) 167/122 mmHg BP Sitting (Post-Dialysis) 152/110 mmHg Concurrent Access: falseCentral Venous Catheter (CVC) Chest (Right) Arterial BP Standing (Pre-Dialysis) 168/129 mmHg BP Standing (P ost-Dialysis) 118/46 mmHg Sitting Heart Rate Pre-Dialysis 120 BPM Sitting Heart Rate Post-Dialysis 103 BPM Standing Heart Rate Pre-Dialysis 147 BPM Standing Heart Rate Post-Dialysis 128 BPM Temperature Pre-Dialysis 98.1 degF Temperature Post -Dialysis 97 degF March 22, 2024 In-Center Hemodialysis Treatment 5344-21-04W04:44:37.000Z 2400-96-94U04:29:32.000Z BP Sitting (Pre-Dialysis) 136/102 mmHg BP Sitting (Post-Dialysis) 107/84 mmHg Concurrent Access: falseCentral Venous Catheter (CVC) Chest (Right) Arterial Sitting Heart Rate Pre-Dialysis 122 BPM BP Standi ng (Post-Dialysis) 147/102 mmHg Temperature Pre-Dialysis 97 degF Sitting Heart Ra te Post-Dialysis 113 BPM Standing Heart Rate Post-May lysis 114 BPM Temperature Post-Dialysis 97 degF March 20, 2024 In-Center Hemodialysis Treatment 0106-17-66G92:52:09.000Z 4296-51-67J55:19:09.000Z BP Sitting (Pre-Dialysis) 156/127 mmHg BP Sitting (Post-Dialysis) 122/90 mmHg Concurrent Access: falseCentral Venous Catheter (CVC) Chest (Right) Arterial Sitting Heart Rate Pre-Dialysis 86 BPM Sitting H eart Rate Post-Dialysis 96 BPM Temperature Pre-Dialysis 97.3 degF Temperature Post -Dialysis 97.3 degF March 18, 2024 In-Center Hemodialysis Treatment 1929-45-78G49:50:00.000Z 1215-18-05V86:39:18.000Z BP Sitting (Pre-Dialysis) 143/108 mmHg BP Sitting (Post-Dialysis) 172/147 mmHg Concurrent Access: falseCentral Venous Catheter (CVC) Chest (Right) Arterial Sitting Heart Rate Pre-Dialysis 87 BPM Sitting H eart Rate Post-Dialysis 108 BPM Temperature Pre-Dialysis 97.7 degF Temperature Post -Dialysis 97.1 degF March 11, 2024 In-Center Hemodialysis Treatment 3188-04-49V03:46:27.000Z 3783-17-48K41:42:33.000Z BP Sitting (Pre-Dialysis) 143/122 mmHg BP Sitting (Post-Dialysis) 121/97 mmHg Concurrent Access: falseCentral Venous Catheter (CVC) Chest (Right) Arterial BP Standing (Pre-Dialysis) 151/101 mmHg Sitti ng Heart Rate Post-Dialysis 103 BPM Sitting Heart Rate Pre-Dialysis 152 BPM Temperatu re Post-Dialysis 98.1 degF Standing Heart Rate Pre-Dialysis 128 BPM Temperature Pre-Dialysis 97.3 degF March 09, 2024 In-Center Hemodialysis Treatment 4938-91-40W80:42:15.000Z 9648-42-16S23:46:05.000Z BP Sitting (Pre-Dialysis) 151/109 mmHg BP Sitting (Post-Dialysis) 138/105 mmHg Concurrent Access: falseCentral Venous Catheter (CVC) Chest (Right) Arterial Sitting Heart Rate Pre-Dialysis 108 BPM BP Standi ng (Post-Dialysis) 155/116 mmHg Temperature Pre-Dialysis 98 degF Sitting Heart Ra te Post-Dialysis 105 BPM Standing Heart Rate Post-May lysis 67 BPM Temperature Post-Dialysis 97 .6 degF March 07, 2024 In-Center Hemodialysis Treatment 7659-75-28X58:38:18.000Z 5566-71-42Q58:46:03.000Z BP Sitting (Pre-Dialysis) 159/111 mmHg BP Sitting (Post-Dialysis) 106/82 mmHg Concurrent Access: falseCentral Venous Catheter (CVC) Chest (Right) Arterial Sitting Heart Rate Pre-Dialysis 137 BPM Sitting H eart Rate Post-Dialysis 160 BPM Temperature Pre-Dialysis 97.5 degF Temperature Post -Dialysis 97.5 degF March 04, 2024 In-Center Hemodialysis Treatment 5317-57-99F27:45:54.000Z 8640-58-06X63:11:59.000Z BP Sitting (Pre-Dialysis) 124/88 mmHg BP Sitting (Post-Dialysis) 131/89 mmHg Concurrent Access: falseCentral Venous Catheter (CVC) Chest (Right) Arterial BP Standing (Pre-Dialysis) 116/99 mmHg BP Standing (P ost-Dialysis) 104/77 mmHg Sitting Heart Rate Pre-Dialysis 140 BPM Sitting Heart Rate Post-Dialysis 106 BPM Standing Heart Rate Pre-Dialysis 138 BPM Standing Heart Rate Post-Dialysis 80 BPM Temperature Pre-Dialysis 97.1 degF Temperature Post -Dialysis 97.2 degF March 02, 2024 In-Center Hemodialysis Treatment 0303-58-21N71:25:37.000Z 9022-48-80E92:14:08.000Z BP Sitting (Pre-Dialysis) 110/55 mmHg BP Sitting (Post-Dialysis) 137/96 mmHg Concurrent Access: falseCentral Venous Catheter (CVC) Chest (Right) Arterial Sitting Heart Rate Pre-Dialysis 80 BPM Sitting H eart Rate Post-Dialysis 120 BPM Temperature Pre-Dialysis 97 degF February 29, 2024 In-Center Hemodialysis Treatment 0782-82-71Y95:49:05.000Z 5227-20-08Q24:38:10.000Z BP Sitting (Pre-Dialysis) 206/154 mmHg BP Sitting (Post-Dialysis) 141/117 mmHg Concurrent Access: falseCentral Venous Catheter (CVC) Chest (Right) Arterial BP Standing (Pre-Dialysis) 202/152 mmHg Sitti ng Heart Rate Post-Dialysis 139 BPM Sitting Heart Rate Pre-Dialysis 138 BPM Temperatu re Post-Dialysis 97.2 degF Standing Heart Rate Pre-Dialysis 138 BPM Temperature Pre-Dialysis 97 degF February 26, 2024 In-Center Hemodialysis Treatment 2397-19-91S36:38:55.000Z 4871-35-04J66:43:30.000Z BP Sitting (Pre-Dialysis) 170/138 mmHg BP Sitting (Post-Dialysis) 179/138 mmHg Concurrent Access: falseCentral Venous Catheter (CVC) Chest (Right) Arterial Sitting Heart Rate Pre-Dialysis 80 BPM Sitting H eart Rate Post-Dialysis 120 BPM Temperature Pre-Dialysis 97 degF Temperature Post -Dialysis 97 degF February 23, 2024 In-Center Hemodialysis Treatment 8729-01-78D68:47:57.000Z 6828-77-11Y33:37:28.000Z BP Sitting (Pre-Dialysis) 117/83 mmHg BP Sitting (Post-Dialysis) 136/93 mmHg Concurrent Access: falseCentral Venous Catheter (CVC) Chest (Right) Arterial Sitting Heart Rate Pre-Dialysis 145 BPM BP Standi ng (Post-Dialysis) 152/101 mmHg Temperature Pre-Dialysis 97 degF Sitting Heart Ra te Post-Dialysis 113 BPM Standing Heart Rate Post-May lysis 114 BPM Temperature Post-Dialysis 97 degF February 21, 2024 In-Center Hemodialysis Treatment 7318-66-29G14:50:26.000Z 9077-52-70L84:31:01.000Z BP Sitting (Pre-Dialysis) 131/98 mmHg BP Sitting (Post-Dialysis) 137/96 mmHg Concurrent Access: falseCentral Venous Catheter (CVC) Chest (Right) Arterial Sitting Heart Rate Pre-Dialysis 126 BPM Sitting H eart Rate Post-Dialysis 138 BPM Temperature Pre-Dialysis 97 degF February 19, 2024 In-Center Hemodialysis Treatment 7947-02-24X65:52:07.000Z 3309-08-39M43:44:07.000Z BP Sitting (Pre-Dialysis) 115/83 mmHg BP Sitting (Post-Dialysis) 135/92 mmHg Concurrent Access: falseCentral Venous Catheter (CVC) Chest (Right) Arterial Sitting Heart Rate Pre-Dialysis 140 BPM BP Standi ng (Post-Dialysis) 125/91 mmHg Temperature Pre-Dialysis 98 degF Sitting Heart Ra te Post-Dialysis 133 BPM Standing Heart Rate Post-May lysis 113 BPM Temperature Post-Dialysis 98 .1 degF February 17, 2024 In-Center Hemodialysis Treatment 6306-73-94A81:52:12.000Z 8262-31-55M18:40:48.000Z BP Sitting (Pre-Dialysis) 105/72 mmHg BP Sitting (Post-Dialysis) 145/109 mmHg Concurrent Access: falseCentral Venous Catheter (CVC) Chest (Right) Arterial Sitting Heart Rate Pre-Dialysis 125 BPM Sitting H eart Rate Post-Dialysis 79 BPM Temperature Pre-Dialysis 97 degF Temperature Post -Dialysis 97.2 degF February 15, 2024 In-Center Hemodialysis Treatment 0658-79-22H35:34:50.000Z 4413-93-81K92:20:11.000Z BP Sitting (Pre-Dialysis) 114/95 mmHg BP Sitting (Post-Dialysis) 122/76 mmHg Concurrent Access: falseCentral Venous Catheter (CVC) Chest (Right) Arterial Sitting Heart Rate Pre-Dialysis 134 BPM BP Standing (Post-Dialysis) 141/80 mmHg Temperature Pre-Dialysis 97.9 degF Sitting Heart Ra te Post-Dialysis 112 BPM Standing Heart Rate Post-May lysis 117 BPM Temperature Post-Dialysis 97 .5 degF February 12, 2024 In-Center Hemodialysis Treatment 6318-29-06I65:05:10.000Z 0462-47-88L01:50:25.000Z BP Sitting (Pre-Dialysis) 173/124 mmHg BP Sitting (Post-Dialysis) 162/112 mmHg Concurrent Access: falseCentral Venous Catheter (CVC) Chest (Right) Arterial BP Standing (Pre-Dialysis) 171/134 mmHg Sitti ng Heart Rate Post-Dialysis 106 BPM Sitting Heart Rate Pre-Dialysis 138 BPM Temperatu re Post-Dialysis 97.4 degF Standing Heart Rate Pre-Dialysis 137 BPM Temperature Pre-Dialysis 97 degF February 10, 2024 In-Center Hemodialysis Treatment 3120-08-44X13:50:47.000Z 1131-68-73N85:44:02.000Z BP Sitting (Pre-Dialysis) 181/153 mmHg BP Sitting (Post-Dialysis) 177/123 mmHg Concurrent Access: falseCentral Venous Catheter (CVC) Chest (Right) Arterial Sitting Heart Rate Pre-Dialysis 137 BPM Sitting H eart Rate Post-Dialysis 96 BPM Temperature Pre-Dialysis 97 degF Temperature Post -Dialysis 97.2 degF February 08, 2024 In-Center Hemodialysis Treatment 7891-21-90I73:57:16.000Z 3091-54-34A14:49:46.000Z BP Sitting (Pre-Dialysis) 165/121 mmHg BP Sitting (Post-Dialysis) 154/117 mmHg Concurrent Access: falseCentral Venous Catheter (CVC) Chest (Right) Arterial Sitting Heart Rate Pre-Dialysis 151 BPM Sitting H eart Rate Post-Dialysis 145 BPM Temperature Pre-Dialysis 97.2 degF Temperature Post -Dialysis 97 degF February 03, 2024 In-Center Hemodialysis Treatment 8491-69-83N90:40:00.000Z 3030-61-68E67:36:55.000Z BP Sitting (Pre-Dialysis) 148/96 mmHg BP Sitting (Post-Dialysis) 117/77 mmHg Concurrent Access: falseCentral Venous Catheter (CVC) Chest (Right) Arterial Sitting Heart Rate Pre-Dialysis 139 BPM BP Standi ng (Post-Dialysis) 101/81 mmHg Temperature Pre-Dialysis 97 degF Sitting Heart Ra te Post-Dialysis 101 BPM Standing Heart Rate Post-May lysis 133 BPM Temperature Post-Dialysis 97 .3 degF February 01, 2024 In-Center Hemodialysis Treatment 3729-74-59V52:50:04.000Z 7314-00-49T74:14:04.000Z BP Sitting (Pre-Dialysis) 174/132 mmHg BP Sitting (Post-Dialysis) 158/112 mmHg Concurrent Access: falseCentral Venous Catheter (CVC) Chest (Right) Arterial Sitting Heart Rate Pre-Dialysis 73 BPM BP Standing (Post-Dialysis) 169/116 mmHg Temperature Pre-Dialysis 96.7 degF Sitting Heart Ra te Post-Dialysis 94 BPM Standing Heart R ate Post-Dialysis 94 BPM Temperature Post-Dialysis 97 .2 degF January 29, 2024 In-Center Hemodialysis Treatment 3212-77-13J71:56:31.000Z 6737-78-20Q66:15:42.000Z BP Sitting (Pre-Dialysis) 210/139 mmHg BP Sitting (Post-Dialysis) 162/117 mmHg Concurrent Access: falseCentral Venous Catheter (CVC) Chest (Right) Arterial Sitting Heart Rate Pre-Dialysis 132 BPM BP Standing (Post-Dialysis) 167/121 mmHg Temperature Pre-Dialysis 96.8 degF Sitting Heart Ra te Post-Dialysis 100 BPM Standing Heart R ate Post-Dialysis 121 BPM Temperature Post-Dialysis 97 .4 degF January 27, 2024 In-Center Hemodialysis Treatment 1402-40-30C92:51:41.000Z 6019-93-01R79:44:12.000Z BP Sitting (Pre-Dialysis) 149/112 mmHg BP Sitting (Post-Dialysis) 146/118 mmHg Concurrent Access: falseCentral Venous Catheter (CVC) Chest (Right) Arterial Sitting Heart Rate Pre-Dialysis 120 BPM BP Standing (Post-Dialysis) 154/99 mmHg Temperature Pre-Dialysis 97.4 degF Sitting Heart Ra te Post-Dialysis 114 BPM Standing Heart Rate Post-May lysis 94 BPM Temperature Post-Dialysis 97 .3 degF January 25, 2024 In-Center Hemodialysis Treatment 9387-63-30M64:44:01.000Z 6718-66-93V82:35:07.000Z BP Sitting (Pre-Dialysis) 201/168 mmHg BP Sitting (Post-Dialysis) 146/114 mmHg Concurrent Access: falseCentral Venous Catheter (CVC) Chest (Right) Arterial Sitting Heart Rate Pre-Dialysis 154 BPM Sitting H eart Rate Post-Dialysis 120 BPM Temperature Pre-Dialysis 98.1 degF Temperature Post -Dialysis 97.9 degF January 22, 2024 In-Center Hemodialysis Treatment 0224-35-28V44:40:00.000Z 5980-32-12E39:28:06.000Z BP Sitting (Pre-Dialysis) 152/114 mmHg BP Sitting (Post-Dialysis) 163/116 mmHg Concurrent Access: falseCentral Venous Catheter (CVC) Chest (Right) Arterial Sitting Heart Rate Pre-Dialysis 148 BPM BP Standing (Post-Dialysis) 162/123 mmHg Temperature Pre-Dialysis 97.3 degF Sitting Heart Ra te Post-Dialysis 120 BPM Standing Heart R ate Post-Dialysis 114 BPM Temperature Post-Dialysis 97 .2 degF January 20, 2024 In-Center Hemodialysis Treatment 4622-21-49H07:39:20.000Z 4083-54-02X06:14:50.000Z BP Sitting (Pre-Dialysis) 161/129 mmHg BP Sitting (Post-Dialysis) 133/109 mmHg Concurrent Access: falseCentral Venous Catheter (CVC) Chest (Right) Arterial Sitting Heart Rate Pre-Dialysis 139 BPM BP Standing (Post-Dialysis) 155/112 mmHg Temperature Pre-Dialysis 97.5 degF Sitting Heart Ra te Post-Dialysis 114 BPM Standing Heart R ate Post-Dialysis 120 BPM Temperature Post-Dialysis 97 .2 degF January 15, 2024 In-Center Hemodialysis Treatment 9583-50-50L99:45:31.000Z 7424-47-28M83:24:36.000Z BP Sitting (Pre-Dialysis) 200/150 mmHg BP Sitting (Post-Dialysis) 154/88 mmHg Concurrent Access: falseCentral Venous Catheter (CVC) Chest (Right) Arterial Sitting Heart Rate Pre-Dialysis 133 BPM BP Standing (Post-Dialysis) 113/95 mmHg Temperature Pre-Dialysis 97.2 degF Sitting Heart Ra te Post-Dialysis 106 BPM Standing Heart Rate Post-May lysis 131 BPM Temperature Post-Dialysis 97 .5 degF January 13, 2024 In-Center Hemodialysis Treatment 1880-00-06P16:55:05.000Z 1549-53-94C55:43:00.000Z BP Sitting (Pre-Dialysis) 184/103 mmHg BP Sitting (Post-Dialysis) 135/88 mmHg Concurrent Access: falseCentral Venous Catheter (CVC) Chest (Right) Arterial Sitting Heart Rate Pre-Dialysis 134 BPM Sitting H eart Rate Post-Dialysis 109 BPM Temperature Pre-Dialysis 97 degF Temperature Post -Dialysis 97 degF January 11, 2024 In-Center Hemodialysis Treatment 7904-94-16R07:49:13.000Z 8347-61-20I41:04:54.000Z BP Sitting (Pre-Dialysis) 162/112 mmHg BP Sitting (Post-Dialysis) 156/120 mmHg Concurrent Access: falseCentral Venous Catheter (CVC) Chest (Right) Arterial Sitting Heart Rate Pre-Dialysis 133 BPM BP Standing (Post-Dialysis) 141/111 mmHg Temperature Pre-Dialysis 97.6 degF Sitting Heart Ra te Post-Dialysis 117 BPM Standing Heart R ate Post-Dialysis 98 BPM Temperature Post-Dialysis 97 .5 degF January 06, 2024 In-Center Hemodialysis Treatment 9772-31-40H67:02:04.000Z 0431-80-29K91:49:45.000Z BP Sitting (Pre-Dialysis) 185/150 mmHg BP Sitting (Post-Dialysis) 172/120 mmHg Concurrent Access: falseCentral Venous Catheter (CVC) Chest (Right) Arterial Sitting Heart Rate Pre-Dialysis 96 BPM Sitting H eart Rate Post-Dialysis 104 BPM Temperature Pre-Dialysis 97 degF Temperature Post -Dialysis 97.2 degF January 04, 2024 In-Center Hemodialysis Treatment 7166-95-39V92:44:00.000Z 0683-32-67Q54:10:03.000Z BP Sitting (Pre-Dialysis) 174/120 mmHg BP Sitting (Post-Dialysis) 194/127 mmHg Concurrent Access: falseCentral Venous Catheter (CVC) Chest (Right) Arterial Sitting Heart Rate Pre-Dialysis 160 BPM Sitting H eart Rate Post-Dialysis 68 BPM Temperature Pre-Dialysis 97 degF Temperature Post -Dialysis 97.2 degF January 01, 2024 In-Center Hemodialysis Treatment 8768-75-64K88:52:17.000Z 6145-51-66S86:00:27.000Z BP Sitting (Pre-Dialysis) 113/83 mmHg BP Sitting (Post-Dialysis) 157/102 mmHg Concurrent Access: falseCentral Venous Catheter (CVC) Chest (Right) Arterial Sitting Heart Rate Pre-Dialysis 150 BPM Sitting H eart Rate Post-Dialysis 120 BPM Temperature Pre-Dialysis 97.1 degF Temperature Post -Dialysis 97 degF December 30, 2023 In-Center Hemodialysis Treatment 4230-50-26H75:51:23.000Z 5392-12-10V13:42:54.000Z BP Sitting (Pre-Dialysis) 164/83 mmHg BP Sitting (Post-Dialysis) 129/89 mmHg Concurrent Access: falseCentral Venous Catheter (CVC) Chest (Right) Arterial Sitting Heart Rate Pre-Dialysis 153 BPM BP Standi ng (Post-Dialysis) 113/96 mmHg Temperature Pre-Dialysis 98 degF Sitting Heart Ra te Post-Dialysis 148 BPM Standing Heart Rate Post-May lysis 60 BPM Temperature Post-Dialysis 97 .9 degF December 28, 2023 In-Center Hemodialysis Treatment 2825-66-98R94:48:34.000Z 9132-99-06F83:38:05.000Z BP Sitting (Pre-Dialysis) 150/99 mmHg BP Sitting (Post-Dialysis) 146/110 mmHg Concurrent Access: falseCentral Venous Catheter (CVC) Chest (Right) Arterial Sitting Heart Rate Pre-Dialysis 103 BPM Sitting H eart Rate Post-Dialysis 120 BPM Temperature Pre-Dialysis 97 degF Temperature Post -Dialysis 97.1 degF December 25, 2023 In-Center Hemodialysis Treatment 1181-22-16N80:11:07.000Z 9504-34-14M00:46:38.000Z BP Sitting (Pre-Dialysis) 125/100 mmHg BP Sitting (Post-Dialysis) 138/83 mmHg Concurrent Access: falseCentral Venous Catheter (CVC) Chest (Right) Arterial Sitting Heart Rate Pre-Dialysis 138 BPM BP Standing (Post-Dialysis) 108/93 mmHg Temperature Pre-Dialysis 97.2 degF Sitting Heart Ra te Post-Dialysis 102 BPM Standing Heart Rate Post-May lysis 110 BPM Temperature Post-Dialysis 97 .2 degF December 23, 2023 In-Center Hemodialysis Treatment 1478-70-83H39:00:14.000Z 9840-92-96S48:33:34.000Z BP Sitting (Pre-Dialysis) 130/90 mmHg BP Sitting (Post-Dialysis) 133/93 mmHg Concurrent Access: falseCentral Venous Catheter (CVC) Chest (Right) Arterial Sitting Heart Rate Pre-Dialysis 91 BPM BP Standing (Post-Dialysis) 142/120 mmHg Temperature Pre-Dialysis 97.4 degF Sitting Heart Ra te Post-Dialysis 107 BPM Standing Heart R ate Post-Dialysis 85 BPM Temperature Post-Dialysis 97 .3 degF December 21, 2023 In-Center Hemodialysis Treatment 8756-23-45W66:11:39.000Z 9527-59-95C26:01:45.000Z BP Sitting (Pre-Dialysis) 133/96 mmHg BP Sitting (Post-Dialysis) 129/101 mmHg Concurrent Access: falseCentral Venous Catheter (CVC) Chest (Right) Arterial Sitting Heart Rate Pre-Dialysis 131 BPM BP Standing (Post-Dialysis) 108/74 mmHg Temperature Pre-Dialysis 97.2 degF Sitting Heart Ra te Post-Dialysis 112 BPM Standing Heart Rate Post-May lysis 102 BPM Temperature Post-Dialysis 97 degF December 18, 2023 In-Center Hemodialysis Treatment 9458-73-23N61:18:14.000Z 6153-47-48Z58:55:29.000Z BP Sitting (Pre-Dialysis) 102/78 mmHg BP Sitting (Post-Dialysis) 152/110 mmHg Concurrent Access: falseCentral Venous Catheter (CVC) Chest (Right) Arterial Sitting Heart Rate Pre-Dialysis 102 BPM Sitting H eart Rate Post-Dialysis 106 BPM Temperature Pre-Dialysis 97.1 degF Temperature Post -Dialysis 97 degF December 16, 2023 In-Center Hemodialysis Treatment 7301-31-03G34:42:00.000Z 5530-19-98P46:31:14.000Z BP Sitting (Pre-Dialysis) 190/133 mmHg BP Sitting (Post-Dialysis) 119/82 mmHg Concurrent Access: falseCentral Venous Catheter (CVC) Chest (Right) Arterial Sitting Heart Rate Pre-Dialysis 137 BPM Sitting H eart Rate Post-Dialysis 80 BPM Temperature Pre-Dialysis 97 degF Temperature Post -Dialysis 97.3 degF December 14, 2023 In-Center Hemodialysis Treatment 4165-85-83H96:00:00.000Z 5266-26-50U96:47:22.000Z BP Sitting (Pre-Dialysis) 150/112 mmHg BP Sitting (Post-Dialysis) 147/103 mmHg Concurrent Access: falseCentral Venous Catheter (CVC) Chest (Right) Arterial Sitting Heart Rate Pre-Dialysis 109 BPM BP Standing (Post-Dialysis) 161/109 mmHg Temperature Pre-Dialysis 97.2 degF Sitting Heart Ra te Post-Dialysis 104 BPM Standing Heart R ate Post-Dialysis 70 BPM Temperature Post-Dialysis 97 .2 degF December 11, 2023 In-Center Hemodialysis Treatment 1228-34-84F21:16:30.000Z 5556-74-74A31:50:26.000Z BP Sitting (Pre-Dialysis) 169/126 mmHg BP Sitting (Post-Dialysis) 148/95 mmHg Concurrent Access: falseCentral Venous Catheter (CVC) Chest (Right) Arterial Sitting Heart Rate Pre-Dialysis 105 BPM BP Standing (Post-Dialysis) 127/104 mmHg Temperature Pre-Dialysis 97.4 degF Sitting Heart Ra te Post-Dialysis 97 BPM Standing Heart R ate Post-Dialysis 113 BPM Temperature Post-Dialysis 97 .3 degF December 09, 2023 In-Center Hemodialysis Treatment 3657-62-67P42:09:57.000Z 4977-64-52D45:54:37.000Z BP Sitting (Pre-Dialysis) 139/110 mmHg BP Sitting (Post-Dialysis) 149/100 mmHg Concurrent Access: falseCentral Venous Catheter (CVC) Chest (Right) Arterial Sitting Heart Rate Pre-Dialysis 95 BPM Sitting H eart Rate Post-Dialysis 80 BPM Temperature Pre-Dialysis 97.8 degF Temperature Post -Dialysis 97.3 degF December 07, 2023 In-Center Hemodialysis Treatment 1627-93-34B20:06:08.000Z 1131-60-65J91:03:23.000Z BP Sitting (Pre-Dialysis) 123/104 mmHg BP Sitting (Post-Dialysis) 145/101 mmHg Concurrent Access: falseCentral Venous Catheter (CVC) Chest (Right) Arterial Sitting Heart Rate Pre-Dialysis 120 BPM Sitting H eart Rate Post-Dialysis 120 BPM Temperature Pre-Dialysis 98.1 degF Temperature Post -Dialysis 97.3 degF December 04, 2023 In-Center Hemodialysis Treatment 8701-64-51N66:03:00.000Z 6402-86-87P46:07:39.000Z BP Sitting (Pre-Dialysis) 171/120 mmHg BP Sitting (Post-Dialysis) 135/97 mmHg Concurrent Access: falseCentral Venous Catheter (CVC) Chest (Right) Arterial Sitting Heart Rate Pre-Dialysis 140 BPM Sitting H eart Rate Post-Dialysis 67 BPM Temperature Pre-Dialysis 98.1 degF Temperature Post -Dialysis 97 degF December 02, 2023 In-Center Hemodialysis Treatment 1637-85-21Z95:04:00.000Z 1589-21-60F61:52:16.000Z BP Sitting (Pre-Dialysis) 148/103 mmHg BP Sitting (Post-Dialysis) 145/88 mmHg Concurrent Access: falseCentral Venous Catheter (CVC) Chest (Right) Arterial Sitting Heart Rate Pre-Dialysis 138 BPM Sitting H eart Rate Post-Dialysis 108 BPM Temperature Pre-Dialysis 97.4 degF Temperature Post -Dialysis 97.2 degF November 30, 2023 In-Center Hemodialysis Treatment 2855-77-36S18:23:01.000Z 7507-90-56M17:09:46.000Z BP Sitting (Pre-Dialysis) 148/110 mmHg BP Sitting (Post-Dialysis) 127/93 mmHg Concurrent Access: falseCentral Venous Catheter (CVC) Chest (Right) Arterial Sitting Heart Rate Pre-Dialysis 120 BPM Sitting H eart Rate Post-Dialysis 80 BPM Temperature Pre-Dialysis 98.2 degF Temperature Post -Dialysis 97.6 degF November 27, 2023 In-Center Hemodialysis Treatment 3425-18-44S11:04:00.000Z 8745-77-03O35:03:43.000Z BP Sitting (Pre-Dialysis) 140/106 mmHg BP Sitting (Post-Dialysis) 119/84 mmHg Concurrent Access: falseCentral Venous Catheter (CVC) Chest (Right) Arterial Sitting Heart Rate Pre-Dialysis 139 BPM BP Standing (Post-Dialysis) 118/83 mmHg Temperature Pre-Dialysis 98.1 degF Sitting Heart Ra te Post-Dialysis 86 BPM Standing Heart Rate Post-May lysis 102 BPM Temperature Post-Dialysis 97 .3 degF November 25, 2023 In-Center Hemodialysis Treatment 4200-47-29V36:55:27.000Z 0747-71-16N69:27:57.000Z BP Sitting (Pre-Dialysis) 125/97 mmHg BP Sitting (Post-Dialysis) 104/67 mmHg Concurrent Access: falseCentral Venous Catheter (CVC) Chest (Right) Arterial Sitting Heart Rate Pre-Dialysis 120 BPM Sitting H eart Rate Post-Dialysis 81 BPM Temperature Pre-Dialysis 97.1 degF Temperature Post -Dialysis 97 degF November 23, 2023 In-Center Hemodialysis Treatment 0153-79-17Y18:59:06.000Z 6491-25-82Y65:48:36.000Z BP Sitting (Pre-Dialysis) 131/83 mmHg BP Sitting (Post-Dialysis) 212/152 mmHg Concurrent Access: falseCentral Venous Catheter (CVC) Chest (Right) Arterial Sitting Heart Rate Pre-Dialysis 55 BPM Sitting H eart Rate Post-Dialysis 94 BPM Temperature Pre-Dialysis 97.9 degF Temperature Post -Dialysis 97 degF November 20, 2023 In-Center Hemodialysis Treatment 1675-66-52S51:00:45.000Z 6269-63-90L78:52:26.000Z BP Sitting (Pre-Dialysis) 202/166 mmHg BP Sitting (Post-Dialysis) 145/109 mmHg Concurrent Access: falseCentral Venous Catheter (CVC) Chest (Right) Arterial Sitting Heart Rate Pre-Dialysis 104 BPM Sitting H eart Rate Post-Dialysis 103 BPM Temperature Pre-Dialysis 97.6 degF Temperature Post -Dialysis 97 degF November 18, 2023 In-Center Hemodialysis Treatment 8648-89-43B67:08:01.000Z 8539-06-84S55:07:26.000Z BP Sitting (Pre-Dialysis) 178/124 mmHg BP Sitting (Post-Dialysis) 162/115 mmHg Concurrent Access: falseCentral Venous Catheter (CVC) Chest (Right) Arterial Sitting Heart Rate Pre-Dialysis 106 BPM Sitting H eart Rate Post-Dialysis 106 BPM Temperature Pre-Dialysis 97.1 degF Temperature Post -Dialysis 97 degF November 16, 2023 In-Center Hemodialysis Treatment 2109-84-64N77:20:19.000Z 2517-43-52Y58:14:49.000Z BP Sitting (Pre-Dialysis) 154/111 mmHg BP Sitting (Post-Dialysis) 171/110 mmHg Concurrent Access: falseCentral Venous Catheter (CVC) Chest (Right) Arterial Sitting Heart Rate Pre-Dialysis 103 BPM Sitting H eart Rate Post-Dialysis 120 BPM Temperature Pre-Dialysis 97.5 degF Temperature Post -Dialysis 97.9 degF November 13, 2023 In-Center Hemodialysis Treatment 0909-17-26K89:08:42.000Z 0634-94-89H75:44:01.000Z BP Sitting (Pre-Dialysis) 133/91 mmHg BP Sitting (Post-Dialysis) 142/88 mmHg Concurrent Access: falseCentral Venous Catheter (CVC) Chest (Right) Arterial Sitting Heart Rate Pre-Dialysis 40 BPM Sitting H eart Rate Post-Dialysis 102 BPM Temperature Pre-Dialysis 97.3 degF Temperature Post -Dialysis 97.2 degF November 11, 2023 In-Center Hemodialysis Treatment 8388-05-19G91:09:36.000Z 6953-15-21B48:00:26.000Z BP Sitting (Pre-Dialysis) 122/83 mmHg BP Sitting (Post-Dialysis) 97/55 mmHg Concurrent Access: falseCentral Venous Catheter (CVC) Chest (Right) Arterial Sitting Heart Rate Pre-Dialysis 65 BPM Sitting H eart Rate Post-Dialysis 132 BPM Temperature Pre-Dialysis 97.9 degF Temperature Post -Dialysis 97.9 degF November 09, 2023 In-Center Hemodialysis Treatment 1738-61-13R09:09:22.000Z 0752-15-04G71:57:23.000Z BP Sitting (Pre-Dialysis) 206/146 mmHg BP Sitting (Post-Dialysis) 221/127 mmHg Concurrent Access: falseCentral Venous Catheter (CVC) Chest (Right) Arterial Sitting Heart Rate Pre-Dialysis 120 BPM Sitting H eart Rate Post-Dialysis 102 BPM Temperature Pre-Dialysis 97.1 degF Temperature Post -Dialysis 97 degF November 06, 2023 In-Center Hemodialysis Treatment 9828-97-50W54:20:06.000Z 6492-45-41K39:37:37.000Z BP Sitting (Pre-Dialysis) 177/131 mmHg BP Sitting (Post-Dialysis) 142/89 mmHg Concurrent Access: falseCentral Venous Catheter (CVC) Chest (Right) Arterial Sitting Heart Rate Pre-Dialysis 160 BPM Sitting H eart Rate Post-Dialysis 96 BPM Temperature Pre-Dialysis 98.2 degF Temperature Post -Dialysis 97 degF November 04, 2023 In-Center Hemodialysis Treatment 1715-73-60N30:11:50.000Z 7413-56-47K40:59:50.000Z BP Sitting (Pre-Dialysis) 160/114 mmHg BP Sitting (Post-Dialysis) 162/115 mmHg Concurrent Access: falseCentral Venous Catheter (CVC) Chest (Right) Arterial Sitting Heart Rate Pre-Dialysis 120 BPM Sitting H eart Rate Post-Dialysis 102 BPM Temperature Pre-Dialysis 98.1 degF Temperature Post -Dialysis 96.9 degF November 02, 2023 In-Center Hemodialysis Treatment 2387-75-83I61:09:09.000Z 9903-20-89I04:03:39.000Z BP Sitting (Pre-Dialysis) 131/99 mmHg BP Sitting (Post-Dialysis) 150/97 mmHg Concurrent Access: falseCentral Venous Catheter (CVC) Chest (Right) Arterial Sitting Heart Rate Pre-Dialysis 86 BPM Sitting H eart Rate Post-Dialysis 97 BPM Temperature Pre-Dialysis 97.2 degF Temperature Post -Dialysis 97 degF October 30, 2023 In-Center Hemodialysis Treatment 6017-29-10X56:06:45.000Z 2213-70-40A88:17:26.000Z BP Sitting (Pre-Dialysis) 148/119 mmHg BP Sitting (Post-Dialysis) 148/112 mmHg Concurrent Access: falseCentral Venous Catheter (CVC) Chest (Right) Arterial Sitting Heart Rate Pre-Dialysis 106 BPM Sitting H eart Rate Post-Dialysis 120 BPM Temperature Pre-Dialysis 97.2 degF Temperature Post -Dialysis 97 degF October 28, 2023 In-Center Hemodialysis Treatment 7004-63-49H42:12:04.000Z 7988-22-92D79:38:20.000Z BP Sitting (Pre-Dialysis) 164/134 mmHg BP Sitting (Post-Dialysis) 198/139 mmHg Concurrent Access: falseCentral Venous Catheter (CVC) Chest (Right) Arterial Sitting Heart Rate Pre-Dialysis 134 BPM Sitting H eart Rate Post-Dialysis 120 BPM Temperature Pre-Dialysis 97.1 degF Temperature Post -Dialysis 97.1 degF October 26, 2023 In-Center Hemodialysis Treatment 7187-42-03F87:08:21.000Z 2696-25-07U51:00:21.000Z BP Sitting (Pre-Dialysis) 211/170 mmHg BP Sitting (Post-Dialysis) 181/136 mmHg Concurrent Access: falseCentral Venous Catheter (CVC) Chest (Right) Arterial Sitting Heart Rate Pre-Dialysis 160 BPM BP Standing (Post-Dialysis) 171/109 mmHg Temperature Pre-Dialysis 98.8 degF Sitting Heart Ra te Post-Dialysis 109 BPM Standing Heart R ate Post-Dialysis 95 BPM Temperature Post-Dialysis 96 .9 degF October 21, 2023 In-Center Hemodialysis Treatment 9859-52-48G83:10:41.000Z 0792-88-82C75:12:56.000Z BP Sitting (Pre-Dialysis) 205/166 mmHg BP Sitting (Post-Dialysis) 200/139 mmHg Concurrent Access: falseCentral Venous Catheter (CVC) Chest (Right) Arterial BP Standing (Pre-Dialysis) 107/60 mmHg BP Standing (P ost-Dialysis) 215/167 mmHg Sitting Heart Rate Pre-Dialysis 120 BPM Sitting Heart Rate Post-Dialysis 139 BPM Standing Heart Rate Pre-Dialysis 128 BPM Standing Heart Rate Post-Dialysis 152 BPM Temperature Pre-Dialysis 97.7 degF Temperature Post -Dialysis 97 degF October 19, 2023 In-Center Hemodialysis Treatment 1174-98-77A77:09:56.000Z 8169-28-47L13:49:57.000Z BP Sitting (Pre-Dialysis) 186/124 mmHg BP Sitting (Post-Dialysis) 159/136 mmHg Concurrent Access: falseCentral Venous Catheter (CVC) Chest (Right) Arterial Sitting Heart Rate Pre-Dialysis 114 BPM Sitting H eart Rate Post-Dialysis 120 BPM Temperature Pre-Dialysis 97 degF Temperature Post -Dialysis 97 degF October 16, 2023 In-Center Hemodialysis Treatment 1621-82-25S99:08:00.000Z 3269-31-37E23:52:57.000Z BP Sitting (Pre-Dialysis) 201/182 mmHg BP Sitting (Post-Dialysis) 130/90 mmHg Concurrent Access: falseCentral Venous Catheter (CVC) Chest (Right) Arterial Sitting Heart Rate Pre-Dialysis 157 BPM BP Standing (Post-Dialysis) 127/109 mmHg Temperature Pre-Dialysis 97.5 degF Sitting Heart Ra te Post-Dialysis 65 BPM Standing Heart R ate Post-Dialysis 120 BPM Temperature Post-Dialysis 98 degF October 14, 2023 In-Center Hemodialysis Treatment 5651-56-73D49:59:58.000Z 1839-37-52D18:24:28.000Z BP Sitting (Pre-Dialysis) 147/109 mmHg BP Sitting (Post-Dialysis) 158/115 mmHg Concurrent Access: falseCentral Venous Catheter (CVC) Chest (Right) Arterial BP Standing (Pre-Dialysis) 152/99 mmHg BP Standing (P ost-Dialysis) 139/104 mmHg Sitting Heart Rate Pre-Dialysis 117 BPM Sitting Heart Rate Post-Dialysis 60 BPM Standing Heart Rate Pre-Dialysis 111 BPM Standing Heart Rate Post-Dialysis 94 BPM Temperature Pre-Dialysis 97.2 degF Temperature Post -Dialysis 97 degF October 12, 2023 In-Center Hemodialysis Treatment 2054-24-76G35:09:35.000Z 7203-64-28W37:58:44.000Z BP Sitting (Pre-Dialysis) 182/133 mmHg BP Sitting (Post-Dialysis) 134/126 mmHg Concurrent Access: falseCentral Venous Catheter (CVC) Chest (Right) Arterial Sitting Heart Rate Pre-Dialysis 120 BPM Sitting H eart Rate Post-Dialysis 103 BPM Temperature Pre-Dialysis 99 degF Temperature Post -Dialysis 97 degF October 09, 2023 In-Center Hemodialysis Treatment 0076-14-09J67:03:00.000Z 9546-76-28V60:25:28.000Z BP Sitting (Pre-Dialysis) 155/126 mmHg BP Sitting (Post-Dialysis) 150/121 mmHg Concurrent Access: falseCentral Venous Catheter (CVC) Chest (Right) Arterial BP Standing (Pre-Dialysis) 151/120 mmHg BP Standing (P ost-Dialysis) 156/100 mmHg Sitting Heart Rate Pre-Dialysis 125 BPM Sitting Heart Rate Post-Dialysis 120 BPM Standing Heart Rate Pre-Dialysis 62 BPM Standing Heart Rate Post-Dialysis 96 BPM Temperature Pre-Dialysis 97.3 degF Temperature Post -Dialysis 98 degF October 07, 2023 In-Center Hemodialysis Treatment 9469-97-00O37:53:29.000Z 8555-05-35L21:33:59.000Z BP Sitting (Pre-Dialysis) 134/104 mmHg BP Sitting (Post-Dialysis) 160/121 mmHg Concurrent Access: falseCentral Venous Catheter (CVC) Chest (Right) Arterial Sitting Heart Rate Pre-Dialysis 171 BPM BP Standing (Post-Dialysis) 154/104 mmHg Temperature Pre-Dialysis 97.3 degF Sitting Heart Ra te Post-Dialysis 107 BPM Standing Heart R ate Post-Dialysis 105 BPM October 05, 2023 In-Center Hemodialysis Treatment 7262-70-12E82:05:00.000Z 9722-80-47R70:59:41.000Z BP Sitting (Pre-Dialysis) 144/118 mmHg BP Sitting (Post-Dialysis) 147/103 mmHg Concurrent Access: falseCentral Venous Catheter (CVC) Chest (Right) Arterial Sitting Heart Rate Pre-Dialysis 120 BPM Sitting H eart Rate Post-Dialysis 106 BPM Temperature Pre-Dialysis 97.3 degF Temperature Post -Dialysis 97.2 degF October 02, 2023 In-Center Hemodialysis Treatment 7562-82-18Y48:05:34.000Z 7021-71-41B54:02:34.000Z BP Sitting (Pre-Dialysis) 138/113 mmHg BP Sitting (Post-Dialysis) 105/77 mmHg Concurrent Access: falseCentral Venous Catheter (CVC) Chest (Right) Arterial BP Standing (Pre-Dialysis) 145/104 mmHg BP Standing (P ost-Dialysis) 115/91 mmHg Sitting Heart Rate Pre-Dialysis 99 BPM Sitting Heart Rate Post-Dialysis 160 BPM Standing Heart Rate Pre-Dialysis 110 BPM Standing Heart Rate Post-Dialysis 139 BPM Temperature Pre-Dialysis 97.5 degF Temperature Post -Dialysis 97.5 degF September 30, 2023 In-Center Hemodialysis Treatment 7224-83-78P57:06:26.000Z 0155-92-83F08:40:36.000Z BP Sitting (Pre-Dialysis) 148/104 mmHg BP Sitting (Post-Dialysis) 141/111 mmHg Concurrent Access: falseCentral Venous Catheter (CVC) Chest (Right) Arterial Sitting Heart Rate Pre-Dialysis 100 BPM BP Standi ng (Post-Dialysis) 95/65 mmHg Temperature Pre-Dialysis 97.7 degF Sitting Heart Ra te Post-Dialysis 120 BPM Standing Heart Rate Post-May lysis 117 BPM Temperature Post-Dialysis 97 .5 degF September 28, 2023 In-Center Hemodialysis Treatment 6985-63-73L47:07:24.000Z 1347-98-37Q86:14:14.000Z BP Sitting (Pre-Dialysis) 184/51 mmHg BP Sitting (Post-Dialysis) 179/137 mmHg Concurrent Access: falseCentral Venous Catheter (CVC) Chest (Right) Arterial Sitting Heart Rate Pre-Dialysis 132 BPM Sitting H eart Rate Post-Dialysis 97 BPM Temperature Pre-Dialysis 97.2 degF Temperature Post -Dialysis 97 degF September 25, 2023 In-Center Hemodialysis Treatment 5154-33-49K74:11:15.000Z 3302-99-52L63:31:40.000Z BP Sitting (Pre-Dialysis) 118/78 mmHg BP Sitting (Post-Dialysis) 119/78 mmHg Concurrent Access: falseCentral Venous Catheter (CVC) Chest (Right) Arterial Sitting Heart Rate Pre-Dialysis 72 BPM BP Standi ng (Post-Dialysis) 122/96 mmHg Temperature Pre-Dialysis 97 degF Sitting Heart Ra te Post-Dialysis 114 BPM Standing Heart Rate Post-May lysis 102 BPM Temperature Post-Dialysis 97 .3 degF September 23, 2023 In-Center Hemodialysis Treatment 6841-82-68Y25:00:00.000Z 0924-87-78N72:33:14.000Z BP Sitting (Pre-Dialysis) 164/124 mmHg BP Sitting (Post-Dialysis) 130/110 mmHg Concurrent Access: falseCentral Venous Catheter (CVC) Chest (Right) Arterial Sitting Heart Rate Pre-Dialysis 160 BPM BP Standing (Post-Dialysis) 122/83 mmHg Temperature Pre-Dialysis 97.4 degF Sitting Heart Ra te Post-Dialysis 130 BPM Standing Heart Rate Post-May lysis 140 BPM Temperature Post-Dialysis 97 degF September 21, 2023 In-Center Hemodialysis Treatment 1206-51-74J46:55:34.000Z 7242-62-10J21:44:24.000Z BP Sitting (Pre-Dialysis) 169/148 mmHg BP Sitting (Post-Dialysis) 198/151 mmHg Concurrent Access: falseCentral Venous Catheter (CVC) Chest (Right) Arterial Sitting Heart Rate Pre-Dialysis 88 BPM Sitting H eart Rate Post-Dialysis 103 BPM Temperature Pre-Dialysis 97.9 degF Temperature Post -Dialysis 97 degF September 18, 2023 In-Center Hemodialysis Treatment 1583-80-01D08:16:00.000Z 9431-72-92U99:04:16.000Z BP Sitting (Pre-Dialysis) 158/126 mmHg BP Sitting (Post-Dialysis) 176/109 mmHg Concurrent Access: falseCentral Venous Catheter (CVC) Chest (Right) Arterial Sitting Heart Rate Pre-Dialysis 133 BPM Sitting H eart Rate Post-Dialysis 74 BPM Temperature Pre-Dialysis 97.2 degF Temperature Post -Dialysis 97.2 degF September 11, 2023 In-Center Hemodialysis Treatment 3650-49-33V51:05:48.000Z 1818-84-58L39:53:49.000Z BP Sitting (Pre-Dialysis) 120/78 mmHg BP Sitting (Post-Dialysis) 186/84 mmHg Concurrent Access: falseCentral Venous Catheter (CVC) Chest (Right) Arterial Sitting Heart Rate Pre-Dialysis 138 BPM Sitting H eart Rate Post-Dialysis 74 BPM Temperature Pre-Dialysis 97.5 degF Temperature Post -Dialysis 97.2 degF September 09, 2023 In-Center Hemodialysis Treatment 9031-61-07X12:07:50.000Z 7385-39-45C01:58:20.000Z BP Sitting (Pre-Dialysis) 109/74 mmHg BP Sitting (Post-Dialysis) 135/106 mmHg Concurrent Access: falseCentral Venous Catheter (CVC) Chest (Right) Arterial Sitting Heart Rate Pre-Dialysis 105 BPM BP Standi ng (Post-Dialysis) 99/71 mmHg Temperature Pre-Dialysis 97.3 degF Sitting Heart Ra te Post-Dialysis 80 BPM Standing Heart Rate Post-May lysis 77 BPM Temperature Post-Dialysis 97 degF September 07, 2023 In-Center Hemodialysis Treatment 5084-06-85C25:53:05.000Z 8154-96-03L18:57:44.000Z BP Sitting (Pre-Dialysis) 205/134 mmHg BP Sitting (Post-Dialysis) 148/98 mmHg Concurrent Access: falseCentral Venous Catheter (CVC) Chest (Right) Arterial Sitting Heart Rate Pre-Dialysis 120 BPM Sitting H eart Rate Post-Dialysis 102 BPM Temperature Pre-Dialysis 97.7 degF Temperature Post -Dialysis 97 degF September 04, 2023 In-Center Hemodialysis Treatment [id number]:06:19.000Z 6343-00-99W45:42:09.000Z BP Sitting (Pre-Dialysis) 175/135 mmHg BP Sitting (Post-Dialysis) 124/90 mmHg Concurrent Access: falseCentral Venous Catheter (CVC) Chest (Right) Arterial Sitting Heart Rate Pre-Dialysis 98 BPM Sitting H eart Rate Post-Dialysis 107 BPM Temperature Pre-Dialysis 97.7 degF Temperature Post -Dialysis 97.2 degF August 28, 2023 In-Center Hemodialysis Treatment [id number]:07:33.000Z [id number]:27:04.000Z BP Sitting (Pre-Dialysis) 174/140 mmHg BP Sitting (Post-Dialysis) 180/136 mmHg Concurrent Access: falseCentral Venous Catheter (CVC) Chest (Right) Arterial Sitting Heart Rate Pre-Dialysis 109 BPM BP Standing (Post-Dialysis) 170/142 mmHg Temperature Pre-Dialysis 97.7 degF Sitting Heart Ra te Post-Dialysis 105 BPM Standing Heart R ate Post-Dialysis 117 BPM Temperature Post-Dialysis 97 .9 degF August 26, 2023 In-Center Hemodialysis Treatment [id number]:07:36.000Z 8965-03-53H88:54:52.000Z BP Sitting (Pre-Dialysis) 166/126 mmHg BP Sitting (Post-Dialysis) 181/132 mmHg Concurrent Access: falseCentral Venous Catheter (CVC) Chest (Right) Arterial Sitting Heart Rate Pre-Dialysis 126 BPM Sitting H eart Rate Post-Dialysis 126 BPM Temperature Pre-Dialysis 97.9 degF Temperature Post -Dialysis 97.7 degF August 24, 2023 In-Center Hemodialysis Treatment [id number]:06:34.000Z 7683-59-27S63:00:04.000Z BP Sitting (Pre-Dialysis) 150/123 mmHg BP Sitting (Post-Dialysis) 162/105 mmHg Concurrent Access: falseCentral Venous Catheter (CVC) Chest (Right) Arterial Sitting Heart Rate Pre-Dialysis 130 BPM Sitting H eart Rate Post-Dialysis 102 BPM Temperature Pre-Dialysis 97.2 degF Temperature Post -Dialysis 98.6 degF August 21, 2023 In-Center Hemodialysis Treatment [id number]:10:33.000Z 6735-63-83Y48:05:34.000Z BP Sitting (Pre-Dialysis) 169/103 mmHg BP Sitting (Post-Dialysis) 167/131 mmHg Concurrent Access: falseCentral Venous Catheter (CVC) Chest (Right) Arterial Sitting Heart Rate Pre-Dialysis 120 BPM Sitting H eart Rate Post-Dialysis 97 BPM Temperature Pre-Dialysis 97.9 degF Temperature Post -Dialysis 97.3 degF August 17, 2023 In-Center Hemodialysis Treatment [id number]:56:00.000Z 3770-56-25L70:25:45.000Z BP Sitting (Pre-Dialysis) 133/111 mmHg BP Sitting (Post-Dialysis) 146/96 mmHg Concurrent Access: falseCentral Venous Catheter (CVC) Chest (Right) Arterial Sitting Heart Rate Pre-Dialysis 103 BPM Sitting H eart Rate Post-Dialysis 114 BPM Temperature Pre-Dialysis 96.8 degF Temperature Post -Dialysis 97.7 degF August 14, 2023 In-Center Hemodialysis Treatment 9966-55-87Z18:00:00.000Z 9882-31-63Q46:35:00.000Z BP Sitting (Pre-Dialysis) 131/91 mmHg BP Sitting (Post-Dialysis) 132/99 mmHg Concurrent Access: falseCentral Venous Catheter (CVC) Chest (Right) Arterial Sitting Heart Rate Pre-Dialysis 120 BPM BP Standing (Post-Dialysis) 121/81 mmHg Temperature Pre-Dialysis 97.9 degF Sitting Heart Ra te Post-Dialysis 105 BPM Standing Heart Rate Post-May lysis 80 BPM Temperature Post-Dialysis 97 .5 degF August 12, 2023 In-Center Hemodialysis Treatment 2478-69-03A18:02:04.000Z 3440-95-95O64:01:05.000Z BP Sitting (Pre-Dialysis) 136/75 mmHg BP Sitting (Post-Dialysis) 122/85 mmHg Concurrent Access: falseCentral Venous Catheter (CVC) Chest (Right) Arterial Sitting Heart Rate Pre-Dialysis 65 BPM Sitting H eart Rate Post-Dialysis 86 BPM Temperature Pre-Dialysis 97 degF Temperature Post -Dialysis 97 degF August 10, 2023 In-Center Hemodialysis Treatment 5583-30-99N25:00:00.000Z 2006-56-08G24:23:15.000Z BP Sitting (Pre-Dialysis) 146/98 mmHg BP Sitting (Post-Dialysis) 148/97 mmHg Concurrent Access: falseCentral Venous Catheter (CVC) Chest (Right) Arterial Sitting Heart Rate Pre-Dialysis 94 BPM BP Standing (Post-Dialysis) 117/84 mmHg Temperature Pre-Dialysis 97.3 degF Sitting Heart Ra te Post-Dialysis 60 BPM Standing Heart Rate Post-May lysis 100 BPM Temperature Post-Dialysis 97 .2 degF August 08, 2023 In-Center Hemodialysis Treatment 2282-57-90C50:58:12.000Z 3103-83-45R59:01:00.000Z BP Sitting (Pre-Dialysis) 125/94 mmHg BP Sitting (Post-Dialysis) 122/79 mmHg Concurrent Access: falseCentral Venous Catheter (CVC) Chest (Right) Arterial Sitting Heart Rate Pre-Dialysis 71 BPM BP Standing (Post-Dialysis) 110/68 mmHg Temperature Pre-Dialysis 97.3 degF Sitting Heart Ra te Post-Dialysis 98 BPM Standing Heart Rate Post-May lysis 105 BPM Temperature Post-Dialysis 97 .3 degF July 29, 2023 In-Center Hemodialysis Treatment 4733-94-10U76:14:19.000Z 1485-94-68J23:03:20.000Z BP Sitting (Pre-Dialysis) 120/80 mmHg BP Sitting (Post-Dialysis) 95/56 mmHg Concurrent Access: falseCentral Venous Catheter (CVC) Chest (Right) Arterial Sitting Heart Rate Pre-Dialysis 80 BPM Sitting H eart Rate Post-Dialysis 114 BPM Temperature Pre-Dialysis 96.6 degF Temperature Post -Dialysis 96.6 degF July 27, 2023 In-Center Hemodialysis Treatment 0914-47-61N32:24:00.000Z 3949-21-89C58:08:14.000Z BP Sitting (Pre-Dialysis) 112/93 mmHg BP Sitting (Post-Dialysis) 118/83 mmHg Concurrent Access: falseCentral Venous Catheter (CVC) Chest (Right) Arterial Sitting Heart Rate Pre-Dialysis 105 BPM Sitting H eart Rate Post-Dialysis 65 BPM Temperature Pre-Dialysis 98.4 degF Temperature Post -Dialysis 97.7 degF July 24, 2023 In-Center Hemodialysis Treatment [id number]:56:51.000Z 3722-68-39S31:07:51.000Z BP Sitting (Pre-Dialysis) 107/83 mmHg BP Sitting (Post-Dialysis) 126/95 mmHg Concurrent Access: falseCentral Venous Catheter (CVC) Chest (Right) Arterial Sitting Heart Rate Pre-Dialysis 85 BPM Sitting H eart Rate Post-Dialysis 88 BPM Temperature Pre-Dialysis 97.2 degF Temperature Post -Dialysis 97 degF July 22, 2023 In-Center Hemodialysis Treatment 5320-04-63Q24:20:16.000Z 4739-85-55X55:19:41.000Z BP Sitting (Pre-Dialysis) 121/83 mmHg BP Sitting (Post-Dialysis) 134/90 mmHg Concurrent Access: falseCentral Venous Catheter (CVC) Chest (Right) Arterial BP Standing (Pre-Dialysis) 105/78 mmHg BP Standing (P ost-Dialysis) 97/65 mmHg Sitting Heart Rate Pre-Dialysis 94 BPM Sitting Heart Rate Post-Dialysis 87 BPM Standing Heart Rate Pre-Dialysis 120 BPM Standing Heart Rate Post-Dialysis 89 BPM Temperature Pre-Dialysis 97.5 degF Temperature Post -Dialysis 97.2 degF July 20, 2023 In-Center Hemodialysis Treatment 6378-67-06N91:10:00.000Z 8517-94-34Y94:15:28.000Z BP Sitting (Pre-Dialysis) 154/119 mmHg BP Sitting (Post-Dialysis) 135/93 mmHg Concurrent Access: falseCentral Venous Catheter (CVC) Chest (Right) Arterial Sitting Heart Rate Pre-Dialysis 152 BPM Sitting H eart Rate Post-Dialysis 104 BPM Temperature Pre-Dialysis 97 degF Temperature Post -Dialysis 97 degF July 18, 2023 In-Center Hemodialysis Treatment [id number]:45:00.000Z 6492-90-44T42:49:00.000Z BP Sitting (Pre-Dialysis) 120/87 mmHg BP Sitting (Post-Dialysis) 165/112 mmHg Concurrent Access: falseCentral Venous Catheter (CVC) Chest (Right) Arterial Sitting Heart Rate Pre-Dialysis 120 BPM BP Standing (Post-Dialysis) 130/94 mmHg Temperature Pre-Dialysis 98.1 degF Sitting Heart Ra te Post-Dialysis 100 BPM Standing Heart Rate Post-May lysis 118 BPM Temperature Post-Dialysis 97 .2 degF July 09, 2023 Additional Day Of Dialysis Treatment [id number]:58:00.000Z 4658-10-65P98:50:00.000Z BP Sitting (Pre-Dialysis) 152/115 mmHg BP Sitting (Post-Dialysis) 155/91 mmHg Concurrent Access: falseCentral Venous Catheter (CVC) Chest (Right) Arterial BP Standing (Pre-Dialysis) 158/94 mmHg Sitting Heart Rate Post-Dialysis 106 BPM Sitting Heart Rate Pre-Dialysis 136 BPM Standing Heart Rate Pre-Dialysis 149 BPM July 08, 2023 In-Center Hemodialysis Treatment [id number]:00:00.000Z 7832-17-67L22:50:00.000Z BP Sitting (Pre-Dialysis) 122/82 mmHg BP Sitting (Post-Dialysis) 162/85 mmHg Concurrent Access: falseCentral Venous Catheter (CVC) Chest (Right) Arterial Sitting Heart Rate Pre-Dialysis 80 BPM Sitting H eart Rate Post-Dialysis 105 BPM July 06, 2023 In-Center Hemodialysis Treatment 1443-64-12S11:43:00.000Z 7908-93-06A05:45:00.000Z BP Sitting (Pre-Dialysis) 109/70 mmHg BP Sitting (Post-Dialysis) 113/76 mmHg Concurrent Access: falseCentral Venous Catheter (CVC) Chest (Right) Arterial BP Standing (Pre-Dialysis) 118/58 mmHg BP Standing (P ost-Dialysis) 105/72 mmHg Sitting Heart Rate Pre-Dialysis 130 BPM Sitting Heart Rate Post-Dialysis 69 BPM Standing Heart Rate Pre-Dialysis 133 BPM Standing Heart Rate Post-Dialysis 115 BPM July 03, 2023 In-Center Hemodialysis Treatment 1103-39-45U41:58:00.000Z 2404-46-52X21:00:00.000Z BP Sitting (Pre-Dialysis) 181/123 mmHg BP Sitting (Post-Dialysis) 176/117 mmHg Concurrent Access: falseCentral Venous Catheter (CVC) Chest (Right) Arterial BP Standing (Pre-Dialysis) 187/120 mmHg BP Standing (P ost-Dialysis) 144/117 mmHg Sitting Heart Rate Pre-Dialysis 114 BPM Sitting Heart Rate Post-Dialysis 108 BPM Standing Heart Rate Pre-Dialysis 118 BPM Standing Heart Rate Post-Dialysis 105 BPM July 02, 2023 Additional Day Of Dialysis Treatment 7962-75-91A66:00:00.000Z 2871-48-02H26:52:00.000Z BP Sitting (Pre-Dialysis) 157/110 mmHg BP Sitting (Post-Dialysis) 142/93 mmHg Concurrent Access: falseCentral Venous Catheter (CVC) Chest (Right) Arterial BP Standing (Pre-Dialysis) 158/114 mmHg BP Standing (P ost-Dialysis) 147/86 mmHg Sitting Heart Rate Pre-Dialysis 126 BPM Sitting Heart Rate Post-Dialysis 69 BPM Standing Heart Rate Pre-Dialysis 119 BPM Standing Heart Rate Post-Dialysis 119 BPM June 30, 2023 In-Center Hemodialysis Treatment [id number]:55:00.000Z 8432-69-20F77:05:00.000Z BP Sitting (Pre-Dialysis) 122/88 mmHg BP Sitting (Post-Dialysis) 138/88 mmHg Concurrent Access: falseCentral Venous Catheter (CVC) Chest (Right) Arterial Sitting Heart Rate Pre-Dialysis 73 BPM BP Standi ng (Post-Dialysis) 121/71 mmHg Sitting Heart Rate Post-Dial ysis 80 BPM Standing Heart Rate Post-May lysis 88 BPM June 29, 2023 In-Center Hemodialysis Treatment 9142-73-75W97:00:00.000Z 1759-41-05B11:00:00.000Z BP Sitting (Pre-Dialysis) 126/97 mmHg BP Sitting (Post-Dialysis) 150/86 mmHg Concurrent Access: falseCentral Venous Catheter (CVC) Chest (Right) Arterial Sitting Heart Rate Pre-Dialysis 132 BPM BP Standi ng (Post-Dialysis) 138/88 mmHg Sitting Heart Rate Post-Dial ysis 102 BPM Standing Heart Rate Post-May lysis 98 BPM June 26, 2023 In-Center Hemodialysis Treatment 0851-90-02F23:53:47.000Z 0481-06-00W34:39:21.000Z BP Sitting (Pre-Dialysis) 98/88 mmHg BP Sitting (Post-Dialysis) 128/86 mmHg Concurrent Access: falseCentral Venous Catheter (CVC) Chest (Right) Arterial BP Standing (Pre-Dialysis) 130/106 mmHg BP Standing (P ost-Dialysis) 158/115 mmHg Sitting Heart Rate Pre-Dialysis 114 BPM Sitting Heart Rate Post-Dialysis 102 BPM Standing Heart Rate Pre-Dialysis 103 BPM Standing Heart Rate Post-Dialysis 126 BPM Temperature Pre-Dialysis 98.1 degF Temperature Post -Dialysis 97.7 degF June 22, 2023 In-Center Hemodialysis Treatment 2036-40-17S55:57:33.000Z 7508-47-83Z94:54:33.000Z BP Sitting (Pre-Dialysis) 137/98 mmHg BP Sitting (Post-Dialysis) 100/66 mmHg Concurrent Access: falseCentral Venous Catheter (CVC) Chest (Right) Arterial Sitting Heart Rate Pre-Dialysis 145 BPM BP Standing (Post-Dialysis) 110/64 mmHg Temperature Pre-Dialysis 97.7 degF Sitting Heart Ra te Post-Dialysis 60 BPM Standing Heart Rate Post-May lysis 64 BPM Temperature Post-Dialysis 97 degF June 19, 2023 In-Center Hemodialysis Treatment 8895-35-94V41:44:00.000Z 4355-04-97W09:32:00.000Z BP Sitting (Pre-Dialysis) 146/98 mmHg BP Sitting (Post-Dialysis) 117/90 mmHg Concurrent Access: falseCentral Venous Catheter (CVC) Chest (Right) Arterial BP Standing (Pre-Dialysis) 124/95 mmHg BP Standing (P ost-Dialysis) 115/78 mmHg Sitting Heart Rate Pre-Dialysis 94 BPM Sitting Heart Rate Post-Dialysis 97 BPM Standing Heart Rate Pre-Dialysis 137 BPM Standing Heart Rate Post-Dialysis 96 BPM Temperature Pre-Dialysis 97.7 degF Temperature Post -Dialysis 97.5 degF June 17, 2023 In-Center Hemodialysis Treatment 1294-94-16L86:40:00.000Z 6221-08-00C49:34:00.000Z BP Sitting (Pre-Dialysis) 145/98 mmHg BP Sitting (Post-Dialysis) 119/103 mmHg Concurrent Access: falseCentral Venous Catheter (CVC) Chest (Right) Arterial Sitting Heart Rate Pre-Dialysis 100 BPM BP Standing (Post-Dialysis) 110/84 mmHg Temperature Pre-Dialysis 97.7 degF Sitting Heart Ra te Post-Dialysis 108 BPM Standing Heart Rate Post-May lysis 125 BPM Temperature Post-Dialysis 97 .7 degF June 15, 2023 In-Center Hemodialysis Treatment 7886-71-80F86:01:00.000Z 5332-91-21P45:11:09.000Z BP Sitting (Pre-Dialysis) 86/70 mmHg BP Sitting (Post-Dialysis) 161/78 mmHg Concurrent Access: falseCentral Venous Catheter (CVC) Chest (Right) Arterial Sitting Heart Rate Pre-Dialysis 98 BPM BP Standing (Post-Dialysis) 131/104 mmHg Temperature Pre-Dialysis 97.2 degF Sitting Heart Ra te Post-Dialysis 74 BPM Standing Heart R ate Post-Dialysis 105 BPM Temperature Post-Dialysis 97 .3 degF June 12, 2023 In-Center Hemodialysis Treatment 4498-57-36G59:53:15.000Z 1786-70-45K96:40:15.000Z BP Sitting (Pre-Dialysis) 150/97 mmHg BP Sitting (Post-Dialysis) 127/93 mmHg Concurrent Access: falseCentral Venous Catheter (CVC) Chest (Right) Arterial Sitting Heart Rate Pre-Dialysis 138 BPM BP Standi ng (Post-Dialysis) 104/80 mmHg Temperature Pre-Dialysis 98 degF Sitting Heart Ra te Post-Dialysis 81 BPM Standing Heart Rate Post-May lysis 85 BPM Temperature Post-Dialysis 97 .4 degF June 10, 2023 In-Center Hemodialysis Treatment 0437-52-81L44:57:03.000Z 3846-14-50C25:59:09.000Z BP Sitting (Pre-Dialysis) 117/92 mmHg BP Sitting (Post-Dialysis) 129/85 mmHg Concurrent Access: falseCentral Venous Catheter (CVC) Chest (Right) Arterial Sitting Heart Rate Pre-Dialysis 103 BPM BP Standi ng (Post-Dialysis) 100/82 mmHg Temperature Pre-Dialysis 97 degF Sitting Heart Ra te Post-Dialysis 96 BPM Standing Heart Rate Post-May lysis 104 BPM Temperature Post-Dialysis 98 degF June 08, 2023 In-Center Hemodialysis Treatment 1633-80-31O55:00:41.000Z 6770-59-08B36:18:36.000Z BP Sitting (Pre-Dialysis) 195/83 mmHg BP Sitting (Post-Dialysis) 136/96 mmHg Concurrent Access: falseCentral Venous Catheter (CVC) Chest (Right) Arterial BP Standing (Pre-Dialysis) 196/85 mmHg Sitti ng Heart Rate Post-Dialysis 125 BPM Sitting Heart Rate Pre-Dialysis 120 BPM Temperatu re Post-Dialysis 97.6 degF Standing Heart Rate Pre-Dialysis 120 BPM Temperature Pre-Dialysis 96.1 degF June 05, 2023 In-Center Hemodialysis Treatment 6074-10-58O07:19:28.000Z 9277-65-78B44:53:59.000Z BP Sitting (Pre-Dialysis) 156/129 mmHg BP Sitting (Post-Dialysis) 137/88 mmHg Concurrent Access: falseCentral Venous Catheter (CVC) Chest (Right) Arterial Sitting Heart Rate Pre-Dialysis 139 BPM Sitting H eart Rate Post-Dialysis 60 BPM Temperature Pre-Dialysis 97.9 degF Temperature Post -Dialysis 97 degF June 03, 2023 In-Center Hemodialysis Treatment 8873-76-42C71:04:41.000Z 8962-52-01B46:59:42.000Z BP Sitting (Pre-Dialysis) 127/107 mmHg BP Sitting (Post-Dialysis) 146/99 mmHg Concurrent Access: falseCentral Venous Catheter (CVC) Chest (Right) Arterial BP Standing (Pre-Dialysis) 170/118 mmHg Sitti ng Heart Rate Post-Dialysis 94 BPM Sitting Heart Rate Pre-Dialysis 106 BPM Temperatu re Post-Dialysis 97 degF Standing Heart Rate Pre-Dialysis 169 BPM Temperature Pre-Dialysis 97.3 degF June 01, 2023 In-Center Hemodialysis Treatment 7987-35-72W40:00:00.000Z 3491-32-85I43:03:07.000Z BP Sitting (Pre-Dialysis) 186/145 mmHg BP Sitting (Post-Dialysis) 153/98 mmHg Concurrent Access: falseCentral Venous Catheter (CVC) Chest (Right) Arterial Sitting Heart Rate Pre-Dialysis 80 BPM BP Standi ng (Post-Dialysis) 108/82 mmHg Temperature Pre-Dialysis 97 degF Sitting Heart Ra te Post-Dialysis 72 BPM Standing Heart Rate Post-May lysis 120 BPM Temperature Post-Dialysis 97 .1 degF May 29, 2023 In-Center Hemodialysis Treatment 9182-31-58Y56:09:00.000Z 8526-90-11S69:21:53.000Z BP Sitting (Pre-Dialysis) 184/123 mmHg BP Sitting (Post-Dialysis) 154/132 mmHg Concurrent Access: falseCentral Venous Catheter (CVC) Chest (Right) Arterial BP Standing (Pre-Dialysis) 128/104 mmHg BP Standing (P ost-Dialysis) 121/103 mmHg Sitting Heart Rate Pre-Dialysis 114 BPM Sitting Heart Rate Post-Dialysis 108 BPM Standing Heart Rate Pre-Dialysis 154 BPM Standing Heart Rate Post-Dialysis 80 BPM Temperature Pre-Dialysis 97.4 degF Temperature Post -Dialysis 97.3 degF May 27, 2023 In-Center Hemodialysis Treatment 8517-55-11A04:45:00.000Z 0131-15-17B50:48:00.000Z BP Sitting (Pre-Dialysis) 204/158 mmHg BP Sitting (Post-Dialysis) 145/102 mmHg Concurrent Access: falseCentral Venous Catheter (CVC) Chest (Right) Arterial Sitting Heart Rate Pre-Dialysis 139 BPM Sitting H eart Rate Post-Dialysis 120 BPM Temperature Pre-Dialysis 97.5 degF Temperature Post -Dialysis 97.4 degF May 25, 2023 In-Center Hemodialysis Treatment 5903-72-72D84:07:00.000Z 4459-01-97G84:05:53.000Z BP Sitting (Pre-Dialysis) 152/115 mmHg BP Sitting (Post-Dialysis) 188/132 mmHg Concurrent Access: falseCentral Venous Catheter (CVC) Chest (Right) Arterial BP Standing (Pre-Dialysis) 109/90 mmHg BP Standing (P ost-Dialysis) 150/127 mmHg Sitting Heart Rate Pre-Dialysis 120 BPM Sitting Heart Rate Post-Dialysis 107 BPM Standing Heart Rate Pre-Dialysis 148 BPM Standing Heart Rate Post-Dialysis 103 BPM Temperature Pre-Dialysis 97.4 degF Temperature Post -Dialysis 97.5 degF May 22, 2023 In-Center Hemodialysis Treatment 3215-79-05L43:09:08.000Z 4522-59-93A56:01:59.000Z BP Sitting (Pre-Dialysis) 135/94 mmHg BP Sitting (Post-Dialysis) 115/94 mmHg Concurrent Access: falseCentral Venous Catheter (CVC) Chest (Right) Arterial BP Standing (Pre-Dialysis) 127/101 mmHg Sitti ng Heart Rate Post-Dialysis 117 BPM Sitting Heart Rate Pre-Dialysis 112 BPM Temperatu re Post-Dialysis 97.3 degF Standing Heart Rate Pre-Dialysis 114 BPM Temperature Pre-Dialysis 96.6 degF May 20, 2023 In-Center Hemodialysis Treatment [id number]:57:24.000Z 0297-74-29S70:44:54.000Z BP Sitting (Pre-Dialysis) 158/144 mmHg BP Sitting (Post-Dialysis) 94/79 mmHg Concurrent Access: falseCentral Venous Catheter (CVC) Chest (Right) Arterial BP Standing (Pre-Dialysis) 141/121 mmHg BP Standing (P ost-Dialysis) 113/57 mmHg Sitting Heart Rate Pre-Dialysis 137 BPM Sitting Heart Rate Post-Dialysis 106 BPM Standing Heart Rate Pre-Dialysis 120 BPM Standing Heart Rate Post-Dialysis 117 BPM Temperature Pre-Dialysis 96.9 degF Temperature Post -Dialysis 96.8 degF May 18, 2023 In-Center Hemodialysis Treatment 3683-72-29L96:02:00.000Z 0021-19-58P28:46:50.000Z BP Sitting (Pre-Dialysis) 168/107 mmHg BP Sitting (Post-Dialysis) 109/66 mmHg Concurrent Access: falseCentral Venous Catheter (CVC) Chest (Right) Arterial Sitting Heart Rate Pre-Dialysis 160 BPM Sitting H eart Rate Post-Dialysis 101 BPM Temperature Pre-Dialysis 97.2 degF Temperature Post -Dialysis 97.3 degF May 15, 2023 In-Center Hemodialysis Treatment 8745-13-91V37:07:53.000Z 0967-13-58E28:54:43.000Z BP Sitting (Pre-Dialysis) 202/148 mmHg BP Sitting (Post-Dialysis) 142/62 mmHg Concurrent Access: falseCentral Venous Catheter (CVC) Chest (Right) Arterial BP Standing (Pre-Dialysis) 175/147 mmHg BP Standing (P ost-Dialysis) 120/80 mmHg Sitting Heart Rate Pre-Dialysis 126 BPM Sitting Heart Rate Post-Dialysis 96 BPM Standing Heart Rate Pre-Dialysis 124 BPM Standing Heart Rate Post-Dialysis 102 BPM Temperature Pre-Dialysis 98.1 degF Temperature Post -Dialysis 97.7 degF May 13, 2023 In-Center Hemodialysis Treatment 6600-87-24Y10:02:58.000Z 7817-50-49O38:29:58.000Z BP Sitting (Pre-Dialysis) 138/118 mmHg BP Sitting (Post-Dialysis) 130/92 mmHg Concurrent Access: falseCentral Venous Catheter (CVC) Chest (Right) Arterial BP Standing (Pre-Dialysis) 178/122 mmHg Sitti ng Heart Rate Post-Dialysis 109 BPM Sitting Heart Rate Pre-Dialysis 157 BPM Temperatu re Post-Dialysis 97.2 degF Standing Heart Rate Pre-Dialysis 120 BPM Temperature Pre-Dialysis 97.3 degF May 11, 2023 In-Center Hemodialysis Treatment 0293-26-44V92:05:00.000Z 5754-98-57B00:34:34.000Z BP Sitting (Pre-Dialysis) 131/96 mmHg BP Sitting (Post-Dialysis) 123/103 mmHg Concurrent Access: falseCentral Venous Catheter (CVC) Chest (Right) Arterial Sitting Heart Rate Pre-Dialysis 120 BPM Sitting H eart Rate Post-Dialysis 120 BPM Temperature Pre-Dialysis 97.6 degF Temperature Post -Dialysis 97.5 degF May 08, 2023 In-Center Hemodialysis Treatment 5531-44-49B14:58:00.000Z 2475-93-38F39:23:15.000Z BP Sitting (Pre-Dialysis) 199/153 mmHg BP Sitting (Post-Dialysis) 122/80 mmHg Concurrent Access: falseCentral Venous Catheter (CVC) Chest (Right) Arterial Sitting Heart Rate Pre-Dialysis 92 BPM BP Standing (Post-Dialysis) 105/71 mmHg Temperature Pre-Dialysis 97.5 degF Sitting Heart Ra te Post-Dialysis 120 BPM Standing Heart Rate Post-May lysis 70 BPM Temperature Post-Dialysis 97 .9 degF May 06, 2023 In-Center Hemodialysis Treatment 0616-27-73K90:00:36.000Z 2155-71-02S59:00:36.000Z BP Sitting (Pre-Dialysis) 161/133 mmHg BP Sitting (Post-Dialysis) 131/104 mmHg Concurrent Access: falseCentral Venous Catheter (CVC) Chest (Right) Arterial BP Standing (Pre-Dialysis) 175/123 mmHg BP Standing (P ost-Dialysis) 147/99 mmHg Sitting Heart Rate Pre-Dialysis 120 BPM Sitting Heart Rate Post-Dialysis 94 BPM Standing Heart Rate Pre-Dialysis 69 BPM Standing Heart Rate Post-Dialysis 66 BPM Temperature Pre-Dialysis 97.5 degF Temperature Post -Dialysis 97 degF May 04, 2023 In-Center Hemodialysis Treatment 2588-99-50I13:06:02.000Z 2819-77-99W11:54:03.000Z BP Sitting (Pre-Dialysis) 163/105 mmHg BP Sitting (Post-Dialysis) 115/89 mmHg Concurrent Access: falseCentral Venous Catheter (CVC) Chest (Right) Arterial BP Standing (Pre-Dialysis) 150/119 mmHg BP Standing (P ost-Dialysis) 152/102 mmHg Sitting Heart Rate Pre-Dialysis 138 BPM Sitting Heart Rate Post-Dialysis 88 BPM Standing Heart Rate Pre-Dialysis 120 BPM Standing Heart Rate Post-Dialysis 89 BPM Temperature Pre-Dialysis 96.8 degF Temperature Post -Dialysis 97 degF May 01, 2023 In-Center Hemodialysis Treatment 9268-04-39O55:02:00.000Z 4909-42-99N56:47:53.000Z BP Sitting (Pre-Dialysis) 183/127 mmHg BP Sitting (Post-Dialysis) 136/103 mmHg Concurrent Access: falseCentral Venous Catheter (CVC) Chest (Right) Arterial Sitting Heart Rate Pre-Dialysis 120 BPM BP Standing (Post-Dialysis) 154/113 mmHg Temperature Pre-Dialysis 97.3 degF Sitting Heart Ra te Post-Dialysis 120 BPM Standing Heart R ate Post-Dialysis 117 BPM Temperature Post-Dialysis 97 degF April 29, 2023 In-Center Hemodialysis Treatment [id number]:51:49.000Z 7533-37-19Y20:15:46.000Z BP Sitting (Pre-Dialysis) 190/133 mmHg BP Sitting (Post-Dialysis) 154/87 mmHg Concurrent Access: falseCentral Venous Catheter (CVC) Chest (Right) Arterial BP Standing (Pre-Dialysis) 168/124 mmHg BP Standing (P ost-Dialysis) 123/98 mmHg Sitting Heart Rate Pre-Dialysis 139 BPM Sitting Heart Rate Post-Dialysis 95 BPM Standing Heart Rate Pre-Dialysis 120 BPM Standing Heart Rate Post-Dialysis 84 BPM Temperature Pre-Dialysis 97.2 degF Temperature Post -Dialysis 97 degF April 27, 2023 In-Center Hemodialysis Treatment 3597-59-28W79:05:27.000Z 6181-88-01X30:53:27.000Z BP Sitting (Pre-Dialysis) 112/54 mmHg BP Sitting (Post-Dialysis) 163/132 mmHg Concurrent Access: falseCentral Venous Catheter (CVC) Chest (Right) Arterial BP Standing (Pre-Dialysis) 194/140 mmHg BP Standing (P ost-Dialysis) 139/107 mmHg Sitting Heart Rate Pre-Dialysis 169 BPM Sitting Heart Rate Post-Dialysis 96 BPM Standing Heart Rate Pre-Dialysis 149 BPM Standing Heart Rate Post-Dialysis 99 BPM Temperature Pre-Dialysis 97 degF Temperature Post -Dialysis 97 degF April 24, 2023 In-Center Hemodialysis Treatment 7551-49-11Q23:05:19.000Z 2327-84-74Z57:33:50.000Z BP Sitting (Pre-Dialysis) 134/117 mmHg BP Sitting (Post-Dialysis) 128/91 mmHg Concurrent Access: falseCentral Venous Catheter (CVC) Chest (Right) Arterial Sitting Heart Rate Pre-Dialysis 104 BPM BP Standing (Post-Dialysis) 102/74 mmHg Temperature Pre-Dialysis 97.2 degF Sitting Heart Ra te Post-Dialysis 80 BPM Standing Heart Rate Post-May lysis 112 BPM Temperature Post-Dialysis 97 .2 degF April 17, 2023 In-Center Hemodialysis Treatment 6217-94-87U99:12:00.000Z 9773-17-97J19:28:06.000Z BP Sitting (Pre-Dialysis) 88/70 mmHg BP Sitting (Post-Dialysis) 121/95 mmHg Concurrent Access: falseCentral Venous Catheter (CVC) Other Arterial Sitting Heart Rate Pre-Dialysis 153 BPM Sitting H eart Rate Post-Dialysis 120 BPM Temperature Pre-Dialysis 97.2 degF Temperature Post -Dialysis 97 degF April 10, 2023 In-Center Hemodialysis Treatment [id number]:13:00.000Z 1965-91-30Q67:39:40.000Z BP Sitting (Pre-Dialysis) 152/104 mmHg BP Sitting (Post-Dialysis) 98/58 mmHg Concurrent Access: falseCentral Venous Catheter (CVC) Other Arterial BP Standing (Pre-Dialysis) 139/100 mmHg Sitti ng Heart Rate Post-Dialysis 95 BPM Sitting Heart Rate Pre-Dialysis 110 BPM Temperatu re Post-Dialysis 97 degF Standing Heart Rate Pre-Dialysis 135 BPM Temperature Pre-Dialysis 97.9 degF April 08, 2023 In-Center Hemodialysis Treatment [id number]:00:00.000Z 2829-09-63V07:48:40.000Z BP Sitting (Pre-Dialysis) 190/134 mmHg BP Sitting (Post-Dialysis) 143/84 mmHg Concurrent Access: falseCentral Venous Catheter (CVC) Other Arterial BP Standing (Pre-Dialysis) 199/146 mmHg BP Standing (P ost-Dialysis) 139/94 mmHg Sitting Heart Rate Pre-Dialysis 138 BPM Sitting Heart Rate Post-Dialysis 99 BPM Standing Heart Rate Pre-Dialysis 122 BPM Standing Heart Rate Post-Dialysis 101 BPM Temperature Pre-Dialysis 97.2 degF Temperature Post -Dialysis 97.2 degF April 06, 2023 In-Center Hemodialysis Treatment 9543-64-01I87:00:08.000Z 4873-54-23I30:10:08.000Z BP Sitting (Pre-Dialysis) 122/80 mmHg BP Sitting (Post-Dialysis) 136/85 mmHg Concurrent Access: falseCentral Venous Catheter (CVC) Other Arterial Sitting Heart Rate Pre-Dialysis 108 BPM Sitting H eart Rate Post-Dialysis 93 BPM Temperature Pre-Dialysis 96.4 degF Temperature Post -Dialysis 98 degF April 03, 2023 In-Center Hemodialysis Treatment [id number]:05:20.000Z 7123-86-51E31:40:20.000Z BP Sitting (Pre-Dialysis) 176/114 mmHg BP Sitting (Post-Dialysis) 153/101 mmHg Concurrent Access: falseCentral Venous Catheter (CVC) Other Arterial BP Standing (Pre-Dialysis) 213/139 mmHg BP Standing (P ost-Dialysis) 154/98 mmHg Sitting Heart Rate Pre-Dialysis 117 BPM Sitting Heart Rate Post-Dialysis 84 BPM Standing Heart Rate Pre-Dialysis 109 BPM Standing Heart Rate Post-Dialysis 90 BPM Temperature Pre-Dialysis 96.3 degF Temperature Post -Dialysis 97 degF April 01, 2023 In-Center Hemodialysis Treatment [id number]:52:00.000Z 9363-93-21U41:29:20.000Z BP Sitting (Pre-Dialysis) 109/92 mmHg BP Sitting (Post-Dialysis) 123/82 mmHg Concurrent Access: falseCentral Venous Catheter (CVC) Other Arterial Sitting Heart Rate Pre-Dialysis 88 BPM BP Standi ng (Post-Dialysis) 135/92 mmHg Temperature Pre-Dialysis 97 degF Sitting Heart Ra te Post-Dialysis 97 BPM Standing Heart Rate Post-May lysis 125 BPM Temperature Post-Dialysis 97 degF March 30, 2023 In-Center Hemodialysis Treatment [id number]:55:20.000Z 3221-67-18N42:40:20.000Z BP Sitting (Pre-Dialysis) 172/133 mmHg BP Sitting (Post-Dialysis) 106/90 mmHg Concurrent Access: falseCentral Venous Catheter (CVC) Other Arterial Sitting Heart Rate Pre-Dialysis 139 BPM BP Standing (Post-Dialysis) 113/80 mmHg Temperature Pre-Dialysis 97.3 degF Sitting Heart Ra te Post-Dialysis 96 BPM Standing Heart Rate Post-May lysis 96 BPM Temperature Post-Dialysis 96 .6 degF March 20, 2023 In-Center Hemodialysis Treatment 0514-36-36L63:03:00.000Z 7558-40-64P61:43:13.000Z BP Sitting (Pre-Dialysis) 127/75 mmHg BP Sitting (Post-Dialysis) 109/80 mmHg Concurrent Access: falseCentral Venous Catheter (CVC) Other Arterial BP Standing (Pre-Dialysis) 123/84 mmHg BP Standing (P ost-Dialysis) 98/50 mmHg Sitting Heart Rate Pre-Dialysis 87 BPM Sitting Heart Rate Post-Dialysis 110 BPM Standing Heart Rate Pre-Dialysis 86 BPM Standing Heart Rate Post-Dialysis 125 BPM Temperature Pre-Dialysis 96.9 degF Temperature Post -Dialysis 97.1 degF March 18, 2023 In-Center Hemodialysis Treatment [id number]:59:00.000Z 2874-08-88Y33:29:13.000Z BP Sitting (Pre-Dialysis) 139/94 mmHg BP Sitting (Post-Dialysis) 94/69 mmHg Concurrent Access: falseCentral Venous Catheter (CVC) Other Arterial Sitting Heart Rate Pre-Dialysis 138 BPM Sitting H eart Rate Post-Dialysis 107 BPM Temperature Pre-Dialysis 97.2 degF Temperature Post -Dialysis 97.2 degF March 16, 2023 In-Center Hemodialysis Treatment [id number]:04:13.000Z 5218-25-15S76:46:13.000Z BP Sitting (Pre-Dialysis) 173/116 mmHg BP Sitting (Post-Dialysis) 124/86 mmHg Concurrent Access: falseCentral Venous Catheter (CVC) Other Arterial BP Standing (Pre-Dialysis) 142/120 mmHg BP Standing (P ost-Dialysis) 110/90 mmHg Sitting Heart Rate Pre-Dialysis 110 BPM Sitting Heart Rate Post-Dialysis 107 BPM Standing Heart Rate Pre-Dialysis 102 BPM Standing Heart Rate Post-Dialysis 102 BPM Temperature Pre-Dialysis 97.2 degF Temperature Post -Dialysis 97.2 degF March 13, 2023 In-Center Hemodialysis Treatment [id number]:59:34.000Z 2591-59-42J94:05:34.000Z BP Sitting (Pre-Dialysis) 174/141 mmHg BP Sitting (Post-Dialysis) 147/109 mmHg Concurrent Access: falseCentral Venous Catheter (CVC) Other Arterial BP Standing (Pre-Dialysis) 144/101 mmHg BP Standing (P ost-Dialysis) 171/93 mmHg Sitting Heart Rate Pre-Dialysis 118 BPM Sitting Heart Rate Post-Dialysis 113 BPM Standing Heart Rate Pre-Dialysis 130 BPM Standing Heart Rate Post-Dialysis 103 BPM Temperature Pre-Dialysis 97.2 degF Temperature Post -Dialysis 98 degF March 11, 2023 In-Center Hemodialysis Treatment [id number]:02:41.000Z 3080-20-80U49:32:42.000Z BP Sitting (Pre-Dialysis) 192/120 mmHg BP Sitting (Post-Dialysis) 165/92 mmHg Concurrent Access: falseCentral Venous Catheter (CVC) Other Arterial BP Standing (Pre-Dialysis) 168/102 mmHg BP Standing (P ost-Dialysis) 167/124 mmHg Sitting Heart Rate Pre-Dialysis 144 BPM Sitting Heart Rate Post-Dialysis 136 BPM Standing Heart Rate Pre-Dialysis 144 BPM Standing Heart Rate Post-Dialysis 94 BPM Temperature Pre-Dialysis 98.7 degF Temperature Post -Dialysis 98.7 degF March 09, 2023 In-Center Hemodialysis Treatment [id number]:59:41.000Z 3958-47-27B05:49:42.000Z BP Sitting (Pre-Dialysis) 168/129 mmHg BP Sitting (Post-Dialysis) 166/108 mmHg Concurrent Access: falseCentral Venous Catheter (CVC) Other Arterial Sitting Heart Rate Pre-Dialysis 125 BPM BP Standing (Post-Dialysis) 122/106 mmHg Temperature Pre-Dialysis 98.8 degF Sitting Heart Ra te Post-Dialysis 84 BPM Standing Heart R ate Post-Dialysis 115 BPM March 06, 2023 In-Center Hemodialysis Treatment [id number]:18:35.000Z 8591-84-86F82:02:36.000Z BP Sitting (Pre-Dialysis) 140/125 mmHg BP Sitting (Post-Dialysis) 166/101 mmHg Concurrent Access: falseCentral Venous Catheter (CVC) Other Arterial BP Standing (Pre-Dialysis) 162/124 mmHg BP Standing (P ost-Dialysis) 143/101 mmHg Sitting Heart Rate Pre-Dialysis 158 BPM Sitting Heart Rate Post-Dialysis 105 BPM Standing Heart Rate Pre-Dialysis 157 BPM Standing Heart Rate Post-Dialysis 106 BPM Temperature Pre-Dialysis 98.8 degF Temperature Post -Dialysis 98.9 degF March 04, 2023 In-Center Hemodialysis Treatment [id number]:06:00.000Z 2487-67-17W19:31:36.000Z BP Sitting (Pre-Dialysis) 111/80 mmHg BP Sitting (Post-Dialysis) 99/59 mmHg Concurrent Access: falseCentral Venous Catheter (CVC) Other Arterial BP Standing (Pre-Dialysis) 137/103 mmHg Sitti ng Heart Rate Post-Dialysis 99 BPM Sitting Heart Rate Pre-Dialysis 119 BPM Temperatu re Post-Dialysis 97.2 degF Standing Heart Rate Pre-Dialysis 122 BPM Temperature Pre-Dialysis 97.2 degF March 02, 2023 In-Center Hemodialysis Treatment [id number]:13:02.000Z 8955-42-46X78:41:03.000Z BP Sitting (Pre-Dialysis) 143/101 mmHg BP Sitting (Post-Dialysis) 96/55 mmHg Concurrent Access: falseCentral Venous Catheter (CVC) Other Arterial BP Standing (Pre-Dialysis) 174/132 mmHg BP Standing (P ost-Dialysis) 115/76 mmHg Sitting Heart Rate Pre-Dialysis 137 BPM Sitting Heart Rate Post-Dialysis 101 BPM Standing Heart Rate Pre-Dialysis 135 BPM Standing Heart Rate Post-Dialysis 103 BPM Temperature Pre-Dialysis 97 degF Temperature Post -Dialysis 97 degF February 27, 2023 In-Center Hemodialysis Treatment 1602-41-71B97:01:00.000Z 5846-42-13Z21:50:06.000Z BP Sitting (Pre-Dialysis) 126/81 mmHg BP Sitting (Post-Dialysis) 124/97 mmHg Concurrent Access: falseCentral Venous Catheter (CVC) Other Arterial BP Standing (Pre-Dialysis) 105/78 mmHg Sitti ng Heart Rate Post-Dialysis 98 BPM Sitting Heart Rate Pre-Dialysis 112 BPM Temperatu re Post-Dialysis 98.7 degF Standing Heart Rate Pre-Dialysis 93 BPM Temperature Pre-Dialysis 97.8 degF February 20, 2023 In-Center Hemodialysis Treatment 8026-36-36G94:03:00.000Z 3103-28-59I36:51:38.000Z BP Sitting (Pre-Dialysis) 199/124 mmHg BP Sitting (Post-Dialysis) 162/129 mmHg Concurrent Access: falseCentral Venous Catheter (CVC) Other Arterial Sitting Heart Rate Pre-Dialysis 119 BPM BP Standi ng (Post-Dialysis) 178/117 mmHg Temperature Pre-Dialysis 98 degF Sitting Heart Ra te Post-Dialysis 131 BPM Standing Heart Rate Post-May lysis 93 BPM Temperature Post-Dialysis 97 .4 degF February 17, 2023 In-Center Hemodialysis Treatment 8900-77-23N02:01:20.000Z 1857-65-83A40:54:20.000Z BP Sitting (Pre-Dialysis) 144/94 mmHg BP Sitting (Post-Dialysis) 98/80 mmHg Concurrent Access: falseCentral Venous Catheter (CVC) Other Arterial BP Standing (Pre-Dialysis) 158/106 mmHg BP Standing (P ost-Dialysis) 108/68 mmHg Sitting Heart Rate Pre-Dialysis 137 BPM Sitting Heart Rate Post-Dialysis 67 BPM Standing Heart Rate Pre-Dialysis 142 BPM Standing Heart Rate Post-Dialysis 95 BPM Temperature Pre-Dialysis 98.8 degF Temperature Post -Dialysis 97.2 degF February 15, 2023 In-Center Hemodialysis Treatment [id number]:05:00.000Z 1380-28-00U19:37:22.000Z BP Sitting (Pre-Dialysis) 210/151 mmHg BP Sitting (Post-Dialysis) 168/150 mmHg Concurrent Access: falseCentral Venous Catheter (CVC) Other Arterial BP Standing (Pre-Dialysis) 208/162 mmHg BP Standing (P ost-Dialysis) 153/116 mmHg Sitting Heart Rate Pre-Dialysis 139 BPM Sitting Heart Rate Post-Dialysis 123 BPM Standing Heart Rate Pre-Dialysis 131 BPM Standing Heart Rate Post-Dialysis 123 BPM Temperature Pre-Dialysis 97 degF Temperature Post -Dialysis 97 degF February 13, 2023 In-Center Hemodialysis Treatment 8585-85-12E55:09:00.000Z 2309-57-94H09:07:22.000Z BP Sitting (Pre-Dialysis) 125/74 mmHg BP Sitting (Post-Dialysis) 117/71 mmHg Concurrent Access: falseCentral Venous Catheter (CVC) Other Arterial Sitting Heart Rate Pre-Dialysis 101 BPM BP Standing (Post-Dialysis) 113/67 mmHg Temperature Pre-Dialysis 98.3 degF Sitting Heart Ra te Post-Dialysis 85 BPM Standing Heart Rate Post-May lysis 85 BPM Temperature Post-Dialysis 98 degF February 09, 2023 In-Center Hemodialysis Treatment 5634-69-94E16:09:24.000Z 5325-31-64O87:17:24.000Z BP Sitting (Pre-Dialysis) 153/108 mmHg BP Sitting (Post-Dialysis) 121/84 mmHg Concurrent Access: falseCentral Venous Catheter (CVC) Other Arterial BP Standing (Pre-Dialysis) 121/83 mmHg BP Standing (P ost-Dialysis) 129/87 mmHg Sitting Heart Rate Pre-Dialysis 112 BPM Sitting Heart Rate Post-Dialysis 85 BPM Standing Heart Rate Pre-Dialysis 123 BPM Standing Heart Rate Post-Dialysis 84 BPM Temperature Pre-Dialysis 97.9 degF Temperature Post -Dialysis 98.1 degF February 06, 2023 In-Center Hemodialysis Treatment 4628-74-83X13:06:00.000Z 8227-98-69M28:54:25.000Z BP Sitting (Pre-Dialysis) 146/98 mmHg BP Sitting (Post-Dialysis) 122/76 mmHg Concurrent Access: falseCentral Venous Catheter (CVC) Other Arterial BP Standing (Pre-Dialysis) 131/86 mmHg BP Standing (P ost-Dialysis) 104/59 mmHg Sitting Heart Rate Pre-Dialysis 115 BPM Sitting Heart Rate Post-Dialysis 82 BPM Standing Heart Rate Pre-Dialysis 120 BPM Standing Heart Rate Post-Dialysis 87 BPM Temperature Pre-Dialysis 98.3 degF Temperature Post -Dialysis 98.4 degF February 04, 2023 In-Center Hemodialysis Treatment 9930-72-13D27:10:17.000Z 0637-99-57T58:43:44.000Z BP Sitting (Pre-Dialysis) 199/138 mmHg BP Sitting (Post-Dialysis) 147/107 mmHg Concurrent Access: falseCentral Venous Catheter (CVC) Other Arterial BP Standing (Pre-Dialysis) 190/122 mmHg Sitti ng Heart Rate Post-Dialysis 95 BPM Sitting Heart Rate Pre-Dialysis 124 BPM Temperatu re Post-Dialysis 97.2 degF Standing Heart Rate Pre-Dialysis 112 BPM Temperature Pre-Dialysis 97.5 degF February 02, 2023 In-Center Hemodialysis Treatment 5828-51-73K52:59:17.000Z 8023-35-83Z65:53:18.000Z BP Sitting (Pre-Dialysis) 138/72 mmHg BP Sitting (Post-Dialysis) 113/81 mmHg Concurrent Access: falseCentral Venous Catheter (CVC) Other Arterial BP Standing (Pre-Dialysis) 129/92 mmHg Sitting Heart Rate Post-Dialysis 107 BPM Sitting Heart Rate Pre-Dialysis 93 BPM Temperatu re Post-Dialysis 97 degF Standing Heart Rate Pre-Dialysis 115 BPM Temperature Pre-Dialysis 97.9 degF January 30, 2023 In-Center Hemodialysis Treatment 5115-39-18N91:56:08.000Z 0654-50-43E44:50:09.000Z BP Sitting (Pre-Dialysis) 190/125 mmHg BP Sitting (Post-Dialysis) 120/91 mmHg Concurrent Access: falseCentral Venous Catheter (CVC) Other Arterial Sitting Heart Rate Pre-Dialysis 109 BPM Sitting H eart Rate Post-Dialysis 96 BPM Temperature Pre-Dialysis 97 degF Temperature Post -Dialysis 98.3 degF January 28, 2023 In-Center Hemodialysis Treatment 8769-91-98B48:03:00.000Z 9571-32-88L73:01:41.000Z BP Sitting (Pre-Dialysis) 142/101 mmHg BP Sitting (Post-Dialysis) 134/83 mmHg Concurrent Access: falseCentral Venous Catheter (CVC) Other Arterial Sitting Heart Rate Pre-Dialysis 117 BPM BP Standing (Post-Dialysis) 154/99 mmHg Temperature Pre-Dialysis 97.4 degF Sitting Heart Ra te Post-Dialysis 97 BPM Standing Heart Rate Post-May lysis 113 BPM Temperature Post-Dialysis 97 .2 degF January 26, 2023 In-Center Hemodialysis Treatment 6912-83-51Z90:55:00.000Z 0453-92-76C80:43:31.000Z BP Sitting (Pre-Dialysis) 127/91 mmHg BP Sitting (Post-Dialysis) 123/87 mmHg Concurrent Access: falseCentral Venous Catheter (CVC) Other Arterial BP Standing (Pre-Dialysis) 138/87 mmHg BP Standing (P ost-Dialysis) 122/85 mmHg Sitting Heart Rate Pre-Dialysis 97 BPM Sitting Heart Rate Post-Dialysis 90 BPM Standing Heart Rate Pre-Dialysis 98 BPM Standing Heart Rate Post-Dialysis 117 BPM Temperature Pre-Dialysis 96.9 degF Temperature Post -Dialysis 98 degF January 23, 2023 In-Center Hemodialysis Treatment [id number]:58:50.000Z 2188-36-47B26:52:50.000Z BP Sitting (Pre-Dialysis) 165/106 mmHg BP Sitting (Post-Dialysis) 163/104 mmHg Concurrent Access: falseCentral Venous Catheter (CVC) Other Arterial BP Standing (Pre-Dialysis) 172/135 mmHg BP Standing (P ost-Dialysis) 167/122 mmHg Sitting Heart Rate Pre-Dialysis 127 BPM Sitting Heart Rate Post-Dialysis 128 BPM Standing Heart Rate Pre-Dialysis 134 BPM Standing Heart Rate Post-Dialysis 111 BPM Temperature Pre-Dialysis 98.7 degF Temperature Post -Dialysis 98.7 degF January 21, 2023 In-Center Hemodialysis Treatment 2756-38-72N46:51:00.000Z 0773-36-03I71:47:21.000Z BP Sitting (Pre-Dialysis) 147/116 mmHg BP Sitting (Post-Dialysis) 162/107 mmHg Concurrent Access: falseCentral Venous Catheter (CVC) Other Arterial Sitting Heart Rate Pre-Dialysis 89 BPM BP Standing (Post-Dialysis) 122/50 mmHg Temperature Pre-Dialysis 98.2 degF Sitting Heart Ra te Post-Dialysis 100 BPM Standing Heart Rate Post-May lysis 99 BPM Temperature Post-Dialysis 97 .3 degF January 19, 2023 In-Center Hemodialysis Treatment 1839-54-67T99:59:00.000Z 5585-87-59G67:09:47.000Z BP Sitting (Pre-Dialysis) 107/71 mmHg BP Sitting (Post-Dialysis) 116/71 mmHg Concurrent Access: falseCentral Venous Catheter (CVC) Other Arterial Sitting Heart Rate Pre-Dialysis 121 BPM Sitting H eart Rate Post-Dialysis 114 BPM Temperature Pre-Dialysis 98.3 degF Temperature Post -Dialysis 99.2 degF January 16, 2023 In-Center Hemodialysis Treatment 9849-75-54H51:00:46.000Z 3272-34-52U06:46:46.000Z BP Sitting (Pre-Dialysis) 171/128 mmHg BP Sitting (Post-Dialysis) 125/86 mmHg Concurrent Access: falseCentral Venous Catheter (CVC) Other Arterial Sitting Heart Rate Pre-Dialysis 97 BPM BP Standing (Post-Dialysis) 117/97 mmHg Temperature Pre-Dialysis 98.1 degF Sitting Heart Ra te Post-Dialysis 96 BPM Standing Heart Rate Post-May lysis 96 BPM Temperature Post-Dialysis 98 degF January 14, 2023 In-Center Hemodialysis Treatment 0448-48-43W96:51:22.000Z 3534-39-99Y04:45:22.000Z BP Sitting (Pre-Dialysis) 168/116 mmHg BP Sitting (Post-Dialysis) 180/108 mmHg Concurrent Access: falseCentral Venous Catheter (CVC) Other Arterial BP Standing (Pre-Dialysis) 161/134 mmHg Sitti ng Heart Rate Post-Dialysis 98 BPM Sitting Heart Rate Pre-Dialysis 115 BPM Temperatu re Post-Dialysis 98.5 degF Standing Heart Rate Pre-Dialysis 145 BPM Temperature Pre-Dialysis 99.8 degF January 12, 2023 In-Center Hemodialysis Treatment 7160-69-44O59:43:08.000Z 4109-48-24I26:40:09.000Z BP Sitting (Pre-Dialysis) 152/134 mmHg BP Sitting (Post-Dialysis) 141/113 mmHg Concurrent Access: falseCentral Venous Catheter (CVC) Other Arterial Sitting Heart Rate Pre-Dialysis 168 BPM Sitting H eart Rate Post-Dialysis 111 BPM Temperature Pre-Dialysis 98.3 degF Temperature Post -Dialysis 98.8 degF January 09, 2023 In-Center Hemodialysis Treatment 4930-98-87E65:55:00.000Z 6382-46-12Y28:43:08.000Z BP Sitting (Pre-Dialysis) 156/115 mmHg BP Sitting (Post-Dialysis) 118/67 mmHg Concurrent Access: falseCentral Venous Catheter (CVC) Other Arterial Sitting Heart Rate Pre-Dialysis 128 BPM BP Standing (Post-Dialysis) 111/85 mmHg Temperature Pre-Dialysis 98.9 degF Sitting Heart Ra te Post-Dialysis 113 BPM Standing Heart Rate Post-May lysis 93 BPM Temperature Post-Dialysis 98 .2 degF January 07, 2023 In-Center Hemodialysis Treatment 6413-13-88T85:59:00.000Z 4774-83-04Y13:50:32.000Z BP Sitting (Pre-Dialysis) 164/97 mmHg BP Sitting (Post-Dialysis) 137/98 mmHg Concurrent Access: falseCentral Venous Catheter (CVC) Other Arterial Sitting Heart Rate Pre-Dialysis 82 BPM BP Standing (Post-Dialysis) 125/89 mmHg Temperature Pre-Dialysis 97.2 degF Sitting Heart Ra te Post-Dialysis 97 BPM Standing Heart Rate Post-May lysis 100 BPM Temperature Post-Dialysis 97 .2 degF January 05, 2023 In-Center Hemodialysis Treatment [id number]:56:32.000Z 9908-54-85F79:48:32.000Z BP Sitting (Pre-Dialysis) 179/124 mmHg BP Sitting (Post-Dialysis) 129/81 mmHg Concurrent Access: falseCentral Venous Catheter (CVC) Other Arterial Sitting Heart Rate Pre-Dialysis 130 BPM Sitting H eart Rate Post-Dialysis 83 BPM Temperature Pre-Dialysis 99.4 degF Temperature Post -Dialysis 98.6 degF January 02, 2023 In-Center Hemodialysis Treatment 3897-86-01D09:09:21.000Z 7486-14-30G82:52:21.000Z BP Sitting (Pre-Dialysis) 131/103 mmHg BP Sitting (Post-Dialysis) 124/78 mmHg Concurrent Access: falseCentral Venous Catheter (CVC) Other Arterial BP Standing (Pre-Dialysis) 107/68 mmHg Sitti ng Heart Rate Post-Dialysis 90 BPM Sitting Heart Rate Pre-Dialysis 63 BPM Temperatu re Post-Dialysis 97.2 degF Standing Heart Rate Pre-Dialysis 96 BPM Temperature Pre-Dialysis 97.1 degF December 31, 2022 In-Center Hemodialysis Treatment 3037-62-52L61:57:00.000Z 9812-24-33P53:27:21.000Z BP Sitting (Pre-Dialysis) 154/112 mmHg BP Sitting (Post-Dialysis) 124/80 mmHg Concurrent Access: falseCentral Venous Catheter (CVC) Other Arterial BP Standing (Pre-Dialysis) 163/94 mmHg BP Standing (P ost-Dialysis) 106/63 mmHg Sitting Heart Rate Pre-Dialysis 83 BPM Sitting Heart Rate Post-Dialysis 97 BPM Standing Heart Rate Pre-Dialysis 88 BPM Standing Heart Rate Post-Dialysis 107 BPM Temperature Pre-Dialysis 97.3 degF Temperature Post -Dialysis 97.2 degF December 29, 2022 In-Center Hemodialysis Treatment [id number]:54:21.000Z 6583-49-65M73:51:22.000Z BP Sitting (Pre-Dialysis) 122/98 mmHg BP Sitting (Post-Dialysis) 131/79 mmHg Concurrent Access: falseCentral Venous Catheter (CVC) Other Arterial Sitting Heart Rate Pre-Dialysis 72 BPM Sitting H eart Rate Post-Dialysis 70 BPM Temperature Pre-Dialysis 98 degF Temperature Post -Dialysis 97 degF December 26, 2022 In-Center Hemodialysis Treatment 0500-12-95V10:57:00.000Z 7305-82-34E67:21:28.000Z BP Sitting (Pre-Dialysis) 188/116 mmHg BP Sitting (Post-Dialysis) 145/97 mmHg Concurrent Access: falseCentral Venous Catheter (CVC) Other Arterial BP Standing (Pre-Dialysis) 161/119 mmHg BP Standing (P ost-Dialysis) 99/76 mmHg Sitting Heart Rate Pre-Dialysis 139 BPM Sitting Heart Rate Post-Dialysis 98 BPM Standing Heart Rate Pre-Dialysis 141 BPM Standing Heart Rate Post-Dialysis 81 BPM Temperature Pre-Dialysis 97.2 degF Temperature Post -Dialysis 97.3 degF December 24, 2022 In-Center Hemodialysis Treatment 9844-05-16B32:50:27.000Z 8226-19-81L10:33:28.000Z BP Sitting (Pre-Dialysis) 198/150 mmHg BP Sitting (Post-Dialysis) 137/108 mmHg Concurrent Access: falseCentral Venous Catheter (CVC) Other Arterial Sitting Heart Rate Pre-Dialysis 130 BPM BP Standing (Post-Dialysis) 145/117 mmHg Temperature Pre-Dialysis 97.2 degF Sitting Heart Ra te Post-Dialysis 95 BPM Standing Heart R ate Post-Dialysis 114 BPM Temperature Post-Dialysis 97 degF December 22, 2022 In-Center Hemodialysis Treatment 2301-75-23B39:06:27.000Z 0081-11-79I69:22:28.000Z BP Sitting (Pre-Dialysis) 216/114 mmHg BP Sitting (Post-Dialysis) 190/117 mmHg Concurrent Access: falseCentral Venous Catheter (CVC) Other Arterial Sitting Heart Rate Pre-Dialysis 93 BPM BP Standi ng (Post-Dialysis) 165/80 mmHg Temperature Pre-Dialysis 97 degF Sitting Heart Ra te Post-Dialysis 101 BPM Standing Heart Rate Post-May lysis 103 BPM Temperature Post-Dialysis 98 degF December 19, 2022 In-Center Hemodialysis Treatment 1138-31-06K39:11:28.000Z 3232-44-82G60:58:28.000Z BP Sitting (Pre-Dialysis) 233/118 mmHg BP Sitting (Post-Dialysis) 183/108 mmHg Concurrent Access: falseCentral Venous Catheter (CVC) Other Arterial Sitting Heart Rate Pre-Dialysis 92 BPM BP Standi ng (Post-Dialysis) 167/111 mmHg Temperature Pre-Dialysis 98 degF Sitting Heart Ra te Post-Dialysis 77 BPM Standing Heart Rate Post-May lysis 91 BPM Temperature Post-Dialysis 98 degF December 17, 2022 In-Center Hemodialysis Treatment 5753-55-49M90:56:27.000Z 5933-99-82R20:13:28.000Z BP Sitting (Pre-Dialysis) 183/129 mmHg BP Sitting (Post-Dialysis) 144/92 mmHg Concurrent Access: falseCentral Venous Catheter (CVC) Other Arterial Sitting Heart Rate Pre-Dialysis 104 BPM BP Standi ng (Post-Dialysis) 124/96 mmHg Temperature Pre-Dialysis 97 degF Sitting Heart Ra te Post-Dialysis 117 BPM Standing Heart Rate Post-May lysis 133 BPM Temperature Post-Dialysis 97 degF December 15, 2022 In-Center Hemodialysis Treatment 4976-42-32C96:52:00.000Z 4072-05-06Y21:44:28.000Z BP Sitting (Pre-Dialysis) 211/127 mmHg BP Sitting (Post-Dialysis) 151/107 mmHg Concurrent Access: falseCentral Venous Catheter (CVC) Other Arterial Sitting Heart Rate Pre-Dialysis 98 BPM Sitting H eart Rate Post-Dialysis 117 BPM Temperature Pre-Dialysis 97.5 degF Temperature Post -Dialysis 97.6 degF December 12, 2022 In-Center Hemodialysis Treatment [id number]:55:40.000Z 2477-09-17F18:58:25.000Z BP Sitting (Pre-Dialysis) 141/122 mmHg BP Sitting (Post-Dialysis) 145/94 mmHg Concurrent Access: falseCentral Venous Catheter (CVC) Other Arterial BP Standing (Pre-Dialysis) 197/128 mmHg BP Standing (P ost-Dialysis) 121/84 mmHg Sitting Heart Rate Pre-Dialysis 89 BPM Sitting Heart Rate Post-Dialysis 97 BPM Standing Heart Rate Pre-Dialysis 106 BPM Standing Heart Rate Post-Dialysis 102 BPM Temperature Pre-Dialysis 97.6 degF Temperature Post -Dialysis 97.5 degF December 10, 2022 In-Center Hemodialysis Treatment 7882-93-10D18:50:21.000Z 2788-35-98P44:13:21.000Z BP Sitting (Pre-Dialysis) 248/208 mmHg BP Sitting (Post-Dialysis) 170/130 mmHg Concurrent Access: falseCentral Venous Catheter (CVC) Other Arterial BP Standing (Pre-Dialysis) 197/167 mmHg BP Standing (P ost-Dialysis) 182/156 mmHg Sitting Heart Rate Pre-Dialysis 135 BPM Sitting Heart Rate Post-Dialysis 117 BPM Standing Heart Rate Pre-Dialysis 144 BPM Standing Heart Rate Post-Dialysis 93 BPM Temperature Pre-Dialysis 97 degF Temperature Post -Dialysis 97 degF December 08, 2022 In-Center Hemodialysis Treatment [id number]:59:40.000Z 7690-91-13M34:10:41.000Z BP Sitting (Pre-Dialysis) 150/99 mmHg BP Sitting (Post-Dialysis) 191/139 mmHg Concurrent Access: falseCentral Venous Catheter (CVC) Other Arterial Sitting Heart Rate Pre-Dialysis 103 BPM BP Standing (Post-Dialysis) 154/106 mmHg Temperature Pre-Dialysis 97.6 degF Sitting Heart Ra te Post-Dialysis 114 BPM Standing Heart R ate Post-Dialysis 100 BPM Temperature Post-Dialysis 97 .4 degF December 05, 2022 In-Center Hemodialysis Treatment [id number]:12:15.000Z 4173-25-31G08:11:16.000Z BP Sitting (Pre-Dialysis) 231/138 mmHg BP Sitting (Post-Dialysis) 170/98 mmHg Concurrent Access: falseCentral Venous Catheter (CVC) Other Arterial Sitting Heart Rate Pre-Dialysis 81 BPM BP Standing (Post-Dialysis) 106/62 mmHg Temperature Pre-Dialysis 97.7 degF Sitting Heart Ra te Post-Dialysis 91 BPM Standing Heart Rate Post-May lysis 99 BPM Temperature Post-Dialysis 97 .8 degF December 03, 2022 In-Center Hemodialysis Treatment [id number]:09:00.000Z 8508-72-85U79:15:40.000Z BP Sitting (Pre-Dialysis) 232/115 mmHg BP Sitting (Post-Dialysis) 175/98 mmHg Concurrent Access: falseCentral Venous Catheter (CVC) Other Arterial Sitting Heart Rate Pre-Dialysis 94 BPM BP Standi ng (Post-Dialysis) 143/90 mmHg Temperature Pre-Dialysis 98 degF Sitting Heart Ra te Post-Dialysis 94 BPM Standing Heart Rate Post-May lysis 103 BPM Temperature Post-Dialysis 98 .1 degF December 01, 2022 In-Center Hemodialysis Treatment 1434-21-17Z44:50:00.000Z 0584-34-51Q14:57:35.000Z BP Sitting (Pre-Dialysis) 193/106 mmHg BP Sitting (Post-Dialysis) 126/69 mmHg Concurrent Access: falseCentral Venous Catheter (CVC) Other Arterial Sitting Heart Rate Pre-Dialysis 93 BPM BP Standing (Post-Dialysis) 161/98 mmHg Temperature Pre-Dialysis 97.7 degF Sitting Heart Ra te Post-Dialysis 101 BPM Standing Heart Rate Post-May lysis 108 BPM Temperature Post-Dialysis 97 .2 degF November 28, 2022 In-Center Hemodialysis Treatment 2977-67-52I68:01:35.000Z 0869-63-80W60:29:35.000Z BP Sitting (Pre-Dialysis) 151/111 mmHg BP Sitting (Post-Dialysis) 168/107 mmHg Concurrent Access: falseCentral Venous Catheter (CVC) Other Arterial Sitting Heart Rate Pre-Dialysis 93 BPM BP Standing (Post-Dialysis) 157/94 mmHg Temperature Pre-Dialysis 97.5 degF Sitting Heart Ra te Post-Dialysis 145 BPM Standing Heart Rate Post-May lysis 150 BPM Temperature Post-Dialysis 97 degF November 26, 2022 In-Center Hemodialysis Treatment [id number]:55:35.000Z 9205-48-09A43:43:35.000Z BP Sitting (Pre-Dialysis) 188/106 mmHg BP Sitting (Post-Dialysis) 114/72 mmHg Concurrent Access: falseCentral Venous Catheter (CVC) Other Arterial Sitting Heart Rate Pre-Dialysis 74 BPM BP Standing (Post-Dialysis) 113/92 mmHg Temperature Pre-Dialysis 96.7 degF Sitting Heart Ra te Post-Dialysis 77 BPM Standing Heart Rate Post-May lysis 81 BPM Temperature Post-Dialysis 97 .3 degF November 24, 2022 In-Center Hemodialysis Treatment 2536-14-61C67:00:35.000Z 2869-78-41J60:36:35.000Z BP Sitting (Pre-Dialysis) 154/119 mmHg BP Sitting (Post-Dialysis) 112/76 mmHg Concurrent Access: falseCentral Venous Catheter (CVC) Other Arterial Sitting Heart Rate Pre-Dialysis 132 BPM BP Standing (Post-Dialysis) 123/82 mmHg Temperature Pre-Dialysis 97.1 degF Sitting Heart Ra te Post-Dialysis 113 BPM Standing Heart Rate Post-May lysis 101 BPM Temperature Post-Dialysis 97 .2 degF November 21, 2022 In-Center Hemodialysis Treatment 9579-77-52V13:10:00.000Z 7438-35-49N22:58:16.000Z BP Sitting (Pre-Dialysis) 249/122 mmHg BP Sitting (Post-Dialysis) 186/100 mmHg Concurrent Access: falseCentral Venous Catheter (CVC) Other Arterial Sitting Heart Rate Pre-Dialysis 91 BPM Sitting H eart Rate Post-Dialysis 77 BPM Temperature Pre-Dialysis 97 degF Temperature Post -Dialysis 97.2 degF November 19, 2022 In-Center Hemodialysis Treatment 1989-44-00A70:04:00.000Z 6328-67-10D12:46:16.000Z BP Sitting (Pre-Dialysis) 170/100 mmHg BP Sitting (Post-Dialysis) 180/89 mmHg Concurrent Access: falseCentral Venous Catheter (CVC) Other Arterial BP Standing (Pre-Dialysis) 182/94 mmHg BP Standing (P ost-Dialysis) 135/70 mmHg Sitting Heart Rate Pre-Dialysis 87 BPM Sitting Heart Rate Post-Dialysis 78 BPM Standing Heart Rate Pre-Dialysis 91 BPM Standing Heart Rate Post-Dialysis 84 BPM Temperature Pre-Dialysis 97.3 degF Temperature Post -Dialysis 96.9 degF November 17, 2022 In-Center Hemodialysis Treatment 4743-81-04A24:03:00.000Z 7150-44-94X25:41:02.000Z BP Sitting (Pre-Dialysis) 156/78 mmHg BP Sitting (Post-Dialysis) 125/87 mmHg Concurrent Access: falseCentral Venous Catheter (CVC) Other Arterial Sitting Heart Rate Pre-Dialysis 92 BPM BP Standing (Post-Dialysis) 141/74 mmHg Temperature Pre-Dialysis 97.9 degF Sitting Heart Ra te Post-Dialysis 113 BPM Standing Heart Rate Post-May lysis 117 BPM Temperature Post-Dialysis 97 .6 degF November 10, 2022 In-Center Hemodialysis Treatment 0329-52-39L81:02:23.000Z 9920-16-66J19:33:22.000Z BP Sitting (Pre-Dialysis) 195/104 mmHg BP Sitting (Post-Dialysis) 94/51 mmHg Concurrent Access: falseCentral Venous Catheter (CVC) Other Arterial BP Standing (Pre-Dialysis) 158/132 mmHg Sitti ng Heart Rate Post-Dialysis 106 BPM Sitting Heart Rate Pre-Dialysis 97 BPM Temperatu re Post-Dialysis 96.6 degF Standing Heart Rate Pre-Dialysis 105 BPM Temperature Pre-Dialysis 97.3 degF November 07, 2022 In-Center Hemodialysis Treatment 8116-30-29O69:56:14.000Z 2959-86-33J40:42:14.000Z BP Sitting (Pre-Dialysis) 180/100 mmHg BP Sitting (Post-Dialysis) 107/66 mmHg Concurrent Access: falseCentral Venous Catheter (CVC) Other Arterial BP Standing (Pre-Dialysis) 158/95 mmHg Sitti ng Heart Rate Post-Dialysis 71 BPM Sitting Heart Rate Pre-Dialysis 71 BPM Temperatu re Post-Dialysis 97.2 degF Standing Heart Rate Pre-Dialysis 74 BPM Temperature Pre-Dialysis 97.2 degF November 05, 2022 In-Center Hemodialysis Treatment 7970-79-91S80:05:00.000Z 2412-54-77P25:33:14.000Z BP Sitting (Pre-Dialysis) 131/79 mmHg BP Sitting (Post-Dialysis) 112/62 mmHg Concurrent Access: falseCentral Venous Catheter (CVC) Other Arterial BP Standing (Pre-Dialysis) 116/72 mmHg BP Standing (P ost-Dialysis) 93/55 mmHg Sitting Heart Rate Pre-Dialysis 76 BPM Sitting Heart Rate Post-Dialysis 83 BPM Standing Heart Rate Pre-Dialysis 80 BPM Standing Heart Rate Post-Dialysis 82 BPM Temperature Pre-Dialysis 97 degF Temperature Post -Dialysis 97.2 degF November 03, 2022 In-Center Hemodialysis Treatment 7435-84-65B96:10:00.000Z 4778-03-15G68:58:36.000Z BP Sitting (Pre-Dialysis) 210/120 mmHg BP Sitting (Post-Dialysis) 151/85 mmHg Concurrent Access: falseCentral Venous Catheter (CVC) Other Arterial BP Standing (Pre-Dialysis) 222/133 mmHg BP Standing (P ost-Dialysis) 139/93 mmHg Sitting Heart Rate Pre-Dialysis 82 BPM Sitting Heart Rate Post-Dialysis 70 BPM Standing Heart Rate Pre-Dialysis 83 BPM Standing Heart Rate Post-Dialysis 76 BPM Temperature Pre-Dialysis 97.4 degF Temperature Post -Dialysis 97 degF October 31, 2022 In-Center Hemodialysis Treatment 2215-42-24K06:01:23.000Z 5552-62-78A90:49:23.000Z BP Sitting (Pre-Dialysis) 161/112 mmHg BP Sitting (Post-Dialysis) 104/62 mmHg Concurrent Access: falseCentral Venous Catheter (CVC) Other Arterial Sitting Heart Rate Pre-Dialysis 72 BPM BP Standing (Post-Dialysis) 113/68 mmHg Temperature Pre-Dialysis 98.3 degF Sitting Heart Ra te Post-Dialysis 68 BPM Standing Heart Rate Post-May lysis 70 BPM Temperature Post-Dialysis 98 .4 degF October 29, 2022 In-Center Hemodialysis Treatment 1009-88-42P91:08:08.000Z 9322-94-66E58:51:08.000Z BP Sitting (Pre-Dialysis) 221/114 mmHg BP Sitting (Post-Dialysis) 175/115 mmHg Concurrent Access: falseCentral Venous Catheter (CVC) Other Arterial BP Standing (Pre-Dialysis) 196/115 mmHg BP Standing (P ost-Dialysis) 162/112 mmHg Sitting Heart Rate Pre-Dialysis 72 BPM Sitting Heart Rate Post-Dialysis 82 BPM Standing Heart Rate Pre-Dialysis 88 BPM Standing Heart Rate Post-Dialysis 91 BPM Temperature Pre-Dialysis 97 degF Temperature Post -Dialysis 97.2 degF October 27, 2022 In-Center Hemodialysis Treatment 5839-96-50D65:59:00.000Z 7198-36-86N94:51:02.000Z BP Sitting (Pre-Dialysis) 130/80 mmHg BP Sitting (Post-Dialysis) 106/68 mmHg Concurrent Access: falseCentral Venous Catheter (CVC) Other Arterial Sitting Heart Rate Pre-Dialysis 68 BPM BP Standi ng (Post-Dialysis) 95/43 mmHg Temperature Pre-Dialysis 97.2 degF Sitting Heart Ra te Post-Dialysis 73 BPM Standing Heart Rate Post-May lysis 62 BPM Temperature Post-Dialysis 97 .3 degF October 24, 2022 In-Center Hemodialysis Treatment 1835-01-18U40:56:00.000Z 3033-68-24Z93:53:16.000Z BP Sitting (Pre-Dialysis) 181/132 mmHg BP Sitting (Post-Dialysis) 158/92 mmHg Concurrent Access: falseCentral Venous Catheter (CVC) Other Arterial BP Standing (Pre-Dialysis) 184/108 mmHg BP Standing (P ost-Dialysis) 138/91 mmHg Sitting Heart Rate Pre-Dialysis 73 BPM Sitting Heart Rate Post-Dialysis 80 BPM Standing Heart Rate Pre-Dialysis 85 BPM Standing Heart Rate Post-Dialysis 85 BPM Temperature Pre-Dialysis 97.2 degF Temperature Post -Dialysis 97.2 degF October 22, 2022 In-Center Hemodialysis Treatment 2416-52-22U32:10:16.000Z 6824-07-79C12:23:16.000Z BP Sitting (Pre-Dialysis) 224/132 mmHg BP Sitting (Post-Dialysis) 148/100 mmHg Concurrent Access: falseCentral Venous Catheter (CVC) Other Arterial Sitting Heart Rate Pre-Dialysis 85 BPM BP Standing (Post-Dialysis) 149/101 mmHg Temperature Pre-Dialysis 98.1 degF Sitting Heart Ra te Post-Dialysis 78 BPM Standing Heart R ate Post-Dialysis 82 BPM Temperature Post-Dialysis 98 degF October 20, 2022 In-Center Hemodialysis Treatment 3883-02-02O30:13:00.000Z 6608-65-36H04:02:39.000Z BP Sitting (Pre-Dialysis) 164/93 mmHg BP Sitting (Post-Dialysis) 133/77 mmHg Concurrent Access: falseCentral Venous Catheter (CVC) Other Arterial BP Standing (Pre-Dialysis) 153/86 mmHg BP Standing (P ost-Dialysis) 110/66 mmHg Sitting Heart Rate Pre-Dialysis 77 BPM Sitting Heart Rate Post-Dialysis 83 BPM Standing Heart Rate Pre-Dialysis 83 BPM Standing Heart Rate Post-Dialysis 82 BPM Temperature Pre-Dialysis 95.9 degF Temperature Post -Dialysis 96 degF October 17, 2022 In-Center Hemodialysis Treatment 9802-87-36E79:10:14.000Z 8016-10-54C17:18:00.000Z BP Sitting (Pre-Dialysis) 195/109 mmHg Temperature Post-Dialysis 98 degF Concurrent Access: falseCentral Venous Catheter (CVC) Other Arterial Sitting Heart Rate Pre-Dialysis 85 BPM Temperature Pre-Dialysis 97 degF October 15, 2022 In-Center Hemodialysis Treatment 2190-43-35O20:51:00.000Z 8911-93-17F13:30:14.000Z BP Sitting (Pre-Dialysis) 192/107 mmHg BP Sitting (Post-Dialysis) 125/73 mmHg Concurrent Access: falseCentral Venous Catheter (CVC) Other Arterial Sitting Heart Rate Pre-Dialysis 81 BPM BP Standing (Post-Dialysis) 116/80 mmHg Temperature Pre-Dialysis 97.2 degF Sitting Heart Ra te Post-Dialysis 72 BPM Standing Heart Rate Post-May lysis 98 BPM Temperature Post-Dialysis 97 .3 degF October 13, 2022 In-Center Hemodialysis Treatment 0631-20-24W71:04:14.000Z 5013-36-89X90:26:00.000Z BP Sitting (Pre-Dialysis) 234/127 mmHg BP Sitting (Post-Dialysis) 118/62 mmHg Concurrent Access: falseCentral Venous Catheter (CVC) Other Arterial Sitting Heart Rate Pre-Dialysis 81 BPM BP Standing (Post-Dialysis) 105/66 mmHg Temperature Pre-Dialysis 97.2 degF Sitting Heart Ra te Post-Dialysis 88 BPM Standing Heart Rate Post-May lysis 87 BPM Temperature Post-Dialysis 97 .2 degF October 10, 2022 In-Center Hemodialysis Treatment 6297-77-79F53:03:18.000Z 4416-47-18U53:46:18.000Z BP Sitting (Pre-Dialysis) 201/96 mmHg BP Sitting (Post-Dialysis) 118/73 mmHg Concurrent Access: falseCentral Venous Catheter (CVC) Other Arterial Sitting Heart Rate Pre-Dialysis 81 BPM BP Standing (Post-Dialysis) 132/108 mmHg Temperature Pre-Dialysis 97.2 degF Sitting Heart Ra te Post-Dialysis 79 BPM Standing Heart R ate Post-Dialysis 80 BPM Temperature Post-Dialysis 97 .5 degF October 08, 2022 In-Center Hemodialysis Treatment 8719-28-73K04:10:18.000Z 0885-44-00E49:56:18.000Z BP Sitting (Pre-Dialysis) 201/107 mmHg BP Sitting (Post-Dialysis) 162/92 mmHg Concurrent Access: falseCentral Venous Catheter (CVC) Other Arterial Sitting Heart Rate Pre-Dialysis 86 BPM BP Standing (Post-Dialysis) 136/95 mmHg Temperature Pre-Dialysis 97.2 degF Sitting Heart Ra te Post-Dialysis 83 BPM Standing Heart Rate Post-May lysis 87 BPM Temperature Post-Dialysis 98 degF October 06, 2022 In-Center Hemodialysis Treatment 6196-89-56O70:02:00.000Z 7074-63-35F73:51:05.000Z BP Sitting (Pre-Dialysis) 177/99 mmHg BP Sitting (Post-Dialysis) 180/102 mmHg Concurrent Access: falseCentral Venous Catheter (CVC) Other Arterial BP Standing (Pre-Dialysis) 166/97 mmHg BP Standing (P ost-Dialysis) 129/77 mmHg Sitting Heart Rate Pre-Dialysis 86 BPM Sitting Heart Rate Post-Dialysis 73 BPM Standing Heart Rate Pre-Dialysis 75 BPM Standing Heart Rate Post-Dialysis 70 BPM Temperature Pre-Dialysis 97.3 degF Temperature Post -Dialysis 97.6 degF October 04, 2022 In-Center Hemodialysis Treatment 4368-67-13M17:21:17.000Z 0301-15-09Z63:04:17.000Z BP Sitting (Pre-Dialysis) 236/105 mmHg BP Sitting (Post-Dialysis) 227/116 mmHg Concurrent Access: falseCentral Venous Catheter (CVC) Other Arterial Sitting Heart Rate Pre-Dialysis 95 BPM BP Standing (Post-Dialysis) 191/116 mmHg Temperature Pre-Dialysis 97.6 degF Sitting Heart Ra te Post-Dialysis 79 BPM Standing Heart R ate Post-Dialysis 83 BPM Temperature Post-Dialysis 97 .2 degF October 01, 2022 In-Center Hemodialysis Treatment [id number]:52:27.000Z 0618-25-89Q70:54:45.000Z BP Sitting (Pre-Dialysis) 148/85 mmHg BP Sitting (Post-Dialysis) 137/93 mmHg Concurrent Access: falseCentral Venous Catheter (CVC) Other Arterial Sitting Heart Rate Pre-Dialysis 85 BPM BP Standing (Post-Dialysis) 128/77 mmHg Temperature Pre-Dialysis 97.5 degF Sitting Heart Ra te Post-Dialysis 85 BPM Standing Heart Rate Post-May lysis 90 BPM Temperature Post-Dialysis 97 degF September 29, 2022 In-Center Hemodialysis Treatment 1902-39-36X73:15:00.000Z 0224-40-17O22:03:12.000Z BP Sitting (Pre-Dialysis) 160/85 mmHg BP Sitting (Post-Dialysis) 135/84 mmHg Concurrent Access: falseCentral Venous Catheter (CVC) Other Arterial Sitting Heart Rate Pre-Dialysis 94 BPM BP Standing (Post-Dialysis) 123/69 mmHg Temperature Pre-Dialysis 97.2 degF Sitting Heart Ra te Post-Dialysis 89 BPM Standing Heart Rate Post-May lysis 96 BPM Temperature Post-Dialysis 96 .3 degF September 26, 2022 In-Center Hemodialysis Treatment 2383-01-54V89:19:00.000Z 3503-48-45C12:38:11.000Z BP Sitting (Pre-Dialysis) 158/85 mmHg BP Sitting (Post-Dialysis) 132/88 mmHg Concurrent Access: falseCentral Venous Catheter (CVC) Other Arterial Sitting Heart Rate Pre-Dialysis 75 BPM Sitting H eart Rate Post-Dialysis 71 BPM Temperature Pre-Dialysis 97.3 degF Temperature Post -Dialysis 97 degF September 24, 2022 In-Center Hemodialysis Treatment 8952-58-52N21:10:16.000Z 3921-76-02R08:26:16.000Z BP Sitting (Pre-Dialysis) 182/96 mmHg BP Sitting (Post-Dialysis) 128/75 mmHg Concurrent Access: falseCentral Venous Catheter (CVC) Other Arterial Sitting Heart Rate Pre-Dialysis 75 BPM Sitting H eart Rate Post-Dialysis 65 BPM Temperature Pre-Dialysis 97.2 degF Temperature Post -Dialysis 98 degF September 22, 2022 In-Center Hemodialysis Treatment 7227-67-29T31:09:30.000Z 1157-18-27W03:27:31.000Z BP Sitting (Pre-Dialysis) 181/112 mmHg BP Sitting (Post-Dialysis) 164/99 mmHg Concurrent Access: falseCentral Venous Catheter (CVC) Other Arterial Sitting Heart Rate Pre-Dialysis 71 BPM BP Standi ng (Post-Dialysis) 152/97 mmHg Temperature Pre-Dialysis 97 degF Sitting Heart Ra te Post-Dialysis 81 BPM Standing Heart Rate Post-May lysis 84 BPM Temperature Post-Dialysis 97 .3 degF September 19, 2022 In-Center Hemodialysis Treatment 8039-13-45P00:18:45.000Z 0715-29-01C35:04:45.000Z BP Sitting (Pre-Dialysis) 160/84 mmHg BP Sitting (Post-Dialysis) 200/98 mmHg Concurrent Access: falseCentral Venous Catheter (CVC) Other Arterial Sitting Heart Rate Pre-Dialysis 94 BPM BP Standi ng (Post-Dialysis) 195/131 mmHg Temperature Pre-Dialysis 98 degF Sitting Heart Ra te Post-Dialysis 87 BPM Standing Heart Rate Post-May lysis 88 BPM Temperature Post-Dialysis 97 .1 degF September 01, 2022 In-Center Hemodialysis Treatment 5734-89-83E18:12:07.000Z 9971-40-81J15:00:11.000Z BP Sitting (Pre-Dialysis) 199/105 mmHg BP Sitting (Post-Dialysis) 183/102 mmHg Concurrent Access: falseCentral Venous Catheter (CVC) Other Arterial BP Standing (Pre-Dialysis) 209/132 mmHg BP Standing (P ost-Dialysis) 150/97 mmHg Sitting Heart Rate Pre-Dialysis 82 BPM Sitting Heart Rate Post-Dialysis 76 BPM Standing Heart Rate Pre-Dialysis 80 BPM Standing Heart Rate Post-Dialysis 85 BPM Temperature Pre-Dialysis 98.1 degF Temperature Post -Dialysis 97 degF August 29, 2022 In-Center Hemodialysis Treatment 6543-29-63V56:16:00.000Z 8428-45-81Q12:18:20.000Z BP Sitting (Pre-Dialysis) 172/89 mmHg BP Sitting (Post-Dialysis) 169/96 mmHg Concurrent Access: falseCentral Venous Catheter (CVC) Other Arterial BP Standing (Pre-Dialysis) 154/86 mmHg BP Standing (P ost-Dialysis) 143/90 mmHg Sitting Heart Rate Pre-Dialysis 82 BPM Sitting Heart Rate Post-Dialysis 73 BPM Standing Heart Rate Pre-Dialysis 82 BPM Standing Heart Rate Post-Dialysis 81 BPM Temperature Pre-Dialysis 97.7 degF Temperature Post -Dialysis 97.2 degF August 25, 2022 In-Center Hemodialysis Treatment 9420-87-01Z11:00:00.000Z 5291-59-48G38:02:35.000Z BP Sitting (Pre-Dialysis) 182/119 mmHg BP Sitting (Post-Dialysis) 139/73 mmHg Concurrent Access: falseCentral Venous Catheter (CVC) Other Arterial BP Standing (Pre-Dialysis) 188/130 mmHg BP Standing (P ost-Dialysis) 119/80 mmHg Sitting Heart Rate Pre-Dialysis 88 BPM Sitting Heart Rate Post-Dialysis 77 BPM Standing Heart Rate Pre-Dialysis 88 BPM Standing Heart Rate Post-Dialysis 97 BPM Temperature Pre-Dialysis 97.9 degF Temperature Post -Dialysis 96.7 degF August 22, 2022 In-Center Hemodialysis Treatment 8432-21-59V35:09:00.000Z 5967-43-65O86:46:52.000Z BP Sitting (Pre-Dialysis) 144/88 mmHg BP Sitting (Post-Dialysis) 113/74 mmHg Concurrent Access: falseCentral Venous Catheter (CVC) Other Arterial BP Standing (Pre-Dialysis) 129/91 mmHg BP Standing (P ost-Dialysis) 105/70 mmHg Sitting Heart Rate Pre-Dialysis 82 BPM Sitting Heart Rate Post-Dialysis 88 BPM Standing Heart Rate Pre-Dialysis 105 BPM Standing Heart Rate Post-Dialysis 78 BPM Temperature Pre-Dialysis 96.8 degF Temperature Post -Dialysis 97.2 degF August 20, 2022 In-Center Hemodialysis Treatment [id number]:16:52.000Z 4037-08-32U47:03:52.000Z BP Sitting (Pre-Dialysis) 258/133 mmHg BP Sitting (Post-Dialysis) 168/126 mmHg Concurrent Access: falseCentral Venous Catheter (CVC) Other Arterial BP Standing (Pre-Dialysis) 230/147 mmHg BP Standing (P ost-Dialysis) 140/104 mmHg Sitting Heart Rate Pre-Dialysis 86 BPM Sitting Heart Rate Post-Dialysis 106 BPM Standing Heart Rate Pre-Dialysis 95 BPM Standing Heart Rate Post-Dialysis 101 BPM Temperature Pre-Dialysis 98.4 degF Temperature Post -Dialysis 98.3 degF August 18, 2022 In-Center Hemodialysis Treatment 3061-41-20N47:12:00.000Z 4075-51-38L65:42:47.000Z BP Sitting (Pre-Dialysis) 170/93 mmHg BP Sitting (Post-Dialysis) 112/75 mmHg Concurrent Access: falseCentral Venous Catheter (CVC) Other Arterial BP Standing (Pre-Dialysis) 166/104 mmHg BP Standing (P ost-Dialysis) 116/57 mmHg Sitting Heart Rate Pre-Dialysis 67 BPM Sitting Heart Rate Post-Dialysis 73 BPM Standing Heart Rate Pre-Dialysis 66 BPM Standing Heart Rate Post-Dialysis 77 BPM Temperature Pre-Dialysis 97.2 degF Temperature Post -Dialysis 97.2 degF August 15, 2022 In-Center Hemodialysis Treatment 6598-09-90Q41:08:00.000Z 6448-00-70O79:24:14.000Z BP Sitting (Pre-Dialysis) 227/115 mmHg BP Sitting (Post-Dialysis) 119/75 mmHg Concurrent Access: falseCentral Venous Catheter (CVC) Other Arterial BP Standing (Pre-Dialysis) 143/95 mmHg BP Standing (P ost-Dialysis) 100/66 mmHg Sitting Heart Rate Pre-Dialysis 85 BPM Sitting Heart Rate Post-Dialysis 101 BPM Standing Heart Rate Pre-Dialysis 87 BPM Standing Heart Rate Post-Dialysis 101 BPM Temperature Pre-Dialysis 97.8 degF Temperature Post -Dialysis 97.3 degF August 13, 2022 In-Center Hemodialysis Treatment 8323-02-48Y52:11:00.000Z 6769-14-97K80:59:14.000Z BP Sitting (Pre-Dialysis) 190/103 mmHg BP Sitting (Post-Dialysis) 115/73 mmHg Concurrent Access: falseCentral Venous Catheter (CVC) Other Arterial BP Standing (Pre-Dialysis) 157/107 mmHg BP Standing (P ost-Dialysis) 115/78 mmHg Sitting Heart Rate Pre-Dialysis 82 BPM Sitting Heart Rate Post-Dialysis 78 BPM Standing Heart Rate Pre-Dialysis 106 BPM Standing Heart Rate Post-Dialysis 81 BPM Temperature Pre-Dialysis 97.6 degF Temperature Post -Dialysis 97.3 degF August 11, 2022 In-Center Hemodialysis Treatment 7891-28-69A95:12:00.000Z 3389-11-16W78:01:43.000Z BP Sitting (Pre-Dialysis) 215/132 mmHg BP Sitting (Post-Dialysis) 128/88 mmHg Concurrent Access: falseCentral Venous Catheter (CVC) Other Arterial BP Standing (Pre-Dialysis) 226/130 mmHg BP Standing (P ost-Dialysis) 118/79 mmHg Sitting Heart Rate Pre-Dialysis 76 BPM Sitting Heart Rate Post-Dialysis 97 BPM Standing Heart Rate Pre-Dialysis 79 BPM Standing Heart Rate Post-Dialysis 101 BPM Temperature Pre-Dialysis 97 degF Temperature Post -Dialysis 96.8 degF August 08, 2022 In-Center Hemodialysis Treatment 8396-28-04Q00:09:38.000Z 6238-27-49X10:57:39.000Z BP Sitting (Pre-Dialysis) 231/126 mmHg BP Sitting (Post-Dialysis) 149/71 mmHg Concurrent Access: falseCentral Venous Catheter (CVC) Other Arterial Sitting Heart Rate Pre-Dialysis 85 BPM BP Standing (Post-Dialysis) 143/90 mmHg Temperature Pre-Dialysis 97.2 degF Sitting Heart Ra te Post-Dialysis 76 BPM Standing Heart Rate Post-May lysis 92 BPM Temperature Post-Dialysis 97 .2 degF August 06, 2022 In-Center Hemodialysis Treatment 5745-03-10F38:14:38.000Z 0828-80-39S13:01:22.000Z BP Sitting (Pre-Dialysis) 218/124 mmHg BP Sitting (Post-Dialysis) 190/107 mmHg Concurrent Access: falseCentral Venous Catheter (CVC) Other Arterial BP Standing (Pre-Dialysis) 220/128 mmHg BP Standing (P ost-Dialysis) 158/105 mmHg Sitting Heart Rate Pre-Dialysis 88 BPM Sitting Heart Rate Post-Dialysis 66 BPM Standing Heart Rate Pre-Dialysis 90 BPM Standing Heart Rate Post-Dialysis 82 BPM Temperature Pre-Dialysis 97.1 degF August 04, 2022 In-Center Hemodialysis Treatment 400 mL/min 800 mL/min Concurrent Access: false July 28, 2022 In-Center Hemodialysis Treatment -0 T1 1: 12 :3 7. 00 0Z 0 T1 4: 57 :3 7. 00 0Z BP Sitting (Pre-Dial ysis) 105/66 mmHg BP Sitting (Post-May lysis) 122/78 mmHg Concurrent Access: falseCentral Venous Catheter (CVC) Other Arterial BP Standing (Pre-Dialysis) 142/94 mmHg BP Standing (P ost-Dialysis) 103/72 mmHg Sitting Heart Rate Pre-Dialysis 88 BPM Sitting Heart Rate Post-Dialysis 87 BPM Standing Heart Rate Pre-Dialysis 95 BPM Standing Heart Rate Post-Dialysis 91 BPM Temperature Pre-Dialysis 97.1 degF Temperature Post -Dialysis 97.2 degF July 25, 2022 In-Center Hemodialysis Treatment [id number]:09:00.000Z 1951-12-69F26:23:00.000Z BP Sitting (Pre-Dialysis) 148/100 mmHg BP Sitting (Post-Dialysis) 126/81 mmHg Concurrent Access: falseCentral Venous Catheter (CVC) Other Arterial BP Standing (Pre-Dialysis) 130/91 mmHg BP Standing (P ost-Dialysis) 122/71 mmHg Sitting Heart Rate Pre-Dialysis 83 BPM Sitting Heart Rate Post-Dialysis 80 BPM Standing Heart Rate Pre-Dialysis 91 BPM Standing Heart Rate Post-Dialysis 87 BPM Temperature Pre-Dialysis 97.3 degF Temperature Post -Dialysis 97.2 degF July 23, 2022 In-Center Hemodialysis Treatment 7660-29-71R38:13:33.000Z 6049-69-75Z33:54:33.000Z BP Sitting (Pre-Dialysis) 175/101 mmHg BP Sitting (Post-Dialysis) 113/65 mmHg Concurrent Access: falseCentral Venous Catheter (CVC) Other Arterial BP Standing (Pre-Dialysis) 151/99 mmHg BP Standing (P ost-Dialysis) 142/115 mmHg Sitting Heart Rate Pre-Dialysis 78 BPM Sitting Heart Rate Post-Dialysis 81 BPM Standing Heart Rate Pre-Dialysis 79 BPM Standing Heart Rate Post-Dialysis 85 BPM Temperature Pre-Dialysis 97.4 degF Temperature Post -Dialysis 97 degF July 21, 2022 In-Center Hemodialysis Treatment 5999-85-88T96:12:00.000Z 2396-84-46J26:59:31.000Z BP Sitting (Pre-Dialysis) 209/114 mmHg BP Sitting (Post-Dialysis) 105/43 mmHg Concurrent Access: falseCentral Venous Catheter (CVC) Other Arterial BP Standing (Pre-Dialysis) 172/89 mmHg BP Standing (P ost-Dialysis) 111/62 mmHg Sitting Heart Rate Pre-Dialysis 68 BPM Sitting Heart Rate Post-Dialysis 79 BPM Standing Heart Rate Pre-Dialysis 71 BPM Standing Heart Rate Post-Dialysis 82 BPM Temperature Pre-Dialysis 97 degF Temperature Post -Dialysis 96.7 degF July 18, 2022 In-Center Hemodialysis Treatment 1913-41-05S52:15:26.000Z [id number]:01:26.000Z BP Sitting (Pre-Dialysis) 213/113 mmHg BP Sitting (Post-Dialysis) 199/103 mmHg Concurrent Access: falseCentral Venous Catheter (CVC) Other Arterial BP Standing (Pre-Dialysis) 190/99 mmHg BP Standing (P ost-Dialysis) 178/108 mmHg Sitting Heart Rate Pre-Dialysis 77 BPM Sitting Heart Rate Post-Dialysis 76 BPM Standing Heart Rate Pre-Dialysis 84 BPM Standing Heart Rate Post-Dialysis 85 BPM Temperature Pre-Dialysis 97.5 degF Temperature Post -Dialysis 96.9 degF July 16, 2022 In-Center Hemodialysis Treatment [id number]:55:10.000Z 3198-05-85H02:41:11.000Z BP Sitting (Pre-Dialysis) 176/112 mmHg BP Sitting (Post-Dialysis) 135/79 mmHg Concurrent Access: falseCentral Venous Catheter (CVC) Other Arterial Sitting Heart Rate Pre-Dialysis 79 BPM BP Standi ng (Post-Dialysis) 127/83 mmHg Temperature Pre-Dialysis 97 degF Sitting Heart Ra te Post-Dialysis 62 BPM Standing Heart Rate Post-May lysis 73 BPM Temperature Post-Dialysis 97 .1 degF July 14, 2022 In-Center Hemodialysis Treatment [id number]:12:40.000Z [id number]:00:40.000Z BP Sitting (Pre-Dialysis) 206/115 mmHg BP Sitting (Post-Dialysis) 118/67 mmHg Concurrent Access: falseCentral Venous Catheter (CVC) Other Arterial BP Standing (Pre-Dialysis) 210/119 mmHg BP Standing (P ost-Dialysis) 111/57 mmHg Sitting Heart Rate Pre-Dialysis 79 BPM Sitting Heart Rate Post-Dialysis 74 BPM Standing Heart Rate Pre-Dialysis 84 BPM Standing Heart Rate Post-Dialysis 76 BPM Temperature Pre-Dialysis 97.4 degF Temperature Post -Dialysis 97.1 degF July 11, 2022 In-Center Hemodialysis Treatment [id number]:08:00.000Z 2993-27-89Z16:28:11.000Z BP Sitting (Pre-Dialysis) 173/86 mmHg BP Sitting (Post-Dialysis) 197/73 mmHg Concurrent Access: falseCentral Venous Catheter (CVC) Other Arterial BP Standing (Pre-Dialysis) 151/88 mmHg BP Standing (P ost-Dialysis) 124/74 mmHg Sitting Heart Rate Pre-Dialysis 76 BPM Sitting Heart Rate Post-Dialysis 68 BPM Standing Heart Rate Pre-Dialysis 66 BPM Standing Heart Rate Post-Dialysis 87 BPM Temperature Pre-Dialysis 97 degF Temperature Post -Dialysis 97.3 degF July 09, 2022 In-Center Hemodialysis Treatment [id number]:08:44.000Z 4655-15-01W96:50:44.000Z BP Sitting (Pre-Dialysis) 184/126 mmHg BP Sitting (Post-Dialysis) 165/98 mmHg Concurrent Access: falseCentral Venous Catheter (CVC) Other Arterial BP Standing (Pre-Dialysis) 191/114 mmHg BP Standing (P ost-Dialysis) 110/73 mmHg Sitting Heart Rate Pre-Dialysis 84 BPM Sitting Heart Rate Post-Dialysis 71 BPM Standing Heart Rate Pre-Dialysis 76 BPM Standing Heart Rate Post-Dialysis 77 BPM Temperature Pre-Dialysis 97.3 degF Temperature Post -Dialysis 97 degF July 07, 2022 In-Center Hemodialysis Treatment [id number]:10:00.000Z 1524-99-45O31:53:44.000Z BP Sitting (Pre-Dialysis) 133/73 mmHg BP Sitting (Post-Dialysis) 109/57 mmHg Concurrent Access: falseCentral Venous Catheter (CVC) Other Arterial BP Standing (Pre-Dialysis) 156/99 mmHg BP Standing (P ost-Dialysis) 96/48 mmHg Sitting Heart Rate Pre-Dialysis 82 BPM Sitting Heart Rate Post-Dialysis 73 BPM Standing Heart Rate Pre-Dialysis 75 BPM Standing Heart Rate Post-Dialysis 76 BPM Temperature Pre-Dialysis 97.2 degF Temperature Post -Dialysis 97.6 degF July 04, 2022 In-Center Hemodialysis Treatment [id number]:09:00.000Z 4180-89-49F73:20:08.000Z BP Sitting (Pre-Dialysis) 156/109 mmHg BP Sitting (Post-Dialysis) 135/84 mmHg Concurrent Access: falseCentral Venous Catheter (CVC) Other Arterial Sitting Heart Rate Pre-Dialysis 82 BPM BP Standing (Post-Dialysis) 109/74 mmHg Temperature Pre-Dialysis 97.3 degF Sitting Heart Ra te Post-Dialysis 70 BPM Standing Heart Rate Post-May lysis 75 BPM Temperature Post-Dialysis 97 .2 degF July 02, 2022 In-Center Hemodialysis Treatment [id number]:48:00.000Z [id number]:24:08.000Z BP Sitting (Pre-Dialysis) 235/115 mmHg BP Sitting (Post-Dialysis) 197/87 mmHg Concurrent Access: falseCentral Venous Catheter (CVC) Other Arterial BP Standing (Pre-Dialysis) 217/130 mmHg BP Standing (P ost-Dialysis) 145/84 mmHg Sitting Heart Rate Pre-Dialysis 78 BPM Sitting Heart Rate Post-Dialysis 74 BPM Standing Heart Rate Pre-Dialysis 73 BPM Standing Heart Rate Post-Dialysis 86 BPM Temperature Pre-Dialysis 97.3 degF Temperature Post -Dialysis 97.3 degF June 30, 2022 In-Center Hemodialysis Treatment [id number]:04:00.000Z 5947-15-43Q05:10:34.000Z BP Sitting (Pre-Dialysis) 196/112 mmHg BP Sitting (Post-Dialysis) 91/60 mmHg Concurrent Access: falseCentral Venous Catheter (CVC) Other Arterial BP Standing (Pre-Dialysis) 185/126 mmHg Sitti ng Heart Rate Post-Dialysis 77 BPM Sitting Heart Rate Pre-Dialysis 65 BPM Temperatu re Post-Dialysis 97.8 degF Standing Heart Rate Pre-Dialysis 76 BPM Temperature Pre-Dialysis 97.1 degF June 27, 2022 In-Center Hemodialysis Treatment [id number]:08:25.000Z 0477-41-94D92:42:25.000Z BP Sitting (Pre-Dialysis) 157/98 mmHg BP Sitting (Post-Dialysis) 124/74 mmHg Concurrent Access: falseCentral Venous Catheter (CVC) Other Arterial BP Standing (Pre-Dialysis) 133/91 mmHg BP Standing (P ost-Dialysis) 105/73 mmHg Sitting Heart Rate Pre-Dialysis 74 BPM Sitting Heart Rate Post-Dialysis 83 BPM Standing Heart Rate Pre-Dialysis 88 BPM Standing Heart Rate Post-Dialysis 85 BPM Temperature Pre-Dialysis 97.4 degF Temperature Post -Dialysis 97 degF June 25, 2022 In-Center Hemodialysis Treatment [id number]:06:00.000Z 5372-05-17Z34:59:25.000Z BP Sitting (Pre-Dialysis) 131/65 mmHg BP Sitting (Post-Dialysis) 175/118 mmHg Concurrent Access: falseCentral Venous Catheter (CVC) Other Arterial BP Standing (Pre-Dialysis) 244/157 mmHg BP Standing (P ost-Dialysis) 128/86 mmHg Sitting Heart Rate Pre-Dialysis 69 BPM Sitting Heart Rate Post-Dialysis 98 BPM Standing Heart Rate Pre-Dialysis 78 BPM Standing Heart Rate Post-Dialysis 89 BPM Temperature Pre-Dialysis 97.3 degF Temperature Post -Dialysis 97.3 degF June 23, 2022 In-Center Hemodialysis Treatment 9317-90-53X77:08:00.000Z 3837-49-36Z06:53:25.000Z BP Sitting (Pre-Dialysis) 196/113 mmHg BP Sitting (Post-Dialysis) 141/91 mmHg Concurrent Access: falseCentral Venous Catheter (CVC) Other Arterial BP Standing (Pre-Dialysis) 144/105 mmHg BP Standing (P ost-Dialysis) 123/57 mmHg Sitting Heart Rate Pre-Dialysis 77 BPM Sitting Heart Rate Post-Dialysis 70 BPM Standing Heart Rate Pre-Dialysis 78 BPM Standing Heart Rate Post-Dialysis 70 BPM Temperature Pre-Dialysis 97.3 degF Temperature Post -Dialysis 97 degF June 20, 2022 In-Center Hemodialysis Treatment [id number]:11:00.000Z 6902-56-80E32:01:53.000Z BP Sitting (Pre-Dialysis) 91/52 mmHg BP Sitting (Post-Dialysis) 98/54 mmHg Concurrent Access: falseCentral Venous Catheter (CVC) Other Arterial Sitting Heart Rate Pre-Dialysis 68 BPM Sitting H eart Rate Post-Dialysis 67 BPM Temperature Pre-Dialysis 97.7 degF Temperature Post -Dialysis 97.1 degF June 18, 2022 In-Center Hemodialysis Treatment [id number]:18:00.000Z 4412-98-13S71:05:53.000Z BP Sitting (Pre-Dialysis) 102/55 mmHg BP Sitting (Post-Dialysis) 112/72 mmHg Concurrent Access: falseCentral Venous Catheter (CVC) Other Arterial BP Standing (Pre-Dialysis) 86/54 mmHg BP Standing (P ost-Dialysis) 108/72 mmHg Sitting Heart Rate Pre-Dialysis 61 BPM Sitting Heart Rate Post-Dialysis 56 BPM Standing Heart Rate Pre-Dialysis 64 BPM Standing Heart Rate Post-Dialysis 57 BPM Temperature Pre-Dialysis 97.2 degF Temperature Post -Dialysis 97.1 degF June 16, 2022 In-Center Hemodialysis Treatment [id number]:16:52.000Z 1860-15-19M19:05:53.000Z BP Sitting (Pre-Dialysis) 153/102 mmHg BP Sitting (Post-Dialysis) 125/71 mmHg Concurrent Access: falseCentral Venous Catheter (CVC) Other Arterial BP Standing (Pre-Dialysis) 121/76 mmHg BP Standing (P ost-Dialysis) 115/73 mmHg Sitting Heart Rate Pre-Dialysis 98 BPM Sitting Heart Rate Post-Dialysis 68 BPM Standing Heart Rate Pre-Dialysis 74 BPM Standing Heart Rate Post-Dialysis 73 BPM Temperature Pre-Dialysis 97.2 degF Temperature Post -Dialysis 97.2 degF June 13, 2022 In-Center Hemodialysis Treatment 1819-56-32J69:52:00.000Z 7724-94-97G90:44:23.000Z BP Sitting (Pre-Dialysis) 129/72 mmHg BP Sitting (Post-Dialysis) 127/82 mmHg Concurrent Access: falseCentral Venous Catheter (CVC) Other Arterial Sitting Heart Rate Pre-Dialysis 66 BPM BP Standing (Post-Dialysis) 118/74 mmHg Temperature Pre-Dialysis 97.4 degF Sitting Heart Ra te Post-Dialysis 64 BPM Standing Heart Rate Post-May lysis 64 BPM Temperature Post-Dialysis 97 .1 degF June 11, 2022 In-Center Hemodialysis Treatment [id number]:10:00.000Z 0584-96-63J82:25:23.000Z BP Sitting (Pre-Dialysis) 99/59 mmHg BP Sitting (Post-Dialysis) 100/62 mmHg Concurrent Access: falseCentral Venous Catheter (CVC) Other Arterial Sitting Heart Rate Pre-Dialysis 68 BPM Sitting H eart Rate Post-Dialysis 62 BPM Temperature Pre-Dialysis 97.2 degF Temperature Post -Dialysis 97.2 degF June 10, 2022 In-Center Hemodialysis Treatment [id number]:45:00.000Z 8890-86-21I70:16:13.000Z BP Sitting (Pre-Dialysis) 182/104 mmHg BP Sitting (Post-Dialysis) 164/100 mmHg Concurrent Access: falseCentral Venous Catheter (CVC) Other Arterial Sitting Heart Rate Pre-Dialysis 71 BPM BP Standing (Post-Dialysis) 157/95 mmHg Temperature Pre-Dialysis 97.3 degF Sitting Heart Ra te Post-Dialysis 84 BPM Standing Heart Rate Post-May lysis 71 BPM Temperature Post-Dialysis 97 .5 degF June 06, 2022 In-Center Hemodialysis Treatment 0838-74-03D75:22:00.000Z 6590-55-38Z10:18:15.000Z BP Sitting (Pre-Dialysis) 101/58 mmHg BP Sitting (Post-Dialysis) 121/66 mmHg Concurrent Access: falseCentral Venous Catheter (CVC) Other Arterial Sitting Heart Rate Pre-Dialysis 71 BPM BP Standing (Post-Dialysis) 122/66 mmHg Temperature Pre-Dialysis 98.3 degF Sitting Heart Ra te Post-Dialysis 69 BPM Standing Heart Rate Post-May lysis 68 BPM Temperature Post-Dialysis 98 .4 degF June 04, 2022 In-Center Hemodialysis Treatment 7266-03-58G82:19:00.000Z 6994-46-19M45:58:15.000Z BP Sitting (Pre-Dialysis) 122/68 mmHg BP Sitting (Post-Dialysis) 101/58 mmHg Concurrent Access: falseCentral Venous Catheter (CVC) Other Arterial Sitting Heart Rate Pre-Dialysis 85 BPM Sitting H eart Rate Post-Dialysis 71 BPM Temperature Pre-Dialysis 97.6 degF Temperature Post -Dialysis 97.5 degF June 02, 2022 In-Center Hemodialysis Treatment [id number]:12:00.000Z 2492-77-86Z22:10:51.000Z BP Sitting (Pre-Dialysis) 91/59 mmHg BP Sitting (Post-Dialysis) 135/61 mmHg Concurrent Access: falseCentral Venous Catheter (CVC) Other Arterial BP Standing (Pre-Dialysis) 71/42 mmHg BP Standing (P ost-Dialysis) 108/66 mmHg Sitting Heart Rate Pre-Dialysis 69 BPM Sitting Heart Rate Post-Dialysis 63 BPM Standing Heart Rate Pre-Dialysis 88 BPM Standing Heart Rate Post-Dialysis 72 BPM Temperature Pre-Dialysis 97.3 degF Temperature Post -Dialysis 97.3 degF May 30, 2022 In-Center Hemodialysis Treatment 4733-85-25C67:08:00.000Z 7077-23-94Y60:47:51.000Z BP Sitting (Pre-Dialysis) 176/92 mmHg BP Sitting (Post-Dialysis) 143/81 mmHg Concurrent Access: falseCentral Venous Catheter (CVC) Other Arterial BP Standing (Pre-Dialysis) 153/84 mmHg BP Standing (P ost-Dialysis) 115/78 mmHg Sitting Heart Rate Pre-Dialysis 81 BPM Sitting Heart Rate Post-Dialysis 90 BPM Standing Heart Rate Pre-Dialysis 80 BPM Standing Heart Rate Post-Dialysis 88 BPM Temperature Pre-Dialysis 97.4 degF Temperature Post -Dialysis 97 degF May 28, 2022 In-Center Hemodialysis Treatment 5620-71-52U07:13:00.000Z 2630-18-33A52:03:51.000Z BP Sitting (Pre-Dialysis) 122/71 mmHg BP Sitting (Post-Dialysis) 102/62 mmHg Concurrent Access: falseCentral Venous Catheter (CVC) Other Arterial BP Standing (Pre-Dialysis) 10/63 mmHg BP Standing (P ost-Dialysis) 117/73 mmHg Sitting Heart Rate Pre-Dialysis 80 BPM Sitting Heart Rate Post-Dialysis 71 BPM Standing Heart Rate Pre-Dialysis 90 BPM Standing Heart Rate Post-Dialysis 70 BPM Temperature Pre-Dialysis 97.3 degF Temperature Post -Dialysis 97 degF May 26, 2022 In-Center Hemodialysis Treatment [id number]:16:00.000Z 2734-08-79D59:53:00.000Z BP Sitting (Pre-Dialysis) 161/78 mmHg BP Sitting (Post-Dialysis) 126/69 mmHg Concurrent Access: falseCentral Venous Catheter (CVC) Other Arterial BP Standing (Pre-Dialysis) 146/86 mmHg BP Standing (P ost-Dialysis) 98/45 mmHg Sitting Heart Rate Pre-Dialysis 96 BPM Sitting Heart Rate Post-Dialysis 75 BPM Standing Heart Rate Pre-Dialysis 81 BPM Standing Heart Rate Post-Dialysis 75 BPM Temperature Pre-Dialysis 98.4 degF Temperature Post -Dialysis 97.4 degF May 23, 2022 In-Center Hemodialysis Treatment [id number]:20:00.000Z 4967-78-84P48:50:26.000Z BP Sitting (Pre-Dialysis) 213/109 mmHg BP Sitting (Post-Dialysis) 187/105 mmHg Concurrent Access: falseCentral Venous Catheter (CVC) Other Arterial BP Standing (Pre-Dialysis) 184/117 mmHg BP Standing (P ost-Dialysis) 150/106 mmHg Sitting Heart Rate Pre-Dialysis 95 BPM Sitting Heart Rate Post-Dialysis 95 BPM Standing Heart Rate Pre-Dialysis 98 BPM Standing Heart Rate Post-Dialysis 112 BPM Temperature Pre-Dialysis 97 degF Temperature Post -Dialysis 97 degF 2022 In-Center Hemodialysis Treatment 0162-01-01K94:05:00.000Z 4587-71-24T55:53:06.000Z BP Sitting (Pre-Dialysis) 230/122 mmHg BP Sitting (Post-Dialysis) 196/100 mmHg Concurrent Access: falseCentral Venous Catheter (CVC) Other Arterial BP Standing (Pre-Dialysis) 228/131 mmHg BP Standing (P ost-Dialysis) 105/89 mmHg Sitting Heart Rate Pre-Dialysis 82 BPM Sitting Heart Rate Post-Dialysis 120 BPM Standing Heart Rate Pre-Dialysis 91 BPM Standing Heart Rate Post-Dialysis 127 BPM Temperature Pre-Dialysis 97.8 degF Temperature Post -Dialysis 98.4 degF May 19, 2022 In-Center Hemodialysis Treatment 6495-03-92Y58:15:00.000Z 4663-12-44R16:02:33.000Z BP Sitting (Pre-Dialysis) 138/69 mmHg BP Sitting (Post-Dialysis) 127/92 mmHg Concurrent Access: falseCentral Venous Catheter (CVC) Other Arterial BP Standing (Pre-Dialysis) 160/98 mmHg Sitting Heart Rate Post-Dialysis 69 BPM Sitting Heart Rate Pre-Dialysis 70 BPM Standing Heart Rate Pre-Dialysis 69 BPM Temperature Pre-Dialysis 97.2 degF May 16, 2022 In-Center Hemodialysis Treatment [id number]:59:00.000Z 9547-02-01Z95:37:20.000Z BP Sitting (Pre-Dialysis) 134/79 mmHg BP Sitting (Post-Dialysis) 92/49 mmHg Concurrent Access: falseCentral Venous Catheter (CVC) Other Arterial BP Standing (Pre-Dialysis) 134/80 mmHg Sitti ng Heart Rate Post-Dialysis 65 BPM Sitting Heart Rate Pre-Dialysis 67 BPM Temperatu re Post-Dialysis 97.5 degF Standing Heart Rate Pre-Dialysis 70 BPM Temperature Pre-Dialysis 97.6 degF May 14, 2022 In-Center Hemodialysis Treatment 2770-64-49R14:12:00.000Z 9327-38-10Z12:56:20.000Z BP Sitting (Pre-Dialysis) 144/89 mmHg BP Sitting (Post-Dialysis) 111/68 mmHg Concurrent Access: falseCentral Venous Catheter (CVC) Other Arterial Sitting Heart Rate Pre-Dialysis 67 BPM BP Standi ng (Post-Dialysis) 123/66 mmHg Temperature Pre-Dialysis 98 degF Sitting Heart Ra te Post-Dialysis 81 BPM Standing Heart Rate Post-May lysis 65 BPM Temperature Post-Dialysis 98 degF May 12, 2022 In-Center Hemodialysis Treatment 5281-10-39M16:25:00.000Z 4670-84-19G23:47:45.000Z BP Sitting (Pre-Dialysis) 150/85 mmHg BP Sitting (Post-Dialysis) 106/65 mmHg Concurrent Access: falseCentral Venous Catheter (CVC) Other Arterial BP Standing (Pre-Dialysis) 136/81 mmHg BP Standing (P ost-Dialysis) 104/73 mmHg Sitting Heart Rate Pre-Dialysis 76 BPM Sitting Heart Rate Post-Dialysis 77 BPM Standing Heart Rate Pre-Dialysis 79 BPM Standing Heart Rate Post-Dialysis 77 BPM Temperature Pre-Dialysis 97.4 degF Temperature Post -Dialysis 96.8 degF May 09, 2022 In-Center Hemodialysis Treatment 1870-42-26Z24:07:00.000Z 7868-63-37J37:55:15.000Z BP Sitting (Pre-Dialysis) 199/114 mmHg BP Sitting (Post-Dialysis) 150/78 mmHg Concurrent Access: falseCentral Venous Catheter (CVC) Other Arterial BP Standing (Pre-Dialysis) 203/126 mmHg BP Standing (P ost-Dialysis) 170/100 mmHg Sitting Heart Rate Pre-Dialysis 82 BPM Sitting Heart Rate Post-Dialysis 78 BPM Standing Heart Rate Pre-Dialysis 90 BPM Standing Heart Rate Post-Dialysis 80 BPM Temperature Pre-Dialysis 97.3 degF Temperature Post -Dialysis 97.2 degF May 07, 2022 In-Center Hemodialysis Treatment 7913-10-66L41:18:00.000Z 1548-54-26J19:47:15.000Z BP Sitting (Pre-Dialysis) 210/116 mmHg BP Sitting (Post-Dialysis) 160/89 mmHg Concurrent Access: falseCentral Venous Catheter (CVC) Other Arterial BP Standing (Pre-Dialysis) 201/115 mmHg BP Standing (P ost-Dialysis) 133/78 mmHg Sitting Heart Rate Pre-Dialysis 79 BPM Sitting Heart Rate Post-Dialysis 71 BPM Standing Heart Rate Pre-Dialysis 73 BPM Standing Heart Rate Post-Dialysis 78 BPM Temperature Pre-Dialysis 97.2 degF Temperature Post -Dialysis 97.3 degF May 05, 2022 In-Center Hemodialysis Treatment 5291-76-72J67:10:00.000Z 3519-30-93S98:00:15.000Z BP Sitting (Pre-Dialysis) 212/100 mmHg BP Sitting (Post-Dialysis) 169/112 mmHg Concurrent Access: falseCentral Venous Catheter (CVC) Other Arterial BP Standing (Pre-Dialysis) 217/124 mmHg BP Standing (P ost-Dialysis) 197/123 mmHg Sitting Heart Rate Pre-Dialysis 86 BPM Sitting Heart Rate Post-Dialysis 76 BPM Standing Heart Rate Pre-Dialysis 85 BPM Standing Heart Rate Post-Dialysis 75 BPM Temperature Pre-Dialysis 97.2 degF May 02, 2022 In-Center Hemodialysis Treatment [id number]:16:00.000Z 8307-58-53A13:04:07.000Z BP Sitting (Pre-Dialysis) 166/102 mmHg BP Sitting (Post-Dialysis) 174/88 mmHg Concurrent Access: falseCentral Venous Catheter (CVC) Other Arterial BP Standing (Pre-Dialysis) 151/86 mmHg BP Standing (P ost-Dialysis) 154/92 mmHg Sitting Heart Rate Pre-Dialysis 68 BPM Sitting Heart Rate Post-Dialysis 73 BPM Standing Heart Rate Pre-Dialysis 70 BPM Standing Heart Rate Post-Dialysis 80 BPM Temperature Pre-Dialysis 97.4 degF Temperature Post -Dialysis 97.2 degF April 30, 2022 In-Center Hemodialysis Treatment 2302-60-88C81:05:00.000Z 6706-40-77B78:57:11.000Z BP Sitting (Pre-Dialysis) 150/80 mmHg BP Sitting (Post-Dialysis) 151/81 mmHg Concurrent Access: falseCentral Venous Catheter (CVC) Other Arterial Sitting Heart Rate Pre-Dialysis 62 BPM BP Standing (Post-Dialysis) 167/91 mmHg Temperature Pre-Dialysis 96.7 degF Sitting Heart Ra te Post-Dialysis 67 BPM Standing Heart Rate Post-May lysis 64 BPM Temperature Post-Dialysis 96 .8 degF April 21, 2022 In-Center Hemodialysis Treatment 2585-72-14U58:06:00.000Z 5704-96-24E17:58:55.000Z BP Sitting (Pre-Dialysis) 167/112 mmHg BP Sitting (Post-Dialysis) 124/67 mmHg Concurrent Access: falseCentral Venous Catheter (CVC) Other Arterial BP Standing (Pre-Dialysis) 140/83 mmHg BP Standing (P ost-Dialysis) 93/50 mmHg Sitting Heart Rate Pre-Dialysis 91 BPM Sitting Heart Rate Post-Dialysis 76 BPM Standing Heart Rate Pre-Dialysis 78 BPM Standing Heart Rate Post-Dialysis 71 BPM Temperature Pre-Dialysis 97.4 degF Temperature Post -Dialysis 97.4 degF April 18, 2022 In-Center Hemodialysis Treatment 9613-64-92C33:10:00.000Z 8906-76-98G57:50:42.000Z BP Sitting (Pre-Dialysis) 210/117 mmHg BP Sitting (Post-Dialysis) 141/78 mmHg Concurrent Access: falseCentral Venous Catheter (CVC) Other Arterial Sitting Heart Rate Pre-Dialysis 80 BPM BP Standing (Post-Dialysis) 134/82 mmHg Temperature Pre-Dialysis 97.3 degF Sitting Heart Ra te Post-Dialysis 72 BPM Standing Heart Rate Post-May lysis 75 BPM Temperature Post-Dialysis 97 .1 degF April 16, 2022 In-Center Hemodialysis Treatment 5074-54-70D52:33:00.000Z 5758-66-20L41:55:12.000Z BP Sitting (Pre-Dialysis) 225/121 mmHg BP Sitting (Post-Dialysis) 236/124 mmHg Concurrent Access: falseCentral Venous Catheter (CVC) Other Arterial Sitting Heart Rate Pre-Dialysis 106 BPM Sitting H eart Rate Post-Dialysis 97 BPM Temperature Pre-Dialysis 97 degF Temperature Post -Dialysis 97.2 degF April 11, 2022 In-Center Hemodialysis Treatment [id number]:16:00.000Z 5070-86-74L99:10:12.000Z BP Sitting (Pre-Dialysis) 148/86 mmHg BP Sitting (Post-Dialysis) 128/77 mmHg Concurrent Access: falseCentral Venous Catheter (CVC) Other Arterial Sitting Heart Rate Pre-Dialysis 76 BPM Sitting H eart Rate Post-Dialysis 63 BPM Temperature Pre-Dialysis 97.2 degF Temperature Post -Dialysis 97.2 degF April 09, 2022 In-Center Hemodialysis Treatment 7527-90-34W81:28:00.000Z 4027-92-59Y36:43:20.000Z BP Sitting (Pre-Dialysis) 146/81 mmHg BP Sitting (Post-Dialysis) 129/71 mmHg Concurrent Access: falseCentral Venous Catheter (CVC) Other Arterial BP Standing (Pre-Dialysis) 127/69 mmHg BP Standing (P ost-Dialysis) 114/48 mmHg Sitting Heart Rate Pre-Dialysis 69 BPM Sitting Heart Rate Post-Dialysis 70 BPM Standing Heart Rate Pre-Dialysis 73 BPM Standing Heart Rate Post-Dialysis 75 BPM Temperature Pre-Dialysis 97.2 degF Temperature Post -Dialysis 97.1 degF April 07, 2022 In-Center Hemodialysis Treatment [id number]:19:00.000Z 4199-95-47V19:31:07.000Z BP Sitting (Pre-Dialysis) 189/103 mmHg BP Sitting (Post-Dialysis) 158/77 mmHg Concurrent Access: falseCentral Venous Catheter (CVC) Other Arterial Sitting Heart Rate Pre-Dialysis 71 BPM Sitting H eart Rate Post-Dialysis 63 BPM Temperature Pre-Dialysis 97 degF Temperature Post -Dialysis 97.4 degF April 04, 2022 In-Center Hemodialysis Treatment [id number]:10:00.000Z 7082-47-76I52:57:15.000Z BP Sitting (Pre-Dialysis) 110/67 mmHg BP Sitting (Post-Dialysis) 127/70 mmHg Concurrent Access: falseCentral Venous Catheter (CVC) Other Arterial Sitting Heart Rate Pre-Dialysis 69 BPM BP Standing (Post-Dialysis) 115/63 mmHg Temperature Pre-Dialysis 97.5 degF Sitting Heart Ra te Post-Dialysis 62 BPM Standing Heart Rate Post-May lysis 73 BPM Temperature Post-Dialysis 97 .2 degF April 02, 2022 In-Center Hemodialysis Treatment 2852-54-58K55:24:00.000Z 7165-28-82I26:10:46.000Z BP Sitting (Pre-Dialysis) 145/88 mmHg BP Sitting (Post-Dialysis) 143/81 mmHg Concurrent Access: falseCentral Venous Catheter (CVC) Other Arterial BP Standing (Pre-Dialysis) 102/57 mmHg BP Standing (P ost-Dialysis) 106/65 mmHg Sitting Heart Rate Pre-Dialysis 68 BPM Sitting Heart Rate Post-Dialysis 85 BPM Standing Heart Rate Pre-Dialysis 72 BPM Standing Heart Rate Post-Dialysis 70 BPM Temperature Pre-Dialysis 97.3 degF Temperature Post -Dialysis 97.3 degF March 31, 2022 In-Center Hemodialysis Treatment [id number]:25:00.000Z 5841-75-24T67:11:46.000Z BP Sitting (Pre-Dialysis) 158/90 mmHg BP Sitting (Post-Dialysis) 177/91 mmHg Concurrent Access: falseCentral Venous Catheter (CVC) Other Arterial BP Standing (Pre-Dialysis) 130/78 mmHg BP Standing (P ost-Dialysis) 148/81 mmHg Sitting Heart Rate Pre-Dialysis 71 BPM Sitting Heart Rate Post-Dialysis 69 BPM Standing Heart Rate Pre-Dialysis 71 BPM Standing Heart Rate Post-Dialysis 74 BPM Temperature Pre-Dialysis 97.7 degF Temperature Post -Dialysis 98.1 degF March 28, 2022 In-Center Hemodialysis Treatment [id number]:20:00.000Z 4357-61-50A14:24:36.000Z BP Sitting (Pre-Dialysis) 200/113 mmHg BP Sitting (Post-Dialysis) 179/96 mmHg Concurrent Access: falseCentral Venous Catheter (CVC) Other Arterial BP Standing (Pre-Dialysis) 183/102 mmHg Sitti ng Heart Rate Post-Dialysis 81 BPM Sitting Heart Rate Pre-Dialysis 88 BPM Temperatu re Post-Dialysis 98.2 degF Standing Heart Rate Pre-Dialysis 81 BPM Temperature Pre-Dialysis 97.3 degF March 26, 2022 In-Center Hemodialysis Treatment [id number]:34:00.000Z 2462-57-75H17:23:24.000Z BP Sitting (Pre-Dialysis) 188/103 mmHg BP Sitting (Post-Dialysis) 213/105 mmHg Concurrent Access: falseCentral Venous Catheter (CVC) Other Arterial BP Standing (Pre-Dialysis) 185/96 mmHg BP Standing (P ost-Dialysis) 187/90 mmHg Sitting Heart Rate Pre-Dialysis 74 BPM Sitting Heart Rate Post-Dialysis 86 BPM Standing Heart Rate Pre-Dialysis 85 BPM Standing Heart Rate Post-Dialysis 88 BPM Temperature Pre-Dialysis 97.9 degF Temperature Post -Dialysis 97.8 degF March 24, 2022 In-Center Hemodialysis Treatment [id number]:40:00.000Z 6692-54-52K55:31:24.000Z BP Sitting (Pre-Dialysis) 162/90 mmHg BP Sitting (Post-Dialysis) 171/90 mmHg Concurrent Access: falseCentral Venous Catheter (CVC) Other Arterial BP Standing (Pre-Dialysis) 144/80 mmHg BP Standing (P ost-Dialysis) 144/68 mmHg Sitting Heart Rate Pre-Dialysis 75 BPM Sitting Heart Rate Post-Dialysis 80 BPM Standing Heart Rate Pre-Dialysis 76 BPM Standing Heart Rate Post-Dialysis 78 BPM Temperature Pre-Dialysis 97.6 degF Temperature Post -Dialysis 98.1 degF March 19, 2022 In-Center Hemodialysis Treatment [id number]:08:09.000Z [id number]:38:09.000Z BP Sitting (Pre-Dialysis) 222/117 mmHg BP Sitting (Post-Dialysis) 106/55 mmHg Concurrent Access: falseCentral Venous Catheter (CVC) Other Arterial BP Standing (Pre-Dialysis) 189/106 mmHg Sitti ng Heart Rate Post-Dialysis 73 BPM Sitting Heart Rate Pre-Dialysis 88 BPM Temperatu re Post-Dialysis 96.8 degF Standing Heart Rate Pre-Dialysis 91 BPM Temperature Pre-Dialysis 97.5 degF March 17, 2022 In-Center Hemodialysis Treatment [id number]:35:00.000Z [id number]:22:09.000Z BP Sitting (Pre-Dialysis) 171/96 mmHg BP Sitting (Post-Dialysis) 148/92 mmHg Concurrent Access: falseCentral Venous Catheter (CVC) Other Arterial BP Standing (Pre-Dialysis) 156/96 mmHg Sitti ng Heart Rate Post-Dialysis 79 BPM Sitting Heart Rate Pre-Dialysis 79 BPM Temperatu re Post-Dialysis 97.3 degF Standing Heart Rate Pre-Dialysis 89 BPM Temperature Pre-Dialysis 97.2 degF March 14, 2022 In-Center Hemodialysis Treatment [id number]:36:42.000Z [id number]:20:43.000Z BP Sitting (Pre-Dialysis) 83/26 mmHg BP Sitting (Post-Dialysis) 147/51 mmHg Concurrent Access: falseCentral Venous Catheter (CVC) Other Arterial BP Standing (Pre-Dialysis) 126/60 mmHg Sitti ng Heart Rate Post-Dialysis 64 BPM Sitting Heart Rate Pre-Dialysis 73 BPM Temperatu re Post-Dialysis 97.8 degF Standing Heart Rate Pre-Dialysis 74 BPM Temperature Pre-Dialysis 97.7 degF March 12, 2022 In-Center Hemodialysis Treatment [id number]:32:00.000Z [id number]:26:13.000Z BP Sitting (Pre-Dialysis) 142/80 mmHg BP Sitting (Post-Dialysis) 117/66 mmHg Concurrent Access: falseCentral Venous Catheter (CVC) Other Arterial BP Standing (Pre-Dialysis) 124/69 mmHg BP Standing (P ost-Dialysis) 95/57 mmHg Sitting Heart Rate Pre-Dialysis 68 BPM Sitting Heart Rate Post-Dialysis 65 BPM Standing Heart Rate Pre-Dialysis 64 BPM Standing Heart Rate Post-Dialysis 72 BPM Temperature Pre-Dialysis 96.8 degF Temperature Post -Dialysis 97.5 degF March 10, 2022 In-Center Hemodialysis Treatment [id number]:43:00.000Z [id number]:31:24.000Z BP Sitting (Pre-Dialysis) 134/72 mmHg BP Sitting (Post-Dialysis) 126/70 mmHg Concurrent Access: falseCentral Venous Catheter (CVC) Other Arterial Sitting Heart Rate Pre-Dialysis 60 BPM Sitting H eart Rate Post-Dialysis 61 BPM Temperature Pre-Dialysis 96.8 degF Temperature Post -Dialysis 97.5 degF March 07, 2022 In-Center Hemodialysis Treatment [id number]:23:00.000Z [id number]:06:01.000Z BP Sitting (Pre-Dialysis) 126/73 mmHg BP Sitting (Post-Dialysis) 168/88 mmHg Concurrent Access: falseCentral Venous Catheter (CVC) Other Arterial BP Standing (Pre-Dialysis) 119/54 mmHg Sitti ng Heart Rate Post-Dialysis 98 BPM Sitting Heart Rate Pre-Dialysis 72 BPM Temperatu re Post-Dialysis 97.3 degF Standing Heart Rate Pre-Dialysis 72 BPM Temperature Pre-Dialysis 97.7 degF March 03, 2022 In-Center Hemodialysis Treatment [id number]:04:00.000Z [id number]:50:27.000Z BP Sitting (Pre-Dialysis) 162/90 mmHg BP Sitting (Post-Dialysis) 166/100 mmHg Concurrent Access: falseCentral Venous Catheter (CVC) Other Arterial BP Standing (Pre-Dialysis) 139/69 mmHg BP Standing (P ost-Dialysis) 124/69 mmHg Sitting Heart Rate Pre-Dialysis 71 BPM Sitting Heart Rate Post-Dialysis 92 BPM Standing Heart Rate Pre-Dialysis 77 BPM Standing Heart Rate Post-Dialysis 89 BPM Temperature Pre-Dialysis 97 degF Temperature Post -Dialysis 97.3 degF February 25, 2022 In-Center Hemodialysis Treatment [id number]:55:00.000Z [id number]:45:42.000Z BP Sitting (Pre-Dialysis) 108/60 mmHg BP Sitting (Post-Dialysis) 139/71 mmHg Concurrent Access: falseCentral Venous Catheter (CVC) Other Arterial Sitting Heart Rate Pre-Dialysis 67 BPM BP Standing (Post-Dialysis) 103/53 mmHg Temperature Pre-Dialysis 97.1 degF Sitting Heart Ra te Post-Dialysis 66 BPM Standing Heart Rate Post-May lysis 66 BPM February 22, 2022 In-Center Hemodialysis Treatment [id number]:07:00.000Z [id number]:23:27.000Z BP Sitting (Pre-Dialysis) 123/66 mmHg BP Sitting (Post-Dialysis) 97/60 mmHg Concurrent Access: falseCentral Venous Catheter (CVC) Other Arterial BP Standing (Pre-Dialysis) 108/64 mmHg BP Standing (P ost-Dialysis) 98/59 mmHg Sitting Heart Rate Pre-Dialysis 65 BPM Sitting Heart Rate Post-Dialysis 94 BPM Standing Heart Rate Pre-Dialysis 71 BPM Standing Heart Rate Post-Dialysis 58 BPM Temperature Pre-Dialysis 97.3 degF Temperature Post -Dialysis 97.3 degF February 19, 2022 In-Center Hemodialysis Treatment [id number]:24:00.000Z [id number]:05:21.000Z BP Sitting (Pre-Dialysis) 156/78 mmHg BP Sitting (Post-Dialysis) 106/59 mmHg Concurrent Access: falseCentral Venous Catheter (CVC) Other Arterial BP Standing (Pre-Dialysis) 126/68 mmHg Sitting Heart Rate Post-Dialysis 69 BPM Sitting Heart Rate Pre-Dialysis 68 BPM Temperatu re Post-Dialysis 97 degF Standing Heart Rate Pre-Dialysis 74 BPM Temperature Pre-Dialysis 97.6 degF February 17, 2022 In-Center Hemodialysis Treatment [id number]:48:00.000Z [id number]:02:27.000Z BP Sitting (Pre-Dialysis) 184/106 mmHg BP Sitting (Post-Dialysis) 150/110 mmHg Concurrent Access: falseCentral Venous Catheter (CVC) Other Arterial BP Standing (Pre-Dialysis) 163/94 mmHg BP Standing (P ost-Dialysis) 164/90 mmHg Sitting Heart Rate Pre-Dialysis 83 BPM Sitting Heart Rate Post-Dialysis 72 BPM Standing Heart Rate Pre-Dialysis 88 BPM Standing Heart Rate Post-Dialysis 79 BPM Temperature Pre-Dialysis 97.7 degF Temperature Post -Dialysis 98.2 degF February 15, 2022 In-Center Hemodialysis Treatment [id number]:53:00.000Z [id number]:44:17.000Z BP Sitting (Pre-Dialysis) 97/58 mmHg BP Sitting (Post-Dialysis) 173/98 mmHg Concurrent Access: falseCentral Venous Catheter (CVC) Other Arterial BP Standing (Pre-Dialysis) 108/65 mmHg BP Standing (P ost-Dialysis) 107/63 mmHg Sitting Heart Rate Pre-Dialysis 87 BPM Sitting Heart Rate Post-Dialysis 100 BPM Standing Heart Rate Pre-Dialysis 67 BPM Standing Heart Rate Post-Dialysis 76 BPM Temperature Pre-Dialysis 97.1 degF Temperature Post -Dialysis 97.1 degF February 13, 2022 In-Center Hemodialysis Treatment [id number]:17:16.000Z [id number]:59:16.000Z BP Sitting (Pre-Dialysis) 145/78 mmHg BP Sitting (Post-Dialysis) 136/69 mmHg Concurrent Access: falseCentral Venous Catheter (CVC) Other Arterial Sitting Heart Rate Pre-Dialysis 58 BPM BP Standing (Post-Dialysis) 118/67 mmHg Temperature Pre-Dialysis 97.3 degF Sitting Heart Ra te Post-Dialysis 74 BPM Standing Heart Rate Post-May lysis 65 BPM Temperature Post-Dialysis 97 .3 degF February 04, 2022 In-Center Hemodialysis Treatment [id number]:34:00.000Z [id number]:20:57.000Z BP Sitting (Pre-Dialysis) 113/82 mmHg BP Sitting (Post-Dialysis) 180/97 mmHg Concurrent Access: falseCentral Venous Catheter (CVC) Other Arterial BP Standing (Pre-Dialysis) 111/66 mmHg BP Standing (P ost-Dialysis) 159/82 mmHg Sitting Heart Rate Pre-Dialysis 64 BPM Sitting Heart Rate Post-Dialysis 52 BPM Standing Heart Rate Pre-Dialysis 65 BPM Standing Heart Rate Post-Dialysis 64 BPM Temperature Pre-Dialysis 97.4 degF Temperature Post -Dialysis 97.2 degF February 01, 2022 In-Center Hemodialysis Treatment [id number]:47:39.000Z [id number]:37:38.000Z BP Sitting (Pre-Dialysis) 142/80 mmHg BP Sitting (Post-Dialysis) 136/96 mmHg Concurrent Access: falseCentral Venous Catheter (CVC) Other Arterial Sitting Heart Rate Pre-Dialysis 62 BPM BP Standing (Post-Dialysis) 135/73 mmHg Temperature Pre-Dialysis 97.5 degF Sitting Heart Ra te Post-Dialysis 83 BPM Standing Heart Rate Post-May lysis 70 BPM Temperature Post-Dialysis 97 .2 degF January 29, 2022 In-Center Hemodialysis Treatment [id number]:25:45.000Z [id number]:13:12.000Z BP Sitting (Pre-Dialysis) 136/72 mmHg BP Sitting (Post-Dialysis) 174/91 mmHg Concurrent Access: falseCentral Venous Catheter (CVC) Other Arterial BP Standing (Pre-Dialysis) 129/72 mmHg BP Standing (P ost-Dialysis) 154/73 mmHg Sitting Heart Rate Pre-Dialysis 73 BPM Sitting Heart Rate Post-Dialysis 62 BPM Standing Heart Rate Pre-Dialysis 73 BPM Standing Heart Rate Post-Dialysis 68 BPM Temperature Pre-Dialysis 97.6 degF Temperature Post -Dialysis 97.3 degF January 25, 2022 In-Center Hemodialysis Treatment [id number]:38:00.000Z [id number]:45:18.000Z BP Sitting (Pre-Dialysis) 162/88 mmHg BP Sitting (Post-Dialysis) 153/76 mmHg Concurrent Access: falseCentral Venous Catheter (CVC) Other Arterial Sitting Heart Rate Pre-Dialysis 68 BPM BP Standing (Post-Dialysis) 146/77 mmHg Temperature Pre-Dialysis 97.3 degF Sitting Heart Ra te Post-Dialysis 63 BPM Standing Heart Rate Post-May lysis 72 BPM Temperature Post-Dialysis 97 .2 degF January 23, 2022 In-Center Hemodialysis Treatment [id number]:49:47.000Z [id number]:35:47.000Z BP Sitting (Pre-Dialysis) 116/59 mmHg BP Sitting (Post-Dialysis) 128/72 mmHg Concurrent Access: falseCentral Venous Catheter (CVC) Other Arterial Sitting Heart Rate Pre-Dialysis 75 BPM Sitting H eart Rate Post-Dialysis 59 BPM Temperature Pre-Dialysis 97.2 degF Temperature Post -Dialysis 97.2 degF January 21, 2022 In-Center Hemodialysis Treatment [id number]:03:00.000Z [id number]:53:27.000Z BP Sitting (Pre-Dialysis) 136/74 mmHg BP Sitting (Post-Dialysis) 147/71 mmHg Concurrent Access: falseCentral Venous Catheter (CVC) Other Arterial BP Standing (Pre-Dialysis) 111/65 mmHg BP Standing (P ost-Dialysis) 120/63 mmHg Sitting Heart Rate Pre-Dialysis 69 BPM Sitting Heart Rate Post-Dialysis 65 BPM Standing Heart Rate Pre-Dialysis 81 BPM Standing Heart Rate Post-Dialysis 65 BPM Temperature Pre-Dialysis 97 degF Temperature Post -Dialysis 97.7 degF DIALYSIS ORDER Dialysis Procedure Orders Type of Dialysis Procedure Order Order Date/Time Observations In-Center Hemodialysis Treatment September Target Weight 92.5 kg Dialysate Flow Rate 800 mL/min Blood Flow Rate 400 mL/min Treatment Time 225 min(total) Max UF Rate 13 mL/kg/hr Base Sodium Dialysate Base Sodium 138 mE q/L dialysate_temp 37 C BiCarb Dialysate BiCarbonate 34 mEq/L Access Concurrent No Arterial Access Central Venous [facility] (CVC) (Chest (Right)) Venous Access [facility] (CVC) (Chest (Right)) Dialyzer Nipro Elisio 15H 126 4 [email or web address] Dialysate Bath Potassium Potassium 2 mEq /L Dialysate Bath Calcium Calcium 2.5 mEq/L In-Center Hemodialysis TreatmentSeptember 09, 2024 Observation Value Target Weight 93 kg Dialysate Flow Rate 800 mL/min Blood Flow Rate 400 mL/min Treatment Time 225 min(total) Max UF Rate 13 mL/kg/hr Base Sodium Dialysate Base Sodium 138 mE q/L dialysate_temp 37 C BiCarb Dialysate BiCarbonate 34 mEq/L Access Concurrent No Arterial Access [facility] (CVC) (Chest (Right)) Venous Access [facility] (CVC) (Chest (Right)) Dialyzer Nipro Elisio 15H 126 4 [email or web address] Dialysate Bath Potassium Potassium 2 mEq /L Dialysate Bath Calcium Calcium 2.5 mEq/L Results Adequacy Description Draw Date Result/Unit Status Ref Range Result Comments Std Renal KT/V 2024-10-13 18:49:02 N/A F WEIGHT (KG) 2024-10-13 18:49:02 92.5 kg F LENGTH OF DIALYSIS 2024-10-13 18:49:02 115 min F Residual kt/v 2024-10-13 18:49:02 F BLOOD FLOW-QWB 2024-10-13 18:49:02 342 F URR% 2024-10-13 18:49:02 49 % F Dialyzer DO 2024-10-13 18:49:02 1264 Calc F KT/V PRESCRIBED 2024-10-13 18:49:02 0.86 F DIALYZER FLOW-QD 2024-10-13 18:49:02 803 mL/min F AMPUTATE FACTOR 2024-10-13 18:49:02 0 F Total Kt/V 2024-10-13 18:49:02 0.73 F eKt/V 2024-10-13 18:49:02 0.58 F stdKt/V (DIAL) 2024-10-13 18:49:02 N/A F TBW (Diez) 2024-10-13 18:49:02 47.34 Liters F TOTAL HOURS/WEEK DIALYSIS 2024-10-13 18:49:02 10 hrs F VM (KT/V MEAN VOL) 2024-10-13 18:49:02 43.5 F PRESCRIBED DAYS/WEEK 2024-10-13 18:49:02 3 Day/Wk F BSA SERENITY 2024-10-13 18:49:02 2.04 sq m F PATIENT AGE 2024-10-13 18:49:02 49 Years F VT (KT/V TX VOL) 2024-10-13 18:49:02 42.5 L F nPCR 2024-10-13 18:49:02 0.88 G/KG/D F stdKT/V Total 2024-10-13 18:49:02 N/A F spKt/V 2024-10-13 18:49:02 0.73 F HEIGHT IN INCHES 2024-10-13 18:49:02 67 Inches F WEIGHT - PRE DAY 1 2024-10-13 18:49:02 94.2 kg F WEIGHT - POST DAY 1 2024-10-13 18:49:02 93.6 kg F CURRENT KRU 2024-10-13 18:49:02 F Urea nitrogen [Mass/volume] in Serum or Plasma 2024-10-13 18:47:22 71 mg/dL F 9.0-23.0 Creatinine [Mass/volume] in Serum or Plasma 2024-10-13 18:47:22 10.35 mg/dL F 0.7-1.3 Urea nitrogen [Mass/volume] in Serum or Plasma --post dialysis 2024-10-13 13:02:17 36 mg/dL F 9.0-23.0 URR% 2024-09-11 01:15:46 69 % F stdKt/V (DIAL) 2024-09-11 01:15:46 N/A F Dialyzer DO 2024-09-11 01:15:46 1264 Calc F BSA SERENITY 2024-09-11 01:15:46 2.03 sq m F BLOOD FLOW-QWB 2024-09-11 01:15:46 372 F LENGTH OF DIALYSIS 2024-09-11 01:15:46 212 min F AMPUTATE FACTOR 2024-09-11 01:15:46 0 F stdKT/V Total 2024-09-11 01:15:46 N/A F [facility] 2024-09-11 01:15:46 F PATIENT AGE 2024-09-11 01:15:46 49 Years F KT/V PRESCRIBED 2024-09-11 01:15:46 1.6 F Residual kt/v 2024-09-11 01:15:46 F WEIGHT (KG) 2024-09-11 01:15:46 92 kg F Total Kt/V 2024-09-11 01:15:46 1.32 F HEIGHT IN INCHES 2024-09-11 01:15:46 67 Inches F VT (KT/V TX VOL) 2024-09-11 01:15:46 45.5 L F VM (KT/V MEAN VOL) 2024-09-11 01:15:46 43.8 F TBW (Diez) 2024-09-11 01:15:46 47.31 Liters F spKt/V 2024-09-11 01:15:46 1.32 F nPCR 2024-09-11 01:15:46 0.76 G/KG/D F Std Renal KT/V 2024-09-11 01:15:46 N/A F WEIGHT - PRE DAY 1 2024-09-11 01:15:46 95.9 kg F PRESCRIBED DAYS/WEEK 2024-09-11 01:15:46 3 Day/Wk F eKt/V 2024-09-11 01:15:46 1.13 F DIALYZER FLOW-QD 2024-09-11 01:15:46 806 mL/min F WEIGHT - POST DAY 1 2024-09-11 01:15:46 93.5 kg F TOTAL HOURS/WEEK DIALYSIS 2024-09-11 01:15:46 7 hrs F PATIENT AGE 2024-09-11 01:15:46 49 Years F URR% 2024-09-11 01:15:46 69 % F HEIGHT IN INCHES 2024-09-11 01:15:46 67 Inches F BSA SERENITY 2024-09-11 01:15:46 2.03 sq m F LENGTH OF DIALYSIS 2024-09-11 01:15:46 212 min F stdKT/V Total 2024-09-11 01:15:46 N/A F KT/V PRESCRIBED 2024-09-11 01:15:46 1.6 F CURRENT KRU 2024-09-11 01:15:46 F Unable to calculate: Pre BUN lab result is unknown WEIGHT (KG) 2024-09-11 01:15:46 92 kg F BLOOD FLOW-QWB 2024-09-11 01:15:46 372 F Residual kt/v 2024-09-11 01:15:46 F Unable to calculate: Pre BUN lab result is unknown stdKt/V (DIAL) 2024-09-11 01:15:46 N/A F Dialyzer DO 2024-09-11 01:15:46 1264 Calc F AMPUTATE FACTOR 2024-09-11 01:15:46 0 F WEIGHT - PRE DAY 1 2024-09-11 01:15:46 95.9 kg F PRESCRIBED DAYS/WEEK 2024-09-11 01:15:46 3 Day/Wk F VT (KT/V TX VOL) 2024-09-11 01:15:46 45.5 L F VM (KT/V MEAN VOL) 2024-09-11 01:15:46 43.8 F Std Renal KT/V 2024-09-11 01:15:46 N/A F Total Kt/V 2024-09-11 01:15:46 1.32 F spKt/V 2024-09-11 01:15:46 1.32 F TBW (Diez) 2024-09-11 01:15:46 47.31 Liters F WEIGHT - POST DAY 1 2024-09-11 01:15:46 93.5 kg F nPCR 2024-09-11 01:15:46 0.76 G/KG/D F eKt/V 2024-09-11 01:15:46 1.13 F DIALYZER FLOW-QD 2024-09-11 01:15:46 806 mL/min F TOTAL HOURS/WEEK DIALYSIS 2024-09-11 01:15:46 7 hrs F Creatinine [Mass/volume] in Serum or Plasma 2024-09-11 01:14:13 12.66 mg/dL F 0.7-1.3 Urea nitrogen [Mass/volume] in Serum or Plasma 2024-09-11 01:14:13 68 mg/dL F 9.0-23.0 Creatinine [Mass/volume] in Serum or Plasma 2024-09-11 01:14:13 12.66 mg/dL F 0.7-1.3 Urea nitrogen [Mass/volume] in Serum or Plasma 2024-09-11 01:14:13 68 mg/dL F 9.0-23.0 Urea nitrogen [Mass/volume] in Serum or Plasma --post dialysis 2024-09-10 16:21:11 21 mg/dL F 9.0-23.0 Urea nitrogen [Mass/volume] in Serum or Plasma --post dialysis 2024-09-10 16:21:11 21 mg/dL F 9.0-23.0 spKt/V 2024-08-30 22:51:23 1.29 F WEIGHT - POST DAY 1 2024-08-30 22:51:23 92.8 kg F AMPUTATE FACTOR 2024-08-30 22:51:23 0 F PRESCRIBED DAYS/WEEK 2024-08-30 22:51:23 3 Day/Wk F Total Kt/V 2024-08-30 22:51:23 1.29 F stdKt/V (DIAL) 2024-08-30 22:51:23 N/A F stdKT/V Total 2024-08-30 22:51:23 N/A F Residual kt/v 2024-08-30 22:51:23 F Unable to calculate: Post BUN lab result is unknown HEIGHT IN INCHES 2024-08-30 22:51:23 67 Inches F Dialyzer DO 2024-08-30 22:51:23 1264 Calc F eKt/V 2024-08-30 22:51:23 1.1 F TBW (Diez) 2024-08-30 22:51:23 47.07 Liters F VT (KT/V TX VOL) 2024-08-30 22:51:23 43.8 L F nPCR 2024-08-30 22:51:23 0.93 G/KG/D F DIALYZER FLOW-QD 2024-08-30 22:51:23 807 mL/min F URR% 2024-08-30 22:51:23 68 % F WEIGHT (KG) 2024-08-30 22:51:23 92 kg F BLOOD FLOW-QWB 2024-08-30 22:51:23 378 F LENGTH OF DIALYSIS 2024-08-30 22:51:23 198 min F TOTAL HOURS/WEEK DIALYSIS 2024-08-30 22:51:23 11 hrs F Std Renal KT/V 2024-08-30 22:51:23 N/A F KT/V PRESCRIBED 2024-08-30 22:51:23 1.49 F BSA SERENITY 2024-08-30 22:51:23 2.03 sq m F VM (KT/V MEAN VOL) 2024-08-30 22:51:23 43.2 F WEIGHT - PRE DAY 1 2024-08-30 22:51:23 94.7 kg F CURRENT KRU 2024-08-30 22:51:23 F Unable to calculate: Post BUN lab result is unknown PATIENT AGE 2024-08-30 22:51:23 49 Years F stdKt/V (DIAL) 2024-08-30 22:51:23 N/A F spKt/V 2024-08-30 22:51:23 1.29 F eKt/V 2024-08-30 22:51:23 1.1 F stdKT/V Total 2024-08-30 22:51:23 N/A F PRESCRIBED DAYS/WEEK 2024-08-30 22:51:23 3 Day/Wk F HEIGHT IN INCHES 2024-08-30 22:51:23 67 Inches F AMPUTATE FACTOR 2024-08-30 22:51:23 0 F Residual kt/v 2024-08-30 22:51:23 F TBW (Diez) 2024-08-30 22:51:23 47.07 Liters F Total Kt/V 2024-08-30 22:51:23 1.29 F URR% 2024-08-30 22:51:23 68 % F LENGTH OF DIALYSIS 2024-08-30 22:51:23 198 min F KT/V PRESCRIBED 2024-08-30 22:51:23 1.49 F Std Renal KT/V 2024-08-30 22:51:23 N/A F nPCR 2024-08-30 22:51:23 0.93 G/KG/D F VT (KT/V TX VOL) 2024-08-30 22:51:23 43.8 L F Dialyzer DO 2024-08-30 22:51:23 1264 Calc F WEIGHT (KG) 2024-08-30 22:51:23 92 kg F TOTAL HOURS/WEEK DIALYSIS 2024-08-30 22:51:23 11 hrs F DIALYZER FLOW-QD 2024-08-30 22:51:23 807 mL/min F BLOOD FLOW-QWB 2024-08-30 22:51:23 378 F PATIENT AGE 2024-08-30 22:51:23 49 Years F VM (KT/V MEAN VOL) 2024-08-30 22:51:23 43.2 F BSA SERENITY 2024-08-30 22:51:23 2.03 sq m F WEIGHT - PRE DAY 1 2024-08-30 22:51:23 94.7 kg F CURRENT KRU 2024-08-30 22:51:23 F WEIGHT - POST DAY 1 2024-08-30 22:51:23 92.8 kg F Urea nitrogen [Mass/volume] in Serum or Plasma --post dialysis 2024-08-30 22:49:14 20 mg/dL F 9.0-23.0 Urea nitrogen [Mass/volume] in Serum or Plasma --post dialysis 2024-08-30 22:49:14 20 mg/dL F 9.0-23.0 Urea nitrogen [Mass/volume] in Serum or Plasma 2024-08-30 15:38:23 63 mg/dL F 9.0-23.0 Urea nitrogen [Mass/volume] in Serum or Plasma 2024-08-30 15:38:23 63 mg/dL F 9.0-23.0 LENGTH OF DIALYSIS 2024-08-03 04:10:10 226 min F WEIGHT (KG) 2024-08-03 04:10:10 92 kg F VT (KT/V TX VOL) 2024-08-03 04:10:10 41.8 L F WEIGHT - POST DAY 1 2024-08-03 04:10:10 91.8 kg F TBW (Diez) 2024-08-03 04:10:10 46.73 Liters F Residual kt/v 2024-08-03 04:10:10 F Unable to calculate: Post BUN lab result is unknown HEIGHT IN INCHES 2024-08-03 04:10:10 67 Inches F WEIGHT - PRE DAY 1 2024-08-03 04:10:10 93.3 kg F PRESCRIBED DAYS/WEEK 2024-08-03 04:10:10 3 Day/Wk F AMPUTATE FACTOR 2024-08-03 04:10:10 0 F nPCR 2024-08-03 04:10:10 1.03 G/KG/D F DIALYZER FLOW-QD 2024-08-03 04:10:10 789 mL/min F eKt/V 2024-08-03 04:10:10 1.32 F spKt/V 2024-08-03 04:10:10 1.54 F stdKt/V (DIAL) 2024-08-03 04:10:10 N/A F URR% 2024-08-03 04:10:10 75 % F BSA SERENITY 2024-08-03 04:10:10 2.03 sq m F CURRENT KRU 2024-08-03 04:10:10 F Unable to calculate: Post BUN lab result is unknown BLOOD FLOW-QWB 2024-08-03 04:10:10 378 F VM (KT/V MEAN VOL) 2024-08-03 04:10:10 43 F KT/V PRESCRIBED 2024-08-03 04:10:10 1.7 F Std Renal KT/V 2024-08-03 04:10:10 N/A F Total Kt/V 2024-08-03 04:10:10 1.54 F PATIENT AGE 2024-08-03 04:10:10 49 Years F Dialyzer DO 2024-08-03 04:10:10 1264 Calc F TOTAL HOURS/WEEK DIALYSIS 2024-08-03 04:10:10 11 hrs F stdKT/V Total 2024-08-03 04:10:10 N/A F TBW (Diez) 2024-08-03 04:10:10 46.73 Liters F eKt/V 2024-08-03 04:10:10 1.32 F HEIGHT IN INCHES 2024-08-03 04:10:10 67 Inches F WEIGHT (KG) 2024-08-03 04:10:10 92 kg F Residual kt/v 2024-08-03 04:10:10 F LENGTH OF DIALYSIS 2024-08-03 04:10:10 226 min F PRESCRIBED DAYS/WEEK 2024-08-03 04:10:10 3 Day/Wk F VT (KT/V TX VOL) 2024-08-03 04:10:10 41.8 L F WEIGHT - PRE DAY 1 2024-08-03 04:10:10 93.3 kg F AMPUTATE FACTOR 2024-08-03 04:10:10 0 F WEIGHT - POST DAY 1 2024-08-03 04:10:10 91.8 kg F nPCR 2024-08-03 04:10:10 1.03 G/KG/D F VM (KT/V MEAN VOL) 2024-08-03 04:10:10 43 F BSA SERENITY 2024-08-03 04:10:10 2.03 sq m F stdKt/V (DIAL) 2024-08-03 04:10:10 N/A F BLOOD FLOW-QWB 2024-08-03 04:10:10 378 F spKt/V 2024-08-03 04:10:10 1.54 F KT/V PRESCRIBED 2024-08-03 04:10:10 1.7 F CURRENT KRU 2024-08-03 04:10:10 F Std Renal KT/V 2024-08-03 04:10:10 N/A F DIALYZER FLOW-QD 2024-08-03 04:10:10 789 mL/min F URR% 2024-08-03 04:10:10 75 % F PATIENT AGE 2024-08-03 04:10:10 49 Years F TOTAL HOURS/WEEK DIALYSIS 2024-08-03 04:10:10 11 hrs F Dialyzer DO 2024-08-03 04:10:10 1264 Calc F stdKT/V Total 2024-08-03 04:10:10 N/A F Total Kt/V 2024-08-03 04:10:10 1.54 F Urea nitrogen [Mass/volume] in Serum or Plasma --post dialysis 2024-08-03 03:30:14 17 mg/dL F 9.0-23.0 Urea nitrogen [Mass/volume] in Serum or Plasma --post dialysis 2024-08-03 03:30:14 17 mg/dL F 9.0-23.0 Creatinine [Mass/volume] in Serum or Plasma 2024-08-02 20:30:21 9.65 mg/dL F 0.7-1.3 Urea nitrogen [Mass/volume] in Serum or Plasma 2024-08-02 20:30:21 67 mg/dL F 9.0-23.0 Creatinine [Mass/volume] in Serum or Plasma 2024-08-02 20:30:21 9.65 mg/dL F 0.7-1.3 Urea nitrogen [Mass/volume] in Serum or Plasma 2024-08-02 20:30:21 67 mg/dL F 9.0-23.0 URR% 2024-07-29 18:48:07 F 65.0-100.0 Unable to Calculate. Urea nitrogen [Mass/volume] in Serum or Plasma --post dialysis 2024-07-29 18:29:20 F Canceled - Speci men not received 5 days past draw date Urea nitrogen [Mass/volume] in Serum or Plasma 2024-07-29 18:29:20 F Canceled - Speci men not received 5 days past draw date Creatinine [Mass/volume] in Serum or Plasma 2024-07-29 18:29:20 F Canceled - Speci men not received 5 days past draw date PRESCRIBED DAYS/WEEK 2024-07-24 03:38:37 3 Day/Wk F URR% 2024-07-24 03:38:37 68 % F HEIGHT IN INCHES 2024-07-24 03:38:37 67 Inches F Dialyzer DO 2024-07-24 03:38:37 1264 Calc F LENGTH OF DIALYSIS 2024-07-24 03:38:37 226 min F BLOOD FLOW-QWB 2024-07-24 03:38:37 380 F spKt/V 2024-07-24 03:38:37 1.32 F VT (KT/V TX VOL) 2024-07-24 03:38:37 47.1 L F BSA SERENITY 2024-07-24 03:38:37 2.03 sq m F PATIENT AGE 2024-07-24 03:38:37 49 Years F WEIGHT (KG) 2024-07-24 03:38:37 92 kg F stdKT/V Total 2024-07-24 03:38:37 N/A F TOTAL HOURS/WEEK DIALYSIS 2024-07-24 03:38:37 11 hrs F VM (KT/V MEAN VOL) 2024-07-24 03:38:37 43.4 F Std Renal KT/V 2024-07-24 03:38:37 N/A F Residual kt/v 2024-07-24 03:38:37 F Unable to calculate: Pre BUN lab result is unknown eKt/V 2024-07-24 03:38:37 1.14 F DIALYZER FLOW-QD 2024-07-24 03:38:37 609 mL/min F KT/V PRESCRIBED 2024-07-24 03:38:37 1.7 F Total Kt/V 2024-07-24 03:38:37 1.32 F AMPUTATE FACTOR 2024-07-24 03:38:37 0 F TBW (Diez) 2024-07-24 03:38:37 46.8 Liters F nPCR 2024-07-24 03:38:37 1.25 G/KG/D F WEIGHT - POST DAY 1 2024-07-24 03:38:37 92 kg F stdKt/V (DIAL) 2024-07-24 03:38:37 N/A F WEIGHT - PRE DAY 1 2024-07-24 03:38:37 94.1 kg F CURRENT KRU 2024-07-24 03:38:37 F Unable to calculate: Pre BUN lab result is unknown Dialyzer DO 2024-07-24 03:38:37 1264 Calc F BLOOD FLOW-QWB 2024-07-24 03:38:37 380 F URR% 2024-07-24 03:38:37 68 % F HEIGHT IN INCHES 2024-07-24 03:38:37 67 Inches F PRESCRIBED DAYS/WEEK 2024-07-24 03:38:37 3 Day/Wk F BSA SERENITY 2024-07-24 03:38:37 2.03 sq m F spKt/V 2024-07-24 03:38:37 1.32 F LENGTH OF DIALYSIS 2024-07-24 03:38:37 226 min F VT (KT/V TX VOL) 2024-07-24 03:38:37 47.1 L F Residual kt/v 2024-07-24 03:38:37 F Std Renal KT/V 2024-07-24 03:38:37 N/A F KT/V PRESCRIBED 2024-07-24 03:38:37 1.7 F DIALYZER FLOW-QD 2024-07-24 03:38:37 609 mL/min F AMPUTATE FACTOR 2024-07-24 03:38:37 0 F PATIENT AGE 2024-07-24 03:38:37 49 Years F Total Kt/V 2024-07-24 03:38:37 1.32 F WEIGHT (KG) 2024-07-24 03:38:37 92 kg F TOTAL HOURS/WEEK DIALYSIS 2024-07-24 03:38:37 11 hrs F stdKT/V Total 2024-07-24 03:38:37 N/A F VM (KT/V MEAN VOL) 2024-07-24 03:38:37 43.4 F WEIGHT - PRE DAY 1 2024-07-24 03:38:37 94.1 kg F eKt/V 2024-07-24 03:38:37 1.14 F TBW (Diez) 2024-07-24 03:38:37 46.8 Liters F nPCR 2024-07-24 03:38:37 1.25 G/KG/D F stdKt/V (DIAL) 2024-07-24 03:38:37 N/A F WEIGHT - POST DAY 1 2024-07-24 03:38:37 92 kg F CURRENT KRU 2024-07-24 03:38:37 F Urea nitrogen [Mass/volume] in Serum or Plasma 2024-07-24 03:34:27 65 mg/dL F 9.0-23.0 Urea nitrogen [Mass/volume] in Serum or Plasma 2024-07-24 03:34:27 65 mg/dL F 9.0-23.0 Urea nitrogen [Mass/volume] in Serum or Plasma --post dialysis 2024-07-24 01:32:58 21 mg/dL F 9.0-23.0 Urea nitrogen [Mass/volume] in Serum or Plasma --post dialysis 2024-07-24 01:32:58 21 mg/dL F 9.0-23.0 HEIGHT IN INCHES 2024-07-11 18:52:56 67 Inches F PATIENT AGE 2024-07-11 18:52:56 49 Years F WEIGHT (KG) 2024-07-11 18:52:56 92 kg F AMPUTATE FACTOR 2024-07-11 18:52:56 0 F Creatinine [Mass/volume] in Serum or Plasma 2024-06-10 01:15:23 8.4 mg/dL F 0.7-1.3 Creatinine [Mass/volume] in Serum or Plasma 2024-05-13 21:33:13 8.99 mg/dL F 0.7-1.3 Creatinine [Mass/volume] in Serum or Plasma 2024-04-13 15:18:23 11.64 mg/dL F 0.7-1.3 HEIGHT IN INCHES 2024-04-11 20:26:55 67 Inches F WEIGHT (KG) 2024-04-11 20:26:55 86 kg F AMPUTATE FACTOR 2024-04-11 20:26:55 0 F PATIENT AGE 2024-04-11 20:26:55 48 Years F WEIGHT - PRE DAY 1 2024-03-19 19:07:12 89.5 kg F KT/V PRESCRIBED 2024-03-19 19:07:12 1.79 F nPCR 2024-03-19 19:07:12 0.41 G/KG/D F BSA SERENITY 2024-03-19 19:07:12 1.97 sq m F TOTAL HOURS/WEEK DIALYSIS 2024-03-19 19:07:12 3 hrs F VM (KT/V MEAN VOL) 2024-03-19 19:07:12 42.8 F TBW (Diez) 2024-03-19 19:07:12 45.22 Liters F PATIENT AGE 2024-03-19 19:07:12 48 Years F AMPUTATE FACTOR 2024-03-19 19:07:12 0 F Std Renal KT/V 2024-03-19 19:07:12 N/A F Dialyzer DO 2024-03-19 19:07:12 1264 Calc F URR% 2024-03-19 19:07:12 74 % F WEIGHT - POST DAY 1 2024-03-19 19:07:12 87 kg F PRESCRIBED DAYS/WEEK 2024-03-19 19:07:12 3 Day/Wk F BLOOD FLOW-QWB 2024-03-19 19:07:12 382 F HEIGHT IN INCHES 2024-03-19 19:07:12 67 Inches F LENGTH OF DIALYSIS 2024-03-19 19:07:12 226 min F VT (KT/V TX VOL) 2024-03-19 19:07:12 43.9 L F spKt/V 2024-03-19 19:07:12 1.48 F Residual kt/v 2024-03-19 19:07:12 F stdKT/V Total 2024-03-19 19:07:12 N/A F Total Kt/V 2024-03-19 19:07:12 1.48 F DIALYZER FLOW-QD 2024-03-19 19:07:12 806 mL/min F stdKt/V (DIAL) 2024-03-19 19:07:12 N/A F CURRENT KRU 2024-03-19 19:07:12 F WEIGHT (KG) 2024-03-19 19:07:12 85 kg F eKt/V 2024-03-19 19:07:12 1.27 F Urea nitrogen [Mass/volume] in Serum or Plasma --post dialysis 2024-03-19 19:05:23 13 mg/dL F 9.0-23.0 Urea nitrogen [Mass/volume] in Serum or Plasma 2024-03-19 16:53:15 50 mg/dL F 9.0-23.0 PRESCRIBED DAYS/WEEK 2024-03-11 05:38:03 3 Day/Wk F [facility] 2024-03-11 05:38:03 F DIALYZER FLOW-QD 2024-03-11 05:38:03 800 mL/min F BLOOD FLOW-QWB 2024-03-11 05:38:03 375 F nPCR 2024-03-11 05:38:03 1.04 G/KG/D F Residual kt/v 2024-03-11 05:38:03 F WEIGHT (KG) 2024-03-11 05:38:03 85 kg F Std Renal KT/V 2024-03-11 05:38:03 N/A F eKt/V 2024-03-11 05:38:03 0.93 F TOTAL HOURS/WEEK DIALYSIS 2024-03-11 05:38:03 9 hrs F KT/V PRESCRIBED 2024-03-11 05:38:03 1.43 F Dialyzer DO 2024-03-11 05:38:03 1264 Calc F stdKT/V Total 2024-03-11 05:38:03 N/A F URR% 2024-03-11 05:38:03 61 % F BSA SERENITY 2024-03-11 05:38:03 1.97 sq m F Total Kt/V 2024-03-11 05:38:03 1.1 F VM (KT/V MEAN VOL) 2024-03-11 05:38:03 42.4 F TBW (Diez) 2024-03-11 05:38:03 44.71 Liters F stdKt/V (DIAL) 2024-03-11 05:38:03 N/A F VT (KT/V TX VOL) 2024-03-11 05:38:03 46.4 L F LENGTH OF DIALYSIS 2024-03-11 05:38:03 180 min F HEIGHT IN INCHES 2024-03-11 05:38:03 67 Inches F AMPUTATE FACTOR 2024-03-11 05:38:03 0 F WEIGHT - PRE DAY 1 2024-03-11 05:38:03 88.5 kg F WEIGHT - POST DAY 1 2024-03-11 05:38:03 85.5 kg F spKt/V 2024-03-11 05:38:03 1.1 F PATIENT AGE 2024-03-11 05:38:03 48 Years F Creatinine [Mass/volume] in Serum or Plasma 2024-03-11 05:36:15 8.68 mg/dL F 0.7-1.3 Urea nitrogen [Mass/volume] in Serum or Plasma 2024-03-11 05:36:15 64 mg/dL F 9.0-23.0 Urea nitrogen [Mass/volume] in Serum or Plasma --post dialysis 2024-03-11 00:09:22 25 mg/dL F 9.0-23.0 WEIGHT - POST DAY 1 2024-02-11 18:10:18 84.5 kg F TBW (Diez) 2024-02-11 18:10:18 F Unable to calculate: Post BUN lab result is unknown LENGTH OF DIALYSIS 2024-02-11 18:10:18 229 min F Total Kt/V 2024-02-11 18:10:18 F Unable to calculate: Post BUN lab result is unknown nPCR 2024-02-11 18:10:18 F Unable to calculate: Post BUN lab result is unknown stdKt/V (DIAL) 2024-02-11 18:10:18 F Unable to calculate: Post BUN lab result is unknown Residual kt/v 2024-02-11 18:10:18 F Unable to calculate: Post BUN lab result is unknown WEIGHT - PRE DAY 1 2024-02-11 18:10:18 87.5 kg F PATIENT AGE 2024-02-11 18:10:18 48 Years F Std Renal KT/V 2024-02-11 18:10:18 F Unable to calculate: Post BUN lab result is unknown spKt/V 2024-02-11 18:10:18 F Unable to calculate: Post BUN lab result is unknown DIALYZER FLOW-QD 2024-02-11 18:10:18 796 mL/min F URR% 2024-02-11 18:10:18 F Unable to calculate: Post BUN lab result is unknown CURRENT KRU 2024-02-11 18:10:18 F Unable to calculate: Post BUN lab result is unknown HEIGHT IN INCHES 2024-02-11 18:10:18 67 Inches F VT (KT/V TX VOL) 2024-02-11 18:10:18 F Unable to calculate: Post BUN lab result is unknown KT/V PRESCRIBED 2024-02-11 18:10:18 F Unable to calculate: Post BUN lab result is unknown BLOOD FLOW-QWB 2024-02-11 18:10:18 382 F BSA SERENITY 2024-02-11 18:10:18 F Unable to calculate: Post BUN lab result is unknown PRESCRIBED DAYS/WEEK 2024-02-11 18:10:18 3 Day/Wk F TOTAL HOURS/WEEK DIALYSIS 2024-02-11 18:10:18 7 hrs F VM (KT/V MEAN VOL) 2024-02-11 18:10:18 F Unable to calculate: Post BUN lab result is unknown WEIGHT (KG) 2024-02-11 18:10:18 86 kg F AMPUTATE FACTOR 2024-02-11 18:10:18 0 F stdKT/V Total 2024-02-11 18:10:18 F Unable to calculate: Post BUN lab result is unknown Dialyzer DO 2024-02-11 18:10:18 1264 Calc F eKt/V 2024-02-11 18:10:18 F Unable to calculate: Post BUN lab result is unknown Creatinine [Mass/volume] in Serum or Plasma 2024-02-11 18:08:26 11.04 mg/dL F 0.7-1.3 Urea nitrogen [Mass/volume] in Serum or Plasma 2024-02-11 18:08:26 85 mg/dL F 9.0-23.0 VT (KT/V TX VOL) 2024-01-16 19:12:22 69.2 L F TOTAL HOURS/WEEK DIALYSIS 2024-01-16 19:12:22 5 hrs F WEIGHT (KG) 2024-01-16 19:12:22 86 kg F DIALYZER FLOW-QD 2024-01-16 19:12:22 610 mL/min F HEIGHT IN INCHES 2024-01-16 19:12:22 67 Inches F spKt/V 2024-01-16 19:12:22 0.63 F BLOOD FLOW-QWB 2024-01-16 19:12:22 357 F PATIENT AGE 2024-01-16 19:12:22 48 Years F CURRENT KRU 2024-01-16 19:12:22 F Residual kt/v 2024-01-16 19:12:22 F PRESCRIBED DAYS/WEEK 2024-01-16 19:12:22 3 Day/Wk F Total Kt/V 2024-01-16 19:12:22 0.63 F LENGTH OF DIALYSIS 2024-01-16 19:12:22 163 min F VM (KT/V MEAN VOL) 2024-01-16 19:12:22 39 F AMPUTATE FACTOR 2024-01-16 19:12:22 0 F TBW (Diez) 2024-01-16 19:12:22 45.52 Liters F KT/V PRESCRIBED 2024-01-16 19:12:22 1.28 F WEIGHT - POST DAY 1 2024-01-16 19:12:22 87.9 kg F Dialyzer DO 2024-01-16 19:12:22 1264 Calc F URR% 2024-01-16 19:12:22 42 % F nPCR 2024-01-16 19:12:22 0.72 G/KG/D F stdKt/V (DIAL) 2024-01-16 19:12:22 N/A F WEIGHT - PRE DAY 1 2024-01-16 19:12:22 91 kg F stdKT/V Total 2024-01-16 19:12:22 N/A F BSA SERENITY 2024-01-16 19:12:22 1.98 sq m F Std Renal KT/V 2024-01-16 19:12:22 N/A F eKt/V 2024-01-16 19:12:22 0.55 F Urea nitrogen [Mass/volume] in Serum or Plasma --post dialysis 2024-01-16 13:04:24 48 mg/dL F 9.0-23.0 Creatinine [Mass/volume] in Serum or Plasma 2024-01-15 12:34:18 8.12 mg/dL F 0.7-1.3 Urea nitrogen [Mass/volume] in Serum or Plasma 2024-01-15 12:34:18 83 mg/dL F 9.0-23.0 Creatinine [Mass/volume] in Serum or Plasma 2023-12-11 03:50:17 9.64 mg/dL F 0.7-1.3 Creatinine [Mass/volume] in Serum or Plasma 2023-11-12 23:20:43 7.97 mg/dL F 0.7-1.3 BSA SERENITY 2023-10-17 18:45:21 1.91 sq m F Residual kt/v 2023-10-17 18:45:21 F LENGTH OF DIALYSIS 2023-10-17 18:45:21 224 min F DIALYZER FLOW-QD 2023-10-17 18:45:21 807 mL/min F PRESCRIBED DAYS/WEEK 2023-10-17 18:45:21 3 Day/Wk F HEIGHT IN INCHES 2023-10-17 18:45:21 67 Inches F WEIGHT (KG) 2023-10-17 18:45:21 79 kg F spKt/V 2023-10-17 18:45:21 0.87 F Std Renal KT/V 2023-10-17 18:45:21 N/A F CURRENT KRU 2023-10-17 18:45:21 F KT/V PRESCRIBED 2023-10-17 18:45:21 1.86 F Total Kt/V 2023-10-17 18:45:21 0.87 F stdKT/V Total 2023-10-17 18:45:21 N/A F VT (KT/V TX VOL) 2023-10-17 18:45:21 75.8 L F PATIENT AGE 2023-10-17 18:45:21 48 Years F stdKt/V (DIAL) 2023-10-17 18:45:21 N/A F eKt/V 2023-10-17 18:45:21 0.77 F AMPUTATE FACTOR 2023-10-17 18:45:21 0 F WEIGHT - POST DAY 1 2023-10-17 18:45:21 79.4 kg F nPCR 2023-10-17 18:45:21 0.88 G/KG/D F BLOOD FLOW-QWB 2023-10-17 18:45:21 400 F TBW (Rg) 2023-10-17 18:45:21 42.66 Liters F TOTAL HOURS/WEEK DIALYSIS 2023-10-17 18:45:21 9 hrs F WEIGHT - PRE DAY 1 2023-10-17 18:45:21 81.4 kg F VM (KT/V MEAN VOL) 2023-10-17 18:45:21 39.9 F Dialyzer DO 2023-10-17 18:45:21 1264 Calc F URR% 2023-10-17 18:45:20 53 % F Urea nitrogen [Mass/volume] in Serum or Plasma 2023-10-17 18:43:50 58 mg/dL F 9.0-23.0 Urea nitrogen [Mass/volume] in Serum or Plasma --post dialysis 2023-10-17 18:30:46 27 mg/dL F 9.0-23.0 Dialyzer DO 2023-09-07 15:28:58 1264 Calc F AMPUTATE FACTOR 2023-09-07 15:28:58 0 F PATIENT AGE 2023-09-07 15:28:58 48 Years F Std Renal KT/V 2023-09-07 15:28:58 N/A F CURRENT KRU 2023-09-07 15:28:58 F eKt/V 2023-09-07 15:28:58 1.14 F WEIGHT (KG) 2023-09-07 15:28:58 83 kg F DIALYZER FLOW-QD 2023-09-07 15:28:58 800 mL/min F VM (KT/V MEAN VOL) 2023-09-07 15:28:58 40.8 F KT/V PRESCRIBED 2023-09-07 15:28:58 1.74 F WEIGHT - POST DAY 1 2023-09-07 15:28:58 80.1 kg F nPCR 2023-09-07 15:28:58 0.45 G/KG/D F TBW (Rg) 2023-09-07 15:28:58 42.9 Liters F Total Kt/V 2023-09-07 15:28:58 1.33 F spKt/V 2023-09-07 15:28:58 1.33 F WEIGHT - PRE DAY 1 2023-09-07 15:28:58 82.4 kg F BSA SERENITY 2023-09-07 15:28:58 1.95 sq m F stdKt/V (DIAL) 2023-09-07 15:28:58 N/A F VT (KT/V TX VOL) 2023-09-07 15:28:58 47.9 L F LENGTH OF DIALYSIS 2023-09-07 15:28:58 216 min F Residual kt/v 2023-09-07 15:28:58 F PRESCRIBED DAYS/WEEK 2023-09-07 15:28:58 3 Day/Wk F stdKT/V Total 2023-09-07 15:28:58 N/A F TOTAL HOURS/WEEK DIALYSIS 2023-09-07 15:28:58 3 hrs F BLOOD FLOW-QWB 2023-09-07 15:28:58 400 F HEIGHT IN INCHES 2023-09-07 15:28:58 67 Inches F URR% 2023-09-07 15:28:57 70 % F Urea nitrogen [Mass/volume] in Serum or Plasma 2023-09-06 00:09:33 61 mg/dL F 9.0-23.0 Urea nitrogen [Mass/volume] in Serum or Plasma --post dialysis 2023-09-05 21:12:35 18 mg/dL F 9.0-23.0 KT/V PRESCRIBED 2022-09-20 23:42:57 1.78 F LENGTH OF DIALYSIS 2022-09-20 23:42:57 222 min F DIALYZER FLOW-QD 2022-09-20 23:42:57 800 mL/min F nPCR 2022-09-20 23:42:57 0.53 G/KG/D F URR% 2022-09-20 23:42:57 71 % F BSA SERENITY 2022-09-20 23:42:57 1.94 sq m F WEIGHT - POST DAY 1 2022-09-20 23:42:57 86.5 kg F spKt/V 2022-09-20 23:42:57 1.36 F Residual kt/v 2022-09-20 23:42:57 F PATIENT AGE 2022-09-20 23:42:57 47 Years F Dialyzer DO 2022-09-20 23:42:57 1218 Calc F WEIGHT (KG) 2022-09-20 23:42:57 82 kg F TOTAL HOURS/WEEK DIALYSIS 2022-09-20 23:42:57 3 F eKt/V 2022-09-20 23:42:57 1.17 F BLOOD FLOW-QWB 2022-09-20 23:42:57 320 F CURRENT KRU 2022-09-20 23:42:57 F TBW (Diez) 2022-09-20 23:42:57 45.14 Liters F WEIGHT - PRE DAY 1 2022-09-20 23:42:57 89.3 kg F stdKT/V Total 2022-09-20 23:42:57 N/A F VT (KT/V TX VOL) 2022-09-20 23:42:57 41.6 L F PRESCRIBED DAYS/WEEK 2022-09-20 23:42:57 3 Day/Wk F Std Renal KT/V 2022-09-20 23:42:57 N/A F VM (KT/V MEAN VOL) 2022-09-20 23:42:57 42.1 F HEIGHT IN INCHES 2022-09-20 23:42:57 67 Inches F stdKt/V (DIAL) 2022-09-20 23:42:57 N/A F AMPUTATE FACTOR 2022-09-20 23:42:57 0 F Total Kt/V 2022-09-20 23:42:57 1.36 F Creatinine [Mass/volume] in Serum or Plasma 2022-09-20 23:41:10 10.28 mg/dL F 0.7-1.3 Urea nitrogen [Mass/volume] in Serum or Plasma 2022-09-20 23:41:10 78 mg/dL F 9.0-23.0 Urea nitrogen [Mass/volume] in Serum or Plasma --post dialysis 2022-09-20 22:01:07 23 mg/dL F 9.0-23.0 LENGTH OF DIALYSIS 2022-06-13 01:20:09 188 min F Residual kt/v 2022-06-13 01:20:09 F PRESCRIBED DAYS/WEEK 2022-06-13 01:20:09 3 Day/Wk F DIALYZER FLOW-QD 2022-06-13 01:20:09 771 mL/min F Std Renal KT/V 2022-06-13 01:20:09 N/A F URR% 2022-06-13 01:20:09 69 % F Total Kt/V 2022-06-13 01:20:09 1.31 F WEIGHT (KG) 2022-06-13 01:20:09 81 kg F HEIGHT IN INCHES 2022-06-13 01:20:09 67 Inches F WEIGHT - PRE DAY 1 2022-06-13 01:20:09 82.3 kg F stdKt/V (DIAL) 2022-06-13 01:20:09 N/A F stdKT/V Total 2022-06-13 01:20:09 N/A F TBW (Diez) 2022-06-13 01:20:09 43.56 Liters F VM (KT/V MEAN VOL) 2022-06-13 01:20:09 42 F WEIGHT - POST DAY 1 2022-06-13 01:20:09 81.8 kg F eKt/V 2022-06-13 01:20:09 1.1 F nPCR 2022-06-13 01:20:09 1.48 G/KG/D F KT/V PRESCRIBED 2022-06-13 01:20:09 1.52 F AMPUTATE FACTOR 2022-06-13 01:20:09 0 F Dialyzer DO 2022-06-13 01:20:09 1218 Calc F BLOOD FLOW-QWB 2022-06-13 01:20:09 367 F VT (KT/V TX VOL) 2022-06-13 01:20:09 39.8 L F PATIENT AGE 2022-06-13 01:20:09 47 Years F TOTAL HOURS/WEEK DIALYSIS 2022-06-13 01:20:09 9 F spKt/V 2022-06-13 01:20:09 1.31 F CURRENT KRU 2022-06-13 01:20:09 F BSA SERENITY 2022-06-13 01:20:09 1.93 sq m F Urea nitrogen [Mass/volume] in Serum or Plasma --post dialysis 2022-06-13 01:18:12 20 mg/dL F 9.0-23.0 Creatinine [Mass/volume] in Serum or Plasma 2022-06-12 22:45:13 8.11 mg/dL F 0.7-1.3 Urea nitrogen [Mass/volume] in Serum or Plasma 2022-06-12 22:45:13 64 mg/dL F 9.0-23.0 PATIENT AGE 2022-05-16 01:29:55 46 Years F eKt/V 2022-05-16 01:29:55 1.35 F TBW (Diez) 2022-05-16 01:29:55 43.56 Liters F Total Kt/V 2022-05-16 01:29:55 1.59 F PRESCRIBED DAYS/WEEK 2022-05-16 01:29:55 3 Day/Wk F AMPUTATE FACTOR 2022-05-16 01:29:55 0 F BLOOD FLOW-QWB 2022-05-16 01:29:55 375 F WEIGHT - PRE DAY 1 2022-05-16 01:29:55 83.8 kg F nPCR 2022-05-16 01:29:55 1.49 G/KG/D F DIALYZER FLOW-QD 2022-05-16 01:29:55 800 mL/min F TOTAL HOURS/WEEK DIALYSIS 2022-05-16 01:29:55 10 F HEIGHT IN INCHES 2022-05-16 01:29:55 67 Inches F LENGTH OF DIALYSIS 2022-05-16 01:29:55 224 min F VM (KT/V MEAN VOL) 2022-05-16 01:29:55 42.7 F WEIGHT - POST DAY 1 2022-05-16 01:29:55 81.5 kg F stdKt/V (DIAL) 2022-05-16 01:29:55 N/A F stdKT/V Total 2022-05-16 01:29:55 N/A F KT/V PRESCRIBED 2022-05-16 01:29:55 1.82 F spKt/V 2022-05-16 01:29:55 1.59 F WEIGHT (KG) 2022-05-16 01:29:55 80 kg F Residual kt/v 2022-05-16 01:29:55 F VT (KT/V TX VOL) 2022-05-16 01:29:55 39.9 L F Dialyzer DO 2022-05-16 01:29:55 1218 Calc F Std Renal KT/V 2022-05-16 01:29:55 N/A F URR% 2022-05-16 01:29:55 74 % F CURRENT KRU 2022-05-16 01:29:55 F BSA SERENITY 2022-05-16 01:29:55 1.92 sq m F Urea nitrogen [Mass/volume] in Serum or Plasma --post dialysis 2022-05-16 01:27:57 20 mg/dL F 9.0-23.0 Creatinine [Mass/volume] in Serum or Plasma 2022-05-15 19:24:58 9.32 mg/dL F 0.7-1.3 Urea nitrogen [Mass/volume] in Serum or Plasma 2022-05-15 19:24:58 77 mg/dL F 9.0-23.0 stdKT/V Total 2022-04-10 20:15:51 N/A F WEIGHT (KG) 2022-04-10 20:15:51 80.4 kg F AMPUTATE FACTOR 2022-04-10 20:15:51 0 F WEIGHT - POST DAY 1 2022-04-10 20:15:51 81.4 kg F nPCR 2022-04-10 20:15:51 0.79 G/KG/D F BLOOD FLOW-QWB 2022-04-10 20:15:51 329 F LENGTH OF DIALYSIS 2022-04-10 20:15:51 187 min F stdKt/V (DIAL) 2022-04-10 20:15:51 N/A F PRESCRIBED DAYS/WEEK 2022-04-10 20:15:51 3 Day/Wk F Dialyzer DO 2022-04-10 20:15:51 1218 Calc F HEIGHT IN INCHES 2022-04-10 20:15:51 67 Inches F Total Kt/V 2022-04-10 20:15:51 1.09 F KT/V PRESCRIBED 2022-04-10 20:15:51 1.51 F TOTAL HOURS/WEEK DIALYSIS 2022-04-10 20:15:51 9 F WEIGHT - PRE DAY 1 2022-04-10 20:15:51 83.9 kg F PATIENT AGE 2022-04-10 20:15:51 46 Years F URR% 2022-04-10 20:15:51 61 % F DIALYZER FLOW-QD 2022-04-10 20:15:51 800 mL/min F spKt/V 2022-04-10 20:15:51 1.09 F TBW (Diez) 2022-04-10 20:15:51 43.52 Liters F BSA SERENITY 2022-04-10 20:15:51 1.92 sq m F eKt/V 2022-04-10 20:15:51 0.93 F CURRENT KRU 2022-04-10 20:15:51 F VM (KT/V MEAN VOL) 2022-04-10 20:15:51 43.8 F Std Renal KT/V 2022-04-10 20:15:51 N/A F VT (KT/V TX VOL) 2022-04-10 20:15:51 44.6 L F Residual kt/v 2022-04-10 20:15:51 F Creatinine [Mass/volume] in Serum or Plasma 2022-04-10 20:14:00 8.83 mg/dL F 0.7-1.3 Urea nitrogen [Mass/volume] in Serum or Plasma 2022-04-10 20:14:00 46 mg/dL F 9.0-23.0 Urea nitrogen [Mass/volume] in Serum or Plasma --post dialysis 2022-04-10 17:51:46 18 mg/dL F 9.0-23.0 Urea nitrogen [Mass/volume] in Serum or Plasma --post dialysis 2022-03-13 22:06:29 F Recollect - Unsp un specimen,[id number] BLOOD FLOW-QWB 2022-03-13 19:40:52 400 F URR% 2022-03-13 19:40:52 F Unable to calculate: Post BUN lab result is unknown TOTAL HOURS/WEEK DIALYSIS 2022-03-13 19:40:52 11 F PRESCRIBED DAYS/WEEK 2022-03-13 19:40:52 3 Day/Wk F WEIGHT - POST DAY 1 2022-03-13 19:40:52 80.9 kg F Total Kt/V 2022-03-13 19:40:52 F Unable to calculate: Post BUN lab result is unknown LENGTH OF DIALYSIS 2022-03-13 19:40:52 225 min F Dialyzer DO 2022-03-13 19:40:52 1218 Calc F DIALYZER FLOW-QD 2022-03-13 19:40:52 600 mL/min F KT/V PRESCRIBED 2022-03-13 19:40:52 F Unable to calculate: Post BUN lab result is unknown AMPUTATE FACTOR 2022-03-13 19:40:52 0 F stdKt/V (DIAL) 2022-03-13 19:40:52 F Unable to calculate: Post BUN lab result is unknown stdKT/V Total 2022-03-13 19:40:52 N/A F WEIGHT (KG) 2022-03-13 19:40:52 81 kg F PATIENT AGE 2022-03-13 19:40:52 46 Years F HEIGHT IN INCHES 2022-03-13 19:40:52 67 Inches F nPCR 2022-03-13 19:40:52 F Unable to calculate: Post BUN lab result is unknown WEIGHT - PRE DAY 1 2022-03-13 19:40:52 84.2 kg F spKt/V 2022-03-13 19:40:52 F Unable to calculate: Post BUN lab result is unknown Residual kt/v 2022-03-13 19:40:52 F Unable to calculate: Post BUN lab result is unknown VT (KT/V TX VOL) 2022-03-13 19:40:52 F Unable to calculate: Post BUN lab result is unknown Std Renal KT/V 2022-03-13 19:40:52 F Unable to calculate: Post BUN lab result is unknown BSA SERENITY 2022-03-13 19:40:52 F Unable to calculate: Post BUN lab result is unknown CURRENT KRU 2022-03-13 19:40:52 F Unable to calculate: Post BUN lab result is unknown eKt/V 2022-03-13 19:40:52 F Unable to calculate: Post BUN lab result is unknown TBW (Diez) 2022-03-13 19:40:52 F Unable to calculate: Post BUN lab result is unknown VM (KT/V MEAN VOL) 2022-03-13 19:40:52 F Unable to calculate: Post BUN lab result is unknown Creatinine [Mass/volume] in Serum or Plasma 2022-03-13 19:38:39 9.15 mg/dL F 0.7-1.3 Urea nitrogen [Mass/volume] in Serum or Plasma 2022-03-13 19:38:39 65 mg/dL F 9.0-23.0 PATIENT AGE 2022-02-14 19:44:25 46 Years F Dialyzer DO 2022-02-14 19:44:25 1218 Calc F URR% 2022-02-14 19:44:25 61 % F DIALYZER FLOW-QD 2022-02-14 19:44:25 600 mL/min F AMPUTATE FACTOR 2022-02-14 19:44:25 0 F spKt/V 2022-02-14 19:44:25 1.01 F BLOOD FLOW-QWB 2022-02-14 19:44:25 367 F LENGTH OF DIALYSIS 2022-02-14 19:44:25 161 min F PRESCRIBED DAYS/WEEK 2022-02-14 19:44:25 3 Day/Wk F Total Kt/V 2022-02-14 19:44:25 1.01 F TOTAL HOURS/WEEK DIALYSIS 2022-02-14 19:44:25 2 F WEIGHT (KG) 2022-02-14 19:44:25 86.5 kg F WEIGHT - PRE DAY 1 2022-02-14 19:44:25 88.2 kg F stdKt/V (DIAL) 2022-02-14 19:44:25 N/A F KT/V PRESCRIBED 2022-02-14 19:44:25 1.19 F nPCR 2022-02-14 19:44:25 0.38 G/KG/D F stdKT/V Total 2022-02-14 19:44:25 N/A F WEIGHT - POST DAY 1 2022-02-14 19:44:25 86.7 kg F HEIGHT IN INCHES 2022-02-14 19:44:25 67 Inches F VM (KT/V MEAN VOL) 2022-02-14 19:44:25 45 F BSA SERENITY 2022-02-14 19:44:25 1.98 sq m F TBW (Diez) 2022-02-14 19:44:25 45.31 Liters F eKt/V 2022-02-14 19:44:25 0.84 F VT (KT/V TX VOL) 2022-02-14 19:44:25 42.4 L F Residual kt/v 2022-02-14 19:44:25 F CURRENT KRU 2022-02-14 19:44:25 F Std Renal KT/V 2022-02-14 19:44:25 N/A F Urea nitrogen [Mass/volume] in Serum or Plasma 2022-02-14 19:37:03 54 mg/dL F 9.0-23.0 Creatinine [Mass/volume] in Serum or Plasma 2022-02-14 19:37:03 8.26 mg/dL F 0.7-1.3 Urea nitrogen [Mass/volume] in Serum or Plasma --post dialysis 2022-02-14 19:22:50 21 mg/dL F 9.0-23.0 spKt/V 2022-01-27 20:02:03 F Unable to calculate: Missing Height at time of lab draw HEIGHT IN INCHES 2022-01-27 20:02:03 F Unable to calculate: Missing Height at time of lab draw WEIGHT - POST DAY 1 2022-01-27 20:02:03 86.4 kg F DIALYZER FLOW-QD 2022-01-27 20:02:03 600 mL/min F TOTAL HOURS/WEEK DIALYSIS 2022-01-27 20:02:03 3 F stdKT/V Total 2022-01-27 20:02:03 N/A F PATIENT AGE 2022-01-27 20:02:03 46 Years F nPCR 2022-01-27 20:02:03 F Unable to calculate: Missing Height at time of lab draw BLOOD FLOW-QWB 2022-01-27 20:02:03 400 F PRESCRIBED DAYS/WEEK 2022-01-27 20:02:03 3 Day/Wk F WEIGHT - PRE DAY 1 2022-01-27 20:02:03 87.4 kg F stdKt/V (DIAL) 2022-01-27 20:02:03 F Unable to calculate: Missing Height at time of lab draw KT/V PRESCRIBED 2022-01-27 20:02:03 F Unable to calculate: Missing Height at time of lab draw Total Kt/V 2022-01-27 20:02:03 F Unable to calculate: Missing Height at time of lab draw LENGTH OF DIALYSIS 2022-01-27 20:02:03 225 min F WEIGHT (KG) 2022-01-27 20:02:03 88 kg F URR% 2022-01-27 20:02:03 73 % F Dialyzer DO 2022-01-27 20:02:03 1218 Calc F AMPUTATE FACTOR 2022-01-27 20:02:03 0 F VT (KT/V TX VOL) 2022-01-27 20:02:03 F Unable to calculate: Missing Height at time of lab draw Residual kt/v 2022-01-27 20:02:03 F Unable to calculate: Missing Height at time of lab draw BSA SERENITY 2022-01-27 20:02:03 F Unable to calculate: Missing Height at time of lab draw eKt/V 2022-01-27 20:02:03 F Unable to calculate: Missing Height at time of lab draw VM (KT/V MEAN VOL) 2022-01-27 20:02:03 F Unable to calculate: Missing Height at time of lab draw TBW (Diez) 2022-01-27 20:02:03 F Unable to calculate: Missing Height at time of lab draw Std Renal KT/V 2022-01-27 20:02:03 F Unable to calculate: Missing Height at time of lab draw CURRENT KRU 2022-01-27 20:02:03 F Unable to calculate: Missing Height at time of lab draw Creatinine [Mass/volume] in Serum or Plasma 2022-01-22 22:23:52 12.18 mg/dL F 0.7-1.3 Urea nitrogen [Mass/volume] in Serum or Plasma 2022-01-22 22:23:52 66 mg/dL F 9.0-23.0 Urea nitrogen [Mass/volume] in Serum or Plasma --post dialysis 2022-01-22 17:35:18 18 mg/dL F 9.0-23.0 Dialyzer DO LENGTH OF DIALYSIS PRESCRIBED DAYS/WEEK BLOOD FLOW-QWB WEIGHT - POST DAY 1 TOTAL HOURS/WEEK DIALYSIS DIALYZER FLOW-QD WEIGHT - PRE DAY 1 eKt/V BSA SERENITY TBW (Diez) stdKt/V (DIAL) Std Renal KT/V spKt/V KT/V PRESCRIBED VM (KT/V MEAN VOL) Residual kt/v stdKT/V Total CURRENT KRU nPCR VT (KT/V TX VOL) Total Kt/V TOTAL HOURS/WEEK DIALYSIS VM (KT/V MEAN VOL) WEIGHT - PRE DAY 1 BSA SERENITY WEIGHT (KG) Total Kt/V spKt/V URR% DIALYZER FLOW-QD Std Renal KT/V nPCR BLOOD FLOW-QWB WEIGHT - POST DAY 1 Dialyzer DO TBW (Diez) PRESCRIBED DAYS/WEEK LENGTH OF DIALYSIS HEIGHT IN INCHES stdKt/V (DIAL) KT/V PRESCRIBED PATIENT AGE CURRENT KRU Residual kt/v AMPUTATE FACTOR VT (KT/V TX VOL) stdKT/V Total Urea nitrogen [Mass/volume] in Serum or Plasma eKt/V PATIENT AGE WEIGHT - PRE DAY 1 VM (KT/V MEAN VOL) Dialyzer DO PRESCRIBED DAYS/WEEK WEIGHT (KG) Total Kt/V TOTAL HOURS/WEEK DIALYSIS URR% nPCR WEIGHT - POST DAY 1 LENGTH OF DIALYSIS spKt/V CURRENT KRU stdKT/V Total BLOOD FLOW-QWB stdKt/V (DIAL) eKt/V Residual kt/v DIALYZER FLOW-QD HEIGHT IN INCHES BSA SERENITY AMPUTATE FACTOR Urea nitrogen [Mass/volume] in Serum or Plasma KT/V PRESCRIBED Std Renal KT/V TBW (Diez) VT (KT/V TX VOL) Urea nitrogen [Mass/volume] in Serum or Plasma --post dialysis stdKT/V Total Urea nitrogen [Mass/volume] in Serum or Plasma VT (KT/V TX VOL) BLOOD FLOW-QWB WEIGHT - POST DAY 1 KT/V PRESCRIBED CURRENT KRU PRESCRIBED DAYS/WEEK Total Kt/V Residual kt/v VM (KT/V MEAN VOL) Dialyzer DO spKt/V DIALYZER FLOW-QD WEIGHT - PRE DAY 1 TOTAL HOURS/WEEK DIALYSIS stdKt/V (DIAL) BSA SERENITY TBW (Diez) Std Renal KT/V LENGTH OF DIALYSIS URR% nPCR eKt/V TBW (Diez) WEIGHT - POST DAY 1 PATIENT AGE HEIGHT IN INCHES VM (KT/V MEAN VOL) URR% KT/V PRESCRIBED Total Kt/V Std Renal KT/V Residual kt/v spKt/V BSA SERENITY CURRENT KRU AMPUTATE FACTOR BLOOD FLOW-QWB Dialyzer DO eKt/V WEIGHT - PRE DAY 1 stdKt/V (DIAL) DIALYZER FLOW-QD nPCR Urea nitrogen [Mass/volume] in Serum or Plasma VT (KT/V TX VOL) TOTAL HOURS/WEEK DIALYSIS PRESCRIBED DAYS/WEEK LENGTH OF DIALYSIS WEIGHT (KG) stdKT/V Total WEIGHT (KG) stdKt/V (DIAL) Residual kt/v BSA SERENITY stdKT/V Total VT (KT/V TX VOL) WEIGHT - POST DAY 1 Dialyzer DO BLOOD FLOW-QWB PATIENT AGE URR% WEIGHT - PRE DAY 1 HEIGHT IN INCHES Urea nitrogen [Mass/volume] in Serum or Plasma VM (KT/V MEAN VOL) eKt/V CURRENT KRU PRESCRIBED DAYS/WEEK Std Renal KT/V LENGTH OF DIALYSIS nPCR Total Kt/V AMPUTATE FACTOR TOTAL HOURS/WEEK DIALYSIS DIALYZER FLOW-QD KT/V PRESCRIBED TBW (Diez) spKt/V Anemia Description Draw Date Result/Unit Status Ref Range Result Comments HCT CALC [id number] 2024-10-14 00:19:20 39.9 % F 42.0-52.0 Erythrocyte distribution width [Ratio] by Automated count 2024-10-14 00:18:16 16.5 % F 11.0-15.0 Erythrocytes [#/volume] in Blood by Automated count 2024-10-14 00:18:16 4.14 x 10^6 cells/uL F 4.6-6.2 Hemoglobin [Mass/volume] in Blood 2024-10-14 00:18:16 13.3 g/dL F 14.0-18.0 Hematocrit [Volume Fraction] of Blood by Automated count 2024-10-14 00:18:16 43.4 % F 41.0-53.0 MCV [Entitic volume] by Automated count 2024-10-14 00:18:16 104.8 fL F 80.0-100.0 MCHC [Mass/volume] by Automated count 2024-10-14 00:18:16 30.6 g/dL F 29.6-35.3 Platelets [#/volume] in Blood by Automated count 2024-10-14 00:18:16 158 x 10^3 cells/uL F 140.0-450.0 MCH [Entitic mass] by Automated count 2024-10-14 00:18:16 32.1 pg F 25.9-34.2 HCT CALC HGBX3 2024-09-15 22:50:10 35.4 % F 42.0-52.0 HCT CALC HGBX3 2024-09-15 22:50:10 35.4 % F 42.0-52.0 Hemoglobin [Mass/volume] in Blood 2024-09-15 22:49:16 11.8 g/dL F 14.0-18.0 Hemoglobin [Mass/volume] in Blood 2024-09-15 22:49:16 11.8 g/dL F 14.0-18.0 IRON SATURATION 2024-09-11 07:44:21 28 % F 21.0-49.0 TIBC 2024-09-11 07:44:21 223 ug/dL F 250.0-425.0 IRON SATURATION 2024-09-11 07:44:21 28 % F 21.0-49.0 TIBC 2024-09-11 07:44:21 223 ug/dL F 250.0-425.0 Iron [Mass/volume] in Serum or Plasma 2024-09-11 04:53:44 63 ug/dL F 65.0-175.0 Iron binding capacity.unsaturated [Mass/volume] in Serum or Plasma 2024-09-11 04:53:44 160 ug/dL F 75.0-360.0 Iron [Mass/volume] in Serum or Plasma 2024-09-11 04:53:44 63 ug/dL F 65.0-175.0 Iron binding capacity.unsaturated [Mass/volume] in Serum or Plasma 2024-09-11 04:53:44 160 ug/dL F 75.0-360.0 HCT CALC HGBX3 2024-09-10 20:02:51 36.9 % F 42.0-52.0 HCT CALC HGBX3 2024-09-10 20:02:51 36.9 % F 42.0-52.0 Reticulocytes/100 erythrocytes in Blood by Automated count 2024-09-10 20:02:08 2.39 % F 0.7-2.5 Erythrocyte distribution width [Ratio] by Automated count 2024-09-10 20:02:08 15.1 % F 11.0-15.0 Hemoglobin [Mass/volume] in Blood 2024-09-10 20:02:08 12.3 g/dL F 14.0-18.0 Platelets [#/volume] in Blood by Automated count 2024-09-10 20:02:08 256 x 10^3 cells/uL F 140.0-450.0 MCH [Entitic mass] by Automated count 2024-09-10 20:02:08 31.9 pg F 25.9-34.2 MCHC [Mass/volume] by Automated count 2024-09-10 20:02:08 31.3 g/dL F 29.6-35.3 Erythrocytes [#/volume] in Blood by Automated count 2024-09-10 20:02:08 3.85 x 10^6 cells/uL F 4.6-6.2 Hematocrit [Volume Fraction] of Blood by Automated count 2024-09-10 20:02:08 39.3 % F 41.0-53.0 MCV [Entitic volume] by Automated count 2024-09-10 20:02:08 102.1 fL F 80.0-100.0 Reticulocytes/100 erythrocytes in Blood by Automated count 2024-09-10 20:02:08 2.39 % F 0.7-2.5 Erythrocyte distribution width [Ratio] by Automated count 2024-09-10 20:02:08 15.1 % F 11.0-15.0 Platelets [#/volume] in Blood by Automated count 2024-09-10 20:02:08 256 x 10^3 cells/uL F 140.0-450.0 Hemoglobin [Mass/volume] in Blood 2024-09-10 20:02:08 12.3 g/dL F 14.0-18.0 MCH [Entitic mass] by Automated count 2024-09-10 20:02:08 31.9 pg F 25.9-34.2 MCHC [Mass/volume] by Automated count 2024-09-10 20:02:08 31.3 g/dL F 29.6-35.3 Erythrocytes [#/volume] in Blood by Automated count 2024-09-10 20:02:08 3.85 x 10^6 cells/uL F 4.6-6.2 Hematocrit [Volume Fraction] of Blood by Automated count 2024-09-10 20:02:08 39.3 % F 41.0-53.0 MCV [Entitic volume] by Automated count 2024-09-10 20:02:08 102.1 fL F 80.0-100.0 Ferritin [Mass/volume] in Serum or Plasma 2024-09-10 19:34:18 562 ng/mL F 22.0-322.0 Ferritin [Mass/volume] in Serum or Plasma 2024-09-10 19:34:18 562 ng/mL F 22.0-322.0 HCT CALC HGBX3 2024-09-02 06:12:01 38.7 % F 42.0-52.0 HCT CALC HGBX3 2024-09-02 06:12:01 38.7 % F 42.0-52.0 Hemoglobin [Mass/volume] in Blood 2024-09-02 06:11:18 12.9 g/dL F 14.0-18.0 Hemoglobin [Mass/volume] in Blood 2024-09-02 06:11:18 12.9 g/dL F 14.0-18.0 HCT CALC HGBX3 2024-08-26 18:18:16 39.6 % F 42.0-52.0 HCT CALC HGBX3 2024-08-26 18:18:16 39.6 % F 42.0-52.0 Hemoglobin [Mass/volume] in Blood 2024-08-26 18:17:15 13.2 g/dL F 14.0-18.0 Hemoglobin [Mass/volume] in Blood 2024-08-26 18:17:15 13.2 g/dL F 14.0-18.0 HCT CALC HGBX3 2024-08-02 22:15:02 34.2 % F 42.0-52.0 HCT CALC HGBX3 2024-08-02 22:15:02 34.2 % F 42.0-52.0 Erythrocyte distribution width [Ratio] by Automated count 2024-08-02 22:05:08 15.3 % F 11.0-15.0 Hemoglobin [Mass/volume] in Blood 2024-08-02 22:05:08 11.4 g/dL F 14.0-18.0 Platelets [#/volume] in Blood by Automated count 2024-08-02 22:05:08 265 x 10^3 cells/uL F 140.0-450.0 MCH [Entitic mass] by Automated count 2024-08-02 22:05:08 31.4 pg F 25.9-34.2 MCHC [Mass/volume] by Automated count 2024-08-02 22:05:08 30.4 g/dL F 29.6-35.3 Erythrocytes [#/volume] in Blood by Automated count 2024-08-02 22:05:08 3.63 x 10^6 cells/uL F 4.6-6.2 Hematocrit [Volume Fraction] of Blood by Automated count 2024-08-02 22:05:08 37.6 % F 41.0-53.0 MCV [Entitic volume] by Automated count 2024-08-02 22:05:08 103.4 fL F 80.0-100.0 Erythrocyte distribution width [Ratio] by Automated count 2024-08-02 22:05:08 15.3 % F 11.0-15.0 Hemoglobin [Mass/volume] in Blood 2024-08-02 22:05:08 11.4 g/dL F 14.0-18.0 Platelets [#/volume] in Blood by Automated count 2024-08-02 22:05:08 265 x 10^3 cells/uL F 140.0-450.0 MCH [Entitic mass] by Automated count 2024-08-02 22:05:08 31.4 pg F 25.9-34.2 MCHC [Mass/volume] by Automated count 2024-08-02 22:05:08 30.4 g/dL F 29.6-35.3 Hematocrit [Volume Fraction] of Blood by Automated count 2024-08-02 22:05:08 37.6 % F 41.0-53.0 Erythrocytes [#/volume] in Blood by Automated count 2024-08-02 22:05:08 3.63 x 10^6 cells/uL F 4.6-6.2 MCV [Entitic volume] by Automated count 2024-08-02 22:05:08 103.4 fL F 80.0-100.0 HCT CALC HGBX3 2024-07-28 21:41:11 36.6 % F 42.0-52.0 HCT CALC HGBX3 2024-07-28 21:41:11 36.6 % F 42.0-52.0 Hemoglobin [Mass/volume] in Blood 2024-07-28 21:40:09 12.2 g/dL F 14.0-18.0 Hemoglobin [Mass/volume] in Blood 2024-07-28 21:40:09 12.2 g/dL F 14.0-18.0 HCT CALC HGBX3 2024-07-24 07:33:02 see comments F 42.0-52.0 Unable to Calculate. HCT CALC HGBX3 2024-07-24 07:33:02 see comments F 42.0-52.0 Unable to Calculate. MCHC [Mass/volume] by Automated count 2024-07-24 07:20:39 F Canceled - Specimen not received 5 days past draw date,Canceled - Specimen not received 5 days past draw date MCV [Entitic volume] by Automated count 2024-07-24 07:20:39 F Canceled - Specimen not received 5 days past draw date,Canceled - Specimen not received 5 days past draw date MCH [Entitic mass] by Automated count 2024-07-24 07:20:39 F Canceled - Specimen not received 5 days past draw date,Canceled - Specimen not received 5 days past draw date Hematocrit [Volume Fraction] of Blood by Automated count 2024-07-24 07:20:39 F Canceled - Specimen not received 5 days past draw date,Canceled - Specimen not received 5 days past draw date Platelets [#/volume] in Blood by Automated count 2024-07-24 07:20:39 F Canceled - Specimen not received 5 days past draw date,Canceled - Specimen not received 5 days past draw date Erythrocytes [#/volume] in Blood by Automated count 2024-07-24 07:20:39 F Canceled - Specimen not received 5 days past draw date,Canceled - Specimen not received 5 days past draw date Erythrocyte distribution width [Ratio] by Automated count 2024-07-24 07:20:39 F Canceled - Specimen not received 5 days past draw date,Canceled - Specimen not received 5 days past draw date Hemoglobin [Mass/volume] in Blood 2024-07-24 07:20:39 F Canceled - Specimen not received 5 days past draw date,Canceled - Specimen not received 5 days past draw date MCV [Entitic volume] by Automated count 2024-07-24 07:20:39 F Canceled - Specimen not received 5 days past draw date Erythrocytes [#/volume] in Blood by Automated count 2024-07-24 07:20:39 F Canceled - Specimen not received 5 days past draw date Erythrocyte distribution width [Ratio] by Automated count 2024-07-24 07:20:39 F Canceled - Specimen not received 5 days past draw date Platelets [#/volume] in Blood by Automated count 2024-07-24 07:20:39 F Canceled - Specimen not received 5 days past draw date Hematocrit [Volume Fraction] of Blood by Automated count 2024-07-24 07:20:39 F Canceled - Specimen not received 5 days past draw date MCH [Entitic mass] by Automated count 2024-07-24 07:20:39 F Canceled - Specimen not received 5 days past draw date Hemoglobin [Mass/volume] in Blood 2024-07-24 07:20:39 F Canceled - Specimen not received 5 days past draw date MCHC [Mass/volume] by Automated count 2024-07-24 07:20:39 F Canceled - Specimen not received 5 days past draw date IRON SATURATION 2024-06-10 06:19:31 20 % F 21.0-49.0 TIBC 2024-06-10 06:19:31 239 ug/dL F 250.0-425.0 Iron [Mass/volume] in Serum or Plasma 2024-06-10 06:17:08 47 ug/dL F 65.0-175.0 Iron binding capacity.unsaturated [Mass/volume] in Serum or Plasma 2024-06-10 06:17:08 192 ug/dL F 75.0-360.0 HCT CALC HGBX3 2024-06-09 22:29:48 37.5 % F 42.0-52.0 Erythrocyte distribution width [Ratio] by Automated count 2024-06-09 22:29:12 16.5 % F 11.0-15.0 Hemoglobin [Mass/volume] in Blood 2024-06-09 22:29:12 12.5 g/dL F 14.0-18.0 Platelets [#/volume] in Blood by Automated count 2024-06-09 22:29:12 273 x 10^3 cells/uL F 140.0-450.0 MCH [Entitic mass] by Automated count 2024-06-09 22:29:12 31.2 pg F 25.9-34.2 MCHC [Mass/volume] by Automated count 2024-06-09 22:29:12 30.7 g/dL F 29.6-35.3 Hematocrit [Volume Fraction] of Blood by Automated count 2024-06-09 22:29:12 40.7 % F 41.0-53.0 Erythrocytes [#/volume] in Blood by Automated count 2024-06-09 22:29:12 3.99 x 10^6 cells/uL F 4.6-6.2 MCV [Entitic volume] by Automated count 2024-06-09 22:29:12 101.8 fL F 80.0-100.0 Ferritin [Mass/volume] in Serum or Plasma 2024-06-09 21:53:51 655 ng/mL F 22.0-322.0 HCT CALC HGBX3 2024-05-14 02:26:52 38.4 % F 42.0-52.0 Erythrocyte distribution width [Ratio] by Automated count 2024-05-14 02:26:13 16.6 % F 11.0-15.0 Hemoglobin [Mass/volume] in Blood 2024-05-14 02:26:13 12.8 g/dL F 14.0-18.0 Platelets [#/volume] in Blood by Automated count 2024-05-14 02:26:13 244 x 10^3 cells/uL F 140.0-450.0 MCH [Entitic mass] by Automated count 2024-05-14 02:26:13 30.7 pg F 25.9-34.2 MCHC [Mass/volume] by Automated count 2024-05-14 02:26:13 30 g/dL F 29.6-35.3 Erythrocytes [#/volume] in Blood by Automated count 2024-05-14 02:26:13 4.15 x 10^6 cells/uL F 4.6-6.2 Hematocrit [Volume Fraction] of Blood by Automated count 2024-05-14 02:26:13 42.5 % F 41.0-53.0 MCV [Entitic volume] by Automated count 2024-05-14 02:26:13 102.4 fL F 80.0-100.0 HCT CALC HGBX3 2024-04-15 18:27:21 F Recollect - lab error accident,Unable to Calculate. Erythrocyte distribution width [Ratio] by Automated count 2024-04-15 18:15:59 F Recollect - lab error accident Hemoglobin [Mass/volume] in Blood 2024-04-15 18:15:59 F Recollect - lab error accident MCHC [Mass/volume] by Automated count 2024-04-15 18:15:59 F Recollect - lab error accident Erythrocytes [#/volume] in Blood by Automated count 2024-04-15 18:15:59 F Recollect - lab error accident Hematocrit [Volume Fraction] of Blood by Automated count 2024-04-15 18:15:59 F Recollect - lab error accident MCH [Entitic mass] by Automated count 2024-04-15 18:15:59 F Recollect - lab error accident MCV [Entitic volume] by Automated count 2024-04-15 18:15:59 F Recollect - lab error accident Platelets [#/volume] in Blood by Automated count 2024-04-15 18:15:59 F Recollect - lab error accident Ferritin [Mass/volume] in Serum or Plasma 2024-03-12 07:40:10 746 ng/mL F 22.0-322.0 IRON SATURATION 2024-03-11 08:33:51 17 % F 21.0-49.0 TIBC 2024-03-11 08:33:51 224 ug/dL F 250.0-425.0 Iron binding capacity.unsaturated [Mass/volume] in Serum or Plasma 2024-03-11 08:02:26 185 ug/dL F 75.0-360.0 Iron [Mass/volume] in Serum or Plasma 2024-03-11 08:02:17 39 ug/dL F 65.0-175.0 HCT CALC HGBX3 2024-03-11 06:23:56 28.8 % F 42.0-52.0 Reticulocytes/100 erythrocytes in Blood by Automated count 2024-03-11 06:23:07 2.86 % F 0.7-2.5 Erythrocyte distribution width [Ratio] by Automated count 2024-03-11 06:23:07 15.7 % F 11.0-15.0 Hemoglobin [Mass/volume] in Blood 2024-03-11 06:23:07 9.6 g/dL F 14.0-18.0 Platelets [#/volume] in Blood by Automated count 2024-03-11 06:23:07 398 x 10^3 cells/uL F 140.0-450.0 MCH [Entitic mass] by Automated count 2024-03-11 06:23:07 29.8 pg F 25.9-34.2 MCHC [Mass/volume] by Automated count 2024-03-11 06:23:07 30.2 g/dL F 29.6-35.3 Erythrocytes [#/volume] in Blood by Automated count 2024-03-11 06:23:07 3.21 x 10'6 cells/uL F 4.6-6.2 Hematocrit [Volume Fraction] of Blood by Automated count 2024-03-11 06:23:07 31.7 % F 41.0-53.0 MCV [Entitic volume] by Automated count 2024-03-11 06:23:07 98.7 fL F 80.0-100.0 HCT CALC HGBX3 2024-02-12 01:53:23 32.1 % F 42.0-52.0 Erythrocyte distribution width [Ratio] by Automated count 2024-02-12 01:51:16 15.3 % F 11.0-15.0 Hemoglobin [Mass/volume] in Blood 2024-02-12 01:51:16 10.7 g/dL F 14.0-18.0 Platelets [#/volume] in Blood by Automated count 2024-02-12 01:51:16 279 x 10^3 cells/uL F 140.0-450.0 MCH [Entitic mass] by Automated count 2024-02-12 01:51:16 31.3 pg F 25.9-34.2 MCHC [Mass/volume] by Automated count 2024-02-12 01:51:16 30.9 g/dL F 29.6-35.3 Erythrocytes [#/volume] in Blood by Automated count 2024-02-12 01:51:16 3.43 x 10'6 cells/uL F 4.6-6.2 Hematocrit [Volume Fraction] of Blood by Automated count 2024-02-12 01:51:16 34.7 % F 41.0-53.0 MCV [Entitic volume] by Automated count 2024-02-12 01:51:16 101.2 fL F 80.0-100.0 HCT CALC HGBX3 2024-01-16 19:12:06 F RECOLLECT - OUTDATED SPECIMEN MCH [Entitic mass] by Automated count 2024-01-16 14:11:14 F RECOLLECT - OUTDATED SPECIMEN Hemoglobin [Mass/volume] in Blood 2024-01-16 14:11:14 F RECOLLECT - OUTDATED SPECIMEN Hematocrit [Volume Fraction] of Blood by Automated count 2024-01-16 14:11:14 F RECOLLECT - OUTDATED SPECIMEN MCV [Entitic volume] by Automated count 2024-01-16 14:11:14 F RECOLLECT - OUTDATED SPECIMEN Erythrocyte distribution width [Ratio] by Automated count 2024-01-16 14:11:14 F RECOLLECT - OUTDATED SPECIMEN Platelets [#/volume] in Blood by Automated count 2024-01-16 14:11:14 F RECOLLECT - OUTDATED SPECIMEN Erythrocytes [#/volume] in Blood by Automated count 2024-01-16 14:11:14 F RECOLLECT - OUTDATED SPECIMEN MCHC [Mass/volume] by Automated count 2024-01-16 14:11:14 F RECOLLECT - OUTDATED SPECIMEN IRON SATURATION 2023-12-11 07:02:27 32 % F 21.0-49.0 TIBC 2023-12-11 07:02:27 226 ug/dL F 250.0-425.0 Ferritin [Mass/volume] in Serum or Plasma 2023-12-11 06:54:30 479 ng/mL F 22.0-322.0 Iron binding capacity.unsaturated [Mass/volume] in Serum or Plasma 2023-12-11 06:36:32 154 ug/dL F 75.0-360.0 Iron [Mass/volume] in Serum or Plasma 2023-12-11 06:36:32 72 ug/dL F 65.0-175.0 HCT CALC HGBX3 2023-12-10 21:16:35 35.1 % F 42.0-52.0 Erythrocyte distribution width [Ratio] by Automated count 2023-12-10 21:16:21 15.6 % F 11.0-15.0 Hemoglobin [Mass/volume] in Blood 2023-12-10 21:16:21 11.7 g/dL F 14.0-18.0 Platelets [#/volume] in Blood by Automated count 2023-12-10 21:16:21 315 x 10^3 cells/uL F 140.0-450.0 MCH [Entitic mass] by Automated count 2023-12-10 21:16:21 31.7 pg F 25.9-34.2 MCHC [Mass/volume] by Automated count 2023-12-10 21:16:21 31.5 g/dL F 29.6-35.3 Erythrocytes [#/volume] in Blood by Automated count 2023-12-10 21:16:21 3.7 x 10'6 cells/uL F 4.6-6.2 Hematocrit [Volume Fraction] of Blood by Automated count 2023-12-10 21:16:21 37.2 % F 41.0-53.0 MCV [Entitic volume] by Automated count 2023-12-10 21:16:21 100.6 fL F 80.0-100.0 HCT CALC HGBX3 2023-11-13 04:36:26 28.8 % F 42.0-52.0 MCH [Entitic mass] by Automated count 2023-11-13 04:35:43 30.8 pg F 25.9-34.2 Hemoglobin [Mass/volume] in Blood 2023-11-13 04:35:39 9.6 g/dL F 14.0-18.0 Hematocrit [Volume Fraction] of Blood by Automated count 2023-11-13 04:35:39 31.5 % F 41.0-53.0 MCV [Entitic volume] by Automated count 2023-11-13 04:35:39 101.2 fL F 80.0-100.0 Erythrocyte distribution width [Ratio] by Automated count 2023-11-13 04:35:36 16.7 % F 11.0-15.0 Platelets [#/volume] in Blood by Automated count 2023-11-13 04:35:36 354 x 10^3 cells/uL F 140.0-450.0 MCHC [Mass/volume] by Automated count 2023-11-13 04:35:36 30.5 g/dL F 29.6-35.3 Erythrocytes [#/volume] in Blood by Automated count 2023-11-13 04:35:36 3.11 x 10'6 cells/uL F 4.6-6.2 IRON SATURATION 2023-09-06 05:35:30 28 % F 21.0-49.0 TIBC 2023-09-06 05:35:30 235 ug/dL F 250.0-425.0 HCT CALC HGBX3 2023-09-06 05:35:30 34.5 % F 42.0-52.0 Iron [Mass/volume] in Serum or Plasma 2023-09-06 05:34:41 65 ug/dL F 65.0-175.0 Iron binding capacity.unsaturated [Mass/volume] in Serum or Plasma 2023-09-06 05:34:41 170 ug/dL F 75.0-360.0 Ferritin [Mass/volume] in Serum or Plasma 2023-09-06 04:42:33 782 ng/mL F 22.0-322.0 Reticulocytes/100 erythrocytes in Blood by Automated count 2023-09-05 22:50:28 1.36 % F 0.7-2.5 Erythrocyte distribution width [Ratio] by Automated count 2023-09-05 22:50:28 16.3 % F 11.0-15.0 Hemoglobin [Mass/volume] in Blood 2023-09-05 22:50:28 11.5 g/dL F 14.0-18.0 Platelets [#/volume] in Blood by Automated count 2023-09-05 22:50:28 459 x 10^3 cells/uL F 140.0-450.0 MCH [Entitic mass] by Automated count 2023-09-05 22:50:28 31.1 pg F 25.9-34.2 MCHC [Mass/volume] by Automated count 2023-09-05 22:50:28 30.7 g/dL F 29.6-35.3 Erythrocytes [#/volume] in Blood by Automated count 2023-09-05 22:50:28 3.69 x 10'6 cells/uL F 4.6-6.2 Hematocrit [Volume Fraction] of Blood by Automated count 2023-09-05 22:50:28 37.4 % F 41.0-53.0 MCV [Entitic volume] by Automated count 2023-09-05 22:50:28 101.6 fL F 80.0-100.0 IRON SATURATION 2022-09-21 02:34:35 31 % F 21.0-49.0 TIBC 2022-09-21 02:34:35 219 ug/dL F 250.0-425.0 Iron [Mass/volume] in Serum or Plasma 2022-09-21 02:27:20 68 ug/dL F 65.0-175.0 Iron binding capacity.unsaturated [Mass/volume] in Serum or Plasma 2022-09-21 02:27:20 151 ug/dL F 75.0-360.0 HCT CALC HGBX3 2022-09-20 17:12:57 25.2 % F 42.0-52.0 Reticulocytes/100 erythrocytes in Blood by Automated count 2022-09-20 17:12:08 2.28 % F 0.7-2.5 Erythrocyte distribution width [Ratio] by Automated count 2022-09-20 17:12:08 13.8 % F 11.0-15.0 Hemoglobin [Mass/volume] in Blood 2022-09-20 17:12:08 8.4 g/dL F 14.0-18.0 Platelets [#/volume] in Blood by Automated count 2022-09-20 17:12:08 332 x 10^3 cells/uL F 140.0-450.0 MCH [Entitic mass] by Automated count 2022-09-20 17:12:08 31.7 pg F 25.9-34.2 MCHC [Mass/volume] by Automated count 2022-09-20 17:12:08 32.1 g/dL F 29.6-35.3 Erythrocytes [#/volume] in Blood by Automated count 2022-09-20 17:12:08 2.65 x 10'6 cells/uL F 4.6-6.2 Hematocrit [Volume Fraction] of Blood by Automated count 2022-09-20 17:12:08 26.1 % F 41.0-53.0 MCV [Entitic volume] by Automated count 2022-09-20 17:12:08 98.6 fL F 80.0-100.0 Ferritin [Mass/volume] in Serum or Plasma 2022-09-20 17:08:08 1274 ng/mL F 22.0-322.0 HCT CALC HGBX3 2022-08-12 18:22:53 33.9 % F 42.0-52.0 Hemoglobin [Mass/volume] in Blood 2022-08-12 18:22:14 11.3 g/dL F 14.0-18.0 IRON SATURATION 2022-06-13 04:15:55 26 % F 21.0-49.0 TIBC 2022-06-13 04:15:55 187 ug/dL F 250.0-425.0 Iron [Mass/volume] in Serum or Plasma 2022-06-13 03:32:06 48 ug/dL F 65.0-175.0 Iron binding capacity.unsaturated [Mass/volume] in Serum or Plasma 2022-06-13 03:32:06 139 ug/dL F 75.0-360.0 Ferritin [Mass/volume] in Serum or Plasma 2022-06-12 23:47:20 927 ng/mL F 22.0-322.0 HCT CALC HGBX3 2022-06-12 23:12:31 33 % F 42.0-52.0 Erythrocyte distribution width [Ratio] by Automated count 2022-06-12 23:12:18 14.4 % F 11.0-15.0 Platelets [#/volume] in Blood by Automated count 2022-06-12 23:12:18 330 x 10^3 cells/uL F 150.0-400.0 MCH [Entitic mass] by Automated count 2022-06-12 23:12:18 32 pg F 27.0-31.0 MCHC [Mass/volume] by Automated count 2022-06-12 23:12:18 32.9 g/dL F 32.0-36.0 Hematocrit [Volume Fraction] of Blood by Automated count 2022-06-12 23:12:18 33.5 % F 42.0-52.0 MCV [Entitic volume] by Automated count 2022-06-12 23:12:18 97.4 fL F 80.0-100.0 Hemoglobin [Mass/volume] in Blood 2022-06-12 23:12:15 11 g/dL F 14.0-18.0 Erythrocytes [#/volume] in Blood by Automated count 2022-06-12 23:12:15 3.44 x 10'6 cells/uL F 4.6-6.2 HCT CALC HGBX3 2022-05-16 01:05:24 29.1 % F 42.0-52.0 Erythrocyte distribution width [Ratio] by Automated count 2022-05-16 01:04:55 15.4 % F 11.0-15.0 Hemoglobin [Mass/volume] in Blood 2022-05-16 01:04:55 9.7 g/dL F 14.0-18.0 Platelets [#/volume] in Blood by Automated count 2022-05-16 01:04:55 379 x 10^3 cells/uL F 150.0-400.0 MCH [Entitic mass] by Automated count 2022-05-16 01:04:55 29.9 pg F 27.0-31.0 MCHC [Mass/volume] by Automated count 2022-05-16 01:04:55 30.3 g/dL F 32.0-36.0 Hematocrit [Volume Fraction] of Blood by Automated count 2022-05-16 01:04:55 32 % F 42.0-52.0 Erythrocytes [#/volume] in Blood by Automated count 2022-05-16 01:04:55 3.25 x 10'6 cells/uL F 4.6-6.2 MCV [Entitic volume] by Automated count 2022-05-16 01:04:55 98.6 fL F 80.0-100.0 HCT CALC HGBX3 2022-04-10 17:59:57 28.8 % F 42.0-52.0 Erythrocyte distribution width [Ratio] by Automated count 2022-04-10 17:59:50 16.3 % F 11.0-15.0 Hemoglobin [Mass/volume] in Blood 2022-04-10 17:59:50 9.6 g/dL F 14.0-18.0 Platelets [#/volume] in Blood by Automated count 2022-04-10 17:59:50 435 x 10^3 cells/uL F 150.0-400.0 MCH [Entitic mass] by Automated count 2022-04-10 17:59:50 28.7 pg F 27.0-31.0 MCHC [Mass/volume] by Automated count 2022-04-10 17:59:50 30.5 g/dL F 32.0-36.0 Erythrocytes [#/volume] in Blood by Automated count 2022-04-10 17:59:50 3.36 x 10'6 cells/uL F 4.6-6.2 Hematocrit [Volume Fraction] of Blood by Automated count 2022-04-10 17:59:48 31.6 % F 42.0-52.0 MCV [Entitic volume] by Automated count 2022-04-10 17:59:48 94 fL F 80.0-100.0 IRON SATURATION 2022-03-14 04:50:31 25 % F 21.0-49.0 TIBC 2022-03-14 04:50:31 227 ug/dL F 250.0-425.0 Iron [Mass/volume] in Serum or Plasma 2022-03-14 04:38:34 56 ug/dL F 65.0-175.0 Iron binding capacity.unsaturated [Mass/volume] in Serum or Plasma 2022-03-14 04:38:34 171 ug/dL F 75.0-360.0 HCT CALC HGBX3 2022-03-14 00:56:19 24 % F 42.0-52.0 Reticulocytes/100 erythrocytes in Blood by Automated count 2022-03-14 00:55:38 2.9 % F 0.8-2.1 Erythrocyte distribution width [Ratio] by Automated count 2022-03-14 00:55:38 15.8 % F 11.0-15.0 Hemoglobin [Mass/volume] in Blood 2022-03-14 00:55:38 8 g/dL F 14.0-18.0 Platelets [#/volume] in Blood by Automated count 2022-03-14 00:55:38 459 x 10^3 cells/uL F 150.0-400.0 MCH [Entitic mass] by Automated count 2022-03-14 00:55:38 29.8 pg F 27.0-31.0 MCHC [Mass/volume] by Automated count 2022-03-14 00:55:38 30.7 g/dL F 32.0-36.0 Hematocrit [Volume Fraction] of Blood by Automated count 2022-03-14 00:55:38 26.1 % F 42.0-52.0 Erythrocytes [#/volume] in Blood by Automated count 2022-03-14 00:55:38 2.69 x 10'6 cells/uL F 4.6-6.2 MCV [Entitic volume] by Automated count 2022-03-14 00:55:38 97 fL F 80.0-100.0 Ferritin [Mass/volume] in Serum or Plasma 2022-03-13 20:29:48 752 ng/mL F 22.0-322.0 IRON SATURATION 2022-02-14 20:57:20 17 % F 21.0-49.0 TIBC 2022-02-14 20:57:20 185 ug/dL F 250.0-425.0 Iron [Mass/volume] in Serum or Plasma 2022-02-14 20:56:26 32 ug/dL F 65.0-175.0 Iron binding capacity.unsaturated [Mass/volume] in Serum or Plasma 2022-02-14 20:56:26 153 ug/dL F 75.0-360.0 Ferritin [Mass/volume] in Serum or Plasma 2022-02-14 15:46:52 789 ng/mL F 22.0-322.0 HCT CALC HGBX3 2022-02-14 15:04:45 24.3 % F 42.0-52.0 MCH [Entitic mass] by Automated count 2022-02-14 15:03:50 31.2 pg F 27.0-31.0 MCHC [Mass/volume] by Automated count 2022-02-14 15:03:50 33.5 g/dL F 32.0-36.0 Erythrocytes [#/volume] in Blood by Automated count 2022-02-14 15:03:50 2.59 x 10'6 cells/uL F 4.6-6.2 Hematocrit [Volume Fraction] of Blood by Automated count 2022-02-14 15:03:50 24 % F 42.0-52.0 MCV [Entitic volume] by Automated count 2022-02-14 15:03:50 92.9 fL F 80.0-100.0 Erythrocyte distribution width [Ratio] by Automated count 2022-02-14 15:03:50 16.4 % F 11.0-15.0 Hemoglobin [Mass/volume] in Blood 2022-02-14 15:03:50 8.1 g/dL F 14.0-18.0 Platelets [#/volume] in Blood by Automated count 2022-02-14 15:03:50 414 x 10^3 cells/uL F 150.0-400.0 HCT CALC HGBX3 2022-01-22 15:13:09 25.2 % F 42.0-52.0 Erythrocyte distribution width [Ratio] by Automated count 2022-01-22 15:12:20 14.4 % F 11.0-15.0 Hemoglobin [Mass/volume] in Blood 2022-01-22 15:12:20 8.4 g/dL F 14.0-18.0 Platelets [#/volume] in Blood by Automated count 2022-01-22 15:12:20 483 x 10^3 cells/uL F 150.0-400.0 MCH [Entitic mass] by Automated count 2022-01-22 15:12:20 30.1 pg F 27.0-31.0 MCHC [Mass/volume] by Automated count 2022-01-22 15:12:20 31.1 g/dL F 32.0-36.0 Erythrocytes [#/volume] in Blood by Automated count 2022-01-22 15:12:20 2.78 x 10'6 cells/uL F 4.6-6.2 Hematocrit [Volume Fraction] of Blood by Automated count 2022-01-22 15:12:20 26.9 % F 42.0-52.0 MCV [Entitic volume] by Automated count 2022-01-22 15:12:20 96.8 fL F 80.0-100.0 Comorbidities Description Draw Date Result/Unit Status Ref Range Result Comments Hemoglobin A1c/Hemoglobin.total in Blood 2024-09-11 04:13:11 4.6 %A1c F 0.0-5.6 Hemoglobin A1c/Hemoglobin.total in Blood 2024-09-11 04:13:11 4.6 %A1c F 0.0-5.6 Hemoglobin A1c/Hemoglobin.total in Blood 2024-06-09 23:22:15 4.6 %A1c F 0.0-5.6 Hemoglobin A1c/Hemoglobin.total in Blood 2024-03-11 07:56:11 4.8 %A1c F 0.0-5.6 Hemoglobin A1c/Hemoglobin.total in Blood 2023-12-11 02:42:48 4.6 %A1c F 0.0-5.6 Hemoglobin A1c/Hemoglobin.total in Blood 2023-09-06 06:33:38 4.7 %A1c F 0.0-5.6 Hemoglobin A1c/Hemoglobin.total in Blood 2022-09-20 23:49:17 4.8 %A1c F 0.0-5.6 Hemoglobin A1c/Hemoglobin.total in Blood 2022-06-13 05:08:59 4.5 %A1c F 0.0-5.6 Hemoglobin A1c/Hemoglobin.total in Blood 2022-03-14 03:38:05 4.6 %A1c F 0.0-5.6 FluidBP Description Draw Date Result/Unit Status Ref Range Result Comments Sodium [Moles/volume] in Serum or Plasma 2024-10-14 01:37:00 140 mEq/L F 136.0-145.0 Sodium [Moles/volume] in Serum or Plasma 2024-09-11 04:53:44 138 mEq/L F 136.0-145.0 Sodium [Moles/volume] in Serum or Plasma 2024-09-11 04:53:44 138 mEq/L F 136.0-145.0 Sodium [Moles/volume] in Serum or Plasma 2024-08-02 23:41:07 138 mEq/L F 132.0-146.0 Sodium [Moles/volume] in Serum or Plasma 2024-08-02 23:41:07 138 mEq/L F 132.0-146.0 Sodium [Moles/volume] in Serum or Plasma 2024-07-29 18:29:20 F Canceled - Specimen not received 5 days past draw date Sodium [Moles/volume] in Serum or Plasma 2024-06-10 06:17:08 137 mEq/L F 132.0-146.0 Sodium [Moles/volume] in Serum or Plasma 2024-05-14 04:18:21 134 mEq/L F 132.0-146.0 Sodium [Moles/volume] in Serum or Plasma 2024-04-14 07:02:42 135 mEq/L F 132.0-146.0 Sodium [Moles/volume] in Serum or Plasma 2024-03-11 08:02:33 138 mEq/L F 132.0-146.0 Sodium [Moles/volume] in Serum or Plasma 2024-02-12 07:35:35 139 mEq/L F 132.0-146.0 Sodium [Moles/volume] in Serum or Plasma 2024-01-15 17:20:45 138 mEq/L F 132.0-146.0 Sodium [Moles/volume] in Serum or Plasma 2023-12-11 06:36:32 140 mEq/L F 132.0-146.0 Sodium [Moles/volume] in Serum or Plasma 2023-11-13 05:54:10 140 mEq/L F 132.0-146.0 Sodium [Moles/volume] in Serum or Plasma 2022-09-20 23:41:10 138 mEq/L F 132.0-146.0 Sodium [Moles/volume] in Serum or Plasma 2022-06-12 22:45:13 138 mEq/L F 132.0-146.0 Sodium [Moles/volume] in Serum or Plasma 2022-05-15 19:24:59 137 mEq/L F 132.0-146.0 Sodium [Moles/volume] in Serum or Plasma 2022-04-10 20:14:00 135 mEq/L F 132.0-146.0 Sodium [Moles/volume] in Serum or Plasma 2022-03-13 19:38:39 136 mEq/L F 132.0-146.0 Sodium [Moles/volume] in Serum or Plasma 2022-02-14 19:37:03 138 mEq/L F 132.0-146.0 Sodium [Moles/volume] in Serum or Plasma 2022-01-22 22:23:52 137 mEq/L F 132.0-146.0 General Description Draw Date Result/Unit Status Ref Range Result Comments Chloride [Moles/volume] in Serum or Plasma 2024-10-14 01:37:00 98 mEq/L F 98.0-107.0 Alanine aminotransferase [Enzymatic activity/volume] in Serum or Plasma 2024-10-13 18:47:22 13 U/L F 10.0-49.0 Aspartate aminotransferase [Enzymatic activity/volume] in Serum or Plasma 2024-10-13 18:47:22 16 U/L F 0.0-33.0 Aluminum [Mass/volume] in Serum or Plasma 2024-09-13 14:38:27 11 ug/L F 0.0-9.0 Aluminum [Mass/volume] in Serum or Plasma 2024-09-13 14:38:27 11 ug/L F 0.0-9.0 Chloride [Moles/volume] in Serum or Plasma 2024-09-11 04:53:44 98 mEq/L F 98.0-107.0 Chloride [Moles/volume] in Serum or Plasma 2024-09-11 04:53:44 98 mEq/L F 98.0-107.0 Aspartate aminotransferase [Enzymatic activity/volume] in Serum or Plasma 2024-09-11 01:14:13 16 U/L F 0.0-33.0 Alanine aminotransferase [Enzymatic activity/volume] in Serum or Plasma 2024-09-11 01:14:13 10 U/L F 10.0-49.0 Aspartate aminotransferase [Enzymatic activity/volume] in Serum or Plasma 2024-09-11 01:14:13 16 U/L F 0.0-33.0 Alanine aminotransferase [Enzymatic activity/volume] in Serum or Plasma 2024-09-11 01:14:13 10 U/L F 10.0-49.0 Chloride [Moles/volume] in Serum or Plasma 2024-08-02 23:41:07 99 mEq/L F 99.0-109.0 Chloride [Moles/volume] in Serum or Plasma 2024-08-02 23:41:07 99 mEq/L F 99.0-109.0 Aspartate aminotransferase [Enzymatic activity/volume] in Serum or Plasma 2024-08-02 20:30:21 12 U/L F 0.0-33.0 Alanine aminotransferase [Enzymatic activity/volume] in Serum or Plasma 2024-08-02 20:30:21 9 U/L F 10.0-49.0 Aspartate aminotransferase [Enzymatic activity/volume] in Serum or Plasma 2024-08-02 20:30:21 12 U/L F 0.0-33.0 Alanine aminotransferase [Enzymatic activity/volume] in Serum or Plasma 2024-08-02 20:30:21 9 U/L F 10.0-49.0 Chloride [Moles/volume] in Serum or Plasma 2024-07-29 18:29:20 F Canceled - Specimen not received 5 days past draw date Alanine aminotransferase [Enzymatic activity/volume] in Serum or Plasma 2024-07-29 18:29:20 F Canceled - Specimen not received 5 days past draw date Aspartate aminotransferase [Enzymatic activity/volume] in Serum or Plasma 2024-07-29 18:29:20 F Canceled - Specimen not received 5 days past draw date Chloride [Moles/volume] in Serum or Plasma 2024-06-10 06:17:08 96 mEq/L F 99.0-109.0 Aspartate aminotransferase [Enzymatic activity/volume] in Serum or Plasma 2024-06-10 01:15:23 24 U/L F 0.0-33.0 Alanine aminotransferase [Enzymatic activity/volume] in Serum or Plasma 2024-06-10 01:15:23 21 U/L F 10.0-49.0 Chloride [Moles/volume] in Serum or Plasma 2024-05-14 04:18:21 94 mEq/L F 99.0-109.0 Aspartate aminotransferase [Enzymatic activity/volume] in Serum or Plasma 2024-05-13 21:33:13 24 U/L F 0.0-33.0 Alanine aminotransferase [Enzymatic activity/volume] in Serum or Plasma 2024-05-13 21:33:13 17 U/L F 10.0-49.0 Chloride [Moles/volume] in Serum or Plasma 2024-04-14 07:02:42 98 mEq/L F 99.0-109.0 Aspartate aminotransferase [Enzymatic activity/volume] in Serum or Plasma 2024-04-13 15:18:23 12 U/L F 0.0-33.0 Alanine aminotransferase [Enzymatic activity/volume] in Serum or Plasma 2024-04-13 15:18:23 9 U/L F 10.0-49.0 Chloride [Moles/volume] in Serum or Plasma 2024-03-11 08:02:33 99 mEq/L F 99.0-109.0 Aspartate aminotransferase [Enzymatic activity/volume] in Serum or Plasma 2024-03-11 05:36:15 12 U/L F 0.0-33.0 Alanine aminotransferase [Enzymatic activity/volume] in Serum or Plasma 2024-03-11 05:36:15 10 U/L F 10.0-49.0 Chloride [Moles/volume] in Serum or Plasma 2024-02-12 07:35:35 98 mEq/L F 99.0-109.0 Aspartate aminotransferase [Enzymatic activity/volume] in Serum or Plasma 2024-02-11 18:08:26 22 U/L F 0.0-33.0 Alanine aminotransferase [Enzymatic activity/volume] in Serum or Plasma 2024-02-11 18:08:26 17 U/L F 10.0-49.0 Chloride [Moles/volume] in Serum or Plasma 2024-01-15 17:20:45 100 mEq/L F 99.0-109.0 Aspartate aminotransferase [Enzymatic activity/volume] in Serum or Plasma 2024-01-15 12:34:18 13 U/L F 0.0-33.0 Alanine aminotransferase [Enzymatic activity/volume] in Serum or Plasma 2024-01-15 12:34:18 14 U/L F 10.0-49.0 Chloride [Moles/volume] in Serum or Plasma 2023-12-11 06:36:32 100 mEq/L F 99.0-109.0 Aspartate aminotransferase [Enzymatic activity/volume] in Serum or Plasma 2023-12-11 03:50:17 11 U/L F 0.0-33.0 Alanine aminotransferase [Enzymatic activity/volume] in Serum or Plasma 2023-12-11 03:50:17 9 U/L F 10.0-49.0 Chloride [Moles/volume] in Serum or Plasma 2023-11-13 05:54:10 99 mEq/L F 99.0-109.0 Aspartate aminotransferase [Enzymatic activity/volume] in Serum or Plasma 2023-11-12 23:20:43 11 U/L F 0.0-33.0 Alanine aminotransferase [Enzymatic activity/volume] in Serum or Plasma 2023-11-12 23:20:43 9 U/L F 10.0-49.0 Chloride [Moles/volume] in Serum or Plasma 2023-09-06 05:34:41 94 mEq/L F 99.0-109.0 Aspartate aminotransferase [Enzymatic activity/volume] in Serum or Plasma 2023-09-06 00:09:33 15 U/L F 0.0-33.0 Alanine aminotransferase [Enzymatic activity/volume] in Serum or Plasma 2023-09-06 00:09:33 11 U/L F 10.0-49.0 Aluminum [Mass/volume] in Serum or Plasma 2022-09-23 14:34:08 11 ug/L F 0.0-9.0 Aspartate aminotransferase [Enzymatic activity/volume] in Serum or Plasma 2022-09-20 23:41:10 19 U/L F 0.0-33.0 Alanine aminotransferase [Enzymatic activity/volume] in Serum or Plasma 2022-09-20 23:41:10 20 U/L F 10.0-49.0 Chloride [Moles/volume] in Serum or Plasma 2022-09-20 23:41:10 98 mEq/L F 99.0-109.0 Aspartate aminotransferase [Enzymatic activity/volume] in Serum or Plasma 2022-06-12 22:45:13 15 U/L F 0.0-33.0 Alanine aminotransferase [Enzymatic activity/volume] in Serum or Plasma 2022-06-12 22:45:13 12 U/L F 10.0-49.0 Chloride [Moles/volume] in Serum or Plasma 2022-06-12 22:45:13 100 mEq/L F 99.0-109.0 Aspartate aminotransferase [Enzymatic activity/volume] in Serum or Plasma 2022-05-15 19:24:58 12 U/L F 0.0-33.0 Alanine aminotransferase [Enzymatic activity/volume] in Serum or Plasma 2022-05-15 19:24:58 10 U/L F 10.0-49.0 Chloride [Moles/volume] in Serum or Plasma 2022-05-15 19:24:58 101 mEq/L F 99.0-109.0 Aspartate aminotransferase [Enzymatic activity/volume] in Serum or Plasma 2022-04-10 20:14:00 14 U/L F 0.0-33.0 Alanine aminotransferase [Enzymatic activity/volume] in Serum or Plasma 2022-04-10 20:14:00 10 U/L F 10.0-49.0 Chloride [Moles/volume] in Serum or Plasma 2022-04-10 20:14:00 101 mEq/L F 99.0-109.0 Aspartate aminotransferase [Enzymatic activity/volume] in Serum or Plasma 2022-03-13 19:38:39 13 U/L F 0.0-33.0 Alanine aminotransferase [Enzymatic activity/volume] in Serum or Plasma 2022-03-13 19:38:39 15 U/L F 10.0-49.0 Chloride [Moles/volume] in Serum or Plasma 2022-03-13 19:38:39 100 mEq/L F 99.0-109.0 Chloride [Moles/volume] in Serum or Plasma 2022-02-14 19:37:03 104 mEq/L F 99.0-109.0 Aspartate aminotransferase [Enzymatic activity/volume] in Serum or Plasma 2022-02-14 19:37:03 13 U/L F 0.0-33.0 Aspartate aminotransferase [Enzymatic activity/volume] in Serum or Plasma 2022-01-22 22:23:52 12 U/L F 0.0-33.0 Chloride [Moles/volume] in Serum or Plasma 2022-01-22 22:23:52 97 mEq/L F 99.0-109.0 InfectionVaccination Description Draw Date Result/Unit Status Ref Range Result Comments Neutrophils/100 leukocytes in Blood by Automated count 2024-10-14 00:18:16 72.6 % F Basophils/100 leukocytes in Blood by Automated count 2024-10-14 00:18:16 0.9 % F Monocytes/100 leukocytes in Blood by Automated count 2024-10-14 00:18:16 7.6 % F Eosinophils/100 leukocytes in Blood by Automated count 2024-10-14 00:18:16 2.4 % F Lymphocytes/100 leukocytes in Blood by Automated count 2024-10-14 00:18:16 16.5 % F Leukocytes [#/volume] in Blood by Automated count 2024-10-14 00:18:16 6.5 x 10^3 cells/uL F 4.0-11.0 Neutrophils [#/volume] in Blood by Automated count 2024-10-14 00:18:16 4704 Cells/uL F 2000.0-8800. 0 Lymphocytes [#/volume] in Blood by Automated count 2024-10-14 00:18:16 1069 Cells/uL F 620.0-3660.0 Monocytes [#/volume] in Blood by Automated count 2024-10-14 00:18:16 492 Cells/uL F 0.0-1100.0 Basophils [#/volume] in Blood by Automated count 2024-10-14 00:18:16 58 Cells/uL F 0.0-400.0 Eosinophils [#/volume] in Blood by Automated count 2024-10-14 00:18:16 156 Cells/uL F 0.0-700.0 Lymphocytes/100 leukocytes in Blood by Automated count 2024-09-10 20:02:08 13.1 % F Neutrophils/100 leukocytes in Blood by Automated count 2024-09-10 20:02:08 72.4 % F Basophils/100 leukocytes in Blood by Automated count 2024-09-10 20:02:08 0.8 % F Monocytes/100 leukocytes in Blood by Automated count 2024-09-10 20:02:08 8.6 % F Eosinophils/100 leukocytes in Blood by Automated count 2024-09-10 20:02:08 5.1 % F Monocytes [#/volume] in Blood by Automated count 2024-09-10 20:02:08 636 Cells/uL F 0.0-1100.0 Basophils [#/volume] in Blood by Automated count 2024-09-10 20:02:08 59 Cells/uL F 0.0-400.0 Eosinophils [#/volume] in Blood by Automated count 2024-09-10 20:02:08 377 Cells/uL F 0.0-700.0 Neutrophils [#/volume] in Blood by Automated count 2024-09-10 20:02:08 5358 Cells/uL F 2000.0-8800. 0 Leukocytes [#/volume] in Blood by Automated count 2024-09-10 20:02:08 7.4 x 10^3 cells/uL F 4.0-11.0 Lymphocytes [#/volume] in Blood by Automated count 2024-09-10 20:02:08 969 Cells/uL F 620.0-3660.0 Lymphocytes/100 leukocytes in Blood by Automated count 2024-09-10 20:02:08 13.1 % F Neutrophils/100 leukocytes in Blood by Automated count 2024-09-10 20:02:08 72.4 % F Basophils/100 leukocytes in Blood by Automated count 2024-09-10 20:02:08 0.8 % F Monocytes/100 leukocytes in Blood by Automated count 2024-09-10 20:02:08 8.6 % F Eosinophils/100 leukocytes in Blood by Automated count 2024-09-10 20:02:08 5.1 % F Monocytes [#/volume] in Blood by Automated count 2024-09-10 20:02:08 636 Cells/uL F 0.0-1100.0 Basophils [#/volume] in Blood by Automated count 2024-09-10 20:02:08 59 Cells/uL F 0.0-400.0 Eosinophils [#/volume] in Blood by Automated count 2024-09-10 20:02:08 377 Cells/uL F 0.0-700.0 Neutrophils [#/volume] in Blood by Automated count 2024-09-10 20:02:08 5358 Cells/uL F 2000.0-8800. 0 Leukocytes [#/volume] in Blood by Automated count 2024-09-10 20:02:08 7.4 x 10^3 cells/uL F 4.0-11.0 Lymphocytes [#/volume] in Blood by Automated count 2024-09-10 20:02:08 969 Cells/uL F 620.0-3660.0 Eosinophils/100 leukocytes in Blood by Automated count 2024-08-02 22:05:08 3.7 % F Basophils/100 leukocytes in Blood by Automated count 2024-08-02 22:05:08 0.6 % F Monocytes/100 leukocytes in Blood by Automated count 2024-08-02 22:05:08 6.8 % F Lymphocytes/100 leukocytes in Blood by Automated count 2024-08-02 22:05:08 11.6 % F Neutrophils/100 leukocytes in Blood by Automated count 2024-08-02 22:05:08 77.3 % F Monocytes [#/volume] in Blood by Automated count 2024-08-02 22:05:08 625 Cells/uL F 0.0-1100.0 Basophils [#/volume] in Blood by Automated count 2024-08-02 22:05:08 55 Cells/uL F 0.0-400.0 Eosinophils [#/volume] in Blood by Automated count 2024-08-02 22:05:08 340 Cells/uL F 0.0-700.0 Neutrophils [#/volume] in Blood by Automated count 2024-08-02 22:05:08 7104 Cells/uL F 2000.0-8800. 0 Leukocytes [#/volume] in Blood by Automated count 2024-08-02 22:05:08 9.2 x 10^3 cells/uL F 4.0-11.0 Lymphocytes [#/volume] in Blood by Automated count 2024-08-02 22:05:08 1066 Cells/uL F 620.0-3660.0 Eosinophils/100 leukocytes in Blood by Automated count 2024-08-02 22:05:08 3.7 % F Neutrophils/100 leukocytes in Blood by Automated count 2024-08-02 22:05:08 77.3 % F Basophils/100 leukocytes in Blood by Automated count 2024-08-02 22:05:08 0.6 % F Lymphocytes/100 leukocytes in Blood by Automated count 2024-08-02 22:05:08 11.6 % F Monocytes/100 leukocytes in Blood by Automated count 2024-08-02 22:05:08 6.8 % F Monocytes [#/volume] in Blood by Automated count 2024-08-02 22:05:08 625 Cells/uL F 0.0-1100.0 Basophils [#/volume] in Blood by Automated count 2024-08-02 22:05:08 55 Cells/uL F 0.0-400.0 Eosinophils [#/volume] in Blood by Automated count 2024-08-02 22:05:08 340 Cells/uL F 0.0-700.0 Neutrophils [#/volume] in Blood by Automated count 2024-08-02 22:05:08 7104 Cells/uL F 2000.0-8800. 0 Leukocytes [#/volume] in Blood by Automated count 2024-08-02 22:05:08 9.2 x 10^3 cells/uL F 4.0-11.0 Lymphocytes [#/volume] in Blood by Automated count 2024-08-02 22:05:08 1066 Cells/uL F 620.0-3660.0 Eosinophils/100 leukocytes in Blood by Automated count 2024-07-24 07:20:39 F Canceled - Specimen not received 5 days past draw date,Canceled - Specimen not received 5 days past draw date Leukocytes [#/volume] in Blood by Automated count 2024-07-24 07:20:39 F Canceled - Specimen not received 5 days past draw date,Canceled - Specimen not received 5 days past draw date Monocytes [#/volume] in Blood by Automated count 2024-07-24 07:20:39 F Canceled - Specimen not received 5 days past draw date,Canceled - Specimen not received 5 days past draw date Neutrophils [#/volume] in Blood by Automated count 2024-07-24 07:20:39 F Canceled - Specimen not received 5 days past draw date,Canceled - Specimen not received 5 days past draw date Lymphocytes [#/volume] in Blood by Automated count 2024-07-24 07:20:39 F Canceled - Specimen not received 5 days past draw date,Canceled - Specimen not received 5 days past draw date Basophils/100 leukocytes in Blood by Automated count 2024-07-24 07:20:39 F Canceled - Specimen not received 5 days past draw date,Canceled - Specimen not received 5 days past draw date Eosinophils [#/volume] in Blood by Automated count 2024-07-24 07:20:39 F Canceled - Specimen not received 5 days past draw date,Canceled - Specimen not received 5 days past draw date Monocytes/100 leukocytes in Blood by Automated count 2024-07-24 07:20:39 F Canceled - Specimen not received 5 days past draw date,Canceled - Specimen not received 5 days past draw date Lymphocytes/100 leukocytes in Blood by Automated count 2024-07-24 07:20:39 F Canceled - Specimen not received 5 days past draw date,Canceled - Specimen not received 5 days past draw date Neutrophils/100 leukocytes in Blood by Automated count 2024-07-24 07:20:39 F Canceled - Specimen not received 5 days past draw date,Canceled - Specimen not received 5 days past draw date Basophils [#/volume] in Blood by Automated count 2024-07-24 07:20:39 F Canceled - Specimen not received 5 days past draw date,Canceled - Specimen not received 5 days past draw date Monocytes/100 leukocytes in Blood by Automated count 2024-07-24 07:20:39 F Canceled - Specimen not received 5 days past draw date Lymphocytes/100 leukocytes in Blood by Automated count 2024-07-24 07:20:39 F Canceled - Specimen not received 5 days past draw date Eosinophils/100 leukocytes in Blood by Automated count 2024-07-24 07:20:39 F Canceled - Specimen not received 5 days past draw date Basophils/100 leukocytes in Blood by Automated count 2024-07-24 07:20:39 F Canceled - Specimen not received 5 days past draw date Eosinophils [#/volume] in Blood by Automated count 2024-07-24 07:20:39 F Canceled - Specimen not received 5 days past draw date Neutrophils [#/volume] in Blood by Automated count 2024-07-24 07:20:39 F Canceled - Specimen not received 5 days past draw date Monocytes [#/volume] in Blood by Automated count 2024-07-24 07:20:39 F Canceled - Specimen not received 5 days past draw date Leukocytes [#/volume] in Blood by Automated count 2024-07-24 07:20:39 F Canceled - Specimen not received 5 days past draw date Lymphocytes [#/volume] in Blood by Automated count 2024-07-24 07:20:39 F Canceled - Specimen not received 5 days past draw date Neutrophils/100 leukocytes in Blood by Automated count 2024-07-24 07:20:39 F Canceled - Specimen not received 5 days past draw date Basophils [#/volume] in Blood by Automated count 2024-07-24 07:20:39 F Canceled - Specimen not received 5 days past draw date Monocytes/100 leukocytes in Blood by Automated count 2024-06-09 22:29:12 9.5 % F Lymphocytes/100 leukocytes in Blood by Automated count 2024-06-09 22:29:12 17.7 % F Eosinophils/100 leukocytes in Blood by Automated count 2024-06-09 22:29:12 3.8 % F Neutrophils/100 leukocytes in Blood by Automated count 2024-06-09 22:29:12 68.2 % F Basophils/100 leukocytes in Blood by Automated count 2024-06-09 22:29:12 0.7 % F Monocytes [#/volume] in Blood by Automated count 2024-06-09 22:29:12 662 Cells/uL F 0.0-1100.0 Basophils [#/volume] in Blood by Automated count 2024-06-09 22:29:12 49 Cells/uL F 0.0-400.0 Eosinophils [#/volume] in Blood by Automated count 2024-06-09 22:29:12 265 Cells/uL F 0.0-700.0 Neutrophils [#/volume] in Blood by Automated count 2024-06-09 22:29:12 4754 Cells/uL F 2000.0-8800. 0 Leukocytes [#/volume] in Blood by Automated count 2024-06-09 22:29:12 7 x 10^3 cells/uL F 4.0-11.0 Lymphocytes [#/volume] in Blood by Automated count 2024-06-09 22:29:12 1234 Cells/uL F 620.0-3660.0 Eosinophils/100 leukocytes in Blood by Automated count 2024-05-14 02:26:13 4 % F Monocytes/100 leukocytes in Blood by Automated count 2024-05-14 02:26:13 8.9 % F Basophils/100 leukocytes in Blood by Automated count 2024-05-14 02:26:13 2.3 % F Lymphocytes/100 leukocytes in Blood by Automated count 2024-05-14 02:26:13 14.2 % F Monocytes [#/volume] in Blood by Automated count 2024-05-14 02:26:13 591 Cells/uL F 0.0-1100.0 Neutrophils/100 leukocytes in Blood by Automated count 2024-05-14 02:26:13 70.6 % F Basophils [#/volume] in Blood by Automated count 2024-05-14 02:26:13 153 Cells/uL F 0.0-400.0 Eosinophils [#/volume] in Blood by Automated count 2024-05-14 02:26:13 266 Cells/uL F 0.0-700.0 Neutrophils [#/volume] in Blood by Automated count 2024-05-14 02:26:13 4688 Cells/uL F 2000.0-8800. 0 Leukocytes [#/volume] in Blood by Automated count 2024-05-14 02:26:13 6.6 x 10^3 cells/uL F 4.0-11.0 Lymphocytes [#/volume] in Blood by Automated count 2024-05-14 02:26:13 943 Cells/uL F 620.0-3660.0 Monocytes [#/volume] in Blood by Automated count 2024-04-15 18:15:59 F Recollect - lab error accident Eosinophils [#/volume] in Blood by Automated count 2024-04-15 18:15:59 F Recollect - lab error accident Neutrophils [#/volume] in Blood by Automated count 2024-04-15 18:15:59 F Recollect - lab error accident Eosinophils/100 leukocytes in Blood by Automated count 2024-04-15 18:15:59 F Recollect - lab error accident Lymphocytes/100 leukocytes in Blood by Automated count 2024-04-15 18:15:59 F Recollect - lab error accident Neutrophils/100 leukocytes in Blood by Automated count 2024-04-15 18:15:59 F Recollect - lab error accident Monocytes/100 leukocytes in Blood by Automated count 2024-04-15 18:15:59 F Recollect - lab error accident Basophils/100 leukocytes in Blood by Automated count 2024-04-15 18:15:59 F Recollect - lab error accident Basophils [#/volume] in Blood by Automated count 2024-04-15 18:15:59 F Recollect - lab error accident Lymphocytes [#/volume] in Blood by Automated count 2024-04-15 18:15:59 F Recollect - lab error accident Leukocytes [#/volume] in Blood by Automated count 2024-04-15 18:15:59 F Recollect - lab error accident Lymphocytes/100 leukocytes in Blood by Automated count 2024-03-11 06:23:07 17.3 % F Basophils/100 leukocytes in Blood by Automated count 2024-03-11 06:23:07 0.5 % F Eosinophils/100 leukocytes in Blood by Automated count 2024-03-11 06:23:07 3.5 % F Neutrophils/100 leukocytes in Blood by Automated count 2024-03-11 06:23:07 69.5 % F Monocytes/100 leukocytes in Blood by Automated count 2024-03-11 06:23:07 9.3 % F Monocytes [#/volume] in Blood by Automated count 2024-03-11 06:23:07 694 Cells/uL F 0.0-1100.0 Basophils [#/volume] in Blood by Automated count 2024-03-11 06:23:07 37 Cells/uL F 0.0-400.0 Eosinophils [#/volume] in Blood by Automated count 2024-03-11 06:23:07 261 Cells/uL F 0.0-700.0 Neutrophils [#/volume] in Blood by Automated count 2024-03-11 06:23:07 5185 Cells/uL F 2000.0-8800. 0 Leukocytes [#/volume] in Blood by Automated count 2024-03-11 06:23:07 7.5 x 10^3 cells/uL F 4.0-11.0 Lymphocytes [#/volume] in Blood by Automated count 2024-03-11 06:23:07 1291 Cells/uL F 620.0-3660.0 Neutrophils/100 leukocytes in Blood by Automated count 2024-02-12 01:51:16 75.6 % F Lymphocytes/100 leukocytes in Blood by Automated count 2024-02-12 01:51:16 11.2 % F Basophils/100 leukocytes in Blood by Automated count 2024-02-12 01:51:16 0.2 % F Eosinophils/100 leukocytes in Blood by Automated count 2024-02-12 01:51:16 3.5 % F Monocytes [#/volume] in Blood by Automated count 2024-02-12 01:51:16 694 Cells/uL F 0.0-1100.0 Monocytes/100 leukocytes in Blood by Automated count 2024-02-12 01:51:16 9.5 % F Basophils [#/volume] in Blood by Automated count 2024-02-12 01:51:16 15 Cells/uL F 0.0-400.0 Eosinophils [#/volume] in Blood by Automated count 2024-02-12 01:51:16 256 Cells/uL F 0.0-700.0 Neutrophils [#/volume] in Blood by Automated count 2024-02-12 01:51:16 5526 Cells/uL F 2000.0-8800. 0 Leukocytes [#/volume] in Blood by Automated count 2024-02-12 01:51:16 7.3 x 10^3 cells/uL F 4.0-11.0 Lymphocytes [#/volume] in Blood by Automated count 2024-02-12 01:51:16 819 Cells/uL F 620.0-3660.0 Leukocytes [#/volume] in Blood by Automated count 2024-01-16 14:11:14 F RECOLLECT - OUTDATED SPECIMEN Monocytes [#/volume] in Blood by Automated count 2024-01-16 14:11:14 F RECOLLECT - OUTDATED SPECIMEN Eosinophils [#/volume] in Blood by Automated count 2024-01-16 14:11:14 F RECOLLECT - OUTDATED SPECIMEN Lymphocytes [#/volume] in Blood by Automated count 2024-01-16 14:11:14 F RECOLLECT - OUTDATED SPECIMEN Neutrophils/100 leukocytes in Blood by Automated count 2024-01-16 14:11:14 F RECOLLECT - OUTDATED SPECIMEN Monocytes/100 leukocytes in Blood by Automated count 2024-01-16 14:11:14 F RECOLLECT - OUTDATED SPECIMEN Basophils [#/volume] in Blood by Automated count 2024-01-16 14:11:14 F RECOLLECT - OUTDATED SPECIMEN Eosinophils/100 leukocytes in Blood by Automated count 2024-01-16 14:11:14 F RECOLLECT - OUTDATED SPECIMEN Basophils/100 leukocytes in Blood by Automated count 2024-01-16 14:11:14 F RECOLLECT - OUTDATED SPECIMEN Neutrophils [#/volume] in Blood by Automated count 2024-01-16 14:11:14 F RECOLLECT - OUTDATED SPECIMEN Lymphocytes/100 leukocytes in Blood by Automated count 2024-01-16 14:11:14 F RECOLLECT - OUTDATED SPECIMEN Eosinophils/100 leukocytes in Blood by Automated count 2023-12-10 21:16:23 3.3 % F Basophils [#/volume] in Blood by Automated count 2023-12-10 21:16:23 78 Cell/uL F 0.0-400.0 Leukocytes [#/volume] in Blood by Automated count 2023-12-10 21:16:23 7.1 x 10^3 cells/uL F 4.0-11.0 Lymphocytes/100 leukocytes in Blood by Automated count 2023-12-10 21:16:21 16.4 % F Monocytes/100 leukocytes in Blood by Automated count 2023-12-10 21:16:21 6.8 % F Basophils/100 leukocytes in Blood by Automated count 2023-12-10 21:16:21 1.1 % F Neutrophils/100 leukocytes in Blood by Automated count 2023-12-10 21:16:21 72.4 % F Monocytes [#/volume] in Blood by Automated count 2023-12-10 21:16:21 484 Cell/uL F 0.0-1100.0 Eosinophils [#/volume] in Blood by Automated count 2023-12-10 21:16:21 235 Cell/uL F 0.0-700.0 Neutrophils [#/volume] in Blood by Automated count 2023-12-10 21:16:21 5155 Cell/uL F 2000.0-8800. 0 Lymphocytes [#/volume] in Blood by Automated count 2023-12-10 21:16:21 1168 Cell/uL F 620.0-3660.0 Lymphocytes/100 leukocytes in Blood by Automated count 2023-11-13 04:35:41 12.2 % F Lymphocytes [#/volume] in Blood by Automated count 2023-11-13 04:35:41 750 Cell/uL F 620.0-3660.0 Basophils [#/volume] in Blood by Automated count 2023-11-13 04:35:39 37 Cell/uL F 0.0-400.0 Basophils/100 leukocytes in Blood by Automated count 2023-11-13 04:35:36 0.6 % F Eosinophils/100 leukocytes in Blood by Automated count 2023-11-13 04:35:36 2.8 % F Monocytes/100 leukocytes in Blood by Automated count 2023-11-13 04:35:36 6.6 % F Neutrophils/100 leukocytes in Blood by Automated count 2023-11-13 04:35:36 77.9 % F Monocytes [#/volume] in Blood by Automated count 2023-11-13 04:35:36 406 Cell/uL F 0.0-1100.0 Eosinophils [#/volume] in Blood by Automated count 2023-11-13 04:35:36 172 Cell/uL F 0.0-700.0 Neutrophils [#/volume] in Blood by Automated count 2023-11-13 04:35:36 4791 Cell/uL F 2000.0-8800. 0 Leukocytes [#/volume] in Blood by Automated count 2023-11-13 04:35:36 6.2 x 10^3 cells/uL F 4.0-11.0 Basophils/100 leukocytes in Blood by Automated count 2023-09-05 22:50:31 0.9 % F Leukocytes [#/volume] in Blood by Automated count 2023-09-05 22:50:31 7.6 x 10^3 cells/uL F 4.0-11.0 Lymphocytes/100 leukocytes in Blood by Automated count 2023-09-05 22:50:28 18.5 % F Eosinophils/100 leukocytes in Blood by Automated count 2023-09-05 22:50:28 3.5 % F Neutrophils/100 leukocytes in Blood by Automated count 2023-09-05 22:50:28 68.1 % F Monocytes/100 leukocytes in Blood by Automated count 2023-09-05 22:50:28 9 % F Monocytes [#/volume] in Blood by Automated count 2023-09-05 22:50:28 681 Cell/uL F 0.0-1100.0 Basophils [#/volume] in Blood by Automated count 2023-09-05 22:50:28 68 Cell/uL F 0.0-400.0 Eosinophils [#/volume] in Blood by Automated count 2023-09-05 22:50:28 265 Cell/uL F 0.0-700.0 Neutrophils [#/volume] in Blood by Automated count 2023-09-05 22:50:28 5155 Cell/uL F 2000.0-8800. 0 Lymphocytes [#/volume] in Blood by Automated count 2023-09-05 22:50:28 1400 Cell/uL F 620.0-3660.0 Eosinophils/100 leukocytes in Blood by Automated count 2022-09-20 17:12:08 6.7 % F Lymphocytes/100 leukocytes in Blood by Automated count 2022-09-20 17:12:08 11.8 % F Basophils/100 leukocytes in Blood by Automated count 2022-09-20 17:12:08 0.2 % F Monocytes/100 leukocytes in Blood by Automated count 2022-09-20 17:12:08 9.7 % F Neutrophils/100 leukocytes in Blood by Automated count 2022-09-20 17:12:08 71.5 % F Monocytes [#/volume] in Blood by Automated count 2022-09-20 17:12:08 842 Cell/uL F 0.0-1100.0 Basophils [#/volume] in Blood by Automated count 2022-09-20 17:12:08 17 Cell/uL F 0.0-400.0 Eosinophils [#/volume] in Blood by Automated count 2022-09-20 17:12:08 582 Cell/uL F 0.0-700.0 Neutrophils [#/volume] in Blood by Automated count 2022-09-20 17:12:08 6206 Cell/uL F 2000.0-8800. 0 Leukocytes [#/volume] in Blood by Automated count 2022-09-20 17:12:08 8.7 x 10^3 cells/uL F 4.0-11.0 Lymphocytes [#/volume] in Blood by Automated count 2022-09-20 17:12:08 1024 Cell/uL F 620.0-3660.0 Lymphocytes/100 leukocytes in Blood by Automated count 2022-06-12 23:12:18 13.1 % F Basophils [#/volume] in Blood by Automated count 2022-06-12 23:12:18 43.95 Cell/uL F 0.0-400.0 Eosinophils [#/volume] in Blood by Automated count 2022-06-12 23:12:18 237.33 Cell/uL F 0.0-700.0 Lymphocytes [#/volume] in Blood by Automated count 2022-06-12 23:12:18 1151.49 Cell/uL F 1100.0-4800. 0 Eosinophils/100 leukocytes in Blood by Automated count 2022-06-12 23:12:15 2.7 % F Monocytes/100 leukocytes in Blood by Automated count 2022-06-12 23:12:15 8 % F Basophils/100 leukocytes in Blood by Automated count 2022-06-12 23:12:15 0.5 % F Neutrophils/100 leukocytes in Blood by Automated count 2022-06-12 23:12:15 75.8 % F Monocytes [#/volume] in Blood by Automated count 2022-06-12 23:12:15 703.2 Cell/uL F 0.0-1100.0 Neutrophils [#/volume] in Blood by Automated count 2022-06-12 23:12:15 6662.82 Cell/uL F 2000.0-8800. 0 Leukocytes [#/volume] in Blood by Automated count 2022-06-12 23:12:15 8.8 x 10^3 cells/uL F 4.5-11.0 Eosinophils/100 leukocytes in Blood by Automated count 2022-05-16 01:04:55 5.1 % F Monocytes/100 leukocytes in Blood by Automated count 2022-05-16 01:04:55 7.3 % F Neutrophils/100 leukocytes in Blood by Automated count 2022-05-16 01:04:55 74.3 % F Basophils/100 leukocytes in Blood by Automated count 2022-05-16 01:04:55 0.4 % F Lymphocytes/100 leukocytes in Blood by Automated count 2022-05-16 01:04:55 12.8 % F Monocytes [#/volume] in Blood by Automated count 2022-05-16 01:04:55 753.36 Cell/uL F 0.0-1100.0 Basophils [#/volume] in Blood by Automated count 2022-05-16 01:04:55 41.28 Cell/uL F 0.0-400.0 Eosinophils [#/volume] in Blood by Automated count 2022-05-16 01:04:55 526.32 Cell/uL F 0.0-700.0 Lymphocytes [#/volume] in Blood by Automated count 2022-05-16 01:04:55 1320.96 Cell/uL F 1100.0-4800. 0 Neutrophils [#/volume] in Blood by Automated count 2022-05-16 01:04:55 7667.76 Cell/uL F 2000.0-8800. 0 Leukocytes [#/volume] in Blood by Automated count 2022-05-16 01:04:55 10.3 x 10^3 cells/uL F 4.5-11.0 Basophils/100 leukocytes in Blood by Automated count 2022-04-10 17:59:50 1.2 % F Monocytes/100 leukocytes in Blood by Automated count 2022-04-10 17:59:50 7.5 % F Neutrophils/100 leukocytes in Blood by Automated count 2022-04-10 17:59:50 74.9 % F Lymphocytes [#/volume] in Blood by Automated count 2022-04-10 17:59:50 1232.84 Cell/uL F 1100.0-4800. 0 Neutrophils [#/volume] in Blood by Automated count 2022-04-10 17:59:50 7759.64 Cell/uL F 2000.0-8800. 0 Leukocytes [#/volume] in Blood by Automated count 2022-04-10 17:59:50 10.4 x 10^3 cells/uL F 4.5-11.0 Eosinophils/100 leukocytes in Blood by Automated count 2022-04-10 17:59:48 4.5 % F Lymphocytes/100 leukocytes in Blood by Automated count 2022-04-10 17:59:48 11.9 % F Monocytes [#/volume] in Blood by Automated count 2022-04-10 17:59:48 777 Cell/uL F 0.0-1100.0 Basophils [#/volume] in Blood by Automated count 2022-04-10 17:59:48 124.32 Cell/uL F 0.0-400.0 Eosinophils [#/volume] in Blood by Automated count 2022-04-10 17:59:48 466.2 Cell/uL F 0.0-700.0 Monocytes/100 leukocytes in Blood by Automated count 2022-03-14 00:55:38 9.8 % F Basophils/100 leukocytes in Blood by Automated count 2022-03-14 00:55:38 0.6 % F Eosinophils/100 leukocytes in Blood by Automated count 2022-03-14 00:55:38 4.6 % F Lymphocytes/100 leukocytes in Blood by Automated count 2022-03-14 00:55:38 17.7 % F Neutrophils/100 leukocytes in Blood by Automated count 2022-03-14 00:55:38 67.2 % F Monocytes [#/volume] in Blood by Automated count 2022-03-14 00:55:38 830.06 Cell/uL F 0.0-1100.0 Basophils [#/volume] in Blood by Automated count 2022-03-14 00:55:38 50.82 Cell/uL F 0.0-400.0 Eosinophils [#/volume] in Blood by Automated count 2022-03-14 00:55:38 389.62 Cell/uL F 0.0-700.0 Lymphocytes [#/volume] in Blood by Automated count 2022-03-14 00:55:38 1499.19 Cell/uL F 1100.0-4800. 0 Neutrophils [#/volume] in Blood by Automated count 2022-03-14 00:55:38 5691.84 Cell/uL F 2000.0-8800. 0 Leukocytes [#/volume] in Blood by Automated count 2022-03-14 00:55:38 8.5 x 10^3 cells/uL F 4.5-11.0 Lymphocytes/100 leukocytes in Blood by Automated count 2022-02-14 15:03:52 16.4 % F Lymphocytes [#/volume] in Blood by Automated count 2022-02-14 15:03:52 1226.72 Cell/uL F 1100.0-4800. 0 Neutrophils [#/volume] in Blood by Automated count 2022-02-14 15:03:50 5333.24 Cell/uL F 2000.0-8800. 0 Leukocytes [#/volume] in Blood by Automated count 2022-02-14 15:03:50 7.5 x 10^3 cells/uL F 4.5-11.0 Neutrophils/100 leukocytes in Blood by Automated count 2022-02-14 15:03:50 71.3 % F Basophils/100 leukocytes in Blood by Automated count 2022-02-14 15:03:50 0.7 % F Eosinophils/100 leukocytes in Blood by Automated count 2022-02-14 15:03:50 4.1 % F Monocytes/100 leukocytes in Blood by Automated count 2022-02-14 15:03:50 7.6 % F Monocytes [#/volume] in Blood by Automated count 2022-02-14 15:03:50 568.48 Cell/uL F 0.0-1100.0 Basophils [#/volume] in Blood by Automated count 2022-02-14 15:03:50 52.36 Cell/uL F 0.0-400.0 Eosinophils [#/volume] in Blood by Automated count 2022-02-14 15:03:50 306.68 Cell/uL F 0.0-700.0 Lymphocytes/100 leukocytes in Blood by Automated count 2022-01-22 15:12:20 20.8 % F Basophils/100 leukocytes in Blood by Automated count 2022-01-22 15:12:20 1 % F Eosinophils/100 leukocytes in Blood by Automated count 2022-01-22 15:12:20 5.1 % F Monocytes/100 leukocytes in Blood by Automated count 2022-01-22 15:12:20 11.2 % F Neutrophils/100 leukocytes in Blood by Automated count 2022-01-22 15:12:20 61.9 % F Monocytes [#/volume] in Blood by Automated count 2022-01-22 15:12:20 651.84 Cell/uL F 0.0-1100.0 Basophils [#/volume] in Blood by Automated count 2022-01-22 15:12:20 58.2 Cell/uL F 0.0-400.0 Eosinophils [#/volume] in Blood by Automated count 2022-01-22 15:12:20 296.82 Cell/uL F 0.0-700.0 Lymphocytes [#/volume] in Blood by Automated count 2022-01-22 15:12:20 1210.56 Cell/uL F 1100.0-4800. 0 Neutrophils [#/volume] in Blood by Automated count 2022-01-22 15:12:20 3602.58 Cell/uL F 2000.0-8800. 0 Leukocytes [#/volume] in Blood by Automated count 2022-01-22 15:12:20 5.8 x 10^3 cells/uL F 4.5-11.0 MineralBone Disorder Description Draw Date Result/Unit Status Ref Range Result Comments CA CORRECTED 2024-10-14 02:06:18 8.7 mg/dL F CA/PHOS PRODUCT 2024-10-14 02:04:24 37.4 Calc F 21.0-53.0 CA*PO4 CORRCTD 2024-10-14 02:04:24 37.4 Calc F 21.0-53.0 Calcium [Mass/volume] in Serum or Plasma 2024-10-14 01:37:00 8.7 mg/dL F 8.7-10.4 Parathyrin.intact [Mass/volume] in Serum or Plasma 2024-10-14 01:33:22 3028 pg/mL F 18.0-80.0 Phosphate [Mass/volume] in Serum or Plasma 2024-10-13 18:47:22 4.3 mg/dL F 2.4-5.1 Alkaline phosphatase [Enzymatic activity/volume] in Serum or Plasma 2024-10-13 18:47:22 250 U/L F 46.0-116.0 CA CORRECTED 2024-09-11 09:42:33 9 mg/dL F CA CORRECTED 2024-09-11 09:42:33 9 mg/dL F CA/PHOS PRODUCT 2024-09-11 07:44:21 39.6 Calc F 21.0-53.0 CA*PO4 CORRCTD 2024-09-11 07:44:21 39.6 Calc F 21.0-53.0 CA/PHOS PRODUCT 2024-09-11 07:44:21 39.6 Calc F 21.0-53.0 CA*PO4 CORRCTD 2024-09-11 07:44:21 39.6 Calc F 21.0-53.0 25-Hydroxyvitamin D3+25-Hydroxyvitamin D2 [Mass/volume] in Serum or Plasma 2024-09-11 07:27:38 21.7 ng/mL F 25-Hydroxyvitamin D3+25-Hydroxyvitamin D2 [Mass/volume] in Serum or Plasma 2024-09-11 07:27:38 21.7 ng/mL F Calcium [Mass/volume] in Serum or Plasma 2024-09-11 04:53:44 9 mg/dL F 8.7-10.4 Calcium [Mass/volume] in Serum or Plasma 2024-09-11 04:53:44 9 mg/dL F 8.7-10.4 Phosphate [Mass/volume] in Serum or Plasma 2024-09-11 01:14:13 4.4 mg/dL F 2.4-5.1 Alkaline phosphatase [Enzymatic activity/volume] in Serum or Plasma 2024-09-11 01:14:13 253 U/L F 46.0-116.0 Phosphate [Mass/volume] in Serum or Plasma 2024-09-11 01:14:13 4.4 mg/dL F 2.4-5.1 Alkaline phosphatase [Enzymatic activity/volume] in Serum or Plasma 2024-09-11 01:14:13 253 U/L F 46.0-116.0 Parathyrin.intact [Mass/volume] in Serum or Plasma 2024-09-10 19:34:18 1845 pg/mL F 18.0-80.0 Parathyrin.intact [Mass/volume] in Serum or Plasma 2024-09-10 19:34:18 1845 pg/mL F 18.0-80.0 Parathyrin.intact [Mass/volume] in Serum or Plasma 2024-08-18 19:23:11 2131 pg/mL F 18.0-80.0 Parathyrin.intact [Mass/volume] in Serum or Plasma 2024-08-18 19:23:11 2131 pg/mL F 18.0-80.0 CA CORRECTED 2024-08-03 00:30:20 9 mg/dL F CA CORRECTED 2024-08-03 00:30:20 9 mg/dL F CA/PHOS PRODUCT 2024-08-03 00:27:04 49.3 Calc F 21.0-53.0 CA*PO4 CORRCTD 2024-08-03 00:27:04 50.6 Calc F 21.0-53.0 CA*PO4 CORRCTD 2024-08-03 00:27:04 50.6 Calc F 21.0-53.0 CA/PHOS PRODUCT 2024-08-03 00:27:04 49.3 Calc F 21.0-53.0 Phosphate [Mass/volume] in Serum or Plasma 2024-08-02 23:41:07 5.6 mg/dL F 2.4-5.1 Calcium [Mass/volume] in Serum or Plasma 2024-08-02 23:41:07 8.8 mg/dL F 8.7-10.4 Phosphate [Mass/volume] in Serum or Plasma 2024-08-02 23:41:07 5.6 mg/dL F 2.4-5.1 Calcium [Mass/volume] in Serum or Plasma 2024-08-02 23:41:07 8.8 mg/dL F 8.7-10.4 Alkaline phosphatase [Enzymatic activity/volume] in Serum or Plasma 2024-08-02 20:30:21 199 U/L F 46.0-116.0 Alkaline phosphatase [Enzymatic activity/volume] in Serum or Plasma 2024-08-02 20:30:21 199 U/L F 46.0-116.0 Parathyrin.intact [Mass/volume] in Serum or Plasma 2024-08-02 16:57:46 F CANCELED - TEST CANCELED,CANCELED - TEST CANCELED Parathyrin.intact [Mass/volume] in Serum or Plasma 2024-08-02 16:57:46 F CANCELED - TEST CANCELED CA*PO4 CORRCTD 2024-07-29 18:48:07 see comments F 21.0-46.0 Unable to Calculate. CA/PHOS PRODUCT 2024-07-29 18:48:07 see comments F 21.0-46.0 Unable to Calculate. Phosphate [Mass/volume] in Serum or Plasma 2024-07-29 18:29:21 F Canceled - Specimen not received 5 days past draw date Calcium [Mass/volume] in Serum or Plasma 2024-07-29 18:29:21 F Canceled - Specimen not received 5 days past draw date Alkaline phosphatase [Enzymatic activity/volume] in Serum or Plasma 2024-07-29 18:29:20 F Canceled - Specimen not received 5 days past draw date Parathyrin.intact [Mass/volume] in Serum or Plasma 2024-07-24 07:21:30 F Canceled - Specimen not received 5 days past draw date,Canceled - Specimen not received 5 days past draw date Parathyrin.intact [Mass/volume] in Serum or Plasma 2024-07-24 07:21:30 F Canceled - Specimen not received 5 days past draw date CA CORRECTED 2024-06-10 06:20:54 8.9 mg/dL F CA*PO4 CORRCTD 2024-06-10 06:19:31 50.7 Calc F 21.0-53.0 CA/PHOS PRODUCT 2024-06-10 06:19:31 50.7 Calc F 21.0-53.0 Phosphate [Mass/volume] in Serum or Plasma 2024-06-10 06:17:08 5.7 mg/dL F 2.4-5.1 Calcium [Mass/volume] in Serum or Plasma 2024-06-10 06:17:08 8.9 mg/dL F 8.7-10.4 Alkaline phosphatase [Enzymatic activity/volume] in Serum or Plasma 2024-06-10 01:15:23 189 U/L F 46.0-116.0 25-Hydroxyvitamin D3+25-Hydroxyvitamin D2 [Mass/volume] in Serum or Plasma 2024-06-09 21:47:56 17.7 ng/mL F Parathyrin.intact [Mass/volume] in Serum or Plasma 2024-06-09 15:35:25 1816 pg/mL F 18.0-80.0 CA CORRECTED 2024-05-14 07:21:14 8.9 mg/dL F CA*PO4 CORRCTD 2024-05-14 07:18:20 69.4 Calc F 21.0-53.0 CA/PHOS PRODUCT 2024-05-14 07:18:20 69.4 Calc F 21.0-53.0 Phosphate [Mass/volume] in Serum or Plasma 2024-05-14 04:18:21 7.8 mg/dL F 2.4-5.1 Calcium [Mass/volume] in Serum or Plasma 2024-05-14 04:18:21 8.9 mg/dL F 8.7-10.4 Parathyrin.intact [Mass/volume] in Serum or Plasma 2024-05-14 01:56:14 2977 pg/mL F 18.0-80.0 Alkaline phosphatase [Enzymatic activity/volume] in Serum or Plasma 2024-05-13 21:33:13 166 U/L F 46.0-116.0 CA CORRECTED 2024-04-14 10:04:04 9.4 mg/dL F CA/PHOS PRODUCT 2024-04-14 10:02:07 72.4 Calc F 21.0-53.0 CA*PO4 CORRCTD 2024-04-14 10:02:07 72.4 Calc F 21.0-53.0 Phosphate [Mass/volume] in Serum or Plasma 2024-04-14 07:02:42 7.7 mg/dL F 2.4-5.1 Calcium [Mass/volume] in Serum or Plasma 2024-04-14 07:02:42 9.4 mg/dL F 8.7-10.4 Parathyrin.intact [Mass/volume] in Serum or Plasma 2024-04-14 01:22:15 2145 pg/mL F 18.0-80.0 Alkaline phosphatase [Enzymatic activity/volume] in Serum or Plasma 2024-04-13 15:18:23 159 U/L F 46.0-116.0 25-Hydroxyvitamin D3+25-Hydroxyvitamin D2 [Mass/volume] in Serum or Plasma 2024-03-12 07:39:06 26.8 ng/mL F Parathyrin.intact [Mass/volume] in Serum or Plasma 2024-03-11 14:05:21 2072 pg/mL F 18.0-80.0 CA CORRECTED 2024-03-11 08:35:11 9.1 mg/dL F CA*PO4 CORRCTD 2024-03-11 08:33:51 64 Calc F 21.0-53.0 CA/PHOS PRODUCT 2024-03-11 08:33:51 62.3 Calc F 21.0-53.0 Phosphate [Mass/volume] in Serum or Plasma 2024-03-11 08:02:22 7 mg/dL F 2.4-5.1 Calcium [Mass/volume] in Serum or Plasma 2024-03-11 08:02:22 8.9 mg/dL F 8.7-10.4 Alkaline phosphatase [Enzymatic activity/volume] in Serum or Plasma 2024-03-11 05:36:15 123 U/L F 46.0-116.0 CA CORRECTED 2024-02-12 07:42:42 8.6 mg/dL F CA*PO4 CORRCTD 2024-02-12 07:41:02 68.5 Calc F 21.0-53.0 CA/PHOS PRODUCT 2024-02-12 07:41:02 67.2 Calc F 21.0-53.0 Calcium [Mass/volume] in Serum or Plasma 2024-02-12 07:35:35 8.4 mg/dL F 8.7-10.4 Parathyrin.intact [Mass/volume] in Serum or Plasma 2024-02-12 03:56:20 2018 pg/mL F 18.0-80.0 Phosphate [Mass/volume] in Serum or Plasma 2024-02-11 18:08:26 8 mg/dL F 2.4-5.1 Alkaline phosphatase [Enzymatic activity/volume] in Serum or Plasma 2024-02-11 18:08:26 146 U/L F 46.0-116.0 CA CORRECTED 2024-01-15 17:24:39 8.7 mg/dL F CA*PO4 CORRCTD 2024-01-15 17:21:48 43.5 Calc F 21.0-53.0 CA/PHOS PRODUCT 2024-01-15 17:21:48 42.5 Calc F 21.0-53.0 Calcium [Mass/volume] in Serum or Plasma 2024-01-15 17:20:45 8.5 mg/dL F 8.7-10.4 Parathyrin.intact [Mass/volume] in Serum or Plasma 2024-01-15 14:21:23 2202 pg/mL F 18.0-80.0 Phosphate [Mass/volume] in Serum or Plasma 2024-01-15 12:34:18 5 mg/dL F 2.4-5.1 Alkaline phosphatase [Enzymatic activity/volume] in Serum or Plasma 2024-01-15 12:34:18 148 U/L F 46.0-116.0 CA CORRECTED 2023-12-11 07:32:40 8.9 mg/dL F CA/PHOS PRODUCT 2023-12-11 07:02:27 60.9 Calc F 21.0-53.0 CA*PO4 CORRCTD 2023-12-11 07:02:27 62.3 Calc F 21.0-53.0 25-Hydroxyvitamin D3+25-Hydroxyvitamin D2 [Mass/volume] in Serum or Plasma 2023-12-11 06:56:11 26.2 ng/mL F Calcium [Mass/volume] in Serum or Plasma 2023-12-11 06:36:32 8.7 mg/dL F 8.7-10.4 Phosphate [Mass/volume] in Serum or Plasma 2023-12-11 03:50:17 7 mg/dL F 2.4-5.1 Alkaline phosphatase [Enzymatic activity/volume] in Serum or Plasma 2023-12-11 03:50:17 157 U/L F 46.0-116.0 Parathyrin.intact [Mass/volume] in Serum or Plasma 2023-12-10 18:13:17 1586 pg/mL F 18.0-80.0 CA CORRECTED 2023-11-13 08:05:01 8.7 mg/dL F CA*PO4 CORRCTD 2023-11-13 06:12:30 61.8 Calc F 21.0-53.0 CA/PHOS PRODUCT 2023-11-13 06:12:30 58.2 Calc F 21.0-53.0 Calcium [Mass/volume] in Serum or Plasma 2023-11-13 05:54:21 8.2 mg/dL F 8.7-10.4 Parathyrin.intact [Mass/volume] in Serum or Plasma 2023-11-13 04:21:33 1487 pg/mL F 18.0-80.0 Phosphate [Mass/volume] in Serum or Plasma 2023-11-12 23:20:43 7.1 mg/dL F 2.4-5.1 Alkaline phosphatase [Enzymatic activity/volume] in Serum or Plasma 2023-11-12 23:20:43 121 U/L F 46.0-116.0 CA CORRECTED 2023-09-07 15:28:53 9.2 mg/dL F CA*PO4 CORRCTD 2023-09-06 05:35:30 57 Calc F 21.0-53.0 CA/PHOS PRODUCT 2023-09-06 05:35:30 55.2 Calc F 21.0-53.0 Calcium [Mass/volume] in Serum or Plasma 2023-09-06 05:34:41 8.9 mg/dL F 8.7-10.4 Parathyrin.intact [Mass/volume] in Serum or Plasma 2023-09-06 04:42:33 1112 pg/mL F 18.0-80.0 25-Hydroxyvitamin D3+25-Hydroxyvitamin D2 [Mass/volume] in Serum or Plasma 2023-09-06 00:54:32 28.7 ng/mL F Phosphate [Mass/volume] in Serum or Plasma 2023-09-06 00:09:33 6.2 mg/dL F 2.4-5.1 Alkaline phosphatase [Enzymatic activity/volume] in Serum or Plasma 2023-09-06 00:09:33 124 U/L F 46.0-116.0 CA CORRECTED 2022-09-21 02:55:02 9 mg/dL F CA*PO4 CORRCTD 2022-09-21 02:34:35 70.2 Calc F 21.0-53.0 CA/PHOS PRODUCT 2022-09-21 02:34:35 70.2 Calc F 21.0-53.0 25-Hydroxyvitamin D3+25-Hydroxyvitamin D2 [Mass/volume] in Serum or Plasma 2022-09-21 02:34:04 36.3 ng/mL F Calcium [Mass/volume] in Serum or Plasma 2022-09-21 02:27:20 9 mg/dL F 8.7-10.4 Phosphate [Mass/volume] in Serum or Plasma 2022-09-20 23:41:10 7.8 mg/dL F 2.4-5.1 Alkaline phosphatase [Enzymatic activity/volume] in Serum or Plasma 2022-09-20 23:41:10 92 U/L F 46.0-116.0 Parathyrin.intact [Mass/volume] in Serum or Plasma 2022-09-20 17:08:08 909 pg/mL F 18.0-80.0 CA CORRECTED 2022-06-13 05:01:54 9 mg/dL F CA/PHOS PRODUCT 2022-06-13 04:15:55 70.6 Calc F 21.0-53.0 CA*PO4 CORRCTD 2022-06-13 04:15:55 74.7 Calc F 21.0-53.0 Calcium [Mass/volume] in Serum or Plasma 2022-06-13 03:32:06 8.5 mg/dL F 8.7-10.4 Parathyrin.intact [Mass/volume] in Serum or Plasma 2022-06-12 23:47:20 406 pg/mL F 18.0-80.0 Phosphate [Mass/volume] in Serum or Plasma 2022-06-12 22:45:13 8.3 mg/dL F 2.4-5.1 Alkaline phosphatase [Enzymatic activity/volume] in Serum or Plasma 2022-06-12 22:45:13 70 U/L F 46.0-116.0 25-Hydroxyvitamin D3+25-Hydroxyvitamin D2 [Mass/volume] in Serum or Plasma 2022-06-12 22:41:25 45.7 ng/mL F 30.0-100.0 CA CORRECTED 2022-05-16 09:13:45 9 mg/dL F CA*PO4 CORRCTD 2022-05-16 07:29:09 77.4 Calc F 21.0-53.0 Calcium [Mass/volume] in Serum or Plasma 2022-05-16 07:22:00 8.9 mg/dL F 8.7-10.4 CA/PHOS PRODUCT 2022-05-16 07:21:59 76.5 Calc F 21.0-53.0 Parathyrin.intact [Mass/volume] in Serum or Plasma 2022-05-15 21:11:00 354 pg/mL F 18.0-80.0 Phosphate [Mass/volume] in Serum or Plasma 2022-05-15 19:24:59 8.6 mg/dL F 2.4-5.1 Alkaline phosphatase [Enzymatic activity/volume] in Serum or Plasma 2022-05-15 19:24:58 77 U/L F 46.0-116.0 CA CORRECTED 2022-04-11 17:22:40 8.8 mg/dL F CA*PO4 CORRCTD 2022-04-11 07:43:35 45.8 Calc F 21.0-53.0 CA/PHOS PRODUCT 2022-04-11 07:43:35 44.2 Calc F 21.0-53.0 Calcium [Mass/volume] in Serum or Plasma 2022-04-11 07:34:27 8.5 mg/dL F 8.7-10.4 Phosphate [Mass/volume] in Serum or Plasma 2022-04-10 20:14:00 5.2 mg/dL F 2.4-5.1 Alkaline phosphatase [Enzymatic activity/volume] in Serum or Plasma 2022-04-10 20:14:00 80 U/L F 46.0-116.0 CA CORRECTED 2022-03-14 08:32:07 9.4 mg/dL F CA/PHOS PRODUCT 2022-03-14 04:50:31 37.3 Calc F 21.0-53.0 CA*PO4 CORRCTD 2022-03-14 04:50:31 38.5 Calc F 21.0-53.0 Calcium [Mass/volume] in Serum or Plasma 2022-03-14 04:38:39 9.1 mg/dL F 8.7-10.4 25-Hydroxyvitamin D3+25-Hydroxyvitamin D2 [Mass/volume] in Serum or Plasma 2022-03-13 23:43:43 59.8 ng/mL F 30.0-100.0 Parathyrin.intact [Mass/volume] in Serum or Plasma 2022-03-13 20:29:48 214 pg/mL F 18.0-80.0 Phosphate [Mass/volume] in Serum or Plasma 2022-03-13 19:38:39 4.1 mg/dL F 2.4-5.1 Alkaline phosphatase [Enzymatic activity/volume] in Serum or Plasma 2022-03-13 19:38:39 74 U/L F 46.0-116.0 CA CORRECTED 2022-02-15 08:45:42 9.2 mg/dL F CA/PHOS PRODUCT 2022-02-14 20:57:20 36.1 Calc F 21.0-53.0 CA*PO4 CORRCTD 2022-02-14 20:57:20 38.6 Calc F 21.0-53.0 Calcium [Mass/volume] in Serum or Plasma 2022-02-14 20:56:26 8.6 mg/dL F 8.7-10.4 Alkaline phosphatase [Enzymatic activity/volume] in Serum or Plasma 2022-02-14 19:37:03 89 U/L F 46.0-116.0 Phosphate [Mass/volume] in Serum or Plasma 2022-02-14 19:37:03 4.2 mg/dL F 2.4-5.1 CA CORRECTED 2022-01-23 04:50:26 8.8 mg/dL F CA/PHOS PRODUCT 2022-01-23 04:41:30 77.1 Calc F 21.0-53.0 CA*PO4 CORRCTD 2022-01-23 04:41:30 82.7 Calc F 21.0-53.0 Calcium [Mass/volume] in Serum or Plasma 2022-01-23 04:30:54 8.2 mg/dL F 8.7-10.4 Phosphate [Mass/volume] in Serum or Plasma 2022-01-22 22:23:52 9.4 mg/dL F 2.4-5.1 Alkaline phosphatase [Enzymatic activity/volume] in Serum or Plasma 2022-01-22 22:23:52 75 U/L F 46.0-116.0 CA CORRECTED F Nutrition Description Draw Date Result/Unit Status Ref Range Result Comments Potassium [Moles/volume] in Serum or Plasma 2024-10-14 01:37:00 5.1 mEq/L F 3.5-5.1 A/G RATIO 2024-10-13 18:48:12 1.5 Calc F 1.0-2.5 GLOBULIN 2024-10-13 18:48:12 2.7 g/dL F 0.9-5.0 Bicarbonate [Moles/volume] in Serum or Plasma 2024-10-13 18:47:22 26 mEq/L F 20.0-31.0 Protein [Mass/volume] in Serum or Plasma 2024-10-13 18:47:22 6.8 g/dL F 5.7-8.2 Lactate dehydrogenase [Enzymatic activity/volume] in Serum or Plasma 2024-10-13 18:47:22 215 U/L F 120.0-246.0 Albumin [Mass/volume] in Serum or Plasma by Bromocresol green (BCG) dye binding method 2024-10-13 18:47:22 4.1 g/dL F 3.2-4.8 Potassium [Moles/volume] in Serum or Plasma 2024-09-11 04:53:44 6.1 mEq/L F 3.5-5.1 Potassium [Moles/volume] in Serum or Plasma 2024-09-11 04:53:44 6.1 mEq/L F 3.5-5.1 GLOBULIN 2024-09-11 01:14:50 3 g/dL F 0.9-5.0 A/G RATIO 2024-09-11 01:14:50 1.4 Calc F 1.0-2.5 A/G RATIO 2024-09-11 01:14:50 1.4 Calc F 1.0-2.5 GLOBULIN 2024-09-11 01:14:50 3 g/dL F 0.9-5.0 Lactate dehydrogenase [Enzymatic activity/volume] in Serum or Plasma 2024-09-11 01:14:13 360 U/L F 120.0-246.0 Bicarbonate [Moles/volume] in Serum or Plasma 2024-09-11 01:14:13 26 mEq/L F 20.0-31.0 Albumin [Mass/volume] in Serum or Plasma by Bromocresol green (BCG) dye binding method 2024-09-11 01:14:13 4.1 g/dL F 3.2-4.8 Protein [Mass/volume] in Serum or Plasma 2024-09-11 01:14:13 7.1 g/dL F 5.7-8.2 Lactate dehydrogenase [Enzymatic activity/volume] in Serum or Plasma 2024-09-11 01:14:13 360 U/L F 120.0-246.0 Bicarbonate [Moles/volume] in Serum or Plasma 2024-09-11 01:14:13 26 mEq/L F 20.0-31.0 Albumin [Mass/volume] in Serum or Plasma by Bromocresol green (BCG) dye binding method 2024-09-11 01:14:13 4.1 g/dL F 3.2-4.8 Protein [Mass/volume] in Serum or Plasma 2024-09-11 01:14:13 7.1 g/dL F 5.7-8.2 Potassium [Moles/volume] in Serum or Plasma 2024-08-02 23:41:07 4.9 mEq/L F 3.5-5.5 Potassium [Moles/volume] in Serum or Plasma 2024-08-02 23:41:07 4.9 mEq/L F 3.5-5.5 GLOBULIN 2024-08-02 20:31:36 3.1 g/dL F 0.9-5.0 A/G RATIO 2024-08-02 20:31:36 1.2 Calc F 1.0-2.5 GLOBULIN 2024-08-02 20:31:36 3.1 g/dL F 0.9-5.0 A/G RATIO 2024-08-02 20:31:36 1.2 Calc F 1.0-2.5 Lactate dehydrogenase [Enzymatic activity/volume] in Serum or Plasma 2024-08-02 20:30:21 214 U/L F 120.0-246.0 Bicarbonate [Moles/volume] in Serum or Plasma 2024-08-02 20:30:21 26 mEq/L F 20.0-31.0 Albumin [Mass/volume] in Serum or Plasma by Bromocresol green (BCG) dye binding method 2024-08-02 20:30:21 3.7 g/dL F 3.4-4.8 Protein [Mass/volume] in Serum or Plasma 2024-08-02 20:30:21 6.8 g/dL F 5.7-8.2 Lactate dehydrogenase [Enzymatic activity/volume] in Serum or Plasma 2024-08-02 20:30:21 214 U/L F 120.0-246.0 Bicarbonate [Moles/volume] in Serum or Plasma 2024-08-02 20:30:21 26 mEq/L F 20.0-31.0 Albumin [Mass/volume] in Serum or Plasma by Bromocresol green (BCG) dye binding method 2024-08-02 20:30:21 3.7 g/dL F 3.4-4.8 Protein [Mass/volume] in Serum or Plasma 2024-08-02 20:30:21 6.8 g/dL F 5.7-8.2 GLOBULIN 2024-07-29 18:48:07 see comments F 1.5-3.5 Unable to Calculate. A/G RATIO 2024-07-29 18:48:07 see comments F 1.0-3.7 Unable to Calculate. Albumin [Mass/volume] in Serum or Plasma by Bromocresol green (BCG) dye binding method 2024-07-29 18:29:20 F Canceled - Specimen not received 5 days past draw date Lactate dehydrogenase [Enzymatic activity/volume] in Serum or Plasma 2024-07-29 18:29:20 F Canceled - Specimen not received 5 days past draw date Potassium [Moles/volume] in Serum or Plasma 2024-07-29 18:29:20 F Canceled - Specimen not received 5 days past draw date Protein [Mass/volume] in Serum or Plasma 2024-07-29 18:29:20 F Canceled - Specimen not received 5 days past draw date Bicarbonate [Moles/volume] in Serum or Plasma 2024-07-29 18:29:20 F Canceled - Specimen not received 5 days past draw date Potassium [Moles/volume] in Serum or Plasma 2024-07-26 22:53:25 4.7 mEq/L F 3.5-5.5 Potassium [Moles/volume] in Serum or Plasma 2024-07-26 22:53:25 4.7 mEq/L F 3.5-5.5 Potassium [Moles/volume] in Serum or Plasma 2024-06-10 06:17:08 5.1 mEq/L F 3.5-5.5 GLOBULIN 2024-06-10 01:16:18 2.9 g/dL F 0.9-5.0 A/G RATIO 2024-06-10 01:16:18 1.4 Calc F 1.0-2.5 Lactate dehydrogenase [Enzymatic activity/volume] in Serum or Plasma 2024-06-10 01:15:23 239 U/L F 120.0-246.0 Bicarbonate [Moles/volume] in Serum or Plasma 2024-06-10 01:15:23 27 mEq/L F 20.0-31.0 Albumin [Mass/volume] in Serum or Plasma by Bromocresol green (BCG) dye binding method 2024-06-10 01:15:23 4.2 g/dL F 3.4-4.8 Protein [Mass/volume] in Serum or Plasma 2024-06-10 01:15:23 7.1 g/dL F 5.7-8.2 Potassium [Moles/volume] in Serum or Plasma 2024-05-14 04:18:21 6.5 mEq/L F 3.5-5.5 GLOBULIN 2024-05-13 21:33:58 3.1 g/dL F 0.9-5.0 A/G RATIO 2024-05-13 21:33:58 1.4 Calc F 1.0-2.5 Lactate dehydrogenase [Enzymatic activity/volume] in Serum or Plasma 2024-05-13 21:33:13 203 U/L F 120.0-246.0 Bicarbonate [Moles/volume] in Serum or Plasma 2024-05-13 21:33:13 28 mEq/L F 20.0-31.0 Albumin [Mass/volume] in Serum or Plasma by Bromocresol green (BCG) dye binding method 2024-05-13 21:33:13 4.2 g/dL F 3.4-4.8 Protein [Mass/volume] in Serum or Plasma 2024-05-13 21:33:13 7.3 g/dL F 5.7-8.2 Potassium [Moles/volume] in Serum or Plasma 2024-04-14 07:11:40 7.4 mEq/L F 3.5-5.5 GLOBULIN 2024-04-13 15:19:03 3.2 g/dL F 0.9-5.0 A/G RATIO 2024-04-13 15:19:03 1.3 Calc F 1.0-2.5 Lactate dehydrogenase [Enzymatic activity/volume] in Serum or Plasma 2024-04-13 15:18:23 198 U/L F 120.0-246.0 Bicarbonate [Moles/volume] in Serum or Plasma 2024-04-13 15:18:23 24 mEq/L F 20.0-31.0 Albumin [Mass/volume] in Serum or Plasma by Bromocresol green (BCG) dye binding method 2024-04-13 15:18:23 4.1 g/dL F 3.4-4.8 Protein [Mass/volume] in Serum or Plasma 2024-04-13 15:18:23 7.3 g/dL F 5.7-8.2 Potassium [Moles/volume] in Serum or Plasma 2024-03-11 08:02:33 5.6 mEq/L F 3.5-5.5 GLOBULIN 2024-03-11 05:37:05 3.4 g/dL F 0.9-5.0 A/G RATIO 2024-03-11 05:37:05 1.1 Calc F 1.0-2.5 Lactate dehydrogenase [Enzymatic activity/volume] in Serum or Plasma 2024-03-11 05:36:15 185 U/L F 120.0-246.0 Bicarbonate [Moles/volume] in Serum or Plasma 2024-03-11 05:36:15 26 mEq/L F 20.0-31.0 Albumin [Mass/volume] in Serum or Plasma by Bromocresol green (BCG) dye binding method 2024-03-11 05:36:15 3.7 g/dL F 3.4-4.8 Protein [Mass/volume] in Serum or Plasma 2024-03-11 05:36:15 7.1 g/dL F 5.7-8.2 Potassium [Moles/volume] in Serum or Plasma 2024-02-12 07:35:35 5.7 mEq/L F 3.5-5.5 GLOBULIN 2024-02-11 18:09:48 2.6 g/dL F 0.9-5.0 A/G RATIO 2024-02-11 18:09:48 1.5 Calc F 1.0-2.5 Lactate dehydrogenase [Enzymatic activity/volume] in Serum or Plasma 2024-02-11 18:08:26 245 U/L F 120.0-246.0 Bicarbonate [Moles/volume] in Serum or Plasma 2024-02-11 18:08:26 27 mEq/L F 20.0-31.0 Albumin [Mass/volume] in Serum or Plasma by Bromocresol green (BCG) dye binding method 2024-02-11 18:08:26 3.8 g/dL F 3.4-4.8 Protein [Mass/volume] in Serum or Plasma 2024-02-11 18:08:26 6.4 g/dL F 5.7-8.2 Potassium [Moles/volume] in Serum or Plasma 2024-01-15 17:20:45 4.8 mEq/L F 3.5-5.5 GLOBULIN 2024-01-15 12:34:34 2.5 g/dL F 0.9-5.0 A/G RATIO 2024-01-15 12:34:34 1.5 Calc F 1.0-2.5 Lactate dehydrogenase [Enzymatic activity/volume] in Serum or Plasma 2024-01-15 12:34:18 158 U/L F 120.0-246.0 Bicarbonate [Moles/volume] in Serum or Plasma 2024-01-15 12:34:18 24 mEq/L F 20.0-31.0 Albumin [Mass/volume] in Serum or Plasma by Bromocresol green (BCG) dye binding method 2024-01-15 12:34:18 3.8 g/dL F 3.4-4.8 Protein [Mass/volume] in Serum or Plasma 2024-01-15 12:34:18 6.3 g/dL F 5.7-8.2 Potassium [Moles/volume] in Serum or Plasma 2023-12-11 06:36:32 5.5 mEq/L F 3.5-5.5 GLOBULIN 2023-12-11 03:51:19 2.8 g/dL F 0.9-5.0 A/G RATIO 2023-12-11 03:51:19 1.4 Calc F 1.0-2.5 Lactate dehydrogenase [Enzymatic activity/volume] in Serum or Plasma 2023-12-11 03:50:17 198 U/L F 120.0-246.0 Bicarbonate [Moles/volume] in Serum or Plasma 2023-12-11 03:50:17 25 mEq/L F 20.0-31.0 Albumin [Mass/volume] in Serum or Plasma by Bromocresol green (BCG) dye binding method 2023-12-11 03:50:17 3.8 g/dL F 3.4-4.8 Protein [Mass/volume] in Serum or Plasma 2023-12-11 03:50:17 6.6 g/dL F 5.7-8.2 Potassium [Moles/volume] in Serum or Plasma 2023-11-13 05:54:10 5.4 mEq/L F 3.5-5.5 GLOBULIN 2023-11-12 23:20:54 2.7 g/dL F 0.9-5.0 A/G RATIO 2023-11-12 23:20:54 1.3 Calc F 1.0-2.5 Lactate dehydrogenase [Enzymatic activity/volume] in Serum or Plasma 2023-11-12 23:20:43 157 U/L F 120.0-246.0 Bicarbonate [Moles/volume] in Serum or Plasma 2023-11-12 23:20:43 31 mEq/L F 20.0-31.0 Albumin [Mass/volume] in Serum or Plasma by Bromocresol green (BCG) dye binding method 2023-11-12 23:20:43 3.4 g/dL F 3.4-4.8 Protein [Mass/volume] in Serum or Plasma 2023-11-12 23:20:43 6.1 g/dL F 5.7-8.2 A/G RATIO 2023-09-06 05:35:30 1.2 Calc F 1.0-2.5 GLOBULIN 2023-09-06 05:35:30 2.9 g/dL F 0.9-5.0 Potassium [Moles/volume] in Serum or Plasma 2023-09-06 05:34:41 5.2 mEq/L F 3.5-5.5 Lactate dehydrogenase [Enzymatic activity/volume] in Serum or Plasma 2023-09-06 00:09:33 171 U/L F 120.0-246.0 Bicarbonate [Moles/volume] in Serum or Plasma 2023-09-06 00:09:33 26 mEq/L F 20.0-31.0 Albumin [Mass/volume] in Serum or Plasma by Bromocresol green (BCG) dye binding method 2023-09-06 00:09:33 3.6 g/dL F 3.4-4.8 Protein [Mass/volume] in Serum or Plasma 2023-09-06 00:09:33 6.5 g/dL F 5.7-8.2 GLOBULIN 2022-09-20 23:41:40 3.2 g/dL F 0.9-5.0 A/G RATIO 2022-09-20 23:41:40 1.3 Calc F 1.0-2.5 Lactate dehydrogenase [Enzymatic activity/volume] in Serum or Plasma 2022-09-20 23:41:10 202 U/L F 120.0-246.0 Bicarbonate [Moles/volume] in Serum or Plasma 2022-09-20 23:41:10 23 mEq/L F 20.0-31.0 Albumin [Mass/volume] in Serum or Plasma by Bromocresol green (BCG) dye binding method 2022-09-20 23:41:10 4 g/dL F 3.4-4.8 Potassium [Moles/volume] in Serum or Plasma 2022-09-20 23:41:10 4.5 mEq/L F 3.5-5.5 Protein [Mass/volume] in Serum or Plasma 2022-09-20 23:41:10 7.2 g/dL F 5.7-8.2 GLOBULIN 2022-06-12 22:45:25 3.8 g/dL F 0.9-5.0 A/G RATIO 2022-06-12 22:45:25 0.9 Calc F 1.0-2.5 Lactate dehydrogenase [Enzymatic activity/volume] in Serum or Plasma 2022-06-12 22:45:13 205 U/L F 120.0-246.0 Bicarbonate [Moles/volume] in Serum or Plasma 2022-06-12 22:45:13 24 mEq/L F 20.0-31.0 Potassium [Moles/volume] in Serum or Plasma 2022-06-12 22:45:13 5.3 mEq/L F 3.5-5.5 Albumin [Mass/volume] in Serum or Plasma by Bromocresol green (BCG) dye binding method 2022-06-12 22:45:13 3.4 g/dL F 3.4-4.8 Protein [Mass/volume] in Serum or Plasma 2022-06-12 22:45:13 7.2 g/dL F 5.7-8.2 A/G RATIO 2022-05-15 19:25:49 1 Calc F 1.0-2.5 GLOBULIN 2022-05-15 19:25:49 3.8 g/dL F 0.9-5.0 Bicarbonate [Moles/volume] in Serum or Plasma 2022-05-15 19:24:59 23 mEq/L F 20.0-31.0 Protein [Mass/volume] in Serum or Plasma 2022-05-15 19:24:59 7.7 g/dL F 5.7-8.2 Lactate dehydrogenase [Enzymatic activity/volume] in Serum or Plasma 2022-05-15 19:24:58 159 U/L F 120.0-246.0 Albumin [Mass/volume] in Serum or Plasma by Bromocresol green (BCG) dye binding method 2022-05-15 19:24:58 3.9 g/dL F 3.4-4.8 Potassium [Moles/volume] in Serum or Plasma 2022-05-15 19:24:58 6.8 mEq/L F 3.5-5.5 A/G RATIO 2022-04-10 20:14:18 1 Calc F 1.0-2.5 GLOBULIN 2022-04-10 20:14:18 3.5 g/dL F 0.9-5.0 Lactate dehydrogenase [Enzymatic activity/volume] in Serum or Plasma 2022-04-10 20:14:00 180 U/L F 120.0-246.0 Bicarbonate [Moles/volume] in Serum or Plasma 2022-04-10 20:14:00 22 mEq/L F 20.0-31.0 Albumin [Mass/volume] in Serum or Plasma by Bromocresol green (BCG) dye binding method 2022-04-10 20:14:00 3.6 g/dL F 3.4-4.8 Potassium [Moles/volume] in Serum or Plasma 2022-04-10 20:14:00 4.9 mEq/L F 3.5-5.5 Protein [Mass/volume] in Serum or Plasma 2022-04-10 20:14:00 7.1 g/dL F 5.7-8.2 A/G RATIO 2022-03-13 19:39:27 1 Calc F 1.0-2.5 GLOBULIN 2022-03-13 19:39:27 3.6 g/dL F 0.9-5.0 Lactate dehydrogenase [Enzymatic activity/volume] in Serum or Plasma 2022-03-13 19:38:39 184 U/L F 120.0-246.0 Bicarbonate [Moles/volume] in Serum or Plasma 2022-03-13 19:38:39 24 mEq/L F 20.0-31.0 Potassium [Moles/volume] in Serum or Plasma 2022-03-13 19:38:39 5.2 mEq/L F 3.5-5.5 Albumin [Mass/volume] in Serum or Plasma by Bromocresol green (BCG) dye binding method 2022-03-13 19:38:39 3.6 g/dL F 3.4-4.8 Protein [Mass/volume] in Serum or Plasma 2022-03-13 19:38:39 7.2 g/dL F 5.7-8.2 GLOBULIN 2022-02-14 19:37:28 3.6 g/dL F 0.9-5.0 A/G RATIO 2022-02-14 19:37:28 0.9 Calc F 1.0-2.5 Albumin [Mass/volume] in Serum or Plasma by Bromocresol green (BCG) dye binding method 2022-02-14 19:37:03 3.2 g/dL F 3.4-4.8 Potassium [Moles/volume] in Serum or Plasma 2022-02-14 19:37:03 4.2 mEq/L F 3.5-5.5 Protein [Mass/volume] in Serum or Plasma 2022-02-14 19:37:03 6.8 g/dL F 5.7-8.2 Lactate dehydrogenase [Enzymatic activity/volume] in Serum or Plasma 2022-02-14 19:37:03 179 U/L F 120.0-246.0 Bicarbonate [Moles/volume] in Serum or Plasma 2022-02-14 19:37:03 22 mEq/L F 20.0-31.0 GLOBULIN 2022-01-22 22:24:08 3.2 g/dL F 0.9-5.0 A/G RATIO 2022-01-22 22:24:08 1 Calc F 1.0-2.5 Lactate dehydrogenase [Enzymatic activity/volume] in Serum or Plasma 2022-01-22 22:23:52 195 U/L F 120.0-246.0 Bicarbonate [Moles/volume] in Serum or Plasma 2022-01-22 22:23:52 24 mEq/L F 20.0-31.0 Potassium [Moles/volume] in Serum or Plasma 2022-01-22 22:23:52 5.5 mEq/L F 3.5-5.5 Albumin [Mass/volume] in Serum or Plasma by Bromocresol green (BCG) dye binding method 2022-01-22 22:23:52 3.2 g/dL F 3.4-4.8 Protein [Mass/volume] in Serum or Plasma 2022-01-22 22:23:52 6.4 g/dL F 5.7-8.2 Encounters No encounter information to report Immunizations Ordered Immunization Name Filled Immunization Name Date Status Comments Refusal Reason TST-PPD intradermal 2024-05-25 13:20:00 Pneumococcal conjugate PCV20, polysaccharide [id number] conjugate, adjuvant, PF 2024-02-26 14:20:00 Influenza, MDCK, trivalent, preservative 2024-01-13 13:56:13 TST-PPD intradermal 2023-06-08 15:00:00 Hep B, adult 2023-02-09 15:00:00 Hep B, adult 2022-07-16 14:14:36 TST-PPD intradermal 2022-07-04 12:00:44 Hep B, adult 2022-06-23 13:11:13 Hep B, adult 2022-05-16 12:46:44 TB Skin Test 2022-01-21 05:00:00 Influenza Vaccination 2022-01-01 05:00:00 Plan of Treatment Planned Activity Provider Planned Date Details Commen ts [facility] 06:32:30 Ferritin [Mass/volume] in Serum or Plasma [code = 2276-4] Future Scheduled Test [facility] Kgvybg-Dp-Offxj 2024-10-16 05:00:00 Hemoglobin [Mass/volume] in Blood [code = 718-7] [facility] 2024-11-28 05:00:00 Ferritin [Mass/volume] in Serum or Plasma [code = 2276-4] [facility] 2022-03-11 06:00:00 Reticulocytes/100 erythrocytes in Blood by Automated count [code = 55056-4] [facility] 2022-04-16 07:32:04 Parathyrin.intact [Mass/volume] in Serum or Plasma [code = 2731-8] [facility] 2022-12-28 05:00:00 Alanine aminotransferase [Enzymatic activity/volume] in Serum or Plasma [code = 1742-6] [facility] 2022-01-13 21:35:39 25-Hydroxyvitamin D3+25-Hydroxyvitamin D2 [Mass/volume] in Serum or Plasma [code = 93507-6] [facility] 2022-[facility]-09 05:00:00 Aluminum [Mass/volume] in Serum or Plasma [code = 5574-9] [facility] 2022-01-13 21:31:31 Sodium [Moles/volume] in Serum or Plasma [code = 2951-2] Diagnostic Test [facility]Ackrq 2022-01-13 21:30:46 Creatinine [Mass/volume] in Serum or Plasma [code = 2160-0] Diagnostic Test Pending [facility] Chwmpb-Re-Dvsvb 2024-10-02 05:00:00 Hemoglobin [Mass/volume] in Blood [code = 718-7] Diagnostic Test Pending [facility] Xlcavf-Kz-Qyxau 2022-01-13 21:37:03 Hemoglobin A1c/Hemoglobin.total in Blood [code = 4548-4] Diagnostic Test Pending [facility] Brvvgh-Ga-Uaxbj [facility] 2024-10-10 22:08:22 In-Center Hemodialysis Treatment [code = XAR693] Diagnostic Test Pending [facility] Pmbrmc-St-Pwawh [facility] 2024-09-09 16:36:33 In-Center Hemodialysis Treatment [code = KYW534] Other Order [facility] Alvevs-Im-Uyqol [facility] 2023-06-01 22:22:19 Diet Order [facility] Aiqxoo-Au-Bjrid [facility] May 23, 2024 Diet Calorie 30 kcal/kg Fluid Value 1000 mL/d Phosphorus Value 1000 mg/d Potassium Value 2000 mg/d Protein Value 1.2 gm/kg Sodium Value 2000 mg/d Calculated Weight 92 kg
--- OUTSIDE RECORDS SUMMARY | 2024-10-15 06:20 | XMS_ITS | Encounter Summary ---
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 Name Role Phone Lida Woods MD Primary Care Provider Ras David MD Primary Care Provider [phone] Encounter Details Date Type Department Care Team (Late st Contact Info) Description 04/21/2023 Orders Only [facility] [address] [phone] Felecia Ortega, SHAWNA [address] [id number] Social History Tobacco Use Types Packs/Day Years Used Date Smoking Tobacco: Every Day Cigarettes Smokeless Tobacco: Never Alcohol Use Standard Drinks/Week Comments Never 0 (1 standard drink = 0.6 oz pur e alcohol) [facility] Utilities Answer Date Recorded In the past 12 months has [facility] [employer], gas, oil, or water [facility] threatened to shut off services in your home? Patient declined 04/22/2023 Humiliation, Afraid, Rape, and Kick questionnair e Answer Date Recorded Within the last year, have y ou been afraid of your partner or ex-partner? Patient declined 04/22/2023 Within the last year, have y ou been humiliated or emotionally abused in other ways by your partner or ex-partner? Patient declined 04/22/2023 Within the last year, have y ou been kicked, hit, slapped, or otherwise physically hurt by your partner or ex-partner? Patient declined 04/22/2023 Within the last year, have y ou been raped or forced to have any kind of sexual activity by your partner or ex-partner? Patient declined 04/22/2023 Social Connection and Isolation Panel [NHANES] A nswer Date Recorded In a typical week, how many times do you talk on the phone with family, friends, or neighbors? Patient declined 04/22/19 How often do you get togethe r with friends or relatives? Patient declined 04/22/2023 How often do you attend chur or evangelical services? Patient declined 04/22/2023 Do you belong to any clubs o r organizations such as christian groups, unions, fraHeekya or athletic groups, or school groups? Patient declined 04/22/2023 How often do you attend meet ings of the clubs or organizations you belong to? Patient declined 04/22/2023 Are you , , di vorced, , never , or living with a partner? Living with partner 04/22/2023 AUDIT-C Answer Date Recorded Q1: How often do you have a drink containing alc ohol? Patient declined 04/22/2023 Q2: How many drinks containi ng alcohol do you have on a typical day when you are drinking? Patient declined 04/22/2023 Q3: How often do you have si x or more drinks on one occasion? Patient declined 04/22/2023 Overall Financial Resource Strain (CARDIA) Answe r Date Recorded How hard is it for you to pa y for the very basics like food, housing, medical care, and heating? Patient declined 04/22/2023 [facility] - Occupational Stress Questionnaire Answer Date Recorded Do you feel stress - tense, restless, nervous, or anxious, or unable to sleep at night because your mind is troubled all the time - these days? Patient declined 04/22/2023 Exercise Vital Sign Answer Date Recorde d On average, how many days pe r week do you engage in moderate to strenuous exercise (like a brisk walk)? Patient declined On average, how many minutes do you engage in exercise at this level? Patient declined 04/22/2023 Hunger Vital Sign Answer Date Recorded Within the past 12 months, y ou worried that your food would run out before you got the money to buy more. Patient declined Within the past 12 months, t he food you bought just didn't last and you didn't have money to get more. Patient declined PRAPARE - Transportation Answer Date Re corded In the past 12 months, has l ack of transportation kept you from medical appointments or from getting medications? Patient declined 04/22/2023 In the past 12 months, has l ack of transportation kept you from meetings, work, or from getting things needed for daily living? Patient declined 04/22/2023 Housing Stability Vital Sign Answer Miguel Angel e Recorded In the last 12 months, was t here a time when you were not able to pay the mortgage or rent on time? Patient declined 04/22/19 24 In the last 12 months, how many places have you lived? 1 04/22/2023 In the last 12 months, was t here a time when you did not have a steady place to sleep or slept in a snf (including now)? Patient declined 04/22/2023 Sex and Gender Information Value Date Recorded Sex Assigned at Not on file Legal Sex Male 5:49 AM CDT Gender Identity Male 01/22/2021 8:09 AM CDT Sexual Orientation Not on file documented as of this encounter Functional Status * Audit-C Score Answer Date of Assessment Author -1 04/22/2023 11:58 AM Mago Cha MSW * Question Answer Date of Assessment Author Q1: How often do you have a drink containing alcohol? Patient declined 04/22/2023 11:58 AM Mago Cha MSW Q2: How many drinks containing alcohol do you have on a typical day when you are drinking? Patient declined 04/22/2023 11:58 AM Mago Cha MSW Q3: How often do you have six or more drinks on one occasion? Patient declined 04/22/2023 11:58 AM Mago Cha MSW * Are you deaf or do you have serious difficulty hearing? Answer Date of Assessment Author No 11/10/2022 6:26 PM CDBelia Oseguera BSN,RN * Are you blind or do you have serious difficulty seeing, even when wearing glasses? Answer Date of Assessment Author No 11/10/2022 6:26 PM TAMELAT Belia Mcgarry BSN,RN * Do you have serious difficulty walking or climbing stairs? Answer Date of Assessment Author No 11/10/2022 6:26 PM TAMELAT Belia Mcgarry BSN, RN * Do you have serious difficulty dressing or bathing? Answer Date of Assessment Author No 11/10/2022 6:26 PM Belia Daly BSN,SHAWNA * Because of a physical, mental, or emotional condition, do you have serious difficulty doing errandsalone such as visiting the doctor? Answer Date of Assessment Author No 11/10/2022 6:26 PM TAMELAT Belia Mcgarry BSN,RN documented as of this encounter Mental Status * Question Answer Entry Date Author Cognition Appropriate judgement 04/22/2023 11:15 AM ENVIRONMENTAL AID Felecia Ortega RN * Because of a physical, mental, or emotional condition, do you have serious difficulty concentrating, remembering, or making decisions? (5 years old or older) Answer Entry Date Author No 11/10/2022 6:26 PM Belia Daly BSN, RN documented in this encounter Plan of Treatment Upcoming Encounters Date Type Department Care Team (Late st Contact Info) Description 11/24/2024 10:30 AM CDT Office Visit [facility] [address] [place] [address] [phone] Guy Davenport MD [address] [place] [address], [address] [place] [phone] documented as of this encounter Visit Diagnoses Not on filedocumented in this encounter Additional Health Concerns Infection Onset Date Last Indicated Resolved Time MRSA Comment:01/08/24: MRSA PCR + 03/22/2023 01/08/2024 COVID-19 Rule-Out 07/12/2023 07/12/2023 07/12/2023 6:24 AM CDT COVID-19 Rule-Out 07/30/2023 07/30/2023 07/30/2023 12:45 AM CDT COVID-19 Rule-Out 07/31/2023 07/31/2023 07/31/2023 3:26 PM CDT COVID-19 Rule-Out 01/07/2024 01/07/2024 01/07/2024 6:10 PM CDT COVID-19 Rule-Out 09/16/2024 09/16/2024 09/16/2024 9:01 AM CDT documented as of this encounter 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
--- OUTSIDE RECORDS SUMMARY | 2024-10-15 06:20 | XMS_ITS | Encounter Summary ---
Author Organization [facility] Address 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 Topic: Reschedule/Cancel Appointment/Late Arrival >> Sep 16, 2024 9:03 AM Cleopatra Hall wrote: Caller is requesting to reschedule/cancel a hospital follow up. Caller Name: Asuncion, significant other, on PHI Callback Number: Telephone Information: Call Notes: patient was taken to hospital in [place] this morning. Is patient requesting to schedule? No documented in this encounter Plan of Treatment Upcoming Encounters Date Type Department Care Team (Late st Contact Info) Description 12/21/2024 1:40 PM CDT Office Visit [facility] [address] [place] [address] Ras Joy MD [address] [address] documented as of this encounter Visit Diagnoses Not on filedocumented in this encounter Care Teams Canal Structure Operator Relationship Specialty Start Date End Date Ras Joy MD [address] [address] PCP - General Family Practice 03/04/23 documented as of this encounter
--- OUTSIDE RECORDS SUMMARY | 2024-10-15 06:20 | XMS_ITS | Encounter Summary ---
Author Organization [facility] Address [address] [place] [phone] Phone Care Team Providers Care Curator Of Manuscripts Name Role Phone Lida Woods MD Primary Care Provider Unav Ras Huber MD Primary Care Provider [phone] Reason for Visit * Reason Comments Med Change Request Encounter Details Date Type Department Care Team (Late st Contact Info) Description 09/27/2022 Refill MED TELE [address] [place] [phone] Michele Cage MD [address] [place] [phone] Social History Tobacco Use Types Packs/Day Years [...] AM CDT Sexual Orientation Not on file COVID-19 Exposure Response Date Recorded In the last 10 days, have yo u been in contact with someone who was confirmed or suspected to have Coronavirus/COVID-19? No / Unsure 09/10/2022 6:34 AM CDT documented as of this encounter Functional Status * Are you deaf or do you have serious difficulty hearing? Answer Date of Assessment Author No 09/10/2022 9:22 AM CDT Belia Mcgarry, BSN,RN * Are you blind or do you have serious difficulty seeing, even when wearing glasses? Answer Date of Assessment Author No 09/10/2022 9:22 AM Belia Daly BSN, RN * Do you have serious difficulty walking [...] [facility] [address] [place] [phone] Guy Davenport MD [address] [place] [address], [address] [place] [phone] documented as of this encounter Visit Diagnoses Not on filedocumented in this encounter Additional Health Concerns Infection Onset Date Last Indicated Resolved Time COVID-19 Rule-Out 11/10/2022 11/10/2022 11/10/2022 11:49 AM CDT COVID-19 Rule-Out 02/23/2023 02/23/2023 02/23/2023 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 COVID-19 Rule-Out 02/23/2023 02/23/2023 02/23/2023 8:27 AM 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 MRSA Comment:01/08/24: MRSA PCR + 03/22/2023 01/08/2024 COVID-19 Rule-Out 07/12/2023 07/12/2023 07/12/2023 6:24 AM CDT COVID-19 Rule-Out 07/30/2023 07/30/2023 07/30/2023 12:45 AM CDT COVID-19 Rule-Out 07/31/2023 07/31/2023 07/31/2023 3:26 PM CDT COVID-19 Rule-Out 01/07/2024 01/07/2024 01/07/2024 6:10 PM CDT COVID-19 Rule-Out 09/16/2024 09/16/2024 09/16/2024 9:01 AM CDT documented as of this encounter Care Teams Curator Of Manuscripts Relationship Specialty Start Date End Date Lida Woods MD [address] [address] PCP - General Family Medicine 09/02/22 Ras Joy MD [address] [address] PCP - General Family Medicine 05/04/23 documented as of this encounter
--- NOTE | 2024-10-15 06:25 | ED_ITS ---
HPI - SOB/Dyspnea 2 General: Chief Complaint: Shortness of Breath/Dyspnea Stated Complaint: shortness of breath Time Seen by Provider: 10/15/24 06:17 History of Present Illness: HPI Narrative: 49-year-old male presents to the emergen cy room stating he generally does not feel well and is short of breath. He still has rapid heart rate. He has a known history of A-fib. He is not on any anticoagulants at this time he is on metoprolol for rate control he has not taken it yet this morning. He is on hemodialysis he usually gets it Thursday he did not get dialysis yesterday. Has a history of congestive heart failure as well. Associated symptoms: Reports orthopnea and palpitations; Deny abdominal pain, chest pain or fever(s) Related Data Home Medications ?Medication ?Instructions ?Recorded ?Confirmed furosemide 80 mg tablet 80 mg PO BID 09/14/23 trazodone 150 mg tablet 150 mg PO BEDTIME 01/17/24 0 09/21/24 sodium polystyrene sulfonate 30 g PO Q7D 09/21/2408/29 Previous Rx's ?Medication ?Instructions ?Recorded albuterol sulfate 90 mcg/actuation 1 inh inhalation Q6 H PRN shortness 09/23/24 aerosol inhaler (Ventolin HFA) of breath or wheezing # 8.5 grams aspirin 81 mg tablet 81 mg PO DAILY 30 days #30 t abs 09/23/24 atorvastatin 40 mg tablet 40 mg PO BEDTIME 30 days #30 tabs 09/23/24 fluticasone 250 mcg-salmeterol 50 1 inh inhalation BID #60 ea 09/23/24 mcg/dose blistr powdr for inhalation (Advair Diskus) metoprolol tartrate 25 mg tablet 25 mg PO BID@0900,210 0 30 days #60 09/23/24 tabs Allergies Allergy/AdvReac Type Severity Reaction Status Date / Time lisinopril Allergy swelling Verified 03/15/24 22:51 Penicillins Allergy ALGY-Hives Verified 03/15/24 22:51 tramadol Allergy ALGY-Hives Verified 03/15/24 22:51 Review of Systems 2 Const: Denies: fever(s) or chills Card: Reports: palpitations, irregular heart rhythm, edema, swelling of feet/ankles, dyspnea on exertion and orthopnea; Denies: chest pain Resp: Denies: dyspnea GI: Denies: abdominal pain : Denies: dysuria, urinary frequency or urinary urgency Musc: Denies: neck pain or back pain Skin/Breast: Denies: rash PFSH ED 2 PFSH: Medical History Atrial fibrillation with RVR End stage kidney disease Uncontrolled hypertension Hypoglycemia Atrial fibrillation with RVR COPD exacerbation Pulmonary edema Non-compliance with renal dialysis End stage renal disease Anxiety and depression Obstructive sleep apnea Allergic dermatitis ESRD (end stage renal disease) Pleural effusion Dialysis patient Hypertensive emergency Atrial fibrillation/flutter Chest pain Elevated troponin Resistant hypertension Paroxysmal atrial fibrillation with RVR End stage chronic kidney disease Anemia Diastolic CHF Sebaceous cyst GERD (gastroesophageal reflux disease) Insomnia COPD (chronic obstructive pulmonary disease) Reports he is on 4 L of oxygen at home Hypoxia Anxiety and depression Lower respiratory tract infection Encounter to establish care Vitamin D deficiency Hypertension CRF (chronic renal failure) Surgical History S/P hemodialysis catheter insertion H/O hand surgery right hand with hardware H/O circumcision Presence of peritoneal dialysis catheter S/P dialysis catheter insertion (12/12/19) Removed on 04/04/2020 Family History Other Adopted Denies family history of Anesthesia complication Bleeding disorder Social History Smoking and tobacco/nicotine status: current every day tobacco/nicotine user (1ppd X26 years) cigarettes [ Other cigarette details: On and off quitting and restarting] Alcohol intake: never Substance/Drug Use: never Household members: significant other Marital status: Single Current occupational status: disabled Physical Exam 2 Const: GENERAL APPEARANCE: cooperative ORIENTATION/CONSCIOUSNESS: Yes awake, Yes oriented to person, Yes oriented to place and Yes oriented to time HENMT: COMMON NORMALS: normocephalic, atraumatic and hearing grossly normal bilaterally HEAD & SCALP: normocephalic and atraumatic Resp: AUSCULTATION: crackles Cardio: COMMON NORMALS: No murmurs present (Cardio) RATE: tachycardic R HYTHM: abnormal rhythm irregularly irregular GI: COMMON NORMALS: Soft to palpation and No hepatosplenomegaly present A USCULTATION: Yes normoactive bowel sounds PALPATION: Yes Soft to palpation, No Tenderness to palpation present (GI), No Guarding due to palpation present (GI) and Yes No hepatosplenomegaly present Extremity: COMMON NORMALS: normal to inspection, capillary refill normal, no clubbing, cyanosis or edema, no calf tenderness and no pedal edema Neuro: SENSORIUM/ORIENTATION: Yes oriented to person, Yes oriented to place and Yes oriented to time Skin: COMMON NORMALS: no rashes or lesions noted GENERAL SKIN EXAM: no rashes or lesions noted Course 2 Vital Signs: Vital signs: Vital Signs Temperature 98.3 F 10/15/24 06:22 Pulse Rate 117 H 10/15/24 07:54 Respiratory Rate 22 H 10/15/24 07:54 Blood Pressure 169/140 10/15/24 07:54 Pulse Oximetry 95 10/15/24 07:54 Oxygen Delivery Me thod Nasal Cannula 10/15/24 07:54 Oxygen Flow Rate 3 10/15/24 07:54 MDM - SOB/Dyspnea Medical Decision Making Decompensated congestive heart failure atrial fibrillation rapid ventricular response and hyperkalemia. Patient is end-stage renal disease and due for dialysis. Initially given IV metoprolol and his oral metoprolol was rate was not properly controlled and he was started on esmolol drip. Will admit have consulted nephrology admit to the hospitalist. Hyperkalemia treatments initiated. Orders written for admission Medical Records I reviewed the patient's medical records. Lab Data I reviewed the patient's lab results. 10/15/24 06:34 10/15/24 06:34 Labs/Radiology: Radiology Impressions Chest X-Ray 10/15/24 06:17 IMPRESSION: As above. Laboratory Results WBC 6.83 10^3/uL (3.29-11.43) 10/15/24 06:34 RBC 3.88 10^6/uL (3.85-5.65) 10/15/24 06:34 Hgb 12.50 g/dL (11.27-16.99) 10/15/24 06:34 Hct 40.5 % (37-53) 10/15/24 06:34 MCV 104.4 fl (82-101) H 10/15/24 06:34 MCH 32.2 pg (27-33) 10/15/24 06:34 MCHC 30.9 g/dL (30-55) 10/15/24 06:34 RDW 16.3 % (12.1-15.1) H 10/15/24 06:34 Plt Count 173 10^3/cmm (157-399) 10/15/24 06:34 MPV 9.9 fL (7.4-10.4) 10/15/24 06:34 Neut % (Auto) 70.3 % 10/15/24 06:34 Lymph % (Auto) 13.0 % 10/15/24 06:34 Colbert % (Auto) 9.4 % 10/15/24 06:34 Eos % (Auto) 6.1 % 10/15/24 06:34 Baso % (Auto) 0.9 % 10/15/24 06:34 Neut # (Auto) 4.80 10^3/uL (1.8-7.7) 10/15/24 06:34 Lymph # (Auto) 0.9 10^3/uL (0.8-4.8) 10/15/24 06:34 Colbert # (Auto) 0.6 10^3/uL (0.2-0.9) 10/15/24 06:34 Eos # (Auto) 0.4 10^3/uL (0.0-0.8) 10/15/24 06:34 Baso # (Auto) 0.1 10^3/uL (0.0-0.1) 10/15/24 06:34 Nucleated RBC % (auto) 0 % 10/15/24 06:34 Nucleated RBCs # 0.0 /100WBC 10/15/24 06:34 Sodium 138 mmol/L (136-145) 10/15/24 06:34 Potassium 5.4 mmol/L (3.5-5.1) H 10/15/24 06:34 Chloride 94 mmol/L (98-107) L 10/15/24 06:34 Carbon Dioxide 26 mmol/L (22-29) 10/15/24 06:34 Anion Gap 23.4 (5-19) H 10/15/24 06:34 BUN 71 mg/dL (6-20) H 10/15/24 06:34 Creatinine 12.3 mg/dL (0.7-1.2) H* 10/15/24 06:34 GFR Calculation 4.4 mL/min (90-130) L 10/15/24 06:34 Glucose 86 mg/dL (65-115) 10/15/24 06:34 POC Glucose 72 mg/dL (70-110) 10/15/24 07:43 Calculated Osmolality 306 mOsm/kg (285-295) H 10/15/24 06:34 Calcium 8.8 mg/dL (8.5-10.5) 10/15/24 06:34 Total Bilirubin 0.4 mg/dL (0.15-1.2) 10/15/24 06:34 AST 18 U/L (0-40) 10/15/24 06:34 ALT 16 U/L (0-41) 10/15/24 06:34 Alkaline Phosphatase 250 U/L (40-130) H 10/15/24 06:34 Troponin T Baseline 84 ng/L (0-15) H 10/15/24 06:34 Total Protein 6.9 g/dL (6.6-8.7) 10/15/24 06:34 Albumin 3.6 g/dL (3.5-5.2) 10/15/24 06:34 Globulin 3.3 g/dL (1.3-4.6) 10/15/24 06:34 All radiology interpretation(s) finalized by discharge Discharge Plan Discharge Patient Disposition: Admitted As Inpatient Clinical Impression: Systolic CHF, acute, Atrial fibrillation with rapid ventricular response, End stage renal disease on dialysis, Hyperkalemia Condition: Stable Coding Level of Care Code ED Driving Instructor for Shilpa Phillips
[2024-10-15 06:44] LABS: Hematocrit 40.5 % (37-53); Hemoglobin 12.50 g/dL (11.27-16.99); Mean Corpuscular HGB Conc 30.9 g/dL (30-55); Mean Corpuscular Hemoglobin 32.2 pg (27-33); Mean Corpuscular Volume 104.4 fl (82-101); Nucleated Red Blood Cells % 0 %; Platelet Count 173 10^3/cmm (157-399); Red Blood Count 3.88 10^6/uL (3.85-5.65); White Blood Count 6.83 10^3/uL (3.29-11.43)
[2024-10-15] MEDS: metoprolol tartrate 1 mg/1 mL SDV 5 mL 2.5 MG IVP (06:49)
[2024-10-15 07:04] LABS: Alanine Aminotransferase 16 U/L (0-41); Albumin Level 3.6 g/dL (3.5-5.2); Alkaline Phosphatase 250 U/L (40-130); Aspartate Amino Transferase 18 U/L (0-40); Blood Urea Nitrogen 71 mg/dL (6-20); Calcium 8.8 mg/dL (8.5-10.5); Carbon Dioxide 26 mmol/L (22-29); Chloride 94 mmol/L (98-107); Creatinine Clr Calc Pharmacy 8.1561; Globulin 3.3 g/dL (1.3-4.6); Glucose 86 mg/dL (65-115); Osmolality Calculated 306 mOsm/kg (285-295); Sodium 138 mmol/L (136-145); Total Protein 6.9 g/dL (6.6-8.7)
[2024-10-15 07:06] LABS: Anion Gap 23.4 (5-19); Potassium 5.4 mmol/L (3.5-5.1)
--- NOTE | 2024-10-15 07:24 | P.HP_ITS ---
Providers/Chief Complaint 2 Primary Care Provider: Ras Joy Chief Complaint: shortness of breath History of Present Illness Leopoldo Schaefer is a 49 year old male past medical history of end-stage renal disease on dialysis Thursday, history of atrial fibrillation, COPD, CHF, who presents [facility] for shortness of breath. Patient reports shortness of breath a lot over the last few days, and that he missed dialysis on Thursday. He is on 5 L of cannula at home however requiring 3 L at this time. 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 He states has been on dialysis for last 5 to 10 years. Denies chest pain nausea vomiting diarrhea. Denies abdominal pain. In ER he was noted to be hyperkalemic at 5.4. He was given calcium gluconate, insulin dextrose. Kayexalate was also ordered. He is noted to be in A-fib with RVR. 2.5 metoprolol IV push given and thereafter esmolol drip started. Medications/Allergies Home Medications ?Medication ?Instructions ?Recorded ?Confirmed ?Last Taken ?Type furosemide 80 mg tablet 80 mg PO BID 09/14/2309/21/24 History trazodone 150 mg tablet 150 mg PO BEDTIME 01/17/24 0 10/15/24 09/20/24 20:00 History albuterol sulfate 90 mcg/actuation 1 inh inhalation Q6 H PRN shortness 09/23/24 10/15/24 Unknown Rx aerosol inhaler (Ventolin HFA) of breath or wheezing # 8.5 grams aspirin 81 mg tablet 81 mg PO DAILY 30 days #30 t abs 09/23/24 10/15/24 Unknown Rx atorvastatin 40 mg tablet 40 mg PO BEDTIME 30 days #30 tabs 09/23/24 10/15/24 Unknown Rx fluticasone 250 mcg-salmeterol 50 1 inh inhalation BID #60 ea 09/23/24 10/15/24 Unknown Rx mcg/dose blistr powdr for inhalation (Advair Diskus) metoprolol tartrate 25 mg tablet 25 mg PO BID@0900,210 0 30 days #60 09/23/24 10/15/24 Unknown Rx tabs Allergies Allergy/AdvReac Type Severity Reaction Status Date / Time lisinopril Allergy swelling Verified 03/15/24 22:51 Penicillins Allergy ALGY-Hives Verified 03/15/24 22:51 tramadol Allergy ALGY-Hives Verified 03/15/24 22:51 PFSH Acute 2 PFSH: Medical History (Updated 10/15/24 @ 12:19 by Cassidy Serrano MD) Atrial fibrillation with RVR End stage kidney disease Uncontrolled hypertension Hypoglycemia Atrial fibrillation with RVR COPD exacerbation Pulmonary edema Non-compliance with renal dialysis End stage renal disease Anxiety and depression Obstructive sleep apnea Allergic dermatitis ESRD (end stage renal disease) Pleural effusion Dialysis patient Hypertensive emergency Atrial fibrillation/flutter Chest pain Elevated troponin Resistant hypertension Paroxysmal atrial fibrillation with RVR End stage chronic kidney disease Anemia Diastolic CHF Sebaceous cyst GERD (gastroesophageal reflux disease) Insomnia COPD (chronic obstructive pulmonary disease) Reports he is on 4 L of oxygen at home Hypoxia Anxiety and depression Lower respiratory tract infection Encounter to establish care Vitamin D deficiency Hypertension CRF (chronic renal failure) Surgical History S/P hemodialysis catheter insertion H/O hand surgery right hand with hardware H/O circumcision Presence of peritoneal dialysis catheter S/P dialysis catheter insertion (12/12/19) Removed on 04/04/2020 Family History Other Adopted Denies family history of Anesthesia complication Bleeding disorder Social History Smoking and tobacco/nicotine status: current every day tobacco/nicotine user (1ppd X26 years) cigarettes [ Other cigarette details: On and off quitting and restarting] Alcohol intake: never Substance/Drug Use: never Household members: significant other Marital status: Single Current occupational status: disabled Vitals/I&O/Wt Last Vital Signs Temp 98.3 F 10/15/24 06:22 Pulse 134 H 10/15/24 06:22 Resp 27 H 10/15/24 06:22 BP 189/141 10/15/24 06:22 Pulse Ox 93 10/15/24 06:22 O2 Del Method Nasal Cannula 10/15/24 06:22 O2 Flow Rate 4 10/15/24 06:22 Weight last 48 hrs Weight 93.395 kg Physical Exam 2 Narrative: General: Alert oriented x3, patient seen on 3 L of cannula at this time. Hypertensive tachycardic. HEENT: Normocephalic, atraumatic, EOMI, breathing. Nasal cannula at this time. Cardio: Irregularly irregular, normal S1-S2, Respiratory: Generally clear to auscultation bilaterally no wheezing or rhonchi, diminished at bases. GI: Abdomen soft, nontender, bowel sounds + Extremities: Trace edema bilateral lower extremities Data 10/15/24 10:53 10/15/24 09:44 A&P Assessment and plan 1. Accelerated hypertension: 2. Pulmonary edema: 3. Hypoxia: 4. Missed dialysis: 5. ESRD on dialysis: 6. Hyperkalemia: 7. GERD (gastroesophageal reflux disease): 8. Fluid overload: 9. Atrial fibrillation with rapid ventricular response: 10. UTI (urinary tract infection): Plan: #Shortness of breath secondary to fluid overload secondary to missing dialysis #Hyperkalemia #End-stage renal disease on dialysis Thursday missed Thursday. #A-fib with RVR #Hypertensive urgency #COPD #History of diastolic heart failure/currently in exacerbation #Supplemental oxygen requirement at baseline #Recent staph epi bacteremia ? Patient missed his dialysis on Thursday. He is feeling short of breath. Hyperkalemic on arrival. Given Kayexalate calcium gluconate insulin dextrose in the ER. Repeat potassium pending at this time. ? Nephrology contacted. Patient will need to be dialyzed. ? BiPAP orders written ? Continue esmolol drip for tachycardia/A-fib/hypertension ? Once patient is dialyzed I do expect his heart rate and blood pressure will improve. ? A-fib most likely secondary to severe electrolyte abnormalities ? Denies any other complaints at this time. Denies chest pain, nausea vomiting diarrhea abdominal pain. ? Continue aspirin, atorvastatin ? Patient on Lasix at home ? Defer to nephrology. - [place] at 6 hours -3.67 ? Urinalysis shows 11-20 WBCs, 2+ protein. Patient told me he is anuric however was able to provide a small's urine sample. ? 2+ leukocyte esterase present. Suggestive of UTI. Will place on ceftriaxone 1 g daily. ? Urine check urine culture ? At previous hospitalization he had staph epi bacteremia x 2 blood cultures. I will recheck blood cultures to ensure eradication of infection. ? Consult cardiology. Had a goals of care discussion with the patient. He states he would like to be DNR/DNI. He states if anything happens let him go. Asked him if he knows that what that means and he stated yes I will be gone. He states if anything happens I do not want anyone to do any intervention. Let me go naturally. DNR/DNI DVT prophylaxis: Heparin SQ twice daily PDMP PDMP Reviewed: Not Reviewed Attestations 2 Medical Necessity Statement*: Missed dialysis requiring inpatient dialysis, on BiPAP secondary to diastolic heart failure exacerbation currently on esmolol drip. Hyperkalemic. A-fib with RVR. Diagnoses Accelerated hypertension I10 Pulmonary edema J81.1 Hypoxia R09.02 Missed dialysis ESRD on dialysis N18.6; Z99.2 Hyperkalemia E87.5 GERD (gastroesophageal reflux disease) K21.9 Fluid overload E87.70 Atrial fibrillation with rapid ventricular response I48.91 UTI (urinary tract infection) N39.0
--- NOTE | 2024-10-15 07:24 | ECG_ITS ---
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 Measurements Intervals [place] Rate: 117 P: 0 [place]: 0 QRS: -55 QRSD: 117 T: 86 QT: 328 QTc: 458 Interpretive Statements ATRIAL FIBRILLATION WITH RAPID VENTRICULAR RESPONSE WITH ABERRANT CONDUCTION OR VENTRICULAR PREMATURE COMPLEXES PATTERN CONSISTENT WITH PULMONARY DISEASE LEFT ANTERIOR FASCICULAR BLOCK [QRS AXIS <= -45, QR IN I, RS IN II] Compared to ECG 10/15/2024 06:14:02 Ventricular premature complex(es) now present Aberrant conduction of supraventricular beat(s) now present Left anterior fascicular block now present Electronically Signed On 10-15-2024 14:05:19 CDT by Shanna Sosa M.D. [email or web address] [id number]
[2024-10-15 07:27] LABS: Troponin(5th) Baseline 84 ng/L (0-15)
[2024-10-15] MEDS: esmolol drip 2,500 MG/250 ML PREMIX 27.9 MG IV (07:37)
[2024-10-15] MEDS: calcium chloride 10% Syr 10 mL 1 GM IVP (07:38)
[2024-10-15] MEDS: ondansetron 2 mg/ML SDV 2 mL 4 MG IVP (07:45)
[2024-10-15] MEDS: heparin 5,000 unit/mL INJ 1 mL 5000 UNIT SUBCUT ×2 (07:48→19:30)
[2024-10-15] MEDS: insulin regular-human 100 units/1 mL 10 UNIT IVP (08:12)
[2024-10-15] MEDS: sodium bicarbonate 100 MEQ in dextrose 5% 250 ML 700 MEQ IV (08:18)
--- NOTE | 2024-10-15 09:07 | ECG_ITS ---
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1975 Requested By: Edwin Stevens Order Number: [id number] Reading MD: GARRETT JIMENEZ Measurements Intervals [place] Rate: 103 P: 0 W[place]: 0 QRS: 77 QRSD: 93 T: 89 QT: 344 QTc: 450 Interpretive Statements ATRIAL FIBRILLATION WITH RAPID VENTRICULAR RESPONSE WITH ABERRANT CONDUCTION OR VENTRICULAR PREMATURE COMPLEXES MODERATE T-WAVE ABNORMALITY, CONSIDER INFERIOR ISCHEMIA [-0.1+ mV T-WAVE IN II/aVF] Compared to ECG 10/15/2024 07:24:37 T-wave abnormality now present Possible ischemia now present Left anterior fascicular block no longer present Electronically Signed On 10-15-2024 16:09:59 CDT by GARRETT JIMENEZ [email or web address] [id number]
[2024-10-15 09:08] LABS: Glucose Urine UA Trace (Normal); Nitrate Urine Negative (Negative); Specific Gravity, Urine 1.008 (1.005-1.030)
[2024-10-15 09:13] LABS: Add Urine Microscopic? YES
[2024-10-15] MEDS: pantoprazole 40 mg SDV IVP (09:17)
[2024-10-15 10:36] LABS: Troponin 5 2HR 80.33 ng/L (0-15)
[2024-10-15 10:37] LABS: Troponin 5 2HR Delta -3.67 ABS# (0-10)
[2024-10-15 10:38] LABS: Blood Urea Nitrogen 71 mg/dL (6-20); Calcium 8.9 mg/dL (8.5-10.5); Carbon Dioxide 27 mmol/L (22-29); Chloride 94 mmol/L (98-107); Creatinine Clr Calc Pharmacy 4.6174; Glucose 60 mg/dL (65-115); Osmolality Calculated 307 mOsm/kg (285-295); Sodium 139 mmol/L (136-145)
[2024-10-15 10:45] LABS: Anion Gap 24.5 (5-19); Potassium 6.5 mmol/L (3.5-5.1)
[2024-10-15 11:32] LABS: Hematocrit 38.4 % (37-53); Hemoglobin 11.80 g/dL (11.27-16.99); Mean Corpuscular HGB Conc 30.7 g/dL (30-55); Mean Corpuscular Hemoglobin 32.1 pg (27-33); Mean Corpuscular Volume 104.3 fl (82-101); Nucleated Red Blood Cells % 0 %; Platelet Count 160 10^3/cmm (157-399); Red Blood Count 3.68 10^6/uL (3.85-5.65); White Blood Count 6.35 10^3/uL (3.29-11.43)
[2024-10-15] MEDS: heparin, porcine 1,000 unit/mL INJ 10 mL 1000 UNIT IV (11:53)
--- NOTE | 2024-10-15 12:01 | PC.HD ---
Patient presents with a small band-aid covering his HD catheter site. Patient has historically refused to leave the dressing he receives at clinic, and removes it. Multiple discussions have been had with patient explaining the need to keep his dressing on to prevent infection, however, patient refuses to comply.
--- NOTE | 2024-10-15 13:07 | ECG_ITS ---
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 Measurements Intervals [place] Rate: 88 P: 0 [place]: 0 QRS: 73 QRSD: 97 T: 87 QT: 409 QTc: 495 Interpretive Statements ATRIAL FIBRILLATION WITH ABERRANT CONDUCTION OR VENTRICULAR PREMATURE COMPLEXES ABNORMAL RHYTHM ECG Compared to ECG 10/15/2024 08:53:19 T-wave abnormality no longer present Possible ischemia no longer present Electronically Signed On 10-15-2024 14:16:04 CDT by Shanna Sosa M.D. [id number] [id number]
[2024-10-15 13:32] LABS: Troponin 5 6HR 79.81 ng/L (0-15)
[2024-10-15 13:33] LABS: Troponin 5 6HR Delta -4.19 ng/L (0-12)
[2024-10-15 13:36] LABS: Anion Gap 20.2 (5-19); Blood Urea Nitrogen 47 mg/dL (6-20); Calcium 8.3 mg/dL (8.5-10.5); Carbon Dioxide 26 mmol/L (22-29); Chloride 95 mmol/L (98-107); Creatinine Clr Calc Pharmacy 6.6202; Glucose 108 mg/dL (65-115); Magnesium 1.9 mg/dL (1.7-2.3); Osmolality Calculated 297 mOsm/kg (285-295); Potassium 4.2 mmol/L (3.5-5.1); Sodium 137 mmol/L (136-145)
[2024-10-15] MEDS: cefTRIAXone 1,000 mg SDV 1000 MG IVP (16:30)
[2024-10-15] MEDS: water for injection-sterile 20 ML 10000 ML (16:31)
--- NOTE | 2024-10-15 16:55 | P.CONIM_ITS ---
Providers/Reason For Consult 2 Consulting Physician/Specialty*: kommana/Nephrology Reason for Consult*: ESRD Attending Physician: Cassidy Serrano MD Primary Care Provider: Ras Joy History of Present Illness History of Present Illness Leopoldo Schaefer is a 49 year old male Review of Systems 2 Narrative: NEGATIVE Medications/Allergies Home Medications ?Medication ?Instructions ?Recorded ?Confirmed ?Last Taken ?Type furosemide 80 mg tablet 80 mg PO BID 09/14/2309/21/24 History trazodone 150 mg tablet 150 mg PO BEDTIME 01/17/24 0 10/15/24 09/20/24 20:00 History albuterol sulfate 90 mcg/actuation 1 inh inhalation Q6 H PRN shortness 09/23/24 10/15/24 Unknown Rx aerosol inhaler (Ventolin HFA) of breath or wheezing # 8.5 grams aspirin 81 mg tablet 81 mg PO DAILY 30 days #30 t abs 09/23/24 10/15/24 Unknown Rx atorvastatin 40 mg tablet 40 mg PO BEDTIME 30 days #30 tabs 09/23/24 10/15/24 Unknown Rx fluticasone 250 mcg-salmeterol 50 1 inh inhalation BID #60 ea 09/23/24 10/15/24 Unknown Rx mcg/dose blistr powdr for inhalation (Advair Diskus) metoprolol tartrate 25 mg tablet 25 mg PO BID@0900,210 0 30 days #60 09/23/24 10/15/24 Unknown Rx tabs Allergies Allergy/AdvReac Type Severity Reaction Status Date / Time lisinopril Allergy swelling Verified 03/15/24 22:51 Penicillins Allergy ALGY-Hives Verified 03/15/24 22:51 tramadol Allergy ALGY-Hives Verified 03/15/24 22:51 Current Medications Generic Name Dose Route Start Last Admin Trade Name Freq PRN Reason Stop Dose Admin Albuterol Sulfate 2.5 mg 10/15/24 12:00 10/15/24 15:21 Albuterol 2.5 Mg/3 Ml Neb INHALATION 2.5 mg QID.RESPIRATORY FRANCISCO Administration Aspirin 81 mg 10/15/24 09:00 10/15/24 09:18 Aspirin 81 Mg Ec Tablet PO 81 mg DAILY FRANCISCO Administration Ceftriaxone Sodium 1,000 mg 10/15/24 16:00 10/15/24 16:30 Ceftriaxone 1,000 Mg Sdv IVP 1,000 mg Q24H FRANCISCO Administration Protocol Heparin Sodium (Porcine) 5,000 unit 10/15/24 07:30 10/15/24 07:48 Heparin 5,000 Unit/Ml Inj 1 Ml SUBCUT 5,000 unit Q12H FRANCISCO Administration Esmolol HCl 2,500 mg in 250 mls @ 0 mls/hr 10/15/24 07:15 10/15/24 16:13 Brevibloc Drip IV Infused .Q0M FRANCISCO Titration Protocol Per Protocol Ondansetron HCl 4 mg 10/15/24 07:24 10/15/24 07:45 Ondansetron 2 Mg/Ml Sdv 2 Ml IVP 4 mg Q6H PRN Administration NAUSEA AND VOMITING Pantoprazole Sodium 40 mg 10/15/24 09:00 10/15/24 09:17 Pantoprazole 40 Mg Sdv IVP 40 mg DAILY FRANCISCO Administration PFSH Acute 2 PFSH: Medical History (Updated 10/15/24 @ 18:21 by Shanna Sosa MD) Diastolic CHF Atrial fibrillation with RVR End stage kidney disease Uncontrolled hypertension Hypoglycemia Atrial fibrillation with RVR COPD exacerbation Pulmonary edema Non-compliance with renal dialysis End stage renal disease Anxiety and depression Obstructive sleep apnea Allergic dermatitis ESRD (end stage renal disease) Pleural effusion Dialysis patient Hypertensive emergency Atrial fibrillation/flutter Chest pain Elevated troponin Resistant hypertension Paroxysmal atrial fibrillation with RVR End stage chronic kidney disease Anemia Sebaceous cyst GERD (gastroesophageal reflux disease) Insomnia COPD (chronic obstructive pulmonary disease) Reports he is on 4 L of oxygen at home Hypoxia Anxiety and depression Lower respiratory tract infection Encounter to establish care Vitamin D deficiency Hypertension CRF (chronic renal failure) Surgical History S/P hemodialysis catheter insertion H/O hand surgery right hand with hardware H/O circumcision Presence of peritoneal dialysis catheter S/P dialysis catheter insertion (12/12/19) Removed on 04/04/2020 Family History Other Adopted Denies family history of Anesthesia complication Bleeding disorder Social History Smoking and tobacco/nicotine status: current every day tobacco/nicotine user (1ppd X26 years) cigarettes [ Other cigarette details: On and off quitting and restarting] Alcohol intake: never Substance/Drug Use: never Household members: significant other Marital status: Single Current occupational status: disabled Vitals/I&O/Wt Last Vital Signs Temp 97.7 F 10/15/24 16:11 Pulse 94 10/15/24 16:11 Resp 16 10/15/24 16:11 BP 160/120 10/15/24 16:11 Pulse Ox 94 10/15/24 16:00 O2 Del Method Nasal Cannula 10/15/24 15:25 O2 Flow Rate 3 10/15/24 15:25 FiO2 30 10/15/24 11:00 10/15/24 10/15/24 10/15/24 06:59 14:59 22:59 Intake Total 950 / 950 570 / 1520 Output Total 4300 / 4300 Balance 950 / 950 -3730 / -2780 Weight last 48 hrs Weight 94.5 kg Weight 44.452 kg Weight 93.395 kg Physical Exam 2 Narrative: awake , alert ON BIPAP PEERLA S1S2 RRR per report Lungs with crackles jeffrey Abd soft , non tender per report + edema Data 10/16/24 05:47 10/16/24 05:47 Micro: Microbiology 10/15/24 06:43 Blood Culture - Preliminary Blood SPECIMEN COLLECTED 10/15/24 06:34 Blood Culture - Preliminary Blood SPECIMEN COLLECTED A&P Assessment and plan 1. ESRD on dialysis: 1. End-stage renal disease: MWF schedule, missed hemodialysis on Thursday presented with volume overload, plan for emergent HD today with ultrafiltration up to 4 L as tolerated 2. Hyperkalemia, HD as above on low potassium diet 3. A-fib with RVR, 4. History of hypertension, blood pressure controlled 5. History of CHF Patient evaluated using audiovisual cart. Time spent 40 minutes. PDMP PDMP Reviewed: Not Reviewed Consult Attestations 2 Medical Necessity Statement: per leo Coding Level of Care Code Acute Code for Chg Fwd Diagnoses ESRD on dialysis N18.6; Z99.2
--- NOTE | 2024-10-15 17:18 | PC.NURSE ---
pt weaned off esmolol have increased metorplol prior and blood pressure remains high , dialysis nurse stated pressure drops after treatment ,doctor called with update will monitor at this time . Has ate several icecreams today breakfast and lunch along with sandwich and snack
[2024-10-15 17:32] LABS: Anion Gap 16.2 (5-19); Blood Urea Nitrogen 29 mg/dL (6-20); Calcium 8.2 mg/dL (8.5-10.5); Carbon Dioxide 24 mmol/L (22-29); Chloride 99 mmol/L (98-107); Creatinine Clr Calc Pharmacy 15.7185; Glucose 101 mg/dL (65-115); Osmolality Calculated 286 mOsm/kg (285-295); Potassium 4.2 mmol/L (3.5-5.1); Sodium 135 mmol/L (136-145)
--- NOTE | 2024-10-15 17:59 | P.CONIM_ITS ---
Providers/Reason For Consult 2 Consulting Physician/Specialty*: Dr. XIN Sosa,/cardiology Reason for Consult*: Patient with wide-complex tachycardia Requesting Physician: Dr. Serrano Attending Physician: Cassidy Serrano MD Primary Care Provider: Ras Joy History of Present Illness History of Present Illness Leopoldo Schaefer is a 49 year old male with a history of end-stage renal disease, he is admitted to the hospital through the emergency room, where he presented with complaints of generalized weakness and shortness of breath. He was found to be fluid overloaded. Apparently he missed his dialysis on Thursday. He is currently getting hemodialysis in the ICU. He was found to have an episode of wide-complex tachycardia on the monitor. Cardiology consult is requested for further cardiac evaluation and recommendations. This patient has no previous history of coronary cardiac arrhythmia, myocardial infarction or congestive heart failure. He is getting his dialysis 3 times a week. Apparently he missed the last dialysis. He was found to be fluid overloaded. His potassium was found to be 6.2. Telemetry showed a wide-complex tachycardia at the rate of 200 bpm, lasting for 12 seconds. Patient apparently did not have any symptoms. He denies any chest pain or chest tightness. No palpitations. According to the nursing staff, the patient is very drowsy all the time and does not talk much. Mostly answers the questions with yes or no. He is currently getting the hemodialysis. Plan is to take out 4 L of fluid. Patient has a history of a chronic remittent atrial fibrillation. He has been on long-term oral anticoagulation. Currently he is not on any anticoagulation. Exact reasons are not known. Review of Systems 2 Narrative: CONSTITUTIONAL: No fever or chills. EYES: No blurring of vision or other visual disturbances lately. ENT: No hoarseness of voice, auditory disturbances or sore throat. CARDIOVASCULAR: As mentioned above. RESPIRATORY: No significant cough. GASTROINTESTINAL: No hematemesis or melena. GENITOURINARY: End-stage renal disease, on hemodialysis INTEGUMENTARY: No skin rashes or history of skin cancer. NEURO: Patient is sleepy most of the time PSYCHIATRIC: No history of psychosis or major depression. HEMATOLOGIC: No bleeding disorders or significant anemia. ENDOCRINE: No history of polyuria or polydipsia. MUSCULOSKELETAL: No recent joint pain or swelling. ALLERGY/IMMUNOLOGY: As mentioned above. Medications/Allergies Home Medications ?Medication ?Instructions ?Recorded ?Confirmed ?Last Taken ?Type furosemide 80 mg tablet 80 mg PO BID 09/14/2309/21/24 History trazodone 150 mg tablet 150 mg PO BEDTIME 01/17/24 0 10/15/24 09/20/24 20:00 History albuterol sulfate 90 mcg/actuation 1 inh inhalation Q6 H PRN shortness 09/23/24 10/15/24 Unknown Rx aerosol inhaler (Ventolin HFA) of breath or wheezing # 8.5 grams aspirin 81 mg tablet 81 mg PO DAILY 30 days #30 t abs 09/23/24 10/15/24 Unknown Rx atorvastatin 40 mg tablet 40 mg PO BEDTIME 30 days #30 tabs 09/23/24 10/15/24 Unknown Rx fluticasone 250 mcg-salmeterol 50 1 inh inhalation BID #60 ea 09/23/24 10/15/24 Unknown Rx mcg/dose blistr powdr for inhalation (Advair Diskus) metoprolol tartrate 25 mg tablet 25 mg PO BID@0900,210 0 30 days #60 09/23/24 10/15/24 Unknown Rx tabs Allergies Allergy/AdvReac Type Severity Reaction Status Date / Time lisinopril Allergy swelling Verified 03/15/24 22:51 Penicillins Allergy ALGY-Hives Verified 03/15/24 22:51 tramadol Allergy ALGY-Hives Verified 03/15/24 22:51 Current Medications Generic Name Dose Route Start Last Admin Trade Name Freq PRN Reason Stop Dose Admin Albuterol Sulfate 2.5 mg 10/15/24 12:00 10/15/24 15:21 Albuterol 2.5 Mg/3 Ml Neb INHALATION 2.5 mg QID.RESPIRATORY FRANCISCO Administration Aspirin 81 mg 10/15/24 09:00 10/15/24 09:18 Aspirin 81 Mg Ec Tablet PO 81 mg DAILY FRANCISCO Administration Ceftriaxone Sodium 1,000 mg 10/15/24 16:00 10/15/24 16:30 Ceftriaxone 1,000 Mg Sdv IVP 1,000 mg Q24H FRANCISCO Administration Protocol Heparin Sodium (Porcine) 5,000 unit 10/15/24 07:30 10/15/24 07:48 Heparin 5,000 Unit/Ml Inj 1 Ml SUBCUT 5,000 unit Q12H FRANCISCO Administration Esmolol HCl 2,500 mg in 250 mls @ 0 mls/hr 10/15/24 07:15 10/15/24 16:13 Brevibloc Drip IV Infused .Q0M FRANCISCO Titration Protocol Per Protocol Ondansetron HCl 4 mg 10/15/24 07:24 10/15/24 07:45 Ondansetron 2 Mg/Ml Sdv 2 Ml IVP 4 mg Q6H PRN Administration NAUSEA AND VOMITING Pantoprazole Sodium 40 mg 10/15/24 09:00 10/15/24 09:17 Pantoprazole 40 Mg Sdv IVP 40 mg DAILY FRANCISCO Administration PFSH Acute 2 PFSH: Medical History Atrial fibrillation with RVR End stage kidney disease Uncontrolled hypertension Hypoglycemia Atrial fibrillation with RVR COPD exacerbation Pulmonary edema Non-compliance with renal dialysis End stage renal disease Anxiety and depression Obstructive sleep apnea Allergic dermatitis ESRD (end stage renal disease) Pleural effusion Dialysis patient Hypertensive emergency Atrial fibrillation/flutter Chest pain Elevated troponin Resistant hypertension Paroxysmal atrial fibrillation with RVR End stage chronic kidney disease Anemia Diastolic CHF Sebaceous cyst GERD (gastroesophageal reflux disease) Insomnia COPD (chronic obstructive pulmonary disease) Reports he is on 4 L of oxygen at home Hypoxia Anxiety and depression Lower respiratory tract infection Encounter to establish care Vitamin D deficiency Hypertension CRF (chronic renal failure) Surgical History S/P hemodialysis catheter insertion H/O hand surgery right hand with hardware H/O circumcision Presence of peritoneal dialysis catheter S/P dialysis catheter insertion (12/12/19) Removed on 04/04/2020 Family History Other Adopted Denies family history of Anesthesia complication Bleeding disorder Social History Smoking and tobacco/nicotine status: current every day tobacco/nicotine user (1ppd X26 years) cigarettes [ Other cigarette details: On and off quitting and restarting] Alcohol intake: never Substance/Drug Use: never Household members: significant other Marital status: Single Current occupational status: disabled Vitals/I&O/Wt Last Vital Signs Temp 97.7 F 10/15/24 16:11 Pulse 94 10/15/24 16:11 Resp 16 10/15/24 16:11 BP 160/120 10/15/24 16:11 Pulse Ox 94 10/15/24 16:00 O2 Del Method Nasal Cannula 10/15/24 15:25 O2 Flow Rate 3 10/15/24 15:25 FiO2 30 10/15/24 11:00 10/15/24 10/15/24 10/15/24 06:59 14:59 22:59 Intake Total 950 / 950 570 / 1520 Output Total 4300 / 4300 Balance 950 / 950 -3730 / -2780 Weight last 48 hrs Weight 208 lb 5.389 oz Weight 98 lb Weight 205 lb 14.4 oz Physical Exam 2 Narrative: GENERAL: The patient is sleepy, keeps his eyes closed. Responds to question by yes or no. Not in any acute distress. Obese HEENT: No significant pallor, icterus or lymphadenopathy.Oral cavity: There are no mucous membrane lesions. NECK: Trachea appears to be central. No masses noted. No JVD or thyromegaly appreciated. RESPIRATORY: Chest is symmetrical. No intercostals muscle retraction or any accessory muscle activation. There is no chest wall tenderness. Breath sounds are heard bilaterally. No rales or rhonchi heard. No evidence of any consolidation. BREASTS: Deferred. HEART: The heart sounds are normal. No S3 or S4. Short systolic murmur at the lower sternal border. No pericardial rub ABDOMEN: No vessel pulsations or distention. No tenderness. No organomegaly appreciated. Bowel sounds are normally heard. : Deferred. RECTAL: Deferred. LYMPHATIC: No lymphadenopathy noted in the neck. EXTREMITIES: No edema or cyanosis. No clubbing. MUSCULOSKELETAL: No acute joint deformities or swelling SKIN: There are no significant rashes or ecchymosis NEUROPSYCHIATRIC: The patient is alert and oriented x3. Appears to be in a good mood. No tremors or rigidity noted. Data 10/15/24 10:53 10/15/24 16:57 Other Labs: Laboratory Last Values WBC 6.35 10^3/uL (3.29-11.43) 10/15/24 10:53 RBC 3.68 10^6/uL (3.85-5.65) L 10/15/24 10:53 Hgb 11.80 g/dL (11.27-16.99) 10/15/24 10:53 Hct 38.4 % (37-53) 10/15/24 10:53 MCV 104.3 fl (82-101) H 10/15/24 10:53 MCH 32.1 pg (27-33) 10/15/24 10:53 MCHC 30.7 g/dL (30-55) 10/15/24 10:53 RDW 16.2 % (12.1-15.1) H 10/15/24 10:53 Plt Count 160 10^3/cmm (157-399) 10/15/24 10:53 MPV 10.0 fL (7.4-10.4) 10/15/24 10:53 Neut % (Auto) 75.6 % 10/15/24 10:53 Lymph % (Auto) 8.2 % 10/15/24 10:53 Bureau % (Auto) 10.1 % 10/15/24 10:53 Eos % (Auto) 5.0 % 10/15/24 10:53 Baso % (Auto) 0.9 % 10/15/24 10:53 Neut # (Auto) 4.80 10^3/uL (1.8-7.7) 10/15/24 10:53 Lymph # (Auto) 0.5 10^3/uL (0.8-4.8) L 10/15/24 10:53 Bureau # (Auto) 0.6 10^3/uL (0.2-0.9) 10/15/24 10:53 Eos # (Auto) 0.3 10^3/uL (0.0-0.8) 10/15/24 10:53 Baso # (Auto) 0.1 10^3/uL (0.0-0.1) 10/15/24 10:53 Nucleated RBC % (auto) 0 % 10/15/24 10:53 Nucleated RBCs # 0.0 /100WBC 10/15/24 10:53 Sodium 135 mmol/L (136-145) L 10/15/24 16:57 Potassium 4.2 mmol/L (3.5-5.1) 10/15/24 16:57 Chloride 99 mmol/L (98-107) 10/15/24 16:57 Carbon Dioxide 24 mmol/L (22-29) 10/15/24 16:57 Anion Gap 16.2 (5-19) 10/15/24 16:57 BUN 29 mg/dL (6-20) H 10/15/24 16:57 Creatinine 6.2 mg/dL (0.7-1.2) H* 10/15/24 16:57 GFR Calculation 9.6 mL/min (90-130) L 10/15/24 16:57 Glucose 101 mg/dL (65-115) 10/15/24 16:57 POC Glucose 83 mg/dL (70-110) 10/15/24 17:40 Calculated Osmolality 286 mOsm/kg (285-295) 10/15/24 16:57 Calcium 8.2 mg/dL (8.5-10.5) L 10/15/24 16:57 Magnesium 1.9 mg/dL (1.7-2.3) 10/15/24 12:57 Total Bilirubin 0.4 mg/dL (0.15-1.2) 10/15/24 06:34 AST 18 U/L (0-40) 10/15/24 06:34 ALT 16 U/L (0-41) 10/15/24 06:34 Alkaline Phosphatase 250 U/L (40-130) H 10/15/24 06:34 Troponin T Baseline 84 ng/L (0-15) H 10/15/24 06:34 Troponin T 120 Minute 80.33 ng/L (0-15) H 10/15/24 09:44 Delta Troponin T -3.67 ABS# (0-10) L 10/15/24 09:44 Troponin T Hi Sens 6Hr 79.81 ng/L (0-15) H 10/15/24 12:57 Troponin T Hi Sens 6Hr Delta -4.19 ng/L (0-12) L 10/15/24 12:57 Total Protein 6.9 g/dL (6.6-8.7) 10/15/24 06:34 Albumin 3.6 g/dL (3.5-5.2) 10/15/24 06:34 Globulin 3.3 g/dL (1.3-4.6) 10/15/24 06:34 Urine Color Yellow (Yellow) 10/15/24 08:00 Urine Appearance Cloudy (CLEAR) A 10/15/24 08:00 Urine pH >=9.0 (5-7) A 10/15/24 08:00 Ur Specific [place] 1.008 (1.005-1.030) 10/15/24 08:00 Urine Protein 2+ (Negative) A 10/15/24 08:00 Urine Glucose (UA) Trace (Normal) H 10/15/24 08:00 Urine Ketones Negative (Negative) 10/15/24 08:00 Urine Blood Trace (Negative) A 10/15/24 08:00 Urine Nitrate Negative (Negative) 10/15/24 08:00 Urine Bilirubin Negative (Negative) 10/15/24 08:00 Urine Urobilinogen 0.2 mg/dL (Negative) 10/15/24 08:00 Ur Leukocyte Esterase 2+ (Negative) A 10/15/24 08:00 Urine RBC 0-2 /hpf (0-2) 10/15/24 08:00 Urine WBC 11-20 /hpf (0-5) H 10/15/24 08:00 Ur Squamous Epith Cells 0-5 /hpf (0-5) 10/15/24 08:00 Amorphous Sediment Not Reportable 10/15/24 08:00 Urine Bacteria None seen /hpf (NONE) 10/15/24 08:00 Hyaline Casts 0.40 /lpf 10/15/24 08:00 Hep Bs Antibody < 3.5 (11.5-1000) L 10/15/24 16:57 Micro: Microbiology 10/15/24 06:43 Blood Culture - Preliminary Blood SPECIMEN COLLECTED 10/15/24 06:34 Blood Culture - Preliminary Blood SPECIMEN COLLECTED Other data: The EKG from today revealed Atrial fibrillation with controlled ventricular response rate. Occasional PVCs Cardiac catheterization in 2020 * Left Main has no disease. * Left Anterior Descending has no disease. * Circumflex has no disease. * Mid Right Coronary Artery: luminal irregularities 20% stenosis, ALFRED: 3 flow. * Coronary angiography shows right dominance. A&P Assessment and plan 1. Nonsustained monomorphic ventricular tachycardia: Patient has an episode of asymptomatic nonsustained ventricular tachycardia. He has stable vitals. Most likely this is related to the atrial abnormalities of renal failure. He had no significant coronary disease by angiogram in 2020. At this point, the main focus should be to correct the electrolytes. I may increase the dose of the metoprolol to 50 mg p.o. twice daily. I may check the magnesium level on the blood in the lab. 2. Chronic atrial fibrillation: Patient is currently with a controlled ventricular response rate. Apparently he is not on any oral anticoagulation. Need to look into it. If there is no contraindication, he needs to be on the oral anticoagulant. 3. Benign hypertension: The blood pressure is in the 150 range, systolic. For better control of the blood pressure as well as for the arrhythmia, I will decrease the dose of the metoprolol to 50 mg p.o. twice daily. 4. Chronic diastolic congestive heart failure: Patient seems to be anuric. Currently he is getting the dialysis. Nephrology to adjust the volume 5. End stage renal disease on dialysis: Hemodialysis frequency and the filtration volume as per nephrology Plan: I may go ahead to do an echocardiogram duality LV function and rule out any other pathology. Based on the patient's clinical progress and the results of the above, further recommendations will be made. Thank you for the opportunity to eval this patient and make this recommendation PDMP PDMP Reviewed: Not Reviewed Consult Attestations 2 Medical Necessity Statement: Patient requires continued hospital stay for close monitoring and further management Coding Level of Care Code 39545 Diagnoses Nonsustained monomorphic ventricular tachycardia I47.29 Chronic atrial fibrillation I48.20 Benign hypertension I10 Chronic diastolic congestive heart failure I50.32 End stage renal disease on dialysis N18.6; Z99.2
--- NOTE | 2024-10-15 23:18 | PC.NURSE ---
Patient refusal of BiPap mask. Informed of risks and continued refusal. simple oxy mask offered instead also refused.
[2024-10-16] VITALS (35 sets, daily range): BP systolic 119–168; BP diastolic 78–117; PULSE 68–124; RESP 12–29; TEMP 36.3–36.6; O2SAT 91–100
[2024-10-16 06:04] LABS: Hematocrit 38.0 % (37-53); Hemoglobin 11.90 g/dL (11.27-16.99); Mean Corpuscular HGB Conc 31.3 g/dL (30-55); Mean Corpuscular Hemoglobin 32.5 pg (27-33); Mean Corpuscular Volume 103.8 fl (82-101); Nucleated Red Blood Cells % 0 %; Platelet Count 156 10^3/cmm (157-399); Red Blood Count 3.66 10^6/uL (3.85-5.65); White Blood Count 5.44 10^3/uL (3.29-11.43)
[2024-10-16 06:24] LABS: Alanine Aminotransferase 23 U/L (0-41); Albumin Level 3.1 g/dL (3.5-5.2); Alkaline Phosphatase 224 U/L (40-130); Anion Gap 16.3 (5-19); Aspartate Amino Transferase 25 U/L (0-40); Blood Urea Nitrogen 38 mg/dL (6-20); Calcium 8.5 mg/dL (8.5-10.5); Carbon Dioxide 28 mmol/L (22-29); Chloride 98 mmol/L (98-107); Creatinine Clr Calc Pharmacy 12.3991; Globulin 2.7 g/dL (1.3-4.6); Glucose 86 mg/dL (65-115); Magnesium 2.0 mg/dL (1.7-2.3); Osmolality Calculated 292 mOsm/kg (285-295); Potassium 5.3 mmol/L (3.5-5.1); Sodium 137 mmol/L (136-145); Total Protein 5.8 g/dL (6.6-8.7)
[2024-10-16] MEDS: heparin 5,000 unit/mL INJ 1 mL 5000 UNIT SUBCUT ×2 (06:56→17:53)
[2024-10-16] MEDS: pantoprazole 40 mg SDV IVP (09:37)
--- NOTE | 2024-10-16 09:40 | P.PN_ITS ---
Subjective 2 Subjective: Patient has no recurrence of ventricular tachycardia. Occasional PVCs are noted on the monitor. Seems to be more alert today. No chest pain or palpitations. No unusual shortness of breath. Medications: Medication Review Details: Current Medications Acetaminophen (Acetaminophen 325 Mg Tablet) 650 mg PO Q6H PRN PRN Reason: MILD PAIN Albuterol Sulfate (Albuterol 2.5 Mg/3 Ml Neb) 2.5 mg INHALATION QID.RESPIRATORY FRANCISCO Last Admin: 10/16/24 09:30 Dose: Not Given Albuterol/Ipratropium (Ipratropium-Albuterol 3 Ml Neb) 3 ml INHALATION Q6H PRN PRN Reason: SHORTNESS OF BREATH Amlodipine Besylate (Amlodipine 5 Mg Tablet) 5 mg PO DAILY FRANCISCO Last Admin: 10/16/24 09:36 Dose: 5 mg Aspirin (Aspirin 81 Mg Ec Tablet) 81 mg PO DAILY FRANCISCO Last Admin: 10/16/24 09:35 Dose: 81 mg Atorvastatin Calcium (Atorvastatin 40 Mg Tablet) 40 mg PO BEDTIME FRANCISCO Last Admin: 10/15/24 20:45 Dose: 40 mg Budesonide (Budesonide 0.5 Mg/2 Ml Neb) 0.5 mg INHALATION BID.RESPIRATORY FRANCISCO Last Admin: 10/16/24 09:30 Dose: Not Given Ceftriaxone Sodium (Ceftriaxone 1,000 Mg Sdv) 1,000 mg IVP Q24H FRANCISCO; Protocol Last Admin: 10/15/24 16:30 Dose: 1,000 mg Heparin Sodium (Porcine) (Heparin 5,000 Unit/Ml Inj 1 Ml) 5,000 unit SUBCUT Q12H FRANCISCO Last Admin: 10/16/24 06:56 Dose: 5,000 unit Esmolol HCl (Brevibloc Drip) 2,500 mg in 250 mls @ 0 mls/hr IV .Q0M FRANCISCO; Protocol Last Titration: 10/15/24 16:13 Dose: Infused Sodium Chloride (Sodium Chloride 0.9%) 1,000 mls @ 0 mls/hr IV .Q0M PRN PRN Reason: hypotension or symptomatic Albumin Human (Albumin) 12.5 gm in 50 mls @ 60 mls/hr IV PRN PRN PRN Reason: Hypotension and/or symptomatic Sodium Chloride (Sodium Chloride 0.9%) 1,000 mls @ 0 mls/hr IV .Q0M PRN PRN Reason: hypotension or symptomatic Albumin Human (Albumin) 12.5 gm in 50 mls @ 60 mls/hr IV PRN PRN PRN Reason: Hypotension and/or symptomatic Metoprolol Tartrate (Metoprolol Tartrate 50 Mg Tablet) 50 mg PO BID@0900,2100 [facility] Last Admin: 10/16/24 09:35 Dose: 50 mg Ondansetron HCl (Ondansetron 2 Mg/Ml Sdv 2 Ml) 4 mg IVP Q6H PRN PRN Reason: NAUSEA AND VOMITING Last Admin: 10/15/24 07:45 Dose: 4 mg Pantoprazole Sodium (Pantoprazole 40 Mg Sdv) 40 mg IVP DAILY [facility] Last Admin: 10/16/24 09:37 Dose: 40 mg Trazodone HCl (Trazodone 150 Mg Tablet) 150 mg PO BEDTIME [facility] Last Admin: 10/15/24 20:45 Dose: 150 mg Vitals/I&O/Wt Last Vital Signs Temp 97.7 F 10/15/24 16:11 Pulse 80 10/16/24 09:30 Resp 16 10/16/24 09:30 BP 128/78 10/16/24 06:00 Pulse Ox 92 10/16/24 09:30 O2 Del Method Room Air 10/16/24 09:30 O2 Flow Rate 3 10/15/24 20:04 FiO2 30 10/15/24 11:00 10/15/24 10/16/24 10/16/24 22:59 06:59 14:59 Intake Total 1350 / 2300 240 / 2540 Output Total 4300 / 4300 Balance -2950 / -2000 240 / -1760 Weight last 48 hrs Weight 205 lb 0.478 oz Weight 205 lb 0.478 oz Weight 208 lb 5.389 oz Weight 98 lb Weight 205 lb 14.4 oz Physical Exam 2 Narrative: GENERAL: The patient is sleepy, keeps his eyes closed. Responds to question by yes or no. Not in any acute distress. Obese HEENT: No significant pallor, icterus or lymphadenopathy.Oral cavity: There are no mucous membrane lesions. NECK: Trachea appears to be central. No masses noted. No JVD or thyromegaly appreciated. RESPIRATORY: Chest is symmetrical. No intercostals muscle retraction or any accessory muscle activation. There is no chest wall tenderness. Breath sounds are heard bilaterally. No rales or rhonchi heard. No evidence of any consolidation. BREASTS: Deferred. HEART: The heart sounds are normal. No S3 or S4. Short systolic murmur at the lower sternal border. No pericardial rub ABDOMEN: No vessel pulsations or distention. No tenderness. No organomegaly appreciated. Bowel sounds are normally heard. : Deferred. RECTAL: Deferred. LYMPHATIC: No lymphadenopathy noted in the neck. EXTREMITIES: 1+ edema both lower extremities. MUSCULOSKELETAL: No acute joint deformities or swelling SKIN: There are no significant rashes or ecchymosis NEUROPSYCHIATRIC: The patient is alert and oriented x3. Appears to be in a good mood. No tremors or rigidity noted. Data 10/16/24 05:47 10/16/24 05:47 Other Labs: Laboratory Last Values WBC 5.44 10^3/uL (3.29-11.43) 10/16/24 05:47 RBC 3.66 10^6/uL (3.85-5.65) L 10/16/24 05:47 Hgb 11.90 g/dL (11.27-16.99) 10/16/24 05:47 Hct 38.0 % (37-53) 10/16/24 05:47 MCV 103.8 fl (82-101) H 10/16/24 05:47 MCH 32.5 pg (27-33) 10/16/24 05:47 MCHC 31.3 g/dL (30-55) 10/16/24 05:47 RDW 16.2 % (12.1-15.1) H 10/16/24 05:47 Plt Count 156 10^3/cmm (157-399) L 10/16/24 05:47 MPV 9.6 fL (7.4-10.4) 10/16/24 05:47 Neut % (Auto) 65.9 % 10/16/24 05:47 Lymph % (Auto) 15.1 % 10/16/24 05:47 [place] % (Auto) 10.3 % 10/16/24 05:47 Eos % (Auto) 7.4 % 10/16/24 05:47 Baso % (Auto) 1.1 % 10/16/24 05:47 Neut # (Auto) 3.59 10^3/uL (1.8-7.7) 10/16/24 05:47 Lymph # (Auto) 0.8 10^3/uL (0.8-4.8) 10/16/24 05:47 [place] # (Auto) 0.6 10^3/uL (0.2-0.9) 10/16/24 05:47 Eos # (Auto) 0.4 10^3/uL (0.0-0.8) 10/16/24 05:47 Baso # (Auto) 0.1 10^3/uL (0.0-0.1) 10/16/24 05:47 Nucleated RBC % (auto) 0 % 10/16/24 05:47 Nucleated RBCs # 0.0 /100WBC 10/16/24 05:47 Sodium 137 mmol/L (136-145) 10/16/24 05:47 Potassium 5.3 mmol/L (3.5-5.1) H 10/16/24 05:47 Chloride 98 mmol/L (98-107) 10/16/24 05:47 Carbon Dioxide 28 mmol/L (22-29) 10/16/24 05:47 Anion Gap 16.3 (5-19) 10/16/24 05:47 BUN 38 mg/dL (6-20) H 10/16/24 05:47 Creatinine 7.8 mg/dL (0.7-1.2) H* 10/16/24 05:47 GFR Calculation 7.4 mL/min (90-130) L 10/16/24 05:47 Glucose 86 mg/dL (65-115) 10/16/24 05:47 POC Glucose 83 mg/dL (70-110) 10/15/24 17:40 Calculated Osmolality 292 mOsm/kg (285-295) 10/16/24 05:47 Calcium 8.5 mg/dL (8.5-10.5) 10/16/24 05:47 Magnesium 2.0 mg/dL (1.7-2.3) 10/16/24 05:47 Total Bilirubin 0.4 mg/dL (0.15-1.2) 10/16/24 05:47 AST 25 U/L (0-40) 10/16/24 05:47 ALT 23 U/L (0-41) 10/16/24 05:47 Alkaline Phosphatase 224 U/L (40-130) H 10/16/24 05:47 Troponin T Baseline 84 ng/L (0-15) H 10/15/24 06:34 Troponin T 120 Minute 80.33 ng/L (0-15) H 10/15/24 09:44 Delta Troponin T -3.67 ABS# (0-10) L 10/15/24 09:44 Troponin T Hi Sens 6Hr 79.81 ng/L (0-15) H 10/15/24 12:57 Troponin T Hi Sens 6Hr Delta -4.19 ng/L (0-12) L 10/15/24 12:57 Total Protein 5.8 g/dL (6.6-8.7) L 10/16/24 05:47 Albumin 3.1 g/dL (3.5-5.2) L 10/16/24 05:47 Globulin 2.7 g/dL (1.3-4.6) 10/16/24 05:47 Urine Color Yellow (Yellow) 10/15/24 08:00 Urine Appearance Cloudy (CLEAR) A 10/15/24 08:00 Urine pH >=9.0 (5-7) A 10/15/24 08:00 Ur Specific [place] 1.008 (1.005-1.030) 10/15/24 08:00 Urine Protein 2+ (Negative) A 10/15/24 08:00 Urine Glucose (UA) Trace (Normal) H 10/15/24 08:00 Urine Ketones Negative (Negative) 10/15/24 08:00 Urine Blood Trace (Negative) A 10/15/24 08:00 Urine Nitrate Negative (Negative) 10/15/24 08:00 Urine Bilirubin Negative (Negative) 10/15/24 08:00 Urine Urobilinogen 0.2 mg/dL (Negative) 10/15/24 08:00 Ur Leukocyte Esterase 2+ (Negative) A 10/15/24 08:00 Urine RBC 0-2 /hpf (0-2) 10/15/24 08:00 Urine WBC 11-20 /hpf (0-5) H 10/15/24 08:00 Ur Squamous Epith Cells 0-5 /hpf (0-5) 10/15/24 08:00 Amorphous Sediment Not Reportable 10/15/24 08:00 Urine Bacteria None seen /hpf (NONE) 10/15/24 08:00 Hyaline Casts 0.40 /lpf 10/15/24 08:00 Hep Bs Antibody < 3.5 (11.5-1000) L 10/15/24 16:57 Micro: Microbiology 10/15/24 06:43 Blood Culture - Preliminary Blood SPECIMEN COLLECTED 10/15/24 06:34 Blood Culture - Preliminary Blood SPECIMEN COLLECTED Other data: The telemetry rhythm strip showed 25 beats of nonsustained ventricular tachycardia at a rate of 150 bpm-on 10/15/2024 Echocardiogram from today Mild diffuse hypokinesis of the left ventricle with ejection fraction of 50%.moderate left ventricular hypertrophy. Moderate biatrial enlargement. Normal right ventricular size and systolic function. Moderate mitral annular calcification. Thickened aortic valve. There is no pericardial effusion. There are no intracardiac masses. Compared to the study from 09/14/2023, there is a drop in the LV ejection fraction from 60% to 50% A&P Assessment and plan 1. Nonsustained monomorphic ventricular tachycardia: Patient has an episode of asymptomatic nonsustained ventricular tachycardia. He has stable vitals. Most likely this is related to the atrial abnormalities of renal failure. He had no significant coronary disease by angiogram in 2020. At this point, the main focus should be to correct the electrolytes. I may increase the dose of the metoprolol to 50 mg p.o. twice daily. I may check the magnesium level on the blood in the lab. May continue on the current medications. The magnesium level was 2.0. 2. Chronic atrial fibrillation: Patient is currently with a controlled ventricular response rate. Apparently he is not on any oral anticoagulation. Need to look into it. If there is no contraindication, he needs to be on the oral anticoagulant. 3. Benign hypertension: The blood pressure seems to be getting under control. 4. Chronic diastolic congestive heart failure: The heart failure is fairly compensated. May continue on the current management. 5. End stage renal disease on dialysis: Hemodialysis frequency and the filtration volume as per nephrology Plan: The echocardiac revealed an ejection fraction of 50%. No significant change from the previous study. The possibility of coronary ischemia causing the arrhythmia, and bicarb push may be appropriate to further evaluate. This was discussed with the patient in detail. He is already discussed with his to make a final decision. PDMP PDMP Reviewed: Not Reviewed Attestations 2 Medical Necessity Statement*: Deferred to the primary Coding Level of Care Code Acute Code for Chg Fwd Diagnoses Nonsustained monomorphic ventricular tachycardia I47.29 Chronic atrial fibrillation I48.20 Benign hypertension I10 Chronic diastolic congestive heart failure I50.32 End stage renal disease on dialysis N18.6; Z99.2
--- NOTE | 2024-10-16 10:28 | PC.NURSE ---
pt up in bed talking on phone with family has heart monitor off pt stated leave them off i hate those things, dietary in room upset also about time.. telling her if its any kind of vegtable do not put it on my plate i wont eat it. requesting ice cream and soda
[2024-10-16] MEDS: heparin, porcine 1,000 unit/mL INJ 10 mL 1000 UNIT IV (11:36)
--- NOTE | 2024-10-16 12:59 | USCV_ITS ---
Leopoldo Schaefer Age: 49 Gender: M : 1975 Exam Date: 10/16/2024 08:45 Ordering Phys: Shanna Sosa MD ([email or web address]) Technologist: Fantasma Cardozo [place] [facility] [place] Indication: afib BP: 128 / 78 HR: Rhythm: Sinus Technical Quality: Adequate MEASUREMENTS (Male / Female) Normal Values 2D ECHO LV Diastolic Diameter PLAX 4.4 cm 4.2 - 5.9 / 3.9 - 5.3 cm IVS Diastolic Thickness 1.7 cm 0.6 - 1.0 / 0.6 - 0.9 cm IVS Systolic Thickness 1.8 cm LVPW Diastolic Thickness 2.0 cm 0.6 - 1.0 / 0.6 - 0.9 cm LVPW Systolic Thickness 2.8 cm LVOT Diameter 2.2 cm LV Ejection Fraction 2D Teich 57.5 % LV Ejection Fraction MOD 4C 52.2 % LV Ejection Fraction MOD 2C 50.6 % LV Ejection Fraction 2C AL 48.7 % LA Diameter 5.0 cm RA Systolic Volume 4C AL 90.5 ml RA Systolic Volume 4C MOD 89.1 ml LA Sys Volume AL 102.1 cm cubed LA Sys Volume Index AL 47.7 cm cubed/m squared Aorta at Sinotubular Diameter 1.9 cm IVC Diameter 2.0 cm M-MODE LA Ao Ratio MM 1.4 AV Cusp Separation MM 1.8 cm FINDINGS Left Ventricle Mild diffuse hypokinesis of the left ventricle with ejection fraction of 50%.moderate left ventricular hypertrophy. Right Ventricle Normal right ventricular size and systolic function. Right Atrium Moderately increased right atrial size. Left Atrium Moderately increased left atrial size. Mitral Valve Moderate mitral annular calcification. Aortic Valve Thickened aortic valve. Tricuspid Valve No gross abnormalities noted Pulmonic Valve Pulmonic valve not well visualized. Pericardium No pericardial effusion. Aorta Normal aortic annulus size. IVC Normal IVC dimension with <50% respiratory change of the inferior vena cava. Estimated right atrial pressure of 8 mmHg CONCLUSIONS Mild diffuse hypokinesis of the left ventricle with ejection fraction of 50%.moderate left ventricular hypertrophy. Moderate biatrial enlargement. Normal right ventricular size and systolic function. Moderate mitral annular calcification. Thickened aortic valve. There is no pericardial effusion. There are no intracardiac masses. Compared to the study from 09/14/2023, there is a drop in the LV ejection fraction from 60% to 50% Dr Shanna Sosa MD FAC (Electronically Signed) Final Date: 16 October 2024 09:23 S
--- NOTE | 2024-10-16 13:47 | P.PN_ITS ---
Subjective 2 Subjective: s/p HD yesterday on 4 L o2 Medications: Reviewed: Yes Vitals/I&O/Wt Last Vital Signs Temp 97.5 F L 10/16/24 11:47 Pulse 97 10/16/24 11:47 Resp 16 10/16/24 11:47 BP 158/104 10/16/24 11:47 Pulse Ox 96 10/16/24 10:58 O2 Del Method Nasal Cannula 10/16/24 10:58 O2 Flow Rate 3 10/16/24 10:58 FiO2 30 10/15/24 11:00 10/15/24 10/16/24 10/16/24 22:59 06:59 14:59 Intake Total 1350 / 2300 240 / 2540 300 / 300 Output Total 4300 / 4300 Balance -2950 / -2000 240 / -1760 300 / 300 Weight last 48 hrs Weight 93 kg Weight 93 kg Weight 94.5 kg Weight 44.452 kg Weight 93.395 kg Physical Exam 2 Narrative: awake , alert ON BIPAP PEERLA S1S2 RRR per report Lungs with crackles jeffrey Abd soft , non tender per report + edema Data 10/16/24 05:47 10/16/24 05:47 Micro: Microbiology 10/15/24 06:43 Blood Culture - Preliminary Blood NEGATIVE TO DATE 10/15/24 06:34 Blood Culture - Preliminary Blood NEGATIVE TO DATE A&P Assessment and plan 1. ESRD on dialysis: 1. End-stage renal disease: MWF schedule, missed hemodialysis on Thursday presented with volume overload, s/p emergent HD yesterday with ultrafiltration up to 4 L as tolerated. plan for HD again today 2. Hyperkalemia, HD as above on low potassium diet 3. A-fib with RVR, 4. History of hypertension, blood pressure controlled 5. History of CHF Patient evaluated using audiovisual cart. Time spent 40 minutes. PDMP PDMP Reviewed: Not Reviewed Attestations 2 Medical Necessity Statement*: per leo Coding Level of Care Code Acute Code for Chg Fwd Diagnoses ESRD on dialysis N18.6; Z99.2
--- NOTE | 2024-10-16 14:47 | PC.NURSE ---
frequently takes off monitor patches replace when can also, refused lunch too many vegtables requesting freq soda and ice cream dialysis done at this time 3liters fluid off , talking with family on phone
[2024-10-16] MEDS: cefTRIAXone 1,000 mg SDV 1000 MG IVP (17:53)
[2024-10-16] MEDS: water for injection-sterile 20 ML 1000 ML (17:53)
--- NOTE | 2024-10-16 20:20 | PC.NURSE ---
Refusal Patient refusing to wear admeasurer. Patient states, I hate those things.
--- NOTE | 2024-10-16 22:09 | P.PN_ITS ---
Subjective 2 Subjective: s/p HD yesterday with 4 L taken off Patient is for another hemodialysis today. Denies any complaints could not tell why he misses too much dialysis chronically. Patient is just noncompliance with medical care and with hemodialysis Medications: Reviewed: Yes Vitals/I&O/Wt Last Vital Signs Temp 97.3 F L 10/16/24 15:02 Pulse 85 10/16/24 20:34 Resp 18 10/16/24 15:32 BP 147/94 10/16/24 20:30 Pulse Ox 97 10/16/24 21:00 O2 Del Method Nasal Cannula 10/16/24 15:32 O2 Flow Rate 3 10/16/24 15:32 FiO2 30 10/16/24 20:34 10/16/24 10/16/24 10/16/24 06:59 14:59 22:59 Intake Total 240 / 2540 650 / 650 320 / 970 Output Total 3300 / 3300 Balance 240 / -1760 650 / 650 -2980 / -2330 Weight last 48 hrs Weight 93 kg Weight 93 kg Weight 93 kg Weight 94.5 kg Weight 44.452 kg Weight 93.395 kg Physical Exam 2 Narrative: General the patient is lying down in bed in no apparent distress resting while awake yet another hemodialysis today. HEENT normocephalic atraumatic neck neck is supple cardiovascular heart rate is regular lungs are pretty much clear abdomen soft nontender nondistended unremarkable extremities are intact no edema has good pulses neurology has no focality lab studies lab studies reviewed and noted Data 10/16/24 05:47 10/16/24 05:47 Micro: Microbiology 10/15/24 06:43 Blood Culture - Preliminary Blood NEGATIVE TO DATE 10/15/24 06:34 Blood Culture - Preliminary Blood NEGATIVE TO DATE A&P Assessment and plan 1. ESRD on dialysis: Patient is with volume overload and chronically missing dialysis coming in also with hypertensive urgency Patient undergoing series of hemodialysis and is going for 1 today follow urine if 4 L taken out of fluid yesterday and dialysis 2. Fluid overload: Continue to take her fluid via hemodialysis patient is with volume overload 3. Accelerated hypertension: Patient blood pressure is now fairly controlled compared to patient's presentation of extreme high blood pressure we will continue to monitor 4. End stage renal disease on dialysis: Continue with hypertension optimizing with hemodialysis 5. Chronic anticoagulation: Continue chronic anticoagulation Plan: GI and DVT prophylaxis in place PDMP PDMP Reviewed: Last Reviewed 10/16/24 22:13 by Pau Koehler MD Attestations 2 Medical Necessity Statement*: [facility] Coding Level of Care Code 43000 Diagnoses ESRD on dialysis N18.6; Z99.2 Fluid overload E87.70 Accelerated hypertension I10 Chronic anticoagulation Z79.01 Time Spent (min) 30
--- NOTE | 2024-10-16 23:45 | PC.NURSE ---
Patient removing blood pressure cuff. Will not keep on.
[2024-10-17] VITALS (23 sets, daily range): BP systolic 117–164; BP diastolic 75–109; PULSE 61–90; RESP 15–18; TEMP 36.6–36.9; O2SAT 87–100
[2024-10-17] MEDS: heparin 5,000 unit/mL INJ 1 mL 5000 UNIT SUBCUT (05:56)
--- NOTE | 2024-10-17 06:16 | PC.NURSE ---
Patient refusing all monitoring except for pulse oximetry. Patient wore Bipap for approximately 3 hours before ripping it off and stating that he could not wear it anymore.
[2024-10-17 06:24] LABS: Hematocrit 40.5 % (37-53); Hemoglobin 12.60 g/dL (11.27-16.99); Mean Corpuscular HGB Conc 31.1 g/dL (30-55); Mean Corpuscular Hemoglobin 32.9 pg (27-33); Mean Corpuscular Volume 105.7 fl (82-101); Nucleated Red Blood Cells % 0 %; Platelet Count 158 10^3/cmm (157-399); Red Blood Count 3.83 10^6/uL (3.85-5.65); White Blood Count 5.11 10^3/uL (3.29-11.43)
[2024-10-17 06:37] LABS: Alanine Aminotransferase 21 U/L (0-41); Albumin Level 3.4 g/dL (3.5-5.2); Alkaline Phosphatase 246 U/L (40-130); Anion Gap 18.2 (5-19); Aspartate Amino Transferase 20 U/L (0-40); Blood Urea Nitrogen 31 mg/dL (6-20); Calcium 8.5 mg/dL (8.5-10.5); Carbon Dioxide 26 mmol/L (22-29); Chloride 98 mmol/L (98-107); Creatinine Clr Calc Pharmacy 14.6535; Globulin 3.0 g/dL (1.3-4.6); Glucose 83 mg/dL (65-115); Osmolality Calculated 290 mOsm/kg (285-295); Potassium 5.2 mmol/L (3.5-5.1); Sodium 137 mmol/L (136-145); Total Protein 6.4 g/dL (6.6-8.7)
--- NOTE | 2024-10-17 08:07 | PC.SOCIAL ---
IMM Update Pg. 2 of IMM updated and reviewed with patient, who verbalized understanding. Copy provided.
[2024-10-17] MEDS: pantoprazole 40 mg SDV IVP (08:10)
--- NOTE | 2024-10-17 09:27 | PC.NURSE ---
Patient continuing to refuse continuous ecg, o2 sensor, and blood pressure cuff. Education given on importance of monitoring equipment.
--- NOTE | 2024-10-17 09:43 | P.PN_ITS ---
Subjective 2 Subjective: Currently on 4 L O2 by nasal cannula Medications: Reviewed: Yes Vitals/I&O/Wt Last Vital Signs Temp 98.3 F 10/17/24 05:58 Pulse 85 10/17/24 07:40 Resp 18 10/17/24 07:35 BP 125/85 10/17/24 08:10 Pulse Ox 87 L 10/17/24 07:35 O2 Del Method Nasal Cannula 10/17/24 07:35 O2 Flow Rate 3 10/17/24 07:35 FiO2 30 10/16/24 23:33 10/16/24 10/17/24 10/17/24 22:59 06:59 14:59 Intake Total 542 / 1192 444 / 1636 250 / 250 Output Total 3300 / 3300 Balance -2758 / -2108 444 / -1664 250 / 250 Weight last 48 hrs Weight 93 kg Weight 93 kg Weight 93 kg Weight 93 kg Weight 94.5 kg Physical Exam 2 Narrative: awake , alert ON BIPAP PEERLA S1S2 RRR per report Lungs with crackles jeffrey Abd soft , non tender per report + edema Data 10/17/24 05:51 10/17/24 05:51 Micro: Microbiology 10/15/24 06:43 Blood Culture - Preliminary Blood NEGATIVE TO DATE 10/15/24 06:34 Blood Culture - Preliminary Blood NEGATIVE TO DATE A&P Assessment and plan 1. ESRD on dialysis: 1. End-stage renal disease: MWF schedule, missed hemodialysis on Thursday presented with volume overload, status post HD x 2 sessions due to volume overload, plan for HD again today and will continue MWF schedule 2. Hyperkalemia, HD as above on low potassium diet 3. A-fib with RVR, 4. History of hypertension, blood pressure controlled 5. History of CHF Patient evaluated using audiovisual cart. Time spent 40 minutes. PDMP PDMP Reviewed: Not Reviewed Attestations 2 Medical Necessity Statement*: Her medicine team Coding Level of Care Code Acute Code for Chg Fwd Diagnoses ESRD on dialysis N18.6; Z99.2
[2024-10-17] MEDS: heparin, porcine 1,000 unit/mL INJ 10 mL 1000 UNIT IV (09:50)
--- NOTE | 2024-10-17 10:06 | PC.HD ---
Patient initially refusing dialysis today, but agreed. Patient observed digging under his catheter dressing and pulling it almost off, and then scratching the catheter insertion site with his fingers. Old dressing removed, area cleansed well with chloraprep. Triple antibiotic ointment applied to catheter insertion site and new Covaderm applied. Currently c/d/i.
--- NOTE | 2024-10-17 13:49 | P.DS_ITS ---
Discharge Providers Date of Admission: 10/15/24 07:21 Date of Discharge: October 17, 2024 Attending Provider at Admission: Cassidy Serrano MD Attending Provider at Discharge: Pau Koehler MD Consults: [employer] Assistant [employer] Coach Primary Care Provider: Ras Joy Diagnoses at Discharge Discharge Diagnosis 1. ESRD on dialysis: 2. Diastolic CHF: 3. Benign hypertension: 4. Hyperkalemia: 5. Systolic CHF, acute: Reason for Visit Reason for Visit: shortness of breath Hospital Course Hospital Course Leopoldo Schaefer is a 49 year old male past medical history of end-stage renal disease on dialysis Thursday, history of atrial fibrillation, COPD, CHF, who presents [facility] for shortness of breath. Patient reports shortness of breath a lot over the last few days, and that he missed dialysis on Thursday. He is on 5 L of cannula at home however requiring 3 L at this time. 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 He states has been on dialysis for last 5 to 10 years. Denies chest pain nausea vomiting diarrhea. Denies abdominal pain. In ER he was noted to be hyperkalemic at 5.4. He was given calcium gluconate, insulin dextrose. Kayexalate was also ordered. He is noted to be in A-fib with RVR. 2.5 metoprolol IV push given and thereafter esmolol drip started. Patient had not had hemodialysis for over a week and came in for shortness of breath patient came in volume overloaded and requiring acute hemodialysis. Patient underwent 3 hemodialysis over the 3 days and now okay to be discharged. [employer] Assistant [employer] Coach if patient can be discharged from the standpoint and I agree patient is pretty much stable and fine and looking good and teaching have been given on medical noncompliance patient verbalized to me that he cannot promise that he will continue to go to dialysis as he had been required the reason he cannot say. While here patient was refusing everything telemetry some time oxygen that he is supposed to wear patient is on 5 L at home. Patient refused everything except for medication while in house. He came in very hypertensive. He has medication at home and he never took his blood pressure medicine. Patient received antibiotics during the time of this hospitalization for urinary tract infection Again patient was asymptomatic for urinary tract infection. Physical Exam Narrative: Patient is doing well and no upper respiratory transmission heard at evaluation this morning. Lungs are clear patient status post daily hemodialysis x 3 days. HEENT normocephalic/atraumatic neck neck is supple cardiovascular heart rate is regular lungs are pretty much clear abdomen soft nontender nondistended unremarkable extremities are intact no edema has good pulses neurology has no focality lab studies lab studies reviewed reviewed and noted. Discharge Data Studies Completed and Pending Completed Studies During Hospitalization Category Date Time Status XR chest 1V portable [id number] Stat Exams 10/15/24 06:17 Completed CV. echo limited [id number] Routine Ultrasound 10/16/24 12:59 Completed Pending at discharge Category Date Time Status Blood Culture Stat Lab 10/15/24 06:43 Results Comprehensive Metabolic Panel AM LABS Lab 10/18/24 04:00 Ordered Urine Culture Stat Lab 10/15/24 12:22 Uncollected Radiology Impressions Chest X-Ray 10/15/24 06:17 IMPRESSION: As above. Laboratory Results WBC 5.11 10^3/uL (3.29-11.43) 10/17/24 05:51 RBC 3.83 10^6/uL (3.85-5.65) L 10/17/24 05:51 Hgb 12.60 g/dL (11.27-16.99) 10/17/24 05:51 Hct 40.5 % (37-53) 10/17/24 05:51 MCV 105.7 fl (82-101) H 10/17/24 05:51 MCH 32.9 pg (27-33) 10/17/24 05:51 MCHC 31.1 g/dL (30-55) 10/17/24 05:51 RDW 15.9 % (12.1-15.1) H 10/17/24 05:51 Plt Count 158 10^3/cmm (157-399) 10/17/24 05:51 MPV 9.9 fL (7.4-10.4) 10/17/24 05:51 Neut % (Auto) 63.8 % 10/17/24 05:51 Lymph % (Auto) 17.4 % 10/17/24 05:51 [place] % (Auto) 9.6 % 10/17/24 05:51 Eos % (Auto) 7.6 % 10/17/24 05:51 Baso % (Auto) 1.4 % 10/17/24 05:51 Neut # (Auto) 3.26 10^3/uL (1.8-7.7) 10/17/24 05:51 Lymph # (Auto) 0.9 10^3/uL (0.8-4.8) 10/17/24 05:51 [place] # (Auto) 0.5 10^3/uL (0.2-0.9) 10/17/24 05:51 Eos # (Auto) 0.4 10^3/uL (0.0-0.8) 10/17/24 05:51 Baso # (Auto) 0.1 10^3/uL (0.0-0.1) 10/17/24 05:51 Nucleated RBC % (auto) 0 % 10/17/24 05:51 Nucleated RBCs # 0.0 /100WBC 10/17/24 05:51 Sodium 137 mmol/L (136-145) 10/17/24 05:51 Potassium 5.2 mmol/L (3.5-5.1) H 10/17/24 05:51 Chloride 98 mmol/L (98-107) 10/17/24 05:51 Carbon Dioxide 26 mmol/L (22-29) 10/17/24 05:51 Anion Gap 18.2 (5-19) 10/17/24 05:51 BUN 31 mg/dL (6-20) H 10/17/24 05:51 Creatinine 6.6 mg/dL (0.7-1.2) H* 10/17/24 05:51 GFR Calculation 8.9 mL/min (90-130) L 10/17/24 05:51 Glucose 83 mg/dL (65-115) 10/17/24 05:51 POC Glucose 113 mg/dL (70-110) H 10/16/24 11:13 Calculated Osmolality 290 mOsm/kg (285-295) 10/17/24 05:51 Calcium 8.5 mg/dL (8.5-10.5) 10/17/24 05:51 Magnesium 2.0 mg/dL (1.7-2.3) 10/16/24 05:47 Total Bilirubin 0.3 mg/dL (0.15-1.2) 10/17/24 05:51 AST 20 U/L (0-40) 10/17/24 05:51 ALT 21 U/L (0-41) 10/17/24 05:51 Alkaline Phosphatase 246 U/L (40-130) H 10/17/24 05:51 Troponin T Baseline 84 ng/L (0-15) H 10/15/24 06:34 Troponin T 120 Minute 80.33 ng/L (0-15) H 10/15/24 09:44 Delta Troponin T -3.67 ABS# (0-10) L 10/15/24 09:44 Troponin T Hi Sens 6Hr 79.81 ng/L (0-15) H 10/15/24 12:57 Troponin T Hi Sens 6Hr Delta -4.19 ng/L (0-12) L 10/15/24 12:57 Total Protein 6.4 g/dL (6.6-8.7) L 10/17/24 05:51 Albumin 3.4 g/dL (3.5-5.2) L 10/17/24 05:51 Globulin 3.0 g/dL (1.3-4.6) 10/17/24 05:51 Urine Color Yellow (Yellow) 10/15/24 08:00 Urine Appearance Cloudy (CLEAR) A 10/15/24 08:00 Urine pH >=9.0 (5-7) A 10/15/24 08:00 Ur Specific [place] 1.008 (1.005-1.030) 10/15/24 08:00 Urine Protein 2+ (Negative) A 10/15/24 08:00 Urine Glucose (UA) Trace (Normal) H 10/15/24 08:00 Urine Ketones Negative (Negative) 10/15/24 08:00 Urine Blood Trace (Negative) A 10/15/24 08:00 Urine Nitrate Negative (Negative) 10/15/24 08:00 Urine Bilirubin Negative (Negative) 10/15/24 08:00 Urine Urobilinogen 0.2 mg/dL (Negative) 10/15/24 08:00 Ur Leukocyte Esterase 2+ (Negative) A 10/15/24 08:00 Urine RBC 0-2 /hpf (0-2) 10/15/24 08:00 Urine WBC 11-20 /hpf (0-5) H 10/15/24 08:00 Ur Squamous Epith Cells 0-5 /hpf (0-5) 10/15/24 08:00 Amorphous Sediment Not Reportable 10/15/24 08:00 Urine Bacteria None seen /hpf (NONE) 10/15/24 08:00 Hyaline Casts 0.40 /lpf 10/15/24 08:00 Hep Bs Antibody < 3.5 (11.5-1000) L 10/15/24 16:57 Vitals Last Vital Signs Temp 97.9 F 10/17/24 13:14 Pulse 61 10/17/24 13:14 Resp 16 10/17/24 13:14 BP 162/98 10/17/24 13:14 Pulse Ox 100 10/17/24 13:06 O2 Del Method Nasal Cannula 10/17/24 13:06 O2 Flow Rate 5 10/17/24 13:06 FiO2 30 10/16/24 23:33 Discharge Plan Discharge Patient Disposition: Home Condition: Stable Prescriptions: New metoprolol tartrate 50 mg Tablet 50 mg PO BID@0900,2100 Qty: 60 0RF Continued trazodone 150 mg tablet 150 mg PO BEDTIME atorvastatin 40 mg Tablet 40 mg PO BEDTIME 30 Days Qty: 30 0RF aspirin 81 mg tablet 81 mg PO DAILY 30 Days Qty: 30 0RF albuterol sulfate [Ventolin HFA] 90 mcg/actuation HFA aerosol inhaler 1 inh inhalation Q6H PRN (Reason: shortness of breath or wheezing) Qty: 8.5 0RF fluticasone propion-salmeterol [Advair Diskus] 250-50 mcg/dose blister with device 1 inh inhalation BID Qty: 60 0RF furosemide 80 mg tablet 80 mg PO BID Qty: 60 0RF Discontinued metoprolol tartrate 25 mg Tablet 25 mg PO BID@0900,2100 30 Days Qty: 60 0RF Top Knitter OK for DC: Nephrology and Family Medicine Discharge Order = DC NOW: Discharge Order (Routine); Ordered 10/17/24 Ordered By: Pau Koehler Referrals: Ras Joy [Primary Care Provider, Family Practice] Discharge Diet: Cardiac Discharge Activity: Resume usual activity Patient Instructions: Metoprolol (By mouth), Heart Failure (DC), A-fib (Atrial Fibrillation) (DC), Heart Healthy Diet (DC), Chronic Hypertension (DC), Opioid Safety, Patient Portal & [facility]onita Instructions Discharge Attestations Time Spent in Discharge Care*: greater than 30 min Specific Discharge Activities: educating patient Other discharge activites (optional): Activities as tolerated Time Spent in Smoking Cessation: 3 to 10 minutes Patient extended into these days for an acute hemodialysis inpatient removing a total of 12 L of fluid from this patient. The forced they of dialysis 4 L was removed the next day another 4 L and today is 3.5 L was taken out. Patient is well confined to be discharged to follow-up with primary care doctor and also nephrology for dialysis days on Thursday patient has been urged to comply to continue to go for hemodialysis. Status at Discharge: Cognitive status at discharge: cognitively intact , Behavioral status at discharge: cooperative , Quality Metrics Clinical Quality Measures [ No reported AMI, CVA or VTE this stay] Coding Level of Care Code 04103 Diagnoses ESRD on dialysis N18.6; Z99.2 Diastolic CHF I50.30 Benign hypertension I10 Hyperkalemia E87.5 Systolic CHF, acute I50.21
--- NOTE | 2024-10-17 23:03 | P.PN_ITS ---
Subjective 2 Subjective: Patient is doing okay with no chest pain or any cardiac arrhythmia. Vitals/I&O/Wt Last Vital Signs Temp 98.2 F 10/17/24 17:34 Pulse 90 10/17/24 17:34 Resp 16 10/17/24 17:34 BP 147/90 10/17/24 17:34 Pulse Ox 98 10/17/24 17:34 O2 Del Method Nasal Cannula 10/17/24 13:06 O2 Flow Rate 5 10/17/24 13:06 FiO2 30 10/16/24 23:33 10/17/24 10/17/24 10/18/24 14:59 22:59 06:59 Intake Total 550 / 550 Output Total 3800 / 3800 Balance -3250 / -3250 Weight last 48 hrs Weight 199 lb 15.348 oz Weight 205 lb 0.478 oz Weight 205 lb 0.478 oz Weight 205 lb 0.478 oz Weight 205 lb 0.478 oz Physical Exam 2 Narrative: GENERAL: The patient is sleepy, keeps his eyes closed. Responds to question by yes or no. Not in any acute distress. Obese HEENT: No significant pallor, icterus or lymphadenopathy.Oral cavity: There are no mucous membrane lesions. NECK: Trachea appears to be central. No masses noted. No JVD or thyromegaly appreciated. RESPIRATORY: Chest is symmetrical. No intercostals muscle retraction or any accessory muscle activation. There is no chest wall tenderness. Breath sounds are heard bilaterally. No rales or rhonchi heard. No evidence of any consolidation. BREASTS: Deferred. HEART: The heart sounds are normal. No S3 or S4. Short systolic murmur at the lower sternal border. No pericardial rub ABDOMEN: No vessel pulsations or distention. No tenderness. No organomegaly appreciated. Bowel sounds are normally heard. : Deferred. RECTAL: Deferred. LYMPHATIC: No lymphadenopathy noted in the neck. EXTREMITIES: 1+ edema both lower extremities. MUSCULOSKELETAL: No acute joint deformities or swelling SKIN: There are no significant rashes or ecchymosis NEUROPSYCHIATRIC: The patient is alert and oriented x3. Appears to be in a good mood. No tremors or rigidity noted. Data 10/17/24 05:51 10/17/24 05:51 Other Labs: Laboratory Last Values WBC 5.11 10^3/uL (3.29-11.43) 10/17/24 05:51 RBC 3.83 10^6/uL (3.85-5.65) L 10/17/24 05:51 Hgb 12.60 g/dL (11.27-16.99) 10/17/24 05:51 Hct 40.5 % (37-53) 10/17/24 05:51 MCV 105.7 fl (82-101) H 10/17/24 05:51 MCH 32.9 pg (27-33) 10/17/24 05:51 MCHC 31.1 g/dL (30-55) 10/17/24 05:51 RDW 15.9 % (12.1-15.1) H 10/17/24 05:51 Plt Count 158 10^3/cmm (157-399) 10/17/24 05:51 MPV 9.9 fL (7.4-10.4) 10/17/24 05:51 Neut % (Auto) 63.8 % 10/17/24 05:51 Lymph % (Auto) 17.4 % 10/17/24 05:51 [place] % (Auto) 9.6 % 10/17/24 05:51 Eos % (Auto) 7.6 % 10/17/24 05:51 Baso % (Auto) 1.4 % 10/17/24 05:51 Neut # (Auto) 3.26 10^3/uL (1.8-7.7) 10/17/24 05:51 Lymph # (Auto) 0.9 10^3/uL (0.8-4.8) 10/17/24 05:51 [place] # (Auto) 0.5 10^3/uL (0.2-0.9) 10/17/24 05:51 Eos # (Auto) 0.4 10^3/uL (0.0-0.8) 10/17/24 05:51 Baso # (Auto) 0.1 10^3/uL (0.0-0.1) 10/17/24 05:51 Nucleated RBC % (auto) 0 % 10/17/24 05:51 Nucleated RBCs # 0.0 /100WBC 10/17/24 05:51 Sodium 137 mmol/L (136-145) 10/17/24 05:51 Potassium 5.2 mmol/L (3.5-5.1) H 10/17/24 05:51 Chloride 98 mmol/L (98-107) 10/17/24 05:51 Carbon Dioxide 26 mmol/L (22-29) 10/17/24 05:51 Anion Gap 18.2 (5-19) 10/17/24 05:51 BUN 31 mg/dL (6-20) H 10/17/24 05:51 Creatinine 6.6 mg/dL (0.7-1.2) H* 10/17/24 05:51 GFR Calculation 8.9 mL/min (90-130) L 10/17/24 05:51 Glucose 83 mg/dL (65-115) 10/17/24 05:51 POC Glucose 113 mg/dL (70-110) H 10/16/24 11:13 Calculated Osmolality 290 mOsm/kg (285-295) 10/17/24 05:51 Calcium 8.5 mg/dL (8.5-10.5) 10/17/24 05:51 Magnesium 2.0 mg/dL (1.7-2.3) 10/16/24 05:47 Total Bilirubin 0.3 mg/dL (0.15-1.2) 10/17/24 05:51 AST 20 U/L (0-40) 10/17/24 05:51 ALT 21 U/L (0-41) 10/17/24 05:51 Alkaline Phosphatase 246 U/L (40-130) H 10/17/24 05:51 Troponin T Baseline 84 ng/L (0-15) H 10/15/24 06:34 Troponin T 120 Minute 80.33 ng/L (0-15) H 10/15/24 09:44 Delta Troponin T -3.67 ABS# (0-10) L 10/15/24 09:44 Troponin T Hi Sens 6Hr 79.81 ng/L (0-15) H 10/15/24 12:57 Troponin T Hi Sens 6Hr Delta -4.19 ng/L (0-12) L 10/15/24 12:57 Total Protein 6.4 g/dL (6.6-8.7) L 10/17/24 05:51 Albumin 3.4 g/dL (3.5-5.2) L 10/17/24 05:51 Globulin 3.0 g/dL (1.3-4.6) 10/17/24 05:51 Urine Color Yellow (Yellow) 10/15/24 08:00 Urine Appearance Cloudy (CLEAR) A 10/15/24 08:00 Urine pH >=9.0 (5-7) A 10/15/24 08:00 Ur Specific [place] 1.008 (1.005-1.030) 10/15/24 08:00 Urine Protein 2+ (Negative) A 10/15/24 08:00 Urine Glucose (UA) Trace (Normal) H 10/15/24 08:00 Urine Ketones Negative (Negative) 10/15/24 08:00 Urine Blood Trace (Negative) A 10/15/24 08:00 Urine Nitrate Negative (Negative) 10/15/24 08:00 Urine Bilirubin Negative (Negative) 10/15/24 08:00 Urine Urobilinogen 0.2 mg/dL (Negative) 10/15/24 08:00 Ur Leukocyte Esterase 2+ (Negative) A 10/15/24 08:00 Urine RBC 0-2 /hpf (0-2) 10/15/24 08:00 Urine WBC 11-20 /hpf (0-5) H 10/15/24 08:00 Ur Squamous Epith Cells 0-5 /hpf (0-5) 10/15/24 08:00 Amorphous Sediment Not Reportable 10/15/24 08:00 Urine Bacteria None seen /hpf (NONE) 10/15/24 08:00 Hyaline Casts 0.40 /lpf 10/15/24 08:00 Hep Bs Antibody < 3.5 (11.5-1000) L 10/15/24 16:57 A&P Assessment and plan 1. Nonsustained monomorphic ventricular tachycardia: Patient has no recurrence of ventricular arrhythmia. Discussed about doing a stress test. Patient is not wanting to undergo any stress test at this point. 2. Chronic atrial fibrillation: Patient is currently with a controlled ventricular response rate. Apparently he is not on any oral anticoagulation. Need to look into it. If there is no contraindication, he needs to be on the oral anticoagulant. Apparently this patient had excessive bleeding from the dialysis catheter site with oral anticoagulant. For that reason, he was taken off the oral anticoagulant in the past 3. Benign hypertension: The blood pressure seems to be getting under control. 4. Chronic diastolic congestive heart failure: The heart failure is fairly compensated. May continue on the current management. 5. End stage renal disease on dialysis: Hemodialysis frequency and the filtration volume as per nephrology Plan: The patient's overall cardiovascular status seems to be stable. He had only mild coronary disease by angiogram in 2020. He does not want to undergo any stress testing at this time Since the patient's overall status seems to be otherwise stable, may continue on the current management. PDMP PDMP Reviewed: Not Reviewed Attestations 2 Medical Necessity Statement*: Possible discharge home today Coding Level of Care Code 01493 Diagnoses Nonsustained monomorphic ventricular tachycardia I47.29 Chronic atrial fibrillation I48.20 Benign hypertension I10 Chronic diastolic congestive heart failure I50.32 End stage renal disease on dialysis N18.6; Z99.2
== END 2024-10-17 17:29 | disposition home or self-care (01) | DRG 640 ==
LOC: ER 08:00 → ICU 08:01
PROVIDERS: Hospitalist; Admitting Provider Internal Medicine; Emergency Provider Family Medicine; PCP Family Medicine; Visit Provider Internal Medicine
DX: E87.79 Other fluid overload (principal); I50.33 Acute on chronic diastolic (congestive) heart failure; N18.6 End stage renal disease; I13.2 Hypertensive heart and chronic kidney disease with heart failure and with stage 5 chronic kidney disease, or end stage renal disease; N39.0 Urinary tract infection, site not specified; I47.29 Other ventricular tachycardia; I48.20 Chronic atrial fibrillation, unspecified; E87.5 Hyperkalemia; J44.9 Chronic obstructive pulmonary disease, unspecified; G47.33 Obstructive sleep apnea (adult) (pediatric); Z79.82 Long term (current) use of aspirin; Z99.81 Dependence on supplemental oxygen; Z99.2 Dependence on renal dialysis; T46.5X6A Underdosing of other antihypertensive drugs, initial encounter; Z91.158 Patient's noncompliance with renal dialysis for other reason; Z53.29 Procedure and treatment not carried out because of patient's decision for other reasons; Z88.0 Allergy status to penicillin; F17.210 Nicotine dependence, cigarettes, uncomplicated; Z79.51 Long term (current) use of inhaled steroids; I16.0 Hypertensive urgency; Z66 Do not resuscitate; E66.9 Obesity, unspecified; K21.9 Gastro-esophageal reflux disease without esophagitis; F32.A Depression, unspecified; G47.00 Insomnia, unspecified; Z68.30 Body mass index [BMI] 30.0-30.9, adult
CPT/HCPCS: 36415; 36416; 71045; 80048; 80053; 81001; 82962; 83735; 84484; 85025; 86706; 87040; 90935; 93005; 93308; 94640; 94660; 94664; 96365; 96372; 96374; 96375; 96376; 99291; J0696; J1644; J1815; J2405; J2470; J3490; J7060; J7613; J7626; J7799; J9999; Q3014

== ENCOUNTER 2024-12-14 01:31 | Emergency (ER) | payer MEDICARE, SELFPAY ==
[2024-12-14 01:32] VITALS: BP 159/106; PULSE 112; RESP 22; TEMP 36.8; O2SAT 96
--- NOTE | 2024-12-14 01:33 | XRR_ITS ---
PROCEDURE INFORMATION: Exam: XR Chest Exam date and time: 12/14/2024 1:39 AM Age: 49 years old Clinical indication: Shortness of breath; Prior surgery; Surgery date: 6+ months; Surgery type: Dialysis port placement TECHNIQUE: Imaging protocol: Radiologic exam of the chest. Views: 1 view. COMPARISON: CR (CHEST, ) 10/15/2024 6:30 AM FINDINGS: Tubes, catheters and devices: A right internal jugular approach dialysis catheter is present. The tip terminates at the superior cavoatrial junction. Lungs: Right lower lobe airspace opacities may represent airspace disease and/or atelectasis. Pleural spaces: A small right pleural effusion with associated atelectasis is present. Heart/Mediastinum: The heart is enlarged. Bones/joints: Chronic left proximal humeral fracture deformity. XR/XR chest 1V portable [id number] IMPRESSION: 1. Right lower lobe airspace disease versus atelectasis. 2. Small right pleural effusion. 3. Cardiomegaly.
--- NOTE | 2024-12-14 01:39 | W.ED.SOB ---
HPI - SOB/Dyspnea General: Chief Complaint: Shortness of Breath/Dyspnea Stated Complaint: Shortness of breath Time Seen by Provider: 12/14/24 01:33 History of Present Illness: HPI Narrative: 49-year-old man with a history of end-stage renal disease on dialysis, diastolic congestive heart failure, atrial fibrillation, COPD, chronic hypoxemic respiratory failure on 5 L nasal cannula at all times, anxiety, depression, obstructive sleep apnea, hypertension, and anemia who presents to the emergency room by ambulance with shortness of breath. He says he has been going to dialysis. Next dialysis should be this morning. He had sneezing and has some wheeze. He does have a pack of cigarettes in his pocket so obviously he is still smoking. No chest pain. No altered mental status. No focal motor deficits. No nausea or vomiting. No abdominal pain. No known fevers. No increased oxygen requirements Related Data Home Medications ?Medication ?Instructions ?Recorded ?Confirmed trazodone 150 mg tablet 150 mg PO BEDTIME 01/17/24 10/15/24 Previous Rx's ?Medication ?Instructions ?Recorded albuterol sulfate 90 mcg/actuation 1 inh inhalation Q6H PRN shortness 09/23/24 aerosol inhaler (Ventolin HFA) of breath or wheezing #8.5 grams fluticasone 250 mcg-salmeterol 50 1 inh inhalation BID #60 ea 09/23/24 mcg/dose blistr powdr for inhalation (Advair Diskus) furosemide 80 mg tablet 80 mg PO BID #60 tabs 10/17/24 metoprolol tartrate 50 mg tablet 50 mg PO BID@0900,2100 #60 tabs 10/17/24 doxycycline monohydrate 100 mg 100 mg PO BID 10 days #20 caps 12/14/24 capsule prednisone 20 mg tablet 60 mg (3 x 20 mg) PO DAILY 5 days 12/14/24 #15 tabs Allergies Allergy/AdvReac Type Severity Reaction Status Date / Time lisinopril Allergy swelling Verified 03/15/24 22:51 Penicillins Allergy ALGY-Hives Verified 03/15/24 22:51 tramadol Allergy ALGY-Hives Verified 03/15/24 22:51 PFSH ED PFSH: Medical History (Updated 12/14/24 @ 02:40 by Cecy Anderson MD) Diastolic CHF Atrial fibrillation with RVR End stage kidney disease Uncontrolled hypertension Hypoglycemia Atrial fibrillation with RVR COPD exacerbation Pulmonary edema Non-compliance with renal dialysis End stage renal disease Anxiety and depression Obstructive sleep apnea Allergic dermatitis ESRD (end stage renal disease) Pleural effusion Dialysis patient Hypertensive emergency Atrial fibrillation/flutter Chest pain Elevated troponin Resistant hypertension Paroxysmal atrial fibrillation with RVR End stage chronic kidney disease Anemia Sebaceous cyst GERD (gastroesophageal reflux disease) Insomnia COPD (chronic obstructive pulmonary disease) Reports he is on 4 L of oxygen at home Hypoxia Anxiety and depression Lower respiratory tract infection Encounter to establish care Vitamin D deficiency Hypertension CRF (chronic renal failure) Surgical History S/P hemodialysis catheter insertion H/O hand surgery right hand with hardware H/O circumcision Presence of peritoneal dialysis catheter S/P dialysis catheter insertion (12/12/19) Removed on 04/04/2020 Family History Other Adopted Denies family history of Anesthesia complication Bleeding disorder Social History Smoking and tobacco/nicotine status: current every day tobacco/nicotine user (1ppd X26 years) cigarettes [ Other cigarette details: On and off quitting and restarting] Alcohol intake: never Substance/Drug Use: never Household members: significant other Marital status: Single Current occupational status: disabled Physical Exam Narrative: EXAM NARRATIVE: General: Alert, no acute distress. Skin: Warm, dry. Head: Normocephalic, atraumatic. Neck: Supple, trachea midline. Eye: Extraocular movements are intact. Ears, nose, mouth and throat: Oral mucosa moist. Cardiovascular: Regular rate and rhythm, Normal peripheral perfusion. Respiratory: coarse, scattered wheeze, mild increased wob. tachypnea, breath sounds are equal, Symmetrical chest wall expansion. Gastrointestinal: Soft, Nontender, Non distended Musculoskeletal: Normal ROM, no deformity. Neurological: Alert and oriented, No focal neurological deficit observed. Psychiatric: Cooperative, appropriate mood & affect. Course Vital Signs: Vital signs: Vital Signs Temperature 98.2 F 12/14/24 01:32 Pulse Rate 112 H 12/14/24 01:32 Respiratory Rate 22 H 12/14/24 01:32 Blood Pressure 159/106 12/14/24 01:32 Pulse Oximetry 96 12/14/24 01:32 Oxygen Delivery Me thod Nasal Cannula 12/14/24 03:14 Oxygen Flow Rate 3 12/14/24 03:14 MDM - SOB/Dyspnea Medical Decision Making Differential diagnosis for patient with shortness of breath includes but is not limited to and based on the above HPI, review of systems and physical exam: Pneumonia. Bronchitis. Asthma or COPD with acute exacerbation. Acute coronary syndrome / ID. Pulmonary embolism. Anxiety. Congestive heart failure. Viral infections including influenza and Covid-19. Atrial fibrillation. Anxiety. Pleural effusion. Pneumothorax. Orders placed to evaluate differential diagnosis based on the above differential, HPI and physical exam Chest x-ray: Possible mild airspace disease in the right lower lobe. He has had some cough but no fevers. Placing him on antibiotics and steroids at home. This was reviewed and interpreted by myself the emergency room physician. I also reviewed the radiology report. Lab Review: Laboratory results were reviewed and interpreted by myself the emergency room physician. No leukocytosis. No anemia. BUN and creatinine are elevated at 62 and 11. Potassium is mildly elevated at 5.4. I reviewed the patient's medical record. 49-year-old man with a history of end-stage renal disease on dialysis, diastolic congestive heart failure, atrial fibrillation, COPD, chronic hypoxemic respiratory failure on 5 L nasal cannula at all times, anxiety, depression, obstructive sleep apnea, hypertension, and anemia Reexamination: Patient remained stable. No increased work of breathing. No altered mental status. No focal motor deficits. Stable on 3 L nasal cannula. He is on oxygen at home. Patient scheduled for dialysis today. He was post to leave from his home at 530 for dialysis in [facility]. He says he will not be able to make it now. We have been working to try to get him a Medicaid ride up there and we are going to try to contact the dialysis clinic at 6 AM and he said he did not want us to help that he was going to figure it out himself. I told him he must get dialysis today. Assessment and plan: COPD with acute exacerbation Chronic hypoxemic respiratory failure End-stage renal disease on dialysis ?Steroid and antibiotic first dose here in the emergency room - Discharged home - Discussed plan with patient. Answered any questions. - Evaluation and treatment of this problem were appropriate in the emergency setting. Lab Data 12/14/24 01:48 12/14/24 01:48 Labs/Radiology: Radiology Impressions Chest X-Ray 12/14/24 01:33 IMPRESSION: 1. Right lower lobe airspace disease versus atelectasis. 2. Small right pleural effusion. 3. Cardiomegaly. Laboratory Results WBC 7.56 10^3/uL (3.29-11.43) 12/14/24 01:48 RBC 4.58 10^6/uL (3.85-5.65) 12/14/24 01:48 Hgb 14.70 g/dL (11.27-16.99) 12/14/24 01:48 Hct 47.5 % (37-53) 12/14/24 01:48 MCV 103.7 fl (82-101) H 12/14/24 01:48 MCH 32.1 pg (27-33) 12/14/24 01:48 MCHC 30.9 g/dL (30-55) 12/14/24 01:48 RDW 15.9 % (12.1-15.1) H 12/14/24 01:48 Plt Count 232 10^3/cmm (157-399) 12/14/24 01:48 MPV 9.7 fL (7.4-10.4) 12/14/24 01:48 Neut % (Auto) 68.0 % 12/14/24 01:48 Lymph % (Auto) 16.4 % 12/14/24 01:48 Franklin % (Auto) 9.3 % 12/14/24 01:48 Eos % (Auto) 5.2 % 12/14/24 01:48 Baso % (Auto) 0.8 % 12/14/24 01:48 Neut # (Auto) 5.15 10^3/uL (1.8-7.7) 12/14/24 01:48 Lymph # (Auto) 1.2 10^3/uL (0.8-4.8) 12/14/24 01:48 Franklin # (Auto) 0.7 10^3/uL (0.2-0.9) 12/14/24 01:48 Eos # (Auto) 0.4 10^3/uL (0.0-0.8) 12/14/24 01:48 Baso # (Auto) 0.1 10^3/uL (0.0-0.1) 12/14/24 01:48 Nucleated RBC % (auto) 0 % 12/14/24 01:48 Nucleated RBCs # 0.0 /100WBC 12/14/24 01:48 Sodium 141 mmol/L (136-145) 12/14/24 01:48 Potassium 5.4 mmol/L (3.5-5.1) H 12/14/24 01:48 Chloride 96 mmol/L (98-107) L 12/14/24 01:48 Carbon Dioxide 26 mmol/L (22-29) 12/14/24 01:48 Anion Gap 24.4 (5-19) H 12/14/24 01:48 BUN 62 mg/dL (6-20) H 12/14/24 01:48 Creatinine 10.9 mg/dL (0.7-1.2) H* 12/14/24 01:48 GFR Calculation 5.0 mL/min (90-130) L 12/14/24 01:48 Glucose 85 mg/dL (65-115) 12/14/24 01:48 Calculated Osmolality 309 mOsm/kg (285-295) H 12/14/24 01:48 Lactic Acid 1.2 mmol/L (0.5-2.2) 12/14/24 01:48 Calcium 9.1 mg/dL (8.5-10.5) 12/14/24 01:48 Total Bilirubin 0.5 mg/dL (0.15-1.2) 12/14/24 01:48 AST 14 U/L (0-40) 12/14/24 01:48 ALT 8 U/L (0-41) 12/14/24 01:48 Alkaline Phosphatase 319 U/L (40-130) H 12/14/24 01:48 Troponin T Baseline 75 ng/L (0-15) H 12/14/24 01:48 Troponin T 120 Minute 72.21 ng/L (0-15) H 12/14/24 03:00 Delta Troponin T -2.79 ABS# (0-10) L 12/14/24 03:00 Total Protein 7.1 g/dL (6.6-8.7) 12/14/24 01:48 Albumin 4.1 g/dL (3.5-5.2) 12/14/24 01:48 Globulin 3.0 g/dL (1.3-4.6) 12/14/24 01:48 All radiology interpretation(s) finalized by discharge Discharge Plan Discharge Patient Disposition: Home Clinical Impression: Acute exacerbation of chronic obstructive airways disease, Tobacco dependence, End stage renal disease on dialysis Condition: Stable Prescriptions: New prednisone 20 mg tablet 60 mg PO DAILY 5 Days Qty: 15 0RF doxycycline monohydrate 100 mg capsule 100 mg PO BID 10 Days Qty: 20 0RF No Action trazodone 150 mg tablet 150 mg PO BEDTIME albuterol sulfate [Ventolin HFA] 90 mcg/actuation HFA aerosol inhaler 1 inh inhalation Q6H PRN (Reason: shortness of breath or wheezing) Qty: 8.5 0RF fluticasone propion-salmeterol [Advair Diskus] 250-50 mcg/dose blister with device 1 inh inhalation BID Qty: 60 0RF metoprolol tartrate 50 mg Tablet 50 mg PO BID@0900,2100 Qty: 60 0RF furosemide 80 mg tablet 80 mg PO BID Qty: 60 0RF Discharge Orders: Discharge ED (Routine); Ordered 12/14/24 Ordered By: Cecy Anderson Referrals: Ras Joy [Primary Care Provider, Family Practice] Discharge Diet: Usual diet Discharge Activity: Increase activity as tolerated Patient Instructions: Opioid Safety, Pain Management, Patient Portal & Ramonita Instructions Activity Restrictions/Additional Instructions: Absolutely do not miss dialysis today. Your numbers are on the upper end of okay right now Thank you for choosing [facility] for your healthcare needs today. You have been screened and evaluated and felt safe for discharge. Health conditions do change or evolve sometimes and as such it is important that you follow up with your Primary Doctor to be re checked, 3-5 days is a general good time frame for follow up. You are always welcome to return to the ED for re assessment if your symptoms are worsening or you have new concerns Print Language: German Coding Level of Care Code ED [employer] Technician for Shilpa Phillips
--- OUTSIDE RECORDS SUMMARY | 2024-12-14 01:49 | XMS_ITS | Clinical Summary ---
Author Organization [facility] Address [address] [address] Phone Care Team Providers Care Admin Asst Name Role Phone Ras Joy MD Primary Care Provider [phone] Allergies Active Allergy Reactions Criticality Noted Date [...] Do not crush or chew. 30 tablet 1 Active Additional Information Patient not taking.Informant: Spouse/Significant Other, Self, Reported on 09/16/2024 traZODone (Desyrel) 150 mg tablet Take 150 mg by mouth every night. Active furosemide (Lasix) 80 mg tablet Take 80 mg by mouth 2 (two) times a day. 4 Active carvediloL (Coreg) 6.25 mg tablet Take 1 tablet (6.25 mg total) by mouth 2 (two) times a day with meals. 60 tablet 11 4 Active dilTIAZem CD (Cardizem CD) 240 mg 24 hr capsule Take 1 capsule (240 mg total) by mouth 1 (one) time each day. 30 capsule 4 Active Additional Information Patient not taking.Informant: Spouse/Significant Other, Self, Reported on 09/16/2024 apixaban (Eliquis) 5 mg tablet Take 0.5 tablets (2.5 mg total) by mouth 2 (two) times a day. 30 tablet 4 Active Additional Information Patient not taking.Informant: Spouse/Significant Other, Self, Reported on 09/16/2024 levETIRAcetam (Keppra) 500 mg tablet Take 1 tablet (500 mg total) by mouth 2 (two) times a day. 60 tablet 11 4 Active Additional Information Patient not taking.Informant: Spouse/Significant Other, Self, Reported on 09/16/2024 ipratropium-alb uteroL (Duo-Neb) 0.5-2.5 mg/3 mL nebulizer solution Take 3 mL by nebulization every 6 (six) hours. 4320 mL 4 Active Additional Information Patient not taking.Informant: Spouse/Significant Other, Self, Reported on 09/16/2024 Symbicort 160-4.5 mcg/actuation inhalerIndicati ons:Pulmonary emphysema, unspecified emphysema type (CMS/HCC) Inhale 2 puffs 2 (two) times a day. 10.2 g 3 5 Active Additional Information Patient not taking.Informant: Self, Reported on 09/16/2024 Hospital, Clinic, or Other Facility Administered Medication [...] 6:00 AM CDT - 09/16/2024 11:00 AM T Emergency [facility] Emergency Department [address] [id number] Kb Briggs MD Dyspnea, unspecified type (Primary Dx); COPD exacerbation (CMS/HCC) Discharge Disposition: Discharged to Home or Self [...] or pharmacy? Patient declines to respond 10/06/2023 [facility] [employer] Answer Date Recorded In the past 12 months has e [employer], gas, oil, or water fruux threatened to shut off services in your [...] No 01/08/2024 Social Connection and Isolation Panel Answer Date Recorded In a typical week, how many times do you talk on the phone with family, friends, or neighbors? Patient declined 10/06/2023 How often do you get togethe r with friends or relatives? Patient declined 10/06/2023 How often do you attend anabaptist or moravian serv ices? Patient declined 10/06/2023 Do you belong to any clubs o r organizations such as anabaptist groups, unions, fraternal or athletic groups, or [...] Recorded Patient Health Questionnaire-2 Score 2 05/27/2024 [facility] - Occupational Stress Questionnaire Answer Date Recorded [...] place to sleep or slept in a care home (including now)? No 08/30/2023 Housing Stability Vital [...] any time in the past 12 m [facility], were you homeless or living in a care home (including now)? 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 Plan of Treatment Health Maintenance Due Date Last Done Comments [...] series) 1992 Medicare Initial AWV G0438 03/30/2020 [facility] Lung Cancer Screening Shared Decision Making 2023 Zoster Vaccines (1 of 2) 2023 Echocardiogram 07/14/2024 07/15/2023, 10/28, 09/02/2022, Additional history exists COVID-19 Vaccine ( - season) 2024 Influenza Vaccine (#1) 2024 , 12/28/2021, 12/28/2020 [...] this topic Medical Devices Implanted Type Area Quality Process Auditor Device Identifier Shelf Expiration Date Model / [...] PM CDT) 09/16/2024 1:22 PM CDT Narrative [facility] - 09/16/2024 1:22 PM CDT Interpretive Statements Atrial fibrillation Electronically Signed On 09-16-2024 13:22:52 CDT by Gurpreet Lafleur MD Procedure Note Gurpreet Lafleur MD - 09/16/2024 Interpretive Statements Atrial fibrillation Electronically Signed On 09-16-2024 13:22:52 CDT by Gurpreet Lafleur MD Kb Briggs MD ECG ORDERABLES Edited Result - Final [facility] [address] [place] [address] * Blood culture (09/16/2024 8:56 AM CDT) Only the most recent of2 resultswithin the time period is included. [facility] Blood Culture No growth at 5 days 09/21/2024 10:00 AM CDT [facility] Blood Venous blood specimen / Unknown Venipuncture / Unknown 09/16/2024 8:56 AM CDT 09/16/2024 9:02 AM CDT Kb Briggs MD LAB MICROBIOLOGY - GENERAL OR DERABLES Final Result Performing Organization Address [facility] Co de Phone Number [facility] [address] [place] [phone] * SARS-COV-2 VIK (09/16/2024 8:34 AM CDT) [facility] SARS COV-2 Negative Negative, Invalid 09/16/2024 9:01 AM CDT [facility] Swab Nasopharyngeal structure / Unknown Non-blood Collection / Unknown 09/16/2024 8:34 AM CDT 09/16/2024 8:38 AM CDT Narrative [facility] - 09/16/2024 9:01 AM [...] OR DERABLES Final Result Performing Organization Address [facility] de Phone Number [facility] [address] [place] [phone] * Rapid influenza A/B (09/16/2024 8:34 AM CDT) [facility] Influenza A, VIK Negative Negative 09/16/2024 9:02 AM CDT [facility] Influenza B, VIK Negative Negative 09/16/2024 9:02 AM CDT [facility] Swab Nasopharyngeal structure / Unknown Non-blood Collection / Unknown 09/16/2024 8:34 AM CDT 09/16/2024 8:38 AM CDT us Kb Briggs MD LAB MICROBIOLOGY - GENERAL OR DERABLES Final Result [facility] [address] [address] * CT head wo IV contrast (09/16/2024 [...] 09/16/2024 8:32 AM by: Atul Arevalo MD us Kb Briggs MD IMG CT PROCEDURES Final [...] the upper abdomen demonstrates atrophy of the [place] kidneys. There are diffuse arterial calcifications. There [...] obtained on the 3-D workstation and sent tot[employer]ounder PACS archival system. HISTORY: Evaluate for PE. [...] DELIVERY SYSTEM NC 09/16/2024 7:43 AM CDT [facility] LPM 6 09/16/2024 7:43 AM CDT [facility] MODIFIED ROCK'S TEST Not Applicable 09/16/2024 7:43 AM CDT [facility] Blood Venous blood specimen / Unknown 09/16/2024 7:40 AM CDT 09/16/2024 7:43 AM CDT Kb Briggs MD LAB POINT OF CARE TE ST DOCKED DEVICE UNSOLICITED RESULTS Final Result [facility] [address] [address] * XR chest 1 view (09/16/2024 7:25 [...] CBC auto differential (09/16/2024 7:00 AM CDT) [facility] White Blood Count 10.8 4.0 - 11.4 K/mm3 09/16/2024 7:46 AM CDT [facility] Red Blood Count 3.53(L) 4.63 - 6.08 M/mm3 09/16/2024 7:46 AM CDT [facility] Hemoglobin 11.6(L) 13.7 - 17.5 g/dL 09/16/2024 7:46 AM CDT [facility] Hematocrit 34.2(L) 40.1 - 51.0 % 09/16/2024 7:46 AM CDT [facility] Mean Cell Volume 97.0(H) 80.7 - 94.9 fL 09/16/2024 7:46 AM CDT [facility] MEAN CORPUSCULAR HEMOGLOBIN 32.8 26.7 - 32.8 pg 09/16/2024 7:46 AM CDT [facility] Mean Corpuscular Hemoglobin Concentration 33.9 31.6 - 36.0 g/dL 09/16/2024 7:46 AM CDT [facility] RED CELL DISTRIBUTION WIDTH-SD 52.9(H) 35.6 - 49.5 fl 09/16/2024 7:46 AM CDT [facility] Platelet Count 222 150 - 450 K/mm3 09/16/2024 7:46 AM CDT [facility] Mean Platelet Volume 7.5 7.0 - 10.2 fL 09/16/2024 7:46 AM CDT [facility] ANC (AUTOMATED) 9.0 2.0 - 9.8 K/ul 09/16/2024 7:46 AM CDT [facility] Lymphocytes % 2.9(L) 10.1 - 46.5 % 09/16/2024 7:46 AM CDT [facility] Monocytes % 10.9 3.2 - 12.9 % 09/16/2024 7:46 AM CDT [facility] Neutrophils % 83.9(H) 40.6 - 81.1 % 09/16/2024 7:46 AM CDT [facility] Eosinophils % 1.2 0.0 - 4.2 % 09/16/2024 7:46 AM CDT [facility] Basophils % 1.1 0.0 - 1.1 % 09/16/2024 7:46 AM CDT [facility] Lymphocytes Absolute 0.3(L) 0.6 - 3.6 K/uL 09/16/2024 7:46 AM CDT [facility] Monocytes Absolute 1.2(H) 0.3 - 1.1 K/uL 09/16/2024 7:46 AM CDT [facility] Neutrophils Absolute 9.0 2.0 - 9.8 K/uL 09/16/2024 7:46 AM CDT [facility] Eosinophils Absolute 0.10 0.00 - 0.60 K/uL 09/16/2024 7:46 AM CDT [facility] Basophils Absolute 0.1 0.0 - 0.1 1000/uL 09/16/2024 7:46 AM CDT [facility] Nucleated RBC % 0.0 0.0 - 0.2 % 09/16/2024 7:46 AM CDT [facility] Nucleated RBC Absolute 0.00 0.00 - 0.03 K/ul 09/16/2024 7:46 AM CDT [facility] Monocyte Distribution Width 20.09(H) <=20 09/16/2024 7:46 AM CDT [facility] Comment:MDW values greater t jane 20.0 should be interpreted in association with other clinical information and diagnostic testing, as a proportion of patients without sepsis may have an elevated MDW value at baseline. Blood Venous blood specimen / Unknown Existing Catheter / Unknown 09/16/2024 7:00 AM CDT 09/16/2024 7:05 AM CDT Narrative [facility] - 09/16/2024 7:46 AM CDT This is an appended report. These results have been appended to a previously verified report. us Kb Briggs MD LAB BLOOD ORDERABLES Final Re sult [facility] [address] [address] * Pérez Top (09/16/2024 7:00 AM CDT) Extra Tube Hold for add-ons. 09/16/2024 12:02 PM CDT [facility] Comment:Auto resulted. Blood Venous blood specimen / Unknown Existing Catheter / Unknown 09/16/2024 7:00 AM CDT 09/16/2024 7:06 AM CDT Kb Briggs MD LAB BLOOD ORDERABLES Final Re sult Performing Organization Address [facility] Co de Phone Number [facility] [address] [phone] * Ammonia (09/16/2024 7:00 AM CDT) Ammonia 45 19 - 54 ug/dL LAB CHEMISTRY METHOD 09/16/2024 8:06 AM CDT [facility] Blood Venous blood specimen / Unknown Existing Catheter / Unknown 09/16/2024 7:00 AM CDT 09/16/2024 7:06 AM CDT Kb Briggs MD LAB BLOOD ORDERABLES Final Re sult Performing Organization Address [facility] de Phone Number [facility] [address] [address] * Ethanol (09/16/2024 7:00 AM CDT) Ethanol, Plasma <10 <=299 mg/dL LAB CHEMISTRY METHOD 09/16/2024 7:52 AM CDT [facility] Blood Venous blood specimen / Unknown Existing Catheter / Unknown 09/16/2024 7:00 AM CDT 09/16/2024 7:06 AM CDT Narrative [facility] - 09/16/2024 7:52 AM CDT To convert mg/dL to % divide result by 1000. Plasma ethanol is intended for medical use only and should not be used for legal or forensic purposes. The pharmacological response to plasma ethyl alcohol level is subject to considerable individual variation. us Kb Briggs MD LAB BLOOD ORDERABLES Final Re sult Performing Organization Address [facility] Co de Phone Number [facility] [address] [phone] * (ABNORMAL) Comprehensive metabolic panel (09/16/2024 7:00 AM CDT) [facility] Glucose 90 70 - 100 mg/dL LAB CHEMISTRY METHOD 09/16/2024 7:33 AM CDT [facility] BUN 68(H) 9 - 20 mg/dL LAB CHEMISTRY METHOD 09/16/2024 7:33 AM CDT [facility] Creatinine 9.82(H) 0.66 - 1.25 mg/dl LAB CHEMISTRY METHOD 09/16/2024 7:33 AM CDT [facility] BUN/Creatinine Ratio 7(L) 12 - 17 LAB CHEMISTRY METHOD 09/16/2024 7:33 AM CDT [facility] Sodium 132(L) 135 - 145 mmol/L LAB CHEMISTRY METHOD 09/16/2024 7:33 AM CDT [facility] Potassium 5.4(H) 3.6 - 5.0 mmol/L LAB CHEMISTRY METHOD 09/16/2024 7:33 [facility] Chloride 98(L) 101 - 111 mmol/L LAB CHEMISTRY METHOD 09/16/2024 7:33 AM CDT [facility] Total Carbon Dioxide 27 22 - 30 mmol/L LAB CHEMISTRY METHOD 09/16/2024 7:33 AM CDT [facility] Anion Gap 12 9 - 17 mmol/L LAB CHEMISTRY METHOD 09/16/2024 7:33 AM CDT [facility] Calcium 9.1 8.2 - 10.2 mg/dL LAB CHEMISTRY METHOD 09/16/2024 7:33 AM [facility] Total Protein, Serum 7.4 5.6 - 8.5 g/dL LAB CHEMISTRY METHOD 09/16/2024 7:33 AM CDT [facility] Albumin 3.1(L) 3.5 - 5.2 g/dL LAB CHEMISTRY METHOD 09/16/2024 7:33 [facility] GLOBULIN 4.3(H) 2.1 - 3.8 g/dL LAB CHEMISTRY METHOD 09/16/2024 7:33 AM CDT [facility] A/G Ratio 0.7(L) 1.4 - 1.7 LAB CHEMISTRY METHOD 09/16/2024 7:33 [facility] Bilirubin, Total 0.8 0.1 - 1.3 mg/dL LAB CHEMISTRY METHOD 09/16/2024 7:33 AM CDT [facility] Alkaline Phosphatase 248(H) 45 - 117 U/L LAB CHEMISTRY METHOD 09/16/2024 7:33 AM CDT [facility] ALT (SGPT) 13 11 - 58 U/L LAB CHEMISTRY METHOD 09/16/2024 7:33 AM CDT [facility] AST (SGOT) 9 9 - 55 U/L LAB CHEMISTRY METHOD 09/16/2024 7:33 AM CDT [facility] eGFR 6(L) >=60 mL/min/1. 73 m2 LAB CHEMISTRY METHOD 09/16/2024 7:33 AM CDT [facility] Comment:High Risk of Kidney Failure Blood Venous blood specimen / Unknown Existing Catheter / Unknown 09/16/2024 7:00 AM CDT 09/16/2024 7:06 AM CDT us Kb Briggs MD LAB BLOOD ORDERABLES Final Re sult Performing Organization Address [facility]/ZIP Co de Phone Number [facility] [address] [phone] * High Sensitivity Troponin (09/16/2024 6:59 AM CDT) Pathologist [facility] High Sensitivity Troponin I 35 3 - 79 ng/L ng/L LAB CHEMISTRY METHOD 09/16/2024 7:33 AM CDT [facility] Blood Venous blood specimen / Unknown Existing Catheter / Unknown 09/16/2024 6:59 AM CDT 09/16/2024 7:06 AM CDT us Kb Briggs MD LAB BLOOD ORDERABLES Final Re sult Performing Organization Address City/[facility]/ZIP Co de Phone Number [facility] [address] [address] * Red Top (09/16/2024 6:59 AM CDT) Extra Tube Hold for add-ons. 09/16/2024 12:02 PM CDT [facility] Comment:Auto resulted. Blood Venous blood specimen / Unknown Existing Catheter / Unknown 09/16/2024 6:59 AM CDT 09/16/2024 7:05 AM CDT Kb Briggs MD LAB BLOOD ORDERABLES Final Re sult [facility] [address] [address] * Light Blue Top (09/16/2024 6:59 AM CDT) Extra Tube Hold for add-ons. 09/16/2024 12:02 PM CDT [facility] Comment:Auto resulted. Blood Venous blood specimen / Unknown Existing Catheter / Unknown 09/16/2024 6:59 AM CDT 09/16/2024 7:06 AM CDT Kb Briggs MD LAB BLOOD ORDERABLES Final Re sult Performing Organization Address [facility] Co de Phone Number [facility] [address] [place] [address] * Lipid Panel (01/09/2024 5:51 AM CDT) [...] ORDERABLES F inal Result Performing Organization Address [facility] de Phone Number [facility] [address] [place] [address] * Hemoglobin A1c (01/07/2024 5:20 PM CDT) Hemoglobin A1c 4.7 % 01/08/2024 10:47 AM CDT [facility] Estimated Average Glucose 88 mg/dL 01/08/2024 10:47 AM CDT [facility] Blood Venous blood specimen / Unknown Existing Catheter / Unknown 01/07/2024 5:20 PM CDT 01/07/2024 5:28 PM CDT Narrative [facility] - 01/08/2024 10:47 AM CDT HgbA1C ranges recommended by the [place] [employer] (ADA): >6.5% Diabetic 5.7-6.4% Pre-Diabetic <5.7% Non-Diabetic Oumar Angulo MD LAB BLOOD ORDERABLES Final Resul t Performing Organization Address [facility] de Phone Number [facility] [address] [place] [phone] * TRANSTHORACIC ECHO (TTE) COMPLETE W/ COLOR [...] date time: 07/15/2023 3:34 PM Accession no: [id number] Patient status: Routine Visit no: [id number] HR: 115 bpm Study location: Portable In/Out patient: Inpatient Technical quality: Adequate Blood pressure: 120 / 77 mmHg Room no: 254N Procedure Staff Referring Physician: Declan Castrejon M.D. Topology Professor: Michelle Bundy [facility] RVT Interpreting physician: Declan Castrejon M.D. Physician [...] 07/15/2023 Demographics Patient name: BALAJI VAZQUEZPatient ID: [id number] Gender: MaleAge: 48 year(s) Date of : 1975BMI: 27.13 kg/m^2 Height: 177 cmBSA: 2.02 m^2 Weight: 85 kgEthnicity: None Race: Procedure Information Procedure type: Echo Proc. sub type: TTE procedure: Transthoracic Echo (TTE)Complete. Start date time: 07/15/2023 3:34 PMAccession no: [id number] Patient status: RoutineVisit no: [id number] HR: 115 bpmStudy location: Portable In/Out patient: InpatientTechnical quality: Adequate Blood pressure: 120 / 77 mmHg Room no: 254N Procedure Staff Referring Physician: Declan Castrejon M.D. Topology Professor: Michelle Bundy [facility] RVT Interpreting physician: Decaln Castrejon M.D. Physician Conclusions Summary: 1. 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
--- OUTSIDE RECORDS SUMMARY | 2024-12-14 01:49 | XMS_ITS | Encounter Summary ---
Author Organization [facility] Address [address] [place] [address] Phone Care Team Providers Care Ibm Bpm Architect Name Role Phone Lida Woods MD Primary Care Provider Unav Ras Huber MD Primary Care Provider [phone] Reason for Visit * Reason Comments Med Change Request Encounter Details Date Type Department Care Team (Late st Contact Info) Description 09/27/2022 Refill MED TELE [address] [place] [phone] Michele Cage MD [address] [place] [phone] Social History Tobacco Use Types Packs/Day Years [...] documented in this encounter Plan of Treatment Not on file documented as of this encounter Visit Diagnoses Not on filedocumented in this encounter Additional Health Concerns Infection Onset Date Last Indicated Resolved Time COVID-19 Rule-Out 11/10/2022 11/10/2022 11/10/2022 11:49 AM CDT COVID-19 Rule-Out 02/23/2023 02/23/2023 02/23/2023 6:24 AM PHARMACEUTICAL SALESPERSON COVID-19 Rule-Out 02/23/2023 02/23/2023 02/23/2023 8:27 AM PHARMACEUTICAL SALESPERSON MRSA Comment:01/08/24: MRSA PCR + 03/22/2023 01/08/2024 COVID-19 Rule-Out 07/12/2023 07/12/2023 07/12/2023 6:24 AM CDT COVID-19 Rule-Out 07/30/2023 07/30/2023 07/30/2023 12:45 AM CDT COVID-19 Rule-Out 07/31/2023 07/31/2023 07/31/2023 3:26 PM CDT COVID-19 Rule-Out 01/07/2024 01/07/202401/07/2024 6:10 PM CDT COVID-19 Rule-Out 09/16/2024 09/16/2024 09/16/2024 9:01 AM CDT documented as of this encounter Care Teams Ibm Bpm Architect Relationship Specialty Start Date End Date Lida Woods MD [address] [place] [address] PCP - General Family Medicine 09/02/22 Ras Joy MD [address] [place] [address] PCP - General Family Medicine 05/04/23 documented as of this encounter
--- OUTSIDE RECORDS SUMMARY | 2024-12-14 01:49 | XMS_ITS | Encounter Summary ---
Author Organization [facility] Address 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 Topic: Reschedule/Cancel Appointment/Late Arrival >> Sep 16, 2024 9:03 AM Cleopatra Hall wrote: Caller is requesting to reschedule/cancel a hospital follow up. Caller Name: [place], significant other, on [facility] Callback Number: Telephone Information: Call Notes: patient was taken to hospital in [place] this morning. Is patient requesting to schedule? No documented in this encounter Plan of Treatment Not on file documented as of this encounter Visit Diagnoses Not on filedocumented in this encounter Care Teams Personnel Research Scientist Relationship Specialty Start Date End Date Ras Joy MD [address] [facility] [address] [place] [id number] PCP - General Family Practice 03/04/23 documented as of this encounter
--- OUTSIDE RECORDS SUMMARY | 2024-12-14 01:49 | XMS_ITS | Encounter Summary ---
Author Organization [facility] Address [address] [place] [address] Phone Care Team Providers Care Outbound Telemarketer Name Role Phone Lida Woods MD Primary Care Provider Ras David MD Primary Care Provider [phone] Encounter Details Date Type Department Care Team (Late st Contact Info) Description 04/21/2023 Orders Only [facility] [address] [phone] Felecia Ortega, SHAWNA [address] [id number] Social History Tobacco Use Types Packs/Day Years Used Date Smoking Tobacco: Every Day Cigarettes Smokeless Tobacco: Never Alcohol Use Standard Drinks/Week Comments Never 0 (1 standard drink = 0.6 oz pur e alcohol) [facility] Utilities Answer Date Recorded In the past 12 months has [facility], gas, oil, or water [employer] threatened to shut off services in your [...] declined 04/22/2023 Social Connection and Isolation Panel Answer Date Recorded In a typical week, how many times do you talk on the phone with family, friends, or neighbors? Patient declined 04/22/19 How often do you get togethe r with friends or relatives? Patient declined 04/22/2023 How often do you attend chur ch or voodoo services? Patient declined 04/22/2023 Do you belong to any clubs o r organizations such as mandaen groups, unions, fraternal or athletic groups, or [...] medical care, and heating? Patient declined 04/22/2023 [facility] of Occupat ional [facility] - Occupational Stress Questionnaire Answer Date [...] place to sleep or slept in a chcf (including now)? Patient declined 04/22/2023 Sex and Gender Information Value Date Recorded Sex Assigned at Not on file Legal Sex Male 5:49 AM CDT Gender Identity Male 01/22/2021 8:09 AM CDT Sexual Orientation Not on file documented as of this encounter Functional Status * AUDIT-C Score Answer Date of Assessment Author -1 [...] 6:26 PM TAMELAT Belia Mcgarry BSN,RN * Are you blind or do you have serious difficulty seeing, even when wearing glasses? Answer Date of Assessment Author No 11/10/2022 6:26 PM CDT Belia Mcgarry BSN,RN * Do you have serious difficulty walking or climbing stairs? Answer Date of Assessment Author No 11/10/2022 6:26 PM Belia Daly BSN, RN * Do you have serious difficulty dressing or bathing? Answer Date of Assessment Author No 11/10/2022 6:26 PM Belia Daly BSN, RN * Because of a physical, mental, or emotional condition, do you have serious difficulty doing errandsalone such as visiting the doctor? Answer Date of Assessment Author No 11/10/2022 6:26 PM Belia Daly BSN, RN documented as of this encounter Mental Status * Question Answer Entry Date Author Cognition Appropriate judgement 04/22/2023 11:15 AM Felecia Kamara RN * Because of a physical, mental, [...] documented as of this encounter Care Teams Outbound Telemarketer Relationship Specialty Start Date End Date Lida Woods MD [address] [place] [address] [place] [address] PCP - General Family Medicine 09/02/22 Ras Joy MD [address] [place] [address] PCP - General Family Medicine 05/04/23 documented as of this encounter
--- OUTSIDE RECORDS SUMMARY | 2024-12-14 01:49 | XMS_ITS | Encounter Summary ---
Author Organization [facility] Address [address] [place] [address] Phone Care Team Providers Care Supply Chain Design Manager Name Role Phone Lida Woods MD Primary Care Provider UnaRas Urairte MD Primary Care Provider [phone] Reason for Visit * Reason Onset Date Comments Med Refill 10/27/2022 Encounter Details Date Type Department Care Team (Late st Contact Info) Description 10/27/2022 Refill MED TELE [address] [place] [address] [phone] Michele Cage MD [address] [place] [address] [phone] Social History Tobacco Use Types Packs/Day Years [...] of Assessment Author No 09/10/2022 9:22 AM TAMELAT Belia Mcgarry BSN,RN * Are you [...] COVID-19 Rule-Out 02/23/2023 02/23/2023 02/23/2023 6:24 AM MANAGER UTILIZATION MANAGEMENT COVID-19 Rule-Out 02/23/2023 02/23/2023 02/23/2023 8:27 AM MANAGER UTILIZATION MANAGEMENT MRSA Comment:01/08/24: MRSA PCR + 03/22/2023 01/08/2024 COVID-19 Rule-Out 07/12/2023 07/12/2023 07/12/2023 6:24 AM CDT COVID-19 Rule-Out 07/30/2023 07/30/2023 07/30/2023 12:45 AM CDT COVID-19 Rule-Out 07/31/2023 07/31/2023 07/31/2023 3:26 PM CDT COVID-19 Rule-Out 01/07/2024 01/07/2024 01/07/2024 6:10 PM CDT COVID-19 Rule-Out 09/16/2024 09/16/2024 09/16/2024 9:01 AM CDT documented as of this encounter Care Teams Supply Chain Design Manager Relationship Specialty Start Date End Date Lida Woods MD [address] [place] [address] PCP - General Family Medicine 09/02/22 Ras Joy MD [address] [place] [address] PCP - General Family Medicine 05/04/23 documented as of this encounter
--- OUTSIDE RECORDS SUMMARY | 2024-12-14 01:49 | XMS_ITS | Clinical Summary ---
Author Organization [facility] Address [address] [place]: Epic Prelude ADT [place] [address] Care Team Providers Care Pot Builder Name Role Phone Ras Joy MD Primary Care Provider [phone] Allergies Active Allergy Reactions Criticality Noted Date Comments Lisinopril Swelling Low 08/20/2021 Penicillins Rash,Itching,Other (See Comments) Low 0 05/12/2018 Tramadol Itching Low 05/03/2019 Medications sucroferric oxyhydroxide (Velphoro) 500 mg Tablet, Chewable Take 1,500 mg by mouth 3 times daily. If he has a snack he will take 2-[address] Pillai Active vit B,W-CC-hijd-selen- vit D3-E (RenaPlex-D) 800 mcg-12.5 mg -2,000 unit [...] 40 mg by mouth 2 times daily. 020 Active calcitrioL 0.5 mcg capsule Take 1 Capsule by mouth daily. Active isosorbide mononitrate (IMDUR) 120 mg Extended Release 24 hour tabletIndications: Hypertensive heart and renal disease 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 ([facility]/HCC) Take 1 Tablet (120 mg) by mouth daily in the morning. 90 Tablet 1 023 Active ondansetron (ZOFRAN) 4 mg TabletIndications: ESRD (end stage renal disease) ([facility]) TAKE 1 TABLET BY MOUTH EVERY 4-6 HOURS NEEDED FOR NAUSEA 60 Tablet 11 023 Active Additional Information Patient not taking.Reported on 12/01/2024 ferrous sulfate 325 mg (65 mg iron) tabletIndications: ESRD (end stage renal disease) ([facility]) Take 65 mg by mouth daily with breakfast. Active ipratropium-albute roL (DUONEB) 0.5 mg-3 mg(2.5 mg base)/3 mL Solution for NebulizationIndica tions:Panlobular emphysema (CMS/HCC) Take 3 mL by inhalation every 6 hours as needed for Shortness of Breath, Wheezing or Respiration. 90 mL 11 023 Active famotidine (PEPCID) 40 mg tabletIndications: Gastroesophageal reflux disease without esophagitis take 1 tablet by mouth 2 times daily 200 Tablet 1 024 Active Additional Information Patient not taking.Reported on 12/01/2024 atorvastatin (LIPITOR) 40 mg tabletIndications: Chronic diastolic heart failure ([facility]),History of hemorrhagic cerebrovascular accident (CVA) without residual deficits take 1 tablet by mouth every day 100 Tablet 1 024 Active citalopram (CeleXA) 20 mg tablet Take 1 Tablet by mouth daily. 024 Active albuterol sulfate HFA 90 mcg/actuation aerosol inhaler Take 4 Puffs by inhalation. 024 Active selexipag (UPTRAVI) 200 mcg TabletIndications: Panlobular emphysema ([facility]) Take 1 Tablet (200 mcg) by mouth 2 times daily. 60 Tablet 024 Active Additional Information Patient not taking.Reported on 12/01/2024 apixaban (Eliquis) 2.5 mg tabletIndications: Longstanding persistent atrial fibrillation ([facility]) Take 1 Tablet (2.5 mg) by mouth 2 times daily. 60 Tablet 3 025 Active carvediloL (COREG) 6.25 mg tabletIndications: Primary hypertension Take 1 Tablet (6.25 mg) by mouth 2 times daily with meals. 60 Tablet 11 025 2025 Active hydrALAZINE (APRESOLINE) 100 mg Tablet tabletIndications: Hypertensive heart and renal disease 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 (CMS/HCC) Take 1 Tablet (100 mg) by mouth 3 times daily. 300 Tablet 1 025 Active furosemide (LASIX) 80 mg tabletIndications: Chronic diastolic heart failure (CMS/HCC) Take 1 Tablet (80 mg) by mouth 2 times daily. 90 Tablet 1 025 Active traZODone (DESYREL) 150 mg tabletIndications: Recurrent major depressive disorder, in partial remission Take 1 Tablet (150 mg) by mouth daily at bedtime. 100 Tablet 3 025 Active budesonide-formote roL (SYMBICORT) 160-4.5 mcg/actuation HFA Aerosol InhalerIndications :Panlobular emphysema (CMS/HCC) Take 2 Puffs by inhalation 2 times daily. 10.2 Gram 11 025 Active aspirin (ECOTRIN EC) 81 mg Tablet, Delayed Release (E.C.) Take 1 Tablet by mouth daily. 025 Active metoprolol tartrate (LOPRESSOR) 50 mg tablet Take 50 mg by mouth 2 times daily. Active fluticasone propion-salmeteroL (ADVAIR HFA) 45-21 mcg/actuation HFA Aerosol Inhaler Take 2 Puffs by inhalation every 12 hours. Active cloNIDine HCL (CATAPRES) 0.1 mg tabletIndications: Primary hypertension Take 1 Tablet (0.1 mg) by mouth 2 times daily as needed for Blood Pressure. 60 Tablet 025 Active oxygen home deliveryIndication s:Chronic respiratory failure with hypoxia (CMS/HCC),Panlobul ar emphysema (CMS/[facility]) Home Oxygen Concentrator yes at 5 L/M Rest, 5 L/M Activity, 5 L/M Sleep, Delivery Device: Nasal Cannula Portability: yes, 5 L/M Rest, 5 L/M Activity, May provide device best for patient needs (E system,home fill, conserving device) Length of Need: 99 months 1 Each 025 Active oxyCODONE (ROXICODONE) 5 mg tablet 025 Active doxycycline hyclate (VIBRAMYCIN) 100 mg capsuleIndications :Surgical site infection,S/P arteriovenous (AV) fistula creation Take 1 Capsule (100 mg) by mouth 2 times daily for 7 days. 14 Capsule 025 2024 Discontinued doxycycline hyclate (VIBRAMYCIN) 100 mg capsuleIndications :Surgical site infection,S/P arteriovenous (AV) fistula creation Take 1 Capsule (100 mg) by mouth 2 times daily for 7 days. 14 Capsule 025 2024 Active Problems Problem Noted Date Diagnosed Date [...] Encounters Date Type Department Care Team Description 12/01/2024 11:00 AM CDT Video Visit [facility] [address] [facility] [address] [place] [address] Mary EllenLeydi, HALEY Surgical site infection (Primary Dx); Declined influenza vaccine; S/P arteriovenous (AV) fistula creation 12/01/2024 Nurse Triage [place] [address] [place] [address] Amanda Molina NP 11/22/2024 External Device Data STL ABSTRACTION Provider, Abstract 11/15/2024 Results Follow-Up [facility] [address] [address] Amanda Molina NP COMPREHENSIVE METABOLIC PANEL, CBC WITH DIFFERENTIAL 11/14/2024 1:00 PM CDT Office Visit [facility] [place] [address] [place] [address] Amanda Molina NP Hospital discharge follow-up (Primary Dx); Hyperkalemia; Primary hypertension; Chronic respiratory failure with hypoxia (CMS/HCC); Panlobular emphysema (CMS/HCC) 11/14/2024 Abstract [facility] [place] [facility] [address] [place] [address] Provider, Abstract 11/13/2024 - 11/13/2024 11:59 PM CDT Hospital Encounter [facility] [address] [phone] Ambulance, [facility] Discharge Disposition: Home or Self Care 11/03/2024 Telephone [facility] [address] [address] Ras Joy MD Question 11/02/2024 External Device Data STL ABSTRACTION Provider, Abstract 10/17/2024 Orders Only [facility] [address] [place] [address] Provider, Abstract 10/15/2024 5:55 AM CDT - 10/15/2024 11:59 PM CDT Hospital Encounter [facility] [address] [phone] [facility] 09/27/2024 External Device Data STL ABSTRACTION Provider, Abstract 09/27/2024 External Device Data STL ABSTRACTION Provider, Abstract 09/22/2024 Telephone [facility] [address] [place] [address] Ras Joy MD Information 09/21/2024 7:00 AM CDT - 09/21/2024 11:59 PM CDT Hospital Encounter [facility] [place] [address] [facility] [address] [place] [address] Ambulance, [facility] Discharge Disposition: [facility] 09/21/2024 Orders Only [facility] [address] [place] [phone] Provider, Abstract 09/16/2024 Telephone [facility] [place] [address] [place] [phone] Amanda Molina NP Hospital Follow Up from Last 3 Months Immunizations Immunization Administration Dates Next Due INFLUENZA VACCINE QUADRIVALENT 6 MOS UP IM 01/29 Influenza Seasonal Unspecified Formulation IM ,12/28/2020 PNEUMOVAX (PPSV23) pneumococ atul polysaccharide 23-valent Vaccine 12/28/2021 Social History Tobacco Use Types Packs/Day Years Used Date Smoking Tobacco: Every Day Cigarettes 1 25 Passive Smoke Exposure: Current Smokeless Tobacco: Never Tobacco Cessation:Ready to Q uit: Not Asked; Counseling Given: Not Answered Comments:less turner 1 ppd [...] on file Legal Sex Male 1:24 PM [employer] Gender Identity Not on file Sexual Orientation Not on file Last Filed Vital Signs Vital Sign Reading Time Taken Comments Blood Pressure 110/80 11/14/2024 12:59 PM CDT Pulse 106 11/14/2024 12:59 PM CDT Temperature 36.8 C (98.3 F) 11/14/2024 12:59 PM CDT Respiratory Rate 25 11/14/2024 12:59 PM CDT Oxygen Saturation 97% 11/14/2024 12:59 PM CDT 5 liters Inhaled Oxygen Concentration - - Weight 90.7 kg (200 lb) 12/01/2024 10:59 AM CDT Height 177.8 cm (5' 10 ) 12/01/2024 10:59 AM CDT Body Mass Index 28.7 12/01/2024 10:59 AM CDT Plan of Treatment Health Maintenance Due Date [...] 5 years 2018 Pre-Diabetes and Diabetes Screening 01/10/202201/10, 06/01/2017 Traditional Medicare (ACO) A nnual Wellness Visit 02/25/2023 02/24/2022 Lung Cancer Screening 2023 ZOSTER VACCINE (1 of 2) 2023 Medicare Advantage ([place]) Prev entative Visit/Annual Wellness Visit 03/30/2024 02/24/2022 INFLUENZA VACCINE (#1) 2024 3, 12/28/2021, 12/28/2020 Abdominal Aortic Aneurysm (A AA) Screening Completed 08/02/2023 Medical Devices Implanted Type Area Chief Nursing Officer Device Identifier Shelf Expiration Date Model / Serial / Lot Catheter Catheter Chest Cath Dialysis [employer] 14.5fr 27cm Std [id number] Implanted:Qty : 1 on 02/25/2021 by Raffi Mckinnon MD Catheter Left: Chest CR [employer] 06/27/2022 [id number] / / [id number] Procedures Procedure Name Priority Date/Time Associated Diagnosis Comments CBC WITH DIFFERENTIAL Routine 11/14/2024 1:33 PM CDT Hyperkalemia COMPREHENSIVE METABOLIC PANEL Routine 11/14/2024 1:33 PM CDT Hyperkalemia COMPREHENSIVE METABOLIC PANEL Routine 10/15/2024 10:28 AM CDT COMPREHENSIVE METABOLIC PANEL Routine 09/21/2024 2:04 PM CDT HEMOGLOBIN A1C Routine 01/10/2019 9:33 PM CDT from Last 3 Months or Most Recently Relevant to Health Maintenance Results * (ABNORMAL) CBC WITH DIFFERENTIAL (11/14/2024 1:33 PM CDT) WBC 5.8 3.8 - 10.8 Thousand/u L [facility] RBC 4.35 4.20 - 5.80 Million/uL [facility] HEMOGLOBIN 14.2 13.2 - 17.1 g/dL [facility] HEMATOCRIT 44.4 38.5 - 50.0 % [facility] MCV 102.1(H) 80.0 - 100.0 fL [facility] MCH 32.6 27.0 - 33.0 pg [facility] MCHC 32.0 32.0 - 36.0 g/dL [facility] Comment: For adults, a slight decrease in the calculated MCHC value (in the range of 30 to 32 g/dL) is most likely not clinically significant; however, it should be interpreted with caution in correlation with other red cell parameters and the patient's clinical condition. RDW 15.1(H) 11.0 - 15.0 % [facility] PLATELETS 238 140 - 400 Thousand/u L [facility] MPV 9.5 7.5 - 12.5 fL [facility] NEUTROPHIL ABSOLUTE 3,329 1,500 - 7,800 cells/uL [facility] LYMPHOCYTE ABSOLUTE 922 850 - 3,900 cells/uL [facility] MONOCYTE ABSOLUTE 655 200 - 950 cells/uL [facility] EOSINOPHIL ABSOLUTE 771(H) 15 - 500 cells/uL [facility] BASOPHILS ABSOLUTE 122 0 - 200 cells/uL [facility] NEUTROPHIL 57.4 % [facility] LYMPHOCYTES 15.9 % [facility] MONOCYTE 11.3 % [facility] EOSINOPHILS 13.3 % [facility] BASOPHILS 2.1 % [facility] Comment: Test Performed at: [facility] [address] [facility] [place] [address] Angel Walker MD Blood 11/14/2024 1:33 PM CDT 11/15/2024 3:51 AM CDT us Amanda Molina NP HEMATOLOGY ORDERABLES Final Re sult [facility] [phone] [email or web address] [address] [facility] [place] [address] * (ABNORMAL) COMPREHENSIVE METABOLIC PANEL (11/14/2024 1:33 PM CDT) Only the most recent of3 resultswithin the time period is included. GLUCOSE 95 65 - 99 mg/dL [facility] Comment: Fasting reference interval BUN 35(H) 7 - 25 mg/dL [facility] CREATININE 6.39(H) 0.70 - 1.30 mg/dL [facility] GFR 10(L) > OR = 60 mL/min/1.7 3m2 [facility] BUN/CREAT RATIO 5(L) 6 - 22 (calc) [facility] SODIUM 138 135 - 146 mmol/L [facility] POTASSIUM 4.4 3.5 - 5.3 mmol/L [facility] CHLORIDE 95(L) 98 - 110 mmol/L [facility] CO2 34(H) 20 - 32 mmol/L [facility] CALCIUM 9.6 8.6 - 10.3 mg/dL [facility] TOTAL PROTEIN 6.8 6.1 - 8.1 g/dL [facility] ALBUMIN 3.9 3.6 - 5.1 g/dL [facility] GLOBULIN 2.9 1.9 - 3.7 g/dL (calc) [facility] ALBUMIN/GLOBULIN RATIO 1.3 1.0 - 2.5 (calc) [facility] BILIRUBIN TOTAL 0.5 0.2 - 1.2 mg/dL [facility] ALKALINE PHOSPHATASE 187(H) 35 - 144 U/L [facility] AST 13 10 - 35 U/L [facility] ALT 10 9 - 46 U/L [facility] Comment: Test Performed at: [facility] [employer] [address] [facility] [place] [address] Angel Walker MD Blood 11/14/2024 1:33 PM CDT 11/15/2024 3:51 AM CDT us Amanda Molina NP CHEMISTRY ORDERABLES Final Res ult [facility] [phone] [email or web address] [address] [place] [address] * HEMOGLOBIN A1C (01/10/2019 9:33 PM CDT) HEMOGLOBIN A1C 5.4 <=5.6 % 01/11/2019 12:59 AM CDT [facility] EST. AVG GLUCOSE, A1C 108 mg/dL 01/11/2019 12:59 AM CDT [facility] Blood Collection / Unknown 01/10/2019 9:33 PM CDT 01/11/2019 12:05 AM CDT Narrative [facility] - 01/11/2019 12:59 AM CDT HGB A1C INTERPRETATION NORMAL: <5.7% PRE-DIABETES: 5.7 - 6.4% DIABETES: 6.5% OR GREATER us Ras Joy MD CHEMISTRY ORDERABLES Nancy childers Result [facility] CLIA # [id number] [address] [place] [id number] [facility] CLIA # [id number] [address] [place] [id number] from Last 3 Months or Most Recently Relevant to Health Maintenance Insurance UHC PPO [facility] [place] [address] Advance Directives For more information, please contact: [phone] * NO CPR (In Event of Cardiopulmonary Arrest) (Latest Code Status on File) Date Activated Date Inactivated Comments 12/09/2023 12:43 PM 01/14/2024 3:03 PM Question Answer Comments Mechanical Ventilation (for respiratory distress) - Invasive (i.e. intubation): No Mechanical Ventilation (for respiratory distress) - Non-Invasive (i.e. BiPAP, CPAP): Yes Care Teams Pot Builder Relationship Specialty Start Date End Date Ras Joy MD [address] [address] PCP - General Family Practice 03/04/23
[2024-12-14 01:58] LABS: Hematocrit 47.5 % (37-53); Hemoglobin 14.70 g/dL (11.27-16.99); Mean Corpuscular HGB Conc 30.9 g/dL (30-55); Mean Corpuscular Hemoglobin 32.1 pg (27-33); Mean Corpuscular Volume 103.7 fl (82-101); Nucleated Red Blood Cells % 0 %; Platelet Count 232 10^3/cmm (157-399); Red Blood Count 4.58 10^6/uL (3.85-5.65); White Blood Count 7.56 10^3/uL (3.29-11.43)
[2024-12-14 02:17] LABS: Troponin(5th) Baseline 75 ng/L (0-15)
[2024-12-14 02:18] LABS: Lactic Sepsis W/Reflex 1.2 mmol/L (0.5-2.2)
[2024-12-14 02:24] LABS: Alanine Aminotransferase 8 U/L (0-41); Albumin Level 4.1 g/dL (3.5-5.2); Alkaline Phosphatase 319 U/L (40-130); Aspartate Amino Transferase 14 U/L (0-40); Blood Urea Nitrogen 62 mg/dL (6-20); Calcium 9.1 mg/dL (8.5-10.5); Carbon Dioxide 26 mmol/L (22-29); Chloride 96 mmol/L (98-107); Globulin 3.0 g/dL (1.3-4.6); Glucose 85 mg/dL (65-115); Osmolality Calculated 309 mOsm/kg (285-295); Sodium 141 mmol/L (136-145); Total Protein 7.1 g/dL (6.6-8.7)
[2024-12-14 02:29] LABS: Anion Gap 24.4 (5-19); Potassium 5.4 mmol/L (3.5-5.1)
[2024-12-14 03:30] LABS: Troponin 5 2HR 72.21 ng/L (0-15)
[2024-12-14 03:39] LABS: Troponin 5 2HR Delta -2.79 ABS# (0-10)
[2024-12-14 04:55] VITALS: BP 152/96; PULSE 117; RESP 20; O2SAT 92
--- NOTE | 2024-12-14 06:05 | DCPLANNER ---
I spoke to the patient and explained we was changing his [facility] medicaid ride to now come to the er when discharged and take him to [facility] dialysis clinic in [facility] and then I was calling the clinic at 6am to make sure to get his dialysis appointment done today after discharge and he was agreeing to this apon discharge and gave me the clinic phone number to call. the patient then stated he must likely not go to [facility] because he would rather go home and would let us know if the plan changes. The patient then went to the registration desk and told tracy to cancel the medicaid ride. he is no longer going to Dialysis because he wants to go home. Patient called a friend to come pick him up and take him home.
== END 2024-12-14 04:58 | disposition home or self-care (01) ==
PROVIDERS: Emergency Provider Emergency Medicine; PCP Family Medicine
DX: J44.1 Chronic obstructive pulmonary disease with (acute) exacerbation (principal); I13.2 Hypertensive heart and chronic kidney disease with heart failure and with stage 5 chronic kidney disease, or end stage renal disease; N18.6 End stage renal disease; I50.30 Unspecified diastolic (congestive) heart failure; Z99.2 Dependence on renal dialysis; F17.210 Nicotine dependence, cigarettes, uncomplicated
CPT/HCPCS: 36415; 71045; 80053; 83605; 84484; 85025; 87040; 94640; 99285; J7512; J7613; J9999

== ENCOUNTER 2025-01-23 01:23 | Inpatient (IN) | payer MEDICARE, SELFPAY ==
[2025-01-23] VITALS (62 sets, daily range): BP systolic 84–163; BP diastolic 59–117; PULSE 77–132; RESP 12–147; TEMP 36.7–37.3; O2SAT 89–100; BMI 29.0; BMI 29.6
--- NOTE | 2025-01-23 01:32 | ECG_ITS ---
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 Measurements Intervals [place] Rate: 132 P: 0 IA: 0 QRS: -75 QRSD: 131 T: 75 QT: 295 QTc: 438 Interpretive Statements ATRIAL FIBRILLATION WITH RAPID VENTRICULAR RESPONSE INTRAVENTRICULAR CONDUCTION DELAY [130+ ms QRS DURATION] Peaked T waves, consider ischemia and hyperkalemia INTERPRETATION BASED ON A DEFAULT AGE OF 40 YEARS Compared to ECG 10/15/2024 13:24:05 QRS has widened Ventricular premature complex(es) no longer present heart rate has increased Electronically Signed On 01-26-2025 08:23:53 CDT by Odell Fox M.D. [id number]
--- NOTE | 2025-01-23 01:37 | XRR_ITS ---
PROCEDURE INFORMATION: Exam: XR Chest Exam date and time: 01/23/2025 1:40 AM Age: 49 years old Clinical indication: Shortness of breath; Chest pressure; Prior surgery; Surgery date: 6+ months; Surgery type: Dialysis cath; Chest pain with SOB and tachycardia. History of chf. ; Additional info: Cp SOB TECHNIQUE: Imaging protocol: Radiologic exam of the chest. Views: 1 view. COMPARISON: CR (CHEST, ) 12/14/2024 1:39 AM FINDINGS: Tubes, catheters and devices: Right subclavian dual lumen hemodialysis catheter in stable position. Lungs: Multiple bilateral lung calcified granulomas. No acute infiltrate or consolidation. Pleural spaces: Unremarkable. No pleural effusion. No pneumothorax. Heart/Mediastinum: Unchanged cardiomegaly. Bones/joints: Severe deformity/degenerative change of the left shoulder. No acute osseous abnormality. XR/XR chest 1V portable [id number] IMPRESSION: No identified acute cardiopulmonary process. Unchanged cardiomegaly.
--- OUTSIDE RECORDS SUMMARY | 2025-01-23 01:38 | XMS_ITS | Clinical Summary ---
Author Organization [facility] Address [address] [place]: Epic Prelude ADT [place] [address] Care Team Providers Care Soil Chemist Name Role Phone Ras Joy MD Primary Care Provider [phone] Allergies Active Allergy Reactions Criticality Noted Date Comments Lisinopril Swelling Low 08/20/2021 Penicillins Rash,Itching,Other (See Comments) Low 0 05/12/2018 Tramadol Itching Low 05/03/2019 Medications sucroferric oxyhydroxide (Velphoro) 500 mg Tablet, Chewable Take 1,500 mg by mouth 3 times daily. If he has a snack he will take 2-[address] Pillai Active vit B,D-EI-kumb-selen-v it D3-E (RenaPlex-D) 800 mcg-12.5 mg -2,000 [...] heart failure and end stage renal disease Take 1 Tablet (120 mg) by mouth daily in the morning. 90 Tablet 1 03/04/20 23 Active ondansetron (ZOFRAN) 4 mg TabletIndications:E SRD (end stage renal disease) TAKE 1 TABLET BY MOUTH EVERY 4-6 HOURS NEEDED FOR NAUSEA 60 Tablet 11 03/04/20 23 Active Additional Information Patient not taking.Reported on 12/01/2024 ferrous sulfate 325 mg (65 mg iron) tabletIndications:E SRD (end stage renal disease) Take 65 mg by mouth daily with breakfast. Active ipratropium-albuter oL (DUONEB) 0.5 mg-3 mg(2.5 mg base)/3 mL Solution for NebulizationIndicat ions:Panlobular emphysema Take 3 mL by inhalation every 6 hours as needed for Shortness of Breath, Wheezing or Respiration. 90 mL 11 03/04/20 23 Active famotidine (PEPCID) 40 mg tabletIndications:G astroesophageal reflux disease without esophagitis take 1 tablet by mouth 2 times daily 200 Tablet 1 09/04/19 24 Active Additional Information Patient not taking.Reported on 12/01/2024 atorvastatin (LIPITOR) 40 mg tabletIndications:C hronic diastolic heart failure,History of hemorrhagic cerebrovascular accident (CVA) without residual deficits take 1 tablet by mouth every day 100 Tablet 1 09/15/19 24 Active citalopram (CeleXA) 20 mg tablet Take 1 Tablet by mouth daily. 11/26/19 24 Active albuterol sulfate HFA 90 mcg/actuation aerosol inhaler Take 4 Puffs by inhalation. 11/25/19 24 Active selexipag (UPTRAVI) 200 mcg TabletIndications:P anlobular emphysema Take 1 Tablet (200 mcg) by mouth 2 times daily. 60 Tablet 03/11/20 24 Active Additional Information Patient not taking.Reported on 12/01/2024 apixaban (Eliquis) 2.5 mg tabletIndications:L ongstanding persistent [...] heart failure and end stage renal disease Take 1 Tablet (100 mg) by mouth 3 times daily. 300 Tablet 1 04/22/19 25 Active furosemide (LASIX) 80 mg tabletIndications:C hronic diastolic heart failure Take 1 Tablet (80 mg) by mouth 2 times daily. 90 Tablet 1 04/22/19 25 Active traZODone (DESYREL) 150 mg tabletIndications:R ecurrent major depressive disorder, in partial remission Take 1 Tablet (150 mg) by mouth daily at bedtime. 100 Tablet 3 05/02/19 25 Active budesonide-formoter oL (SYMBICORT) 160-4.5 mcg/actuation HFA Aerosol InhalerIndications: Panlobular emphysema Take 2 Puffs by inhalation 2 times daily. 10.2 Gram 11 08/04/19 25 Active aspirin (ECOTRIN EC) 81 mg Tablet, Delayed Release (E.C.) Take 1 Tablet by mouth daily. 09/24/19 25 Active metoprolol tartrate (LOPRESSOR) 50 mg tablet Take 50 mg by mouth 2 times daily. Active fluticasone propion-salmeteroL (ADVAIR HFA) 45-21 mcg/actuation HFA Aerosol Inhaler Take 2 Puffs by inhalation every 12 hours. Active cloNIDine HCL (CATAPRES) 0.1 mg tabletIndications:P rimary hypertension Take 1 Tablet (0.1 mg) by mouth 2 times daily as needed for Blood Pressure. 60 Tablet 11/15/19 25 Active oxygen home deliveryIndications :Chronic respiratory failure with hypoxia (CMS/HCC),Panlobula r emphysema Home Oxygen Concentrator yes at 5 L/M Rest, 5 L/M Activity, 5 L/M Sleep, Delivery Device: Nasal Cannula Portability: yes, 5 L/M Rest, 5 L/M Activity, May provide device best for patient needs (E system,home fill, conserving device) Length of Need: 99 months 1 Each 11/15/19 25 Active oxyCODONE (ROXICODONE) 5 mg tablet 11/18/19 25 Active Active Problems Problem Noted Date [...] Encounters Date Type Department Care Team Description 01/05/2025 Telephone [facility] [address] [phone] Ras Joy MD Medication Assistance 12/15/2024 Orders Only [facility] Health Information Management [place] [address] [place] [address] Provider, Abstract 12/14/2024 6:05 AM CDT - 12/14/2024 11:59 PM CDT Hospital Encounter [facility] Emergency Medical Services [place] [address] [phone] Ambulance, [facility] Discharge Disposition: [facility] 12/01/2024 11:00 AM CDT Video Visit [facility] [address] [phone] Mary EllenLeydi gomez FNP Surgical site infection (Primary Dx); Declined influenza vaccine; S/P arteriovenous (AV) fistula creation 12/01/2024 Nurse Triage [facility] [address] [place] [address] Amanda Molina NP 11/22/2024 External Device Data [facility] ABSTRACTION Provider, Abstract 11/15/2024 Results Follow-Up [facility] [address] [phone] Amanda Molina NP COMPREHENSIVE METABOLIC PANEL, CBC WITH DIFFERENTIAL 11/14/2024 1:00 PM CDT Office Visit [facility] [address] [place] [address] Amanda Molina NP Hospital discharge follow-up (Primary Dx); Hyperkalemia; Primary hypertension; Chronic respiratory failure with hypoxia (CMS/HCC); Panlobular emphysema (CMS/HCC) 11/14/2024 Abstract [facility] [address] [place] [address] Provider, Abstract 11/13/2024 - 11/13/2024 11:59 PM CDT Hospital Encounter [facility] Emergency Medical Services [place] [address] [phone] Ambulance, [facility] Discharge Disposition: Home or Self Care 11/03/2024 Telephone [facility] [address] [phone] Ras Joy MD Question 11/02/2024 External Device Data [facility] ABSTRACTION Provider, Abstract from Last 3 Months Immunizations Immunization Administration [...] on file 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 Gender Identity Not on file Sexual Orientation [...] 03/30/2024 02/24/2022 INFLUENZA VACCINE (#1) 2024 , 12/28/2021, 12/28/2020 Abdominal Aortic Aneurysm (A AA) Screening Completed 08/02/2023 Medical Devices Implanted Type Area Ehs Engineer Device Identifier Shelf Expiration Date Model / Serial / Lot Catheter Catheter Chest Cath Dialysis Glidepath 14.5fr 27cm Std [id number] Implanted:Qty : 1 on 02/25/2021 by Raffi Mckinnon MD Catheter Left: Chest CR [employer] 06/27/2022 [id number] / / [id number] Procedures Procedure Name Priority Date/Time Associated Diagnosis Comments COMPREHENSIVE METABOLIC PANEL Routine 12/14/2024 2:51 PM CDT CBC WITH DIFFERENTIAL Routine 11/14/2024 1:33 PM CDT Hyperkalemia COMPREHENSIVE METABOLIC PANEL Routine 11/14/2024 1:33 PM CDT Hyperkalemia HEMOGLOBIN A1C Routine 01/10/2019 9:33 PM CDT from Last 3 Months or Most Recently Relevant to Health Maintenance Results * COMPREHENSIVE METABOLIC PANEL (12/14/2024 2:51 PM CDT) Only the most recent of2 resultswithin the time period is included. Blood us Abstract Provider CHEMISTRY ORDERABLES Final Res ult * (ABNORMAL) CBC WITH DIFFERENTIAL (11/14/2024 1:33 [...] [facility] Comment: Test Performed at: [facility] [address] [place] [address] Angel Walker MD Blood 11/14/2024 1:33 PM CDT 11/15/2024 3:51 AM CDT us Amanda Molina NP HEMATOLOGY ORDERABLES Final Re sult [facility] [phone] [facility] [address] [place] [address] * HEMOGLOBIN A1C (01/10/2019 9:33 PM CDT) HEMOGLOBIN A1C 5.4 <=5.6 % 01/11/2019 12:59 AM CDT [facility] EST. AVG GLUCOSE, A1C 108 mg/dL 01/11/2019 12:59 AM CDT [facility] Blood Collection / Unknown 01/10/2019 9:33 PM CDT 01/11/2019 12:05 AM CDT Narrative [facility] - 01/11/2019 12:59 AM CDT HGB A1C INTERPRETATION NORMAL: <5.7% PRE-DIABETES: 5.7 - 6.4% DIABETES: 6.5% OR GREATER us Ras Joy MD CHEMISTRY ORDERABLES Nancy l Result Performing Organization Address City/[facility]/ZIP Co de Phone Number [facility] [id number] [address] [place] [address] [facility] # [id number] [address] [place] [address] from Last 3 Months or Most Recently Relevant to Health Maintenance Insurance [facility] PPO SNP [facility] Advance Directives For more information, please contact: [phone] * NO CPR (In Event of Cardiopulmonary Arrest) (Latest Code Status on File) Date Activated Date Inactivated Comments 12/09/2023 12:43 PM 01/14/2024 3:03 PM Question Answer Comments Mechanical Ventilation (for respiratory distress) - Invasive (i.e. intubation): No Mechanical Ventilation (for respiratory distress) - Non-Invasive (i.e. BiPAP, CPAP): Yes Care Teams Soil Chemist Relationship Specialty Start Date End Date Ras Joy MD [address] [address] PCP - General Family Practice 03/04/23
--- OUTSIDE RECORDS SUMMARY | 2025-01-23 01:38 | XMS_ITS | Encounter Summary ---
Author Organization [facility] Address 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 Topic: Medication Request >> Jan 05, 2025 10:03 AM Edwin Rubi wrote: Caller Name: Leopoldo Schaefer Callback Number: [phone] (mobile) Medication (Ask patient/caregiver to spell if possible): Portable Oxygen Concentrator Note: All medication prescriptions can be requested using one CRM Caller is requesting: Medication Question from Patient (not involving new prescription or refill) Preferred Pharmacy: [facility] Call Notes: Caller has question about getting a portable oxygen concentrator, requesting call back. Is there an encounter open? No documented in this encounter Plan of Treatment Not on file documented as of this encounter Visit Diagnoses Not on filedocumented in this encounter Care Teams Underbaster Relationship Specialty Start Date End Date Ras Joy MD [address] [phone] PCP - General Family Practice 03/04/23 documented as of this encounter
--- OUTSIDE RECORDS SUMMARY | 2025-01-23 01:38 | XMS_ITS | Clinical Summary ---
Author Organization [facility] Address [address] [address] Phone Care Team Providers Care Buckle Sewer Name Role Phone Ras Joy MD Primary Care Provider [phone] Allergies Active Allergy Reactions Criticality Noted Date [...] mcg/actuation inhalerIndicati ons:Pulmonary emphysema, unspecified emphysema type Inhale 2 puffs 2 (two) times a day. 10.2 g 3 5 Active Additional Information Patient not taking.Informant: Self, Reported on 09/16/2024 Hospital, Clinic, or Other Facility Administered Medication Ordered Dose Route Frequency Start Date End Date Status albuterol (Proventil;Ventolin) 90 mcg/actuation inhaler 4 puffIndications:COPD (chronic obstructive pulmonary disease) ([facility]) 4 puff inhl Once 11/25/2023 Active albuterol (Proventil;Ventolin) 90 mcg/actuation inhaler 4 puffIndications:Pulmonary emphysema, unspecified emphysema type,Former smoker 4 puff inhl Once 05/27/2024 Active Active Problems Problem Noted Date Diagnosed [...] 09/02/2022 07/16/2023 Hypertensive crisis 01/22/2021 11/14/19 23 Family History Medical History Relation Comments No [...] or pharmacy? Patient declines to respond 10/06/2023 [facility] Utilities Answer Date Recorded In the past 12 months has e [employer], [employer], oil, or water [employer] threatened to shut off services in your [...] declined 10/06/2023 How often do you attend yarsani or mosque serv ices? Patient declined 10/06/2023 Do you belong to any clubs o r organizations such as yarsani groups, unions, fraternal or athletic groups, or [...] Recorded Patient Health Questionnaire-2 Score 2 05/27/2024 [facility] - Occupational Stress Questionnaire Answer Date Recorded [...] place to sleep or slept in a jail (including now)? No 08/30/2023 Housing Stability Vital [...] any time in the past 12 m [facility], were you homeless or living in a jail (including now)? No 01/08/2024 [facility] - Mental Health Answer Date Recorde [...] 91.2 kg (201 lb) 05/27/2024 10:04 AM PACS ADMINISTRATOR Height 175.3 cm (5' 9 ) 09/16/2024 6:07 AM CDT Body Mass Index 29.68 05/27/2024 10:04 AM PACS ADMINISTRATOR Plan of Treatment Health Maintenance Due Date [...] series) 1992 Medicare Initial AWV [id number] 03/30/2020 [facility] Lung Cancer Screening Shared Decision Making 2023 Zoster Vaccines (1 of 2) 2023 Echocardiogram 07/14/2024 07/15/2023, 10/28, 09/02/2022, Additional history exists COVID-19 Vaccine ( season) 2024 Influenza Vaccine (#1) 2024 , [...] this topic Medical Devices Implanted Type Area Pocket Secretary Assembler Device Identifier Shelf Expiration Date Model / Serial / Lot Catheter Catheter Right: Subclavian Screw Screw Right: Hand Procedures Procedure Name Priority Date/Time Associated Diagnosis Comments COMPREHENSIVE METABOLIC PANEL STAT 09/16/2024 7:00 AM CDT LIPID PANEL Pending Discharge 01/09/2024 5:51 AM CDT HEMOGLOBIN A1C Add-On 01/07/2024 5:20 PM CDT TRANSTHORACIC ECHO (TTE) COMPLETE W/ COLOR AND DOPPLER Routine 07/15/2023 4:12 PM CDT from Last 3 Months or Most Recently Relevant to Health Maintenance Results * (ABNORMAL) Comprehensive metabolic panel (09/16/2024 7:00 AM CDT) [facility] Glucose 90 70 - 100 mg/dL LAB CHEMISTRY METHOD 09/16/2024 7:33 AM CDT [facility] BUN 68(H) 9 - 20 mg/dL LAB CHEMISTRY METHOD 09/16/2024 7:33 AM CDT [facility] Creatinine 9.82(H) 0.66 - 1.25 mg/dl LAB CHEMISTRY METHOD 09/16/2024 7:33 AM CDT [facility] BUN/Creatinine Ratio 7(L) 12 - 17 LAB CHEMISTRY METHOD 09/16/2024 7:33 AM CDT [facility] Sodium 132(L) 135 - 145 mmol/L LAB CHEMISTRY METHOD 09/16/2024 7:33 AM CDT [facility] Potassium 5.4(H) 3.6 - 5.0 mmol/L LAB CHEMISTRY METHOD 09/16/2024 7:33 AM CDT [facility] Chloride 98(L) 101 - 111 mmol/L LAB CHEMISTRY METHOD 09/16/2024 7:33 AM CDT [facility] Total Carbon Dioxide 27 22 - 30 mmol/L LAB CHEMISTRY METHOD 09/16/2024 7:33 AM CDT [facility] Anion Gap 12 9 - 17 mmol/L LAB CHEMISTRY METHOD 09/16/2024 7:33 AM CDT [facility] Calcium 9.1 8.2 - 10.2 mg/dL LAB CHEMISTRY METHOD 09/16/2024 7:33 AM CDT [facility] Total Protein, Serum 7.4 5.6 - 8.5 g/dL LAB CHEMISTRY METHOD 09/16/2024 7:33 AM CDT [facility] Albumin 3.1(L) 3.5 - 5.2 g/dL LAB CHEMISTRY METHOD 09/16/2024 7:33 AM CDT [facility] GLOBULIN 4.3(H) 2.1 - 3.8 g/dL LAB CHEMISTRY METHOD 09/16/2024 7:33 AM CDT [facility] A/G Ratio 0.7(L) 1.4 - 1.7 LAB CHEMISTRY METHOD 09/16/2024 7:33 AM CDT [facility] Bilirubin, Total 0.8 0.1 - 1.3 mg/dL LAB CHEMISTRY METHOD 09/16/2024 7:33 AM CDT [facility] Alkaline Phosphatase 248(H) 45 - 117 U/L LAB CHEMISTRY METHOD 09/16/2024 7:33 AM CDT [facility] ALT (SGPT) 13 11 - 58 U/L LAB CHEMISTRY METHOD 09/16/2024 7:33 AM CDT [facility] AST (SGOT) 9 9 [...] MD LAB BLOOD ORDERABLES Final Re sult [facility] [address] [address] * Lipid Panel (01/09/2024 5:51 AM CDT) [facility] Cholesterol, Total 94 0 - 200 mg/dL [...] LAB CHEMISTRY METHOD 01/09/2024 6:43 AM CDT [facility] Comment: NCEP guidelines: Low: Less than 40 mg/dL Normal: 40 - 60 mg/dL High: Greater than 60 mg/dL LDL 41 0 - 130 mg/dL LAB CHEMISTRY METHOD 01/09/2024 6:43 AM CDT [facility] Blood Venous blood specimen / Unknown Venipuncture / Unknown 01/09/2024 5:51 AM CDT 01/09/2024 6:10 AM CDT Michele Cage MD LAB BLOOD ORDERABLES F inal Result Performing Organization Address City/[facility] de Phone Number [facility] [address] [place] [address] * Hemoglobin A1c (01/07/2024 5:20 PM CDT) Hemoglobin A1c 4.7 % 01/08/2024 10:47 AM CDT [facility] Estimated Average Glucose 88 mg/dL 01/08/2024 10:47 AM CDT [facility] Blood Venous blood specimen / Unknown Existing Catheter / Unknown 01/07/2024 5:20 PM CDT 01/07/2024 5:28 PM CDT Narrative [facility] - 01/08/2024 10:47 AM CDT HgbA1C ranges recommended by the [place] Diabetes [employer] (ADA): >6.5% Diabetic 5.7-6.4% Pre-Diabetic <5.7% Non-Diabetic us Oumar Angulo MD LAB BLOOD ORDERABLES Final Resul t Performing Organization Address City/[facility]/ZIP Co de Phone Number [facility] [address] [place] [address] * TRANSTHORACIC ECHO (TTE) COMPLETE W/ COLOR [...] date time: 07/15/2023 3:34 PM Accession no: [id number] Patient status: Routine Visit no: [id number] HR: 115 bpm Study location: Portable In/Out patient: Inpatient Technical quality: Adequate Blood pressure: 120 / 77 mmHg Room no: 254N Procedure Staff Referring Physician: Declan Castrejon M.D. Appeals Manager: Michelle Bundy [facility] RVT Interpreting physician: Declan Castrejon M.D. Physician [...] 07/15/2023 Demographics Patient name: BALAJI VAZQUEZPatient ID: [id number] Gender: MaleAge: 48 year(s) Date of : 1975BMI: 27.13 kg/m^2 Height: 177 cmBSA: 2.02 m^2 Weight: 85 kgEthnicity: None Race: Procedure Information Procedure type: Echo Proc. sub type: TTE procedure: Transthoracic Echo (TTE)Complete. Start date time: 07/15/2023 3:34 PMAccession no: [id number] Patient status: RoutineVisit no: [id number] HR: 115 bpmStudy location: Portable In/Out patient: InpatientTechnical quality: Adequate Blood pressure: 120 / 77 mmHg Room no: 254N Procedure Staff Referring Physician: Declan Castrejon M.D. Appeals Manager: Michelle Bundy [facility] RVT Interpreting physician: Declan Castrejon M.D. Physician [...] Comment:01/08/24: MRSA PCR + 03/22/2023 01/08/2024 Insurance [employer] CARE IMPROVEMENT PLUS Advance Directives For more information, please contact: [phone] (7:30 AM - 5PM [facility], 7 days a week) Documents on File Type Date Recorded Patient Payroll Secretary Expl anation Advance Directives and Livin g [...] 11:40 PM 08/20/2023 10:44 PM Care Teams Buckle Sewer Relationship Specialty Start Date End Date Ras Joy MD [address] [place] [address] PCP - General Family Medicine 05/04/23
--- OUTSIDE RECORDS SUMMARY | 2025-01-23 01:40 | XMS_ITS | Encounter Summary ---
Author Organization [facility] Address [address] [place] [address] Phone Care Team Providers Care Party Plan Demonstrator Name Role Phone Lida Woods MD Primary Care Provider Ras David MD Primary Care Provider [phone] Encounter Details Date Type Department Care Team (Late st Contact Info) Description 04/21/2023 Orders Only [facility] [address] [phone] Felecia Ortega, SHAWNA [address] [phone] Social History Tobacco Use Types Packs/Day Years Used Date Smoking Tobacco: Every Day Cigarettes Smokeless Tobacco: Never Alcohol Use Standard Drinks/Week Comments Never 0 (1 standard drink = 0.6 oz pur e alcohol) [facility] Utilities Answer Date Recorded In the past 12 months has [facility] [employer], gas, oil, or water [employer] threatened to shut off services in your [...] often do you attend chur ch or zoroastrianism services? Patient declined 04/22/2023 Do you belong to any clubs o r organizations such as sikh groups, unions, fraternal or athletic groups, or [...] medical care, and heating? Patient declined 04/22/2023 [facility] ional [facility] - Occupational Stress Questionnaire Answer Date [...] documented as of this encounter Care Teams Party Plan Demonstrator Relationship Specialty Start Date End Date Lida Woods MD [address] [place] [address] [place] [address] PCP - General Family Medicine 09/02/22 Ras Joy MD [address] [place] [address] PCP - General Family Medicine 05/04/23 documented as of this encounter
--- OUTSIDE RECORDS SUMMARY | 2025-01-23 01:40 | XMS_ITS | Encounter Summary ---
Author Organization [facility] Address [address] [place] [address] Phone Care Team Providers Care Used Car Lot Attendant Name Role Phone Lida Woods MD Primary Care Provider UnaRas Uriarte MD Primary Care Provider [phone] Reason for Visit * Reason Onset Date Comments Med Refill 10/27/2022 Encounter Details Date Type Department Care Team (Late st Contact Info) Description 10/27/2022 Refill MED TELE [address] [place] [phone] Michele Cage MD [address] [place] [phone] Social History Tobacco Use Types Packs/Day Years [...] COVID-19 Rule-Out 02/23/2023 02/23/2023 02/23/2023 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 COVID-19 Rule-Out 02/23/2023 02/23/2023 02/23/2023 8:27 AM STRUCTURAL DRAFTSMAN MRSA Comment:01/08/24: MRSA PCR + 03/22/2023 01/08/2024 COVID-19 Rule-Out 07/12/2023 07/12/2023 07/12/2023 6:24 AM CDT COVID-19 Rule-Out 07/30/2023 07/30/2023 07/30/2023 12:45 AM CDT COVID-19 Rule-Out 07/31/2023 07/31/2023 07/31/2023 3:26 PM CDT COVID-19 Rule-Out 01/07/2024 01/07/2024 01/07/2024 6:10 PM CDT COVID-19 Rule-Out 09/16/2024 09/16/2024 09/16/2024 9:01 AM CDT documented as of this encounter Care Teams Used Car Lot Attendant Relationship Specialty Start Date End Date Lida Woods MD [address] [place] [address] PCP - General Family Medicine 09/02/22 Ras Joy MD [address] [place] [address] PCP - General Family Medicine 05/04/23 documented as of this encounter
--- OUTSIDE RECORDS SUMMARY | 2025-01-23 01:40 | XMS_ITS | Encounter Summary ---
Author Organization [facility] Address [address] [place] [phone] Phone Care Team Providers Care Bread Molder Name Role Phone Lida Woods MD Primary Care Provider Unav Ras Huber MD Primary Care Provider [phone] Reason for Visit * Reason Comments Med Change Request Encounter Details Date Type Department Care Team (Late st Contact Info) Description 09/27/2022 Refill MED TELE [address] [place] [phone] [phone] Michele Cage MD [address] [place] [address] [phone] Social History Tobacco Use Types Packs/Day Years [...] COVID-19 Rule-Out 02/23/2023 02/23/2023 02/23/2023 6: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 [employer] M[employer]ER COVID-19 Rule-Out 02/23/2023 02/23/2023 02/23/2023 8:27 AM WET PROCESS ASSISTANT [employer] M[employer] MRSA Comment:01/08/24: MRSA PCR + 03/22/2023 01/08/2024 COVID-19 Rule-Out 07/12/2023 07/12/2023 07/12/2023 6:24 AM CDT COVID-19 Rule-Out 07/30/2023 07/30/2023 07/30/2023 12:45 AM CDT COVID-19 Rule-Out 07/31/2023 07/31/2023 07/31/2023 3:26 PM CDT COVID-19 Rule-Out 01/07/2024 01/07/202401/07/2024 6:10 PM CDT COVID-19 Rule-Out 09/16/2024 09/16/2024 09/16/2024 9:01 AM CDT documented as of this encounter Care Teams Bread Molder Relationship Specialty Start Date End Date Lida Woods MD [address] [place] [address] PCP - General Family Medicine 09/02/22 Ras Joy MD [address] [place] [address] PCP - General Family Medicine 05/04/23 documented as of this encounter
--- OUTSIDE RECORDS SUMMARY | 2025-01-23 01:40 | XMS_ITS | Data Portability ---
Author Organization [place] - [facility] [place], ADMIN Address [address] [place] [id number] Assessment Encounter Date Assessment Date Assessment LastModified by Organization Details LastModified Time 04/03/2020 04/03/2020 44 y/o male presents for left knee pain and popping. XR today. XR showed lateral subluxation of the patella and arthritis. 1. Schedule MRI to assess healing process and determine what treatment is needed. RTC after MRI. [email or web address] Not available 04/03/2020 12:17:57 05/03/2020 05/03/2020 44 y/o male presents for left knee MRI results 04/13/20. 1. Pt advised to use a cane when walking. 2. I will refer the pt to Dr. Prasanna Pham for a second opinion. [email or web address] Not available 05/03/2020 09:49:57 Plan of Treatment Reminders Order Date Submit Date Provider Last Modified By Organization Details Last Modified Time Details Appointments None recorded. Lab None recorded. Referral None recorded. Procedures None recorded. Surgeries None recorded. Imaging XR, knee, 3 view - Standing ap and lat please. 2020 021 [email or web address] [facility] (Radiology), [address], [place], [address], 14:41:30 Medication Orders None recorded. Patient TargetsNo targets recorded. Patient Instructions Encounter Date Encounter Id Patient Instructions Last Modified By Organization Details Last Modified Time 04/03/2020 [id number] 1. I independent ly reviewed XR. XR shows lateral subluxation of the patella and arthritis. I, Gita Weber, acting as scribe, for Dr. Sharla Rodriguez, to document his verbalization of the History of Present Illness, Physical Exam, Assessment and Plan. Gita Weber, Scribe 04/03/20, 10:36 am I, Dr. Sharla Rodriguez, hereby attest that I personally reviewed the documentation in the History of Present Illness, Review of Systems, Physical Exam, Assessment and Plan and agree the documentation accurately represents these services and the decisions I made. I also reviewed the documented Review of Systems and the Past, Family, and Social History made changes and/or additions as needed. Dr. Sharla Rodriguez MD. [email or web address] Not available 04/03/2020 11:36:10 05/03/2020 [id number] I, Jennifer Jacob , acting as scribe, for Dr. Sharla Rodriguez, to document his verbalization of the History of Present Illness, Physical Exam, Assessment and Plan. Jennifer Jacob, Chief Scribe 05/03/2020, 849 am I, Dr. Sharla Rodriguez, hereby attest that I personally reviewed the documentation in the History of Present Illness, Review of Systems, Physical Exam, Assessment and Plan and agree the documentation accurately represents these services and the decisions I made. I also reviewed the documented Review of Systems and the Past, Family, and Social History made changes and/or additions as needed. Dr. Sharla Rodriguez MD. [email or web address] Not available 05/03/2020 09:50:02 Reason for Referral None Reported. Results Created Date Observation Date Name Description Value Unit Range Abnormal Flag Note LastModifiedBy Organization Detail LastModifiedTime 04/03/19 21 05/16/2019 MRI, knee, w/o contr ast No observ ation record ed. BARCODE Not Available 2020 09:50:24 04/03/19 21 04/03/2020 knee three views M25.56 2 Proced ure Acknow ledge Date: 2020 09:32 AM EXAM: Three- view left knee. HISTOR Y: Knee pain, weakne ss COMPAR ISABELA: None FINDIN GS: There is no acute fractu re or disloc ation. The patell a is sublux ed latera lly on sunris e view. Tiny left knee osteop hytes are seen. There is no sizeab le knee joint effusi on. Soft tissue s are unrema rkable . IMPRES BERLIN: Minima l left knee osteoa rthrit is. Latera l patell ar sublux ation. DICTAT ED DATE: 1048 DICTAT ED BY: River Lucas M.D. TRANSC RIBED DATE: 1048 TRANSC RIBED BY: PRISCILA SIGNED BY: River Lucas M.D. DT: 2020 10:49 AM Dictat ed By: RIVER LUCAS MD DF: 2020 10:49 AM Signed By: RIVER LUCAS MD Provid er(s): Julissa Jorgensen er: Result Copies To: [facility] Doctor : SHARLA RODRIGUEZ Referr nicole Doctor : Edmond ventura Doctor : Flash rivera Doctor : Other Health care Provid er: [address] (Radiology) [address], [place], [address], 04/04/2020 13:24:42 04/03/19 21 04/03/2020 XR, knee, 3 view No observ ation record ed. [address] (Radiology Dept) [address], [place], [address], 04/04/2020 13:24:43 04/13/19 21 04/13/2020 MRI, lower extre mity joint (s), w/o contr ast M25.56 2 LEFT KNEE PAIN Proced ure Acknow ledge Date: 2020 10:25 AM EXAM: MRI lower extrem ity joint / left knee withou t contra st. HISTOR Y: Left knee pain x1 year. Slippe d. No left knee surger y report ed. TECHNI QUE: Using a local extrem ity coil on a high field [facility] 1.5 Krysta magnet multip lanar multis equenc e magnet resona nce imagin g was perfor med of the left knee withou t intrav enous or intra- articu lar gadoli nium contra st. . COMPAR ISABELA: Three- view plain film examin ation left knee 2020. FINDIN GS: Within the medial compar tment there is abnorm al size and morpho logy body medial menisc us compat ible with tear likely degene rative . There is joint center ed cartil age attenu ation over the more medial weight bearin g aspect of the medial compar tment. No underl kole subcho ndral edema. Produc tive osteop hyte format ion. Within the latera l compar tment the latera l menisc us is intact withou t discre te surfac ing menisc al tear. The latera l compar tment cartil age congru ent . Some subcho ndral remode ling/e bernardo over the latera l weight bearin g aspect of the latera l femora l condyl e. Produc tive osteop hyte format ion. Within the patell ofemor al compar tment the patell a is sublux ed near latera l disloc ated with tilt. Chondr osis over the medial facet the patell a.. Stretc hed and torn medial patell ofemor al ligame nt/med ial patell ar retina culum. . The trochl ear groove cartil age relati vely congru ent. Some produc tive osteop hyte format ion.. Left knee effusi on. Thicke mireille plica. Comple xity with sugges tion of synovi tis. Debris . Some of this may lie loose. . Intact anteri or and house moving supervisor ior crucia te ligame nts. The extens or mechan ism itself remain s intact . Chroni c sprain MCL. Latera l collat eral ligame nt comple x as well as house moving supervisor olater al corner intact . Superf icial circum ferent ial soft tissue edema/ swelli ng.. IMPRES BERLIN: Patell a sublux ed near latera l disloc ated with tilt. Stretc hed and torn medial patell ofemor al ligame nt/med ial patell ar retina culum. Patell ar chondr osis. Left effusi on. Thicke mireille plica. Comple xity with sugges tion of synovi tis. Debris . Some of this may lie loose. Degene rative tear body medial menisc us. Change s of osteoa rthros is, medial compar tment domina nt. Intact crucia te ligame nts. Chroni c sprain MCL. Superf icial circum ferent ial soft tissue edema/ swelli ng. DICTAT ED DATE: 1240 DICTAT ED BY: Sharon Rosales M.D. TRANSC RIBED DATE: 1240 TRANSC RIBED BY: PRISCILA SIGNED BY: Sharon Rosales M.D. DT: 2020 12:41 PM Dictat ed By: SHARON ROSALES MD DF: 2020 12:41 PM Signed By: SHARON ROSALES MD Provid er(s): Julissa salcedo Provid er: Result Copies To: Attend ing Doctor : SHARLA RODRIGUEZ Referr ing Doctor : Edmond ventura Doctor : Flash rivera Doctor : Other Health care Provid er: [facility] (Radiology) [address], [place], [address], 04/25/2020 11:49:01 04/13/19 21 04/13/2020 MRI, knee, w/o contr ast No observ ation record ed. [email or web address] [facility] (Radiology Dept) [address], [place], [address], 04/25/2020 11:48:51 04/13/19 21 04/11/2020 US, doppl er echoc ardio gram, w/ color flow I10 HTN AND SOB Proced ure Acknow ledge Date: 2020 09:00 AM Fernando pearson Echoca rdiogr aphic Report Patieric t Name: DAMARIS ZEPEDA ROSALIARP atient ID: [id number] : 1975 (44y 11m)[facility] Date: 2020 9:23:3 8 AM Gender : Dayne artis #: [id number] Tech: MW Locati on: [place] [facility] Ref.Ph ysicia n: 0126, CORINA ZAPATA EER Height (Cm): 178 BSA: 2.31We ight(K g): 108 Qualit y: GoodOr shashank Physic ana: BENNY ARRIAGA EER Accoun t #: Proced ures: Echoca rdiogr aphic Report : Transt thad pearson echoca rdiogr am with comple te 2D, M-Mode , and Dopple r examin ation. Indica tions: Hypert ension , and Shortn ess of breath . Conclu sions: Normal left ventri cular cavity size. Ejecti on fracti on is visual ly estima ade at 60 %. Tissue Dopple r/Mitr al Dopple r indice s are consis tent with impair ed relaxa tion (Stage I diasto lic dysfun ction) . Normal right ventri cular size. The left atrium is normal in size. The right atrium is normal in size. Not well visual ized. Trivia l mitral regurg itatio n. No hemody namica lly signif icant aortic stenos is by dopple r. There is trivia l tricus pid regurg itatio n. Normal pulmon ic valve appear ance and functi on. Normal perica rdium with no signif icant perica rdial effusi on. Normal aortic root. Normal size and normal respir atory collap se consis tent with normal right atrial pressu re (<5 mmHg). Findin gs: Left Ventri vianey: Normal left ventri cular cavity size. Ejecti on fracti on is visual ly estima ade at 60 %. Tissue Dopple r/Mitr al Dopple r indice s are consis tent with impair ed relaxa tion (Stage I diasto lic dysfun ction) . Right Ventri vianey: Normal right ventri cular size. Left Atrium : The left atrium is normal in size. Right Atrium : The right atrium is normal in size. Atrial Septum : Not well visual ized. Mitral Valve: Trivia l mitral regurg itatio n. Aortic Valve: No hemody namica lly signif icant aortic stenos is by dopple r. Tricus pid Valve: There is trivia l tricus pid regurg itatio n. Pulmon ic Valve: Normal pulmon ic valve appear ance and functi on. Perica rdium: Normal perica rdium with no signif icant perica rdial effusi on. Aorta: Normal aortic root. IVC: Normal size and normal respir atory collap se consis tent with normal right atrial pressu re (<5 mmHg). Measur ements : 2D/M Mode Dopple r Measur ement Value Normal Range Measur ement Value Normal Range IVSd MM 1.9 [ 0.6 - 1.0 ] cm ENEDELIA Vmax 3.8 [ 2.0 - 4.0 ] cm2 IVSs MM 2.5 cm AV Peak Josh 2.0 [ 1.0 - 1.7 ] m/sec IVS % MM 30 percen t AV Peak PG 16.0 [ 2.0 - 9.0 ] mmHg LVIDd MM 3.8 [ 4.2 - 5.8 ] cm LVOT Peak PG 9.0 [ 2.0 - 6.0 ] mmHg LVIDs MM 2.1 [ 2.5 - 4.0 ] cm MV E Peak Josh 1.0 [ 0.6 - 1.3 ] m/sec LVPWd MM 2.2 [ 0.6 - 1.0 ] cm MV A Peak Josh 1.0 [ 1.0 - 1.2 ] m/sec LVPWs MM 2.2 cm MV E/A 1.0 [ 0.8 - 1.5 ] ratio IVS/LV PW MM 0.9 ratio MR Peak Josh 1.9 [ 2.0 - 4.0 ] m/sec AoR Diam MM 3.6 [ 2.6 - 3.4 ] cm TR Peak Josh 1.3 [ 1.0 - 2.8 ] m/sec LA Dimens ion MM 4.3 [ 3.0 - 4.0 ] cm TR Peak PG 7.0 mmHg LA/Ao MM 1.2 ratio RA Pressu re 10.0 mmHg ACS MM 2.1 [ 3.1 - 3.7 ] cm LV EDV MOD 4ch 112.0 [ 69.0 - 185.0 ] ml LV ESV MOD 4ch 39.6 [ 22.0 - 78.0 ] ml LVOT Diam 2.5 [ 2.3 - 2.9 ] cm Electr onical ly Signed By: Caroline Moss MD 04-13 13:35: 18 DESKTOP ADMINISTRATOR DT: 2020 01:36 PM Dictat ed By: CAROLINE MOSS MD DF: 2020 01:36 PM Signed By: CAROLINE MOSS MD [facility] er(s): Julissa [facility] er: Result Copies To: Attend ing Doctor : BENNY ARRIAGA Referr ing Doctor : Edmond ventura Doctor : Flash rivera Doctor : Other Health care Provid er: [email or web address] [facility] (Radiology) [address], [place], [address], 04/13/2020 17:10:41 05/23/19 21 05/23/2020 MRI, knee, w/o contr ast No observ ation record ed. [email or web address] [facility] (Radiology) [address], [place], [address], 05/24/2020 09:06:31 10/20/19 21 10/19/2020 NM, myoca rdial perfu berlin scan No observ ation record ed. [email or web address] [address], [place], [address], 10/22/2020 10:38:31 Result Notes Documentation Provider Name and Address Organization Details Recorded Time Mri, Lower Extremity Joint(s), W/o Contrast : M25.562 LEFT KNEE PAIN Procedure Acknowledge Date: 04/13/2020 10:25 AM EXAM: MRI lower extremity joint / left knee without contrast. HISTORY: Left knee pain x1 year. Slipped. No left knee surgery reported. TECHNIQUE: Using a local extremity coil on a high field strength 1.5 Krysta magnet multiplanar multisequence magnet resonance imaging was performed of the left knee without intravenous or intra-articular gadolinium contrast. . COMPARISON: Three-view plain film examination left knee 04/03/2020. FINDINGS: Within the medial compartment there is abnormal size and morphology body medial meniscus compatible with tear likely degenerative. There is joint centered cartilage attenuation over the more medial weightbearing aspect of the medial compartment. No underlying subchondral edema. Productive osteophyte formation. Within the lateral compartment the lateral meniscus is intact without discrete surfacing meniscal tear. The lateral compartment cartilage congruent . Some subchondral remodeling/edema over the lateral weightbearing aspect of the lateral femoral condyle. Productive osteophyte formation. Within the patellofemoral compartment the patella is subluxed near lateral dislocated with tilt. Chondrosis over the medial facet the patella.. Stretched and torn medial patellofemoral ligament/medial patellar retinaculum.. The trochlear groove cartilage relatively congruent. Some productive osteophyte formation.. Left knee effusion. Thickened plica. Complexity with suggestion of synovitis. Debris. Some of this may lie loose.. Intact anterior and posterior cruciate ligaments. The extensor mechanism itself remains intact. Chronic sprain MCL. Lateral collateral ligament complex as well as posterolateral corner intact. Superficial circumferential soft tissue edema/swelling.. IMPRESSION: Patella subluxed near lateral dislocated with tilt. Stretched and torn medial patellofemoral ligament/medial patellar retinaculum. Patellar chondrosis. Left effusion. Thickened plica. Complexity with suggestion of synovitis. Debris. Some of this may lie loose. Degenerative tear body medial meniscus. Changes of osteoarthrosis, medial compartment dominant. Intact cruciate ligaments. Chronic sprain MCL. Superficial circumferential soft tissue edema/swelling. DICTATED DATE: 04/13/20 124 DICTATED BY: Sharon Rojas M.D. TRANSCRIBED DATE: 04/13/20 124 TRANSCRIBED BY: PRISCILA SIGNED BY: Sharon Rojas M.D. Dictated By: SHARON ROJAS MD DF: 04/13/2020 12:41 PM Signed By: SHARON ROJAS MD Supporting Provider(s): Ordering Provider: Result Copies To: Attending Doctor: SHARLA RODRIGUEZ Referring Doctor: Consulting Doctor: Admitting Doctor: Other Healthcare Provider: CEE Rao [place] [facility] [place] 04/25/2020 11:49:01 Problems Name Problem SNOMED Code Status Onset Date Resolution Date Notes Provider Name and Address Organization Details Recorded Time Hypertensive disorder 45847422 Active 2020 Valentina Collins RT(R), UNRULY RIOS null, [place] [facility] [place] 1 11:01:56 Kidney disease 41988476 Active 2020 Valentina Collins RT(R), UNRULY RIOS null, [place] [facility] [place] 1 11:02:03 Congestive heart failure 01617833 Active 2020 CAROLINE MOSS MD [address] [place] [address], [place], [address], [facility] - [facility] [place] 21:52:07 Atrial fibrillation 18580215 Active 2020 CAROLINE MOSS MD [address] [facility], [place], [address], [address] 21:52:08 Problem Notes None recorded. Procedures Surgical History Date Name Laterality Status Provider Name and Address Organization Details Recorded Time Orthopedic Surgery completed RT Hamzah(R), ROT, DIRECTOR OF PEOPLE [place] [facility] [place] 04/03/2020 11:05:43 Other completed RT Hamzah(R), ROT, DIRECTOR OF PEOPLE [facility] [place] 04/03/2020 11:06:14 Imaging Results None recorded. Procedure Notes None recorded. Medical Equipment None Reported. Allergies Allergen ID Allergen Name Allergen Category Reaction Reaction Severity Criticality Documentation Date Start Date Code Code System Note Provider Name and Address Organization Details Recorded Time 17585 Product containin g penicilli n (product) medicatio n Not available Not available Not available 04/03/2020 16141 8001 SNOMED RT Hamzah(R), BLANCA [employer] null, [address] 10:55:04 [address] tramadol medicatio n Not available Not available Not available 04/03/2020 74736 RxNorm RT Hamzah(R), BLANCA [employer] null, [address] 10:55:10 Medications Name Sig Start Date Stop Date Status Note LastModified by Organization Details LastModified Time carvedilol 25 mg tablet active Not Available Not Available Not Available doxycycline hyclate 100 mg capsule TAKE ONE CAPSULE BY MOUTH TWICE DAILY FOR 10 DAYS FOR INFECTION 11/09 completed Not Available Not Available Not Available azithromyci n 250 mg tablet TAKE 2 TABLETS BY MOUTH TODAY THEN TAKE 1 TABLET ONCE A DAY X 4 MORE DAYS active Not Available Not Available No t Available nifedipine ER 90 mg tablet,exte nded release active Not Available Not Available Not Available hydrocodone 5 mg-acetamin ophen 325 mg tablet TAKE ONE TABLET BY MOUTH TWICE DAILY NEEDED FOR PAIN FOR 5 DAYS active Not Available Not Available No t Available prednisone 20 mg tablet active Not Available Not Available Not Available metoprolol succinate ER 100 mg tablet,exte nded release 24 hr active Not Available Not Available Not Available metolazone 5 mg tablet TAKE 1 TABLET BY MOUTH EVERY OTHER DAY active Not Available Not Available No t Available ondansetron 8 mg disintegrat ing tablet DISSOLVE 1 TABLET ON TONGUE EVERY SIX HOURS NEEDED FOR NAUSEA AND VOMITING active Not Available Not Available No t Available alprazolam 0.5 mg tablet 04/03 completed Not Available Not Available Not Available clonidine HCl 0.2 mg tablet active Not Available Not Available Not Available alprazolam 0.25 mg tablet TAKE ONE TABLET BY MOUTH TWICE DAILY NEEDED FOR ANXIETY FOR 14 DAYS active Not Available Not Available No t Available amitriptyli ne 25 mg tablet TAKE ONE TABLET BY MOUTH ONCE A DAY active Not Available Not Available No t Available nifedipine ER 60 mg tablet,exte nded release 24 hr TAKE 1 TABLET BY MOUTH EVERYDAY AT BEDTIME 04/03 completed Not Available Not Available Not Available furosemide 80 mg tablet TAKE 1 TABLET BY MOUTH TWICE A DAY active Not Available Not Available No t Available nifedipine ER 90 mg tablet,exte nded release 24 hr active Not Available Not Available Not Available doxycycline monohydrate 100 mg capsule TAKE ONE CAPSULE BY MOUTH TWICE DAILY FOR 10 DAYS FOR INFECTION 11/09 completed Not Available Not Available Not Available cephalexin 500 mg capsule TAKE ONE CAPSULE BY MOUTH ONCE A DAY FOR 7 DAYS FOR INFECTION 11/09 completed Not Available Not Available Not Available hydralazine 100 mg tablet active Not Available Not Available Not Available pantoprazol e 40 mg tablet,veda yed release TAKE 1 TABLET BY MOUTH TWICE A DAY active Not Available Not Available No t Available calcitriol 0.5 mcg capsule TAKE 1 CAPSULE BY MOUTH EVERY DAY active Not Available Not Available No t Available dexamethaso ne 4 mg tablet active Not Available Not Available Not Available metoprolol tartrate 50 mg tablet TAKE 1 TABLET BY MOUTH TWICE A DAY active Not Available Not Available No t Available minoxidil 10 mg tablet TAKE 1 TABLET BY MOUTH TWICE A DAY active Not Available Not Available No t Available doxazosin 4 mg tablet active Not Available Not Available No t Available gentamicin 0.1 % topical cream APPLY TO AFFECTED AREA DIRECTED active Not Available Not Available No t Available hydralazine 50 mg tablet active Not Available Not Available Not Available albuterol sulfate HFA 90 mcg/actuati on aerosol inhaler INHALE 1 PUFF BY MOUTH INTO LUNGS EVERY FOUR HOURS NEEDED FOR SHORTNESS OF BREATH & WHEEZING active Not Available Not Available No t Available sodium polystyrene sulfonate 15 gram oral powder active Not Available Not Available Not Available nifedipine ER 60 mg tablet,exte nded release active Not Available Not Available Not Available lisinopril 40 mg tablet active Not Available Not Available Not Available losartan 100 mg tablet active Not Available Not Available Not Available sorbitol 70 % solution TAKE 30MLS BY MOUTH EVERY 4 HOURS NEEDED 04/03 completed Not Available Not Available Not Available oxycodone 5 mg tablet TAKE ONE TABLET BY MOUTH EVERY 8 HOURS NEEDED FOR PAIN MAX 3 TABLETS (15MG) PER DAY active Not Available Not Available No t Available escitalopra m 10 mg tablet TAKE 1 TABLET BY MOUTH EVERY DAY 04/03 completed Not Available Not Available Not Available escitalopra m 20 mg tablet TAKE 1 TABLET BY MOUTH EVERYDAY AT BEDTIME 04/03 completed Not Available Not Available Not Available sildenafil (pulmonary hypertensio n) 20 mg tablet TAKE DIRECTED 04/03 completed Not Available Not Available Not Available ramelteon 8 mg tablet active Not Available Not Available No t Available Symbicort 160 mcg-4.5 mcg/actuati on HFA aerosol inhaler INHALE 2 PUFFS BY MOUTH INTO LUNGS TWICE DAILY active Not Available Not Available No t Available sevelamer carbonate 800 mg tablet TAKE 2 TABLETS BY MOUTH WITH MEALS, AND 1 TABLET WITH SNACKS *8 TABLETS DAILY* 04/03 completed Not Available Not Available Not Available Chantix Starting Month Box 0.5 mg (11)-1 mg (42) tablets in dose pack 11/09 completed Not Available Not Available Not Available lactulose 20 gram/30 mL oral solution TAKE 30MLS BY MOUTH EVERY 4 HOURS NEEDED (TAKE UNTIL STARTING SORBITOL) 04/03 completed Not Available Not Available Not Available Eliquis 5 mg tablet active Not Available Not Available No t Available Velphoro 500 mg chewable tablet CRUSH OR CHEW AND SWALLOW 2 TABLETS 3 TIMES A DAY WITH MEALS active Not Available Not Available No t Available Auryxia 210 mg iron tablet TAKE 3 TABLETS BY MOUTH THREE TIMES A DAY WITH MEALS. SWALLOW WHOLE, DO NOT CHEW OR CRUSH MEDICATIO N active Not Available Not Available No t Available Veltassa 8.4 gram oral powder packet VIGOROUSL Y MIX CONTENTS OF 1 PACKET IN 3 OUNCES OF WATER (IT WILL NOT DISSOLVE) AND DRINK ONCE A DAY WITH FOOD active Not Available Not Available No t Available RenaPlex-D 800 mcg-12.5 mg-2,000 unit tablet TAKE 1 TABLET BY MOUTH EVERY DAY (ON DIALYSIS DAYS, TAKE AFTER DIALYSIS TREATMENT ) active Not Available Not Available No t Available Vitals Date Recorded Body height Body mass index (BMI) Body weight Body temperature Pain severity - 0-10 verbal numeric rating [Score] - Reported Heart rate Systolic And Diastolic Provider Name and Address Organization Details Last Updated DateTime 1 177.8 cm 36.2 kg/m2 151552. 28 g 99.9 [degF] 5 79 /min 193/107 mm[Hg] RT Hamzah(R), UNRULY RIOS [address] 1 11:12:51 Date Recorded Body height Body mass index (BMI) Body weight Heart rate Body temperature Pain severity - 0-10 verbal numeric rating [Score] - Reported Systolic And Diastolic Provider Name and Address Organization Details Last Updated DateTime 1 177.8 cm 35.2 kg/m2 091312. 13 g 93 /min 97.2 [degF] 5 238/120 mm[Hg] RT Hamzah(R), UNRULY RIOS [address] 1 09:29:03 Date Recorded Body height Heart rate Oxygen saturation Oxygen saturation in Arterial blood by Pulse oximetry Systolic And Diastolic Provider Name and Address Organization Details Last Updated DateTime 1 177.8 cm 115 /min 84 % 84 % 138/84 mm[Hg] Emmie Wolfe LPN [address] 1 11:35:03 Social History Question Answer Notes LastModified by Organizat ion Details LastModified Time Tobacco Smoking Status Former Smoker Quit 03/30/20 RT Hamzah(R), UNRULY RIOS [address] 04/03/2020 11:02:50 Auto Related Injury? No [email or web address] Information not available 04/03/2020 What Is Your Level Of Caffeine Consumption? Heavy Information not available 04/03/2020 Which Of Your Hands Is Dominant? Right [email or web address] Information not available 04/03/2020 Live Alone Or With Others? With Others [email or web address] Information not available 04/03/2020 Marital Status Lives With Girlfriend [email or web address] Information not available 04/03/2020 If Injured, Is Litigation Ongoing? No [email or web address] Information not available 04/03/2020 How Many Years Have You Smoked Tobacco? 19 [email or web address] Information not available 04/03/2020 Work Related Injury? No [email or web address] Information not available 04/03/2020 Sex: Unknown Functional Status Question Answer Note LastModified by Organization D etails LastModified Time What is your level of alcohol consumption? None [email or web address] Information not available 04/03/2020 Are you currently employed? No [email or web address] Information not available 04/03/2020 Are you able to care for yourself independently? Yes Information not available 04/03/2020 Mental Status None recorded. Family History Nothing Reported. Medical History Condition Response STROKE N DIABETES N SEIZURES N HAVE YOU BEEN HOSPITALIZED OR SEEN IN [facility] ER IN THE PAST YEAR ? N THYROID DISEASE N HIV / AIDS N ANEURYSM N CANCER N USE OF BLOOD THINNERS N HIGH CHOLESTEROL N BLOOD CLOTS N HEPATITIS / LIVER DISEASE N ASTHMA N PULMONARY DISEASE N HERPES N ANEMIA Y GERD / HEARTBURN / REFLUX Y HYPERTENSION Y CARDIAC ARRHYTHMIA N ANXIETY DISORDER Y PULMONARY EMBOLISM N HEART DISEASE N Past Encounters Encounter ID Performer Location Encounter Start Date Encounter Closed Date Diagnosis/Indication Diagnosis SNOMED-CT Code Diagnosis ICD10 Code Diagnosis IMO Codes Diagnosis Note [id number] SHARLA RODRIGUEZ MD [facility] [address] [place] [address] 04/03/2020 09:32:59 04/03/2020 11:40:57 Pain in left knee 6709843212 99452 M25.562 Subluxatio n of patellofemoral joint 499455343 S83.192A Osteoarthr itis of left knee joint 4696154079 77417 M17.12 [id number] SHARLA RODRIGUEZ MD [facility] [address] [place] [address] 05/03/2020 09:00:19 05/03/2020 09:54:50 Subluxation of patellofemoral joint 484926558 S83.192A Osteoarthr itis of left knee joint 9017203593 87182 M17.12 Synovitis of knee 895894 004 M65.181 [id number] CAROLINE MOSS MD [facility] [address] [facility] [place] [address] 11/09/2020 10:54:45 11/27/2020 22:02:59 Atrial fibrillation 30121093 I48.91 patient had stress test in September which showed no reversible ischemia ejection fraction of 33% Congestive heart failure 35085581 I50.9 ejection fraction of 33% by nuclear medicine study /stress test Hypertensive disorder 38 821552 I10 continue doxazosin and lisinopril Health Concerns Section Related Observation LastModified by Organization Detai ls LastModified Time None Recorded Concern Status LastModified by Organization Details LastModified Time None Recorded Advance Directives Directive None Recorded Payers Insurance Date Sequence Insurance Name Policy Number Policy Ramirez Covered Member ID Ramirez Member ID Guarantor Name 10/24/2020 1 [place] Leopoldo Schaefer [id number] Leopoldo Schaefer 01/07/2021 2 [place] Leopoldo Schaefer [id number] Leopoldo Schaefer 01/07/2021 1 [facility] (MEDICARE REPLACEMENT/A DVANTAGE - HMO) MOD[employer] Leopoldo Schaefer [id number] Leopoldo Schaefer Notes Date Note Type Note Provider Name and Address Organization Details Recorded Time 04/03/2020 text/html 44 y/o male presents for left knee pain and popping. XR today. The patient stepped over a hole a year ago. His reports that his pain has been progressively worsening. He arrives c/o moderate pain in the left knee. He states that the kneecap has been popping out of place over the last week or two. He confirms night pain. He denies numbness and tingling. SHARLA RODRIGUEZ MD [address] [facility], [place], [address], [place] [facility] [place] 04/03/2020 12:18:33 05/03/2020 text/html 44 y/o male presents for left knee MRI results 04/13/20. The pt arrives with c/o moderate pain in left knee, with associated swelling. he reports that he injured his left knee 1 year ago when stepping across a mud hole to get in his vehicle and fell. He reports that his knee twisted sideways when he fell. The pt denies any numbness or tingling. The pt's BP is 238/120 today. He is under the care of a healthcare manager who is aware of the pt's BP. SHARLA RODRIGUEZ MD [address] [place] [address], [phone], [facility] [place] 05/03/2020 11:00:30 11/09/2020 text/html 45-year-old male seen in follow-up CHF and atrial fibrillation patient was recently hospitalized. complains of dyspnea on exertion and fatigue per patient condition has improved since been in the hospital CAROLINE MOSS MD [address] [place] [address], [id number], [facility] [place] 11/27/2020 21:52:29
--- OUTSIDE RECORDS SUMMARY | 2025-01-23 01:40 | XMS_ITS | Data Portability ---
Author Organization [place] - [facility], [facility] [place] Address [address] [place] [address] Assessment Encounter Date Assessment Date Assessment LastModified by Organization Details LastModified Time 10/22/2020 10/22/2020 07/04/20 - Wt 246#, BMI 35.8, BP 193/83 10/22/20 - Attempted to contact pt by phone, No answer, message left and informed pt to call for appt with PCP for routine exam. Sent Pt out educational information on 10 Tips: Be Active in the mail. EDILSON 09/05/20 - New Enrollment into [facility] program. Dx: HTN/BMI 35.8/Tobacco (1PPD) Pt does not have Health Pen[facility]. Pt has active Medicaid. Will develop a Care Plan to assist with the patients Chronic Illness. EDILSON [email or web address] Not available 10/22/2020 15:37:09 11/13/2020 11/13/2020 Care Plan for Leopoldo Fatima : 1975 Admitted to [facility]: 08/2020 Admitting Diagnosis: HTN/BMI 35.8/Tobacco (1PPD) Care Plan Created/Updated: 10/2020 Care Plan Mailed: Our Main Health Goals for You: Hypertension - Blood pressure within normal limits (between 110-120 / 70-80) Elevated BMI - BMI less than 32; maintain BMI less than 36 Individual goals: -Take all medications as prescribed -Follow instructions provided by PCP and care team High Blood Pressure and BMI -Follow heart healthy diet attempting to limit salt intake to 1500mg or less -Read food labels and monitor for sodium and cholesterol amounts (this will also help you maintain healthy BMI -Develop a regular activity routine (10 minutes at a time 3-4 days per week) Interventions (What I will do for you): -Provide education on medications -Provide education on Hypertension, Elevated BMI -Provide support and encouragement on progress toward goals -Monitor progress toward goals -Provide assistance with referrals, orders, and other needs -Maintain contact with patient Face to Face in the office, by phone, by mail, through Primary Care Physician, [facility], or others physicians at our office Outcomes: 07/04/20 - Wt 246#, BMI 35.8, BP 193/83 Evaluation: 11/13/20 - Letter sent to pt As part of the [facility] program, I am required to write a care plan to document we are working toward some healthier lifestyle goals. Of course it is always better with your input. I hope the care plan I have created will help get us started toward a better healthier you. As you think of ideas you would want to try, let me know and I can try to help . EDILSON 10/22/20 - Attempted to contact pt by phone, No answer, message left and informed pt to call for appt with PCP for routine exam. Sent Pt out educational information on 10 Tips: Be Active in the mail. EDILSON 09/05/20 - New Enrollment into [facility] program. Dx: HTN/BMI 35.8/Tobacco (1PPD). Pt does not have Health Penitentiary. Pt has active Medicaid. Will develop a Care Plan to assist with the patients Chronic Illness. EDILSON [email or web address] Not available 11/13/2020 17:08:49 12/26/2020 12/26/2020 Care Plan for Leopoldo Fatima : 1975 Admitted to [facility]: 08/2020 Admitting Diagnosis: HTN/BMI 35.8/Tobacco (1PPD) Care Plan Created/Updated: 10/2020 Care Plan Mailed: Our Main Health Goals for You: Hypertension - Blood pressure within normal limits (between 110-120 / 70-80) Elevated BMI - BMI less than 32; maintain BMI less than 36 Individual goals: -Take all medications as prescribed -Follow instructions provided by PCP and care team High Blood Pressure and BMI -Follow heart healthy diet attempting to limit salt intake to 1500mg or less -Read food labels and monitor for sodium and cholesterol amounts (this will also help you maintain healthy BMI -Develop a regular activity routine (10 minutes at a time 3-4 days per week) Interventions (What I will do for you): -Provide education on medications -Provide education on Hypertension, Elevated BMI -Provide support and encouragement on progress toward goals -Monitor progress toward goals -Provide assistance with referrals, orders, and other needs -Maintain contact with patient Face to Face in the office, by phone, by mail, through Primary Care Physician, [facility], or others physicians at our office Outcomes: 07/04/20 - Wt 246#, BMI 35.8, BP 193/83 Evaluation: 12/26/20 - Cyber Access: No Drug Alerts for this Patient. Pt has Medicare also. Pt is not filling meds through [facility]. Most recent ER 02/20/19. No recent ER visits noted in [facility]. EDILSON 11/13/20 - Letter sent to pt As part of the [facility] program, I am required to write a care plan to document we are working toward some healthier lifestyle goals. Of course it is always better with your input. I hope the care plan I have created will help get us started toward a better healthier you. As you think of ideas you would want to try, let me know and I can try to help . EDILSON 10/22/20 - Attempted to contact pt by phone, No answer, message left and informed pt to call for appt with PCP for routine exam. Sent Pt out educational information on 10 Tips: Be Active in the mail. EDILSON 09/05/20 - New Enrollment into [facility] program. Dx: HTN/BMI 35.8/Tobacco (1PPD). Pt does not have Health Penitentiary. Pt has active Medicaid. Will develop a Care Plan to assist with the patients Chronic Illness. EDILSON [email or web address] Not available 12/26/2020 12:08:28 02/26/2021 02/26/2021 Care Plan for Leopoldo Fatima : 1975 Ad[facility] to [facility]: 08/2020 Admitting Diagnosis: HTN/BMI 35.8/Tobacco (1PPD) Care Plan Created/Updated: 10/2020 Care Plan Mailed: Our Main Health Goals for You: Hypertension - Blood pressure within normal limits (between 110-120 / 70-80) Elevated BMI - BMI less than 32; maintain BMI less than 36 Individual goals: -Take all medications as prescribed -Follow instructions provided by PCP and care team High Blood Pressure and BMI -Follow heart healthy diet attempting to limit salt intake to 1500mg or less -Read food labels and monitor for sodium and cholesterol amounts (this will also help you maintain healthy BMI -Develop a regular activity routine (10 minutes at a time 3-4 days per week) Interventions (What I will do for you): -Provide education on medications -Provide education on Hypertension, Elevated BMI -Provide support and encouragement on progress toward goals -Monitor progress toward goals -Provide assistance with referrals, orders, and other needs -Maintain contact with patient Face to Face in the office, by phone, by mail, through Primary Care Physician, [facility], or others physicians at our office Outcomes: 07/04/20 - Wt 246#, BMI 35.8, BP 193/83 Evaluation: 02/26/21 - Attempted to contact pt by phone, No answer, unable to leave a message. Unable to contact pt for several months. Will discharge pt from the [facility] program at this time. EDILSON 01/14/21 - [facility] - Education BMI 12/26/20 - Cyber Access: No Drug Alerts for this Patient. Pt has Medicare also. Pt is not filling meds through [facility]. Most recent ER 02/20/19. No recent ER visits noted in cyber. EDILSON 11/13/20 - Letter sent to pt As part of the [facility] program, I am required to write a care plan to document we are working toward some healthier lifestyle goals. Of course it is always better with your input. I hope the care plan I have created will help get us started toward a better healthier you. As you think of ideas you would want to try, let me know and I can try to help . EDILSON 10/22/20 - Attempted to contact pt by phone, No answer, message left and informed pt to call for appt with PCP for routine exam. Sent Pt out educational information on 10 Tips: Be Active in the mail. EDILSON 09/05/20 - New Enrollment into [facility]. Dx: HTN/BMI 35.8/Tobacco (1PPD). Pt does not have Health Penitent[facility]. Pt has active Medicaid. Will develop a Care Plan to assist with the patients Chronic Illness. EDILSON [email or web address] Not available 02/26/2021 12:24:08 03/06/2021 03/06/2021 [facility] Discharge form submitted to Medicaid. Unable to contact. Discharge letter mailed to patient. [email or web address] [email or web address] Not available 03/06/2021 14:31:30 Plan of Treatment Reminders Order Date Submit Date Provider Last Modified By Organization Details Last Modified Time Details Appointments None record ed. Lab None record ed. Referral None record ed. Procedures None record ed. Surgeries None record ed. Imaging None record ed. Medication Orders None record ed. Patient TargetsNo targets recorded. Patient InstructionsNo instructions recorded. Reason for Referral None Reported. Problems Name Problem SNOMED Code Status Onset Date Resolution Date Notes Provider Name and Address Organization Details Recorded Time Hypertensive disorder 91164733 Active 2020 [facility] 11:19:12 Kidney disease 44085613 Active 2020 [facility] 11:19:21 Problem Notes None recorded. Procedures Surgical History Date Name Laterality Status Provider Name and Address Organization Details Recorded Time 12/29/19 19 venous catheterization for renal dialysis completed [facility] 06/13/2020 12:07:35 Imaging Results None recorded. Procedure Notes None recorded. Medical Equipment None Reported. Allergies Allergen ID Allergen Name Allergen Category Reaction Reaction Severity Criticality Documentation Date Start Date Code Code System Note Provider Name and Address Organization Details Recorded Time 71053 Product containin g penicilli n (product) medicatio n itching severe Not available 06/13/2020 44035 8001 SNOMED [facility] 11:11:38 24075 tramadol medicatio n itching severe Not available 06/13/2020 25534 RxNorm [facility] 11:11:53 Medications Name Sig Start Date Stop Date Status Note LastModified by Organization Details LastModified Time doxycycline hyclate 100 mg capsule TAKE ONE CAPSULE BY MOUTH TWICE DAILY FOR 10 DAYS FOR INFECTION active Not Available Not Available No t Available azithromyci n 250 mg tablet TAKE 2 TABLETS BY MOUTH TODAY THEN TAKE 1 TABLET ONCE A DAY X 4 MORE DAYS active Not Available Not Available No t Available metoprolol tartrate 100 mg tablet active Not Available Not Available Not Available hydrocodone 5 mg-acetamin ophen 325 mg tablet TAKE ONE TABLET BY MOUTH EVERY SIX HOURS NEEDED FOR MODERATE PAIN FOR UP TO 12 DOSES MAX 4 TABLETS PER DAY 06/13 completed Not Available Not Available Not Available metolazone 5 mg tablet TAKE 1 TABLET BY MOUTH EVERY OTHER DAY active Not Available Not Available No t Available ondansetron 8 mg disintegrat ing tablet DISSOLVE 1 TABLET ON TONGUE EVERY SIX HOURS NEEDED FOR NAUSEA AND VOMITING active Not Available Not Available No t Available alprazolam 0.5 mg tablet 06/13 completed Not Available Not Available Not Available alprazolam 0.25 mg tablet TAKE ONE TABLET BY MOUTH TWICE DAILY NEEDED FOR ANXIETY FOR 14 DAYS active Not Available Not Available No t Available amitriptyli ne 25 mg tablet active Not Available Not Available Not Available nifedipine ER 60 mg tablet,exte nded release 24 hr TAKE 1 TABLET BY MOUTH EVERYDAY AT BEDTIME 06/13 completed Not Available Not Available Not Available furosemide 80 mg tablet TAKE 1 TABLET BY MOUTH TWICE A DAY active Not Available Not Available No t Available nifedipine ER 90 mg tablet,exte nded release 24 hr active Not Available Not Available Not Available doxycycline monohydrate 100 mg capsule TAKE ONE CAPSULE BY MOUTH TWICE DAILY FOR 10 DAYS FOR INFECTION active Not Available Not Available No t Available cephalexin 500 mg capsule TAKE ONE CAPSULE BY MOUTH ONCE A DAY FOR 7 DAYS FOR INFECTION active Not Available Not Available No t Available pantoprazol e 40 mg tablet,veda yed release TAKE 1 TABLET BY MOUTH TWICE A DAY active Not Available Not Available No t Available calcitriol 0.5 mcg capsule TAKE 1 CAPSULE BY MOUTH EVERY DAY 06/13 completed Not Available Not Available Not Available dexamethaso ne 4 mg tablet active Not Available Not Available Not Available metoprolol tartrate 50 mg tablet TAKE 1 TABLET BY MOUTH TWICE A DAY active Not Available Not Available No t Available minoxidil 10 mg tablet TAKE 1 TABLET BY MOUTH TWICE A DAY active Not Available Not Available No t Available doxazosin 4 mg tablet 06/13 completed Not Available Not Available Not Available gentamicin 0.1 % topical cream APPLY TO AFFECTED AREA DIRECTED 06/13 completed Not Available Not Available Not Available hydralazine 50 mg tablet active Not Available Not Available Not Available sodium polystyrene sulfonate 15 gram oral powder 06/13 completed Not Available Not Available Not Available nifedipine ER 60 mg tablet,exte nded release Take 1 tablet every day by oral route. active Not Available Not Available No t Available lisinopril 40 mg tablet Take 1 tablet every day by oral route. active Not Available Not Available No t Available Tylenol Extra Strength 500 mg tablet Take 1 tablet every day by oral route as needed. 2020 active Not Available Not Available Not Avai lable Ventolin HFA 90 mcg/actuati on aerosol inhaler INHALE 1 PUFF BY MOUTH INTO LUNGS EVERY FOUR HOURS NEEDED FOR SHORTNESS OF BREATH & WHEEZING active Not Available Not Available No t Available oxycodone 5 mg tablet TAKE ONE TABLET BY MOUTH EVERY 8 HOURS NEEDED FOR PAIN MAX 3 TABLETS (15MG) PER DAY active Not Available Not Available No t Available escitalopra m 20 mg tablet TAKE 1 TABLET BY MOUTH EVERYDAY AT BEDTIME 06/13 completed Not Available Not Available Not Available sildenafil (pulmonary hypertensio n) 20 mg tablet TAKE DIRECTED active Not Available Not Available No t Available Symbicort 160 mcg-4.5 mcg/actuati on HFA aerosol inhaler INHALE 2 PUFFS BY MOUTH INTO LUNGS TWICE DAILY active Not Available Not Available No t Available Chantix Starting Month Box 0.5 mg (11)-1 mg (42) tablets in dose pack as directed active Not Available Not Available No t [...] Available Not Available No t Available Vitals None Recorded Social History Question Answer Notes LastModified by Organizat ion Details LastModified Time Tobacco Smoking Status Current Every Day Smoker Neda Zapien null, [place] [facility] 06/13/2020 12:07:57 Do You Have An Advance Directive? No Information not available 06/13/2020 What Is Your Level Of Caffeine Consumption? Occasional Information not available 06/13/2020 How Much Tobacco Do You Chew? None Information not available 06/13/2020 Commercial Sex Work No Information not available 06/13/2020 In The 14 Days Before Symptom Onset, Have You Had Close Contact With A Laboratory-confi rmed COVID-19 While That Case Was Ill? No Information not available 06/13/2020 In The 14 Days Before Symptom Onset, Have You Had Close Contact With A Person Who Is Under Investigation For COVID-19 While That Person Was Ill? No Information not available 06/13/2020 Have You Been To An Area Known To Be High Risk For COVID-19? No Information not available 06/13/2020 What Type Of Diet Are You Following? REGULAR Information not available 06/13/2020 Which Illicit Or Recreational Drugs Have You Used? None Information not available 06/13/2020 Education 12 Information no t available 06/13/2020 Are There Any Guns Present In Your Home? Yes Information not available 06/13/2020 Hard Of Hearing Or Deaf In One Or Both Ears? No Information not available 06/13/2020 High Number Of Sexual Partners No Information not available 06/13/2020 International Travel No Information not available 06/13/2020 Legally Blind In One Or Both Eyes? No Information not available 06/13/2020 In The Past 6 Months Have You Fallen Yes Information not available 06/13/2020 Have You Ever Been Tested For Hepatitis C No Information not available 06/13/2020 Have You Had A Blood Transfusion Before 1991? No Information not available 06/13/2020 Have You Had Fpc Dialysis? Yes Information not available 06/13/2020 Have You Ever Used Injectable Drugs, Even Once? No Information not available 06/13/2020 Do You Have Tattoos Or Body Piercings? Yes Information not available 06/13/2020 Have You Had Close Contact With An Individual With Hepatitis C? No Information not available 06/13/2020 Have You Ever Had Sex For Drugs Or Money? No Information not available 06/13/2020 Have You Ever Had Unprotected Sex? No Information not available 06/13/2020 Have You Been Incarcerated For Longer Than 6 Months? No Information not available 06/13/2020 Have You Tested Positive For HIV? No Information not available 06/13/2020 Do You Have A History Of Fist Fighting Or Combat Experience? No Information not available 06/13/2020 Medication List Reconciled Yes Information not available 06/13/2020 What Number (0-10) Best Describes How, During The Past Week, Has Interfered With Your General Activity? 7 Information not available 06/13/2020 What Number (0-10) Best Describes How, During The Past Week, Pain Has Interfered With Your Enjoyment In The Past Week 7 Information not available 06/13/2020 What Number (0-10) Best Describes Your Pain On Average In The Past Week 7 Information not available 06/13/2020 Total PEG Score 21 Informati on not available 06/13/2020 Sexual Orientation Straight Or Heterosexual Information not available 06/13/2020 Gender Identity Male Informati on not available 06/13/2020 Do You Feel Safe Yes Informat ion not available 06/13/2020 Marital Status Domestic Partner Information not available 06/13/2020 What Was The Date Of Your Most Recent Tobacco Screening? 07/04/2020 Information not available 07/04/2020 Mother With HIV? No Informat ion not available 06/13/2020 Seat Belts Used Routinely No Information not available 06/13/2020 Sexual Partner Has HIV? No Information not available 06/13/2020 Sexual Partner Uses IV Drugs? No Information not available 06/13/2020 Smoke Alarm In Home No Information not available 06/13/2020 At What Age Did You Start Smoking Tobacco? 14 Information not available 06/13/2020 How Much Tobacco Do You Smoke? 1 PPD Hasn't Smoked For The Last 4 Days (07-04-2020 ) Information not available 07/04/2020 General Stress Level High Information not available 06/13/2020 Do You Use Sunscreen Routinely? No Information not available 06/13/2020 How Many Years Have You Smoked Tobacco? 31 Information not available 06/13/2020 Have You Used IV Drugs? No Information not available 06/13/2020 Sex: Male Functional Status Question Answer Note LastModified by Organizat ion Details LastModified Time What is your level of alcohol consumption? None Information not available 06/13/2020 Do you or have you ever used smokeless tobacco? Never used smokeless tobacco Information not available 06/13/2020 Are you able to walk independently without assistance or assistive devices? YESWOREST Information not available 06/13/2020 What is your occupation? Disable Information not available 06/13/2020 Do you or have you ever used e-cigarettes or vape? Never used electronic cigarettes Information not available 06/13/2020 What is your exercise level? None Information not available 06/13/2020 Mental Status None recorded. Family History Nothing Reported Notes:Pt was adopted Medical History Condition Response Other N Gout N Kidney Stones N Blood Diseases N Hyperthyroidism N Blood Transfusion N COPD N Depression N Incontinence N Edema N Endocrine Disorders N Anxiety Disorder N Muscle, Joint, or Bone Problems Y Obesity Y Vision or Eye Problems N Arthritis N Auditory Hallucinations N Infertility N Cancer N Stroke N Varicosities N Headaches N Fibromyalgia N Kidney Disease Y Abnormal Bleeding N Reproductive System Problems N Ear or Hearing Problems N Hospitalizations N Learning Disorder N Skin Problems N Eating Disorder N MRSA exposure N Urinary Problems N Constipation N Brain Injury N Visual Hallucinations N AIDS/HIV N Tuberculosis N Back Problems N Asthma N GERD/Reflux Y Hepatitis N Pulmonary Embolism N Chronic Ear Infections N Chicken Pox Y Autism Spectrum Disorder (ASD) N Thrombophilias N Thyroid Disease N Breast Cancer N Lung Disease N Hypothyroidism N Defects or Inherited Disease N Developmental or Behavioral Disorders N Breast Problem N Difficulty Swallowing N Anesthesia Complications N Deep Vein Thrombosis N Meniere's disease N Hearing Loss N Head Injury/Concussion N Congenital Anomalies N Abnormal Pap Smear N Endometriosis N Bladder or Kidney Problems N High Cholesterol N Liver Disease N Nervous System Disorder N Psychiatric/Mental Health Condition N Schizophrenia N Allergies/Hayfever N Parkinson's Disease N GI Problems N ADD/ADHD N Anemia N Colon Polyps N Heart Attack (RI) N Ovarian Cancer N Diabetes N Bedwetting N Seizures/Epilepsy N Amnesia N Congestive Heart Failure (CHF) N Eczema N Abuse/Domestic Violence N Diverticulitis N Dementia N Cardiovascular N Tourette Syndrome N Pre-Eclampsia N Hypertension Y Osteoporosis N Past Encounters Encounter ID Performer Location Encounter Start Date Encounter Closed Date Diagnosis/Indication Diagnosis SNOMED-CT Code Diagnosis ICD10 Code Diagnosis IMO Codes Diagnosis Note [id number] Leopoldo Mejia MD [address] [address] 06/13/2020 10:58:57 06/13/2020 12:04:29 Cigarette smoker 27753671 F17.210 Hypertensive disorder 38 594873 I10 Kidney disease 16701935 N08 creatine 10.28 creat adolfo fatima lab call pt on dialysis Closed tra umatic dislocation shoulder joint, posterior 405845276 S43.025A [id number] Leopoldo Mejia MD [address] [address] 06/18/2020 12:43:52 06/18/2020 13:56:00 Posterior dislocation of shoulder joint 769650292 S43.025A [id number] Leopoldo Mejia MD [address] [address] 07/04/2020 11:02:49 07/04/2020 15:34:08 End stage renal failure on dialysis 504585030 N18.6 Previous labs: Chronic anemia of renal disease. BUN/Cr = 52/10.28, on hemodialys is. Lipids good. Thyroid, A1C good. Cigarette smoker 4490537 7 F17.210 Enouraged to quit smoking. Acute bronchitis 6020727 2 J20.9 Rapid covid swab was negative. Course of antibotics . Fluids and Rest. Follow up if not improving. Pain of le ft shoulder joint [id number] 4260348 M25.512 Tylenol for pain Following with ortho. [id number] Joanna Man[facility] [address] [place] [id number] 09/05/2020 14:44:52 09/05/2020 15:23:29 [id number] Joanna Manjarrez [facility] [address] [place] [id number] 10/22/2020 09:23:40 10/22/2020 15:37:25 [id number] Joanna Manjarrez [facility] [address] [place] [id number] 11/13/2020 17:02:08 11/13/2020 17:18:39 [id number] Joanna Manjarrez [facility] [address] [place] [id number] 12/26/2020 12:04:58 12/26/2020 12:09:51 [id number] Joanna Manjarrez [facility] [address] [place] [id number] 02/26/2021 12:20:50 02/26/2021 12:46:34 [id number] Amanda Magdaleno [facility] [address] [place] [id number] 03/06/2021 14:21:48 03/06/2021 14:32:48 Health Concerns Section Related Observation LastModified by Organization Detai ls LastModified Time None Recorded Concern Status LastModified by Organization Details LastModified Time None Recorded Advance Directives Directive N: Payers Insurance Date Sequence Insurance Name Policy Number Policy Ramirez Covered Member ID Ramirez Member ID Guarantor Name 03/06/2021 2 [place] Leopoldo Fatima [id number] Leopoldo Fatima 03/06/2021 [facility] [place] - [id number] (MEDICARE) Leopoldo Fatima [id number] Leopoldo Fatima 03/06/2021 1 [place] Leopoldo Fatima [id number] Leopoldo Fatima
--- OUTSIDE RECORDS SUMMARY | 2025-01-23 01:40 | XMS_ITS | Encounter Summary ---
Author Organization [facility] Address 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 Topic: Reschedule/Cancel Appointment/Late Arrival >> Sep 16, 2024 9:03 AM Cleopatra Hall wrote: Caller is requesting to reschedule/cancel a hospital follow up. Caller Name: [place]ion, significant other, on [facility] Callback Number: Telephone Information: Call Notes: patient was taken to hospital in [place] this morning. Is patient requesting to schedule? No documented in this encounter Plan of Treatment Not on file documented as of this encounter Visit Diagnoses Not on filedocumented in this encounter Care Teams Seed Tester Relationship Specialty Start Date End Date Ras Joy MD [address] [facility] [address] [place] [id number] PCP - General Family Practice 03/04/23 documented as of this encounter
[2025-01-23] MEDS: dilTIAZem 5 mg/mL SDV 5 mL 20 MG IVP (01:41)
[2025-01-23 01:45] LABS: Hematocrit 53.4 % (37-53); Hemoglobin 17.30 g/dL (11.27-16.99); Mean Corpuscular HGB Conc 32.4 g/dL (30-55); Mean Corpuscular Hemoglobin 32.2 pg (27-33); Mean Corpuscular Volume 99.4 fl (82-101); Nucleated Red Blood Cells % 0 %; Platelet Count 259 10^3/cmm (157-399); Red Blood Count 5.37 10^6/uL (3.85-5.65); White Blood Count 9.01 10^3/uL (3.29-11.43)
[2025-01-23] MEDS: DILTIAZEM HCL/D5W 125 MG/125 ML BAG IV (01:50)
[2025-01-23 02:15] LABS: Alanine Aminotransferase 9 U/L (0-41); Albumin Level 4.6 g/dL (3.5-5.2); Alkaline Phosphatase 310 U/L (40-130); Aspartate Amino Transferase 14 U/L (0-40); Calcium 10.2 mg/dL (8.5-10.5); Carbon Dioxide 21 mmol/L (22-29); Chloride 87 mmol/L (98-107); Creatinine Clr Calc Pharmacy 6.8057; Globulin 3.2 g/dL (1.3-4.6); Glucose 87 mg/dL (65-115); Magnesium 2.4 mg/dL (1.7-2.3); Osmolality Calculated 301 mOsm/kg (285-295); Sodium 132 mmol/L (136-145); Total Protein 7.8 g/dL (6.6-8.7)
--- NOTE | 2025-01-23 02:15 | ED_ITS ---
Documented by User: Wil Vela DO 01/23/25 02:52 HPI - Arrhythmia/Palpitations 2 General: Chief Complaint: Arrhythmia/Palpitations Stated Complaint: fast hr Time Seen by Provider: 01/23/25 01:25 History of Present Illness: Patient is a 59-year-old male with end-stage renal disease on hemodialysis who presents to the emergency department with right arm swelling and atrial fibrillation. Per history, the patient's noticed tonight that his right arm was swollen, commenting that he looked like Jake. Upon evaluation, he was found to be in atrial fibrillation. The patient reports chronic shortness of breath, requiring 5 liters of oxygen at baseline. He also reports a cough for the last couple of nights, productive of white sputum. The patient denies fever. His last dialysis session was on Thursday (2 days ago) without reported complications. The patient states he has a fistula in his right arm that has not yet been used for dialysis. The patient reports the swollen arm is a little bit tender but not bad. He denies being on blood thinners. The patient reports chronic wheezing. Related Data Home Medications ?Medication ?Instructions ?Recorded ?Confirmed trazodone 150 mg tablet 150 mg PO BEDTIME 01/17/24 1 ciprofloxacin HCl 250 mg tablet 250 mg PO BID 01/23/25 01/23/25 Previous Rx's ?Medication ?Instructions ?Recorded furosemide 80 mg tablet 80 mg PO BID #60 tabs metoprolol tartrate 50 mg tablet 50 mg PO BID@0900,210 0 #60 tabs 10/17/24 Allergies Allergy/AdvReac Type Severity Reaction Status Date / Time lisinopril Allergy swelling Verified 03/15/24 22:51 Penicillins Allergy ALGY-Hives Verified 03/15/24 22:51 tramadol Allergy ALGY-Hives Verified 03/15/24 22:51 PFSH ED 2 PFSH: Medical History Diastolic CHF Atrial fibrillation with RVR End stage kidney disease Uncontrolled hypertension Hypoglycemia Atrial fibrillation with RVR COPD exacerbation Pulmonary edema Non-compliance with renal dialysis End stage renal disease Anxiety and depression Obstructive sleep apnea Allergic dermatitis ESRD (end stage renal disease) Pleural effusion Dialysis patient Hypertensive emergency Atrial fibrillation/flutter Chest pain Elevated troponin Resistant hypertension Paroxysmal atrial fibrillation with RVR End stage chronic kidney disease Anemia Sebaceous cyst GERD (gastroesophageal reflux disease) Insomnia COPD (chronic obstructive pulmonary disease) Reports he is on 4 L of oxygen at home Hypoxia Anxiety and depression Lower respiratory tract infection Encounter to establish care Vitamin D deficiency Hypertension CRF (chronic renal failure) Surgical History S/P hemodialysis catheter insertion H/O hand surgery right hand with hardware H/O circumcision Presence of peritoneal dialysis catheter S/P dialysis catheter insertion (12/12/19) Removed on 04/04/2020 Family History Other Adopted Denies family history of Anesthesia complication Bleeding disorder Social History Smoking and tobacco/nicotine status: current every day tobacco/nicotine user (1ppd X26 years) cigarettes [ Other cigarette details: On and off quitting and restarting] Alcohol intake: never Substance/Drug Use: never Household members: significant other Marital status: Single Current occupational status: disabled Physical Exam 2 Const: GENERAL APPEARANCE: cooperative and ill appearing HENMT: COMMON NORMALS: normocephalic, atraumatic and Normal external nose present HEAD & SCALP: normocephalic and atraumatic FACE & SINUS: normal facial exam and face symmetric NOSE: Normal external nose present Eye: COMMON NORMALS: Equal, round and reactive pupils present and EOMs intact bilaterally PUPIL: Yes Equal, round and reactive pupils present Neck/C-Spine: GENERAL: Yes trachea midline Chest: CHEST: Yes Symmetrical chest wall rise Resp: EFFORT & INSPECTION: Yes tachypneic AUSCULTATION: rales and diminished lung sounds Cardio: RATE: tachycardic RHYTHM: abnormal rhythm irregularly irregular GI: COMMON NORMALS: Normal to inspection, nondistended, normoactive bowel sounds present Extremity: NARRATIVE EXTREMITY EXAM: Examination right upper extremity reveals some mild swelling compared to the left. There is redness present. It is not overly warm. This is a site of his fistula which has not been used. Neuro: MAXIM COMA SCALE: document GCS findings Allen coma scale eye opening: Spontaneous Maxim coma scale verbal response: Orientated Maxim coma scale motor response: Obey commands Allen coma scale total score: 15 S ENSORY EXAM: Yes extremities (intact) Psych: COMMON NORMALS: speech normal SPEECH: Yes normal speech Course 2 Vital Signs: Vital signs: Vital Signs Temperature 97.8 F 01/24/25 23:32 Pulse Rate 102 H 01/25/25 07:30 Respiratory Rate 20 H 01/25/25 03:44 Blood Pressure 127/84 01/25/25 07:30 Pulse Oximetry 90 01/25/25 03:33 Oxygen Delivery Me thod Nasal Cannula 01/24/25 23:32 Oxygen Flow Rate 2 01/24/25 14:37 MDM - Arrhythmia/Palpitations Medical Decision Making Patient is significantly short of breath. He is however maintaining good saturations on his home 5 L. He came in quite tachycardic. Placed on diltiazem drip. Heart rate is in the 80s now on 10 mg diltiazem. There is some confusion, as he has tall peaked T waves on his EKG and on the monitor, and sometimes the monitor counts these as another QRS complex doubling his rate. Hemoglobin is 17. White blood cell count is 9. Potassium is 7.8 which is concerning. BUN is 89 creatinine is 13.3. Magnesium 2.4. Phosphorus 6.4. The patient is given Kayexalate, insulin/dextrose, sodium bicarbonate, and calcium gluconate. Spoke with nephrology. Requests repeat potassium 30 minutes after the above. The patient will go to the ICU. Hospitalist has accepted, and will see the patient in the ER. Lab Data 01/25/25 04:47 01/25/25 04:47 Radiology Impressions Chest X-Ray 01/23/25 01:37 IMPRESSION: No identified acute cardiopulmonary process. Unchanged cardiomegaly. Abdomen Ultrasound 01/23/25 10:01 Impression: 1. No cholelithiasis. 2. Cirrhotic liver. No mass identified. 3. Severe chronic medical renal disease. 4. Advanced atrophy RIGHT kidney. Diffuse cortical thinning LEFT kidney. Upper Extremity CTA 01/23/25 14:37 IMPRESSION: 1. The distal right subclavian vein and right brachiocephalic vein do not enhance at the level of the central venous catheter, consistent with occlusion. Extensive subcutaneous and deep collateral vessels noted in the right chest wall and right arm. 2. Moderate swelling and subcutaneous edema is noted throughout right upper extremity, with most marked subcutaneous edema dorsally in the forearm. Findings are compatible with cellulitis and/or venous congestion. 3. Reduced enhancement of the distal forearm arteries with absent enhancement of hand arteries. The finding may relate to a delayed contrast bolus, but distal arterial occlusion remains a possibility. If there is clinical concern for ischemia to the hand, sonographic assessment of the distal arteries is recommended. 4. 4 cm right parietal hypodensity representing subacute or chronic infarct. 5. Findings were discussed with ISA CHEUNG at 01/23/2025 6:[address] 01/24/25 03:00 IMPRESSION: 1. White matter microangiopathic chronic ischemia, slightly advanced for age. No CT evidence of acute brain injury. 2. 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 3. Bilateral mastoiditis. Laboratory Results WBC 9.01 10^3/uL (3.29-11.43) 01/23/25 01:30 RBC 5.37 10^6/uL (3.85-5.65) 01/23/25 01:30 Hgb 17.30 g/dL (11.27-16.99) H 01/23/25 01:30 Hct 53.4 % (37-53) H 01/23/25 01:30 MCV 99.4 fl (82-101) 01/23/25 01:30 MCH 32.2 pg (27-33) 01/23/25 01:30 MCHC 32.4 g/dL (30-55) 01/23/25 01:30 RDW 14.4 % (12.1-15.1) 01/23/25 01:30 Plt Count 259 10^3/cmm (157-399) 01/23/25 01:30 MPV 9.6 fL (7.4-10.4) 01/23/25 01:30 Neut % (Auto) 78.8 % 01/23/25 01:30 Lymph % (Auto) 7.8 % 01/23/25 01:30 [place] % (Auto) 11.7 % 01/23/25 01:30 Eos % (Auto) 0.9 % 01/23/25 01:30 Baso % (Auto) 0.6 % 01/23/25 01:30 Neut # (Auto) 7.11 10^3/uL (1.8-7.7) 01/23/25 01:30 Lymph # (Auto) 0.7 10^3/uL (0.8-4.8) L 01/23/25 01:30 [place] # (Auto) 1.1 10^3/uL (0.2-0.9) H 01/23/25 01:30 Eos # (Auto) 0.1 10^3/uL (0.0-0.8) 01/23/25 01:30 Baso # (Auto) 0.1 10^3/uL (0.0-0.1) 01/23/25 01:30 Nucleated RBC % (auto) 0 % 01/23/25 01:30 Nucleated RBCs # 0.0 /100WBC 01/23/25 01:30 Sodium 132 mmol/L (136-145) L 01/23/25 01:30 Potassium 7.8 mmol/L (3.5-5.1) H* 01/23/25 01:30 Chloride 87 mmol/L (98-107) L 01/23/25 01:30 Carbon Dioxide 21 mmol/L (22-29) L 01/23/25 01:30 Anion Gap 31.8 (5-19) H 01/23/25 01:30 BUN 89 mg/dL (6-20) H* 01/23/25 01:30 Creatinine 13.3 mg/dL (0.7-1.2) H* 01/23/25 01:30 GFR Calculation 4.0 mL/min (90-130) L 01/23/25 01:30 Glucose 87 mg/dL (65-115) 01/23/25 01:30 POC Glucose 100 mg/dL (70-110) 01/23/25 02:37 Calculated Osmolality 301 mOsm/kg (285-295) H 01/23/25 01:30 Calcium 10.2 mg/dL (8.5-10.5) 01/23/25 01:30 Phosphorus 6.4 mg/dL (2.5-4.5) H 01/23/25 01:30 Magnesium 2.4 mg/dL (1.7-2.3) H 01/23/25 01:30 Total Bilirubin 0.6 mg/dL (0.15-1.2) 01/23/25 01:30 AST 14 U/L (0-40) 01/23/25 01:30 ALT 9 U/L (0-41) 01/23/25 01:30 Alkaline Phosphatase 310 U/L (40-130) H 01/23/25 01:30 Troponin T Baseline 119 ng/L (0-15) H* 01/23/25 01:30 NT-Pro-B Natriuret Pep 13194 pg/mL (0-125) H 01/23/25 01:30 Total Protein 7.8 g/dL (6.6-8.7) 01/23/25 01:30 Albumin 4.6 g/dL (3.5-5.2) 01/23/25 01:30 Globulin 3.2 g/dL (1.3-4.6) 01/23/25 01:30 All radiology interpretation(s) finalized by discharge Critical Care Time 2 Critical Care Time: Critical Care Time: Yes Total Critical Care Time: 40 Attestation: This case had a high probability of a clinically significant, sudden, or life threatening deterioration of this patient's condition which required my full and direct attention, intervention and personal management. Time is independent of any procedures performed. Discharge Plan Discharge Patient Disposition: Admitted As Inpatient Admit Provider: Pau Koehler Clinical Impression: End stage renal disease on dialysis, Hyperkalemia, Atrial fibrillation with rapid ventricular response Condition: Stable Coding Level of Care Code ED Environmental Control Administrator for Chg Fwd Documented by User: Pau Koehler MD 01/25/25 07:55 HPI - Arrhythmia/Palpitations 2 General: Chief Complaint: Arrhythmia/Palpitations Stated Complaint: fast hr Time Seen by Provider: 01/23/25 01:25 Related Data Home Medications ?Medication ?Instructions ?Recorded ?Confirmed trazodone 150 mg tablet 150 mg PO BEDTIME 01/17/24 1 ciprofloxacin HCl 250 mg tablet 250 mg PO BID 01/23/25 01/23/25 Previous Rx's ?Medication ?Instructions ?Recorded furosemide 80 mg tablet 80 mg PO BID #60 tabs metoprolol tartrate 50 mg tablet 50 mg PO BID@0900,210 0 #60 tabs 10/17/24 Allergies Allergy/AdvReac Type Severity Reaction Status Date / Time lisinopril Allergy swelling Verified 03/15/24 22:51 Penicillins Allergy ALGY-Hives Verified 03/15/24 22:51 tramadol Allergy ALGY-Hives Verified 03/15/24 22:51 PFSH ED 2 PFSH: Medical History Diastolic CHF Atrial fibrillation with RVR End stage kidney disease Uncontrolled hypertension Hypoglycemia Atrial fibrillation with RVR COPD exacerbation Pulmonary edema Non-compliance with renal dialysis End stage renal disease Anxiety and depression Obstructive sleep apnea Allergic dermatitis ESRD (end stage renal disease) Pleural effusion Dialysis patient Hypertensive emergency Atrial fibrillation/flutter Chest pain Elevated troponin Resistant hypertension Paroxysmal atrial fibrillation with RVR End stage chronic kidney disease Anemia Sebaceous cyst GERD (gastroesophageal reflux disease) Insomnia COPD (chronic obstructive pulmonary disease) Reports he is on 4 L of oxygen at home Hypoxia Anxiety and depression Lower respiratory tract infection Encounter to establish care Vitamin D deficiency Hypertension CRF (chronic renal failure) Surgical History S/P hemodialysis catheter insertion H/O hand surgery right hand with hardware H/O circumcision Presence of peritoneal dialysis catheter S/P dialysis catheter insertion (12/12/19) Removed on 04/04/2020 Family History Other Adopted Denies family history of Anesthesia complication Bleeding disorder Social History Smoking and tobacco/nicotine status: current every day tobacco/nicotine user (1ppd X26 years) cigarettes [ Other cigarette details: On and off quitting and restarting] Alcohol intake: never Substance/Drug Use: never Household members: significant other Marital status: Single Current occupational status: disabled Physical Exam 2 Neuro: MAXIM COMA SCALE: document GCS findings Maxim coma scale total score: 15 Course 2 Vital Signs: Vital signs: Vital Signs Temperature 97.8 F 01/24/25 23:32 Pulse Rate 102 H 01/25/25 07:30 Respiratory Rate 20 H 01/25/25 03:44 Blood Pressure 127/84 01/25/25 07:30 Pulse Oximetry 90 01/25/25 03:33 Oxygen Delivery Me thod Nasal Cannula 01/24/25 23:32 Oxygen Flow Rate 2 01/24/25 14:37 MDM - Arrhythmia/Palpitations Lab Data 01/25/25 04:47 01/25/25 04:47 Radiology Impressions Chest X-Ray 01/23/25 01:37 IMPRESSION: No identified acute cardiopulmonary process. Unchanged cardiomegaly. Abdomen Ultrasound 01/23/25 10:01 Impression: 1. No cholelithiasis. 2. Cirrhotic liver. No mass identified. 3. Severe chronic medical renal disease. 4. Advanced atrophy RIGHT kidney. Diffuse cortical thinning LEFT kidney. Upper Extremity CTA 01/23/25 14:37 IMPRESSION: 1. The distal right subclavian vein and right brachiocephalic vein do not enhance at the level of the central venous catheter, consistent with occlusion. Extensive subcutaneous and deep collateral vessels noted in the right chest wall and right arm. 2. Moderate swelling and subcutaneous edema is noted throughout right upper extremity, with most marked subcutaneous edema dorsally in the forearm. Findings are compatible with cellulitis and/or venous congestion. 3. Reduced enhancement of the distal forearm arteries with absent enhancement of hand arteries. The finding may relate to a delayed contrast bolus, but distal arterial occlusion remains a possibility. If there is clinical concern for ischemia to the hand, sonographic assessment of the distal arteries is recommended. 4. 4 cm right parietal hypodensity representing subacute or chronic infarct. 5. Findings were discussed with ISA CHEUNG at 01/23/2025 6:[address] 01/24/25 03:00 IMPRESSION: 1. White matter microangiopathic chronic ischemia, slightly advanced for age. No CT evidence of acute brain injury. 2. 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 3. Bilateral mastoiditis. Laboratory Results WBC 9.01 10^3/uL (3.29-11.43) 01/23/25 01:30 RBC 5.37 10^6/uL (3.85-5.65) 01/23/25 01:30 Hgb 17.30 g/dL (11.27-16.99) H 01/23/25 01:30 Hct 53.4 % (37-53) H 01/23/25 01:30 MCV 99.4 fl (82-101) 01/23/25 01:30 MCH 32.2 pg (27-33) 01/23/25 01:30 MCHC 32.4 g/dL (30-55) 01/23/25 01:30 RDW 14.4 % (12.1-15.1) 01/23/25 01:30 Plt Count 259 10^3/cmm (157-399) 01/23/25 01:30 MPV 9.6 fL (7.4-10.4) 01/23/25 01:30 Neut % (Auto) 78.8 % 01/23/25 01:30 Lymph % (Auto) 7.8 % 01/23/25 01:30 [place] % (Auto) 11.7 % 01/23/25 01:30 Eos % (Auto) 0.9 % 01/23/25 01:30 Baso % (Auto) 0.6 % 01/23/25 01:30 Neut # (Auto) 7.11 10^3/uL (1.8-7.7) 01/23/25 01:30 Lymph # (Auto) 0.7 10^3/uL (0.8-4.8) L 01/23/25 01:30 [place] # (Auto) 1.1 10^3/uL (0.2-0.9) H 01/23/25 01:30 Eos # (Auto) 0.1 10^3/uL (0.0-0.8) 01/23/25 01:30 Baso # (Auto) 0.1 10^3/uL (0.0-0.1) 01/23/25 01:30 Nucleated RBC % (auto) 0 % 01/23/25 01:30 Nucleated RBCs # 0.0 /100WBC 01/23/25 01:30 Sodium 132 mmol/L (136-145) L 01/23/25 01:30 Potassium 7.8 mmol/L (3.5-5.1) H* 01/23/25 01:30 Chloride 87 mmol/L (98-107) L 01/23/25 01:30 Carbon Dioxide 21 mmol/L (22-29) L 01/23/25 01:30 Anion Gap 31.8 (5-19) H 01/23/25 01:30 BUN 89 mg/dL (6-20) H* 01/23/25 01:30 Creatinine 13.3 mg/dL (0.7-1.2) H* 01/23/25 01:30 GFR Calculation 4.0 mL/min (90-130) L 01/23/25 01:30 Glucose 87 mg/dL (65-115) 01/23/25 01:30 POC Glucose 100 mg/dL (70-110) 01/23/25 02:37 Calculated Osmolality 301 mOsm/kg (285-295) H 01/23/25 01:30 Calcium 10.2 mg/dL (8.5-10.5) 01/23/25 01:30 Phosphorus 6.4 mg/dL (2.5-4.5) H 01/23/25 01:30 Magnesium 2.4 mg/dL (1.7-2.3) H 01/23/25 01:30 Total Bilirubin 0.6 mg/dL (0.15-1.2) 01/23/25 01:30 AST 14 U/L (0-40) 01/23/25 01:30 ALT 9 U/L (0-41) 01/23/25 01:30 Alkaline Phosphatase 310 U/L (40-130) H 01/23/25 01:30 Troponin T Baseline 119 ng/L (0-15) H* 01/23/25 01:30 NT-Pro-B Natriuret Pep 42970 pg/mL (0-125) H 01/23/25 01:30 Total Protein 7.8 g/dL (6.6-8.7) 01/23/25 01:30 Albumin 4.6 g/dL (3.5-5.2) 01/23/25 01:30 Globulin 3.2 g/dL (1.3-4.6) 01/23/25 01:30 Discharge Plan Discharge Patient Disposition: Admitted As Inpatient Admit Provider: Pau Koehler Clinical Impression: End stage renal disease on dialysis, Hyperkalemia, Atrial fibrillation with rapid ventricular response Condition: Stable Coding Level of Care Code ED Environmental Control Administrator for [place]
[2025-01-23 02:16] LABS: Anion Gap 31.8 (5-19)
[2025-01-23 02:17] LABS: Blood Urea Nitrogen 89 mg/dL (6-20); Potassium 7.8 mmol/L (3.5-5.1); Troponin(5th) Baseline 119 ng/L (0-15)
[2025-01-23 02:37] LABS: NT Pro B Type Natriuretic Pept 62859 pg/mL (0-125)
[2025-01-23] MEDS: calcium gluconate 0.1 gm/mL 10% SDV 10mL 1 GM IVP (02:42)
--- NOTE | 2025-01-23 02:43 | P.HP_ITS ---
Providers/Chief Complaint 2 Admitting Physician: LEIGHTON KOEHLER DO --patient admitted after 12 midnight Primary Care Provider: Ras Joy Chief Complaint: fast hr History of Present Illness Leopoldo Schaefer is a 49 year old male with medical history significant for end-stage renal disease on chronic hemodialysis. Patient presented to the emergency room because of complaints of swollen right arm with redness at the site of fistula placement. Patient is status post fistula placed 1 month ago and had not used it. This site looks cellulitic and very hard to palpating hand. Aside from this swollen painful erythematous right arm, patient had been having palpitation with chest pains. This too add to a visit to the emergency room Patient has last dialysis is scheduled day on Thursday which was only 2 days ago. Dialysis days are Thursday. Patient woke up upon presentation to the emergency room should a potassium of 7.8 with EKG changes with peaked T wave abdomen picked up as an extra heartbeat making the heart look like it is racing in the 130s when the actual heart rate is 65. Patient had received calcium gluconate and had received D10 W with 10 units of insulin, sodium bicarb all to find a way to bring down the potassium and also using calcium gluconate to protect the heart membrane. Nephrology on-call has been contacted by Dr. Vela in the emergency room for emergent hemodialysis this morning. I have seen and evaluated patient at this time patient denies any complaints verbalizes much better now than he was when he came in. Patient verbalized small chest pain reluctant to ride home about. Patient relates that the chest pain comes off and on. Patient is in A-fib and Cardizem drip has been ordered and infusing. Will have patient be admitted to ICU. I have given patient a dose of antibiotics with Zyvox to cover gram-positive's such as strep and staph MRSA Review of Systems 2 Narrative: System review upon 10 organ review significant for cardiovascular and renal system Medications/Allergies Home Medications ?Medication ?Instructions ?Recorded ?Confirmed ?Last Taken ?Type trazodone 150 mg tablet 150 mg PO BEDTIME 01/17/24 0 10/15/24 09/20/24 20:00 History albuterol sulfate 90 mcg/actuation 1 inh inhalation Q6 H PRN shortness 09/23/24 10/15/24 Unknown Rx aerosol inhaler (Ventolin HFA) of breath or wheezing # 8.5 grams fluticasone 250 mcg-salmeterol 50 1 inh inhalation BID #60 ea 09/23/24 10/15/24 Unknown Rx mcg/dose blistr powdr for inhalation (Advair Diskus) furosemide 80 mg tablet 80 mg PO BID #60 tabs 10/15/24 09/21/24 Rx metoprolol tartrate 50 mg tablet 50 mg PO BID@0900,210 0 #60 tabs 10/17/24 Unknown Rx Allergies Allergy/AdvReac Type Severity Reaction Status Date / Time lisinopril Allergy swelling Verified 03/15/24 22:51 Penicillins Allergy ALGY-Hives Verified 03/15/24 22:51 tramadol Allergy ALGY-Hives Verified 03/15/24 22:51 PFSH Acute 2 PFSH: Medical History Diastolic CHF Atrial fibrillation with RVR End stage kidney disease Uncontrolled hypertension Hypoglycemia Atrial fibrillation with RVR COPD exacerbation Pulmonary edema Non-compliance with renal dialysis End stage renal disease Anxiety and depression Obstructive sleep apnea Allergic dermatitis ESRD (end stage renal disease) Pleural effusion Dialysis patient Hypertensive emergency Atrial fibrillation/flutter Chest pain Elevated troponin Resistant hypertension Paroxysmal atrial fibrillation with RVR End stage chronic kidney disease Anemia Sebaceous cyst GERD (gastroesophageal reflux disease) Insomnia COPD (chronic obstructive pulmonary disease) Reports he is on 4 L of oxygen at home Hypoxia Anxiety and depression Lower respiratory tract infection Encounter to establish care Vitamin D deficiency Hypertension CRF (chronic renal failure) Surgical History S/P hemodialysis catheter insertion H/O hand surgery right hand with hardware H/O circumcision Presence of peritoneal dialysis catheter S/P dialysis catheter insertion (12/12/19) Removed on 04/04/2020 Family History Other Adopted Denies family history of Anesthesia complication Bleeding disorder Social History Smoking and tobacco/nicotine status: current every day tobacco/nicotine user (1ppd X26 years) cigarettes [ Other cigarette details: On and off quitting and restarting] Alcohol intake: never Substance/Drug Use: never Household members: significant other Marital status: Single Current occupational status: disabled Vitals/I&O/Wt Last Vital Signs Temp 98.3 F 01/23/25 01:24 Pulse 130 H 01/23/25 02:06 Resp 15 01/23/25 01:24 BP 155/89 01/23/25 02:06 Pulse Ox 98 01/23/25 02:00 O2 Del Method Nasal Cannula 01/23/25 02:00 O2 Flow Rate 5 01/23/25 02:00 01/22/25 01/22/25 01/23/25 14:59 22:59 06:59 Intake Total 3.125 / 3.125 Balance 3.125 / 3.125 Weight last 48 hrs Weight 83.915 kg Physical Exam 2 Narrative: General the patient is in no apparent distress relaxing somewhat HEENT normocephalic atraumatic neck neck is supple cardiovascular heart rate is regular lungs are pretty much clear abdomen soft nontender nondistended unremarkable extremities are intact no edema has good pulses neurology has no focality lab studies lab studies reviewed and noted. Data 01/23/25 05:05 01/23/25 05:05 A&P Assessment and plan 1. Chronic atrial fibrillation: 2. ESRD on dialysis: 3. Chronic hypoxemic respiratory failure: 4. Diastolic CHF: 5. Benign hypertension: 6. Hyperkalemia: 7. Right arm cellulitis: Plan: Chest pain with elevated troponin in the setting of chronic renal failure - Case discussed with Dr. Amos who wanted to follow through with chest pain rule out - Patient kept n.p.o. on Eliquis - Eventually will need to undergo stress test once medically stable off of Cardizem drip for A-fib with rapid ventricular rate Hypokalemia - Aggressive medical optimization in place - Most importantly consulting nephrology for emergent hemodialysis Atrial fibrillation with rapid ventricular rate - Continue Cardizem drip End-stage renal disease on chronic hemodialysis with much electrolytes derangement - Emergent hemodialysis it is important - Will continue to follow to and optimize GI and DVT prophylaxis in place PDMP PDMP Reviewed: Last Reviewed 01/23/25 05:46 by Leighton Koehler MD Attestations 2 Medical Necessity Statement*: Patient with multiple electrolyte imbalance potassium at 7.8 with EKG changes and chest pains. Patient right arm it is with cellulitis warm swollen and around the site of a fistula placed a month ago need at least 2 midnights to optimize care. Coding Level of Care Code 38212 Diagnoses Chronic atrial fibrillation I48.20 ESRD on dialysis N18.6; Z99.2 Chronic hypoxemic respiratory failure J96.11 Diastolic CHF I50.30 Benign hypertension I10 Hyperkalemia E87.5 Right arm cellulitis L03.113 Time Spent (min) 70
[2025-01-23] MEDS: insulin regular-human 100 units/1 mL 10 UNIT IVP (03:00)
--- NOTE | 2025-01-23 03:38 | ECG_ITS ---
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1975 Requested By: Wil Castro Order Number: [id number] Reading MD: GARRETT JIMENEZ Measurements Intervals [place] Rate: 102 P: 0 AR: 0 QRS: 53 QRSD: 109 T: 269 QT: 351 QTc: 457 Interpretive Statements ATRIAL FIBRILLATION WITH RAPID VENTRICULAR RESPONSE WITH ABERRANT CONDUCTION OR VENTRICULAR PREMATURE COMPLEXES ST DEVIATION AND MODERATE T-WAVE ABNORMALITY, CONSIDER INFERIOR ISCHEMIA [-0.1+ mV T-WAVE IN II/aVF] Compared to ECG 10/15/2024 13:24:05 T-wave abnormality now present Possible ischemia now present Electronically Signed On 01-28-2025 21:12:11 CDT by GARRETT JIMENEZ [email or web address] [id number]
[2025-01-23 03:45] LABS: Troponin 5 2HR Delta -15.2 ABS# (0-10)
[2025-01-23 03:46] LABS: Troponin 5 2HR 103.8 ng/L (0-15)
--- NOTE | 2025-01-23 04:16 | PC.NURSE ---
Patient arrived to ICU 12. Alert and oriented. Call light in reach. Oriented to room. Diltiazem running at 10ml/hr.
[2025-01-23] MEDS: heparin 5,000 unit/mL INJ 1 mL 5000 UNIT SUBCUT (04:29)
[2025-01-23] MEDS: linezolid premix 600 MG/300 ML PREMIX 300 MG IV ×2 (04:29→17:07)
[2025-01-23 05:17] LABS: Hematocrit 49.3 % (37-53); Hemoglobin 15.90 g/dL (11.27-16.99); Mean Corpuscular HGB Conc 32.3 g/dL (30-55); Mean Corpuscular Hemoglobin 32.3 pg (27-33); Mean Corpuscular Volume 100.2 fl (82-101); Nucleated Red Blood Cells % 0 %; Platelet Count 242 10^3/cmm (157-399); Red Blood Count 4.92 10^6/uL (3.85-5.65); White Blood Count 8.88 10^3/uL (3.29-11.43)
[2025-01-23] MEDS: heparin, porcine 1,000 unit/mL INJ 10 mL 1000 UNIT IV (05:25)
[2025-01-23 05:38] LABS: Alanine Aminotransferase 8 U/L (0-41); Albumin Level 3.9 g/dL (3.5-5.2); Alkaline Phosphatase 259 U/L (40-130); Anion Gap 30.1 (5-19); Aspartate Amino Transferase 11 U/L (0-40); Calcium 9.9 mg/dL (8.5-10.5); Carbon Dioxide 22 mmol/L (22-29); Chloride 88 mmol/L (98-107); Creatinine Clr Calc Pharmacy 6.7474; Globulin 3.4 g/dL (1.3-4.6); Glucose 51 mg/dL (65-115); Magnesium 2.3 mg/dL (1.7-2.3); Osmolality Calculated 303 mOsm/kg (285-295); Potassium 6.1 mmol/L (3.5-5.1); Sodium 134 mmol/L (136-145); Total Protein 7.3 g/dL (6.6-8.7)
[2025-01-23 05:47] LABS: Blood Urea Nitrogen 91 mg/dL (6-20)
--- NOTE | 2025-01-23 06:11 | USCV_ITS ---
SchaeferLeopoldo urbina Age: 49 Gender: M : 1975 Exam Date: 01/23/2025 09:40 Ordering Phys: Pau Koehler MD Technologist: BRANDEE Exam Location: [facility] [place] Indication: RUE Swelling HISTORY: Upper extremity swelling. Pt has a Rt fisulta. Also has cat scratches on forearm. Tds due to the pt ability to move arm and the amount of collaterals and varicocities in UE PROCEDURES: Venous duplex imaging was performed in only the right upper extremity. The following venous structures were evaluated: internal jugular vein, subclavian vein, axillary vein, and brachial veins. In addition, the basilic vein, cephalic vein, radial vein, and ulnar vein. FINDINGS: Age indeterminate nonoccluding thrombus of the IJV, Innominate V, Subclavian V, Axillary V, and brachial vein. Soft tissue edema. CONCLUSIONS Age indeterminate DVT right uppper extremity, may be chronic. Acute subcutaneous edema. Dr. Meagan Mckay DO (Electronically Signed) Final Date: 23 January 2025 11:02 S
[2025-01-23 06:49] LABS: Hepatitis B Surface Antigen Non-Reactive (Nonreactive)
--- NOTE | 2025-01-23 07:38 | ECG_ITS ---
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1975 Requested By: Wil Castro Order Number: [id number] Roderick MD: GARRETT JIMENEZ Measurements Intervals [place] Rate: 110 P: 0 MO: 0 QRS: 64 QRSD: 91 T: -79 QT: 326 QTc: 442 Interpretive Statements ATRIAL FIBRILLATION WITH RAPID VENTRICULAR RESPONSE WITH ABERRANT CONDUCTION OR VENTRICULAR PREMATURE COMPLEXES ST DEVIATION AND MODERATE T-WAVE ABNORMALITY, CONSIDER ANTEROLATERAL ISCHEMIA [-0.1+ mV T-WAVE IN V3-V6] ST DEVIATION AND MODERATE T-WAVE ABNORMALITY, CONSIDER INFERIOR ISCHEMIA [-0.1+ mV T-WAVE IN II/aVF] Compared to ECG 01/23/2025 05:58:59 No significant changes Electronically Signed On 01-28-2025 21:12:15 CDT by GARRETT JIMENEZ [email or web address] [id number]
[2025-01-23 07:41] LABS: Troponin 5 6HR Delta -7.7 ng/L (0-12)
[2025-01-23 07:42] LABS: Troponin 5 6HR 111.3 ng/L (0-15)
--- NOTE | 2025-01-23 08:35 | PC.PHAR ---
Pt states he only takes Furosemide 80mg bid last fill 08/30/24 45ds, Metoprolol Tart. 50mg bid last fill 10/17/24 30ds, and Trazodone 50mg at hs last fill 08/30/24 100ds. Pt has not picked up refills on any of them. Pt also states he is still taking the Cipro 250mg bid-new order on 01/11/25. He is not quite finished with it. Pharmacy verified fill dates and day supply. Pharmacy also states pt has Isosorbide and a Symbicort inhaler never picked up. Ot has Atorvastatin 40mg at bedtime 09/23/24 30ds Asa 81mg daily 09/23/24 30ds Carvedilol 6.25 bid 08/30/24 30ds none of them have been filled since August.
--- NOTE | 2025-01-23 09:25 | P.CONIM_ITS ---
<Statement entered by Paulino Amos MD - 01/25/25 18:48> Patient was evaluated and cared for in conjunction with an advanced practice practitioner. I personally examined the patient and reviewed the chart and all pertinent data including imaging, telemetry, and laboratory results. I discussed the patient in detail with the advanced practice practitioner. Please see their note for complete H&P testing result and agreed upon plan of care for the patient. Providers/Reason For Consult 2 Consulting Physician/Specialty*: Dr Amos, interventional cardiology Reason for Consult*: Chest pain, atrial fibrillation with RVR Attending Physician: Nish Stack MD Primary Care Provider: Ras Joy History of Present Illness History of Present Illness Leopoldo Schaefer is a 49 year old male with past medical history of end-stage renal disease on hemodialysis, chronic atrial fibrillation, mildly reduced LVEF 50% in September, moderate LVH, hypertension, admission September of this year for nonsustained monomorphic VT. He was requested to undergo stress test during the last admission in September, declined to perform the test. He was taken off of anticoagulation due to bleeding from the dialysis catheter site. He presented to the emergency room earlier this morning due to right arm swelling at the location of the AV fistula, shortness of breath. The fistula in his right arm is not yet in use. He was found to be hyperkalemic, potassium 7.8. He underwent dialysis earlier this morning, currently on a heparin infusion and diltiazem infusion at 10 mg/h. Review of Systems 2 Card: Reports: irregular heart rhythm and dyspnea on exertion; Denies: chest pain, lightheadedness, syncope, pre-syncope, orthopnea or leg pain with exertion Resp: Reports: dyspnea; Denies: productive cough or wheezing GI: Denies: hematochezia : Denies: hematuria Gene/Lymph: Denies: easy bleeding Medications/Allergies Home Medications ?Medication ?Instructions ?Recorded ?Confirmed ?Last Taken ?Type trazodone 150 mg tablet 150 mg PO BEDTIME 01/17/24 1 09/20/24 20:00 History furosemide 80 mg tablet 80 mg PO BID #60 tabs 01/23/25 09/21/24 Rx metoprolol tartrate 50 mg tablet 50 mg PO BID@0900,210 0 #60 tabs 10/17/24 01/23/25 Unknown Rx ciprofloxacin HCl 250 mg tablet 250 mg PO BID 01/23/25 01/23/25 01/22/25 History Allergies Allergy/AdvReac Type Severity Reaction Status Date / Time lisinopril Allergy swelling Verified 03/15/24 22:51 Penicillins Allergy ALGY-Hives Verified 03/15/24 22:51 tramadol Allergy ALGY-Hives Verified 03/15/24 22:51 Current Medications Generic Name Dose Route Start Last Admin Trade Name Staci PRN Reason Stop Dose Admin DILTIAZEM HCL/D5W 125 mg in 125 mls @ 0 mls/hr 01/23/25 01:45 01/23/25 06:43 Cardizem IV 7.5 mg/hr .Q0M FRANCISCO 7.5 mls/hr Protocol Titration Per Protocol Linezolid 600 mg in 300 mls @ 300 mls/hr 01/23/25 03:30 01/23/25 05:31 Zyvox Premix IV Infused Q12H FRANCISCO Infusion Protocol Insulin Human Lispro 0 unit 01/23/25 08:00 01/23/25 09:02 Insulin Lispro 100 Unit/1 Ml SUBCUT Not Given WM&BEDTIME FRANCISCO Protocol Pantoprazole Sodium 40 mg 01/23/25 05:00 01/23/25 04:[address] 40 Mg Tablet PO 40 mg DAILY FRANCISCO Administration PFSH Acute 2 PFSH: Medical History Diastolic CHF Atrial fibrillation with RVR End stage kidney disease Uncontrolled hypertension Hypoglycemia Atrial fibrillation with RVR COPD exacerbation Pulmonary edema Non-compliance with renal dialysis End stage renal disease Anxiety and depression Obstructive sleep apnea Allergic dermatitis ESRD (end stage renal disease) Pleural effusion Dialysis patient Hypertensive emergency Atrial fibrillation/flutter Chest pain Elevated troponin Resistant hypertension Paroxysmal atrial fibrillation with RVR End stage chronic kidney disease Anemia Sebaceous cyst GERD (gastroesophageal reflux disease) Insomnia COPD (chronic obstructive pulmonary disease) Reports he is on 4 L of oxygen at home Hypoxia Anxiety and depression Lower respiratory tract infection Encounter to establish care Vitamin D deficiency Hypertension CRF (chronic renal failure) Surgical History S/P hemodialysis catheter insertion H/O hand surgery right hand with hardware H/O circumcision Presence of peritoneal dialysis catheter S/P dialysis catheter insertion (12/12/19) Removed on 04/04/2020 Family History Other Adopted Denies family history of Anesthesia complication Bleeding disorder Social History Smoking and tobacco/nicotine status: current every day tobacco/nicotine user (1ppd X26 years) cigarettes [ Other cigarette details: On and off quitting and restarting] Alcohol intake: never Substance/Drug Use: never Household members: significant other Marital status: Single Current occupational status: disabled Vitals/I&O/Wt Last Vital Signs Temp 98.4 F 01/23/25 06:09 Pulse 89 01/23/25 06:09 Resp 19 H 01/23/25 06:09 BP 147/95 01/23/25 06:09 Pulse Ox 98 01/23/25 04:00 O2 Del Method Nasal Cannula 01/23/25 03:45 O2 Flow Rate 5 01/23/25 03:43 01/22/25 01/23/25 01/23/25 22:59 06:59 14:59 Intake Total 590.334 / 590.334 Balance 590.334 / 590.334 Weight last 48 hrs Weight 194 lb 14.218 oz Weight 195 lb Weight 185 lb Physical Exam 2 Const: COMMON NORMALS: no acute distress and patient oriented x3 Chest: COMMONS NORMALS: normal inspection of the chest and normal palpation of entire chest wall CHEST: Yes Symmetrical chest wall rise Resp: COMMON NORMALS: normal respiratory effort, No retractions, No use of accessory muscles and clear to auscultation bilaterally EFFORT & INSPECTION: Yes symmetric chest movement AUSCULTATION: clear to auscultation bilaterally Cardio: COMMON NORMALS: S1 normal heart sound present, S2 normal heart sound present, No gallops present (Cardio), No clicks present (Cardio), No murmurs present (Cardio) and No rub (Cardio) RHYTHM: abnormal rhythm irregularly irregular HEART SOUNDS: S1 normal heart sound present and S2 normal heart sound present PERIPHERAL PULSES: radial pulses present, posterior tibial pulses present and dorsalis pedis present Neuro: COMMON NORMALS: patient oriented x3 and moves all extremities Psych: COMMON NORMALS: mental status grossly normal and cooperative Data 01/23/25 05:05 01/23/25 10:36 Micro: Microbiology 01/23/25 05:07 Blood Culture - Preliminary Blood SPECIMEN COLLECTED 01/23/25 05:05 Blood Culture - Preliminary Blood SPECIMEN COLLECTED A&P Assessment and plan 1. Chronic atrial fibrillation: 2. Systolic CHF, acute: 3. Benign hypertension: 4. End stage renal disease on dialysis: 5. Hyperkalemia: Plan: He has chronic atrial fibrillation, has some RVR even with diltiazem infusion. He underwent dialysis today, does not appear volume overloaded. Will plan for echocardiogram and Lexiscan stress test for further evaluation. No chest pain at this time. Will add metoprolol succinate 25mg daily for rate control, will plan to switch to oral diltiazem tomorrow if rate control is adequate. PDMP PDMP Reviewed: Not Reviewed Coding Level of Care Code Acute Code for Chg Fwd Diagnoses Chronic atrial fibrillation I48.20 Systolic CHF, acute I50.21 Benign hypertension I10 End stage renal disease on dialysis N18.6; Z99.2 Hyperkalemia E87.5
--- NOTE | 2025-01-23 09:44 | ECG_ITS ---
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 Interpretive Statements Lung unchanged pre/post procedure; Intraprocedure shortess of breath; Symptoms resoled by discharge [email or web address] [id number]
--- NOTE | 2025-01-23 09:44 | USCV_ITS ---
Leopoldo Schaefer Age: 49 Gender: M : 1975 Exam Date: 01/23/2025 14:27 Ordering Phys: Azra Aguayo Technologist: BRANDEE Exam Location: [facility] [place] Indication: CP BP: 119 / 78 HR: 83 Rhythm: Sinus Technical Quality: Adequate MEASUREMENTS (Male / Female) Normal Values 2D ECHO LV Diastolic Diameter PLAX 5.7 cm 4.2 - 5.9 / 3.9 - 5.3 cm IVS Diastolic Thickness 0.9 cm 0.6 - 1.0 / 0.6 - 0.9 cm IVS Systolic Thickness 1.0 cm LVPW Diastolic Thickness 1.0 cm 0.6 - 1.0 / 0.6 - 0.9 cm LVPW Systolic Thickness 1.2 cm LVOT Diameter 2.0 cm LV Ejection Fraction 2D Teich 24.6 % LV Ejection Fraction MOD 4C 62.7 % LV Ejection Fraction MOD 2C 68.5 % LV Ejection Fraction 2C AL 69.3 % LA Diameter 4.9 cm RA Systolic Volume 4C AL 85.8 ml RA Systolic Volume 4C MOD 80.9 ml LA Sys Volume AL 83.3 cm cubed LA Sys Volume Index AL 40.1 cm cubed/m squared Aorta at Sinotubular Diameter 2.9 cm IVC Diameter 1.7 cm M-MODE LA Ao Ratio MM 1.6 AV Cusp Separation MM 1.6 cm DOPPLER AV Peak Velocity 163.0 cm/s LVOT Peak Velocity 110.0 cm/s AV Area Cont Eq vti 2.0 cm squared AV Area Cont Eq pk 2.1 cm squared MV Peak Velocity 135.0 cm/s MV Area PHT 4.3 cm squared Mitral E to A Ratio 2.1 TV Peak Velocity 291.5 cm/s TR Peak Velocity 383.0 cm/s TR Peak Gradient 58.7 mmHg TV Peak E Velocity 83.0 cm/s PV Peak Velocity 111.0 cm/s FINDINGS Left Ventricle Normal left ventricular size, systolic function and wall thickness, abnormal septal motion consistent with conduction abnormality. Left ventricular ejection fraction is estimated at 60 %. Normal diastolic function. Right Ventricle Normal right ventricular size and systolic function. Right Atrium Mildly increased right atrial size. Left Atrium Mildly increased left atrial size. IA Septum Normal appearance of the interatrial septum. Mitral Valve Mildly thickened mitral valve. No mitral valve stenosis. Mild mitral valve regurgitation. Aortic Valve Moderate aortic valve calcification. Mild aortic valve stenosis, mean gradient 5.9 mmHg, ENEDELIA 2 cm squared. Tricuspid Valve Mild tricuspid valve regurgitation. Pulmonic Valve Mild pulmonary valve regurgitation. Pericardium No pericardial effusion. Aorta Normal diameter of the aortic root and ascending thoracic aorta. IVC Normal IVC diameter. CONCLUSIONS Normal left ventricular size, systolic function and wall thickness, abnormal septal motion consistent with conduction abnormality. Left ventricular ejection fraction is estimated at 60 %. Normal diastolic function. Biatrial mild enlargment Moderate aortic valve calcification. Mild aortic valve stenosis, mean gradient 5.9 mmHg, ENEDELIA 2 cm squared. There is no pericardial effusion. Right atrial pressure is around 5 mm of mercury. Paulino Amos MD (Electronically Signed) Final Date: 24 January 2025 19:12 S
[2025-01-23] MEDS: heparin 5,000 unit/mL INJ 1 mL IVP (09:51)
[2025-01-23] MEDS: heparin drip 25,000 UNIT/500 ML PREMIX 25 UNIT IV (09:57)
[2025-01-23] MEDS: aztreonam 1,000 MG in sodium chloride 0.9% (plus) 50 ML 100 MG IV ×2 (09:58→22:49)
--- NOTE | 2025-01-23 10:01 | US_ITS ---
WS: [id number] Complete ABDOMINAL ULTRASOUND HISTORY: No history provided. COMPARISON: None available. Liver: 15.4 cm in length. Cirrhotic liver. No mass identified. No intrahepatic duct dilatation. Portal Vein: Normal hepatopetal flow with monophasic waveform. Gallbladder: Normally distended. Mild gallbladder wall thickening is probably on the basis of hepatocellular disease. No stones. CBD: 0.4 cm Pancreas: Completely obscured. Right kidney: 7.4 cm x 3.8 x 3.6 cm. Cortex:0.7 cm. Severe atrophy RIGHT kidney with cortical thinning. Marked increased echogenicity. No obstruction. Left kidney: 9.9 cm x 5.9 cm x 4.9 cm. Cortex: 0.7 cm. Mild atrophy with severe chronic medical renal disease. Acquired cyst 1.5 x 1.2 x 1.2 cm in the upper pole. Spleen: 12.5 cm. Normal size and echogenicity. Aorta and IVC: Not visualized. US/US abdomen complete* [id number] Impression: 1. No cholelithiasis. 2. Cirrhotic liver. No mass identified. 3. Severe chronic medical renal disease. 4. Advanced atrophy RIGHT kidney. Diffuse cortical thinning LEFT kidney.
--- NOTE | 2025-01-23 10:16 | PM.CONSULT ---
Providers/Reason For Consult Consulting Physician/Specialty*: tonnynephrology Reason for Consult*: ESRD Attending Physician: Nish Stack MD Primary Care Provider: Ras Joy History of Present Illness History of Present Illness Leopoldo Schaefer is a 49 year old male Patient is a 49-year-old male with past medical history significant for end-stage renal disease on chronic hemodialysis presented to the emergency department due to palpitations and was found to be in A-fib and lab data was significant for potassium of 7.8 with peaked T waves on the EKG. Patient was medically treated with calcium gluconate dextrose and insulin as well as sodium bicarbonate for high potassium and emergency dialysis was requested. Review of Systems Narrative: negative Medications/Allergies Home Medications ?Medication ?Instructions ?Recorded ?Confirmed ?Last Taken ?Type trazodone 150 mg tablet 150 mg PO BEDTIME 01/17/24 01/23/25 09/20/24 20:00 History furosemide 80 mg tablet 80 mg PO BID #60 tabs 10/17/24 01/23/25 09/21/24 Rx metoprolol tartrate 50 mg tablet 50 mg PO BID@0900,2100 #60 tabs 10/17/24 01/23/25 Unknown Rx ciprofloxacin HCl 250 mg tablet 250 mg PO BID 01/23/25 01/23/25 01/22/25 History Allergies Allergy/AdvReac Type Severity Reaction Status Date / Time lisinopril Allergy swelling Verified 03/15/24 22:51 Penicillins Allergy ALGY-Hives Verified 03/15/24 22:51 tramadol Allergy ALGY-Hives Verified 03/15/24 22:51 Current Medications Generic Name Dose Route Start Last Admin Trade Name Freq PRN Reason Stop Dose Admin DILTIAZEM HCL/D5W 125 mg in 125 mls @ 0 mls/hr 01/23/25 01:45 01/23/25 06:43 Cardizem IV 7.5 mg/hr .Q0M FRANCISCO 7.5 mls/hr Protocol Titration Per Protocol Linezolid 600 mg in 300 mls @ 300 mls/hr 01/23/25 03:30 01/23/25 05:31 Zyvox Premix IV Infused Q12H FRANCISCO Infusion Protocol Heparin Sodium/Sodium Chloride 25,000 unit in 500 mls @ 0 mls/hr 01/23/25 08:30 01/23/25 09:57 Heparin Drip IV 14.14 unit/kg/hr CONT FRANCISCO 25 mls/hr Protocol Administration Per Protocol Aztreonam 1,000 mg/ Sodium 50 mls @ 100 mls/hr 01/23/25 08:30 01/23/25 09:58 Chloride IV 100 mls/hr Q12H FRANCISCO Administration Protocol Insulin Human Lispro 0 unit 01/23/25 08:00 01/23/25 09:02 Insulin Lispro 100 Unit/1 Ml SUBCUT Not Given WM&BEDTIME FRANCISCO Protocol Pantoprazole Sodium 40 mg 01/23/25 05:00 01/23/25 04:[address] 40 Mg Tablet PO 40 mg DAILY FRANCISCO Administration PFSH Acute PFSH: Medical History Diastolic CHF Atrial fibrillation with RVR End stage kidney disease Uncontrolled hypertension Hypoglycemia Atrial fibrillation with RVR COPD exacerbation Pulmonary edema Non-compliance with renal dialysis End stage renal disease Anxiety and depression Obstructive sleep apnea Allergic dermatitis ESRD (end stage renal disease) Pleural effusion Dialysis patient Hypertensive emergency Atrial fibrillation/flutter Chest pain Elevated troponin Resistant hypertension Paroxysmal atrial fibrillation with RVR End stage chronic kidney disease Anemia Sebaceous cyst GERD (gastroesophageal reflux disease) Insomnia COPD (chronic obstructive pulmonary disease) Reports he is on 4 L of oxygen at home Hypoxia Anxiety and depression Lower respiratory tract infection Encounter to establish care Vitamin D deficiency Hypertension CRF (chronic renal failure) Surgical History S/P hemodialysis catheter insertion H/O hand surgery right hand with hardware H/O circumcision Presence of peritoneal dialysis catheter S/P dialysis catheter insertion (12/12/19) Removed on 04/04/2020 Family History Other Adopted Denies family history of Anesthesia complication Bleeding disorder Social History Smoking and tobacco/nicotine status: current every day tobacco/nicotine user (1ppd X26 years) cigarettes [ Other cigarette details: On and off quitting and restarting] Alcohol intake: never Substance/Drug Use: never Household members: significant other Marital status: Single Current occupational status: disabled Vitals/I&O/Wt Last Vital Signs Temp 98.6 F 10/27/25 09:52 Pulse 101 H 01/23/25 10:00 Resp 17 01/23/25 10:00 BP 115/79 01/23/25 10:00 Pulse Ox 99 01/23/25 10:00 O2 Del Method Nasal Cannula 01/23/25 09:30 O2 Flow Rate 3 01/23/25 09:30 01/22/25 01/23/25 01/23/25 22:59 06:59 14:59 Intake Total 590.334 / 590.334 620 / 620 Output Total 2418 / 2418 Balance 590.334 / 590.334 -1798 / -1798 Weight last 48 hrs Weight 88.1 kg Weight 88.4 kg Weight 88.451 kg Weight 83.915 kg Physical Exam Narrative: Patient is awake alert, no acute distress On room air No JVD PERRLA S1 Lungs clear bilaterally Abdomen soft nontender Extremities no pedal edema No skin rash Data 01/23/25 05:05 01/23/25 10:36 Micro: Microbiology 01/23/25 05:07 Blood Culture - Preliminary Blood SPECIMEN COLLECTED 01/23/25 05:05 Blood Culture - Preliminary Blood SPECIMEN COLLECTED A&P Assessment and plan 1. ESRD on dialysis: Plan: 1. End-stage renal disease: On MWF schedule, emergent dialysis today due to severe hyperkalemia 2. Severe hyperkalemia, low K diet and 1K dialysate with HD 3. Chest pain with elevated troponin 4. A-fib with RVR, on Cardizem drip Patient evaluated using audiovisual cart. Time spent 40 minutes. PDMP PDMP Reviewed: Not Reviewed Coding Level of Care Code Acute Code for Chg Fwd Diagnoses ESRD on dialysis N18.6; Z99.2
[2025-01-23 11:08] LABS: Blood Urea Nitrogen 43 mg/dL (6-20); Calcium 9.3 mg/dL (8.5-10.5); Carbon Dioxide 23 mmol/L (22-29); Chloride 93 mmol/L (98-107); Creatinine Clr Calc Pharmacy 10.8380; Glucose 112 mg/dL (65-115); Osmolality Calculated 290 mOsm/kg (285-295); Sodium 134 mmol/L (136-145)
[2025-01-23 11:15] LABS: Anion Gap 22.5 (5-19); Potassium 4.5 mmol/L (3.5-5.1)
[2025-01-23] MEDS: metoprolol succinate ER (24 HR) 25 mg Tablet PO (11:43)
--- NOTE | 2025-01-23 14:37 | CTR_ITS ---
PROCEDURE INFORMATION: Exam: CTA Right Upper Extremity With Contrast Exam date and time: 01/23/2025 4:32 PM Age: 49 years old Clinical indication: Arm, upper; Prior surgery; Surgery date: 6+ months; Surgery type: Dialysis catheter; Swelling in upper right arm; Additional info: Deep tissue infection TECHNIQUE: Imaging protocol: Computed tomographic angiography of the right upper extremity with contrast, including non-contrast images if performed. 3D rendering (Not supervised by radiologist): MIP and/or 3D reconstructed images were created by the technologist. Radiation optimization: All CT scans at this facility use at least one of these dose optimization techniques: automated exposure control; mA and/or kV adjustment per patient size (includes targeted exams where dose is matched to clinical indication); or iterative reconstruction. Contrast material: OMNIPAQUE 350; Contrast volume: 100 ml; Contrast route: INTRAVENOUS (IV); COMPARISON: CT angio chest PE protcl [id number] 03/16/2024 10:52 AM RADIATION DOSE METRICS: Total DLP (mGy-cm): 452.05 FINDINGS: Tubes, catheters and devices: Large-bore right subclavian central venous catheter in place, with the tip not visualized on this exam. The distal right subclavian vein and right brachiocephalic vein do not enhance at the level of the central venous catheter, consistent with occlusion. Right subclavian artery: No occlusion or significant stenosis. Axillary artery: Patent. Brachial artery: Patent. Radial artery: Patent. Scattered foci of atherosclerosis are noted. Hand arteries are not enhanced Ulnar artery: Small artery with limited enhancement. Atherosclerotic calcifications are noted. Hand arteries are not enhanced. Veins: The remainder of the distal subclavian vein is normally enhanced. The enhanced subclavian vein primarily extends into large subcutaneous collaterals in the right arm. Normal brachial venous patency is not confirmed. The superior vena cava remains patent. Numerous deep and subcutaneous venous collaterals are noted in the right chest wall, axilla and right upper extremity. Lungs: Visualized lungs are clear. Bones/joints: The osseous structures are unremarkable. Soft tissues: Moderate swelling and subcutaneous edema is noted throughout right upper extremity, with most marked subcutaneous edema dorsally in the forearm. Margins of the triceps and biceps muscles are ill-defined due to surrounding edema. No focal gas collection or rim enhancing fluid collection. No intramuscular mass identified. Other findings: 4 cm right parietal hypodensity representing subacute or chronic infarct. CT/[place] [id number] IMPRESSION: 1. The distal right subclavian vein and right brachiocephalic vein do not enhance at the level of the central venous catheter, consistent with occlusion. Extensive subcutaneous and deep collateral vessels noted in the right chest wall and right arm. 2. Moderate swelling and subcutaneous edema is noted throughout right upper extremity, with most marked subcutaneous edema dorsally in the forearm. Findings are compatible with cellulitis and/or venous congestion. 3. Reduced enhancement of the distal forearm arteries with absent enhancement of hand arteries. The finding may relate to a delayed contrast bolus, but distal arterial occlusion remains a possibility. If there is clinical concern for ischemia to the hand, sonographic assessment of the distal arteries is recommended. 4. 4 cm right parietal hypodensity representing subacute or chronic infarct. 5. Findings were discussed with ISA CHEUNG at 01/23/2025 6:01 PM CDT.
[2025-01-23 15:24] LABS: Procalcitonin 1.93 ng/mL (0-0.5)
[2025-01-23 16:15] LABS: Partial Thromboplastin Time 125.2 SECONDS (23.9-36.7)
[2025-01-23 16:20] LABS: ABG PCO2 41.0 mmHg (35-45); ABG PH Result 7.40 (7.35-7.45); Alveolar-Arterial Oxygen Gradi 6.5 mmHg (5-10); Arterial Blood Gas Hematocrit 49.7 % (42-52); Blood Gas Allen Test Pos; Blood Gas LPM 2.0 %; Blood Gas Operator Identificat GD; Blood Gas Sample Site Radial, left; Blood Gas Sample Type Arterial; Carboxyhemoglobin 1.3 %THgb (0.4-20.1); Glucose Level-ABG 102.0 mg/dL (70-115); HCO3 ABG 25.1 mmol/L (22-26); Ionized Calcium Level - ABG 1.1 mmol/L (1.1-1.4); Methemoglobin 0.9 % (0.4-1.5); Oxygen Saturation ABG 97.7; PO2 ABG 97.3 mmHg (80.0-100.0); PO2 FiO2 Ratio Arterial Blood 347; Potassium Level - ABG 4.4 mmol/L (3.5-5.0); Sodium Level - ABG 135.0 mmol/L (131-143)
[2025-01-23] MEDS: iohexol 350 mg/mL 500 mL Btl (per mL) IV (16:46)
--- NOTE | 2025-01-23 17:20 | PM.PN ---
Subjective Subjective: - Patient was seen this morning - Currently alert oriented x 3, following all commands - Patient reports that he has right arm pain and swelling - He tells me that he has had some degree of pain and swelling for the last month - He tells me that he had a attempt at dialysis access to be placed in the arm, he tells it that it was a new technique and system involving valves - But he had postoperative complications, and they were not able to use it, performed by Dr. Avelar at, [facility] - He says that since then he has had some degree of swelling, tenderness of his left arm - He did have a cat scratch of his right forearm maybe 2 weeks ago - He tells of the last few weeks he has had swelling, erythema, tenderness throughout the right arm - Denies any fevers, no chills - No abdominal pain at - No visual deficits - Denies any chest pain, no palpitations, no shortness of breath Vitals/I&O/Wt Last Vital Signs Temp 98.6 F 01/23/25 09:52 Pulse 88 01/23/25 15:00 Resp 15 01/23/25 14:00 BP 122/77 01/23/25 15:00 Pulse Ox 92 01/23/25 15:00 O2 Del Method Nasal Cannula 01/23/25 09:30 O2 Flow Rate 3 01/23/25 09:30 01/23/25 01/23/25 01/23/25 06:59 14:59 22:59 Intake Total 590.334 / 590.334 646.083 / 646.083 177.083 / 823.166 Output Total 2418 / 2418 Balance 590.334 / 590.334 -1771.917 / -1771.917 177.083 / -1594.834 Weight last 48 hrs Weight 88.1 kg Weight 88.4 kg Weight 88.451 kg Weight 83.915 kg Physical Exam Const: COMMON NORMALS: no acute distress and patient oriented x3 Resp: COMMON NORMALS: normal respiratory effort, No retractions, No use of accessory muscles and clear to auscultation bilaterally AUSCULTATION: clear to auscultation bilaterally Cardio: COMMON NORMALS: regular rate, S1 normal heart sound present and S2 normal heart sound present RATE: regular rate RHYTHM: abnormal rhythm HEART SOUNDS: S1 normal heart sound present and S2 normal heart sound present GI: COMMON NORMALS: Normal to inspection, nondistended, normoactive bowel sounds present and non-tender Extremity: COMMON NORMALS: no pedal edema Neuro: COMMON NORMALS: patient oriented x3 Psych: COMMON NORMALS: mental status grossly normal Skin: NARRATIVE SKIN EXAM: Right arm Erythema, swelling, tenderness throughout the right arm, involving forearm, shoulder - Has superficial abrasion, linear 4 cm long, - Cannot discern any enlarged lymph node Data 01/23/25 05:05 01/23/25 10:36 Micro: Microbiology 01/23/25 05:07 Blood Culture - Preliminary Blood SPECIMEN COLLECTED 01/23/25 05:05 Blood Culture - Preliminary Blood SPECIMEN COLLECTED A&P Assessment and plan 1. Chronic atrial fibrillation: 2. ESRD on dialysis: 3. Chronic hypoxemic respiratory failure: 4. Diastolic CHF: 5. Benign hypertension: 6. Hyperkalemia: 7. Right arm cellulitis: Plan: Cat scratch disease - No visual deficits Plan - Ultrasound abdomen - Bartonella titers - Azithromycin Right arm cellulitis -With recent history of complications with dialysis access site - Will do CTA right upper extremity - Follow-up blood cultures - zyvox - Aztreonam Right upper extremity DVT FINDINGS: Age indeterminate nonoccluding thrombus of the IJV, Innominate V, Subclavian V, Axillary V, and brachial vein. Soft tissue edema. Heparin drip Atrial fibrillation Cardizem drip Heparin drip NSTEMI - No chest pain complaints -Aspirin, statin - Serial EKGs, serial troponins, telemetry monitoring -Cardiac echo - Cardiology consulted - Stress test tomorrow Hyperkalemia, status post dialysis, potassium 4.5 End-stage renal disease, received dialysis Full code Heparin drip PDMP PDMP Reviewed: Not Reviewed Attestations Medical Necessity Statement*: Patient requires physician for cat scratch disease, right arm cellulitis, right upper extremity DVT, NSTEMI Diagnoses Chronic atrial fibrillation I48.20 ESRD on dialysis N18.6; Z99.2 Chronic hypoxemic respiratory failure J96.11 Diastolic CHF I50.30 Benign hypertension I10 Hyperkalemia E87.5 Right arm cellulitis L03.113
[2025-01-23 17:25] LABS: Ammonia 46 umol/L (16-60)
--- NOTE | 2025-01-23 18:41 | PC.NURSE ---
Patient is A&Ox4 and has been sleeping most of the afternoon. Patient is arousable to verbal stimuli but appears drowsy and returns to sleep easily.
[2025-01-24] VITALS (74 sets, daily range): BP systolic 93–183; BP diastolic 66–125; PULSE 80–110; RESP 11–28; TEMP 36.6–36.9; O2SAT 71–100; BMI 28.9
[2025-01-24 00:13] LABS: Partial Thromboplastin Time 71.3 SECONDS (23.9-36.7)
--- NOTE | 2025-01-24 00:19 | PC.NURSE ---
PTT resulted at 71.3, no changes to heparin drip per protocol. Timed PTT order placed for 0615 per q6h protocol.
--- NOTE | 2025-01-24 00:48 | PC.NURSE ---
Addendum entered by MESERET Cortez 01/24/25 00:49: Patient is alert and oriented, no deficits, has been through entirety of shift. Original Note: Attempted numerous times to call CT now that patient is agreeable. Unable to reach anyone at this time. Will try again as it says voicemail is full.
--- NOTE | 2025-01-24 02:17 | PC.NURSE ---
Mauro strauss called within a few minutes of notifying patient and CT that he would be going for a scan. This nurse explained to patient that we would have to wait as an emergent situation had risen and we could not leave the floor. During the mauro strauss and attempts to transport patient from another floor to the ICU, patient became very upset and agitated. He ripped telemetry off, is upset and is now refusing monitoring, or to get in bed.
--- NOTE | 2025-01-24 03:00 | CTR_ITS ---
PROCEDURE INFORMATION: Exam: CT Head Without Contrast Exam date and time: 01/24/2025 4:46 AM Age: 49 years old Clinical indication: Other: Infarct; Additional info: Parietal infarct? TECHNIQUE: Imaging protocol: Computed tomography of the head without contrast. Radiation optimization: All CT scans at this facility use at least one of these dose optimization techniques: automated exposure control; mA and/or kV adjustment per patient size (includes targeted exams where dose is matched to clinical indication); or iterative reconstruction. COMPARISON: CT head wo con* [id number] 05/10/2021 12:24 PM RADIATION DOSE METRICS: Total DLP (mGy-cm): 1144.6 FINDINGS: Brain: Mild diffuse cerebral atrophy and moderate white matter microangiopathic chronic ischemia in both hemispheres. No CT evidence of acute infarct, hemorrhage, mass or mass effect. There is an old right parietal infarct with encephalomalacia. There are fine gyral calcifications adjacent to the infarcts likely representing the sequelae of laminar necrosis. Old, left basal ganglia lacunar infarcts. Cerebral ventricles: No ventriculomegaly. Paranasal sinuses: Visualized sinuses are unremarkable. No fluid levels. Mastoid air cells: Bilateral mastoiditis. Bones: Unremarkable. No acute fracture. Soft tissues: Unremarkable. CT/CT head wo con* [id number] IMPRESSION: 1. White matter microangiopathic chronic ischemia, slightly advanced for age. No CT evidence of acute brain injury. 2. 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 3. Bilateral mastoiditis.
[2025-01-24] MEDS: linezolid premix 600 MG/300 ML PREMIX 300 MG IV ×2 (04:00→16:34)
[2025-01-24] MEDS: metoprolol succinate ER (24 HR) 25 mg Tablet PO (05:26)
--- NOTE | 2025-01-24 05:41 | PC.NURSE ---
[facility] called to see if patient was prepped for stress test. Patient claims he had numerous caffeine beverages yesterday during day shift and per staff in nuc med patient has to be caffeine free for 24 hours. Patient admitted approximately 24 hours ago. Patients heartrate also not controlled and was elevated to 110 at the time of the call with [employer]. Per staff the test will be rescheduled for 01/25/25. He is to remain caffeine free until the test is complete and NPO at midnight. Patient has been NPO since midnight of this shift until confirmation of whether the test would be completed this morning.
[2025-01-24 06:30] LABS: Hematocrit 47.9 % (37-53); Hemoglobin 15.40 g/dL (11.27-16.99); Mean Corpuscular HGB Conc 32.2 g/dL (30-55); Mean Corpuscular Hemoglobin 32.0 pg (27-33); Mean Corpuscular Volume 99.6 fl (82-101); Nucleated Red Blood Cells % 0 %; Platelet Count 250 10^3/cmm (157-399); Red Blood Count 4.81 10^6/uL (3.85-5.65); White Blood Count 6.85 10^3/uL (3.29-11.43)
[2025-01-24 06:42] LABS: Partial Thromboplastin Time 51.0 SECONDS (23.9-36.7)
[2025-01-24 06:46] LABS: Alanine Aminotransferase 8 U/L (0-41); Albumin Level 3.7 g/dL (3.5-5.2); Alkaline Phosphatase 265 U/L (40-130); Anion Gap 24.3 (5-19); Aspartate Amino Transferase 12 U/L (0-40); Blood Urea Nitrogen 50 mg/dL (6-20); Calcium 8.9 mg/dL (8.5-10.5); Carbon Dioxide 24 mmol/L (22-29); Chloride 89 mmol/L (98-107); Creatinine Clr Calc Pharmacy 8.8101; Globulin 3.5 g/dL (1.3-4.6); Glucose 74 mg/dL (65-115); Osmolality Calculated 286 mOsm/kg (285-295); Potassium 5.3 mmol/L (3.5-5.1); Sodium 132 mmol/L (136-145); Total Protein 7.2 g/dL (6.6-8.7)
--- NOTE | 2025-01-24 06:50 | PC.NURSE ---
PTT resulted. Titrated per protocol and placed new timed PTT q6h.
[2025-01-24 07:00] LABS: Procalcitonin 1.95 ng/mL (0-0.5)
[2025-01-24] MEDS: heparin drip 25,000 UNIT/500 ML PREMIX 22 UNIT IV (08:59)
[2025-01-24] MEDS: aztreonam 1,000 MG in sodium chloride 0.9% (plus) 50 ML 100 MG IV ×2 (09:00→21:53)
--- NOTE | 2025-01-24 09:56 | P.PN_ITS ---
Vitals/I&O/Wt Last Vital Signs Temp 98.4 F 01/24/25 04:30 Pulse 97 01/24/25 09:45 Resp 28 H 01/24/25 09:45 BP 183/104 01/24/25 09:45 Pulse Ox 83 L 01/24/25 09:45 O2 Del Method Nasal Cannula 01/23/25 09:30 O2 Flow Rate 3 01/23/25 09:30 01/23/25 01/24/25 01/24/25 22:59 06:59 14:59 Intake Total 1007.083 / 1653.166 624.000 / 2277.166 338.917 / 338.917 Balance 1007.083 / -764.834 624.000 / -140.834 338.917 / 338.917 Weight last 48 hrs Weight 86.272 kg Weight 88.1 kg Weight 88.4 kg Weight 88.451 kg Weight 83.915 kg Data 01/25/25 04:47 01/25/25 04:47 Micro: Microbiology 01/23/25 05:07 Blood Culture - Preliminary Blood NEGATIVE TO DATE 01/23/25 05:05 Blood Culture - Preliminary Blood NEGATIVE TO DATE A&P PDMP PDMP Reviewed: Not Reviewed Attestations 2 Medical Necessity Statement*: per medicine Coding Level of Care Code Acute Code for Chg Alan
[2025-01-24] MEDS: heparin, porcine 1,000 unit/mL INJ 10 mL 1000 UNIT IV (10:10)
[2025-01-24] MEDS: heparin, porcine 1,000 unit/mL INJ 10 mL 10000 UNIT INTRACATH (12:46)
[2025-01-24 13:23] LABS: Partial Thromboplastin Time 193.8 SECONDS (23.9-36.7)
--- NOTE | 2025-01-24 13:28 | PC.HD ---
Patient requested sign-off of dialysis treatment 38 minutes early. Patient did not really give a reason as to why he wanted to terminate, he just said I'm just done. [employer] LAMBERT signed by patient.
--- NOTE | 2025-01-24 14:16 | PC.NURSE ---
PTT came back high, notified Dr. Stack, received orders to stop gtt and check ptt again in 4 hrs.
--- NOTE | 2025-01-24 16:21 | P.PN_ITS ---
Subjective 2 Subjective: Patient was seen this morning, denies any chest pain, no shortness of breath, no cough, no lightheadedness, dizziness, reports that swelling/warmth/tenderness right arm is improving Vitals/I&O/Wt Last Vital Signs Temp 98.2 F 01/24/25 13:26 Pulse 99 01/24/25 15:45 Resp 19 H 01/24/25 13:26 BP 112/81 01/24/25 16:00 Pulse Ox 97 01/24/25 16:00 O2 Del Method Nasal Cannula 01/24/25 14:37 O2 Flow Rate 2 01/24/25 14:37 01/24/25 01/24/25 01/24/25 06:59 14:59 22:59 Intake Total 624.000 / 2277.166 1078.917 / 1078.917 Output Total 2756 / 2756 Balance 624.000 / -140.834 -1677.083 / -1677.083 Weight last 48 hrs Weight 87 kg Weight 86.272 kg Weight 88.1 kg Weight 88.4 kg Weight 88.451 kg Weight 83.915 kg Physical Exam 2 Const: COMMON NORMALS: no acute distress and patient oriented x3 Resp: COMMON NORMALS: normal respiratory effort, No retractions, No use of accessory muscles and clear to auscultation bilaterally AUSCULTATION: clear to auscultation bilaterally Cardio: COMMON NORMALS: regular rate, regular rhythm, S1 normal heart sound present and S2 normal heart sound present RATE: regular rate RHYTHM: r egular rhythm HEART SOUNDS: S1 normal heart sound present and S2 normal heart sound present GI: COMMON NORMALS: Normal to inspection, nondistended, normoactive bowel sounds present and non-tender Extremity: COMMON NORMALS: no pedal edema NARRATIVE EXTREMITY EXAM: Right arm, swelling/erythema/tenderness/warmth significantly improving, throughout forearm, and arm, radial pulses are palpable Neuro: COMMON NORMALS: patient oriented x3 Psych: COMMON NORMALS: mental status grossly normal Data 01/24/25 06:20 01/24/25 06:20 Micro: Microbiology 01/23/25 05:07 Blood Culture - Preliminary Blood NEGATIVE TO DATE 01/23/25 05:05 Blood Culture - Preliminary Blood NEGATIVE TO DATE A&P Assessment and plan 1. Chronic atrial fibrillation: 2. ESRD on dialysis: 3. Chronic hypoxemic respiratory failure: 4. Diastolic CHF: 5. Benign hypertension: 6. Hyperkalemia: 7. Right arm cellulitis: Plan: Cat scratch disease - No visual deficits Plan - Ultrasound abdomen no acute findings - Bartonella titers - Azithromycin Right arm cellulitis -With recent history of complications with dialysis access site - Will do CTA right upper [place] [id number] IMPRESSION: 1. The distal right subclavian vein and right brachiocephalic vein do not enhance at the level of the central venous catheter, consistent with occlusion. Extensive subcutaneous and deep collateral vessels noted in the right chest wall and right arm. 2. Moderate swelling and subcutaneous edema is noted throughout right upper extremity, with most marked subcutaneous edema dorsally in the forearm. Findings are compatible with cellulitis and/or venous congestion. 3. Reduced enhancement of the distal forearm arteries with absent enhancement of hand arteries. The finding may relate to a delayed contrast bolus, but distal arterial occlusion remains a possibility. If there is clinical concern for ischemia to the hand, sonographic assessment of the distal arteries is recommended. - Follow-up blood cultures - zyvox - Aztreonam Right arm - History of recent dialysis access complication, and failure - [facility], by Dr. SEWELL, by vascular [place] [id number] IMPRESSION: 1. The distal right subclavian vein and right brachiocephalic vein do not enhance at the level of the central venous catheter, consistent with occlusion. Extensive subcutaneous and deep collateral vessels noted in the right chest wall and right arm. 2. Moderate swelling and subcutaneous edema is noted throughout right upper extremity, with most marked subcutaneous edema dorsally in the forearm. Findings are compatible with cellulitis and/or venous congestion. 3. Reduced enhancement of the distal forearm arteries with absent enhancement of hand arteries. The finding may relate to a delayed contrast bolus, but distal arterial occlusion remains a possibility. If there is clinical concern for ischemia to the hand, sonographic assessment of the distal arteries is recommended. - Patient does not want to go back to [facility] Right upper extremity DVT FINDINGS: Age indeterminate nonoccluding thrombus of the IJV, Innominate V, Subclavian V, Axillary V, and brachial vein. Soft tissue edema. Heparin drip Atrial fibrillation Metoprolol Heparin drip NSTEMI - No chest pain complaints -Aspirin, statin - Serial EKGs, serial troponins, telemetry monitoring -Cardiac echo - Cardiology consulted - Stress test tomorrow - Cardiac echo Hyperkalemia, status post dialysis, potassium 4.5, resolved End-stage renal disease, received dialysis History of CVA CT/CT head wo con* [id number] IMPRESSION: 1. White matter microangiopathic chronic ischemia, slightly advanced for age. No CT evidence of acute brain injury. 2. 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 3. Bilateral mastoiditis. - No focal neurologic deficits - Aspirin, statin - Heparin drip Full code Heparin drip PDMP PDMP Reviewed: Not Reviewed Attestations 2 Medical Necessity Statement*: Patient requires plantation for right arm cellulitis, cat scratch disease, right arm DVT, NSTEMI Diagnoses Chronic atrial fibrillation I48.20 ESRD on dialysis N18.6; Z99.2 Chronic hypoxemic respiratory failure J96.11 Diastolic CHF I50.30 Benign hypertension I10 Hyperkalemia E87.5 Right arm cellulitis L03.113
--- NOTE | 2025-01-24 16:39 | P.PN_ITS ---
<Statement entered by Pauilno Amos MD - 01/25/25 22:04> Patient was evaluated and cared for in conjunction with an advanced practice practitioner. I personally examined the patient and reviewed the chart and all pertinent data including imaging, telemetry, and laboratory results. I discussed the patient in detail with the advanced practice practitioner. Please see their note for complete H&P testing result and agreed upon plan of care for the patient. Subjective 2 Subjective: He had caffeine, stress test postponed until tomorrow. No chest pain or shortness of breath. Potassium 5.3. Vitals/I&O/Wt Last Vital Signs Temp 98.2 F 01/24/25 13:26 Pulse 99 01/24/25 15:45 Resp 19 H 01/24/25 13:26 BP 112/81 01/24/25 16:00 Pulse Ox 97 01/24/25 16:00 O2 Del Method Nasal Cannula 01/24/25 14:37 O2 Flow Rate 2 01/24/25 14:37 01/24/25 01/24/25 01/24/25 06:59 14:59 22:59 Intake Total 624.000 / 2277.166 1078.917 / 1078.917 Output Total 2756 / 2756 Balance 624.000 / -140.834 -1677.083 / -1677.083 Weight last 48 hrs Weight 191 lb 12.835 oz Weight 190 lb 3.139 oz Weight 194 lb 3.636 oz Weight 194 lb 14.218 oz Weight 195 lb Weight 185 lb Physical Exam 2 Const: COMMON NORMALS: no acute distress and patient oriented x3 GENERAL APPEARANCE: cooperative and comfortable ORIENTATION/CONSCIOUSNESS: Yes awake, Yes oriented to person, Yes oriented to place and Yes oriented to time Chest: COMMONS NORMALS: normal inspection of the chest and normal palpation of entire chest wall CHEST: Yes Symmetrical chest wall rise Resp: COMMON NORMALS: normal respiratory effort, No retractions, No use of accessory muscles and clear to auscultation bilaterally EFFORT & INSPECTION: Yes symmetric chest movement AUSCULTATION: clear to auscultation bilaterally Cardio: COMMON NORMALS: regular rate, regular rhythm, S1 normal heart sound present, S2 normal heart sound present, No gallops present (Cardio), No clicks present (Cardio), No murmurs present (Cardio) and No rub (Cardio) RATE: r egular rate RHYTHM: regular rhythm HEART SOUNDS: S1 normal heart sound present and S2 normal heart sound present PERIPHERAL PULSES: radial pulses present Extremity: COMMON NORMALS: no pedal edema Neuro: COMMON NORMALS: patient oriented x3 and moves all extremities S ENSORIUM/ORIENTATION: Yes oriented to person, Yes oriented to place and Yes oriented to time Data 01/24/25 06:20 01/24/25 06:20 Micro: Microbiology 01/23/25 05:07 Blood Culture - Preliminary Blood NEGATIVE TO DATE 01/23/25 05:05 Blood Culture - Preliminary Blood NEGATIVE TO DATE A&P Assessment and plan 1. Chronic atrial fibrillation: 2. Systolic CHF, acute: 3. Benign hypertension: 4. End stage renal disease on dialysis: 5. Hyperkalemia: Plan: Diltiazem infusion discontinued during the night. Currently on metoprolol succinate 25 mg daily. Blood pressures have been soft at times, maintaining ventricular rates less than 100bpm, will hold off on adding long acting diltiazem. Stress test tomorrow. Continue aspirin, statin, heparin. PDMP PDMP Reviewed: Not Reviewed Attestations 2 Medical Necessity Statement*: ischemic workup Coding Level of Care Code Acute Code for [facility] Diagnoses Chronic atrial fibrillation I48.20 Systolic CHF, acute I50.21 Benign hypertension I10 End stage renal disease on dialysis N18.6; Z99.2 Hyperkalemia E87.5
[2025-01-24 18:05] LABS: Partial Thromboplastin Time 36.3 SECONDS (23.9-36.7)
--- NOTE | 2025-01-24 18:49 | PC.NURSE ---
PTT resulted low, notified Dr. Stack, received orders to resume Heparin gtt at 15mL/hr. Recheck ptt in 4 hrs, orders placed.
--- NOTE | 2025-01-24 20:22 | PC.NURSE ---
Addendum entered by MESERET Cortez 01/24/25 20:59: Patient taken to CSU 5. SHAWNA Hernandez at bedside. Patient taken in bed on oxygen with mobile monitoring. Original Note: Report taken by SHAWNA Hernandez at 2031
[2025-01-25 00:02] LABS: Partial Thromboplastin Time 31.1 SECONDS (23.9-36.7)
--- NOTE | 2025-01-25 00:35 | PC.NURSE ---
adjusted MAR on hep gtt per what was on pump, when arrived from ICU to CSU.
[2025-01-25] MEDS: heparin 5,000 unit/mL INJ 1 mL IVP (00:44)
[2025-01-25 03:33] VITALS: BP 124/79; PULSE 98; RESP 24; O2SAT 90
[2025-01-25 03:34] VITALS: BP 124/79; PULSE 93; RESP 19
[2025-01-25] MEDS: linezolid premix 600 MG/300 ML PREMIX 300 MG IV (03:40)
[2025-01-25 03:44] VITALS: BP 124/79; PULSE 96; RESP 20
[2025-01-25] MEDS: metoprolol succinate ER (24 HR) 25 mg Tablet PO (04:48)
[2025-01-25 04:53] LABS: Hematocrit 46.1 % (37-53); Hemoglobin 14.40 g/dL (11.27-16.99); Mean Corpuscular HGB Conc 31.2 g/dL (30-55); Mean Corpuscular Hemoglobin 32.0 pg (27-33); Mean Corpuscular Volume 102.4 fl (82-101); Nucleated Red Blood Cells % 0 %; Platelet Count 226 10^3/cmm (157-399); Red Blood Count 4.50 10^6/uL (3.85-5.65); White Blood Count 6.37 10^3/uL (3.29-11.43)
[2025-01-25 05:16] LABS: Alanine Aminotransferase 7 U/L (0-41); Albumin Level 3.3 g/dL (3.5-5.2); Alkaline Phosphatase 228 U/L (40-130); Anion Gap 19.7 (5-19); Aspartate Amino Transferase 13 U/L (0-40); Blood Urea Nitrogen 39 mg/dL (6-20); Calcium 8.7 mg/dL (8.5-10.5); Carbon Dioxide 26 mmol/L (22-29); Chloride 94 mmol/L (98-107); Creatinine Clr Calc Pharmacy 10.9008; Globulin 3.2 g/dL (1.3-4.6); Glucose 72 mg/dL (65-115); Osmolality Calculated 288 mOsm/kg (285-295); Potassium 4.7 mmol/L (3.5-5.1); Sodium 135 mmol/L (136-145); Total Protein 6.5 g/dL (6.6-8.7)
[2025-01-25 05:23] LABS: Procalcitonin 1.65 ng/mL (0-0.5)
[2025-01-25 05:28] VITALS: BMI 30.3
[2025-01-25 05:51] LABS: Partial Thromboplastin Time > 250.0 SECONDS (23.9-36.7)
[2025-01-25] MEDS: aminophylline 25 mg/mL SDV 20 mL IVP (07:28)
[2025-01-25 07:30] VITALS: BP 127/84; PULSE 102
--- NOTE | 2025-01-25 08:38 | P.PN_ITS ---
<Statement entered by Paulino Amos MD - 01/25/25 21:29> Patient was evaluated and cared for in conjunction with an advanced practice practitioner. I personally examined the patient and reviewed the chart and all pertinent data including imaging, telemetry, and laboratory results. I discussed the patient in detail with the advanced practice practitioner. Please see their note for complete H&P testing result and agreed upon plan of care for the patient. Subjective 2 Subjective: He notes significant shortness of breath with exertion. He had stress test today. No chest pain since Thursday. Echocardiogram showed normal LVEF. He had dialysis on 01/23 and 01/24, removing 2L each time. Some uncontrolled ventricular rates, will add on diltiazem PO today. Blood pressure ranging 93-127 systolic. Vitals/I&O/Wt Last Vital Signs Temp 97.8 F 01/24/25 23:32 Pulse 102 H 01/25/25 07:30 Resp 20 H 01/25/25 03:44 BP 127/84 01/25/25 07:30 Pulse Ox 90 01/25/25 03:33 O2 Del Method Nasal Cannula 01/24/25 23:32 O2 Flow Rate 2 01/24/25 14:37 01/24/25 01/25/25 01/25/25 22:59 06:59 14:59 Intake Total 848.867 / 2393.201 465.417 / 2393.201 Balance 848.867 / -362.799 465.417 / -362.799 Weight last 48 hrs Weight 199 lb 8.293 oz Weight 191 lb 12.835 oz Weight 190 lb 3.139 oz Weight 194 lb 3.636 oz Physical Exam 2 Const: COMMON NORMALS: no acute distress and patient oriented x3 GENERAL APPEARANCE: cooperative and comfortable ORIENTATION/CONSCIOUSNESS: Yes awake, Yes oriented to person, Yes oriented to place and Yes oriented to time Chest: COMMONS NORMALS: normal inspection of the chest and normal palpation of entire chest wall CHEST: Yes Symmetrical chest wall rise Resp: COMMON NORMALS: normal respiratory effort, No retractions, No use of accessory muscles and clear to auscultation bilaterally EFFORT & INSPECTION: Yes symmetric chest movement AUSCULTATION: clear to auscultation bilaterally Cardio: COMMON NORMALS: regular rate, S1 normal heart sound present, S2 normal heart sound present, No gallops present (Cardio), No clicks present (Cardio), No murmurs present (Cardio) and No rub (Cardio) RATE: regular rate RHYTHM: a bnormal rhythm irregularly irregular HEART SOUNDS: S1 normal heart sound present and S2 normal heart sound present PERIPHERAL PULSES: radial pulses present Extremity: COMMON NORMALS: no pedal edema Neuro: COMMON NORMALS: patient oriented x3 and moves all extremities S ENSORIUM/ORIENTATION: Yes oriented to person, Yes oriented to place and Yes oriented to time Data 01/25/25 04:47 01/25/25 04:47 Micro: Microbiology 01/23/25 05:07 Blood Culture - Preliminary Blood NEGATIVE TO DATE 01/23/25 05:05 Blood Culture - Preliminary Blood NEGATIVE TO DATE A&P Assessment and plan 1. Chronic atrial fibrillation: 2. Benign hypertension: 3. Diastolic CHF: 4. ESRD on dialysis: Plan: Will await read on stress test performed this morning for further plan. For now continue aspirin, statin, metoprolol succinate, heparin infusion for anticoagulation given the chronic atrial fibrillation. Adding on diltiazem 120mg daily at noon for better ventricular rate control. PDMP PDMP Reviewed: Not Reviewed Attestations 2 Medical Necessity Statement*: ischemic workup Coding Level of Care Code Acute Code for [facility] Diagnoses Chronic atrial fibrillation I48.20 Benign hypertension I10 Diastolic CHF I50.30 ESRD on dialysis N18.6; Z99.2
[2025-01-25] MEDS: aztreonam 1,000 MG in sodium chloride 0.9% (plus) 50 ML 100 MG IV (09:07)
[2025-01-25 09:22] LABS: Partial Thromboplastin Time 34.7 SECONDS (23.9-36.7)
--- NOTE | 2025-01-25 09:57 | PC.NURSE ---
Per Dr Stack, do not restart heparin, doctor will switch to [facility].
--- NOTE | 2025-01-25 10:58 | P.PN_ITS ---
Subjective 2 Subjective: no new c/o Medications: Reviewed: Yes Vitals/I&O/Wt Last Vital Signs Temp 97.8 F 01/24/25 23:32 Pulse 102 H 01/25/25 07:30 Resp 20 H 01/25/25 03:44 BP 127/84 01/25/25 07:30 Pulse Ox 90 01/25/25 03:33 O2 Del Method Nasal Cannula 01/24/25 23:32 O2 Flow Rate 2 01/24/25 14:37 01/24/25 01/25/25 01/25/25 22:59 06:59 14:59 Intake Total 848.867 / 1927.784 465.417 / 2393.201 530 / 530 Balance 848.867 / -828.216 465.417 / -362.799 530 / 530 Weight last 48 hrs Weight 90.5 kg Weight 87 kg Weight 86.272 kg Physical Exam 2 Narrative: Patient is awake alert, no acute distress On room air No JVD PERRLA S1 Lungs clear bilaterally Abdomen soft nontender Extremities no pedal edema No skin rash Data 01/25/25 04:47 01/25/25 04:47 A&P Assessment and plan 1. ESRD on dialysis: Plan: 1. End-stage renal disease: On MWF schedule,hd today 2. Severe hyperkalemia, low K diet and 1K dialysate with HD 3. Chest pain with elevated troponin, s/p stress test 4. A-fib with RVR,s/p Cardizem drip Patient evaluated using audiovisual cart. Time spent 40 minutes. PDMP PDMP Reviewed: Not Reviewed Attestations 2 Medical Necessity Statement*: per leo Coding Level of Care Code Acute Code for [facility] Diagnoses ESRD on dialysis N18.6; Z99.2
--- NOTE | 2025-01-25 11:56 | PM.DCS ---
Discharge Providers Date of Admission: 01/23/25 02:40 Date of Discharge: January 25, 2025 Attending Provider at Admission: Pau Koehler MD Attending Provider at Discharge: Nish Stack MD Primary Care Provider: Ras Joy Diagnoses at Discharge Discharge Diagnosis 1. ESRD on dialysis: Reason for Visit Reason for Visit: fast hr Hospital Course Hospital Course This is a 49-year-old male with a past medical history of hypertension, end-stage renal disease on dialysis who presents to [facility] due to swelling of right arm For right arm swelling, multifactorial, right arm cellulitis, cat scratch disease, rule right upper extremity DVT, right arm breakdown/complication of dialysis access site Cat scratch disease - No visual deficits, ultrasound abdomen no acute findings - Bartonella titers discharge - IV azithromycin during hospitalization, discharged on p.o. azithromycin Right arm cellulitis -With recent history of complications with dialysis access site - CT[place] right [place] [id number] IMPRESSION: 1. The distal right subclavian vein and right brachiocephalic vein do not enhance at the level of the central venous catheter, consistent with occlusion. Extensive subcutaneous and deep collateral vessels noted in the right chest wall and right arm. 2. Moderate swelling and subcutaneous edema is noted throughout right upper extremity, with most marked subcutaneous edema dorsally in the forearm. Findings are compatible with cellulitis and/or venous congestion. 3. Reduced enhancement of the distal forearm arteries with absent enhancement of hand arteries. The finding may relate to a delayed contrast bolus, but distal arterial occlusion remains a possibility. If there is clinical concern for ischemia to the hand, sonographic assessment of the distal arteries is recommended. - Follow-up blood cultures, so far no growth remains afebrile - Managed with Zyvox, aztreonam as inpatient - Will discharge on p.o. Zyvox, and Flagyl with a close follow-up with primary care provider Right arm - History of recent dialysis access complication, and failure - [facility], by Dr. SEWELL, vascular [place] [id number] IMPRESSION: 1. The distal right subclavian vein and right brachiocephalic vein do not enhance at the level of the central venous catheter, consistent with occlusion. Extensive subcutaneous and deep collateral vessels noted in the right chest wall and right arm. 2. Moderate swelling and subcutaneous edema is noted throughout right upper extremity, with most marked subcutaneous edema dorsally in the forearm. Findings are compatible with cellulitis and/or venous congestion. 3. Reduced enhancement of the distal forearm arteries with absent enhancement of hand arteries. The finding may relate to a delayed contrast bolus, but distal arterial occlusion remains a possibility. If there is clinical concern for ischemia to the hand, sonographic assessment of the distal arteries is recommended. -Spoke to patient about CT scan findings, he tells me that he had occlusion, breakdown, complication of his dialysis access site in his right arm, thus they had to put in a temporary dialysis catheter in the right chest -He tells me that he since then, and over the last month has had right arm swelling, he was told this would persist given the breakdown of his occlusion of his dialysis access site, but after the cat scratch it subsequently worsened - Patient does not want to go back to [facility] for follow-up - Will refer him to follow-up with [facility] - Has good radial ulnar pulses - Swelling has significantly improved, has good range of motion, right shoulder, right elbow, right forearm, Right upper extremity DVT FINDINGS: Age indeterminate nonoccluding thrombus of the IJV, Innominate V, Subclavian V, Axillary V, and brachial vein. Soft tissue edema. Managed with IV heparin during hospitalization, patient on day of discharge declined further IV anticoagulant therapy switch to Eliquis - Discussed with patient the risk and benefits of Eliquis, risk of bleeding, he voiced understanding, all question answered, agreed to proceed Atrial fibrillation, required February during his hospitalization, transition to p.o. Cardizem, metoprolol P.o. metoprolol, Cardizem Discharged on Eliquis NSTEMI - No chest pain complaints -Aspirin, statin - Serial EKGs, serial troponins, telemetry monitoring -Cardiac echo - Cardiology consulted - Underwent stress testing - Cardiac echo CONCLUSIONS Normal left ventricular size, systolic function and wall thickness, abnormal septal motion consistent with conduction abnormality. Left ventricular ejection fraction is estimated at 60 %. Normal diastolic function. Biatrial mild enlargment Moderate aortic valve calcification. Mild aortic valve stenosis, mean gradient 5.9 mmHg, ENEDELIA 2 cm squared. There is no pericardial effusion. Right atrial pressure is around 5 mm of mercury. Hyperkalemia, status post dialysis, potassium 4.5, resolved End-stage renal disease, received dialysis, overall clinically improved History of CVA CT/CT head wo con* [id number] IMPRESSION: 1. White matter microangiopathic chronic ischemia, slightly advanced for age. No CT evidence of acute brain injury. 2. 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 3. Bilateral mastoiditis - Possible embolic stroke associated with history of atrial fibrillation? - No focal neurologic deficits, no focal weakness, no slurred words, no focal weakness, -Timeframe of strokes unknown - Aspirin, statin on discharge - Eliquis on discharge -Patient was advised if any strokelike symptoms, to call 91 [phone] Physical Exam Const: COMMON NORMALS: no acute distress and patient oriented x3 Chest: OTHER: Right chest, dialysis catheter in place, Resp: COMMON NORMALS: normal respiratory effort, No retractions, No use of accessory muscles and clear to auscultation bilaterally AUSCULTATION: clear to auscultation bilaterally Cardio: COMMON NORMALS: regular rate, regular rhythm, S1 normal heart sound present and S2 normal heart sound present RATE: regular rate RHYTHM: regular rhythm HEART SOUNDS: S1 normal heart sound present and S2 normal heart sound present GI: COMMON NORMALS: Normal to inspection, nondistended, normoactive bowel sounds present and non-tender Extremity: COMMON NORMALS: no pedal edema NARRATIVE EXTREMITY EXAM: Right arm, radial ulnar pulses palpable, good cap refill, good range of motion right hand, right elbow, right shoulder - Swelling significantly improved throughout forearm, arm - However swelling does persist in the right arm - Erythema/warmth/tenderness significantly improving - No palpable abscess, no lymphadenopathy Neuro: COMMON NORMALS: patient oriented x3, CN's II-XII intact bilaterally, moves all extremities and no focal motor deficits Psych: COMMON NORMALS: mental status grossly normal Discharge Data Studies Completed and Pending Completed Studies During Hospitalization Category Date Time Status CT angio upper extremity [place] [[place] [id number]] Cat Scan 01/23/25 14:[address] head wo con* [id number] Routine Cat Scan 01/24/25 03:00 Completed XR chest 1V portable [id number] Stat Exams 01/23/25 01:37 [place] [id number] Routine Ultrasound 01/23/25 06:11 Completed CV. echo complete* [id number] Routine Ultrasound 01/23/25 09:44 Completed US abdomen complete* [id number] Routine Ultrasound 01/23/25 10:01 Completed Pending at discharge Category Date Time Status Cardiac Stress Test MIBI [Sestamibi Stress Test Request Exams 01/23/25 09:44 Ordered ] Routine Sestamibi Stress Test Request Routine Exams 01/24/25 21:09 Ordered Bartonella DNA PCR Routine Lab 01/23/25 05:05 Received Bartonella Henselae AB w/Titer Routine Lab 01/23/25 05:05 Received Bartonella Species AB(IgG,IgM) Routine Lab 01/23/25 05:05 Received Blood Culture Stat Lab 01/23/25 05:07 Results C Reactive Protein AM LABS Lab 01/26/25 04:00 Ordered Complete Blood Count w/Auto AM LABS Lab 01/26/25 04:00 Ordered Comprehensive Metabolic Panel AM LABS Lab 01/26/25 04:00 Ordered Procalcitonin AM LABS Lab 01/26/25 04:00 Ordered NM julian perf SPECT r/s* [id number] Routine Nuc Med 01/25/25 21:09 Taken Radiology Impressions Chest X-Ray 01/23/25 01:37 IMPRESSION: No identified acute cardiopulmonary process. Unchanged cardiomegaly. Abdomen Ultrasound 01/23/25 10:01 Impression: 1. No cholelithiasis. 2. Cirrhotic liver. No mass identified. 3. Severe chronic medical renal disease. 4. Advanced atrophy RIGHT kidney. Diffuse cortical thinning LEFT kidney. Upper Extremity CTA 01/23/25 14:37 IMPRESSION: 1. The distal right subclavian vein and right brachiocephalic vein do not enhance at the level of the central venous catheter, consistent with occlusion. Extensive subcutaneous and deep collateral vessels noted in the right chest wall and right arm. 2. Moderate swelling and subcutaneous edema is noted throughout right upper extremity, with most marked subcutaneous edema dorsally in the forearm. Findings are compatible with cellulitis and/or venous congestion. 3. Reduced enhancement of the distal forearm arteries with absent enhancement of hand arteries. The finding may relate to a delayed contrast bolus, but distal arterial occlusion remains a possibility. If there is clinical concern for ischemia to the hand, sonographic assessment of the distal arteries is recommended. 4. 4 cm right parietal hypodensity representing subacute or chronic infarct. 5. Findings were discussed with NISH STACK at 01/23/2025 6:[address] 01/24/25 03:00 IMPRESSION: 1. White matter microangiopathic chronic ischemia, slightly advanced for age. No CT evidence of acute brain injury. 2. 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 3. Bilateral mastoiditis. Laboratory Results WBC 6.37 10^3/uL (3.29-11.43) 01/25/25 04:47 RBC 4.50 10^6/uL (3.85-5.65) 01/25/25 04:47 Hgb 14.40 g/dL (11.27-16.99) 01/25/25 04:47 Hct 46.1 % (37-53) 01/25/25 04:47 MCV 102.4 fl (82-101) H 01/25/25 04:47 MCH 32.0 pg (27-33) 01/25/25 04:47 MCHC 31.2 g/dL (30-55) 01/25/25 04:47 RDW 14.5 % (12.1-15.1) 01/25/25 04:47 Plt Count 226 10^3/cmm (157-399) 01/25/25 04:47 MPV 9.7 fL (7.4-10.4) 01/25/25 04:47 Neut % (Auto) 67.1 % 01/25/25 04:47 Lymph % (Auto) 13.2 % 01/25/25 04:47 Luna % (Auto) 13.8 % 01/25/25 04:47 Eos % (Auto) 4.7 % 01/25/25 04:47 Baso % (Auto) 0.9 % 01/25/25 04:47 Neut # (Auto) 4.27 10^3/uL (1.8-7.7) 01/25/25 04:47 Lymph # (Auto) 0.8 10^3/uL (0.8-4.8) 01/25/25 04:47 Luna # (Auto) 0.9 10^3/uL (0.2-0.9) 01/25/25 04:47 Eos # (Auto) 0.3 10^3/uL (0.0-0.8) 01/25/25 04:47 Baso # (Auto) 0.1 10^3/uL (0.0-0.1) 01/25/25 04:47 Nucleated RBC % (auto) 0 % 01/25/25 04:47 Nucleated RBCs # 0.0 /100WBC 01/25/25 04:47 ESR 32 mm/hr (0-10) H 01/23/25 05:05 APTT 34.7 SECONDS (23.9-36.7) D 01/25/25 08:56 Specimen Type Arterial 01/23/25 16:00 Sample Site Radial, left 01/23/25 16:00 ABG pH 7.40 (7.35-7.45) 01/23/25 16:00 ABG pCO2 41.0 mmHg (35-45) 01/23/25 16:00 ABG pO2 97.3 mmHg (80.0-100.0) 01/23/25 16:00 ABG PO2/FiO2 Ratio 347 01/23/25 16:00 ABG HCO3 25.1 mmol/L (22-26) 01/23/25 16:00 ABG O2 Saturation 97.7 01/23/25 16:00 ABG Base Excess 0.2 mmol/L (-2.0-2.0) 01/23/25 16:00 Shantanu Test Pos 01/23/25 16:00 A-a O2 Gradient 6.5 mmHg (5-10) 01/23/25 16:00 Hematocrit 49.7 % (42-52) 01/23/25 16:00 Hgb O2 Saturation 95.5 % (95-100) 01/23/25 16:00 Carboxyhemoglobin 1.3 %THgb (0.4-20.1) 01/23/25 16:00 Methemoglobin 0.9 % (0.4-1.5) 01/23/25 16:00 Total Hemoglobin 16.2 g/dL (14-18) 01/23/25 16:00 Sodium 135.0 mmol/L (131-143) 01/23/25 16:00 Potassium 4.4 mmol/L (3.5-5.0) 01/23/25 16:00 Glucose 102.0 mg/dL (70-115) 01/23/25 16:00 Ionized Calcium 1.1 mmol/L (1.1-1.4) 01/23/25 16:00 O2 Delivery Device Nc 01/23/25 16:00 O2 Liters/Min 2.0 % 01/23/25 16:00 FiO2 28.0 % 01/23/25 16:00 Reimbursement Representative ID Gd 01/23/25 16:00 Sodium 135 mmol/L (136-145) L 01/25/25 04:47 Potassium 4.7 mmol/L (3.5-5.1) 01/25/25 04:47 Chloride 94 mmol/L (98-107) L 01/25/25 04:47 Carbon Dioxide 26 mmol/L (22-29) 01/25/25 04:47 Anion Gap 19.7 (5-19) H 01/25/25 04:47 BUN 39 mg/dL (6-20) H 01/25/25 04:47 Creatinine 8.6 mg/dL (0.7-1.2) H* 01/25/25 04:47 GFR Calculation 6.6 mL/min (90-130) L 01/25/25 04:47 Glucose 72 mg/dL (65-115) 01/25/25 04:47 POC Glucose 111 mg/dL (70-110) H 01/25/25 11:14 Calculated Osmolality 288 mOsm/kg (285-295) 01/25/25 04:47 Calcium 8.7 mg/dL (8.5-10.5) 01/25/25 04:47 Phosphorus 6.1 mg/dL (2.5-4.5) H 01/23/25 05:05 Magnesium 2.3 mg/dL (1.7-2.3) 01/23/25 05:05 Total Bilirubin 0.3 mg/dL (0.15-1.2) 01/25/25 04:47 AST 13 U/L (0-40) 01/25/25 04:47 ALT 7 U/L (0-41) 01/25/25 04:47 Alkaline Phosphatase 228 U/L (40-130) H 01/25/25 04:47 Ammonia 46 umol/L (16-60) 01/23/25 16:57 Troponin T Baseline 119 ng/L (0-15) H* 01/23/25 01:30 Troponin T 120 Minute 103.8 ng/L (0-15) H 01/23/25 03:14 Delta Troponin T -15.2 ABS# (0-10) L 01/23/25 03:14 Troponin T Hi Sens 6Hr 111.3 ng/L (0-15) H 01/23/25 07:18 Troponin T Hi Sens 6Hr Delta -7.7 ng/L (0-12) L 01/23/25 07:18 C-Reactive Protein 51.4 mg/L (0.0-4.9) H 01/25/25 04:47 NT-Pro-B Natriuret Pep 11886 pg/mL (0-125) H 01/23/25 01:30 Total Protein 6.5 g/dL (6.6-8.7) L 01/25/25 04:47 Albumin 3.3 g/dL (3.5-5.2) L 01/25/25 04:47 Globulin 3.2 g/dL (1.3-4.6) 01/25/25 04:47 Procalcitonin 1.65 ng/mL (0-0.5) H 01/25/25 04:47 Hep Bs Antigen Non-reactive (Nonreactive) 01/23/25 05:05 Hep Bs Antibody < 3.5 (11.5-1000) L 01/23/25 05:05 Hepatitis C Antibody Non-reactive (Nonreactive) 01/23/25 05:05 Vitals Last Vital Signs Temp 97.8 F 01/24/25 23:32 Pulse 102 H 01/25/25 07:30 Resp 20 H 01/25/25 03:44 BP 127/84 01/25/25 07:30 Pulse Ox 90 01/25/25 03:33 O2 Del Method Nasal Cannula 01/24/25 23:32 O2 Flow Rate 2 01/24/25 14:37 Discharge Plan Discharge Patient Disposition: Home Condition: Stable Prescriptions: New atorvastatin 40 mg Tablet 40 mg PO BEDTIME 30 Days Qty: 30 0RF diltiazem HCl 120 mg Capsule,Extended Release 24hr 120 mg PO DAILY 30 Days Qty: 30 0RF linezolid [Zyvox] 600 mg tablet 600 mg PO BID 7 Days Qty: 14 0RF azithromycin 250 mg Tablet 250 mg PO DAILY 3 Days Qty: 3 0RF metoprolol succinate 25 mg Tablet Extended Release 24 Hr 25 mg PO DAILY 30 Days Qty: 30 0RF aspirin 81 mg Tablet,Delayed Release (Dr/Ec) 81 mg PO DAILY 30 Days Qty: 30 0RF Eliquis 5 mg Tablet 5 mg PO BID@0900,2100 30 Days Qty: 60 0RF metronidazole 500 mg tablet 500 mg PO Q8H 7 Days Qty: 21 0RF Continued trazodone 150 mg tablet 150 mg PO BEDTIME furosemide 80 mg tablet 80 mg PO BID Qty: 60 0RF Discontinued metoprolol tartrate 50 mg Tablet 50 mg PO BID@899,2099 Qty: 60 0RF ciprofloxacin HCl 250 mg tablet 250 mg PO BID MDD x10d Referrals: Jhonatan Serrano MD, FACS [Referring] - 1 week Referral Note: dialysis access Paulino Amos MD [Physician, Cardiology] - 1-3 days Ras Joy [Primary Care Provider, [facility]] - 01/27/25 2:20 pm Referral Note: This appointment is scheduled with Malissa Espinoza, thank you! Discharge Diet: Cardiac Discharge Activity: Resume usual activity Patient Instructions: Metoprolol (By mouth) (Lopressor, Toprol XL), Diltiazem (By mouth) (Cardizem, Cardizem CD, Cardizem LA, Cardizem SR), Aspirin (By mouth), Metronidazole (By mouth) (Flagyl, Flagyl 375, Flagyl ER, Likmez), Azithromycin (By mouth) (Zithromax, Zithromax Tri-Mario, Zithromax..., Atorvastatin (By mouth), Linezolid (By mouth) (Zyvox), Apixaban (By mouth) (Eliquis), A-fib (Atrial Fibrillation) (DC), Cellulitis (GEN), Hypertension (DC), CHF Stoplight, Opioid Safety, Patient Portal & Ramonita Instructions Discharge Attestations Time Spent in Discharge Care*: greater than 30 min Status at Discharge: Cognitive status at discharge: cognitively intact, Behavioral status at discharge: cooperative, Quality Metrics Clinical Quality Measures [ No reported AMI, CVA or VTE this stay] Coding Level of Care Code 30276 Total time (in minutes) for Discharge: 45 Diagnoses ESRD on dialysis N18.6; Z99.2
[2025-01-25] MEDS: dilTIAZem ER (24HR) 120 mg Capsule PO (12:41)
--- NOTE | 2025-01-25 14:38 | PC.NURSE ---
Faxed referral paperwork to [facility] .
--- NOTE | 2025-01-25 16:34 | PC.SOCIAL ---
*IMM* copy of IMM was gave to patient, dated and initialed in chart.
--- NOTE | 2025-01-25 21:09 | NMCV_ITS ---
NM julian perf SPECT r/s* [id number] Leopoldo Schaefer Age: 49 Gender: M : 1975 Exam Date: 01/25/2025 06:36 Ordering Phys: Nish Stack MD Technologist: KRISTIN Unger Exam Location: [facility] Indications: cp STRESS TEST Please see separate stress test report in [facility] for full findings IMAGE PROTOCOL Rest/Stress 1 Lexiscan Day Radiopharmaceutical Dose (mCi) Administration Site Administered by Rest: Tc-99m 10.5 IV Hyacinth Omalley, BOOK RETAILER Sestamibi Stress:Tc-99m 33 IV Hyacinth Jimenezgle, BOOK RETAILER Sestamibi Rest: 25-Jan-2025 60 Discovery 630 Stress: 25-Jan-2025 30 Discovery 630 0.4mg Lexiscan. Supine position only as patient was unable to lay prone. SPECT RESULTS Technical Quality: Good Raw Data Analysis: Normal Image Corrections: No attenuation or motion correction applied Summed Stress Score: 0 Summed Rest Score: 0 Summed Difference Score: 0 PERFUSION FINDINGS SPECT images demonstrate homogeneous tracer distribution throughout the myocardium. FUNCTIONAL RESULTS (calculated via Gated SPECT) Stress Image LV EF (%): 50 Stress EDV (mL):140 TID: 1.28 Stress ESV (mL):70 FUNCTIONAL FINDINGS: Upper limits of normal left ventricular cavity size at rest. Mildly reduced left ventricular systolic function with an ejection fraction of 50%. IMPRESSIONS Myocardial perfusion imaging is normal with no evidence of infarction or ischemia. Upper limits of normal left ventricular cavity size at rest. Mildly reduced left ventricular systolic function with an ejection fraction of 50% (normal is 52% for men). Odell Fox MD, FACC (Electronically Signed) Final Date: 25 January 2025 12:42 S
[2025-01-26 19:18] LABS: Bartonella DNA PCR Source WHOLE BLOOD; Bartonella Henselae DNA PCR NOT DETECTED; Bartonella Quintana DNA PCR NOT DETECTED
[2025-01-26 21:38] LABS: Bartonella Henselae IgG AB Negative
[2025-01-31 20:04] LABS: Bartonella Henselae IgG AB NEGATIVE
== END 2025-01-25 17:05 | disposition home or self-care (01) | DRG 602 ==
LOC: ER 02:52 → ICU 03:16 → CSU 01-24 20:58
PROVIDERS: Hospitalist; Admitting Provider Internal Medicine; Emergency Provider Emergency Medicine; PCP Family Medicine; Visit Provider Family Medicine
DX: L03.113 Cellulitis of right upper limb (principal); N18.6 End stage renal disease; I13.2 Hypertensive heart and chronic kidney disease with heart failure and with stage 5 chronic kidney disease, or end stage renal disease; I50.30 Unspecified diastolic (congestive) heart failure; I48.20 Chronic atrial fibrillation, unspecified; A28.1 Cat-scratch disease; J96.11 Chronic respiratory failure with hypoxia; I1A.0 Resistant hypertension; J44.9 Chronic obstructive pulmonary disease, unspecified; F41.8 Other specified anxiety disorders; G47.33 Obstructive sleep apnea (adult) (pediatric); D63.1 Anemia in chronic kidney disease; K21.9 Gastro-esophageal reflux disease without esophagitis; G47.00 Insomnia, unspecified; F17.210 Nicotine dependence, cigarettes, uncomplicated; W55.03XA Scratched by cat, initial encounter; E87.5 Hyperkalemia; Z99.2 Dependence on renal dialysis; Z86.73 Personal history of transient ischemic attack (TIA), and cerebral infarction without residual deficits; Z79.82 Long term (current) use of aspirin; Z79.01 Long term (current) use of anticoagulants
CPT/HCPCS: 36415; 36416; 36600; 70450; 71045; 73206; 76700; 78452; 80048; 80051; 80053; 82140; 82330; 82805; 82962; 83735; 83880; 84100; 84145; 84484; 85025; 85651; 85730; 86140; 86611; 86706; 86803; 87040; 87340; 87801; 90935; 93005; 93017; 93306; 93971; 96365; 96366; 96372; 96375; 99291; 99292; A9500; J0280; J0612; J1644; J1815; J2020; J2785; J3490; J7799; J9999; Q0144

== ENCOUNTER → 2025-01-30 14:38 | Outpatient (BNVA) | payer MEDICARE, SELFPAY | PROVIDERS: PCP Family Medicine; Visit Provider Nurse Practitioner Family | DX: I48.91 Unspecified atrial fibrillation (principal); L03.113 Cellulitis of right upper limb; I13.2 Hypertensive heart and chronic kidney disease with heart failure and with stage 5 chronic kidney disease, or end stage renal disease; N18.6 End stage renal disease; I50.33 Acute on chronic diastolic (congestive) heart failure; Z99.2 Dependence on renal dialysis; Z87.891 Personal history of nicotine dependence; I35.0 Nonrheumatic aortic (valve) stenosis; Z79.01 Long term (current) use of anticoagulants | CPT/HCPCS: 93005; 99214 ==

== ENCOUNTER 2025-01-31 10:14 | Inpatient (IN) | payer MEDICARE, SELFPAY ==
[2025-01-31] VITALS (10 sets, daily range): BP systolic 97–150; BP diastolic 64–98; PULSE 80–125; RESP 17–21; TEMP 36.3–36.9; O2SAT 92–100; BMI 26.5; BMI 28.5
--- NOTE | 2025-01-31 10:18 | XR_ITS ---
WS: [id number] Right hip, 2 views, 01/31/2025 Clinical Data: fall Comparison: None. Findings: There is a right femoral neck fracture. The femoral head remains within the acetabulum. The adjacent ischial pubic ramus is intact. Vascular calcifications are noted. XR/XR hip RT 2-3V wo/w pel* [id number] Impression: Right femoral neck fracture.
--- NOTE | 2025-01-31 10:19 | ED_ITS ---
HPI - Extremity Injury (Lower) 2 General: Chief Complaint: Fall Stated Complaint: R Hip Pain Time Seen by Provider: 01/31/25 10:17 Source: patient and EMS Mode of arrival: EMS Limitations: no limitations History of Present Illness: 49-year-old male states that he tripped and fell just prior to arrival. States he landed on his right hips been having severe right hip pain since then. States much worse with movement rates it an 8 out of 10. He denies hitting his head denies any loss of consciousness denies any other injuries Related Data Home Medications ?Medication ?Instructions ?Recorded ?Confirmed trazodone 150 mg tablet 150 mg PO BEDTIME 01/17/24 1 04/01/24 Previous Rx's ?Medication ?Instructions ?Recorded furosemide 80 mg tablet 80 mg PO BID #60 tabs apixaban 5 mg tablet (Eliquis) 5 mg PO BID@0900,2100 3 0 days #60 01/25/25 tabs aspirin 81 mg tablet,delayed 81 mg PO DAILY 30 days #3 0 tabs 01/25/25 release atorvastatin 40 mg tablet 40 mg PO BEDTIME 30 days #30 tabs 01/25/25 diltiazem HCl 120 mg 120 mg PO DAILY 30 days #30 caps 01/25/25 capsule,extended release 24 hr linezolid 600 mg tablet (Zyvox) 600 mg PO BID 7 days # 14 tabs 01/25/25 metoprolol succinate 25 mg 25 mg PO DAILY 30 days #30 tabs 01/25/25 tablet,extended release 24 hr metronidazole 500 mg tablet 500 mg PO Q8H 7 days #21 t abs 01/25/25 Allergies Allergy/AdvReac Type Severity Reaction Status Date / Time lisinopril Allergy swelling Verified 01/30/25 14:07 Penicillins Allergy ALGY-Hives Verified 01/30/25 14:07 tramadol Allergy ALGY-Hives Verified 01/30/25 14:07 Review of Systems 2 Musc: Reports: extremity pain PFSH ED 2 PFSH: Medical History Diastolic CHF Atrial fibrillation with RVR End stage kidney disease Uncontrolled hypertension Hypoglycemia Atrial fibrillation with RVR COPD exacerbation Pulmonary edema Non-compliance with renal dialysis End stage renal disease Anxiety and depression Obstructive sleep apnea Allergic dermatitis ESRD (end stage renal disease) Pleural effusion Dialysis patient Hypertensive emergency Atrial fibrillation/flutter Chest pain Elevated troponin Resistant hypertension Paroxysmal atrial fibrillation with RVR End stage chronic kidney disease Anemia Sebaceous cyst GERD (gastroesophageal reflux disease) Insomnia COPD (chronic obstructive pulmonary disease) Reports he is on 4 L of oxygen at home Hypoxia Anxiety and depression Lower respiratory tract infection Encounter to establish care Vitamin D deficiency Hypertension CRF (chronic renal failure) Surgical History S/P hemodialysis catheter insertion H/O hand surgery right hand with hardware H/O circumcision Presence of peritoneal dialysis catheter S/P dialysis catheter insertion (12/12/19) Removed on 04/04/2020 Family History Other Adopted Denies family history of Anesthesia complication Bleeding disorder Social History Smoking and tobacco/nicotine status: former use of tobacco/nicotine Alcohol intake: never Substance/Drug Use: never Household members: significant other Marital status: Single Current occupational status: disabled Physical Exam 2 Const: COMMON NORMALS: no acute distress, patient oriented x3 and healthy appearing HENMT: COMMON NORMALS: normocephalic and atraumatic HEAD & SCALP: n ormocephalic and atraumatic Neck/C-Spine: COMMON NORMALS: full ROM and supple Chest: COMMONS NORMALS: normal inspection of the chest and normal palpation of entire chest wall Resp: COMMON NORMALS: normal respiratory effort Cardio: COMMON NORMALS: regular rate, regular rhythm and No murmurs present (Cardio) RATE: regular rate RHYTHM: regular rhythm GI: COMMON NORMALS: Soft to palpation, non-tender and no masses PALPATION: Yes Soft to palpation Extremity: COMMON NORMALS: full ROM NARRATIVE EXTREMITY EXAM: Tenderness noted over right hip no obvious deformity distal pulses intact Neuro: COMMON NORMALS: patient oriented x3, moves all extremities and no focal motor deficits Psych: COMMON NORMALS: mental status grossly normal, Normal thought process present and cooperative THOUGHT PROCESS: Normal thought process present Skin: COMMON NORMALS: no rashes or lesions noted and no wounds GENERAL SKIN EXAM: no rashes or lesions noted Course 2 Vital Signs: Vital signs: Vital Signs Temperature 98.4 F 01/31/25 10:14 Pulse Rate 87 01/31/25 10:14 Respiratory Rate 20 H 01/31/25 10:14 Blood Pressure 118/89 01/31/25 10:14 Pulse Oximetry 92 01/31/25 10:[address] thod Room Air 01/31/25 10:14 MDM - Extremity Injury (Lower) Medical Decision Making Patient presents here after a fall. He does have a right hip fracture from his fall. It was a ground-level trip and fall. He has no other signs of injury did not hit his head has no neck injury. Patient does have extensive history including chest heart failure A-fib and end-stage renal disease. He was found to be hyperkalemic did give him insulin along with dextrose he has no EKG changes at this time. EKG interpreted by me shows A-fib heart rate [address] elevation QRS 109 QTc 434 chest x-ray shows no acute abnormalities I have spoke to orthopedist Dr. Pérez who is consulted also spoke to hospitalist Dr. Salazar who is admitting. Medical Records I reviewed the patient's medical records. Lab Data I reviewed the patient's lab results. 01/31/25 10:59 01/31/25 10:59 Radiology Impressions Hip/Pelvis X-Ray 01/31/25 10:18 Impression: Right femoral neck fracture. Chest X-Ray 01/31/25 10:35 Impression: Cardiomegaly. Laboratory Results WBC 7.41 10^3/uL (3.29-11.43) 01/31/25 10:59 RBC 4.72 10^6/uL (3.85-5.65) 01/31/25 10:59 Hgb 15.20 g/dL (11.27-16.99) 01/31/25 10:59 Hct 48.2 % (37-53) 01/31/25 10:59 MCV 102.1 fl (82-101) H 01/31/25 10:59 MCH 32.2 pg (27-33) 01/31/25 10:59 MCHC 31.5 g/dL (30-55) 01/31/25 10:59 RDW 14.4 % (12.1-15.1) 01/31/25 10:59 Plt Count 222 10^3/cmm (157-399) 01/31/25 10:59 MPV 9.4 fL (7.4-10.4) 01/31/25 10:59 Neut % (Auto) 74.3 % 01/31/25 10:59 Lymph % (Auto) 9.7 % 01/31/25 10:59 Millard % (Auto) 9.4 % 01/31/25 10:59 Eos % (Auto) 5.1 % 01/31/25 10:59 Baso % (Auto) 1.1 % 01/31/25 10:59 Neut # (Auto) 5.50 10^3/uL (1.8-7.7) 01/31/25 10:59 Lymph # (Auto) 0.7 10^3/uL (0.8-4.8) L 01/31/25 10:59 Millard # (Auto) 0.7 10^3/uL (0.2-0.9) 01/31/25 10:59 Eos # (Auto) 0.4 10^3/uL (0.0-0.8) 01/31/25 10:59 Baso # (Auto) 0.1 10^3/uL (0.0-0.1) 01/31/25 10:59 Nucleated RBC % (auto) 0 % 01/31/25 10:59 Nucleated RBCs # 0.0 /100WBC 01/31/25 10:59 PT 16.40 SECONDS (12.1-14.9) H 01/31/25 10:59 INR 1.23 (0.8-1.2) H 01/31/25 10:59 Sodium 134 mmol/L (136-145) L 01/31/25 10:59 Potassium 6.8 mmol/L (3.5-5.1) H* 01/31/25 10:59 Chloride 93 mmol/L (98-107) L 01/31/25 10:59 Carbon Dioxide 23 mmol/L (22-29) 01/31/25 10:59 Anion Gap 24.8 (5-19) H 01/31/25 10:59 BUN 65 mg/dL (6-20) H 01/31/25 10:59 Creatinine 12.0 mg/dL (0.7-1.2) H* 01/31/25 10:59 GFR Calculation 4.5 mL/min (90-130) L 01/31/25 10:59 Glucose 83 mg/dL (65-115) 01/31/25 10:59 Calculated Osmolality 296 mOsm/kg (285-295) H 01/31/25 10:59 Calcium 9.1 mg/dL (8.5-10.5) 01/31/25 10:59 Total Bilirubin 0.5 mg/dL (0.15-1.2) 01/31/25 10:59 AST 16 U/L (0-40) 01/31/25 10:59 ALT 19 U/L (0-41) 01/31/25 10:59 Alkaline Phosphatase 238 U/L (40-130) H 01/31/25 10:59 Total Protein 7.3 g/dL (6.6-8.7) 01/31/25 10:59 Albumin 3.8 g/dL (3.5-5.2) 01/31/25 10:59 Globulin 3.5 g/dL (1.3-4.6) 01/31/25 10:59 All radiology interpretation(s) finalized by discharge EKG Data EKG 1: I personally reviewed and interpreted this EKG as follows: EKG interpretation date: 01/31/25 EKG interpretation time: 12:02 Interpretation: afib hr [address] elevation qrs 119 qtc 434 Discharge Plan Discharge Patient Disposition: Admitted As Inpatient Admit Provider: Mukesh Salazar Clinical Impression: Closed right hip fracture, End stage renal disease on dialysis, Hyperkalemia Condition: Stable Coding Level of Care Code ED [employer] 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
--- NOTE | 2025-01-31 10:35 | XR_ITS ---
WS: [id number] Portable AP upright chest, 01/31/2025 Clinical Data: htn Comparison: Portable chest, 01/23/2025 Findings: No nodules, masses or effusions are seen. The heart is enlarged. The pulmonary vascularity is not increased. No pneumonia or pneumothorax is seen. The aortic arch shows calcification. There is a right dialysis catheter unchanged. There are unchanged erosions of the left glenohumeral joint. XR/XR chest 1V portable [id number] Impression: Cardiomegaly.
--- OUTSIDE RECORDS SUMMARY | 2025-01-31 10:39 | XMS_ITS | Encounter Summary ---
Author Organization [facility] Address 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 Topic: Reschedule/Cancel Appointment/Late Arrival >> Sep 16, 2024 9:03 AM Cleopatra Hall wrote: Caller is requesting to reschedule/cancel a hospital follow up. Caller Name: Asuncion, significant other, on [facility] Callback Number: Telephone Information: Call Notes: patient was taken to hospital in [place] this morning. Is patient requesting to schedule? No documented in this encounter Plan of Treatment Not on file documented as of this encounter Visit Diagnoses Not on filedocumented in this encounter Care Teams Electrical Manager Relationship Specialty Start Date End Date Ras Joy MD [address] [facility] [address] [place] [address] PCP - General Family Practice 03/04/23 documented as of this encounter
--- OUTSIDE RECORDS SUMMARY | 2025-01-31 10:39 | XMS_ITS | Clinical Summary ---
Author Organization [facility] Address [address] [address] Phone Care Team Providers Care Equine Internship Name Role Phone Ras Joy MD Primary Care Provider [phone] Allergies Active Allergy Reactions Criticality Noted Date [...] inhaler 4 puffIndications:COPD (chronic obstructive pulmonary disease) ([facility]) 4 puff inhl Once 11/25/2023 Active albuterol [...] or pharmacy? Patient declines to respond 10/06/2023 [facility] Utilities Answer Date Recorded In the past 12 months has e [employer], [employer], oil, or water [employer] threatened to shut off services in your [...] declined 10/06/2023 How often do you attend adventism or confucianist serv ices? Patient declined 10/06/2023 Do you belong to any clubs o r organizations such as adventism groups, unions, fraternal or athletic groups, or [...] Recorded Patient Health Questionnaire-2 Score 2 05/27/2024 [facility] - Occupational Stress Questionnaire Answer Date [...] place to sleep or slept in a [place] health care facility (including now)? No 08/30/2023 Housing Stability Vital [...] any time in the past 12 m [facility], were you homeless or living in a [place] health [place] facility (including now)? 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 MAKER HAND Height 175.3 cm (5' 9 ) 09/16/2024 6:07 AM CDT Body Mass Index 29.68 05/27/2024 10:04 AM SAMPLE MAKER HAND Plan of Treatment Health Maintenance Due Date [...] 1992 Medicare Initial AWV [id number] 03/30/2020 [facility] Shared Decision Making 2023 [...] this topic Medical Devices Implanted Type Area Rinkman Device Identifier Shelf Expiration Date Model / [...] Comprehensive metabolic panel (09/16/2024 7:00 AM CDT) [facility] Glucose 90 70 - 100 mg/dL LAB CHEMISTRY METHOD 09/16/2024 7:33 AM CDT [facility] BUN 68(H) 9 - 20 mg/dL LAB CHEMISTRY METHOD 09/16/2024 7:33 AM CDT [facility] Creatinine 9.82(H) 0.66 - 1.25 mg/dl LAB CHEMISTRY METHOD 09/16/2024 7:33 AM CDT [facility] BUN/Creatinine Ratio 7(L) 12 - 17 LAB CHEMISTRY METHOD 09/16/2024 7:33 AM CDT [facility] Sodium 132(L) 135 - 145 mmol/L LAB CHEMISTRY METHOD 09/16/2024 7:33 AM CDT [facility] Potassium 5.4(H) 3.6 - 5.0 [...] CHEMISTRY METHOD 09/16/2024 7:33 AM CDT [facility] Total Protein, Serum 7.4 5.6 - 8.5 g/dL LAB CHEMISTRY METHOD 09/16/2024 7:33 AM CDT [facility] Albumin 3.1(L) 3.5 - 5.2 [...] CHEMISTRY METHOD 09/16/2024 7:33 AM CDT [facility] AST (SGOT) 9 9 - [...] LAB BLOOD ORDERABLES Final Re sult [facility] [address] [address] * Lipid Panel (01/09/2024 5:51 AM CDT) [facility] Cholesterol, Total 94 0 - 200 [...] CHEMISTRY METHOD 01/09/2024 6:43 AM CDT [facility] Comment: NCEP guidelines: Low: Less than 40 mg/dL Normal: 40 - 60 mg/dL High: Greater than 60 mg/dL LDL 41 0 - 130 mg/dL LAB CHEMISTRY METHOD 01/09/2024 6:43 AM CDT [facility] Blood Venous blood specimen / Unknown Venipuncture / Unknown 01/09/2024 5:51 AM CDT 01/09/2024 6:10 AM CDT Michele Cage MD LAB BLOOD ORDERABLES F inal Result Performing Organization Address City/[facility] de Phone Number [facility] [address] [place] [id number] * Hemoglobin A1c (01/07/2024 5:20 PM CDT) Hemoglobin A1c 4.7 % 01/08/2024 10:47 AM CDT [facility] Estimated Average Glucose 88 mg/dL 01/08/2024 10:47 AM CDT [facility] Blood Venous blood specimen / Unknown Existing Catheter / Unknown 01/07/2024 5:20 PM CDT 01/07/2024 5:28 PM CDT Narrative [facility] - 01/08/2024 10:47 AM CDT HgbA1C ranges recommended by the [place] Diabetes Association (ADA): >6.5% Diabetic 5.7-6.4% Pre-Diabetic <5.7% Non-Diabetic us Oumar Angulo MD LAB BLOOD ORDERABLES Final Resul t Performing Organization Address City/[facility]/ZIP Co de Phone Number [facility] [address] [place] [phone] * TRANSTHORACIC ECHO (TTE) COMPLETE W/ COLOR [...] date time: 07/15/2023 3:34 PM Accession no: [id number] Patient status: Routine Visit no: [id number] HR: 115 bpm Study location: Portable In/Out patient: Inpatient Technical quality: Adequate Blood pressure: 120 / 77 mmHg Room no: 254N Procedure Staff Referring Physician: Declan Castrejon M.D. Service Department Manager: Michelle Bundy [facility] RVT Interpreting physician: Declan Castrejon M.D. Physician [...] 07/15/2023 Demographics Patient name: BALAJI VAZQUEZPatient ID: [id number] Gender: MaleAge: 48 year(s) Date of : 1975BMI: 27.13 kg/m^2 Height: 177 cmBSA: 2.02 m^2 Weight: 85 kgEthnicity: None Race: Procedure Information Procedure type: Echo Proc. sub type: TTE procedure: Transthoracic Echo (TTE)Complete. Start date time: 07/15/2023 3:34 PMAccession no: [id number] Patient status: RoutineVisit no: [id number] HR: 115 bpmStudy location: Portable In/Out patient: InpatientTechnical quality: Adequate Blood pressure: 120 / 77 mmHg Room no: 254N Procedure Staff Referring Physician: Declan Castrejon M.D. Service Department Manager: Michelle Bundy [facility] RVT Interpreting physician: Declan Castrejon M.D. 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
--- OUTSIDE RECORDS SUMMARY | 2025-01-31 10:39 | XMS_ITS | Encounter Summary ---
Author Organization [facility] Address 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 Gender Identity Not on file Sexual Orientation Not on file documented as of this encounter Plan of Treatment Not on file documented as of this encounter Procedures Procedure Name Priority Date/Time Associated Diagnosis Comments COMPREHENSIVE METABOLIC PANEL Routine 01/23/2025 10:39 AM CDT documented in this encounter Results * COMPREHENSIVE METABOLIC PANEL (01/23/2025 10:39 AM CDT) Blood us Abstract Provider CHEMISTRY ORDERABLES Final Res ult documented in this encounter Visit Diagnoses Not on filedocumented in this encounter Care Teams Hotel Services Sales Representative Relationship Specialty Start Date End Date Ras Joy MD [address] [facility] [address] [place] [address] PCP - General Family Practice 03/04/23 documented as of this encounter
--- OUTSIDE RECORDS SUMMARY | 2025-01-31 10:39 | XMS_ITS | Encounter Summary ---
Author Organization [facility] Address [address] [place] [address] Phone Care Team Providers Care Check Out Cashier Name Role Phone Lida Woods MD Primary Care Provider Ras David MD Primary Care Provider [phone] Encounter Details Date Type Department Care Team (Late st Contact Info) Description 04/21/2023 Orders Only [facility] [address] [phone] Felecia Ortega, SHAWNA [address] [phone] Social History Tobacco Use Types Packs/Day Years Used Date Smoking Tobacco: Every Day Cigarettes Smokeless Tobacco: Never Alcohol Use Standard Drinks/Week Comments Never 0 (1 standard drink = 0.6 oz pur e alcohol) [facility] Utilities Answer Date Recorded In the past 12 months has [facility] [employer], gas, oil, or water [employer] threatened to shut off services in your [...] often do you attend chur ch or jain services? Patient declined 04/22/2023 Do you belong to any clubs o r organizations such as mandaeism groups, unions, fraternal or athletic groups, or [...] medical care, and heating? Patient declined 04/22/2023 [facility] - Occupational Stress Questionnaire Answer Date [...] place to sleep or slept in a group home (including now)? Patient declined 04/22/2023 Sex and [...] documented as of this encounter Care Teams Check Out Cashier Relationship Specialty Start Date End Date Lida Woods MD [address] [place] [address] [place] [address] PCP - General Family Medicine 09/02/22 Ras Joy MD [address] [place] [address] PCP - General Family Medicine 05/04/23 documented as of this encounter
--- OUTSIDE RECORDS SUMMARY | 2025-01-31 10:39 | XMS_ITS | Encounter Summary ---
Author Organization [facility] Address [address] [place] [address] Phone Care Team Providers Care Resaw Operator Name Role Phone Lida Woods MD Primary Care Provider UnaRas Uriarte MD Primary Care Provider [phone] Reason for Visit * Reason Onset Date Comments Med Refill 10/27/2022 Encounter Details Date Type Department Care Team (Late st Contact Info) Description 10/27/2022 Refill MED TELE [address] [place] [phone] Michele Cage MD [address] [place] [phone] Social History Tobacco Use Types Packs/Day Years [...] Assessment Author No 09/10/2022 9:22 AM Belia aDly BSN, RN * Do you have serious [...] COVID-19 Rule-Out 02/23/2023 02/23/2023 02/23/2023 6:24 AM MEDICAL RECORDS LIBRARY PROFESSOR COVID-19 Rule-Out 02/23/2023 02/23/2023 02/23/2023 8:27 AM MEDICAL RECORDS LIBRARY PROFESSOR MRSA Comment:01/08/24: MRSA PCR + 03/22/2023 01/08/2024 COVID-19 Rule-Out 07/12/2023 07/12/2023 07/12/2023 6:24 AM CDT COVID-19 Rule-Out 07/30/2023 07/30/2023 07/30/2023 12:45 AM CDT COVID-19 Rule-Out 07/31/2023 07/31/2023 07/31/2023 3:26 PM CDT COVID-19 Rule-Out 01/07/2024 01/07/2024 01/07/2024 6:10 PM CDT COVID-19 Rule-Out 09/16/2024 09/16/2024 09/16/2024 9:01 AM CDT documented as of this encounter Care Teams Resaw Operator Relationship Specialty Start Date End Date Lida Woods MD [address] [place] [address] PCP - General Family Medicine 09/02/22 Ras Joy MD [address] [place] [address] PCP - General Family Medicine 05/04/23 documented as of this encounter
--- OUTSIDE RECORDS SUMMARY | 2025-01-31 10:39 | XMS_ITS | Encounter Summary ---
Author Organization [facility] Address [address] [place] [address] Phone Care Team Providers Care Help Aid Name Role Phone Lida Woods MD Primary Care Provider Unav Ras Huber MD Primary Care Provider [phone] Reason for Visit * Reason Comments Med Change Request Encounter Details Date Type Department Care Team (Late st Contact Info) Description 09/27/2022 Refill MED TELE [address] [place] [phone] Michele Cage MD [address] [place] [phone] Social History Tobacco Use Types Packs/Day Years [...] COVID-19 Rule-Out 02/23/2023 02/23/2023 02/23/2023 6:24 AM BURLAP MAN COVID-19 Rule-Out 02/23/2023 02/23/2023 02/23/2023 8:27 AM BURLAP MAN MRSA Comment:01/08/24: MRSA PCR + 03/22/2023 01/08/2024 COVID-19 Rule-Out 07/12/2023 07/12/2023 07/12/2023 6:24 AM CDT COVID-19 Rule-Out 07/30/2023 07/30/2023 07/30/2023 12:45 AM CDT COVID-19 Rule-Out 07/31/2023 07/31/2023 07/31/2023 3:26 PM CDT COVID-19 Rule-Out 01/07/2024 01/07/202401/07/2024 6:10 PM CDT COVID-19 Rule-Out 09/16/2024 09/16/2024 09/16/2024 9:01 AM CDT documented as of this encounter Care Teams Help Aid Relationship Specialty Start Date End Date Lida Woods MD [address] [place] [address] PCP - General Family Medicine 09/02/22 Ras Joy MD [address] [place] [address] PCP - General Family Medicine 05/04/23 documented as of this encounter
--- OUTSIDE RECORDS SUMMARY | 2025-01-31 10:39 | XMS_ITS | Clinical Summary ---
Author Organization [facility] Address [address] [place]: Epic Prelude ADT [place] [address] Care Team Providers Care Infrastructure Security Architect Name Role Phone Ras Joy MD Primary Care Provider [phone] Allergies Active Allergy Reactions Criticality Noted Date Comments Lisinopril Swelling Low 08/20/2021 Penicillins Rash,Itching,Other (See Comments) Low 0 05/12/2018 Tramadol Itching Low 05/03/2019 Medications sucroferric oxyhydroxide (Velphoro) 500 mg Tablet, Chewable Take 1,500 mg by mouth 3 times daily. If he has a snack he will take 2-[address] Pillai Active vit B,X-DW-pvjy-selen-v it D3-E (RenaPlex-D) 800 mcg-12.5 mg -2,000 [...] stage renal disease (CMS/HCC) Take 1 Tablet (120 mg) by mouth daily in the morning. 90 Tablet 1 03/04/20 23 Active ondansetron (ZOFRAN) 4 mg TabletIndications:E SRD (end stage renal disease) ([facility]) TAKE 1 TABLET BY MOUTH EVERY 4-6 HOURS NEEDED FOR NAUSEA 60 Tablet 11 03/04/20 23 Active Additional Information Patient not taking.Reported on 12/01/2024 ferrous sulfate 325 mg (65 mg iron) tabletIndications:E SRD (end stage renal disease) ([facility]) Take 65 mg by mouth daily with breakfast. Active ipratropium-albuter oL (DUONEB) 0.5 mg-3 mg(2.5 mg base)/3 mL Solution for NebulizationIndicat ions:Panlobular emphysema (CMS/HCC) Take 3 mL by inhalation [...] 40 mg tabletIndications:C hronic diastolic heart failure ([facility]),History of hemorrhagic cerebrovascular accident (CVA) without residual deficits take 1 tablet by mouth every day 100 Tablet 1 09/15/19 24 Active citalopram (CeleXA) 20 mg tablet Take 1 Tablet by mouth daily. 11/26/19 24 Active albuterol sulfate HFA 90 mcg/actuation aerosol inhaler Take 4 Puffs by inhalation. 11/25/19 24 Active selexipag (UPTRAVI) 200 mcg TabletIndications:P anlobular emphysema ([facility]) Take 1 Tablet (200 mcg) by mouth 2 times daily. 60 Tablet 03/11/20 24 Active Additional Information Patient not taking.Reported on 12/01/2024 apixaban (Eliquis) 2.5 mg tabletIndications:L ongstanding persistent atrial fibrillation ([facility]) Take 1 Tablet (2.5 mg) by mouth [...] respiratory failure with hypoxia (CMS/HCC),Panlobula r emphysema (CMS/HCC) Home Oxygen Concentrator yes at 5 L/M [...] Encounters Date Type Department Care Team Description 01/26/[address] [facility] [place] [id number] [place] [address] Provider, Abstract 01/22/2025 - 01/22/2025 11:59 PM CDT Hospital Encounter [facility] [place] [address] [facility] [place] [phone] Ambulance, [facility] Discharge Disposition: [facility] 01/05/2025 Telephone [facility] [place] [address] [place] [id number] Ras Joy MD Medication Assistance 12/15/2024 Orders Only [facility] [place] [facility] [place] [address] [place] [address] Provider, Abstract 12/14/2024 6:05 AM CDT - 12/14/2024 11:59 PM CDT Hospital Encounter [facility] [address] [address] Ambulance, [facility] Discharge Disposition: [facility] 12/01/2024 11:00 AM CDT Video Visit [facility] [address] [address] Mary EllenLeydi zimmerman, HALEY Surgical site infection (Primary Dx); Declined influenza vaccine; S/P arteriovenous (AV) fistula creation 12/01/2024 Nurse Triage [facility] [address] [place] [address] Amanda Molina NP 11/22/2024 External Device Data [facility] ABSTRACTION Provider, Abstract 11/15/2024 Results Follow-Up [facility] [address] [address] Amanda Molina NP COMPREHENSIVE METABOLIC PANEL, CBC WITH DIFFERENTIAL 11/14/2024 1:00 PM CDT Office Visit [facility] [address] [place] [address] Amanda Molina NP Hospital discharge follow-up (Primary Dx); Hyperkalemia; Primary hypertension; Chronic respiratory failure with hypoxia (CMS/HCC); Panlobular emphysema (CMS/HCC) 11/14/2024 Abstract [facility] [address] [place] [address] Provider, Abstract 11/13/2024 - 11/13/2024 11:59 PM CDT Hospital Encounter 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 Gender Identity Not on file Sexual Orientation [...] Completed 08/02/2023 Medical Devices Implanted Type Area Cad Engineer Device Identifier Shelf Expiration Date Model / Serial / Lot Catheter Catheter Chest Cath Dialysis [employer] 14.5fr 27cm Std [id number] Implanted:Qty : 1 on 02/25/2021 by Raffi Mckinnon MD Catheter Left: Chest [employer] 06/27/2022 [id number] / / [id number] Procedures Procedure Name Priority Date/Time Associated Diagnosis Comments COMPREHENSIVE METABOLIC PANEL Routine 01/23/2025 10:39 AM CDT COMPREHENSIVE METABOLIC PANEL Routine 12/14/2024 2:51 PM CDT CBC WITH DIFFERENTIAL Routine 11/14/2024 1:33 PM CDT Hyperkalemia COMPREHENSIVE METABOLIC PANEL Routine 11/14/2024 1:33 PM CDT Hyperkalemia HEMOGLOBIN A1C Routine 01/10/2019 9:33 PM CDT from Last 3 Months or Most Recently Relevant to Health Maintenance Results * COMPREHENSIVE METABOLIC PANEL (01/23/2025 10:39 AM CDT) Only the most recent of3 resultswithin the time period is included. Blood [...] [facility] Comment: Test Performed at: [facility] [employer] [address] Angel Walker MD Blood 11/14/2024 1:33 PM CDT 11/15/2024 3:51 AM CDT us Amanda Molina NP HEMATOLOGY ORDERABLES Final Re sult [facility] [phone] [address] * HEMOGLOBIN A1C (01/10/2019 9:33 PM CDT) HEMOGLOBIN A1C 5.4 <=5.6 % 01/11/2019 12:59 AM CDT [facility] EST. AVG GLUCOSE, A1C 108 mg/dL 01/11/2019 12:59 AM CDT [facility] Blood Collection / Unknown 01/10/2019 9:33 PM CDT 01/11/2019 12:05 AM CDT Narrative [facility] - 01/11/2019 12:59 AM CDT HGB A1C INTERPRETATION NORMAL: <5.7% PRE-DIABETES: 5.7 - 6.4% DIABETES: 6.5% OR GREATER us Ras Joy MD CHEMISTRY ORDERABLES Nancy childers Result [facility] CLIA # [id number] [address] [address] [facility] CLIA # [id number] [address] [address] from Last 3 Months or Most Recently Relevant to Health Maintenance Insurance [facility] PPO SNP MCR Advance Directives For more information, please contact: [phone] * NO CPR (In Event of Cardiopulmonary Arrest) (Latest Code Status on File) Date Activated Date Inactivated Comments 12/09/2023 12:43 PM 01/14/2024 3:03 PM Question Answer Comments Mechanical Ventilation (for respiratory distress) - Invasive (i.e. intubation): No Mechanical Ventilation (for respiratory distress) - Non-Invasive (i.e. BiPAP, CPAP): Yes Care Teams Infrastructure Security Architect Relationship Specialty Start Date End Date Ras Joy MD [address] [address] PCP - General Family Practice 03/04/23
[2025-01-31 11:10] LABS: Hematocrit 48.2 % (37-53); Hemoglobin 15.20 g/dL (11.27-16.99); Mean Corpuscular HGB Conc 31.5 g/dL (30-55); Mean Corpuscular Hemoglobin 32.2 pg (27-33); Mean Corpuscular Volume 102.1 fl (82-101); Nucleated Red Blood Cells % 0 %; Platelet Count 222 10^3/cmm (157-399); Red Blood Count 4.72 10^6/uL (3.85-5.65); White Blood Count 7.41 10^3/uL (3.29-11.43)
[2025-01-31 11:19] LABS: INR 1.23 (0.8-1.2); Prothrombin Time 16.40 SECONDS (12.1-14.9)
[2025-01-31 11:25] LABS: Alanine Aminotransferase 19 U/L (0-41); Albumin Level 3.8 g/dL (3.5-5.2); Alkaline Phosphatase 238 U/L (40-130); Anion Gap 24.8 (5-19); Aspartate Amino Transferase 16 U/L (0-40); Blood Urea Nitrogen 65 mg/dL (6-20); Calcium 9.1 mg/dL (8.5-10.5); Carbon Dioxide 23 mmol/L (22-29); Chloride 93 mmol/L (98-107); Globulin 3.5 g/dL (1.3-4.6); Glucose 83 mg/dL (65-115); Osmolality Calculated 296 mOsm/kg (285-295); Sodium 134 mmol/L (136-145); Total Protein 7.3 g/dL (6.6-8.7)
--- NOTE | 2025-01-31 11:28 | P.HP_ITS ---
Providers/Chief Complaint 2 Primary Care Provider: Ras Joy Chief Complaint: R Hip Pain History of Present Illness Leopoldo Schaefer is a 49 year old man with history of atrial fibrillation on apixaban (Eliquis), hypertension, chronic obstructive pulmonary disease (COPD), end-stage renal disease (ESRD) on hemodialysis (Thursday/Thursday/Thursday), obstructive sleep apnea (GIIG), and congestive heart failure (CHF) who was brought by EMS after a fall at home. States he ?just fell? while returning from the kitchen; denies loss of consciousness or head injury. Reports legs are chronically weak. Did not have his cane. Reports acute right hip pain following the fall. Also notes chronic left shoulder pain that has worsened and right knee pain. Received 100 mcg intranasal fentanyl en route and intravenous hydromorphone in the emergency department. Uses a cane for ambulation but did not have it at the time of the fall. Denies chest pain, palpitations, dizziness, syncope, cough, sputum, nausea, vomiting, diarrhea, melena, hematochezia, or hematuria. Reports limited exertional tolerance?becomes short of breath crossing a room. Uses continuous oxygen at home (reports 5 L). In the ED, oxygen saturation reported as 92% on room air. He states that he was wearing his oxygen when he was ambulating. Recent hospitalization 01/23?01/25 for right arm cellulitis and cat scratch disease; discharged on antibiotics. Right upper extremity remains swollen; patient reports prior ultrasound showed clots in the arm. Last dose of apixaban (Eliquis) was taken last night. Lives with partner (Regine). Code status discussion documented in conversation: when asked about CPR if the heart stops, patient answered ?No?; stated ventilator would be acceptable temporarily if needed for severe pneumonia. Prior code status noted as full code in chart. States life partner would be surrogate decision maker in case he could not make his own decisions. Review of Systems 2 Const: Denies: fever(s), chills, body aches or malaise ENMT: Denies: throat pain Card: Denies: chest pain, edema, pre-syncope or dyspnea on exertion Resp: Denies: dyspnea, productive cough, change in phlegm color or hemoptysis GI: Denies: abdominal pain, nausea, vomiting, diarrhea, constipation, hematochezia or melena : Denies: flank pain, difficulty urinating, urinary frequency or hematuria Musc: Denies: back pain, joint swelling or joint redness Skin/Breast: Denies: rash or new lesions Neuro: Denies: headache(s) or confusion Medications/Allergies Home Medications ?Medication ?Instructions ?Recorded ?Confirmed ?Last Taken ?Type trazodone 150 mg tablet 150 mg PO BEDTIME 01/17/24 1 04/01/24 09/20/24 20:00 History furosemide 80 mg tablet 80 mg PO BID #60 tabs 01/30/25 09/21/24 Rx apixaban 5 mg tablet (Eliquis) 5 mg PO BID@0900,2100 3 0 days #60 01/25/25 01/30/25 Unknown Rx tabs aspirin 81 mg tablet,delayed 81 mg PO DAILY 30 days #3 0 tabs 01/25/25 01/30/25 Unknown Rx release atorvastatin 40 mg tablet 40 mg PO BEDTIME 30 days #30 tabs 01/25/25 01/30/25 Unknown Rx diltiazem HCl 120 mg 120 mg PO DAILY 30 days #30 caps 01/25/25 01/30/25 Unknown Rx capsule,extended release 24 hr linezolid 600 mg tablet (Zyvox) 600 mg PO BID 7 days # 14 tabs 01/25/25 01/30/25 Unknown Rx metoprolol succinate 25 mg 25 mg PO DAILY 30 days #30 tabs 01/25/25 01/30/25 Unknown Rx tablet,extended release 24 hr metronidazole 500 mg tablet 500 mg PO Q8H 7 days #21 t abs 01/25/25 01/30/25 Unknown Rx Allergies Allergy/AdvReac Type Severity Reaction Status Date / Time lisinopril Allergy swelling Verified 01/30/25 14:07 Penicillins Allergy ALGY-Hives Verified 01/30/25 14:07 tramadol Allergy ALGY-Hives Verified 01/30/25 14:07 PFSH Acute 2 PFSH: Medical History Diastolic CHF Atrial fibrillation with RVR End stage kidney disease Uncontrolled hypertension Hypoglycemia Atrial fibrillation with RVR COPD exacerbation Pulmonary edema Non-compliance with renal dialysis End stage renal disease Anxiety and depression Obstructive sleep apnea Allergic dermatitis ESRD (end stage renal disease) Pleural effusion Dialysis patient Hypertensive emergency Atrial fibrillation/flutter Chest pain Elevated troponin Resistant hypertension Paroxysmal atrial fibrillation with RVR End stage chronic kidney disease Anemia Sebaceous cyst GERD (gastroesophageal reflux disease) Insomnia COPD (chronic obstructive pulmonary disease) Reports he is on 4 L of oxygen at home Hypoxia Anxiety and depression Lower respiratory tract infection Encounter to establish care Vitamin D deficiency Hypertension CRF (chronic renal failure) Surgical History S/P hemodialysis catheter insertion H/O hand surgery right hand with hardware H/O circumcision Presence of peritoneal dialysis catheter S/P dialysis catheter insertion (12/12/19) Removed on 04/04/2020 Family History Other Adopted Denies family history of Anesthesia complication Bleeding disorder Social History Smoking and tobacco/nicotine status: former use of tobacco/nicotine Alcohol intake: never Substance/Drug Use: never Household members: significant other Marital status: Single Current occupational status: disabled Vitals/I&O/Wt Last Vital Signs Temp 98.4 F 01/31/25 10:14 Pulse 87 01/31/25 10:14 Resp 20 H 01/31/25 10:14 BP 118/89 01/31/25 10:14 Pulse Ox 92 01/31/25 10:14 O2 Del Method Room Air 01/31/25 10:14 01/30/25 01/31/25 01/31/25 22:59 06:59 14:59 Intake Total 0 / 0 Balance 0 / 0 Weight last 48 hrs Weight 83.915 kg Physical Exam 2 Const: COMMON NORMALS: patient oriented x3 and alert GENERAL APPEARANCE: c ooperative ORIENTATION/CONSCIOUSNESS: Yes awake HENMT: COMMON NORMALS: oropharynx normal Neck/C-Spine: COMMON NORMALS: no JVD Resp: COMMON NORMALS: normal respiratory effort AUSCULTATION: wheezes (Minimal wheeze RLL) Cardio: COMMON NORMALS: no JVD, regular rhythm, S1 normal heart sound present, S2 normal heart sound present and No murmurs present (Cardio) RHYTHM: regular rhythm HEART SOUNDS: S1 normal heart sound present and S2 normal heart sound present GI: COMMON NORMALS: Normal to inspection, nondistended, normoactive bowel sounds present, Soft to palpation and non-tender PALPATION: Yes Soft to palpation Extremity: COMMON NORMALS: no joint enlargement and no pedal edema N ARRATIVE EXTREMITY EXAM: Everted RLE. Neuro: COMMON NORMALS: patient oriented x3 and moves all extremities S ENSORIUM/ORIENTATION: Yes alert Skin: COMMON NORMALS: no rashes or lesions noted GENERAL SKIN EXAM: no rashes or lesions noted Data 01/31/25 10:59 01/31/25 10:59 A&P Assessment and plan 1. Closed right hip fracture: Imaging identified a right femoral neck fracture after a fall on x-ray on my review, pending official read. Orthopedics consulted; surgery timing impacted by recent apixaban dose -last injected was last night. Otherwise CHF and COPD appear to be compensated. Atrial fibrillation compensated. Hypertension appears under control currently. He is having pain has required IV medications. Reviewed vitals, CBC, INR, CMP, chest x-ray on my interpretation unremarkable with somewhat enlarged heart, pending official read. Reviewed ED provider note, discussed with ED provider. He states that he just fell , denies syncope, denies palpitations, chest pain or pressure, and states that he did wear his oxygen, although is not wearing it currently. Function saturation 92%. Monitor on telemetry with severe hyperkalemia. He just had an echocardiogram on the with normal ejection fraction abnormal septal motion consistent with conduction abnormality. Mild AVS. Discussed perioperative risks with him with increased risk of cardiac complication in him compared to average 6.9% versus average 2%, increased risk of serious complication 15.6% versus 12.3% average mildly increased risk of any complication 11.6% as opposed to 10% average risk of sepsis 2.6%, risk of readmission 14% risk for return to OR 7.1% risk of 3.4% with risks considered for ORIF. Currently underlying conditions including CHF, COPD, A-fib are not decompensated. Underlying ESRD status underwent dialysis today but is noted to have severe hyperkalemia, elevated BUN, creatinine, anion gap, pending nephrology assessment and dialysis. - Pending orthopedic assessment. - Hold apixaban (Eliquis) due to anticipated surgery. With venous thrombi of right upper extremity, also has underlying atrial fibrillation, will bridge with heparin drip. - IV Dilaudid for severe breakthrough pain as needed. Acetaminophen. 2. Hyperkalemia: Severe hyperkalemia, potassium 6.8. He states that he had dialysis yesterday. 10 units regular insulin is ordered, discussed with pharmacy will confirm that is being administered alongside with dextrose as he is not diabetic and blood glucose 83. Requested 15 g of Kayexalate. Discussed with nephrology they will see and consider if maybe can dialyze today. Monitor on telemetry. Low potassium diet. Plan: Acute pain due to injury : Significant pain associated with right hip fracture and other musculoskeletal complaints. - Continue IV hydromorphone (Dilaudid) as needed for pain. Atrial fibrillation on anticoagulation (apixaban) : History of atrial fibrillation on apixaban; last dose taken last night. Anticoagulation management adjusted perioperatively. - Hold apixaban (Eliquis). - Bridge with heparin drip while in the hospital. - Continue to monitor telemetry for atrial fibrillation and anticoagulation as above. End-stage renal disease on hemodialysis : ESRD on Thursday/Thursday/Thursday schedule; needs in-hospital dialysis coordination. - Request nephrology consultation for continued hemodialysis with ESRD. Chronic obstructive pulmonary disease (not in exacerbation) : COPD without current exacerbation; mild wheeze on exam. - Add breathing treatments scheduled as needed for COPD. Hypertension : Chronic hypertension; ongoing home regimen referenced. - Continue diltiazem for blood pressure control. - Continue metoprolol for blood pressure control. Congestive heart failure (not in exacerbation) : CHF without current signs of exacerbation per plan note. - Continue furosemide (Lasix). Right upper extremity edema with reported prior venous thrombosis : Persistent right arm swelling with patient-reported prior venous thrombosis; on anticoagulation. - Elevate right upper extremity when possible. Recent cellulitis and cat scratch disease : Recent hospitalization for right arm cellulitis and cat scratch disease; improving without fevers at home. - Continue antibiotics as recently prescribed to complete the course. Requesting to confirm home medications. PDMP PDMP Reviewed: Not Reviewed Attestations 2 Medical Necessity Statement*: Admission of over 2 midnights anticipated for assessment and management of right hip fracture and repair gentleman on anticoagulation with recent venous thrombosis, with underlying A-fib, CHF, COPD, ESRD on dialysis, additional comorbidities. and High MDM includes amount and/or complexity of data reviewed/ordered [ previous or external records, resulted lab(s)/test(s), ordered lab(s)/test(s), independent test interpretation and other healthcare professional discussion] and described risk of complication, morbidity or mortality of management as documented Diagnoses Closed right hip fracture S72.001A Hyperkalemia E87.5
[2025-01-31 11:36] LABS: Potassium 6.8 mmol/L (3.5-5.1)
--- NOTE | 2025-01-31 11:36 | ECG_ITS ---
[facility] Test Date: 2025-01-31 Pat Name: Leopoldo Schaefer Department: Room: 257 Gender: Male Producer Director: : 1975 Requested By: Florencia Null Order Number: [id number] Roderick MD: Shanna Sosa M.D. Measurements Intervals [place] Rate: 83 P: 0 MT: 0 QRS: 267 QRSD: 119 T: 76 QT: 394 QTc: 465 Interpretive Statements ATRIAL FIBRILLATION RIGHT AXIS DEVIATION [QRS AXIS > 100] LOW QRS VOLTAGE IN EXTREMITY LEADS [QRS DEFLECTION < 0.5 mV IN LIMB LEADS] MODERATE INTRAVENTRICULAR CONDUCTION DELAY [110+ ms QRS DURATION] Compared to ECG 01/30/2025 14:44:20 Low QRS voltage now present Electronically Signed On 01-31-2025 21:53:38 LEGAL BILLER by Shanna Sosa M.D. [email or web address]
[2025-01-31] MEDS: HYDROmorphone 0.5 MG/0.5 ML INJ IVP (11:47)
[2025-01-31] MEDS: ondansetron 2 mg/ML SDV 2 mL 4 MG IVP (11:47)
[2025-01-31] MEDS: insulin regular-human 100 units/1 mL 10 UNIT IVP (11:52)
--- NOTE | 2025-01-31 11:52 | PM.CONSULT ---
Providers/Reason For Consult Consulting Physician/Specialty*: kommana/Nephrology Reason for Consult*: esrd Attending Physician: Mukesh Salazar Primary Care Provider: Ras Joy History of Present Illness History of Present Illness Leopoldo Schaefer is a 49 year old male patient is a 49-year-old male with past medical history of atrial fibrillation, hypertension, end-stage renal disease on dialysis per Thursday schedule, sleep apnea, CO2 of was brought to the emergency department after he suffered a fall at home and complaining of right hip pain. He was found to have right femoral neck fracture. Lab data significant for hyperkalemia with potassium of 6.8. Patient reports that he underwent dialysis yesterday. Review of Systems Narrative: negative Medications/Allergies Home Medications ?Medication ?Instructions ?Recorded ?Confirmed ?Last Taken ?Type trazodone 150 mg tablet 150 mg PO BEDTIME 01/17/24 01/31/25 09/20/24 20:00 History furosemide 80 mg tablet 80 mg PO BID #60 tabs 10/17/24 01/31/25 09/21/24 Rx apixaban 5 mg tablet (Eliquis) 5 mg PO BID@0900,2100 30 days #60 01/25/25 01/31/25 01/30/25 Rx tabs aspirin 81 mg tablet,delayed 81 mg PO DAILY 30 days #30 tabs 01/25/25 01/31/25 Unknown Rx release atorvastatin 40 mg tablet 40 mg PO BEDTIME 30 days #30 tabs 01/25/25 01/31/25 01/30/25 20:00 Rx diltiazem HCl 120 mg 120 mg PO DAILY 30 days #30 caps 01/25/25 01/31/25 01/30/25 Rx capsule,extended release 24 hr linezolid 600 mg tablet (Zyvox) 600 mg PO BID 7 days #14 tabs 01/25/25 01/31/25 01/30/25 Rx metoprolol succinate 25 mg 25 mg PO DAILY 30 days #30 tabs 01/25/25 01/31/25 01/30/25 Rx tablet,extended release 24 hr metronidazole 500 mg tablet 500 mg PO Q8H 7 days #21 tabs 01/25/25 01/31/25 01/30/25 Rx azithromycin 250 mg tablet 250 mg PO BIDWM 01/31/25 01/31/25 01/30/25 History Allergies Allergy/AdvReac Type Severity Reaction Status Date / Time lisinopril Allergy swelling Verified 01/30/25 14:07 Penicillins Allergy ALGY-Hives Verified 01/30/25 14:07 tramadol Allergy ALGY-Hives Verified 01/30/25 14:07 PFSH Acute PFSH: Medical History (Updated 01/31/25 @ 11:47 by Florencia Null MD) Diastolic CHF Atrial fibrillation with RVR End stage kidney disease Uncontrolled hypertension Hypoglycemia Atrial fibrillation with RVR COPD exacerbation Pulmonary edema Non-compliance with renal dialysis End stage renal disease Anxiety and depression Obstructive sleep apnea Allergic dermatitis ESRD (end stage renal disease) Pleural effusion Dialysis patient Hypertensive emergency Atrial fibrillation/flutter Chest pain Elevated troponin Resistant hypertension Paroxysmal atrial fibrillation with RVR End stage chronic kidney disease Anemia Sebaceous cyst GERD (gastroesophageal reflux disease) Insomnia COPD (chronic obstructive pulmonary disease) Reports he is on 4 L of oxygen at home Hypoxia Anxiety and depression Lower respiratory tract infection Encounter to establish care Vitamin D deficiency Hypertension CRF (chronic renal failure) Surgical History S/P hemodialysis catheter insertion H/O hand surgery right hand with hardware H/O circumcision Presence of peritoneal dialysis catheter S/P dialysis catheter insertion (12/12/19) Removed on 04/04/2020 Family History Other Adopted Denies family history of Anesthesia complication Bleeding disorder Social History Smoking and tobacco/nicotine status: former use of tobacco/nicotine Alcohol intake: never Substance/Drug Use: never Household members: significant other Marital status: Single Current occupational status: disabled Vitals/I&O/Wt Last Vital Signs Temp 98.4 F 01/31/25 10:14 Pulse 87 01/31/25 10:14 Resp 20 H 01/31/25 10:14 BP 118/89 01/31/25 10:14 Pulse Ox 92 01/31/25 10:14 O2 Del Method Room Air 01/31/25 10:14 01/30/25 01/31/25 01/31/25 22:59 06:59 14:59 Intake Total 0 / 0 Balance 0 / 0 Weight last 48 hrs Weight 83.915 kg Physical Exam Narrative: Patient is awake alert, no acute distress On room air No JVD PERRLA S1 Lungs clear bilaterally Abdomen soft nontender Extremities no pedal edema No skin rash Data 01/31/25 10:59 01/31/25 10:59 A&P Assessment and plan 1. ESRD on dialysis: Plan: 1. End-stage renal disease: On MWF schedule, status post HD yesterday but now has hyperkalemia, will plan on HD today and may require HD again tomorrow. 2. Hyperkalemia: HD as above and on low potassium diet 3. Right hip fracture, patient on Eliquis-now switched to IV heparin drip, management per Ortho 4. Hypertension: Blood pressure controlled 5. History of A-fib Patient evaluated his evaluation. Time spent 40 minutes. PDMP PDMP Reviewed: Not Reviewed Coding Level of Care Code Acute Code for Chg Fwd Diagnoses ESRD on dialysis N18.6; Z99.2
--- NOTE | 2025-01-31 11:54 | PC.NURSE ---
Addendum entered by Brandon Mirza RN 01/31/25 12:00: educated pt on the need for EKG, pt agreed to have EKG. Original Note: PATIENT REFUSING EKG.
[2025-01-31] MEDS: calcium gluconate 0.9% NaCL 1 GM/50 ML PREMIX IV (12:16)
--- NOTE | 2025-01-31 12:37 | PC.PHAR ---
Patient states he took medications on 01/30/25. Patient also states that he gets confused with all the medicine it is too much .Not sure if he takes it correctly.
[2025-01-31] MEDS: heparin drip 25,000 UNIT/500 ML PREMIX 26 UNIT IV (13:39)
[2025-01-31] MEDS: heparin 5,000 unit/mL INJ 1 mL IVP (13:39)
[2025-01-31] MEDS: HYDROmorphone 0.5 MG/0.5 ML INJ 0.4 MG IVP ×2 (15:00→19:43)
--- NOTE | 2025-01-31 15:53 | ECG_ITS ---
[facility] 2025-01[facility]31 Pat Name: Leopoldo Schaefer Department: Room: 257 Gender: Male Sign Designer: : 1975 Requested By: Tsering Fischer Order Number: [id number] Roderick MD: Shanna Sosa M.D. Measurements Intervals [place] Rate: 103 P: 0 OR: 0 QRS: 249 QRSD: 127 T: 70 QT: 362 QTc: 476 Interpretive Statements ATRIAL FIBRILLATION WITH RAPID VENTRICULAR RESPONSE INDETERMINATE AXIS MODERATE INTRAVENTRICULAR CONDUCTION DELAY [110+ ms QRS DURATION] Compared to ECG 01/31/2025 12:02:27 Indeterminate axis now present Right-axis deviation no longer present Electronically Signed On 01-31-2025 21:51:26 AUXILIARY POWER EQUIPMENT OPERATOR by Shanna Sosa M.D. [email or web address]
--- NOTE | 2025-01-31 16:12 | PM.CONSULT ---
Providers/Reason For Consult Consulting Physician/Specialty*: Imer Pérez MD/orthopedic surgery Reason for Consult*: Right femoral neck fracture Attending Physician: Mukesh Salazar Primary Care Provider: Ras Joy History of Present Illness History of Present Illness Leopoldo Schaefer is a 49 year old male who was admitted through the emergency room today after falling at home and injuring his right hip. It appears by history patient was just walking from 1 room to the other when he collapsed. Unsure is whether his hip broke prior to the fall or after the fall. Has a multitude of health issues including end-stage renal disease, congestive heart failure, diabetes. Patient is on chronic dialysis on Wednesdays and Fridays. He also is on Eliquis but has not had a dose since yesterday. When I first interviewed him he is laying in bed with his right leg externally rotated and shortened slightly. Patient is very nonverbal and only answers questions when pressed for any answer. He expresses the fact that he is feeling sorry for himself that he should not be having this many health issues at a young age as he is. I have presented to him the fact he has a fractured hip and that we can replace this with a endoprosthesis and have him back up and walking within a day or so and he does not seem excited about this. He expresses that he is not that interested in any type of surgical intervention. However he does not flat out refused to do this. I have discussed with him and the fact that he has multiple health issues which makes surgery more complicated. If it indicated that we need to hold off the Eliquis for several days in order to clear his system however with being on dialysis it may even take longer. Hospitalist has held his Eliquis however is bridging with heparin drip now. Patient has recently had a cellulitis of his right arm that he still being treated for that makes increased risk of infection with a implant placed. Nursing staff is informing that the patient has refused to have further dialysis at this time and there is potassium is at 6.8 now. This is quite elevated. Review of Systems Narrative: negative Const: Denies: fever(s), chills, body aches or malaise Eyes: Denies: photophobia ENMT: Denies: throat pain or enlarged tonsils Card: Denies: chest pain, edema, pre-syncope or dyspnea on exertion Resp: Denies: dyspnea, productive cough, change in phlegm color or hemoptysis GI: Denies: abdominal pain, nausea, vomiting, diarrhea, constipation, hematochezia or melena : Denies: flank pain, difficulty urinating, urinary frequency or hematuria Musc: Reports: extremity pain; Denies: back pain, joint swelling or joint redness Skin/Breast: Denies: rash or new lesions Neuro: Denies: headache(s) or confusion All/Imm: Denies: acute wheezing Medications/Allergies Home Medications ?Medication ?Instructions ?Recorded ?Confirmed ?Last Taken ?Type trazodone 150 mg tablet 150 mg PO BEDTIME 01/17/24 01/31/25 09/20/24 20:00 History furosemide 80 mg tablet 80 mg PO BID #60 tabs 10/17/24 01/31/25 09/21/24 Rx apixaban 5 mg tablet (Eliquis) 5 mg PO BID@0900,2100 30 days #60 01/25/25 01/31/25 01/30/25 Rx tabs aspirin 81 mg tablet,delayed 81 mg PO DAILY 30 days #30 tabs 01/25/25 01/31/25 Unknown Rx release atorvastatin 40 mg tablet 40 mg PO BEDTIME 30 days #30 tabs 01/25/25 01/31/25 01/30/25 20:00 Rx diltiazem HCl 120 mg 120 mg PO DAILY 30 days #30 caps 01/25/25 01/31/25 01/30/25 Rx capsule,extended release 24 hr linezolid 600 mg tablet (Zyvox) 600 mg PO BID 7 days #14 tabs 01/25/25 01/31/25 01/30/25 Rx metoprolol succinate 25 mg 25 mg PO DAILY 30 days #30 tabs 01/25/25 01/31/25 01/30/25 Rx tablet,extended release 24 hr metronidazole 500 mg tablet 500 mg PO Q8H 7 days #21 tabs 01/25/25 01/31/25 01/30/25 Rx azithromycin 250 mg tablet 250 mg PO BIDWM 01/31/25 01/31/25 01/30/25 History Allergies Allergy/AdvReac Type Severity Reaction Status Date / Time lisinopril Allergy swelling Verified 01/30/25 14:07 Penicillins Allergy ALGY-Hives Verified 01/30/25 14:07 tramadol Allergy ALGY-Hives Verified 01/30/25 14:07 Current Medications Generic Name Dose Route Start Last Admin Trade Name Staci PRN Reason Stop Dose Admin Albuterol/Ipratropium 3 ml 01/31/25 14:00 01/31/25 13:42 Ipratropium-Albuterol 3 Ml Neb INHALATION 3 ml Q6H.RESP FRANCISCO Administration Heparin Sodium (Porcine) 0 unit 01/31/25 11:41 01/31/25 13:39 Heparin 5,000 Unit/Ml Inj 1 Ml IVP 4,600 unit PRN PRN Administration Heparin Weight Based Protocol -Subsequent Bolus Protocol Hydromorphone HCl 0.4 mg 01/31/25 11:34 01/31/25 15:00 Hydromorphone 0.5 Mg/0.5 Ml Inj IVP 0.4 mg Q4H PRN Administration SEVERE PAIN Dextrose 125 mls @ 750 mls/hr 01/31/25 11:36 01/31/25 12:49 D10w IV Infused PRN PRN Infusion HYPOGLYCEMIA Heparin Sodium/Sodium Chloride 25,000 unit in 500 mls @ 0 mls/hr 01/31/25 11:45 01/31/25 13:43 Heparin Drip IV 14.9 unit/kg/hr CONT FRANCISCO 25 mls/hr Protocol Titration Per Protocol PFSH Acute PFSH: Medical History (Updated 01/31/25 @ 16:18 by Imer Pérez MD) Diastolic CHF Atrial fibrillation with RVR End stage kidney disease Uncontrolled hypertension Hypoglycemia Atrial fibrillation with RVR COPD exacerbation Pulmonary edema Non-compliance with renal dialysis End stage renal disease Anxiety and depression Obstructive sleep apnea Allergic dermatitis ESRD (end stage renal disease) Pleural effusion Dialysis patient Hypertensive emergency Atrial fibrillation/flutter Chest pain Elevated troponin Resistant hypertension Paroxysmal atrial fibrillation with RVR End stage chronic kidney disease Anemia Sebaceous cyst GERD (gastroesophageal reflux disease) Insomnia COPD (chronic obstructive pulmonary disease) Reports he is on 4 L of oxygen at home Hypoxia Anxiety and depression Lower respiratory tract infection Encounter to establish care Vitamin D deficiency Hypertension CRF (chronic renal failure) Surgical History S/P hemodialysis catheter insertion H/O hand surgery right hand with hardware H/O circumcision Presence of peritoneal dialysis catheter S/P dialysis catheter insertion (12/12/19) Removed on 04/04/2020 Family History Other Adopted Denies family history of Anesthesia complication Bleeding disorder Social History Smoking and tobacco/nicotine status: former use of tobacco/nicotine Alcohol intake: never Substance/Drug Use: never Household members: significant other Marital status: Single Current occupational status: disabled Dietary Habits: Current diet type/program: regular Vitals/I&O/Wt Last Vital Signs Temp 97.4 F L 01/31/25 15:35 Pulse 95 01/31/25 15:35 Resp 21 H 01/31/25 15:35 BP 140/98 01/31/25 15:35 Pulse Ox 96 01/31/25 15:35 O2 Del Method Nasal Cannula 01/31/25 15:35 O2 Flow Rate 5 01/31/25 13:42 01/31/25 01/31/25 01/31/25 06:59 14:59 22:59 Intake Total 176.733 / 176.733 Balance 176.733 / 176.733 Weight last 48 hrs Weight 199 lb Weight 185 lb Physical Exam Narrative: On orthopedic exam he is laying in bed in a supine position. Right hip is slightly flexed externally rotated. Leg is shortened. Appears to be neurovasc intact distally. He has pain with any motion of his leg. Data 01/31/25 10:59 01/31/25 10:59 A&P Assessment and plan 1. Closed fracture of right hip, initial encounter: From orthopedic standpoint patient has a femoral neck fracture of the right hip. Typical repair for this would be endoprosthetic replacement of the hip. If he was a healthier individual at this young age pinning this fracture would be most appropriate however with his multiple medical problems and poor appearing bone stock on x-ray endoprosthetic replacement would be the recommended surgery at this time. However, at this time it appears that the patient does not wish to participate with dialysis which is only going to worsen his health situation. He is a high risk already with congestive heart failure, A-fib, diabetes, and end-stage renal disease. Even though he is not had Eliquis since last night it still will take longer for this to clear from his system due to the fact that he has chronic renal disease. Nearly as I would consider doing surgery on him his in 48 hours from now. However, I do believe anesthesia needs to be involved and evaluate the patient for anesthetic risk prior to even scheduling any type of surgical intervention. Again, I have offered him an endoprosthetic replacement of his right hip if he agrees to do this. I will speak to him again tomorrow about this since he did not give me an answer today. It is concerning nursing staff indicates he does not wish to participate in his health care now. Plan: At this time we will continue to observe the patient. I will offer surgical intervention if he is willing to proceed with this. I will offer surgery also if he is found to be stable enough to have surgery. However, this may be in a situation where no intervention may be of the best choice. I recommend anesthesia be consulted for their evaluation of the patient and statements on safety of anesthetics for surgery of this type. PDMP PDMP Reviewed: Not Reviewed Consult Attestations Medical Necessity Statement: Patient in need of further medical care as well as surgical intervention for hip fracture Coding Level of Care Code Acute Code for Chg Fwd Diagnoses Closed fracture of right hip, initial encounter S72.001A Encounter type: initial encounter
[2025-01-31] MEDS: FUROsemide 10 mg/mL SDV 10mL 80 MG IVP (16:13)
[2025-01-31] MEDS: dilTIAZem ER (24HR) 120 mg Capsule PO (16:14)
[2025-01-31] MEDS: dilTIAZem 5 mg/mL SDV 5 mL IVP (16:14)
[2025-01-31 19:04] LABS: Potassium 6.9 mmol/L (3.5-5.1)
--- NOTE | 2025-01-31 19:17 | PC.HD ---
Went to pt's room to transport to dialysis but pt refused treatment. Pt's primary RN also in the room and explained to pt that his potassium is high and he could have life threatening arrhythmias without dialysis but he again refused. Dr Fischer then in to see pt hardeep Case and when she tried to explain the need for dialysis he forcefully refused. She started to explain the potential risks of not receiving treatment and he loudly refused. She then suggested doing just a short treatment today and pt very loudly told her to accept his no for an answer, then added that he doesn't like [employer] sales referring to multiple people trying to talk him into taking treatment.
[2025-01-31 21:57] LABS: Partial Thromboplastin Time 100.7 SECONDS (23.9-36.7)
[2025-02-01] VITALS (14 sets, daily range): BP systolic 106–165; BP diastolic 63–97; PULSE 79–130; RESP 16–20; TEMP 36.4–37.2; O2SAT 92–97
[2025-02-01] MEDS: HYDROmorphone 0.5 MG/0.5 ML INJ 0.4 MG IVP ×4 (00:07→14:50)
[2025-02-01] MEDS: dilTIAZem ER (24HR) 120 mg Capsule PO (04:09)
[2025-02-01] MEDS: metoprolol succinate ER (24 HR) 25 mg Tablet PO (04:09)
[2025-02-01 04:43] LABS: Hematocrit 47.8 % (37-53); Hemoglobin 15.40 g/dL (11.27-16.99); Mean Corpuscular HGB Conc 32.2 g/dL (30-55); Mean Corpuscular Hemoglobin 32.6 pg (27-33); Mean Corpuscular Volume 101.3 fl (82-101); Nucleated Red Blood Cells % 0 %; Platelet Count 185 10^3/cmm (157-399); Red Blood Count 4.72 10^6/uL (3.85-5.65); White Blood Count 6.93 10^3/uL (3.29-11.43)
[2025-02-01 05:03] LABS: Alanine Aminotransferase 16 U/L (0-41); Albumin Level 3.9 g/dL (3.5-5.2); Alkaline Phosphatase 230 U/L (40-130); Anion Gap 24.6 (5-19); Aspartate Amino Transferase 13 U/L (0-40); Blood Urea Nitrogen 74 mg/dL (6-20); Calcium 9.1 mg/dL (8.5-10.5); Carbon Dioxide 21 mmol/L (22-29); Chloride 90 mmol/L (98-107); Globulin 3.2 g/dL (1.3-4.6); Glucose 94 mg/dL (65-115); Osmolality Calculated 288 mOsm/kg (285-295); Partial Thromboplastin Time 73.2 SECONDS (23.9-36.7); Sodium 128 mmol/L (136-145); Total Protein 7.1 g/dL (6.6-8.7)
[2025-02-01 05:20] LABS: Potassium 7.6 mmol/L (3.5-5.1)
[2025-02-01] MEDS: calcium gluconate 0.9% NaCL 1 GM/50 ML PREMIX IV (06:20)
--- NOTE | 2025-02-01 08:25 | PC.NURSE ---
Pt to dialysis at this time
--- NOTE | 2025-02-01 09:32 | PC.CHAP ---
Pastoral Care Encounter/Spiritual Assessment Type of Contact [] Declined autocad draftsman visit [] Patient/Family/Request visit [] Outpatient visit [] Follow-up visit [] Physician referral [] Code/Alert [] Routine visit [] Staff referral [] Actively dying [] Patient sleeping [] Family support [] [x] Out of room [] Palliative care [] [] Receiving care in room [] Pre-surgical visit [] Trauma [] Long length of stay [] ICU visit [] Other: Relational/Emotional Strength [] Patient feels connected with others/family/visitors/staff [] Distress [] Loneliness/isolation [] Abandonment Spirituality of Patient [] Person of Manjula [] Attends Catholic of their Manjula [] Believes in Prayer [] Reads Bible or Jain materials [] There are Spiritual issues to be addressed Framing Mechanic Interventions [] Prayer [] Active listening [] Non-anxious presence [] Spiritual/emotional support [] Crisis/trauma care [] Spiritual counseling [] Bereavement support [] Provided bereavement packet [] Provided Bible/devotional materials [] Provided toy/stuffed animal, coloring book to patient or family member [] Provided Communion [] Anointing/Chassell [] Salvation [] Completed spiritual assessment [] Other: Impact on Illness or Injury [] Angry [] Fearful [] Anxious [] Often cries [] Exhaustion [] Unable to work [] Unable to attend judaism [] Unable to walk/stand [] Unable to read [] Unable to drive [] Unable to eat/drink [] Unable to sleep [] Unable to be with family [] Patient intubated [] Other: Summary Time spent with patient
--- NOTE | 2025-02-01 10:24 | PM.PN ---
Subjective Subjective: The patient was seen and examined on dialysis. The patient is not a good mood. The patient does not want surgery. The patient complains of pain and shortness of breath. Medications: Reviewed: Yes Medication Review Details: Current Medications Acetaminophen (Acetaminophen 325 Mg Tablet) 650 mg PO Q6H PRN PRN Reason: Mild/Mod Pain Or Temp >/= 101 Albuterol/Ipratropium (Ipratropium-Albuterol 3 Ml Neb) 3 ml INHALATION Q6H PRN PRN Reason: SHORTNESS OF BREATH Albuterol/Ipratropium (Ipratropium-Albuterol 3 Ml Neb) 3 ml INHALATION Q6H.RESP FRANCISCO Last Admin: 02/01/25 07:57 Dose: 3 ml Aspirin (Aspirin 81 Mg Ec Tablet) 81 mg PO DAILY [facility] Last Admin: 02/01/25 04:09 Dose: 81 mg Atorvastatin Calcium (Atorvastatin 40 Mg Tablet) 40 mg PO BEDTIME FRANCISCO Last Admin: 02/01/25 00:06 Dose: 40 mg Azithromycin (Azithromycin 250 Mg Tablet) 250 mg PO BIDWM [facility]; Protocol Last Admin: 02/01/25 07:43 Dose: 250 mg Diltiazem HCl (Diltiazem Er (24hr) 120 Mg Capsule) 120 mg PO DAILY FRANCISCO Last Admin: 02/01/25 04:09 Dose: 120 mg Heparin Sodium (Porcine) (Heparin 5,000 Unit/Ml Inj 1 Ml) 0 unit IVP PRN PRN; Protocol PRN Reason: Heparin Weight Based Protocol -Subsequent Bolus Last Admin: 01/31/25 13:39 Dose: 4,600 unit Hydromorphone HCl (Hydromorphone 0.5 Mg/0.5 Ml Inj) 0.4 mg IVP Q4H PRN PRN Reason: SEVERE PAIN Last Admin: 02/01/25 08:27 Dose: 0.4 mg Dextrose (D10w) 125 mls @ 750 mls/hr IV PRN PRN PRN Reason: HYPOGLYCEMIA Last Infusion: 01/31/25 12:49 Dose: Infused Heparin Sodium/Sodium Chloride (Heparin Drip) 25,000 unit in 500 mls @ 0 mls/hr IV CONT FRANCISCO; Protocol Last Titration: 02/01/25 04:32 Dose: 11.92 unit/kg/hr, 20 mls/hr Sodium Chloride (Sodium Chloride 0.9%) 1,000 mls @ 0 mls/hr IV .Q0M PRN PRN Reason: hypotension or symptomatic Albumin Human (Albumin) 12.5 gm in 50 mls @ 60 mls/hr IV PRN PRN PRN Reason: Hypotension and/or symptomatic Linezolid (Linezolid 600 Mg Tablet) 600 mg PO BID [facility]; Protocol Last Admin: 02/01/25 04:09 Dose: 600 mg Metoprolol Succinate (Metoprolol Succinate Er (24 Hr) 25 Mg Tablet) 25 mg PO DAILY [facility] Last Admin: 02/01/25 04:09 Dose: 25 mg Metronidazole (Metronidazole 500 Mg Tablet) 500 mg PO Q8H [facility] Last Admin: 02/01/25 00:17 Dose: 500 mg Ondansetron HCl (Ondansetron 2 Mg/Ml Sdv 2 Ml) 4 mg IVP Q8H PRN PRN Reason: vomiting, or N/V if npo Trazodone HCl (Trazodone 150 Mg Tablet) 150 mg PO BEDTIME [facility] Last Admin: 02/01/25 00:06 Dose: 150 mg Vitals/I&O/Wt Last Vital Signs Temp 97.7 F 02/01/25 08:52 Pulse 79 02/01/25 08:52 Resp 20 H 02/01/25 08:52 BP 150/83 02/01/25 08:52 Pulse Ox 93 02/01/25 08:52 O2 Del Method Nasal Cannula 02/01/25 08:52 O2 Flow Rate 3 02/01/25 08:00 01/31/25 02/01/25 02/01/25 22:59 06:59 14:59 Intake Total 272.917 / 449.650 126 / 575.650 110 / 110 Output Total 0 / 0 Balance 272.917 / 449.650 126 / 575.650 110 / 110 Weight last 48 hrs Weight 91.626 kg Weight 90.265 kg Weight 83.915 kg Physical Exam Narrative: Obese man in bed on dialysis. Vital signs noted. Patient using nasal cannula oxygen. HEENT normocephalic atraumatic. Neck is supple Lungs crackles. Heart irregular positive S1-S2. Abdomen is soft positive bowel sounds. Extremities trace edema. Upper extremity AV fistula does not work. Patient has subclavian permacath. Neuro awake alert oriented x 3 Data 02/01/25 04:32 02/01/25 04:32 A&P Assessment and plan 1. ESRD on dialysis: 49-year-old gentleman ESRD patient has dialysis Thursday and Thursday. He is giving me a hard time to do extra dialysis. 2. Hemoglobin is 15. 3. Patient on Eliquis for A-fib at home. Agree with holding at this time. 4. Hyperkalemia doing dialysis now. Would add Lokelma or Veltassa if available on nondialysis days. If not can add Kayexalate 15 g nondialysis days. 5. Check phosphorus. 6. Right hip fracture as per Dr. Pérez 7. COPD 8. Heart failure with preserved ejection fraction. Patient was seen and examined using her visual primary date of her nurse. Patient consented to telehealth and to dialysis. Plan: See above. PDMP PDMP Reviewed: Not Reviewed Attestations Medical Necessity Statement*: ESRD hyperkalemia hip fracture Time Spent in Patient Care: Greater than 35 minutes (>than 50% of time spent in counselling and/or direct pt care on unit). Coding Level of Care Code Acute Code for Chg Fwd Diagnoses ESRD on dialysis N18.6; Z99.2
[2025-02-01 11:22] LABS: Partial Thromboplastin Time 86.7 SECONDS (23.9-36.7)
[2025-02-01] MEDS: heparin drip 25,000 UNIT/500 ML PREMIX 17 UNIT IV (11:30)
--- NOTE | 2025-02-01 13:21 | P.PN_ITS ---
Subjective 2 Subjective: Seen during hemodialysis, sleepy and wakes up to voice. Doing all right at that time, later reporting generalized itching requesting for Benadryl. Later also complaining of pain and reporting hydromorphone inadequate for pain control. Vitals/I&O/Wt Last Vital Signs Temp 97.7 F 02/01/25 11:15 Pulse 113 H 02/01/25 11:15 Resp 18 02/01/25 11:15 BP 122/73 02/01/25 11:15 Pulse Ox 93 02/01/25 11:15 O2 Del Method Nasal Cannula 02/01/25 11:15 O2 Flow Rate 3 02/01/25 08:00 01/31/25 02/01/25 02/01/25 22:59 06:59 14:59 Intake Total 272.917 / 449.650 126 / 575.650 249.333 / 249.333 Output Total 0 / 0 Balance 272.917 / 449.650 126 / 575.650 249.333 / 249.333 Weight last 48 hrs Weight 91.626 kg Weight 90.265 kg Weight 83.915 kg Physical Exam 2 Narrative: Undergoing dialysis. Const: COMMON NORMALS: patient oriented x3 GENERAL APPEARANCE: cooperative OTHER: Wakes up to voice. HENMT: COMMON NORMALS: oropharynx normal Neck/C-Spine: COMMON NORMALS: no JVD Resp: COMMON NORMALS: normal respiratory effort and clear to auscultation bilaterally AUSCULTATION: clear to auscultation bilaterally and wheezes (Minimal wheeze RLL) Cardio: COMMON NORMALS: no JVD, regular rhythm, S1 normal heart sound present, S2 normal heart sound present and No murmurs present (Cardio) RHYTHM: regular rhythm HEART SOUNDS: S1 normal heart sound present and S2 normal heart sound present GI: COMMON NORMALS: Normal to inspection, nondistended, normoactive bowel sounds present, Soft to palpation and non-tender PALPATION: Yes Soft to palpation Extremity: COMMON NORMALS: no joint enlargement and no pedal edema N ARRATIVE EXTREMITY EXAM: Everted RLE. Neuro: COMMON NORMALS: patient oriented x3 and moves all extremities Skin: COMMON NORMALS: no rashes or lesions noted GENERAL SKIN EXAM: no rashes or lesions noted Data 02/01/25 04:32 02/01/25 04:32 A&P Assessment and plan 1. Closed fracture of right hip with delayed healing, subsequent encounter: Reviewed vitals, CBC, reassess blood counts with risk of bleeding, on anticoagulation. Eliquis on hold. Bridging with heparin drip due to recent venous thrombosis of right upper extremity and atrial fibrillation. He tells me has discussed surgical intervention with orthopedics. Reviewed orthopedic documentation. He tells me plan would be for joint replacement for which he states he is not thrilled about the idea, but he is agreeable due to the specific clinical findings. Understands the risks. Tentative plan for hemiarthroplasty tomorrow. Hold heparin drip 6 hours before hand. Postoperatively timing of anticoagulation resumption as per surgery. Being evaluated by anesthesia. Discussed with anesthesiologist. Discussed with nursing, rehabilitation caseworker. Patient stated Dilaudid has not worked for his pain control. Switched over to IV morphine as needed. Acetaminophen. Add incentive spirometer. 2. Hyperkalemia: Worsened hyperkalemia this morning up to 7.6. Agreed to and undergoing dialysis today as per nephrology, repeat chemistries are requested for the morning. Will see if he will allow to repeat chemistry tonight, although patient preferred to limit blood draws/needlesticks yesterday. Plan: Acute pain due to injury : Significant pain associated with right hip fracture and other musculoskeletal complaints. - Switching to IV morphine as above and he states Dilaudid has not controlled his pain. Atrial fibrillation on anticoagulation (apixaban) : History of atrial fibrillation on apixaban; last dose taken last night. Anticoagulation management adjusted perioperatively. - Hold apixaban (Eliquis). - Bridge with heparin drip while in the hospital. Stop 6 hours prior to surgery on . Monitor for risk of bleeding, monitor PTTs. - Continue to monitor telemetry for atrial fibrillation and anticoagulation as above. End-stage renal disease on hemodialysis : ESRD on Thursday/Thursday/Thursday schedule; needs in-hospital dialysis coordination. - Request nephrology consultation for continued hemodialysis with ESRD. Chronic obstructive pulmonary disease (not in exacerbation) : COPD without current exacerbation; mild wheeze on exam. - Add breathing treatments scheduled as needed for COPD. Hypertension : Chronic hypertension; ongoing home regimen referenced. - Continue diltiazem for blood pressure control. - Continue metoprolol for blood pressure control. Congestive heart failure (not in exacerbation) : CHF without current signs of exacerbation per plan note. - Continue furosemide (Lasix). Right upper extremity edema with reported prior venous thrombosis : Persistent right arm swelling with patient-reported prior venous thrombosis; on anticoagulation. - Elevate right upper extremity when possible. Recent cellulitis and cat scratch disease : Recent hospitalization for right arm cellulitis and cat scratch disease; improving without fevers at home. - Continue antibiotics as recently prescribed to complete the course. Requesting to confirm home medications. PDMP PDMP Reviewed: Not Reviewed Attestations 2 Medical Necessity Statement*: Continue admission for assessment and management of right hip fracture pending surgical repair and gentleman with multiple comorbidities including ESRD on dialysis, right upper extremity venous thrombosis and A-fib, CHF, and other comorbidities. and High MDM includes amount and/or complexity of data reviewed/ordered [ previous or external records, resulted lab(s)/test(s), ordered lab(s)/test(s) and other healthcare professional discussion] and described risk of complication, morbidity or mortality of management as documented Diagnoses Closed fracture of right hip with delayed healing, subsequent encounter S72.001G Encounter type: subsequent encounter Fracture healing: with delayed healing Hyperkalemia E87.5
--- NOTE | 2025-02-01 13:37 | ANES.PREANE2 ---
Pre-Anesthetic Assessment Height/Weight: Height 5 ft 10 in Weight 202 lb Temp Pulse Resp BP Pulse Ox O2 Del Method O2 Flow Rate 97.7 F 113 H 18 122/73 93 Nasal Cannula 3 02/01/25 11:15 02/01/25 11:15 02/01/25 11:15 02/01/25 11:15 02/01/25 11:15 02/01/25 11:15 02/01/25 08:00 Preop Diagnosis: Hip fracture Was Beta Fanny taken within 24 hours: Yes Was Clonidine taken within 24 hours: N/A Exam alert and oriented x 3 Airway Submandibular: within normal limits Cervical ROM: within normal limits Mallampati: Class III Comments: Comments: Poor dentition, denies any loose teeth Anesthetic Plan ASA status: 4 Anesthesia: General Other: Patient initially came in on 01/31/2025 after experiencing a fall resulting in a hip fracture. No prior issues with anesthesia History of ESRD on hemodialysis Thursday/Thursday. Received dialysis yesterday GIGI and COPD. Patient uses 5 L O2 at baseline Patient recently had a hospitalization for right arm cellulitis and cat scratch disease Last dose of Eliquis was 01/30/2025 Limited resuscitation on chart, patient stated that he did not want CPR but would be okay with the ventilator if he had severe pneumonia. A-fib with RVR overnight. Was given Cardizem and metoprolol. He also received an amiodarone bolus Patient has been refusing multiple stages of treatment during hospitalization. Refused dialysis yesterday. K+ 5.1 this a.m. Plan to recheck labs after dialysis Echo performed 01/23/2025 showing EF of 60% with thickened septal wall and abnormal septal motion consistent with conduction abnormality Extensive conversation had with patient about foregoing DNR status. Patient is adamant that he does not want chest compressions during the intraoperative period. He states that we are able to shock him but no chest compressions. We will honor this but do everything else including intubation and chemical code if necessary Plan for [place] Medications/Allergies Home Medications ?Medication ?Instructions ?Recorded ?Confirmed ?Last Taken ?Type trazodone 150 mg tablet 150 mg PO BEDTIME 01/17/24 01/31/25 09/20/24 20:00 History furosemide 80 mg tablet 80 mg PO BID #60 tabs 0701/31/25 09/21/24 Rx apixaban 5 mg tablet (Eliquis) 5 mg PO BID@0900,2100 30 days #60 01/25/25 01/31/25 01/30/25 Rx tabs aspirin 81 mg tablet,delayed 81 mg PO DAILY 30 days #30 tabs 01/25/25 01/31/25 Unknown Rx release atorvastatin 40 mg tablet 40 mg PO BEDTIME 30 days #30 tabs 01/25/25 01/31/25 01/30/25 20:00 Rx diltiazem HCl 120 mg 120 mg PO DAILY 30 days #30 caps 01/25/25 01/31/25 01/30/25 Rx capsule,extended release 24 hr linezolid 600 mg tablet (Zyvox) 600 mg PO BID 7 days #14 tabs 01/25/25 01/31/25 01/30/25 Rx metoprolol succinate 25 mg 25 mg PO DAILY 30 days #30 tabs 01/25/25 01/31/25 01/30/25 Rx tablet,extended release 24 hr metronidazole 500 mg tablet 500 mg PO Q8H 7 days #21 tabs 01/25/25 01/31/25 01/30/25 Rx azithromycin 250 mg tablet 250 mg PO BIDWM 01/31/25 01/31/25 01/30/25 History Allergies Allergy/AdvReac Type Severity Reaction Status Date / Time lisinopril Allergy swelling Verified 01/30/25 14:07 Penicillins Allergy ALGY-Hives Verified 01/30/25 14:07 tramadol Allergy ALGY-Hives Verified 01/30/25 14:07 Current Medications Generic Name Dose Route Start Last Admin Trade Name Jhoanq PRN Reason Stop Dose Admin Albuterol/Ipratropium 3 ml 01/31/25 14:00 02/01/25 07:57 Ipratropium-Albuterol 3 Ml Neb INHALATION 3 ml Q6H.RESP FRANCISCO Administration Aspirin 81 mg 02/01/25 05:00 02/01/25 04:09 Aspirin 81 Mg Ec Tablet PO 81 mg DAILY FRANCISCO Administration Atorvastatin Calcium 40 mg 01/31/25 21:00 02/01/25 00:06 Atorvastatin 40 Mg Tablet PO 40 mg BEDTIME FRANCISCO Administration Azithromycin 250 mg 01/31/25 18:00 02/01/25 07:43 Azithromycin 250 Mg Tablet PO 250 mg BIDWM FRANCISCO Administration Protocol Cyclobenzaprine HCl 5 mg 02/01/25 13:14 02/01/25 13:23 Cyclobenzaprine 10 Mg Tablet PO 5 mg TID PRN Administration MUSCLE SPASMS Diltiazem HCl 120 mg 01/31/25 16:06 02/01/25 04:09 Diltiazem Er (24hr) 120 Mg Capsule PO 120 mg DAILY FRANCISCO Administration Heparin Sodium (Porcine) 0 unit 01/31/25 11:41 01/31/25 13:39 Heparin 5,000 Unit/Ml Inj 1 Ml IVP 4,600 unit PRN PRN Administration Heparin Weight Based Protocol -Subsequent Bolus Protocol Hydromorphone HCl 0.4 mg 01/31/25 11:34 02/01/25 08:27 Hydromorphone 0.5 Mg/0.5 Ml Inj IVP 0.4 mg Q4H PRN Administration SEVERE PAIN Dextrose 125 mls @ 750 mls/hr 01/31/25 11:36 01/31/25 12:49 D10w IV Infused PRN PRN Infusion HYPOGLYCEMIA Heparin Sodium/Sodium Chloride 25,000 unit in 500 mls @ 0 mls/hr 01/31/25 11:45 02/01/25 11:30 Heparin Drip IV 10.13 unit/kg/hr CONT FRANCISCO 17 mls/hr Protocol Administration Per Protocol Linezolid 600 mg 01/31/25 17:00 02/01/25 04:09 Linezolid 600 Mg Tablet PO 600 mg BID FRANCISCO Administration Protocol Metoprolol Succinate 25 mg 02/01/25 05:00 02/01/25 04:09 Metoprolol Succinate Er (24 Hr) 25 Mg Tablet PO 25 mg DAILY FRANCISCO Administration Metronidazole 500 mg 01/31/25 16:00 02/01/25 13:23 Metronidazole 500 Mg Tablet PO 500 mg Q8H FRANCISCO Administration Trazodone HCl 150 mg 01/31/25 21:00 02/01/25 00:06 Trazodone 150 Mg Tablet PO 150 mg BEDTIME FRANCISCO Administration Additional Medication Information Current Medications Acetaminophen (Acetaminophen 325 Mg Tablet) 650 mg PO Q6H PRN PRN Reason: Mild/Mod Pain Or Temp >/= 101 Albuterol/Ipratropium (Ipratropium-Albuterol 3 Ml Neb) 3 ml INHALATION Q6H PRN PRN Reason: SHORTNESS OF BREATH Albuterol/Ipratropium (Ipratropium-Albuterol 3 Ml Neb) 3 ml INHALATION Q6H.RESP FRANCISCO Last Admin: 02/01/25 07:57 Dose: 3 ml Aspirin (Aspirin 81 Mg Ec Tablet) 81 mg PO DAILY FRANCISCO Last Admin: 02/01/25 04:09 Dose: 81 mg Atorvastatin Calcium (Atorvastatin 40 Mg Tablet) 40 mg PO BEDTIME FRANCISCO Last Admin: 02/01/25 00:06 Dose: 40 mg Azithromycin (Azithromycin 250 Mg Tablet) 250 mg PO BIDWM [facility]; Protocol Last Admin: 02/01/25 07:43 Dose: 250 mg Diltiazem HCl (Diltiazem Er (24hr) 120 Mg Capsule) 120 mg PO DAILY [facility] Last Admin: 02/01/25 04:09 Dose: 120 mg Heparin Sodium (Porcine) (Heparin 5,000 Unit/Ml Inj 1 Ml) 0 unit IVP PRN PRN; Protocol PRN Reason: Heparin Weight Based Protocol -Subsequent Bolus Last Admin: 01/31/25 13:39 Dose: 4,600 unit Hydromorphone HCl (Hydromorphone 0.5 Mg/0.5 Ml Inj) 0.4 mg IVP Q4H PRN PRN Reason: SEVERE PAIN Last Admin: 02/01/25 08:27 Dose: 0.4 mg Dextrose (D10w) 125 mls @ 750 mls/hr IV PRN PRN PRN Reason: HYPOGLYCEMIA Last Infusion: 01/31/25 12:49 Dose: Infused Heparin Sodium/Sodium Chloride (Heparin Drip) 25,000 unit in 500 mls @ 0 mls/hr IV CONT FRANCISCO; Protocol Last Titration: 02/01/25 04:32 Dose: 11.92 unit/kg/hr, 20 mls/hr Sodium Chloride (Sodium Chloride 0.9%) 1,000 mls @ 0 mls/hr IV .Q0M PRN PRN Reason: hypotension or symptomatic Albumin Human (Albumin) 12.5 gm in 50 mls @ 60 mls/hr IV PRN PRN PRN Reason: Hypotension and/or symptomatic Linezolid (Linezolid 600 Mg Tablet) 600 mg PO BID [facility]; Protocol Last Admin: 02/01/25 04:09 Dose: 600 mg Metoprolol Succinate (Metoprolol Succinate Er (24 Hr) 25 Mg Tablet) 25 mg PO DAILY [facility] Last Admin: 02/01/25 04:09 Dose: 25 mg Metronidazole (Metronidazole 500 Mg Tablet) 500 mg PO Q8H [facility] Last Admin: 02/01/25 00:17 Dose: 500 mg Ondansetron HCl (Ondansetron 2 Mg/Ml Sdv 2 Ml) 4 mg IVP Q8H PRN PRN Reason: vomiting, or N/V if npo Trazodone HCl (Trazodone 150 Mg Tablet) 150 mg PO BEDTIME [facility] Last Admin: 02/01/25 00:06 Dose: 150 mg PFSH Anesthesia Medical History (Updated 02/03/25 @ 10:25 by Mukesh Salazar MD) Diastolic CHF Atrial fibrillation with RVR End stage kidney disease Uncontrolled hypertension Hypoglycemia Atrial fibrillation with RVR COPD exacerbation Pulmonary edema Non-compliance with renal dialysis End stage renal disease Anxiety and depression Obstructive sleep apnea Allergic dermatitis ESRD (end stage renal disease) Pleural effusion Dialysis patient Hypertensive emergency Atrial fibrillation/flutter Chest pain Elevated troponin Resistant hypertension Paroxysmal atrial fibrillation with RVR End stage chronic kidney disease Anemia Sebaceous cyst GERD (gastroesophageal reflux disease) Insomnia COPD (chronic obstructive pulmonary disease) Reports he is on 4 L of oxygen at home Hypoxia Anxiety and depression Lower respiratory tract infection Encounter to establish care Vitamin D deficiency Hypertension CRF (chronic renal failure) Surgical History S/P hemodialysis catheter insertion H/O hand surgery right hand with hardware H/O circumcision Presence of peritoneal dialysis catheter S/P dialysis catheter insertion (12/12/19) Removed on 04/04/2020 Family History Other Adopted Denies family history of Anesthesia complication Bleeding disorder Social History Smoking and tobacco/nicotine status: former use of tobacco/nicotine Alcohol intake: never Substance/Drug Use: never Household members: significant other Marital status: Single Current occupational status: disabled Data Anesthesia 02/03/25 02:39 02/03/25 02:39 Short CBC 01/31/25 02/01/25 Range/Units 10:59 04:32 WBC 7.41 6.93 (3.29-11.43) 10^3/uL Hgb 15.20 15.40 (11.27-16.99) g/dL Hct 48.2 47.8 (37-53) % MCV 102.1 H 101.3 H (82-101) fl Plt Count 222 185 (157-399) 10^3/cmm Neut % (Auto) 74.3 75.5 % Neut # (Auto) 5.50 5.23 (1.8-7.7) 10^3/uL BMP 01/31/25 01/31/25 01/31/25 10:59 17:36 18:26 Sodium 134 L Potassium 6.8 H* Cancelled 6.9 H* Chloride 93 L Carbon Dioxide 23 BUN 65 H Creatinine 12.0 H* Glucose 83 Calcium 9.1 02/01/25 04:32 Sodium 128 L Potassium 7.6 H* Chloride 90 L Carbon Dioxide 21 L BUN 74 H Creatinine 12.5 H* Glucose 94 Calcium 9.1 Liver Function 01/31/25 02/01/25 Range/Units 10:59 04:32 Total Bilirubin 0.5 0.5 (0.15-1.2) mg/dL AST 16 13 (0-40) U/L ALT 19 16 (0-41) U/L Alkaline Phosphatase 238 H 230 H (40-130) U/L Albumin 3.8 3.9 (3.5-5.2) g/dL Coags 01/31/25 01/31/25 01/31/25 10:59 20:07 21:28 PT 16.40 H INR 1.23 H APTT Cancelled 100.7 H 02/01/25 02/01/25 04:32 10:53 PT INR APTT 73.2 H 86.7 H Cardiac Studies: Echocardiogram 01/23/25 Echocardiogram Limited Views 10/16/24 Sestamibi Stress Test (Cardiology) 01/23/25
--- NOTE | 2025-02-01 15:36 | P.PN_ITS ---
Subjective 2 Subjective: Patient admitted yesterday with right hip fracture. Also multiple medical issues. Initially patient was refusing any medical care however by this morning was willing to have labs drawn as well as dialysis due to elevated potassium. Appears to be doing better now and after discussion with other physicians he is willing to proceed with surgical intervention at this point. I have interviewed and this afternoon and he is agreeable to a endoprosthetic replacement of his right hip. He indicates he has no further questions. Anesthesia has seen him and indicates that they are willing to go ahead with surgery tomorrow as long as his labs have improved after dialysis today. Plan at this time is for endoprosthetic replacement the right hip secondary to femoral neck fracture. Vitals/I&O/Wt Last Vital Signs Temp 97.5 F L 02/01/25 15:32 Pulse 104 H 02/01/25 15:32 Resp 18 02/01/25 15:32 BP 165/97 02/01/25 15:32 Pulse Ox 95 02/01/25 15:32 O2 Del Method Nasal Cannula 02/01/25 15:32 O2 Flow Rate 3 02/01/25 14:00 02/01/25 02/01/25 02/01/25 06:59 14:59 22:59 Intake Total 126 / 575.650 989.333 / 989.333 Output Total 3502 / 3502 Balance 126 / 575.650 -2512.667 / -2512.667 Weight last 48 hrs Weight 196 lb 3.382 oz Weight 202 lb Weight 199 lb Weight 185 lb Data 02/01/25 04:32 02/01/25 04:32 A&P Assessment and plan 1. Closed fracture of right hip with delayed healing, subsequent encounter: Patient with right femoral neck fracture patient is in need of the fracture repair which has been offered. Surgery offered is a endoprosthetic replacement of his right hip to allow him to return to ambulatory status as soon as possible. Plan: Plan is surgical intervention for right hip fracture tomorrow on 02/02/2025. Endoprosthetic replacement right hip PDMP PDMP Reviewed: Not Reviewed Attestations 2 Medical Necessity Statement*: Patient is need of surgical repair of his hip as well as continue medical care. Coding Level of Care Code Acute Code for [facility] F[facility] Diagnoses Closed fracture of right hip with delayed healing, subsequent encounter S72.001G Encounter type: subsequent encounter Fracture healing: with delayed healing
[2025-02-01 18:11] LABS: Blood Urea Nitrogen 47 mg/dL (6-20); Calcium 8.7 mg/dL (8.5-10.5); Carbon Dioxide 22 mmol/L (22-29); Chloride 96 mmol/L (98-107); Glucose 97 mg/dL (65-115); Osmolality Calculated 292 mOsm/kg (285-295); Sodium 135 mmol/L (136-145)
[2025-02-01 18:12] LABS: Partial Thromboplastin Time 62.0 SECONDS (23.9-36.7)
[2025-02-01 18:13] LABS: Anion Gap 22.0 (5-19); Potassium 5.0 mmol/L (3.5-5.1)
[2025-02-01] MEDS: morphine 4 mg/mL SDV 1 mL IVP (20:16)
[2025-02-02] VITALS (20 sets, daily range): BP systolic 106–148; BP diastolic 59–84; PULSE 78–124; RESP 16–21; TEMP 36.5–37.5; O2SAT 92–99
[2025-02-02] MEDS: morphine 4 mg/mL SDV 1 mL IVP ×5 (00:53→22:49)
[2025-02-02 01:21] LABS: Partial Thromboplastin Time 64.0 SECONDS (23.9-36.7)
[2025-02-02] MEDS: metoprolol succinate ER (24 HR) 25 mg Tablet PO (05:20)
[2025-02-02] MEDS: dilTIAZem ER (24HR) 120 mg Capsule PO (05:20)
[2025-02-02] MEDS: ondansetron 2 mg/ML SDV 2 mL 4 MG IVP (05:20)
[2025-02-02 06:24] LABS: Hematocrit 47.6 % (37-53); Hemoglobin 15.30 g/dL (11.27-16.99); Mean Corpuscular HGB Conc 32.1 g/dL (30-55); Mean Corpuscular Hemoglobin 32.6 pg (27-33); Mean Corpuscular Volume 101.5 fl (82-101); Nucleated Red Blood Cells % 0 %; Platelet Count 162 10^3/cmm (157-399); Red Blood Count 4.69 10^6/uL (3.85-5.65); White Blood Count 6.40 10^3/uL (3.29-11.43)
[2025-02-02 06:42] LABS: Alanine Aminotransferase 12 U/L (0-41); Albumin Level 3.8 g/dL (3.5-5.2); Alkaline Phosphatase 219 U/L (40-130); Aspartate Amino Transferase 12 U/L (0-40); Blood Urea Nitrogen 51 mg/dL (6-20); Calcium 9.1 mg/dL (8.5-10.5); Carbon Dioxide 20 mmol/L (22-29); Chloride 95 mmol/L (98-107); Globulin 2.7 g/dL (1.3-4.6); Glucose 113 mg/dL (65-115); Osmolality Calculated 296 mOsm/kg (285-295); Sodium 136 mmol/L (136-145); Total Protein 6.5 g/dL (6.6-8.7)
[2025-02-02 06:47] LABS: Magnesium 2.0 mg/dL (1.7-2.3)
[2025-02-02 07:20] LABS: Anion Gap 26.5 (5-19); Potassium 5.5 mmol/L (3.5-5.1)
--- NOTE | 2025-02-02 08:47 | PM.PN ---
Subjective Subjective: The patient is seen and examined. Patient is upset about needing surgery and about being in the hospital Being on dialysis. He has no other complaints at this time no changes medical review of systems Medications: Reviewed: Yes Medication Review Details: Current Medications Acetaminophen (Acetaminophen 325 Mg Tablet) 650 mg PO Q6H PRN PRN Reason: Mild/Mod Pain Or Temp >/= 101 Albuterol/Ipratropium (Ipratropium-Albuterol 3 Ml Neb) 3 ml INHALATION Q6H PRN PRN Reason: SHORTNESS OF BREATH Albuterol/Ipratropium (Ipratropium-Albuterol 3 Ml Neb) 3 ml INHALATION Q6H.RESP FRANCISCO Last Admin: 02/02/25 07:48 Dose: Not Given Aspirin (Aspirin 81 Mg Ec Tablet) 81 mg PO DAILY [facility] Last Admin: 02/02/25 05:21 Dose: Not Given Atorvastatin Calcium (Atorvastatin 40 Mg Tablet) 40 mg PO BEDTIME [facility] Last Admin: 02/01/25 20:17 Dose: 40 mg Azithromycin (Azithromycin 250 Mg Tablet) 250 mg PO BIDWM [facility]; Protocol Last Admin: 02/01/25 16:59 Dose: 250 mg Cyclobenzaprine HCl (Cyclobenzaprine 10 Mg Tablet) 5 mg PO TID PRN PRN Reason: MUSCLE SPASMS Last Admin: 02/01/25 13:23 Dose: 5 mg Diltiazem HCl (Diltiazem Er (24hr) 120 Mg Capsule) 120 mg PO DAILY [facility] Last Admin: 02/02/25 05:20 Dose: 120 mg Diphenhydramine HCl (Diphenhydramine 25 Mg Capsule) 25 mg PO Q8H PRN PRN Reason: ITCHING Heparin Sodium (Porcine) (Heparin 5,000 Unit/Ml Inj 1 Ml) 0 unit IVP PRN PRN; Protocol PRN Reason: Heparin Weight Based Protocol -Subsequent Bolus Last Admin: 01/31/25 13:39 Dose: 4,600 unit Dextrose (D10w) 125 mls @ 750 mls/hr IV PRN PRN PRN Reason: HYPOGLYCEMIA Last Infusion: 01/31/25 12:49 Dose: Infused Sodium Chloride (Sodium Chloride 0.9%) 1,000 mls @ 0 mls/hr IV .Q0M PRN PRN Reason: hypotension or symptomatic Albumin Human (Albumin) 12.5 gm in 50 mls @ 60 mls/hr IV PRN PRN PRN Reason: Hypotension and/or symptomatic Linezolid (Linezolid 600 Mg Tablet) 600 mg PO BID [facility]; Protocol Last Admin: 02/02/25 05:20 Dose: 600 mg Metoprolol Succinate (Metoprolol Succinate Er (24 Hr) 25 Mg Tablet) 25 mg PO DAILY [facility] Last Admin: 02/02/25 05:20 Dose: 25 mg Metronidazole (Metronidazole 500 Mg Tablet) 500 mg PO Q8H [facility] Last Admin: 02/02/25 05:20 Dose: 500 mg Morphine Sulfate (Morphine 4 Mg/Ml Sdv 1 Ml) 4 mg IVP Q4H PRN PRN Reason: SEVERE PAIN Last Admin: 02/02/25 05:20 Dose: 4 mg Naloxone HCl (Naloxone 0.4 Mg/Ml Sdv) 0.4 mg IVP PRN PRN PRN Reason: RESPIRATORY RATE < 8/MIN Ondansetron HCl (Ondansetron 2 Mg/Ml Sdv 2 Ml) 4 mg IVP Q8H PRN PRN Reason: vomiting, or N/V if npo Last Admin: 02/02/25 05:20 Dose: 4 mg Trazodone HCl (Trazodone 150 Mg Tablet) 150 mg PO BEDTIME [facility] Last Admin: 02/01/25 20:17 Dose: 150 mg Vitals/I&O/Wt Last Vital Signs Temp 98.5 F 02/02/25 07:25 Pulse 115 H 02/02/25 08:02 Resp 18 02/02/25 07:39 BP 127/70 02/02/25 07:25 Pulse Ox 97 02/02/25 07:39 O2 Del Method Nasal Cannula 02/02/25 07:39 O2 Flow Rate 3 02/02/25 07:39 02/01/25 02/02/25 02/02/25 22:59 06:59 14:59 Intake Total 234.183 / 1223.516 112.483 / 1335.999 104.833 / 104.833 Balance 234.183 / -2278.484 112.483 / -2166.001 104.833 / 104.833 Weight last 48 hrs Weight 89.811 kg Weight 89 kg Weight 91.626 kg Weight 90.265 kg Weight 83.915 kg Physical Exam Narrative: Obese man in bed on dialysis. Vital signs noted. Patient using nasal cannula oxygen. HEENT normocephalic atraumatic. Neck is supple Lungs crackles bilaterally improving Heart irregular positive S1-S2. Abdomen is soft positive bowel sounds. Extremities trace edema. Upper extremity AV fistula does not work. Patient has subclavian permacath. Neuro awake alert oriented x 3 Data 02/02/25 05:38 02/02/25 05:38 A&P Assessment and plan 1. ESRD on dialysis: 49-year-old gentleman ESRD patient has dialysis Thursday and Thursday. His potassium improved however still 5.5 and going for operating room will dialyze today for 2 hours and do full dialysis tomorrow. If patient agrees would give Lokelma or Veltassa or Kayexalate on nondialysis days 2. Hemoglobin is 15. 3. Patient on Eliquis for A-fib at home. Agree with holding at this time. 4. Severe hyperphosphatemia will add a phosphorus binder. 6. Right hip fracture as per Dr. Pérez 7. COPD 8. Heart failure with preserved ejection fraction. Patient was seen and examined using her visual primary date of her nurse. Patient consented to telehealth and to dialysis. Plan: See above. PDMP PDMP Reviewed: Not Reviewed Attestations Medical Necessity Statement*: Hip fracture ESRD hyperphosphatemia hyperkalemia Time Spent in Patient Care: Greater than 35 minutes (>than 50% of time spent in counselling and/or direct pt care on unit). Coding Level of Care Code Acute Code for [facility] Fwd Diagnoses ESRD on dialysis N18.6; Z99.2
--- NOTE | 2025-02-02 09:23 | PC.NURSE ---
Pt to dialysis at this time
--- NOTE | 2025-02-02 12:23 | PC.HD ---
Patient's BPs dropped into the 80s during dialysis. Due to short treatment time, insufficient time to administer albumin to support BP. Per hypotension dialysis protocol, dialysate temperature reduced to 35.0C and UF rate reduced to 300 mL/brigitte. UF goal was 1500 mL, 700 net was actually removed.
[2025-02-02] MEDS: heparin drip 25,000 UNIT/500 ML PREMIX 17 UNIT IV (12:56)
--- NOTE | 2025-02-02 16:27 | P.PN_ITS ---
Subjective 2 Subjective: 58 this morning, wanted to drink water, however, n.p.o. tentatively for surgical procedure. Initially declined procedure due to wanting to drink water, discussed purpose of n.p.o. for safety of intubation and anesthesia. However, discussed also with lab abnormality, with acidosis, again hyperkalemia, elevated BUN, creatinine, phosphorus. Yesterday was not agreeable to additional dialysis, however, after discussion agreeable to additional dialysis this morning. Vitals/I&O/Wt Last Vital Signs Temp 98.2 F 02/02/25 12:22 Pulse 103 H 02/02/25 13:33 Resp 18 02/02/25 13:09 BP 119/75 02/02/25 12:22 Pulse Ox 98 02/02/25 13:09 O2 Del Method Nasal Cannula 02/02/25 13:09 O2 Flow Rate 3 02/02/25 13:09 02/02/25 02/02/25 02/02/25 06:59 14:59 22:59 Intake Total 112.483 / 1335.999 604.833 / 604.833 Output Total 1200 / 1200 Balance 112.483 / -2166.001 -595.167 / -595.167 Weight last 48 hrs Weight 88 kg Weight 89.811 kg Weight 89 kg Weight 91.626 kg Physical Exam 2 Narrative: Undergoing dialysis. Const: COMMON NORMALS: patient oriented x3 and alert GENERAL APPEARANCE: c ooperative ORIENTATION/CONSCIOUSNESS: Yes awake OTHER: Wakes up to voice. HENMT: COMMON NORMALS: oropharynx normal Neck/C-Spine: COMMON NORMALS: no JVD Resp: COMMON NORMALS: normal respiratory effort and clear to auscultation bilaterally AUSCULTATION: clear to auscultation bilaterally and wheezes (Minimal wheeze RLL) Cardio: COMMON NORMALS: no JVD, regular rhythm, S1 normal heart sound present, S2 normal heart sound present and No murmurs present (Cardio) RHYTHM: regular rhythm HEART SOUNDS: S1 normal heart sound present and S2 normal heart sound present GI: COMMON NORMALS: Normal to inspection, nondistended, normoactive bowel sounds present, Soft to palpation and non-tender PALPATION: Yes Soft to palpation Extremity: COMMON NORMALS: no joint enlargement and no pedal edema N ARRATIVE EXTREMITY EXAM: Everted RLE. Neuro: COMMON NORMALS: patient oriented x3 and moves all extremities S ENSORIUM/ORIENTATION: Yes alert Skin: COMMON NORMALS: no rashes or lesions noted GENERAL SKIN EXAM: no rashes or lesions noted Data 02/02/25 05:38 02/02/25 05:38 A&P Assessment and plan 1. Closed fracture of right hip with delayed healing, subsequent encounter: Heparin was held this morning, was n.p.o. in anticipation of surgical procedure, however, with additional metabolic abnormality underwent additional dialysis today. However, it appears interval of time since dialysis until surgery inadequate for safely proceeding with anesthesia so surgery having to be delayed until tomorrow. Made NPO after midnight, tentatively scheduled for noon, hold heparin at 6 AM. Reviewed orthopedic note. He tells me plan would be for joint replacement for which he states he is not thrilled about the idea, but he is agreeable due to the specific clinical findings. Understands the risks. Tentative plan for hemiarthroplasty tomorrow. Hold heparin drip 6 hours before hand. Postoperatively timing of anticoagulation resumption as per surgery. IV morphine as needed for severe breakthrough pain. Acetaminophen. Incentive spirometer. 2. Hyperkalemia: Hyperkalemia better, but still elevated this morning 5.5. After initially declining, agreed to and undergoing additional dialysis, repeat chemistries are requested for the morning. Low potassium diet. Plan: Acute pain due to injury : Significant pain associated with right hip fracture and other musculoskeletal complaints. - IV morphine as above and he states Dilaudid has not controlled his pain. Atrial fibrillation on anticoagulation (apixaban) : History of atrial fibrillation on apixaban; last dose taken last night. Anticoagulation management adjusted perioperatively. - Hold apixaban (Eliquis). - Bridge with heparin drip while in the hospital. Stop 6 hours prior to surgery on . Monitor for risk of bleeding, monitor PTTs. - Continue to monitor telemetry for atrial fibrillation and anticoagulation as above. End-stage renal disease on hemodialysis : ESRD on Thursday/Thursday/Thursday schedule; additional dialysis today due to persistent metabolic abnormality. Discussed with weigher and crusher. Chronic obstructive pulmonary disease (not in exacerbation) : COPD without current exacerbation - breathing treatments scheduled as needed for COPD. Hypertension : Chronic hypertension; ongoing home regimen referenced. - Continue diltiazem for blood pressure control. - Continue metoprolol for blood pressure control. Congestive heart failure (not in exacerbation) : CHF without current signs of exacerbation per plan note. - Continue furosemide (Lasix). Right upper extremity edema with reported prior venous thrombosis : Persistent right arm swelling with patient-reported prior venous thrombosis; on anticoagulation. - Elevate right upper extremity when possible. Recent cellulitis and cat scratch disease : Recent hospitalization for right arm cellulitis and cat scratch disease; improving without fevers at home. - Continue antibiotics as recently prescribed to complete the course. Requesting to confirm home medications. PDMP PDMP Reviewed: Not Reviewed Attestations 2 Medical Necessity Statement*: Continue admission for assessment and management of right hip fracture pending surgical repair and gentleman with multiple comorbidities including ESRD on dialysis, right upper extremity venous thrombosis and A-fib, CHF, and other comorbidities. and High MDM includes amount and/or complexity of data reviewed/ordered [ previous or external records, resulted lab(s)/test(s), ordered lab(s)/test(s) and other healthcare professional discussion] and described risk of complication, morbidity or mortality of management as documented Diagnoses Closed fracture of right hip with delayed healing, subsequent encounter S72.001G Encounter type: subsequent encounter Fracture healing: with delayed healing Hyperkalemia E87.5
[2025-02-02 19:08] LABS: Partial Thromboplastin Time 45.9 SECONDS (23.9-36.7)
[2025-02-02] MEDS: heparin 5,000 unit/mL INJ 1 mL IVP (20:15)
[2025-02-02] MEDS: heparin drip 25,000 UNIT/500 ML PREMIX 19 UNIT IV (23:27)
[2025-02-03] VITALS (28 sets, daily range): BP systolic 67–195; BP diastolic 42–157; PULSE 78–126; RESP 9–33; TEMP 36.5–37.5; O2SAT 62–100
[2025-02-03] MEDS: metoprolol succinate ER (24 HR) 25 mg Tablet PO ×2 (00:10→05:22)
[2025-02-03 02:54] LABS: Hematocrit 46.8 % (37-53); Hemoglobin 14.90 g/dL (11.27-16.99); Mean Corpuscular HGB Conc 31.8 g/dL (30-55); Mean Corpuscular Hemoglobin 32.7 pg (27-33); Mean Corpuscular Volume 102.6 fl (82-101); Nucleated Red Blood Cells % 0 %; Platelet Count 141 10^3/cmm (157-399); Red Blood Count 4.56 10^6/uL (3.85-5.65); White Blood Count 8.89 10^3/uL (3.29-11.43)
[2025-02-03 03:05] LABS: Partial Thromboplastin Time 66.2 SECONDS (23.9-36.7)
[2025-02-03 03:13] LABS: Magnesium 1.9 mg/dL (1.7-2.3)
[2025-02-03 03:26] LABS: Alanine Aminotransferase 10 U/L (0-41); Albumin Level 3.7 g/dL (3.5-5.2); Alkaline Phosphatase 207 U/L (40-130); Anion Gap 21.1 (5-19); Aspartate Amino Transferase 11 U/L (0-40); Blood Urea Nitrogen 39 mg/dL (6-20); Calcium 8.6 mg/dL (8.5-10.5); Carbon Dioxide 24 mmol/L (22-29); Chloride 95 mmol/L (98-107); Globulin 2.6 g/dL (1.3-4.6); Glucose 112 mg/dL (65-115); Osmolality Calculated 290 mOsm/kg (285-295); Potassium 5.1 mmol/L (3.5-5.1); Sodium 135 mmol/L (136-145); Total Protein 6.3 g/dL (6.6-8.7)
[2025-02-03] MEDS: morphine 4 mg/mL SDV 1 mL IVP ×4 (05:20→23:58)
[2025-02-03] MEDS: ondansetron 2 mg/ML SDV 2 mL 4 MG IVP (05:21)
[2025-02-03] MEDS: dilTIAZem ER (24HR) 120 mg Capsule PO (05:22)
--- NOTE | 2025-02-03 07:21 | P.PN_ITS ---
Subjective 2 Subjective: The patient was seen and examined. Patient complains of significant hip and back pain. He is upset about the cancellation of surgery yesterday. He had some emesis. He has chronic shortness of breath. He has no chest pain at this time. Medications: Reviewed: Yes Medication Review Details: Current Medications Acetaminophen (Acetaminophen 325 Mg Tablet) 650 mg PO Q6H PRN PRN Reason: Mild/Mod Pain Or Temp >/= 101 Albuterol/Ipratropium (Ipratropium-Albuterol 3 Ml Neb) 3 ml INHALATION Q6H PRN PRN Reason: SHORTNESS OF BREATH Albuterol/Ipratropium (Ipratropium-Albuterol 3 Ml Neb) 3 ml INHALATION Q6H.RESP [facility] Last Admin: 02/03/25 01:58 Dose: Not Given Aspirin (Aspirin 81 Mg Ec Tablet) 81 mg PO DAILY [facility] Last Admin: 02/03/25 06:23 Dose: Not Given Atorvastatin Calcium (Atorvastatin 40 Mg Tablet) 40 mg PO BEDTIME [facility] Last Admin: 02/02/25 20:58 Dose: 40 mg Azithromycin (Azithromycin 250 Mg Tablet) 250 mg PO BIDWM [facility]; Protocol Last Admin: 02/02/25 16:00 Dose: 250 mg Cyclobenzaprine HCl (Cyclobenzaprine 10 Mg Tablet) 5 mg PO TID PRN PRN Reason: MUSCLE SPASMS Last Admin: 02/02/25 16:00 Dose: 5 mg Diltiazem HCl (Diltiazem Er (24hr) 120 Mg Capsule) 120 mg PO DAILY [facility] Last Admin: 02/03/25 05:22 Dose: 120 mg Diphenhydramine HCl (Diphenhydramine 25 Mg Capsule) 25 mg PO Q8H PRN PRN Reason: ITCHING Heparin Sodium (Porcine) (Heparin 5,000 Unit/Ml Inj 1 Ml) 0 unit IVP PRN PRN; Protocol PRN Reason: Heparin Weight Based Protocol -Subsequent Bolus Last Admin: 02/02/25 20:15 Dose: 1,700 unit Dextrose (D10w) 125 mls @ 750 mls/hr IV PRN PRN PRN Reason: HYPOGLYCEMIA Last Infusion: 01/31/25 12:49 Dose: Infused Sodium Chloride (Sodium Chloride 0.9%) 1,000 mls @ 0 mls/hr IV .Q0M PRN PRN Reason: hypotension or symptomatic Albumin Human (Albumin) 12.5 gm in 50 mls @ 60 mls/hr IV PRN PRN PRN Reason: Hypotension and/or symptomatic Heparin Sodium/Sodium Chloride (Heparin Drip) 25,000 unit in 500 mls @ 0 mls/hr IV CONT [facility]; Protocol Last Titration: 02/03/25 06:15 Dose: 0 unit/kg/hr, 0 mls/hr Clindamycin HCl/Dextrose (Cleocin) 900 mg in 50 mls @ 100 mls/hr IV ONCE ONE; Protocol Stop: 02/03/25 07:46 Linezolid (Linezolid 600 Mg Tablet) 600 mg PO BID [facility]; Protocol Last Admin: 02/03/25 05:21 Dose: 600 mg Metoprolol Succinate (Metoprolol Succinate Er (24 Hr) 25 Mg Tablet) 25 mg PO DAILY [facility] Last Admin: 02/03/25 05:22 Dose: 25 mg Metronidazole (Metronidazole 500 Mg Tablet) 500 mg PO Q8H [facility] Last Admin: 02/03/25 05:28 Dose: 500 mg Morphine Sulfate (Morphine 4 Mg/Ml Sdv 1 Ml) 4 mg IVP Q4H PRN PRN Reason: SEVERE PAIN Last Admin: 02/03/25 05:20 Dose: 4 mg Naloxone HCl (Naloxone 0.4 Mg/Ml Sdv) 0.4 mg IVP PRN PRN PRN Reason: RESPIRATORY RATE < 8/MIN Ondansetron HCl (Ondansetron 2 Mg/Ml Sdv 2 Ml) 4 mg IVP Q8H PRN PRN Reason: vomiting, or N/V if npo Last Admin: 02/03/25 05:21 Dose: 4 mg Sevelamer Carbonate (Sevelamer 800 Mg Tablet) 1,600 mg PO TID [facility] Last Admin: 02/03/25 05:21 Dose: 1,600 mg Trazodone HCl (Trazodone 150 Mg Tablet) 150 mg PO BEDTIME [facility] Last Admin: 02/02/25 20:58 Dose: 150 mg Vitals/I&O/Wt Last Vital Signs Temp 98.1 F 02/03/25 05:56 Pulse 109 H 02/03/25 05:56 Resp 16 02/03/25 05:56 BP 102/68 02/03/25 05:56 Pulse Ox 93 02/03/25 05:56 O2 Del Method Nasal Cannula 02/02/25 19:09 O2 Flow Rate 3 02/02/25 20:00 02/02/25 02/03/25 02/03/25 22:59 06:59 14:59 Intake Total 364.383 / 969.216 670.0 / 1639.216 Balance 364.383 / -230.784 670.0 / 439.216 Weight last 48 hrs Weight 87.997 kg Weight 88 kg Weight 89.811 kg Weight 89 kg Physical Exam 2 Narrative: Obese man in bed using nasal cannula oxygen vital signs noted. HEENT normocephalic atraumatic. Neck is supple Lungs have dull bases improved air movement bilaterally Heart irregular positive S1-S2. Abdomen is soft positive bowel sounds. Extremities trace edema. Upper extremity AV fistula does not work. Patient has subclavian permacath. Neuro awake alert oriented x 3 Data 02/03/25 02:39 02/03/25 02:39 A&P Assessment and plan 1. ESRD on dialysis: 49-year-old gentleman ESRD patient has dialysis Thursday and Thursday. His potassium improved to 5.1 status post hemodialysis the last 2 days. From a renal perspective he may proceed with surgery and if he develops hyperkalemia we will be happy to dialyze him postoperatively. If the patient agrees would give Lokelma or Veltassa or Kayexalate on nondialysis days 2. Hemoglobin is 15. 3. Patient on Eliquis for A-fib at home. Agree with holding at this time. 4. Severe hyperphosphatemia improving with a phosphorus binder and hemodialysis 6. Right hip fracture as per Dr. Pérez 7. COPD 8. Heart failure with preserved ejection fraction. 9. Atrial fibrillation on Eliquis 10. Blood pressure improved 11. Recent cat scratch disease and cellulitis continue antibiotics as per medical physician. Patient was seen and examined using her visual primary date of her nurse. Patient consented to telehealth and to dialysis. Plan: See above. For hip surgery today PDMP PDMP Reviewed: Not Reviewed Attestations 2 Medical Necessity Statement*: Hip fracture ESRD hyperkalemia improving Time Spent in Patient Care: 16 - 35 minutes (>than 50% of time sp ent in counselling and/or direct pt care on unit) . Coding Level of Care Code Acute Code for Chg Fwd Diagnoses ESRD on dialysis N18.6; Z99.2
[2025-02-03] MEDS: metoprolol tartrate 1 mg/1 mL SDV 5 mL 2.5 MG IVP ×2 (08:22→10:32)
[2025-02-03] MEDS: amiodarone 150 MG/100 ML PREMIX 400 MG IV (08:23)
--- NOTE | 2025-02-03 09:54 | PM.PN ---
Subjective Subjective: He has been having intermittent pain in his right hip. He states he is very thirsty and wanting to drink water or eat ice. Revisited again regarding safety and need for n.p.o. prior to anticipated surgery. He has been using moist swabs to wet his lips and mouth. Discussed with him heart rate has been more elevated this morning with A-fib with RVR. Overnight received extra dose of metoprolol by mouth. Discussed with him this morning administration of 2.5 mg IV push of metoprolol as well as amiodarone bolus and starting Amio drip due to which will need to transfer to CSU. Vitals/I&O/Wt Last Vital Signs Temp 99.5 F 02/03/25 07:39 Pulse 83 02/03/25 08:41 Resp 22 H 02/03/25 08:41 BP 109/73 02/03/25 07:39 Pulse Ox 92 02/03/25 08:41 O2 Del Method Nasal Cannula 02/03/25 08:41 O2 Flow Rate 3 02/03/25 08:41 02/02/25 02/03/25 02/03/25 22:59 06:59 14:59 Intake Total 364.383 / 969.216 670.0 / 1639.216 100 / 100 Balance 364.383 / -230.784 670.0 / 439.216 100 / 100 Weight last 48 hrs Weight 87.997 kg Weight 88 kg Weight 89.811 kg Weight 89 kg Physical Exam Const: COMMON NORMALS: patient oriented x3 and alert GENERAL APPEARANCE: cooperative ORIENTATION/CONSCIOUSNESS: Yes awake OTHER: Wakes up to voice. HENMT: COMMON NORMALS: oropharynx normal Neck/C-Spine: COMMON NORMALS: no JVD Resp: COMMON NORMALS: normal respiratory effort and clear to auscultation bilaterally AUSCULTATION: clear to auscultation bilaterally and wheezes (Minimal wheeze RLL) Cardio: COMMON NORMALS: no JVD, regular rhythm, S1 normal heart sound present, S2 normal heart sound present and No murmurs present (Cardio) RHYTHM: regular rhythm HEART SOUNDS: S1 normal heart sound present and S2 normal heart sound present GI: COMMON NORMALS: Normal to inspection, nondistended, normoactive bowel sounds present, Soft to palpation and non-tender PALPATION: Yes Soft to palpation Extremity: COMMON NORMALS: no joint enlargement and no pedal edema NARRATIVE EXTREMITY EXAM: Everted RLE. Neuro: COMMON NORMALS: patient oriented x3 and moves all extremities SENSORIUM/ORIENTATION: Yes alert Skin: COMMON NORMALS: no rashes or lesions noted GENERAL SKIN EXAM: no rashes or lesions noted Data 02/03/25 02:39 02/03/25 02:39 A&P Assessment and plan 1. Atrial fibrillation with rapid ventricular response: Heart rates up into 140s overnight, yesterday received his usual dose of metoprolol and diltiazem. Was given extra dose of metoprolol by mouth. This morning heart rate slightly better but still elevated 120s-130s. Given a push of metoprolol IV 2.5 mg. Given a loading dose of amiodarone 150 mg. Heart rates with improvement down to low 100s, although still in A-fib with RVR. Discussed with anesthesia. Additional dose of metoprolol 2.5 mg IV push is requested, and amiodarone drip is requested, however, requiring transfer to cardiac stepdown unit to run Amio drip. Continue to monitor on telemetry. Potassium has improved. Magnesium reviewed and is okay, 1.9. He has been getting restless due to not being unable to have water needing to be n.p.o., pain, having to be in the hospital, and other factors possibly contributing to the tachycardia. Discussed with nursing, case preparer and liner. Continue hospitalization on CSU post surgery. Discussed with storage facility housekeeper. 2. Closed fracture of right hip with delayed healing, subsequent encounter: Heparin was held this morning, was n.p.o. in anticipation of surgical procedure for joint replacement. A-fib with RVR as above. Heparin on hold. Understands the risks. Tentative plan for hemiarthroplasty tomorrow. Hold heparin drip 6 hours before hand. Postoperatively timing of anticoagulation resumption as per surgery. IV morphine as needed for severe breakthrough pain. Acetaminophen. Incentive spirometer. 3. Hyperkalemia: Improved with dialysis. 5.1. Continue HD as per nephrology. Low potassium diet. Repeat chemistry in the morning. Plan: Acute pain due to injury : Significant pain associated with right hip fracture and other musculoskeletal complaints. - IV morphine as above and he states Dilaudid has not controlled his pain. Atrial fibrillation on anticoagulation (apixaban) : History of atrial fibrillation on apixaban; last dose taken last night. Anticoagulation management adjusted perioperatively. A-fib with RVR as above. - Hold apixaban (Eliquis). - Bridge with heparin drip while in the hospital. Stop 6 hours prior to surgery on . Monitor for risk of bleeding, monitor PTTs. - Continue to monitor telemetry for atrial fibrillation and anticoagulation as above. End-stage renal disease on hemodialysis : ESRD on Thursday/Thursday/Thursday schedule; additional dialysis today due to persistent metabolic abnormality. Repeat chemistry in the morning. Chronic obstructive pulmonary disease (not in exacerbation) : COPD without current exacerbation - breathing treatments scheduled as needed for COPD. Hypertension : Chronic hypertension; ongoing home regimen referenced. - Continue diltiazem for blood pressure control. - Continue metoprolol for blood pressure control. Congestive heart failure (not in exacerbation) : CHF without current signs of exacerbation per plan note. - Continue furosemide (Lasix). Right upper extremity edema with reported prior venous thrombosis : Persistent right arm swelling with patient-reported prior venous thrombosis; on anticoagulation. - Elevate right upper extremity when possible. Recent cellulitis and cat scratch disease : Recent hospitalization for right arm cellulitis and cat scratch disease; improving without fevers at home. - Continue antibiotics as recently prescribed to complete the course. PDMP PDMP Reviewed: Last Reviewed 02/03/25 10:25 by Mukesh Salazar MD Attestations Medical Necessity Statement*: Continued admission required for right hip fracture surgical repair with hip replacement, optimization of atrial fibrillation with RVR, and abdomen with underlying ESRD, other medical problems. and High MDM includes amount and/or complexity of data reviewed/ordered [ resulted lab(s)/test(s), ordered lab(s)/test(s) and other healthcare professional discussion] and described risk of complication, morbidity or mortality of management as documented Diagnoses Atrial fibrillation with rapid ventricular response I48.91 Closed fracture of right hip with delayed healing, subsequent encounter S72.001G Encounter type: subsequent encounter Fracture healing: with delayed healing Hyperkalemia E87.5
--- NOTE | 2025-02-03 10:45 | PC.SOCIAL ---
IMM Update pg 2 of IMM Updated and reviewed w/ patient. Copy provided and copy dated, initialed and placed in chart.
--- NOTE | 2025-02-03 11:44 | PC.NURSE ---
PATIENT DIALYSIS CATH DRESSING COMING OFF. THIS RN TOOK DRESSING REST OF THE WAY OFF AND CLEANED SITE. REDRESSED WITH TEGADERM AND TWO 4X4S.
--- NOTE | 2025-02-03 12:19 | W.PM.OPSUD ---
Surgery/Procedure H&P Update DATE OF PROCEDURE: February 03, 2025 DATE H&P PERFORMED: 01/31/25 H&P UPDATE INFORMATION: I have reviewed H&P completed within last 30 days, I have examined patient prior to procedure and No changes to prior documentation PREOP DIAGNOSIS: Hip fracture PLANNED PROCEDURE: Operation Date: 02/03/25 12:05 Proposed Procedures p Right endoprosthetic replacement of the hip(Right) - Imer Pérez MD
--- NOTE | 2025-02-03 13:42 | XRR_ITS ---
PROCEDURE INFORMATION: Exam: XR Right Hip Exam date and time: 02/03/2025 6:31 PM Age: 49 years old Clinical indication: Device placement; Prior surgery; Surgery date: Post-operative (0-2 days); Surgery type: RT hip replacement; Additional info: Prosthetic replacement right hip TECHNIQUE: Imaging protocol: Radiologic exam of the right hip. Views: 1 view hip with pelvis when performed. COMPARISON: CR XR hip RT 2-3V wo/w pel* [id number] 01/31/2025 10:25 AM FINDINGS: Bones/joints: Postsurgical changes status post right hip arthroplasty. Soft tissues: Unremarkable. Vasculature: Atherosclerotic disease. XR/XR hip RT 2-3V wo/w pel* [id number] IMPRESSION: Postsurgical changes status post right hip arthroplasty.
--- NOTE | 2025-02-03 13:53 | P.OP_ITS ---
Operative Report Date of procedure: February 03, 2025 Surgeon: Imer Pérez MD Procedure: Preoperative diagnosis: Right femoral neck fracture Postoperative diagnosis: Same Procedure: Endoprosthetic replacement right hip fracture Surgeon: Imer Pérez MD Software Implementation Specialist: HALEY Gamble's assistance was necessary for positioning the patient, assistance during procedure, wound closure, dressing placement Anesthesia: General EBL: 50 cc Indications: Leopoldo is a 49-year-old white male who fell earlier this week injuring his right hip. Patient was seen in the emergency room and x-rays there demonstrated a femoral neck fracture. However the patient has multiple medical problems and initially upon and being admitted with somewhat reluctant to have any type of medical treatment including dialysis or lab draws. Over the course the week he has agreed to proceed with medical care at this time as well as dialysis. Orthopedic consultation have been obtained at the time he is admitted due to right hip fracture. After reviewing x-rays and discussing the findings with the patient it was recommended to have a endoprosthetic replacement of his right hip. All risk benefits treatment alternatives were discussed with him and he is agreeable to this. Once the patient was stable enough medically he was cleared for surgery which was to take place today. Procedure: After obtaining written consent patient was taken to the operating room on his hospital bed and general anesthetic was administered. Once good anesthesia was achieved patient was placed on the operative bed into a decubitus position with right hip up. Patient was held in position on a pegboard and padded appropriately. Right hip and leg were prepped and draped usual fashion. After surgical timeout hip was flexed to 90 degrees and a minimally invasive posterior lateral incision made over the tip of the greater trochanter. Sharp dissection was taken on down to subcutaneous tissues electrocautery used for hemostasis. Leg was slightly internally rotated and dissection to the posterior aspect of the greater trochanter was done with electrocautery all the way down to femoral neck. Piriformis tendon was released from its insertion and capsule was opened up in a T-type fashion. Leg was internally rotated 90 degrees exposing the fractured femoral neck. Proximal femur was templated and a sagittal saw was used to make the femoral cut and remove bone fragments with a rongeur. Femoral head was then removed from the acetabulum and sized to a size 52 femoral head. Trial femoral head was placed in the acetabulum and found to have good fit and fill. Attention was turned towards the proximal femur. Box cut osteotome was used to make an entry point. Broaching was then done from a [address] the way up to a size 6 broach. At size 6 it was found to have good fit and fill and good stability. Therefore a permanent size 6 femoral implant was selected. Femoral canal was washed copious amounts of sterile irrigation remove all bone fragments and nonviable tissue. Size 6 femoral stem was then placed and impacted with appropriate anteversion. Trial head and neck was then used to size for the neck. Size 52 trial head with a standard neck was placed on the femoral component hip was reduced and put the range of motion found to be stable. It had good range of motion. And had appropriate leg length. Therefore trial components were removed and a permanent size 52 head with a standard neck was opened and placed on the Seymour taper of the femoral component and impacted. Hip was reduced again posterior range of motion found to be stable. Leg was put up on the leg bump and slightly internally rotated. Capsule of the hip was repaired with #1 Vicryl [id number] sutures. Piriformis or 6 back to the greater trochanter with #5 Ethibond [id number] suture. Deep retractors removed. Deep fascia was repaired with 0 Vicryl [id number] sutures. Subcutaneous tissue reapproximated 2-0 Vicryl interrup ade sutures. Skin was closed skin deric. Wounds are clean and dry dressed with Xeroform gauze sterile gauze dressing ABD and adhesive tape. Patient placed in abduction pillow and transferred to the ICU immediately postop.
[2025-02-03] MEDS: norepinephrine 4 MG/250 ML BAG 7.5 MG IV (14:45)
--- NOTE | 2025-02-03 14:48 | ANE.PACU2 ---
Inpatient post-anesthesia follow up: Airway intact: Yes Vital signs: Temperature 98.5 F Pulse Rate 102 Respiratory Rate 22 Blood Pressure 105/67 Pulse Oximetry 94 Oxygen Delivery Me thod Nasal Cannula Oxygen Flow Rate 3 Fraction of Inspir ed Oxygen Hydration adequate: Yes Nausea and vomiting: No Pain level: 3 Mental status: Baseline Additional Comments: Initially patient was slow to wake up. Taken to the ICU with ETT. ABG drawn which showed pCO2 of 60 with adequate pO2. [id number] 4 out of 4. Decision was made to extubate. Patient was sitting up and talking prior to leaving ICU
[2025-02-03 15:22] LABS: ABG PCO2 60.2 mmHg (35-45); ABG PH Result 7.24 (7.35-7.45); Alveolar-Arterial Oxygen Gradi 29.3 mmHg (5-10); Arterial Blood Gas Hematocrit 45.0 % (42-52); Blood Gas Allen Test Pos; Blood Gas Operator Identificat MONRO; Blood Gas Sample Site Radial, right; Blood Gas Sample Type Arterial; Blood Gas Tidal Volume 0.40; Carboxyhemoglobin 1.2 %THgb (0.4-20.1); Glucose Level-ABG 96.0 mg/dL (70-115); HCO3 ABG 26.0 mmol/L (22-26); Ionized Calcium Level - ABG 1.1 mmol/L (1.1-1.4); Methemoglobin 1.2 % (0.4-1.5); Oxygen Saturation ABG > 99.1; PEEP 5.0 cmH20; PO2 ABG 400.0 mmHg (80.0-100.0); PO2 FiO2 Ratio Arterial Blood 400; Potassium Level - ABG 5.9 mmol/L (3.5-5.0); Sodium Level - ABG 134.0 mmol/L (131-143)
[2025-02-03] MEDS: sennosides-docusate Tablet 2 TAB PO (16:47)
[2025-02-03 18:48] LABS: ABG PCO2 50.8 mmHg (35-45); ABG PH Result 7.30 (7.35-7.45); Alveolar-Arterial Oxygen Gradi 16.6 mmHg (5-10); Arterial Blood Gas Hematocrit 44.6 % (42-52); Blood Gas Allen Test Pos; Blood Gas LPM 5.0 %; Blood Gas Operator Identificat MONRO; Blood Gas Sample Site Radial, left; Blood Gas Sample Type Arterial; Carboxyhemoglobin 1.5 %THgb (0.4-20.1); Glucose Level-ABG 101.0 mg/dL (70-115); HCO3 ABG 24.7 mmol/L (22-26); Ionized Calcium Level - ABG 1.1 mmol/L (1.1-1.4); Methemoglobin 0.9 % (0.4-1.5); Oxygen Saturation ABG 96.4; PO2 ABG 92.0 mmHg (80.0-100.0); PO2 FiO2 Ratio Arterial Blood 230; Potassium Level - ABG 6.5 mmol/L (3.5-5.0); Sodium Level - ABG 132.0 mmol/L (131-143)
--- NOTE | 2025-02-03 21:56 | ECG_ITS ---
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 Measurements Intervals [place] Rate: 96 P: 0 CO: 0 QRS: -14 QRSD: 125 T: 69 QT: 388 QTc: 490 Interpretive Statements ATRIAL FIBRILLATION WITH ABERRANT CONDUCTION OR VENTRICULAR PREMATURE COMPLEXES MODERATE INTRAVENTRICULAR CONDUCTION DELAY [105+ ms QRS DURATION, 80+ ms Q/S IN V1/V2, NO Q AND 60+ ms R IN I/aVL/V5/V6] Compared to ECG 01/31/2025 15:59:10 Ventricular premature complex(es) now present Aberrant conduction of supraventricular beat(s) now present Indeterminate axis no longer present Electronically Signed On 02-04-2025 08:30:20 GR[employer]DLE [employer]OOK by Shanna Sosa M.D. [email or web address]
[2025-02-03 22:31] LABS: ABG PCO2 46.1 mmHg (35-45); ABG PH Result 7.36 (7.35-7.45); Alveolar-Arterial Oxygen Gradi 15.3 mmHg (5-10); Arterial Blood Gas Hematocrit 43.9 % (42-52); Blood Gas Allen Test Pos; Blood Gas Operator Identificat JDB; Blood Gas Sample Site Radial, left; Blood Gas Sample Type Arterial; Carboxyhemoglobin 1.4 %THgb (0.4-20.1); Glucose Level-ABG 105.0 mg/dL (70-115); HCO3 ABG 25.9 mmol/L (22-26); Ionized Calcium Level - ABG 1.2 mmol/L (1.1-1.4); Methemoglobin 1.1 % (0.4-1.5); Oxygen Saturation ABG 98.6; PO2 ABG 107.0 mmHg (80.0-100.0); PO2 FiO2 Ratio Arterial Blood 267; Potassium Level - ABG 4.6 mmol/L (3.5-5.0); Sodium Level - ABG 135.0 mmol/L (131-143)
[2025-02-03] MEDS: HYDROmorphone 0.5 MG/0.5 ML INJ 0.2 MG IVP (22:36)
[2025-02-04] VITALS (64 sets, daily range): BP systolic 76–115; BP diastolic 49–89; PULSE 85–138; RESP 5–32; TEMP 36.2–36.8; O2SAT 82–100
[2025-02-04] MEDS: HYDROcodone-acetaminophen 5-325 mg Tablet 1 TAB PO ×3 (00:28→22:56)
[2025-02-04 01:16] LABS: Anion Gap 17.1 (5-19); Blood Urea Nitrogen 20 mg/dL (6-20); Calcium 9.1 mg/dL (8.5-10.5); Carbon Dioxide 27 mmol/L (22-29); Chloride 95 mmol/L (98-107); Creatinine Clr Calc Pharmacy 19.4119; Glucose 127 mg/dL (65-115); Osmolality Calculated 284 mOsm/kg (285-295); Potassium 4.1 mmol/L (3.5-5.1); Sodium 135 mmol/L (136-145)
--- NOTE | 2025-02-04 01:47 | P.EN_ITS ---
Event Note Event Note: Patient had hyperkalemia of 6.5 on blood gas and later was scheduled for dialysis Case of end-stage renal disease and dialysis dependent Group Fitness Instructor on board Event Notes Attestations Time Spent in Patient Care: I reviewed the patient labs and clinically reassessed the patient during dialysis The patient had hyperkalemia of 6.5 on blood gas that could be hemolysis however BMP was not at that time correlated with the blood gas. Since the patient was already started on hemodialysis around 9-9: 30 PM there was no point of giving insulin with dextrose or calcium gluconate since the patient was having dialysis and was not likely to work. Hence he was kept on monitor and vitals were taken rigorously with clinical assessment of patient neuro vitals as well and shortness of breath that improved altogether during dialysis and remained stable afterwards. Stat BMP postdialysis did not show any hyperkalemia and potassium was 4.1 Continue to monitor patient vitals neurochecks every shift
[2025-02-04] MEDS: morphine 4 mg/mL SDV 1 mL IVP (03:25)
[2025-02-04] MEDS: HYDROmorphone 0.5 MG/0.5 ML INJ 0.2 MG IVP (04:09)
[2025-02-04 04:23] LABS: Hematocrit 40.0 % (37-53); Hemoglobin 12.40 g/dL (11.27-16.99); Mean Corpuscular HGB Conc 31.0 g/dL (30-55); Mean Corpuscular Hemoglobin 32.3 pg (27-33); Mean Corpuscular Volume 104.2 fl (82-101); Nucleated Red Blood Cells % 0.4 %; Platelet Count 135 10^3/cmm (157-399); Red Blood Count 3.84 10^6/uL (3.85-5.65); White Blood Count 10.43 10^3/uL (3.29-11.43)
[2025-02-04 04:37] LABS: Alanine Aminotransferase 8 U/L (0-41); Albumin Level 2.9 g/dL (3.5-5.2); Alkaline Phosphatase 158 U/L (40-130); Blood Urea Nitrogen 26 mg/dL (6-20); Calcium 8.8 mg/dL (8.5-10.5); Carbon Dioxide 23 mmol/L (22-29); Chloride 95 mmol/L (98-107); Globulin 3.2 g/dL (1.3-4.6); Glucose 142 mg/dL (65-115); Magnesium 1.9 mg/dL (1.7-2.3); Osmolality Calculated 283 mOsm/kg (285-295); Sodium 133 mmol/L (136-145); Total Protein 6.1 g/dL (6.6-8.7)
[2025-02-04 04:46] LABS: Anion Gap 19.7 (5-19); Aspartate Amino Transferase 12 U/L (0-40); Potassium 4.7 mmol/L (3.5-5.1)
[2025-02-04] MEDS: sennosides-docusate Tablet 2 TAB PO ×2 (04:59→17:12)
[2025-02-04] MEDS: multivitamin therapeutic Tablet 1 TAB PO (05:00)
--- NOTE | 2025-02-04 09:34 | PC.NURSE ---
pt remains drowsy from prior pain medication ,when awaken ask for food then returns back to sleep po intake held until more aware right arm swollen and warm to touch , right hip with dressing intact and ice to area weaning levophed as tolerated
--- NOTE | 2025-02-04 09:59 | P.PN_ITS ---
Subjective 2 Subjective: Patient was seen and examined. Patient required pressors for dialysis yesterday he is postop day #1 status post endoprosthetic replacement right hip fracture. He has no shortness of breath or chest pain at this time. He is eating Medications: Reviewed: Yes Medication Review Details: Current Medications Acetaminophen (Acetaminophen 325 Mg Tablet) 650 mg PO Q6H PRN PRN Reason: Mild/Mod Pain Or Temp >/= 101 Hydrocodone Bitart/Acetaminophen (Hydrocodone-Acetaminophen 5-325 Mg Tablet) 1 tab PO Q4H PRN PRN Reason: MODERATE PAIN Last Admin: 02/04/25 00:28 Dose: 1 tab Albuterol Sulfate (Albuterol 2.5 Mg/3 Ml Neb) 2.5 mg INHALATION ONCE PRN PRN Reason: WHEEZING Albuterol/Ipratropium (Ipratropium-Albuterol 3 Ml Neb) 3 ml INHALATION Q6H PRN PRN Reason: SHORTNESS OF BREATH Albuterol/Ipratropium (Ipratropium-Albuterol 3 Ml Neb) 3 ml INHALATION Q6H.RESP [facility] Last Admin: 02/04/25 07:56 Dose: 3 ml Aspirin (Aspirin 81 Mg Ec Tablet) 81 mg PO DAILY [facility] Last Admin: 02/04/25 05:00 Dose: 81 mg Atorvastatin Calcium (Atorvastatin 40 Mg Tablet) 40 mg PO BEDTIME [facility] Last Admin: 02/03/25 20:06 Dose: 40 mg Azithromycin (Azithromycin 250 Mg Tablet) 250 mg PO BIDWM [facility]; Protocol Last Admin: 02/04/25 09:53 Dose: 250 mg Calcium Carbonate (Calcium Carbonate 500 Mg Chew Tablet) 1,000 mg PO BID [facility] Last Admin: 02/04/25 04:59 Dose: 1,000 mg Chlorhexidine Gluconate (Chlorhexidine Gluconate 0.12% Btl 473 Ml) 30 ml MUCOUS MEM QID [facility] Last Admin: 02/04/25 05:00 Dose: Not Given Cyclobenzaprine HCl (Cyclobenzaprine 10 Mg Tablet) 5 mg PO TID PRN PRN Reason: MUSCLE SPASMS Last Admin: 02/02/25 16:00 Dose: 5 mg Diltiazem HCl (Diltiazem Er (24hr) 120 Mg Capsule) 120 mg PO DAILY [facility] Last Admin: 02/04/25 05:01 Dose: Not Given Diphenhydramine HCl (Diphenhydramine 25 Mg Capsule) 25 mg PO Q8H PRN PRN Reason: ITCHING Heparin Sodium (Porcine) (Heparin 5,000 Unit/Ml Inj 1 Ml) 0 unit IVP PRN PRN; Protocol PRN Reason: Heparin Weight Based Protocol -Subsequent Bolus Last Admin: 02/02/25 20:15 Dose: 1,700 unit Hydromorphone HCl (Hydromorphone 0.5 Mg/0.5 Ml Inj) 0.2 mg IVP Q6H PRN PRN Reason: PAIN Last Admin: 02/04/25 04:09 Dose: 0.2 mg Dextrose (D10w) 125 mls @ 750 mls/hr IV PRN PRN PRN Reason: HYPOGLYCEMIA Last Infusion: 01/31/25 12:49 Dose: Infused Sodium Chloride (Sodium Chloride 0.9%) 1,000 mls @ 0 mls/hr IV .Q0M PRN PRN Reason: hypotension or symptomatic Albumin Human (Albumin) 12.5 gm in 50 mls @ 60 mls/hr IV PRN PRN PRN Reason: Hypotension and/or symptomatic Heparin Sodium/Sodium Chloride (Heparin Drip) 25,000 unit in 500 mls @ 0 mls/hr IV CONT [facility]; Protocol Last Titration: 02/03/25 06:15 Dose: 0 unit/kg/hr, 0 mls/hr AMIODARONE HCL/D5W (Amiodarone 900 Mg/500 Ml-D5w) 900 mg in 500 mls @ 0 mls/hr IV .Q0M [facility]; Protocol Clindamycin HCl/Dextrose (Cleocin) 900 mg in 50 mls @ 100 mls/hr IV Q8H [facility]; Protocol Stop: 02/04/25 12:29 Last Infusion: 02/04/25 03:47 Dose: Infused Norepinephrine Bitartrate (Levophed) 4 mg in 250 mls @ 0 mls/hr IV .Q0M [facility]; Protocol Last Titration: 02/04/25 03:35 Dose: 4 mcg/min, 15 mls/hr Ketorolac Tromethamine (Ketorolac 30 Mg/Ml Inj) 15 mg IVP Q6H [facility] Stop: 02/05/25 07:46 Last Admin: 02/04/25 09:59 Dose: Not Given Linezolid (Linezolid 600 Mg Tablet) 600 mg PO BID [facility]; Protocol Last Admin: 02/04/25 04:59 Dose: 600 mg Metoprolol Succinate (Metoprolol Succinate Er (24 Hr) 25 Mg Tablet) 25 mg PO DAILY [facility] Last Admin: 02/04/25 05:00 Dose: Not Given Metronidazole (Metronidazole 500 Mg Tablet) 500 mg PO Q8H [facility] Last Admin: 02/04/25 03:00 Dose: 500 mg Morphine Sulfate (Morphine 4 Mg/Ml Sdv 1 Ml) 4 mg IVP Q4H PRN PRN Reason: SEVERE PAIN Last Admin: 02/04/25 03:25 Dose: 4 mg Multivitamins Therapeutic (Multivitamin Therapeutic Tablet) 1 tab PO DAILY [facility] Last Admin: 02/04/25 05:00 Dose: 1 tab Mupirocin (Mupirocin Oint 22 Gm) 1 applic NASAL BID [facility] Stop: 02/08/25 16:59 Last Admin: 02/04/25 05:01 Dose: Not Given Naloxone HCl (Naloxone 0.4 Mg/Ml Sdv) 0.4 mg IVP PRN PRN PRN Reason: RESPIRATORY RATE < 8/MIN Naloxone HCl (Naloxone 0.4 Mg/Ml Sdv) 0.1 mg IVP Q2M PRN PRN Reason: Respiratory rate less than 8. Ondansetron HCl (Ondansetron 2 Mg/Ml Sdv 2 Ml) 4 mg IVP Q8H PRN PRN Reason: vomiting, or N/V if npo Last Admin: 02/03/25 05:21 Dose: 4 mg Ondansetron HCl (Ondansetron 2 Mg/Ml Sdv 2 Ml) 4 mg IVP Q6H PRN PRN Reason: NAUSEA AND VOMITING Polysaccharide Iron Complex (Iron Polysaccharide Complex 150 Mg Capsule) 150 mg PO BIDWM [facility] Last Admin: 02/04/25 09:53 Dose: 150 mg Senna/Docusate Sodium (Sennosides-Docusate Tablet) 2 tab PO BID [facility] Last Admin: 02/04/25 04:59 Dose: 2 tab Sevelamer Carbonate (Sevelamer 800 Mg Tablet) 1,600 mg PO TID [facility] Last Admin: 02/04/25 04:59 Dose: 1,600 mg Trazodone HCl (Trazodone 150 Mg Tablet) 150 mg PO BEDTIME [facility] Last Admin: 02/03/25 20:06 Dose: 150 mg Vitamin D (Cholecalciferol (Vitamin D3) 1,000 Unit Tablet) 1,000 unit PO DAILY [facility] Last Admin: 02/04/25 05:00 Dose: 1,000 unit Vitals/I&O/Wt Last Vital Signs Temp 97.2 F L 02/04/25 09:00 Pulse 95 02/04/25 09:00 Resp 10 L 02/04/25 09:00 BP 90/63 02/04/25 09:00 Pulse Ox 98 02/04/25 09:00 O2 Del Method Nasal Cannula 02/04/25 07:56 O2 Flow Rate 3 02/04/25 07:56 FiO2 40 02/03/25 20:09 02/03/25 02/04/25 02/04/25 22:59 06:59 14:59 Intake Total 80.00 / 230.00 1032.500 / 1262.500 Output Total 1500 / 1500 Balance 80.00 / 230.00 -467.500 / -237.500 Weight last 48 hrs Weight 86.8 kg Weight 87.997 kg Weight 88 kg Physical Exam 2 Narrative: Obese man in bed using nasal cannula oxygen vital signs noted. On Levophed HEENT normocephalic atraumatic. Neck is supple Lungs have dull bases bilaterally Heart irregular positive S1-S2. Abdomen is soft positive bowel sounds. Extremities -significant for right arm edema. 1+ leg edema Upper extremity AV fistula does not work. Patient has subclavian permacath. Neuro awake alert oriented x 3 Data 02/04/25 04:02 02/04/25 04:02 A&P Assessment and plan 1. ESRD on dialysis: 49-year-old gentleman ESRD patient has dialysis Thursday and Thursday. 1. Patient required dialysis last night for hyperkalemia will continue to monitor potassium for dialysis needs. Continue to wean off pressors. 2. Status post hip surgery. Please stop NSAIDs. At risk for bleeding with ESRD 3. Mild bleed with surgery hemoglobin down from 15.3 preoperative to 12.4. 4. Patient on Eliquis for A-fib at home. Restart if okay with orthopedic surgery 5. Severe hyperphosphatemia improving with a phosphorus binder and hemodialysis 6. COPD 7. Heart failure with preserved ejection fraction. 8. Recent cat scratch disease and cellulitis continue antibiotics as per medical physician. 9. renal dose all abx for ESRD pt Patient was seen and examined using her visual primary date of her nurse. Patient consented to telehealth and to dialysis. Plan: See above. PDMP PDMP Reviewed: Not Reviewed Attestations 2 Medical Necessity Statement*: Patient is on pressors postop day 1 status post hip surgery. Further care as per hospitalist. Dialysis as needed for hyperkalemia. Time Spent in Patient Care: Greater than 35 minutes (>than 50% of time spent in counselling and/or direct pt care on unit) . Coding Level of Care Code Acute Code for Chg Fwd Diagnoses ESRD on dialysis N18.6; Z99.2
--- NOTE | 2025-02-04 11:34 | P.PN_ITS ---
Subjective 2 Subjective: Patient status post endoprosthetic replacement in the right hip. He is now in the ICU for further monitoring and medical care. From an orthopedic standpoint no changes since PACU Vitals/I&O/Wt Last Vital Signs Temp 97.2 F L 02/04/25 09:00 Pulse 95 02/04/25 09:00 Resp 10 L 02/04/25 09:00 BP 90/63 02/04/25 09:00 Pulse Ox 98 02/04/25 09:00 O2 Del Method Nasal Cannula 02/04/25 07:56 O2 Flow Rate 3 02/04/25 07:56 FiO2 40 02/03/25 20:09 02/03/25 02/04/25 02/04/25 22:59 06:59 14:59 Intake Total 80.00 / 230.00 1032.500 / 1262.500 96 / 96 Output Total 1500 / 1500 Balance 80.00 / 230.00 -467.500 / -237.500 96 / 96 Weight last 48 hrs Weight 191 lb 5.78 oz Weight 194 lb Weight 194 lb 0.108 oz Physical Exam 2 Narrative: On exam today patient is sound asleep. Nursing staff indicate he just was given IV narcotics. His dressings are clear. Data 02/04/25 04:02 02/04/25 04:02 A&P Assessment and plan 1. Closed fracture of right hip with delayed healing, subsequent encounter: Patient's status post endoprosthetic replacement of his right hip yesterday. Now postop day 1. All is going well. Slight drop in hemoglobin otherwise no other concerns from nursing staff at this time. Patient is sound asleep Plan: Plan at this time is to continue on with physical therapy for her progressive ambulation weightbearing as tolerated on the right. Patient may be returned to his Eliis at any time now. I will continue follow-up during this hospital stay PDMP PDMP Reviewed: Not Reviewed Attestations 2 Medical Necessity Statement*: Patient still in need of pain control as well as a medical support. Coding Level of Care Code Acute Code for Chg Fwd Diagnoses Closed fracture of right hip with delayed healing, subsequent encounter S72.001G Encounter type: subsequent encounter Fracture healing: with delayed healing
--- NOTE | 2025-02-04 15:04 | P.PN_ITS ---
Subjective 2 Subjective: Patient was seen this morning, alert oriented x 2, easily falls back asleep but is able to be awakened, pain is well-controlled Vitals/I&O/Wt Last Vital Signs Temp 97.2 F L 02/04/25 09:00 Pulse 90 02/04/25 14:00 Resp 18 02/04/25 13:25 BP 108/69 02/04/25 12:00 Pulse Ox 98 02/04/25 13:25 O2 Del Method Nasal Cannula 02/04/25 13:25 O2 Flow Rate 3 02/04/25 13:25 FiO2 40 02/03/25 20:09 02/04/25 02/04/25 02/04/25 06:59 14:59 22:59 Intake Total 1032.500 / 1262.500 596 / 596 Output Total 1500 / 1500 0 / 0 Balance -467.500 / -237.500 596 / 596 Weight last 48 hrs Weight 86.8 kg Weight 87.997 kg Physical Exam 2 Const: COMMON NORMALS: no acute distress and patient oriented x3 Resp: COMMON NORMALS: normal respiratory effort, No retractions, No use of accessory muscles and clear to auscultation bilaterally AUSCULTATION: clear to auscultation bilaterally Cardio: COMMON NORMALS: regular rate, regular rhythm, S1 normal heart sound present and S2 normal heart sound present RATE: regular rate RHYTHM: r egular rhythm HEART SOUNDS: S1 normal heart sound present and S2 normal heart sound present GI: COMMON NORMALS: Normal to inspection, nondistended, normoactive bowel sounds present and non-tender Back/Pelvis: OTHER: Surgical site, right hip looks clean and dry Extremity: COMMON NORMALS: no pedal edema Neuro: COMMON NORMALS: patient oriented x3 Psych: COMMON NORMALS: mental status grossly normal Skin: NARRATIVE SKIN EXAM: Right arm swelling present, radial pulses palpable Data 02/04/25 04:02 02/04/25 04:02 A&P Assessment and plan 1. Atrial fibrillation with rapid ventricular response: - Transition to p.o. amiodarone - Transition to Eliquis 2. Closed fracture of right hip with delayed healing, subsequent encounter: - Status post surgical intervention - Pain control - Eliquis 3. Hyperkalemia: - Status post dialysis Plan: Acute pain due to injury : Pain control Atrial fibrillation on anticoagulation (apixaban) : - Eliquis - Amiodarone End-stage renal disease on hemodialysis : - Dialysis Chronic obstructive pulmonary disease (not in exacerbation) : COPD without current exacerbation - breathing treatments scheduled as needed for COPD. Hypertension : Chronic hypertension; ongoing home regimen referenced. - Continue diltiazem for blood pressure control. - Continue metoprolol for blood pressure control. Congestive heart failure (not in exacerbation) : - Continue furosemide (Lasix). Right upper extremity edema with reported prior venous thrombosis : Persistent right arm swelling with patient-reported prior venous thrombosis; on anticoagulation. - Elevate right upper extremity when possible. Recent cellulitis and cat scratch disease : Recent hospitalization for right arm cellulitis and cat scratch disease; improving without fevers at home. - Continue antibiotics as recently prescribed to complete the course. PDMP PDMP Reviewed: Not Reviewed Attestations 2 Medical Necessity Statement*: Patient requires hospitalization for right hip fracture Diagnoses Atrial fibrillation with rapid ventricular response I48.91 Closed fracture of right hip with delayed healing, subsequent encounter S72.001G Encounter type: subsequent encounter Fracture healing: with delayed healing Hyperkalemia E87.5
[2025-02-04] MEDS: chlorhexidine gluconate 0.12% Btl 473 mL 30 ML MUCOUS MEM (17:16)
[2025-02-04] MEDS: ondansetron 2 mg/ML SDV 2 mL 4 MG IVP (17:28)
--- NOTE | 2025-02-04 17:32 | PC.NURSE ---
poor intake of food today ate several boxes of ice cream ice pack to right hip dressing with some drainage noted no urine output today
[2025-02-04] MEDS: norepinephrine 4 MG/250 ML BAG 11.25 MG IV (19:26)
[2025-02-05] VITALS (56 sets, daily range): BP systolic 68–132; BP diastolic 52–95; PULSE 88–139; RESP 9–26; TEMP 36.1–37.2; O2SAT 90–100; BMI 28.3
--- NOTE | 2025-02-05 03:22 | PC.NURSE ---
Tachycardia: Patient's HR maintaining in the 120s-150s Afib, Dr. Hannon was contacted and started cardizem and midodrine. See MAR for orders.
[2025-02-05] MEDS: ondansetron 2 mg/ML SDV 2 mL 4 MG IVP ×3 (04:11→15:14)
[2025-02-05 05:13] LABS: Hematocrit 41.4 % (37-53); Hemoglobin 13.20 g/dL (11.27-16.99); Mean Corpuscular HGB Conc 31.9 g/dL (30-55); Mean Corpuscular Hemoglobin 32.5 pg (27-33); Mean Corpuscular Volume 102.0 fl (82-101); Nucleated Red Blood Cells % 0 %; Platelet Count 162 10^3/cmm (157-399); Red Blood Count 4.06 10^6/uL (3.85-5.65); White Blood Count 9.51 10^3/uL (3.29-11.43)
--- NOTE | 2025-02-05 05:19 | PC.NURSE ---
Hold cardizem: Patient had low BP requiring levophed, Dr. Hannon gave orders to hold cardizem dose. is aware of HR.
[2025-02-05] MEDS: multivitamin therapeutic Tablet 1 TAB PO (05:27)
[2025-02-05] MEDS: mupirocin oint 22 gm 1 APPLIC NASAL (05:31)
[2025-02-05] MEDS: HYDROcodone-acetaminophen 5-325 mg Tablet 1 TAB PO ×4 (05:37→22:56)
[2025-02-05 05:39] LABS: Alanine Aminotransferase 8 U/L (0-41); Albumin Level 3.4 g/dL (3.5-5.2); Alkaline Phosphatase 156 U/L (40-130); Anion Gap 21.0 (5-19); Aspartate Amino Transferase 11 U/L (0-40); Blood Urea Nitrogen 47 mg/dL (6-20); Calcium 8.7 mg/dL (8.5-10.5); Carbon Dioxide 25 mmol/L (22-29); Chloride 94 mmol/L (98-107); Globulin 3.2 g/dL (1.3-4.6); Glucose 106 mg/dL (65-115); Magnesium 2.1 mg/dL (1.7-2.3); Osmolality Calculated 293 mOsm/kg (285-295); Potassium 5.0 mmol/L (3.5-5.1); Sodium 135 mmol/L (136-145); Total Protein 6.6 g/dL (6.6-8.7)
--- NOTE | 2025-02-05 07:40 | PM.PN ---
Subjective Subjective: Seen and examined. Patient now with irregular heartbeat and tachycardic. No nausea no vomiting no diarrhea no shortness of breath decreased leg pain. Medications: Reviewed: Yes Medication Review Details: Current Medications Acetaminophen (Acetaminophen 325 Mg Tablet) 650 mg PO Q6H PRN PRN Reason: Mild/Mod Pain Or Temp >/= 101 Hydrocodone Bitart/Acetaminophen (Hydrocodone-Acetaminophen 5-325 Mg Tablet) 1 tab PO Q4H PRN PRN Reason: MODERATE PAIN Last Admin: 02/05/25 05:37 Dose: 1 tab Albuterol Sulfate (Albuterol 2.5 Mg/3 Ml Neb) 2.5 mg INHALATION ONCE PRN PRN Reason: WHEEZING Albuterol/Ipratropium (Ipratropium-Albuterol 3 Ml Neb) 3 ml INHALATION Q6H PRN PRN Reason: SHORTNESS OF BREATH Albuterol/Ipratropium (Ipratropium-Albuterol 3 Ml Neb) 3 ml INHALATION Q6H.RESP [facility] Last Admin: 02/04/25 19:41 Dose: 3 ml Amiodarone HCl (Amiodarone 200 Mg Tablet) 400 mg PO BID [facility] Last Admin: 02/05/25 04:23 Dose: 400 mg Apixaban (Apixaban 5 Mg Tablet) 5 mg PO Q12H [facility] Last Admin: 02/04/25 22:56 Dose: 5 mg Aspirin (Aspirin 81 Mg Ec Tablet) 81 mg PO DAILY [facility] Last Admin: 02/05/25 05:27 Dose: 81 mg Atorvastatin Calcium (Atorvastatin 40 Mg Tablet) 40 mg PO BEDTIME [facility] Last Admin: 02/04/25 20:08 Dose: 40 mg Azithromycin (Azithromycin 250 Mg Tablet) 250 mg PO BIDWM [facility]; Protocol Last Admin: 02/04/25 17:12 Dose: 250 mg Calcium Carbonate (Calcium Carbonate 500 Mg Chew Tablet) 1,000 mg PO BID [facility] Last Admin: 02/05/25 05:32 Dose: 1,000 mg Chlorhexidine Gluconate (Chlorhexidine Gluconate 0.12% Btl 473 Ml) 30 ml MUCOUS MEM QID [facility] Last Admin: 02/05/25 05:32 Dose: Not Given Cyclobenzaprine HCl (Cyclobenzaprine 10 Mg Tablet) 5 mg PO TID PRN PRN Reason: MUSCLE SPASMS Last Admin: 02/02/25 16:00 Dose: 5 mg Diltiazem HCl (Diltiazem 30 Mg Tablet) 30 mg PO TID [facility] Last Admin: 02/05/25 05:19 Dose: Not Given Diphenhydramine HCl (Diphenhydramine 25 Mg Capsule) 25 mg PO Q8H PRN PRN Reason: ITCHING Hydromorphone HCl (Hydromorphone 0.5 Mg/0.5 Ml Inj) 0.2 mg IVP Q6H PRN PRN Reason: PAIN Last Admin: 02/04/25 04:09 Dose: 0.2 mg Dextrose (D10w) 125 mls @ 750 mls/hr IV PRN PRN PRN Reason: HYPOGLYCEMIA Last Infusion: 01/31/25 12:49 Dose: Infused Sodium Chloride (Sodium Chloride 0.9%) 1,000 mls @ 0 mls/hr IV .Q0M PRN PRN Reason: hypotension or symptomatic Albumin Human (Albumin) 12.5 gm in 50 mls @ 60 mls/hr IV PRN PRN PRN Reason: Hypotension and/or symptomatic Norepinephrine Bitartrate (Levophed) 4 mg in 250 mls @ 0 mls/hr IV .Q0M [facility]; Protocol Last Titration: 02/05/25 04:02 Dose: 1 mcg/min, 3.75 mls/hr Linezolid (Linezolid 600 Mg Tablet) 600 mg PO BID [facility]; Protocol Last Admin: 02/05/25 05:29 Dose: 600 mg Metoprolol Succinate (Metoprolol Succinate Er (24 Hr) 25 Mg Tablet) 25 mg PO DAILY [facility] On Hold: 02/04/25 22:39 Last Admin: 02/04/25 05:00 Dose: Not Given Metronidazole (Metronidazole 500 Mg Tablet) 500 mg PO Q8H [facility] Last Admin: 02/05/25 04:19 Dose: 500 mg Midodrine (Midodrine 5 Mg Tablet) 10 mg PO TID [facility] Last Admin: 02/05/25 05:27 Dose: 10 mg Morphine Sulfate (Morphine 4 Mg/Ml Sdv 1 Ml) 4 mg IVP Q4H PRN PRN Reason: SEVERE PAIN Last Admin: 02/04/25 03:25 Dose: 4 mg Multivitamins Therapeutic (Multivitamin Therapeutic Tablet) 1 tab PO DAILY [facility] Last Admin: 02/05/25 05:27 Dose: 1 tab Mupirocin (Mupirocin Oint 22 Gm) 1 applic NASAL BID [facility] Stop: 02/08/25 16:59 Last Admin: 02/05/25 05:31 Dose: 1 applic Naloxone HCl (Naloxone 0.4 Mg/Ml Sdv) 0.4 mg IVP PRN PRN PRN Reason: RESPIRATORY RATE < 8/MIN Naloxone HCl (Naloxone 0.4 Mg/Ml Sdv) 0.1 mg IVP Q2M PRN PRN Reason: Respiratory rate less than 8. Ondansetron HCl (Ondansetron 2 Mg/Ml Sdv 2 Ml) 4 mg IVP Q6H PRN PRN Reason: NAUSEA AND VOMITING Last Admin: 02/05/25 04:11 Dose: 4 mg Polysaccharide Iron Complex (Iron Polysaccharide Complex 150 Mg Capsule) 150 mg PO BIDWM [facility] Last Admin: 02/04/25 17:14 Dose: 150 mg Senna/Docusate Sodium (Sennosides-Docusate Tablet) 2 tab PO BID [facility] Last Admin: 02/05/25 05:32 Dose: Not Given Sevelamer Carbonate (Sevelamer 800 Mg Tablet) 1,600 mg PO TID [facility] Last Admin: 02/05/25 05:28 Dose: 1,600 mg Trazodone HCl (Trazodone 150 Mg Tablet) 150 mg PO BEDTIME [facility] Last Admin: 02/04/25 20:08 Dose: 150 mg Vitamin D (Cholecalciferol (Vitamin D3) 1,000 Unit Tablet) 1,000 unit PO DAILY [facility] Last Admin: 02/05/25 05:29 Dose: 1,000 unit Vitals/I&O/Wt Last Vital Signs Temp 98.2 F 02/05/25 04:15 Pulse 134 H 02/05/25 06:00 Resp 14 02/05/25 04:00 BP 108/81 02/05/25 04:15 Pulse Ox 90 02/05/25 04:15 O2 Del Method Nasal Cannula 02/05/25 04:15 O2 Flow Rate 3 02/05/25 04:15 FiO2 40 02/03/25 20:09 02/04/25 02/05/25 02/05/25 22:59 06:59 14:59 Intake Total 460.688 / 1456.688 42.750 / 1499.438 Output Total 700 / 700 Balance 460.688 / 1456.688 -657.250 / 799.438 Weight last 48 hrs Weight 89.358 kg Weight 86.8 kg Physical Exam Narrative: Obese man in bed using nasal cannula oxygen vital signs noted. No longer on Levophed. However now in A-fib with RVR HEENT normocephalic atraumatic. Neck is supple Lungs have good air movement bilaterally Heart irregular irregular tachycardic, positive S1-S2. Abdomen is soft positive bowel sounds. Extremities -significant for right arm edema. 1+ leg edema Upper extremity AV fistula does not work. Patient has subclavian permacath. Neuro awake alert oriented x 3 Data 02/05/25 04:53 02/05/25 04:53 A&P Assessment and plan 1. ESRD on dialysis: 49-year-old gentleman ESRD patient has dialysis Thursday and Thursday. 1. ESRD plan for dialysis tomorrow 2. A-fib with RVR rate control as per medicine and cardiology. 3. Status post hip surgery. Pain control with none nephrotoxic medications as per hospitalist. 4. Mild bleed with surgery hemoglobin down from 15.3 preoperative to 13 5. Patient on Eliquis for A-fib at home. Restart if okay with orthopedic surgery 6. Severe hyperphosphatemia improving with a phosphorus binder and hemodialysis 7. COPD 8. Heart failure with preserved ejection fraction. 9. Recent cat scratch disease and cellulitis continue antibiotics as per medical physician. 10. renal dose all abx for ESRD pt Patient was seen and examined using her visual primary date of her nurse. Patient consented to telehealth and to dialysis. Plan: See above. PDMP PDMP Reviewed: Not Reviewed Attestations Medical Necessity Statement*: ESRD, A-fib with RVR, recent hip fracture repair. Time Spent in Patient Care: 16 - 35 minutes (>than 50% of time spent in counselling and/or direct pt care on unit). Coding Level of Care Code Acute Code for Chg Fwd Diagnoses ESRD on dialysis N18.6; Z99.2
[2025-02-05] MEDS: amiodarone 150 MG/100 ML PREMIX 400 MG IV (08:22)
[2025-02-05] MEDS: AMIODARONE HCL/D5W 900 MG/500 ML BAG 33.33 MG IV (08:39)
--- NOTE | 2025-02-05 10:53 | P.PN_ITS ---
Subjective 2 Subjective: Patient now postop day 2 from endoprosthetic replacement of the right hip. Patient continues to have medical issues including irregular heart rate etc. Notes indicate pain is under better control secondary as of surgery and fracture. No other orthopedic concerns at this time. Does not appear that physical therapy is worked with him yet. However, yesterday he was quite somnolent and notes this morning indicate that he is sleepy also. Vitals/I&O/Wt Last Vital Signs Temp 98.2 F 02/05/25 04:15 Pulse 110 H 02/05/25 10:03 Resp 18 02/05/25 10:03 BP 87/71 02/05/25 08:30 Pulse Ox 97 02/05/25 10:03 O2 Del Method Nasal Cannula 02/05/25 10:03 O2 Flow Rate 3 02/05/25 10:03 FiO2 40 02/03/25 20:09 02/04/25 02/05/25 02/05/25 22:59 06:59 14:59 Intake Total 460.688 / 1456.688 42.750 / 1499.438 100 / 100 Output Total 700 / 700 Balance 460.688 / 1456.688 -657.250 / 799.438 100 / 100 Weight last 48 hrs Weight 197 lb Weight 191 lb 5.78 oz Physical Exam 2 Narrative: No formal exam today Data 02/05/25 04:53 02/05/25 04:53 A&P Assessment and plan 1. Closed fracture of right hip with delayed healing, subsequent encounter: Patient status post endoprosthetic replacement of right femoral neck fracture. All is going well there. No nursing concerns from an orthopedic standpoint. Plan: Plan at this time is to continue on with the pain control as well as advancement to physical therapy for weightbearing as tolerated on the right. Patient in need of continued medical care PDMP PDMP Reviewed: Not Reviewed Attestations 2 Medical Necessity Statement*: Patient in need of continued medical care, pain control, physical therapy for return to ambulation Coding Level of Care Code Acute Code for Chg Fwd Diagnoses Closed fracture of right hip with delayed healing, subsequent encounter S72.001G Encounter type: subsequent encounter Fracture healing: with delayed healing
--- NOTE | 2025-02-05 11:02 | PC.NURSE ---
more awake this am now c/o nausea some emesis with zofran given off levophed monitor blood pressure which remains soft at time amio bolus and gtt started for afib rate 100s some edema remains very poor appitite noted
--- NOTE | 2025-02-05 15:39 | CTR_ITS ---
PROCEDURE INFORMATION: Exam: CT Abdomen And Pelvis Without Contrast Exam date and time: 02/05/2025 4:51 PM Age: 49 years old Clinical indication: Other: Projectile vomiting; Prior surgery; Surgery date: 3-7 days post-operative; Surgery type: Hip; Additional info: Projectile vommitimg TECHNIQUE: Imaging protocol: Computed tomography of the abdomen and pelvis without contrast. Radiation optimization: All CT scans at this facility use at least one of these dose optimization techniques: automated exposure control; mA and/or kV adjustment per patient size (includes targeted exams where dose is matched to clinical indication); or iterative reconstruction. COMPARISON: CR (PELVIS, ) 02/03/2025 6:31 PM RADIATION DOSE METRICS: Total DLP (mGy-cm): 715.31 FINDINGS: Tubes, catheters and devices: Tunneled peritoneal catheter curled in the pelvis. No fluid collection. Lungs: Right lower lobe atelectasis. Pleural spaces: Trace right pleural effusion. Esophagus: Circumferential thickening of the distal esophagus and small hiatal hernia which is nonspecific but can be seen in esophagitis. Liver: Normal. No mass. Gallbladder and biliary ducts: Biliary sludge. No CT evidence of acute cholecystitis. Pancreas: Normal. No ductal dilation. Spleen: Normal. No splenomegaly. Adrenal glands: Normal. No mass. Kidneys and ureters: Atrophic kidneys with cysts incompletely characterized on this examination. Stomach and bowel: Moderate volume stool burden. Appendix: No evidence of appendicitis. Intraperitoneal space: Unremarkable. No free air. No significant fluid collection. Vasculature: Diffuse vascular calcifications. Lymph nodes: Unremarkable. No enlarged lymph nodes. Urinary bladder: Unremarkable as visualized. Reproductive: Unremarkable as visualized. Bones/joints: Right total hip arthroplasty with postsurgical changes including foci of subcutaneous air in the soft tissues abutting the right hip. Hardware intact. Multilevel degenerative changes of the thoracolumbar spine. Soft tissues: See Bones/joints finding. CT/CT abdomen pelvis wo con [id number] IMPRESSION: 1. Circumferential thickening of the distal esophagus and small hiatal hernia which is nonspecific but can be seen in esophagitis. 2. Biliary sludge. No CT evidence of acute cholecystitis. COMMENTS: Consistent with the [employer]'s Incidental Findings Committee white paper (J Am Santos Radiol 2018): Any incidental renal lesion less than 1 cm or classified as too small to characterize, or any incidental cystic renal lesion characterized as simple-appearing, is likely benign. No follow-up imaging is recommended for these lesions per consensus recommendations based on imaging criteria.
--- NOTE | 2025-02-05 16:23 | P.PN_ITS ---
Subjective 2 Subjective: Patient was seen this morning, currently alert oriented x 3, following commands, does report pain at surgical site, no fevers, no chills, he developed A-fib with RVR, requiring amiodarone drip Vitals/I&O/Wt Last Vital Signs Temp 98 F 02/05/25 12:00 Pulse 108 H 02/05/25 15:52 Resp 18 02/05/25 15:52 BP 114/69 02/05/25 13:00 Pulse Ox 96 02/05/25 15:52 O2 Del Method Nasal Cannula 02/05/25 15:52 O2 Flow Rate 3 02/05/25 15:52 FiO2 40 02/03/25 20:09 02/05/25 02/05/25 02/05/25 06:59 14:59 22:59 Intake Total 42.750 / 1499.438 460 / 460 Output Total 700 / 700 700 / 700 Balance -657.250 / 799.438 -240 / -240 Weight last 48 hrs Weight 89.358 kg Weight 86.8 kg Physical Exam 2 Const: COMMON NORMALS: no acute distress and patient oriented x3 Resp: COMMON NORMALS: normal respiratory effort, No retractions, No use of accessory muscles and clear to auscultation bilaterally AUSCULTATION: clear to auscultation bilaterally Cardio: COMMON NORMALS: regular rate, regular rhythm, S1 normal heart sound present and S2 normal heart sound present RATE: regular rate RHYTHM: r egular rhythm HEART SOUNDS: S1 normal heart sound present and S2 normal heart sound present GI: COMMON NORMALS: Normal to inspection, nondistended, normoactive bowel sounds present and non-tender Extremity: COMMON NORMALS: no pedal edema Neuro: COMMON NORMALS: patient oriented x3 Psych: COMMON NORMALS: mental status grossly normal Data 02/05/25 04:53 02/05/25 04:53 A&P Assessment and plan 1. Atrial fibrillation with rapid ventricular response: - Transition to p.o. amiodarone - Transition to Eliquis 2. Closed fracture of right hip with delayed healing, subsequent encounter: - Status post surgical intervention - Pain control - Eliquis 3. Hyperkalemia: - Status post dialysis Plan: Acute pain due to injury : Pain control Atrial fibrillation on anticoagulation (apixaban) : - Eliquis - Amiodarone drip, with amiodarone bolus End-stage renal disease on hemodialysis : - Dialysis Chronic obstructive pulmonary disease (not in exacerbation) : COPD without current exacerbation - breathing treatments scheduled as needed for COPD. Hypertension : Chronic hypertension; ongoing home regimen referenced. - Continue diltiazem for blood pressure control. - Continue metoprolol for blood pressure control. Congestive heart failure (not in exacerbation) : - Continue furosemide (Lasix). Right upper extremity edema with reported prior venous thrombosis : Persistent right arm swelling with patient-reported prior venous thrombosis; on anticoagulation. - Elevate right upper extremity when possible. Recent cellulitis and cat scratch disease : Recent hospitalization for right arm cellulitis and cat scratch disease; improving without fevers at home. - Continue antibiotics as recently prescribed to complete the course. Constipation, bowel regimen This late afternoon, patient episode of projectile vomiting, nausea vomiting, keep n.p.o., CT scan abdomen pelvis PDMP PDMP Reviewed: Not Reviewed Attestations 2 Medical Necessity Statement*: Patient requires hospitalization for nausea and vomiting, atrial fibrillation with rapid ventricular response Diagnoses Atrial fibrillation with rapid ventricular response I48.91 Closed fracture of right hip with delayed healing, subsequent encounter S72.001G Encounter type: subsequent encounter Fracture healing: with delayed healing Hyperkalemia E87.5
[2025-02-05] MEDS: sennosides-docusate Tablet 2 TAB PO (17:24)
[2025-02-05] MEDS: polyethylene glycol 3350 Pkt 17 gm PO (17:25)
[2025-02-06] VITALS (51 sets, daily range): BP systolic 87–147; BP diastolic 49–85; PULSE 81–107; RESP 10–26; TEMP 36.6–37.1; O2SAT 93–96
[2025-02-06] MEDS: multivitamin therapeutic Tablet 1 TAB PO (04:18)
[2025-02-06] MEDS: AMIODARONE HCL/D5W 900 MG/500 ML BAG 16.67 MG IV (04:25)
[2025-02-06 04:35] LABS: Hematocrit 39.0 % (37-53); Hemoglobin 12.50 g/dL (11.27-16.99); Mean Corpuscular HGB Conc 32.1 g/dL (30-55); Mean Corpuscular Hemoglobin 32.6 pg (27-33); Mean Corpuscular Volume 101.8 fl (82-101); Nucleated Red Blood Cells % 0 %; Platelet Count 165 10^3/cmm (157-399); Red Blood Count 3.83 10^6/uL (3.85-5.65); White Blood Count 8.05 10^3/uL (3.29-11.43)
[2025-02-06 04:51] LABS: Alanine Aminotransferase 7 U/L (0-41); Albumin Level 3.1 g/dL (3.5-5.2); Alkaline Phosphatase 150 U/L (40-130); Anion Gap 22.5 (5-19); Aspartate Amino Transferase 9 U/L (0-40); Blood Urea Nitrogen 63 mg/dL (6-20); Calcium 9.2 mg/dL (8.5-10.5); Carbon Dioxide 27 mmol/L (22-29); Chloride 89 mmol/L (98-107); Globulin 3.2 g/dL (1.3-4.6); Glucose 85 mg/dL (65-115); Magnesium 2.2 mg/dL (1.7-2.3); Osmolality Calculated 293 mOsm/kg (285-295); Potassium 5.5 mmol/L (3.5-5.1); Sodium 133 mmol/L (136-145); Total Protein 6.3 g/dL (6.6-8.7)
--- NOTE | 2025-02-06 05:03 | PC.NURSE ---
Patient refusing all laxative/stool softener medications at this time. Explained the importance of patient having a bowel movement and need for medications. Patient stated, I'm passing gas. You haven't let me have any solid food. I don't have anything to poop out! Every time I turn around you're giving me more meds! I didn't sign up for all these meds! Explained to patient that he was allowed to refuse anything he wanted. Senna, Miralax, and dulcolax held at this time.
[2025-02-06] MEDS: heparin, porcine 1,000 unit/mL INJ 10 mL 1000 UNIT IV (07:01)
--- NOTE | 2025-02-06 08:28 | PC.HD ---
Dr. Mcdowell at bedside via iPad while dialysis is occurring. Per printer apprentice, no further fluid removal in attempt to maintain satisfactory BPs. UF rate adjusted to minimum rate of 300 mL/hour.
--- NOTE | 2025-02-06 08:47 | PM.PN ---
Subjective Subjective: Patient seen and examined. On dialysis requiring pressors. Weak chronic shortness of breath. No nausea or vomiting. Patient wants to go home. Medications: Reviewed: Yes Medication Review Details: Current Medications Acetaminophen (Acetaminophen 325 Mg Tablet) 650 mg PO Q6H PRN PRN Reason: Mild/Mod Pain Or Temp >/= 101 Hydrocodone Bitart/Acetaminophen (Hydrocodone-Acetaminophen 5-325 Mg Tablet) 1 tab PO Q4H PRN PRN Reason: MODERATE PAIN Last Admin: 02/05/25 22:56 Dose: 1 tab Albuterol Sulfate (Albuterol 2.5 Mg/3 Ml Neb) 2.5 mg INHALATION ONCE PRN PRN Reason: WHEEZING Albuterol/Ipratropium (Ipratropium-Albuterol 3 Ml Neb) 3 ml INHALATION Q6H PRN PRN Reason: SHORTNESS OF BREATH Albuterol/Ipratropium (Ipratropium-Albuterol 3 Ml Neb) 3 ml INHALATION Q6H.RESP [facility] Last Admin: 02/06/25 07:50 Dose: Not Given Apixaban (Apixaban 5 Mg Tablet) 5 mg PO Q12H [facility] Last Admin: 02/05/25 22:19 Dose: 5 mg Aspirin (Aspirin 81 Mg Ec Tablet) 81 mg PO DAILY [facility] Last Admin: 02/06/25 04:18 Dose: 81 mg Atorvastatin Calcium (Atorvastatin 40 Mg Tablet) 40 mg PO BEDTIME [facility] Last Admin: 02/05/25 20:05 Dose: 40 mg Azithromycin (Azithromycin 250 Mg Tablet) 250 mg PO BIDWM [facility]; Protocol Last Admin: 02/05/25 17:25 Dose: 250 mg Bisacodyl (Bisacodyl 5 Mg Tablet) 10 mg PO DAILY [facility] Last Admin: 02/06/25 04:18 Dose: Not Given Calcium Carbonate (Calcium Carbonate 500 Mg Chew Tablet) 1,000 mg PO BID [facility] Last Admin: 02/06/25 04:18 Dose: 1,000 mg Chlorhexidine Gluconate (Chlorhexidine Gluconate 0.12% Btl 473 Ml) 30 ml MUCOUS MEM QID [facility] Last Admin: 02/06/25 04:23 Dose: Not Given Cyclobenzaprine HCl (Cyclobenzaprine 10 Mg Tablet) 5 mg PO TID PRN PRN Reason: MUSCLE SPASMS Last Admin: 02/02/25 16:00 Dose: 5 mg Diltiazem HCl (Diltiazem 30 Mg Tablet) 30 mg PO TID [facility] Last Admin: 02/06/25 04:18 Dose: 30 mg Diphenhydramine HCl (Diphenhydramine 25 Mg Capsule) 25 mg PO Q8H PRN PRN Reason: ITCHING Hydromorphone HCl (Hydromorphone 0.5 Mg/0.5 Ml Inj) 0.2 mg IVP Q6H PRN PRN Reason: PAIN Last Admin: 02/04/25 04:09 Dose: 0.2 mg Dextrose (D10w) 125 mls @ 750 mls/hr IV PRN PRN PRN Reason: HYPOGLYCEMIA Last Infusion: 01/31/25 12:49 Dose: Infused Sodium Chloride (Sodium Chloride 0.9%) 1,000 mls @ 0 mls/hr IV .Q0M PRN PRN Reason: hypotension or symptomatic Albumin Human (Albumin) 12.5 gm in 50 mls @ 60 mls/hr IV PRN PRN PRN Reason: Hypotension and/or symptomatic Norepinephrine Bitartrate (Levophed) 4 mg in 250 mls @ 0 mls/hr IV .Q0M [facility]; Protocol Last Titration: 02/05/25 19:00 Dose: 0 mcg/min, 0 mls/hr AMIODARONE HCL/D5W (Amiodarone 900 Mg/500 Ml-D5w) 900 mg in 500 mls @ 0 mls/hr IV .Q0M [facility]; Protocol Last Admin: 02/06/25 04:25 Dose: 0.5 mg/min, 16.67 mls/hr Linezolid (Linezolid 600 Mg Tablet) 600 mg PO BID [facility]; Protocol Last Admin: 02/06/25 04:18 Dose: 600 mg Metoclopramide HCl (Metoclopramide 5 Mg/Ml Sdv 2 Ml) 5 mg IVP Q6H PRN PRN Reason: NAUSEA AND VOMITING Metoprolol Succinate (Metoprolol Succinate Er (24 Hr) 25 Mg Tablet) 25 mg PO DAILY [facility] On Hold: 02/04/25 22:39 Last Admin: 02/04/25 05:00 Dose: Not Given Metronidazole (Metronidazole 500 Mg Tablet) 500 mg PO Q8H [facility] Last Admin: 02/06/25 04:21 Dose: 500 mg Morphine Sulfate (Morphine 4 Mg/Ml Sdv 1 Ml) 4 mg IVP Q4H PRN PRN Reason: SEVERE PAIN Last Admin: 02/04/25 03:25 Dose: 4 mg Multivitamins Therapeutic (Multivitamin Therapeutic Tablet) 1 tab PO DAILY [facility] Last Admin: 02/06/25 04:18 Dose: 1 tab Mupirocin (Mupirocin Oint 22 Gm) 1 applic NASAL BID [facility] Stop: 02/08/25 16:59 Last Admin: 02/06/25 04:23 Dose: Not Given Naloxone HCl (Naloxone 0.4 Mg/Ml Sdv) 0.4 mg IVP PRN PRN PRN Reason: RESPIRATORY RATE < 8/MIN Naloxone HCl (Naloxone 0.4 Mg/Ml Sdv) 0.1 mg IVP Q2M PRN PRN Reason: Respiratory rate less than 8. Ondansetron HCl (Ondansetron 2 Mg/Ml Sdv 2 Ml) 4 mg IVP Q6H PRN PRN Reason: NAUSEA AND VOMITING Last Admin: 02/05/25 15:14 Dose: 4 mg Polyethylene Glycol (Polyethylene Glycol 3350 Pkt 17 Gm) 17 gm PO Q12H [facility] Last Admin: 02/06/25 04:17 Dose: Not Given Polysaccharide Iron Complex (Iron Polysaccharide Complex 150 Mg Capsule) 150 mg PO BIDWM [facility] Last Admin: 02/05/25 17:24 Dose: 150 mg Promethazine HCl (Promethazine 25 Mg/Ml Sdv 1 Ml) 25 mg IM Q6H PRN PRN Reason: NAUSEA Senna/Docusate Sodium (Sennosides-Docusate Tablet) 2 tab PO BID [facility] Last Admin: 02/06/25 04:17 Dose: Not Given Sevelamer Carbonate (Sevelamer 800 Mg Tablet) 1,600 mg PO TID [facility] Last Admin: 02/06/25 04:18 Dose: 1,600 mg Trazodone HCl (Trazodone 150 Mg Tablet) 150 mg PO BEDTIME [facility] Last Admin: 02/05/25 20:05 Dose: 150 mg Vitamin D (Cholecalciferol (Vitamin D3) 1,000 Unit Tablet) 1,000 unit PO DAILY [facility] Last Admin: 02/06/25 04:18 Dose: 1,000 unit Vitals/I&O/Wt Last Vital Signs Temp 98.2 F 02/06/25 07:16 Pulse 90 02/06/25 07:51 Resp 12 02/06/25 07:16 BP 147/85 02/06/25 07:16 Pulse Ox 95 02/05/25 20:00 O2 Del Method Nasal Cannula 02/06/25 07:51 O2 Flow Rate 3 02/06/25 07:51 FiO2 40 02/03/25 20:09 02/05/25 02/06/25 02/06/25 22:59 06:59 14:59 Intake Total 650.535 / 1110.535 355.590 / 1466.125 Output Total 400 / 1400 Balance 250.535 / -289.465 355.590 / 66.125 Weight last 48 hrs Weight 89.358 kg Physical Exam Narrative: Obese man in bed using nasal cannula oxygen vital signs noted. He is currently on hemodialysis and on Levophed. Vital signs noted. Back in sinus rhythm. Blood pressure on low side HEENT normocephalic atraumatic. Neck is supple Lungs have good air movement bilaterally Heart positive S1 and S2 . Abdomen is soft positive bowel sounds. Extremities -significant for right arm edema. 1+ leg edema Upper extremity AV fistula does not work. Patient has subclavian permacath. Neuro awake alert oriented x 3 Data 02/06/25 04:04 02/06/25 04:04 A&P Assessment and plan 1. ESRD on dialysis: 49-year-old gentleman ESRD patient has dialysis Thursday and Thursday. 1. ESRD dialysis now requiring pressors. Indication hyperkalemia ESRD. Unable to remove much fluids at this time. Will monitor 2. A-fib with RVR rate control as per medicine and cardiology. 3. Status post hip surgery. Pain control with none nephrotoxic medications as per hospitalist. 4. Mild bleed with surgery hemoglobin down from 15.3 preoperative to 12.5 5. Patient on Eliquis for A-fib 6. Severe hyperphosphatemia improving with a phosphorus binder and hemodialysis 7. COPD 8. Heart failure with preserved ejection fraction. 9. Recent cat scratch disease and cellulitis continue antibiotics as per medical physician. 10. renal dose all abx for ESRD pt Patient was seen and examined using her visual primary date of her nurse. Patient consented to telehealth and to dialysis. Plan: See above. Hemodialysis. Wean off pressors as tolerated. PDMP PDMP Reviewed: Not Reviewed Attestations Medical Necessity Statement*: End-stage renal disease hypotensive on hemodialysis. Renal dose antibiotics Time Spent in Patient Care: 16 - 35 minutes (>than 50% of time spent in counselling and/or direct pt care on unit). Coding Level of Care Code Acute Code for g Fwd Diagnoses ESRD on dialysis N18.6; Z99.2
[2025-02-06] MEDS: HYDROcodone-acetaminophen 5-325 mg Tablet 1 TAB PO ×2 (09:10→17:07)
--- NOTE | 2025-02-06 12:10 | P.PN_ITS ---
Subjective 2 Subjective: Hospital course, labs appreciated. Patient seen while having dialysis. Awake and alert. Denies any nausea, vomiting, headache. Blood pressure slightly soft during dialysis but recovered after completion. Heart rate controlled. Has remained afebrile. Currently on room air. Vitals/I&O/Wt Last Vital Signs Temp 97.9 F 02/06/25 10:46 Pulse 81 02/06/25 10:46 Resp 14 02/06/25 10:46 BP 110/64 02/06/25 10:46 Pulse Ox 95 02/05/25 20:00 O2 Del Method Nasal Cannula 02/06/25 07:51 O2 Flow Rate 3 02/06/25 07:51 FiO2 40 02/03/25 20:09 02/05/25 02/06/25 02/06/25 22:59 06:59 14:59 Intake Total 650.535 / 1110.535 355.590 / 1466.125 500 / 500 Output Total 400 / 1400 1592 / 1592 Balance 250.535 / -289.465 355.590 / 66.125 -1092 / -1092 Weight last 48 hrs Weight 87.8 kg Weight 89.358 kg Physical Exam 2 Narrative: Undergoing dialysis. Const: COMMON NORMALS: no acute distress, patient oriented x3 and alert G ENERAL APPEARANCE: cooperative ORIENTATION/CONSCIOUSNESS: Yes awake HENMT: COMMON NORMALS: oropharynx normal Neck/C-Spine: COMMON NORMALS: no JVD Resp: COMMON NORMALS: normal respiratory effort, No retractions, No use of accessory muscles and clear to auscultation bilaterally AUSCULTATION: clear to auscultation bilaterally and wheezes (Minimal wheeze RLL) Cardio: COMMON NORMALS: no JVD, regular rate, regular rhythm, S1 normal heart sound present, S2 normal heart sound present and No murmurs present (Cardio) RATE: regular rate RHYTHM: regular rhythm HEART SOUNDS: S1 normal heart sound present and S2 normal heart sound present GI: COMMON NORMALS: Normal to inspection, nondistended, normoactive bowel sounds present, Soft to palpation and non-tender PALPATION: Yes Soft to palpation Back/Pelvis: OTHER: Surgical site, right hip looks clean and dry Extremity: COMMON NORMALS: no joint enlargement and no pedal edema N ARRATIVE EXTREMITY EXAM: Everted RLE. Neuro: COMMON NORMALS: patient oriented x3 and moves all extremities S ENSORIUM/ORIENTATION: Yes alert Psych: COMMON NORMALS: mental status grossly normal Skin: COMMON NORMALS: no rashes or lesions noted NARRATIVE SKIN EXAM: Right arm swelling present, radial pulses palpable GENERAL SKIN EXAM: no rashes or lesions noted Data 02/06/25 04:04 02/06/25 04:04 A&P Assessment and plan 1. Atrial fibrillation with rapid ventricular response: - Transition to p.o. amiodarone - Transition to Eliquis 2. Closed fracture of right hip with delayed healing, subsequent encounter: - Status post surgical intervention - Pain control - Eliquis 3. Hyperkalemia: - Status post dialysis Plan: Acute pain due to injury : Pain control Atrial fibrillation on anticoagulation (apixaban) : - Eliquis - Amiodarone drip, with amiodarone bolus End-stage renal disease on hemodialysis : - Dialysis Chronic obstructive pulmonary disease (not in exacerbation) : COPD without current exacerbation - breathing treatments scheduled as needed for COPD. Hypertension : Chronic hypertension; ongoing home regimen referenced. - Continue diltiazem for blood pressure control. - Continue metoprolol for blood pressure control. Congestive heart failure (not in exacerbation) : - Continue furosemide (Lasix). Right upper extremity edema with reported prior venous thrombosis : Persistent right arm swelling with patient-reported prior venous thrombosis; on anticoagulation. - Elevate right upper extremity when possible. Recent cellulitis and cat scratch disease : Recent hospitalization for right arm cellulitis and cat scratch disease; improving without fevers at home. - Continue antibiotics as recently prescribed to complete the course. Constipation, bowel regimen Plan for the day: Goal blood pressure less than 140/90 mmHg with mean over 65. Most likely will start on midodrine 5 mg 3 times daily as needed on the day of dialysis for a systolic blood pressure of less than 120 mmHg. Heart rate controlled. For now we will continue with oral Cardizem 30 mg 3 times daily. Metoprolol for now on hold for soft blood pressures. Discontinue amiodarone drip. Will monitor heart rate. If needed will restart amiodarone at 400 mg twice daily. Continue with Eliquis 5 mg twice daily. As per review of chart patient was supposed to be on 3 days of azithromycin, 7 days of linezolid and metronidazole from 01/25. Patient has exceeded the number of days needed. For now we will hold off on antibiotics. Appreciate recent CTA of the arm from 01/25. Radial pulse palpable. Patient is to follow-up with vascular surgery as an outpatient. Physical therapy. Out of bed to chair. Discharge plan: Plan to discharge to SNF once available. Continue dialysis as per dialysis sessions from before. PDMP PDMP Reviewed: Not Reviewed Attestations 2 Medical Necessity Statement*: Requires further hospitalization while safe discharge planning is sought in a patient post ORIF, A-fib Diagnoses Atrial fibrillation with rapid ventricular response I48.91 Closed fracture of right hip with delayed healing, subsequent encounter S72.001G Encounter type: subsequent encounter Fracture healing: with delayed healing Hyperkalemia E87.5
[2025-02-06 12:45] LABS: Iron 68 ug/dL (59-158); Total Iron Binding Capacity 110 mcg/dl; Unsaturated Iron Binding 42 ug/dL (112-347)
[2025-02-06 13:00] LABS: Vitamin B12 421 pg/mL (232-1245)
[2025-02-06] MEDS: pantoprazole 40 mg SDV IVP (13:45)
--- NOTE | 2025-02-06 13:45 | PC.SOCIAL ---
IMM Update pg 2 of IMM Updated and reviewed w/ patient. Copy provided and copy dated, initialed and placed in chart.
[2025-02-06] MEDS: sennosides-docusate Tablet 2 TAB PO (17:07)
[2025-02-06] MEDS: polyethylene glycol 3350 Pkt 17 gm PO (17:11)
[2025-02-07] VITALS (28 sets, daily range): BP systolic 88–136; BP diastolic 51–83; PULSE 84–109; RESP 6–22; TEMP 36.6–37.3; O2SAT 95–98
[2025-02-07] MEDS: pantoprazole 40 mg SDV IVP ×2 (01:15→17:23)
[2025-02-07] MEDS: HYDROcodone-acetaminophen 5-325 mg Tablet 1 TAB PO ×2 (02:30→20:52)
[2025-02-07] MEDS: multivitamin therapeutic Tablet 1 TAB PO (04:19)
[2025-02-07] MEDS: HYDROmorphone 0.5 MG/0.5 ML INJ 0.2 MG IVP (04:20)
[2025-02-07] MEDS: polyethylene glycol 3350 Pkt 17 gm PO (04:25)
[2025-02-07] MEDS: sennosides-docusate Tablet 2 TAB PO (04:26)
--- NOTE | 2025-02-07 04:33 | PC.NURSE ---
Patient became argumentative and uncooperative when this nurse attempted to get patient to take morning laxatives. This nurse explained that the laxatives were to help patient have a bowel movement since patient had not had one for the entirety of the hospital stay and there was concern over this. Patient stated, I'm sick of people telling me what I'm going to do. I don't have to do anything I don't want to do. This nurse voiced agreement that patient could refuse whatever he wanted and stated that he could refuse his Miralax this morning. Patient agreed to take laxatives. Asked patient what he would like his Miralax mixed in and he stated water. Mixed Miralax in water and when attempting to give patient Miralax to drink, patient became verbally aggressive and argumentative and stated, That's not MY Miralax! You keep calling it MY Miralax and it's not MINE! There's just certain things I don't like to discuss with other people! You can go ahead and lose that attitude with me! This nurse attempted to verbally de-escalate patient with little success. Charge nurse Ceasar took over for this nurse and verbally de-escalated patient. Patient agreeable to take Miralax.
[2025-02-07 05:03] LABS: Hematocrit 38.0 % (37-53); Hemoglobin 11.80 g/dL (11.27-16.99); Mean Corpuscular HGB Conc 31.1 g/dL (30-55); Mean Corpuscular Hemoglobin 31.9 pg (27-33); Mean Corpuscular Volume 102.7 fl (82-101); Nucleated Red Blood Cells % 0.3 %; Platelet Count 172 10^3/cmm (157-399); Red Blood Count 3.70 10^6/uL (3.85-5.65); White Blood Count 7.26 10^3/uL (3.29-11.43)
[2025-02-07 05:33] LABS: Alanine Aminotransferase 6 U/L (0-41); Albumin Level 3.1 g/dL (3.5-5.2); Alkaline Phosphatase 152 U/L (40-130); Anion Gap 19.5 (5-19); Aspartate Amino Transferase 10 U/L (0-40); Blood Urea Nitrogen 35 mg/dL (6-20); Calcium 8.9 mg/dL (8.5-10.5); Carbon Dioxide 24 mmol/L (22-29); Chloride 97 mmol/L (98-107); Globulin 3.2 g/dL (1.3-4.6); Glucose 99 mg/dL (65-115); Osmolality Calculated 290 mOsm/kg (285-295); Potassium 4.5 mmol/L (3.5-5.1); Sodium 136 mmol/L (136-145); Total Protein 6.3 g/dL (6.6-8.7)
--- NOTE | 2025-02-07 08:46 | PC.NURSE ---
Agitation: Upon entering the room to do morning assessments, patient became upset and demanded a female nurse. THis nurse informed him that due to current staff, only a male nurse is available at this time. Patient became angry when nurse attempted to get a SPO2 probe on his finger. He refuses the monitoring. Patient refuses turning. Nurse attempted to get patient up to a chair and discuss ambulation later today, but he became angry with the suggestion. Nurse explained it will help with maintaining muscle strength post surgery, prevent pneumonia, and help him have a bowel movement. But this only made more agitated. Nurse attempted to explain general plan of care and discuss goals for the day, but patient became angry with this nurse and asked why do you guys have to talk about me not having a bowel movement . Nurse told patient that his constipation is an active problem during this stay, and we would not be providing proper care if we didn't try to address it. At this point the patient refused to discuss his care with the nurse any further. During this interaction patient was raising his voice, but was not yelling. Agitated but not physically aggressive.
--- NOTE | 2025-02-07 11:10 | P.PN_ITS ---
Subjective 2 Subjective: No acute events overnight. Patient has remained hemodynamically stable and afebrile. Having bursts of tachycardia with heart rate going up to 110s. Today morning examination laying comfortably in bed. States he feels angry and feels more and more anger is coming on to him. Does not feel agitated. Thinks he would do better with the psych evaluation and help. Denies any nausea, vomiting, headache, dizziness. Denies any hallucinations, homicidal or suicidal ideations. Vitals/I&O/Wt Last Vital Signs Temp 97.8 F 02/07/25 09:00 Pulse 93 02/07/25 09:00 Resp 10 L 02/07/25 09:00 BP 106/76 02/07/25 09:00 Pulse Ox 95 02/07/25 07:51 O2 Del Method Nasal Cannula 02/07/25 07:51 O2 Flow Rate 3 02/07/25 07:51 FiO2 40 02/03/25 20:09 02/06/25 02/07/25 02/07/25 22:59 06:59 14:59 Intake Total 720 / 1700 960 / 2660 Balance 720 / 108 960 / 1068 Weight last 48 hrs Weight 87.8 kg Physical Exam 2 Narrative: Undergoing dialysis. Const: COMMON NORMALS: no acute distress, patient oriented x3 and alert G ENERAL APPEARANCE: cooperative ORIENTATION/CONSCIOUSNESS: Yes awake OTHER: Wakes up to voice. HENMT: COMMON NORMALS: oropharynx normal Neck/C-Spine: COMMON NORMALS: no JVD Resp: COMMON NORMALS: normal respiratory effort, No retractions, No use of accessory muscles and clear to auscultation bilaterally AUSCULTATION: clear to auscultation bilaterally and wheezes (Minimal wheeze RLL) Cardio: COMMON NORMALS: no JVD, regular rate, regular rhythm, S1 normal heart sound present, S2 normal heart sound present and No murmurs present (Cardio) RATE: regular rate RHYTHM: regular rhythm HEART SOUNDS: S1 normal heart sound present and S2 normal heart sound present GI: COMMON NORMALS: Normal to inspection, nondistended, normoactive bowel sounds present, Soft to palpation and non-tender PALPATION: Yes Soft to palpation Back/Pelvis: OTHER: Surgical site, right hip looks clean and dry Extremity: COMMON NORMALS: no joint enlargement and no pedal edema N ARRATIVE EXTREMITY EXAM: Everted RLE. Neuro: COMMON NORMALS: patient oriented x3 and moves all extremities S ENSORIUM/ORIENTATION: Yes alert Psych: COMMON NORMALS: mental status grossly normal Skin: COMMON NORMALS: no rashes or lesions noted NARRATIVE SKIN EXAM: Right arm swelling present, radial pulses palpable GENERAL SKIN EXAM: no rashes or lesions noted Data 02/07/25 04:30 02/07/25 04:30 A&P Assessment and plan 1. Atrial fibrillation with rapid ventricular response: - Transition to p.o. amiodarone - Transition to Eliquis 2. Closed fracture of right hip with delayed healing, subsequent encounter: - Status post surgical intervention - Pain control - Eliquis 3. Hyperkalemia: - Status post dialysis Plan: Acute pain due to injury : Pain control Atrial fibrillation on anticoagulation (apixaban) : - Eliquis - Amiodarone drip, with amiodarone bolus End-stage renal disease on hemodialysis : - Dialysis Chronic obstructive pulmonary disease (not in exacerbation) : COPD without current exacerbation - breathing treatments scheduled as needed for COPD. Hypertension : Chronic hypertension; ongoing home regimen referenced. - Continue diltiazem for blood pressure control. - Continue metoprolol for blood pressure control. Congestive heart failure (not in exacerbation) : - Continue furosemide (Lasix). Right upper extremity edema with reported prior venous thrombosis : Persistent right arm swelling with patient-reported prior venous thrombosis; on anticoagulation. - Elevate right upper extremity when possible. Recent cellulitis and cat scratch disease : Recent hospitalization for right arm cellulitis and cat scratch disease; improving without fevers at home. - Continue antibiotics as recently prescribed to complete the course. Constipation, bowel regimen Plan for the day: Underwent dialysis yesterday. Blood pressure is better after dialysis finished. Heart rate stable. Having few episodes of tachycardia with RVR. For now start on amiodarone 400 mg twice daily. Will plan for 400 mg twice daily for 1 week followed by 200 mg twice daily for 1 week followed by 200 mg daily. Continue with oral Cardizem 30 mg 3 times daily. Unable to go higher on the dose given soft blood pressures. Hold off on metoprolol for now given soft blood pressures. Midodrine 5 mg 3 times daily as needed for systolic blood pressure less than 120 mmHg on the days of dialysis. Physical therapy. Out of bed to chair. Will consult Neuropsych Unit as per patient's request for anger management. Transfer to CSU. Discharge plan: Plan to discharge to SNF once available. Continue dialysis as per dialysis sessions from before. PDMP PDMP Reviewed: Not Reviewed Attestations 2 Medical Necessity Statement*: Requires further hospitalization while safe discharge planning is sought in a patient post ORIF, A-fib Diagnoses Atrial fibrillation with rapid ventricular response I48.91 Closed fracture of right hip with delayed healing, subsequent encounter S72.001G Encounter type: subsequent encounter Fracture healing: with delayed healing Hyperkalemia E87.5
--- NOTE | 2025-02-07 11:22 | PM.PN ---
Subjective Subjective: no new c/o Medications: Reviewed: Yes Vitals/I&O/Wt Last Vital Signs Temp 97.8 F 02/07/25 09:00 Pulse 93 02/07/25 09:00 Resp 10 L 02/07/25 09:00 BP 106/76 02/07/25 09:00 Pulse Ox 95 02/07/25 07:51 O2 Del Method Nasal Cannula 02/07/25 07:51 O2 Flow Rate 3 02/07/25 07:51 FiO2 40 02/03/25 20:09 02/06/25 02/07/25 02/07/25 22:59 06:59 14:59 Intake Total 720 / 1700 960 / 2660 Balance 720 / 108 960 / 1068 Weight last 48 hrs Weight 87.8 kg Physical Exam Narrative: Obese man in bed using nasal cannula oxygen vital signs noted. He is currently on hemodialysis and on Levophed. Vital signs noted. Back in sinus rhythm. Blood pressure on low side HEENT normocephalic atraumatic. Neck is supple Lungs have good air movement bilaterally Heart positive S1 and S2 . Abdomen is soft positive bowel sounds. Extremities -significant for right arm edema. 1+ leg edema Upper extremity AV fistula does not work. Patient has subclavian permacath. Neuro awake alert oriented x 3 Data 02/07/25 04:30 02/07/25 04:30 A&P Assessment and plan 1. ESRD on dialysis: 49-year-old gentleman 1. ESRD -patient has dialysis Thursday and Thursday. 2. A-fib with RVR rate control as per medicine and cardiology. 3. Status post hip surgery. Pain control with none nephrotoxic medications as per hospitalist. 4. Mild bleed with surgery hemoglobin down from 15.3 preoperative to 12.5 5. Patient on Eliquis for A-fib 6. Severe hyperphosphatemia improving with a phosphorus binder and hemodialysis 7. COPD 8. Heart failure with preserved ejection fraction. 9. Recent cat scratch disease and cellulitis continue antibiotics as per medical physician. 10. renal dose all abx for ESRD pt Patient was seen and examined using her visual primary date of her nurse. Patient consented to telehealth and to dialysis. Plan: See above. Hemodialysis. Wean off pressors as tolerated. PDMP PDMP Reviewed: Not Reviewed Attestations Medical Necessity Statement*: per [facility] Coding Level of Care Code Acute Code for [facility] Fwd Diagnoses ESRD on dialysis N18.6; Z99.2
--- NOTE | 2025-02-07 11:32 | PC.NURSE ---
Care Refusal: Physical therapist attempted to work with patient, but he refuses. Pain medication was offered prior to ambulation but he still refused. Patient said he would be willing to try at a later time today, but when asked about planning a specific time so he can be premedicated for pain, patient then refused to speak to staff.
[2025-02-07] MEDS: ondansetron 2 mg/ML SDV 2 mL 4 MG IVP (18:11)
[2025-02-08] VITALS (14 sets, daily range): BP systolic 86–209; BP diastolic 63–89; PULSE 79–106; RESP 12–20; TEMP 36.4–37.2; O2SAT 92–100
[2025-02-08] MEDS: pantoprazole 40 mg SDV IVP ×2 (05:10→16:32)
[2025-02-08] MEDS: polyethylene glycol 3350 Pkt 17 gm PO (05:10)
[2025-02-08] MEDS: multivitamin therapeutic Tablet 1 TAB PO (05:10)
[2025-02-08] MEDS: sennosides-docusate Tablet 2 TAB PO ×2 (05:10→16:31)
[2025-02-08 05:35] LABS: Hematocrit 35.9 % (37-53); Hemoglobin 11.30 g/dL (11.27-16.99); Mean Corpuscular HGB Conc 31.5 g/dL (30-55); Mean Corpuscular Hemoglobin 32.1 pg (27-33); Mean Corpuscular Volume 102.0 fl (82-101); Nucleated Red Blood Cells % 0 %; Platelet Count 174 10^3/cmm (157-399); Red Blood Count 3.52 10^6/uL (3.85-5.65); White Blood Count 7.72 10^3/uL (3.29-11.43)
[2025-02-08 05:53] LABS: Alanine Aminotransferase 6 U/L (0-41); Albumin Level 3.2 g/dL (3.5-5.2); Alkaline Phosphatase 152 U/L (40-130); Anion Gap 18.8 (5-19); Aspartate Amino Transferase 10 U/L (0-40); Blood Urea Nitrogen 52 mg/dL (6-20); Calcium 8.8 mg/dL (8.5-10.5); Carbon Dioxide 26 mmol/L (22-29); Chloride 96 mmol/L (98-107); Globulin 2.6 g/dL (1.3-4.6); Glucose 96 mg/dL (65-115); Osmolality Calculated 296 mOsm/kg (285-295); Potassium 4.8 mmol/L (3.5-5.1); Sodium 136 mmol/L (136-145); Total Protein 5.8 g/dL (6.6-8.7)
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
--- NOTE | 2025-02-08 08:50 | PC.NURSE ---
Patient left CSU for dialysis at 0840.
--- NOTE | 2025-02-08 11:31 | PC.OT ---
OT tx attempted at this time. Pt out of room for dialysis at this time. Will attempt tx again later if possible.
--- NOTE | 2025-02-08 11:59 | PC.SOCIAL ---
IMM Update pg 2 of IMM Updated and reviewed w/ patient. Copy provided and copy dated, initialed and placed in chart.
--- NOTE | 2025-02-08 12:23 | PC.NURSE ---
Patient returned from dialysis to CSU at 1224. SHAWNA Russell said that 2.5L was removed.
[2025-02-08] MEDS: HYDROcodone-acetaminophen 5-325 mg Tablet 1 TAB PO ×3 (13:15→22:21)
--- NOTE | 2025-02-08 14:19 | P.PN_ITS ---
Subjective 2 Subjective: No acute events overnight. Patient seen in CSU today. Denies any new complaints. Has remained hemodynamically stable and afebrile. Did require midodrine today morning prior to dialysis. Underwent dialysis without any events. Vitals/I&O/Wt Last Vital Signs Temp 97.7 F 02/08/25 13:34 Pulse 86 02/08/25 13:34 Resp 16 02/08/25 13:34 BP 209/71 02/08/25 13:34 Pulse Ox 100 02/08/25 07:51 O2 Del Method Nasal Cannula 02/08/25 07:51 O2 Flow Rate 3 02/08/25 07:51 FiO2 40 02/03/25 20:09 02/07/25 02/08/25 02/08/25 22:59 06:59 14:59 Intake Total 360 / 1860 240 / 2100 770 / 770 Output Total 3100 / 3100 Balance 360 / 1860 240 / 2100 -2330 / -2330 Weight last 48 hrs Weight 86.3 kg Weight 89 kg Physical Exam 2 Narrative: Undergoing dialysis. Const: COMMON NORMALS: no acute distress, patient oriented x3 and alert G ENERAL APPEARANCE: cooperative ORIENTATION/CONSCIOUSNESS: Yes awake OTHER: Wakes up to voice. HENMT: COMMON NORMALS: oropharynx normal Neck/C-Spine: COMMON NORMALS: no JVD Resp: COMMON NORMALS: normal respiratory effort, No retractions, No use of accessory muscles and clear to auscultation bilaterally AUSCULTATION: clear to auscultation bilaterally and wheezes (Minimal wheeze RLL) Cardio: COMMON NORMALS: no JVD, regular rate, regular rhythm, S1 normal heart sound present, S2 normal heart sound present and No murmurs present (Cardio) RATE: regular rate RHYTHM: regular rhythm HEART SOUNDS: S1 normal heart sound present and S2 normal heart sound present GI: COMMON NORMALS: Normal to inspection, nondistended, normoactive bowel sounds present, Soft to palpation and non-tender PALPATION: Yes Soft to palpation Back/Pelvis: OTHER: Surgical site, right hip looks clean and dry Extremity: COMMON NORMALS: no joint enlargement and no pedal edema N ARRATIVE EXTREMITY EXAM: Everted RLE. Neuro: COMMON NORMALS: patient oriented x3 and moves all extremities S ENSORIUM/ORIENTATION: Yes alert Psych: COMMON NORMALS: mental status grossly normal Skin: COMMON NORMALS: no rashes or lesions noted NARRATIVE SKIN EXAM: Right arm swelling present, radial pulses palpable GENERAL SKIN EXAM: no rashes or lesions noted Data 02/08/25 04:48 02/08/25 04:48 A&P Assessment and plan 1. Atrial fibrillation with rapid ventricular response: - Transition to p.o. amiodarone - Transition to Eliquis 2. Closed fracture of right hip with delayed healing, subsequent encounter: - Status post surgical intervention - Pain control - Eliquis 3. Hyperkalemia: - Status post dialysis Plan: Acute pain due to injury : Pain control Atrial fibrillation on anticoagulation (apixaban) : - Eliquis - Amiodarone drip, with amiodarone bolus End-stage renal disease on hemodialysis : - Dialysis Chronic obstructive pulmonary disease (not in exacerbation) : COPD without current exacerbation - breathing treatments scheduled as needed for COPD. Hypertension : Chronic hypertension; ongoing home regimen referenced. - Continue diltiazem for blood pressure control. - Continue metoprolol for blood pressure control. Congestive heart failure (not in exacerbation) : - Continue furosemide (Lasix). Right upper extremity edema with reported prior venous thrombosis : Persistent right arm swelling with patient-reported prior venous thrombosis; on anticoagulation. - Elevate right upper extremity when possible. Recent cellulitis and cat scratch disease : Recent hospitalization for right arm cellulitis and cat scratch disease; improving without fevers at home. - Continue antibiotics as recently prescribed to complete the course. Constipation, bowel regimen Plan for the day: Continue dialysis as per outpatient schedule. Continue with amiodarone 4 mg twice daily for now along with Cardizem. Depending on the heart rate we will plan to uptitrate Cardizem versus restart home metoprolol. Continue with physical therapy. Safe discharge planning. Awaiting neuropsych evaluation. Patient will most likely need a level 2 for discharge to SNF. If heart rate remains stable can plan to transfer to [facility] in next 24 hours. Discharge plan: Plan to discharge to SNF once available. Continue dialysis as per dialysis sessions from before. PDMP PDMP Reviewed: Not Reviewed Attestations 2 Medical Necessity Statement*: Requires further hospitalization while safe discharge planning is sought in a patient post ORIF, A-fib Diagnoses Atrial fibrillation with rapid ventricular response I48.91 Closed fracture of right hip with delayed healing, subsequent encounter S72.001G Encounter type: subsequent encounter Fracture healing: with delayed healing Hyperkalemia E87.5
--- NOTE | 2025-02-08 15:13 | PC.NURSE ---
PER VERBAL ORDER FROM DR ROSARIO, START PATIENT ON ZOLOFT, 50MG. GIVE ONE DOSE NOW AND THEN SCHEDULED. ORDER ENTERED BY H[employer] HELPER.
[2025-02-08] MEDS: HYDROmorphone 0.5 MG/0.5 ML INJ 0.2 MG IVP ×2 (15:30→20:44)
--- NOTE | 2025-02-08 15:51 | PC.NURSE ---
Patient was up with physical therapy and sat in a chair for about 4 hours. Patient has returned to bed at 1550.
--- NOTE | 2025-02-08 18:00 | P.PN_ITS ---
Subjective 2 Subjective: Getting HD Medications: Reviewed: Yes Vitals/I&O/Wt Last Vital Signs Temp 98.9 F 02/08/25 15:22 Pulse 79 02/08/25 15:22 Resp 20 H 02/08/25 15:22 BP 121/63 02/08/25 15:22 Pulse Ox 92 02/08/25 14:00 O2 Del Method Nasal Cannula 02/08/25 14:00 O2 Flow Rate 3 02/08/25 14:00 FiO2 40 02/03/25 20:09 02/08/25 02/08/25 02/08/25 06:59 14:59 22:59 Intake Total 240 / 2100 770 / 770 50 / 820 Output Total 3100 / 3100 Balance 240 / 2100 -2330 / -2330 50 / -2280 Weight last 48 hrs Weight 86.3 kg Weight 89 kg Physical Exam 2 Narrative: Obese man in bed using nasal cannula oxygen vital signs noted. He is currently on hemodialysis and on Levophed. Vital signs noted. Back in sinus rhythm. Blood pressure on low side HEENT normocephalic atraumatic. Neck is supple Lungs have good air movement bilaterally Heart positive S1 and S2 . Abdomen is soft positive bowel sounds. Extremities -significant for right arm edema. 1+ leg edema Upper extremity AV fistula does not work. Patient has subclavian permacath. Neuro awake alert oriented x 3 Data 02/08/25 04:48 02/08/25 04:48 A&P Assessment and plan 1. ESRD on dialysis: 49-year-old gentleman 1. ESRD- dialysis Thursday and Thursday. 2. A-fib with RVR rate control as per medicine and cardiology. 3. Status post hip surgery. Pain control with none nephrotoxic medications as per hospitalist. 4. Mild bleed with surgery hemoglobin down from 15.3 preoperative to 12.5 5. Patient on Eliquis for A-fib 6. Severe hyperphosphatemia improving with a phosphorus binder and hemodialysis 7. COPD 8. Heart failure with preserved ejection fraction. 9. Recent cat scratch disease and cellulitis continue antibiotics as per medical physician. 10. renal dose all abx for ESRD pt Patient was seen and examined using her visual primary date of her nurse. Patient consented to telehealth and to dialysis. Plan: See above. Hemodialysis. Wean off pressors as tolerated. PDMP PDMP Reviewed: Not Reviewed Attestations 2 Medical Necessity Statement*: per leo Coding Level of Care Code Acute Code for Chg Fwd Diagnoses ESRD on dialysis N18.6; Z99.2
[2025-02-09] VITALS (9 sets, daily range): BP systolic 100–152; BP diastolic 65–99; PULSE 88–112; RESP 10–30; TEMP 36.1–36.9; O2SAT 88–100; BMI 27.3
[2025-02-09] MEDS: multivitamin therapeutic Tablet 1 TAB PO (04:53)
[2025-02-09] MEDS: pantoprazole 40 mg SDV IVP ×2 (04:53→16:35)
[2025-02-09] MEDS: sennosides-docusate Tablet 2 TAB PO (04:54)
[2025-02-09] MEDS: HYDROcodone-acetaminophen 5-325 mg Tablet 1 TAB PO ×4 (04:54→20:37)
--- NOTE | 2025-02-09 11:59 | P.PN_ITS ---
Subjective 2 Subjective: no new c/o Medications: Reviewed: Yes Vitals/I&O/Wt Last Vital Signs Temp 96.9 F L 02/09/25 07:47 Pulse 93 02/09/25 08:00 Resp 18 02/09/25 08:00 BP 152/94 02/09/25 07:47 Pulse Ox 95 02/09/25 08:00 O2 Del Method Nasal Cannula 02/09/25 08:00 O2 Flow Rate 3 02/09/25 08:00 FiO2 40 02/03/25 20:09 02/08/25 02/09/25 02/09/25 22:59 06:59 14:59 Intake Total 110 / 880 480 / 480 Balance 110 / -2220 480 / 480 Weight last 48 hrs Weight 86.4 kg Weight 86.3 kg Weight 89 kg Physical Exam 2 Narrative: Obese man in bed using nasal cannula oxygen vital signs noted. Vital signs noted. Back in sinus rhythm. Blood pressure on low side HEENT normocephalic atraumatic. Neck is supple Lungs have good air movement bilaterally Heart positive S1 and S2 . Abdomen is soft positive bowel sounds. Extremities -significant for right arm edema. 1+ leg edema Upper extremity AV fistula does not work. Patient has subclavian permacath. Neuro awake alert oriented x 3 Data 02/08/25 04:48 02/08/25 04:48 A&P Assessment and plan 1. ESRD on dialysis: 49-year-old gentleman 1. ESRD- dialysis Thursday and Thursday. 2. A-fib with RVR rate control as per medicine and cardiology. 3. Status post hip surgery. Pain control with none nephrotoxic medications as per hospitalist. 4. Mild bleed with surgery hemoglobin down from 15.3 preoperative to 12.5 5. Patient on Eliquis for A-fib 6. Severe hyperphosphatemia improving with a phosphorus binder and hemodialysis 7. COPD 8. Heart failure with preserved ejection fraction. 9. Recent cat scratch disease and cellulitis continue antibiotics as per medical physician. 10. renal dose all abx for ESRD pt Patient was seen and examined using her visual primary date of her nurse. Patient consented to telehealth and to dialysis. Plan: See above. Hemodialysis. Wean off pressors as tolerated. PDMP PDMP Reviewed: Not Reviewed Attestations 2 Medical Necessity Statement*: per [facility] Coding Level of Care Code Acute Code for Chg Fwd Diagnoses ESRD on dialysis N18.6; Z99.2
[2025-02-09] MEDS: HYDROmorphone 0.5 MG/0.5 ML INJ 0.2 MG IVP (12:20)
[2025-02-09] MEDS: ondansetron 2 mg/ML SDV 2 mL 4 MG IVP ×2 (12:21→22:00)
--- NOTE | 2025-02-09 12:45 | P.PN_ITS ---
Subjective 2 Subjective: No new complaints. Awaiting placement. Denies any nausea, vomiting, headache. Mood stable. Vitals/I&O/Wt Last Vital Signs Temp 96.9 F L 02/09/25 07:47 Pulse 93 02/09/25 08:00 Resp 18 02/09/25 08:00 BP 152/94 02/09/25 07:47 Pulse Ox 95 02/09/25 08:00 O2 Del Method Nasal Cannula 02/09/25 08:00 O2 Flow Rate 3 02/09/25 08:00 FiO2 40 02/03/25 20:09 02/08/25 02/09/25 02/09/25 22:59 06:59 14:59 Intake Total 110 / 880 480 / 480 Balance 110 / -2220 480 / 480 Weight last 48 hrs Weight 86.4 kg Weight 86.3 kg Weight 89 kg Physical Exam 2 Narrative: Undergoing dialysis. Const: COMMON NORMALS: no acute distress, patient oriented x3 and alert G ENERAL APPEARANCE: cooperative ORIENTATION/CONSCIOUSNESS: Yes awake OTHER: Wakes up to voice. HENMT: COMMON NORMALS: oropharynx normal Neck/C-Spine: COMMON NORMALS: no JVD Resp: COMMON NORMALS: normal respiratory effort, No retractions, No use of accessory muscles and clear to auscultation bilaterally AUSCULTATION: clear to auscultation bilaterally and wheezes (Minimal wheeze RLL) Cardio: COMMON NORMALS: no JVD, regular rate, regular rhythm, S1 normal heart sound present, S2 normal heart sound present and No murmurs present (Cardio) RATE: regular rate RHYTHM: regular rhythm HEART SOUNDS: S1 normal heart sound present and S2 normal heart sound present GI: COMMON NORMALS: Normal to inspection, nondistended, normoactive bowel sounds present, Soft to palpation and non-tender PALPATION: Yes Soft to palpation Back/Pelvis: OTHER: Surgical site, right hip looks clean and dry Extremity: COMMON NORMALS: no joint enlargement and no pedal edema N ARRATIVE EXTREMITY EXAM: Everted RLE. Neuro: COMMON NORMALS: patient oriented x3 and moves all extremities S ENSORIUM/ORIENTATION: Yes alert Psych: COMMON NORMALS: mental status grossly normal Skin: COMMON NORMALS: no rashes or lesions noted NARRATIVE SKIN EXAM: Right arm swelling present, radial pulses palpable GENERAL SKIN EXAM: no rashes or lesions noted Data 02/08/25 04:48 02/08/25 04:48 A&P Assessment and plan 1. Atrial fibrillation with rapid ventricular response: - Transition to p.o. amiodarone - Transition to Eliquis 2. Closed fracture of right hip with delayed healing, subsequent encounter: - Status post surgical intervention - Pain control - Eliquis 3. Hyperkalemia: - Status post dialysis Plan: Acute pain due to injury : Pain control Atrial fibrillation on anticoagulation (apixaban) : - Eliquis - Amiodarone drip, with amiodarone bolus End-stage renal disease on hemodialysis : - Dialysis Chronic obstructive pulmonary disease (not in exacerbation) : COPD without current exacerbation - breathing treatments scheduled as needed for COPD. Hypertension : Chronic hypertension; ongoing home regimen referenced. - Continue diltiazem for blood pressure control. - Continue metoprolol for blood pressure control. Congestive heart failure (not in exacerbation) : - Continue furosemide (Lasix). Right upper extremity edema with reported prior venous thrombosis : Persistent right arm swelling with patient-reported prior venous thrombosis; on anticoagulation. - Elevate right upper extremity when possible. Recent cellulitis and cat scratch disease : Recent hospitalization for right arm cellulitis and cat scratch disease; improving without fevers at home. - Continue antibiotics as recently prescribed to complete the course. Constipation, bowel regimen Plan for the day: Continue with amiodarone 400 mg twice daily, Cardizem 30 mg 3 times daily. Blood pressure stable for now. Added Zoloft as per psych evaluation. PT. Dialysis as per nephrology evaluation Discharge planning. Discharge plan: Plan to discharge to SNF once available. Continue dialysis as per dialysis sessions from before. PDMP PDMP Reviewed: Not Reviewed Attestations 2 Medical Necessity Statement*: Requires further hospitalization while safe discharge planning is sought in a patient post ORIF, A-fib, end-stage renal disease on hemodialysis Diagnoses Atrial fibrillation with rapid ventricular response I48.91 Closed fracture of right hip with delayed healing, subsequent encounter S72.001G Encounter type: subsequent encounter Fracture healing: with delayed healing Hyperkalemia E87.5
--- NOTE | 2025-02-09 18:29 | P.NPUPN_ITS ---
Subjective NPU 2 Subjective: Patient presented today reporting things are fine. He denied any current issues or problems with the medication thus far. Not feeling any different but certainly not feeling any worse. We endorse a plan to continue to follow to identify improvement. Otherwise he denied any side effects to the medication. Mental Status Exam 2 MSE Comments: This is an overweight white male in hospital scrubs with limited grooming but adequate eye contact. No abnormal movements except for mild psychomotor retardation. Cooperative with exam in mild distress. Speech was decreased rate and volume. Mood described as overwhelmed, affect congruent. Thought process organized. Thought content: Patient denies suicidal or homicidal ideation, there were no delusions reported or noted, he denied any auditory or visual hallucinations. Reports feeling overwhelmed and having anxiety, describing a constant state of worry. Denies any suicidal ideation or thoughts of harming others, stating explicitly, I don't want to hurt myself or anyone else in any way, shape, form or fashion. Describes feelings of being tired and overwhelmed, which sometimes make tasks harder to accomplish. Stressors include a history of substance use and legal issues. Attention and concentration were intact and memory appeared mostly reliable but none were formally tested. He is alert and oriented x 3. Insight, judgment and impulse control appear fair. Vitals/I&O/Wt Last Vital Signs Temp 97.8 F 02/09/25 20:00 Pulse 89 02/09/25 20:00 Resp 20 H 02/09/25 20:00 BP 149/82 02/09/25 20:00 Pulse Ox 100 02/09/25 20:00 O2 Del Method Nasal Cannula 02/09/25 20:00 O2 Flow Rate 3 02/09/25 20:00 FiO2 40 02/03/25 20:09 02/09/25 14:59 Intake Total 720 / 720 Balance 720 / 720 Weight last 48 hrs Weight 87.7 kg Weight 86.4 kg Weight 86.3 kg Data NPU 02/08/25 04:48 02/08/25 04:48 A&P Assessment and plan 1. Anxiety disorder, unspecified: 2. Depression: Plan: This is a 49-year-old white male with a long history of addiction and some mental health challenges but limited active treatment who presents with significant stressors and challenges with his physical health as well as reports of things becoming overwhelming. Symptoms consistent with depression and anxiety and an openness to a trial of medication to assist with his symptoms. Overwhelmed feelings and increased anger attributed to recent stressors. Anxiety noted as a longstanding issue, described as persistent worry. No current diagnosis of depression, and no suicidal or homicidal ideation. History of substance use, including methamphetamine in early adulthood and alcohol use in the past, with prior inpatient treatment. Childhood behavioral issues consistent with attention difficulties, but no formal diagnosis of ADHD. History of traumatic experiences in childhood acknowledged. Plan Initiated pharmacotherapy for depression and anxiety with Zoloft, starting at 50 mg daily, as this SSRI is appropriate for patients on dialysis. Prescription of Zoloft was provided. Communication with the primary physician was planned regarding initiation of treatment. Scheduled follow-up visit for the next day to assess response and tolerability after the first dose. 1. Continue current medication. Add Zoloft 50 mg p.o. daily as treatment for depression and anxiety which is a wonderful option for personal dialysis with no need to adjust and no concerns with her being dialyzed. 2. No credible lethality. No need for acute/inpatient psychiatric care. 3. Will follow-up tomorrow to make sure that he is tolerating the medication. PDMP PDMP Reviewed: Not Reviewed Attestations NPU 2 Medical Necessity Statement*: N/A. Please see primary team note for medical necessity. Coding Level of Care Code Acute Code for Chg Fwd Diagnoses Anxiety disorder, unspecified F41.9 Depression F32.A
[2025-02-10] VITALS (9 sets, daily range): BP systolic 128–156; BP diastolic 72–93; PULSE 87–101; RESP 12–22; TEMP 36.3–37.1; O2SAT 93–99; BMI 27.7
[2025-02-10] MEDS: HYDROcodone-acetaminophen 5-325 mg Tablet 1 TAB PO ×5 (00:14→18:43)
[2025-02-10] MEDS: multivitamin therapeutic Tablet 1 TAB PO (05:56)
[2025-02-10] MEDS: ondansetron 2 mg/ML SDV 2 mL 4 MG IVP ×2 (08:51→16:30)
--- NOTE | 2025-02-10 09:10 | PM.DCS ---
Discharge Providers Date of Admission: 01/31/25 11:42 Date of Discharge: February 10, 2025 Attending Provider at Admission: Mukesh Salazar Attending Provider at Discharge: Lionel Day MD Consults: Orthopedics: Dr. Pérez Telemetry nephrology Neuropsych: Dr. Edwards Primary Care Provider: Ras Joy Diagnoses at Discharge Discharge Diagnosis 1. Anxiety disorder, unspecified: 2. Depression: Reason for Visit Reason for Visit: R Hip Pain Brief History: Per HPI Leopoldo Schaefer is a 49 year old man with history of atrial fibrillation on apixaban (Eliquis), hypertension, chronic obstructive pulmonary disease (COPD), end-stage renal disease (ESRD) on hemodialysis (Thursday/Thursday/Thursday), obstructive sleep apnea (GIGI), and congestive heart failure (CHF) who was brought by EMS after a fall at home. States he ?just fell? while returning from the kitchen; denies loss of consciousness or head injury. Reports legs are chronically weak. Did not have his cane. Reports acute right hip pain following the fall. Also notes chronic left shoulder pain that has worsened and right knee pain. Received 100 mcg intranasal fentanyl en route and intravenous hydromorphone in the emergency department. Uses a cane for ambulation but did not have it at the time of the fall. Denies chest pain, palpitations, dizziness, syncope, cough, sputum, nausea, vomiting, diarrhea, melena, hematochezia, or hematuria. Reports limited exertional tolerance?becomes short of breath crossing a room. Uses continuous oxygen at home (reports 5 L). In the ED, oxygen saturation reported as 92% on room air. He states that he was wearing his oxygen when he was ambulating. Recent hospitalization 01/23?01/25 for right arm cellulitis and cat scratch disease; discharged on antibiotics. Right upper extremity remains swollen; patient reports prior ultrasound showed clots in the arm. Last dose of apixaban (Eliquis) was taken last night. Lives with partner (Regine). Code status discussion documented in conversation: when asked about CPR if the heart stops, patient answered ?No?; stated ventilator would be acceptable temporarily if needed for severe pneumonia. Prior code status noted as full code in chart. States life partner would be surrogate decision maker in case he could not make his own decisions. Hospital Course Hospital Course Patient was admitted to the hospital further evaluation and management of intertrochanteric right hip fracture. Orthopedics was consulted by and he underwent ORIF on 02/03 after holding off on home dose of Eliquis.. Nephrology was consulted and he was continued on his home sessions of dialysis. His hospitalization was complicated by him developing A-fib with RVR for which he required amiodarone drip while his home dose of metoprolol was withheld given soft blood pressures. His blood pressures and heart rate has been stable on amiodarone and oral Cardizem. He has been requiring midodrine on and off for systolic blood pressure of less than 120 on nondialysis days. Safe discharge plan were discussed in detail with the patient and he requested to be transition to acute rehab versus SNF. Patient was declined for acute rehab by insurance and is being transferred to SNF for further rehabitation. Physical Exam Narrative: Undergoing dialysis. Const: COMMON NORMALS: no acute distress, patient oriented x3 and alert GENERAL APPEARANCE: cooperative ORIENTATION/CONSCIOUSNESS: Yes awake OTHER: Wakes up to voice. HENMT: COMMON NORMALS: oropharynx normal Neck/C-Spine: COMMON NORMALS: no JVD Resp: COMMON NORMALS: normal respiratory effort, No retractions, No use of accessory muscles and clear to auscultation bilaterally AUSCULTATION: clear to auscultation bilaterally and wheezes (Minimal wheeze RLL) Cardio: COMMON NORMALS: no JVD, regular rate, regular rhythm, S1 normal heart sound present, S2 normal heart sound present and No murmurs present (Cardio) RATE: regular rate RHYTHM: regular rhythm HEART SOUNDS: S1 normal heart sound present and S2 normal heart sound present GI: COMMON NORMALS: Normal to inspection, nondistended, normoactive bowel sounds present, Soft to palpation and non-tender PALPATION: Yes Soft to palpation Back/Pelvis: OTHER: Surgical site, right hip looks clean and dry Extremity: COMMON NORMALS: no joint enlargement and no pedal edema NARRATIVE EXTREMITY EXAM: Everted RLE. Neuro: COMMON NORMALS: patient oriented x3 and moves all extremities SENSORIUM/ORIENTATION: Yes alert Psych: COMMON NORMALS: mental status grossly normal Skin: COMMON NORMALS: no rashes or lesions noted NARRATIVE SKIN EXAM: Right arm swelling present, radial pulses palpable GENERAL SKIN EXAM: no rashes or lesions noted Discharge Data Studies Completed and Pending Completed Studies During Hospitalization Category Date Time Status CT abdomen pelvis wo con [id number] Routine Cat Scan 02/05/25 15:39 Completed XR chest 1V portable [id number] Stat Exams 01/31/25 10:35 Completed XR hip RT 2-3V wo/w pel* [id number] Routine Exams 02/03/25 13:42 Completed XR hip RT 2-3V wo/w pel* [id number] Stat Exams 01/31/25 10:18 Completed Radiology Impressions Chest X-Ray 01/31/25 10:35 Impression: Cardiomegaly. Hip/Pelvis X-Ray 02/03/25 13:42 IMPRESSION: Postsurgical changes status post right hip arthroplasty. Abdomen/Pelvis CT 02/05/25 15:39 IMPRESSION: 1. Circumferential thickening of the distal esophagus and small hiatal hernia which is nonspecific but can be seen in esophagitis. 2. Biliary sludge. No CT evidence of acute cholecystitis. COMMENTS: Consistent with the [employer]'s Incidental Findings Committee white paper (J Am Santos Radiol 2018): Any incidental renal lesion less than 1 cm or classified as too small to characterize, or any incidental cystic renal lesion characterized as simple-appearing, is likely benign. No follow-up imaging is recommended for these lesions per consensus recommendations based on imaging criteria. Laboratory Results WBC 7.72 10^3/uL (3.29-11.43) 02/08/25 04:48 RBC 3.52 10^6/uL (3.85-5.65) L 02/08/25 04:48 Hgb 11.30 g/dL (11.27-16.99) 02/08/25 04:48 Hct 35.9 % (37-53) L 02/08/25 04:48 MCV 102.0 fl (82-101) H 02/08/25 04:48 MCH 32.1 pg (27-33) 02/08/25 04:48 MCHC 31.5 g/dL (30-55) 02/08/25 04:48 RDW 14.2 % (12.1-15.1) 02/08/25 04:48 Plt Count 174 10^3/cmm (157-399) 02/08/25 04:48 MPV 9.7 fL (7.4-10.4) 02/08/25 04:48 Neut % (Auto) 73.7 % 02/08/25 04:48 Lymph % (Auto) 8.9 % 02/08/25 04:48 [place] % (Auto) 11.7 % 02/08/25 04:48 Eos % (Auto) 4.9 % 02/08/25 04:48 Baso % (Auto) 0.4 % 02/08/25 04:48 Neut # (Auto) 5.69 10^3/uL (1.8-7.7) 02/08/25 04:48 Lymph # (Auto) 0.7 10^3/uL (0.8-4.8) L 02/08/25 04:48 [place] # (Auto) 0.9 10^3/uL (0.2-0.9) 02/08/25 04:48 Eos # (Auto) 0.4 10^3/uL (0.0-0.8) 02/08/25 04:48 Baso # (Auto) 0.0 10^3/uL (0.0-0.1) 02/08/25 04:48 Nucleated RBC % (auto) 0 % 02/08/25 04:48 Nucleated RBCs # 0.0 /100WBC 02/08/25 04:48 PT 16.40 SECONDS (12.1-14.9) H 01/31/25 10:59 INR 1.23 (0.8-1.2) H 01/31/25 10:59 APTT 66.2 SECONDS (23.9-36.7) H 02/03/25 02:39 Specimen Type Arterial 02/03/25 22:18 Sample Site Radial, left 02/03/25 22:18 ABG pH 7.36 (7.35-7.45) 02/03/25 22:18 ABG pCO2 46.1 mmHg (35-45) H 02/03/25 22:18 ABG pO2 107.0 mmHg (80.0-100.0) H 02/03/25 22:18 ABG PO2/FiO2 Ratio 267 02/03/25 22:18 ABG HCO3 25.9 mmol/L (22-26) 02/03/25 22:18 ABG O2 Saturation 98.6 02/03/25 22:18 ABG Base Excess -0.1 mmol/L (-2.0-2.0) 02/03/25 22:18 Shantanu Test Pos 02/03/25 22:18 A-a O2 Gradient 15.3 mmHg (5-10) H 02/03/25 22:18 Hematocrit 43.9 % (42-52) 02/03/25 22:18 Hgb O2 Saturation 96.1 % (95-100) 02/03/25 22:18 Carboxyhemoglobin 1.4 %THgb (0.4-20.1) 02/03/25 22:18 Methemoglobin 1.1 % (0.4-1.5) 02/03/25 22:18 Total Hemoglobin 14.3 g/dL (14-18) 02/03/25 22:18 Sodium 135.0 mmol/L (131-143) 02/03/25 22:18 Potassium 4.6 mmol/L (3.5-5.0) 02/03/25 22:18 Glucose 105.0 mg/dL (70-115) 02/03/25 22:18 Ionized Calcium 1.2 mmol/L (1.1-1.4) 02/03/25 22:18 O2 Delivery Device Bipap 02/03/25 22:18 O2 Liters/Min 5.0 % 02/03/25 18:36 FiO2 40.0 % 02/03/25 22:18 Tidal Volume 0.40 02/03/25 14:35 PEEP 5.0 cmH20 02/03/25 14:35 Electrolysis Engineer ID [id number] 02/03/25 22:18 Sodium 136 mmol/L (136-145) 02/08/25 04:48 Potassium 4.8 mmol/L (3.5-5.1) 02/08/25 04:48 Chloride 96 mmol/L (98-107) L 02/08/25 04:48 Carbon Dioxide 26 mmol/L (22-29) 02/08/25 04:48 Anion Gap 18.8 (5-19) 02/08/25 04:48 BUN 52 mg/dL (6-20) H 02/08/25 04:48 Creatinine 7.4 mg/dL (0.7-1.2) H* 02/08/25 04:48 GFR Calculation 7.8 mL/min (90-130) L 02/08/25 04:48 Glucose 96 mg/dL (65-115) 02/08/25 04:48 POC Glucose 128 mg/dL (70-110) H 01/31/25 12:40 Calculated Osmolality 296 mOsm/kg (285-295) H 02/08/25 04:48 Calcium 8.8 mg/dL (8.5-10.5) 02/08/25 04:48 Phosphorus 7.9 mg/dL (2.5-4.5) H* 02/06/25 04:04 Magnesium 2.2 mg/dL (1.7-2.3) 02/06/25 04:04 Iron 68 ug/dL (59-158) 02/06/25 12:18 TIBC 110 mcg/dl 02/06/25 12:18 % Saturation 61.8 % (20-50) H 02/06/25 12:18 Unsat Iron Binding 42 ug/dL (112-347) L 02/06/25 12:18 Total Bilirubin 0.4 mg/dL (0.15-1.2) 02/08/25 04:48 AST 10 U/L (0-40) 02/08/25 04:48 ALT 6 U/L (0-41) 02/08/25 04:48 Alkaline Phosphatase 152 U/L (40-130) H 02/08/25 04:48 Total Protein 5.8 g/dL (6.6-8.7) L 02/08/25 04:48 Albumin 3.2 g/dL (3.5-5.2) L 02/08/25 04:48 Globulin 2.6 g/dL (1.3-4.6) 02/08/25 04:48 Vitamin B12 421 pg/mL (232-1245) 02/06/25 12:18 Folate 6.1 ng/mL (4.5-32.2) 02/07/25 04:30 Vitals Last Vital Signs Temp 97.4 F L 02/10/25 07:37 Pulse 95 02/10/25 07:37 Resp 12 02/10/25 07:37 BP 143/75 02/10/25 07:37 Pulse Ox 99 02/10/25 07:15 O2 Del Method Nasal Cannula 02/10/25 07:15 O2 Flow Rate 3 02/10/25 07:15 FiO2 40 02/03/25 20:09 Discharge Plan Discharge Patient Disposition: Xfer SNF Condition: Stable Prescriptions: New polysaccharide iron complex [Ferrex 150] 150 mg iron Capsule 150 mg PO BIDWM Qty: 60 0RF midodrine 5 mg Tablet 5 mg PO TID PRN (Reason: SBP Less than 120 on dialysis days) Qty: 20 0RF Rx Instructions: For SBP of less than 120 mmhg sertraline 50 mg Tablet 50 mg PO DAILY Qty: 30 0RF amiodarone [Pacerone] 200 mg Tablet 400 mg PO BID Qty: 60 0RF Rx Instructions: 400 mg twice daily for 1 week followed by 200 mg twice daily for 1 week followed by 200 mg daily Continued trazodone 150 mg tablet 150 mg PO BEDTIME furosemide 80 mg tablet 80 mg PO BID Qty: 60 0RF atorvastatin 40 mg Tablet 40 mg PO BEDTIME 30 Days Qty: 30 0RF diltiazem HCl 120 mg Capsule,Extended Release 24hr 120 mg PO DAILY 30 Days Qty: 30 0RF Eliquis 5 mg Tablet 5 mg PO BID@0900,2100 30 Days Qty: 60 0RF aspirin 81 mg Tablet,Delayed Release (Dr/Ec) 81 mg PO DAILY 30 Days Qty: 30 0RF Discontinued metoprolol succinate 25 mg Tablet Extended Release 24 Hr 25 mg PO DAILY 30 Days Qty: 30 0RF metronidazole 500 mg tablet 500 mg PO Q8H 7 Days Qty: 21 0RF linezolid [Zyvox] 600 mg tablet 600 mg PO BID 7 Days Qty: 14 0RF azithromycin 250 mg tablet 250 mg PO BIDWM Discharge Order = DC NOW: Discharge Order (Routine); Ordered 02/10/25 Ordered By: Lionel Day Referrals: [facility] [Other] Ras Joy [Primary Care Provider, Family Practice] Patient Instructions: Depression, Iron Supplements (By mouth), Sertraline (By mouth), Midodrine (By mouth), Hyperkalemia, Acute Wound Care (DC), End Stage Kidney Disease (IP), Opioid Safety, Post Anesthesia Care, Patient Portal & Ramonita Instructions Activity Restrictions/Additional Instructions: Continue with amiodarone 400 mg twice daily for 1 week followed by 200 mg twice daily for 1 week followed by 200 mg daily. Take midodrine 5 mg 3 times a day as needed for systolic blood pressure of less than 120 mmHg. Continue home dose of Cardizem 120 mg daily. Discharge Attestations Time Spent in Discharge Care*: greater than 30 min Specific Discharge Activities: educating patient, discussing with pcp/other providers, discussing with social work case manager/social workers/dc planners, documenting/other paperwork and evaluating patient/reviewing data Status at Discharge: Cognitive status at discharge: cognitively intact, Behavioral status at discharge: cooperative, Functional status at discharge: other assisted ambulation, Overall status at discharge: patient is progressing back to baseline Quality Metrics Clinical Quality Measures [ No reported AMI, CVA or VTE this stay] Coding Level of Care Code 83529 Total time (in minutes) for Discharge: 65 Diagnoses Anxiety disorder, unspecified F41.9 Depression F32.A
--- NOTE | 2025-02-10 09:13 | PC.NURSE ---
Patient is leaving the unit for dialysis.
--- NOTE | 2025-02-10 11:35 | PC.SOCIAL ---
IMM Update pg 2 of IMM Updated and reviewed w/ patient. Copy provided and copy dated, initialed and placed in chart.
--- NOTE | 2025-02-10 12:46 | PC.NURSE ---
Patient returned to [facility] from dialysis.
--- NOTE | 2025-02-10 13:20 | P.PN_ITS ---
Subjective 2 Subjective: getting HD Medications: Reviewed: Yes Vitals/I&O/Wt Last Vital Signs Temp 98.0 F 02/10/25 12:00 Pulse 94 02/10/25 12:00 Resp 22 H 02/10/25 12:00 BP 140/72 02/10/25 12:00 Pulse Ox 99 02/10/25 07:15 O2 Del Method Nasal Cannula 02/10/25 07:15 O2 Flow Rate 3 02/10/25 07:15 FiO2 40 02/03/25 20:09 02/09/25 02/10/25 02/10/25 22:59 06:59 14:59 Intake Total 960 / 1680 Balance 960 / 1680 Weight last 48 hrs Weight 87.7 kg Weight 86.4 kg Weight 86.3 kg Physical Exam 2 Narrative: Obese man in bed using nasal cannula oxygen vital signs noted. Vital signs noted. Back in sinus rhythm. Blood pressure on low side HEENT normocephalic atraumatic. Neck is supple Lungs have good air movement bilaterally Heart positive S1 and S2 . Abdomen is soft positive bowel sounds. Extremities -significant for right arm edema. 1+ leg edema Upper extremity AV fistula does not work. Patient has subclavian permacath. Neuro awake alert oriented x 3 Data 02/08/25 04:48 02/08/25 04:48 A&P Assessment and plan 1. ESRD on dialysis: 49-year-old gentleman 1. ESRD- dialysis Thursday and Thursday. 2. A-fib with RVR rate control as per medicine and cardiology.on eliquis 3. Status post hip surgery. Pain control with none nephrotoxic medications as per hospitalist. 4. Severe hyperphosphatemia improving with a phosphorus binder and hemodialysis 5. COPD 6. Heart failure with preserved ejection fraction. 7. Recent cat scratch disease and cellulitis continue antibiotics as per medical physician. Patient was seen and examined using her visual primary date of her nurse. Patient consented to telehealth and to dialysis. Plan: See above. Hemodialysis. Wean off pressors as tolerated. PDMP PDMP Reviewed: Not Reviewed Attestations 2 Medical Necessity Statement*: per medicien Coding Level of Care Code Acute Code for Chg Fwd Diagnoses ESRD on dialysis N18.6; Z99.2
--- NOTE | 2025-02-10 13:38 | PC.NURSE ---
Report is called to SHAWNA Palencia, at [facility] in [place].
--- NOTE | 2025-02-10 14:56 | PC.NURSE ---
Discharge is delayed due to transportation. He is on the list with [facility].
[2025-02-10] MEDS: pantoprazole 40 mg SDV IVP (16:48)
--- NOTE | 2025-02-10 19:16 | PC.NURSE ---
Patient left for [facility] per EMS. Discharge packet sent with EMS.
== END 2025-02-10 19:05 | disposition skilled nursing facility (03) | DRG 521 ==
LOC: ER 10:26 → MEDSURG 11:43 → ICU 02-03 14:25 → CSU 02-07 12:32
PROVIDERS: Internal Medicine; Internal Medicine Nephrology; Orthopaedic Surgery; Student in an Organized Health Care Education/Training Program; Admitting Provider Internal Medicine; Emergency Provider Emergency Medicine; PCP Family Medicine; Visit Provider Student in an Organized Health Care Education/Training Program
DX: S72.001A Fracture of unspecified part of neck of right femur, initial encounter for closed fracture (principal); N18.6 End stage renal disease; I50.32 Chronic diastolic (congestive) heart failure; I13.2 Hypertensive heart and chronic kidney disease with heart failure and with stage 5 chronic kidney disease, or end stage renal disease; L03.113 Cellulitis of right upper limb; A28.1 Cat-scratch disease; I48.20 Chronic atrial fibrillation, unspecified; W01.0XXA Fall on same level from slipping, tripping and stumbling without subsequent striking against object, initial encounter; Z99.2 Dependence on renal dialysis; Z79.01 Long term (current) use of anticoagulants; G47.33 Obstructive sleep apnea (adult) (pediatric); Y92.009 Unspecified place in unspecified non-institutional (private) residence as the place of occurrence of the external cause; Z99.81 Dependence on supplemental oxygen; Z79.82 Long term (current) use of aspirin; K21.9 Gastro-esophageal reflux disease without esophagitis; J44.9 Chronic obstructive pulmonary disease, unspecified; E87.5 Hyperkalemia; Z86.718 Personal history of other venous thrombosis and embolism; E83.39 Other disorders of phosphorus metabolism; K59.00 Constipation, unspecified; R11.2 Nausea with vomiting, unspecified; F17.210 Nicotine dependence, cigarettes, uncomplicated; E66.3 Overweight; Z68.27 Body mass index [BMI] 27.0-27.9, adult; F32.A Depression, unspecified; F41.9 Anxiety disorder, unspecified
CPT/HCPCS: 36415; 36416; 36600; 71045; 73502; 74176; 80048; 80051; 80053; 82330; 82607; 82746; 82805; 82962; 83540; 83550; 83735; 84100; 84132; 85025; 85610; 85730; 90935; 93005; 94640; 94660; 94799; 96374; 96375; 97110; 97116; 97161; 97166; 97530; 97535; 99214; 99285; C1776; J0282; J0283; J0612; J1100; J1171; J1644; J1815; J1885; J1938; J2270; J2405; J2470; J2704; J3010; J3490; J7030; J7799; J9999; P9045; P9047; Q0144; Q3014